=== PATIENT | female | born 1965 | race Caucasian/White ===

== ENCOUNTER 2017-05-26 09:18 | Day surgery (SDC) | payer OTHER ==
[2017-05-26] MEDS ORDERED: Sodium Chloride 0.9% 10 ML ONE (09:30)
[2017-05-26] MEDS ORDERED: Albumin 25% 200 ML ONE (11:00)
[2017-05-26 13:19] VITALS: BMI 25.3
[2017-05-26 13:27] VITALS: TEMP 97.8
[2017-05-26 13:29] VITALS: BP 88/55
--- NOTE | 2017-05-26 13:34 | ULT ---
ULTRASOUND GUIDED PARACENTESIS: HISTORY: Ascites. COMPARISON: 05/19/17. FINDINGS: Technically successful ultrasound paracentesis. A total of 5300 mL of yellow color ascites is remov ed. No immediate or post procedure complications. TECHNIQUE: Consent was obtained to perform an ultrasound-guided paracentesis. The right lower quadrant was amber med appropriate. The skin was prepped and draped in sterile fashion. 1% Lidocaine, buffered with s odium bicarbonate, was used for local anesthesia. Under ultrasound guidance, a 5 Estonian 7 cm Yueh c atheter was advanced into the peritoneal space. A total of 5,300 mL of yellow color ascites was asp irated. The patient tolerated the procedure well. No immediate or post procedure complications. IMPRESSION: Technically successful ultrasound-guided paracentesis. POS: [facility]
== END 2017-05-26 10:55 | disposition home or self-care (01) ==
LOC: ULT 09:18
PROVIDERS: ATTEND Internal Medicine Gastroenterology
PROC: 0W9G3ZX Drainage of Peritoneal Cavity, Percutaneous Approach, Diagnostic (ICD-10-PCS; principal; 2017-05-26)
DX: R18.8 Other ascites (principal); K74.60 Unspecified cirrhosis of liver; E11.9 Type 2 diabetes mellitus without complications; K72.90 Hepatic failure, unspecified without coma; J45.909 Unspecified asthma, uncomplicated; F17.210 Nicotine dependence, cigarettes, uncomplicated; Z88.2 Allergy status to sulfonamides; Z88.5 Allergy status to narcotic agent; Z88.0 Allergy status to penicillin; Z88.1 Allergy status to other antibiotic agents; Z79.899 Other long term (current) drug therapy; Z90.49 Acquired absence of other specified parts of digestive tract; Z90.89 Acquired absence of other organs; Z98.890 Other specified postprocedural states
CPT/HCPCS: 49083; A4216; P9047

== ENCOUNTER 2017-06-02 09:26 | Day surgery (SDC) | payer OTHER ==
[2017-06-01 13:53] VITALS: BMI 29.0
[~2017-06-02 09:26] MED LIST: FLU VACC QS2017-18 36 mo. & older 0.5 ML SYRINGE IM ONE
[2017-06-02] MEDS ORDERED: Albumin 25% 200 ML ONE (10:09)
[2017-06-02 12:01] VITALS: TEMP 97.7
[2017-06-02 12:04] VITALS: BP 92/56
--- NOTE | 2017-06-02 12:35 | ULT ---
ULTRASOUND-GUIDED PARACENTESIS: CLINICAL INDICATION: Ascites. PROCEDURE: After informed consent had been obtained, the patient was escorted to the ultrasound suite and place d in a supine position. The abdomen was imaged which revealed adequate ascites for the procedure. The skin of the abdomen was then prepped and draped in the standard sterile fashion and the skin nessa face, subcutaneous tissues, and peritoneal lining of the abdomen were anesthetized with 1% Lidocaine buffered with sodium bicarbonate. A left quadrant approach was selected. A small skin incision wa s made at the site of topical anesthesia. Subsequently, under real-time ultrasound guidance a iCenteraeh catheter was advanced through the incision site into the peritoneal cavity. Ascites was present at the catheter hub. The catheter was then secured to vacuum sealed sterile containers, via sterile tu jose r and subsequently 7 L of ascites was drained from the patient. The patient was then removed fro m the patient. The patient tolerated the procedure well without evidence of complication. Post pro cedure imaging revealed no complication and interval reduction in volume of ascites. The patient wa s monitored by a radiology nurse and was stable in condition. IMPRESSION: Technically successful ultrasound-guided paracentesis, as above. POS: [facility]
--- NOTE | 2017-06-02 12:38 | ULT ---
HEPATIC DOPPLER ULTRASOUND: Clinical history: Cirrhosis. FINDINGS: There is heterogenous echotexture of the hepatic parenchyma. No obvious focal hepatic lesion. The sp garrison is enlarged measuring 17 cm in length. There is evidence of intraabdominal ascites. Nodular, ci rrhotic morphology of the hepatic periphery is present. Gallbladder is surgically absent. Common polly t is normal at 5 mm. Doppler assessment shows appropriate directionality of flow and patency of hepa tic and portal venous system. IVC is patent. There is flow demonstrated within the hepatic and splen ic arteries. The region of the portal confluence as well as the abdominal aorta are obscured by kai l activity. IMPRESSION: 1. Cirrhotic morphology of the liver. 2. Patency and appropriate direction of flow of the hepatic and portal venous systems. 3. Ascites. 4. Splenomegaly indicative of portal hypertension. POS: [facility]
== END 2017-06-02 11:55 | disposition home or self-care (01) ==
LOC: ULT 09:26
PROVIDERS: ATTEND Internal Medicine Gastroenterology
PROC: 0W9G3ZX Drainage of Peritoneal Cavity, Percutaneous Approach, Diagnostic (ICD-10-PCS; principal; 2017-06-02)
DX: R18.8 Other ascites (principal); K74.60 Unspecified cirrhosis of liver; K72.90 Hepatic failure, unspecified without coma; N18.9 Chronic kidney disease, unspecified; K21.9 Gastro-esophageal reflux disease without esophagitis; J45.909 Unspecified asthma, uncomplicated; Z88.0 Allergy status to penicillin; Z88.5 Allergy status to narcotic agent; Z88.2 Allergy status to sulfonamides; Z88.1 Allergy status to other antibiotic agents; Z87.891 Personal history of nicotine dependence; Z79.899 Other long term (current) drug therapy; Z90.49 Acquired absence of other specified parts of digestive tract; Z98.890 Other specified postprocedural states; Z98.891 History of uterine scar from previous surgery
CPT/HCPCS: 49083; 76705; P9047

== ENCOUNTER → 2017-06-09 | Day surgery (SDC) | payer OTHER ==
[2017-06-08 08:27] VITALS: BMI 29.0
[~2017-06-09] MED LIST changes: +Albumin 25% 200 ML ONE
[2017-06-09 11:50] VITALS: TEMP 98.2
--- NOTE | 2017-06-09 13:32 | ULT ---
ULTRASOUND GUIDED PARACENTESIS THERAPEUTIC: 06/09/2017 HISTORY: A 51-year-old female with ascites due to cirrhosis. TECHNIQUE: Signed informed consent obtained. Four quadrant abdominal survey performed. Right lower quadrant s elected. Overlying skin prepared and draped in the usual sterile fashion. A 25 gauge needle was us ed to apply buffered Lidocaine superficially and deeply. A 5 Burundian Yueh catheter with stylet was a dvanced in tandem with the 25 gauge needle, into the peritoneal cavity. The 25 gauge needle and the stylet from the Yueh were removed. The Yueh catheter was connected to a series of evacuated bottle s via plastic tubing. A total of 6100 mL of nonhemorrhagic, straw-colored ascites fluid was drained . The Yueh catheter was removed. The patient tolerated the procedure well. No complications. FINDINGS: Prior to the procedure, a moderate to large amount of free intraperitoneal fluid is demonstrated. Th e post procedure single image of the right lower quadrant demonstrates no residual free fluid in vasile t location. IMPRESSION: Successful therapeutic paracentesis with drainage of 6.1 L of ascites fluid. POS: [facility]
== END ==
LOC: ULT 08:29
PROVIDERS: ATTEND Internal Medicine Gastroenterology
PROC: 0W9G3ZX Drainage of Peritoneal Cavity, Percutaneous Approach, Diagnostic (ICD-10-PCS; principal; 2017-06-09)
DX: R18.8 Other ascites (principal); K74.60 Unspecified cirrhosis of liver; F17.210 Nicotine dependence, cigarettes, uncomplicated; Z88.2 Allergy status to sulfonamides; Z88.5 Allergy status to narcotic agent; Z88.0 Allergy status to penicillin; Z88.1 Allergy status to other antibiotic agents; Z79.899 Other long term (current) drug therapy
CPT/HCPCS: 49083; P9047

== ENCOUNTER 2017-06-16 09:00 | Day surgery (SDC) | payer OTHER ==
[2017-06-16] MEDS ORDERED: Albumin 25% 200 ML ONE (11:25)
[2017-06-16] MEDS ORDERED: Sodium Chloride 0.9% 10 ML ONE (11:26)
[2017-06-16 11:59] VITALS: TEMP 97.6
[2017-06-16 12:01] VITALS: BMI 29.0
[2017-06-16 12:03] VITALS: BP 83/52
--- NOTE | 2017-06-16 13:42 | ULT ---
EXAM: ULTRASOUND GUIDED PARACENTESIS: HISTORY: Ascites. COMPARISON: 06/09/17. FINDINGS: Technically successful ultrasound-guided paracentesis. A total of 6,600 mL of yellow-colored ascite s was aspirated. The patient tolerated the procedure well. No immediate or postprocedure complicat ions. TECHNIQUE: Consent was obtained to perform an ultrasound-guided paracentesis. The patient's abdomen was evalua cassie. The right lower quadrant was deemed appropriate. The skin was prepped and draped in sterile f ashion. 1% Lidocaine, buffered with sodium bicarbonate, was used for local anesthesia. Under ultra sound guidance, a 7 cm 5 Macedonian InferXeh catheter was advanced into the peritoneal space. Via vacuum geovani ttles, a total of 6,600 mL of yellow-colored ascites was aspirated. The patient tolerated the proce dure well. No immediate or postprocedure complications. IMPRESSION: Technically successful ultrasound-guided paracentesis. POS: [facility]
[2017-06-16] MEDS ORDERED: FLU VACC QS2017-18 36 mo. & older 0.5 ML SYRINGE IM ONE (14:00)
== END 2017-06-16 11:10 | disposition home or self-care (01) ==
LOC: ULT 09:00
PROVIDERS: ATTEND Internal Medicine Gastroenterology
PROC: 0W9G3ZX Drainage of Peritoneal Cavity, Percutaneous Approach, Diagnostic (ICD-10-PCS; principal; 2017-06-16)
DX: R18.8 Other ascites (principal); K74.60 Unspecified cirrhosis of liver; K72.90 Hepatic failure, unspecified without coma; Z88.2 Allergy status to sulfonamides; Z88.5 Allergy status to narcotic agent; Z88.0 Allergy status to penicillin; Z88.1 Allergy status to other antibiotic agents; Z79.899 Other long term (current) drug therapy; Z87.891 Personal history of nicotine dependence
CPT/HCPCS: 49083; 90471; 90682; A4216; G0008; P9047; Q2036

== ENCOUNTER 2017-06-23 08:46 | Day surgery (SDC) | payer OTHER ==
[2017-06-23 08:50] LABS: PTT 36.2 SEC (22.9-36.1); Prothrombin Time 14.9 SEC (12.0-14.7)
[2017-06-23 08:52] LABS: Hematocrit 36.5 % (36.0-47.0); Mean Platelet Volume 7.7 fL (7.4-10.4); Red Blood Cell (RBC) Count 4.07 mill/uL (4.20-5.40); White Blood Cell (WBC) Count 3.7 thou/uL (4.8-10.8)
[2017-06-23 09:04] LABS: Band 4 % (5-11); Neutrophil 54 % (42-75); Reactive Lymphocytes 10 % (0-10)
[2017-06-23] MEDS ORDERED: Albumin 25% 200 ML ONE (09:33)
[2017-06-23 12:41] VITALS: BP 91/59; TEMP 98.4; BMI 26.6
--- NOTE | 2017-06-23 13:11 | ULT ---
ULTRASOUND GUIDED PARACENTESIS: History: Ascites. Comparison: 06-16-17 FINDINGS: Technically successful ultrasound guided paracentesis. A total of 5800 ml of yellow colored ascites was aspirated. There were no immediate or post procedure complications. Technique: Consent obtained to perform a ultrasound guided paracentesis. Patient's abdomen was evaluated. Left lower quadrant was deemed appropriate. Skin was prepped and draped in sterile fashion. 1% Lidocaine, buffered with sodium bicarbonate used for local anesthesia. Under ultrasound guidance, a 5 Romanian 7 cm [place] catheter was advanced into the peritoneal space. Via vacuum bottles a total of 5800 ml of y ellow colored ascites was aspirated. Patient tolerated the procedure well. No immediate or post proc edure complications. IMPRESSION: Successful ultrasound guided paracentesis. POS: [facility]
== END 2017-06-23 11:10 | disposition home or self-care (01) ==
LOC: ULT 08:46
PROVIDERS: ATTEND Internal Medicine Gastroenterology
PROC: 0W9G3ZX Drainage of Peritoneal Cavity, Percutaneous Approach, Diagnostic (ICD-10-PCS; principal; 2017-06-23)
DX: R18.8 Other ascites (principal); K74.60 Unspecified cirrhosis of liver; K72.90 Hepatic failure, unspecified without coma; Z88.2 Allergy status to sulfonamides; Z88.5 Allergy status to narcotic agent; Z88.0 Allergy status to penicillin; Z88.1 Allergy status to other antibiotic agents; Z87.891 Personal history of nicotine dependence; Z79.899 Other long term (current) drug therapy
CPT/HCPCS: 36415; 49083; 85025; 85610; 85730; P9047

== ENCOUNTER → 2017-06-30 | Day surgery (SDC) | payer OTHER ==
[2017-06-29 09:38] VITALS: BMI 29.0
--- NOTE | 2017-06-30 11:44 | ULT ---
ABDOMINAL PARACENTESIS WITH ULTRASOUND GUIDANCE: Indication: Cirrhosis with recurrent ascites. FINDINGS: 9 L of yellowish color acidic fluid removed from the right lower quadrant. Post procedure ultrasound shows mild residual ascites. PROCEDURE NOTE: Four quadrant ultrasound shows large ascites in all quadrants. Right lower quadrant chosen for punct ure. Overlying skin prepped and draped in sterile manner. Local anesthesia was administered with Lid ocaine. 5 Pakistani Yueh catheter with needle in place was placed into the fluid in the right lower abd omen with ultrasound guidance. The catheter is connected to suction drainage. 9 L of fluid removed. There were no problems or complications. POS: [facility]
[2017-07-01 06:52] VITALS: TEMP 98.4
== END ==
LOC: ULT 08:31
PROVIDERS: ATTEND Internal Medicine Gastroenterology
PROC: 0W9G3ZX Drainage of Peritoneal Cavity, Percutaneous Approach, Diagnostic (ICD-10-PCS; principal; 2017-06-30)
DX: K74.60 Unspecified cirrhosis of liver (principal); R18.8 Other ascites; K72.90 Hepatic failure, unspecified without coma; Z88.5 Allergy status to narcotic agent; Z88.0 Allergy status to penicillin; Z88.2 Allergy status to sulfonamides; Z88.1 Allergy status to other antibiotic agents; Z79.899 Other long term (current) drug therapy; Z87.891 Personal history of nicotine dependence
CPT/HCPCS: 49083; P9047

== ENCOUNTER → 2017-07-14 | Day surgery (SDC) | payer OTHER ==
[~2017-07-14] MED LIST changes: -FLU VACC QS2017-18 36 mo. & older 0.5 ML SYRINGE IM ONE
--- NOTE | 2017-07-14 16:17 | ULT ---
ULTRASOUND GUIDED PARACENTESIS 07/14/17 HISTORY: Cirrhosis and refractory ascites. After informed consent was obtained, the patient was prepped and draped in normal sterile fashion. P ocket of fluid in the left lower quadrant of the abdomen was localized under ultrasound guidance. Loc al anesthesia obtained with 1% Xylocaine mixed with sodium bicarb. A small skin incision was made wit h a #11 scalpel blade. A 6 Yi Yueh catheter was introduced under ultrasound guidance. Approximate ly 6.7 liters of typical straw colored ascites was obtained. Patient tolerated the procedure well. Th ere were no immediate complications. IMPRESSION: Successful ultrasound guided paracentesis with 6.7 liters of fluid. POS: [facility]
== END ==
LOC: ULT 09:50
PROVIDERS: ATTEND Internal Medicine Gastroenterology
PROC: BW40ZZZ Ultrasonography of Abdomen (ICD-10-PCS; principal; 2017-07-14)
PROC: 0W9G3ZZ Drainage of Peritoneal Cavity, Percutaneous Approach (ICD-10-PCS; principal; 2017-07-14)
DX: K74.60 Unspecified cirrhosis of liver (principal); R18.8 Other ascites; K72.90 Hepatic failure, unspecified without coma; Z79.2 Long term (current) use of antibiotics; Z79.899 Other long term (current) drug therapy; Z88.1 Allergy status to other antibiotic agents; Z88.5 Allergy status to narcotic agent; Z88.0 Allergy status to penicillin; Z88.2 Allergy status to sulfonamides; Z87.891 Personal history of nicotine dependence
CPT/HCPCS: 49083; P9047

== ENCOUNTER 2017-07-21 09:36 | Day surgery (SDC) | payer OTHER ==
[2017-07-21] MEDS ORDERED: Albumin 25% 200 ML ONE (09:46)
[2017-07-21] MEDS ORDERED: Sodium Chloride 0.9% 10 ML ONE (09:46)
[2017-07-21 13:12] VITALS: TEMP 97.7
[2017-07-21 13:14] VITALS: BMI 29.0
[2017-07-21 13:16] VITALS: BP 93/55
--- NOTE | 2017-07-21 13:39 | ULT ---
SONOGRAPHICALLY GUIDED PARACENTESIS: History: Recurrent ascites. FINDINGS: After explaining the procedure and answering all questions, the right abdomen was prepped and draped in the usual sterile fashion. Sterile technique, buffered local anesthesia, sonographic guidance and right lateral approach were used to carefully advance a 19 gauge Yueh needle and catheter into the fr ee fluid. Catheter was left to drain a total volume of 8.0 L clear yellow liquid. Post procedure imag ing shows minimal residual fluid. Patient tolerated the procedure well and was dismissed in good cond ition. IMPRESSION: Technically successful sonographic guided paracentesis. Pathology is pending. POS: [facility]
[2017-07-21] MEDS ORDERED: FLU VACC QS2017-18 36 mo. & older 0.5 ML SYRINGE IM ONE (13:45)
== END 2017-07-21 11:35 | disposition home or self-care (01) ==
LOC: ULT 09:36
PROVIDERS: ATTEND Internal Medicine Gastroenterology
PROC: BW40ZZZ Ultrasonography of Abdomen (ICD-10-PCS; principal; 2017-07-21)
PROC: 0W9G3ZZ Drainage of Peritoneal Cavity, Percutaneous Approach (ICD-10-PCS; principal; 2017-07-21)
DX: K74.60 Unspecified cirrhosis of liver (principal); R18.8 Other ascites; K21.9 Gastro-esophageal reflux disease without esophagitis; J45.909 Unspecified asthma, uncomplicated; M48.00 Spinal stenosis, site unspecified; F32.9 Major depressive disorder, single episode, unspecified; F41.9 Anxiety disorder, unspecified; Z79.2 Long term (current) use of antibiotics; Z79.899 Other long term (current) drug therapy; Z88.1 Allergy status to other antibiotic agents; Z88.5 Allergy status to narcotic agent; Z88.0 Allergy status to penicillin; Z88.2 Allergy status to sulfonamides; Z90.89 Acquired absence of other organs; Z90.49 Acquired absence of other specified parts of digestive tract; Z98.890 Other specified postprocedural states; Z87.891 Personal history of nicotine dependence
CPT/HCPCS: 49083; A4216; P9047

== ENCOUNTER 2017-07-28 09:06 | Day surgery (SDC) | payer OTHER ==
[~2017-07-28 09:06] MED LIST changes: -Albumin 25% 200 ML ONE; +FLU VACC QS2017-18 36 mo. & older 0.5 ML SYRINGE IM ONE
[2017-07-28 09:27] LABS: #Eosinphils 0.2 thou/uL (0.0-0.7); #Lymphocytes 0.6 thou/uL (1.20-3.40); #Monocytes 0.5 thou/uL (0.11-0.59); %Basophils 0.4 % (0.0-1.0); %Eosinophils 5.1 % (0.0-10.0); %Lymphocytes 13.6 % (21.0-51.0); %Monocytes 11.7 % (0.0-10.0); Hematocrit 35.1 % (36.0-47.0); Mean Platelet Volume 7.4 fL (7.4-10.4); Red Blood Cell (RBC) Count 3.89 mill/uL (4.20-5.40); White Blood Cell (WBC) Count 4.3 thou/uL (4.8-10.8)
[2017-07-28] MEDS ORDERED: Albumin 25% 200 ML ONE (09:29)
[2017-07-28 09:33] LABS: PTT 38.4 SEC (22.9-36.1); Prothrombin Time 13.8 SEC (12.0-14.7)
[2017-07-28] MEDS ORDERED: Sodium Bicarbonate 2.4 MEQ/5 ML ONE (10:20)
[2017-07-28 11:51] VITALS: BP 89/60; TEMP 97.8
--- NOTE | 2017-07-28 13:38 | ULT ---
ULTRAASOUND GUIDED PARACENTESIS THERAPEUTIC: Date: 07/28/17 HISTORY: 51-year-old female with ascites due to cirrhosis, causing abdominal distention and discomfort. TECHNIQUE: Signed, informed consent obtained. Ultrasound survey of all four quadrants of the abdominal cavity. R ight lower quadrant selected. Overlying skin of right lower quadrant prepped and draped in the usual sterile fashion. 25 gauge needle used to apply buffered lidocaine superficially and deeply. 5 Citizen Of [place] Yueh catheter with stylette advanced in tandem with the 25 gauge needle into the peritoneal cavity. T he 25 gauge and stylette of Yueh catheter were removed. Yueh catheter connected to a series of evacua cassie bottles via plastic tubing. After drainage, Yueh catheter was removed. The patient tolerated the procedure well. No complications. FINDINGS: Images prior to the procedure demonstrate moderate volume of ascites. Post drainage image of right lo wer quadrant demonstrates no residual fluid in the right lower quadrant. A total of 7,100 mL liters o f mildly blood-tinged fluid was drained. IMPRESSION: 1. Successful drainage of 7.1 liters of ascites. 2. The ascites fluid was slightly hemorrhagic today. POS: [facility]
== END 2017-07-28 11:05 | disposition home or self-care (01) ==
LOC: ULT 09:06
PROVIDERS: ATTEND Internal Medicine Gastroenterology
PROC: 0W9G3ZZ Drainage of Peritoneal Cavity, Percutaneous Approach (ICD-10-PCS; principal; 2017-07-28)
PROC: BW40ZZZ Ultrasonography of Abdomen (ICD-10-PCS; principal; 2017-07-28)
DX: K74.60 Unspecified cirrhosis of liver (principal); R18.8 Other ascites; K72.90 Hepatic failure, unspecified without coma; K21.9 Gastro-esophageal reflux disease without esophagitis; J45.909 Unspecified asthma, uncomplicated; F41.9 Anxiety disorder, unspecified; F32.9 Major depressive disorder, single episode, unspecified; Z79.2 Long term (current) use of antibiotics; Z79.899 Other long term (current) drug therapy; Z88.1 Allergy status to other antibiotic agents; Z88.5 Allergy status to narcotic agent; Z88.0 Allergy status to penicillin; Z88.2 Allergy status to sulfonamides; Z90.49 Acquired absence of other specified parts of digestive tract; Z90.89 Acquired absence of other organs; Z98.890 Other specified postprocedural states; Z87.891 Personal history of nicotine dependence
CPT/HCPCS: 36415; 49083; 85025; 85610; 85730; P9047

== ENCOUNTER 2017-08-04 09:23 | Day surgery (SDC) | payer OTHER ==
[2017-08-04] MEDS ORDERED: Sodium Bicarbonate 2.4 MEQ/5 ML ONE (10:58)
[2017-08-04] MEDS ORDERED: Lidocaine 1% MPF 2 ML VIAL ONE (10:59)
[2017-08-04] MEDS ORDERED: Albumin 25% 200 ML ONE (11:52)
[2017-08-04 12:04] VITALS: BMI 29.0
[2017-08-04 12:11] VITALS: TEMP 97.6
--- NOTE | 2017-08-04 13:59 | ULT ---
ULTRASOUND GUIDED PARACENTESIS: INDICATION: Ascites, therapeutic paracentesis. TECHNIQUE: Informed consent was obtained. Ultrasound survey demonstrated a prominent amount of ascitic fluid wi thin the peritoneal cavity. A site overlying the right lower quadrant was marked. The site was prep ped and draped in the usual sterile fashion. Buffered 1% Lidocaine was administered to the overlying subcutaneous tissues in abdominal wall. Under ultrasound guidance, a 5 Azeri Yueh catheter was jordana ded down into the largest collection in the right lower quadrant. Eight liters of normal-appearing p eritoneal fluid was removed. IMPRESSION: Successful paracentesis with removal of 8 L of normal-appearing peritoneal fluid. POS: [facility]
== END 2017-08-04 11:45 | disposition home or self-care (01) ==
LOC: ULT 09:23
PROVIDERS: ATTEND Internal Medicine Gastroenterology
PROC: BW40ZZZ Ultrasonography of Abdomen (ICD-10-PCS; principal; 2017-08-04)
PROC: 0W9G3ZX Drainage of Peritoneal Cavity, Percutaneous Approach, Diagnostic (ICD-10-PCS; principal; 2017-08-04)
DX: K74.60 Unspecified cirrhosis of liver (principal); R18.8 Other ascites; K72.90 Hepatic failure, unspecified without coma; Z88.2 Allergy status to sulfonamides; Z88.5 Allergy status to narcotic agent; Z88.0 Allergy status to penicillin; Z88.1 Allergy status to other antibiotic agents; Z79.899 Other long term (current) drug therapy; Z87.891 Personal history of nicotine dependence
CPT/HCPCS: 49083; P9047

== ENCOUNTER 2017-08-11 08:54 | Day surgery (SDC) | payer OTHER ==
[2017-08-11] MEDS ORDERED: Albumin 25% 200 ML ONE (10:24)
[2017-08-11] MEDS ORDERED: Sodium Bicarbonate 2.4 MEQ/5 ML ONE (10:24)
[2017-08-11 12:24] VITALS: BP 104/66; TEMP 98.6
--- NOTE | 2017-08-11 15:49 | ULT ---
ULTRASOUND GUIDED PARACENTESIS: Date: 08-11-17 History: Ascites. Technique: The procedure including risks and complications were explained to the patient and informed consent wa s obtained. Patient was placed on the sonography table in the supine position. An appropriate access site was marked and the area was then meticulously prepped and draped in the usual sterile fashion. S kin and subcutaneous tissues were infiltrated with buffered 1% Lidocaine for local anesthesia. Small skin incision was made. Utilizing concurrent real-time ultrasound guidance a 19 gauge [employer] need le with 5 Palestinian sheath was advanced into the abdomen. After return of fluid, the sheath was advanced and the needle was removed. Approximately 8 mm of cloudy pato fluid was aspirated. Patient was admi nistered albumin during the examination intravenously as requested. Post paracentesis images demonstr ate resolution of the intraperitoneal free fluid. Patient tolerated the procedure well and without immediate complication. Dry sterile dressing was kellie antonietta at the puncture site. Patient was further monitored in the Radiology Nurses Holding Area prior to discharged. IMPRESSION: Technically successful ultrasound guided paracentesis. POS: [facility]
== END 2017-08-11 12:10 | disposition home or self-care (01) ==
LOC: ULT 08:54
PROVIDERS: ATTEND Internal Medicine Gastroenterology
PROC: 0W9G3ZZ Drainage of Peritoneal Cavity, Percutaneous Approach (ICD-10-PCS; principal; 2017-08-11)
PROC: BW40ZZZ Ultrasonography of Abdomen (ICD-10-PCS; principal; 2017-08-11)
DX: K74.60 Unspecified cirrhosis of liver (principal); R18.8 Other ascites; K72.90 Hepatic failure, unspecified without coma; Z88.0 Allergy status to penicillin; Z88.1 Allergy status to other antibiotic agents; Z88.2 Allergy status to sulfonamides; Z88.5 Allergy status to narcotic agent; Z87.891 Personal history of nicotine dependence; Z79.899 Other long term (current) drug therapy
CPT/HCPCS: 49083; P9047

== ENCOUNTER 2017-08-18 08:23 | Day surgery (SDC) | payer OTHER ==
[2017-08-17 09:41] VITALS: BMI 29.0
[2017-08-18] MEDS ORDERED: Lidocaine 1% MPF 2 ML VIAL ONE (08:29)
[2017-08-18] MEDS ORDERED: Albumin 25% 200 ML ONE (08:29)
[2017-08-18] MEDS ORDERED: Lidocaine 1% PF 5 ML VIAL ONE (08:30)
[2017-08-18] MEDS ORDERED: FLU VACC QS2017-18 36 mo. & older 0.5 ML SYRINGE IM ONE (09:00)
[2017-08-18 10:19] VITALS: TEMP 97.6
--- NOTE | 2017-08-18 11:22 | ULT ---
ULTRASOUND GUIDED PARACENTESIS THERAPEUTIC: Date: 08-18-17 History: 51-year-old female with abdominal distention due to ascites due to cirrhosis. Technique: Signed informed consent obtained. Ultrasound survey of all four quadrants of the abdominal cavity. Le ft lower quadrant selected. Left lower quadrant skin was prepped and draped in the usual fashion. 25 gauge needle used to apply buffered Lidocaine superficially and deeply. 5 Wolof Yueh catheter with s tylet advanced in tandem with the 25 gauge needle into the pocket of free fluid. 25 gauge needle and stylet removed. Yueh catheter connected to a series of evacuated bottles via plastic tubing. After dr singh, catheter was removed. Patient tolerated the procedure well. No complication. FINDINGS: Large pockets of free fluid in all four quadrants prior to the procedure. A total of 7900 ml of nonhe morrhagic, straw color fluid was drained. Post drainage image of left lower quadrant still demonstrat es a moderate to large volume of residual fluid. IMPRESSION: Successful paracentesis, with drainage of 7.9 L of ascites fluid. POS: [facility]
== END 2017-08-18 10:00 | disposition home or self-care (01) ==
LOC: ULT 08:23
PROVIDERS: ATTEND Internal Medicine Gastroenterology
PROC: 0W9G3ZX Drainage of Peritoneal Cavity, Percutaneous Approach, Diagnostic (ICD-10-PCS; principal; 2017-08-18)
DX: K74.60 Unspecified cirrhosis of liver (principal); R18.8 Other ascites; K72.90 Hepatic failure, unspecified without coma; Z88.2 Allergy status to sulfonamides; Z88.5 Allergy status to narcotic agent; Z88.0 Allergy status to penicillin; Z88.1 Allergy status to other antibiotic agents; Z88.8 Allergy status to other drugs, medicaments and biological substances; Z87.891 Personal history of nicotine dependence
CPT/HCPCS: 49083; J2001; P9047

== ENCOUNTER 2017-08-25 09:23 | Day surgery (SDC) | payer OTHER ==
[2017-08-20 13:46] VITALS: BMI 29.0
[2017-08-25] MEDS ORDERED: Albumin 25% 200 ML ONE (09:32)
--- NOTE | 2017-08-25 10:57 | ULT ---
SONOGRAPHIC GUIDED PARACENTESIS: History: Recurring ascites. Liver disease. FINDINGS: After explaining the procedure and answering all questions, the anterior aspect of the right lower qu adrant were prepped and draped in the usual sterile fashion. Sterile technique, buffered local anesth esia, sonographic guidance and an anterior right lower quadrant approach were used to carefully advan ce a 19 gauge Yueh needle and catheter into the free fluid. Catheter was left to drain a total volume of 8.7 L cloudy yellow liquid. Catheter was removed. Post procedure imaging shows minimal residual f luid. Patient tolerated the procedure well and was discharged in good condition. IMPRESSION: Technically successful sonographic guided paracentesis. POS: [facility]
[2017-08-25 11:18] VITALS: BP 91/63; TEMP 97.8
== END 2017-08-25 11:10 | disposition home or self-care (01) ==
LOC: ULT 09:23
PROVIDERS: ATTEND Internal Medicine Gastroenterology
PROC: 0W9G3ZX Drainage of Peritoneal Cavity, Percutaneous Approach, Diagnostic (ICD-10-PCS; principal; 2017-08-25)
DX: K74.60 Unspecified cirrhosis of liver (principal); R18.8 Other ascites; K21.9 Gastro-esophageal reflux disease without esophagitis; R16.0 Hepatomegaly, not elsewhere classified; K72.90 Hepatic failure, unspecified without coma; K58.9 Irritable bowel syndrome, unspecified; R16.1 Splenomegaly, not elsewhere classified; J45.909 Unspecified asthma, uncomplicated; E11.9 Type 2 diabetes mellitus without complications; I10 Essential (primary) hypertension; M19.90 Unspecified osteoarthritis, unspecified site; F41.9 Anxiety disorder, unspecified; Z88.0 Allergy status to penicillin; Z88.1 Allergy status to other antibiotic agents; Z88.5 Allergy status to narcotic agent; Z88.2 Allergy status to sulfonamides; Z79.899 Other long term (current) drug therapy; Z90.49 Acquired absence of other specified parts of digestive tract; Z98.51 Tubal ligation status; Z98.890 Other specified postprocedural states; Z87.891 Personal history of nicotine dependence; Z87.19 Personal history of other diseases of the digestive system
CPT/HCPCS: 49083; 90471; 90682; G0008; P9047; Q2036

== ENCOUNTER 2017-09-01 09:17 | Day surgery (SDC) | payer OTHER ==
[2017-08-31 14:11] VITALS: BMI 29.0
[2017-09-01 09:34] LABS: Hemoglobin 11.1 g/dL (12.0-16.0); Mean Corpuscular HGB CONC 32.8 g/dL (32.0-36.0); Mean Corpuscular Hemoglobin 29.4 pg (27.0-31.0); Mean Corpuscular Volume 89.7 fl (81.0-99.0); Platelet Count 88 thou/uL (130-400); RBC Distribution Width 12.7 % (11.5-14.5); Red Blood Cell (RBC) Count 3.76 mill/uL (4.20-5.40); White Blood Cell (WBC) Count 3.9 thou/uL (4.8-10.8)
[2017-09-01] MEDS ORDERED: Albumin 25% 200 ML ONE (09:34)
[2017-09-01 09:35] LABS: INR-International Normal Ratio 1.1; PTT 38.1 SEC (22.9-36.1); Prothrombin Time 14.4 SEC (12.0-14.7)
--- NOTE | 2017-09-01 11:34 | ULT ---
ULTRASOUND GUIDED PARACENTESIS: History: Ascites. Comparison: 08-25-17 FINDINGS: Patient was brought to the ultrasound suite. All questions were answered. The patient's right lower quadrant was prepped and draped in normal sterile fashion after time out wa s performed and informed consent was obtained. 3 ml of Lidocaine was administered to the deep soft ti ssues. After local anesthesia, a small dermatomy was made. Using a 5 Malian Yueh needle the peritonea l space was accessed. 7800 ml straw colored fluid was aspirated. IMPRESSION: Technically successful right lower quadrant ultrasound guided paracentesis. POS: [facility]
[2017-09-01 14:24] VITALS: BP 97/62; TEMP 98.2
== END 2017-09-01 11:15 | disposition home or self-care (01) ==
LOC: ULT 09:17
PROVIDERS: ATTEND Internal Medicine Gastroenterology
PROC: 0W9G3ZX Drainage of Peritoneal Cavity, Percutaneous Approach, Diagnostic (ICD-10-PCS; principal; 2017-09-01)
DX: K74.60 Unspecified cirrhosis of liver (principal); R18.8 Other ascites; K21.9 Gastro-esophageal reflux disease without esophagitis; K76.0 Fatty (change of) liver, not elsewhere classified; K72.90 Hepatic failure, unspecified without coma; R16.1 Splenomegaly, not elsewhere classified; J45.909 Unspecified asthma, uncomplicated; E11.9 Type 2 diabetes mellitus without complications; M19.90 Unspecified osteoarthritis, unspecified site; I10 Essential (primary) hypertension; Z88.0 Allergy status to penicillin; Z88.1 Allergy status to other antibiotic agents; Z88.5 Allergy status to narcotic agent; Z88.2 Allergy status to sulfonamides; Z79.899 Other long term (current) drug therapy; Z90.49 Acquired absence of other specified parts of digestive tract; Z98.51 Tubal ligation status; Z98.890 Other specified postprocedural states; Z87.19 Personal history of other diseases of the digestive system; Z87.891 Personal history of nicotine dependence
CPT/HCPCS: 36415; 49083; 85027; 85610; 85730; P9047

== ENCOUNTER 2017-09-08 09:27 | Day surgery (SDC) | payer OTHER ==
[2017-09-08] MEDS ORDERED: Albumin 25% 200 ML ONE (09:42)
[2017-09-08 11:44] VITALS: BP 93/61; TEMP 98; BMI 26.6
--- NOTE | 2017-09-08 13:52 | ULT ---
ULTRASOUND-GUIDED PARACENTESIS: CLINICAL INDICATION: Ascites. PROCEDURE: After informed consent had been obtained, the patient was escorted to the ultrasound suite and placed in a supine position. The abdomen was imaged which revealed adequate ascites for the procedure. Th e skin of the abdomen was then prepped and draped in the standard sterile fashion and the skin surfac e, subcutaneous tissues, and peritoneal lining of the abdomen were anesthetized with 1% Lidocaine buf fered with sodium bicarbonate. A right lower quadrant approach was selected. A small skin incision was made at the site of topical anesthesia. Subsequently, under real-time ultrasound guidance a [place] catheter was advanced through the incision site into the peritoneal cavity. Ascites was present at the catheter hub. The catheter was then secured to vacuum sealed sterile containers, via sterile tub ing and subsequently 6.6 L of clear yellow ascites was drained from the patient. The catheter was th en removed from the patient. The patient tolerated the procedure well without evidence of complicati on. Postprocedure imaging revealed no complication and interval reduction in volume of ascites. The patient was monitored by a radiology nurse and was stable in condition. IMPRESSION: Technically successful ultrasound-guided paracentesis, as above. POS: [facility]
== END 2017-09-08 11:15 | disposition home or self-care (01) ==
LOC: ULT 09:27
PROVIDERS: ATTEND Internal Medicine Gastroenterology
PROC: 0W9G3ZX Drainage of Peritoneal Cavity, Percutaneous Approach, Diagnostic (ICD-10-PCS; principal; 2017-09-08)
DX: K74.60 Unspecified cirrhosis of liver (principal); R18.8 Other ascites; K21.9 Gastro-esophageal reflux disease without esophagitis; K76.0 Fatty (change of) liver, not elsewhere classified; R16.1 Splenomegaly, not elsewhere classified; K72.90 Hepatic failure, unspecified without coma; K58.9 Irritable bowel syndrome, unspecified; J45.909 Unspecified asthma, uncomplicated; E11.9 Type 2 diabetes mellitus without complications; I10 Essential (primary) hypertension; M19.90 Unspecified osteoarthritis, unspecified site; Z88.5 Allergy status to narcotic agent; Z88.0 Allergy status to penicillin; Z88.1 Allergy status to other antibiotic agents; Z88.2 Allergy status to sulfonamides; Z79.899 Other long term (current) drug therapy; Z98.890 Other specified postprocedural states; Z87.891 Personal history of nicotine dependence; Z87.19 Personal history of other diseases of the digestive system
CPT/HCPCS: 49083; P9047

== ENCOUNTER 2017-09-15 09:30 | Day surgery (SDC) | payer OTHER ==
[2017-09-14 10:02] VITALS: BMI 29.0
[2017-09-15] MEDS ORDERED: Albumin 25% 200 ML ONE (09:45)
--- NOTE | 2017-09-15 12:12 | ULT ---
ULTRASOUND-GUIDED PARACENTESIS: CLINICAL INDICATION: Ascites. PROCEDURE: After informed consent had been obtained, the patient was escorted to the ultrasound suite and placed in a supine position. The abdomen was imaged which revealed adequate ascites for the procedure. Th e skin of the abdomen was then prepped and draped in the standard sterile fashion and the skin surfac e, subcutaneous tissues, and peritoneal lining of the abdomen were anesthetized with 1% Lidocaine buf fered with sodium bicarbonate. A left lower quadrant approach was selected. A small skin incision w as made at the site of topical anesthesia. Subsequently, under real-time ultrasound guidance a Kiind.me catheter was advanced through the incision site into the peritoneal cavity. Ascites was present at t he catheter hub. The catheter was then secured to vacuum sealed sterile containers, via sterile tubi ng and subsequently 8.6 L of clear yellow ascites was drained from the patient. The patient was then removed from the patient. The patient tolerated the procedure well without evidence of complication . Post-procedure imaging revealed no complication and interval reduction in volume of ascites. The patient was monitored by a radiology nurse and was stable in condition. IMPRESSION: Technically successful ultrasound-guided paracentesis, as above. POS: [facility]
[2017-09-15 12:27] VITALS: BP 102/60; TEMP 98.3
== END 2017-09-15 11:20 | disposition home or self-care (01) ==
LOC: ULT 09:30
PROVIDERS: ATTEND Internal Medicine Gastroenterology
PROC: 0W9G3ZX Drainage of Peritoneal Cavity, Percutaneous Approach, Diagnostic (ICD-10-PCS; principal; 2017-09-15)
DX: K74.60 Unspecified cirrhosis of liver (principal); R18.8 Other ascites; K21.9 Gastro-esophageal reflux disease without esophagitis; K76.0 Fatty (change of) liver, not elsewhere classified; R16.0 Hepatomegaly, not elsewhere classified; K72.90 Hepatic failure, unspecified without coma; R16.1 Splenomegaly, not elsewhere classified; J45.909 Unspecified asthma, uncomplicated; F41.9 Anxiety disorder, unspecified; I10 Essential (primary) hypertension; M19.90 Unspecified osteoarthritis, unspecified site; E11.9 Type 2 diabetes mellitus without complications; Z88.5 Allergy status to narcotic agent; Z88.0 Allergy status to penicillin; Z88.1 Allergy status to other antibiotic agents; Z79.899 Other long term (current) drug therapy; Z98.51 Tubal ligation status; Z90.49 Acquired absence of other specified parts of digestive tract; Z98.890 Other specified postprocedural states; Z98.891 History of uterine scar from previous surgery; Z87.891 Personal history of nicotine dependence; Z83.79 Family history of other diseases of the digestive system
CPT/HCPCS: 49083; P9047

== ENCOUNTER 2017-09-22 09:08 | Day surgery (SDC) | payer OTHER ==
[2017-09-22] MEDS ORDERED: Albumin 25% 200 ML ONE (11:08)
[2017-09-22 11:17] VITALS: BMI 29.0
[2017-09-22 11:22] VITALS: TEMP 97.6
--- NOTE | 2017-09-22 12:22 | ULT ---
SONOGRAPHIC GUIDED PARACENTESIS: HISTORY: Recurrent ascites. FINDINGS: After explaining the procedure and answering all questions, sonographic survey showed a large amount of free fluid throughout the abdomen. Sterile technique, buffered local anesthesia, sonographic guid ance, and a left abdominal anterior approach were used to carefully advance the tip of a 19 gauge Yakelin h needle and catheter into the free fluid. The catheter was left to drain a total volume of 8.45 mL of slightly cloudy, yellow liquid. The catheter was removed. Minimal fluid remained. The patient t olerated the procedure well and was dismissed in good condition. IMPRESSION: Technically successful sonographic guided paracentesis. POS: [facility]
== END 2017-09-22 10:55 | disposition home or self-care (01) ==
LOC: ULT 09:08
PROVIDERS: ATTEND Internal Medicine Gastroenterology
PROC: 0W9G3ZX Drainage of Peritoneal Cavity, Percutaneous Approach, Diagnostic (ICD-10-PCS; principal; 2017-09-22)
DX: K74.60 Unspecified cirrhosis of liver (principal); R18.8 Other ascites; K21.9 Gastro-esophageal reflux disease without esophagitis; K76.0 Fatty (change of) liver, not elsewhere classified; R16.0 Hepatomegaly, not elsewhere classified; R16.1 Splenomegaly, not elsewhere classified; J45.909 Unspecified asthma, uncomplicated; F41.9 Anxiety disorder, unspecified; E11.9 Type 2 diabetes mellitus without complications; I10 Essential (primary) hypertension; M19.90 Unspecified osteoarthritis, unspecified site; K58.9 Irritable bowel syndrome, unspecified; Z88.5 Allergy status to narcotic agent; Z88.0 Allergy status to penicillin; Z88.2 Allergy status to sulfonamides; Z88.1 Allergy status to other antibiotic agents; Z79.899 Other long term (current) drug therapy; Z90.49 Acquired absence of other specified parts of digestive tract; Z98.890 Other specified postprocedural states; Z98.891 History of uterine scar from previous surgery; Z87.891 Personal history of nicotine dependence; Z83.79 Family history of other diseases of the digestive system
CPT/HCPCS: 49083; P9047

== ENCOUNTER 2017-09-24 13:50 | Observation (INO) | payer OTHER ==
[2017-09-24] MEDS ORDERED: ISOVUE-370 76%-LOCM 1 ML ONE (14:16)
[2017-09-24] MEDS ORDERED: Iopamidol 370 76% 50 ML VIAL FS ONE (14:16)
[2017-09-24 16:50] LABS: #Eosinphils 0.2 thou/uL (0.0-0.7); #Lymphocytes 0.5 thou/uL (1.20-3.40); #Monocytes 0.4 thou/uL (0.11-0.59); #Neutrophils 3.1 thou/uL (1.40-6.50); %Basophils 0.8 % (0.0-1.0); %Eosinophils 4.1 % (0.0-10.0); %Lymphocytes 10.5 % (21.0-51.0); %Monocytes 10.4 % (0.0-10.0); %Neutrophils 74.2 % (42.0-75.0); Hemoglobin 11.2 g/dL (12.0-16.0); Mean Corpuscular HGB CONC 32.7 g/dL (32.0-36.0); Mean Corpuscular Hemoglobin 29.1 pg (27.0-31.0); Mean Corpuscular Volume 89.1 fl (81.0-99.0); Mean Platelet Volume 8.2 fL (7.4-10.4); Platelet Count 105 thou/uL (130-400); Red Blood Cell (RBC) Count 3.84 mill/uL (4.20-5.40); White Blood Cell (WBC) Count 4.2 thou/uL (4.8-10.8)
[2017-09-24 16:54] LABS: INR-International Normal Ratio 1.1; PTT 37.8 SEC (22.9-36.1); Prothrombin Time 14.8 SEC (12.0-14.7)
[2017-09-24 17:04] LABS: ALT (SGPT) 15 U/L (8-55); AST (SGOT) 26 U/L (5-34); Albumin 3.9 g/dL (3.5-5.0); Alkaline Phosphatase 113 U/L (40-150); Anion Gap 12 mmol/L (10-20); BUN (Urea Nitrogen) 25 mg/dL (7.0-18.7); Bilirubin, Total 0.8 mg/dL (0.2-1.2); Calc. Creatinine Clearance 0 mL/min (70-130); Calcium 9.4 mg/dL (7.8-10.44); Carbon Dioxide 20 mmol/L (22-29); Chloride 101 mmol/L (98-107); Estimated GFR-MDRD 37; Globulin 2.7 g/dL (2.4-3.5); Glucose 115 mg/dL (70-105); Potassium 4.3 mmol/L (3.5-5.1); Protein, Total 6.6 g/dL (6.0-8.3); Sodium 129 mmol/L (136-145)
--- NOTE | 2017-09-24 18:25 | CT ---
CT ABDOMEN AND PELVIS WITH CONTRAST 09/24/17 HISTORY: Abdominal pain. COMPARISON: CT abdomen and pelvis 06/08/15. FINDINGS: There appears to be some scarring in the right posterior peripheral parietal pleura with round atelec tasis. The right pleural effusion has resolved from the 2015 examination. No pericardial effusion. Th ere is large volume ascites. There is submucosal edema of the ascending colon. There is also severe s ubmucosal edema of the transverse colon with inflammatory stranding adjacent to it suggesting colitis . The ascending colon findings are likely congestive in nature. There is extensive retroperitoneal soft tissue thickening which may reflect scarring and fibrosis and less likely confluent adenopathy. The spleen is enlarged. Liver is cirrhotic and nodular. Portal vein is patent. The pancreas is unrema rkable. Skeleton is unremarkable. IMPRESSION: 1. Findings suggestive of extensive transverse colon colitis with submucosal edema and inflammat ory stranding. 2. Likely congestive changes and submucosal edema of the ascending colon. 3. Large volume ascites. 4. Likely congestive changes fibrosis in the retroperitoneum and less likely adenopathy. POS: [facility]
[2017-09-24] MEDS ORDERED: Ondansetron ODT 4 MG TAB SL PRN (20:58)
[2017-09-24] MEDS ORDERED: Ondansetron HCl/PF 4 MG/2 ML Vial IVP PRN ×2 (20:58→22:52)
[2017-09-24] MEDS ORDERED: Acetaminophen 325 MG TAB PO PRN (20:58)
[2017-09-24 21:20] VITALS: BMI 26.4
[2017-09-24] MEDS ORDERED: Nitroglycerin 0.4 MG TAB (25 Tab Bottle) PO PRN (22:46)
[2017-09-24] MEDS ORDERED: Senokot 8.6 MG TAB PO PRN (22:52)
[2017-09-24] MEDS ORDERED: Ondansetron ODT 4 MG TAB PO PRN (22:52)
[2017-09-24] MEDS ORDERED: busPIRone HCl 10 MG TAB PO SCH (23:00)
[2017-09-24] MEDS ORDERED: Rifaximin 550 MG TAB PO SCH (23:00)
[2017-09-24] MEDS ORDERED: clonazePAM 1 MG TAB PO SCH (23:00)
--- NOTE | 2017-09-24 23:15 | HP ---
DATE OF ADMISSION: 09/24/2017 PRIMARY CARE PHYSICIAN: [facility]. PRIMARY FINANCIAL AID ADMINISTRATOR: Jessee Schmid M.D. CHIEF COMPLAINT: Bleeding per rectum. HISTORY OF PRESENT ILLNESS: The patient is a 51-year-old female with cirrhosis of the liver, grade I I esophageal varices, status post banding in 2015, internal hemorrhoids and ascites with weekly parac entesis, presented to the emergency room with above complaints. The patient underwent paracentesis 2 days ago. Earlier today, the patient had 2 episodes of bleeding per rectum. She noticed several blood clots in the commode. It was fresh blood. She is unable to quantify. She felt somewhat lightheaded, however, denies passing out. No nausea, vomiting, hemateme sis reported. No fevers or chills reported. She denies any nonsteroidal anti-inflammatory drug use. In the emergency room, stool for occult blood was negative. CT scan of the abdomen with contrast was consistent with extensive transverse colon colitis with submucosal edema and inflammatory stranding with large volume ascites. She was started on ciprofloxacin and Flagyl. After arrival to the floor, the patient had 1 bowel movement that was essentially nonbloody. She had some GI cramping earlier while she was at home that has more or less improved. PAST MEDICAL HISTORY: 1. Cirrhosis of the liver. 2. Gastroesophageal reflux disease. 3. Hiatal hernia. 4. Gastritis. 5. History of hepatic encephalopathy. 6. Grade II esophageal varices, status post banding in 2015. A repeat EGD in 10/2016 was negative f or varices. 7. Portal hypertension. 8. Ascites with weekly paracentesis. 9. Colon polyp with colonoscopy in 10/2016 that showed small rectal varices. 10. Hemorrhoids. 11. Splenomegaly. 12. Peptic ulcers. 13. Irritable bowel syndrome. 14. Anemia. 15. Cholelithiasis. 16. Mild intermittent asthma. 17. Anxiety. 18. Diabetes mellitus. 19. Hypertension. 20. History of renal stone. 21. Anxiety. PAST SURGICAL HISTORY: 1. EGD. 2. Colonoscopy. 3. Cholecystectomy. 4. section. 5. Tubal ligation. ALLERGIES: The patient is allergic to KEFLEX, CODEINE, MORPHINE, and PENICILLIN. CURRENT HOME MEDICATIONS: BuSpar 10 mg b.i.d., Zyrtec 10 mg daily, vitamin D3 1000 units daily, clon azepam 0.5 mg in the morning and 1 mg at bedtime, Nexium 40 mg daily, Lasix 40 mg daily, lactulose 20 mL daily, magnesium 500 mg b.i.d., rifaximin 550 mg b.i.d., Aldactone 100 mg daily, vitamin B12, and folic acid. SOCIAL HISTORY: The patient currently lives at home. She is a former smoker. Denies any alcohol or drug use. FAMILY HISTORY: Grandmother with colon polyp. Mother with GERD. Grandmother with colon cancer. REVIEW OF SYSTEMS: The following complete review of systems was negative, unless otherwise mentioned in the HPI or below: Constitutional: Weight loss or gain, ability to conduct usual activities. Skin: Rash, itching. Eyes: Double vision, pain. ENT/Mouth: Nose bleeding, neck stiffness, pain, tenderness. Cardiovascular: Palpitations, dyspnea on exertion, orthopnea. Respiratory: Shortness of breath, wheezing, cough, hemoptysis, fever, or night sweats. Gastrointestinal: Poor appetite, abdominal pain, heartburn, nausea, vomiting, constipation, or diarr hea. Genitourinary: Urgency, frequency, dysuria, nocturia. Musculoskeletal: Pain, swelling. Neurologic/Psychiatric: Anxiety, depression. Allergy/Immunologic: Skin rash, bleeding tendency. PHYSICAL EXAMINATION: VITAL SIGNS: Temperature 98.3, respirations 16, pulse 92, blood pressure 108/70 with O2 saturation 1 00% on room air. GENERAL: A 51-year-old female in no apparent distress, abdominal cramping has improved. HEENT: Atraumatic, normocephalic. Sclerae anicteric. Moist mucous membranes. No oral lesion. NECK: Supple, no JVD appreciated. No carotid bruit. LUNGS: Showed diminished air entry at bases. HEART: S1, S2 present. Regular rate and rhythm. No rubs or gallops. ABDOMEN: Showed diffuse ascites with shifting dullness. Mild tenderness over the suprapubic region. No rebound, guarding, no costovertebral angle tenderness. EXTREMITIES: No edema or calf tenderness. NEUROLOGIC: Grossly nonfocal, moves all four extremities. PSYCHIATRY: Alert, awake, oriented x3. SKIN: Warm and dry. LYMPH NODES: No palpable lymph nodes in the neck. EXTREMITIES: Peripheral vascular, radial pulses palpable bilaterally. MUSCULOSKELETAL: No joint swelling or tenderness. LABORATORY FINDINGS: 1. CBC showed WBC of 4.2 with hemoglobin 11.2, platelet 105. 2. INR 1.1, PT 14.8. 3. Chemistries showed sodium 129, potassium 4.3, chloride 101, bicarbonate 20, BUN 25, creatinine 1. 48. 4. Stool for occult blood done in the emergency room was negative. CT scan of the abdomen and pelvi s by my review as discussed above. IMPRESSION: 1. Colitis, probably infectious. 2. Bleeding per rectum, probably secondary to colitis. Other possibilities include bleeding from he morrhoids versus varices. 3. Decompensated cirrhosis. 4. History of ascites with weekly paracentesis. 5. History of esophageal varices. 6. Gastroesophageal reflux disease. 7. Chronic kidney disease stage 3. 8. Diabetes mellitus type 2, diet controlled. 9. Anxiety. 10. Portal hypertension. PLAN: The patient will be monitored on the medical floor. We will continue ciprofloxacin and Flagyl . We will send stool workup. GI consult. Monitor H&H. Resume home medications including Lasix, Al dactone, rifaximin. We will also resume clonazepam and BuSpar. DISPOSITION: Based on GI input. Plan of care was discussed with the patient in detail and she stated understanding.
[2017-09-24] MEDS ORDERED: metroNIDAZOLE 500 MG in Premix Bag 1 BAG IVPB SCH (23:59)
[2017-09-25] MEDS: metroNIDAZOLE 500 MG in Premix Bag 1 BAG IVPB SCH ×3 (04:20→19:48)
[2017-09-25 05:50] LABS: Albumin 3.3 g/dL (3.5-5.0); Anion Gap 10 mmol/L (10-20); BUN (Urea Nitrogen) 25 mg/dL (7.0-18.7); BUN/Creatinine Ratio 18.38; Calc. Creatinine Clearance 59 mL/min (70-130); Calcium 8.8 mg/dL (7.8-10.44); Carbon Dioxide 21 mmol/L (22-29); Chloride 101 mmol/L (98-107); Estimated GFR-MDRD 41; Glucose 90 mg/dL (70-105); Phosphorus 3.9 mg/dL (2.3-4.7); Potassium 4.7 mmol/L (3.5-5.1); Sodium 127 mmol/L (136-145)
[2017-09-25 05:58] LABS: #Eosinphils 0.2 thou/uL (0.0-0.7); #Lymphocytes 0.4 thou/uL (1.20-3.40); #Monocytes 0.4 thou/uL (0.11-0.59); #Neutrophils 1.5 thou/uL (1.40-6.50); %Basophils 1.7 % (0.0-1.0); %Eosinophils 8.9 % (0.0-10.0); %Lymphocytes 15.1 % (21.0-51.0); %Monocytes 14.8 % (0.0-10.0); %Neutrophils 59.5 % (42.0-75.0); Hemoglobin 10.3 g/dL (12.0-16.0); Mean Corpuscular HGB CONC 32.9 g/dL (32.0-36.0); Mean Corpuscular Hemoglobin 29.1 pg (27.0-31.0); Mean Corpuscular Volume 88.5 fl (81.0-99.0); Mean Platelet Volume 8.5 fL (7.4-10.4); Platelet Count 90 thou/uL (130-400); Red Blood Cell (RBC) Count 3.54 mill/uL (4.20-5.40); White Blood Cell (WBC) Count 2.5 thou/uL (4.8-10.8)
[2017-09-25] MEDS ORDERED: Cetirizine HCl 10 MG TAB PO SCH (09:00)
[2017-09-25] MEDS ORDERED: Non-Formulary Item 1 EACH (Esomeprazole Magnesium [Nexium] 40 MG) PO SCH (09:00)
[2017-09-25] MEDS: busPIRone HCl 10 MG TAB PO SCH ×2 (10:08→19:51)
[2017-09-25] MEDS: clonazePAM 0.5 MG TAB PO SCH ×2 (10:09→12:42)
[2017-09-25] MEDS: Loratadine 10 MG TAB PO SCH (10:09)
[2017-09-25] MEDS: Furosemide 40 MG TAB PO SCH (10:10)
[2017-09-25] MEDS: Rifaximin 550 MG TAB PO SCH ×2 (10:10→19:51)
[2017-09-25] MEDS: Famotidine 20 MG TAB PO SCH ×2 (10:10→19:51)
[2017-09-25] MEDS: Spironolactone 100 MG TAB PO SCH (10:11)
[2017-09-25] MEDS: Multivit, Chewable SF 1 TAB PO SCH (10:17)
--- NOTE | 2017-09-25 12:16 | CON ---
DATE OF CONSULTATION: 09/25/2017 GI INPATIENT CONSULTATION NOTE REQUESTING PHYSICIAN: Dr. Rivera. REASON FOR CONSULTATION: Rectal bleeding. HISTORY OF PRESENT ILLNESS: Jesse Gonzalez is a 51-year-old woman, a patient of my GI colleague, Dr Liya Schmid. She has decompensated cirrhosis secondary to steatohepatitis. She has chronic ascites and history of hepatic encephalopathy. She has had banding of esophageal varices in the [facility] t. Her last EGD in 05/2017 showed no residual esophageal varices, just hiatal hernia and portal hype rtensive gastropathy. She had a colonoscopy within the past year in 10/2016 which showed rectal vari ebenezer which are small to medium in size but was otherwise normal. She primarily deals with chronic asc ites. She has been getting weekly paracentesis for a long time. Her last paracentesis was 3 days ag o. She was brought to the hospital yesterday after having two episodes of bright red rectal bleeding with some small blood clots. This happened twice at home and then she says twice after she arrived here. There was some associated generalized cramping abdominal pain just yesterday, but that has not continued to today. She has been having loose stools, but she has had three bowel movements so far today which have been nonbloody. There is no further abdominal discomfort. No nausea or vomiting. Notably, FOBT was negative upon arrival. She did have a CT scan last night which demonstrated a larg e amount of ascites, cirrhosis and splenomegaly and also submucosal edema in the ascending colon and transverse colon with some inflammatory stranding in the transverse colon suggestive of an acute coli tis. She was started on antibiotics with ciprofloxacin and Flagyl. She has been hemodynamically sta ble overnight and again now this morning she has had nonbloody bowel movements with no abdominal pain . REVIEW OF SYSTEMS: Full review of systems including constitutional, head, eyes, ears, nose, throat, GI, , cardiovascular, respiratory, musculoskeletal, and neurologic systems is negative except as no cassie in the HPI. PAST MEDICAL HISTORY: Cirrhosis secondary to steatohepatitis, GERD, hiatal hernia, portal hypertensi ve gastropathy, grade II esophageal varices status post banding in 2015 with last EGD in 05/2017 nega tive for varices, history of hepatic encephalopathy, portal hypertension, ascites with weekly paracen tesis, small rectal varices seen on last colonoscopy in 10/2016, irritable bowel syndrome, pancytopen ia, cholelithiasis, asthma, anxiety, diabetes, hypertension and history of renal stone. PAST SURGICAL HISTORY: section, cholecystectomy, tubal ligation. ALLERGIES: KEFLEX, CODEINE, MORPHINE, PENICILLIN. HOME MEDICATIONS: BuSpar, Zyrtec, vitamin D3, clonazepam, Nexium 40 mg daily, Lasix 40 mg daily, Ald actone 100 mg daily, lactulose 20 mL daily, magnesium, rifaximin 550 mg b.i.d., vitamin B12, folic ac id. SOCIAL HISTORY: No alcohol or drug abuse. Currently, she is a former smoker. FAMILY HISTORY: Her grandmother had colon cancer. PHYSICAL EXAMINATION: VITAL SIGNS: Temperature 97.8, pulse 83, blood pressure 81/52, 99% oxygen saturation on room air. GENERAL: A 51-year-old woman lying in bed comfortably in no acute distress. SKIN: No jaundice, no rash visible or palpable. EYES: No scleral icterus. Extraocular movements intact. ENT: Mucous membranes moist, no oral lesions. LYMPH: No submandibular or supraclavicular lymphadenopathy. THYROID: Nontender to palpation. HEART: Regular rate and rhythm. LUNGS: Clear to auscultation bilaterally. ABDOMEN: Distended with ascites but not tense. Bowel sounds present. Soft. Dull to percussion, no ntender to palpation throughout. EXTREMITIES: No peripheral edema. VESSELS: Radial pulses 2+ bilaterally. NEUROLOGICAL: Cranial nerves II-XII intact bilaterally. No focal deficits. LABORATORY STUDIES: WBC 2.5, hemoglobin 10.2, platelets 90. Sodium 127, potassium 4.7, BUN 25, and creatinine 1.36. INR 1.1, total bilirubin 0.8, alkaline phosphatase 113, AST 26, ALT 15, and albumin 3.3. FOBT is negative. Fecal lactoferrin is elevated, but stool assays for C. difficile, E. coli, Campylobacter, Shiga toxin, Giardia and cryptosporidium were all negative. IMAGING STUDIES: CT of the abdomen and pelvis showed right pleural scarring, large amount of ascites , cirrhosis and splenomegaly, normal pancreas and submucosal edema in the ascending colon and transve rse colon with some inflammatory stranding around the transverse colon. This is suggestive of vascul ar congestion versus colitis. ASSESSMENT AND PLAN: 1. Rectal bleeding, appears to be resolved. 2. Rectal varices, demonstrated on colonoscopy 10/2016. 3. Acute colitis. 4. Pancytopenia secondary to cirrhosis. 5. Cirrhosis. 6. Ascites, chronic. The patient had essentially self-limited bleeding yesterday which appears to h ave resolved. She has been having some diarrhea and given the CT findings, this does appear to repre sent an acute colitis. Note the elevated fecal lactoferrin, but otherwise negative stool studies. T his could be viral. Agree with empiric treatment with antibiotics as you are doing as well as suppor tive care. The pattern of the bleeding suggests rectal outlet source, perhaps some internal hemorrho ids or small amount of bleeding from the rectal varices. I do not think colonoscopy is needed at thi s time. I think her diet can actually be advanced as tolerated to low sodium diet, continue other ho me medications as appropriate including rifaximin. I think that the patient is able to tolerate her diet and has no further significant bleeding or decline in hemoglobin by tomorrow, she could potentia lly be discharged from the hospital. Thank you for the consultation. Please call back with questions or concerns.
--- NOTE | 2017-09-25 17:20 | PDOC.PN ---
- Subjective Encounter Start Date: 09/25/17 Encounter Start Time: 14:00 Patient seen and examined. No new complaints. No overnight events. No new GI bleeding. No abd pain. - Objective Resuscitation Status: Resuscitation Status FULL:Full Resuscitation MAR Reviewed: Yes Vital Signs & Weight: Vital Signs (12 hours) Temp Pulse Resp BP Pulse Ox 09/25/17 15:08 98.1 F 79 16 85/50 L 99 09/25/17 11:13 97.9 F 79 16 87/52 L 97 09/25/17 10:02 87/60 L 09/25/17 08:00 97.8 F 83 16 09/25/17 07:18 97.8 F 83 16 81/52 L 99 Weight Weight 164 lb I&O: 09/24/17 09/25/17 09/26/17 06:59 06:59 06:59 Intake Total 1020 Balance 1020 Result Diagrams: 09/25/17 04:20 09/25/17 04:20 Phys Exam - Physical Examination Constitutional: NAD Respiratory: no wheezing, no rhonchi Cardiovascular: RRR, no rub Gastrointestinal: soft, positive bowel sounds Ascites + Musculoskeletal: no edema Neurological: non-focal, moves all 4 limbs Psychiatric: A&O x 3 Dx/Plan - Plan DVT proph w/SCDs IMPRESSION: 1. Infectious Colitis. 2. Bleeding per rectum, probably secondary to colitis vs. internal hemorrhoids vs. rectal cvarices. ?resolved. 3. Decompensated cirrhosis. 4. History of ascites with weekly paracentesis. 5. History of esophageal varices. 6. Gastroesophageal reflux disease. 7. Chronic kidney disease stage 3. 8. Diabetes mellitus type 2, diet controlled. 9. Anxiety. 10. Portal hypertension. PLAN: * GI input appreciated * HH in AM * Cont to monitor * Cont current meds as below * Cont Cipro/Flagyl * Change Atbx to PO * Stool w/u negative except elevated lactoferrin Review of Systems - Review of Systems Respiratory: negative: Cough, Dry, Shortness of Breath, Hemoptysis, SOB with Excertion, Pleuritic Pain, Sputum, Wheezing Cardiovascular: negative: chest pain, palpitations, orthopnea, paroxysmal nocturnal dyspnea, edema, light headedness - Medications/Allergies Allergies/Adverse Reactions: Allergies Allergy/AdvReac Type Severity Reaction Status Date / Time cephalexin [From Keflex] Allergy Verified 09/24/17 20:57 codeine Allergy Verified 09/14/17 09:56 morphine Allergy Verified 09/14/17 09:56 Penicillins Allergy Unverified 09/14/17 09:56 Medications: Current Medications Buspirone HCl (Buspar) 10 mg PO BID [facility] Last Admin: 09/25/17 10:08 Dose: 10 mg Ciprofloxacin (Cipro) 250 mg PO BID@0600,2000 [facility] Clonazepam (Klonopin) 0.5 mg PO DAILY [facility] Last Admin: 09/25/17 12:42 Dose: 0.5 mg Clonazepam (Klonopin) 1 mg PO HS [facility] Famotidine (Pepcid) 20 mg PO BID [facility] Last Admin: 09/25/17 10:10 Dose: 20 mg Furosemide (Lasix) 40 mg PO DAILY [facility] Last Admin: 09/25/17 10:10 Dose: 40 mg Ciprofloxacin/Dextrose 400 mg/ (Device) 200 mls @ 200 mls/hr IVPB Q12HR [facility] Stop: 09/25/17 23:59 Last Admin: 09/25/17 10:06 Dose: 200 mls Metronidazole 500 mg/ Device 100 mls @ 100 mls/hr IVPB 0400,1200,2000 [facility] Stop: 09/25/17 23:59 Last Admin: 09/25/17 12:42 Dose: 100 mls Lactulose (Lactulose) 20 gm PO DAILY [facility] Last Admin: 09/25/17 10:13 Dose: Not Given Lactulose (Lactulose) 20 gm PO DAILYPRN PRN PRN Reason: Constipation Loratadine (Claritin) 10 mg PO DAILY [facility] Last Admin: 09/25/17 10:09 Dose: 10 mg Metronidazole (Flagyl) 500 mg PO TID [facility] Multivitamins (Multivit, Chewable Sf) 1 tab PO DAILY [facility] Last Admin: 09/25/17 10:17 Dose: Not Given Nitroglycerin (Nitrostat) 0.4 mg PO Q5MIN PRN PRN Reason: Chest Pain Ondansetron HCl (Zofran Odt) 4 mg PO Q6H PRN PRN Reason: Nausea/Vomiting Ondansetron HCl (Zofran) 4 mg IVP Q6H PRN PRN Reason: Nausea/Vomiting Pantoprazole Sodium (Protonix) 40 mg PO DAILY [facility] Last Admin: 09/25/17 10:11 Dose: 40 mg Rifaximin (Xifaxan) 550 mg PO BID [facility] Last Admin: 09/25/17 10:10 Dose: 550 mg Senna (Senokot) 2 tab PO HSPRN PRN PRN Reason: Constipation Sodium Chloride (Flush - Normal Saline) 10 ml IVF Q12HR [facility] Last Admin: 09/25/17 10:12 Dose: 10 ml Sodium Chloride (Flush - Normal Saline) 10 ml IVF PRN PRN PRN Reason: Saline Flush Spironolactone (Aldactone) 100 mg PO DAILY [facility] Last Admin: 09/25/17 10:11 Dose: 100 mg
[2017-09-25] MEDS ORDERED: clonazePAM 1 MG TAB PO SCH (21:00)
[2017-09-26 04:38] LABS: Hemoglobin 9.6 g/dL (12.0-16.0); Platelet Count 79 thou/uL (130-400)
[2017-09-26] MEDS ORDERED: Cipro 250 MG TAB PO SCH (06:00)
[2017-09-26] MEDS: clonazePAM 0.5 MG TAB PO SCH (08:42)
[2017-09-26] MEDS: busPIRone HCl 10 MG TAB PO SCH (08:42)
[2017-09-26] MEDS: Furosemide 40 MG TAB PO SCH (08:42)
[2017-09-26] MEDS: Famotidine 20 MG TAB PO SCH (08:42)
[2017-09-26] MEDS: Loratadine 10 MG TAB PO SCH (08:42)
[2017-09-26] MEDS: Spironolactone 100 MG TAB PO SCH (08:43)
[2017-09-26] MEDS: Rifaximin 550 MG TAB PO SCH (08:43)
[2017-09-26] MEDS: Multivit, Chewable SF 1 TAB PO SCH (08:45)
[2017-09-26] MEDS ORDERED: metroNIDAZOLE 500 MG TAB PO SCH (09:00)
[2017-09-26 12:02] VITALS: BP 81/47; TEMP 98.3
--- NOTE | 2017-09-26 12:42 | PRG ---
DATE OF SERVICE: 09/26/2017 GI INPATIENT DAILY PROGRESS NOTE SUBJECTIVE: Ms. Gonzalez is feeling really well today. She is having no abdominal pain. She passed some normal appearing bowel movements. Her appetite has been good and she ate a big breakfast today . OBJECTIVE: VITAL SIGNS: Temperature 98.3, pulse 81, blood pressure 81/47, 100% oxygen saturation on room air. GENERAL: No acute distress. HEART: Regular rate and rhythm. LUNGS: Clear to auscultation bilaterally. ABDOMEN: Distended with ascites, but soft and nontender to palpation throughout. EXTREMITIES: No peripheral edema. LABORATORY STUDIES: Hemoglobin 9.6, hematocrit 29.4, and platelets 79. Fecal lactoferrin was elevat ed, but stool occult blood was actually negative. C. difficile, Campylobacter, Shiga toxin were all negative. Giardia and cryptosporidium were negative. Stool culture showed normal benjamin. ASSESSMENT AND PLAN: 1. Rectal bleeding, single episode, resolved. 2. Possible acute colitis, clinically resolved. 3. Pancytopenia secondary to cirrhosis. 4. Nonalcoholic steatohepatitis cirrhosis, decompensated. 5. Chronic ascites. The patient has had no further overt gastrointestinal bleeding and she is feeli ng well. Suspect that her single episode of rectal bleeding is most likely secondary to hemorrhoids or small bleed from her known rectal varices. Hemoglobin did decline marginally but there is no furt her evidence of bleeding. I think she can be discharged home from a gastrointestinal perspective. S he actually already has outpatient followup with her primary fixed income trading vice president, Dr. Schmid tomorrow and I encouraged her to keep that appointment. I think her antibiotics could be discontinued.
--- NOTE | 2017-09-26 13:55 | PDOC.PN ---
- Subjective Encounter Start Date: 09/26/17 Encounter Start Time: 13:53 Ms. Gonzalez was seen in follow-up. She does not have any complaints this afternoon.She has not had any further bleeding. - Objective Resuscitation Status: Resuscitation Status FULL:Full Resuscitation MAR Reviewed: Yes Vital Signs & Weight: Vital Signs (12 hours) Temp Pulse Resp BP BP Pulse Ox 09/26/17 12:00 98.3 F 81 18 81/47 L 100 09/26/17 08:42 98.0 F 80 18 09/26/17 07:56 98.0 F 80 18 80/49 L 99 09/26/17 03:59 98 09/26/17 03:14 97.8 F 75 16 86/51 L 98 Weight Weight 164 lb I&O: 09/25/17 09/26/17 09/27/17 06:59 06:59 06:59 Intake Total 1020 677 Output Total 620 Balance 1020 57 Result Diagrams: 09/26/17 03:57 09/25/17 04:20 Phys Exam - Physical Examination HEENT: PERRLA Respiratory: no wheezing, no rales, no rhonchi, clear to auscultation bilateral Cardiovascular: RRR, no significant murmur Gastrointestinal: soft, non-tender, positive bowel sounds Musculoskeletal: no edema Dx/Plan (1) Colitis Status: Acute (2) Cirrhosis of liver with ascites Code(s): K74.60 - UNSPECIFIED CIRRHOSIS OF LIVER Status: Chronic Comment: SPENCER with recurrent ascites, plan for US guided paracentesis in am, GI consult pending. (3) DM type 2 (diabetes mellitus, type 2) Status: Chronic (4) HTN (hypertension) Code(s): I10 - ESSENTIAL (PRIMARY) HYPERTENSION Status: Chronic - Plan * Colitis- presumed Infectious- stable and improving. * Hyponatremia- chronic, stable * She is stable for discharge home.
--- NOTE | 2017-09-26 21:30 | DIS ---
DATE OF ADMISSION: 09/24/2017 DATE OF DISCHARGE: 09/26/2017 PRIMARY CARE PHYSICIAN: Alana Godoy. DISCHARGE DISPOSITION: Home. PRIMARY DISCHARGE DIAGNOSES: 1. Rectal bleeding secondary to colitis, which is presumed infectious. 2. Nonalcoholic steatohepatitis with cirrhosis. 3. History of esophageal varices with banding. 4. Portal hypertension. 5. Chronic hyponatremia. 6. Chronic thrombocytopenia. 7. Diabetes mellitus. 8. Hypertension. DISCHARGE MEDICATIONS: Include ciprofloxacin 250 mg p.o. twice a day for 5 days as well as Flagyl 50 0 mg p.o. 3 times a day for 5 days. She is to continue Aldactone 100 mg daily, rifaximin 550 mg twic e a day, multivitamins once daily, magnesium 500 mg twice a day, lactulose 15 mg p.o. daily, Lasix 40 mg daily, Nexium 40 mg daily, clonazepam 0.5 mg q.a.m. and 1 mg q.p.m., vitamin D 1000 units daily, Zyrtec 10 mg daily as BuSpar 10 mg twice a day and B12, , folate and calcium 1 tablet daily. PROCEDURES DONE DURING ADMISSION: The patient had a CT scan of the abdomen and pelvis showing findin gs suggestive of extensive transverse colon colitis, some changes of congestive heart failure and lar ge volume ascites. CODE STATUS: FULL CODE. ALLERGIES: CEPHALEXIN, CODEINE, MORPHINE and PENICILLINS. HOSPITAL COURSE: Ms. Gonzalez is a pleasant 51-year-old female who presented to the emergency room w ith a complaint of rectal bleeding. She had recently undergone a large volume paracentesis [address] scan of the abdomen was done in the ER which was consistent with a transverse colon colitis with submucosal edema. She was placed in observation and seen by Gastroenterology. It was felt that colonoscopy was not needed and her symptoms are likely as a result of the colitis as well as possibl e hemorrhoids. Hemostasis was maintained spontaneously and she was treated for presumed infectious c olitis with Cipro and Flagyl. She will be continued for 5 more days post-discharge. She also has a chronic hyponatremia which is essentially unchanged for the past year as well as a chronic thrombus. She did have thrombocytopenia as well. The patient will be discharged home today and to have follow up with Dr. Schmid tomorrow.
== END 2017-09-26 14:09 | disposition home or self-care (01) ==
LOC: ERS 13:50 → 2SW 19:00
PROVIDERS: ADMIT Internal Medicine; ATTEND Internal Medicine
DX: K52.9 Noninfective gastroenteritis and colitis, unspecified (principal); K62.5 Hemorrhage of anus and rectum; K75.81 Nonalcoholic steatohepatitis (NASH); K74.60 Unspecified cirrhosis of liver; K76.6 Portal hypertension; E87.1 Hypo-osmolality and hyponatremia; D69.6 Thrombocytopenia, unspecified; K21.9 Gastro-esophageal reflux disease without esophagitis; R18.8 Other ascites; R16.1 Splenomegaly, not elsewhere classified; K58.9 Irritable bowel syndrome, unspecified; D64.9 Anemia, unspecified; J45.20 Mild intermittent asthma, uncomplicated; F41.9 Anxiety disorder, unspecified; E11.22 Type 2 diabetes mellitus with diabetic chronic kidney disease; I12.9 Hypertensive chronic kidney disease with stage 1 through stage 4 chronic kidney disease, or unspecified chronic kidney disease; N18.3 Chronic kidney disease, stage 3 (moderate); D61.818 Other pancytopenia; Z79.2 Long term (current) use of antibiotics; Z79.899 Other long term (current) drug therapy; Z88.1 Allergy status to other antibiotic agents; Z88.0 Allergy status to penicillin; Z88.5 Allergy status to narcotic agent; Z98.51 Tubal ligation status; Z90.49 Acquired absence of other specified parts of digestive tract; Z98.890 Other specified postprocedural states; Z98.891 History of uterine scar from previous surgery; Z87.11 Personal history of peptic ulcer disease; Z87.442 Personal history of urinary calculi; Z87.891 Personal history of nicotine dependence
CPT/HCPCS: 36415; 74177; 80053; 80069; 82274; 83630; 85014; 85018; 85025; 85049; 85610; 85730; 86850; 86900; 86901; 87045; 87046; 87324; 87328; 87329; 87449; 87899; 94760; 96365; 96366; 96367; 96375; A4216; G0378; J0744; J2405

== ENCOUNTER 2017-09-29 09:12 | Day surgery (SDC) | payer OTHER ==
[2017-09-29 11:19] VITALS: TEMP 97.7
[2017-09-29 11:20] VITALS: BMI 26.3
[2017-09-29 11:21] VITALS: BP 95/59
--- NOTE | 2017-09-29 12:07 | ULT ---
ULTRASOUND GUIDED PARACENTESIS: Date: 09-29-17 History: Ascites. Senior Project Engineer: Mario. Anesthesia: 5 mg of buffered 1% Lidocaine. Complication: None. Specimen: 7450 ml of straw colored fluid. Technique: Prior to the procedure the risks and benefits of an ultrasound guided paracentesis were explained to the patient who consented for the procedure. The area of largest collection of fluid was seen in the left lower quadrant of the abdomen. The left lower quadrant of the abdomen was prepped and draped in the usual sterile fashion. Lidocaine was used to anesthetize the skin and soft tissues down toward the peritoneal cavity. A Yueh needle a nd catheter were placed using ultrasound guidance into the peritoneal cavity. Once the needle was in place, the catheter was left and connected to multiple vacutainer bottles. A total of 7450 ml of flui d was removed. After completion of the procedure, no significant residual fluid is seen in the left l ower quadrant of the abdomen. The patient tolerated the procedure well without immediate post procedu re complication. IMPRESSION: Status post successful ultrasound guided paracentesis. POS: [facility]
== END 2017-09-29 10:50 | disposition home or self-care (01) ==
LOC: ULT 09:12
PROVIDERS: ATTEND Internal Medicine Gastroenterology
PROC: 0W9G3ZX Drainage of Peritoneal Cavity, Percutaneous Approach, Diagnostic (ICD-10-PCS; principal; 2017-09-29)
DX: K74.60 Unspecified cirrhosis of liver (principal); R18.8 Other ascites; K21.9 Gastro-esophageal reflux disease without esophagitis; K76.0 Fatty (change of) liver, not elsewhere classified; R16.0 Hepatomegaly, not elsewhere classified; K72.90 Hepatic failure, unspecified without coma; R16.1 Splenomegaly, not elsewhere classified; J45.909 Unspecified asthma, uncomplicated; E11.9 Type 2 diabetes mellitus without complications; I10 Essential (primary) hypertension; M19.90 Unspecified osteoarthritis, unspecified site; Z88.0 Allergy status to penicillin; Z88.1 Allergy status to other antibiotic agents; Z88.2 Allergy status to sulfonamides; Z88.5 Allergy status to narcotic agent; Z79.899 Other long term (current) drug therapy
CPT/HCPCS: 49083

== ENCOUNTER 2017-10-06 09:24 | Day surgery (SDC) | payer OTHER ==
[2017-10-06] MEDS ORDERED: Albumin 25% 200 ML ONE (09:38)
[2017-10-06 11:59] VITALS: TEMP 97.5
[2017-10-06 12:00] VITALS: BMI 28.1
[2017-10-06 12:02] VITALS: BP 109/62
--- NOTE | 2017-10-06 12:52 | ULT ---
EXAM: ULTRASOUND GUIDED PARACENTESIS: HISTORY: Ascites. COMPARISON: 09/29/17. FINDINGS: Technically successful ultrasound-guided paracentesis. A total of 9 L of yellow-colored ascites was removed. A small amount of fluid was does remain on the post procedure imaging. TECHNIQUE: Consent was obtained for ultrasound-guided paracentesis. The patient's abdomen was evaluated. The r ight lower quadrant was deemed appropriate. 1% Lidocaine, buffered with sodium bicarbonate, was used for local anesthesia. Under ultrasound guidance, a 5 Lao 7 cm catheter was advanced into the rig ht lower quadrant. Via vacuum bottles, a total of 9 L of yellow colored ascites were removed. The p atient tolerated the procedure well. No immediate or post procedure complications. IMPRESSION: Technically successful ultrasound-guided paracentesis. POS: [facility]
== END 2017-10-06 11:30 | disposition home or self-care (01) ==
LOC: ULT 09:24
PROVIDERS: ATTEND Internal Medicine Gastroenterology
PROC: 0W9G3ZX Drainage of Peritoneal Cavity, Percutaneous Approach, Diagnostic (ICD-10-PCS; principal; 2017-10-06)
DX: K74.60 Unspecified cirrhosis of liver (principal); R18.8 Other ascites; K21.9 Gastro-esophageal reflux disease without esophagitis; K76.0 Fatty (change of) liver, not elsewhere classified; R16.0 Hepatomegaly, not elsewhere classified; R16.1 Splenomegaly, not elsewhere classified; K58.9 Irritable bowel syndrome, unspecified; I10 Essential (primary) hypertension; E11.9 Type 2 diabetes mellitus without complications; M19.90 Unspecified osteoarthritis, unspecified site; J45.909 Unspecified asthma, uncomplicated; F41.9 Anxiety disorder, unspecified; Z88.0 Allergy status to penicillin; Z88.1 Allergy status to other antibiotic agents; Z88.2 Allergy status to sulfonamides; Z88.5 Allergy status to narcotic agent; Z88.8 Allergy status to other drugs, medicaments and biological substances; Z79.899 Other long term (current) drug therapy; Z90.49 Acquired absence of other specified parts of digestive tract; Z98.890 Other specified postprocedural states; Z87.891 Personal history of nicotine dependence; Z83.79 Family history of other diseases of the digestive system
CPT/HCPCS: 49083; P9047

== ENCOUNTER 2017-10-13 09:43 | Day surgery (SDC) | payer OTHER ==
[2017-10-12 13:19] VITALS: BMI 29.0
[2017-10-13 12:06] VITALS: BP 91/50; TEMP 97.9
--- NOTE | 2017-10-13 13:12 | ULT ---
ULTRASOUND GUIDED PARACENTESIS: History: Ascites. Comparison: 10-06-17 FINDINGS: Successful ultrasound guided paracentesis. A total of 9 L of light yellow colored ascites was aspirat ed. No immediate or post procedure complication. Technique: Consent obtained for ultrasound guided paracentesis. Patient's abdomen was evaluated. Right lower jessa drant was deemed appropriate. Skin was prepped and draped in sterile fashion. 1% Lidocaine buffered w ith sodium bicarbonate was used for local anesthesia. Under ultrasound guidance, 5 Citizen Of The [place] 7 cm Yueh c atheter was advanced into the peritoneal space. Via vacuum bottles, a total of 9 L of light yellow co lored ascites was aspirated. Patient tolerated the procedure well. No immediate or post procedure com plication. IMPRESSION: Successful ultrasound guided paracentesis. POS: [facility]
== END 2017-10-13 11:55 | disposition home or self-care (01) ==
LOC: ULT 09:43
PROVIDERS: ATTEND Internal Medicine Gastroenterology
PROC: 0W9G3ZX Drainage of Peritoneal Cavity, Percutaneous Approach, Diagnostic (ICD-10-PCS; principal; 2017-10-13)
DX: K74.60 Unspecified cirrhosis of liver (principal); R18.8 Other ascites; K72.90 Hepatic failure, unspecified without coma; K76.0 Fatty (change of) liver, not elsewhere classified; R16.0 Hepatomegaly, not elsewhere classified; R16.1 Splenomegaly, not elsewhere classified; M19.90 Unspecified osteoarthritis, unspecified site; I10 Essential (primary) hypertension; J45.909 Unspecified asthma, uncomplicated; E11.9 Type 2 diabetes mellitus without complications; F41.9 Anxiety disorder, unspecified; Z88.5 Allergy status to narcotic agent; Z88.2 Allergy status to sulfonamides; Z88.1 Allergy status to other antibiotic agents; Z88.0 Allergy status to penicillin; Z88.8 Allergy status to other drugs, medicaments and biological substances; Z79.899 Other long term (current) drug therapy; Z87.19 Personal history of other diseases of the digestive system; Z86.010 Personal history of colon polyps; Z87.891 Personal history of nicotine dependence; Z80.0 Family history of malignant neoplasm of digestive organs
CPT/HCPCS: 49083

== ENCOUNTER 2017-10-20 08:53 | Day surgery (SDC) | payer OTHER ==
[2017-10-19 12:37] VITALS: BMI 29.0
[2017-10-20] MEDS ORDERED: Albumin 25% 200 ML ONE (09:13)
[2017-10-20 11:23] VITALS: BP 93/62; TEMP 98.2
--- NOTE | 2017-10-20 12:46 | ULT ---
ULTRASOUND GUIDED PARACENTESIS: INDICATIONS: Ascites. TECHNIQUE: A pre-procedure ultrasound demonstrated a prominent amount of ascites. The site overlying the right lower quadrant of the abdomen was marked. Informed consent obtained. The site was prepped and drape d in the usual sterile fashion. Buffered 1% Lidocaine was administered to the overlying subcutaneous tissues. A small incision was made. A 5 Monegasque Yueh catheter was guided down into the large collec tion in the right lower quadrant, with ultrasound guidance. The patient had 9 L of normal appearing peritoneal fluid removed. The patient tolerated the procedure without difficulty. IMPRESSION: Successful ultrasound guided paracentesis with removal of 9 L of normal appearing peritoneal fluid. POS: [facility]
== END 2017-10-20 10:55 | disposition home or self-care (01) ==
LOC: ULT 08:53
PROVIDERS: ATTEND Internal Medicine Gastroenterology
PROC: 0W9G3ZZ Drainage of Peritoneal Cavity, Percutaneous Approach (ICD-10-PCS; principal; 2017-10-20)
PROC: BW40ZZZ Ultrasonography of Abdomen (ICD-10-PCS; principal; 2017-10-20)
DX: K74.60 Unspecified cirrhosis of liver (principal); R18.8 Other ascites; K76.0 Fatty (change of) liver, not elsewhere classified; K58.0 Irritable bowel syndrome with diarrhea; D64.9 Anemia, unspecified; K21.9 Gastro-esophageal reflux disease without esophagitis; M19.90 Unspecified osteoarthritis, unspecified site; I10 Essential (primary) hypertension; J45.909 Unspecified asthma, uncomplicated; E11.9 Type 2 diabetes mellitus without complications; F41.9 Anxiety disorder, unspecified; Z79.2 Long term (current) use of antibiotics; Z79.899 Other long term (current) drug therapy; Z88.2 Allergy status to sulfonamides; Z88.5 Allergy status to narcotic agent; Z88.0 Allergy status to penicillin; Z88.1 Allergy status to other antibiotic agents; Z98.51 Tubal ligation status; Z90.49 Acquired absence of other specified parts of digestive tract; Z98.891 History of uterine scar from previous surgery; Z98.890 Other specified postprocedural states; Z87.19 Personal history of other diseases of the digestive system; Z87.11 Personal history of peptic ulcer disease; Z87.442 Personal history of urinary calculi; Z87.891 Personal history of nicotine dependence
CPT/HCPCS: 49083; P9047

== ENCOUNTER → 2017-10-27 | Day surgery (SDC) | payer OTHER ==
[2017-10-26 07:58] VITALS: BMI 29.0
[~2017-10-27] MED LIST changes: +Albumin 25% 200 ML ONE; +Sodium Chloride 0.9% 20 ML ONE
[2017-10-27 09:51] LABS: #Eosinphils 0.2 thou/uL (0.0-0.7); #Lymphocytes 0.5 thou/uL (1.20-3.40); #Monocytes 0.5 thou/uL (0.11-0.59); #Neutrophils 2.6 thou/uL (1.40-6.50); %Basophils 1.1 % (0.0-1.0); %Eosinophils 5.6 % (0.0-10.0); %Lymphocytes 13.1 % (21.0-51.0); %Monocytes 12.7 % (0.0-10.0); %Neutrophils 67.5 % (42.0-75.0); Hemoglobin 10.3 g/dL (12.0-16.0); Mean Corpuscular HGB CONC 31.4 g/dL (32.0-36.0); Mean Corpuscular Hemoglobin 28.1 pg (27.0-31.0); Mean Corpuscular Volume 89.4 fl (81.0-99.0); Mean Platelet Volume 8.1 fL (7.4-10.4); Platelet Count 92 thou/uL (130-400); RBC Distribution Width 13.6 % (11.5-14.5); Red Blood Cell (RBC) Count 3.68 mill/uL (4.20-5.40); White Blood Cell (WBC) Count 3.9 thou/uL (4.8-10.8)
[2017-10-27 09:56] LABS: INR-International Normal Ratio 1.1; Prothrombin Time 14.8 SEC (12.0-14.7)
[2017-10-27 09:57] LABS: PTT 38.7 SEC (22.9-36.1)
--- NOTE | 2017-10-27 14:18 | ULT ---
ULTRASOUND GUIDED PARACENTESIS: 10/27/2017 HISTORY: Cirrhosis and refractory ascites. TECHNIQUE: After informed consent was obtained, the patient was placed on the sonography table in the supine pos ition. An appropriate access site was determined with ultrasound guidance. An area in the mid axill eron line, right mid abdomen, was marked and then meticulously prepped and draped in the usual sterile fashion. The skin and subcutaneous tissues were infiltrated with buffered 1% Lidocaine for local an esthesia. A small skin incision was made. Utilizing concurrent real-time ultrasound guidance, a 19 gauge Yueh needle with a 6 Amharic sheath was advanced into the abdomen. After the return of fluid, the sheath was advanced, and the needle was r emoved. After draining a small amount of fluid, the sheath was inadvertently withdrawn, and a new 19 gauge Yueh needle with 5 Amharic sheath was again advanced into the abdomen, utilizing concurrent sylvie l-time ultrasound guidance. Approximately 9 L of cloudy, straw-colored fluid was aspirated. The int roducer sheath was removed, and hemostasis was achieved with direct pressure. A dry, sterile dressin g was placed at the catheter site. The patient was administered albumin intravenously prior to as we ll as during the procedure, as requested. The patient tolerated the procedure well and without immed iate complication. IMPRESSION: Technically successful ultrasound guided paracentesis. POS: [facility]
== END ==
LOC: ULT 09:32
PROVIDERS: ATTEND Internal Medicine Gastroenterology
PROC: BW40ZZZ Ultrasonography of Abdomen (ICD-10-PCS; principal; 2017-10-27)
PROC: 0W9G3ZZ Drainage of Peritoneal Cavity, Percutaneous Approach (ICD-10-PCS; principal; 2017-10-27)
DX: K74.60 Unspecified cirrhosis of liver (principal); R18.8 Other ascites; K76.6 Portal hypertension; R16.0 Hepatomegaly, not elsewhere classified; K31.89 Other diseases of stomach and duodenum; K27.9 Peptic ulcer, site unspecified, unspecified as acute or chronic, without hemorrhage or perforation; K58.0 Irritable bowel syndrome with diarrhea; D64.9 Anemia, unspecified; K21.9 Gastro-esophageal reflux disease without esophagitis; M19.90 Unspecified osteoarthritis, unspecified site; I10 Essential (primary) hypertension; J45.909 Unspecified asthma, uncomplicated; E11.9 Type 2 diabetes mellitus without complications; F41.9 Anxiety disorder, unspecified; Z79.2 Long term (current) use of antibiotics; Z79.899 Other long term (current) drug therapy; Z88.2 Allergy status to sulfonamides; Z88.5 Allergy status to narcotic agent; Z88.0 Allergy status to penicillin; Z88.1 Allergy status to other antibiotic agents; Z87.891 Personal history of nicotine dependence
CPT/HCPCS: 49083; 85025; 85610; 85730; A4216; P9047

== ENCOUNTER 2017-11-03 09:15 | Day surgery (SDC) | payer OTHER ==
[2017-11-02 11:08] VITALS: BMI 29.0
[~2017-11-03 09:15] MED LIST changes: -Albumin 25% 200 ML ONE; -Sodium Chloride 0.9% 20 ML ONE
[2017-11-03] MEDS ORDERED: Albumin 25% 200 ML ONE (09:26)
[2017-11-03] MEDS ORDERED: Sodium Chloride 0.9% 20 ML ONE (10:12)
[2017-11-03 12:18] VITALS: BP 102/65; TEMP 98.1
--- NOTE | 2017-11-03 12:47 | ULT ---
ULTRASOUND GUIDED PARACENTESIS: HISTORY: Ascites. COMPARISON: None. FINDINGS: Technically successful ultrasound-guided paracentesis. A total of 9 L of yellow color ascites was as pirated. There are no immediate or post procedure complications. TECHNIQUE: Consent was obtained to perform an ultrasound-guided paracentesis. The patient's abdomen was evaluat ed. The right lower quadrant was deemed appropriate. The skin was prepped and draped in sterile fas hion. 1% Lidocaine, buffered with sodium bicarbonate, was used for local anesthesia. Under sonograp hic guidance, a 7 British Yueh catheter was advanced into the right lower quadrant peritoneal space. A total of 6 L was collected. Due to patient's coughing, the catheter slipped out. Therefore, the p atient was again prepped and draped in sterile fashion. 1% Lidocaine, buffered with sodium bicarbona te, was again used for local anesthesia. A second 7 British Yueh catheter was advanced into the right lower quadrant. An additional 3 L of yellow-color ascites were aspirated. Post procedure image dem onstrates a small amount of ascites still to be present. The patient tolerated the procedure well. No immediate or post procedure complication. IMPRESSION: Successful ultrasound-guided paracentesis. POS: [facility]
== END 2017-11-03 11:20 | disposition home or self-care (01) ==
LOC: ULT 09:15
PROVIDERS: ATTEND Internal Medicine Gastroenterology
PROC: BW40ZZZ Ultrasonography of Abdomen (ICD-10-PCS; principal; 2017-11-03)
PROC: 0W9G3ZZ Drainage of Peritoneal Cavity, Percutaneous Approach (ICD-10-PCS; principal; 2017-11-03)
DX: R18.8 Other ascites (principal); K74.60 Unspecified cirrhosis of liver; K76.0 Fatty (change of) liver, not elsewhere classified; K58.9 Irritable bowel syndrome, unspecified; D64.9 Anemia, unspecified; K21.9 Gastro-esophageal reflux disease without esophagitis; R16.1 Splenomegaly, not elsewhere classified; M19.90 Unspecified osteoarthritis, unspecified site; I10 Essential (primary) hypertension; J45.909 Unspecified asthma, uncomplicated; E11.9 Type 2 diabetes mellitus without complications; F41.9 Anxiety disorder, unspecified; Z79.2 Long term (current) use of antibiotics; Z79.899 Other long term (current) drug therapy; Z88.2 Allergy status to sulfonamides; Z88.5 Allergy status to narcotic agent; Z88.0 Allergy status to penicillin; Z88.1 Allergy status to other antibiotic agents; Z87.11 Personal history of peptic ulcer disease; Z87.891 Personal history of nicotine dependence
CPT/HCPCS: 49083; A4216; P9047

== ENCOUNTER → 2017-11-10 | Day surgery (SDC) | payer OTHER ==
[2017-11-09 08:08] VITALS: BMI 29.0
[~2017-11-10] MED LIST changes: +Prevnar 13-Val Conj/PF 0.5 ML SYRINGE IM ONE
[2017-11-10 11:12] VITALS: TEMP 97.6
--- NOTE | 2017-11-10 12:04 | ULT ---
ULTRASOUND GUIDED PARACENTESIS: History: Ascites. Comparison: 11-03-17 FINDINGS: Successful ultrasound guided paracentesis. A total of 7 L of yellow colored ascites was aspirated. No immediate or post procedure complications. Technique: Consent was obtained to perform an ultrasound guided paracentesis. The abdomen was evaluated and the right lower quadrant was deemed appropriate. Skin was prepped and draped in sterile fashion. 1% Lidoc lili, buffered with sodium bicarbonate used for local anesthesia. Under ultrasound guidance a 5 Frenc h 7 cm Yueh catheter was advanced into the peritoneal space. Via vacuum bottles, a total of 7 L of ye llow colored ascites was aspirated. Post procedure image demonstrates a small amount of residual asci tia. Patient tolerated the procedure well. No immediate or post procedure complication. IMPRESSION: Successful ultrasound guided paracentesis. POS: [facility]
== END ==
LOC: ULT 09:36
PROVIDERS: ATTEND Internal Medicine Gastroenterology
DX: R18.8 Other ascites (principal); K74.60 Unspecified cirrhosis of liver; K76.0 Fatty (change of) liver, not elsewhere classified; K58.0 Irritable bowel syndrome with diarrhea; D64.9 Anemia, unspecified; K21.9 Gastro-esophageal reflux disease without esophagitis; I10 Essential (primary) hypertension; J45.909 Unspecified asthma, uncomplicated; E11.9 Type 2 diabetes mellitus without complications; F41.9 Anxiety disorder, unspecified; M19.90 Unspecified osteoarthritis, unspecified site; Z79.2 Long term (current) use of antibiotics; Z79.899 Other long term (current) drug therapy; Z88.0 Allergy status to penicillin; Z88.1 Allergy status to other antibiotic agents; Z88.2 Allergy status to sulfonamides; Z88.5 Allergy status to narcotic agent; Z98.890 Other specified postprocedural states; Z87.891 Personal history of nicotine dependence; Z87.11 Personal history of peptic ulcer disease
CPT/HCPCS: 49083

== ENCOUNTER 2017-11-17 08:56 | Day surgery (SDC) | payer OTHER ==
[2017-11-16 08:42] VITALS: BMI 29.0
[2017-11-17] MEDS ORDERED: FLU VACC QS2017-18 36 mo. & older 0.5 ML SYRINGE IM ONE (09:00)
[2017-11-17] MEDS ORDERED: Albumin 25% 200 ML ONE (09:09)
[2017-11-17 09:57] VITALS: BP 111/68; TEMP 97.7
--- NOTE | 2017-11-17 12:13 | ULT ---
ULTRASOUND GUIDED PARACENTESIS: HISTORY: Ascites. COMPARISON: 11/03/2017 FINDINGS: Successful ultrasound-guided paracentesis. A total of 9000 mL of yellow-colored ascites was aspirate d. There were no immediate or post procedure complications. TECHNIQUE: Consent obtained to perform an ultrasound guided paracentesis. The right lower quadrant was prepped and draped in a sterile fashion. Lidocaine 1%, buffered with sodium bicarbonate, was used for local anesthesia. Under ultrasound guidance, a 5 Guyanese, 7 cm VIDDIXeh catheter was advanced into the peritone al space. A total of 9 L of yellow-colored ascites was aspirated. The patient tolerated the procedu re well. No immediate or post procedure complications. IMPRESSION: Successful ultrasound guided paracentesis. POS: [facility]
== END 2017-11-17 11:00 | disposition home or self-care (01) ==
LOC: ULT 08:56
PROVIDERS: ATTEND Internal Medicine Gastroenterology
PROC: 0W9G3ZZ Drainage of Peritoneal Cavity, Percutaneous Approach (ICD-10-PCS; principal; 2017-11-17)
PROC: BW40ZZZ Ultrasonography of Abdomen (ICD-10-PCS; principal; 2017-11-17)
DX: K74.60 Unspecified cirrhosis of liver (principal); R18.8 Other ascites; K76.0 Fatty (change of) liver, not elsewhere classified; K58.9 Irritable bowel syndrome, unspecified; D64.9 Anemia, unspecified; K21.9 Gastro-esophageal reflux disease without esophagitis; M19.90 Unspecified osteoarthritis, unspecified site; I10 Essential (primary) hypertension; J45.909 Unspecified asthma, uncomplicated; E11.9 Type 2 diabetes mellitus without complications; F41.9 Anxiety disorder, unspecified; Z79.51 Long term (current) use of inhaled steroids; Z79.2 Long term (current) use of antibiotics; Z79.899 Other long term (current) drug therapy; Z88.1 Allergy status to other antibiotic agents; Z88.5 Allergy status to narcotic agent; Z88.0 Allergy status to penicillin; Z87.891 Personal history of nicotine dependence
CPT/HCPCS: 49083; P9047

== ENCOUNTER → 2017-11-24 | Day surgery (SDC) | payer OTHER ==
[2017-11-23 08:46] VITALS: BMI 29.0
[2017-11-24 11:29] VITALS: TEMP 98.1
--- NOTE | 2017-11-24 14:11 | ULT ---
ULTRASOUND GUIDED PARACENTESIS: HISTORY: Ascites. COMPARISON: Multiple prior exams. TECHNIQUE/FINDINGS: The patient is brought to the ultrasound suite. All questions were answered. Informed consent was already obtained. Timeout was performed. The patient's right lower quadrant was prepped and draped in normal sterile fashion. Four mL of Lidocaine was instilled into the superficial and deep soft tissues. Using a 5 Micronesian Yueh needle, the peritoneal space was accessed. Nine liters of fluid were aspirated without complication . IMPRESSION: Technically successful ultrasound-guided paracentesis with removal of 9 liters of ascites. POS: [facility]
== END ==
LOC: ULT 09:16
PROVIDERS: ATTEND Internal Medicine Gastroenterology
PROC: 0W9G3ZZ Drainage of Peritoneal Cavity, Percutaneous Approach (ICD-10-PCS; principal; 2017-11-24)
PROC: BW40ZZZ Ultrasonography of Abdomen (ICD-10-PCS; principal; 2017-11-24)
DX: R18.8 Other ascites (principal); K74.60 Unspecified cirrhosis of liver; I85.10 Secondary esophageal varices without bleeding; K72.90 Hepatic failure, unspecified without coma; K21.9 Gastro-esophageal reflux disease without esophagitis; M19.90 Unspecified osteoarthritis, unspecified site; I10 Essential (primary) hypertension; J45.909 Unspecified asthma, uncomplicated; E11.9 Type 2 diabetes mellitus without complications; F41.9 Anxiety disorder, unspecified; Z88.0 Allergy status to penicillin; Z88.1 Allergy status to other antibiotic agents; Z88.2 Allergy status to sulfonamides; Z88.5 Allergy status to narcotic agent; Z79.899 Other long term (current) drug therapy
CPT/HCPCS: 49083

== ENCOUNTER 2017-12-01 08:50 | Day surgery (SDC) | payer OTHER ==
[2017-12-01 09:15] LABS: Hemoglobin 10.9 g/dL (12.0-16.0); Mean Corpuscular HGB CONC 31.7 g/dL (32.0-36.0); Mean Corpuscular Hemoglobin 28.8 pg (27.0-31.0); Mean Corpuscular Volume 90.8 fl (81.0-99.0); Mean Platelet Volume 8.1 fL (7.4-10.4); Platelet Count 92 thou/uL (130-400); RBC Distribution Width 13.6 % (11.5-14.5); Red Blood Cell (RBC) Count 3.78 mill/uL (4.20-5.40); White Blood Cell (WBC) Count 3.5 thou/uL (4.8-10.8)
[2017-12-01 09:31] LABS: INR-International Normal Ratio 1.1; Prothrombin Time 14.4 SEC (12.0-14.7)
[2017-12-01 09:32] LABS: PTT 40.1 SEC (22.9-36.1)
[2017-12-01 10:02] LABS: Band 2 % (5-11); Eosinophils 2 % (0-10); Lymphocytes 23 % (21-51); MDiff Complete? YES; Monocytes 11 % (0-10); Neutrophil 59 % (42-75); PLT Morphology Comment Appears Decreased; Polychromasia SLIGHT = 2-3 cells (100X) (0-2/hpf); Reactive Lymphocytes 2 % (0-10)
[2017-12-01 12:26] VITALS: BP 96/62; TEMP 98.8
--- NOTE | 2017-12-01 16:38 | ULT ---
ULTRASOUND GUIDED PARACENTESIS: DATE: 12/01/17. HISTORY: Cirrhosis and recurrent ascites. TECHNIQUE: After informed consent was obtained, the patient was placed on the sonography table in supine positio n. Limited sonographic evaluation of the abdomen was performed. An area in the mid axillary line le ft mid abdomen was marked and meticulously prepped and draped in the usual sterile fashion. The skin and subcutaneous tissues were infiltrated with buffered 1% Lidocaine for local anesthesia at the int ended puncture site. A small skin incision was made. Utilizing concurrent real-time ultrasound guidance, a 19-gauge Ziklag Systemseh needle with a 5 Khmer sheath was advanced into the abdomen. After the return of fluid, the sheath w as advanced, and the needle was removed. Approximately 9 L of clear straw-colored fluid was aspirate d. Introducer sheath was removed, and hemostasis was achieved with direct pressure. A dry sterile d ressing was placed. The patient was administered albumin intravenously during the exam as requested. The patient tolerated the procedure well and without immediate complication. The patient was transpo rted to the radiology nurse's holding area for further monitoring prior to discharge. IMPRESSION: Technically successful ultrasound-guided paracentesis. POS: [facility]
== END 2017-12-01 11:15 | disposition home or self-care (01) ==
LOC: ULT 08:50
PROVIDERS: ATTEND Internal Medicine Gastroenterology
PROC: 0W9G3ZZ Drainage of Peritoneal Cavity, Percutaneous Approach (ICD-10-PCS; principal; 2017-12-01)
PROC: BW40ZZZ Ultrasonography of Abdomen (ICD-10-PCS; principal; 2017-12-01)
DX: R18.8 Other ascites (principal); K74.60 Unspecified cirrhosis of liver; Z79.899 Other long term (current) drug therapy; Z88.0 Allergy status to penicillin; Z88.1 Allergy status to other antibiotic agents; Z88.5 Allergy status to narcotic agent
CPT/HCPCS: 36415; 49083; 85025; 85610; 85730

== ENCOUNTER 2017-12-08 08:39 | Day surgery (SDC) | payer OTHER ==
[~2017-12-08 08:39] MED LIST changes: +Albumin 25% 200 ML ONE; -FLU VACC QS2017-18 36 mo. & older 0.5 ML SYRINGE IM ONE; -Prevnar 13-Val Conj/PF 0.5 ML SYRINGE IM ONE
[2017-12-08] MEDS ORDERED: Sodium Bicarbonate 2.5 MEQ/5 ML VIAL ONE ×2 (08:54→09:16)
[2017-12-08] MEDS ORDERED: Albumin 25% 200 ML ONE (08:54)
[2017-12-08] MEDS ORDERED: Lidocaine 1% PF 5 ML VIAL ONE (08:54)
[2017-12-08 11:00] VITALS: BP 100/65; TEMP 98.6
--- NOTE | 2017-12-08 11:14 | ULT ---
ULTRASOUND GUIDED PARACENTESIS: 12/08/2017 HISTORY: Cirrhosis and refractory ascites. TECHNIQUE: After informed consent was obtained, the patient was placed on the sonography table in the supine pos ition. A limited sonographic evaluation of the abdomen was performed. An area in the mid axillary l ine, right upper quadrant, was marked, and the area was meticulously prepped and draped in the usual sterile fashion. The skin and subcutaneous tissues were infiltrated with buffered 1% Lidocaine for local anesthesia. A small incision was made. Utilizing concurrent real-time ultrasound guidance, a 19 gauge Local Motioneh needl e with a 5 Italian sheath was advanced into the abdomen. After the return of fluid, the sheath was ad vanced, and the needle was removed. Approximately 8800 mL of slightly cloudy straw colored fluid was aspirated. The patient was administered 50 g of albumin during the procedure. After the sheath was removed, hem ostasis was achieved with direct pressure, and a dry, sterile dressing was placed at the puncture sit e. The patient tolerated the procedure well and without immediate complication. IMPRESSION: Technically successful ultrasound guided paracentesis. POS: [facility]
== END 2017-12-08 10:25 | disposition home or self-care (01) ==
LOC: ULT 08:39
PROVIDERS: ATTEND Internal Medicine Gastroenterology
PROC: BW40ZZZ Ultrasonography of Abdomen (ICD-10-PCS; principal; 2017-12-08)
PROC: 0W9G3ZZ Drainage of Peritoneal Cavity, Percutaneous Approach (ICD-10-PCS; principal; 2017-12-08)
DX: K74.60 Unspecified cirrhosis of liver (principal); R18.8 Other ascites; Z88.0 Allergy status to penicillin; Z88.1 Allergy status to other antibiotic agents; Z88.5 Allergy status to narcotic agent
CPT/HCPCS: 49083; J2001; P9047

== ENCOUNTER 2017-12-15 09:35 | Day surgery (SDC) | payer OTHER ==
[2017-12-14 11:32] VITALS: BMI 29.0
[2017-12-15] MEDS ORDERED: Albumin 25% 200 ML ONE (10:06)
[2017-12-15 12:17] VITALS: BP 92/61; TEMP 98.2
--- NOTE | 2017-12-15 14:26 | ULT ---
ULTRASOUND GUIDED PARACENTESIS: 12/15/2017 HISTORY: Symptomatic ascites. FINDINGS: Informed consent obtained prior to the procedure. Pre-procedural imaging demonstrates extensive abdominal and pelvic ascites. The skin overlying the r ight mid abdomen was prepped and draped in the normal sterile fashion and anesthetized with 1% buffer ed Lidocaine. With direct sonographic guidance, a 5 gauge Dead Inventory Management Systemeh catheter was advanced into the ascite s and removal of the stylet yielded yellow fluid (8450 mL was removed). The patient tolerated the pr ocedure well. IMPRESSION: Successful ultrasound-guided paracentesis, as above. POS: [facility]
== END 2017-12-15 12:00 | disposition home or self-care (01) ==
LOC: ULT 09:35
PROVIDERS: ATTEND Internal Medicine Gastroenterology
PROC: 0W9G3ZZ Drainage of Peritoneal Cavity, Percutaneous Approach (ICD-10-PCS; principal; 2017-12-15)
PROC: BW40ZZZ Ultrasonography of Abdomen (ICD-10-PCS; principal; 2017-12-15)
DX: R18.8 Other ascites (principal); K74.60 Unspecified cirrhosis of liver; K72.90 Hepatic failure, unspecified without coma; K21.9 Gastro-esophageal reflux disease without esophagitis; I10 Essential (primary) hypertension; J45.909 Unspecified asthma, uncomplicated; E11.9 Type 2 diabetes mellitus without complications; F41.9 Anxiety disorder, unspecified; Z87.891 Personal history of nicotine dependence; Z79.52 Long term (current) use of systemic steroids; Z79.899 Other long term (current) drug therapy; Z88.2 Allergy status to sulfonamides; Z88.0 Allergy status to penicillin; Z88.5 Allergy status to narcotic agent; Z88.1 Allergy status to other antibiotic agents
CPT/HCPCS: 49083; P9047

== ENCOUNTER → 2017-12-22 | Day surgery (SDC) | payer OTHER ==
[~2017-12-22] MED LIST changes: +Lidocaine 1% PF 5 ML VIAL ONE; +Prevnar 13-Val Conj/PF 0.5 ML SYRINGE IM ONE
[2017-12-22 08:49] VITALS: BMI 26.6
[2017-12-22 10:52] VITALS: TEMP 97.7
--- NOTE | 2017-12-22 11:53 | ULT ---
SONOGRAPHIC GUIDED PARACENTESIS: HISTORY: Recurrent ascites. PROCEDURE: After explaining the procedure and answering all questions, a sonographic survey showed a large amoun t of free fluid. Sterile technique, buffered local anesthesia, sonographic guidance, and a right lateral abdominal pamela bingham were used to carefully advance a 19 gauge Yueh needle and catheter into the free fluid. The ca theter was left to drainage of a volume of 7 L of turbid, yellow liquid. Minimal fluid remained. Th e catheter was removed. The patient tolerated the procedure well and was returned to the [facility] in good condition for further monitoring. IMPRESSION: Technically successful sonographic guided paracentesis. POS: [facility]
== END ==
LOC: ULT 09:17
PROVIDERS: ATTEND Internal Medicine Gastroenterology
PROC: BW40ZZZ Ultrasonography of Abdomen (ICD-10-PCS; principal; 2017-12-22)
PROC: 0W9G3ZZ Drainage of Peritoneal Cavity, Percutaneous Approach (ICD-10-PCS; principal; 2017-12-22)
DX: R18.8 Other ascites (principal); K74.60 Unspecified cirrhosis of liver; K76.0 Fatty (change of) liver, not elsewhere classified; K58.9 Irritable bowel syndrome, unspecified; D64.9 Anemia, unspecified; K21.9 Gastro-esophageal reflux disease without esophagitis; M19.90 Unspecified osteoarthritis, unspecified site; I10 Essential (primary) hypertension; J45.909 Unspecified asthma, uncomplicated; E11.9 Type 2 diabetes mellitus without complications; F41.9 Anxiety disorder, unspecified; Z79.2 Long term (current) use of antibiotics; Z79.899 Other long term (current) drug therapy; Z88.2 Allergy status to sulfonamides; Z88.0 Allergy status to penicillin; Z88.5 Allergy status to narcotic agent; Z88.1 Allergy status to other antibiotic agents; Z98.890 Other specified postprocedural states; Z87.891 Personal history of nicotine dependence
CPT/HCPCS: 49083; J2001; P9047

== ENCOUNTER 2017-12-29 08:51 | Day surgery (SDC) | payer OTHER ==
[2017-12-29] MEDS ORDERED: Albumin 25% 200 ML ONE (09:15)
[2017-12-29] MEDS ORDERED: Lidocaine 1% PF 5 ML VIAL ONE (09:41)
[2017-12-29 12:54] VITALS: BP 105/63; TEMP 97.6
--- NOTE | 2017-12-29 13:24 | ULT ---
ULTRASOUND GUIDED PARACENTESIS THERAPEUTIC: DATE: 12/29/17. HISTORY: A 52-year-old female with symptomatic ascites. TECHNIQUE: Signed informed consent obtained. Left lower quadrant was selected. The overlying skin was prepped and draped in the usual sterile fashion. A 25-gauge needle was used to apply buffered Lidocaine. A 5 Maltese Roozt.comeh catheter with stylette advanced into peritoneal cavity. Stylette removed. Yueh cathet er connected to a series of evacuated bottles via plastic tubing. A total of 8450 mL of nonhemorrhag ic straw-colored fluid was drained. The catheter was removed. The patient tolerated the procedure w ell. No complications. IMPRESSION: Successful paracentesis, with drainage of 8.45 L of ascites fluid. POS: [facility]
== END 2017-12-29 10:50 | disposition home or self-care (01) ==
LOC: ULT 08:51
PROVIDERS: ATTEND Internal Medicine Gastroenterology
PROC: 0W9G3ZZ Drainage of Peritoneal Cavity, Percutaneous Approach (ICD-10-PCS; principal; 2017-12-29)
PROC: BW40ZZZ Ultrasonography of Abdomen (ICD-10-PCS; principal; 2017-12-29)
DX: K74.60 Unspecified cirrhosis of liver (principal); R18.8 Other ascites; K76.6 Portal hypertension; K31.89 Other diseases of stomach and duodenum; K72.90 Hepatic failure, unspecified without coma; K21.9 Gastro-esophageal reflux disease without esophagitis; M19.90 Unspecified osteoarthritis, unspecified site; I10 Essential (primary) hypertension; J45.909 Unspecified asthma, uncomplicated; F41.9 Anxiety disorder, unspecified; E11.9 Type 2 diabetes mellitus without complications; Z87.891 Personal history of nicotine dependence; Z79.899 Other long term (current) drug therapy; Z79.51 Long term (current) use of inhaled steroids; Z88.0 Allergy status to penicillin; Z88.2 Allergy status to sulfonamides; Z88.1 Allergy status to other antibiotic agents; Z88.5 Allergy status to narcotic agent
CPT/HCPCS: 49083; J2001; P9047

== ENCOUNTER 2018-01-04 08:59 | Outpatient (CLI) | payer OTHER | END 2018-01-04 09:00 | disposition home or self-care (01) | LOC: BICMAMMO 08:59 | PROVIDERS: ATTEND Nurse Practitioner Family | DX: Z12.31 Encounter for screening mammogram for malignant neoplasm of breast (principal) | CPT/HCPCS: 77067 ==

== ENCOUNTER 2018-01-05 08:20 | Day surgery (SDC) | payer OTHER ==
[2018-01-05 08:45] LABS: #Basophils 0.1 thou/uL (0.0-0.2); #Eosinphils 0.2 thou/uL (0.0-0.7); #Lymphocytes 0.4 thou/uL (1.20-3.40); #Monocytes 0.5 thou/uL (0.11-0.59); #Neutrophils 2.4 thou/uL (1.40-6.50); %Basophils 1.5 % (0.0-1.0); %Eosinophils 5.1 % (0.0-10.0); %Lymphocytes 10.1 % (21.0-51.0); %Monocytes 12.9 % (0.0-10.0); %Neutrophils 70.3 % (42.0-75.0); Hemoglobin 10.9 g/dL (12.0-16.0); Mean Corpuscular HGB CONC 32.6 g/dL (32.0-36.0); Mean Corpuscular Hemoglobin 29.1 pg (27.0-31.0); Mean Corpuscular Volume 89.2 fl (81.0-99.0); Platelet Count 90 thou/uL (130-400); RBC Distribution Width 12.6 % (11.5-14.5); Red Blood Cell (RBC) Count 3.74 mill/uL (4.20-5.40); White Blood Cell (WBC) Count 3.5 thou/uL (4.8-10.8)
[2018-01-05 08:49] LABS: INR-International Normal Ratio 1.2; Prothrombin Time 15.4 SEC (12.0-14.7)
[2018-01-05 08:50] LABS: PTT 39.8 SEC (22.9-36.1)
[2018-01-05] MEDS ORDERED: Albumin 25% 200 ML ONE (09:05)
[2018-01-05] MEDS ORDERED: Lidocaine 1% PF 5 ML VIAL ONE (09:36)
[2018-01-05 11:16] VITALS: BP 106/69; TEMP 97.7
[2018-01-05 11:39] VITALS: BMI 25.5
--- NOTE | 2018-01-05 12:10 | ULT ---
ULTRASOUND GUIDED PARACENTESIS: HISTORY: Ascites. COMPARISON: 12/29/2017 FINDINGS: Successful ultrasound guided paracentesis. A total of 8450 mL of yellow-colored ascites was aspirate d. No immediate or post procedure complications. TECHNIQUE: Consent obtained for ultrasound guided paracentesis. The patient's abdomen as evaluated. The right lower quadrant was deemed appropriate. The skin was prepped and draped in a sterile fashion, and 1% Lidocaine, buffered with sodium bicarbonate, was used for local anesthesia. Under ultrasound guidanc e, a 5 Syrian, 7 cm Yueh catheter was advanced into the peritoneal space. A total of 8450 mL of yell ow-colored ascites was aspirated. The patient tolerated the procedure well. No immediate or post pr ocedure complications. IMPRESSION: Successful ultrasound guided paracentesis. POS: [facility]
== END 2018-01-05 11:00 | disposition home or self-care (01) ==
LOC: ULT 08:20
PROVIDERS: ATTEND Internal Medicine Gastroenterology
PROC: 0W9G3ZX Drainage of Peritoneal Cavity, Percutaneous Approach, Diagnostic (ICD-10-PCS; principal; 2018-01-05)
PROC: BW40ZZZ Ultrasonography of Abdomen (ICD-10-PCS; principal; 2018-01-05)
DX: K74.60 Unspecified cirrhosis of liver (principal); R18.8 Other ascites; K72.90 Hepatic failure, unspecified without coma; R16.0 Hepatomegaly, not elsewhere classified; K21.9 Gastro-esophageal reflux disease without esophagitis; I10 Essential (primary) hypertension; M19.90 Unspecified osteoarthritis, unspecified site; J45.909 Unspecified asthma, uncomplicated; E11.9 Type 2 diabetes mellitus without complications; F41.9 Anxiety disorder, unspecified; Z88.0 Allergy status to penicillin; Z88.2 Allergy status to sulfonamides; Z88.1 Allergy status to other antibiotic agents; Z88.5 Allergy status to narcotic agent; Z79.899 Other long term (current) drug therapy; Z98.890 Other specified postprocedural states; Z87.891 Personal history of nicotine dependence
CPT/HCPCS: 49083; 85025; 85610; 85730; J2001; P9047

== ENCOUNTER 2018-01-12 09:21 | Day surgery (SDC) | payer OTHER ==
[2018-01-11 12:13] VITALS: BMI 28.0
[2018-01-12] MEDS ORDERED: Albumin 25% 200 ML ONE (09:46)
[2018-01-12] MEDS ORDERED: Lidocaine 1% PF 5 ML VIAL ONE (09:48)
[2018-01-12 12:00] VITALS: BP 93/59; TEMP 97.9
--- NOTE | 2018-01-12 15:12 | ULT ---
ULTRASOUND GUIDED PARACENTESIS: INDICATION: Ascites. TECHNIQUE: Informed consent was obtained. Preprocedure ultrasound was performed. A site overlying the left low er quadrant of the abdomen was marked. The site was prepped and draped in the usual sterile fashion. Buffered 1% Lidocaine was administered to the underlying subcutaneous tissues. Under ultrasound gu idance, a 5 Sri Lankan Yueh catheter is guided down into the largest collection in the left lower quadran t. There was removal of 8250 cc of peritoneal fluid. The patient tolerated the procedure without di fficulty. IMPRESSION: Removal of 8250 cc of peritoneal fluid by ultrasound-guided paracentesis. POS: [facility]
== END 2018-01-12 11:50 | disposition home or self-care (01) ==
LOC: ULT 09:21
PROVIDERS: ATTEND Internal Medicine Gastroenterology
PROC: 0W9G3ZZ Drainage of Peritoneal Cavity, Percutaneous Approach (ICD-10-PCS; principal; 2018-01-12)
PROC: BW40ZZZ Ultrasonography of Abdomen (ICD-10-PCS; principal; 2018-01-12)
DX: R18.8 Other ascites (principal); K74.60 Unspecified cirrhosis of liver; K72.90 Hepatic failure, unspecified without coma; K21.9 Gastro-esophageal reflux disease without esophagitis; M19.90 Unspecified osteoarthritis, unspecified site; I10 Essential (primary) hypertension; J45.909 Unspecified asthma, uncomplicated; E11.9 Type 2 diabetes mellitus without complications; F41.9 Anxiety disorder, unspecified; K58.9 Irritable bowel syndrome, unspecified; Z88.1 Allergy status to other antibiotic agents; Z88.5 Allergy status to narcotic agent; Z88.2 Allergy status to sulfonamides; Z87.891 Personal history of nicotine dependence; Z79.899 Other long term (current) drug therapy; Z79.51 Long term (current) use of inhaled steroids
CPT/HCPCS: 49083; J2001; P9047

== ENCOUNTER 2018-01-19 08:41 | Day surgery (SDC) | payer OTHER ==
[2018-01-19] MEDS ORDERED: Albumin 25% 200 ML ONE (08:55)
--- NOTE | 2018-01-19 10:28 | ULT ---
ULTRASOUND GUIDED PARACENTESIS: Date: 01-19-18 Comparison: 01-12-18 History: Symptomatic ascites. FINDINGS: Informed consent was obtained prior to the procedure. Pre procedural imaging demonstrates significant ascites throughout the abdomen/pelvis. Skin overlying the left lower quadrant was prepped and draped in normal sterile fashion and anestheti zed with 1% buffered Lidocaine. With direct sonographic guidance, a 5 Czech Yueh catheter was advanced into the ascites and removal of stylet yields yellow fluid. A total of 8300 cc were removed. The patient tolerated the procedure w ell. IMPRESSION: Successful ultrasound guided paracentesis yielding 8300 cc of yellow fluid. POS: [facility]
[2018-01-19 11:08] VITALS: BP 96/60; TEMP 97.6
== END 2018-01-19 10:10 | disposition home or self-care (01) ==
LOC: ULT 08:41
PROVIDERS: ATTEND Internal Medicine Gastroenterology
PROC: 0W9G3ZZ Drainage of Peritoneal Cavity, Percutaneous Approach (ICD-10-PCS; principal; 2018-01-19)
DX: R18.8 Other ascites (principal); K74.60 Unspecified cirrhosis of liver; K72.90 Hepatic failure, unspecified without coma; I85.10 Secondary esophageal varices without bleeding; I10 Essential (primary) hypertension; M19.90 Unspecified osteoarthritis, unspecified site; E11.9 Type 2 diabetes mellitus without complications; D64.9 Anemia, unspecified; Z87.891 Personal history of nicotine dependence; Z88.1 Allergy status to other antibiotic agents; Z88.5 Allergy status to narcotic agent; Z88.0 Allergy status to penicillin; Z88.2 Allergy status to sulfonamides; Z79.899 Other long term (current) drug therapy
CPT/HCPCS: 49083; P9047

== ENCOUNTER 2018-01-26 08:43 | Day surgery (SDC) | payer OTHER ==
[2018-01-25 15:10] VITALS: BMI 25.8
[2018-01-26] MEDS ORDERED: Sodium Bicarbonate 2.5 MEQ/5 ML VIAL ONE (10:06)
[2018-01-26] MEDS ORDERED: Lidocaine 1% PF 5 ML VIAL ONE (10:06)
[2018-01-26] MEDS ORDERED: Albumin 25% 200 ML ONE (10:06)
--- NOTE | 2018-01-26 13:15 | ULT ---
PROCEDURE ULTRASOUND GUIDED ABDOMINAL PARACENTESIS: INDICATION: Cirrhosis with recurrent ascites. FINDINGS: Four-quadrant ultrasound showed large ascites in all quadrants. The left lower quadrant was chosen f or puncture. Eight liters of yellowish clear ascitic fluid removed. Postprocdure ultrasound shows o nly mild residual ascites. PROCEDURE NOTE: Four-quadrant ultrasound shows large ascites in all quadrants. The left lower quadrant was chosen fo r puncture. The overlying skin was prepped and draped in a sterile manner. Local anesthesia was adm inistered with Lidocaine. A tiny skin incision was made. A 5 Slovenian Red Falcon Developmenteh needle with catheter was i ntroduced into fluid in the left lower quadrant under ultrasound guidance. The needle was removed as the catheter was advanced. The catheter was then attached to suction drainage. Eight liters of asc itic fluid removed. The patient tolerated the procedure well and there were no problems or complicat ions. POS: [facility]
[2018-01-26 15:42] VITALS: BP 95/60; TEMP 98.6
== END 2018-01-26 11:20 | disposition home or self-care (01) ==
LOC: ULT 08:43
PROVIDERS: ATTEND Internal Medicine Gastroenterology
PROC: 0W9G3ZZ Drainage of Peritoneal Cavity, Percutaneous Approach (ICD-10-PCS; principal; 2018-01-26)
DX: R18.8 Other ascites (principal); K74.60 Unspecified cirrhosis of liver; Z88.0 Allergy status to penicillin; Z88.5 Allergy status to narcotic agent
CPT/HCPCS: 49083; J2001; P9047

== ENCOUNTER 2018-02-02 08:13 | Day surgery (SDC) | payer OTHER ==
[2018-02-02] MEDS ORDERED: Lidocaine 1% PF 5 ML VIAL ONE (09:12)
[2018-02-02] MEDS ORDERED: Albumin 25% 200 ML ONE (09:12)
[2018-02-02] MEDS ORDERED: Sodium Bicarbonate 2.5 MEQ/5 ML VIAL ONE (09:12)
[2018-02-02 10:58] VITALS: TEMP 98
[2018-02-02 10:59] VITALS: BP 95/42
--- NOTE | 2018-02-02 12:24 | ULT ---
SONOGRAPHIC GUIDED PARACENTESIS: Date: 02/02/18 HISTORY: Recurrent ascites. FINDINGS: After explaining the procedure and answering all questions, sonographic survey shows a large amount o f free fluid. Sterile technique, buffered local anesthesia, sonographic guidance, and a left lower qu adrant approach were used to carefully advance a 19 gauge Yueh needle and catheter into the free flui d. Catheter was left to drain a total volume of 7.1 liters slightly cloudy yellow liquid. Postprocedu re imaging shows minimal residual fluid. The patient tolerated the procedure well and is eventually d ismissed in good condition. IMPRESSION: Technically successful sonographic guided paracentesis. POS: [facility]
== END 2018-02-02 10:25 | disposition home or self-care (01) ==
LOC: ULT 08:13
PROVIDERS: ATTEND Internal Medicine Gastroenterology
PROC: 0W9G3ZZ Drainage of Peritoneal Cavity, Percutaneous Approach (ICD-10-PCS; principal; 2018-02-02)
DX: R18.8 Other ascites (principal)
CPT/HCPCS: 49083; J2001; P9047

== ENCOUNTER → 2018-02-09 | Day surgery (SDC) | payer OTHER ==
[2018-02-08 11:01] VITALS: BMI 27.3
[~2018-02-09] MED LIST changes: -Lidocaine 1% PF 5 ML VIAL ONE; -Prevnar 13-Val Conj/PF 0.5 ML SYRINGE IM ONE
[2018-02-09 09:13] LABS: Hemoglobin 11.4 g/dL (12.0-16.0); Mean Corpuscular HGB CONC 33.1 g/dL (32.0-36.0); Mean Corpuscular Hemoglobin 28.5 pg (27.0-31.0); Mean Corpuscular Volume 86.2 fl (81.0-99.0); Mean Platelet Volume 7.9 fL (7.4-10.4); Platelet Count 91 thou/uL (130-400); RBC Distribution Width 12.4 % (11.5-14.5); Red Blood Cell (RBC) Count 3.99 mill/uL (4.20-5.40); White Blood Cell (WBC) Count 4.2 thou/uL (4.8-10.8)
[2018-02-09 09:15] LABS: INR-International Normal Ratio 1.1; PTT 36.7 SEC (22.9-36.1); Prothrombin Time 14.7 SEC (12.0-14.7)
[2018-02-09 09:56] LABS: Band 9 % (5-11); Eosinophils 8 % (0-10); Lymphocytes 19 % (21-51); MDiff Complete? YES; Monocytes 10 % (0-10); Neutrophil 54 % (42-75); PLT Morphology Comment Appears Decreased
[2018-02-09 10:23] VITALS: TEMP 97.4
--- NOTE | 2018-02-09 13:01 | ULT ---
ULTRASOUND GUIDED PARACENTESIS: DATE: 02/09/18. COMPARISON: None. HISTORY: Symptomatic ascites. FINDINGS: Informed consent obtained prior to the procedure. Preprocedural imaging demonstrates large volume ascites throughout the abdomen/pelvis. Mid right abd omen was prepped and draped in normal sterile fashion and anesthetized with 1% buffered Lidocaine. With direct sonographic guidance, a 5 Indian Public Good Softwareeh catheter was advanced into the ascites and removal of the stylette yields yellow fluid. 8100 cc were removed. The patient tolerated the procedure well . IMPRESSION: Successful ultrasound-guided paracentesis as above. POS: [facility]
== END ==
LOC: ULT 08:50
PROVIDERS: ATTEND Internal Medicine Gastroenterology
PROC: 0W9G3ZZ Drainage of Peritoneal Cavity, Percutaneous Approach (ICD-10-PCS; principal; 2018-02-09)
DX: R18.8 Other ascites (principal); K74.60 Unspecified cirrhosis of liver; I85.10 Secondary esophageal varices without bleeding; J44.9 Chronic obstructive pulmonary disease, unspecified; E11.9 Type 2 diabetes mellitus without complications; D64.9 Anemia, unspecified; F41.9 Anxiety disorder, unspecified; F32.9 Major depressive disorder, single episode, unspecified; K21.9 Gastro-esophageal reflux disease without esophagitis; M19.90 Unspecified osteoarthritis, unspecified site; K44.9 Diaphragmatic hernia without obstruction or gangrene; G89.29 Other chronic pain; M54.9 Dorsalgia, unspecified; Z88.5 Allergy status to narcotic agent; Z88.0 Allergy status to penicillin
CPT/HCPCS: 36415; 49083; 85025; 85610; 85730; P9047

== ENCOUNTER 2018-02-16 08:10 | Day surgery (SDC) | payer OTHER ==
[2018-02-16] MEDS ORDERED: Albumin 25% 200 ML ONE (08:52)
[2018-02-16] MEDS ORDERED: Sodium Chloride 0.9% 20 ML ONE (09:21)
[2018-02-16 10:35] VITALS: BP 98/66; TEMP 97.8; BMI 28.5
--- NOTE | 2018-02-16 10:57 | ULT ---
ULTRASOUND GUIDED PARACENTESIS: Pre-procedure diagnosis: Ascites. Post-procedure diagnosis: Ascites. [place]: Mario. Complications: None. Specimen: 8300 ml of straw-colored fluid. Anesthesia: 5 ml of buffered 1% Lidocaine. Technique: Prior to the procedure, the risks and benefits of an ultrasound guided paracentesis were explained to the patient and she consented for the procedure. FINDINGS: The largest fluid collection is seen in the right lower quadrant of the abdomen. This area was preppe d and draped in the usual sterile fashion. Lidocaine was used to anesthetize the skin and soft tissues down towards the peritoneal cavity. A sma ll skin incision was made allowing for passage of the D-Shareeh needle and catheter. This was then placed using ultrasound guidance into the peritoneal cavity. The catheter was left in place and the needle r emoved. The catheter was connected to multiple vacuum bottles. A total of 8300 ml of fluid was remove d. After the drainage, no residual fluid was seen in the right lower quadrant of the abdomen. IMPRESSION: Status post successful ultrasound guided paracentesis. POS: [facility]
== END 2018-02-16 10:15 | disposition home or self-care (01) ==
LOC: ULT 08:10
PROVIDERS: ATTEND Internal Medicine Gastroenterology
PROC: 0W9G3ZZ Drainage of Peritoneal Cavity, Percutaneous Approach (ICD-10-PCS; principal; 2018-02-16)
DX: R18.8 Other ascites (principal); J44.9 Chronic obstructive pulmonary disease, unspecified; I10 Essential (primary) hypertension; F41.9 Anxiety disorder, unspecified; F32.9 Major depressive disorder, single episode, unspecified; M19.90 Unspecified osteoarthritis, unspecified site; K44.9 Diaphragmatic hernia without obstruction or gangrene; E11.9 Type 2 diabetes mellitus without complications; G89.29 Other chronic pain; M54.9 Dorsalgia, unspecified; K21.9 Gastro-esophageal reflux disease without esophagitis; Z88.5 Allergy status to narcotic agent; Z88.0 Allergy status to penicillin
CPT/HCPCS: 49083; A4216; P9047

== ENCOUNTER 2018-02-23 08:24 | Day surgery (SDC) | payer OTHER ==
[2018-02-22 13:27] VITALS: BMI 23.8
[2018-02-23] MEDS ORDERED: Lidocaine 1% PF 5 ML VIAL ONE (08:45)
[2018-02-23] MEDS ORDERED: Albumin 25% 200 ML ONE (08:45)
[2018-02-23 10:32] VITALS: BP 106/65; TEMP 98.1
--- NOTE | 2018-02-23 12:15 | ULT ---
ULTRASOUND GUIDED PARACENTESIS: DATE: 02/23/18. COMPARISON: None. HISTORY: Symptomatic ascites. FINDINGS: Informed consent obtained prior to the procedure. Preprocedural imaging demonstrates a large volume ascites throughout the abdomen and pelvis. Right abdomen is prepped and draped in normal sterile fas hion. The skin is anesthetized with 1% buffered Lidocaine. With direct sonographic guidance, a 5 Fr ench [place] catheter is advanced into the ascites. Removal of stylette yields yellow fluid. Eight lit ers were removed. The patient tolerated the procedure well. IMPRESSION: Successful ultrasound-guided paracentesis yielding 8 liters of yellow fluid. POS: [facility]
== END 2018-02-23 10:20 | disposition home or self-care (01) ==
LOC: ULT 08:24
PROVIDERS: ATTEND Internal Medicine Gastroenterology
PROC: 0W9G3ZZ Drainage of Peritoneal Cavity, Percutaneous Approach (ICD-10-PCS; principal; 2018-02-23)
DX: R18.8 Other ascites (principal); K72.90 Hepatic failure, unspecified without coma; K74.60 Unspecified cirrhosis of liver; K76.0 Fatty (change of) liver, not elsewhere classified; I85.10 Secondary esophageal varices without bleeding; K21.9 Gastro-esophageal reflux disease without esophagitis; K44.9 Diaphragmatic hernia without obstruction or gangrene; D64.9 Anemia, unspecified; I10 Essential (primary) hypertension; M19.90 Unspecified osteoarthritis, unspecified site; J45.909 Unspecified asthma, uncomplicated; F41.9 Anxiety disorder, unspecified; Z87.891 Personal history of nicotine dependence; Z88.2 Allergy status to sulfonamides; Z88.5 Allergy status to narcotic agent; Z88.1 Allergy status to other antibiotic agents; Z79.899 Other long term (current) drug therapy; Z79.52 Long term (current) use of systemic steroids
CPT/HCPCS: 49083; J2001; P9047

== ENCOUNTER 2018-03-01 09:31 | Day surgery (SDC) | payer OTHER ==
[2018-03-01] MEDS ORDERED: Albumin 25% 200 ML ONE (10:07)
[2018-03-01] MEDS ORDERED: Lidocaine 1% PF 5 ML VIAL ONE (10:07)
--- NOTE | 2018-03-01 12:36 | ULT ---
ULTRASOUND GUIDED PARACENTESIS: 03/01/2018 HISTORY: Cirrhosis and refractory ascites. TECHNIQUE: After informed consent was obtained, the patient was placed on the sonography table in the supine pos ition. Limited sonographic evaluation of the abdomen was performed. An area in the mid axillary ksenia e, right upper quadrant, was marked and meticulously prepped and draped in the usual sterile fashion. The patient was administered albumin intravenously, as requested, during the procedure. The skin and subcutaneous tissues were infiltrated with buffered 1% Lidocaine for local anesthesia at the intended puncture site. A small skin incision was made. Utilizing concurrent real-time ultraso und guidance, a 19 gauge Matchfundeh needle with a 5 Eritrean sheath was advanced into the abdomen. After the return of fluid, the sheath was advanced, and the needle was removed. Approximately 7300 mL of clou dy, yellow colored fluid was aspirated. The small caliber catheter was removed, and hemostasis was a chieved with direct pressure. A dry, sterile dressing was placed. Follow-up ultrasound examination demonstrates a small amount of residual intraperitoneal free fluid. The patient tolerated the procedure well and without immediate complications. The patient was transp orted to the radiology nurses' holding area for further monitoring prior to discharge. IMPRESSION: Technically successful ultrasound-guided paracentesis. POS: [facility]
[2018-03-01 16:44] VITALS: BP 96/56; TEMP 98.6
== END 2018-03-01 11:15 | disposition home or self-care (01) ==
LOC: ULT 09:31
PROVIDERS: ATTEND Internal Medicine Gastroenterology
PROC: 0W9G3ZZ Drainage of Peritoneal Cavity, Percutaneous Approach (ICD-10-PCS; principal; 2018-03-01)
DX: R18.8 Other ascites (principal); K74.60 Unspecified cirrhosis of liver; D64.9 Anemia, unspecified; J44.9 Chronic obstructive pulmonary disease, unspecified; I10 Essential (primary) hypertension; F41.9 Anxiety disorder, unspecified; F32.9 Major depressive disorder, single episode, unspecified; F17.200 Nicotine dependence, unspecified, uncomplicated; K44.9 Diaphragmatic hernia without obstruction or gangrene; G89.29 Other chronic pain; M54.9 Dorsalgia, unspecified; Z88.5 Allergy status to narcotic agent; Z88.0 Allergy status to penicillin
CPT/HCPCS: 49083; J2001; P9047

== ENCOUNTER 2018-03-09 08:01 | Day surgery (SDC) | payer OTHER ==
[2018-03-08 10:21] VITALS: BMI 27.3
[2018-03-09] MEDS ORDERED: Lidocaine 1% PF 5 ML VIAL ONE (09:29)
[2018-03-09] MEDS ORDERED: Albumin 25% 200 ML ONE (09:30)
[2018-03-09 11:57] VITALS: BP 105/69; TEMP 97.5
--- NOTE | 2018-03-09 12:28 | ULT ---
ULTRASOUND GUIDED PARACENTESIS: HISTORY: Ascites. A 52-year-old female. TECHNIQUE: Informed consent was obtained from the patient. The right lower quadrant was visualized using ultras ound guidance. The overlying skin was prepped and draped in the usual sterile manner. A 1% Lidocain e solution was used to anesthetize the overlying soft tissues. A small dermatotomy was made. Using ultrasound guidance, The right peritoneal fluid was accessed using a 5 Upper Sorbian Yueh needle. A total of 8 L of peritoneal fluid was removed without difficulty. IMPRESSION: Successful ultrasound guided paracentesis. POS: [facility]
== END 2018-03-09 10:35 | disposition home or self-care (01) ==
LOC: ULT 08:01
PROVIDERS: ATTEND Internal Medicine Gastroenterology
PROC: 0W9G3ZZ Drainage of Peritoneal Cavity, Percutaneous Approach (ICD-10-PCS; principal; 2018-03-09)
DX: R18.8 Other ascites (principal); K74.60 Unspecified cirrhosis of liver; J44.9 Chronic obstructive pulmonary disease, unspecified; E11.9 Type 2 diabetes mellitus without complications; I10 Essential (primary) hypertension; G89.29 Other chronic pain; M54.9 Dorsalgia, unspecified; F17.200 Nicotine dependence, unspecified, uncomplicated; K21.9 Gastro-esophageal reflux disease without esophagitis; M19.90 Unspecified osteoarthritis, unspecified site; Z88.1 Allergy status to other antibiotic agents; Z88.0 Allergy status to penicillin; Z88.5 Allergy status to narcotic agent
CPT/HCPCS: 49083; 80053; 80306; 83735; 84630; 85025; 85610; J2001; P9047

== ENCOUNTER → 2018-03-16 | Day surgery (SDC) | payer OTHER ==
[2018-03-15 09:21] VITALS: BMI 29.0
[~2018-03-16] MED LIST changes: +Lidocaine 1% PF 5 ML VIAL ONE; +Prevnar 13-Val Conj/PF 0.5 ML SYRINGE IM ONE
[2018-03-16 10:54] VITALS: TEMP 97.9
--- NOTE | 2018-03-16 11:09 | ULT ---
PROCEDURE NOTE: Date: 03/16/18 PREPROCEDURE DIAGNOSIS: Ascites. POSTPROCEDURE DIAGNOSIS: Ascites. PROCEDURE: Ultrasound guided paracentesis. MAINTENANCE DATA ANALYST: Dr. Martin. ANESTHESIA: 5 mL buffered 1% lidocaine. SPECIMEN: 3550 mL straw-colored fluid. TECHNIQUE: Prior to the procedure, the risks and benefits of an ultrasound guided paracentesis were explained wi th the patient and she consented fully to the procedure. An ultrasound was performed, identifying the largest pocket of fluid in the right lower quadrant of t he abdomen. This area was prepped and draped in the usual sterile fashion. Lidocaine was used to anes thetize the skin and soft tissues down towards the peritoneal cavity. A small skin incision was made, allowing for passage of the Yueh catheter and needle. This Yueh gege ter and needle was placed using ultrasound guidance into the fluid collection in the right lower quad rant of the abdomen. The catheter was left in place and the needle removed. The catheter was connecte d to Vacutainer bottles. A total of 3550 mL of straw-colored fluid was removed. There was a minimal a mount of fluid remaining in the right lower quadrant of the abdomen at the completion of the procedur e. IMPRESSION: Status post successful ultrasound guided paracentesis. POS: [facility]
== END ==
LOC: ULT 08:34
PROVIDERS: ATTEND Internal Medicine Gastroenterology
PROC: 0W9G3ZZ Drainage of Peritoneal Cavity, Percutaneous Approach (ICD-10-PCS; principal; 2018-03-16)
DX: R18.8 Other ascites (principal); K72.90 Hepatic failure, unspecified without coma; K74.60 Unspecified cirrhosis of liver; I85.10 Secondary esophageal varices without bleeding; K76.0 Fatty (change of) liver, not elsewhere classified; K21.9 Gastro-esophageal reflux disease without esophagitis; E11.9 Type 2 diabetes mellitus without complications; K44.9 Diaphragmatic hernia without obstruction or gangrene; I10 Essential (primary) hypertension; M19.90 Unspecified osteoarthritis, unspecified site; F32.9 Major depressive disorder, single episode, unspecified; J44.9 Chronic obstructive pulmonary disease, unspecified; G89.29 Other chronic pain; F41.9 Anxiety disorder, unspecified; Z88.2 Allergy status to sulfonamides; Z88.5 Allergy status to narcotic agent; Z88.0 Allergy status to penicillin; Z87.891 Personal history of nicotine dependence; Z79.52 Long term (current) use of systemic steroids; Z79.899 Other long term (current) drug therapy
CPT/HCPCS: 49083; J2001; P9047

== ENCOUNTER 2018-03-23 08:49 | Day surgery (SDC) | payer OTHER ==
[2018-03-23] MEDS ORDERED: Albumin 25% 200 ML ONE (10:05)
[2018-03-23] MEDS ORDERED: Lidocaine 1% PF 5 ML VIAL ONE (10:05)
[2018-03-23] MEDS ORDERED: Sodium Chloride 0.9% 20 ML ONE (10:05)
--- NOTE | 2018-03-23 11:57 | ULT ---
ULTRASOUND GUIDED PARACENTESIS: Date: 03/23/18 HISTORY: Ascites. COMPARISON: Multiple prior examinations, most recent 03/16/18. FINDINGS: The patient was brought to the ultrasound suite. All questions were answered. The patient's right low er quadrant was prepped and draped in the normal sterile fashion. Adequate superficial and deep anest hesia was administered. Small dermatotomy was made. Using a 5 Polish Yueh needle, the peritoneal spac e was accessed. 9 liters of straw-colored fluid were removed. IMPRESSION: Technically successful ultrasound guided paracentesis with removal of 9 liters of fluid. POS: [facility]
[2018-03-23 13:30] VITALS: BP 97/68; TEMP 98.6
== END 2018-03-23 12:10 | disposition home or self-care (01) ==
LOC: ULT 08:49
PROVIDERS: ATTEND Internal Medicine Gastroenterology
PROC: 0W9G3ZZ Drainage of Peritoneal Cavity, Percutaneous Approach (ICD-10-PCS; principal; 2018-03-23)
DX: R18.8 Other ascites (principal); K74.60 Unspecified cirrhosis of liver; J44.9 Chronic obstructive pulmonary disease, unspecified; F41.9 Anxiety disorder, unspecified; F32.9 Major depressive disorder, single episode, unspecified; M19.90 Unspecified osteoarthritis, unspecified site; K21.9 Gastro-esophageal reflux disease without esophagitis; E11.9 Type 2 diabetes mellitus without complications; D64.9 Anemia, unspecified; G89.29 Other chronic pain; M54.9 Dorsalgia, unspecified; F17.200 Nicotine dependence, unspecified, uncomplicated; K44.9 Diaphragmatic hernia without obstruction or gangrene; Z88.5 Allergy status to narcotic agent; Z88.0 Allergy status to penicillin
CPT/HCPCS: 49083; 80053; 80306; 83735; 84630; 85025; 85610; 85730; A4216; J2001; P9047

== ENCOUNTER 2018-03-30 09:05 | Day surgery (SDC) | payer OTHER ==
[~2018-03-30 09:05] MED LIST changes: -Prevnar 13-Val Conj/PF 0.5 ML SYRINGE IM ONE; +Sodium Bicarbonate 2.5 MEQ/5 ML VIAL ONE; +Sodium Chloride 0.9% 10 ML ONE
--- NOTE | 2018-03-30 10:57 | ULT ---
ULTRASOUND GUIDED PARACENTESIS: Date: 03/30/18 HISTORY: Ascites. COMPARISON: Prior CT dated 03/23/18. FINDINGS: Patient was brought to the ultrasound suite and all questions were answered. The patient's right lower quadrant was prepped and draped in the normal sterile fashion. 4 mL of lido janae was instilled into the superficial and deep soft tissues. Small dermatotomy was made. Using a 5 Costa Rican Yueh needle, the peritoneal space was accessed. 7,100 mL of straw-colored fluid was removed. The patient tolerated the procedure well and without complication. IMPRESSION: Technically successful ultrasound guided paracentesis. POS: [facility]
[2018-03-30 11:02] VITALS: TEMP 98.2
[2018-03-30 11:04] VITALS: BMI 27.3
[2018-03-30 11:05] VITALS: BP 91/60
== END 2018-03-30 10:30 | disposition home or self-care (01) ==
LOC: ULT 09:05
PROVIDERS: ATTEND Internal Medicine Gastroenterology
PROC: 0W9G3ZZ Drainage of Peritoneal Cavity, Percutaneous Approach (ICD-10-PCS; principal; 2018-03-30)
DX: R18.8 Other ascites (principal); K74.60 Unspecified cirrhosis of liver; E11.9 Type 2 diabetes mellitus without complications; F41.9 Anxiety disorder, unspecified; F32.9 Major depressive disorder, single episode, unspecified; J44.9 Chronic obstructive pulmonary disease, unspecified; D64.9 Anemia, unspecified; M19.90 Unspecified osteoarthritis, unspecified site; K44.9 Diaphragmatic hernia without obstruction or gangrene; Z88.5 Allergy status to narcotic agent; Z88.0 Allergy status to penicillin
CPT/HCPCS: 49083; A4216; J2001; P9047

== ENCOUNTER → 2018-04-06 | Day surgery (SDC) | payer OTHER ==
[2018-04-05 09:04] VITALS: BMI 29.0
[~2018-04-06] MED LIST changes: -Lidocaine 1% PF 5 ML VIAL ONE; +Prevnar 13-Val Conj/PF 0.5 ML SYRINGE IM ONE; -Sodium Bicarbonate 2.5 MEQ/5 ML VIAL ONE; -Sodium Chloride 0.9% 10 ML ONE
[2018-04-06 10:35] VITALS: TEMP 97.1
--- NOTE | 2018-04-06 11:33 | ULT ---
SONOGRAPHIC GUIDED PARACENTESIS: HISTORY: Liver disease. Recurrent ascites. FINDINGS: After explaining the procedure and answering all questions, sonographic survey shows a large amount o f free fluid throughout the abdomen. Sterile technique, buffered local anesthesia, sonographic sagar nce, and a right lateral approach were used to carefully advance a 19 gauge Yueh needle and catheter into the free fluid. The catheter was left to drain a total volume of 8 L of cloudy, mcgill liquid. Mi nimal fluid remained. The catheter was removed. The patient tolerated the procedure well and was di smissed in good condition. IMPRESSION: Technically successful sonographic guided paracentesis. POS: [facility]
== END ==
LOC: ULT 08:27
PROVIDERS: ATTEND Internal Medicine Gastroenterology
PROC: 0W9G3ZZ Drainage of Peritoneal Cavity, Percutaneous Approach (ICD-10-PCS; principal; 2018-04-06)
DX: R18.8 Other ascites (principal); K74.60 Unspecified cirrhosis of liver; E11.9 Type 2 diabetes mellitus without complications; F41.9 Anxiety disorder, unspecified; F32.9 Major depressive disorder, single episode, unspecified; J44.9 Chronic obstructive pulmonary disease, unspecified; D64.9 Anemia, unspecified; M19.90 Unspecified osteoarthritis, unspecified site; K44.9 Diaphragmatic hernia without obstruction or gangrene; G89.29 Other chronic pain; F17.200 Nicotine dependence, unspecified, uncomplicated; Z88.5 Allergy status to narcotic agent; Z88.0 Allergy status to penicillin
CPT/HCPCS: 36415; 49083; 80053; 80306; 83735; 84630; 85025; 85610; P9047

== ENCOUNTER → 2018-04-13 | Day surgery (SDC) | payer OTHER ==
[2018-04-12 07:57] VITALS: BMI 29.0
[~2018-04-13] MED LIST changes: +Albumin 25% 100 ML ONE; -Albumin 25% 200 ML ONE; -Prevnar 13-Val Conj/PF 0.5 ML SYRINGE IM ONE
--- NOTE | 2018-04-13 11:08 | ULT ---
ULTRASOUND GUIDED PARACENTESIS THERAPEUTIC: 04/13/2018 HISTORY: A 52-year-old female with cirrhosis, who presents with symptomatic ascites, with abdominal distention . TECHNIQUE: Signed informed consent obtained. Four quadrant survey of the abdominal cavity with ultrasound. Lef t lower quadrant selected. Overlying skin prepped and draped in the usual sterile fashion. A 25 gau ge needle used to apply buffered Lidocaine superficially and deeply. A 5 Uzbek Yueh catheter with s tylet advanced in tandem with the 25 gauge needle. The stylet and the 25 gauge needle were removed. The Yueh catheter was connected to a series of evacuated bottles via plastic tubing. Ascites fluid was drained. The Yueh catheter was removed. The patient tolerated the procedure well. No complicat ions. FINDINGS: Images prior to the procedure demonstrate a large volume of free intraperitoneal fluid. A total of 8 650 mL of nonhemorrhagic ascites fluid was drained. Post procedure image of the left lower quadrant demonstrated little or no residual fluid. IMPRESSION: Successful therapeutic paracentesis, with drainage of 8.65 L of ascites fluid. POS: [facility]
== END ==
LOC: ULT 08:38
PROVIDERS: ATTEND Radiology Neuroradiology
PROC: 0W9G3ZZ Drainage of Peritoneal Cavity, Percutaneous Approach (ICD-10-PCS; principal; 2018-04-13)
DX: R18.8 Other ascites (principal); K74.60 Unspecified cirrhosis of liver; Z88.5 Allergy status to narcotic agent; Z88.0 Allergy status to penicillin
CPT/HCPCS: 49083; P9047

== ENCOUNTER 2018-04-20 08:35 | Day surgery (SDC) | payer OTHER ==
[2018-04-20] MEDS ORDERED: Albumin 25% 200 ML ONE (08:43)
[2018-04-20] MEDS ORDERED: Lidocaine 1% PF 5 ML VIAL ONE (08:43)
[2018-04-20 10:38] VITALS: BP 104/63; TEMP 98.6
--- NOTE | 2018-04-20 11:20 | ULT ---
ULTRASOUND GUIDED PARACENTESIS: Date: 04-20-18 History: Cirrhosis and recurrent ascites. Technique: After informed consent was obtained, the patient was placed on the sonography table in supine positio n. Limited sonographic evaluation of the abdomen was performed. An area in the mid axillary line righ t upper quadrant was marked and then meticulously prepped and draped in the usual sterile fashion. Skin and subcutaneous tissues were infiltrated with buffered 1% Lidocaine for local anesthesia. Small skin incision was made. Utilizing concurrent real-time ultrasound guidance, a 19 gauge Xamarin needle w ith 5 Nauruan sheath was advanced into the abdomen. After the return of fluid, the catheter was advanc ed and needle was removed. Approximately 7 L of cloudy straw colored fluid was aspirated. 50 grams of Albumin was administered intravenously during the procedure. The catheter was removed and hemostatis was achieved with direct pressure. Dry sterile dressing was p laced. Post procedure ultrasound images demonstrate persistent small to moderate amount of intraperit azevedo free fluid. IMPRESSION: Technically successful ultrasound guided paracentesis. POS: [facility]
== END 2018-04-20 10:05 | disposition home or self-care (01) ==
LOC: ULT 08:35
PROVIDERS: ATTEND Internal Medicine Gastroenterology
PROC: 0W9G3ZZ Drainage of Peritoneal Cavity, Percutaneous Approach (ICD-10-PCS; principal; 2018-04-20)
DX: R18.8 Other ascites (principal); K74.60 Unspecified cirrhosis of liver; I10 Essential (primary) hypertension; J45.909 Unspecified asthma, uncomplicated; E11.9 Type 2 diabetes mellitus without complications; K72.90 Hepatic failure, unspecified without coma; Z88.0 Allergy status to penicillin; Z88.2 Allergy status to sulfonamides; Z88.1 Allergy status to other antibiotic agents; Z79.899 Other long term (current) drug therapy
CPT/HCPCS: 49083; 80053; 80306; 83735; 84630; 85025; 85610; J2001; P9047

== ENCOUNTER 2018-04-27 08:29 | Day surgery (SDC) | payer OTHER ==
[2018-04-27] MEDS ORDERED: Lidocaine 1% PF 5 ML VIAL ONE (08:39)
[2018-04-27] MEDS ORDERED: Albumin 25% 200 ML ONE (08:39)
[2018-04-27 10:44] VITALS: BP 101/69; TEMP 98.6
--- NOTE | 2018-04-27 12:00 | ULT ---
ULTRASOUND GUIDED PARACENTESIS: HISTORY: Recurrent ascites. FINDINGS: The patient requested drainage from the left lower quadrant and there is a good fluid collection in t his area. After informed consent was obtained, the patient was prepped and draped in the normal sterile fashion . Local anesthesia was obtained with 1% Xylocaine mixed with sodium bicarb. A small skin incision w as made with a #11 scalpel blade. A 6 Korean Yueh catheter was introduced under ultrasound guidance without difficulty. Approximately 7 liters of typical straw-colored ascites was obtained. The patie nt tolerated the procedure well. There are no immediate complications. IMPRESSION: Ultrasound-guided paracentesis to 7 liters of fluid. POS: [facility]
== END 2018-04-27 10:45 | disposition home or self-care (01) ==
LOC: ULT 08:29
PROVIDERS: ATTEND Internal Medicine Gastroenterology
PROC: 0W9G3ZZ Drainage of Peritoneal Cavity, Percutaneous Approach (ICD-10-PCS; principal; 2018-04-27)
DX: R18.8 Other ascites (principal); K74.60 Unspecified cirrhosis of liver
CPT/HCPCS: 49083; J2001; P9047

== ENCOUNTER 2018-05-02 18:09 | Emergency (ER) | payer OTHER ==
--- NOTE | 2018-05-02 18:58 | RAD ---
RADIOGRAPH CHEST 1 VIEW: Date: 05/02/2018 Time: 6:35 p.m. HISTORY: A 52-year-old female with dyspnea. COMPARISON: No recent chest radiographs are available. FINDINGS: There is an ill defined, moderate sized, patchy opacity at the right lower lung zone. There is a pro bable right pleural effusion. The left lateral costophrenic angle is sharp. The rest of the visuali zed lung stokes are clear. No pneumoperitoneum or pneumothorax. The cardiomediastinal silhouette is normal. IMPRESSION: 1. Right pleural effusion. 2. Nonspecific mild infiltrate-like density in the right lower lung zone. JN [] POS: [facility]
[2018-05-02 19:12] LABS: Hemoglobin 10.6 g/dL (12.0-16.0); Mean Corpuscular HGB CONC 34.3 g/dL (32.0-36.0); Mean Corpuscular Hemoglobin 30.1 pg (27.0-31.0); Mean Corpuscular Volume 87.7 fL (78.0-98.0); Mean Platelet Volume 7.9 fL (7.4-10.4); Platelet Count 88 thou/uL (130-400); RBC Distribution Width 12.8 % (11.5-14.5); Red Blood Cell (RBC) Count 3.51 mill/uL (4.20-5.40); White Blood Cell (WBC) Count 2.9 thou/uL (4.8-10.8)
[2018-05-02 19:17] LABS: INR-International Normal Ratio 1.2; Prothrombin Time 15.2 SEC (12.0-14.7)
[2018-05-02 19:32] LABS: ALT (SGPT) 14 U/L (8-55); AST (SGOT) 26 U/L (5-34); Albumin 3.7 g/dL (3.5-5.0); Alkaline Phosphatase 139 U/L (40-150); Anion Gap 14 mmol/L (10-20); BUN (Urea Nitrogen) 21 mg/dL (7.0-18.7); Bilirubin, Total 0.7 mg/dL (0.2-1.2); Calc. Creatinine Clearance 0 mL/min (70-130); Calcium 8.9 mg/dL (7.8-10.44); Carbon Dioxide 21 mmol/L (22-29); Chloride 101 mmol/L (98-107); Estimated GFR-MDRD 37; Glucose 181 mg/dL (70-105); Lipase 32 U/L (8-78); Potassium 4.7 mmol/L (3.5-5.1); Protein, Total 6.7 g/dL (6.0-8.3); Sodium 131 mmol/L (136-145)
[2018-05-02 19:35] LABS: CKMB 0.6 ng/mL (0-6.6); Troponin I Less than 0.010 ng/mL (< 0.028)
[2018-05-02 19:45] LABS: Band 2 % (5-11); Eosinophils 1 % (0-10); Lymphocytes 6 % (21-51); MDiff Complete? YES; Monocytes 9 % (0-10); Neutrophil 82 % (42-75); PLT Morphology Comment Appears Decreased
[2018-05-02 19:53] LABS: Bilirubin Negative (Negative); Blood, Urine Negative (Negative); Clarity CLOUDY (Clear); Glucose, Urine (Dipstick) Negative (Negative); Leukocyte Moderate (Negative); Nitrite Negative (Negative); Protein, Urine (Dipstick) Negative (Neg-Trace); Specific Gravity, Urine 1.011 (1.002-1.036); Urobilinogen 0.2 mg/dL (0.2-1.0); pH, Urine 5.5 (5.0-9.0)
[2018-05-02 19:55] LABS: Bacteria/HPF 4+ HPF (None Seen); Hyaline Casts/LPF 0-3 HYALINE CAST LPF (0-3 Hyaline); Pathc Cast-AUWi Flag 0.14 (0-2.49); RBC/HPF 0-3 HPF (0-3); Squamous Epithelial 0-3 HPF (0-3)
[2018-05-02] MEDS ORDERED: Ketorolac Tromethamine 60 MG/2 ML VIAL ONE (20:36)
[2018-05-02] MEDS ORDERED: traMADol HCl 50 MG TAB ONE (20:36)
== END 2018-05-02 21:02 | disposition home or self-care (01) ==
LOC: ERS 18:09
DX: J18.9 Pneumonia, unspecified organism (principal); K74.60 Unspecified cirrhosis of liver; J90 Pleural effusion, not elsewhere classified; K21.9 Gastro-esophageal reflux disease without esophagitis; J45.909 Unspecified asthma, uncomplicated; F32.9 Major depressive disorder, single episode, unspecified; F17.210 Nicotine dependence, cigarettes, uncomplicated; Z79.899 Other long term (current) drug therapy
CPT/HCPCS: 71045; 80053; 81003; 81015; 82553; 83690; 84484; 85025; 85610; 87077; 87086; 87186; 93005; J1885

== ENCOUNTER 2018-05-04 09:12 | Day surgery (SDC) | payer OTHER ==
[~2018-05-04 09:12] MED LIST changes: -Albumin 25% 100 ML ONE; +Albumin 25% 200 ML ONE; +Lidocaine 1% PF 5 ML VIAL ONE; +Sodium Bicarbonate 2.5 MEQ/5 ML VIAL ONE
--- NOTE | 2018-05-04 11:52 | ULT ---
ULTRASOUND GUIDED PARACENTESIS: PRE-PROCEDURE DIAGNOSIS: Ascites. POST-PROCEDURE DIAGNOSIS: Ascites. SURGEON: Charan Martin M.D. COMPLICATIONS: None. SPECIMENS: Straw-colored fluid 7 L. ANESTHESIA: Buffered 1% Lidocaine 6 mL. TECHNIQUE: Prior to the procedure, the risks and benefits of an ultrasound guided paracentesis were explained to the patient, and she consented fully to the procedure. An ultrasound was used to evaluate the abdomen. The largest fluid collection was seen in the right l ower quadrant of the abdomen. The right lower quadrant of the abdomen was prepped and draped in the usual sterile fashion. Lidocai ne was used to anesthetize the skin and soft tissues, down toward the peritoneal cavity. A small ski n incision was made, allowing for passage of a Lacombe needle and catheter. The Lacombe needle and catheter were placed using ultrasound guidance, into the fluid, in the right lowe r quadrant of the abdomen. The needle was removed, and the catheter was left in place. This cathete r was connected to multiple Vacutainer bottles, and 7 L of fluid was removed, per the requesting phys ician. A small amount of residual fluid was seen at the completion of the procedure. The catheter w as removed. The patient tolerated the procedure well without immediate post procedure complications. IMPRESSION: Status post successful ultrasound guided paracentesis. POS: [facility]
[2018-05-04 11:56] VITALS: BP 98/65; TEMP 98.1
== END 2018-05-04 10:50 | disposition home or self-care (01) ==
LOC: ULT 09:12
PROVIDERS: ATTEND Internal Medicine Gastroenterology
PROC: 0W9G3ZZ Drainage of Peritoneal Cavity, Percutaneous Approach (ICD-10-PCS; principal; 2018-05-04)
DX: R18.8 Other ascites (principal); K74.60 Unspecified cirrhosis of liver; Z88.0 Allergy status to penicillin; Z88.5 Allergy status to narcotic agent
CPT/HCPCS: 49083; 80053; 80306; 83735; 84630; 85025; 85610; J2001; P9047

== ENCOUNTER 2018-05-11 08:40 | Day surgery (SDC) | payer OTHER ==
[~2018-05-11 08:40] MED LIST changes: -Albumin 25% 200 ML ONE; -Lidocaine 1% PF 5 ML VIAL ONE; +Prevnar 13-Val Conj/PF 0.5 ML SYRINGE IM ONE; -Sodium Bicarbonate 2.5 MEQ/5 ML VIAL ONE
[2018-05-11] MEDS ORDERED: Albumin 25% 200 ML ONE (09:13)
[2018-05-11] MEDS ORDERED: Lidocaine 1% MPF 2 ML VIAL ONE (09:13)
[2018-05-11 10:24] VITALS: BP 102/65; TEMP 98
--- NOTE | 2018-05-11 12:00 | ULT ---
ULTRASOUND GUIDED PARACENTESIS: Date: 05-11-18 History: Cirrhosis and ascites. Technique: After informed consent was obtained, the patient was placed on the angiography table in pratt pine position. An appropriate access site was determined with ultrasound guidance. Approximately 50 g of Albumin was administered intravenously as requested, during the procedure. Skin and subcutaneous tissues were infiltrated with buffered 1% Lidocaine for local anesthesia in the midaxillary line righ t upper quadrant. Small skin incision was made. Utilizing concurrent real-time ultrasound guidance, a 19 gauge UTStarcomeh needle with 5 Equatorial Guinean sheath was a dvanced into the abdomen. After return of fluid, the sheath was advanced and the needle was removed. Approximately 7 L of cloudy yellow fluid was aspirated. The catheter was removed and hemostatis was a chieved with direct pressure. Ultrasound examination post paracentesis does demonstrate residual intr aperitoneal free fluid. The patient tolerated the procedure well and without immediate complication. The patient was discharg ed to radiology nurses holding prior to discharged. IMPRESSION: Technically successful ultrasound guided paracentesis. POS: [facility]
== END 2018-05-11 11:25 | disposition home or self-care (01) ==
LOC: ULT 08:40
PROVIDERS: ATTEND Internal Medicine Gastroenterology
PROC: 0W9G3ZZ Drainage of Peritoneal Cavity, Percutaneous Approach (ICD-10-PCS; principal; 2018-05-11)
DX: R18.8 Other ascites (principal); K74.60 Unspecified cirrhosis of liver; Z88.0 Allergy status to penicillin; Z88.2 Allergy status to sulfonamides; Z88.5 Allergy status to narcotic agent; Z79.899 Other long term (current) drug therapy
CPT/HCPCS: 49083; P9047

== ENCOUNTER 2018-05-18 08:35 | Day surgery (SDC) | payer OTHER ==
[~2018-05-18 08:35] MED LIST changes: +Albumin 25% 200 ML ONE; +Lidocaine 1% PF 5 ML VIAL ONE; -Prevnar 13-Val Conj/PF 0.5 ML SYRINGE IM ONE; +Sodium Bicarbonate 2.5 MEQ/5 ML VIAL ONE; +Sodium Chloride 0.9% 10 ML ONE
[2018-05-18 10:22] LABS: #Eosinphils 0.2 thou/uL (0.0-0.7); #Lymphocytes 0.4 thou/uL (1.20-3.40); #Monocytes 0.3 thou/uL (0.11-0.59); #Neutrophils 1.8 thou/uL (1.40-6.50); %Basophils 0.4 % (0.0-1.0); %Eosinophils 5.8 % (0.0-10.0); %Lymphocytes 14.1 % (21.0-51.0); %Monocytes 12.9 % (0.0-10.0); %Neutrophils 66.8 % (42.0-75.0); Hemoglobin 9.7 g/dL (12.0-16.0); Mean Corpuscular Hemoglobin 29.3 pg (27.0-31.0); Mean Corpuscular Volume 88.9 fL (78.0-98.0); Platelet Count 95 thou/uL (130-400); RBC Distribution Width 12.5 % (11.5-14.5); White Blood Cell (WBC) Count 2.6 thou/uL (4.8-10.8)
[2018-05-18 10:26] LABS: INR-International Normal Ratio 1.2; Prothrombin Time 15.2 SEC (12.0-14.7)
[2018-05-18 10:54] LABS: ALT (SGPT) 9 U/L (8-55); AST (SGOT) 32 U/L (5-34); Albumin 3.4 g/dL (3.5-5.0); Alkaline Phosphatase 122 U/L (40-150); Anion Gap 15 mmol/L (10-20); BUN (Urea Nitrogen) 28 mg/dL (7.0-18.7); Bilirubin, Total 0.7 mg/dL (0.2-1.2); Calc. Creatinine Clearance 0 mL/min (70-130); Calcium 8.1 mg/dL (7.8-10.44); Carbon Dioxide 18 mmol/L (22-29); Chloride 100 mmol/L (98-107); Estimated GFR-MDRD 32; Globulin 2.9 g/dL (2.4-3.5); Glucose 260 mg/dL (70-105); Magnesium 2.4 mg/dL (1.6-2.6); Potassium 4.9 mmol/L (3.5-5.1); Protein, Total 6.3 g/dL (6.0-8.3); Sodium 128 mmol/L (136-145)
[2018-05-18 11:45] LABS: Ref Lab Test Ordered PETH; Reference Lab Name LABCORP
[2018-05-18 12:03] LABS: Amphetamine Not Detected (NotDetected); Barbiturates Screen Not Detected (NotDetected); Benzodiazepine Screen Not Detected (NotDetected); Cocaine Metabolite Screen Not Detected (NotDetected); Medtox Control Line Valid? VALID (VALID); Medtox Reader # READER 4; Methadone Not Detected (NotDetected); Methamphetamine Not Detected (NotDetected); Opiate Screen Not Detected (NotDetected); Oxycodone Screen Not Detected (NotDetected); Phencyclidine (PCP) Not Detected (NotDetected); THC/Cannabinoid Screen Not Detected (NotDetected); Tricyclic Screen Not Detected (NotDetected)
[2018-05-18 12:24] LABS: Ref Lab Test Ordered NICOTINE W METABOLIT; Reference Lab Name LABCORP
[2018-05-18 12:46] VITALS: BMI 28.8
--- NOTE | 2018-05-18 13:00 | ULT ---
ULTRASOUND-GUIDED PARACENTESIS: HISTORY: Recurrent ascites. FINDINGS: After informed consent was obtained, the patient was prepped and draped in the normal sterile fashion . She requested paracentesis be performed for the fluid in the left lower quadrant. The area was an esthetized with 1% Xylocaine mixed with sodium bicarbonate. A small skin incision was made with a #1 1 scalpel blade. A 6 Vietnamese Yueh catheter was introduced, and 7 L of typical straw-colored fluid was obtained. The patient tolerated the procedure well. There were no immediate complications. IMPRESSION: Successful ultrasound-guided paracentesis of 7 L of fluid. POS: [facility]
[2018-05-18 13:01] VITALS: BP 111/72; TEMP 98.1
== END 2018-05-18 10:55 | disposition home or self-care (01) ==
LOC: ULT 08:35
PROVIDERS: ATTEND Internal Medicine Gastroenterology
PROC: 0W9G3ZZ Drainage of Peritoneal Cavity, Percutaneous Approach (ICD-10-PCS; principal; 2018-05-18)
DX: R18.8 Other ascites (principal); K74.60 Unspecified cirrhosis of liver; Z88.0 Allergy status to penicillin; Z88.5 Allergy status to narcotic agent; Z88.8 Allergy status to other drugs, medicaments and biological substances
CPT/HCPCS: 49083; 80053; 80306; 83735; 84630; 85025; 85610; A4216; J2001; P9047

== ENCOUNTER 2018-05-25 08:53 | Day surgery (SDC) | payer OTHER ==
[2018-05-25] MEDS ORDERED: Lidocaine 1% PF 5 ML VIAL ONE (09:13)
[2018-05-25] MEDS ORDERED: Albumin 25% 200 ML ONE (09:13)
[2018-05-25] MEDS ORDERED: Sodium Chloride 0.9% 10 ML ONE (10:46)
[2018-05-25 15:11] VITALS: BP 104/71; TEMP 98.7
--- NOTE | 2018-05-25 16:38 | ULT ---
ULTRASOUND GUIDED PARACENTESIS 05/25/18 HISTORY: Cirrhosis and recurrent ascites. TECHNIQUE: After informed consent was obtained, the patient placed on the sonography table in the supine positi on. Appropriate access site was determined with ultrasound guidance. An area was marked and meticulou sly prepped and draped in the usual sterile fashion. Skin and subcutaneous tissues were infiltrated with buffered 1% lidocaine for local anesthesia. A sma ll skin incision was made. Utilizing concurrent real time ultrasound guidance, a 19 gauge Yueh needle with 5 New Zealander sheath was advanced into the peritoneal space. Excellent return of fluid. The sheath was advanced, and needle was removed. Approximately 7 liters of cloudy straw colored fluid was aspira cassie. Patient was administered albumin during the examination as requested. The introducer sheath was removed, and hemostasis was achieved with direct pressure. Followup imaging demonstrates residual int raperitoneal free fluid. Patient tolerated the procedure well without immediate complication. Dry sterile dressing was placed at site of paracentesis. IMPRESSION: Technically successful ultrasound guided paracentesis. POS: [facility]
== END 2018-05-25 11:30 | disposition home or self-care (01) ==
LOC: ULT 08:53
PROVIDERS: ATTEND Internal Medicine Gastroenterology
PROC: 0W9G3ZZ Drainage of Peritoneal Cavity, Percutaneous Approach (ICD-10-PCS; principal; 2018-05-25)
DX: R18.8 Other ascites (principal); K74.60 Unspecified cirrhosis of liver; Z88.0 Allergy status to penicillin; Z87.891 Personal history of nicotine dependence; Z88.2 Allergy status to sulfonamides; Z88.5 Allergy status to narcotic agent; Z79.899 Other long term (current) drug therapy
CPT/HCPCS: 49083; 80053; 80306; 85025; 85610; A4216; J2001; P9047

== ENCOUNTER 2018-06-01 08:46 | Day surgery (SDC) | payer OTHER ==
[2018-06-01] MEDS ORDERED: Sodium Bicarbonate 2.5 MEQ/5 ML VIAL ONE (08:55)
[2018-06-01] MEDS ORDERED: Lidocaine 1% PF 5 ML VIAL ONE (08:55)
[2018-06-01] MEDS ORDERED: Albumin 25% 200 ML ONE (08:55)
[2018-06-01 10:50] VITALS: BP 95/63; TEMP 97.7
--- NOTE | 2018-06-01 11:51 | ULT ---
ULTRASOUND GUIDED PARACENTESIS: Date: 06-01-18 History: Ascites. Comparison: 05-25-18 FINDINGS: Informed consent was obtained. A large amount of intraperitoneal fluid was located using ultrasound g uidance. The overlying skin was prepped and draped in the usual sterile manner. A 1% Lidocaine soluti on was used to anesthetize the overlying soft tissues. A small dermatotomy was made. A 5 Cuban Yueh needle was placed into the peritoneal collection. A total of 7 L of peritoneal fluid was removed with out difficulty. IMPRESSION: Successful ultrasound guided paracentesis. POS: [facility]
== END 2018-06-01 10:15 | disposition home or self-care (01) ==
LOC: ULT 08:46
PROVIDERS: ATTEND Internal Medicine Gastroenterology
PROC: 0W9G3ZZ Drainage of Peritoneal Cavity, Percutaneous Approach (ICD-10-PCS; principal; 2018-06-01)
DX: R18.8 Other ascites (principal); K74.60 Unspecified cirrhosis of liver; Z88.0 Allergy status to penicillin; Z88.5 Allergy status to narcotic agent
CPT/HCPCS: 49083; J2001; P9047

== ENCOUNTER 2018-06-08 08:16 | Day surgery (SDC) | payer OTHER ==
[2018-06-08 10:53] VITALS: BMI 25.3
[2018-06-08 10:55] VITALS: BP 101/63; TEMP 97.7
--- NOTE | 2018-06-08 12:09 | ULT ---
ULTRASOUND GUIDED ABDOMINAL PARACENTESIS: Indications: Recurrent ascites. FINDINGS: 7 L of yellowish clear ascitic fluid removed from the left lower quadrant. Post procedure ultrasound shows mild residual ascites. PROCEDURE NOTE: Four quadrant ultrasound shows large volume ascites in all quadrants. The left lower quadrant was cho sen for puncture. Overlying skin was prepped and draped in a sterile manner. Local anesthesia was adm inistered with Lidocaine and bicarb. Tiny skin incision was made with scalpel. A 5 Gibraltarian Yueh needle and catheter were introduced into the ascitic fluid in the left lower quadrant under ultrasound guid ance. Needle was removed and the catheter was advanced. The catheter was then attached to suction shruthi inage. 7 L of ascitic fluid removed. There were no problems or complications. POS: [facility]
== END 2018-06-08 10:37 | disposition home or self-care (01) ==
LOC: ULT 08:16
PROVIDERS: ATTEND Internal Medicine Gastroenterology
PROC: 0W9G3ZZ Drainage of Peritoneal Cavity, Percutaneous Approach (ICD-10-PCS; principal; 2018-06-08)
DX: R18.8 Other ascites (principal); K74.60 Unspecified cirrhosis of liver; Z88.0 Allergy status to penicillin; Z88.8 Allergy status to other drugs, medicaments and biological substances; Z88.5 Allergy status to narcotic agent
CPT/HCPCS: 49083

== ENCOUNTER 2018-06-22 08:39 | Day surgery (SDC) | payer OTHER ==
[2018-06-22] MEDS ORDERED: Sodium Bicarbonate 2.5 MEQ/5 ML VIAL ONE (11:02)
[2018-06-22] MEDS ORDERED: Albumin 25% 200 ML ONE (11:02)
[2018-06-22] MEDS ORDERED: Lidocaine 1% PF 5 ML VIAL ONE (11:02)
[2018-06-22 13:44] VITALS: BP 105/57; TEMP 98.1
--- NOTE | 2018-06-22 14:19 | ULT ---
ULTRASOUND GUIDED PARACENTESIS: Indication: Ascites. Technique: Informed consent was obtained. Pre procedure ultrasound was performed. Site overlying the right lower quadrant was prepped and draped in usual sterile fashion. Buffered 1% Lidocaine was administered to overlying subcutaneous tissues. Under ultrasound guidance, 5 Mohawk Yueh catheter was guided into the collection in the right lower quadrant. 5500 cc of fluid was removed from the abdominal cavity. Catherine ent tolerated the procedure without difficulty. IMPRESSION: Successful ultrasounded paracentesis with removal of 5500 cc of normal appearing fluid. POS: [facility]
== END 2018-06-22 12:20 | disposition home or self-care (01) ==
LOC: ULT 08:39
PROVIDERS: ATTEND Internal Medicine Gastroenterology
PROC: 0W9G3ZZ Drainage of Peritoneal Cavity, Percutaneous Approach (ICD-10-PCS; principal; 2018-06-22)
DX: R18.8 Other ascites (principal); K74.60 Unspecified cirrhosis of liver
CPT/HCPCS: 49083; 80053; 80306; 85025; 85610; J2001; P9047

== ENCOUNTER 2018-07-13 08:25 | Day surgery (SDC) | payer OTHER ==
[2018-07-13 10:12] LABS: Anion Gap 8 mmol/L (10-20); BUN (Urea Nitrogen) 15 mg/dL (7.0-18.7); Calc. Creatinine Clearance 0 mL/min (70-130); Calcium 8.4 mg/dL (7.8-10.44); Carbon Dioxide 25 mmol/L (22-29); Chloride 108 mmol/L (98-107); Estimated GFR-MDRD 47; Glucose 177 mg/dL (70-105); Potassium 3.6 mmol/L (3.5-5.1); Sodium 137 mmol/L (136-145)
--- NOTE | 2018-07-13 12:14 | ULT ---
ULTRASOUND GUIDED PARACENTESIS: INDICATION: Ascites. TECHNIQUE: Informed consent was obtained. Preprocedure ultrasound demonstrated a large collection in the right lower quadrant of the abdomen. A site overlying the right lower quadrant was prepped and draped in t he usual sterile fashion. Buffered 1% Lidocaine was administered into the overlying subcutaneous tis sues. Under ultrasound guidance, a 5 St [place] Yueh catheter was guided down into the collection of the right lower quadrant. A total of 5300 cc of fluid was removed. The patient tolerated the procedure without difficulty. IMPRESSION: Successful ultrasound-guided paracentesis with removal of 5300 cc of normal-appearing peritoneal flui d. POS: [facility]
== END 2018-07-13 10:35 | disposition home or self-care (01) ==
LOC: ULT 08:25
PROVIDERS: ATTEND Internal Medicine Gastroenterology
PROC: 0W9G3ZZ Drainage of Peritoneal Cavity, Percutaneous Approach (ICD-10-PCS; principal; 2018-07-13)
DX: R18.8 Other ascites (principal); K74.60 Unspecified cirrhosis of liver
CPT/HCPCS: 49083; 80048

== ENCOUNTER 2018-07-21 13:42 | Emergency (ER) | payer OTHER ==
--- NOTE | 2018-07-21 16:30 | ULT ---
LEFT LOWER EXTREMITY VENOUS ULTRASOUND WITH DOPPLER: 07/21/18 HISTORY: Left lower extremity pain and swelling x1 month. COMPARISON: None. TECHNIQUE: Hwang scale, color flow, doppler imaging with spectral waveform analysis performed of the left lower e xtremity venous system. FINDINGS: There is compressibility, presence of flow and augmentation in the common femoral vein, femoral vein and popliteal vein. There is slow in the greater saphenous vein, profunda vein, and posterior tibial vein. IMPRESSION: No evidence of thrombus in the left lower extremity deep venous system. POS: [facility]
== END 2018-07-21 17:00 | disposition home or self-care (01) ==
LOC: ERS 13:42
DX: I89.0 Lymphedema, not elsewhere classified (principal); K21.9 Gastro-esophageal reflux disease without esophagitis; J45.909 Unspecified asthma, uncomplicated; E11.9 Type 2 diabetes mellitus without complications; F32.9 Major depressive disorder, single episode, unspecified; F17.210 Nicotine dependence, cigarettes, uncomplicated; Z79.899 Other long term (current) drug therapy

== ENCOUNTER 2018-07-27 08:26 | Day surgery (SDC) | payer OTHER ==
[~2018-07-27 08:26] MED LIST changes: -Albumin 25% 200 ML ONE; -Lidocaine 1% PF 5 ML VIAL ONE; +Prevnar 13-Val Conj/PF 0.5 ML SYRINGE IM ONE; -Sodium Bicarbonate 2.5 MEQ/5 ML VIAL ONE; -Sodium Chloride 0.9% 10 ML ONE
[2018-07-27 09:07] LABS: INR-International Normal Ratio 1.3; Prothrombin Time 16.6 SEC (12.0-14.7)
[2018-07-27 09:08] LABS: PTT 44.7 SEC (22.9-36.1)
[2018-07-27] MEDS ORDERED: Lidocaine 1% PF 5 ML VIAL ONE (09:14)
[2018-07-27] MEDS ORDERED: Sodium Bicarbonate 2.5 MEQ/5 ML VIAL ONE (09:14)
[2018-07-27] MEDS ORDERED: Albumin 25% 100 ML ONE (09:14)
[2018-07-27 09:51] LABS: Band 6 % (5-11); Eosinophils 8 % (0-10); Hemoglobin 10.4 g/dL (12.0-16.0); Lymphocytes 17 % (21-51); MDiff Complete? YES; Mean Corpuscular HGB CONC 32.9 g/dL (32.0-36.0); Mean Corpuscular Hemoglobin 28.2 pg (27.0-31.0); Mean Corpuscular Volume 85.8 fL (78.0-98.0); Mean Platelet Volume 7.2 fL (7.4-10.4); Monocytes 14 % (0-10); Neutrophil 55 % (42-75); PLT Morphology Comment Appears Decreased; Platelet Count 78 thou/uL (130-400); RBC Distribution Width 13.6 % (11.5-14.5); RBC Morphology Normal; Red Blood Cell (RBC) Count 3.69 mill/uL (4.20-5.40); White Blood Cell (WBC) Count 2.9 thou/uL (4.8-10.8)
[2018-07-27 12:00] VITALS: BP 112/65; TEMP 98
--- NOTE | 2018-07-27 15:06 | ULT ---
ULTRASOUND GUIDED PARACENTESIS: HISTORY: Recurrent ascites. FINDINGS: After informed consent was obtained, the right lower quadrant was prepped and draped in normal steril e fashion. Local anesthesia was obtained with 1% Xylocaine mixed with sodium bicarb. A small skin i ncision was made with a #11 scalpel blade. A 6 Citizen Of [place] Brickstream catheter was introduced into the fluid co llection without difficulty. Approximately 7 liters of a typical straw-colored ascites was obtained. The patient tolerated the procedure well. There were no immediate complications. IMPRESSION: Successful ultrasound-guided paracentesis of 7 liters of fluid. POS: [facility]
== END 2018-07-27 10:50 | disposition home or self-care (01) ==
LOC: ULT 08:26
PROVIDERS: ATTEND Internal Medicine Gastroenterology
PROC: 0W9G3ZZ Drainage of Peritoneal Cavity, Percutaneous Approach (ICD-10-PCS; principal; 2018-07-27)
DX: R18.8 Other ascites (principal); K74.60 Unspecified cirrhosis of liver; E11.9 Type 2 diabetes mellitus without complications; I10 Essential (primary) hypertension; J44.9 Chronic obstructive pulmonary disease, unspecified
CPT/HCPCS: 36415; 49083; 80053; 80306; 85025; 85610; 85730; J2001; P9047

== ENCOUNTER 2018-08-10 08:54 | Day surgery (SDC) | payer OTHER ==
[2018-08-09 13:48] VITALS: BMI 25.0
[2018-08-10] MEDS ORDERED: Albumin 25% 100 ML ONE (09:25)
[2018-08-10] MEDS ORDERED: Sodium Bicarbonate 2.5 MEQ/5 ML VIAL ONE (09:25)
--- NOTE | 2018-08-10 12:07 | ULT ---
ULTRASOUND GUIDED PARACENTESIS: 08/10/2018 HISTORY: Symptomatic ascites. COMPARISON: 07/27/2018 and prior. TECHNIQUE/FINDINGS: Informed consent obtained prior to the procedure. Preprocedural imaging demonstrated ascites through out the abdomen/pelvis. The right lower quadrant was prepped and draped in a normal sterile fashion and anesthetized with 1% buffered Lidocaine. With direct sonographic guidance, a [address] was advanced into the ascites, and removal of stylet yielded yellow fluid (3 L was obtained). At this point, flow ceased. Ascites remained and, thus, a site slightly more cephalad was prepped and draped in a normal sterile fashion and anesthetized with 1% buffered Lidocaine. A second 5 Romanian Armstrong eh catheter was advanced into the ascites, and removal of the stylet yielded fluid. An additional 29 00 mL was removed. The patient tolerated the procedure well. IMPRESSION: Successful ultrasound-guided paracentesis, yielding 5900 mL of clear-yellow fluid. POS: [facility]
[2018-08-10 12:10] VITALS: BP 103/55; TEMP 98.4
== END 2018-08-10 11:25 | disposition home or self-care (01) ==
LOC: ULT 08:54
PROVIDERS: ATTEND Internal Medicine Gastroenterology
PROC: 0W9G3ZZ Drainage of Peritoneal Cavity, Percutaneous Approach (ICD-10-PCS; principal; 2018-08-10)
DX: R18.8 Other ascites (principal); K74.60 Unspecified cirrhosis of liver; Z87.891 Personal history of nicotine dependence; Z79.899 Other long term (current) drug therapy; Z88.0 Allergy status to penicillin; Z88.1 Allergy status to other antibiotic agents; Z88.5 Allergy status to narcotic agent
CPT/HCPCS: 36415; 49083; 80048; P9047

== ENCOUNTER 2018-08-24 07:04 | Outpatient (CLI) | payer OTHER ==
--- NOTE | 2018-08-24 09:43 | ULT ---
ULTRASOUND HEPATIC DOPPLER: Date: 08/24/18 HISTORY: Cirrhosis. COMPARISON: CT dated 09/24/17. FINDINGS: Visualized portions of aorta and IVC are unremarkable. There is diffuse increased hepatic echotexture with coarsening, as well as a nodular contour. A TIPS catheter is in place, which is patent. Given t he TIPS catheter, there is normal expected directional flow within the hepatic and portal veins. Moderate volume ascites. Spleen is enlarged, measuring 17.3 cm in length. Splenic artery and vein are patent. Prior cholecystectomy. Common bile duct measures 4.0 mm. IMPRESSION: 1. Hepatic cirrhosis without mass. 2. Patent TIPS catheter. POS: [facility]
== END 2018-08-24 07:05 | disposition home or self-care (01) ==
LOC: BICULT 07:04
PROVIDERS: ATTEND Physician Assistant Medical
DX: K74.60 Unspecified cirrhosis of liver (principal); K72.90 Hepatic failure, unspecified without coma; R18.8 Other ascites
CPT/HCPCS: 76705

== ENCOUNTER 2018-08-24 08:08 | Day surgery (SDC) | payer OTHER ==
[2018-08-19 12:53] VITALS: BMI 29.7
[2018-08-24] MEDS ORDERED: Albumin 25% 100 ML ONE (08:41)
[2018-08-24 12:01] VITALS: BP 110/58; TEMP 97.9
--- NOTE | 2018-08-24 12:03 | ULT ---
ULTRASOUND GUIDED PARACENTESIS: Date: 08/24/18 HISTORY: Ascites. TECHNIQUE: After informed consent was obtained, the patient was placed on the sonography table in the supine pos ition. Limited sonographic evaluation of the abdomen was performed. An area in the mid axillary line right upper quadrant was marked and then prepped and draped in the usual sterile fashion. Skin and pratt bcutaneous tissues were infiltrated with buffered 1% lidocaine for local anesthesia. A small skin incision was made. Utilizing concurrent real-time ultrasound guidance, a 19 gauge Yueh n eedle with 5 Japanese sheath was advanced into the abdomen. After return of fluid, the catheter was adv anced and the needle was removed. Approximately 5 liters of cloudy, mcgill-colored fluid was aspirated. The catheter was removed and hemostasis was achieved with direct pressure. A dry, sterile dressing wa s placed at puncture site. Follow-up ultrasound examination demonstrates only minimal residual intraperitoneal free fluid. The p atient tolerated the procedure well and without immediate complication. IMPRESSION: Technically successful ultrasound guided paracentesis. POS: [facility]
== END 2018-08-24 10:35 | disposition home or self-care (01) ==
LOC: ULT 08:08
PROVIDERS: ATTEND Internal Medicine Gastroenterology
PROC: 0W9G3ZZ Drainage of Peritoneal Cavity, Percutaneous Approach (ICD-10-PCS; principal; 2018-08-24)
DX: R18.8 Other ascites (principal); K74.60 Unspecified cirrhosis of liver; Z88.0 Allergy status to penicillin; Z88.1 Allergy status to other antibiotic agents; Z88.5 Allergy status to narcotic agent; Z79.899 Other long term (current) drug therapy
CPT/HCPCS: 49083; 76705; P9047

== ENCOUNTER 2018-09-07 08:28 | Day surgery (SDC) | payer OTHER ==
[2018-09-06 11:57] VITALS: BMI 25.0
[2018-09-07] MEDS ORDERED: Sodium Bicarbonate 2.5 MEQ/5 ML VIAL ONE (09:36)
[2018-09-07] MEDS ORDERED: Albumin 25% 100 ML ONE (09:36)
[2018-09-07 11:55] VITALS: BP 100/59; TEMP 97.7
--- NOTE | 2018-09-07 13:48 | ULT ---
ULTRASOUND GUIDED PARACENTESIS: Date: 09/07/18 INDICATION: Cirrhosis with ascites. TECHNIQUE: Informed consent was obtained. Preprocedural ultrasound was performed, demonstrating a moderate to pr ominent amount of ascites. Timeout was performed. Site overlying the left lower quadrant was marked. The site was prepped and draped in the usual sterile fashion. Buffered 1% lidocaine was administered to the overlying subcutaneous tissues. Under ultrasound guidance, a Yueh catheter was guided down int o the largest collection in the left lower quadrant. There was removed of 5 liter with normal appeari ng peritoneal fluid. The patient tolerated the procedure without difficulty. IMPRESSION: Successful ultrasound guided paracentesis with removal of 5 liters of normal appearing peritoneal flu id. POS: [facility]
== END 2018-09-07 11:15 | disposition home or self-care (01) ==
LOC: ULT 08:28
PROVIDERS: ATTEND Internal Medicine Gastroenterology
PROC: 0W9G3ZZ Drainage of Peritoneal Cavity, Percutaneous Approach (ICD-10-PCS; principal; 2018-09-07)
DX: R18.8 Other ascites (principal); K74.60 Unspecified cirrhosis of liver; Z79.899 Other long term (current) drug therapy; Z88.0 Allergy status to penicillin; Z88.1 Allergy status to other antibiotic agents; Z88.2 Allergy status to sulfonamides; Z88.5 Allergy status to narcotic agent
CPT/HCPCS: 49083; P9047

== ENCOUNTER 2018-09-21 08:23 | Day surgery (SDC) | payer OTHER ==
[2018-09-20 11:11] VITALS: BMI 28.6
[2018-09-21] MEDS ORDERED: Albumin 25% 100 ML ONE (09:04)
--- NOTE | 2018-09-21 12:52 | ULT ---
ULTRASOUND GUIDED PARACENTESIS: History: Ascites, recurrent. Technique: Multiple longitudinal and transverse images of the pelvis were obtained. FINDINGS: A large pocket of fluid was seen in the left lower quadrant of the abdomen. The overlying skin was pr epped and draped in the usual sterile manner. A 1% Lidocaine solution was used to anesthetize the ove rlying soft tissues. A small dermatomy was made. A 5 Andorran Yueh needle was placed into the peritonea l cavity. A total of 4500 ml of peritoneal fluid was removed without difficulty. IMPRESSION: Successful ultrasound guided paracentesis. POS: [facility]
[2018-09-21 13:00] VITALS: BP 113/63; TEMP 98.6
== END 2018-09-21 10:35 | disposition home or self-care (01) ==
LOC: ULT 08:23
PROVIDERS: ATTEND Radiology Neuroradiology
PROC: 0W9G3ZZ Drainage of Peritoneal Cavity, Percutaneous Approach (ICD-10-PCS; principal; 2018-09-21)
PROC: BW40ZZZ Ultrasonography of Abdomen (ICD-10-PCS; principal; 2018-09-21)
DX: R18.8 Other ascites (principal); K74.60 Unspecified cirrhosis of liver; Z87.891 Personal history of nicotine dependence; Z88.1 Allergy status to other antibiotic agents; Z88.5 Allergy status to narcotic agent; Z88.0 Allergy status to penicillin; Z88.2 Allergy status to sulfonamides; Z79.1 Long term (current) use of non-steroidal anti-inflammatories (NSAID); Z79.899 Other long term (current) drug therapy; Z98.890 Other specified postprocedural states
CPT/HCPCS: 49083; P9047

== ENCOUNTER 2018-10-19 08:58 | Day surgery (SDC) | payer OTHER ==
[2018-10-18 14:06] VITALS: BMI 27.3
[2018-10-19 09:26] LABS: INR-International Normal Ratio 1.3; PTT 42.8 SEC (22.9-36.1); Prothrombin Time 16.3 SEC (12.0-14.7)
[2018-10-19 09:31] LABS: Hemoglobin 9.4 g/dL (12.0-16.0); Mean Corpuscular HGB CONC 33.2 g/dL (32.0-36.0); Mean Corpuscular Hemoglobin 29.1 pg (27.0-31.0); Mean Corpuscular Volume 87.8 fL (78.0-98.0); Mean Platelet Volume 8.6 fL (7.4-10.4); Platelet Count 80 thou/uL (130-400); RBC Distribution Width 14.9 % (11.5-14.5); Red Blood Cell (RBC) Count 3.21 mill/uL (4.20-5.40); White Blood Cell (WBC) Count 3.4 thou/uL (4.8-10.8)
[2018-10-19] MEDS ORDERED: Sodium Bicarbonate 2.5 MEQ/5 ML VIAL ONE (09:39)
[2018-10-19] MEDS ORDERED: Lidocaine 1% PF 5 ML VIAL ONE (09:39)
[2018-10-19 11:25] VITALS: BP 97/55; TEMP 97.7
--- NOTE | 2018-10-19 14:10 | ULT ---
ULTRASOUND GUIDED PARACENTESIS: 10/19/2018 HISTORY: Symptomatic ascites. COMPARISON: None. FINDINGS: Informed consent obtained prior to the procedure. Pre-procedural imaging demonstrates ascites within the abdomen and pelvis, most prominent in the left lower quadrant. The skin overlying the left lower quadrant was prepped and draped in a normal sterile fashion and ane sthetized with 1% buffered Lidocaine. With direct sonographic guidance, a 5 Sri Lankan Demandforceeh catheter was advanced into the ascites within the left lower quadrant, and removal of the stylet yielded yellow-o range fluid (2.8 L was removed). The patient tolerated the procedure well. IMPRESSION: Successful ultrasound-guided paracentesis. POS: [facility]
== END 2018-10-19 11:05 | disposition home or self-care (01) ==
LOC: ULT 08:58
PROVIDERS: ATTEND Internal Medicine Gastroenterology
PROC: 0W9G3ZZ Drainage of Peritoneal Cavity, Percutaneous Approach (ICD-10-PCS; principal; 2018-10-19)
PROC: BW40ZZZ Ultrasonography of Abdomen (ICD-10-PCS; principal; 2018-10-19)
DX: R18.8 Other ascites (principal); K74.60 Unspecified cirrhosis of liver; Z88.5 Allergy status to narcotic agent; Z88.0 Allergy status to penicillin; Z88.2 Allergy status to sulfonamides; Z79.2 Long term (current) use of antibiotics; Z79.899 Other long term (current) drug therapy
CPT/HCPCS: 49083; 85027; 85610; 85730; J2001

== ENCOUNTER 2018-11-02 09:13 | Day surgery (SDC) | payer OTHER ==
[2018-11-01 10:46] VITALS: BMI 27.3
--- NOTE | 2018-11-02 11:32 | ULT ---
ULTRASOUND GUIDED PARACENTESIS: Pre procedure diagnosis: Ascites Post procedure diagnosis: Ascites Assistant Manager [employer] Operations: Mario Complications: None Specimen: 4600 ml of straw colored fluid. Anesthesia: 6 ml of buffered 1% Lidocaine Technique: Prior to the procedure the risks and benefits of an ultrasound guided paracentesis were explained to the patient and she consented fully to the procedure. An ultrasound was performed showing the largest fluid collection in the left lower quadrant of the abdomen. The left lower quadrant of the abdomen was prepped and draped in the usual sterile fashion. Lidocaine was used to anesthetize the skin and soft tissues down towards the peroneal cavity. A small skin inc ision was made allowing for passage of the Ariel catheter and needle. This was placed using ultrasound guidance into the peritoneal cavity. The [place] needle was removed and the catheter left in place. This was attached to multiple vacuum maude ection bottles. A total of 4600 ml of straw colored fluid was removed. No residual fluid was seen at the completion of the paracentesis. IMPRESSION: 1. Status post successful ultrasound guided paracentesis. POS: [facility]
== END 2018-11-02 11:00 | disposition home or self-care (01) ==
LOC: ULT 09:13
PROVIDERS: ATTEND Internal Medicine Gastroenterology
PROC: 0W9G3ZZ Drainage of Peritoneal Cavity, Percutaneous Approach (ICD-10-PCS; principal; 2018-11-02)
DX: K74.60 Unspecified cirrhosis of liver (principal); R18.8 Other ascites; J44.9 Chronic obstructive pulmonary disease, unspecified; E11.9 Type 2 diabetes mellitus without complications; I10 Essential (primary) hypertension; K21.9 Gastro-esophageal reflux disease without esophagitis; G89.29 Other chronic pain; M54.9 Dorsalgia, unspecified; K72.90 Hepatic failure, unspecified without coma; Z87.891 Personal history of nicotine dependence; Z79.899 Other long term (current) drug therapy; Z88.0 Allergy status to penicillin; Z88.2 Allergy status to sulfonamides; Z88.5 Allergy status to narcotic agent
CPT/HCPCS: 49083

== ENCOUNTER 2018-11-10 10:31 | Day surgery (SDC) | payer OTHER ==
[2018-11-09 13:50] VITALS: BMI 28.2
[2018-11-10] MEDS ORDERED: PROPOFOL 200 MG/20 ML VIAL ONE (12:57)
--- NOTE | 2018-11-10 14:21 | OP ---
DATE OF PROCEDURE: 11/10/2018 CLINICAL OPERATIONS LEADER SURGEON: None. PROCEDURE PERFORMED: Esophagogastroduodenoscopy, diagnostic. INDICATIONS: 1. Vomiting. 2. Iron-deficiency anemia. 3. Prior history of esophageal varices with banding in the past. MEDICATIONS: See Anesthesia record. FINDINGS: After discussion of the risks, benefits, and alternatives of the procedure, informed consent was obtained and witnessed. Pre-endoscopic cardiopulmonary examination was satisfactory. Time-out was performed before sedation was achieved. Sedation was achieved with Anesthesia assistance in the endoscopy unit. A Pentax adult upper endoscope was placed into the oropharynx and passed through the cricopharyngeus under direct visualization. The proximal and mid esophageal mucosa appeared normal. In the distal esophagus, there was evidence of some scarring, but no evidence of any esophageal varices. The Z-line appears regular at 35 cm from the incisors. The endoscope was advanced beyond the GE junction and into the stomach. Forward and retroflexed views of the entire gastric mucosa were obtained. There were no gastric varices. There was no evidence of any old blood or active bleeding in the stomach. There was diffuse edema and characteristic mosaic appearance throughout the gastric fundus and body consistent with portal hypertensive gastropathy. In the gastric antrum, there are multiple telangiectasias consistent with gastric antral vascular ectasia (GAVE). There is no active bleeding or oozing from any of these sites on this examination. No endoscopic therapy was applied. The endoscope was advanced through the pylorus and into the first and second portions of the duodenum, which appeared normal. The upper endoscope was completely withdrawn, and the patient allowed to recover. The patient tolerated the procedure well. There were no immediate postprocedure complications. IMPRESSION: 1. Gastric antral vascular ectasia, nonbleeding. 2. Diffuse portal hypertensive gastropathy. 3. No esophageal or gastric varices. RECOMMENDATIONS: 1. Continue PPI. 2. Continue iron supplementation. 3. Follow up with Dr. Schmid or his physician pharmacy innovation assistant next week. Job ID: [id number]
== END 2018-11-10 14:39 | disposition home or self-care (01) ==
LOC: SDC 10:31
PROVIDERS: ATTEND Internal Medicine
PROC: 0DJ08ZZ Inspection of Upper Intestinal Tract, Via Natural or Artificial Opening Endoscopic (ICD-10-PCS; principal; 2018-11-10)
DX: K31.819 Angiodysplasia of stomach and duodenum without bleeding (principal); K76.6 Portal hypertension; K31.89 Other diseases of stomach and duodenum; K74.60 Unspecified cirrhosis of liver; R18.8 Other ascites; K72.90 Hepatic failure, unspecified without coma; D50.9 Iron deficiency anemia, unspecified; Z87.891 Personal history of nicotine dependence; Z79.899 Other long term (current) drug therapy; Z88.0 Allergy status to penicillin; Z88.1 Allergy status to other antibiotic agents; Z88.2 Allergy status to sulfonamides; Z88.5 Allergy status to narcotic agent
CPT/HCPCS: J2704

== ENCOUNTER → 2018-11-15 | Day surgery (SDC) | payer OTHER ==
[~2018-11-15] MED LIST changes: +Acetaminophen 325 MG TAB ONE; -Prevnar 13-Val Conj/PF 0.5 ML SYRINGE IM ONE; +Sodium Chloride 0.9% 10 ML ONE
[2018-11-15 15:55] VITALS: BP 105/68; TEMP 98.4
== END ==
LOC: SDC/OP 07:48
PROVIDERS: ATTEND Internal Medicine Gastroenterology
PROC: 30233N1 Transfusion of Nonautologous Red Blood Cells into Peripheral Vein, Percutaneous Approach (ICD-10-PCS; principal; 2018-11-15)
DX: D64.9 Anemia, unspecified (principal); K92.2 Gastrointestinal hemorrhage, unspecified; K74.60 Unspecified cirrhosis of liver; Z88.5 Allergy status to narcotic agent; Z88.0 Allergy status to penicillin; Z88.2 Allergy status to sulfonamides; Z79.2 Long term (current) use of antibiotics; Z79.899 Other long term (current) drug therapy
CPT/HCPCS: 36415; 36430; 86850; 86900; 86901; P9016

== ENCOUNTER 2018-11-16 08:22 | Day surgery (SDC) | payer OTHER ==
[2018-11-15 11:37] VITALS: BMI 27.3
[2018-11-16] MEDS ORDERED: Lidocaine 1% PF 5 ML VIAL ONE (08:25)
[2018-11-16] MEDS ORDERED: Sodium Bicarbonate 2.5 MEQ/5 ML VIAL ONE (08:25)
--- NOTE | 2018-11-16 12:40 | ULT ---
ULTRASOUND GUIDED PARACENTESIS: HISTORY: Ascites. COMPARISON: 11/02/2018 FINDINGS: Successful ultrasound guided paracentesis. A total of 7 L of slightly cloudy yellow-colored ascites was aspirated. No immediate or post procedure complications. TECHNIQUE: Consent obtained to perform an ultrasound guided paracentesis. The right lower quadrant was deemed a ppropriate. The skin was prepped and draped in a sterile fashion, and 1% Lidocaine, buffered with so dium bicarbonate, was used for local anesthesia. Under ultrasound guidance, a 5 Sudanese, 7 cm Exeroseh ca theter was advanced into the peritoneal space. Via vacuum bottles, a total of 7 L of slightly cloudy yellow-colored ascites was aspirated. The patient tolerated the procedure well. No immediate or po st procedure complications. IMPRESSION: Successful ultrasound guided paracentesis. POS: [facility]
[2018-11-16 13:03] LABS: BF Color Gray; Body Fluid Source Peritoneal Fluid; Clarity Hazy (Clear)
[2018-11-16 13:04] LABS: BF RBC Count - Manual 50 /cumm; BF WBC/Nonhematics Ct. - Manua 20 /cumm; Tube # EDTA
[2018-11-16 13:07] VITALS: BP 104/68; TEMP 97.5
[2018-11-16] MEDS ORDERED: Albumin 25% 100 ML ONE (13:09)
[2018-11-16 14:37] LABS: BF Segmented Neutrophils 3 %; Cell Count Non Hematic 86 %; Lymphocytes 11 %
== END 2018-11-16 11:55 | disposition home or self-care (01) ==
LOC: ULT 08:22
PROVIDERS: ATTEND Internal Medicine Gastroenterology
PROC: 0W9G3ZX Drainage of Peritoneal Cavity, Percutaneous Approach, Diagnostic (ICD-10-PCS; principal; 2018-11-16)
DX: K74.60 Unspecified cirrhosis of liver (principal); R18.8 Other ascites; M19.90 Unspecified osteoarthritis, unspecified site; F17.200 Nicotine dependence, unspecified, uncomplicated; K21.9 Gastro-esophageal reflux disease without esophagitis; E11.9 Type 2 diabetes mellitus without complications; I10 Essential (primary) hypertension; G89.29 Other chronic pain; M54.9 Dorsalgia, unspecified; J44.9 Chronic obstructive pulmonary disease, unspecified; Z79.899 Other long term (current) drug therapy; Z88.0 Allergy status to penicillin; Z88.2 Allergy status to sulfonamides; Z88.5 Allergy status to narcotic agent
CPT/HCPCS: 49083; 85060; 87070; 87077; 87186; 87205; 89051; J2001; P9047

== ENCOUNTER 2018-11-17 14:25 | Inpatient (IN) | payer OTHER ==
[2018-11-17] MEDS ORDERED: Albumin 25% 25 GM/100 ML BOT IVPB SCH ×3 (15:00→22:00)
--- NOTE | 2018-11-17 15:17 | PDOC.FPRHP ---
- History of Present Illness Chief Complaint: concern for SBP History of Present Illness: 52 yo F with PMH cirrhosis s/p TIPS procedure presents for concern for SBP. Pt was a transfer from Dr. Schmid [facility] and is a patient of CARLY Pittman. Yesterday, 11/16 pt underwent paracentesis, 7 L fluid were removed. The fluid grew out gram negative rods, E.coli. Denies Headache, fever/chills, abdominal pain. Reports she has Anemia. Recently positive Fobt. 2 days ago had blood transfusion. EGD last week. Last colonoscopy was in 2017. Pt states the results of colonscopy were normal. - Allergies/Adverse Reactions Allergies Allergy/AdvReac Type Severity Reaction Status Date / Time codeine Allergy Verified 11/16/18 13:05 morphine Allergy Verified 11/16/18 13:05 Penicillins Allergy vomiting Verified 11/17/18 15:06 Sulfa (Sulfonamide Allergy Verified 11/16/18 13:05 Antibiotics) - Home Medications Medication Instructions Recorded Confirmed Type busPIRone HCl [Buspar] 10 mg PO BID 06/08/15 11/17/18 History Esomeprazole Magnesium [NexIUM] 40 mg PO BID 07/02/16 11/17/18 History Albuterol Sulfate [Proair HFA] 2 puff INH Q4HR PRN 10/20/17 11/17/18 History Loratadine [Claritin] 10 mg PO HS 10/20/17 11/17/18 History Iron,Carbonyl [Perfect Iron] 28 mg PO BID 12/15/17 11/17/18 History Mometasone Furoate [Nasonex] 2 spray EA NARE DAILY PRN 04/20/18 11/17/18 History Lactulose [Kristalose] 1 pack PO BID 11/09/18 11/17/18 History traMADol HCl [Tramadol HCl] 50 mg PO QID 11/17/18 11/17/18 History Esomeprazole Magnesium [NexIUM] 40 mg PO BID 11/18/18 11/18/18 History - History PMHx: Cirrhosis s/p tips, esophageal varices, spinal stenosis with herniated disc, GERD, depression, asthma, reports recent memory loss due to clonazepam PSHx: Tips, paracentesis yesterday 11/16/18, 3 section, Cholecystectomy , tonsillectomy FHx: Mother had multiple heart attacks, COPD, HTN, uterine cancer, DM Sister has kidney cancer Social: denies alcohol use, smokes 1-3 packs/day (for total 23 years) 46 PY hx Allergies: codeine -severe vomiting/diarrhea/pain, sulfa- vomiting, morphine- vomiting, penicillins -vomiting and diarrhea, aspirin, stadol - vomiting, tylenol (cirrhosis) - Review of Systems General: denies: fever/chills, weight/appetite/sleep changes Eyes: denies: eye pain, vision changes ENT: denies: nasal congestion, rhinorrhea Respiratory: denies: cough, congestion, shortness of breath Cardiovascular: denies: chest pain, palpitation, edema Gastrointestinal: reports: diarrhea (1 today after lactulose). denies: nausea, vomiting, constipation, abdominal pain, GI bleeding Genitourinary: reports: incontinence (wears pullups for stool incontinence). denies: dysuria, other (hematuria) Skin: denies: rashes, lesions Musculoskeletal: reports: arthritis/arthralgias (hands and knees). denies: pain , tenderness Neurological: denies: numbness, weakness Psychological: reports: anxiety, depression - Vital signs BP: 111/63 HR: 108 RR: 20 Tmax: 98.3 Pox: 100 % on RA Wt: 89.915 kg - Physical Exam Constitutional: NAD, awake, alert and oriented -Constitutional: Thin extremities HEENT: normocephalic and atraumatic, PERRLA, EOMI, conjunctiva clear, MMM, oropharynx clear Neck: supple, trachea midline Heart: RRR, normal S1/S2, no murmurs/rubs/gallops, pulses present, other (1+ pitting edema BLE) Lungs: CTAB, no respiratory distress Abdomen: soft, non-tender, bowel sounds present, other (+distention, fluid wave present) Musculoskeletal: normal tone, ROM grossly normal, other (thin extremities) Neurological: no focal deficit, CN II-XII intact, normal sensation Skin: good turgor, other (bruising on arms bilat, cap refill greater than 2 seconds, no tenting) Heme/Lymphatic: other (bruising on arms) Psychiatric: normal mood and affect, intact recent and remote memory FMR H&P: Results - Labs Result Diagrams: 11/18/18 08:25 11/18/18 04:26 FMR H&P: A/P - Problem List (1) History of tobacco abuse Current Visit: Yes Status: Chronic Code(s): Z87.891 - PERSONAL HISTORY OF NICOTINE DEPENDENCE (2) Depression Current Visit: Yes Status: Chronic Code(s): F32.9 - MAJOR DEPRESSIVE DISORDER, SINGLE EPISODE, UNSPECIFIED (3) Hyponatremia Current Visit: Yes Status: Chronic Code(s): E87.1 - HYPO-OSMOLALITY AND HYPONATREMIA (4) Cirrhosis of liver with ascites Current Visit: No Status: Chronic Code(s): K74.60 - UNSPECIFIED CIRRHOSIS OF LIVER Comment: SPENCER with recurrent ascites, plan for US guided paracentesis in am, GI consult pending. (5) S/P TIPS (transjugular intrahepatic portosystemic shunt) Current Visit: Yes Status: Chronic (6) CKD (chronic kidney disease) stage 3, GFR 30-59 ml/min Current Visit: Yes Status: Chronic Code(s): N18.3 - CHRONIC KIDNEY DISEASE, STAGE 3 (MODERATE) (7) Esophageal varices Current Visit: Yes Status: Chronic Code(s): I85.00 - ESOPHAGEAL VARICES WITHOUT BLEEDING (8) Anemia Current Visit: Yes Status: Acute Code(s): D64.9 - ANEMIA, UNSPECIFIED (9) Spinal stenosis Current Visit: Yes Status: Chronic Code(s): M48.00 - SPINAL STENOSIS, SITE UNSPECIFIED (10) GERD (gastroesophageal reflux disease) Current Visit: Yes Status: Chronic Code(s): K21.9 - GASTRO-ESOPHAGEAL REFLUX DISEASE WITHOUT ESOPHAGITIS (11) Asthma Current Visit: Yes Status: Chronic Code(s): J45.909 - UNSPECIFIED ASTHMA, UNCOMPLICATED - Plan Concern for SBP - Tachycardic - E. Coli grew from paracentesis yesterday - Dr. Cota, GI consulted, appreciate recommendations - Started IV ceftriaxone - NS @ 75 ml/hr - Albumin 100 gm - US hepatic pending - CBC pending - Blood cultures and U cx pending - Continue to monitor vitals closely - PT prolonged at 16, INR 1.3 Cirrhosis 2/2 NAFLD s/p TIPS procedure -Follows with Dr. Schmid. 7L removed yesterday via paracentesis. -On lactulose Hyponatremia -aware - 2/2 cirrhosis CKD - GFR 36 - Cr at baseline Esophageal varices -recent EGD showed on 10/15: Gastric antral vascular ectasia, nonbleeding. Diffuse portal hypertensive gastropathy. - Recommended continuing Fe and PPI Anemia - blood transfusion last week - CBC pending Hypoalbuminemia - albumin IV as above Spinal Stenosis GERD -continue PPI Asthma Depression Dispo: inpatient medical Dvt ppx: SCDs Diet: Regular GI ppx: PPI PCP: Tamp Code: full FMR H&P: Upper Level - Pertinent history 52F seen by her strapping machine operator for q2week paracentesis yesterday and sent over for direct admission this afternoon after peritoneal fluid grew out GNR. She has a hx of cirrhosis s/p TIPS in May 201810/01 to alcohol. She also has a history of varices and banding. Patient denies any fever/chills, abdominal pain, n/v, new skin rashes, headache. However, due to lab findings she will be admitted for spontaneous bacterial peritonitis. EGD done last week shows portal gastropathy. She also has a history of chronic anemia with positive FOBT recently. - Pertinent findings 98.3F 108 bpm 20 RR 100% on RA 111/63 Gen: no acute distress CV: RRR; no murmurs Pulm: CTA-B Abd: non tender; positive fluid wave Ext: 1+ pitting edema bilaterally labs and imaging pending at time of admission - Plan Date/Time: 11/17/18 1516 I, Harjit Abbasi, have evaluated this patient and agree with findings/plan as outlined by internet project manager resident. Pertinent changes/additions are listed here. Suspected SBP: will tx with rocephin as this is likely E. coli given preliminary GNR culture. GI has been consulted and has already evaluated patient. We will restart home medications, including albumin at this time. Will f/u on the US as well as admission labs. Monitor vital signs. She is currently asymptomatic and denies abdominal tenderness. Cirrhosis s/p TIPS: hx of esophageal varices, portal gastropathy, and transfusion dependent anemia. Continue lactulose and lasix. Meld and Lilia Pederson scores pending. Addendum - Attending - Attending Attestation Date/Time: 11/18/18 1342 I personally evaluated the patient and discussed the management with Drs. Abbasi and Denton at time of admission yesterday. I agree with the History, Examination, Assessment and Plan documented above with any addition or exceptions noted below.
[2018-11-17] MEDS: Sodium Chloride 0.9% 1,000 ML IV SCH (15:57)
[2018-11-17 16:17] LABS: INR-International Normal Ratio 1.3; Prothrombin Time 16.4 SEC (12.0-14.7)
[2018-11-17 16:23] LABS: ALT (SGPT) 26 U/L (8-55); AST (SGOT) 39 U/L (5-34); Albumin 2.8 g/dL (3.5-5.0); Alkaline Phosphatase 126 U/L (40-150); Anion Gap 11 mmol/L (10-20); BUN (Urea Nitrogen) 24 mg/dL (7.0-18.7); Bilirubin, Total 1.9 mg/dL (0.2-1.2); Calc. Creatinine Clearance 59 mL/min (70-130); Calcium 8.3 mg/dL (7.8-10.44); Carbon Dioxide 18 mmol/L (22-29); Chloride 102 mmol/L (98-107); Estimated GFR-MDRD 36; Globulin 2.8 g/dL (2.4-3.5); Glucose 166 mg/dL (70-105); Potassium 4.1 mmol/L (3.5-5.1); Protein, Total 5.6 g/dL (6.0-8.3); Sodium 127 mmol/L (136-145)
[2018-11-17] MEDS ORDERED: Ondansetron ODT 4 MG TAB PO PRN (16:32)
[2018-11-17] MEDS ORDERED: Ondansetron PF 4 MG/2 ML Vial IVP PRN (16:32)
[2018-11-17 17:00] LABS: Hemoglobin 8.8 g/dL (12.0-16.0); Mean Corpuscular HGB CONC 33.6 g/dL (32.0-36.0); Mean Corpuscular Hemoglobin 30.2 pg (27.0-31.0); Mean Corpuscular Volume 89.8 fL (78.0-98.0); Platelet Count 75 thou/uL (130-400); RBC Distribution Width 14.1 % (11.5-14.5); Red Blood Cell (RBC) Count 2.91 mill/uL (4.20-5.40); White Blood Cell (WBC) Count 4.1 thou/uL (4.8-10.8)
[2018-11-17 17:03] LABS: Band 4 % (5-11); Eosinophils 2 % (0-10); Lymphocytes 17 % (21-51); MDiff Complete? YES; Monocytes 12 % (0-10); Neutrophil 61 % (42-75); Ovalocytes SLIGHT = 2-5 cells (100X) (0-1/hpf); Platelet Morphology Comment Appears Decreased; Polychromasia SLIGHT = 2-3 cells (100X) (0-2/hpf)
[2018-11-17] MEDS: cefTRIAXone\\ROCEPHIN 2 GM in Sodium Chloride 0.9% 100 ML IVPB SCH (17:07)
[2018-11-17] MEDS: Albumin 25% 25 GM/100 ML BOT IVPB SCH ×2 (18:40→21:52)
[2018-11-17] MEDS: Loratadine 10 MG TAB PO SCH (20:51)
[2018-11-17] MEDS ORDERED: Pantoprazole 40 MG VIAL IVP SCH (21:00)
[2018-11-17] MEDS ORDERED: traMADol HCl 50 MG TAB PO SCH (21:45)
[2018-11-17] MEDS: Promethazine 25 MG TAB PO PRN (21:57)
[2018-11-17] MEDS: busPIRone HCl 10 MG TAB PO SCH (21:57)
--- NOTE | 2018-11-17 22:38 | CON ---
DATE OF CONSULTATION: 11/17/2018 CHIEF COMPLAINT: Abdominal pain. HISTORY OF PRESENT ILLNESS: Ms. Gonzalez is a 52-year-old woman with a history of cirrhosis secondary to past alcohol. She has had a TIPS procedure in the past. She underwent paracentesis yesterday for symptomatic ascites. The lab called today to report that her fluid culture grew out gram-negative rods and she was admitted for spontaneous bacterial peritonitis. She has had some diffuse abdominal pain, which is mild aching recently. She has had some intermittent vomiting, but not in the last couple of weeks. No chest pain or shortness of breath. She has had some leg cramps. No blood in the stool. No black stools. She did have an EGD last week for worsening anemia that showed portal hypertensive gastropathy, but no other bleeding source. PAST MEDICAL HISTORY: Cirrhosis. PAST SURGICAL HISTORY: TIPS procedure and EGD. FAMILY HISTORY: Negative for GI malignancy. SOCIAL HISTORY: She is a former drinker. Former smoker. No drugs. ALLERGIES: CODEINE, MORPHINE, PENICILLIN, AND SULFA. MEDICATIONS: As an outpatient include; 1. Buspirone. 2. Furosemide. 3. Lactulose. 4. Nasonex. 5. Nexium. 6. ProAir HFA. 7. Tramadol. 8. Xifaxan. REVIEW OF SYSTEMS: Negative x10 systems reviewed except as stated in history of present illness. PHYSICAL EXAMINATION: VITAL SIGNS: Blood pressure 111/63, temperature 98.3, pulse 108, and oxygen saturation 100% on room air. GENERAL: She is in no acute distress. She is alert and oriented x3. HEENT: Her eyes have no scleral icterus. Oropharynx is clear without lesions. NECK: No cervical or supraclavicular lymphadenopathy. NEUROLOGIC: She has no asterixis on neurological exam. LUNGS: Clear to auscultation bilaterally. HEART: Tachycardic. S1, S2. ABDOMEN: Soft, nontender. Minimal distention. Bowel sounds are present. EXTREMITIES: No lower extremity edema. LABORATORY DATA: White blood cell count 6.3, hemoglobin 6.5, and platelets 116. INR 1.3. Creatinine 1.64. This lab was from 11/14 as was the CBC reported. She did have paracentesis yesterday and the fluid white blood cell count was 20. Fluid culture grew gram-negative rods. Last LFTs are from 09/07, bilirubin was 1.5, alkaline phosphatase 162, AST 30, ALT 11, and albumin 2.6. AFP was 2.2 on 11/07/2018. She had an ammonia level on 11/07/2018 of 88. Iron was 27, TIBC was 245. She also did have LFTs on 11/07/2018 through the office and her bilirubin was 0.8, then alkaline phosphatase 131, AST 53, and ALT 34. Creatinine was 1.95 at that time. IMPRESSION: 1. Spontaneous bacterial peritonitis. She had paracentesis yesterday and the fluid is growing gram-negative rods. Gram-negative rods would be an unusual skin contaminant, so we will treat this as a real infection. I do question the validity of this given the fluid white blood cell count of 20, and normal serum white blood cell count and completely soft and nontender abdomen. Given the elevated creatinine, we certainly would not want to delay treatment as she is developing spontaneous bacterial peritonitis and will initiate antibiotics today. 2. Acute renal insufficiency. Her creatinine is elevated to 1.64 on 11/14/2018. Her baseline creatinine is closer to 1.2 to 1.4. Given the spontaneous bacterial peritonitis, we will give albumin bolus today and then repeat on the 3rd day. 3. Mild hepatic encephalopathy. She is still slow to answer questions, but she has no asterixis. Her ammonia was elevated recently. We will continue with lactulose and Xifaxan. 4. Iron deficiency anemia. This appears to be secondary to portal hypertensive gastropathy based on the recent esophagogastroduodenoscopy. She may have gastric antral vascular ectasia as well. Spontaneous bacterial peritonitis would be a contraindication to nonselective beta blockers. This will have to be again taken in clinical context based on what her anemia does and we will see how she response to antibiotics. 5. History of transjugular intrahepatic portosystemic shunt procedure. We will assess this with Doppler ultrasound tomorrow. RECOMMENDATIONS: 1. Ultrasound liver with Dopplers tomorrow. 2. Ceftriaxone 2 g IV q.24 hours. 3. Albumin infusion. 4. Continue to follow trend of her creatinine. 5. Check her hemoglobin and transfuse if necessary. 6. Continue Xifaxan and lactulose. Job ID: [id number]
[2018-11-18] MEDS: Albumin 25% 25 GM/100 ML BOT IVPB SCH ×2 (00:37→01:38)
[2018-11-18] MEDS: Sodium Chloride 0.9% 1,000 ML IV SCH ×3 (04:20→22:38)
[2018-11-18 04:55] LABS: Hemoglobin 5.8 g/dL (12.0-16.0); Mean Corpuscular HGB CONC 33.3 g/dL (32.0-36.0); Mean Corpuscular Hemoglobin 29.8 pg (27.0-31.0); Mean Corpuscular Volume 89.6 fL (78.0-98.0); Mean Platelet Volume 7.1 fL (7.4-10.4); Platelet Count 50 thou/uL (130-400); RBC Distribution Width 14.1 % (11.5-14.5); Red Blood Cell (RBC) Count 1.95 mill/uL (4.20-5.40); White Blood Cell (WBC) Count 2.7 thou/uL (4.8-10.8)
[2018-11-18 05:09] LABS: Anion Gap 10 mmol/L (10-20); BUN (Urea Nitrogen) 23 mg/dL (7.0-18.7); Calc. Creatinine Clearance 64 mL/min (70-130); Calcium 7.8 mg/dL (7.8-10.44); Carbon Dioxide 19 mmol/L (22-29); Chloride 104 mmol/L (98-107); Estimated GFR-MDRD 40; Glucose 170 mg/dL (70-105); Potassium 3.6 mmol/L (3.5-5.1); Sodium 129 mmol/L (136-145)
[2018-11-18 05:13] LABS: Band 4 % (5-11); Hypochromia SLIGHT = 6-15 cells (100X) (0-5/hpf); Lymphocytes 16 % (21-51); MDiff Complete? YES; Metamyelocyte 2 % (0-0); Monocytes 6 % (0-10); Neutrophil 72 % (42-75); Platelet Morphology Comment Appears Decreased
--- NOTE | 2018-11-18 06:31 | PDOC.FM ---
- Subjective Subjective: Patient states she feels well this AM. Patient had a drop in hemoglobin from 8.8 to 5.8 on AM labs this morning. She is asymptomatic. - Objective Vital Signs & Weight: Vital Signs (12 hours) Temp Pulse Resp BP Pulse Ox 11/18/18 04:37 98.8 F 128 H 18 129/56 L 100 11/18/18 00:00 98.3 F 111 H 18 115/59 L 100 11/17/18 20:14 98.6 F 106 H 18 102/54 L 100 11/17/18 20:00 100 Weight Weight 83.915 kg I&O: 11/16/18 11/17/18 11/18/18 06:59 06:59 06:59 Intake Total 465 Balance 465 Result Diagrams: 11/18/18 08:25 11/18/18 04:26 Phys Exam - Physical Examination Constitutional: NAD HEENT: PERRLA, moist MMs Respiratory: no wheezing, clear to auscultation bilateral Cardiovascular: no significant murmur Regular rhythm, tachycardic Gastrointestinal: soft, positive bowel sounds Distention increased, soft, some RLQ pain to palpation, no guarding Musculoskeletal: pulses present 2+ pitting edema BLE Psychiatric: normal affect, A&O x 3 Skin: no rash, cap refill <2 seconds Dx/Plan (1) History of tobacco abuse Code(s): Z87.891 - PERSONAL HISTORY OF NICOTINE DEPENDENCE Status: Chronic (2) Depression Code(s): F32.9 - MAJOR DEPRESSIVE DISORDER, SINGLE EPISODE, UNSPECIFIED Status : Chronic (3) Hyponatremia Code(s): E87.1 - HYPO-OSMOLALITY AND HYPONATREMIA Status: Chronic (4) Cirrhosis of liver with ascites Code(s): K74.60 - UNSPECIFIED CIRRHOSIS OF LIVER Status: Chronic (5) S/P TIPS (transjugular intrahepatic portosystemic shunt) Status: Chronic (6) CKD (chronic kidney disease) stage 3, GFR 30-59 ml/min Code(s): N18.3 - CHRONIC KIDNEY DISEASE, STAGE 3 (MODERATE) Status: Chronic (7) Esophageal varices Code(s): I85.00 - ESOPHAGEAL VARICES WITHOUT BLEEDING Status: Chronic (8) Anemia Code(s): D64.9 - ANEMIA, UNSPECIFIED Status: Acute (9) Spinal stenosis Code(s): M48.00 - SPINAL STENOSIS, SITE UNSPECIFIED Status: Chronic (10) GERD (gastroesophageal reflux disease) Code(s): K21.9 - GASTRO-ESOPHAGEAL REFLUX DISEASE WITHOUT ESOPHAGITIS Status: Chronic (11) Asthma Code(s): J45.909 - UNSPECIFIED ASTHMA, UNCOMPLICATED Status: Chronic - Plan Plan: Acute Anemia - received blood transfusion last week - Hgb 8.8 -> 5.9, now tachycardic but asymptomatic - 2 Units PRBCs ordered for transfusion - recent + FOBT - Pt has hx of esophageal varices - Will continue to closely monitor Concern for SBP - Tachycardic, moderate Rt sided tenderness to palpation this AM - E. Coli grew from paracentesis yesterday - Dr. Cota, GI consulted, appreciate recommendations - Started IV ceftriaxone - NS @ 75 ml/hr - Albumin 100 gm - US hepatic: finding sof cirrhosis and portal hypertension. Visualized tip shunt appears patent. Appropriate hepatopetal flow. Mild ascites. - Blood cultures and U cx pending - PT prolonged at 16, INR 1.3 Cirrhosis 2/2 NAFLD s/p TIPS procedure -Follows with Dr. Schmid. 7L removed yesterday via paracentesis. -On lactulose Pancytopenia - WBC 2.7, Hgb 5.8, Plt 50 - Aware Hyponatremia -aware - 2/2 cirrhosis CKD - GFR 40 - Cr at baseline Esophageal varices -recent EGD showed on 10/15: Gastric antral vascular ectasia, nonbleeding. Diffuse portal hypertensive gastropathy. - Recommended continuing Fe and PPI Hypoalbuminemia - albumin IV as above Spinal Stenosis GERD -continue PPI Asthma Depression Dispo: inpatient medical Dvt ppx: SCDs Diet: Regular GI ppx: PPI PCP: Ab Code: full Addendum - Attending - Attending Attestation Date/Time: 11/18/18 1040 I personally evaluated the patient and discussed the management with Dr. Chawla. I agree with the History, Examination, Assessment and Plan documented above with any addition or exceptions noted below. Patient admitted here with concern for bacterial peritonitis based on outpatient ascites cultures performed by her GI docs. She does have some abdominal tenderness, but no overt peritoneal signs. She is on Rocephin 2g daily and we are awaiting final cultures as well as further recs from GI. She is also having some increased fluid retention in her abdomen associated with shortness of breath. She has received albumin and will modify diet to low sodium. She has somewhat low sodium on BMP, improved today, but this is likely related to her cirrhosis and portends a poorer prognosis if it does not improve. She has had to have transfusions in the past, and Hgb dropped overnight and she became progressively tachycardic. We are transfusing 2u this morning. Anticipate this drop was most likely 2/2 dilution as she has no evidence of acute bleed GI or otherwise. Renal function somewhat improved this morning with fluids and albumin. Continue to monitor and await further GI recs. Needs H/H after transfusion.
--- NOTE | 2018-11-18 07:54 | ULT ---
HEPATIC ULTRASOUND WITH DUPLEX EVALUATION: Date: 11/18/18 INDICATION: Evaluate patency. COMPARISON: Prior exam dated 08/24/18. TECHNIQUE: Hwang scale, color Doppler, and spectral Doppler images were obtained of the right upper quadrant and hepatic vasculature. FINDINGS: Again seen is cirrhotic morphology of the liver. The spleen is enlarged and measures 16.7 cm. The gal lbladder is surgically absent. The common bile duct measures 4.5 mm. No sonographic Bennett's sign is reported. The pancreas is largely obscured. There is appropriate directional flow seen within the ella n portal vein; however, the exam detail is slightly limited due to patient cooperation. Hepatopetal f low is present, however, in the visualized tip shunt. Appropriate flow is seen within the hepatic vei ns and hepatic artery. Appropriate flow is seen within the splenic vein and splenic artery. There is mild ascites. IMPRESSION: 1. Findings of cirrhosis and portal hypertension. 2. The visualized tip shunt does appear patent. There is appropriate hepatopetal flow seen within th e hepatic vasculature. 3. Mild ascites. POS: LIZA
[2018-11-18 08:39] LABS: Hemoglobin 5.8 g/dL (12.0-16.0); Platelet Count 55 thou/uL (130-400)
[2018-11-18] MEDS: busPIRone HCl 10 MG TAB PO SCH ×2 (09:29→21:48)
[2018-11-18] MEDS: traMADol HCl 50 MG TAB PO SCH ×4 (09:30→21:49)
[2018-11-18] MEDS: Ferrous Sulfate 325 MG TAB PO SCH ×2 (09:30→16:56)
[2018-11-18] MEDS: Fluticasone Propionate Nasal Spray 16 gm Bottle NASAL PRN ×2 (10:06→21:51)
[2018-11-18] MEDS: PROVENTIL INHALER 6.7 G (200 INHALATIONS) INH PRN ×2 (10:54→14:23)
[2018-11-18] MEDS ORDERED: PROVENTIL INHALER 6.7 G (200 INHALATIONS) INH SCH (11:15)
[2018-11-18] MEDS: cefTRIAXone\\ROCEPHIN 2 GM in Sodium Chloride 0.9% 100 ML IVPB SCH (16:36)
--- NOTE | 2018-11-18 17:27 | PDOC.EVN ---
Event Note - Event Note Event Note: 52 yo F with PMH cirrhosis s/p TIPS procedure presents for concern for SBP. Pt sees Dr. Schmid (GI) and was a transfer from his clinic, [facility]. Her PCP is at [facility]. 11/16 pt underwent paracentesis, 7 L fluid were removed. The fluid grew out gram negative rods, E.coli. Patient Denies Headache, fever/chills, abdominal pain. Dr. Cota (GI) saw the patient on 11/17 in the hospital and ordered initial labwork. Sepsis 2/2 SBP On admission, patient tachycardic, with no abdominal tenderness. E coli grew from paracentesis done 11/16. WBC less than 5. Dr. Schmid directly admitted patient and is following. Pt started on ceftriaxone and NS @ 75ml/hr. Pt also given Albumin. Hepatic sono showed cirrhosis and portal hypertension, with patent TIPS shunt. Blood cultures pending, and Urine cultures showed contamination with skin benjamin. Acute on Chronic Anemia. Reports she has anemia and received blood transfusion 2 days ago. Hgb 8.8 dropped to 5.9 morning of 11/18 after receiving fluids and albumin. She was given 2 units PRBCs. Pt was asymptomatic but tachycardic. This evening 11/18 she had 2 grossly bloody stools. GI was contacted by nursing. Of note, Pt has hx of esophageal varices. EGD last week showed gastric antral vascular ectasia, nonbleeding (he recommends continuing Fe and PPI). Last colonoscopy was in 2017. Pt states the results of colonoscopy were normal. Cirrhosis 2/2 NAFLD s/p TIPS procedure. Follows with Dr. Schmid. 7L removed via paracentesis. She is on lactulose. Pancytopenia. WBC 2.7, Hgb 5.8, Plt 50. Likely 2/2 splenic congestion.
[2018-11-18 20:37] LABS: Hemoglobin 8.1 g/dL (12.0-16.0)
[2018-11-18 20:42] LABS: Hemoglobin 8.2 g/dL (12.0-16.0); Platelet Count 58 thou/uL (130-400)
[2018-11-18] MEDS ORDERED: Non-Formulary Item 1 EACH (Esomeprazole Magnesium [Nexium] 40 MG) PO SCH (21:00)
[2018-11-18] MEDS: Promethazine 25 MG TAB PO PRN (21:48)
[2018-11-18] MEDS: Loratadine 10 MG TAB PO SCH (21:48)
[2018-11-18] MEDS: LACTULOSE PO SCH (21:48)
[2018-11-18] MEDS: [UNRECOGNIZED DRUG - OTHER] PO SCH ×2 (22:40→22:41)
--- NOTE | 2018-11-18 23:38 | PRG ---
DATE OF SERVICE: 11/18/2018 SUBJECTIVE: Ms. Gonzalez passed a couple of black bloody stools today. She has had no abdominal pain with that. No nausea or vomiting. OBJECTIVE: VITAL SIGNS: Temperature 98.2, pulse 103, blood pressure 104/59. GENERAL: She is in no acute distress. She is oriented x3, however, still seems a little slow. She has no asterixis on neurological exam. LUNGS: Clear to auscultation bilaterally. HEART: tachycardic, S1 and S2. ABDOMEN: Soft, nontender, nondistended. Bowel sounds are present. EXTREMITIES: Trace lower extremity edema. RECTAL: Reveals some dark stool in the rectal vault. LABORATORY DATA: White blood cell count 2.7, hemoglobin 8.1 after 2 units of transfusion, platelets 58,000. INR 1.3. Creatinine 1.4. IMPRESSION: 1. Acute on chronic anemia. She just underwent upper endoscopy last week, which identified gastric antral vascular ectasia. She is likely bleeding from this again. She did have a drop in her hemoglobin, again requiring transfusion. 2. Decompensated cirrhosis with ascites and elevated bilirubin and low albumin. She does have renal insufficiency and her creatinine is improved from 1.5 to 1.4. 3. Ascites with spontaneous bacterial peritonitis. She grew Klebsiella from her ascitic fluid, which is commonly seen as a source for spontaneous bacterial peritonitis. This makes contamination less likely; however, her fluid white blood cell count was only 20. She is on ceftriaxone to treat the spontaneous bacterial peritonitis. RECOMMENDATIONS: 1. Continue ceftriaxone. 2. She has been given albumin infusion yesterday and this will be repeated again tomorrow, that will be given at 1 mg/kg tomorrow. 3. Plan upper endoscopy tomorrow to evaluate for bleeding source and potentially cauterize the gastric antral vascular ectasia with argon plasma coagulation. Job ID: [id number]
[2018-11-19 04:37] LABS: Band 2 % (5-11); Eosinophils 3 % (0-10); Lymphocytes 15 % (21-51); MDiff Complete? YES; Mean Corpuscular HGB CONC 33.6 g/dL (32.0-36.0); Mean Corpuscular Hemoglobin 30.1 pg (27.0-31.0); Mean Corpuscular Volume 89.5 fL (78.0-98.0); Mean Platelet Volume 7.5 fL (7.4-10.4); Monocytes 16 % (0-10); Neutrophil 63 % (42-75); Platelet Count 55 thou/uL (130-400); Platelet Morphology Comment Appears Decreased; RBC Distribution Width 15.5 % (11.5-14.5); RBC Morphology Normal; Red Blood Cell (RBC) Count 2.66 mill/uL (4.20-5.40); White Blood Cell (WBC) Count 4.1 thou/uL (4.8-10.8)
[2018-11-19 04:38] LABS: ALT (SGPT) 15 U/L (8-55); AST (SGOT) 25 U/L (5-34); Albumin 2.9 g/dL (3.5-5.0); Alkaline Phosphatase 86 U/L (40-150); Bilirubin, Direct 0.7 mg/dL (0.1-0.3); Bilirubin, Total 1.2 mg/dL (0.2-1.2); Protein, Total 4.8 g/dL (6.0-8.3)
[2018-11-19 04:39] LABS: Anion Gap 11 mmol/L (10-20); BUN (Urea Nitrogen) 21 mg/dL (7.0-18.7); Calc. Creatinine Clearance 73 mL/min (70-130); Calcium 7.8 mg/dL (7.8-10.44); Carbon Dioxide 16 mmol/L (22-29); Chloride 106 mmol/L (98-107); Estimated GFR-MDRD 45; Glucose 185 mg/dL (70-105); Potassium 3.3 mmol/L (3.5-5.1); Sodium 130 mmol/L (136-145)
--- NOTE | 2018-11-19 06:03 | PDOC.FM ---
- Subjective Subjective: Patient denies any N/V, abdominal pain, or fever/chills this AM. Reports having had no bloody BMs since early yesterday evening. Is refusing to sign consent for EGD. States she thinks she no longer needs it since her Hgb is up to 8 this AM. - Objective MAR Reviewed: Yes Vital Signs & Weight: Vital Signs (12 hours) Temp Pulse Resp BP Pulse Ox 11/18/18 20:00 100 11/18/18 19:39 98.2 F 103 H 18 104/59 L 100 Weight Admit Weight 86.183 kg Weight 86.183 kg I&O: 11/17/18 11/18/18 11/19/18 06:59 06:59 06:59 Intake Total 465 1999 Balance 465 1999 Result Diagrams: 11/19/18 04:03 11/19/18 04:03 Phys Exam - Physical Examination Constitutional: NAD HEENT: moist MMs, sclera anicteric Neck: supple, full ROM Respiratory: no wheezing, no rales, no rhonchi, clear to auscultation bilateral Cardiovascular: RRR, no significant murmur Gastrointestinal: non-tender, positive bowel sounds moderate distension Musculoskeletal: pulses present, edema present Neurological: non-focal, moves all 4 limbs Psychiatric: normal affect, A&O x 3 Skin: no rash, normal turgor Dx/Plan (1) Spontaneous bacterial peritonitis Code(s): K65.2 - SPONTANEOUS BACTERIAL PERITONITIS Status: Acute (2) Anemia Code(s): D64.9 - ANEMIA, UNSPECIFIED Status: Acute (3) Asthma Code(s): J45.909 - UNSPECIFIED ASTHMA, UNCOMPLICATED Status: Chronic (4) CKD (chronic kidney disease) stage 3, GFR 30-59 ml/min Code(s): N18.3 - CHRONIC KIDNEY DISEASE, STAGE 3 (MODERATE) Status: Chronic (5) Depression Code(s): F32.9 - MAJOR DEPRESSIVE DISORDER, SINGLE EPISODE, UNSPECIFIED Status : Chronic (6) GERD (gastroesophageal reflux disease) Code(s): K21.9 - GASTRO-ESOPHAGEAL REFLUX DISEASE WITHOUT ESOPHAGITIS Status: Chronic (7) History of tobacco abuse Code(s): Z87.891 - PERSONAL HISTORY OF NICOTINE DEPENDENCE Status: Chronic (8) Hyponatremia Code(s): E87.1 - HYPO-OSMOLALITY AND HYPONATREMIA Status: Chronic (9) S/P TIPS (transjugular intrahepatic portosystemic shunt) Status: Chronic (10) Diarrhea Code(s): R19.7 - DIARRHEA, UNSPECIFIED Status: Acute Qualifiers: Diarrhea type: unspecified type Qualified Code(s): R19.7 - Diarrhea, unspecified (11) Cirrhosis of liver with ascites Code(s): K74.60 - UNSPECIFIED CIRRHOSIS OF LIVER Status: Chronic (12) HTN (hypertension) Code(s): I10 - ESSENTIAL (PRIMARY) HYPERTENSION Status: Chronic - Plan Plan: Acute on chronic Anemia - Hgb dropped to 5.9 yesterday and patient had several bloody BMs. Is now s/p 2U of PRBCs & Hgb @ ~20:00 last night and this AM were stable around 8.0. - Pt has hx of gastric antral vascular ectasia (GAVE) per GI from most recent EGD done last week & is likely bleeding from this. - Patient to undergo repeat EGD today per GI; however, patient is refusing to sign her consent form. Will touch base with GI this AM to confirm procedure. Will keep patient NPO w/ meds w/ sips for the time being. - Will continue PPI and ferrous sulfate QD. - Will continue to closely monitor vitals & H/H w/ QD CBCs. Suspected SBP - Patient had a recent paracentesis outpatient that grew Klebsiella but fluid had only 20 WBCs per GI. However, unlikely to be a contaminant so will continue abx with Rocephin per GI's recs. Appreciate recommendations. - Blood & urine cxs pending. NTD so far. Pancytopenia - Aware. Within patient's baseline range per chart review this AM with exception of platelets in the 50s. - SCDs for VTE PPx. - Will continue to monitor w/ QD CBCs. Hyponatremia - Aware. 2/2 cirrhosis - Na around baseline at 130 this AM and patient asymptomatic. Will continue to monitor w/ QD CMPs. Hypoalbuminemia - Will give another albumin infusion today per GI recs. Hypokalemia - K down to 3.3 this AM. Probably related to bloody diarrhea stools. - Will replace with 40mEq PO and continue to monitor w/ QD labs. Elevated BG levels w/o Diagnosis of DM - BG levels have ranged from 160s-180s since admission. - Will start on SSI and get ACHS accuchecks. Will consider an A1c since last one done in clinic was ~2 years ago per chart review. CKD stage III - GFR 45 this AM within patient's baseline and Cr also slightly improved this AM at 1.26. - Will continue to monitor. Cirrhosis 2/2 NAFLD s/p TIPS procedure -Follows with Dr. Schmid. 7L removed on 11/17 via paracentesis. -On lactulose Gastric antral vascular extasia - Aware, seen on most recent EGD done last week per GI. Likely source of acute bleeding. - Will continue PPI. Spinal Stenosis - Aware, will continue tramadol for pain control. GERD -continue PPI Asthma - Will continue home meds. Depression - Will continue home meds. Dispo: inpatient medical Dvt ppx: SCDs Diet: Regular GI ppx: NPO, meds with sips PCP: Ab Code: full Addendum - Attending - Attending Attestation Date/Time: 11/19/18 0363 I personally evaluated the patient and discussed the management with Dr. Paula I agree with the History, Examination, Assessment and Plan documented above with any addition or exceptions noted below. Acute blood loss anemia from presumed gastric antrum vascular ectasia- patient was recommended to go for EGD today but patient refusing. Appreciate GI recs Klebsiella SBP- on ROcephin. COntinue and transition to po once stable by GI Cirrhosis secondary to NAFLD- d/c IVF. albumin per GI
[2018-11-19] MEDS ORDERED: HumaLOG 300 UNITS/3 ML VIAL SC PRN (07:57)
[2018-11-19] MEDS ORDERED: Dextrose 50% Abboject 50 ML SYRINGE SLOW IVP PRN (07:57)
[2018-11-19] MEDS ORDERED: Dextrose 5% in Water 1,000 ML IV PRN (07:57)
[2018-11-19] MEDS: Potassium Chloride 20 MEQ TAB PO SCH ×2 (08:16→09:38)
[2018-11-19] MEDS ORDERED: LACTULOSE PO SCH (09:00)
[2018-11-19] MEDS: Sodium Chloride 0.9% 1,000 ML IV SCH (09:30)
[2018-11-19] MEDS: Ferrous Sulfate 325 MG TAB PO SCH ×2 (09:31→16:30)
[2018-11-19] MEDS: busPIRone HCl 10 MG TAB PO SCH ×2 (09:31→20:32)
[2018-11-19] MEDS: traMADol HCl 50 MG TAB PO SCH ×4 (09:32→20:43)
[2018-11-19] MEDS: LACTULOSE PO SCH ×2 (09:33→20:42)
[2018-11-19 10:28] LABS: Hemoglobin A1c 4.2 % (4.0-6.0)
[2018-11-19 14:44] VITALS: BMI 31.4
[2018-11-19] MEDS: cefTRIAXone\\ROCEPHIN 2 GM in Sodium Chloride 0.9% 100 ML IVPB SCH (16:18)
[2018-11-19] MEDS: HumaLOG 300 UNITS/3 ML VIAL SC PRN (16:30)
[2018-11-19] MEDS ORDERED: Albumin 25% 25 GM/100 ML BOT IVPB SCH (16:49)
[2018-11-19] MEDS: Albumin 25% 25 GM/100 ML BOT IVPB SCH ×2 (17:33→22:06)
--- NOTE | 2018-11-19 17:33 | PRG ---
DATE OF SERVICE: 11/19/2018 SUBJECTIVE: Ms. Gonzalez feels better overall today. She is having no abdominal pain. She denies any overt bleeding with bowel movements today. She did not wish to follow through with endoscopy today. OBJECTIVE: VITAL SIGNS: Temperature 98.1, pulse 105, and blood pressure 100/56. GENERAL: She is in no acute distress. Alert and oriented x3. LUNGS: Clear to auscultation bilaterally. HEART: Tachycardic. S1 and S2. ABDOMEN: Soft, nontender. She does have mild abdominal distention secondary to ascites, but she is nontender. Bowel sounds are present. EXTREMITIES: 1+ pitting lower extremity edema. LABORATORY DATA: White blood cell count 4.1, hemoglobin 8.0, and platelets 55. Creatinine is down to 1.26. Bilirubin 1.2, AST 25, ALT 15, and alkaline phosphatase 86. IMPRESSION: 1. Spontaneous bacterial peritonitis. Her ascitic fluid grew Klebsiella, which would not be expected to be a contaminant and this certainly can be associated with spontaneous bacterial peritonitis. Her fluid cell count was not consistent with spontaneous bacterial peritonitis, however, I just think we have to complete treatment given the culture findings at this point. Ideally, she will complete a 5-day course of ceftriaxone as this will penetrate the fluid better than the oral antibiotics. 2. Decompensated cirrhosis. 3. Acute on chronic anemia. Endoscopy last week identified gastric antral vascular ectasia. She did have some dark stools and drop in her hemoglobin down to 5.8 yesterday. She received 2 units of transfusion, and her hemoglobin is improved to 8.0 today. I did offer upper endoscopy to plan to cauterize the gastric antral vascular ectasia; however, she declines endoscopy today. RECOMMENDATIONS: 1. Continue ceftriaxone. 2. Low-sodium diet. 3. Continue pantoprazole. 4. If her hemoglobin drops again, then again I would recommend followup endoscopy to cauterize the gastric antral vascular ectasia. 5. Ideally, she will complete a 5-day course of the ceftriaxone. She has been getting her dose around 4 p.m. She has had three doses so far including today's. Ideally, she can complete her antibiotics on Wednesday and discharge home on Wednesday. Job ID: [id number]
[2018-11-19] MEDS: Loratadine 10 MG TAB PO SCH (20:32)
[2018-11-20 04:25] LABS: #Basophils 0.1 thou/uL (0.0-0.2); #Eosinphils 0.2 thou/uL (0.0-0.7); #Lymphocytes 0.5 thou/uL (1.20-3.40); #Monocytes 0.4 thou/uL (0.11-0.59); #Neutrophils 2.5 thou/uL (1.40-6.50); %Basophils 1.5 % (0.0-1.0); %Eosinophils 6.7 % (0.0-10.0); %Lymphocytes 12.7 % (21.0-51.0); %Neutrophils 67.1 % (42.0-75.0); Hemoglobin 7.2 g/dL (12.0-16.0); Mean Corpuscular Hemoglobin 30.3 pg (27.0-31.0); Mean Corpuscular Volume 91.6 fL (78.0-98.0); Mean Platelet Volume 7.6 fL (7.4-10.4); Platelet Count 48 thou/uL (130-400); RBC Distribution Width 15.7 % (11.5-14.5); Red Blood Cell (RBC) Count 2.37 mill/uL (4.20-5.40); White Blood Cell (WBC) Count 3.7 thou/uL (4.8-10.8)
[2018-11-20 04:44] LABS: Anion Gap 12 mmol/L (10-20); BUN (Urea Nitrogen) 19 mg/dL (7.0-18.7); Calc. Creatinine Clearance 80 mL/min (70-130); Calcium 7.9 mg/dL (7.8-10.44); Carbon Dioxide 17 mmol/L (22-29); Chloride 107 mmol/L (98-107); Estimated GFR-MDRD 48; Glucose 172 mg/dL (70-105); Sodium 132 mmol/L (136-145)
--- NOTE | 2018-11-20 05:40 | PDOC.FM ---
- Subjective Subjective: Patient denies any bloody BMs since 11/18 but Hgb back down to 7.2 this AM. Denies any palpitations or orthostasis but does endorse fatigue. Main complaint this AM is right ear pain and headache 2/2 sinuses. - Objective MAR Reviewed: Yes Vital Signs & Weight: Vital Signs (12 hours) Temp Pulse Resp BP Pulse Ox 11/20/18 03:51 98.4 F 104 H 16 116/62 100 11/20/18 00:00 98.5 F 106 H 16 113/61 97 11/19/18 20:00 98.3 F 101 H 20 104/56 L 100 Weight Admit Weight 86.183 kg Weight 88.451 kg I&O: 11/18/18 11/19/18 11/20/18 06:59 06:59 06:59 Intake Total 465 1999 1640 Balance 465 1999 1640 Result Diagrams: 11/20/18 03:59 11/20/18 03:59 Phys Exam - Physical Examination Constitutional: NAD HEENT: moist MMs Neck: supple, full ROM Respiratory: no wheezing, no rales, no rhonchi, clear to auscultation bilateral Cardiovascular: no significant murmur tachycardic with regular rhythm Gastrointestinal: non-tender, positive bowel sounds moderate distension 2/2 ascites from cirrhosis Musculoskeletal: edema present (pitting edema up to ankles in both LEs.) Neurological: non-focal, moves all 4 limbs Psychiatric: normal affect, A&O x 3 Skin: no rash, normal turgor, cap refill <2 seconds Dx/Plan (1) Spontaneous bacterial peritonitis Code(s): K65.2 - SPONTANEOUS BACTERIAL PERITONITIS Status: Acute (2) Anemia Code(s): D64.9 - ANEMIA, UNSPECIFIED Status: Acute (3) Asthma Code(s): J45.909 - UNSPECIFIED ASTHMA, UNCOMPLICATED Status: Chronic (4) CKD (chronic kidney disease) stage 3, GFR 30-59 ml/min Code(s): N18.3 - CHRONIC KIDNEY DISEASE, STAGE 3 (MODERATE) Status: Chronic (5) Depression Code(s): F32.9 - MAJOR DEPRESSIVE DISORDER, SINGLE EPISODE, UNSPECIFIED Status : Chronic (6) GERD (gastroesophageal reflux disease) Code(s): K21.9 - GASTRO-ESOPHAGEAL REFLUX DISEASE WITHOUT ESOPHAGITIS Status: Chronic (7) History of tobacco abuse Code(s): Z87.891 - PERSONAL HISTORY OF NICOTINE DEPENDENCE Status: Chronic (8) Hyponatremia Code(s): E87.1 - HYPO-OSMOLALITY AND HYPONATREMIA Status: Chronic (9) S/P TIPS (transjugular intrahepatic portosystemic shunt) Status: Chronic (10) Diarrhea Code(s): R19.7 - DIARRHEA, UNSPECIFIED Status: Acute Qualifiers: Diarrhea type: unspecified type Qualified Code(s): R19.7 - Diarrhea, unspecified (11) Cirrhosis of liver with ascites Code(s): K74.60 - UNSPECIFIED CIRRHOSIS OF LIVER Status: Chronic (12) HTN (hypertension) Code(s): I10 - ESSENTIAL (PRIMARY) HYPERTENSION Status: Chronic - Plan Plan: Acute on chronic Anemia - Hgb dropped to 5.8 on 11/18 and patient had several bloody BMs. Is s/p 2U of PRBCs & Hgb went up to 8.0 yesterday AM so patient refused EGD. However, Hgb down to 7.2 this AM. - Pt has hx of gastric antral vascular ectasia (GAVE) per GI from most recent EGD done last week & is likely bleeding from this. - Will again recommend a repeat EGD per GI; otherwise patient will likely come right back to hospital upon d/c for anemia. - Will continue PPI and ferrous sulfate QD. - Will continue to closely monitor vitals & H/H w/ QD CBCs. Suspected SBP - Patient had a recent outpatient paracentesis that grew Klebsiella but fluid had only 20 WBCs per GI. - Will continue IV Rocephin to complete a 5 day course per GI. - Blood & urine cxs negative. Pancytopenia - Aware. Within patient's baseline range per chart review this AM with exception of platelets. Now down to 48 this AM. - SCDs for VTE PPx. - Will continue to monitor w/ QD CBCs. Hyponatremia - Aware. 2/2 cirrhosis - Na around baseline at 132 this AM and patient asymptomatic. Will continue to monitor w/ QD CMPs. Hypoalbuminemia - Aware, 2/2 cirrhosis. s/p albumin infusions x2. Repeat pending for this AM. Elevated BG levels w/o Diagnosis of DM - BG levels have ranged from 160s-180s since admission. A1c only 4.2 but likely skewed 2/2 severe NADIA. Will continue ACHS accuchecks and mild SSI & recommend that patient have a follow-up A1c once acute anemia has been corrected. CKD stage III - GFR 48 this AM within patient's baseline and Cr also slightly improved this AM at 1.18. - Will continue to monitor. Cirrhosis 2/2 NAFLD s/p TIPS procedure -Follows with Dr. Schmid. 7L removed on 11/17 via paracentesis. -On lactulose Gastric antral vascular extasia - Aware, seen on most recent EGD done last week per GI. Likely source of acute bleeding. - Will continue PPI. Spinal Stenosis - Aware, will continue tramadol for pain control. GERD -continue PPI Asthma - Will continue home meds. Depression - Will continue home meds. Hypokalemia, resolved - K WNLs at 4.0 this AM. Will continue to monitor. Dispo: inpatient medical Dvt ppx: SCDs Diet: low Na, CC GI ppx: SCDs Abx: Rocephin (11/17) IVFs: none PCP: Ab Code: full Addendum - Attending - Attending Attestation Date/Time: 11/20/18 0997 I personally evaluated the patient and discussed the management with Dr. Paula. I agree with the History, Examination, Assessment and Plan documented above with any addition or exceptions noted below. Patient re-considering EGD. Appreciate Dr. Sommers's recs. Will continue IV rocephin for total of 5 days.
[2018-11-20] MEDS: HumaLOG 300 UNITS/3 ML VIAL SC PRN (06:23)
[2018-11-20] MEDS: Ferrous Sulfate 325 MG TAB PO SCH ×2 (08:47→17:06)
[2018-11-20] MEDS: traMADol HCl 50 MG TAB PO SCH ×4 (08:47→20:59)
[2018-11-20] MEDS: busPIRone HCl 10 MG TAB PO SCH ×2 (08:47→20:59)
[2018-11-20] MEDS: LACTULOSE PO SCH ×2 (08:49→21:02)
[2018-11-20] MEDS: cefTRIAXone\\ROCEPHIN 2 GM in Sodium Chloride 0.9% 100 ML IVPB SCH (16:00)
--- NOTE | 2018-11-20 17:44 | PRG ---
DATE OF SERVICE: 11/20/2018 SUBJECTIVE: Ms. Gonzalez had one small bowel movement last night. She reports maybe had a little bit of red blood in it. She has no abdominal pain. OBJECTIVE: VITAL SIGNS: Temperature is 98.1, pulse 101, and blood pressure 115/64. GENERAL: She is in no acute distress. Alert and oriented x3. LUNGS: Clear to auscultation bilaterally. HEART: Regular rate and rhythm. ABDOMEN: Soft. She is distended with ascites. Bowel sounds are present. EXTREMITIES: 1+ pitting lower extremity edema. Her weight is shown to increase from 185 to 208 pounds, but I am unclear if this is entirely accurate. We are going to reweigh her on a regular scale. IMPRESSION: 1. Spontaneous bacterial peritonitis by culture with Klebsiella. This is her fourth day of ceftriaxone. She should complete the antibiotics tomorrow after her last dose of ceftriaxone. 2. Anemia. She does not have overt bleeding, however, it is suspected that she has oozing from her gastric antral vascular ectasias. She did not want to do endoscopy yesterday, but now she is willing, and we will plan on setting her up for an esophagogastroduodenoscopy for tomorrow and to potentially cauterize vascular ectasias. 3. Ascites. Her weight is increasing. Her abdominal distention is increasing somewhat. She could end up requiring repeat paracentesis soon. RECOMMENDATIONS: 1. We will plan for an EGD tomorrow. 2. Continue ceftriaxone to complete a total of five doses. The fifth dose should be given tomorrow around 4 p.m. Job ID: [id number]
[2018-11-20] MEDS: Loratadine 10 MG TAB PO SCH (20:59)
[2018-11-21 04:04] LABS: #Eosinphils 0.4 thou/uL (0.0-0.7); #Lymphocytes 0.6 thou/uL (1.20-3.40); #Monocytes 0.5 thou/uL (0.11-0.59); #Neutrophils 2.2 thou/uL (1.40-6.50); %Basophils 1.3 % (0.0-1.0); %Eosinophils 9.7 % (0.0-10.0); %Lymphocytes 15.8 % (21.0-51.0); %Monocytes 13.4 % (0.0-10.0); %Neutrophils 59.9 % (42.0-75.0); Hemoglobin 6.8 g/dL (12.0-16.0); Mean Corpuscular HGB CONC 32.7 g/dL (32.0-36.0); Mean Corpuscular Hemoglobin 30.2 pg (27.0-31.0); Mean Corpuscular Volume 92.5 fL (78.0-98.0); Mean Platelet Volume 7.6 fL (7.4-10.4); Platelet Count 65 thou/uL (130-400); RBC Distribution Width 15.8 % (11.5-14.5); Red Blood Cell (RBC) Count 2.25 mill/uL (4.20-5.40); White Blood Cell (WBC) Count 3.6 thou/uL (4.8-10.8)
[2018-11-21 04:21] LABS: Anion Gap 5 mmol/L (10-20); BUN (Urea Nitrogen) 22 mg/dL (7.0-18.7); Calc. Creatinine Clearance 86 mL/min (70-130); Carbon Dioxide 22 mmol/L (22-29); Chloride 109 mmol/L (98-107); Estimated GFR-MDRD 50; Glucose 133 mg/dL (70-105); Potassium 3.8 mmol/L (3.5-5.1); Sodium 132 mmol/L (136-145)
--- NOTE | 2018-11-21 05:46 | PDOC.FM ---
- Subjective Subjective: Pt states she did fair overnight. She denies chest pain, SOB, or bloody stools. She states that she is having more pressure in her abdomen. - Objective MAR Reviewed: Yes Vital Signs & Weight: Vital Signs (12 hours) Temp Pulse Resp BP Pulse Ox 11/20/18 20:50 100 11/20/18 20:00 98.1 F 100 20 118/68 100 Weight Admit Weight 86.183 kg Weight 92.53 kg I&O: 11/19/18 11/20/18 11/21/18 06:59 06:59 06:59 Intake Total 1999 1640 575 Balance 1999 1640 575 Result Diagrams: 11/21/18 03:55 11/21/18 03:55 Phys Exam - Physical Examination Constitutional: NAD HEENT: moist MMs Neck: full ROM Respiratory: no wheezing crackles at lung bases Cardiovascular: RRR, no significant murmur Mild tenderness, fluid wave present, moderate distention mild edema Neurological: moves all 4 limbs Psychiatric: A&O x 3 Skin: cap refill <2 seconds Dx/Plan (1) Anemia Code(s): D64.9 - ANEMIA, UNSPECIFIED Status: Acute (2) Spontaneous bacterial peritonitis Code(s): K65.2 - SPONTANEOUS BACTERIAL PERITONITIS Status: Acute (3) Asthma Code(s): J45.909 - UNSPECIFIED ASTHMA, UNCOMPLICATED Status: Chronic (4) CKD (chronic kidney disease) stage 3, GFR 30-59 ml/min Code(s): N18.3 - CHRONIC KIDNEY DISEASE, STAGE 3 (MODERATE) Status: Chronic (5) Esophageal varices Code(s): I85.00 - ESOPHAGEAL VARICES WITHOUT BLEEDING Status: Chronic (6) GERD (gastroesophageal reflux disease) Code(s): K21.9 - GASTRO-ESOPHAGEAL REFLUX DISEASE WITHOUT ESOPHAGITIS Status: Chronic (7) Hyponatremia Code(s): E87.1 - HYPO-OSMOLALITY AND HYPONATREMIA Status: Chronic (8) S/P TIPS (transjugular intrahepatic portosystemic shunt) Status: Chronic (9) Cirrhosis of liver with ascites Code(s): K74.60 - UNSPECIFIED CIRRHOSIS OF LIVER Status: Chronic (10) DM type 2 (diabetes mellitus, type 2) Status: Chronic - Plan Plan: This is a 52 yo female with a PMH of Chronic anemia, CKD stage 3, cirrhosis 2/2 NAFLD s/p TIPS, GERD, Asthma, depression Acute on chronic anemia -Pt s/p 2U PRBCs, AM Hgb is 6.8 -Pt will require transfusion today -Pt has hx of gastric antral vascular ectasia per GI and will go for an EGD this morning for assessment -Continue PPI and ferous sulfate -Continue monitoring VS and H&H Suspected SBP -Pt had outpt paracentesis positive culture for Klebsiella -Pt will receive last dose of rocephin today per GI -Blood/Urine cultures negative Pancytomenia -Aware -Continue to monitor with daily CBCs Hyponatremia likely 2/2 cirrhosis -Na stable at 132, continue to monitor Hypoalbuminemia 2/2 cirrhosis -s/p albumin infusion x2 Elevated BG levels, likely 2/2 DM -ACHS accuchecks and mild SSI -Pt will need outpt treatment CKD stage 3 -Pt at baseline with improving Cr 1.14 Cirrhosis 2/2 NAFLD s/p TIPS Spinal stenosis -Continue tramadol GERD -Continue PPI Asthma -Continue home meds Hypokalemia, resolved Addendum - Attending - Attending Attestation Date/Time: 11/22/18 4187 I personally evaluated the patient and discussed the management with Dr. Rooney I agree with the History, Examination, Assessment and Plan documented above with any addition or exceptions noted below. Patient for EGD today, day # 5 IV rocephin for Klebsiella SBP overall improved continue expectant management. Patient for dismissal when hemodynamically stable tranfuse 1 unit PRBC today.
[2018-11-21] MEDS ORDERED: Lidocaine Viscous Sol 2% 15 ml UD Cup ONE (09:04)
[2018-11-21] MEDS: traMADol HCl 50 MG TAB PO SCH ×3 (10:01→16:23)
[2018-11-21] MEDS ORDERED: Promethazine HCl 25 MG/ML VIAL SLOW IVP PRN (10:01)
[2018-11-21] MEDS ORDERED: Promethazine HCl 25 MG/ML VIAL IM PRN (10:01)
[2018-11-21] MEDS: busPIRone HCl 10 MG TAB PO SCH (10:01)
[2018-11-21] MEDS ORDERED: Ondansetron HCl/PF 4 MG/2 ML Vial IVP PRN (10:01)
[2018-11-21] MEDS: LACTULOSE PO SCH (10:01)
--- NOTE | 2018-11-21 10:47 | OP ---
DATE OF PROCEDURE: 11/21/2018 PROCEDURE PERFORMED: Esophagogastroduodenoscopy with control of hemorrhage with extensive cautery of gastric antral vascular ectasia. PREOPERATIVE DIAGNOSES: Gastrointestinal bleed and anemia of acute and chronic blood loss. DESCRIPTION OF PROCEDURE: Informed consent was obtained from the patient. She was sedated with total intravenous anesthesia. The bite block was placed, and the endoscope was advanced easily to the second portion of the duodenum, and retroflexion was performed in the stomach. The esophagus was normal. The stomach had severe portal hypertensive gastropathy. The antrum of the stomach had extensive gastric antral vascular ectasia with patchy active oozing of red blood. The pylorus and first and second portions of the duodenum were unremarkable. There were some patchy red areas in the first portion of the duodenum as well. The gastric antral vascular ectasia was cauterized in large patches with argon plasma coagulation. Good hemostasis was confirmed in these areas, however, I would expect it will take multiple sessions to actually achieve adequate cautery effect to reduce the anemia. IMPRESSION: 1. Extensive gastric antral vascular ectasias with patchy active oozing of blood with large areas cauterized with argon plasma coagulation. It is anticipated that this will take multiple sessions of argon plasma coagulation to actually treat this to an extent that it will be adequate to reduce her anemia. 2. Severe portal hypertensive gastropathy. RECOMMENDATIONS: 1. Transfuse 2 units of red blood cells today. 2. Paracentesis today. 3. Recheck hemoglobin tomorrow morning. Job ID: [id number] MTDD
[2018-11-21 15:43] VITALS: TEMP 97.9
[2018-11-21] MEDS: cefTRIAXone\\ROCEPHIN 2 GM in Sodium Chloride 0.9% 100 ML IVPB SCH (16:20)
[2018-11-21] MEDS: Ferrous Sulfate 325 MG TAB PO SCH (16:23)
[2018-11-21 16:52] VITALS: BP 108/65
[2018-11-21] MEDS ORDERED: PHENYLEPHRINE-NS 100 MCG/ML 10 ML SYRINGE ONE (17:01)
[2018-11-21] MEDS ORDERED: Lidocaine 1% PF 5 ML VIAL ONE (17:01)
[2018-11-21] MEDS ORDERED: PROPOFOL 200 MG/20 ML VIAL ONE (17:01)
[2018-11-21 17:04] LABS: BF RBC Count - Manual 136 /cumm; BF WBC/Nonhematics Ct. - Manua 35 /cumm; Body Fluid Source Ascites Body Fluid; Clarity Hazy (Clear); Tube # EDTA
[2018-11-21 17:33] LABS: BF Segmented Neutrophils 5 %; Cell Count Non Hematic 70 %; Eosinophils 2 %; Lymphocytes 23 %
--- NOTE | 2018-11-22 00:31 | DIS ---
DATE OF ADMISSION: 11/17/2018 DATE OF DISCHARGE: 11/21/2018 ADMITTING ATTENDING: Rustam Milner MD. DISCHARGING ATTENDING: Blaine Yancey MD. RESIDENT: Jean Rooney DO. CONSULTS: GI, Dr. Issa Cota. PROCEDURES: 1. Abdominal ultrasound showing cirrhosis and portal hypertension, the patient TIPS shunt and mild ascites. 2. EGD with antral AV malformation ablation. 3. Paracentesis. PRIMARY DIAGNOSES: 1. Concern for spontaneous bacterial peritonitis, cirrhosis secondary to liver disease. 2. Hyponatremia. SECONDARY DIAGNOSES: 1. Chronic kidney disease stage 3. 2. Esophageal varices. 3. Anemia. 4. Hypoalbuminemia. 5. Spinal stenosis. 6. Gastroesophageal reflux disease. 7. Asthma. 8. Depression. DISCHARGE MEDICATIONS: 1. Albuterol inhaler 2 puffs q.4 hours p.r.n. shortness of breath. 2. Risperidone 10 mg p.o. b.i.d. 3. Nexium 40 mg p.o. b.i.d. 4. Iron 28 mg p.o. b.i.d. 5. Lactulose 1 packet p.o. b.i.d. 6. Claritin 10 mg p.o. at bedtime. 7. Nasonex 2 sprays per naris daily. 8. Tramadol 50 mg p.o. q.i.d. DISCONTINUED MEDICATIONS: None. BRIEF HOSPITAL COURSE/HISTORY OF PRESENT ILLNESS: This is a 52-year-old female, past medical history of cirrhosis, status post TIPS, presenting with concern for spontaneous bacterial peritonitis. Ascites fluid growing Klebsiella following a paracentesis on 11/16. At that time, she denied any headaches, fevers, chills, abdominal pain, however, was admitted due to the concern. The patient was also found to be anemic with initial hemoglobin of 5.8 and received 2 units packed red blood cells, this improved to 8, but slowly trended down to 7.2, and ultimately to 6.8 on the day of discharge. She received 2 units of packed red blood cells on the day of discharge. In addition, she underwent EGD as stated above as well as the paracentesis as stated above. Stay was continued to be the last day of IV antibiotics. However, there was a failure to provide antibiotics on the previous day. The patient will require an additional day of IV antibiotics the patient reports that she needs to take care of her mother and take her mother to the eye surgery tomorrow. Nobody was available to do this. I discussed with the patient the risks of leaving AMA today including infection, worsening GI bleeding, and . The patient accepted these risks and signed out AMA. Prior to patient's AMA, I discussed case with Dr. Cota as well as the patient's nurse and we were all in agreement to keep the patient here at a minimum of another night for observation and continued treatment of her current condition. DISPOSITION: Guarded. DISCHARGE INSTRUCTIONS: 1. Location: Home. 2. Activity: As tolerated. 3. Diet: Renal. 4. Followup: Follow up with Dr. Schmid as instructed and with Dr. Jenkins in 3 to 5 days. The patient will likely return to hospital in the days to come secondary to her current health condition. Job ID: [id number]
--- NOTE | 2018-11-22 09:44 | ULT ---
ULTRASOUND GUIDED PARACENTESIS: Date: 11/21/18 HISTORY: Symptomatic ascites, spontaneous bacterial peritonitis. FINDINGS: Informed consent obtained prior to the procedure. Preprocedural imaging demonstrates significant asci tia throughout the abdomen/pelvis. Left lower quadrant prepped and draped in the normal sterile fashi on and anesthetized with 1% buffered lidocaine. With direct sonographic guidance, a 5 [place] cat heter was advanced into the ascites and removal of stylette yields yellow, relatively clear fluid. 7 liters were removed. The patient tolerated the procedure well. A sample of the fluid was sent to the laboratory for assessment. IMPRESSION: Successful ultrasound guided paracentesis as detailed above. POS: RUSLAN
== END 2018-11-21 18:07 | disposition left against medical advice (07) | DRG 871 ==
LOC: ONC 14:25
PROVIDERS: ADMIT Family Medicine; ATTEND Family Medicine
PROC: 30233N1 Transfusion of Nonautologous Red Blood Cells into Peripheral Vein, Percutaneous Approach (ICD-10-PCS; 2018-11-18)
PROC: 0W3P8ZZ Control Bleeding in Gastrointestinal Tract, Via Natural or Artificial Opening Endoscopic (ICD-10-PCS; principal; 2018-11-21)
PROC: 0W9G3ZZ Drainage of Peritoneal Cavity, Percutaneous Approach (ICD-10-PCS; 2018-11-21)
DX: A41.9 Sepsis, unspecified organism (principal); K65.2 Spontaneous bacterial peritonitis; K31.811 Angiodysplasia of stomach and duodenum with bleeding; I85.00 Esophageal varices without bleeding; E87.1 Hypo-osmolality and hyponatremia; D61.818 Other pancytopenia; K76.6 Portal hypertension; J45.909 Unspecified asthma, uncomplicated; I12.9 Hypertensive chronic kidney disease with stage 1 through stage 4 chronic kidney disease, or unspecified chronic kidney disease; E11.22 Type 2 diabetes mellitus with diabetic chronic kidney disease; N18.3 Chronic kidney disease, stage 3 (moderate); Z79.4 Long term (current) use of insulin; K21.9 Gastro-esophageal reflux disease without esophagitis; F32.9 Major depressive disorder, single episode, unspecified; D63.1 Anemia in chronic kidney disease; E88.09 Other disorders of plasma-protein metabolism, not elsewhere classified; M48.00 Spinal stenosis, site unspecified; K76.0 Fatty (change of) liver, not elsewhere classified; E87.6 Hypokalemia; Z87.891 Personal history of nicotine dependence; R19.7 Diarrhea, unspecified; K31.819 Angiodysplasia of stomach and duodenum without bleeding; B96.1 Klebsiella pneumoniae [K. pneumoniae] as the cause of diseases classified elsewhere; K70.31 Alcoholic cirrhosis of liver with ascites; F41.9 Anxiety disorder, unspecified; K31.89 Other diseases of stomach and duodenum; K72.90 Hepatic failure, unspecified without coma; D50.9 Iron deficiency anemia, unspecified
CPT/HCPCS: 36415; 36416; 36430; 49083; 76705; 80048; 80053; 80076; 82040; 83036; 83735; 85025; 85060; 85610; 86850; 86900; 86901; 87040; 87070; 87086; 87205; 89051; J0696; J1956; J2001; J2704; J7050; P9016; P9047; Q0162; Q0169

== ENCOUNTER 2018-11-29 09:32 | Day surgery (SDC) | payer OTHER ==
[2018-11-29 12:10] VITALS: BMI 27.3
[2018-11-29] MEDS ORDERED: PROPOFOL 200 MG/20 ML VIAL ONE (14:44)
[2018-11-29] MEDS ORDERED: Lidocaine 1% PF 5 ML VIAL ONE (14:44)
--- NOTE | 2018-11-29 21:39 | OP ---
DATE OF PROCEDURE: 11/29/2018 PROCEDURE PERFORMED: Esophagogastroduodenoscopy with argon plasma coagulation treatment for bleeding gastric antral vascular ectasias. PREPROCEDURE DIAGNOSES: 1. Recent need for transfusion over the past 2 weeks with intermittent melena. 2. Esophagogastroduodenoscopy performed on weekend of November 22November 23 with severe gastric antral vascular ectasias treated with argon plasma coagulation. 3. Worsening ascites. 4. Ultrasound showed TIPS with good flow. However, I suspect there must be dysfunction with the worsening portal gastropathy and portal hypertension. Imaging showed no malignancy. She did have a screening for hepatoma with imaging in [place] within the past six months. She has only had ultrasounds. 5. Beta-blockers have been held secondary to hyponatremia and spontaneous bacterial peritonitis with studies indicating worse outcomes for individuals with these two findings, we treated with beta blockers. POSTPROCEDURE DIAGNOSES: 1. 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 Argon plasma coagulation was used to coagulate most remaining antral ectasias and some of the ones on the body that were larger and one in the proximal body that was oozing. 2. No signs of esophageal varices or gastric varices. 3. Normal duodenum. RECOMMENDATIONS: 1. Continue present medications. Nexium daily. 2. Follow up in my office on 12/19 with preclinic H and H. 3. The patient has followup in [facility] with Dr. Dolores Madison. PROCEDURE IN DETAIL: The patient was informed risks, benefits, and possible complications of endoscopy including perforation, reaction for medication, and aspiration. Informed consent was obtained. The patient was brought to the endoscopy suite, where she was sedated by anesthesia. Once she was comfortable, a bite block was placed inside her orifice. The endoscope was advanced to the esophagus, stomach, and second and third portion of the duodenum. The esophagus is normal with no evidence of varices. Entering the stomach, there was a little bit of area with fresh bleeding in the proximal stomach, but not pulsatile, not accumulating very much. The stomach was distended carefully without causing trauma. There was a little bit of oozing in the antrum of the stomach again without any overt evidence of active hemorrhage. There were few small erosions in the antrum consistent with previous areas probably of argon plasma coagulation. The duodenum was entered and found to be normal with no blood. Retroflexed views revealed no evidence of gastric varices, but there was portal gastropathy, which would ooze with mechanical manipulation. Decision was made to retreat the stomach with argon plasma coagulation done in the right colon stump/stomach settings. This was done throughout the antrum before and after pictures were taken. Some of these areas oozing more proximal, these were ablated as well. Once we were finished the scope, the stomach was desufflated. The scope was removed. The patient tolerated the procedure well. No complications. Job ID: [id number]
== END 2018-11-29 15:05 | disposition home or self-care (01) ==
LOC: SDC 09:32
PROVIDERS: ATTEND Internal Medicine Gastroenterology
PROC: 0W3P8ZZ Control Bleeding in Gastrointestinal Tract, Via Natural or Artificial Opening Endoscopic (ICD-10-PCS; principal; 2018-11-29)
DX: K31.811 Angiodysplasia of stomach and duodenum with bleeding (principal); K25.9 Gastric ulcer, unspecified as acute or chronic, without hemorrhage or perforation; K31.9 Disease of stomach and duodenum, unspecified; F41.9 Anxiety disorder, unspecified; K74.60 Unspecified cirrhosis of liver; R18.8 Other ascites; Z87.891 Personal history of nicotine dependence; Z79.899 Other long term (current) drug therapy; Z88.0 Allergy status to penicillin; Z88.2 Allergy status to sulfonamides; Z88.5 Allergy status to narcotic agent; Z91.018 Allergy to other foods; Z91.048 Other nonmedicinal substance allergy status; Z98.890 Other specified postprocedural states
CPT/HCPCS: 36415; 85014; 85018; J2001; J2704

== ENCOUNTER 2018-11-30 08:35 | Day surgery (SDC) | payer OTHER ==
[2018-11-30] MEDS ORDERED: Albumin 25% 200 ML ONE (09:34)
[2018-11-30] MEDS ORDERED: Sodium Bicarbonate 2.5 MEQ/5 ML VIAL ONE (09:34)
--- NOTE | 2018-11-30 10:57 | ULT ---
FExam: Ultrasound guided paracentesis HISTORY: Ascites COMPARISON: 11/21/2018 FINDINGS: Successful ultrasound-guided paracentesis. Total of 4 L of slightly cloudy yellow fluid ofa scites was aspirated. TECHNIQUE: Consent obtained reformatory ultrasound-guided paracentesis. Right lower quadrant was deem ed appropriate. Skin was prepped and draped in a sterile fashion. 1% lidocaine, buffered with sodium bicarbonate was used for local anesthesia. Under ultrasound guidance, a 5 [place] 7 cm Yueh catheter i s advanced in the peritoneal space. A total of 4 L of slightly cloudy yellow ascites was aspirated. N o immediate or postprocedural complications IMPRESSION: Successful ultrasound-guided paracentesis.
[2018-11-30 11:34] VITALS: BMI 27.3
[2018-11-30 11:35] VITALS: BP 104/72; TEMP 98.1
[2018-11-30 14:39] LABS: BF Color Colorless; BF RBC Count - Manual 100 /cumm; BF WBC/Nonhematics Ct. - Manua 13 /cumm; Body Fluid Source Ascites Body Fluid; Clarity Clear (Clear); Tube # EDTA
[2018-11-30 14:55] LABS: BF Segmented Neutrophils 3 %; Cell Count Non Hematic 93 %; Lymphocytes 4 %
== END 2018-11-30 11:05 | disposition home or self-care (01) ==
LOC: ULT 08:35
PROVIDERS: ATTEND Internal Medicine Gastroenterology
PROC: 0W9G3ZX Drainage of Peritoneal Cavity, Percutaneous Approach, Diagnostic (ICD-10-PCS; principal; 2018-11-30)
DX: K74.60 Unspecified cirrhosis of liver (principal); R18.8 Other ascites; K72.90 Hepatic failure, unspecified without coma; I12.9 Hypertensive chronic kidney disease with stage 1 through stage 4 chronic kidney disease, or unspecified chronic kidney disease; E11.22 Type 2 diabetes mellitus with diabetic chronic kidney disease; N18.3 Chronic kidney disease, stage 3 (moderate); M19.90 Unspecified osteoarthritis, unspecified site; K21.9 Gastro-esophageal reflux disease without esophagitis; J44.9 Chronic obstructive pulmonary disease, unspecified; Z87.891 Personal history of nicotine dependence; Z79.899 Other long term (current) drug therapy; Z88.0 Allergy status to penicillin; Z88.2 Allergy status to sulfonamides; Z88.5 Allergy status to narcotic agent; Z91.018 Allergy to other foods; Z91.048 Other nonmedicinal substance allergy status
CPT/HCPCS: 49083; 85060; 87070; 87205; 89051; P9047

== ENCOUNTER 2018-12-14 08:14 | Day surgery (SDC) | payer OTHER ==
[2018-12-13 14:46] VITALS: BMI 27.3
[2018-12-14] MEDS ORDERED: Sodium Bicarbonate 2.5 MEQ/5 ML VIAL ONE (09:01)
[2018-12-14] MEDS ORDERED: Albumin 25% 200 ML ONE (09:01)
[2018-12-14 10:22] VITALS: BP 102/64; TEMP 98.2
--- NOTE | 2018-12-14 11:14 | ULT ---
EXAM: US Hepatic Doppler PROVIDED CLINICAL HISTORY: Patient with history of cirrhosis and ascites. Patient is post TIPS procedure. COMPARISON: 11/18/2018 FINDINGS: The liver is small in size and heterogeneous with multilobulated contour suggesting cirrhosis. No foc al hepatic mass is visualized. Previously seen intrahepatic portosystemic shunt is again noted. The spleen remains an enlarged and measures 17.6 cm in craniocaudal dimensions. The gallbladder remains surgically absent. The common duct is normal in caliber and measures 0.5 cm i n diameter. There is mild prominence of central intrahepatic bile ducts which could be related to reservoir effect from cholecystectomy. The IVC is not well imaged on this exam. The pancreas is mostly obscured by bowel gas. Small amount of ascites is present within the upper abdomen. Patient is recently post paracentesis. Doppler evaluation with color flow and spectral analysis of the right upper quadrant hepatic vasculat ure is performed. Arterial Doppler evaluation demonstrates arterial flow within the hepatic and splenic arteries. Normal directional flow is demonstrated in the intrahepatic portosystemic shunt. Ve locity measurements throughout the portosystemic shunt were not performed. Hepatopetal flow is also seen within the main portal vein with normal directional flow seen within the hepatic veins. Normal d irectional flow is present in the splenic vein. IMPRESSION: 1. Evidence of cirrhosis and splenomegaly with portal hypertension. 2. The visualized portosystemic shunt does appear patent with hepatopetal flow present. 3. Small amount of ascites. 4. Hepatic ultrasound with hepatic Doppler evaluation is not significantly changed compared to study of 11/18/2018.
[2018-12-14 11:35] LABS: BF Color Yellow; BF RBC Count - Manual 114 /cumm; BF WBC/Nonhematics Ct. - Manua 33 /cumm; Body Fluid Source Peritoneal Fluid; Clarity Hazy (Clear); Tube # EDTA
--- NOTE | 2018-12-14 11:36 | ULT ---
Sonographic guided paracentesis HISTORY: Recurrent ascites. FINDINGS: After explaining the procedure internal questions, sonographic survey shows large amount fr ee fluid throughout the abdomen. Sterile technique, buffered local anesthesia, sonographic guidance, and an anterior right lower quadrant approach were used to carefully advance a 19-gauge Yakelin h needle and catheter into the free fluid. Catheter was left to drain a total volume of 4.0 L slightly, probably right yellow liquid. Clinical request was to limit drainage to 4 L. Catheter was removed. Large amount of fluid remaining. Patient tolerated the procedure well and was d ismissed in good condition. IMPRESSION: Technically successful sonographic guided paracentesis.
[2018-12-14 12:14] LABS: BF Segmented Neutrophils 2 %; Cell Count Non Hematic 70 %; Eosinophils 1 %; Lymphocytes 27 %
== END 2018-12-14 10:35 | disposition home or self-care (01) ==
LOC: ULT 08:14
PROVIDERS: ATTEND Internal Medicine Gastroenterology
PROC: 0W9G3ZX Drainage of Peritoneal Cavity, Percutaneous Approach, Diagnostic (ICD-10-PCS; principal; 2018-12-14)
DX: K74.60 Unspecified cirrhosis of liver (principal); R18.8 Other ascites; E11.9 Type 2 diabetes mellitus without complications; J44.9 Chronic obstructive pulmonary disease, unspecified; I10 Essential (primary) hypertension; M19.90 Unspecified osteoarthritis, unspecified site; Z88.0 Allergy status to penicillin; Z88.2 Allergy status to sulfonamides; Z88.5 Allergy status to narcotic agent; Z91.018 Allergy to other foods; Z79.899 Other long term (current) drug therapy
CPT/HCPCS: 49083; 76705; 85060; 87070; 87205; 89051; P9047

== ENCOUNTER 2018-12-25 06:47 | Inpatient (IN) | payer OTHER ==
[2018-12-25] MEDS ORDERED: Pantoprazole 40 MG VIAL ONE (07:45)
[2018-12-25] MEDS ORDERED: Lidocaine 4% Cream 5 GM TUBE w/ Tegaderm ONE (07:47)
[2018-12-25 07:51] LABS: #Basophils 0.1 thou/uL (0.0-0.2); #Eosinphils 0.3 thou/uL (0.0-0.7); #Lymphocytes 0.9 thou/uL (1.20-3.40); #Monocytes 0.5 thou/uL (0.11-0.59); #Neutrophils 2.7 thou/uL (1.40-6.50); %Basophils 1.3 % (0.0-1.0); %Eosinophils 7.8 % (0.0-10.0); %Lymphocytes 20.4 % (21.0-51.0); %Monocytes 11.1 % (0.0-10.0); %Neutrophils 59.4 % (42.0-75.0); Hemoglobin 7.6 g/dL (12.0-16.0); Mean Corpuscular HGB CONC 32.9 g/dL (32.0-36.0); Mean Corpuscular Hemoglobin 30.4 pg (27.0-31.0); Mean Corpuscular Volume 92.3 fL (78.0-98.0); Mean Platelet Volume 10.1 fL (7.4-10.4); Platelet Count 101 thou/uL (130-400); RBC Distribution Width 17.5 % (11.5-14.5); Red Blood Cell (RBC) Count 2.51 mill/uL (4.20-5.40); White Blood Cell (WBC) Count 4.5 thou/uL (4.8-10.8)
[2018-12-25 07:56] LABS: INR-International Normal Ratio 1.4; PTT 33.5 SEC (22.9-36.1)
[2018-12-25 08:12] LABS: ALT (SGPT) 17 U/L (8-55); AST (SGOT) 50 U/L (5-34); Albumin 2.7 g/dL (3.5-5.0); Alkaline Phosphatase 115 U/L (40-150); Anion Gap 13 mmol/L (10-20); BUN (Urea Nitrogen) 15 mg/dL (9.8-20.1); Bilirubin, Total 1.4 mg/dL (0.2-1.2); Calc. Creatinine Clearance 0 mL/min (70-130); Calcium 8.1 mg/dL (7.8-10.44); Carbon Dioxide 22 mmol/L (22-29); Chloride 104 mmol/L (98-107); Estimated GFR-MDRD 47; Globulin 2.8 g/dL (2.4-3.5); Glucose 174 mg/dL (70-105); Potassium 4.1 mmol/L (3.5-5.1); Protein, Total 5.5 g/dL (6.0-8.3); Sodium 135 mmol/L (136-145)
[2018-12-25] MEDS ORDERED: Octreotide Acetate 1,250 MCG in Sodium Chloride 0.9% 250 ML 250 ML IVPB SCH (08:30)
[2018-12-25] MEDS ORDERED: Octreotide Acetate 50 MCG/ML AMP SLOW IVP SCH (08:30)
--- NOTE | 2018-12-25 09:15 | PDOC.FPRHP ---
- History of Present Illness Chief Complaint: Vomiting blood History of Present Illness: This is a 53 yo female with a pmh of Cirrhosis, esophageal varices, GERD, depression, asthma who presents to the ER with a cc of vomiting blood. She states this morning at 0300 she felt nauseated and vomited green phlegm. At 0400 she vomited what looked to be a scab and at 0600 she vomited a mouthful of bright red blood. She states that was the last time she vomited. She reports an EGD on November 29 and was seen at [facility] this past Wednesday. She denies abdominal pain with the exception of cramping from vomiting. She denies fever or chills. She remains somewhat nauseated. She reports dizziness, lightheadedness, but denies presyncope or syncope. ED Course: Octreotide 50mcg IVP Octreotied 50mcg/hr Protonix 40mg NS 1 L - Allergies/Adverse Reactions Allergies Allergy/AdvReac Type Severity Reaction Status Date / Time codeine Allergy Verified 12/13/18 14:35 morphine Allergy Verified 12/13/18 14:35 Penicillins Allergy vomiting Verified 12/13/18 14:35 silver Allergy Verified 12/13/18 14:35 [From Tegaderm AG Mesh] Sulfa (Sulfonamide Allergy Verified 12/13/18 14:35 Antibiotics) persimmon Allergy Uncoded 12/13/18 14:35 - Home Medications Medication Instructions Recorded Confirmed Type busPIRone HCl [Buspar] 10 mg PO BID 06/08/15 12/25/18 History Albuterol Sulfate [Proair HFA] 2 puff INH Q4HR PRN 10/20/17 12/25/18 History Loratadine [Claritin] 10 mg PO HS 10/20/17 12/25/18 History Iron,Carbonyl [Perfect Iron] 65 mg PO TID 12/15/17 12/25/18 History Mometasone Furoate [Nasonex] 2 spray EA NARE DAILY PRN 04/20/18 12/25/18 History Lactulose [Kristalose] 1 pack PO BID 11/09/18 12/25/18 History traMADol HCl [Tramadol HCl] 50 mg PO QID PRN 11/17/18 12/25/18 History Esomeprazole Magnesium [NexIUM] 40 mg PO DAILY 11/18/18 12/25/18 History Furosemide [Lasix] 20 mg PO DAILY 12/25/18 12/25/18 History Rifaximin [Xifaxan] 550 mg PO BID 12/25/18 12/25/18 History clonazePAM [Klonopin] 1 mg PO BID 12/25/18 12/25/18 History - History PMHx:Cirrhosis s/p tips, esophageal varices, spinal stenosis with herniated disc , GERD, depression, asthma, PSHx: TIPS, regular paracentesis, 3 c sections, cholecystectomy, FHx: Mother heart diseas, COPD, HTN, Uterin cancer, DM, sister as kidney cancer Social: Ademently denies alcohol use, 46 pack years, quit smoking a week ago - Review of Systems General: reports: fatigue. denies: fever/chills, weight/appetite/sleep changes , night sweats Eyes: denies: eye pain, vision changes ENT: denies: nasal congestion, rhinorrhea Respiratory: reports: exercise intolerance. denies: cough, congestion, shortness of breath Cardiovascular: reports: edema. denies: chest pain, palpitation Gastrointestinal: reports: nausea, vomiting, GI bleeding. denies: diarrhea, abdominal pain Genitourinary: denies: incontinence, dysuria Skin: denies: rashes, lesions Musculoskeletal: reports: pain, stiffness. denies: tenderness Neurological: denies: numbness, syncope, weakness Psychological: reports: depression. denies: anxiety - Vital signs BP: 115/73 HR: 113 RR: 18 Tmax: 98.1 Pox: 100% on ra Wt: 88 kg - Physical Exam Constitutional: NAD, awake, alert and oriented, well developed HEENT: normocephalic and atraumatic, EOMI -HEENT: dry mucus membranes, poor dentition Neck: FROM, trachea midline, no JVD Chest: no-tender to palpation, no lesions Heart: RRR, normal S1/S2, no murmurs/rubs/gallops, other (2+ pitting edema to knee) Lungs: CTAB, no respiratory distress, no wheezing Abdomen: soft, bowel sounds present, other (distended with no fluid wave) Musculoskeletal: normal structure, ROM grossly normal Neurological: no focal deficit, CN II-XII intact Skin: no rash/lesions, capillary refill <2 seconds Heme/Lymphatic: no unusual bruising or bleeding Psychiatric: normal mood and affect, good judgment and insight FMR H&P: Results - Labs Result Diagrams: 12/25/18 07:11 12/25/18 07:11 Lab results: WBC 4.5 thou/uL (4.8-10.8) L 12/25/18 07:11 Hgb 7.6 g/dL (12.0-16.0) L 12/25/18 07:11 Hct 23.2 % (36.0-47.0) L 12/25/18 07:11 MCV 92.3 fL (78.0-98.0) 12/25/18 07:11 Plt Count 101 thou/uL (130-400) L 12/25/18 07:11 Neutrophils % 59.4 % (42.0-75.0) 12/25/18 07:11 Sodium 135 mmol/L (136-145) L 12/25/18 07:11 Potassium 4.1 mmol/L (3.5-5.1) 12/25/18 07:11 Chloride 104 mmol/L (98-107) 12/25/18 07:11 Carbon Dioxide 22 mmol/L (22-29) 12/25/18 07:11 BUN 15 mg/dL (9.8-20.1) 12/25/18 07:11 Creatinine 1.21 mg/dL (0.6-1.1) H 12/25/18 07:11 Glucose 174 mg/dL (70-105) H 12/25/18 07:11 Calcium 8.1 mg/dL (7.8-10.44) 12/25/18 07:11 Total Bilirubin 1.4 mg/dL (0.2-1.2) H 12/25/18 07:11 AST 50 U/L (5-34) H 12/25/18 07:11 ALT 17 U/L (8-55) 12/25/18 07:11 Alkaline Phosphatase 115 U/L (40-150) 12/25/18 07:11 Serum Total Protein 5.5 g/dL (6.0-8.3) L 12/25/18 07:11 Albumin 2.7 g/dL (3.5-5.0) L 12/25/18 07:11 Blood type: AB positive FMR H&P: A/P - Problem List (1) Hematemesis Current Visit: Yes Status: Acute Code(s): K92.0 - HEMATEMESIS (2) CKD (chronic kidney disease) stage 3, GFR 30-59 ml/min Current Visit: No Status: Chronic Code(s): N18.3 - CHRONIC KIDNEY DISEASE, STAGE 3 (MODERATE) (3) Cirrhosis Current Visit: No Status: Chronic Code(s): K74.60 - UNSPECIFIED CIRRHOSIS OF LIVER Qualifiers: Ascites presence: with ascites (4) Esophageal varices Current Visit: No Status: Chronic Code(s): I85.00 - ESOPHAGEAL VARICES WITHOUT BLEEDING (5) GERD (gastroesophageal reflux disease) Current Visit: No Status: Chronic Code(s): K21.9 - GASTRO-ESOPHAGEAL REFLUX DISEASE WITHOUT ESOPHAGITIS (6) History of tobacco abuse Current Visit: No Status: Chronic Code(s): Z87.891 - PERSONAL HISTORY OF NICOTINE DEPENDENCE (7) S/P TIPS (transjugular intrahepatic portosystemic shunt) Current Visit: No Status: Chronic - Plan This is a 53 yo female with a pmh of Cirrhosis, esophageal varices, GERD, depression, asthma Hematemesis, with concern for esophageal variceal bleeding -Admit to IMCU -Consult Dr. Cota, GI, appreciate recommendations -Pending EGD -S/P octreotide and protonix -Hgb 7.6, repeat at 1500, consider transfusion based on results of EGD and CBC -Meld-Na score 17, <2% risk of mortality in 90 days Cirrhosis -No signs for SBP -Pt scheduled for paracentesis in 2 days consider inpt procedure -Continue home meds after EGD CKD3 -Appears near baseline GERD -IV protonix Depression -Continue meds after EGD Spinal stenosis -Continue meds after EGD Code: Full Prophylaxis: SCDs, PPI Family: none at bedside PCP: CARLY Fernandez Diet: NPO Disposition: DC in 2-3 days FMR H&P: Upper Level - Pertinent history 53 yo F w/hx of cirrhosis secondary to Tylenol over use here with complaint of hematemesis this morning. She has had similar episodes in the past and needed both banding and ablation of a gastric AVM. Hematemesis was described as a small amount of bright red blood. Denies bloody or tarry stools. Denies dizziness, weakness, or falls. Has frequent follow up with GI outpatient. ROS General denies fever, chills HEENT denies headache or dizziness CV denies palpitation or chest pain Resp denies SOB or cough Abd complains of vomiting bright red blood x1 less than 1 cup. Denies bloody or tarry stool - Pertinent findings PE General alert and oriented, no acute distress HEENT NCAT, scleral icterus noted CV tachycardic, no murmurs Resp CTA b/l Abd distended, non tender, no fluid wave See pr internship portion for full PE and ROS Laboratory Tests 12/25/18 12/25/18 12/25/18 07:11 07:11 07:11 WBC 4.5 L Hgb 7.6 L Plt Count 101 L INR 1.4 Sodium 135 L Potassium 4.1 Chloride 104 Carbon Dioxide 22 BUN 15 Creatinine 1.21 H Estimated GFR (MDRD) 47 Glucose 174 H Calcium 8.1 Total Bilirubin 1.4 H AST 50 H ALT 17 Alkaline Phosphatase 115 Serum Total Protein 5.5 L Albumin 2.7 L Globulin 2.8 - Plan Date/Time: 12/25/18 0909 I, Reggie Lambert, DO, have evaluated this patient and agree with findings/plan as outlined by pr internship resident. Pertinent changes/additions are listed here. 1. Upper GI bleed, presumed - GI has been contacted by ERMD. He plans on EGD this morning - continue octreotide 2. Acute blood loss anemia superimposed on chronic anemia - secondary to bleed - will wait for GI recommendations to transfuse - currently hemodynamically stable 3. End stage liver disease - MELD 15 - LFT appears to be at baseline - GI has been consulted 4. CKD III - at baseline 5. Pancytopenia - related to cirrhosis. currently at baseline 6. Hypoalbuminemia - related to liver disease, currently at baseline. Not currently third spacing fluid 7. Ascities - no signs of SBP, patient typically has scheduled paracentesis outpatient. Next one is scheduled for 12/27 will perform here in the hospital if needed. PPx -SCD Diet Low protein Code Full Dispo: Currently stable, further plan pending EGD results. Likely LOS >48 hours. Addendum - Attending - Attending Attestation Date/Time: 12/25/18 4236 I personally evaluated the patient and discussed the management with Drs. boswell/Fausto Patient evaluated in ER prior to going to endoscopy suite. I agree with the History, Examination, Assessment and Plan documented above with any addition or exceptions noted below. 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 She doesnt endorse melana however on iron supplement and stool dark /green. Patient alert oriented NAD hemodynamically stable note Hgb drop into 7s was 8s previously. Patient with octreotide drip and empirical SBP prophylaxis appreciate recommendation per Dr Cota and going for EGD this AM.Patient for paracentesis prn.
[2018-12-25] MEDS ORDERED: Promethazine HCl 25 MG/ML VIAL SLOW IVP PRN ×2 (10:02→11:29)
[2018-12-25] MEDS ORDERED: Promethazine HCl 25 MG/ML VIAL IM PRN ×2 (10:02→11:29)
[2018-12-25] MEDS ORDERED: Ondansetron HCl/PF 4 MG/2 ML Vial IVP PRN ×2 (10:02→11:29)
[2018-12-25] MEDS ORDERED: Ketamine 50 MG/ML (10ML VIAL) ONE (10:17)
--- NOTE | 2018-12-25 11:19 | CON ---
DATE OF CONSULTATION: 12/25/2018 CHIEF COMPLAINT: Vomited blood. HISTORY OF PRESENT ILLNESS: Ms. Gonzalez is a 53-year-old woman with end-stage liver disease and history of varices and gastric antral vascular ectasia, who presents with vomiting blood. This morning around 6 a.m., she vomited a couple of times and threw up a blood clot and then threw up some drips of red blood that turned the water red. She does not have any ongoing abdominal pain with that, but has had some progressive abdominal distention from her ascites and is planned for paracentesis this week. Her last paracentesis was a couple of weeks ago. She is also scheduled to see her transplant cna per diem in [place] later this week. She reports that she had constipation earlier in the week and despite taking lactulose, she went 5 days without a bowel movement. She finally did have a bowel movement this past Wednesday after taking a couple of Dulcolax tablets. PAST MEDICAL HISTORY: Cirrhosis, ascites, hepatic encephalopathy, and anxiety. PAST SURGICAL HISTORY: EGD, colonoscopy, and TIPS procedure. FAMILY HISTORY: Negative for GI malignancy. SOCIAL HISTORY: She quit smoking years ago. She quit drinking years ago. No drugs. ALLERGIES: CODEINE, MORPHINE, PENICILLIN, AND SULFA. MEDICATIONS: Prior to admission; 1. Iron supplementation. 2. Buspirone. 3. Lactulose 20 g twice daily. 4. Nexium 40 mg daily. 5. ProAir inhaler. 6. Tramadol. 7. Xifaxan 550 mg twice daily. 8. Furosemide 40 mg daily. 9. Spironolactone 100 mg daily. REVIEW OF SYSTEMS: Negative x10 systems reviewed except as stated in history of present illness. PHYSICAL EXAMINATION: VITAL SIGNS: She was tachycardic on initial presentation with a pulse of 126, but that came down to the one teens after hydration. Blood pressure 115/73 and temperature 98.1. GENERAL: She is in no acute distress. Alert and oriented x3. HEENT: Eyes have no scleral icterus. Oropharynx is clear without lesions. No cervical or supraclavicular lymphadenopathy. LUNGS: Clear to auscultation bilaterally. HEART: Regular rate and rhythm without murmur. ABDOMEN: Distended with ascites, but nontender. Bowel sounds are present. EXTREMITIES: No lower extremity edema. LABORATORY DATA: White blood cell count 4.5, hemoglobin 7.6 down from 8.7 four days ago, and platelets 101. INR 1.4. Creatinine 1.21, bilirubin 1.4, AST 50, ALT 17, alkaline phosphatase 115, and albumin 2.7. IMPRESSION: 1. Hematemesis. This really does not sound like a large volume hematemesis; however, she did present with tachycardia and just had gastric antral vascular ectasia cauterized most recently on 11/29/2018 and prior to that on 11/21/2018. She has a history of varices, but did not have significant varices on her recent endoscopy. She has had a prior transjugular intrahepatic portosystemic shunt procedure. She did require blood transfusion back in October with a total of 6 units during that time prior to the cautery of the gastric antral vascular ectasia. 2. Cirrhosis of the liver, decompensated with ascites and hepatic encephalopathy and varices, elevated INR, portal hypertension, low albumin, and elevated bilirubin. She is being evaluated by Hepatology in [place] and has an appointment with them this coming week. 3. Ascites. In the light of the upper gastrointestinal bleed. We will cover for with ceftriaxone for spontaneous bacterial peritonitis prophylaxis; however, this does not seem to be a large volume bleed. She could potentially undergo paracentesis while she is here depending on the hospital course and her clinical course. 4. History of hepatic encephalopathy. She has been on lactulose and Xifaxan. She went 5 days without a bowel movement earlier or few days ago. She was encouraged to get plenty of water with the lactulose. We can increase that dose as well. 5. Chronic renal insufficiency. Her creatinine is elevated at 1.21. We will need to continue to monitor her renal function with the use of the diuretics and paracentesis. RECOMMENDATIONS: 1. Octreotide. 2. Esophagogastroduodenoscopy. 3. Antibiotics for SBP prophylaxis. 4. Follow trend of her hemoglobin. 5. Consider paracentesis with fluid studies for tomorrow morning. 6. She will need to keep her followup appointment with her cna per diem in [place] if she is able to be discharged without a more complicated clinical course. Clinically, she seems to be doing very well now. Job ID: [id number]
[2018-12-25] MEDS ORDERED: Ondansetron PF 4 MG/2 ML Vial ONE ×2 (11:30→17:20)
[2018-12-25] MEDS ORDERED: Sodium Chloride 0.9% (PF) 10 ML VIAL FS PRN (11:34)
[2018-12-25] MEDS ORDERED: Ondansetron ODT 4 MG TAB PO PRN (11:48)
[2018-12-25] MEDS ORDERED: Acetaminophen 325 MG TAB PO PRN (11:48)
[2018-12-25] MEDS ORDERED: Ondansetron PF 4 MG/2 ML Vial IVP PRN (11:48)
[2018-12-25] MEDS ORDERED: Fentanyl 100 MCG/2 ML VIAL ONE (11:53)
[2018-12-25 16:08] LABS: Anisocytosis SLIGHT = 6-15 cells (100X) (0-5/hpf); Band 3 % (5-11); Eosinophils 6 % (0-10); Hemoglobin 7.1 g/dL (12.0-16.0); Hypochromia SLIGHT = 6-15 cells (100X) (0-5/hpf); Lymphocytes 6 % (21-51); MDiff Complete? YES; Mean Corpuscular HGB CONC 32.8 g/dL (32.0-36.0); Mean Corpuscular Hemoglobin 30.8 pg (27.0-31.0); Monocytes 5 % (0-10); Neutrophil 80 % (42-75); Platelet Count 94 thou/uL (130-400); Platelet Morphology Comment Appears Decreased; RBC Distribution Width 17.5 % (11.5-14.5); Red Blood Cell (RBC) Count 2.29 mill/uL (4.20-5.40); White Blood Cell (WBC) Count 3.5 thou/uL (4.8-10.8)
--- NOTE | 2018-12-25 16:58 | OP ---
DATE OF PROCEDURE: 12/25/2018 PROCEDURES PERFORMED: Esophagogastroduodenoscopy with control of hemorrhage. PREOPERATIVE DIAGNOSES: Hematemesis. She did not vomit a large volume. She threw up a blood clot and then threw up a few drops of blood, but she did present with tachycardia and has a history of extensive gastric antral vascular ectasia and a prior history of varices that are flattened with TIPS procedure. DESCRIPTION OF PROCEDURE: Informed consent was obtained from the patient. She was sedated with general anesthesia. The bite block was placed and the endoscope was advanced easily to the second portion of the duodenum and retroflexion was performed in the stomach. The esophagus was unremarkable overall. She did not have significant varices. The stomach had severe portal hypertensive gastropathy throughout the body and fundus. There was some friability and small blood clots that could form over these areas. There was gastric antral vascular ectasias present as well. There were scars from the previous cautery. Again, this was extensive and I burned a large area of the gastric antral vascular ectasias in the antrum; however, I doubt that we ultimately will be able to adequately control the chronic slow blood loss with the coagulation of these. There were some small vascular ectasias in the bulb of the duodenum as well. Second portion of the duodenum was normal. Retroflex views in the stomach were otherwise unremarkable. IMPRESSION: 1. Extensive gastric antral vascular ectasia and portal hypertensive gastropathy. There were areas that would be slightly informed small blood clots over these vascular ectasias in the antrum and over the portal hypertensive gastropathy. There was no significant large volume bleeding. The gastric antral vascular ectasia was again cauterized extensively with argon plasma coagulation. 2. No significant esophageal varices. 3. There were a few small arteriovenous malformations in the first portion of the duodenum as well. RECOMMENDATIONS: 1. Follow trend of her hemoglobin. 2. Paracentesis in the morning. 3. Low-salt diet. 4. We will cover with ceftriaxone for now in light of the presentation with upper gastrointestinal bleed and await fluid studies from her tap for tomorrow morning. Job ID: [id number]
[2018-12-25] MEDS ORDERED: PROPOFOL 200 MG/20 ML VIAL ONE (17:20)
[2018-12-25] MEDS ORDERED: Lidocaine 1% PF 5 ML VIAL ONE (17:20)
[2018-12-25 18:34] VITALS: BMI 31.6
[2018-12-25] MEDS ORDERED: PROVENTIL INHALER 6.7 G (200 INHALATIONS) INH PRN (19:20)
[2018-12-25] MEDS: clonazePAM 1 MG TAB PO SCH ×2 (20:42→21:40)
[2018-12-25] MEDS: busPIRone HCl 10 MG TAB PO SCH (20:42)
[2018-12-25] MEDS: Pantoprazole 40 MG VIAL IVP SCH (20:42)
[2018-12-25] MEDS: Loratadine 10 MG TAB PO SCH (20:42)
[2018-12-25] MEDS: traMADol HCl 50 MG TAB PO PRN (20:42)
[2018-12-25] MEDS ORDERED: traMADol HCl 50 MG TAB PO SCH (21:00)
[2018-12-25] MEDS ORDERED: Ferrous Sulfate 325 MG TAB PO SCH (21:30)
[2018-12-26 04:58] LABS: ALT (SGPT) 16 U/L (8-55); AST (SGOT) 35 U/L (5-34); Albumin 2.4 g/dL (3.5-5.0); Alkaline Phosphatase 93 U/L (40-150); Anion Gap 8 mmol/L (10-20); BUN (Urea Nitrogen) 14 mg/dL (9.8-20.1); Bilirubin, Total 1.4 mg/dL (0.2-1.2); Calc. Creatinine Clearance 84 mL/min (70-130); Carbon Dioxide 24 mmol/L (22-29); Chloride 106 mmol/L (98-107); Estimated GFR-MDRD 52; Globulin 2.3 g/dL (2.4-3.5); Glucose 162 mg/dL (70-105); Potassium 3.4 mmol/L (3.5-5.1); Protein, Total 4.7 g/dL (6.0-8.3); Sodium 135 mmol/L (136-145)
[2018-12-26 05:54] LABS: Anisocytosis SLIGHT = 6-15 cells (100X) (0-5/hpf); Band 5 % (5-11); Eosinophils 11 % (0-10); Hemoglobin 6.8 g/dL (12.0-16.0); Lymphocytes 9 % (21-51); MDiff Complete? YES; Mean Corpuscular HGB CONC 32.8 g/dL (32.0-36.0); Mean Corpuscular Hemoglobin 30.9 pg (27.0-31.0); Mean Corpuscular Volume 94.3 fL (78.0-98.0); Mean Platelet Volume 9.6 fL (7.4-10.4); Monocytes 15 % (0-10); Neutrophil 60 % (42-75); Platelet Count 91 thou/uL (130-400); Platelet Morphology Comment Appears Decreased; RBC Distribution Width 17.2 % (11.5-14.5); Red Blood Cell (RBC) Count 2.19 mill/uL (4.20-5.40); White Blood Cell (WBC) Count 3.2 thou/uL (4.8-10.8)
--- NOTE | 2018-12-26 05:58 | PDOC.FM ---
- Subjective Subjective: Possible dark stool, pt not sure. Denies lightheadedness, hematemsis. Denies abd pain. - Objective Vital Signs & Weight: Vital Signs (12 hours) Temp Pulse Resp BP Pulse Ox 12/26/18 04:00 98.1 F 94 16 105/67 96 12/26/18 00:29 106 H 16 95/57 L 12/25/18 20:00 97.9 F 66 16 99/65 100 12/25/18 19:15 99 Weight Weight 88.904 kg I&O: 12/24/18 12/25/18 12/26/18 06:59 06:59 06:59 Intake Total 360 Balance 360 Result Diagrams: 12/26/18 04:20 12/26/18 04:20 Phys Exam - Physical Examination Constitutional: NAD HEENT: PERRLA, moist MMs, sclera anicteric Respiratory: clear to auscultation bilateral no respi distress Cardiovascular: RRR, no significant murmur ascites Musculoskeletal: pulses present Neurological: non-focal, moves all 4 limbs Psychiatric: normal affect, A&O x 3 Skin: no rash, cap refill <2 seconds Dx/Plan (1) Upper GI bleed Code(s): K92.2 - GASTROINTESTINAL HEMORRHAGE, UNSPECIFIED Status: Resolved (2) Anemia Code(s): D64.9 - ANEMIA, UNSPECIFIED Status: Acute (3) Hypokalemia Code(s): E87.6 - HYPOKALEMIA Status: Acute (4) Cirrhosis of liver with ascites Code(s): K74.60 - UNSPECIFIED CIRRHOSIS OF LIVER Status: Chronic (5) Esophageal varices Code(s): I85.00 - ESOPHAGEAL VARICES WITHOUT BLEEDING Status: Chronic (6) GERD (gastroesophageal reflux disease) Code(s): K21.9 - GASTRO-ESOPHAGEAL REFLUX DISEASE WITHOUT ESOPHAGITIS Status: Chronic (7) HTN (hypertension) Code(s): I10 - ESSENTIAL (PRIMARY) HYPERTENSION Status: Chronic (8) History of tobacco abuse Code(s): Z87.891 - PERSONAL HISTORY OF NICOTINE DEPENDENCE Status: Chronic (9) S/P TIPS (transjugular intrahepatic portosystemic shunt) Status: Chronic (10) CKD (chronic kidney disease) stage 3, GFR 30-59 ml/min Code(s): N18.3 - CHRONIC KIDNEY DISEASE, STAGE 3 (MODERATE) Status: Chronic (11) Spinal stenosis Code(s): M48.00 - SPINAL STENOSIS, SITE UNSPECIFIED Status: Chronic - Plan Plan: 53 yo F with cirrhosis 2/2 to tylenol over s/p TIPS, hx of esophageal varices here for UGIB. #Upper GI bleed 2/2 gastric antral vascular ectasias -POD 1 s/p EGD -H/H 6.8/20.6 today will type & cross 1 unit -s/p octreotide drip -continue IV protonix BID -continue monitoring H/H #Acute blood loss anemia superimposed on chronic anemia - secondary to gastric bleed - currently hemodynamically stable - type & cross #End stage liver disease - MELD 15 - LFTs at baseline #Coagulopathy -PT 1.7 2/2 to ESLD #CKD III - at baseline #Pancytopenia - related to cirrhosis. currently at baseline #Hypoalbuminemia - related to liver disease, currently at baseline. Not currently third spacing fluid # Ascities - plan for paracentesis by GI - s/p rocephin for SBP ppx - Currently on cipro for ppx dvt ppx: SCD Diet: Low protein Code Full Dispo: Acute blood loss 2/2 gastric bleed - stable, however Hb <7. Will type & cross for transfusion. 2) Ascites-no clinical signs of SBP, but s/p rocephin, on cipro for ppx, GI on board. Hypokalemia-will replace. Addendum - Attending - Attending Attestation Date/Time: 12/26/18 1614 I personally evaluated the patient and discussed the management with Dr. Small. I agree with the History, Examination, Assessment and Plan documented above with any addition or exceptions noted below. Patient is anemic and we will transfuse additional unit prbc's. Trend hemoglobin. Pt with hypokalemic and we will replace potassium. She will have paracentesis tomorrow.
[2018-12-26] MEDS ORDERED: Potassium Chloride 20 MEQ in Premix Bag 1 BAG IVPB SCH (06:15)
[2018-12-26] MEDS: busPIRone HCl 10 MG TAB PO SCH ×2 (08:37→20:25)
[2018-12-26] MEDS: Pantoprazole 40 MG VIAL IVP SCH ×2 (08:37→20:25)
[2018-12-26] MEDS: Rifaximin 550 MG TAB PO SCH ×2 (08:37→20:30)
[2018-12-26] MEDS: clonazePAM 1 MG TAB PO SCH ×2 (08:37→20:27)
[2018-12-26] MEDS: Ferrous Sulfate 325 MG TAB PO SCH ×3 (08:37→17:06)
[2018-12-26] MEDS: traMADol HCl 50 MG TAB PO PRN ×2 (08:44→20:25)
[2018-12-26] MEDS ORDERED: Fluticasone Propionate Nasal Spray 16 gm Bottle NASAL PRN (09:00)
[2018-12-26] MEDS ORDERED: Magnesium 2 GM/50 ML 2 GM in Premix Bag 1 BAG IVPB SCH (09:15)
--- NOTE | 2018-12-26 16:12 | ULT ---
Ultrasound-guided paracentesis: History: Hepatic failure and ascites. Informed consent was obtained from the patient. A large collection of fluid was noted in the right ab domen. A collection of fluid in the right upper quadrant was localized using ultrasound guidance. The overlying skin was prepped and draped in the usual sterile manner. A 1% lidocaine solution was us ed to anesthetize the overlying soft tissues. A small dermatotomy was made. A 5 Ukrainian Yueh needle was placed into the peritoneal collection using ultrasound guidance. A total of 7 L of peritoneal flu id was removed without difficulty. IMPRESSION: Successful ultrasound-guided paracentesis. Transcribed Date/Time: 12/26/2018 5:36 PM
[2018-12-26] MEDS ORDERED: Potassium Chloride 20 MEQ TAB PO SCH (17:15)
[2018-12-26 18:14] LABS: BF Color Yellow; BF RBC Count - Manual 48 /cumm; BF WBC/Nonhematics Ct. - Manua 18 /cumm; Body Fluid Source Ascites Body Fluid; Cell Count Non Hematic 93 %; Clarity Clear (Clear); Lymphocytes 7 %; Tube # EDTA
[2018-12-26 20:04] LABS: Hemoglobin 8.7 g/dL (12.0-16.0)
[2018-12-26] MEDS: Loratadine 10 MG TAB PO SCH (20:27)
[2018-12-27] MEDS ORDERED: Cyclobenzaprine 10 MG TAB PO SCH (00:30)
--- NOTE | 2018-12-27 07:29 | PDOC.FM ---
- Subjective Subjective: NAEO. had 7L drained from paracentesis yesterday. BPs have been good. Denies lightheadedness, fatigue, GI bleeding. - Objective MAR Reviewed: Yes Vital Signs & Weight: Vital Signs (12 hours) Pulse Resp BP Pulse Ox 12/26/18 20:44 89 16 111/68 96 Weight Weight 88.904 kg I&O: 12/26/18 12/27/18 12/28/18 06:59 06:59 06:59 Intake Total 360 1475 Output Total 7000 Balance 360 -5144 Result Diagrams: 12/27/18 07:46 12/27/18 07:46 Phys Exam - Physical Examination Constitutional: NAD HEENT: PERRLA, moist MMs Respiratory: no wheezing, clear to auscultation bilateral Cardiovascular: RRR, no significant murmur Gastrointestinal: soft distended Neurological: non-focal, moves all 4 limbs Psychiatric: normal affect, A&O x 3 Skin: cap refill <2 seconds Dx/Plan (1) Upper GI bleed Code(s): K92.2 - GASTROINTESTINAL HEMORRHAGE, UNSPECIFIED Status: Resolved (2) Anemia Code(s): D64.9 - ANEMIA, UNSPECIFIED Status: Acute (3) Hypokalemia Code(s): E87.6 - HYPOKALEMIA Status: Acute (4) Cirrhosis of liver with ascites Code(s): K74.60 - UNSPECIFIED CIRRHOSIS OF LIVER Status: Chronic (5) Esophageal varices Code(s): I85.00 - ESOPHAGEAL VARICES WITHOUT BLEEDING Status: Chronic (6) GERD (gastroesophageal reflux disease) Code(s): K21.9 - GASTRO-ESOPHAGEAL REFLUX DISEASE WITHOUT ESOPHAGITIS Status: Chronic (7) HTN (hypertension) Code(s): I10 - ESSENTIAL (PRIMARY) HYPERTENSION Status: Chronic (8) History of tobacco abuse Code(s): Z87.891 - PERSONAL HISTORY OF NICOTINE DEPENDENCE Status: Chronic (9) S/P TIPS (transjugular intrahepatic portosystemic shunt) Status: Chronic (10) CKD (chronic kidney disease) stage 3, GFR 30-59 ml/min Code(s): N18.3 - CHRONIC KIDNEY DISEASE, STAGE 3 (MODERATE) Status: Chronic (11) Spinal stenosis Code(s): M48.00 - SPINAL STENOSIS, SITE UNSPECIFIED Status: Chronic - Plan Plan: 53 yo F with cirrhosis 2/2 to tylenol over s/p TIPS, hx of esophageal varices here for UGIB. #Upper GI bleed 2/2 gastric antral vascular ectasias -POD 2 s/p EGD -H/H improved: 8.7/27.2 s/p 1 PRBC, pending AM H/H -s/p octreotide drip -continue IV protonix BID -continue monitoring for signs of clinical bleeding #Acute blood loss anemia superimposed on chronic anemia - secondary to gastric bleed - currently hemodynamically stable - see above #End stage liver disease - MELD 15 - LFTs at baseline #Coagulopathy -PT 1.7 2/2 to ESLD #CKD III - at baseline #Pancytopenia - related to cirrhosis. currently at baseline #Hypoalbuminemia - related to liver disease, currently at baseline. Not currently third spacing fluid # Ascities - s/p 7L paracentesis, pending fluid analysis results - s/p rocephin for SBP ppx - Currently on cipro for ppx dvt ppx: SCD Diet: Low protein Code Full Dispo: Acute blood loss 2/2 gastric bleed - Hb 9.3, stable. 2) Ascites 2/2 liver cirrhosis-s/p paracentesis draining 7L. BP stable. Likely d/c today pending GI sign off. Addendum - Attending - Attending Attestation Date/Time: 12/27/18 1031 I personally evaluated the patient and discussed the management with Dr. Small. I agree with the History, Examination, Assessment and Plan documented above with any addition or exceptions noted below. The patient's anemia is stable. She did end up having paracentesis yesterday. Will discharge today and she has an appt with liver specialist tomorrow in [place].
[2018-12-27 08:09] LABS: #Eosinphils 0.5 thou/uL (0.0-0.7); #Lymphocytes 0.9 thou/uL (1.20-3.40); #Monocytes 0.7 thou/uL (0.11-0.59); #Neutrophils 2.8 thou/uL (1.40-6.50); %Basophils 0.4 % (0.0-1.0); %Eosinophils 10.2 % (0.0-10.0); %Lymphocytes 17.9 % (21.0-51.0); %Monocytes 14.3 % (0.0-10.0); %Neutrophils 57.3 % (42.0-75.0); Hemoglobin 9.3 g/dL (12.0-16.0); Mean Corpuscular HGB CONC 32.1 g/dL (32.0-36.0); Mean Corpuscular Hemoglobin 30.5 pg (27.0-31.0); Mean Corpuscular Volume 95.2 fL (78.0-98.0); Mean Platelet Volume 9.1 fL (7.4-10.4); Platelet Count 113 thou/uL (130-400); RBC Distribution Width 16.9 % (11.5-14.5); Red Blood Cell (RBC) Count 3.05 mill/uL (4.20-5.40); White Blood Cell (WBC) Count 4.8 thou/uL (4.8-10.8)
[2018-12-27 08:22] LABS: ALT (SGPT) 18 U/L (8-55); AST (SGOT) 43 U/L (5-34); Albumin 2.6 g/dL (3.5-5.0); Alkaline Phosphatase 122 U/L (40-150); Anion Gap 10 mmol/L (10-20); BUN (Urea Nitrogen) 13 mg/dL (9.8-20.1); Bilirubin, Total 1.4 mg/dL (0.2-1.2); Calc. Creatinine Clearance 72 mL/min (70-130); Calcium 8.1 mg/dL (7.8-10.44); Carbon Dioxide 23 mmol/L (22-29); Chloride 106 mmol/L (98-107); Estimated GFR-MDRD 44; Globulin 2.7 g/dL (2.4-3.5); Glucose 142 mg/dL (70-105); Magnesium 1.8 mg/dL (1.6-2.6); Potassium 4.2 mmol/L (3.5-5.1); Protein, Total 5.3 g/dL (6.0-8.3); Sodium 135 mmol/L (136-145)
[2018-12-27] MEDS: Pantoprazole 40 MG VIAL IVP SCH (08:22)
[2018-12-27] MEDS: Rifaximin 550 MG TAB PO SCH (08:23)
[2018-12-27] MEDS: clonazePAM 1 MG TAB PO SCH (08:23)
[2018-12-27] MEDS: busPIRone HCl 10 MG TAB PO SCH (08:23)
[2018-12-27] MEDS: traMADol HCl 50 MG TAB PO PRN (08:24)
[2018-12-27] MEDS: Ferrous Sulfate 325 MG TAB PO SCH (08:50)
[2018-12-27 09:05] VITALS: BP 99/63; TEMP 99.3
--- NOTE | 2018-12-27 10:44 | PRG ---
DATE OF SERVICE: 12/26/2018 SUBJECTIVE: Ms. Gonzalez has had no bleeding. She is eating well. She had a paracentesis today. OBJECTIVE: VITAL SIGNS: Temperature is 98, pulse 85, blood pressure 90s to 100 over 60s to 70s. ABDOMEN: Soft and nontender. GENERAL: She is cachectic with muscle wasting. EXTREMITIES: Reveal edema. LABORATORY STUDIES: Hemoglobin 6.8, status post 1 unit of blood; white count 2.3; platelet count is 91,000. ASSESSMENT: 1. Cirrhosis, alcoholic fatty liver. 2. Status post previous TIPS, which seems not to be working. 3. Severe portal gastropathy causing anemia with previous treatment with APC. PLAN: The patient has appointment this week in [facility] at [facility] for TIPS check to see if it can be revised and that she needs to make that appointment. If she is stable, I think she can go home tomorrow, so she can get there. Job ID: [id number]
--- NOTE | 2018-12-28 01:57 | DIS ---
DATE OF ADMISSION: 12/25/2018 DATE OF DISCHARGE: 12/27/2018 RESIDENT: Vanessa Small, PGY-1. ADMITTING ATTENDING: Blaine Yancey MD. DISCHARGE ATTENDING: Arlette Casillas MD CONSULTS: Gastroenterology, Dr. Cota. PROCEDURES AND RESULTS: 1. EGD: Extensive gastric antral vascular ectasias and portal hypertensive gastropathy. No signs of active bleeding. No significant large volume of bleeding. The gastric antral vascular ectasias were cauterized extensively with argon plasma coagulation. No significant esophageal varices. Few AVMs in the 1st portion of the duodenum. 2. Ultrasound-guided paracenteses: Removal of 7 L, fluid results are pending. PRIMARY DIAGNOSES: 1. Hematemesis secondary to bleeding gastric antral ectasias, hemostatic. 2. Liver cirrhosis, status post transjugular intrahepatic portosystemic shunt, likely secondary to Tylenol overuse. 3. Acute blood loss anemia secondary to #1. 4. Chronic anemia secondary to end-stage liver disease. SECONDARY DIAGNOSES: 1. End-stage liver disease. 2. Coagulopathy secondary to above. 3. Chronic kidney disease, 3. 4. Pancytopenia secondary to cirrhosis. 5. Hypoalbuminemia secondary to cirrhosis. 6. Ascites secondary to cirrhosis. 7. Gastroesophageal reflux disease. 8. Depression. DISCHARGE MEDICATIONS: 1. Protonix 40 mg p.o. b.i.d. 2. Cipro 250 mg p.o. b.i.d. 3. Lasix 40 mg p.o. daily. 4. Xifaxan 550 mg p.o. b.i.d. 5. Nexium 40 mg p.o. daily. 6. Tramadol 50 mg p.o. b.i.d. 7. Lactulose 2 packets p.o. b.i.d. 8. Nasonex 2 sprays each naris daily p.r.n. 9. Iron 65 mg p.o. t.i.d. 10. Claritin 10 mg p.o. at bedtime. 11. ProAir HFA 2 puffs inhaled q.4 hours. 12. BuSpar 10 mg p.o. b.i.d. DISCONTINUED MEDICATIONS: Esomeprazole, may resume after cleared by GI pantoprazole to p.o. b.i.d. HISTORY OF PRESENT ILLNESS/HOSPITAL COURSE: Jesse Gonzalez is a 53-year-old female with end-stage liver disease and cirrhosis, who presents to the ED for reported episode of hematemesis. Earlier that day she vomited up a lot of blood with some speckles. In the ED, she was hemodynamically stable with a hemoglobin of 7.6. Of note, the patient has a history complicated by chronic anemia. She underwent a non-urgent EGD, which did show no signs of active bleeding. There was presence of gastric antral vascular ectasias and small esophageal varices. It was thought that the former was likely trivial to the bleeding that she had since there were presence of clots over these ectasias. Gastroenterology was consulted and the patient was started on medications for GI bleeding prophylaxis in addition to SBP prophylaxis. She did have a tender abdomen at that time. Over the course of few days, the patient did require 1 unit of packed red blood cells and remained hemodynamically stable. She also underwent paracenteses where she had 7 L drained. Upon discharge, the patient had plans to travel to [place] for vein mapping in order to reassess her for TIPS procedure. Per the patient, she has been followed by Dr. Cota and Dr. Schmid who plan to see her in the outpatient setting. DISPOSITION: Stable, however, long-term prognosis remains guarded. DISCHARGE INSTRUCTIONS: 1. Location: Home. 2. Diet: Heart healthy, low-salt diet. 3. Activity: As tolerated. FOLLOWUP: 1. Please follow up PCP, Dr. Harjit Abbasi, in 3 to 5 days. 2. Please follow up with [place] physician as instructed by her community health program coordinator tomorrow. 3. Please follow up with Dr. Schmid or Dr. Cota in 7 to 10 days. Please finish 7-day course of ciprofloxacin for SBP prophylaxis. Job ID: [id number]
== END 2018-12-27 13:03 | disposition home or self-care (01) | DRG 378 ==
LOC: ERS 06:47 → SDC 09:21 → SURG A 14:40
PROVIDERS: ADMIT Family Medicine; ATTEND Family Medicine
PROC: 0W3P8ZZ Control Bleeding in Gastrointestinal Tract, Via Natural or Artificial Opening Endoscopic (ICD-10-PCS; principal; 2018-12-25)
PROC: 0W9G3ZZ Drainage of Peritoneal Cavity, Percutaneous Approach (ICD-10-PCS; 2018-12-26)
DX: K31.811 Angiodysplasia of stomach and duodenum with bleeding (principal); D62 Acute posthemorrhagic anemia; D61.818 Other pancytopenia; K76.6 Portal hypertension; K92.2 Gastrointestinal hemorrhage, unspecified; K74.60 Unspecified cirrhosis of liver; K21.9 Gastro-esophageal reflux disease without esophagitis; F32.9 Major depressive disorder, single episode, unspecified; J45.909 Unspecified asthma, uncomplicated; N18.3 Chronic kidney disease, stage 3 (moderate); M48.00 Spinal stenosis, site unspecified; K72.90 Hepatic failure, unspecified without coma; F41.9 Anxiety disorder, unspecified; K31.89 Other diseases of stomach and duodenum; Q27.33 Arteriovenous malformation of digestive system vessel; E87.6 Hypokalemia; K70.31 Alcoholic cirrhosis of liver with ascites; I85.00 Esophageal varices without bleeding; I12.9 Hypertensive chronic kidney disease with stage 1 through stage 4 chronic kidney disease, or unspecified chronic kidney disease; Z87.891 Personal history of nicotine dependence; F10.10 Alcohol abuse, uncomplicated; E88.09 Other disorders of plasma-protein metabolism, not elsewhere classified
CPT/HCPCS: 36415; 36430; 49083; 80053; 82140; 83735; 85025; 85060; 85610; 85730; 86850; 86900; 86901; 87070; 87205; 89051; 93005; C9113; J0744; J2001; J2354; J2405; J2704; J3010; J3475; J3480; J7050; P9016

== ENCOUNTER 2019-01-11 08:45 | Day surgery (SDC) | payer OTHER ==
[2019-01-10 12:31] VITALS: BMI 27.3
[2019-01-11] MEDS ORDERED: Albumin 25% 200 ML ONE (09:24)
--- NOTE | 2019-01-11 12:49 | ULT ---
PROCEDURE: Ultrasound guided abdominal paracentesis. INDICATION: Cirrhosis with recurrent ascites. FINDINGS: 5 liters of yellow-clear ascitic fluid removed from the right lower quadrant. PROCEDURE NOTE: Four quadrant ultrasound revealed high volume ascites. Right lower quadrant was chosen for puncture. The overlying skin was prepped and draped in the steril e manner. Entry point was identified for ultrasound. Local anesthesia administered with lidocaine and bicarb. Tiny skin krystle made with scalpel. A 5 Amharic JumpSeller catheter with needle in place was introduc ed under ultrasound guidance into the ascitic fluid in the right lower quadrant. Catheter was advance d as needle was removed. The catheter was attached to suction drainage. 5 liters of ascitic fluid rem william. No problems or complications. POS: TIFFANIE
[2019-01-11 14:37] VITALS: BP 117/63; TEMP 98.1
== END 2019-01-11 10:55 | disposition home or self-care (01) ==
LOC: ULT 08:45
PROVIDERS: ATTEND Internal Medicine Gastroenterology
PROC: 0W9G3ZZ Drainage of Peritoneal Cavity, Percutaneous Approach (ICD-10-PCS; principal; 2019-01-11)
DX: K74.60 Unspecified cirrhosis of liver (principal); R18.8 Other ascites; M19.90 Unspecified osteoarthritis, unspecified site; J44.9 Chronic obstructive pulmonary disease, unspecified; K21.9 Gastro-esophageal reflux disease without esophagitis; I12.9 Hypertensive chronic kidney disease with stage 1 through stage 4 chronic kidney disease, or unspecified chronic kidney disease; E11.22 Type 2 diabetes mellitus with diabetic chronic kidney disease; N18.9 Chronic kidney disease, unspecified; D63.1 Anemia in chronic kidney disease; G89.29 Other chronic pain; M54.9 Dorsalgia, unspecified; Z79.899 Other long term (current) drug therapy; Z88.0 Allergy status to penicillin; Z88.2 Allergy status to sulfonamides; Z88.8 Allergy status to other drugs, medicaments and biological substances; Z91.018 Allergy to other foods
CPT/HCPCS: 49083; P9047

== ENCOUNTER 2019-01-20 12:44 | Day surgery (SDC) | payer OTHER ==
[2019-01-20] MEDS ORDERED: Acetaminophen 325 MG TAB ONE (14:09)
[2019-01-20 21:21] VITALS: TEMP 98.1
[2019-01-20 22:12] LABS: Band 5 % (5-11); Eosinophils 3 % (0-10); Hemoglobin 9.1 g/dL (12.0-16.0); Lymphocytes 15 % (21-51); MDiff Complete? YES; Mean Corpuscular HGB CONC 33.6 g/dL (32.0-36.0); Mean Corpuscular Hemoglobin 31.7 pg (27.0-31.0); Mean Corpuscular Volume 94.4 fL (78.0-98.0); Mean Platelet Volume 7.5 fL (7.4-10.4); Monocytes 8 % (0-10); Neutrophil 68 % (42-75); Platelet Count 102 thou/uL (130-400); Platelet Morphology Comment Appears Decreased; Red Blood Cell (RBC) Count 2.85 mill/uL (4.20-5.40); White Blood Cell (WBC) Count 5.3 thou/uL (4.8-10.8)
== END 2019-01-20 21:52 | disposition home or self-care (01) ==
LOC: SDC/OP 12:44 → PACU-TCU 12:49 → SDC/OP 21:52
PROVIDERS: ATTEND Internal Medicine Gastroenterology
PROC: 30233N1 Transfusion of Nonautologous Red Blood Cells into Peripheral Vein, Percutaneous Approach (ICD-10-PCS; principal; 2019-01-20)
DX: D64.9 Anemia, unspecified (principal); K74.60 Unspecified cirrhosis of liver; Z88.0 Allergy status to penicillin; Z88.2 Allergy status to sulfonamides; Z88.5 Allergy status to narcotic agent; Z91.018 Allergy to other foods
CPT/HCPCS: 36415; 36430; 85025; 86850; 86900; 86901; P9016

== ENCOUNTER 2019-01-24 23:36 | Inpatient (IN) | payer OTHER ==
[2019-01-25 00:12] LABS: Hemoglobin 8.3 g/dL (12.0-16.0); Mean Corpuscular HGB CONC 32.7 g/dL (32.0-36.0); Mean Corpuscular Hemoglobin 31.7 pg (27.0-31.0); Mean Corpuscular Volume 96.8 fL (78.0-98.0); Mean Platelet Volume 7.1 fL (7.4-10.4); Platelet Count 130 thou/uL (130-400); RBC Distribution Width 15.2 % (11.5-14.5); Red Blood Cell (RBC) Count 2.62 mill/uL (4.20-5.40); White Blood Cell (WBC) Count 6.6 thou/uL (4.8-10.8)
[2019-01-25 00:13] LABS: INR-International Normal Ratio 1.3; PTT 38.5 SEC (22.9-36.1); Prothrombin Time 16.1 SEC (12.0-14.7)
[2019-01-25 00:26] LABS: Band 6 % (5-11); Lymphocytes 12 % (21-51); MDiff Complete? YES; Monocytes 3 % (0-10); Neutrophil 79 % (42-75)
[2019-01-25 00:28] LABS: ALT (SGPT) 19 U/L (8-55); AST (SGOT) 33 U/L (5-34); Albumin 2.5 g/dL (3.5-5.0); Alkaline Phosphatase 107 U/L (40-150); Anion Gap 12 mmol/L (10-20); BUN (Urea Nitrogen) 20 mg/dL (9.8-20.1); Bilirubin, Total 1.8 mg/dL (0.2-1.2); Calc. Creatinine Clearance 0 mL/min (70-130); Calcium 8.3 mg/dL (7.8-10.44); Carbon Dioxide 22 mmol/L (22-29); Chloride 97 mmol/L (98-107); Estimated GFR-MDRD 47; Globulin 2.7 g/dL (2.4-3.5); Glucose 169 mg/dL (70-105); Potassium 4.4 mmol/L (3.5-5.1); Protein, Total 5.2 g/dL (6.0-8.3); Sodium 127 mmol/L (136-145)
[2019-01-25] MEDS ORDERED: Pantoprazole 40 MG VIAL ONE (01:22)
--- NOTE | 2019-01-25 01:53 | PDOC.FPRHP ---
- History of Present Illness Chief Complaint: Vomiting blood History of Present Illness: This is a 53 yo female with a pmh of Cirrhosis, esophageal varices, GERD, asthma who presents to the ED with a cc of vomiting blood x1 at 2230 last night. She denies chest pain, SOB, abdominal pain, or dizziness. She does report increased ascites and states she has the fluid drained every 2 weeks. She states she was recently discharged on 12/27 for the same diagnosis. Pt denies confusion, weakness, or easy bleeding. ED Course: Protonix 80 mg IV - Allergies/Adverse Reactions Allergies Allergy/AdvReac Type Severity Reaction Status Date / Time codeine Allergy Verified 01/24/19 13:18 morphine Allergy Verified 01/24/19 13:18 Penicillins Allergy vomiting Verified 01/24/19 13:18 silver Allergy Verified 01/24/19 13:18 [From Tegaderm AG Mesh] Sulfa (Sulfonamide Allergy Verified 01/24/19 13:18 Antibiotics) persimmon Allergy Uncoded 01/10/19 12:20 - Home Medications Medication Instructions Recorded Confirmed Type busPIRone HCl [Buspar] 10 mg PO BID 06/08/15 01/25/19 History Albuterol Sulfate [Proair HFA] 2 puff INH Q4HR PRN 10/20/17 01/25/19 History Loratadine [Claritin] 10 mg PO HS 10/20/17 01/25/19 History Iron,Carbonyl [Perfect Iron] 65 mg PO TID 12/15/17 01/25/19 History Mometasone Furoate [Nasonex] 2 spray EA NARE DAILY PRN 04/20/18 01/25/19 History Lactulose [Kristalose] 2 pack PO BID 11/09/18 01/25/19 History traMADol HCl [Tramadol HCl] 50 mg PO BID 11/17/18 01/25/19 History Esomeprazole Magnesium [NexIUM] 40 mg PO DAILY 11/18/18 01/25/19 History Furosemide [Lasix] 40 mg PO DAILY 12/25/18 01/25/19 History Rifaximin [Xifaxan] 550 mg PO BID 12/25/18 01/25/19 History Pantoprazole [Protonix] 40 mg PO BID 14 Days #28 tab 12/27/18 01/25/19 Rx Cyclobenzaprine [Flexeril] 10 mg PO TID PRN 01/10/19 01/25/19 History Spironolactone [Aldactone] 100 mg PO DAILY 01/10/19 01/25/19 History clonazePAM [Clonazepam] 1 mg PO BID 01/10/19 01/25/19 History Cyanocobalamin (Vitamin B-12) 2,000 mcg PO DAILY 01/25/19 01/25/19 History [Vitamin B12] Magnesium Amino Acid Chelate 100 mg PO DAILY 01/25/19 01/25/19 History [Magnesium] - History PMHx: esophageal varices, gerd, ashtma, cirrhosis, anxiety, depression PSHx: esophageal varices repair, cholecystectomy, c section x3, TIPS procedure FHx: noncontributory Social:Denies drug and alcohol, reports tobacco use - Review of Systems General: reports: fatigue. denies: fever/chills, weight/appetite/sleep changes , night sweats ENT: denies: nasal congestion, rhinorrhea Respiratory: denies: cough, shortness of breath Cardiovascular: reports: edema. denies: chest pain, palpitation Gastrointestinal: reports: nausea, vomiting, GI bleeding. denies: diarrhea, constipation, abdominal pain Genitourinary: denies: incontinence, dysuria Skin: reports: jaundice, other Musculoskeletal: denies: pain, tenderness Neurological: denies: numbness, syncope Psychological: denies: anxiety, depression - Vital signs BP: [] HR: [] RR: [] Tmax: [] Pox: []% on [] Wt: [] - Physical Exam Constitutional: NAD, awake, alert and oriented HEENT: normocephalic and atraumatic, PERRLA, EOMI, MMM, oropharynx clear, other (scleral icterus) Neck: trachea midline, other (JVD) Heart: RRR, normal S1/S2, no murmurs/rubs/gallops, pulses present, other (2+ pitting edema to hips) Lungs: no respiratory distress, no retractions, other (Crackles at bases) Abdomen: soft, bowel sounds present, other (distended, fluid wave) Musculoskeletal: ROM grossly normal, other (no asterixis) Neurological: CN II-XII intact Skin: good turgor, capillary refill <2 seconds Heme/Lymphatic: other (jaundice, spider nevi) FMR H&P: Results - Labs Result Diagrams: 01/25/19 05:19 01/24/19 23:58 Lab results: WBC 6.6 thou/uL (4.8-10.8) 01/24/19 23:58 Hgb 8.3 g/dL (12.0-16.0) L 01/24/19 23:58 Hct 25.4 % (36.0-47.0) L 01/24/19 23:58 MCV 96.8 fL (78.0-98.0) 01/24/19 23:58 Plt Count 130 thou/uL (130-400) 01/24/19 23:58 Band Neuts % (Manual) 6 % (5-11) 01/24/19 23:58 Sodium 127 mmol/L (136-145) L 01/24/19 23:58 Potassium 4.4 mmol/L (3.5-5.1) 01/24/19 23:58 Chloride 97 mmol/L (98-107) L 01/24/19 23:58 Carbon Dioxide 22 mmol/L (22-29) 01/24/19 23:58 BUN 20 mg/dL (9.8-20.1) 01/24/19 23:58 Creatinine 1.20 mg/dL (0.6-1.1) H 01/24/19 23:58 Glucose 169 mg/dL (70-105) H 01/24/19 23:58 Calcium 8.3 mg/dL (7.8-10.44) 01/24/19 23:58 Total Bilirubin 1.8 mg/dL (0.2-1.2) H 01/24/19 23:58 AST 33 U/L (5-34) 01/24/19 23:58 ALT 19 U/L (8-55) 01/24/19 23:58 Alkaline Phosphatase 107 U/L (40-150) 01/24/19 23:58 Serum Total Protein 5.2 g/dL (6.0-8.3) L 01/24/19 23:58 Albumin 2.5 g/dL (3.5-5.0) L 01/24/19 23:58 - Radiology Interpretation Chest x-ray Status: report reviewed by me (No acute cardio pulmonary disease) FMR H&P: A/P - Problem List (1) Anemia Current Visit: No Status: Acute Code(s): D64.9 - ANEMIA, UNSPECIFIED (2) Hematemesis Current Visit: No Status: Acute Code(s): K92.0 - HEMATEMESIS (3) CKD (chronic kidney disease) stage 3, GFR 30-59 ml/min Current Visit: No Status: Chronic Code(s): N18.3 - CHRONIC KIDNEY DISEASE, STAGE 3 (MODERATE) (4) Cirrhosis of liver with ascites Current Visit: No Status: Chronic Code(s): K74.60 - UNSPECIFIED CIRRHOSIS OF LIVER Comment: SPENCER with recurrent ascites, plan for US guided paracentesis in am, GI consult pending. (5) DM type 2 (diabetes mellitus, type 2) Current Visit: No Status: Chronic - Plan This is a 53 yo female with a pmh of CKD3, HTN, cirrhosis, GERD, end stage liver disease Hematemesis, likely 2/2 bleeding gastric antral ectasias -Admit to medical -Consult GI in the morning for EGD for evaluation of stomach and upper GI tract -Hgb Stable 9.1 on last admission, 8.3 at this admission -Starting IV protonix and rocephin for gastric and SBP prophylaxis respectively -Repeat Hgb to assess for blood loss Hypnatremia -Likely hypotonic, will work up if does not trend up CKD3 -Monitor HTN -Continue home medicines Cirrhosis -Pt to follow up outpt with GI regarding continued paracentesis End state liver disease, as above Code: Full Prophylaxis: Protonix and rocephin Family: none at bedside Disposition: DC in 2-3 days PCP: CARLY Coughlin FMR H&P: Upper Level - Plan Date/Time: 01/25/19 0151 Katt Alfaro MD, have evaluated this patient and agree with findings/plan as outlined by electrical intern resident. Pertinent changes/additions are listed here. 53 y/o F w/ PMHx of Liver failure and recent hospitalization for UGIB 2/2 gastric ectasias requiring cauterization in 11/2018 presents to the ER for eval of 1 episode of vomitting up approx. 1 handful of bright red blood earlier tonight around 2330. Pt reports she has vomitting 1 more time since then, but it was just mucous. Notes she got 2 units of blood this past Wednesday. Was due to paracentesis today, which she gets every two weeks, but did not get it done. Denies any abdominal pain/fever. Vitals per electrical intern note Hgb - 8.3 (9.1 from 01/20) Na - 127 Chl - 97 Exam - Abdomen distended w/ + fluid wave. Non-TTP. 53 y/o F w/: 1) Upper GI Bleed likely 2/2 vascular etasias - Pt w/ almost 1 point drop in her hgb from last check on 01/20 - Currently hemodynamically stable and no continued bleeding other than the one episode described above. Likely w/ slow ooze and not acute hemorrhage. Will go ahead and type and screen so blood is available if needed - Cont. w/ IV protonix started in the ER and will plan to consult GI in the AM for likely EGD - Repeat Hgb q6 hrs as long as vitals are stable - Will start on IV Rocephin for SBP ppx 2) Hyponatremia - Serum Osm 271 pointing toward hypotonic hyponatremia - Likely 2/2 notes ascites on exam in setting of liver failure and low effective arterial blood volume - Will continue to monitor and check urine sodium for futher eval 3) Other chronic medical problems per electrical intern note Addendum - Attending - Attending Attestation Date/Time: 01/25/19 3242 I personally evaluated the patient and discussed the management with Dr. Rooney /Norma. I agree with the History, Examination, Assessment and Plan documented above with any addition or exceptions noted below. Patient with history of gastric estasia that has required frequent ablation by GI over the last few months presenting with hematemesis and new onset dark stools over the last few days. She had vomiting x1 and none since. Blood counts stable. She has visible ascites and fluid wave, no tenderness. Will admit for suspected UGIB 2/2 gastric ectasias. Protonix, Rocephin for SBP ppx, trend H/H. Consult GI. Further mgmt per their recs.
[2019-01-25] MEDS ORDERED: Ondansetron PF 4 MG/2 ML Vial IVP PRN (04:24)
[2019-01-25] MEDS ORDERED: Ondansetron ODT 4 MG TAB SL PRN (04:24)
[2019-01-25] MEDS ORDERED: Sodium Chloride 0.9% (PF) 10 ML VIAL FS PRN (04:25)
[2019-01-25 04:28] VITALS: BMI 39.5
[2019-01-25] MEDS: cefTRIAXone\\ROCEPHIN 2 GM in Sodium Chloride 0.9% 100 ML IVPB SCH (05:42)
[2019-01-25 06:41] LABS: #Eosinphils 0.2 thou/uL (0.0-0.7); #Lymphocytes 0.8 thou/uL (1.20-3.40); #Monocytes 0.8 thou/uL (0.11-0.59); #Neutrophils 4.2 thou/uL (1.40-6.50); %Basophils 0.6 % (0.0-1.0); %Eosinophils 3.4 % (0.0-10.0); %Lymphocytes 13.6 % (21.0-51.0); %Monocytes 13.3 % (0.0-10.0); Hemoglobin 7.8 g/dL (12.0-16.0); Mean Corpuscular HGB CONC 32.9 g/dL (32.0-36.0); Mean Corpuscular Hemoglobin 31.6 pg (27.0-31.0); Mean Corpuscular Volume 95.8 fL (78.0-98.0); Mean Platelet Volume 7.2 fL (7.4-10.4); Platelet Count 106 thou/uL (130-400); RBC Distribution Width 15.1 % (11.5-14.5); Red Blood Cell (RBC) Count 2.47 mill/uL (4.20-5.40)
[2019-01-25] MEDS: Pantoprazole 40 MG VIAL IVP SCH ×2 (07:55→20:18)
--- NOTE | 2019-01-25 09:04 | RAD ---
SINGLE VIEW OF THE CHEST: COMPARISON: 05/02/2018. HISTORY: Vomiting blood and abdominal pain. FINDINGS: Single view of the chest shows a normal sized cardiomediastinal silhouette. There is no evidence of c onsolidation, mass, or pleural effusion. The bones are unremarkable. IMPRESSION: No evidence of acute cardiopulmonary disease. POS: [facility]
[2019-01-25] MEDS: Furosemide 40 MG/4 ML VIAL SLOW IVP SCH (19:26)
[2019-01-25] MEDS: Rifaximin 550 MG TAB PO SCH (20:19)
[2019-01-25] MEDS ORDERED: PROVENTIL INHALER 6.7 G (200 INHALATIONS) INH PRN (21:41)
--- NOTE | 2019-01-26 01:15 | CON ---
DATE OF CONSULTATION: REASON FOR CONSULT: Hematemesis. HISTORY OF PRESENT ILLNESS: Ms. Gonzalez was admitted last night. I was called this afternoon about her. Apparently, she was doing some coughing at home and some sinus issues when she threw up a little bit of bright red blood. It was enough to get her attention, but did not recur. She attributes it to the heavy coughing she was doing. She had no further vomiting and no melena or hematochezia. She came to the emergency room. She was stable. With her history of cirrhosis and bleeding in the past, it was decided to admit her to the hospital. Her hemoglobin was 8.3, it had been 9.1 on 01/20. She did have a transfusion on 12/26 for a hemoglobin of 6.8. She has been transfused since that time. She denies any fever or chills. She denies any dysuria, frequency, or urgency. She does state she missed her paracentesis yesterday. No history of NSAID use. PAST MEDICAL HISTORY: 1. 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 She has been evaluated in [facility] for liver transplant evaluation. However, she refused evaluation previously. She was given TIPS to help manage her refractory ascites, but it was not really effective and she still had a paracentesis. She recently was having more problems with anemia and requiring transfusions. This was most prominent in August, September and October of this year. She had to be transfuse several times. She had endoscopy showing severe portal hypertensive gastropathy, which we really could not get that controlled even with argon plasma coagulation. Ultimately, I sent her back to [place] and they revised her TIPS and since that time she has required very little in the way of transfusion. Her platelet counts have been higher as was her hemoglobin. The TIPS was performed in the very first weeks of December. Her last transfusion has been 12/26. She was going to go to the hospital and get a transfusion on 01/20 for low hemoglobin in our office, but on repeat it was 9.1. 2. The patient has issues with hepatic encephalopathy. 3. Refractory ascites. 4. COPD. PAST SURGICAL HISTORY: Multiple upper and lower endoscopies as noted above, previous TIPS procedure x2. The most recent in the beginning of December. FAMILY HISTORY: Negative for cirrhosis or GI malignancies. SOCIAL HISTORY: She smokes intermittently. She does not drink. ALLERGIES: CODEINE, MORPHINE, PENICILLIN, SULFA. MEDICATIONS: At home: 1. Tramadol. 2. Clonazepam. 3. BuSpar. 4. Aldactone. 5. Xifaxan. 6. Protonix. 7. Nasonex. 8. Magnesium. 9. Claritin. 10. Kristalose. 11. Iron. 12. Lasix 40 daily. 13. Aldactone 100 day. 14. Flexeril. 15. B12. 16. Advair. Active medications here: 1. Rocephin. 2. Protonix 40 IV q.12. PHYSICAL EXAMINATION: GENERAL: She is resting comfortably in bed. She has gross anasarca and edema. She has no distress. She is mildly icteric. She has no asterixis. VITAL SIGNS: Pulse 103-106, temperature 98, blood pressure 107/55. LUNGS: Clear. Decreased breath sounds at the bases. HEART: Regular rate and rhythm without clicks or murmurs. ABDOMEN: Protuberant and tight. EXTREMITIES: Reveal no clubbing or cyanosis, but significant pitting edema. NEUROLOGIC: She has no asterixis on neurologic exam and is nonfocal. LABORATORY STUDIES: As per HPI, in addition to that, her platelet count is right around 100 now. Recent hepatoma screening has been normal. White count 6, hemoglobin 7.8, platelet count 106, it was 130 yesterday. INR 1.3 on 01/24. Sodium 127, potassium 4.4, BUN and creatinine of 20 and 1.2, glucose 169. Bilirubin 1.8. AST and ALT 33 and 19. Albumin is 2.5. ASSESSMENT: 1. Hematemesis, likely self-limited related to coughing. She has had issues with severe portal hypertensive gastropathy recently, but no varices. She recently had a transjugular intrahepatic portosystemic shunt revision, which has resulted in abatement in her transfusion requirements and elevation in her platelet count. At this time, I think her bleeding is not clinically significant and probably is more related to her coughing. It was a one time episode and has not returned. Her hemoglobin is stable. Did not plan on an intervening endoscopy at this time. 2. Ascites. She is due to be tapped, has not been tapped in 2 weeks. Even with revision of her transjugular intrahepatic portosystemic shunt, she has continued to require diuretics and paracentesis and I suspect she will throughout the rest of her life, this is refractory ascites. 3. End-stage liver disease. She has had encephalopathy and refractory ascites and bleeding. She understands that her life span is limited in the setting of. She is contemplating, trying to be relisted for liver transplant at the [facility] in [place]. In the past, she could not be compliant with followups or get there for visits and opted not to go through that. Presently, she is not on a transplant list. RECOMMENDATIONS: 1. I agree with empiric antibiotics for GI bleeding in the setting of cirrhosis. 2. We will continue Protonix. 3. We will start a liquid diet. 4. We will arrange for paracentesis tomorrow and start her diuretics. 5. We will go and place her on her Xifaxan for hepatic encephalopathy. 6. We would try to recommend her instructor or primary physician about weaning off all the benzodiazepines and muscle relaxants that she is on the outpatient setting. These will only worsen encephalopathy. Job ID: [id number]
[2019-01-26] MEDS ORDERED: traMADol HCl 50 MG TAB PO SCH (02:30)
[2019-01-26] MEDS: cefTRIAXone\\ROCEPHIN 2 GM in Sodium Chloride 0.9% 100 ML IVPB SCH (05:26)
[2019-01-26] MEDS ORDERED: Sodium Chloride 0.9% 10 ML ONE (06:36)
[2019-01-26] MEDS ORDERED: Thrombin 5000 UNITS/5 ML VIAL ONE (06:36)
--- NOTE | 2019-01-26 06:40 | PDOC.FM ---
- Subjective Subjective: Pt reports feeling better than on admission, no nausea/vomiting, no fever/ chills. - Objective Vital Signs & Weight: Vital Signs (12 hours) Temp Pulse Resp BP Pulse Ox 01/26/19 03:35 97.7 F 104 H 18 109/65 98 01/25/19 21:00 97.4 F L 74 18 182/79 H 96 01/25/19 20:09 100 Weight Admit Weight 107.819 kg Weight 107.819 kg I&O: 01/24/19 01/25/19 01/26/19 06:59 06:59 06:59 Intake Total 240 Balance 240 Result Diagrams: 01/26/19 07:04 01/26/19 07:04 Phys Exam - Physical Examination Constitutional: NAD HEENT: moist MMs scleral icteris Neck: no JVD, supple Respiratory: no wheezing, clear to auscultation bilateral Cardiovascular: RRR, no significant murmur Gastrointestinal: non-tender, positive bowel sounds Musculoskeletal: no edema, pulses present Neurological: normal sensation, moves all 4 limbs Psychiatric: normal affect, A&O x 3 Skin: no rash, normal turgor Dx/Plan (1) Anemia Code(s): D64.9 - ANEMIA, UNSPECIFIED Status: Acute (2) Hematemesis Code(s): K92.0 - HEMATEMESIS Status: Acute (3) CKD (chronic kidney disease) stage 3, GFR 30-59 ml/min Code(s): N18.3 - CHRONIC KIDNEY DISEASE, STAGE 3 (MODERATE) Status: Chronic (4) Cirrhosis of liver with ascites Code(s): K74.60 - UNSPECIFIED CIRRHOSIS OF LIVER Status: Chronic (5) DM type 2 (diabetes mellitus, type 2) Status: Chronic (6) Depression Code(s): F32.9 - MAJOR DEPRESSIVE DISORDER, SINGLE EPISODE, UNSPECIFIED Status : Chronic (7) GERD (gastroesophageal reflux disease) Code(s): K21.9 - GASTRO-ESOPHAGEAL REFLUX DISEASE WITHOUT ESOPHAGITIS Status: Chronic (8) HTN (hypertension) Code(s): I10 - ESSENTIAL (PRIMARY) HYPERTENSION Status: Chronic (9) History of tobacco abuse Code(s): Z87.891 - PERSONAL HISTORY OF NICOTINE DEPENDENCE Status: Chronic (10) Hyponatremia Code(s): E87.1 - HYPO-OSMOLALITY AND HYPONATREMIA Status: Chronic - Plan Plan: Hematemesis A- not clinically significant per GI, possibly 2/2 trauma from coughing fit prior to presentation, Hgb Stable 9.1 on last admission, 8.3 at this admission at presentation ->-> 7.3. EGD not necessary at this time. no vomiting since admission P- continue protonix -monitor H/H -f/u GI recs pending dispo Ascites 2/2 end stage liver disease A- GI is consulted recs much appreciated, pt is not currently on liver transplant list 2/2 non compliance with f/u appts P- Paracentesis today -home xifaxan -wean benzos and muscle relaxants as tolerated in outpt setting to reduce encephalopathy Anemia A- chronic, hgb decreased since admission, possible hemodilution considering the rest of CBC P- monitor H/H Hypnatremia -Likely hypotonic, improved, will monitor CKD3 -Monitor HTN -Continue home medicines Anxiety -home meds, weaning clonazepam Code: Full PCP: CARLY Coughlin Addendum - Attending - Attending Attestation Date/Time: 01/26/19 1111 I personally evaluated the patient and discussed the management with Dr. Cabello. I agree with the History, Examination, Assessment and Plan documented above with any addition or exceptions noted below. Patient doing improved. GI evaluated and saw no need for EGD. She has had escalation of diuretic therapy and is going for IR paracentesis today. Hyponatremia somewhat improved. Hgb has downtrended but above 7. She is tolerated diet well. Consider discharge with further outpatient follow up if cleared by GI.
[2019-01-26] MEDS: Furosemide 40 MG/4 ML VIAL SLOW IVP SCH ×2 (07:14→18:00)
[2019-01-26 07:35] LABS: Hemoglobin 7.3 g/dL (12.0-16.0); Mean Corpuscular Hemoglobin 32.8 pg (27.0-31.0); Mean Corpuscular Volume 96.3 fL (78.0-98.0); Mean Platelet Volume 7.4 fL (7.4-10.4); Platelet Count 100 thou/uL (130-400); RBC Distribution Width 15.2 % (11.5-14.5); Red Blood Cell (RBC) Count 2.22 mill/uL (4.20-5.40); White Blood Cell (WBC) Count 3.2 thou/uL (4.8-10.8)
[2019-01-26 07:57] LABS: Anion Gap 10 mmol/L (10-20); BUN (Urea Nitrogen) 19 mg/dL (9.8-20.1); Calc. Creatinine Clearance 99 mL/min (70-130); Calcium 7.8 mg/dL (7.8-10.44); Carbon Dioxide 23 mmol/L (22-29); Chloride 99 mmol/L (98-107); Estimated GFR-MDRD 50; Glucose 111 mg/dL (70-105); Potassium 3.6 mmol/L (3.5-5.1); Sodium 128 mmol/L (136-145)
[2019-01-26] MEDS ORDERED: Spironolactone 100 MG TAB PO SCH (08:00)
[2019-01-26 08:17] LABS: Band 1 % (5-11); Eosinophils 6 % (0-10); Lymphocytes 22 % (21-51); MDiff Complete? YES; Monocytes 16 % (0-10); Myelocyte 1 % (0-0); Neutrophil 53 % (42-75); Platelet Morphology Comment Appears Decreased; Polychromasia SLIGHT = 2-3 cells (100X) (0-2/hpf)
[2019-01-26] MEDS ORDERED: clonazePAM 1 MG TAB PO PRN (08:56)
[2019-01-26] MEDS ORDERED: Magnesium Amino Acid Chelate [Magnesium] 100 MG PO SCH (09:00)
[2019-01-26] MEDS ORDERED: clonazePAM 1 MG TAB PO SCH (09:00)
[2019-01-26] MEDS ORDERED: Fluticasone Propionate Nasal Spray 16 gm Bottle NASAL PRN (09:00)
[2019-01-26] MEDS ORDERED: Cyanocobalamin (Vitamin B-12) 1,000 MCG TAB PO SCH (09:00)
[2019-01-26] MEDS: busPIRone HCl 10 MG TAB PO SCH ×2 (09:11→21:25)
[2019-01-26] MEDS: Ferrous Sulfate 325 MG TAB PO SCH ×3 (09:11→21:25)
[2019-01-26] MEDS: traMADol HCl 50 MG TAB PO SCH ×2 (09:12→21:25)
[2019-01-26] MEDS: Rifaximin 550 MG TAB PO SCH ×2 (09:13→21:25)
[2019-01-26] MEDS ORDERED: Cyclobenzaprine 10 MG TAB PO PRN ×2 (10:38→10:40)
[2019-01-26 14:59] LABS: BF Color Yellow; BF RBC Count - Manual 93 /cumm; BF WBC/Nonhematics Ct. - Manua 26 /cumm; Body Fluid Source Paracentesis Fluid; Clarity Hazy (Clear); Tube # EDTA
[2019-01-26 15:06] VITALS: BP 113/57; TEMP 98.3
--- NOTE | 2019-01-26 15:07 | ULT ---
Exam: Ultrasound guided paracentesis HISTORY: Ascites COMPARISON: Prior exam dated January 11, 2019 FINDINGS: Successful ultrasound-guided paracentesis. Total of 7 L of normal appearingascites was aspi rated. TECHNIQUE: Consent obtained reformatory ultrasound-guided paracentesis. Left lower quadrantwas deemed appropriate. Skin was prepped and draped in a sterile fashion. 1% lidocaine, buffered with sodium bicarbonate was used for local anesthesia. Under ultrasound guidance, a 5 Afghan 7 cm Duck Duck Mooseeh catheter i s advanced in the peritoneal space. A total of 7 L of straw-coloredascites was aspirated. No immediate or postprocedural complications IMPRESSION: Successful ultrasound-guided paracentesis.
[2019-01-26 15:38] LABS: BF Segmented Neutrophils 10 %; Cell Count Non Hematic 75 %; Lymphocytes 14 %
--- NOTE | 2019-01-26 19:36 | PRG ---
DATE OF SERVICE: 01/26/2019 SUBJECTIVE: Ms. Gonzalez had paracentesis today. She feels better. Cell count was less than 100 on that. There were no signs of SBP. She has had no bleeding. No melena, hematemesis, nausea, or vomiting. OBJECTIVE: VITAL SIGNS: Pulse 109, temperature 98, and blood pressure 113/57. LUNGS: Clear. ABDOMEN: Protuberant and nontender. EXTREMITIES: Reveal severe edema. LABORATORY DATA: White count 3.2, hemoglobin 7.3, and platelet count 100. Sodium 128, BUN and creatinine are 19 and 1.15. ASSESSMENT: 1. No evidence of spontaneous bacterial peritonitis. 2. Self-limited hematemesis. This is more of coughing up a little bit of blood when she was coughing hard at home, it is not recurred. 3. Anemia, chronic. History of portal hypertensive gastropathy, status post recent TIPS with no transfusions required since that time and platelet improvement since that time. 4. Refractory ascites. She is not following a low-salt diet. She actually ordered chicken fried steak for dinner. I have talked about this again. RECOMMENDATIONS: 1. She can go home either tonight or tomorrow. She has been a low-salt diet. 2. If she can go home until tomorrow, check a blood count in the morning. 3. When she goes home, she would go back to her regular home dose of diuretics and she has schedule follow up with us in office already. Job ID: [id number]
[2019-01-26] MEDS ORDERED: Loratadine 10 MG TAB PO SCH (21:00)
--- NOTE | 2019-01-27 13:53 | DIS ---
DATE OF ADMISSION: 01/25/2019 DATE OF DISCHARGE: 01/26/2019 RESIDENT: Patrick Cabello MD ADMITTING ATTENDING: Rustam Milner MD DISCHARGE ATTENDING: Javy Toussaint MD CONSULTS: 1. Gastroenterology, Jessee Schmid MD. 2. PT and OT. 3. Palliative care. 4. Case Management. PROCEDURES: 1. On 01/25/2019, chest x-ray; impression, no evidence of acute cardiopulmonary process. 2. Paracentesis on 01/26/2019. PRIMARY DIAGNOSIS: Hematemesis. SECONDARY DIAGNOSES: Ascites secondary to end-stage liver disease, anemia, hyponatremia, chronic kidney disease, hypertension, and anxiety. DISCHARGE MEDICATIONS: 1. Buspirone 10 mg p.o. b.i.d. 2. Albuterol sulfate two puffs inhaled q.4 hours p.r.n. 3. Loratadine 10 mg p.o. at bedtime. 4. Iron 65 mg p.o. t.i.d. 5. Nasonex 2 sprays each naris daily p.r.n. 6. Lactulose 2 packs p.o. b.i.d. 7. Tramadol 50 mg p.o. b.i.d. 8. Xifaxan 550 mg p.o. b.i.d. 9. Spironolactone 100 mg p.o. daily. 10. Magnesium q.8 100 mg p.o. daily. 11. Vitamin B12 of 2000 mcg p.o. daily. 12. Klonopin 1 mg p.o. q.24 hours p.r.n., resumed at home, recommended to wean. 13. Flexeril 10 mg p.o. daily p.r.n., resumed at home, recommended to wean. 14. Protonix 40 mg p.o. b.i.d. 15. Furosemide 40 mg p.o. daily. DISCONTINUED MEDICATIONS: 1. Esomeprazole 40 mg p.o. daily. 2. Flexeril 10 mg p.o. t.i.d. p.r.n. 3. Clonazepam 1 mg p.o. b.i.d. HISTORY OF PRESENT ILLNESS/HOSPITAL COURSE: This is a 53-year-old female with history of end-stage liver disease, who presented to the hospital after one episode of hematemesis following a coughing exacerbation. The patient had GI consult, who recommended no EGD at the time and had low clinical suspicion of varices. 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 It was primarily thought that hematemesis was secondary to coughing episode with patient's allergies. After admission, the patient had no further nausea, vomiting, or cough. Additionally, the patient's hospital stay was complicated for ascites secondary to end-stage liver disease. The patient had been planned to have outpatient paracentesis during hospitalization, but was unable to make her appointment during hospitalization and so patient had paracentesis performed, which came back with no evidence of SBP and so, the patient was discharged home. DISPOSITION: Stable. DISCHARGE INSTRUCTIONS: 1. Location: Home. 2. Activity: As tolerated. 3. Diet: Healthy-heart, low-sodium. 4. Followup: Follow up with Dr. Schmid in 2 to 3 weeks and with [facility] in 3 days. Job ID: [id number]
== END 2019-01-26 21:46 | disposition home or self-care (01) | DRG 433 ==
LOC: ERS 23:36 → 2NO 01-25 04:09
PROVIDERS: ADMIT Family Medicine; ATTEND Family Medicine
PROC: 0W9G30Z Drainage of Peritoneal Cavity with Drainage Device, Percutaneous Approach (ICD-10-PCS; principal; 2019-01-26)
DX: K74.60 Unspecified cirrhosis of liver (principal); R18.8 Other ascites; E87.1 Hypo-osmolality and hyponatremia; I85.00 Esophageal varices without bleeding; K92.0 Hematemesis; K72.90 Hepatic failure, unspecified without coma; K21.9 Gastro-esophageal reflux disease without esophagitis; J45.909 Unspecified asthma, uncomplicated; D64.9 Anemia, unspecified; N18.3 Chronic kidney disease, stage 3 (moderate); E11.22 Type 2 diabetes mellitus with diabetic chronic kidney disease; F41.9 Anxiety disorder, unspecified; Z88.0 Allergy status to penicillin; Z88.5 Allergy status to narcotic agent
CPT/HCPCS: 36415; 49083; 71045; 80048; 80053; 84484; 85025; 85060; 85610; 85730; 86850; 86900; 86901; 89051; 93005; C9113; J0696; J1940; J3490

== ENCOUNTER 2019-02-02 07:33 | Day surgery (SDC) | payer OTHER ==
[2019-02-01 14:33] VITALS: BMI 27.3
[2019-02-02 08:35] LABS: Anion Gap 11 mmol/L (10-20); BUN (Urea Nitrogen) 25 mg/dL (9.8-20.1); Calc. Creatinine Clearance 69 mL/min (70-130); Calcium 8.1 mg/dL (7.8-10.44); Carbon Dioxide 23 mmol/L (22-29); Chloride 93 mmol/L (98-107); Estimated GFR-MDRD 47; Glucose 191 mg/dL (70-105); Potassium 4.1 mmol/L (3.5-5.1); Sodium 123 mmol/L (136-145)
[2019-02-02 10:27] VITALS: BP 116/68; TEMP 98.1
--- NOTE | 2019-02-02 11:46 | ULT ---
Exam: Ultrasound guided paracentesis HISTORY: Ascites COMPARISON: 01/26/2019 FINDINGS: Successful ultrasound-guided paracentesis. Total of 6500 mL of yellow color ascites was asp irated. TECHNIQUE: Consent obtained reformatory ultrasound-guided paracentesis. Right lower quadrant was deem ed appropriate. Skin was prepped and draped in a sterile fashion. 1% lidocaine, buffered with sodium bicarbonate was used for local anesthesia. Under ultrasound guidance, a 5 Sierra Leonean 7 cm Yueh cat heter is advanced in the peritoneal space. A total of 6500 mL of yellow color ascites was aspirated. No immediate or postprocedural complications IMPRESSION: Successful ultrasound-guided paracentesis.
== END 2019-02-02 10:25 | disposition home or self-care (01) ==
LOC: ULT 07:33
PROVIDERS: ATTEND Internal Medicine Gastroenterology
PROC: BW40ZZZ Ultrasonography of Abdomen (ICD-10-PCS; principal; 2019-02-02)
PROC: 0W9G3ZX Drainage of Peritoneal Cavity, Percutaneous Approach, Diagnostic (ICD-10-PCS; principal; 2019-02-02)
DX: K74.60 Unspecified cirrhosis of liver (principal); R18.8 Other ascites; I12.9 Hypertensive chronic kidney disease with stage 1 through stage 4 chronic kidney disease, or unspecified chronic kidney disease; E11.22 Type 2 diabetes mellitus with diabetic chronic kidney disease; N18.9 Chronic kidney disease, unspecified; D63.1 Anemia in chronic kidney disease; J44.9 Chronic obstructive pulmonary disease, unspecified; K21.9 Gastro-esophageal reflux disease without esophagitis; M19.90 Unspecified osteoarthritis, unspecified site; F41.9 Anxiety disorder, unspecified; F32.9 Major depressive disorder, single episode, unspecified; G93.40 Encephalopathy, unspecified; Z87.891 Personal history of nicotine dependence; Z88.5 Allergy status to narcotic agent; Z88.0 Allergy status to penicillin; Z88.2 Allergy status to sulfonamides; Z88.8 Allergy status to other drugs, medicaments and biological substances; Z91.018 Allergy to other foods; Z79.2 Long term (current) use of antibiotics; Z79.899 Other long term (current) drug therapy
CPT/HCPCS: 36415; 49083; 80048; 82042; 84157

== ENCOUNTER 2019-02-07 08:11 | Day surgery (SDC) | payer OTHER ==
[2019-02-06 15:16] VITALS: BMI 27.3
[2019-02-07] MEDS ORDERED: Sodium Bicarbonate 2.5 MEQ/5 ML VIAL ONE (08:28)
[2019-02-07 09:03] LABS: Anion Gap 12 mmol/L (10-20); BUN (Urea Nitrogen) 24 mg/dL (9.8-20.1); Calc. Creatinine Clearance 57 mL/min (70-130); Carbon Dioxide 22 mmol/L (22-29); Chloride 93 mmol/L (98-107); Estimated GFR-MDRD 37; Glucose 195 mg/dL (70-105); Potassium 4.8 mmol/L (3.5-5.1); Sodium 122 mmol/L (136-145)
[2019-02-07] MEDS ORDERED: Albumin 25% 200 ML ONE (09:42)
--- NOTE | 2019-02-07 11:03 | ULT ---
Sonographic guided paracentesis HISTORY: Recurrent ascites. FINDINGS: After explaining the procedure and answering all questions, sonographic survey shows large amount of free fluid throughout the abdomen. Sterile technique, buffered local anesthesia, sonographic guidance, and a right lower quadrant approach were used to carefully advance the tip of a 19-gauge Yueh needle and catheter into the free fluid. The catheter was left to drain a total volume of 7.0 L cloudy yellow liquid. Catheter was removed showing small amount of residual fluid. Abhijeet alina tolerated the procedure well and was dismissed in good condition. IMPRESSION: Technically successful sonographic guided paracentesis.
[2019-02-07 12:04] VITALS: BP 127/66; TEMP 98.1
== END 2019-02-07 11:00 | disposition home or self-care (01) ==
LOC: ULT 08:11
PROVIDERS: ATTEND Internal Medicine Gastroenterology
PROC: BW40ZZZ Ultrasonography of Abdomen (ICD-10-PCS; principal; 2019-02-07)
PROC: 0W9G3ZZ Drainage of Peritoneal Cavity, Percutaneous Approach (ICD-10-PCS; principal; 2019-02-07)
DX: K74.60 Unspecified cirrhosis of liver (principal); R18.8 Other ascites; I12.9 Hypertensive chronic kidney disease with stage 1 through stage 4 chronic kidney disease, or unspecified chronic kidney disease; E11.22 Type 2 diabetes mellitus with diabetic chronic kidney disease; N18.9 Chronic kidney disease, unspecified; D64.9 Anemia, unspecified; F17.200 Nicotine dependence, unspecified, uncomplicated; F41.9 Anxiety disorder, unspecified; F32.9 Major depressive disorder, single episode, unspecified; G89.29 Other chronic pain; J44.9 Chronic obstructive pulmonary disease, unspecified; K21.9 Gastro-esophageal reflux disease without esophagitis; M19.90 Unspecified osteoarthritis, unspecified site; M54.9 Dorsalgia, unspecified; Z88.0 Allergy status to penicillin; Z88.2 Allergy status to sulfonamides; Z88.6 Allergy status to analgesic agent; Z88.8 Allergy status to other drugs, medicaments and biological substances
CPT/HCPCS: 36415; 49083; 80048; P9047

== ENCOUNTER 2019-02-09 12:49 | Outpatient (CLI) | payer OTHER | END 2019-02-09 12:50 | disposition home or self-care (01) | LOC: ULT 12:49 | PROVIDERS: ATTEND Physician Assistant Medical | DX: K74.60 Unspecified cirrhosis of liver (principal); R18.8 Other ascites; I08.3 Combined rheumatic disorders of mitral, aortic and tricuspid valves | CPT/HCPCS: 93306 ==

== ENCOUNTER 2019-02-10 09:27 | Inpatient (IN) | payer OTHER ==
[2019-02-10 10:44] LABS: ALT (SGPT) 22 U/L (8-55); AST (SGOT) 45 U/L (5-34); Albumin 2.7 g/dL (3.5-5.0); Alkaline Phosphatase 105 U/L (40-150); Anion Gap 12 mmol/L (10-20); BUN (Urea Nitrogen) 27 mg/dL (9.8-20.1); Bilirubin, Total 1.2 mg/dL (0.2-1.2); Calc. Creatinine Clearance 0 mL/min (70-130); Calcium 8.2 mg/dL (7.8-10.44); Carbon Dioxide 22 mmol/L (22-29); Chloride 94 mmol/L (98-107); Estimated GFR-MDRD 40; Globulin 2.1 g/dL (2.4-3.5); Glucose 170 mg/dL (70-105); Lipase 30 U/L (8-78); Potassium 4.9 mmol/L (3.5-5.1); Protein, Total 4.8 g/dL (6.0-8.3); Sodium 123 mmol/L (136-145)
[2019-02-10 11:04] LABS: Mean Corpuscular HGB CONC 34.8 g/dL (32.0-36.0); Mean Corpuscular Hemoglobin 33.8 pg (27.0-31.0); Mean Corpuscular Volume 97.2 fL (78.0-98.0); Mean Platelet Volume 6.8 fL (7.4-10.4); Platelet Count 106 thou/uL (130-400); RBC Distribution Width 14.5 % (11.5-14.5); Red Blood Cell (RBC) Count 1.78 mill/uL (4.20-5.40); White Blood Cell (WBC) Count 4.8 thou/uL (4.8-10.8)
[2019-02-10 11:17] LABS: Band 6 % (5-11); Eosinophils 1 % (0-10); Lymphocytes 16 % (21-51); MDiff Complete? YES; Metamyelocyte 2 % (0-0); Monocytes 9 % (0-10); Neutrophil 66 % (42-75); Platelet Morphology Comment Appears Decreased; Polychromasia SLIGHT = 2-3 cells (100X) (0-2/hpf)
--- NOTE | 2019-02-10 11:24 | PDOC.FPRHP ---
- History of Present Illness Chief Complaint: weakness History of Present Illness: 53yo F with PMH of liver cirrhosis 2/2 NAFLD presents with several week hx of worsening weakness and fatigue. Pt feels that she has been looking more pale. Pt has also had cough. No nausea no vomiting, endorses intermittent black stools x2 weeks, no sachin blood. Her most recent hospitalization was for 1 episode of hematuria which was thought to be 2/2 cough trauma to throat and swallowing blood. her DC Hgb was 7.3 at the end of December 2018. Pt follows with Dr. Schmid and gets paracenteses qweekly on Tuesdays. She has hx of esophageal varices (s.p banding 2009 and 2011 per pt) and is also s/p TIPS procedure. Her last EGD was 12/25/2018 showed gastric ectasia and duodenal AVM. ED Course: 1u PRBC - Allergies/Adverse Reactions Allergies Allergy/AdvReac Type Severity Reaction Status Date / Time codeine Allergy Verified 02/07/19 11:51 morphine Allergy Verified 02/07/19 11:51 Penicillins Allergy vomiting Verified 02/07/19 11:51 silver Allergy Verified 02/07/19 11:51 [From Tegaderm AG Mesh] Sulfa (Sulfonamide Allergy Verified 02/07/19 11:51 Antibiotics) persimmon Allergy Uncoded 02/07/19 11:51 - Home Medications Medication Instructions Recorded Confirmed Type busPIRone HCl [Buspar] 10 mg PO BID 06/08/15 02/10/19 History Albuterol Sulfate [Proair HFA] 2 puff INH Q4HR PRN 10/20/17 02/10/19 History Loratadine [Claritin] 10 mg PO HS 10/20/17 02/10/19 History Iron,Carbonyl [Perfect Iron] 65 mg PO TID 12/15/17 02/10/19 History Mometasone Furoate [Nasonex] 2 spray EA NARE DAILY 04/20/18 02/10/19 History Lactulose [Kristalose] 2 pack PO BID 11/09/18 02/10/19 History traMADol HCl [Tramadol HCl] 50 mg PO TID 11/17/18 02/10/19 History Rifaximin [Xifaxan] 550 mg PO BID 12/25/18 02/10/19 History Spironolactone [Aldactone] 100 mg PO BID 01/10/19 02/10/19 History Cyanocobalamin (Vitamin B-12) 2,000 mcg PO DAILY 01/25/19 02/10/19 History [Vitamin B12] Magnesium Amino Acid Chelate 100 mg PO DAILY 01/25/19 02/10/19 History [Magnesium] Cyclobenzaprine [Flexeril] 10 mg PO DAILY PRN tab 01/26/19 02/10/19 Rx Pantoprazole [Protonix] 40 mg PO BID #28 tab 01/26/19 02/10/19 Rx clonazePAM [Klonopin] 1 mg PO Q24HR PRN tab 01/26/19 02/10/19 Rx Melatonin [Melatonin ER] 10 mg PO HS 02/02/19 02/10/19 History Furosemide [Lasix] 40 mg PO BID 02/07/19 02/10/19 History Promethazine [Phenergan] 25 mg PO Q6HR PRN 02/10/19 02/10/19 History - History PMHx: esophageal varices, stomach ectasia, duodenal AVM, gerd, asthma, cirrhosis 2/2 NAFLD, anxiety, depression PSHx: esophageal varices repair, cholecystectomy, c section x3, TIPS procedure ( w/ revision), tonsils FHx: noncontributory Social: Denies drug and alcohol, 1-2 cigarettes/day CODE: FULL - Review of Systems General: reports: fatigue, other (weakness). denies: fever/chills Eyes: denies: eye pain, vision changes ENT: denies: nasal congestion Respiratory: reports: cough. denies: congestion, shortness of breath Cardiovascular: denies: chest pain, palpitation Gastrointestinal: reports: other (black stools intermittently). denies: nausea , vomiting, diarrhea, constipation, abdominal pain Genitourinary: denies: incontinence, dysuria Skin: denies: rashes, lesions Musculoskeletal: denies: pain, tenderness Neurological: reports: weakness. denies: syncope, seizure Psychological: denies: anxiety, depression - Vital signs BP: 114/60, Pulse: 78, Resp: 16, Temp: 97.8 (Oral), Pain: 8, O2 sat: 100 on Room Air, Time: 02/10/2019 09:38. pili 106kg - Physical Exam Constitutional: NAD, awake, alert and oriented HEENT: EOMI, grossly normal vision, grossly normal hearing Neck: supple, trachea midline Chest: no lesions Heart: RRR, normal S1/S2 Lungs: CTAB, no respiratory distress Abdomen: soft, bowel sounds present, other Musculoskeletal: normal structure, normal tone Neurological: no focal deficit, normal sensation Skin: no rash/lesions, good turgor Heme/Lymphatic: no purpura, no petechia Psychiatric: normal mood and affect, good judgment and insight FMR H&P: Results - Labs Result Diagrams: 02/13/19 04:51 02/13/19 04:51 Lab results: WBC 4.8 thou/uL (4.8-10.8) 02/10/19 10:15 Hgb 6.0 g/dL (12.0-16.0) L 02/10/19 10:15 Hct 17.3 % (36.0-47.0) L 02/10/19 10:15 MCV 97.2 fL (78.0-98.0) 02/10/19 10:15 Plt Count 106 thou/uL (130-400) L 02/10/19 10:15 Band Neuts % (Manual) 6 % (5-11) 02/10/19 10:15 Sodium 123 mmol/L (136-145) L 02/10/19 10:15 Potassium 4.9 mmol/L (3.5-5.1) 02/10/19 10:15 Chloride 94 mmol/L (98-107) L 02/10/19 10:15 Carbon Dioxide 22 mmol/L (22-29) 02/10/19 10:15 BUN 27 mg/dL (9.8-20.1) H 02/10/19 10:15 Creatinine 1.40 mg/dL (0.6-1.1) H 02/10/19 10:15 Glucose 170 mg/dL (70-105) H 02/10/19 10:15 Calcium 8.2 mg/dL (7.8-10.44) 02/10/19 10:15 Total Bilirubin 1.2 mg/dL (0.2-1.2) 02/10/19 10:15 AST 45 U/L (5-34) H 02/10/19 10:15 ALT 22 U/L (8-55) 02/10/19 10:15 Alkaline Phosphatase 105 U/L (40-150) 02/10/19 10:15 Serum Total Protein 4.8 g/dL (6.0-8.3) L 02/10/19 10:15 Albumin 2.7 g/dL (3.5-5.0) L 02/10/19 10:15 Lipase 30 U/L (8-78) 02/10/19 10:15 FMR H&P: A/P - Problem List (1) Anemia Current Visit: No Status: Acute Code(s): D64.9 - ANEMIA, UNSPECIFIED (2) CKD (chronic kidney disease) stage 3, GFR 30-59 ml/min Current Visit: No Status: Chronic Code(s): N18.3 - CHRONIC KIDNEY DISEASE, STAGE 3 (MODERATE) (3) Cirrhosis of liver with ascites Current Visit: No Status: Chronic Code(s): K74.60 - UNSPECIFIED CIRRHOSIS OF LIVER Comment: SPENCER with recurrent ascites, plan for US guided paracentesis in am, GI consult pending. (4) Depression Current Visit: No Status: Chronic Code(s): F32.9 - MAJOR DEPRESSIVE DISORDER , SINGLE EPISODE, UNSPECIFIED (5) HTN (hypertension) Current Visit: No Status: Chronic Code(s): I10 - ESSENTIAL (PRIMARY) HYPERTENSION (6) Hyponatremia Current Visit: No Status: Chronic Code(s): E87.1 - HYPO-OSMOLALITY AND HYPONATREMIA (7) S/P TIPS (transjugular intrahepatic portosystemic shunt) Current Visit: No Status: Chronic (8) Tobacco abuse Current Visit: No Status: Chronic Code(s): Z72.0 - TOBACCO USE Comment: Smoking cessation resources - Plan Symptomatic anemia A- could be 2/2 stomach ectasia or duodenal AVM found on most recent EGD. Hgb has dropped from 9.1 to 6 over the last few weeks. P- pt to get 1uPRBC in ED -h/h 4 hours after infusion -iron, ferritin, TIBC, b12, folate -AM CBCs -GI consult Hyponatremia A- acute on chronic, 123 on presentation, appears to be around 128 at baseline on previous admissions. Pt is asymptomatic. Likely this is 2/2 liver failure P- fluid restrict on diet -monitor AM BMPs -will recheck BMPS q4hr x3 after uPRBC Liver failure with cirrhosis 2/2 NAFLD A- Pt getting paracentesis qWeekly on tuesdays, pt has been compliant and does have LE edema. unclear if this is baseline for her P- Possible additional paracentesis while in hospital -consult GI GERD -home meds, tums prn Anxiety/Depression -home meds, encourage continued weaning of clonazepam CKD3 -MD aware Code: FULL FMR H&P: Upper Level - Pertinent history 53 yo WF PMH Cirrhosis 2/2 NAFLD. Presents with CC of generalized weakness worsening over the past week. Has recently been admitted to the hospital twice for upper GI bleeds due to multiple AVMs in her stomach and duodenum. Called Dr. Schmid's office today and was advised to go to ER for evaluation. Has been getting weekly paracentesis which typically yield 5-7L. ER: labs, type and cross match 1 unit PRBCs. - Pertinent findings Vitals: 105 BP: 98/56, others WNL GEN: NAD CV: mild tachy, regular, no murmur Pulm: CTA- B, normal effort Abd: fluid wave present. Labs: hemoglobin 6.0, platelets 106 - Plan Date/Time: 02/10/19 1123 I, Gary Nayak MD, have evaluated this patient and agree with findings/plan as outlined by data analysis intern resident. Pertinent changes/additions are listed here. 1. Symptomatic anemia 2/2 ESLD vs upper GI bleed: transfuse 1 u PRBC followed by Lasix 40 mg IVP. Check 4 hr post transfusion H&H. Will give additional units as indicated. Check iron studies 2. Hyponatremia: likely 2/2 ESLD. q4hr BMP. Consider adding addition NS to attempt to correct. Patient has been on low salt diet. May need to consider increasing PO salt intake. 3. Cirrhosis 2/2 NAFLD: GI consult. Will await further recommendations. MELD score 24 (19.6% 90 day mortality) Diet: regular, fluid restrict 1200 mL/hr PPx: SCD CODE: FULL Dispo: inpatient, medical <[address] Milner. Addendum - Attending - Attending Attestation Date/Time: 02/13/19 1036 I personally evaluated the patient and discussed the management with Dr. Polk at the time of admission on 02/10/2019. I agree with the History, Examination, Assessment and Plan documented above with any addition or exceptions noted below.
[2019-02-10 11:26] LABS: Bilirubin Negative (Negative); Blood, Urine Negative (Negative); Clarity CLOUDY (Clear); Glucose, Urine (Dipstick) Negative (Negative); Leukocyte Negative (Negative); Nitrite Negative (Negative); Protein, Urine (Dipstick) Negative (Neg-Trace); Specific Gravity, Urine 1.011 (1.002-1.036); Urobilinogen 0.2 mg/dL (0.2-1.0)
[2019-02-10] MEDS ORDERED: Ondansetron PF 4 MG/2 ML Vial IVP PRN (12:55)
[2019-02-10] MEDS ORDERED: Acetaminophen 325 MG TAB PO PRN (12:55)
[2019-02-10] MEDS ORDERED: Ondansetron ODT 4 MG TAB SL PRN (12:55)
[2019-02-10 12:57] VITALS: BMI 35.9
[2019-02-10] MEDS ORDERED: Calcium Carbonate 500 MG ChewTAB PO PRN (12:59)
[2019-02-10] MEDS ORDERED: Furosemide 40 MG/4 ML VIAL SLOW IVP SCH (13:00)
[2019-02-10 15:31] LABS: INR-International Normal Ratio 1.4; PTT 38.1 SEC (22.9-36.1); Prothrombin Time 17.1 SEC (12.0-14.7)
[2019-02-10] MEDS ORDERED: PROVENTIL INHALER 6.7 G (200 INHALATIONS) INH PRN (15:31)
[2019-02-10] MEDS ORDERED: clonazePAM 1 MG TAB PO PRN (15:31)
[2019-02-10 15:40] LABS: Iron 71 ug/dL (50-170); Iron Binding Capacity, Total 224 mcg/dL (265-497)
[2019-02-10 15:41] LABS: Anion Gap 9 mmol/L (10-20); BUN (Urea Nitrogen) 28 mg/dL (9.8-20.1); Calc. Creatinine Clearance 75 mL/min (70-130); Calcium 8.1 mg/dL (7.8-10.44); Carbon Dioxide 23 mmol/L (22-29); Chloride 94 mmol/L (98-107); Estimated GFR-MDRD 39; Glucose 199 mg/dL (70-105); Potassium 4.4 mmol/L (3.5-5.1); Sodium 122 mmol/L (136-145)
[2019-02-10 16:51] LABS: Vitamin B12 Greater than 2000 pg/mL (211-911)
[2019-02-10 18:02] LABS: Anion Gap 9 mmol/L (10-20); BUN (Urea Nitrogen) 27 mg/dL (9.8-20.1); Calc. Creatinine Clearance 72 mL/min (70-130); Calcium 8.1 mg/dL (7.8-10.44); Carbon Dioxide 24 mmol/L (22-29); Chloride 94 mmol/L (98-107); Estimated GFR-MDRD 37; Glucose 184 mg/dL (70-105); Potassium 4.2 mmol/L (3.5-5.1); Sodium 123 mmol/L (136-145)
[2019-02-10] MEDS: busPIRone HCl 10 MG TAB PO SCH (19:51)
[2019-02-10] MEDS: Loratadine 10 MG TAB PO SCH (19:51)
[2019-02-10] MEDS: Furosemide 20 MG TAB PO SCH (19:51)
[2019-02-10] MEDS: Rifaximin 550 MG TAB PO SCH (19:51)
[2019-02-10] MEDS: Spironolactone 100 MG TAB PO SCH (19:53)
[2019-02-10] MEDS ORDERED: MELATONIN 10 MG PO SCH (21:00)
[2019-02-10 22:40] LABS: Anion Gap 11 mmol/L (10-20); BUN (Urea Nitrogen) 28 mg/dL (9.8-20.1); Calc. Creatinine Clearance 76 mL/min (70-130); Calcium 8.3 mg/dL (7.8-10.44); Carbon Dioxide 24 mmol/L (22-29); Chloride 95 mmol/L (98-107); Estimated GFR-MDRD 40; Glucose 156 mg/dL (70-105); Potassium 4.3 mmol/L (3.5-5.1); Sodium 126 mmol/L (136-145)
[2019-02-11 00:11] LABS: Hemoglobin 8.5 g/dL (12.0-16.0)
--- NOTE | 2019-02-11 03:46 | CON ---
DATE OF CONSULTATION: 02/10/2019 REASON FOR CONSULTATION: Cirrhosis with ascites, symptomatic anemia. CONSULTING PHYSICIAN: David Marie MD. HISTORY OF PRESENT ILLNESS: The patient is a 53-year-old female with past medical history of GERD, asthma, anxiety, depression, and cirrhosis secondary to SPENCER versus chronic alcohol use and complicated by lower extremity edema and ascites and esophageal varices, presenting with increased weakness and anemia. She states that since being discharged from the hospital recently. She had been having increased dizziness, pallor and presyncopal type events where she had a sensation that she is going to pass out whenever she stood up. She also endorsed the appearance of dark green almost black stools that have been present from the last 1 to 2 weeks characterized as having approximately 3 to 4 bowel movements per day with solid consistency. She denied any difficulty with defecation nor did she endorse any episodes of hematemesis or overt bright red blood per rectum. However, with her worsening symptoms, she was prompted by [facility] to be advised her to be evaluated in the ER, and while in the ER, she was noted to have a significantly decreased H and H when compared to baseline. She subsequently underwent infusion of PRBCs and was admitted to the hospital for further evaluation. Upon speaking with the patient, she also endorses increased ascites despite having frequent paracenteses with the most recent paracentesis being done on February 07, 2019, with approximately 7 L of fluid removed at that time. She also states that she does have a TIPS in place that was revised on December 28, 2018, where they "had a clear out a lot of clot and stuff" when she was seen at the [facility] in [place]. Otherwise, she denies any nausea, vomiting, fevers, shaking chills, hematemesis, hematochezia, dysphagia, odynophagia, or diarrhea. Of note, her last EGD was performed on December 25, 2018, which showed a significant amount of gastric antral vascular ectasias that were intervened upon with argon plasma coagulation. However, she has had multiple EGDs for this condition in the past. REVIEW OF SYSTEMS: A 10-category review of systems was obtained with all responses negative except for the pertinent positives as listed in HPI. PAST MEDICAL HISTORY: As per HPI. PAST SURGICAL HISTORY: Cholecystectomy, x3, tonsillectomy, TIPS placement and revision and band ligation for esophageal varices. FAMILY HISTORY: Denies any GI malignancies. SOCIAL HISTORY: Denies any alcohol or illicit drug use, but does continue to smoke approximately 1-2 cigarettes per day. OUTPATIENT MEDICATIONS: Reviewed. ALLERGIES: CODEINE, MORPHINE, PENICILLIN, SILVER, SULFA AND PERSIMMON. PHYSICAL EXAMINATION: VITAL SIGNS: Temperature 98.5, pulse 104, blood pressure 116/76, respiratory rate 21, saturating 100% on room air. GENERAL: The patient is lying in bed, in no acute distress. Alert and oriented x4. HEENT: Normocephalic, atraumatic. No JVD noted or scleral icterus. CARDIOVASCULAR: Tachycardic rate, but regular rhythm with no discernible murmurs, gallops, or rubs. RESPIRATORY: Clear to auscultation bilaterally with no discernible wheezes or rales. ABDOMEN: She has a significantly distended abdomen that was positive for shifting dullness. Tenderness to palpation in the right flank only. EXTREMITIES: 1+/2+ bilateral lower extremity edema extending just above the knees. LABORATORY DATA: CBC with a white blood cell count of 4.8, hemoglobin 6, hematocrit 17.3, glucose 106. INR 1.4. Chemistry with a sodium of 126, potassium 4.3, chloride 95, CO2 of 24, BUN 28, creatinine 1.4, glucose 156. AST 45, ALT 22, alkaline phosphatase 105, total bilirubin 1.5. Iron 71, ferritin 55, TIBC 224. IMAGING DATA: EGD performed on December 25, 2018, showed severe portal hypertensive gastropathy with friability and the spontaneous formation of small blood clots. Gastric antral vascular ectasias were also seen in the gastric antrum and were intervened upon with argon plasma coagulation. Small arteriovenous malformations were also seen in the duodenal bulb and intervened upon as well. ASSESSMENT AND PLAN: The patient is a 53-year-old female with past medical history of gastroesophageal reflux disease, asthma, anxiety, depression, and cirrhosis complicated by ascites, lower extremity edema, esophageal varices and gastric antral vascular ectasias, presenting with symptomatic anemia, possible melena, increased ascites and lower extremity edema Melena/symptomatic anemia. The patient is presenting with a recent history of increased generalized weakness and the sensation of presyncopal events upon assuming a standing position. On evaluation in the [facility], she was noted to have a significantly decreased H and H and was transfused approximately 2 units of packed red blood cells. However, iron indices obtained prior to installation of packed red blood cells are more indicative of an anemia of chronic disease rather than an iron deficiency anemia. However, with the concurrent appearance of dark green/black stools, it is also concerning for continued bleeding from an upper gastrointestinal source, especially given her recent history of cauterization of gastric antral vascular ectasias. RECOMMENDATIONS: 1. We would continue to trend H and H and transfuse as necessary to maintain an H and H of 03/19. 2. Continue to monitor clinically for signs of active GI bleeding. 3. We would plan for EGD during this admission for intraluminal evaluation and possible GI bleeding source, although the patient would like to defer this until Wednesday. 4. We would place the patient on ciprofloxacin as part of infection prophylaxis in a potentially bleeding cirrhotic patient. 5. Worsening ascites. The patient is presenting with a recent history worsening ascites that has been present for the last couple months. At this point, she has had the placement of a tips procedure while in [place], being evaluated by the transplant service there; however, despite having a TIPS in place, she has had it revised within the last 1-2 months, where it sounds like she had lysis of clot formation within the stent itself. However, despite these measures, she continues to have significant lower extremity edema and ascites. She is currently adherent to a low-sodium diet as an outpatient along with taking diuretic therapy including spironolactone 100 mg b.i.d. and furosemide 40 mg b.i.d. 6. We would obtain a right upper quadrant ultrasound with hepatic Doppler for evaluation of the TIPS as well as flow into the portal system, which could potentially create increased portal hypertension and worsening of her ascites. 7. We would continue patient on diuretic management including furosemide 40 mg b.i.d. and spironolactone 100 mg b.i.d. 8. We will continue to monitor her renal function during this admission with possible increase in these diuretics, if needed. 9. We would consider repeat paracentesis during this admission and further evaluation for possible SBP. 10. We will continue to follow. Please call with any questions again. Job ID: [id number]
[2019-02-11 06:33] LABS: Anion Gap 11 mmol/L (10-20); BUN (Urea Nitrogen) 28 mg/dL (9.8-20.1); Calc. Creatinine Clearance 77 mL/min (70-130); Calcium 8.5 mg/dL (7.8-10.44); Carbon Dioxide 22 mmol/L (22-29); Chloride 97 mmol/L (98-107); Estimated GFR-MDRD 40; Glucose 171 mg/dL (70-105); Potassium 4.4 mmol/L (3.5-5.1); Sodium 126 mmol/L (136-145)
[2019-02-11 06:34] LABS: Band 13 % (5-11); Eosinophils 5 % (0-10); Lymphocytes 14 % (21-51); MDiff Complete? YES; Mean Corpuscular HGB CONC 33.8 g/dL (32.0-36.0); Mean Corpuscular Hemoglobin 32.2 pg (27.0-31.0); Mean Corpuscular Volume 95.4 fL (78.0-98.0); Mean Platelet Volume 6.9 fL (7.4-10.4); Monocytes 13 % (0-10); Neutrophil 55 % (42-75); Platelet Count 111 thou/uL (130-400); Platelet Morphology Comment Appears Decreased; RBC Distribution Width 15.2 % (11.5-14.5); Red Blood Cell (RBC) Count 2.47 mill/uL (4.20-5.40); White Blood Cell (WBC) Count 4.9 thou/uL (4.8-10.8)
[2019-02-11] MEDS ORDERED: MAGNESIUM AMINO ACID CHELATE PO SCH (09:00)
[2019-02-11] MEDS: busPIRone HCl 10 MG TAB PO SCH ×2 (09:10→19:57)
[2019-02-11] MEDS: Rifaximin 550 MG TAB PO SCH ×2 (09:10→19:57)
[2019-02-11] MEDS: Fluticasone Propionate Nasal Spray 16 gm Bottle NASAL SCH (09:10)
[2019-02-11] MEDS: Furosemide 20 MG TAB PO SCH ×2 (09:11→19:57)
[2019-02-11] MEDS: Cyanocobalamin (Vitamin B-12) 1,000 MCG TAB PO SCH (09:11)
[2019-02-11] MEDS: Spironolactone 100 MG TAB PO SCH ×2 (09:12→19:56)
[2019-02-11] MEDS: LACTULOSE 10 GM PO SCH ×2 (09:13→19:59)
--- NOTE | 2019-02-11 09:24 | ULT ---
HEPATIC ULTRASOUND WITH DOPPLER: HISTORY: Ascites. Evaluation of tips. COMPARISON: 12/14/2018. FINDINGS: The liver demonstrates coarse echogenic echotexture with an irregular contour consistent with cirrhos is. No focal hepatic mass is seen. Intrahepatic portal systemic shunt is again noted and is patent. The spleen is enlarged measuring 16.5 cm in length. The patient is post cholecystectomy. The common duct measures 3 mm in diameter. Mild prominence of the central intrahepatic bile ducts is consistent with reservoir effect from cholecystectomy. The pancreas and IVC are not well visualized due to overlying bowel gas. There is a small amount of free fluid consistent with ascites. Doppler, color flow, and spectral analysis of the hepatic, portal, and splenic vasculature demonstrat es good normal directional flow with normal spectral waveforms. IMPRESSION: 1. Cirrhosis of the liver, splenomegaly, and ascites consistent with portal hypertension. 2. Patent TIPS. POS: TIFFANIE
--- NOTE | 2019-02-11 09:52 | PDOC.FM ---
- Subjective Subjective: Pt reports continued weakness, anticipates EGD tomorrow. No new complaints today. no fever/chills - Objective Vital Signs & Weight: Vital Signs (12 hours) Temp Pulse Resp BP Pulse Ox 02/11/19 07:59 98.5 F 104 H 16 102/67 100 02/11/19 04:00 98.5 F 105 H 21 H 105/57 L 98 02/11/19 00:19 98.5 F 104 H 21 H 116/76 100 Weight Weight 100.788 kg I&O: 02/10/19 02/11/19 02/12/19 06:59 06:59 06:59 Intake Total 1150 Balance 1150 Result Diagrams: 02/11/19 05:29 02/11/19 05:29 Phys Exam - Physical Examination Constitutional: NAD HEENT: moist MMs, oral pharynx no lesions Neck: no JVD, supple Respiratory: no wheezing, clear to auscultation bilateral Cardiovascular: RRR, no significant murmur Gastrointestinal: soft +fluid wave Musculoskeletal: pulses present Neurological: normal sensation, moves all 4 limbs Psychiatric: normal affect, A&O x 3 Skin: no rash, normal turgor Dx/Plan (1) Anemia Code(s): D64.9 - ANEMIA, UNSPECIFIED Status: Acute (2) CKD (chronic kidney disease) stage 3, GFR 30-59 ml/min Code(s): N18.3 - CHRONIC KIDNEY DISEASE, STAGE 3 (MODERATE) Status: Chronic (3) Cirrhosis of liver with ascites Code(s): K74.60 - UNSPECIFIED CIRRHOSIS OF LIVER Status: Chronic (4) Depression Code(s): F32.9 - MAJOR DEPRESSIVE DISORDER, SINGLE EPISODE, UNSPECIFIED Status : Chronic (5) HTN (hypertension) Code(s): I10 - ESSENTIAL (PRIMARY) HYPERTENSION Status: Chronic (6) Hyponatremia Code(s): E87.1 - HYPO-OSMOLALITY AND HYPONATREMIA Status: Chronic (7) S/P TIPS (transjugular intrahepatic portosystemic shunt) Status: Chronic (8) Tobacco abuse Code(s): Z72.0 - TOBACCO USE Status: Chronic - Plan Plan: Symptomatic anemia A- could be 2/2 stomach ectasia or duodenal AVM found on most recent EGD. Hgb has dropped from 9.1 to 6 over the last few weeks. P- f/u iron, ferritin, TIBC, b12, folate -h/h at 1300 -AM CBCs -plans for EGD on Wednesday Hyponatremia A- acute on chronic, 123 on presentation, appears to be around 128 at baseline on previous admissions. Pt is asymptomatic. Likely this is 2/2 liver failure P- fluid restrict on diet -monitor AM BMPs Liver failure with cirrhosis 2/2 NAFLD A- Pt getting paracentesis qWeekly on tuesdays, pt has been compliant and does have LE edema. unclear if this is baseline for her P- Possible additional paracentesis while in hospital -f/u GI recs GERD -home meds, tums prn Anxiety/Depression -home meds, encourage continued weaning of clonazepam CKD3 -MD aware Code: FULL Addendum - Attending - Attending Attestation Date/Time: 02/11/19 [id number] I personally evaluated the patient and discussed the management with Dr. Cabello. I agree with the History, Examination, Assessment and Plan documented above with any addition or exceptions noted below. The patient's anemia is improved from 6 initially and is 8 this morning. Will repeat h/h this afternoon. EGD planned for tomorrow. Hyponatremia is also improving. RUQ u/s was being taken while I visited the patient.
[2019-02-11 12:59] LABS: Hemoglobin 8.1 g/dL (12.0-16.0)
--- NOTE | 2019-02-11 13:17 | EKG ---
Test Reason : Blood Pressure : / mmHG Vent. Rate : 102 BPM Atrial Rate : 102 BPM P-R Int : 124 ms QRS Dur : 068 ms QT Int : 352 ms P-R-T Axes : 053 040 060 degrees QTc Int : 458 ms Sinus tachycardia Otherwise normal ECG Confirmed by FERN DOMINGUEZ D.O. ([id number]), manuscript editor PARVIZ KENNEDY ([id number]) on 02/11/2019 1:17:44 PM Referred By: Confirmed By:FERN DOMINGUEZ D.O.
[2019-02-11] MEDS: IRON 65 MG PO SCH ×2 (15:00→20:00)
[2019-02-11] MEDS: Loratadine 10 MG TAB PO SCH (19:57)
[2019-02-11] MEDS: MELATONIN 10 MG PO SCH (20:00)
[2019-02-11] MEDS: Cyclobenzaprine 10 MG TAB PO PRN (20:08)
--- NOTE | 2019-02-11 20:34 | PRG ---
DATE OF SERVICE: 02/11/2019 REASON FOR CONSULTATION: Cirrhosis with ascites, symptomatic anemia. SUBJECTIVE: The patient did well overnight with no acute events or problems. Currently, she states that she is doing well, but continues to have right-sided abdominal pain that has been present since her previous hospitalization. Otherwise, she denies any nausea, vomiting, fevers, chills, hematemesis, melena, or hematochezia. She did have a bowel movement earlier today, but characterizes more of a dark green stool as opposed to black in coloration. OBJECTIVE: VITAL SIGNS: Temperature 98.3 pulse 104, blood pressure 115/75, respiratory rate 16 and saturating 100% on room air. GENERAL: The patient is lying in bed, in no acute distress. Alert and oriented x4. CARDIOVASCULAR: Tachycardic rate, but regular rhythm. RESPIRATORY: Clear to auscultation bilaterally. ABDOMEN: Significantly distended abdomen with positive shifting dullness. Tenderness to palpation in the right flank only. EXTREMITIES: 1+/2+ bilateral lower extremity edema extending just above the knees. LABORATORY DATA: CBC with a white blood cell count of 4.9, hemoglobin 8, hematocrit 23.6, and platelets 111. Chemistry with a sodium of 126, potassium 4.4, chloride 97, CO2 22, BUN 28, creatinine 1.38, and glucose 171. IMAGING DATA: Right upper colon ultrasound was obtained on February 11, 2019, which showed a coarse echogenic echotexture with irregular contour consistent with cirrhosis of the liver. The TIPS was noted, but was widely patent with no evidence of thrombosis. The patient is status post cholecystectomy with the common bile duct measuring 3 mm in diameter, but the central intrahepatic ducts were slightly dilated consistent with a reservoir effect. Otherwise, Doppler, color-flow, and spectral analysis of the hepatic portal and splenic vasculature demonstrated good normal directional flow and normal spectral waveforms. ASSESSMENT AND PLAN: The patient is a 53-year-old female with past medical history of Gastroesophageal reflux disease, asthma, anxiety, depression, and cirrhosis complicated by ascites, lower extremity edema, esophageal varices and gastric antral vascular ectasias, presenting with symptomatic anemia secondary to possible melena and increased ascites and lower extremity edema. Melena/symptomatic anemia: The patient initially presented with a recent history of increased generalized weakness and possible presyncopal events upon standing prior to admission. On admission, she was noted to have a significantly decreased H and H when compared to baseline and was transfused approximately 2 units of packed red blood cells with appropriate response. She has not had any episodes of overt gastrointestinal bleeding while she was an inpatient, but does have dark green colored stools during this admission. At this point, it is unclear if this is consistent with melena or more of a function of dietary intake. However, with the decreased the H and H on admission, I would err on the side of cautious and treat this as a possible GI bleed with plans to proceed with endoscopy tomorrow. Recommendations: 1. Would continue to trend H and H and transfuse as necessary to maintain an H and H of 03/19. 2. Continue to monitor clinically for signs of active GI bleeding. 3. We will plan for esophagogastroduodenoscopy tomorrow. 4. We will make the patient n.p.o. at midnight in preparation for this procedure. 5. We will continue patient on ciprofloxacin (penicillin allergy) as part of infection prophylaxis and potential upper gastrointestinal bleed in a cirrhotic patient. Worsening ascites: The patient is presenting with a recent history of worsening ascites that has been progressing over the last few months despite the placement of a transjugular intrahepatic portosystemic shunt procedure. She did have the transjugular intrahepatic portosystemic shunt revised approximately 1 to 2 months ago with what sounds like the lysis of clot material within the stent itself. However, right upper quadrant ultrasound obtained during this admission showed that the transjugular intrahepatic portosystemic shunt was widely patent with no abnormalities with blood flow. Recommendations: 1. Would continue patient on current diuretic management including furosemide 40 mg b.i.d. and spironolactone 100 mg b.i.d., but we will consider increasing her furosemide during this admission to facilitate increased urinary excretion. 2. We will continue to monitor renal function daily during this admission for possible renal injury with increasing diuretics. 3. Would consider repeat paracentesis during this admission. 4. Fluid restriction could be considered given her hyponatremia, but given the mild nature of her hyponatremia, would not recommend restricting less than 1200 mL per day. We will continue to follow. Please call with any questions. Job ID: [id number]
[2019-02-12 06:47] LABS: Anion Gap 14 mmol/L (10-20); BUN (Urea Nitrogen) 30 mg/dL (9.8-20.1); Calc. Creatinine Clearance 74 mL/min (70-130); Carbon Dioxide 18 mmol/L (22-29); Chloride 97 mmol/L (98-107); Estimated GFR-MDRD 39; Glucose 154 mg/dL (70-105); Potassium 4.3 mmol/L (3.5-5.1); Sodium 125 mmol/L (136-145)
[2019-02-12 06:54] LABS: Band 6 % (5-11); Eosinophils 1 % (0-10); Hemoglobin 7.9 g/dL (12.0-16.0); Hypochromia SLIGHT = 6-15 cells (100X) (0-5/hpf); Lymphocytes 9 % (21-51); MDiff Complete? YES; Mean Corpuscular Hemoglobin 31.7 pg (27.0-31.0); Monocytes 12 % (0-10); Neutrophil 72 % (42-75); Platelet Count 108 thou/uL (130-400); Platelet Morphology Comment Appears Decreased; RBC Distribution Width 15.6 % (11.5-14.5); White Blood Cell (WBC) Count 4.2 thou/uL (4.8-10.8)
--- NOTE | 2019-02-12 07:33 | PDOC.FM ---
- Subjective Subjective: Reports another dark stool last night. Still feels weak. no other complaints - Objective Vital Signs & Weight: Vital Signs (12 hours) Temp Pulse Resp BP Pulse Ox 02/11/19 20:00 98.2 F 102 H 16 104/68 100 Weight Admit Weight 100.788 kg Weight 100.788 kg I&O: 02/11/19 02/12/19 02/13/19 06:59 06:59 06:59 Intake Total 1150 1000 Balance 1150 1000 Result Diagrams: 02/12/19 06:20 02/12/19 06:20 Phys Exam - Physical Examination Constitutional: NAD HEENT: moist MMs, oral pharynx no lesions Neck: no JVD, supple Respiratory: no wheezing, clear to auscultation bilateral Cardiovascular: RRR, no significant murmur Gastrointestinal: soft, positive bowel sounds Musculoskeletal: no edema, pulses present Neurological: normal sensation, moves all 4 limbs Psychiatric: normal affect, A&O x 3 Skin: no rash, normal turgor Dx/Plan (1) Anemia Code(s): D64.9 - ANEMIA, UNSPECIFIED Status: Acute (2) CKD (chronic kidney disease) stage 3, GFR 30-59 ml/min Code(s): N18.3 - CHRONIC KIDNEY DISEASE, STAGE 3 (MODERATE) Status: Chronic (3) Cirrhosis of liver with ascites Code(s): K74.60 - UNSPECIFIED CIRRHOSIS OF LIVER Status: Chronic (4) Depression Code(s): F32.9 - MAJOR DEPRESSIVE DISORDER, SINGLE EPISODE, UNSPECIFIED Status : Chronic (5) HTN (hypertension) Code(s): I10 - ESSENTIAL (PRIMARY) HYPERTENSION Status: Chronic (6) Hyponatremia Code(s): E87.1 - HYPO-OSMOLALITY AND HYPONATREMIA Status: Chronic (7) S/P TIPS (transjugular intrahepatic portosystemic shunt) Status: Chronic (8) Tobacco abuse Code(s): Z72.0 - TOBACCO USE Status: Chronic - Plan Plan: Symptomatic anemia A- could be 2/2 stomach ectasia or duodenal AVM found on most recent EGD. Hgb has dropped from 9.1 to 6 over the last few weeks. s/p 2 u PRBC, hgb 7.9 today. P-AM CBCs -plans for EGD on Wednesday Hyponatremia A- acute on chronic, 123 on presentation, appears to be around 128 at baseline on previous admissions. Pt is asymptomatic. Likely this is 2/2 liver failure P- fluid restrict on diet -monitor AM BMPs Liver failure with cirrhosis 2/2 NAFLD A- Pt getting paracentesis qWeekly on tuesdays, pt has been compliant and does have LE edema. unclear if this is baseline for her P- Possible additional paracentesis while in hospital -continue cipro for ppx -f/u GI recs GERD -home meds, tums prn Anxiety/Depression -home meds, encourage continued weaning of clonazepam CKD3 -MD aware Code: FULL Addendum - Attending - Attending Attestation Date/Time: 02/12/19 8911 I personally evaluated the patient and discussed the management with Dr. Cabello. I agree with the History, Examination, Assessment and Plan documented above with any addition or exceptions noted below. The patient is resting comfortably. She will have an egd today. F/u with GI recs. Hb 8.1 to 7.9.
[2019-02-12] MEDS: Spironolactone 100 MG TAB PO SCH ×2 (09:00→20:37)
[2019-02-12] MEDS: MAGNESIUM 500 MG PO SCH (09:00)
[2019-02-12] MEDS: IRON 65 MG PO SCH ×3 (09:00→18:58)
[2019-02-12] MEDS: Fluticasone Propionate Nasal Spray 16 gm Bottle NASAL SCH (09:00)
[2019-02-12] MEDS: LACTULOSE 10 GM PO SCH ×2 (09:00→18:58)
[2019-02-12] MEDS: Rifaximin 550 MG TAB PO SCH ×2 (09:00→20:37)
[2019-02-12] MEDS: Furosemide 20 MG TAB PO SCH ×2 (09:00→20:36)
[2019-02-12] MEDS: busPIRone HCl 10 MG TAB PO SCH ×2 (09:00→20:36)
[2019-02-12] MEDS: Cyanocobalamin (Vitamin B-12) 1,000 MCG TAB PO SCH (09:00)
[2019-02-12] MEDS ORDERED: Ondansetron HCl/PF 4 MG/2 ML Vial IVP PRN (09:39)
[2019-02-12] MEDS ORDERED: PROPOFOL 200 MG/20 ML VIAL ONE (10:13)
[2019-02-12] MEDS ORDERED: Glycopyrrolate 0.2 MG/ML 5 ML SYRINGE ONE (10:13)
--- NOTE | 2019-02-12 11:39 | OP ---
DATE OF PROCEDURE: 02/12/2019 PROCEDURE PERFORMED: Esophagogastroduodenoscopy with control of hemorrhage. INDICATION FOR PROCEDURE: Anemia, history of gastric antral vascular ectasias with bleeding, history of severe portal hypertensive gastropathy, melena. DESCRIPTION OF PROCEDURE: After the risks and benefits of the procedure were explained to the patient including risks of bleeding, infection, perforation, reactions to anesthesia, aspiration and/or pain, informed consent was obtained. The patient was then taken to the endoscopy suite, where deep sedation was administered via ketamine, propofol, and anesthesia support. Once adequate sedation was achieved, the standard gastroscope was introduced into the mouth with intubation of the esophagus, stomach, and the proximal small intestines with the findings listed below. The patient tolerated the procedure well with no immediate perioperative complications, although she did exhibit increased coughing during the course of the procedure. Upon conclusion of the procedure, all equipment was removed from the patient and she was transferred to PACU in satisfactory condition. FINDINGS: Esophagus: Normal-appearing mucosa was seen in the proximal, mid, and distal esophagus. There was no evidence of erosions, ulcerations, mass, lesions, esophageal varices, or active/recent bleeding. Stomach: Severe submucosal hemorrhage and mucosal erythema were seen throughout the entire stomach in a mosaic type pattern consistent with severe portal hypertensive gastropathy. This extended from the gastric cardia, fundus, body, greater curvature, and into the antrum. In areas of the severe portal hypertensive gastropathy, there was observed active oozing of blood. They were intervened upon with argon plasma coagulation successfully. However, also going into the gastric antrum and incisura, there was noted to be extensive gastric antral vascular ectasias (GAVE) with active oozing of blood in this region as well from numerous sites. Using argon plasma coagulation, these sites were then cauterized with good hemostasis achieved and no bleeding noted at the end of the procedure. However, there was severe GAVE that was not treated during the course of this examination due to the inability to maintain adequate sedation for the patient during the procedure, making it difficult to adequately cauterize these regions as well. Otherwise, there was no evidence of ulcerations or mass lesions. Duodenum: Normal-appearing mucosa was seen in both the duodenal bulb and second portion of the duodenum. There was no evidence of erosions, ulcerations, mass, lesions, or active/recent bleeding. IMPRESSION: 1. Severe portal hypertensive gastropathy with active oozing of blood in the gastric cardia and fundus status post argon plasma coagulation. 2. Gastric antral vascular ectasias in the gastric antrum and incisura with active oozing of blood, status post argon plasma coagulation. 3. No evidence of gastric or esophageal varices. RECOMMENDATIONS: 1. We will continue to trend H and H and transfuse as necessary to maintain an H and H of 7/21. 2. We will continue to monitor clinically for signs of active GI bleeding. 3. Would consider placing the patient on low-dose nonselective beta-cole like propranolol 10 mg b.i.d. in an effort to decrease portal hypertension, and subsequently, portal hypertensive gastropathy. 4. Would repeat the EGD in approximately 4 to 6 weeks for repeat evaluation of the portal hypertensive gastropathy and GAVE, and possible retreatment at that time. I would recommend using general anesthesia to maintain better sedation during the procedure and decreased risk of aspiration. 5. Would continue with diuretic management at the current dosing. Would repeat paracentesis tomorrow given significant ascites. 6. We will continue to follow. Please call with any questions. Job ID: [id number]
[2019-02-12] MEDS ORDERED: Ondansetron ORAL SOLN. 4 MG/5 ML UDCUP PO PRN (14:04)
[2019-02-12] MEDS ORDERED: Ondansetron HCl/PF 8 MG in Sodium Chloride 0.9% 50 ML IVPB PRN (14:04)
[2019-02-12] MEDS ORDERED: Ondansetron ODT 4 MG TAB PO PRN (14:06)
[2019-02-12] MEDS: MELATONIN 10 MG PO SCH (19:32)
[2019-02-12] MEDS: Loratadine 10 MG TAB PO SCH (20:37)
[2019-02-12] MEDS ORDERED: traMADol HCl 50 MG TAB PO SCH (22:45)
[2019-02-12] MEDS: Cyclobenzaprine 10 MG TAB PO PRN (22:48)
[2019-02-13 05:35] LABS: Anion Gap 12 mmol/L (10-20); BUN (Urea Nitrogen) 28 mg/dL (9.8-20.1); Calc. Creatinine Clearance 72 mL/min (70-130); Calcium 7.9 mg/dL (7.8-10.44); Carbon Dioxide 20 mmol/L (22-29); Chloride 97 mmol/L (98-107); Estimated GFR-MDRD 37; Glucose 217 mg/dL (70-105); Potassium 4.2 mmol/L (3.5-5.1); Sodium 125 mmol/L (136-145)
[2019-02-13 05:47] LABS: Band 3 % (5-11); Eosinophils 1 % (0-10); Hemoglobin 7.4 g/dL (12.0-16.0); Lymphocytes 14 % (21-51); MDiff Complete? YES; Mean Corpuscular HGB CONC 32.9 g/dL (32.0-36.0); Mean Corpuscular Volume 97.4 fL (78.0-98.0); Mean Platelet Volume 6.8 fL (7.4-10.4); Monocytes 7 % (0-10); Neutrophil 75 % (42-75); Platelet Count 100 thou/uL (130-400); Platelet Morphology Comment Appears Decreased; RBC Distribution Width 15.3 % (11.5-14.5); Red Blood Cell (RBC) Count 2.31 mill/uL (4.20-5.40); White Blood Cell (WBC) Count 5.8 thou/uL (4.8-10.8)
--- NOTE | 2019-02-13 07:18 | PDOC.FM ---
- Subjective Subjective: Patient states her abdominal pain continues to be 10/10. Otherwise she is ambulating, denies pre-syncopal symptoms, tolerating PO fluids. - Objective Vital Signs & Weight: Vital Signs (12 hours) Temp Pulse Resp BP Pulse Ox 02/12/19 20:23 98.1 F 103 H 18 108/69 100 02/12/19 20:00 97 Weight Admit Weight 100.788 kg Weight 100.788 kg I&O: 02/12/19 02/13/19 02/14/19 06:59 06:59 06:59 Intake Total 1000 Balance 1000 Result Diagrams: 02/13/19 04:51 02/13/19 04:51 Phys Exam - Physical Examination Constitutional: NAD Neck: no nodes, supple Respiratory: no wheezing, no rales, clear to auscultation bilateral Cardiovascular: RRR 2/6 systolic murmur Gastrointestinal: soft, positive bowel sounds midepigastric tenderness to palpation, some guarding no rebound +distention and ascites Musculoskeletal: edema present BLE 2+ pitting edema Neurological: non-focal Psychiatric: normal affect Skin: no rash, normal turgor, cap refill <2 seconds Dx/Plan (1) Symptomatic anemia Code(s): D64.9 - ANEMIA, UNSPECIFIED Status: Acute (2) Portal hypertension Code(s): K76.6 - PORTAL HYPERTENSION Status: Acute (3) Anxiety Code(s): F41.9 - ANXIETY DISORDER, UNSPECIFIED Status: Acute (4) Cirrhosis of liver with ascites Code(s): K74.60 - UNSPECIFIED CIRRHOSIS OF LIVER Status: Chronic (5) Depression Code(s): F32.9 - MAJOR DEPRESSIVE DISORDER, SINGLE EPISODE, UNSPECIFIED Status : Chronic (6) GERD (gastroesophageal reflux disease) Code(s): K21.9 - GASTRO-ESOPHAGEAL REFLUX DISEASE WITHOUT ESOPHAGITIS Status: Chronic (7) Hyponatremia Code(s): E87.1 - HYPO-OSMOLALITY AND HYPONATREMIA Status: Chronic - Plan Plan: Symptomatic anemia 2/2 submucosal hemorrhage/GAVE - Hgb has dropped from 9.1 to 6 over the last few weeks. S/p 2 u PRBC, hgb today 7.4. - EGD 02/12 with Dena showed severe submucosal hemorrhage that was cauterized, however GAVE (Gastric antral vascular estasia) unable to be cauterized due to inadequate sedation -Follow up EGD in 4-6 weeks under general anesthesia - Keep Hgb > 7/21 - Start propranolol 10 BID to control portal hypertension Portal Hypertension with bleeding Gastric Antral vascular ectasia -Severe submucosal hemorrhage seen on EGD -Start propranolol 10 BID -Monitor BP Acute on Chronic Hyponatremia - 123 on presentation, appears to be around 128 at baseline on previous admissions. Pt is asymptomatic. Likely this is 2/2 liver failure - 125 today - fluid restrict on diet - monitor AM BMPs Liver failure with cirrhosis 2/2 NAFLD - Pt getting paracentesis qWeekly on tuesdays, pt has been compliant and does have LE edema. - Possible paracentesis today/tomorrow in hospital - continue cipro for ppx - continue rifaximin, lactulose - continue spironolactone, lasix - start propranolol BID to control portal hypertension GERD -home meds, tums prn Anxiety/Depression -home meds, encourage continued weaning of clonazepam CKD3 -MD aware Code: FULL PCP: Dr. Jeff Addendum - Attending - Attending Attestation Date/Time: 02/13/19 1224 I personally evaluated the patient and discussed the management with Dr. Chawla I agree with the History, Examination, Assessment and Plan documented above with any addition or exceptions noted below.Patient for routine paracentesis done by IR will ask for post paracentesis infusion of albumin and cell count and culture r/o SBP. Patient c/o sedation s/p propanolol consider low dose nadolol etc yohana confer with GI overall patient stable s/p cauterization bleeding.
[2019-02-13] MEDS: Rifaximin 550 MG TAB PO SCH ×2 (09:24→20:04)
[2019-02-13] MEDS: Spironolactone 100 MG TAB PO SCH ×2 (09:24→20:13)
[2019-02-13] MEDS: busPIRone HCl 10 MG TAB PO SCH ×2 (09:24→20:04)
[2019-02-13] MEDS: Cyanocobalamin (Vitamin B-12) 1,000 MCG TAB PO SCH (09:25)
[2019-02-13] MEDS: Furosemide 20 MG TAB PO SCH ×2 (09:25→20:13)
[2019-02-13] MEDS: traMADol HCl 50 MG TAB PO SCH ×3 (09:26→20:04)
[2019-02-13] MEDS: Fluticasone Propionate Nasal Spray 16 gm Bottle NASAL SCH (09:28)
[2019-02-13] MEDS: MAGNESIUM 500 MG PO SCH (09:28)
[2019-02-13] MEDS: LACTULOSE 10 GM PO SCH ×2 (09:29→18:54)
[2019-02-13] MEDS: IRON 65 MG PO SCH ×3 (09:29→18:54)
[2019-02-13] MEDS ORDERED: Propranolol 10 MG TAB PO SCH ×2 (09:30→21:00)
[2019-02-13] MEDS ORDERED: Dextrose 5% in Water 1,000 ML IV PRN (09:43)
[2019-02-13] MEDS ORDERED: Dextrose 50% Abboject 50 ML SYRINGE SLOW IVP PRN (09:43)
[2019-02-13] MEDS ORDERED: Folic Acid 1 MG TAB PO SCH (09:45)
[2019-02-13 10:34] LABS: Hemoglobin A1c 4.7 % (4.0-6.0)
[2019-02-13] MEDS ORDERED: Albumin 25% 25 GM/100 ML BOT IVPB ONE (12:05)
[2019-02-13] MEDS ORDERED: Albumin 25% 200 ML ONE (14:42)
[2019-02-13] MEDS ORDERED: Sodium Bicarbonate 2.5 MEQ/5 ML VIAL ONE (14:55)
[2019-02-13 15:51] LABS: BF Color Yellow; BF RBC Count - Manual 23 /cumm; BF WBC/Nonhematics Ct. - Manua 38 /cumm; Body Fluid Source Ascites Body Fluid; Clarity Clear (Clear); Tube # EDTA
--- NOTE | 2019-02-13 16:09 | ULT ---
Ultrasound-guided paracentesis: HISTORY: Symptomatic ascites FINDINGS: Informed consent obtained prior to the procedure. Preprocedural imaging demonstrated intrap eritoneal free fluid. An area was marked in the left lower quadrant, and then meticulously prepped and draped in normal brenden rile fashion and anesthetized with 1% buffered lidocaine. With direct sonographic guidance, a 19-gauge needle and 5 [place] Montiel USAeh catheter were advanced into the abdomen. After the return of fluid, the catheter was advanced, and the needle was removed. Approximately 7 L of cloudy straw-colored was aspirated. The patient tolerated the procedure well and without immediate complication. 50 g of albumin was administered intravenously during the procedure. Intraperitoneal free fluid persists after paracentesis. IMPRESSION: Technically successful ultrasound-guided paracentesis. Specimen was sent for labs.
[2019-02-13] MEDS: Cyclobenzaprine 10 MG TAB PO PRN (16:11)
[2019-02-13 16:34] LABS: BF Segmented Neutrophils 2 %; Cell Count Non Hematic 75 %; Lymphocytes 23 %
--- NOTE | 2019-02-13 17:25 | PRG ---
DATE OF SERVICE: 02/13/2019 SUBJECTIVE: Ms. Gonzalez states she did have paresthesias today. She feels better. She has had no issues with confusion. She did have some hematemesis, talked with Dr. Fernandes about her endoscopic findings and her ultrasound Doppler studies. Presently, she is feeling well. There is no asterixis. OBJECTIVE: VITAL SIGNS: Pulse 103 to 106, temperature is 98.3, blood pressure 116/70. ABDOMEN: Still has some shifting dullness and fluid wave. EXTREMITIES: Do have some edema. LABORATORY DATA: White count 5.8, hemoglobin 7.4, platelet count is a 100. Sodium was 125, potassium 4.2, BUN and creatinine are 28 and 1.48 and that is up from baseline of around 1.1. Recent paracentesis 02/13/2019, white count 38. Tap on 02/02, serous fluid, protein of less than 1.0, glucose is 189 on 02/13. LDH is 29, protein less than 1, serum ascitic albumin gradient greater than 1.1, it is actually 1.6 to 1.7. On the ultrasound report and Doppler, flow was noted in the TIPS, but does not say what the speed is. ASSESSMENT: Severe complications of portal hypertension with refractory ascites, status post transjugular intrahepatic portosystemic shunt revision that had been placed earlier last year. Despite that, she has continued to have worsening ascites and edema. For a time, she had improvement in her transfusion requirements after the transjugular intrahepatic portosystemic shunt revision, but now she is back to having severe portal gastropathy requiring transfusions. The ascitic fluid did not show signs of malignancy. Evaluations for hepatoma have been negative. She remains without any encephalopathy. She has no signs of spontaneous bacterial peritonitis. RECOMMENDATIONS: 1. We will talk with her set up inspector in [place]. I would assume that she has TIPS dysfunction with the amount of portal hypertension problem she is having, but I need to talk with her directly as they revised this TIPS just a few months ago. 2. We will try low-dose beta cole. 3. We will proceed to go home in the next day or two. Job ID: [id number]
[2019-02-13] MEDS: Carvedilol 3.125 MG TAB PO SCH (17:32)
[2019-02-13] MEDS: MELATONIN 10 MG PO SCH (18:54)
[2019-02-13] MEDS: Loratadine 10 MG TAB PO SCH (20:04)
[2019-02-14 05:51] LABS: #Eosinphils 0.3 thou/uL (0.0-0.7); #Lymphocytes 0.7 thou/uL (1.20-3.40); #Monocytes 0.6 thou/uL (0.11-0.59); #Neutrophils 2.7 thou/uL (1.40-6.50); %Basophils 0.5 % (0.0-1.0); %Eosinophils 7.9 % (0.0-10.0); %Lymphocytes 15.3 % (21.0-51.0); %Monocytes 14.2 % (0.0-10.0); Hemoglobin 7.1 g/dL (12.0-16.0); Mean Corpuscular HGB CONC 33.2 g/dL (32.0-36.0); Mean Corpuscular Hemoglobin 32.4 pg (27.0-31.0); Mean Corpuscular Volume 97.6 fL (78.0-98.0); Mean Platelet Volume 6.8 fL (7.4-10.4); Platelet Count 87 thou/uL (130-400); RBC Distribution Width 15.1 % (11.5-14.5); Red Blood Cell (RBC) Count 2.21 mill/uL (4.20-5.40); White Blood Cell (WBC) Count 4.4 thou/uL (4.8-10.8)
[2019-02-14 06:10] LABS: Anion Gap 9 mmol/L (10-20); BUN (Urea Nitrogen) 28 mg/dL (9.8-20.1); Calc. Creatinine Clearance 69 mL/min (70-130); Calcium 8.2 mg/dL (7.8-10.44); Carbon Dioxide 25 mmol/L (22-29); Chloride 98 mmol/L (98-107); Estimated GFR-MDRD 36; Glucose 118 mg/dL (70-105); Potassium 4.3 mmol/L (3.5-5.1); Sodium 128 mmol/L (136-145)
--- NOTE | 2019-02-14 06:57 | PDOC.FM ---
- Subjective Subjective: Patient reports her abdominal pain is much improved this AM after her paracentesis. She is eating and drinking well. Reports he has not had a BM in a few days. - Objective Vital Signs & Weight: Vital Signs (12 hours) Temp Pulse Resp BP Pulse Ox 02/14/19 04:00 98.4 F 89 18 94/54 L 99 02/13/19 20:00 100 02/13/19 19:58 98.3 F 86 18 92/51 L 96 Weight Admit Weight 100.788 kg Weight 100.788 kg I&O: 02/12/19 02/13/19 02/14/19 06:59 06:59 06:59 Intake Total 1000 Balance 1000 Result Diagrams: 02/14/19 05:37 02/14/19 05:37 Phys Exam - Physical Examination Constitutional: NAD Neck: no nodes, supple Respiratory: no wheezing, clear to auscultation bilateral Cardiovascular: RRR 2/6 systolic murmur Gastrointestinal: soft, non-tender, positive bowel sounds mild distention, ascites much improved after paracentesis Musculoskeletal: pulses present 1+ pitting edema bilat Neurological: non-focal, moves all 4 limbs Psychiatric: normal affect Skin: no rash, normal turgor, cap refill <2 seconds Dx/Plan (1) Symptomatic anemia Code(s): D64.9 - ANEMIA, UNSPECIFIED Status: Acute (2) Portal hypertension Code(s): K76.6 - PORTAL HYPERTENSION Status: Acute (3) Anxiety Code(s): F41.9 - ANXIETY DISORDER, UNSPECIFIED Status: Acute (4) Cirrhosis of liver with ascites Code(s): K74.60 - UNSPECIFIED CIRRHOSIS OF LIVER Status: Chronic (5) Depression Code(s): F32.9 - MAJOR DEPRESSIVE DISORDER, SINGLE EPISODE, UNSPECIFIED Status : Chronic (6) GERD (gastroesophageal reflux disease) Code(s): K21.9 - GASTRO-ESOPHAGEAL REFLUX DISEASE WITHOUT ESOPHAGITIS Status: Chronic (7) Hyponatremia Code(s): E87.1 - HYPO-OSMOLALITY AND HYPONATREMIA Status: Chronic - Plan Plan: Symptomatic anemia 2/2 submucosal hemorrhage/GAVE - Hgb has dropped from 9.1 to 6 over the last few weeks. S/p 2 u PRBC, hgb today 7.4. - EGD 02/12 with [facility] showed severe submucosal hemorrhage that was cauterized, however GAVE (Gastric antral vascular estasia) unable to be cauterized due to inadequate sedation - Follow up EGD in 4-6 weeks under general anesthesia - Keep Hgb > 7/21, Hgb 7.1 today - Patient did not tolerate propranolol well yesterday, stated it made her very sleepy - Started on coreg BID Portal Hypertension with bleeding Gastric Antral vascular ectasia -Severe submucosal hemorrhage seen on EGD -GI plans to discuss possibility of TIPS dysfunction with her doctor in [place] -Started on Coreg BID, continue to monitor BP Acute on Chronic Hyponatremia - 123 on presentation, appears to be around 128 at baseline on previous admissions. Pt is asymptomatic. Likely this is 2/2 liver failure - 128 today - fluid restrict on diet - monitor AM BMPs Liver failure with cirrhosis 2/2 NAFLD - qWeekly paracentesis on tuesdays - S/p Paracentesis and 2 units albumin 02/13 - continue cipro for ppx - continue rifaximin, lactulose - continue spironolactone, lasix GERD -home meds, tums prn Anxiety/Depression -home meds, encourage continued weaning of clonazepam CKD3 -MD aware Code: FULL PCP: Dr. Jeff Addendum - Attending - Attending Attestation Date/Time: 02/14/19 1046 I personally evaluated the patient and discussed the management with Dr. Nicho Chawla I agree with the History, Examination, Assessment and Plan documented above with any addition or exceptions noted below. Appreciate GI recommendation with paracentesis yesterday removed 7 liters fluid yesterday and given 50 grams albumin. Hgb notably 7.1 today will trend and transfuse prn. Patient feeling better and aware that f/u needed with [place] [facility] regard TIPS function. Patient tolerating coreg so far.
[2019-02-14] MEDS: Rifaximin 550 MG TAB PO SCH ×2 (08:41→20:20)
[2019-02-14] MEDS: Cyanocobalamin (Vitamin B-12) 1,000 MCG TAB PO SCH (08:41)
[2019-02-14] MEDS: Folic Acid 1 MG TAB PO SCH (08:42)
[2019-02-14] MEDS: busPIRone HCl 10 MG TAB PO SCH ×2 (08:42→20:19)
[2019-02-14] MEDS: traMADol HCl 50 MG TAB PO SCH ×3 (08:43→20:21)
[2019-02-14] MEDS: Fluticasone Propionate Nasal Spray 16 gm Bottle NASAL SCH (08:46)
[2019-02-14] MEDS: IRON 65 MG PO SCH ×3 (08:46→19:33)
[2019-02-14] MEDS: LACTULOSE 10 GM PO SCH ×2 (08:47→19:33)
[2019-02-14] MEDS: Carvedilol 3.125 MG TAB PO SCH ×2 (08:47→17:17)
[2019-02-14] MEDS: MAGNESIUM 500 MG PO SCH (08:48)
[2019-02-14] MEDS: Spironolactone 100 MG TAB PO SCH ×2 (08:58→20:26)
[2019-02-14] MEDS: Furosemide 20 MG TAB PO SCH (08:59)
[2019-02-14 12:59] LABS: Mean Corpuscular HGB CONC 32.9 g/dL (32.0-36.0); Mean Corpuscular Volume 97.3 fL (78.0-98.0); Platelet Count 78 thou/uL (130-400); RBC Distribution Width 15.1 % (11.5-14.5); Red Blood Cell (RBC) Count 2.19 mill/uL (4.20-5.40)
[2019-02-14] MEDS: HumaLOG 300 UNITS/3 ML VIAL SC PRN ×2 (13:08→20:42)
[2019-02-14 16:23] LABS: Hemoglobin 7.6 g/dL (12.0-16.0); Mean Corpuscular HGB CONC 32.5 g/dL (32.0-36.0); Mean Corpuscular Hemoglobin 31.8 pg (27.0-31.0); Mean Corpuscular Volume 97.9 fL (78.0-98.0); Mean Platelet Volume 6.5 fL (7.4-10.4); Platelet Count 89 thou/uL (130-400); RBC Distribution Width 15.2 % (11.5-14.5); White Blood Cell (WBC) Count 4.8 thou/uL (4.8-10.8)
[2019-02-14 16:28] LABS: INR-International Normal Ratio 1.4; Prothrombin Time 17.2 SEC (12.0-14.7)
[2019-02-14 16:30] LABS: Medtox Reader # READER 1
[2019-02-14 16:32] LABS: Amphetamine Not Detected (NotDetected); Barbiturates Screen Not Detected (NotDetected); Benzodiazepine Screen Not Detected (NotDetected); Cocaine Metabolite Screen Not Detected (NotDetected); Medtox Control Line Valid? VALID (VALID); Methadone Not Detected (NotDetected); Methamphetamine Not Detected (NotDetected); Opiate Screen Not Detected (NotDetected); Oxycodone Screen Not Detected (NotDetected); Phencyclidine (PCP) Not Detected (NotDetected); THC/Cannabinoid Screen Not Detected (NotDetected); Tricyclic Screen Detected (NotDetected)
[2019-02-14 16:41] LABS: Anisocytosis SLIGHT = 6-15 cells (100X) (0-5/hpf); Band 5 % (5-11); Eosinophils 4 % (0-10); Lymphocytes 9 % (21-51); MDiff Complete? YES; Monocytes 11 % (0-10); Neutrophil 67 % (42-75); Platelet Morphology Comment Appears Decreased; Polychromasia SLIGHT = 2-3 cells (100X) (0-2/hpf)
[2019-02-14 16:43] LABS: ALT (SGPT) 23 U/L (8-55); AST (SGOT) 47 U/L (5-34); Albumin 3.1 g/dL (3.5-5.0); Alkaline Phosphatase 94 U/L (40-150); Anion Gap 10 mmol/L (10-20); BUN (Urea Nitrogen) 27 mg/dL (9.8-20.1); Bilirubin, Total 1.5 mg/dL (0.2-1.2); Calc. Creatinine Clearance 67 mL/min (70-130); Calcium 8.1 mg/dL (7.8-10.44); Carbon Dioxide 25 mmol/L (22-29); Chloride 98 mmol/L (98-107); Estimated GFR-MDRD 34; Globulin 1.8 g/dL (2.4-3.5); Glucose 135 mg/dL (70-105); Protein, Total 4.9 g/dL (6.0-8.3); Sodium 129 mmol/L (136-145)
[2019-02-14 17:40] LABS: Follow-up Coag Comp? YES; Follow-up Hematology Comp? YES; Follow-up Result - Coag REPORT FAXED; Follow-up Result - Hematology REPORT FAXED; Follow-up Result - Urinalysis REPORT FAXED; Follow-up UA Comp? YES
[2019-02-14] MEDS ORDERED: Midodrine HCl 5 MG TAB PO SCH (19:30)
[2019-02-14] MEDS: MELATONIN 10 MG PO SCH (19:33)
[2019-02-14] MEDS: Senokot S 8.6-50 MG TAB PO SCH (20:19)
[2019-02-14] MEDS: Loratadine 10 MG TAB PO SCH (20:20)
[2019-02-14] MEDS: Furosemide 40 MG TAB PO SCH (20:25)
--- NOTE | 2019-02-14 20:43 | PRG ---
DATE OF SERVICE: 02/14/2019 SUBJECTIVE: Ms. Gonzalez feels fine. She states that she did not feel weak or dizzy. MEDICATIONS: 1. BuSpar. 2. Coreg 3.125 mg p.o. b.i.d. 3. Flexeril p.r.n. 4. Vitamin B12. 5. Folate. 6. Insulin sliding scale. 7. Lactulose p.r.n. 8. Lasix 40 b.i.d. 9. Melatonin p.r.n. 10. Protonix. 11. Iron. 12. Magnesium. 13. MiraLAX. 14. Xifaxan b.i.d. 15. Aldactone 100 mg b.i.d. OBJECTIVE: VITAL SIGNS: Blood pressure 98/57, temperature is 98, pulse 90. She has gotten diffuse anasarca. LUNGS: Clear. HEART: Regular rate and rhythm without clicks or murmurs. ABDOMEN: Soft and nontender. She has gotten diffuse edema in her legs. LABORATORY DATA: She is not encephalopathic. White count 4.8, hemoglobin 7.6, and platelet count 89,000. INR 1.4. Sodium 129, potassium 4, BUN and creatinine 27 and 1.58. Ascitic fluid negative for infection. ASSESSMENT: 1. Severe cirrhosis with refractory ascites. At this point, we would stop the beta cole, as this is worsening longevity in individuals with refractory ascites. 2. Watch renal function. If it worsens, we would hold her diuretics and start her on midodrine. 3. We are waiting for a call back from her beach patrol lieutenant in the [place] area to enquire as to whether or not she is a candidate for TIPS revision or if there may be some other etiology for her severe portal gastropathy and ongoing oozing and refractory ascites, even though she has TIPS in place. Job ID: [id number]
[2019-02-15 06:43] LABS: Hemoglobin 6.9 g/dL (12.0-16.0); Mean Corpuscular HGB CONC 33.3 g/dL (32.0-36.0); Mean Corpuscular Hemoglobin 32.5 pg (27.0-31.0); Mean Corpuscular Volume 97.5 fL (78.0-98.0); Mean Platelet Volume 6.8 fL (7.4-10.4); Platelet Count 73 thou/uL (130-400); RBC Distribution Width 14.9 % (11.5-14.5); Red Blood Cell (RBC) Count 2.11 mill/uL (4.20-5.40); White Blood Cell (WBC) Count 3.5 thou/uL (4.8-10.8)
[2019-02-15 06:57] LABS: Anion Gap 7 mmol/L (10-20); BUN (Urea Nitrogen) 24 mg/dL (9.8-20.1); Calc. Creatinine Clearance 78 mL/min (70-130); Carbon Dioxide 25 mmol/L (22-29); Chloride 101 mmol/L (98-107); Estimated GFR-MDRD 41; Glucose 159 mg/dL (70-105); Potassium 4.4 mmol/L (3.5-5.1); Sodium 129 mmol/L (136-145)
--- NOTE | 2019-02-15 07:26 | PDOC.FM ---
- Subjective Subjective: Patient reports constipation. She has been refusing her lactulose, taking home crystallose. Otherwise is eating, drinking, voiding well. Hgb 6.9 this morning, discussed giving another transfusion this AM. Patient states she is feeling well. - Objective Vital Signs & Weight: Vital Signs (12 hours) Temp Pulse Resp BP Pulse Ox 02/14/19 20:00 98.8 F 97 18 98/60 100 Weight Admit Weight 100.788 kg Weight 100.788 kg I&O: 02/14/19 02/15/19 02/16/19 06:59 06:59 06:59 Intake Total 800 Balance 800 Result Diagrams: 02/15/19 06:23 02/15/19 06:23 Phys Exam - Physical Examination Constitutional: NAD HEENT: PERRLA dry MM Respiratory: no wheezing, clear to auscultation bilateral Cardiovascular: RRR, no rub 2/6 systolic mumur Gastrointestinal: soft, non-tender, positive bowel sounds +distention Musculoskeletal: pulses present Edema 1+ bilat LE Neurological: non-focal, moves all 4 limbs Psychiatric: normal affect Skin: no rash, normal turgor, cap refill <2 seconds Dx/Plan (1) Symptomatic anemia Code(s): D64.9 - ANEMIA, UNSPECIFIED Status: Acute (2) Portal hypertension Code(s): K76.6 - PORTAL HYPERTENSION Status: Acute (3) Anxiety Code(s): F41.9 - ANXIETY DISORDER, UNSPECIFIED Status: Acute (4) Cirrhosis of liver with ascites Code(s): K74.60 - UNSPECIFIED CIRRHOSIS OF LIVER Status: Chronic (5) Depression Code(s): F32.9 - MAJOR DEPRESSIVE DISORDER, SINGLE EPISODE, UNSPECIFIED Status : Chronic (6) GERD (gastroesophageal reflux disease) Code(s): K21.9 - GASTRO-ESOPHAGEAL REFLUX DISEASE WITHOUT ESOPHAGITIS Status: Chronic (7) Hyponatremia Code(s): E87.1 - HYPO-OSMOLALITY AND HYPONATREMIA Status: Chronic - Plan Plan: Symptomatic anemia 2/2 submucosal hemorrhage/GAVE - EGD 02/12 with Dena showed severe submucosal hemorrhage that was cauterized, however GAVE (Gastric antral vascular estasia) unable to be cauterized due to inadequate sedation - Follow up EGD in 4-6 weeks under general anesthesia - s/p 2 units PRBCs, Hgb 6.9 today, will transfuse 1 unit PRBCs - Continue protonix BID - Awaiting recommendations of GI doc in [place] for TIPS revision Portal Hypertension with bleeding Gastric Antral vascular ectasia -Severe submucosal hemorrhage seen on EGD -GI plans to discuss possibility of TIPS dysfunction with her doctor in [place] -GI consulted, appreciated recs. Discontinued beta cole due to severe cirrhosis with refractory ascites, a beta blockers worsen longevity Liver failure with cirrhosis 2/2 NAFLD with refractory ascites - qWeekly paracentesis on tuesdays - S/p Paracentesis Wednesday, 02/13 - continue cipro for ppx - continue rifaximin, lactulose (patient has been refusing lactulose) - continue spironolactone, lasix Acute on Chronic Hyponatremia, improving - 123 on presentation, appears to be around 128 at baseline on previous admissions. Pt is asymptomatic. Likely this is 2/2 liver failure - fluid restrict on diet - monitor AM BMPs GERD -home meds, tums prn Anxiety/Depression -home meds, encourage continued weaning of clonazepam CKD3 -Continue to monitor renal function -Consider starting midodrine Pancytopenia likely 2/2 Liver cirrhosis -Will transfuse 1 u PRBCs today for Hgb 6.9 -Patient has chronic thrombocytopenia, slightly lower than her baseline (100) at 73, WBC low at 3.5 -Continue to monitor Constipation -Started bowel regimen yesterday, patient has been refusing her lactulose and takes home crystallose Code: FULL PCP: Dr. Jeff Addendum - Attending - Attending Attestation Date/Time: 02/15/19 1117 I personally evaluated the patient and discussed the management with Dr. Chawla I agree with the History, Examination, Assessment and Plan documented above with any addition or exceptions noted below.Refractory ascites s/p TIPS, Midodrine started for hypotension HgB below 7 this am will transfuse 1 unit PRBC today and expectant management appreciate GI recommendations.
[2019-02-15 07:27] LABS: Ref Lab Test Ordered PETH; Reference Lab Name LABCORP
[2019-02-15 07:28] LABS: Ref Lab Test Ordered NICOTINE W MET; Reference Lab Name LABCORP
[2019-02-15 07:38] LABS: Band 1 % (5-11); Eosinophils 5 % (0-10); Lymphocytes 19 % (21-51); MDiff Complete? YES; Monocytes 12 % (0-10); Neutrophil 63 % (42-75); Ovalocytes SLIGHT = 2-5 cells (100X) (0-1/hpf); Platelet Morphology Comment Appears Decreased; Polychromasia SLIGHT = 2-3 cells (100X) (0-2/hpf)
[2019-02-15] MEDS: Senokot S 8.6-50 MG TAB PO SCH (08:35)
[2019-02-15] MEDS: busPIRone HCl 10 MG TAB PO SCH (08:35)
[2019-02-15] MEDS: Folic Acid 1 MG TAB PO SCH (08:35)
[2019-02-15] MEDS: Midodrine HCl 5 MG TAB PO SCH ×3 (08:35→17:06)
[2019-02-15] MEDS: Rifaximin 550 MG TAB PO SCH (08:35)
[2019-02-15] MEDS: Cyanocobalamin (Vitamin B-12) 1,000 MCG TAB PO SCH (08:35)
[2019-02-15] MEDS: traMADol HCl 50 MG TAB PO SCH ×2 (08:36→15:18)
[2019-02-15] MEDS: IRON 65 MG PO SCH ×2 (08:40→15:19)
[2019-02-15] MEDS: Polyethylene Glycol 3350 17 GM Packet PO SCH (08:40)
[2019-02-15] MEDS: Fluticasone Propionate Nasal Spray 16 gm Bottle NASAL SCH (08:41)
[2019-02-15] MEDS: MAGNESIUM 500 MG PO SCH (08:43)
[2019-02-15] MEDS: LACTULOSE 10 GM PO SCH (08:43)
[2019-02-15] MEDS: HumaLOG 300 UNITS/3 ML VIAL SC PRN (13:27)
[2019-02-15] MEDS: Furosemide 40 MG TAB PO SCH (13:29)
[2019-02-15] MEDS: Spironolactone 100 MG TAB PO SCH (13:29)
--- NOTE | 2019-02-15 19:18 | PRG ---
DATE OF SERVICE: 02/15/2019 SUBJECTIVE: Ms. Gonzalez had to get a blood transfusion today for drop in hemoglobin. She states her stool was brown. Her hemoglobin is 6.9. She is without complaints. She notes that her blood pressure has done better today. PHYSICAL EXAMINATION: VITAL SIGNS: Temperature is 98, pulse 94, blood pressure 102/67 to 106/60, this morning it was 92/60. GENERAL: She is mildly icteric, has ascites, non-tense; severe edema and anasarca. LABORATORY DATA: White count 3.5, hemoglobin 6.9 this morning, platelet count 73,000. Sodium 129, calcium 4.4, BUN and creatinine are 24 and 1.35. ASSESSMENT: 1. Cirrhosis. 2. Refractory ascites. Previous TIPS had to be revised earlier this spring with some improvement, but now things are even worse. There is flow shown in her TIPS now, but measured rates were not given. 3. Anemia, portal hypertensive gastropathy. Again earlier this spring, she was able to get transfused and had multiple endoscopies, then had a TIPS revision and everything improved. However, now she has severe portal gastropathy. Again, I suspect the TIPS is either closing or is stenotic and needs to be revised. I did call her Hepatology Center today at [facility]. Her main fur trimmer is out. I was awaiting for a call back from the on-call pathologist or mid-level, but did not receive one yet. RECOMMENDATIONS: 1. We placed her on midodrine to keep her blood pressure up increase diuresis. 2. Stop beta blockers, this contraindicated in severe hyponatremia and ascites. The patient's DEFINITE study trend showing worse long-term survival with beta blockers. She was not following it any way. 3. If she continues to have dropping hemoglobin, she will need to be transferred directly to [facility]. We will check hemoglobin AFP. Job ID: [id number]
[2019-02-16 09:55] LABS: Chloride 100 mmol/L (98-107); Potassium 4.1 mmol/L (3.5-5.1); Sodium 130 mmol/L (136-145)
[2019-02-16 09:56] LABS: Calcium 7.9 mg/dL (7.8-10.44); Glucose 107 mg/dL (70-105)
[2019-02-16 09:58] LABS: Anion Gap 10 mmol/L (10-20); Carbon Dioxide 24 mmol/L (22-29)
[2019-02-16 09:59] LABS: Calc. Creatinine Clearance 93 mL/min (70-130); Estimated GFR-MDRD 50
[2019-02-16 10:00] LABS: BUN (Urea Nitrogen) 21 mg/dL (9.8-20.1)
[2019-02-16] MEDS: Loratadine 10 MG TAB PO SCH (10:10)
[2019-02-16] MEDS: Furosemide 40 MG TAB PO SCH ×2 (10:10→10:12)
[2019-02-16] MEDS: busPIRone HCl 10 MG TAB PO SCH ×2 (10:10→10:18)
[2019-02-16] MEDS: IRON 65 MG PO SCH ×2 (10:11→10:13)
[2019-02-16] MEDS: LACTULOSE 10 GM PO SCH ×2 (10:11→10:14)
[2019-02-16] MEDS: MELATONIN 10 MG PO SCH (10:11)
[2019-02-16] MEDS: Senokot S 8.6-50 MG TAB PO SCH ×2 (10:13→10:28)
[2019-02-16] MEDS: Midodrine HCl 5 MG TAB PO SCH ×2 (10:15→11:54)
[2019-02-16] MEDS: traMADol HCl 50 MG TAB PO SCH ×3 (10:15→10:28)
[2019-02-16] MEDS: Cyanocobalamin (Vitamin B-12) 1,000 MCG TAB PO SCH (10:16)
[2019-02-16] MEDS: Rifaximin 550 MG TAB PO SCH ×2 (10:17→10:27)
[2019-02-16] MEDS: Fluticasone Propionate Nasal Spray 16 gm Bottle NASAL SCH (10:17)
[2019-02-16] MEDS: Spironolactone 100 MG TAB PO SCH ×2 (10:17→10:28)
[2019-02-16] MEDS: MAGNESIUM 500 MG PO SCH (10:18)
[2019-02-16] MEDS: Polyethylene Glycol 3350 17 GM Packet PO SCH (10:18)
[2019-02-16] MEDS: Folic Acid 1 MG TAB PO SCH (10:18)
[2019-02-16] MEDS ORDERED: Fleets Phospha Soda 45 ml Bottle FS SCH (10:45)
[2019-02-16] MEDS ORDERED: Fleets Phospha Soda 45 ml Bottle PO SCH (10:45)
[2019-02-16 12:00] VITALS: BP 97/65; TEMP 98
[2019-02-16 12:05] LABS: Hemoglobin 8.4 g/dL (12.0-16.0); Mean Corpuscular HGB CONC 33.5 g/dL (32.0-36.0); Mean Corpuscular Hemoglobin 32.5 pg (27.0-31.0); Mean Corpuscular Volume 96.9 fL (78.0-98.0); Mean Platelet Volume 7.4 fL (7.4-10.4); Platelet Count 81 thou/uL (130-400); RBC Distribution Width 15.2 % (11.5-14.5); Red Blood Cell (RBC) Count 2.57 mill/uL (4.20-5.40)
[2019-02-16 12:08] LABS: Band 3 % (5-11); Eosinophils 2 % (0-10); Lymphocytes 28 % (21-51); MDiff Complete? YES; Monocytes 12 % (0-10); Myelocyte 1 % (0-0); Neutrophil 53 % (42-75); Platelet Morphology Comment Appears Decreased; Polychromasia SLIGHT = 2-3 cells (100X) (0-2/hpf); Reactive Lymphocytes 1 % (0-10)
--- NOTE | 2019-02-16 18:03 | PRG ---
DATE OF SERVICE: 02/16/2019 SUBJECTIVE: Ms. Gonzalez feels well. She wants to go home today. OBJECTIVE: VITAL SIGNS: Pulse is 94, temperature is 98, blood pressure is 97/65 to 103/68. ABDOMEN: Soft and nontender. There is no rebound. There is no guarding. There is shifting dullness and fluid wave. EXTREMITIES: Reveal gross anasarca. LABORATORY STUDIES: Hemoglobin is 8.4, white count 4, platelet count 81,000. Sodium 130, potassium 4.1, BUN and creatinine are 21 and 1.14. ASSESSMENT: 1. Cirrhosis alcohol/non-alcoholic fatty liver. 2. Refractory ascites. 3. Severe portal gastropathy, requiring recurrent transfusions. 4. Previous TIPS placed with revision earlier this year in beginning of December for worsening of refractory ascites and transfusion-dependent portal gastropathy which improved transiently and has worsened again. I have called her inspector agricultural commodities in [facility] and she is out of town, so I talked to the mid-level provider. They did offer to either transfer her over or see her in the office next week for re-evaluation of her TIPS. As the patient's hemoglobin is stable and she wants to go home, we are going to let her do that and go to [place] next week to have her TIPS re-evaluated, possibly revised. She has been started on midodrine with improved blood pressure and improved renal perfusion. She states she is voiding better now. PLAN: The patient will be discharged home BuSpar, Tums, Klonopin. I have advised her to get off that medicine multiple times. Her primary care physician continues to provide it to her. B12, Flexeril, again I have advised that to be removed as well. Folvite, Lasix 40 mg p.o. b.i.d., lactulose 20 mg b.i.d., loratadine, I have recommended she get off that as well. Midodrine 5 mg p.o. t.i.d., Zofran p.r.n., Protonix , Xifaxan 550 p.o. b.i.d., Ultram p.r.n., Aldactone 100 mg b.i.d. I will talk with her hepatology mid-level about her discharge today and see if we can get her evaluated for repeat TIPS evaluation. She did have an echocardiogram on 02/10 that showed EF of 50% to 60% with a grade 1 of 3 diastolic dysfunction, mild MR, aortic valve sclerosis with a good opening, [id number] tricuspid regurgitation, normal right ventricular size and function, normal atrial size and function. Job ID: [id number]
== END 2019-02-16 14:19 | disposition home or self-care (01) | DRG 441 ==
LOC: ERS 09:27 → T4-B 12:28
PROVIDERS: ADMIT Family Medicine; ATTEND Family Medicine
PROC: 30233N1 Transfusion of Nonautologous Red Blood Cells into Peripheral Vein, Percutaneous Approach (ICD-10-PCS; 2019-02-10)
PROC: 0W3P8ZZ Control Bleeding in Gastrointestinal Tract, Via Natural or Artificial Opening Endoscopic (ICD-10-PCS; principal; 2019-02-12)
PROC: 0W9G30Z Drainage of Peritoneal Cavity with Drainage Device, Percutaneous Approach (ICD-10-PCS; 2019-02-13)
DX: K76.6 Portal hypertension (principal); K31.811 Angiodysplasia of stomach and duodenum with bleeding; R18.8 Other ascites; E87.1 Hypo-osmolality and hyponatremia; D61.818 Other pancytopenia; D64.9 Anemia, unspecified; N18.3 Chronic kidney disease, stage 3 (moderate); K74.60 Unspecified cirrhosis of liver; F32.9 Major depressive disorder, single episode, unspecified; I12.9 Hypertensive chronic kidney disease with stage 1 through stage 4 chronic kidney disease, or unspecified chronic kidney disease; K21.9 Gastro-esophageal reflux disease without esophagitis; F41.9 Anxiety disorder, unspecified; K72.10 Chronic hepatic failure without coma; K76.0 Fatty (change of) liver, not elsewhere classified; J45.909 Unspecified asthma, uncomplicated; K59.00 Constipation, unspecified; I95.9 Hypotension, unspecified; F17.210 Nicotine dependence, cigarettes, uncomplicated; K31.89 Other diseases of stomach and duodenum; Z88.5 Allergy status to narcotic agent; Z88.0 Allergy status to penicillin; Z90.49 Acquired absence of other specified parts of digestive tract; Z88.2 Allergy status to sulfonamides
CPT/HCPCS: 36415; 36416; 36430; 49083; 76705; 80048; 80053; 80306; 81003; 82140; 82150; 82607; 82668; 82728; 82746; 82945; 83036; 83540; 83550; 83615; 83690; 84157; 85025; 85060; 85610; 85730; 86850; 86900; 86901; 87070; 87205; 89051; 93005; J0744; J1940; J2405; J2704; J7050; P9016; P9047; Q0162

== ENCOUNTER 2019-02-21 12:01 | Day surgery (SDC) | payer OTHER ==
[2019-02-20 09:32] VITALS: BMI 27.3
[2019-02-21] MEDS ORDERED: Sodium Chloride 0.9% 10 ML ONE (12:28)
[2019-02-21 13:46] LABS: Anion Gap 9 mmol/L (10-20); BUN (Urea Nitrogen) 17 mg/dL (9.8-20.1); Calc. Creatinine Clearance 71 mL/min (70-130); Calcium 8.2 mg/dL (7.8-10.44); Carbon Dioxide 24 mmol/L (22-29); Chloride 98 mmol/L (98-107); Estimated GFR-MDRD 48; Glucose 215 mg/dL (70-105); Potassium 3.7 mmol/L (3.5-5.1); Sodium 127 mmol/L (136-145)
--- NOTE | 2019-02-21 13:49 | ULT ---
PREPROCEDURE DIAGNOSIS: Ascites POST PROCEDURE DIAGNOSIS: Same PROCEDURE: Ultrasound-guided paracentesis MEMBERSHIP SECRETARY: Mario ANESTHESIA: 6 mL of buffered 1% lidocaine. SPECIMEN: 7 L of straw-colored fluid TECHNIQUE: Prior to the procedure, the risks and benefits of an ultrasound guided paracentesis were explained to the patient which consented fully to the procedure. The area of the largest fluid collection was seen in the right lower quadrant of the abdomen. This a sylvie was prepped and draped in the usual sterile fashion. Lidocaine was used to anesthetize the skin and soft tissues down towards the peritoneal cavity. The p eritoneum was anesthetized. A small skin incision was made for passage of the Levantaeh needle and catheter. This device was then placed using ultrasound guidance into the peritoneal cavity. The needle was removed after return of fluid. The catheter was then connected to multiple Vacutainer bottles. A total of 7 L was removed. No residual fluid is seen in this region of the peritoneal cavity. IMPRESSION: Status post successful ultrasound-guided paracentesis
[2019-02-21 14:45] VITALS: BP 114/66; TEMP 98.5
[2019-02-21 15:02] LABS: Body Fluid Source Ascites Body Fluid; Clarity Hazy (Clear)
[2019-02-21 15:03] LABS: BF Color Yellow; BF RBC Count - Manual 56 /cumm; BF WBC/Nonhematics Ct. - Manua 20 /cumm; Tube # EDTA
[2019-02-21 15:44] LABS: BF Segmented Neutrophils 2 %; Cell Count Non Hematic 92 %; Lymphocytes 6 %
== END 2019-02-21 14:00 | disposition home or self-care (01) ==
LOC: ULT 12:01
PROVIDERS: ATTEND Internal Medicine Gastroenterology
PROC: 0W9G3ZX Drainage of Peritoneal Cavity, Percutaneous Approach, Diagnostic (ICD-10-PCS; principal; 2019-02-21)
DX: K74.60 Unspecified cirrhosis of liver (principal); R18.8 Other ascites; F41.9 Anxiety disorder, unspecified; J44.9 Chronic obstructive pulmonary disease, unspecified; G89.29 Other chronic pain; M54.9 Dorsalgia, unspecified; Z87.891 Personal history of nicotine dependence; Z79.899 Other long term (current) drug therapy; Z88.0 Allergy status to penicillin; Z88.2 Allergy status to sulfonamides; Z88.5 Allergy status to narcotic agent; Z88.8 Allergy status to other drugs, medicaments and biological substances; Z91.018 Allergy to other foods; Z98.890 Other specified postprocedural states
CPT/HCPCS: 49083; 80048; 82042; 84155; 85060; 87070; 87205; 89051

== ENCOUNTER 2019-02-24 19:06 | Observation (INO) | payer OTHER ==
[2019-02-24 19:46] LABS: #Eosinphils 0.3 thou/uL (0.0-0.7); #Lymphocytes 0.8 thou/uL (1.20-3.40); #Monocytes 0.7 thou/uL (0.11-0.59); #Neutrophils 3.5 thou/uL (1.40-6.50); %Lymphocytes 14.7 % (21.0-51.0); %Monocytes 13.1 % (0.0-10.0); %Neutrophils 66.3 % (42.0-75.0); Mean Corpuscular HGB CONC 34.5 g/dL (32.0-36.0); Mean Corpuscular Hemoglobin 33.1 pg (27.0-31.0); Mean Corpuscular Volume 95.9 fL (78.0-98.0); Mean Platelet Volume 7.2 fL (7.4-10.4); Platelet Count 121 thou/uL (130-400); RBC Distribution Width 14.1 % (11.5-14.5); White Blood Cell (WBC) Count 5.2 thou/uL (4.8-10.8)
[2019-02-24 20:05] LABS: ALT (SGPT) 17 U/L (8-55); AST (SGOT) 34 U/L (5-34); Albumin 2.7 g/dL (3.5-5.0); Alkaline Phosphatase 94 U/L (40-150); Anion Gap 13 mmol/L (10-20); BUN (Urea Nitrogen) 24 mg/dL (9.8-20.1); Bilirubin, Total 1.1 mg/dL (0.2-1.2); Calc. Creatinine Clearance 0 mL/min (70-130); Calcium 8.2 mg/dL (7.8-10.44); Carbon Dioxide 20 mmol/L (22-29); Chloride 97 mmol/L (98-107); Estimated GFR-MDRD 46; Globulin 2.3 g/dL (2.4-3.5); Glucose 206 mg/dL (70-105); Potassium 4.4 mmol/L (3.5-5.1); Sodium 126 mmol/L (136-145)
--- NOTE | 2019-02-24 21:38 | PDOC.FPRHP ---
- History of Present Illness Chief Complaint: weakness, dark stools History of Present Illness: 53 yo F with severe cirrhosis 2/2 NAFLD and transfusion dependent portal hypertensive gastropathy here for upper GI bleed. Today had 3 dark brown/green stools. Since then has been feeling weak and dizzy. She is well known to our service being frequently admitted for recurrent blood transfusions from gastric varical hemorrhaging secondary to cirrhotic portal hypertension. She follows with both GI locally and GI specialists in [place] with recent TIPS revision in December. Unfortunately she has continued to experience recurrent GI bleeds from TIPS malfunctioning. She has a follow up appointment with them March 22. GI was consulted from the ER who recommended PRBC with with AM reevaluation for endoscopic intervention. - Allergies/Adverse Reactions Allergies Allergy/AdvReac Type Severity Reaction Status Date / Time acetaminophen [From Tylenol] Allergy Verified 02/24/19 23:35 aspirin Allergy Verified 02/24/19 23:35 butorphanol [From Stadol] Allergy Verified 02/24/19 23:35 codeine Allergy Verified 02/21/19 14:47 morphine Allergy Verified 02/21/19 14:47 Penicillins Allergy vomiting Verified 02/21/19 14:47 silver Allergy Verified 02/21/19 14:47 [From Tegaderm AG Mesh] Sulfa (Sulfonamide Allergy Verified 02/21/19 14:47 Antibiotics) persimmon Allergy Uncoded 02/21/19 14:47 - Home Medications Medication Instructions Recorded Confirmed Type busPIRone HCl [Buspar] 10 mg PO BID 06/08/15 02/24/19 History Albuterol Sulfate [Proair HFA] 2 puff INH Q4HR PRN 10/20/17 02/24/19 History Iron,Carbonyl [Perfect Iron] 65 mg PO SEEPHYS 12/15/17 02/24/19 History Mometasone Furoate [Nasonex] 2 spray EA NARE DAILY 04/20/18 02/24/19 History Lactulose [Kristalose] 2 pack PO BID 11/09/18 02/24/19 History traMADol HCl [Tramadol HCl] 50 mg PO TID PRN 11/17/18 02/24/19 History Rifaximin [Xifaxan] 550 mg PO BID 12/25/18 02/24/19 History Spironolactone [Aldactone] 100 mg PO BID 01/10/19 02/24/19 History Cyanocobalamin (Vitamin B-12) 2,000 mcg PO DAILY 01/25/19 02/24/19 History [Vitamin B12] Magnesium Amino Acid Chelate 100 mg PO DAILY 01/25/19 02/24/19 History [Magnesium] Cyclobenzaprine [Flexeril] 10 mg PO DAILY PRN tab 01/26/19 02/24/19 Rx clonazePAM [Klonopin] 1 mg PO Q24HR PRN tab 01/26/19 02/24/19 Rx Furosemide [Lasix] 40 mg PO BID 02/07/19 02/24/19 History Folic Acid [Folvite] 1 mg PO DAILY #30 tab 02/15/19 02/24/19 Rx Midodrine HCl [ProAmatine] 5 mg PO TID-WM #42 tab 02/16/19 02/24/19 Rx Esomeprazole Magnesium [NexIUM] 40 mg PO DAILY 02/24/19 02/24/19 History - History PMHx: esophageal varices, gastric ectasia, duodenal AVM, gerd, asthma, cirrhosis 2/2 NAFLD s/p TIPS, anxiety, depression, anemia PSHx: esophageal variceal repair, cholecystectomy, c section x3, TIPS procedure (w/ revision), tonsillectomy FHx: noncontributory Social: Denies drug and alcohol, 1-2 cigarettes/day - Review of Systems General: denies: fever/chills, weight/appetite/sleep changes Eyes: denies: eye pain, vision changes ENT: denies: nasal congestion, rhinorrhea Respiratory: denies: cough Cardiovascular: reports: edema. denies: palpitation Gastrointestinal: reports: abdominal pain. denies: vomiting, diarrhea, constipation Genitourinary: denies: dysuria Skin: reports: jaundice. denies: rashes, lesions Musculoskeletal: denies: pain, tenderness Neurological: reports: weakness Psychological: reports: anxiety, depression - Vital signs BP: 93/68, Pulse: 107, Resp: 20, Temp: 98.1 (Oral), O2 sat: 98, Time: 02/24/2019 21:35. - Physical Exam Constitutional: NAD, awake, alert and oriented HEENT: normocephalic and atraumatic, PERRLA, EOMI, grossly normal vision -HEENT: jaundiced Neck: supple, FROM, trachea midline Heart: RRR, normal S1/S2 -Heart: systolic murmur Lungs: CTAB, no respiratory distress, good air movement Abdomen: soft -Abdomen: distended, no fluid wave shift Musculoskeletal: normal tone Neurological: no focal deficit, CN II-XII intact Skin: good turgor, capillary refill <2 seconds Heme/Lymphatic: no purpura Psychiatric: normal mood and affect, intact recent and remote memory FMR H&P: Results - Labs Result Diagrams: 02/24/19 19:35 02/24/19 19:35 Lab results: WBC 5.2 thou/uL (4.8-10.8) 02/24/19 19:35 Hgb 7.0 g/dL (12.0-16.0) L 02/24/19 19:35 Hct 20.2 % (36.0-47.0) L 02/24/19 19:35 MCV 95.9 fL (78.0-98.0) 02/24/19 19:35 Plt Count 121 thou/uL (130-400) L 02/24/19 19:35 Neutrophils % 66.3 % (42.0-75.0) 02/24/19 19:35 Sodium 126 mmol/L (136-145) L 02/24/19 19:35 Potassium 4.4 mmol/L (3.5-5.1) 02/24/19 19:35 Chloride 97 mmol/L (98-107) L 02/24/19 19:35 Carbon Dioxide 20 mmol/L (22-29) L 02/24/19 19:35 BUN 24 mg/dL (9.8-20.1) H 02/24/19 19:35 Creatinine 1.23 mg/dL (0.6-1.1) H 02/24/19 19:35 Glucose 206 mg/dL (70-105) H 02/24/19 19:35 Calcium 8.2 mg/dL (7.8-10.44) 02/24/19 19:35 Total Bilirubin 1.1 mg/dL (0.2-1.2) 02/24/19 19:35 AST 34 U/L (5-34) 02/24/19 19:35 ALT 17 U/L (8-55) 02/24/19 19:35 Alkaline Phosphatase 94 U/L (40-150) 02/24/19 19:35 Serum Total Protein 5.0 g/dL (6.0-8.3) L 02/24/19 19:35 Albumin 2.7 g/dL (3.5-5.0) L 02/24/19 19:35 FMR H&P: A/P - Problem List (1) Portal hypertensive gastropathy Current Visit: Yes Status: Acute Code(s): K76.6 - PORTAL HYPERTENSION; K31.89 - OTHER DISEASES OF STOMACH AND DUODENUM (2) Portal hypertension Current Visit: No Status: Acute Code(s): K76.6 - PORTAL HYPERTENSION (3) Cirrhosis Current Visit: No Status: Chronic Code(s): K74.60 - UNSPECIFIED CIRRHOSIS OF LIVER Qualifiers: Ascites presence: with ascites (4) Cirrhosis of liver with ascites Current Visit: No Status: Chronic Code(s): K74.60 - UNSPECIFIED CIRRHOSIS OF LIVER Comment: SPENCER with recurrent ascites, plan for US guided paracentesis in am, GI consult pending. (5) Depression Current Visit: No Status: Chronic Code(s): F32.9 - MAJOR DEPRESSIVE DISORDER , SINGLE EPISODE, UNSPECIFIED (6) Esophageal varices Current Visit: No Status: Chronic Code(s): I85.00 - ESOPHAGEAL VARICES WITHOUT BLEEDING (7) GERD (gastroesophageal reflux disease) Current Visit: No Status: Chronic Code(s): K21.9 - GASTRO-ESOPHAGEAL REFLUX DISEASE WITHOUT ESOPHAGITIS (8) HTN (hypertension) Current Visit: No Status: Chronic Code(s): I10 - ESSENTIAL (PRIMARY) HYPERTENSION (9) History of tobacco abuse Current Visit: No Status: Chronic Code(s): Z87.891 - PERSONAL HISTORY OF NICOTINE DEPENDENCE (10) Hyponatremia Current Visit: No Status: Chronic Code(s): E87.1 - HYPO-OSMOLALITY AND HYPONATREMIA (11) S/P TIPS (transjugular intrahepatic portosystemic shunt) Current Visit: No Status: Chronic (12) Upper GI bleed Current Visit: No Status: Resolved Code(s): K92.2 - GASTROINTESTINAL HEMORRHAGE, UNSPECIFIED - Plan #Symptomatic anemia 2/2 likely UGIB -portal hypertensive gastropathy vs. esophageal variceal bleeding -Hb 7.0, lower than baseline -GI consulted from ER, plan to transfuse 2 PRBCs, recheck AM H/H with AM eval for possible endoscopic intervention- NPO at midnight -Will start IV protonix -Appreciate GI recs #Liver failure with cirrhosis 2/2 NAFLD s/p TIPS -follows with GI in [place] -weekly paracentesis, may need one in hospital if here for long period -will start rocephin for SBP ppx #GERD -home meds #Anxiety/Depression -home meds #CKD3 -renal function at baseline #Chronic hyponatremia -likely from cirrohsis -Na 126, pt asx, Na at ba[place] #Pancytopenia -low plt, low hb -2/2 cirrhosis #Tobacco abuse -encourage cessation #Asthma -home meds dvt ppx: SCD gi ppx: IV pantoprazole dispo: >2 midnigths PCP: CARLY Code: Full Will discuss with Dr. Good FMR H&P: Upper Level - Pertinent history 53 y/o F PMHx cirrhosis and portal gastropathy s/p TIPS procedure and recurrent Upper GI bleeds presents with melena and feeling dizzy and lightheaded. She reports constant abdominal pain that has not changed from baseline and she reports nausea, but denies vomiting. She denies any hematochezia. She was recently seen in [place] and it is recommended that she has revision of her TIPS, but they will not be able to perform this until March. She was seen recently by Dr. Schmid who checked her Hb and it was 7.1. The patient denies any syncope. - Pertinent findings Vitals: BP 95/62, HR 108, RR 20, O2 sat 98% on RA PE: Gen - alert, oriented, resting comfortably in bed CV - tachycardic, regular rhythm, no murmurs Resp - CTAB, no wheezes Abd - distended, NTTP, + fluid wave Ext - 2+ pitting edema to bilateral knees Labs: Na 126, BUN 24, Cr 1.23, WBC 5.2, Hb 7.0, Hct 20.2, Platelet 121 - Plan Date/Time: 02/24/192137 I, Alana Rivera MD, PGY-2, have evaluated this patient and agree with findings/ plan as outlined by international trade specialist resident. Pertinent changes/additions are listed here. 1. Acute on Chronic Symptomatic Anemia 2/2 Upper GI Bleed Hb 7.0 on admission and patient symptomatic. -Transfuse 2U PRBC's and trend H/H -Dr. Schmid with GI was consulted from ED, appreciate recs -IV protonix -NPO 2. Cirrhosis with portal gastropathy and esophageal varices 2/2 SPENCER -Will give rocephin for SBP ppx -Continue diuretic regimen -Pt may need paracentesis while hospitalized as she receives one per week. Will monitor. 3. Hyponatremia Pt at baseline, will monitor 4. CKDIII Pt at baseline, will monitor Other chronic medical conditions - see international trade specialist note for plan Code Status: Full VTE ppx: SCD's
[2019-02-24] MEDS ORDERED: Ondansetron ODT 4 MG TAB SL PRN (22:35)
[2019-02-24] MEDS ORDERED: Ondansetron PF 4 MG/2 ML Vial IVP PRN (22:35)
[2019-02-24] MEDS ORDERED: Acetaminophen 325 MG TAB PO PRN (22:35)
[2019-02-24] MEDS ORDERED: Sodium Chloride 0.9% (PF) 10 ML VIAL FS PRN (22:50)
[2019-02-24] MEDS ORDERED: Pantoprazole 40 MG VIAL IVP SCH (23:00)
[2019-02-24 23:04] VITALS: BMI 33.7
[2019-02-25] MEDS ORDERED: traMADol HCl 50 MG TAB PO PRN (01:07)
[2019-02-25] MEDS ORDERED: clonazePAM 1 MG TAB PO PRN (01:07)
[2019-02-25] MEDS ORDERED: PROVENTIL INHALER 6.7 G (200 INHALATIONS) INH PRN (01:07)
[2019-02-25] MEDS ORDERED: Cyclobenzaprine 10 MG TAB PO PRN (01:07)
[2019-02-25] MEDS ORDERED: cefTRIAXone\\ROCEPHIN 1 GM in Sodium Chloride 0.9% 100 ML IVPB SCH ×2 (02:00→09:00)
--- NOTE | 2019-02-25 07:20 | PDOC.FM ---
- Objective MAR Reviewed: Yes Vital Signs & Weight: Vital Signs (12 hours) Temp Pulse Resp BP Pulse Ox 02/25/19 02:09 98.7 F 103 H 18 111/58 L 100 02/24/19 22:48 98.3 F 108 H 18 121/89 100 Weight Weight 94.801 kg I&O: 02/24/19 02/25/19 02/26/19 06:59 06:59 06:59 Intake Total 1100 Balance 1100 Result Diagrams: 02/25/19 08:30 02/25/19 08:30 Phys Exam - Physical Examination Constitutional: NAD HEENT: moist MMs Neck: supple Respiratory: no wheezing, clear to auscultation bilateral Cardiovascular: RRR, no significant murmur Gastrointestinal: soft, non-tender, positive bowel sounds ascities present Musculoskeletal: edema present Neurological: moves all 4 limbs Psychiatric: normal affect, A&O x 3 Skin: no rash Dx/Plan (1) Portal hypertensive gastropathy Code(s): K76.6 - PORTAL HYPERTENSION; K31.89 - OTHER DISEASES OF STOMACH AND DUODENUM Status: Acute (2) ZACHARY (acute kidney injury) Code(s): N17.9 - ACUTE KIDNEY FAILURE, UNSPECIFIED Status: Acute (3) Portal hypertension Code(s): K76.6 - PORTAL HYPERTENSION Status: Acute (4) Symptomatic anemia Code(s): D64.9 - ANEMIA, UNSPECIFIED Status: Acute (5) Asthma Code(s): J45.909 - UNSPECIFIED ASTHMA, UNCOMPLICATED Status: Chronic (6) CKD (chronic kidney disease) stage 3, GFR 30-59 ml/min Code(s): N18.3 - CHRONIC KIDNEY DISEASE, STAGE 3 (MODERATE) Status: Chronic (7) Cirrhosis Code(s): K74.60 - UNSPECIFIED CIRRHOSIS OF LIVER Status: Chronic Qualifiers: Ascites presence: with ascites (8) DM type 2 (diabetes mellitus, type 2) Status: Chronic (9) Depression Code(s): F32.9 - MAJOR DEPRESSIVE DISORDER, SINGLE EPISODE, UNSPECIFIED Status : Chronic (10) Esophageal varices Code(s): I85.00 - ESOPHAGEAL VARICES WITHOUT BLEEDING Status: Chronic (11) GERD (gastroesophageal reflux disease) Code(s): K21.9 - GASTRO-ESOPHAGEAL REFLUX DISEASE WITHOUT ESOPHAGITIS Status: Chronic (12) HTN (hypertension) Code(s): I10 - ESSENTIAL (PRIMARY) HYPERTENSION Status: Chronic (13) History of tobacco abuse Code(s): Z87.891 - PERSONAL HISTORY OF NICOTINE DEPENDENCE Status: Chronic (14) Hyponatremia Code(s): E87.1 - HYPO-OSMOLALITY AND HYPONATREMIA Status: Chronic (15) S/P TIPS (transjugular intrahepatic portosystemic shunt) Status: Chronic (16) Tobacco abuse Code(s): Z72.0 - TOBACCO USE Status: Chronic - Plan Plan: Symptomatic anemia 2/2 likely UGIB - Portal HTN gastropathy vs. esophageal variceal bleeding - Initial Hb 7.0, pending this mornings CBC s/p 2U pRBCs - NPO - Continue IV protonix - GI consulted, apprec recs - Ordered PT/INR - Consider starting Octreotide Liver failure with cirrhosis 2/2 NAFLD s/p TIPS - Follows with GI in [place] - Continue rocephin for SBP ppx GERD - Continue home meds Anxiety/Depression - Continue home meds CKD3 - at baseline Chronic hyponatremia 2/2 cirrhosis - Na 126, at baseline - Continue to monitor with daily BMP Pancytopenia - low plt, low hb - 2/2 cirrhosis Tobacco abuse - Encourage cessation Asthma - Continue home meds Code Status: FULL DVT ppx: SCD GI ppx: IV pantoprazole PCP: CARLY
[2019-02-25] MEDS ORDERED: Cyanocobalamin (Vitamin B-12) 1,000 MCG TAB PO SCH (09:00)
[2019-02-25] MEDS ORDERED: Folic Acid 1 MG TAB PO SCH (09:00)
[2019-02-25] MEDS ORDERED: Fluticasone Propionate Nasal Spray 16 gm Bottle NASAL SCH (09:00)
[2019-02-25] MEDS ORDERED: Spironolactone 100 MG TAB PO SCH (09:00)
[2019-02-25] MEDS ORDERED: Rifaximin 550 MG TAB PO SCH (09:00)
[2019-02-25] MEDS ORDERED: busPIRone HCl 10 MG TAB PO SCH (09:00)
[2019-02-25] MEDS ORDERED: IRON 65 MG PO SCH (09:00)
[2019-02-25] MEDS ORDERED: Furosemide 40 MG TAB PO SCH (09:00)
[2019-02-25] MEDS ORDERED: Pantoprazole 40 MG VIAL IVP SCH (09:00)
[2019-02-25 09:03] LABS: INR-International Normal Ratio 1.3; PTT 40.9 SEC (22.9-36.1); Prothrombin Time 16.6 SEC (12.0-14.7)
[2019-02-25 09:10] LABS: Hemoglobin 8.7 g/dL (12.0-16.0); Mean Corpuscular HGB CONC 33.1 g/dL (32.0-36.0); Mean Corpuscular Hemoglobin 31.4 pg (27.0-31.0); Mean Corpuscular Volume 94.9 fL (78.0-98.0); Mean Platelet Volume 6.8 fL (7.4-10.4); Platelet Count 90 thou/uL (130-400); RBC Distribution Width 14.5 % (11.5-14.5); Red Blood Cell (RBC) Count 2.76 mill/uL (4.20-5.40); White Blood Cell (WBC) Count 3.9 thou/uL (4.8-10.8)
[2019-02-25 09:21] LABS: Anion Gap 11 mmol/L (10-20); BUN (Urea Nitrogen) 22 mg/dL (9.8-20.1); Calc. Creatinine Clearance 87 mL/min (70-130); Calcium 7.9 mg/dL (7.8-10.44); Carbon Dioxide 22 mmol/L (22-29); Chloride 98 mmol/L (98-107); Estimated GFR-MDRD 50; Glucose 161 mg/dL (70-105); Potassium 4.3 mmol/L (3.5-5.1); Sodium 127 mmol/L (136-145)
[2019-02-25] MEDS: Midodrine HCl 5 MG TAB PO SCH ×2 (09:27→13:18)
[2019-02-25 10:16] LABS: #Eosinphils 0.3 thou/uL (0.0-0.7); #Lymphocytes 0.6 thou/uL (1.20-3.40); #Monocytes 0.5 thou/uL (0.11-0.59); #Neutrophils 2.5 thou/uL (1.40-6.50); %Basophils 0.9 % (0.0-1.0); %Eosinophils 6.9 % (0.0-10.0); %Lymphocytes 14.6 % (21.0-51.0); %Monocytes 13.8 % (0.0-10.0); %Neutrophils 63.9 % (42.0-75.0); Hypochromia MODERATE=16-30 cells (100X) (0-5/hpf); MDiff Complete? YES; Platelet Morphology Comment Appears Decreased
[2019-02-25 13:43] VITALS: BP 102/64; TEMP 98.7
--- NOTE | 2019-02-25 17:59 | CON ---
DATE OF CONSULTATION: 02/25/2019 CHIEF COMPLAINT: Shortness of breath. HISTORY OF PRESENT ILLNESS: Ms. 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 She has known anemia and her last hemoglobin was 7 the day before, so she was sent on to the emergency room to get re-evaluated due to chronic bleeding. In the ER last night, she was found to still have a stable hemoglobin at 7.0, and she was transfused 2 units of blood and her hemoglobin is 8.7 today. Today, she feels better. She has no ongoing shortness of breath. She has had some intermittent abdominal pain which is chronic related to her ascites. She has been getting paracentesis every Wednesday. Her abdomen is not tense now and she has no acute complaints currently. PAST MEDICAL HISTORY: Cirrhosis secondary to SPENCER and past alcohol; depression, anxiety, asthma, gastroesophageal reflux, chronic GI bleeding from gastric antral vascular ectasia, and history of esophageal varices, status post TIPS. Chronic anemia from chronic GI blood loss. PAST SURGICAL HISTORY: Cholecystectomy, , TIPS, and multiple endoscopies. FAMILY HISTORY: Negative for GI malignancy. SOCIAL HISTORY: No alcohol. She does smoke 1 to 2 cigarettes per day. No drugs. ALLERGIES: CODEINE, MORPHINE, PENICILLIN, SILVER, SULFA AND PERSIMMON. OUTPATIENT MEDICATIONS: Include Xifaxan 550 mg twice daily, spironolactone 100 mg twice daily, furosemide 40 mg twice daily, tramadol, clonazepam, buspirone, Nasonex, midodrine 5 mg t.i.d., magnesium, lactulose, iron, folic acid, esomeprazole 40 mg daily, Flexeril, B12, and albuterol. REVIEW OF SYSTEMS: Negative x10 systems reviewed except as stated in history of present illness. PHYSICAL EXAMINATION: VITAL SIGNS: Temperature 98.5, pulse 95, and blood pressure 104/57. GENERAL: She is in no acute distress. Alert and oriented x3. HEENT: Her eyes have no scleral icterus. Oropharynx is clear without lesions. No cervical or supraclavicular lymphadenopathy. LUNGS: Clear to auscultation bilaterally. HEART: Regular rate and rhythm without murmur. ABDOMEN: Soft. She is diffusely distended with ascites, but she is not tense. Her bowel sounds are present and active. EXTREMITIES: 1 to 2+ pitting lower extremity edema. NEUROLOGIC: She has no asterixis on neurological exam. LABORATORY DATA: White blood cell count 3.9, hemoglobin 8.7, and platelets are 90. INR 1.3. Creatinine 1.15. Sodium 127. IMPRESSION: 1. Anemia for chronic GI blood loss. Her hemoglobin is improved to 8.7 after 2 units transfusion. Baseline hemoglobin was 7. Her symptoms have improved now. She has known gastric antral vascular ectasia, which I and my partners have cauterized multiple times in the past. I think repeat endoscopy at this time will unlikely be helpful. She has followup scheduled with the transplant center to evaluate her TIPS. For now, I would just transfuse as necessary and currently she is having no overt GI bleeding and I think she could be discharged home today. 2. History of hepatic encephalopathy, on lactulose and Xifaxan. Her symptoms are currently well controlled. 3. Ascites. I will restart a low-salt diet today. She is on multiple diuretics and undergoes paracentesis scheduled every Wednesday at this point. RECOMMENDATIONS: 1. Continue diuretics. 2. Continue Xifaxan and lactulose. 3. Keep followup on Wednesday to recheck her hemoglobin and for paracentesis. 4. Recommend discharge home today. I will sign off. Please call if GI can be of assistance. Job ID: [id number]
--- NOTE | 2019-02-27 03:09 | DIS ---
DATE OF ADMISSION: 02/24/2019 DATE OF DISCHARGE: 02/25/2019 RESIDENT: Laine Coker, PGY-1 ADMITTING ATTENDING: Ruben Good MD DISCHARGE ATTENDING: Ruben Good MD CONSULTS: GI. PROCEDURES: None. PRIMARY DIAGNOSES: 1. Symptomatic anemia secondary to likely upper gastrointestinal bleed. 2. Liver failure with cirrhosis secondary to nonalcoholic fatty liver disease, status post transjugular intrahepatic portosystemic shunt. SECONDARY DIAGNOSES: 1. Gastroesophageal reflux disease. 2. Anxiety and depression. 3. Chronic kidney disease 3. 4. Chronic hyponatremia secondary to cirrhosis. 5. Pancytopenia. 6. Tobacco abuse. 7. Asthma. DISCHARGE MEDICATIONS: 1. Albuterol 2 inhalations q.4 hours p.r.n. 2. BuSpar 10 mg b.i.d. 3. Klonopin 1 mg daily p.r.n. 4. Vitamin B12, 2000 mcg daily. 5. Lexapro 10 mg daily. 6. Nexium 40 mg daily. 7. Folic acid 1 mg daily. 8. Lasix 40 mg b.i.d. 9. Iron carbonyl 65 mg p.o. 2 tabs in the morning and 1 tab in the evening. 10. Lactulose 2 packs b.i.d. 11. Magnesium 100mg daily. 12. Midodrine 5 mg t.i.d. 13. Nasonex 2 sprays each naris daily. 14. Rifaximin 550 mg b.i.d. 15. Spironolactone 100 mg b.i.d. 16. Tramadol 50 mg t.i.d. HISTORY OF PRESENT ILLNESS/HOSPITAL COURSE: Ms. Gonzalez is a 53-year-old female with cirrhosis secondary to nonalcoholic fatty liver disease, status post TIPS and transfusion dependent portal hypertension, hypertensive gastropathy, here for upper GI bleed. Patient was weak and dizzy, which has what brought her into the emergency department. She is frequently admitted for recurrent blood transfusions from gastric variceal hemorrhaging secondary to cirrhotic portal hypertension. She had a recent TIPS procedure in December and follows with a GI doctor in [place] as well as [place]. Patient received 2 units packed red blood cells. Initial hemoglobin was 7. Discharge hemoglobin 8.7. Other notable labs include sodium 126, 127 at discharge; creatinine 1.23, 1.15. The patient was managed with IV Protonix. Rocephin was started for SBP prophylaxis. GI was consulted and Dr. Cota evaluated the patient, who reported that she has known gastric antral vascular ectasia that has been cauterized multiple times in the past. It was his recommendation that endoscopy at this time would be unlikely to be helpful. She has a followup scheduled at the transplant center. He recommended transfusing as necessary, to continue diuretics and medications for hepatic encephalopathy to continue weekly paracentesis and that she was safe for discharge. DISPOSITION: Stable. DISCHARGE INSTRUCTIONS: 1. Location: Home. 2. Diet: Low salt. 3. Activity: No restrictions. 4. Follow up with GI specialist in [place] as well as [place], [place]. Follow up with PCP within 7 to 10 days. Job ID: [id number] MITCHELL
--- NOTE | 2019-02-27 08:45 | HP ---
ADDENDUM: Please see the history and physical done by Dr. Vanessa Small, for which I agree. HISTORY OF PRESENT ILLNESS: This is a 53-year-old female, well known to the family medicine residency service frequent admits for cirrhosis and portal hypertensive gastropathy. She frequently gets GI bleeds and comes in basically feeling a little bit weaker and was told by GI that her hemoglobin was low, and when she came in, her hemoglobin was at 7, this is a little bit lower than her usual state. No active melena or anything like that. She is not vomiting blood, has chronic ascites, does not look like any major changes. She is not having respiratory problem nor does she feel like she has more ascites than usual. It sounds like she has weekly paracentesis that she gets. ALLERGIES: PER DR. SMALL'S HISTORY AND PHYSICAL, FOR WHICH I AGREE AND WAS REVIEWED IN FULL. HOME MEDICATIONS: Per Dr. Small's history and physical, for which I agree and was reviewed in full. PAST MEDICAL HISTORY: Per Dr. Small's history and physical, for which I agree and was reviewed in full. PAST SURGICAL HISTORY: Per Dr. Small's history and physical, for which I agree and was reviewed in full. FAMILY HISTORY: Per Dr. Small's history and physical, for which I agree and was reviewed in full. SOCIAL HISTORY: Per Dr. Small's history and physical, for which I agree and was reviewed in full. REVIEW OF SYSTEMS: Per Dr. Small's history and physical, for which I agree and was reviewed in full. PHYSICAL EXAMINATION: GENERAL: Icteric, no apparent distress. Alert and oriented x3. HEENT: Conjunctivae slightly pale. Moist mucosa. NECK: No lymphadenopathy or thyromegaly. CHEST: Clear. CARDIOVASCULAR: Regular rate and rhythm. ABDOMEN: Little bit of ascites and nontender. EXTREMITIES: No edema. LABORATORY DATA: Hemoglobin was 7. Sodium a little bit low at 126, BUN 24, and creatinine 1.23. Sugar was high at 206. White count was fine. ASSESSMENT AND PLAN: Gastrointestinal bleed with known portal hypertension and complications. We have already discussed with GI, and the fact that she is stable and now is given a couple of units of blood, will probably be able to be sent out today, and we will continue same home medications including medicines for hepatic encephalopathy prevention and proton pump inhibitor b.i.d., etc. It sounds like she may need to get her redone by a specialist in [place] and we will follow up with them, but we will see what LEORA says otherwise. I am not sure if the sugar is a new issue or not, but we will monitor that; otherwise, continue the same home medicines. Job ID: [id number]
== END 2019-02-25 15:58 | disposition home or self-care (01) ==
LOC: ERS 19:06 → ONC 22:31
PROVIDERS: ADMIT Family Medicine; ATTEND Family Medicine
DX: D64.9 Anemia, unspecified (principal); K72.90 Hepatic failure, unspecified without coma; K76.0 Fatty (change of) liver, not elsewhere classified; K74.60 Unspecified cirrhosis of liver; I85.10 Secondary esophageal varices without bleeding; R18.8 Other ascites; E87.1 Hypo-osmolality and hyponatremia; K76.6 Portal hypertension; K31.89 Other diseases of stomach and duodenum; K92.2 Gastrointestinal hemorrhage, unspecified; K21.9 Gastro-esophageal reflux disease without esophagitis; F32.9 Major depressive disorder, single episode, unspecified; F41.9 Anxiety disorder, unspecified; I12.9 Hypertensive chronic kidney disease with stage 1 through stage 4 chronic kidney disease, or unspecified chronic kidney disease; E11.22 Type 2 diabetes mellitus with diabetic chronic kidney disease; N18.3 Chronic kidney disease, stage 3 (moderate); N17.9 Acute kidney failure, unspecified; D61.818 Other pancytopenia; J45.909 Unspecified asthma, uncomplicated; F17.210 Nicotine dependence, cigarettes, uncomplicated; Z96.89 Presence of other specified functional implants; Z88.6 Allergy status to analgesic agent; Z88.5 Allergy status to narcotic agent; Z88.0 Allergy status to penicillin; Z88.2 Allergy status to sulfonamides; Z91.018 Allergy to other foods; Z88.3 Allergy status to other anti-infective agents; Z79.899 Other long term (current) drug therapy
CPT/HCPCS: 36415; 36430; 80048; 80053; 85025; 85610; 85730; 86850; 86900; 86901; 93005; 94760; 96365; 96375; 96376; C9113; G0378; J0696; J3490; P9016

== ENCOUNTER 2019-02-28 08:37 | Day surgery (SDC) | payer OTHER ==
[2019-02-27 11:08] VITALS: BMI 34.7
[2019-02-28 09:16] LABS: Anion Gap 12 mmol/L (10-20); BUN (Urea Nitrogen) 19 mg/dL (9.8-20.1); Calc. Creatinine Clearance 77 mL/min (70-130); Calcium 7.8 mg/dL (7.8-10.44); Carbon Dioxide 23 mmol/L (22-29); Chloride 95 mmol/L (98-107); Estimated GFR-MDRD 41; Glucose 178 mg/dL (70-105); Potassium 4.1 mmol/L (3.5-5.1); Sodium 126 mmol/L (136-145)
[2019-02-28] MEDS ORDERED: Albumin 25% 200 ML ONE (09:29)
[2019-02-28] MEDS ORDERED: Sodium Bicarbonate 2.5 MEQ/5 ML VIAL ONE ×2 (09:29→10:11)
--- NOTE | 2019-02-28 11:36 | ULT ---
US Paracentesis with Imaging History: Ascites Comparison: Paracentesis February 21, 2019 Findings: Patient was brought to the ultrasound suite. All questions were answered. Informed consent was obtained. Timeout performed. Patient's left lower quadrant was prepped and draped in normal sterile fashion. 3 mL lidocaine was in stilled into the superficial and deep soft tissues. After adequate anesthesia, a 5 Portuguese Yueh needle was used to access the peritoneal space. 7000 mL of ascites was removed. Patient tolerated the procedure well without complication. Impression: Technically successful ultrasound-guided paracentesis.
[2019-02-28 12:12] VITALS: BP 110/63; TEMP 97.8
[2019-02-28 15:46] LABS: BF Color Yellow; BF RBC Count - Manual 391 /cumm; BF WBC/Nonhematics Ct. - Manua 23 /cumm; Body Fluid Source Ascites Body Fluid; Clarity Hazy (Clear); Tube # EDTA
[2019-02-28 15:50] LABS: BF Segmented Neutrophils 1 %; Cell Count Non Hematic 78 %; Eosinophils 1 %; Lymphocytes 18 %
== END 2019-02-28 11:45 | disposition home or self-care (01) ==
LOC: ULT 08:37
PROVIDERS: ATTEND Internal Medicine Gastroenterology
PROC: 0W9G3ZZ Drainage of Peritoneal Cavity, Percutaneous Approach (ICD-10-PCS; principal; 2019-02-28)
DX: R18.8 Other ascites (principal)
CPT/HCPCS: 36415; 49083; 80048; 82042; 84157; 85060; 87070; 87205; 89051; P9047

== ENCOUNTER 2019-03-07 08:40 | Day surgery (SDC) | payer OTHER ==
[2019-03-06 16:39] VITALS: BMI 38.2
[2019-03-07 09:07] LABS: INR-International Normal Ratio 1.3; Prothrombin Time 16.3 SEC (12.0-14.7)
[2019-03-07 09:12] LABS: Hemoglobin 6.9 g/dL (12.0-16.0); Mean Corpuscular HGB CONC 32.8 g/dL (32.0-36.0); Mean Corpuscular Hemoglobin 31.9 pg (27.0-31.0); Mean Corpuscular Volume 97.4 fL (78.0-98.0); Mean Platelet Volume 6.8 fL (7.4-10.4); Platelet Count 128 thou/uL (130-400); RBC Distribution Width 14.7 % (11.5-14.5); Red Blood Cell (RBC) Count 2.17 mill/uL (4.20-5.40); White Blood Cell (WBC) Count 4.3 thou/uL (4.8-10.8)
[2019-03-07 09:23] LABS: Anion Gap 11 mmol/L (10-20); BUN (Urea Nitrogen) 25 mg/dL (9.8-20.1); Calc. Creatinine Clearance 88 mL/min (70-130); Carbon Dioxide 23 mmol/L (22-29); Chloride 100 mmol/L (98-107); Estimated GFR-MDRD 44; Glucose 198 mg/dL (70-105); Potassium 4.4 mmol/L (3.5-5.1); Sodium 130 mmol/L (136-145)
[2019-03-07] MEDS ORDERED: Albumin 25% 100 ML ONE (09:57)
[2019-03-07] MEDS ORDERED: Sodium Bicarbonate 2.5 MEQ/5 ML VIAL ONE (09:57)
--- NOTE | 2019-03-07 12:38 | ULT ---
Exam: Ultrasound guided paracentesis HISTORY: Ascites COMPARISON: 02/28/2019 FINDINGS: Successful ultrasound-guided paracentesis. Total of 5 L slightly yellow ascites was aspirat ed. TECHNIQUE: Consent obtained reformatory ultrasound-guided paracentesis. Right lower quadrant was deem ed appropriate. Skin was prepped and draped in a sterile fashion. 1% lidocaine, buffered with sodium bicarbonate was used for local anesthesia. Under ultrasound guidance, a 5 Cameroonian 7 cm Yueh cat heter is advanced in the peritoneal space. A total of 5 L slightly yellow ascites was aspirated. No immediate or postprocedural complications IMPRESSION: Successful ultrasound-guided paracentesis.
== END 2019-03-07 12:10 | disposition home or self-care (01) ==
LOC: ULT 08:40
PROVIDERS: ATTEND Internal Medicine Gastroenterology
PROC: 0W9G3ZZ Drainage of Peritoneal Cavity, Percutaneous Approach (ICD-10-PCS; principal; 2019-03-07)
DX: K74.60 Unspecified cirrhosis of liver (principal); R18.8 Other ascites; I10 Essential (primary) hypertension; J44.9 Chronic obstructive pulmonary disease, unspecified; G89.29 Other chronic pain; M54.9 Dorsalgia, unspecified; K21.9 Gastro-esophageal reflux disease without esophagitis; M19.90 Unspecified osteoarthritis, unspecified site; E11.9 Type 2 diabetes mellitus without complications; Z87.891 Personal history of nicotine dependence; Z79.899 Other long term (current) drug therapy; Z88.0 Allergy status to penicillin; Z88.2 Allergy status to sulfonamides; Z88.5 Allergy status to narcotic agent; Z88.8 Allergy status to other drugs, medicaments and biological substances; Z91.018 Allergy to other foods; Z91.048 Other nonmedicinal substance allergy status; Z98.890 Other specified postprocedural states
CPT/HCPCS: 36415; 49083; 80048; 85027; 85610; P9047

== ENCOUNTER 2019-03-08 08:21 | Day surgery (SDC) | payer OTHER ==
[2019-03-08] MEDS ORDERED: Acetaminophen 325 MG TAB PO SCH (09:00)
[2019-03-08] MEDS ORDERED: Sodium Chloride 0.9% 20 ML ONE (09:28)
[2019-03-08 15:50] VITALS: BP 99/55; TEMP 98.2
== END 2019-03-08 15:50 | disposition home or self-care (01) ==
LOC: ONC/OP 08:21
PROVIDERS: ATTEND Internal Medicine Gastroenterology
DX: D64.9 Anemia, unspecified (principal); K74.60 Unspecified cirrhosis of liver; R18.8 Other ascites; Z88.2 Allergy status to sulfonamides; Z88.5 Allergy status to narcotic agent; Z88.0 Allergy status to penicillin; Z88.6 Allergy status to analgesic agent; Z91.018 Allergy to other foods; Z91.048 Other nonmedicinal substance allergy status
CPT/HCPCS: 36430; 86850; 86900; 86901; P9016

== ENCOUNTER 2019-03-14 08:45 | Day surgery (SDC) | payer OTHER ==
[2019-03-13 12:47] VITALS: BMI 34.7
[2019-03-14] MEDS ORDERED: Sodium Bicarbonate 2.5 MEQ/5 ML VIAL ONE (09:09)
[2019-03-14] MEDS ORDERED: Albumin 25% 100 ML ONE (09:09)
[2019-03-14] MEDS ORDERED: Lidocaine 1% PF 5 ML VIAL ONE (09:09)
[2019-03-14 09:12] LABS: INR-International Normal Ratio 1.4; Prothrombin Time 16.7 SEC (12.0-14.7)
[2019-03-14 09:23] LABS: Hemoglobin 7.8 g/dL (12.0-16.0); Mean Corpuscular HGB CONC 33.7 g/dL (32.0-36.0); Mean Corpuscular Hemoglobin 33.1 pg (27.0-31.0); Mean Corpuscular Volume 98.1 fL (78.0-98.0); Mean Platelet Volume 6.6 fL (7.4-10.4); Platelet Count 83 thou/uL (130-400); RBC Distribution Width 14.2 % (11.5-14.5); Red Blood Cell (RBC) Count 2.35 mill/uL (4.20-5.40); White Blood Cell (WBC) Count 4.6 thou/uL (4.8-10.8)
[2019-03-14 09:25] LABS: Anion Gap 10 mmol/L (10-20); BUN (Urea Nitrogen) 18 mg/dL (9.8-20.1); Calc. Creatinine Clearance 85 mL/min (70-130); Calcium 7.9 mg/dL (7.8-10.44); Carbon Dioxide 23 mmol/L (22-29); Chloride 97 mmol/L (98-107); Estimated GFR-MDRD 46; Glucose 200 mg/dL (70-105); Potassium 4.5 mmol/L (3.5-5.1); Sodium 125 mmol/L (136-145)
[2019-03-14 10:04] LABS: Band 2 % (5-11); Eosinophils 6 % (0-10); Lymphocytes 19 % (21-51); MDiff Complete? YES; Monocytes 7 % (0-10); Neutrophil 65 % (42-75); Platelet Morphology Comment Appears Decreased; Polychromasia SLIGHT = 2-3 cells (100X) (0-2/hpf)
[2019-03-14] MEDS ORDERED: Sodium Chloride 0.9% 10 ML ONE (10:10)
[2019-03-14 13:26] VITALS: BP 100/60; TEMP 98
--- NOTE | 2019-03-14 13:55 | ULT ---
Sonographic guided paracentesis HISTORY: Recurrent ascites. FINDINGS: After explaining the procedure and answering all questions, sonographic survey shows large amount of free fluid throughout the abdomen. Sterile technique, buffered local anesthesia, sonographic guidance, and a right lower quadrant approach were used to carefully advance a 19-gauge Y ueh needle and catheter into the free fluid. The catheter was left to drain a total volume of 5.0 L slightly turbid yellow liquid. Patient was limited to 5 L based on clinical status. Moderate amount o f free fluid remains. Catheter was removed. Patient tolerated the procedure well and was dismissed in good condition. IMPRESSION: Technically successful sonographic guided paracentesis.
== END 2019-03-14 12:20 | disposition home or self-care (01) ==
LOC: ULT 08:45
PROVIDERS: ATTEND Internal Medicine Gastroenterology
PROC: 0W9G3ZZ Drainage of Peritoneal Cavity, Percutaneous Approach (ICD-10-PCS; principal; 2019-03-14)
DX: K74.60 Unspecified cirrhosis of liver (principal); R18.8 Other ascites; J44.9 Chronic obstructive pulmonary disease, unspecified; G89.29 Other chronic pain; M54.9 Dorsalgia, unspecified; I12.9 Hypertensive chronic kidney disease with stage 1 through stage 4 chronic kidney disease, or unspecified chronic kidney disease; E11.22 Type 2 diabetes mellitus with diabetic chronic kidney disease; N18.9 Chronic kidney disease, unspecified; K21.9 Gastro-esophageal reflux disease without esophagitis; Z87.891 Personal history of nicotine dependence; Z79.899 Other long term (current) drug therapy; Z88.0 Allergy status to penicillin; Z88.2 Allergy status to sulfonamides; Z88.5 Allergy status to narcotic agent; Z88.8 Allergy status to other drugs, medicaments and biological substances; Z91.018 Allergy to other foods; Z98.890 Other specified postprocedural states
CPT/HCPCS: 36415; 49083; 80048; 85025; 85610; J2001; P9047

== ENCOUNTER 2019-03-17 11:51 | Day surgery (SDC) | payer OTHER ==
[2019-03-17] MEDS ORDERED: Acetaminophen 325 MG TAB PO SCH (12:45)
[2019-03-17 14:30] LABS: Hemoglobin 7.8 g/dL (12.0-16.0)
[2019-03-17 18:32] VITALS: BP 93/51
[2019-03-17 19:54] VITALS: TEMP 98.4
[2019-03-17 21:03] LABS: Hemoglobin 8.5 g/dL (12.0-16.0)
== END 2019-03-17 19:47 | disposition home or self-care (01) ==
LOC: ONC/OP 11:51 → 2SW 11:54 → ONC/OP 19:47
PROVIDERS: ATTEND Internal Medicine Gastroenterology
DX: D64.9 Anemia, unspecified (principal); K74.60 Unspecified cirrhosis of liver; R18.8 Other ascites; Z88.5 Allergy status to narcotic agent; Z88.0 Allergy status to penicillin; Z88.2 Allergy status to sulfonamides; Z88.6 Allergy status to analgesic agent; Z91.048 Other nonmedicinal substance allergy status; Z91.018 Allergy to other foods
CPT/HCPCS: 36415; 36430; 85014; 85018; 86850; 86900; 86901; P9016

== ENCOUNTER 2019-03-21 09:06 | Day surgery (SDC) | payer OTHER ==
[2019-03-20 14:04] VITALS: BMI 27.3
[2019-03-21] MEDS ORDERED: Sodium Bicarbonate 2.5 MEQ/5 ML VIAL ONE (10:04)
[2019-03-21] MEDS ORDERED: Sodium Chloride 0.9% 10 ML ONE (10:04)
[2019-03-21] MEDS ORDERED: Albumin 25% 200 ML ONE (12:02)
--- NOTE | 2019-03-21 12:10 | ULT ---
Exam: Ultrasound guided paracentesis HISTORY: Ascites COMPARISON: Prior examination dated 03/14/2019 FINDINGS: Successful ultrasound-guided paracentesis. Total of 7 L of normal appearingascites was aspi rated. TECHNIQUE: Consent obtained reformatory ultrasound-guided paracentesis. Right lower quadrant was deem ed appropriate. Skin was prepped and draped in a sterile fashion. 1% lidocaine, buffered with sodium bicarbonate was used for local anesthesia. Under ultrasound guidance, a 5 Nepali 7 cm Yueh cat heter is advanced in the peritoneal space. A total of 7 L of normal appearingascites was aspirated. No immediate or postprocedural complications IMPRESSION: Successful ultrasound-guided paracentesis.
[2019-03-21 16:01] LABS: Reference Lab Name LABCORP
[2019-03-21 16:02] LABS: Ref Lab Test Ordered NICOTINE UR
== END 2019-03-21 11:40 | disposition home or self-care (01) ==
LOC: ULT 09:06
PROVIDERS: ATTEND Internal Medicine Gastroenterology
PROC: 0W9G3ZX Drainage of Peritoneal Cavity, Percutaneous Approach, Diagnostic (ICD-10-PCS; principal; 2019-03-21)
DX: K74.60 Unspecified cirrhosis of liver (principal); R18.8 Other ascites; I12.9 Hypertensive chronic kidney disease with stage 1 through stage 4 chronic kidney disease, or unspecified chronic kidney disease; E11.22 Type 2 diabetes mellitus with diabetic chronic kidney disease; N18.9 Chronic kidney disease, unspecified; D63.1 Anemia in chronic kidney disease; K21.9 Gastro-esophageal reflux disease without esophagitis; F41.9 Anxiety disorder, unspecified; F32.9 Major depressive disorder, single episode, unspecified; J44.9 Chronic obstructive pulmonary disease, unspecified; F17.200 Nicotine dependence, unspecified, uncomplicated; M19.90 Unspecified osteoarthritis, unspecified site; Z88.5 Allergy status to narcotic agent; Z88.0 Allergy status to penicillin; Z88.2 Allergy status to sulfonamides; Z88.6 Allergy status to analgesic agent; Z88.3 Allergy status to other anti-infective agents; Z91.018 Allergy to other foods; Z79.899 Other long term (current) drug therapy
CPT/HCPCS: 49083; P9047

== ENCOUNTER 2019-03-31 13:18 | Outpatient (CLI) | payer OTHER | END 2019-03-31 13:19 | disposition home or self-care (01) | LOC: WCC 13:18 | PROVIDERS: ATTEND Family Medicine | DX: Z51.89 Encounter for other specified aftercare (principal) | CPT/HCPCS: 99211; G0463 ==

== ENCOUNTER 2019-04-04 08:26 | Day surgery (SDC) | payer OTHER ==
[2019-04-03 15:26] VITALS: BMI 27.3
[2019-04-04] MEDS ORDERED: Sodium Bicarbonate 2.5 MEQ/5 ML VIAL ONE (10:18)
[2019-04-04] MEDS ORDERED: Sodium Chloride 0.9% 20 ML ONE (10:22)
--- NOTE | 2019-04-04 12:11 | ULT ---
PREPROCEDURE DIAGNOSIS: Ascites POST PROCEDURE DIAGNOSIS: Same PROCEDURE: Ultrasound-guided paracentesis CLERK MANAGER: Mario ANESTHESIA: 6 mL of buffered 1% lidocaine. SPECIMEN: 5.1 L of straw-colored fluid TECHNIQUE: Prior to the procedure, the risks and benefits of an ultrasound guided paracentesis were explained to the patient which consented fully to the procedure. The area of the largest fluid collection was seen in the right lower quadrant of the abdomen. This a sylvie was prepped and draped in the usual sterile fashion. Lidocaine was used to anesthetize the skin and soft tissues down towards the peritoneal cavity. The p eritoneum was anesthetized. A small skin incision was made for passage of the Enciteeh needle and catheter. This device was then placed using ultrasound guidance into the peritoneal cavity. The needle was removed after return of fluid. The catheter was then connected to multiple Vacutainer bottles. A total of 5.1 L was removed. A small amount of residual fluid is seen in this region of the peritone al cavity. IMPRESSION: Status post successful ultrasound-guided paracentesis
[2019-04-04 13:02] VITALS: BP 94/58; TEMP 98.3
== END 2019-04-04 12:15 | disposition home or self-care (01) ==
LOC: ULT 08:26
PROVIDERS: ATTEND Internal Medicine Gastroenterology
PROC: 0W9G3ZZ Drainage of Peritoneal Cavity, Percutaneous Approach (ICD-10-PCS; principal; 2019-04-04)
PROC: BW40ZZZ Ultrasonography of Abdomen (ICD-10-PCS; principal; 2019-04-04)
DX: K74.60 Unspecified cirrhosis of liver (principal); R18.8 Other ascites; I12.9 Hypertensive chronic kidney disease with stage 1 through stage 4 chronic kidney disease, or unspecified chronic kidney disease; E11.22 Type 2 diabetes mellitus with diabetic chronic kidney disease; N18.9 Chronic kidney disease, unspecified; J44.9 Chronic obstructive pulmonary disease, unspecified; J45.909 Unspecified asthma, uncomplicated; D64.9 Anemia, unspecified; F41.9 Anxiety disorder, unspecified; F32.9 Major depressive disorder, single episode, unspecified; M19.90 Unspecified osteoarthritis, unspecified site; Z88.0 Allergy status to penicillin; Z88.2 Allergy status to sulfonamides; Z88.5 Allergy status to narcotic agent; Z79.899 Other long term (current) drug therapy; Z87.891 Personal history of nicotine dependence
CPT/HCPCS: 49083; J1642

== ENCOUNTER 2019-04-11 08:40 | Day surgery (SDC) | payer OTHER ==
[2019-04-11] MEDS ORDERED: Albumin 25% 200 ML ONE (10:09)
[2019-04-11] MEDS ORDERED: Sodium Bicarbonate 2.5 MEQ/5 ML VIAL ONE (10:09)
[2019-04-11] MEDS ORDERED: Sodium Chloride 0.9% 10 ML ONE ×2 (10:10→11:20)
--- NOTE | 2019-04-11 11:35 | ULT ---
PREPROCEDURE DIAGNOSIS: Ascites POST PROCEDURE DIAGNOSIS: Same PROCEDURE: Ultrasound-guided paracentesis RESIDENTIAL CONCIERGE: Mario ANESTHESIA: 6 mL of buffered 1% lidocaine. SPECIMEN: 4 L of straw-colored fluid TECHNIQUE: Prior to the procedure, the risks and benefits of an ultrasound guided paracentesis were explained to the patient which consented fully to the procedure. The area of the largest fluid collection was seen in the left lower quadrant of the abdomen. This are a was prepped and draped in the usual sterile fashion. Lidocaine was used to anesthetize the skin and soft tissues down towards the peritoneal cavity. The p eritoneum was anesthetized. A small skin incision was made for passage of the ADAPTIXeh needle and catheter. This device was then placed using ultrasound guidance into the peritoneal cavity. The needle was removed after return of fluid. The catheter was then connected to multiple Vacutainer bottles. A total of 4 L was removed. No residual fluid is seen in this region of the peritoneal cavity. IMPRESSION: Status post successful ultrasound-guided paracentesis
[2019-04-11 14:34] VITALS: BP 102/55; TEMP 98.2
== END 2019-04-11 11:50 | disposition home or self-care (01) ==
LOC: ULT 08:40
PROVIDERS: ATTEND Internal Medicine Gastroenterology
PROC: 0W9G3ZZ Drainage of Peritoneal Cavity, Percutaneous Approach (ICD-10-PCS; principal; 2019-04-11)
DX: K74.60 Unspecified cirrhosis of liver (principal); R18.8 Other ascites; I12.9 Hypertensive chronic kidney disease with stage 1 through stage 4 chronic kidney disease, or unspecified chronic kidney disease; E11.9 Type 2 diabetes mellitus without complications; N18.9 Chronic kidney disease, unspecified; D63.1 Anemia in chronic kidney disease; F17.200 Nicotine dependence, unspecified, uncomplicated; J44.9 Chronic obstructive pulmonary disease, unspecified; F41.9 Anxiety disorder, unspecified; F32.9 Major depressive disorder, single episode, unspecified; K44.9 Diaphragmatic hernia without obstruction or gangrene; K52.9 Noninfective gastroenteritis and colitis, unspecified; G89.29 Other chronic pain; M54.9 Dorsalgia, unspecified; Z88.0 Allergy status to penicillin; Z88.2 Allergy status to sulfonamides; Z88.5 Allergy status to narcotic agent; Z91.018 Allergy to other foods
CPT/HCPCS: 49083; 99211; G0463; J1642; P9047

== ENCOUNTER 2019-04-18 09:09 | Inpatient (IN) | payer OTHER ==
[2019-04-18 09:51] LABS: #Eosinphils 0.2 thou/uL (0.0-0.7); #Lymphocytes 0.6 thou/uL (1.20-3.40); #Monocytes 0.6 thou/uL (0.11-0.59); #Neutrophils 3.2 thou/uL (1.40-6.50); %Eosinophils 4.3 % (0.0-10.0); %Lymphocytes 12.2 % (21.0-51.0); %Monocytes 13.7 % (0.0-10.0); %Neutrophils 68.8 % (42.0-75.0); Hemoglobin 7.3 g/dL (12.0-16.0); Mean Corpuscular Hemoglobin 31.8 pg (27.0-31.0); Mean Corpuscular Volume 96.5 fL (78.0-98.0); Mean Platelet Volume 7.3 fL (7.4-10.4); Platelet Count 114 thou/uL (130-400); RBC Distribution Width 14.9 % (11.5-14.5); Red Blood Cell (RBC) Count 2.29 mill/uL (4.20-5.40); White Blood Cell (WBC) Count 4.6 thou/uL (4.8-10.8)
[2019-04-18 10:05] LABS: Acetaminophen Less than 6.0 mcg/mL (10.0-30.0); Alcohol Less than 10 mg/dL (Less than 10); Salicylate Less than 8.0 mg/dL (15.0-30.0)
[2019-04-18 10:06] LABS: ALT (SGPT) 18 U/L (8-55); AST (SGOT) 36 U/L (5-34); Alkaline Phosphatase 104 U/L (40-150); Anion Gap 13 mmol/L (10-20); BUN (Urea Nitrogen) 24 mg/dL (9.8-20.1); Bilirubin, Total 1.8 mg/dL (0.2-1.2); Calc. Creatinine Clearance 0 mL/min (70-130); Calcium 8.6 mg/dL (7.8-10.44); Carbon Dioxide 20 mmol/L (22-29); Chloride 109 mmol/L (98-107); Estimated GFR-MDRD 43; Globulin 2.4 g/dL (2.4-3.5); Glucose 237 mg/dL (70-105); Lipase 38 U/L (8-78); Potassium 3.9 mmol/L (3.5-5.1); Protein, Total 5.4 g/dL (6.0-8.3); Sodium 138 mmol/L (136-145)
[2019-04-18 11:22] LABS: Bilirubin Negative (Negative); Blood, Urine Negative (Negative); Clarity Turbid (Clear); Glucose, Urine (Dipstick) Normal (Negative); Leukocyte 250 Leu/uL (Negative); Nitrite Negative (Negative); Protein, Urine (Dipstick) Negative (Neg-Trace); RBC/HPF 0-3 HPF (0-3); Squamous Epithelial 0-3 HPF (0-3); Urobilinogen Normal mg/dL (Less than 2); WBC/HPF 21-50 HPF (0-3)
[2019-04-18 11:23] LABS: Amphetamine Not Detected (NotDetected); Barbiturates Screen Not Detected (NotDetected); Benzodiazepine Screen Not Detected (NotDetected); Cocaine Metabolite Screen Not Detected (NotDetected); Medtox Control Line Valid? VALID (VALID); Medtox Reader # READER 4; Methadone Not Detected (NotDetected); Methamphetamine Not Detected (NotDetected); Opiate Screen Not Detected (NotDetected); Oxycodone Screen Not Detected (NotDetected); Phencyclidine (PCP) Not Detected (NotDetected); THC/Cannabinoid Screen Not Detected (NotDetected); Tricyclic Screen Not Detected (NotDetected)
[2019-04-18 11:28] LABS: Bacteria/HPF 1+ HPF (None Seen)
--- NOTE | 2019-04-18 11:38 | PDOC.FPRHP ---
- History of Present Illness Chief Complaint: AMS History of Present Illness: Unable to obtain history from patient due to altered mental state. Patient in room with no family members present. Per EMS report patient stopped taking her medication yesterday and family members noted this morning that she was very confused. When asked questions in the room that patient just repeats her name. From [facility] chart review, patient was recently admitted to [facility] in [place] from 03/22/19 to 03/28/19 for Upper GI Bleed. During that hospitalization she has a partial revision of her TIPS procedure, where the TIPS was opened up some. She also had a Monique catheter placed at that time. She was also treated for Spontaneous Bacterial Peritonitis in January 2019. Patient is currently on the liver transplant list in [place], per Dr. Schmid and is awaiting a compatible liver at this time. She has frequent paracentesis performed by Dr. Schmid. ED Course: Was given 1 g Rocephin, 20g Lactulose, 1L Bolus of NS. CT head w/o contrast performed showed no acute pathology. UA was positive for 250 LE, 21-50 WBCs. UDS neg. Patient type & screened, started on 1 unit pRBCs. - Allergies/Adverse Reactions Allergies Allergy/AdvReac Type Severity Reaction Status Date / Time acetaminophen [From Tylenol] Allergy Verified 04/18/19 14:57 aspirin Allergy Verified 04/18/19 14:57 butorphanol [From Stadol] Allergy Verified 04/18/19 14:57 codeine Allergy Verified 04/18/19 14:57 morphine Allergy Verified 04/18/19 14:57 Penicillins Allergy vomiting Verified 04/18/19 14:57 silver Allergy Verified 04/18/19 14:57 [From Tegaderm AG Mesh] Sulfa (Sulfonamide Allergy Verified 04/18/19 14:57 Antibiotics) persimmon Allergy Uncoded 04/18/19 14:57 - Home Medications Medication Instructions Recorded Confirmed Type busPIRone HCl [Buspar] 10 mg PO BID 06/08/15 04/17/19 History Albuterol Sulfate [Proair HFA] 2 puff INH Q4HR PRN 10/20/17 04/17/19 History Iron,Carbonyl [Perfect Iron] 65 mg PO TID 12/15/17 04/17/19 History Mometasone Furoate [Nasonex] 2 spray EA NARE DAILY 04/20/18 04/17/19 History Lactulose [Kristalose] 2 pack PO BID 11/09/18 04/17/19 History traMADol HCl [Tramadol HCl] 50 mg PO TID PRN 11/17/18 04/17/19 History Rifaximin [Xifaxan] 550 mg PO BID 12/25/18 04/17/19 History Spironolactone [Aldactone] 100 mg PO BID 01/10/19 04/17/19 History Cyanocobalamin (Vitamin B-12) 2,000 mcg PO DAILY 01/25/19 04/17/19 History [Vitamin B12] Magnesium Amino Acid Chelate 100 mg PO DAILY 01/25/19 04/17/19 History [Magnesium] clonazePAM [Klonopin] 1 mg PO Q24HR PRN tab 01/26/19 04/17/19 Rx Furosemide [Lasix] 40 mg PO BID 02/07/19 04/17/19 History Folic Acid [Folvite] 1 mg PO DAILY #30 tab 02/15/19 04/17/19 Rx Midodrine HCl [ProAmatine] 5 mg PO TID-WM #42 tab 02/16/19 04/17/19 Rx Esomeprazole Magnesium [NexIUM] 40 mg PO DAILY 02/24/19 04/17/19 History Cetirizine HCl [Zyrtec] 10 mg PO HS 03/06/19 04/17/19 History Cyclobenzaprine [Flexeril] 10 mg PO Q8HR PRN 03/06/19 04/17/19 History - History PMHx: Anxiety, DM, GERD, Cirrhosis, Ascites, HTN PSHx: TIPS 06/09/2018 with revisions in December 2018 & February 2019; Esophageal varices repairs unknown dates FHx: Unable to obtain 2/2 AMS Social: Former smoker, Unable to obtain 2/2 AMS - Review of Systems ROS unobtainable: due to mental status - Vital signs BP: 113/78 HR: 108 RR: 16 Tmax: 98.3F Pox: 100% on RA Wt: 76.3 kg - Physical Exam Constitutional: NAD, other (Exam limited due to patient mental status & cooperation.) -Constitutional: appears chronically ill. Awake, somewhat alert and oriented to person only. HEENT: normocephalic and atraumatic, EOMI -HEENT: Scleral icterus present bilaterally. Neck: supple, no JVD Heart: RRR, normal S1/S2, pulses present Lungs: CTAB, no respiratory distress, no wheezing Abdomen: soft, bowel sounds present -Abdomen: tender to palpation over RUQ and epigastric areas. Mild fluid wave present. Neurological: no focal deficit -Neurological: No asterixis apparent. Skin: no rash/lesions -Skin: Appears jaundiced. Heme/Lymphatic: no unusual bruising or bleeding, no purpura, no petechia FMR H&P: Results - Labs Result Diagrams: 04/18/19 09:40 04/18/19 09:40 Lab results: WBC 4.6 thou/uL (4.8-10.8) L 04/18/19 09:40 Hgb 7.3 g/dL (12.0-16.0) L 04/18/19 09:40 Hct 22.1 % (36.0-47.0) L 04/18/19 09:40 MCV 96.5 fL (78.0-98.0) 04/18/19 09:40 Plt Count 114 thou/uL (130-400) L 04/18/19 09:40 Neutrophils % 68.8 % (42.0-75.0) 04/18/19 09:40 Sodium 138 mmol/L (136-145) 04/18/19 09:40 Potassium 3.9 mmol/L (3.5-5.1) 04/18/19 09:40 Chloride 109 mmol/L (98-107) H 04/18/19 09:40 Carbon Dioxide 20 mmol/L (22-29) L 04/18/19 09:40 BUN 24 mg/dL (9.8-20.1) H 04/18/19 09:40 Creatinine 1.30 mg/dL (0.6-1.1) H 04/18/19 09:40 Glucose 237 mg/dL (70-105) H 04/18/19 09:40 Calcium 8.6 mg/dL (7.8-10.44) 04/18/19 09:40 Total Bilirubin 1.8 mg/dL (0.2-1.2) H 04/18/19 09:40 AST 36 U/L (5-34) H 04/18/19 09:40 ALT 18 U/L (8-55) 04/18/19 09:40 Alkaline Phosphatase 104 U/L (40-150) 04/18/19 09:40 Ammonia 61 umol/L (18-72) 04/18/19 09:40 Serum Total Protein 5.4 g/dL (6.0-8.3) L 04/18/19 09:40 Albumin 3.0 g/dL (3.5-5.0) L 04/18/19 09:40 Lipase 38 U/L (8-78) 04/18/19 09:40 Urine Ketones Negative mg/dL (Negative) 04/18/19 10:55 Urine Blood Negative (Negative) 04/18/19 10:55 Urine Nitrite Negative (Negative) 04/18/19 10:55 Ur Leukocyte Esterase 250 Salbador/uL (Negative) A 04/18/19 10:55 Urine RBC 0-3 HPF (0-3) 04/18/19 10:55 Urine WBC 21-50 HPF (0-3) A 04/18/19 10:55 Ur Squamous Epith Cells 0-3 HPF (0-3) 04/18/19 10:55 Urine Bacteria 1+ HPF (None Seen) 04/18/19 10:55 - EKG Interpretation EKG: sinus tachycardia - Radiology Interpretation CT scan - head Status: report reviewed by me (no acute pathology) US - abdomen Status: image reviewed by me (POC U/S performed by Dr. Randhawa & Dr. Jenkins in ED. Appears to have moderate fluid pocket in left upper abdomen that could be amenable to paracentesis if needed.) FMR H&P: A/P - Problem List (1) Hepatic encephalopathy Current Visit: Yes Status: Acute Priority: High Code(s): K72.90 - HEPATIC FAILURE, UNSPECIFIED WITHOUT COMA (2) UTI (urinary tract infection) Current Visit: Yes Status: Acute Priority: High Qualifiers: Urinary tract infection type: acute cystitis Hematuria presence: without hematuria Qualified Code(s): N30.00 - Acute cystitis without hematuria (3) Anemia Current Visit: No Status: Acute Code(s): D64.9 - ANEMIA, UNSPECIFIED Qualifiers: Anemia type: unspecified type Qualified Code(s): D64.9 - Anemia, unspecified (4) Anxiety Current Visit: No Status: Acute Priority: Medium Code(s): F41.9 - ANXIETY DISORDER, UNSPECIFIED (5) CKD (chronic kidney disease) stage 3, GFR 30-59 ml/min Current Visit: No Status: Chronic Priority: Medium Code(s): N18.3 - CHRONIC KIDNEY DISEASE, STAGE 3 (MODERATE) (6) Cirrhosis of liver with ascites Current Visit: No Status: Chronic Priority: High Code(s): K74.60 - UNSPECIFIED CIRRHOSIS OF LIVER Qualifiers: Hepatic cirrhosis type: unspecified hepatic cirrhosis Qualified Code(s): K74.60 - Unspecified cirrhosis of liver; R18.8 - Other ascites Comment: SPENCER with recurrent ascites, plan for US guided paracentesis in am, GI consult pending. (7) DM type 2 (diabetes mellitus, type 2) Current Visit: No Status: Chronic Qualifiers: Diabetes mellitus rodent exterminator insulin use: without group home use Diabetes mellitus complication status: with kidney complications Diabetes mellitus complication detail: with chronic kidney disease Chronic kidney disease stage : stage 3 (moderate) Qualified Code(s): E11.22 - Type 2 diabetes mellitus with diabetic chronic kidney disease; N18.3 - Chronic kidney disease, stage 3 ( moderate) (8) GERD (gastroesophageal reflux disease) Current Visit: No Status: Chronic Code(s): K21.9 - GASTRO-ESOPHAGEAL REFLUX DISEASE WITHOUT ESOPHAGITIS Qualifiers: Esophagitis presence: without esophagitis Qualified Code(s): K21.9 - Gastro -esophageal reflux disease without esophagitis (9) HTN (hypertension) Current Visit: No Status: Chronic Code(s): I10 - ESSENTIAL (PRIMARY) HYPERTENSION Qualifiers: Hypertension type: unspecified Qualified Code(s): I10 - Essential (primary ) hypertension - Plan Patient is a 53 yo female with PMHx of Liver cirrhosis with ascites awaiting transplant who is admitted for Hepatic Encephalopathy and UTI: #Hepatic Encephalopathy -likely 2/2 UTI vs SBP -Blood cultures, Urine cultures pending -Consider paracentesis if clinical condition worsens, patient recently treated for SBP in January 2019, abdominal POC U/S shows moderate fluid pocket in left upper abdomen that could be tapped if needed -Lactulose 20gm BID -Consult GI--shahbaz Schmid. recs -PT, PTT, INR pending, will trend with AM labs -daily CBC & CMP -NS @ 100, can d/c once resume PO intake -Tramadol 50 mg home med given e2oo--ipoech be give more frequently due to liver complications #UTI -continue Rocephin 1g daily (04/18) #Anemia, Pancytopenia -admission Hgb 7/3 (04/18), given 1 unit pRBCs in ER -recheck H/H at 1800 today #Chronic Kidney Disease, stage 3 -at baseline, Cr 1.3 #Cirrhosis with ascites -periodic paracentesis with Dr. Schmid as outpatient -TIPS procedure 06/09/2018, revision December 2018, revision February 2019 -recent SBP treated in January 2019 -awaiting liver transplant -Monique catheter in place, placed in February 2019 for weekly albumin -continue home meds: Lactulose 20 mg BID, Rifaximin 550 mg BID #Hypertension -BP stable since admission -continue home meds #Anxiety -continue home meds--Buspirone 10 mg BID #Diabetes mellitus -monitor AM labs #GERD -continue home med-Esomeprazole 40 mg BID Code: FULL, reassess when mental status improved VTE: SCDs Diet: NPO until see GI, if cleared for PO intake start on low Na with 1500 mL fluid restriction Dispo: Admitted to inpatient medical floor with anticipated LOS >48 hrs. Await further recs from Dr. Schmid, GI. FMR H&P: Upper Level - Pertinent history 53 yo F with hx of etoh related cirrhosis here with complaint of AMS at home. At the time of H&P there is no family available for questions and patient will only respond "Jesse Gonzalez" to all questions. Per ERMD symptoms onset this morning and pt stopped taking meds yesterday. Patient is known to be on a transplant list in [place] and is locally managed by Dr Schmid. She was recently admitted for an UGI bleed and has also had her TIPS opened. Labs in ED are largely baseline. Pulse is tachy, otherwise normal vitals. UA shows pos LE and 21-50 WBC. - Pertinent findings See analysis intern note for full ROS, PE, Vitals, and labs ROS, cannot obtain to to mental status PE General no acute distress, A&O x1 HEENT NCAT, mild scleral icterus CV RRR, no murmurs Resp CTA Abd non tender, no distension, no fluid wave Neuro patient would only minimally follow commands poor ability to evaluate. CN appear to be intact. No asterixis - Plan Date/Time: 04/18/19 1137 I, Reggie Lambert DO, have evaluated this patient and agree with findings/plan as outlined by analysis intern resident. Pertinent changes/additions are listed here. Acute encephalopathy - Hepatic encephalopathy vs UTI related vs SBP - admit to medicine - blood and urine cultures pending. Will evaluate for abdominal fluid pocket large enough to sample - start rocephin - start home lactulose - trend CMP and INR for MELD score, current INR pending UTI - as above Cirrhosis - possible acute decompensation related to medicine non compliance. - Will consult Dr Schmid, otherwise manage as above Pancytopenia - chronic and at baseline, likely related to cirrhosis. Hemodynamically stable CKD3 - at baseline
--- NOTE | 2019-04-18 11:40 | CT ---
CT OF HEAD NONCONTRAST: INDICATION: Emergency exam performed for new-onset altered mental status. FINDINGS: There is no ventriculomegaly, mass effect, midline shift, or acute intracranial hemorrhage. Dural-ba sed calcification overlying the right convexity and the anterior, lateral right temporal convexity pr esent which may relate to areas of dystrophic calcification, or densely calcified small meningiomas. There is mild white matter hypoattenuation indicating microvascular ischemic disease. IMPRESSION: No acute intracranial hemorrhage or mass effect. POS: C
[2019-04-18] MEDS ORDERED: cefTRIAXone\\ROCEPHIN 1 GM VIAL ONE (12:15)
[2019-04-18 12:33] LABS: INR-International Normal Ratio 1.3; Prothrombin Time 16.5 SEC (12.0-14.7)
[2019-04-18 12:34] LABS: PTT 36.8 SEC (22.9-36.1)
[2019-04-18] MEDS ORDERED: Ondansetron PF 4 MG/2 ML Vial IVP PRN (16:00)
[2019-04-18] MEDS ORDERED: Ondansetron ODT 8 MG TAB SL PRN (16:00)
[2019-04-18] MEDS: Sodium Chloride 0.9% 1,000 ML IV SCH (17:30)
[2019-04-18 18:28] LABS: Hemoglobin 7.1 g/dL (12.0-16.0)
[2019-04-18] MEDS ORDERED: PROVENTIL INHALER 6.7 G (200 INHALATIONS) INH PRN (20:35)
[2019-04-18] MEDS ORDERED: Cyclobenzaprine 10 MG TAB PO PRN (20:35)
[2019-04-18] MEDS: busPIRone HCl 10 MG TAB PO SCH (22:01)
[2019-04-18] MEDS: Rifaximin 550 MG TAB PO SCH (22:01)
[2019-04-18] MEDS: Furosemide 40 MG TAB PO SCH (22:01)
[2019-04-18] MEDS ORDERED: Spironolactone 100 MG TAB PO SCH (22:15)
[2019-04-19] MEDS ORDERED: diphenhydrAMINE 25 MG CAP PO SCH (02:45)
[2019-04-19] MEDS: Sodium Chloride 0.9% 1,000 ML IV SCH ×3 (02:52→20:50)
[2019-04-19 05:57] LABS: ALT (SGPT) 15 U/L (8-55); AST (SGOT) 29 U/L (5-34); Albumin 2.5 g/dL (3.5-5.0); Alkaline Phosphatase 83 U/L (40-150); Anion Gap 11 mmol/L (10-20); BUN (Urea Nitrogen) 23 mg/dL (9.8-20.1); Bilirubin, Total 2.3 mg/dL (0.2-1.2); Calc. Creatinine Clearance 64 mL/min (70-130); Calcium 7.9 mg/dL (7.8-10.44); Carbon Dioxide 18 mmol/L (22-29); Chloride 111 mmol/L (98-107); Estimated GFR-MDRD 45; Globulin 1.9 g/dL (2.4-3.5); Glucose 150 mg/dL (70-105); Potassium 3.4 mmol/L (3.5-5.1); Protein, Total 4.4 g/dL (6.0-8.3); Sodium 137 mmol/L (136-145)
[2019-04-19 06:02] LABS: Band 7 % (5-11); Eosinophils 11 % (0-10); Hemoglobin 6.4 g/dL (12.0-16.0); Lymphocytes 17 % (21-51); MDiff Complete? YES; Mean Corpuscular HGB CONC 34.6 g/dL (32.0-36.0); Mean Corpuscular Hemoglobin 32.9 pg (27.0-31.0); Mean Platelet Volume 7.3 fL (7.4-10.4); Monocytes 5 % (0-10); Neutrophil 57 % (42-75); Platelet Count 74 thou/uL (130-400); Platelet Morphology Comment Appears Decreased; RBC Distribution Width 14.1 % (11.5-14.5); Red Blood Cell (RBC) Count 1.94 mill/uL (4.20-5.40); White Blood Cell (WBC) Count 3.3 thou/uL (4.8-10.8)
--- NOTE | 2019-04-19 06:06 | PDOC.FM ---
- Subjective Subjective: Patient laying in bed, much more alert & oriented this morning. States she does not remember anything that happened yesterday after she left her home via EMS. Patient gives further history that she started to have dysuria, frequency, suprapubic pressure on Wednesday, started to become occasionally confused on Wednesday that continued to progress and worsen. On Wednesday she stopped her "krystallose" (Lactulose) because she thought it was causing her to go to bathroom more frequently. Patient thought she had a UTI and typically uses a home remedy of hot lemon water and raw chicken liver to treat these. She was scheduled for a paracentesis on Wednesday and when family members came to get her to take to appointment they noted she was very confused and called EMS. Patient was treated for SBP in January 2019 for 5 days, then she left the hospital AMA because she stated she had to take care of her mother. Patient treated for Upper GI Bleed in late February 2019, and in November 2018. Patient has stated that she has had more frequent BMs in past few days. Describes stool as dark in color. - Objective Vital Signs & Weight: Vital Signs (12 hours) Temp Pulse Resp BP Pulse Ox 04/19/19 03:57 98.6 F 107 H 22 H 98/63 97 04/19/19 00:00 98.9 F 89 18 113/72 98 04/18/19 20:00 99 04/18/19 19:23 99.0 F 104 H 21 H 112/71 99 Weight Weight 76.294 kg I&O: 04/17/19 04/18/19 04/19/19 06:59 06:59 06:59 Intake Total 320 Balance 320 Result Diagrams: 04/19/19 05:18 04/19/19 05:18 Phys Exam - Physical Examination Constitutional: NAD A&O x 3 HEENT: moist MMs, sclera anicteric Neck: no JVD, supple IV line placed on left side of neck Respiratory: no wheezing, no rhonchi, clear to auscultation bilateral Cardiovascular: RRR, no significant murmur Gastrointestinal: soft, non-tender, positive bowel sounds mild fluid wave present Musculoskeletal: pulses present 1+ nonpitting edema in extremeties Neurological: normal sensation, moves all 4 limbs Psychiatric: normal affect, A&O x 3 Skin: no rash, normal turgor Dx/Plan (1) Hepatic encephalopathy Code(s): K72.90 - HEPATIC FAILURE, UNSPECIFIED WITHOUT COMA Status: Acute (2) UTI (urinary tract infection) Status: Acute Qualifiers: Urinary tract infection type: acute cystitis Hematuria presence: without hematuria Qualified Code(s): N30.00 - Acute cystitis without hematuria (3) Anemia Code(s): D64.9 - ANEMIA, UNSPECIFIED Status: Acute Qualifiers: Anemia type: unspecified type Qualified Code(s): D64.9 - Anemia, unspecified (4) Anxiety Code(s): F41.9 - ANXIETY DISORDER, UNSPECIFIED Status: Acute (5) CKD (chronic kidney disease) stage 3, GFR 30-59 ml/min Code(s): N18.3 - CHRONIC KIDNEY DISEASE, STAGE 3 (MODERATE) Status: Chronic (6) Cirrhosis of liver with ascites Code(s): K74.60 - UNSPECIFIED CIRRHOSIS OF LIVER Status: Chronic Qualifiers: Hepatic cirrhosis type: unspecified hepatic cirrhosis Qualified Code(s): K74.60 - Unspecified cirrhosis of liver; R18.8 - Other ascites (7) DM type 2 (diabetes mellitus, type 2) Status: Chronic Qualifiers: Diabetes mellitus skilled nursing insulin use: without buttermaker helper use Diabetes mellitus complication status: with kidney complications Diabetes mellitus complication detail: with chronic kidney disease Chronic kidney disease stage : stage 3 (moderate) Qualified Code(s): E11.22 - Type 2 diabetes mellitus with diabetic chronic kidney disease; N18.3 - Chronic kidney disease, stage 3 ( moderate) (8) GERD (gastroesophageal reflux disease) Code(s): K21.9 - GASTRO-ESOPHAGEAL REFLUX DISEASE WITHOUT ESOPHAGITIS Status: Chronic Qualifiers: Esophagitis presence: without esophagitis Qualified Code(s): K21.9 - Gastro -esophageal reflux disease without esophagitis (9) HTN (hypertension) Code(s): I10 - ESSENTIAL (PRIMARY) HYPERTENSION Status: Chronic Qualifiers: Hypertension type: unspecified Qualified Code(s): I10 - Essential (primary ) hypertension - Plan Plan: Patient is a 53 yo female with PMHx of Liver cirrhosis with ascites awaiting transplant who is admitted for Hepatic Encephalopathy and UTI: #Hepatic Encephalopathy -likely 2/2 UTI vs SBP -Blood cultures, Urine cultures pending -Consider paracentesis if clinical condition worsens, patient recently treated for SBP in January 2019, abdominal POC U/S shows moderate fluid pocket in left upper abdomen that could be tapped if needed -Lactulose 20gm BID -Consult GI--Cipriano, instructed us to order 2 units prbcs and start Octreotide, apprec. further recs -PT, PTT, INR pending, will trend with AM labs -daily CBC & CMP -NS @ 100, can d/c once resume PO intake -Tramadol 50 mg home med given [id number] be give more frequently due to liver complications #UTI -continue Rocephin 1g daily (04/18) #Anemia, Pancytopenia -admission Hgb 7/3 (04/18), given 1 unit pRBCs in ER -recheck H/H at 1800 showed Hgb 7.1; 04/19 AM Hgb 6.4 -concern for recurrent Upper GI Bleed, will order additional 2 unit prbc to be given and will await Dr. oCta recs for potential scope later today #Chronic Kidney Disease, stage 3 -at baseline, Cr 1.3 ->1.26 #Cirrhosis with ascites -periodic paracentesis with Dr. Schmid as outpatient -TIPS procedure 06/09/2018, revision December 2018, revision February 2019 -recent SBP treated in January 2019 -awaiting liver transplant -Monique catheter in place, placed in February 2019 for weekly albumin -continue home meds: Lactulose 20 mg BID, Rifaximin 550 mg BID #Hypertension -BP stable since admission -continue home meds #Anxiety -continue home meds--Buspirone 10 mg BID #Diabetes mellitus -monitor AM labs #GERD -continue home med-Esomeprazole 40 mg BID #Likely Upper GI Bleed -Hgb drop from 7.3 -> 6.4 this morning -already transfused 1 unit prbc in ER yesterday, will receive additional 2 unit prbc this morning -Start Octreotide--100 mcg bolus, followed by 50 mcg/hr drip -possible scope this PM Code: FULL, reassess when mental status improved VTE: SCDs Diet: NPO until see GI, if cleared for PO intake start on low Na with 1500 mL fluid restriction Dispo: Admitted to inpatient medical floor with anticipated LOS >48 hrs. Await further recs from Dr. Cota, GI. Addendum - Attending - Attending Attestation Date/Time: 04/19/19 1048 I personally evaluated the patient and discussed the management with Dr. Randhawa. I agree with the History, Examination, Assessment and Plan documented above with any addition or exceptions noted below. mentally Jesse is back to baseline this morning. AO x3. However there is evedence of GI bleed. Working with controlled area checker GI for care.
[2019-04-19 06:16] LABS: INR-International Normal Ratio 1.5; PTT 38.8 SEC (22.9-36.1); Prothrombin Time 18.2 SEC (12.0-14.7)
[2019-04-19] MEDS ORDERED: MOMETASONE FUROATE EA NARE PRN (08:50)
[2019-04-19] MEDS ORDERED: Folic Acid 1 MG TAB PO SCH (09:00)
[2019-04-19] MEDS ORDERED: MAGNESIUM PO SCH (09:00)
[2019-04-19] MEDS ORDERED: Midodrine HCl 5 MG TAB PO SCH (09:00)
[2019-04-19] MEDS ORDERED: Magnesium Oxide 250 MG TAB PO SCH (09:00)
[2019-04-19] MEDS ORDERED: Non-Formulary Item 1 EACH (Cyanocobalamin (Vitamin B-12) [Vitamin B12] 1,000 MCG) PO SCH (09:00)
[2019-04-19] MEDS ORDERED: LACTULOSE PO SCH (09:00)
[2019-04-19] MEDS: Furosemide 40 MG TAB PO SCH ×2 (09:09→20:48)
[2019-04-19] MEDS: busPIRone HCl 10 MG TAB PO SCH ×2 (09:09→20:49)
[2019-04-19] MEDS: Midodrine HCl 5 MG TAB PO SCH ×3 (09:09→17:15)
[2019-04-19] MEDS: Rifaximin 550 MG TAB PO SCH ×2 (09:10→20:48)
[2019-04-19] MEDS: Spironolactone 100 MG TAB PO SCH ×2 (09:10→17:15)
[2019-04-19] MEDS: Cyanocobalamin (Vitamin B-12) 1,000 MCG TAB PO SCH (09:11)
[2019-04-19] MEDS: Folic Acid 1 MG TAB PO SCH (09:11)
[2019-04-19] MEDS: Fluticasone Propionate Nasal Spray 16 gm Bottle NASAL SCH (09:24)
[2019-04-19] MEDS ORDERED: Octreotide Acetate 1,250 MCG in Sodium Chloride 0.9% 250 ML 250 ML IVPB SCH (10:30)
[2019-04-19] MEDS ORDERED: Octreotide Acetate 1,000 mcg/ml Multi-Dose Vial IV ONE (10:30)
[2019-04-19] MEDS ORDERED: Octreotide Acetate 1,000 mcg/ml Multi-Dose Vial IV SCH ×2 (12:30→15:00)
[2019-04-19] MEDS: traMADol HCl 50 MG TAB PO PRN ×2 (12:51→20:49)
[2019-04-19] MEDS: cefTRIAXone\\ROCEPHIN 1 GM in Sodium Chloride 0.9% 100 ML IVPB SCH (12:52)
[2019-04-19 17:19] LABS: Hemoglobin 8.7 g/dL (12.0-16.0)
[2019-04-19] MEDS ORDERED: Non-Formulary Item 1 EACH (Melatonin [Melatonin] 10 MG) PO SCH (21:00)
[2019-04-19] MEDS ORDERED: Non-Formulary Item 1 EACH (Loratadine [Loratadine] 10 MG) PO SCH (21:00)
[2019-04-19] MEDS ORDERED: Loratadine 10 MG TAB PO SCH (21:00)
[2019-04-19] MEDS ORDERED: Melatonin 3 MG TAB PO SCH (21:00)
--- NOTE | 2019-04-20 05:48 | PDOC.FM ---
- Subjective Subjective: Patient doing much better this morning. Denies any complaints, states that she will not stop her Lactulose again and will continue to take it at home. Dr. Cota saw the patient yesterday and patient states that he didn't recommend any further inpatient intervention. - Objective Vital Signs & Weight: Vital Signs (12 hours) Temp Pulse Resp BP Pulse Ox 04/19/19 20:49 97 04/19/19 19:21 98.4 F 94 18 100/64 97 Weight Weight 76.294 kg I&O: 04/18/19 04/19/19 04/20/19 06:59 06:59 06:59 Intake Total 320 1900 Balance 320 1900 Result Diagrams: 04/20/19 12:23 04/20/19 06:01 Phys Exam - Physical Examination Constitutional: NAD HEENT: moist MMs, sclera anicteric Neck: no JVD, supple, full ROM Respiratory: no wheezing, no rales, no rhonchi, clear to auscultation bilateral Cardiovascular: RRR, no significant murmur Gastrointestinal: soft, non-tender, positive bowel sounds mild fluid wave present Musculoskeletal: no edema, pulses present Neurological: normal sensation, moves all 4 limbs Psychiatric: normal affect, A&O x 3 Skin: no rash, normal turgor Dx/Plan (1) Hepatic encephalopathy Code(s): K72.90 - HEPATIC FAILURE, UNSPECIFIED WITHOUT COMA Status: Acute (2) UTI (urinary tract infection) Status: Acute Qualifiers: Urinary tract infection type: acute cystitis Hematuria presence: without hematuria Qualified Code(s): N30.00 - Acute cystitis without hematuria (3) Anemia Code(s): D64.9 - ANEMIA, UNSPECIFIED Status: Acute Qualifiers: Anemia type: unspecified type Qualified Code(s): D64.9 - Anemia, unspecified (4) Anxiety Code(s): F41.9 - ANXIETY DISORDER, UNSPECIFIED Status: Acute (5) CKD (chronic kidney disease) stage 3, GFR 30-59 ml/min Code(s): N18.3 - CHRONIC KIDNEY DISEASE, STAGE 3 (MODERATE) Status: Chronic (6) Cirrhosis of liver with ascites Code(s): K74.60 - UNSPECIFIED CIRRHOSIS OF LIVER Status: Chronic Qualifiers: Hepatic cirrhosis type: unspecified hepatic cirrhosis Qualified Code(s): K74.60 - Unspecified cirrhosis of liver; R18.8 - Other ascites (7) DM type 2 (diabetes mellitus, type 2) Status: Chronic Qualifiers: 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 mellitus 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 insulin use: without fci use Diabetes mellitus complication status: with kidney complications Diabetes mellitus complication detail: with chronic kidney disease Chronic kidney disease stage : stage 3 (moderate) Qualified Code(s): E11.22 - Type 2 diabetes mellitus with diabetic chronic kidney disease; N18.3 - Chronic kidney disease, stage 3 ( moderate) (8) GERD (gastroesophageal reflux disease) Code(s): K21.9 - GASTRO-ESOPHAGEAL REFLUX DISEASE WITHOUT ESOPHAGITIS Status: Chronic Qualifiers: Esophagitis presence: without esophagitis Qualified Code(s): K21.9 - Gastro -esophageal reflux disease without esophagitis (9) HTN (hypertension) Code(s): I10 - ESSENTIAL (PRIMARY) HYPERTENSION Status: Chronic Qualifiers: Hypertension type: unspecified Qualified Code(s): I10 - Essential (primary ) hypertension - Plan Plan: Patient is a 53 yo female with PMHx of Liver cirrhosis with ascites awaiting transplant who is admitted for Hepatic Encephalopathy and UTI: #Hepatic Encephalopathy -likely 2/2 UTI -Blood cultures negative, Urine cultures positive for alpha hemolyticus strep -Consider paracentesis if clinical condition worsens, patient recently treated for SBP in January 2019, abdominal POC U/S shows moderate fluid pocket in left upper abdomen that could be tapped if needed -Lactulose 20gm BID -Consult GI--Cipriano, instructed us to order 2 units prbcs and start Octreotide (04/19), this morning recommends can discontinue Octreotide and okay to discharge home with close follow up with apprec. further recs -PT, PTT, INR pending, will trend with AM labs -daily CBC & CMP -NS @ 100, can d/c once resume PO intake -Tramadol 50 mg home med given b1jp--czbmgh be give more frequently due to liver complications #UTI -continue Rocephin 1g daily for 3 days #Anemia, Pancytopenia -admission Hgb 7/3 (04/18), given 1 unit pRBCs in ER -recheck H/H at 1800 showed Hgb 7.1; 04/19 AM Hgb 6.4 -concern for recurrent Upper GI Bleed, will order additional 2 unit prbc to be given (04/19) -Dr. Cota recs that bleeding likely due to hemorrhoids #Chronic Kidney Disease, stage 3 -at baseline, Cr 1.3 ->1.26 #Cirrhosis with ascites -periodic paracentesis with Dr. Schmid as outpatient, next scheduled for next Wednesday -TIPS procedure 06/09/2018, revision December 2018, revision February 2019 -recent SBP treated in January 2019 -awaiting liver transplant -Monique catheter in place, placed in February 2019 for weekly albumin -continue home meds: Lactulose 20 mg BID, Rifaximin 550 mg BID #Hypertension -BP stable since admission -continue home meds #Anxiety -continue home meds--Buspirone 10 mg BID #Diabetes mellitus -monitor AM labs #GERD -continue home med-Esomeprazole 40 mg BID #Likely Upper GI Bleed -Hgb drop from 7.3 -> 6.4 (04/19) -> 8.4 (04/20) -already transfused 1 unit prbc in ER yesterday, received additional 2 unit prbc 04/19 -Start Octreotide--100 mcg bolus, followed by 50 mcg/hr drip--discontinue per GI recs on 04/20 -repeat H/H at 1145 today Code: FULL VTE: SCDs Diet: Low sodium Dispo: Admitted to inpatient medical floor with anticipated LOS <48 hrs. Likely discharge later this afternoon. Addendum - Attending - Attending Attestation Date/Time: 04/20/19 [id number] I personally evaluated the patient and discussed the management with Dr. Randhawa. I agree with the History, Examination, Assessment and Plan documented above with any addition or exceptions noted below.
[2019-04-20] MEDS: Sodium Chloride 0.9% 1,000 ML IV SCH (05:58)
[2019-04-20 06:38] LABS: Hemoglobin 8.2 g/dL (12.0-16.0); INR-International Normal Ratio 1.4; Mean Corpuscular HGB CONC 33.8 g/dL (32.0-36.0); Mean Corpuscular Hemoglobin 31.2 pg (27.0-31.0); Mean Corpuscular Volume 92.5 fL (78.0-98.0); Mean Platelet Volume 8.1 fL (7.4-10.4); PTT 38.8 SEC (22.9-36.1); Platelet Count 73 thou/uL (130-400); Prothrombin Time 17.2 SEC (12.0-14.7); RBC Distribution Width 14.4 % (11.5-14.5); Red Blood Cell (RBC) Count 2.63 mill/uL (4.20-5.40); White Blood Cell (WBC) Count 3.5 thou/uL (4.8-10.8)
[2019-04-20 06:58] LABS: ALT (SGPT) 18 U/L (8-55); AST (SGOT) 40 U/L (5-34); Albumin 2.6 g/dL (3.5-5.0); Alkaline Phosphatase 91 U/L (40-150); Anion Gap 10 mmol/L (10-20); BUN (Urea Nitrogen) 20 mg/dL (9.8-20.1); Calc. Creatinine Clearance 56 mL/min (70-130); Calcium 8.1 mg/dL (7.8-10.44); Carbon Dioxide 19 mmol/L (22-29); Chloride 108 mmol/L (98-107); Estimated GFR-MDRD 39; Globulin 2.2 g/dL (2.4-3.5); Glucose 203 mg/dL (70-105); Protein, Total 4.8 g/dL (6.0-8.3); Sodium 133 mmol/L (136-145)
[2019-04-20 07:52] LABS: Band 3 % (5-11); Eosinophils 11 % (0-10); Lymphocytes 14 % (21-51); MDiff Complete? YES; Monocytes 12 % (0-10); Myelocyte 1 % (0-0); Neutrophil 58 % (42-75); Platelet Morphology Comment Appears Decreased; Polychromasia SLIGHT = 2-3 cells (100X) (0-2/hpf); Reactive Lymphocytes 1 % (0-10)
--- NOTE | 2019-04-20 08:18 | CON ---
DATE OF CONSULTATION: 04/19/2019 REASON FOR CONSULTATION: Anemia, positive fecal occult blood. HISTORY OF PRESENT ILLNESS: Ms. Jesse Gonzalez is a very pleasant 53-year-old female, who has history of liver cirrhosis due to alcohol abuse and fatty liver for many years. The patient is seeing Dr. Jessee Schmid since 2011. The patient has had intractable and refractory ascites over the years and had multiple paracentesis. The patient had TIPS placement because of the refractory ascites, however, she currently was found to have large volume of ascites and has had multiple paracentesis. She had a revision of the TIPS last month in [place]. The patient has a large volume paracentesis twice this month. The patient is supposed to be taking lactulose, but she did not take the lactulose for the last couple of days. She became somewhat somnolent and drowsy and was brought here. She is actually brought here because of altered mental status. Since being placed on lactulose, she had her mental status back to baseline. She is awake, alert, and communicating. She is oriented to time and place and person. The patient denies having any black tarry stool. She says she was constipated over the weekend and was straining very hard and she has some fresh blood on Wednesday and Wednesday also. She had no bleeding yesterday and today. Her stools are not really tarry. The patient has had previous GI bleeding and has had multiple endoscopies done. In January of 2019, she was hospitalized because of tarry stool and was scoped by Dr. Kameron Fernandes. As per the operative report, she had no gastric varices . 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 She underwent APC by Dr. Fernandes in January 2019 and she had another procedure in [place] in February of 2019. At the present time, she has no abdominal pain, no nausea or vomiting. She tells me that she has had no bleeding since Wednesday. The blood was actually bright red following episode of constipation and straining at stool. When they called me, I was told that her blood count is dropping down and I felt it could be upper GI bleeding. However, on talking to the patient, it appears the bleeding is actually from the hemorrhoids. She has no tarry stools recently. She is on IV octreotide and n.p.o. I discontinued the n.p.o. and ordered a 4 g sodium diet. She has no relevant history. MEDICAL ILLNESSES: 1. Anxiety. 2. Diabetes. 3. Chronic acid reflux. 4. Ascites. 5. Hypertension. 6. Portal gastropathy. 7. History of gastric antral vascular ectasia, status post APC in the past. PAST SURGICAL HISTORY: 1. TIPS x2, one in 2018 and had revision of the TIPS in February 2019 in [place]. 2. Large volume paracentesis, multiple times. SOCIAL HISTORY: The patient is a former smoker. Does not drink alcohol. MEDICATION LIST: Reviewed. REVIEW OF SYSTEMS: Totally unremarkable except for constipation and straining of stools except for mild hematochezia. Denies abdominal pain, nausea or vomiting. No black tarry stool. PHYSICAL EXAMINATION: GENERAL: She is awake, alert, oriented to time, place, and person. She is in no distress. VITAL SIGNS: She is afebrile. Pulse is 89, blood pressure is 97/52. HEENT: Conjunctivae clear. NECK: Supple. No adenitis or thyromegaly noted. CARDIOVASCULAR SYSTEM: First and second heart sounds heard. LUNGS: Clear to auscultation. ABDOMEN: Abdomen is soft. Abdomen is nondistended. She still has ascites. No organomegaly or masses. EXTREMITIES: No edema. LABORATORY DATA: Today, CBC; WBC 3300, hemoglobin 6.4 dropped from 7.1, hematocrit 18.4, MCV 95, platelet count is 74,000, polymorphs are 57, lymphocytes 17, bands 7%. Today, after transfusion, hemoglobin 8.7, hematocrit 26. Chemistry panel; BUN is 23, creatinine is 1.26, lytes are normal except potassium 3.4. Albumin 2.5. Bilirubin 2.3. AST 29, ALT 15, and alkaline phosphatase 53. IMPRESSION: 1. This is a 53-year-old female with liver disease, liver cirrhosis, ascites, and portal gastropathy. She had an episode of hematochezia over the weekend because of constipation. She denies having black tarry stool. She also tells me she did not take the lactulose for the last couple of days and became drowsy and somnolent. Since being placed on lactulose, she is back to her baseline status. 2. Previous upper gastrointestinal bleeding, status post APC in January of 2019 and February of 2019. Overall impression based on the history, I believe she has no upper GI bleeding at present time. The bleeding seems to be more of a lower GI. She had a colonoscopy 2 years ago as per the patient. RECOMMENDATION: 1. Discontinue n.p.o. 2. Discontinue octreotide. 3. 4 g sodium diet. 4. From a GI standpoint, she can be discharged home. She will follow up with Dr. Jessee Schmid as an outpatient. Job ID: [id number]
[2019-04-20] MEDS: Midodrine HCl 5 MG TAB PO SCH ×2 (08:55→13:41)
[2019-04-20] MEDS: Spironolactone 100 MG TAB PO SCH (08:55)
[2019-04-20] MEDS: Furosemide 40 MG TAB PO SCH (08:56)
[2019-04-20] MEDS: Ferrous Sulfate 325 MG TAB PO SCH ×2 (08:56→13:41)
[2019-04-20] MEDS: busPIRone HCl 10 MG TAB PO SCH (08:56)
[2019-04-20] MEDS: Rifaximin 550 MG TAB PO SCH (08:56)
[2019-04-20] MEDS: Cyanocobalamin (Vitamin B-12) 1,000 MCG TAB PO SCH (08:57)
[2019-04-20] MEDS: Folic Acid 1 MG TAB PO SCH (08:59)
[2019-04-20] MEDS: Fluticasone Propionate Nasal Spray 16 gm Bottle NASAL SCH (09:00)
[2019-04-20 11:39] VITALS: BP 100/61; TEMP 98.4
[2019-04-20 12:59] LABS: Hemoglobin 8.2 g/dL (12.0-16.0)
--- NOTE | 2019-04-20 13:31 | PQF ---
DATE: 04-20-19 ATTN: DR. AMRIT PRICE Please exercise your independent, professional judgment in responding to the clarification form. Clinical indicators are provided on the bottom of this form for your review Please check appropriate box(s) to clarify if the following diagnosis has been ruled in or ruled out: SPONTANEOUS BACTERIAL PERITONITIS [ ] Ruled in diagnosis [ ] Continue to treat [ ] Resolved [ X ] Ruled out diagnosis [ ] Other diagnosis [ ] Unable to determine In addition, please specify: Present on Admission (POA): [ ] Yes [ X ] No [ ] Unable to determine For continuity of documentation, please document condition throughout progress notes and discharge summary. Thank You. CLINICAL INDICATORS - SIGNS / SYMPTOMS / LABS: H&P: SHE WAS TREATED FOR SPONTANEOUS BACTERIAL PERITONITIS IN JANUARY 2019. HEPATIC ENCEPHALOPATHY LIKELY 2/2 UTI VS SBP RISK FACTORS: H&P: HX LIVER CIRRHOSIS WITH ASCITES AWAITING TRANSPLANT WHO IS ADMITTED FOR HEPATIC ENCEPHALOPATHY AND UTI TREATMENTS: H&P: BLOOD CULTURES, URINE CULTURES PENDING, LACTULOSE 20MG BID, GI CONSULT, PT, PTT, INR PENDING, WILL TREND WITH AM LABS (This form is maintained as a part of the permanent medical record) 2014 [employer], [employer]. All Rights Reserved ROS [email or web address] Office: [phone] [facility] HOSPITALRob
[2019-04-20] MEDS: cefTRIAXone\\ROCEPHIN 1 GM in Sodium Chloride 0.9% 100 ML IVPB SCH (13:40)
--- NOTE | 2019-04-21 09:57 | DIS ---
DATE OF ADMISSION: 04/18/2019 DATE OF DISCHARGE: 04/20/2019 RESIDENT: Yamila Randhawa DO ADMITTING ATTENDING: Rustam Milner MD DISCHARGE ATTENDING: Rustam Milner MD CONSULTS: 1. GI, Cipriano. 2. Palliative Care, Benjamin. PROCEDURES: 1. Brain CT on April 18, 2019: No acute intracranial hemorrhage or mass effect. 2. EKG on April 18, 2019: Sinus tachycardia, nonspecific ST abnormality. PRIMARY DIAGNOSES: 1. Hepatic encephalopathy. 2. Urinary tract infection. SECONDARY DIAGNOSES: 1. Anemia, pancytopenia. 2. Chronic kidney disease, stage 3. 3. Cirrhosis with ascites. 4. Hypertension. 5. Anxiety. 6. Diabetes mellitus. 7. Gastroesophageal reflux disease. 8. Possible upper gastrointestinal bleed versus hemorrhoids. DISCHARGE MEDICATIONS: 1. Albuterol sulfate (ProAir HFA) two puffs q.4 hours p.r.n. for wheezing or cough. 2. Buspirone HCl 10 mg p.o. b.i.d. 3. Vitamin B12 of 1000 mcg p.o. daily. 4. Cyclobenzaprine 10 mg p.o. q.8 hours p.r.n. for muscle spasm. 5. Esomeprazole magnesium (Nexium) 40 mg p.o. b.i.d. 6. Folic acid 1 mg p.o. t.i.d. 7. Furosemide 40 mg p.o. b.i.d. 8. Iron, carbonyl, 65 mg p.o. t.i.d., takes two tabs in a.m. and one tab in evening. 9. Lactulose (Kristalose) two packets p.o. b.i.d. 10. Loratadine 10 mg p.o. at bedtime. 11. Magnesium 250 mg tabs two tabs p.o. every seven days. 12. Melatonin 10 mg p.o. at bedtime. 13. Midodrine HCl 5 mg p.o. daily. 14. Mometasone furoate (Nasonex) two sprays each naris daily. 15. Pantoprazole 40 mg p.o. b.i.d. 16. Rifaximin 550 mg p.o. b.i.d. 17. Spironolactone 100 mg p.o. b.i.d. 18. Tramadol 50 mg p.o. t.i.d. DISCONTINUED MEDICATIONS: 1. Rocephin 1 g x1 dose. 2. Zofran 8 mg sublingual b.i.d. p.r.n. for nausea. 3. Zofran 4 mg IVP q.6 hours p.r.n. for nausea. 4. PCV 23 vaccine given during this stay. 5. Octreotide acetate (Sandostatin) 100 mcg IV x3 doses. 6. Octreotide acetate 1250 mcg IVPB. HISTORY OF PRESENT ILLNESS/HOSPITAL COURSE: Ms. Gonzalez is a 53-year-old female, who presented to the [facility] ED due to an altered mental state, which had been noted by family members at home. No history was able to be obtained from the patient due to her altered mental state. There were also no family members present in the ER. Per the EMS report, the patient had stopped taking her medication a day or two prior, and family members noted when they came to her house this morning that she was very confused. When she was asked questions in the exam room, the patient just repeated her name. From TAMP chart review, it was determined that the patient was recently admitted to [facility] in [place] from March 22, 2019 to March 28, 2019, for an upper GI bleed. During that hospitalization, she had a partial revision of her TIPS procedure, where the TIPS was opened up some. She also had a Monique catheter placed at that time. She was also treated for spontaneous bacterial peritonitis in January 2019. The patient is currently on the liver transplant list in [place] per Dr. Schmid, her GI physician. She is awaiting a compatible liver at this time. She has a history of frequent paracentesis performed every other week by Dr. Schmid. In the ED, the patient was given 1 g Rocephin, 20 g lactulose, and 1 L bolus of normal saline. A CT head without contrast was performed, which showed no acute pathology. Her urine was positive for 250 leukocyte esterase and 21 to 50 wbc's. UDS was negative. The patient was typed and screened and started on 1 unit of PRBCs. The patient was admitted for observation on the medicine floor with further workup and evaluation for presumed hepatic encephalopathy secondary to urinary tract infection and stopping her home lactulose medication. Upon arrival to the floor, Rocephin was continued for antibiotic coverage of UTI. Further dosing of lactulose was restarted and given. Throughout the day on April 19, the patient became more alert and coherent. She stated that she did not remember anything that has happened the day prior after she left her home. She does give further history that she felt classic UTI symptoms including dysuria, frequency, and suprapubic pressure that started on Wednesday. She started to notice that she was becoming confused on Wednesday and that continued to progress and it worsened over the weekend. On Wednesday, she stopped her lactulose because she thought it was causing her to go to the bathroom more frequently. The patient had been scheduled for paracentesis on Wednesday, when family members came to take her to the appointment , was when they noted she was very confused and called EMS. The patient has also noted in the last few days that she has more frequent BMs and describes her stool as dark in color. The patient's hemoglobin was originally 7.3. Repeat H and H had 7.1 hemoglobin, and the following morning April 20 was 6.4 hemoglobin. At that point, the patient was transfused another 2 units of PRBCs, and octreotide bolus and drip was initiated. Dr. Cota, GI was consulted for further evaluation of the patient due to concern for upper GI bleed considering recent hospitalizations as above. Later in the day, Dr. Cota evaluated the patient and determined that the blood loss/anemia was likely due to hemorrhoids. He recommended discontinuing her octreotide drip and determined she was stable for discharge back home. Repeat H and H had trended up to 8.7. On the afternoon of April 20, 2019, the patient was deemed stable for discharge back home with close followup with her usual GI physician, Dr. Schmid. PERTINENT LABORATORY DATA: 1. Labs on April 18, 2019, admission labs. a. CBC: WBC 4.6, hemoglobin 7.3, hematocrit 22.1, and platelets 114. b. PT 16.5, INR 1.3, APTT 36.8. c. CMP: Sodium 138, potassium 3.9, chloride 109, carbon dioxide 20, BUN 24, creatinine 1.3, glucose 237, calcium 8.6, total bilirubin 1.8, AST 36, ALT 18, and alkaline phosphatase 104. d. Ammonia 61. e. Lipase 38. f. UA: Leukocyte esterase 250, urine wbc's 21 to 50, urine rbc's 0 to 3, urine squamous epithelial cells 0 to 3, urine bacteria 1+, nitrite negative. g. UDS negative. h. Repeat H/H: Hemoglobin 7.1 and hematocrit 20.5. 2. Labs on April 20, 2019, discharge labs. a. CBC: WBC 3.5, hemoglobin 8.2, hematocrit 24.4, and platelets 73. b. PT 17.2, INR 1.4, APTT 38.8. c. BMP: Sodium 133, potassium 4.0, chloride 108, carbon dioxide 19, BUN 20, creatinine 1.42, and glucose 203. DISPOSITION: Stable. DISCHARGE INSTRUCTIONS: 1. Location: Home. 2. Diet: Low-sodium. 3. Activity: As tolerated. 4. Follow up with Dr. Jeff, PCP at [facility] in 3 to 5 days. 5. Follow up with Dr. Schmid for hospital stay in 1 to 2 weeks. Continue with routine paracentesis appointment on Wednesday. Job ID: [id number] MTDD
--- NOTE | 2019-04-22 11:44 | EKG ---
Test Reason : Blood Pressure : / mmHG Vent. Rate : 106 BPM Atrial Rate : 106 BPM P-R Int : 150 ms QRS Dur : 050 ms QT Int : 348 ms P-R-T Axes : 051 035 063 degrees QTc Int : 462 ms Sinus tachycardia Nonspecific ST abnormality Abnormal ECG Confirmed by CATRACHITO SHORE ([id number]), food expeditor PARVIZ KENNEDY ([id number]) on 04/22/2019 11:44:08 AM Referred By: Confirmed By:CATRACHITO SHORE
== END 2019-04-20 14:44 | disposition home or self-care (01) | DRG 442 ==
LOC: ERS 09:09 → T4-A 13:37
PROVIDERS: ADMIT Family Medicine; ATTEND Family Medicine
DX: K72.90 Hepatic failure, unspecified without coma (principal); N30.00 Acute cystitis without hematuria; D61.818 Other pancytopenia; R18.8 Other ascites; D63.1 Anemia in chronic kidney disease; N18.3 Chronic kidney disease, stage 3 (moderate); K21.9 Gastro-esophageal reflux disease without esophagitis; I12.9 Hypertensive chronic kidney disease with stage 1 through stage 4 chronic kidney disease, or unspecified chronic kidney disease; F41.9 Anxiety disorder, unspecified; F17.210 Nicotine dependence, cigarettes, uncomplicated; E11.22 Type 2 diabetes mellitus with diabetic chronic kidney disease; Z91.14 Patient's other noncompliance with medication regimen; Z88.6 Allergy status to analgesic agent; Z88.0 Allergy status to penicillin; Z88.2 Allergy status to sulfonamides; Z88.8 Allergy status to other drugs, medicaments and biological substances; K74.60 Unspecified cirrhosis of liver; K75.81 Nonalcoholic steatohepatitis (NASH)
CPT/HCPCS: 36415; 36430; 51701; 70450; 80053; 80306; 80307; 81003; 81015; 82140; 82274; 83690; 85025; 85610; 85730; 86850; 86900; 86901; 87040; 87077; 87086; 87186; 93005; 94760; 96361; 96365; J0696; J2354; J3490; J7050; P9016; Q0163

== ENCOUNTER 2019-04-25 09:18 | Day surgery (SDC) | payer OTHER ==
[2019-04-25] MEDS ORDERED: Albumin 25% 200 ML ONE (09:52)
[2019-04-25] MEDS ORDERED: Sodium Chloride 0.9% 20 ML ONE (10:03)
[2019-04-25 10:46] LABS: INR-International Normal Ratio 1.5; Prothrombin Time 17.9 SEC (12.0-14.7)
[2019-04-25 11:02] LABS: ALT (SGPT) 26 U/L (8-55); AST (SGOT) 44 U/L (5-34); Albumin 2.7 g/dL (3.5-5.0); Alkaline Phosphatase 106 U/L (40-150); Anion Gap 10 mmol/L (10-20); BUN (Urea Nitrogen) 14 mg/dL (9.8-20.1); Bilirubin, Total 1.3 mg/dL (0.2-1.2); Calc. Creatinine Clearance 0 mL/min (70-130); Calcium 8.1 mg/dL (7.8-10.44); Carbon Dioxide 21 mmol/L (22-29); Chloride 104 mmol/L (98-107); Estimated GFR-MDRD 45; Globulin 2.3 g/dL (2.4-3.5); Glucose 337 mg/dL (70-105); Potassium 3.7 mmol/L (3.5-5.1); Sodium 131 mmol/L (136-145)
[2019-04-25] MEDS ORDERED: Sodium Chloride 0.9% 10 ML ONE (11:18)
[2019-04-25 11:32] LABS: Follow-up Chemistry Comp? YES; Follow-up Result - Chemistry REPORT FAXED; Follow-up Result - Hematology REPORT FAXED
[2019-04-25 11:33] LABS: Follow-up Hematology Comp? YES
--- NOTE | 2019-04-25 11:41 | ULT ---
Exam: Ultrasound guided paracentesis HISTORY: Ascites COMPARISON: 04/11/2019 FINDINGS: Successful ultrasound-guided paracentesis. Total of 5 L of yellow color ascites was aspirat ed. TECHNIQUE: Consent obtained reformatory ultrasound-guided paracentesis. Right lower quadrant was deem ed appropriate. Skin was prepped and draped in a sterile fashion. 1% lidocaine, buffered with sodium bicarbonate was used for local anesthesia. Under ultrasound guidance, a 5 Faroese 7 cm Yueh cat heter is advanced in the peritoneal space. A total of 5 L of yellow color ascites was aspirated. No immediate or postprocedural complications IMPRESSION: Successful ultrasound-guided paracentesis.
[2019-04-25 11:43] VITALS: BP 99/58; TEMP 98.1
== END 2019-04-25 11:27 | disposition home or self-care (01) ==
LOC: ULT 09:18
PROVIDERS: ATTEND Internal Medicine Gastroenterology
PROC: 0W9G3ZZ Drainage of Peritoneal Cavity, Percutaneous Approach (ICD-10-PCS; principal; 2019-04-25)
DX: K74.60 Unspecified cirrhosis of liver (principal); R18.8 Other ascites; K31.819 Angiodysplasia of stomach and duodenum without bleeding; F41.9 Anxiety disorder, unspecified; Z87.891 Personal history of nicotine dependence; Z99.89 Dependence on other enabling machines and devices; Z88.0 Allergy status to penicillin; Z88.6 Allergy status to analgesic agent; Z88.5 Allergy status to narcotic agent; Z88.8 Allergy status to other drugs, medicaments and biological substances; Z91.018 Allergy to other foods
CPT/HCPCS: 49083; 80053; 85610; P9047

== ENCOUNTER 2019-05-02 09:33 | Day surgery (SDC) | payer OTHER ==
[2019-04-28 11:56] VITALS: BMI 27.3
[2019-05-02] MEDS ORDERED: Sodium Bicarbonate 2.5 MEQ/5 ML VIAL ONE (10:26)
[2019-05-02] MEDS ORDERED: Albumin 25% 200 ML ONE (10:26)
[2019-05-02] MEDS ORDERED: Sodium Chloride 0.9% 20 ML ONE (10:28)
[2019-05-02] MEDS ORDERED: Sodium Chloride 0.9% 10 ML ONE (10:59)
[2019-05-02 11:23] LABS: Hemoglobin 7.3 g/dL (12.0-16.0)
[2019-05-02 11:38] LABS: Anion Gap 7 mmol/L (10-20); BUN (Urea Nitrogen) 23 mg/dL (9.8-20.1); Calc. Creatinine Clearance 66 mL/min (70-130); Carbon Dioxide 25 mmol/L (22-29); Chloride 103 mmol/L (98-107); Estimated GFR-MDRD 45; Glucose 265 mg/dL (70-105); Potassium 3.8 mmol/L (3.5-5.1); Sodium 131 mmol/L (136-145)
[2019-05-02 12:10] VITALS: BP 114/63; TEMP 98.3
--- NOTE | 2019-05-02 12:57 | ULT ---
Ultrasound-guided paracentesis: 05/02/2019 HISTORY: Symptomatic ascites FINDINGS: Informed consent obtained prior to the procedure. Preprocedural imaging demonstrated signif icant ascites throughout the abdomen and pelvis. Right lower quadrant prepped and draped in normal sterile fashion and anesthetized with 1% buffered l idocaine. With direct sonographic guidance, 5 Icelandic Yueh catheter is advanced into the ascites and removal of the stylet yielded yellow fluid. 2 L were removed. The patient tolerated the procedure well. No postprocedural complications. IMPRESSION: Successful ultrasound-guided paracentesis yielding 2 L of yellow fluid.
== END 2019-05-02 11:54 | disposition home or self-care (01) ==
LOC: ULT 09:33
PROVIDERS: ATTEND Internal Medicine Gastroenterology
PROC: BW40ZZZ Ultrasonography of Abdomen (ICD-10-PCS; principal; 2019-05-02)
PROC: 0W9G3ZZ Drainage of Peritoneal Cavity, Percutaneous Approach (ICD-10-PCS; principal; 2019-05-02)
DX: K74.60 Unspecified cirrhosis of liver (principal); R18.8 Other ascites; I12.9 Hypertensive chronic kidney disease with stage 1 through stage 4 chronic kidney disease, or unspecified chronic kidney disease; E11.22 Type 2 diabetes mellitus with diabetic chronic kidney disease; N18.9 Chronic kidney disease, unspecified; D63.1 Anemia in chronic kidney disease; F41.9 Anxiety disorder, unspecified; F32.9 Major depressive disorder, single episode, unspecified; J44.9 Chronic obstructive pulmonary disease, unspecified; Z87.891 Personal history of nicotine dependence; Z88.0 Allergy status to penicillin; Z88.1 Allergy status to other antibiotic agents; Z88.5 Allergy status to narcotic agent; Z88.8 Allergy status to other drugs, medicaments and biological substances
CPT/HCPCS: 49083; 80048; 85014; 85018; J1642; P9047

== ENCOUNTER 2019-05-03 10:04 | Outpatient (CLI) | payer OTHER ==
--- NOTE | 2019-05-03 12:11 | ULT ---
US Hepatic Doppler: 05/03/2019 12:00 AM CLINICAL HISTORY: TIPS patency. STUDY: Right upper quadrant ultrasound of liver. TECHNIQUE: Multiplanar grayscale and color Doppler images were obtained in a ultrasound of the right upper quadrant of the abdomen. Spectral analysis of the Doppler waveforms of the hepatic and splenic vessels were performed. COMPARISON: 02/11/2019 FINDINGS: Liver: Size: Normal. Echogenicity: Normal. Contour: Nodular consistent with cirrhosis. Mass: None. There is a small amount of ascites. Bile ducts: No intrahepatic or extrahepatic biliary dilatation. Common bile duct measures 8 mm. Gallbladder: Absent Pancreas: Head and body appear normal; tail obscured by bowel gas. TIPS stent is patent with normal directional flow. Hepatic veins: Normal waveforms. Normal directional flow. Portable veins: Normal waveforms. Normal directional flow. Hepatic arteries: Normal waveforms. Normal directional flow. Splenic vein: Normal waveforms. Normal directional flow. Splenic artery: Normal waveforms. Normal directional flow. The spleen is normal in echogenicity without focal lesions and measures 17.0cm in length. IMPRESSION: 1. Cirrhotic liver with patent TIPS stent. 2. Ascites
== END 2019-05-03 10:05 | disposition home or self-care (01) ==
LOC: BICULT 10:04
PROVIDERS: ATTEND Nurse Practitioner Family
DX: K74.60 Unspecified cirrhosis of liver (principal); R18.8 Other ascites
CPT/HCPCS: 76705

== ENCOUNTER 2019-05-04 20:37 | Inpatient (IN) | payer OTHER ==
--- NOTE | 2019-05-04 21:10 | RAD ---
Chest one view HISTORY: Altered mental status. COMPARISON: 01/25/2019. FINDINGS: Cardiac silhouette is magnified by projection. Pulmonary under upper limits of normal. Medi astinum is midline. Right internal jugular central venous catheter in place with tip over the right atrium. No lobar consolidation or evidence of pneumothorax. Mild patchy bibasilar infiltrates. IMPRESSION: Mild patchy bibasilar infiltrates favored to be related to borderline pulmonary vascular congestion.
--- NOTE | 2019-05-04 21:38 | CT ---
CT head noncontrast HISTORY: Altered mental status. COMPARISON: 04/18/2019. FINDINGS: There is no evidence of acute intracranial hemorrhage or infarct. Diffuse cortical atrophy and mild chronic ischemic small vessel disease are stable. There is no mass effect or shift of midline structures. Visualized paranasal sinuses remain well aerated. IMPRESSION: No acute intracranial abnormalities are demonstrated. Chronic-type findings are stable.
[2019-05-04] MEDS ORDERED: Pantoprazole 40 MG VIAL ONE (21:44)
[2019-05-04] MEDS ORDERED: Pantoprazole 80 MG, Admixture Fee 1 EACH in Sodium Chloride 0.9% 100 ML IVPB SCH (21:45)
[2019-05-04] MEDS ORDERED: Octreotide Acetate 1,250 MCG in Sodium Chloride 0.9% 250 ML 250 ML IVPB SCH (21:45)
[2019-05-04 21:51] LABS: Bacteria/HPF 4+ HPF (None Seen); Bilirubin Negative (Negative); Blood, Urine 1+ (Negative); Clarity Clear (Clear); Glucose, Urine (Dipstick) Normal (Negative); Leukocyte 25 Leu/uL (Negative); Nitrite Negative (Negative); Protein, Urine (Dipstick) Negative (Neg-Trace); Urobilinogen Normal mg/dL (Less than 2); WBC/HPF 0-3 HPF (0-3)
[2019-05-04 22:01] LABS: Hemoglobin 6.2 g/dL (12.0-16.0); Mean Corpuscular HGB CONC 33.4 g/dL (32.0-36.0); Mean Corpuscular Volume 95.7 fL (78.0-98.0); Red Blood Cell (RBC) Count 1.95 mill/uL (4.20-5.40); White Blood Cell (WBC) Count 2.6 thou/uL (4.8-10.8)
[2019-05-04 22:17] LABS: Band 8 % (5-11); Eosinophils 1 % (0-10); Hypochromia SLIGHT = 6-15 cells (100X) (0-5/hpf); Lymphocytes 3 % (21-51); MDiff Complete? YES; Mean Platelet Volume 7.6 fL (7.4-10.4); Monocytes 8 % (0-10); Neutrophil 80 % (42-75); Platelet Count 73 thou/uL (130-400); Platelet Morphology Comment Appears Decreased; RBC Distribution Width 15.5 % (11.5-14.5)
[2019-05-04 22:26] LABS: ALT (SGPT) 43 U/L (8-55); AST (SGOT) 92 U/L (5-34); Albumin 2.7 g/dL (3.5-5.0); Alkaline Phosphatase 88 U/L (40-150); Anion Gap 12 mmol/L (10-20); BUN (Urea Nitrogen) 32 mg/dL (9.8-20.1); Bilirubin, Total 2.2 mg/dL (0.2-1.2); CK (CPK) 28 U/L (29-168); Calc. Creatinine Clearance 0 mL/min (70-130); Calcium 7.9 mg/dL (7.8-10.44); Carbon Dioxide 19 mmol/L (22-29); Chloride 113 mmol/L (98-107); Estimated GFR-MDRD 40; Globulin 1.8 g/dL (2.4-3.5); Glucose 189 mg/dL (70-105); Lipase 24 U/L (8-78); Protein, Total 4.5 g/dL (6.0-8.3); Sodium 140 mmol/L (136-145)
--- NOTE | 2019-05-04 22:34 | CT ---
CT head noncontrast HISTORY: Altered mental status. COMPARISON: 04/18/2019. FINDINGS: There is no evidence of acute intracranial hemorrhage or infarct. The ventricles appear nor mal in size, shape and position. There is no mass effect or shift of midline structures. Visualized paranasal sinuses remain well-aerated. IMPRESSION: No acute intracranial abnormalities are demonstrated.
[2019-05-04] MEDS ORDERED: Lidocaine 1% PF 5 ML VIAL ONE (22:48)
[2019-05-04] MEDS ORDERED: cefTRIAXone\\ROCEPHIN 2 GM VIAL ONE (22:48)
[2019-05-04] MEDS ORDERED: Lidocaine 1% (PF) 30 ML VIAL ONE (22:49)
--- NOTE | 2019-05-04 23:10 | PDOC.FPRHP ---
- History of Present Illness Chief Complaint: altered mentation History of Present Illness: 53 y/o F with PMHx of cirrhosis, GI bleeding, and HTN presents to the ED after found by family to not be in her usual responsive state. Pt's mother states that she usually takes all her medications as prescribed and follows physician recommendations. She was found to be very somnulent by her around lunch on 05/04. He let her rest, just thinking she was sleepy. When he returned form work around 1600 she was still sleeping. He found her in a pool of blood around her mouth. Pt was brought to the ED and where a large volume black stool was recorded. Pt is slightly arousable to painful stimuli, moves all 4 extremities, and does not follow commands. Pt given octreotide, protonix and rocephin in the ED. Hg found to be 6.2. - Allergies/Adverse Reactions Allergies Allergy/AdvReac Type Severity Reaction Status Date / Time acetaminophen [From Tylenol] Allergy Verified 05/02/19 12:12 aspirin Allergy Verified 05/02/19 12:12 butorphanol [From Stadol] Allergy Verified 05/02/19 12:12 codeine Allergy Verified 05/02/19 12:12 morphine Allergy Verified 05/02/19 12:12 Penicillins Allergy vomiting Verified 05/02/19 12:12 silver Allergy Verified 05/02/19 12:12 [From Tegaderm AG Mesh] Sulfa (Sulfonamide Allergy Verified 05/02/19 12:12 Antibiotics) persimmon Allergy Uncoded 05/02/19 12:12 - Home Medications Medication Instructions Recorded Confirmed Type busPIRone HCl [Buspar] 10 mg PO BID 06/08/15 05/05/19 History Albuterol Sulfate [Proair HFA] 2 puff INH Q4HR PRN 10/20/17 05/05/19 History Iron,Carbonyl [Perfect Iron] 65 mg PO TID 12/15/17 05/05/19 History Mometasone Furoate [Nasonex] 2 spray EA NARE DAILY PRN 04/20/18 05/05/19 History Rifaximin [Xifaxan] 550 mg PO BID 12/25/18 05/05/19 History Spironolactone [Aldactone] 100 mg PO BID 01/10/19 05/05/19 History Furosemide [Lasix] 40 mg PO DAILY 02/07/19 05/05/19 History Esomeprazole Magnesium [NexIUM] 40 mg PO BID 02/24/19 05/05/19 History Magnesium 100 tab PO DAILY 04/19/19 05/05/19 History Melatonin 10 mg PO HS 04/19/19 05/05/19 History Pantoprazole [Protonix] 40 mg PO BID 04/19/19 05/05/19 History Cyanocobalamin (Vitamin B-12) 2,000 mcg PO DAILY tab 04/20/19 05/05/19 Rx [Vitamin B-12] Cyclobenzaprine [Flexeril] 10 mg PO Q8H PRN tab 04/20/19 05/05/19 Rx Folic Acid [Folvite] 1 mg PO DAILY tab 04/20/19 05/05/19 Rx Midodrine HCl [ProAmatine] 5 mg PO TID-WM tab 04/20/19 05/05/19 Rx traMADol HCl [Ultram] 50 mg PO TID PRN tab 04/20/19 05/05/19 Rx Lactulose 20 gm PO BID 04/28/19 05/05/19 History Loratadine [Claritin] 10 mg PO DAILY 04/28/19 05/05/19 History - History PMHx: anxiety, DM, GERD, Cirrhosis, Ascites, HTN PSHx: TIPS FHx: non-contributory Social: Former smoker, Unable to obtain 2/2 AMS Former alcoholic. No drinking currently per mother - Review of Systems ROS unobtainable: due to mental status (pt not-responsive to verbal stimuli. Arousable to painful stimuli, but does not answer questions. All history obtained via mother.) Gastrointestinal: reports: GI bleeding - Vital signs BP: 119/65 HR: 103 RR: 18 Pox: 96% on RA Wt: 90.72 kg - Physical Exam -Constitutional: somnulent, arousable to painful stimuli only. moves all 4 extremities spontaneously. Eyes open to verbal stimuli. Asleep. GCS 9 HEENT: normocephalic and atraumatic, conjunctiva clear, MMM (dried blood around mouth), oropharynx clear (dried blood in orpharynx. No exudates or lesions.) -HEENT: bilateral scleral icterus Neck: supple, trachea midline -Neck: JVD present Heart: RRR, normal S1/S2, no murmurs/rubs/gallops, pulses present -Heart: non-pitting edema of LE's bilaterally. Lungs: CTAB, no respiratory distress, good air movement, no rales/rhonchi, no wheezing, no retractions Abdomen: soft, bowel sounds present, no masses/distention Musculoskeletal: normal structure, normal tone, ROM grossly normal Skin: good turgor -Skin: Jaundice Pale skin Heme/Lymphatic: no purpura, no petechia FMR H&P: Results - Labs Result Diagrams: 05/04/19 21:46 05/04/19 21:46 Lab results: WBC 2.6 thou/uL (4.8-10.8) L 05/04/19 21:46 Hgb 6.2 g/dL (12.0-16.0) L 05/04/19 21:46 Hct 18.7 % (36.0-47.0) L 05/04/19 21:46 MCV 95.7 fL (78.0-98.0) 05/04/19 21:46 Plt Count 73 thou/uL (130-400) L 05/04/19 21:46 Band Neuts % (Manual) 8 % (5-11) 05/04/19 21:46 Sodium 140 mmol/L (136-145) 05/04/19 21:46 Potassium 4.0 mmol/L (3.5-5.1) 05/04/19 21:46 Chloride 113 mmol/L (98-107) H 05/04/19 21:46 Carbon Dioxide 19 mmol/L (22-29) L 05/04/19 21:46 BUN 32 mg/dL (9.8-20.1) H 05/04/19 21:46 Creatinine 1.39 mg/dL (0.6-1.1) H 05/04/19 21:46 Glucose 189 mg/dL (70-105) H 05/04/19 21:46 Lactic Acid 3.0 mmol/L (0.5-2.2) H 05/04/19 21:46 Calcium 7.9 mg/dL (7.8-10.44) 05/04/19 21:46 Total Bilirubin 2.2 mg/dL (0.2-1.2) H 05/04/19 21:46 AST 92 U/L (5-34) H 05/04/19 21:46 ALT 43 U/L (8-55) 05/04/19 21:46 Alkaline Phosphatase 88 U/L (40-150) 05/04/19 21:46 Ammonia 81 umol/L (18-72) H 05/04/19 21:47 Creatine Kinase 28 U/L (29-168) L 05/04/19 21:46 Serum Total Protein 4.5 g/dL (6.0-8.3) L 05/04/19 21:46 Albumin 2.7 g/dL (3.5-5.0) L 05/04/19 21:46 Lipase 24 U/L (8-78) 05/04/19 21:46 Urine Ketones Negative mg/dL (Negative) 05/04/19 21:28 Urine Blood 1+ (Negative) A 05/04/19 21:28 Urine Nitrite Negative (Negative) 05/04/19 21:28 Ur Leukocyte Esterase 25 Salbador/uL (Negative) 05/04/19 21:28 Urine RBC 11-20 HPF (0-3) A 05/04/19 21:28 Urine WBC 0-3 HPF (0-3) 05/04/19 21:28 Ur Squamous Epith Cells 4-6 HPF (0-3) A 05/04/19 21:28 Urine Bacteria 4+ HPF (None Seen) A 05/04/19 21:28 Laboratory Tests 05/04/19 23:28 PT 17.5 H INR 1.4 APTT 39.4 H - Radiology Interpretation CT scan - head Status: report reviewed by me (no acute intracranial abnormalities present) FMR H&P: A/P - Problem List (1) Upper GI bleed Current Visit: Yes Status: Resolved Code(s): K92.2 - GASTROINTESTINAL HEMORRHAGE, UNSPECIFIED (2) Hepatic encephalopathy Current Visit: Yes Status: Acute Priority: High Code(s): K72.90 - HEPATIC FAILURE, UNSPECIFIED WITHOUT COMA (3) MELENA STOOL Current Visit: Yes Status: Acute (4) Hematemesis Current Visit: Yes Status: Acute Code(s): K92.0 - HEMATEMESIS (5) UTI (urinary tract infection) Current Visit: Yes Status: Acute Priority: High Qualifiers: Urinary tract infection type: acute cystitis Hematuria presence: without hematuria Qualified Code(s): N30.00 - Acute cystitis without hematuria (6) Cirrhosis of liver with ascites Current Visit: Yes Status: Chronic Priority: High Code(s): K74.60 - UNSPECIFIED CIRRHOSIS OF LIVER Qualifiers: Hepatic cirrhosis type: unspecified hepatic cirrhosis Qualified Code(s): K74.60 - Unspecified cirrhosis of liver; R18.8 - Other ascites Comment: SPENCER with recurrent ascites, plan for US guided paracentesis in am, GI consult pending. (7) S/P TIPS (transjugular intrahepatic portosystemic shunt) Current Visit: No Status: Chronic (8) CKD (chronic kidney disease) stage 3, GFR 30-59 ml/min Current Visit: Yes Status: Chronic Priority: Medium Code(s): N18.3 - CHRONIC KIDNEY DISEASE, STAGE 3 (MODERATE) - Plan Pt seen and evaluated by Dr. Toussaint, who is in agreement with current care plan. 53 y/o F admitted to inpatient CCU for acute encephalopathy and acute upper GI bleed. 1. Upper GI bleed - BRB per mouth, Black tarry stool - Dr. Neal (GI) consulted from ED: recommends octreotide, protonix and rocephin. EGD planned for AM. Will take emergent interventions if pt has decompensation overnight. - 1 gm Rocephin Q24H - Protonix 40 mg IV BID - Octreotide drip - H&H Q4H - Hg 6.2 on admission 2. Acute blood loss anemia, secondary to #1 - Hg 6.2 - Ordered X2 units pRBC's transfusion - H&H Q4H 3. Acute Hepatic Encephalopathy - Most likely secondary to high ammonia of 81 - GCS 9 - Pt protecting airway well. O2 saturation 96% on RA when evaluated - Continue close monitoring of vitals - Lactulose ND, 30 gm TID 4. Cirrhosis - Pt on liver transplant list - Has undergone TIPS procedure - No esophageal varices present as of last scope - Paracentesis done 05/03/19 5. Hx of HTN -Hold home meds at this time 6. Hx of DM 7. UTI - Rocephin will cover most likely organism 8. CKD stage 3 - GFR 40 - stable Code Status: full code, family to bring pt's will to hospital DVT ppx: SCD's Diet: NPO Disposition/LOS: Stable Admitted to inpatient CCU for at least 2 midnights FMR H&P: Upper Level - Pertinent history 53 yo female presents with her family for evaluation of AMS and bloody emesis. Patient has known cirrhosis and has had prior episodes similar to this. Her mother notes this is as bad as she has ever been. Please see exercise science internship note above for further information. General: Obese female, obviously encephalopathic HEENT: Obvious dried blood in mouth CV: RRR, no murmurs Respiratory: CTA-bilaterally, no wheezing Abdomen: Soft, non-tender, normoactive BS Extremities: Moving all four symmetrically, no edema Neuro: GCS 9, unable to cooperate with exam Psych: Unable to evaluate. - Plan Date/Time: 05/04/192308 I, Satish Little MD, have evaluated this patient and agree with findings/ plan as outlined by exercise science internship resident. Pertinent changes/additions are listed here. 1. Cirrhosis - Known diagnosis - Continue regimen 2. Upper GI bleed - Transfuse 2u pRBC - GI consulted and plan for endoscopic procedure in AM - Will give Rocephin for prophylaxis of SBP 3. Encephalopathy - Ammonia 82 - Will give lactulose CODE STATUS: FULL CODE PCP: CARLY Disposition: Guarded, will admit for further evaluation. Addendum - Attending - Attending Attestation Date/Time: 05/04/192299 I personally evaluated the patient and discussed the management with Dr. Trammell/ Anabel. I agree with the History, Examination, Assessment and Plan documented above with any addition or exceptions noted below. Patient is 53 yo F well known to our service with history of cirrhosis and large volume ascites from longstanding liver disease. She was admitted here a few weeks ago for initial concern for UGI bleeding but that was found to be negative. She has been extensively evaluated by GI in the past and is apparently on the liver transplant list in [place]. She has history of TIPS with revision, and had endoscopy performed a few months ago showing portal gastropathy and gastric vascular ectasia without esophageal varices. She presents today with altered mental status and pallor. Per family in the room, patient was in baseline state of health until last night. This morning, appeared more yellow and pale than normal, and had progressive confusion and lethargy through the day. She also had a large BM with dark melanotic stool and an episode of hematemasis at some point today. She was brought to the ED for further evaluation. Family in the room currently reports "this is the worst she has ever looked". On exam, vitals overall currently stable, BP normal and mild tachycardia noted. Patient is in no apparent distress, but she is altered and somnolent, but she does make purposeful movement and localizes to sternal rub. She is currently protecting her airway. GCS9. She is "thrashing" around in the bed. She had dried blood in her mouth and lips currently. She appeared icteric with noted pallor. Heart tachycardic. Abdomen is soft but protuberant. No voluntary/involuntary guarding. Palpable fluid wave. Extremities without significant edema. Labs are pertinent for acute on chronic blood loss anemia at 6.2. Plt 73. Creatinine 1.4, TBili 2.2, Ammonia 81. CT brain does not reveal pathology and neither does CXR. Patient to be admitted to the CCU for Acute on chronic Hepatic Encephalopathy, Acute blood loss anemia likely 2/2 Upper GI bleed, Acute on chronic hepatic dysfunction, Stable CKD. Patient will need continued monitoring to ensure she is protecting her airway. If continues to vomit, may need intubation to prevent aspiration. She will be given 2 units PRBCs and need serial H/H. GI consulted with plans for scope in AM. Lactulose needed, but currently will defer as will either need ND or Per NGT and neither are good options. Continue Protonix IV BID , Octreotide drip, and Rocephin for SBP ppx. Current MELD-NA score 16. Her abdominal exam is not currently consistent with infectious process. Miah Toussaint MD, MS
[2019-05-04 23:42] LABS: INR-International Normal Ratio 1.4; PTT 39.4 SEC (22.9-36.1); Prothrombin Time 17.5 SEC (12.0-14.7)
[2019-05-05] MEDS ORDERED: Ondansetron PF 4 MG/2 ML Vial IVP PRN ×2 (00:42→01:07)
[2019-05-05] MEDS ORDERED: Sodium Chloride 0.9% 1,000 ML IV SCH (00:42)
[2019-05-05] MEDS ORDERED: Ondansetron ODT 4 MG TAB SL PRN (00:42)
[2019-05-05] MEDS ORDERED: Sodium Chloride 0.9% (PF) 10 ML VIAL FS PRN (01:24)
[2019-05-05 02:17] VITALS: BMI 30.7
[2019-05-05] MEDS ORDERED: Cyclobenzaprine 10 MG TAB PO PRN (03:08)
[2019-05-05] MEDS ORDERED: PROVENTIL INHALER 6.7 G (200 INHALATIONS) INH PRN (03:08)
[2019-05-05] MEDS ORDERED: Fluticasone Propionate Nasal Spray 16 gm Bottle NASAL PRN (03:30)
[2019-05-05] MEDS: Lactated Ringer's 1,000 ML IV SCH ×2 (04:56→15:37)
[2019-05-05 05:20] LABS: Lactic Acid 3.4 mmol/L (0.5-2.2)
[2019-05-05 05:25] LABS: Band 12 % (5-11); Hemoglobin 8.7 g/dL (12.0-16.0); Hypochromia SLIGHT = 6-15 cells (100X) (0-5/hpf); Lymphocytes 5 % (21-51); MDiff Complete? YES; Mean Corpuscular HGB CONC 34.1 g/dL (32.0-36.0); Mean Corpuscular Volume 93.8 fL (78.0-98.0); Mean Platelet Volume 7.6 fL (7.4-10.4); Neutrophil 83 % (42-75); Platelet Count 73 thou/uL (130-400); Platelet Morphology Comment Appears Decreased; RBC Distribution Width 15.7 % (11.5-14.5); Red Blood Cell (RBC) Count 2.72 mill/uL (4.20-5.40)
[2019-05-05 05:34] LABS: ALT (SGPT) 53 U/L (8-55); AST (SGOT) 119 U/L (5-34); Albumin 2.7 g/dL (3.5-5.0); Alkaline Phosphatase 93 U/L (40-150); Anion Gap 14 mmol/L (10-20); BUN (Urea Nitrogen) 33 mg/dL (9.8-20.1); Calc. Creatinine Clearance 65 mL/min (70-130); Calcium 7.9 mg/dL (7.8-10.44); Carbon Dioxide 15 mmol/L (22-29); Chloride 114 mmol/L (98-107); Estimated GFR-MDRD 44; Globulin 1.9 g/dL (2.4-3.5); Glucose 263 mg/dL (70-105); Potassium 3.9 mmol/L (3.5-5.1); Protein, Total 4.6 g/dL (6.0-8.3); Sodium 139 mmol/L (136-145)
--- NOTE | 2019-05-05 06:17 | PDOC.FM ---
- Subjective Subjective: pt somnolent in bed, minimally arousable to pain and verbal stimuli, not in distress - Objective Vital Signs & Weight: Vital Signs (12 hours) Temp Resp Pulse Ox 05/05/19 04:00 98.1 F 05/05/19 02:15 98.2 F 05/05/19 02:03 98.6 F 05/05/19 01:56 18 97 05/05/19 01:55 98.6 F 05/05/19 01:07 100 05/05/19 00:32 98.8 F Weight Weight 78.6 kg Most Recent Monitor Data Heart Rate from ECG 117 NIBP 140/81 NIBP BP-Mean 100 Respiration from ECG 23 SpO2 100 I&O: 05/03/19 05/04/19 05/05/19 06:59 06:59 06:59 Intake Total 978.6 Balance 978.6 Result Diagrams: 05/05/19 04:44 05/05/19 04:44 Phys Exam - Physical Examination Constitutional: NAD dry mm crusted in blood Neck: supple minimially distended, soft Musculoskeletal: no edema Deviation from normal: jaundiced Dx/Plan (1) Hematemesis Code(s): K92.0 - HEMATEMESIS Status: Acute (2) Hepatic encephalopathy Code(s): K72.90 - HEPATIC FAILURE, UNSPECIFIED WITHOUT COMA Status: Acute (3) Cirrhosis of liver with ascites Code(s): K74.60 - UNSPECIFIED CIRRHOSIS OF LIVER Status: Chronic Qualifiers: Hepatic cirrhosis type: unspecified hepatic cirrhosis Qualified Code(s): K74.60 - Unspecified cirrhosis of liver; R18.8 - Other ascites (4) Upper GI bleed Code(s): K92.2 - GASTROINTESTINAL HEMORRHAGE, UNSPECIFIED Status: Resolved (5) ZACHARY (acute kidney injury) Code(s): N17.9 - ACUTE KIDNEY FAILURE, UNSPECIFIED Status: Acute (6) Portal hypertensive gastropathy Code(s): K76.6 - PORTAL HYPERTENSION; K31.89 - OTHER DISEASES OF STOMACH AND DUODENUM Status: Acute (7) Cirrhosis Code(s): K74.60 - UNSPECIFIED CIRRHOSIS OF LIVER Status: Chronic Qualifiers: Ascites presence: with ascites (8) HTN (hypertension) Code(s): I10 - ESSENTIAL (PRIMARY) HYPERTENSION Status: Chronic Qualifiers: Hypertension type: unspecified Qualified Code(s): I10 - Essential (primary ) hypertension (9) S/P TIPS (transjugular intrahepatic portosystemic shunt) Status: Chronic - Plan Plan: UGI bleed - BRB per mouth, Black tarry stool on admission, Hb 6.2 - Dr. Neal (GI) consulted, appreciate recs - 1 gm Rocephin Q24H, Protonix 40 mg IV BID, Octreotide drip - EGD pending Acute on chronic blood loss anemia - s/p 2u PRBC 05/05 - improved to 8.7 - monitor and transfuse as needed Acute Hepatic Encephalopathy - Most likely secondary to high ammonia of 81 - Pt protecting airway well, satting well on room air - Continue close monitoring of vitals - Lactulose IL, 30 gm TID Cirrhosis - Pt on liver transplant list - s/p TIPS procedure - No esophageal varices present as of last scope - Paracentesis done 05/03/19 Hx of HTN -Hold home meds at this time Hx of DM CKD stage 3 - GFR 40 - stable, monitor Code Status: full code, family to bring pt's will to hospital DVT ppx: SCD's Diet: NPO dispo: monitor in ccu, EGD this morning Addendum - Attending - Attending Attestation Date/Time: 05/05/19 1261 I personally evaluated the patient and discussed the management with Dr. Whitmore. I agree with the History, Examination, Assessment and Plan documented above with any addition or exceptions noted below. Patient here for hepatic encephalopathy in the setting of presumed upper GI bleeding. She continues to undergo transfusion, Octreotide, Protonix, and Rocephin. Await GI input. She needs lactulose but currently NPO. Need repeat coags this morning. Her TBili has increased which could be due to worsening liver dysfunction or just digestion of blood products and recirculation. Further mgmt per GI recs. Continue in CCU for now.
[2019-05-05 08:31] LABS: Hemoglobin 8.6 g/dL (12.0-16.0)
[2019-05-05] MEDS: Folic Acid 1 MG TAB PO SCH (08:34)
[2019-05-05] MEDS: Cyanocobalamin (Vitamin B-12) 1,000 MCG TAB PO SCH (08:34)
[2019-05-05] MEDS: Furosemide 40 MG TAB PO SCH (08:34)
[2019-05-05] MEDS: Ferrous Sulfate 325 MG TAB PO SCH ×3 (08:34→21:24)
[2019-05-05] MEDS: busPIRone HCl 10 MG TAB PO SCH ×2 (08:34→21:24)
[2019-05-05] MEDS: Midodrine HCl 5 MG TAB PO SCH ×3 (08:34→17:24)
[2019-05-05] MEDS: Magnesium Oxide 250 MG TAB PO SCH (08:35)
[2019-05-05] MEDS: Loratadine 10 MG TAB PO SCH (08:35)
[2019-05-05] MEDS: Spironolactone 100 MG TAB PO SCH ×2 (08:35→21:24)
[2019-05-05] MEDS: Rifaximin 550 MG TAB PO SCH ×2 (08:35→21:24)
[2019-05-05 08:39] LABS: INR-International Normal Ratio 1.4; PTT 36.8 SEC (22.9-36.1); Prothrombin Time 17.4 SEC (12.0-14.7)
[2019-05-05] MEDS ORDERED: Prevnar 13-Val Conj/PF 0.5 ML SYRINGE IM ONE (09:00)
[2019-05-05] MEDS ORDERED: Pantoprazole 40 MG VIAL IVP SCH (09:00)
--- NOTE | 2019-05-05 12:49 | CON ---
DATE OF CONSULTATION: 05/05/2019 CONSULTING PHYSICIAN: [facility] Service. REASON FOR CONSULTATION: ICU care. Following encompassed 70 minutes of time, of that time, greater than 50% was spent with the patient and/or the patient's unit in the hospital. HISTORY OF PRESENT ILLNESS: This is a 53-year-old female, who was admitted last night with hepatic encephalopathy and upper GI bleeding, presenting with melena. She is currently obtunded and cannot give me any history. What I have was obtained from discussing nursing staff and reviewing history and physical. PAST MEDICAL HISTORY: 1. Cirrhosis. 2. Ascites requiring serial paracentesis. 3. Hypertension. 4. Gastroesophageal reflux. 5. Anxiety. 6. Diabetes mellitus. PAST SURGICAL HISTORY: She has had TIPS procedure. She also has a tunneled single-lumen catheter coming from her right IJ region. FAMILY MEDICAL HISTORY: Unremarkable. SOCIAL HISTORY: Used to smoke. Used to drink heavily. REVIEW OF SYSTEMS: Cannot be obtained because she is currently obtunded. MEDICATIONS: Prior to admission; 1. BuSpar 10 mg b.i.d. 2. Albuterol 2 puffs every 4 hours as needed. 3. Iron 65 mg t.i.d. 4. Xifaxan 550 mg b.i.d. 5. Spironolactone 100 mg b.i.d. 6. Furosemide 40 mg daily. 7. Nexium 40 mg b.i.d. 8. Magnesium 100 mg daily. 9. Melatonin 10 mg nightly. 10. Vitamin B12 of 2000 mcg daily. 11. Flexeril 10 mg every 8 hours. 12. Folate 1 mg daily. 13. Midodrine 5 mg t.i.d. 14. Tramadol 50 mg t.i.d. 15. Lactulose 20 mg b.i.d. 16. Claritin 10 mg daily. ALLERGIES: [QAMARKER] ASPIRIN, BUTORPHANOL, CODEINE, MORPHINE, PENICILLIN, SILVER, SULFA, AND PERSIMMON. PHYSICAL EXAMINATION: VITAL SIGNS: Pulse 123, blood pressure 117/68, O2 saturation 100%, respiratory rate 17, and temperature 98.1. GENERAL: She is obtunded, but is in no overt distress. HEENT: Sclerae are slightly icteric. Oropharynx dry. NECK: No adenopathy or JVD. LUNGS: Clear to auscultation anteriorly. CARDIAC: S1 and S2 tachycardic without murmur. ABDOMEN: Soft. She has mild ascites. EXTREMITIES: No clubbing or cyanosis. She is jaundiced throughout. LABORATORY DATA: Sodium 139, potassium 3.9, chloride 114, CO2 of 15, BUN 33, creatinine 1.2, glucose 263, AST 119, ALT 53, albumin 2.7, and total bilirubin 7.0. INR is 1.4. White blood cell count 5, hemoglobin 8.7, hematocrit 25.6, and platelet count 73. ASSESSMENT: 1. Decompensated cirrhosis. 2. Upper gastrointestinal bleeding. 3. Hepatic encephalopathy. 4. Anemia due to blood loss. 5. Metabolic acidosis. RECOMMENDATIONS: 1. GI intervention for gastrointestinal bleeding also to rule out possibility of variceal bleeding. 2. Agree with lactulose. 3. Empiric antibiotics for spontaneous bacterial peritonitis prophylaxis. 4. Consider IV bicarbonate. Job ID: [id number]
[2019-05-05] MEDS: Pantoprazole 80 MG in Sodium Chloride 0.9% 100 ML IVP SCH ×2 (12:54→21:26)
--- NOTE | 2019-05-05 13:30 | CON ---
DATE OF CONSULTATION: 05/05/2019 REASON FOR CONSULTATION: Hematemesis and encephalopathy. HISTORY OF PRESENT ILLNESS: Jesse Gonzalez is a 53-year-old woman, seen by my colleague, Dr. Jessee Schmid. She has a history of decompensated cirrhosis with complications of portal hypertension, ascites, and hepatic encephalopathy. She has undergone TIPS placement in the past for history of esophageal varices. She has developed chronic gastrointestinal bleeding from gastric antral vascular ectasias and severe portal hypertensive gastropathy. She has had multiple hospitalizations in recent months for ongoing anemia with repeated need for transfusions. She is on lactulose and rifaximin for her encephalopathy. Her last EGD was in January 2019, at which time, she was noted to have no varices, but severe portal hypertensive gastropathy with oozing as well as significant gastric antral vascular ectasias with APC treatment performed at that time. The patient underwent her usual weekly therapeutic paracentesis a couple of days ago. She was brought into the hospital last night due to altered mental status, which developed that day. The patient was essentially found to be unresponsive over the course of several hours. Family then noted that there was bright red blood pooling in her mouth and then she had what appeared to be a large black stool. She was brought in to the ER last night and found to be mildly tachycardic, but with stable blood pressures, and overtly encephalopathic. Hemoglobin was found to be 6.2, which is slightly down from her baseline at 7 to 8. She received 2 units of RBC transfusion overnight and this morning hemoglobin is up to 8.7. She has remained encephalopathic and tachycardic, but otherwise stable. She was started on Protonix, octreotide, and Rocephin. REVIEW OF SYSTEMS: Unable to obtain due to the patient's altered mental status. 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 FAMILY HISTORY: Negative for GI malignancy. SOCIAL HISTORY: No current alcohol. No drug use. Evidently, she does smoke 1 to 2 cigarettes per day. ALLERGIES: ACETAMINOPHEN, ASPIRIN, BUTORPHANOL, CODEINE, MORPHINE, PENICILLIN, SULFA, AND PERSIMMON. HOME MEDICATIONS: 1. Buspirone. 2. Albuterol. 3. Iron 65 mg t.i.d. 4. Nasonex. 5. Rifaximin 550 mg twice daily. 6. Spironolactone 100 mg twice daily. 7. Furosemide 40 mg daily. 8. Nexium 40 mg b.i.d. 9. Magnesium 100 mg daily. 10. Melatonin. 11. Pantoprazole 40 mg b.i.d. 12. Vitamin B12. 13. Flexeril. 14. Folic acid. 15. Midodrine. 16. Tramadol. 17. Lactulose 20 g p.o. b.i.d. 18. Loratadine. PHYSICAL EXAMINATION: VITAL SIGNS: Pulse 119, blood pressure 106/80, oxygen saturation 100% on room air. GENERAL: A 53-year-old woman, lying in bed, overtly encephalopathic, though in no distress. SKIN: No jaundice. No rashes were palpable. EYES: No scleral icterus. ENT: Mucous membranes moist. LYMPH: No submandibular or supraclavicular lymphadenopathy. THYROID: Nontender to palpation. HEART: Regular, tachycardia. LUNGS: Clear to auscultation bilaterally. ABDOMEN: Nondistended. Bowel sounds are present. The patient does not withdraw to palpation throughout. EXTREMITIES: No peripheral edema. LABORATORY STUDIES: Hemoglobin initially 6.2, now up to 8.7 after 2 units of RBC transfusion, WBC is 5.0, and platelets 73. INR is 1.4. Sodium 139, potassium 3.9, BUN 33, creatinine 1.28, and glucose 263. Lactic acid elevated at 3.4. Total bilirubin 2.2 on admission, shot up dramatically to 7.0 overnight; alkaline phosphatase 93; AST 119; and ALT 53. Ammonia elevated at 81. Troponin negative. CK only 28. Albumin 2.7. Lipase only 24. Urinalysis shows 11 to 20 rbc's, 0 to 3 wbc's. IMAGING STUDIES: Chest x-ray suggest mild pulmonary vascular congestion. CT head shows no acute processes. ASSESSMENT AND PLAN: 1. Hematemesis. 2. Acute on chronic blood loss anemia. 3. Severe portal hypertensive gastropathy and gastric antral vascular ectasia. The patient has had a transjugular intrahepatic portosystemic shunt procedure in the past and recent esophagogastroduodenoscopy in January did not show any esophageal or gastric varices. What she does have is severe portal hypertensive gastropathy and gastric antral vascular ectasia. She has been getting transfusions periodically over the past several months for this as well as being on oral iron. However, now in the context of recurrent overt bleeding, repeat EGD is indicated. Suspect she is having bleeding from her gastric antral vascular ectasias. Depending on findings, we will consider APC treatment. For now, continue the octreotide and the Protonix as well as the Rocephin as prophylaxis. 4. Hepatic encephalopathy, exacerbation. The patient is evidently fairly well controlled on this, chronically taking rifaximin and lactulose. I am not sure about her recent adherence. Current bleeding episode is possible trigger for this exacerbation. Consider also the possibility of sepsis. Continuing antibiotics. Following endoscopy, get her started back on lactulose. Thank you for the consultation. Please call anytime with questions or concerns. Job ID: [id number]
[2019-05-05] MEDS ORDERED: Lidocaine 1% PF 5 ML VIAL ONE (13:39)
[2019-05-05] MEDS ORDERED: PROPOFOL 200 MG/20 ML VIAL ONE (13:39)
--- NOTE | 2019-05-05 18:08 | OP ---
DATE OF PROCEDURE: 05/05/2019 [employer] SURGEON: None. PROCEDURE PERFORMED: Esophagogastroduodenoscopy, diagnostic. INDICATIONS: 1. Hematemesis. 2. Melena. 3. End-stage liver disease. 4. Known history of portal hypertensive gastropathy and gastric antral vascular ectasias. 5. Prior history of TIPS placement for esophageal varices, no varices evident on last EGD in January 2019. MEDICATIONS: See Anesthesia record. FINDINGS: After discussion of the risks, benefits, and alternatives of the procedure, informed consent was obtained and witnessed. Pre-endoscopic cardiopulmonary examination was satisfactory. Time-out was performed before sedation was achieved. Sedation was achieved with Anesthesia assistance in the endoscopy unit. A Pentax adult upper endoscope was placed into the oropharynx and passed through the cricopharyngeus under direct visualization. The upper and mid esophageal mucosa appeared normal. In the distal esophagus, there was extensive scarring from prior variceal banding procedures. However, there is no evidence of any esophageal varices at this time. The endoscope was advanced into the stomach. Forward and retroflexed views of the entire gastric mucosa were obtained. There was no evidence of any old blood or active bleeding throughout the stomach. There is severe portal hypertensive gastropathy with submucosal hemorrhage and characteristic mosaic pattern throughout the gastric fundus and body. There are a few areas of mild contact oozing, but no significant bleeding from this area. In the gastric antrum, there is extensive shallow, clean-based ulceration involving, I would estimate at least half of the mucosal surface area. This might be sequela of prior APC treatment of her gastric antral vascular ectasias. The intervening mucosa does show some evidence of gastric antral vascular ectasias, but nothing actively bleeding or oozing. The endoscope was advanced through the pylorus and into the first and second portions of the duodenum, which appeared unremarkable. The upper endoscope was completely withdrawn and the patient allowed to recover. The patient tolerated the procedure well. There were no immediate postprocedure complications. IMPRESSION: 1. No old blood or active bleeding. 2. Extensive shallow, clean-based ulcerations throughout the gastric antrum, estimate involving 1/2 of the mucosal surface area. 3. Diffuse severe portal hypertensive gastropathy, with a few areas of mild contact hemorrhage in the gastric fundus, but no significant bleeding. 4. Scarring in the distal esophagus. 5. No esophageal or gastric varices. RECOMMENDATIONS: 1. IV proton pump inhibitor every 12 hours. 2. Octreotide can be discontinued. 3. Lactulose. 4. Monitor H and H, transfuse as needed. 5. GI can continue to follow along. Job ID: [id number]
[2019-05-05 20:59] LABS: Hemoglobin 8.3 g/dL (12.0-16.0)
[2019-05-05] MEDS: Melatonin 3 MG TAB PO SCH (21:24)
[2019-05-05] MEDS: cefTRIAXone\\ROCEPHIN 1 GM in Sodium Chloride 0.9% 100 ML IVPB SCH (23:41)
[2019-05-06] MEDS: Lactated Ringer's 1,000 ML IV SCH ×3 (02:04→12:24)
[2019-05-06 05:31] LABS: ALT (SGPT) 61 U/L (8-55); AST (SGOT) 138 U/L (5-34); Albumin 2.6 g/dL (3.5-5.0); Alkaline Phosphatase 83 U/L (40-150); Anion Gap 11 mmol/L (10-20); BUN (Urea Nitrogen) 47 mg/dL (9.8-20.1); Bilirubin, Total 3.3 mg/dL (0.2-1.2); Calc. Creatinine Clearance 38 mL/min (70-130); Calcium 8.3 mg/dL (7.8-10.44); Carbon Dioxide 18 mmol/L (22-29); Chloride 117 mmol/L (98-107); Estimated GFR-MDRD 24; Globulin 1.9 g/dL (2.4-3.5); Glucose 214 mg/dL (70-105); Potassium 3.7 mmol/L (3.5-5.1); Protein, Total 4.5 g/dL (6.0-8.3); Sodium 142 mmol/L (136-145)
[2019-05-06 05:35] LABS: Band 15 % (5-11); Hemoglobin 7.6 g/dL (12.0-16.0); Hypochromia SLIGHT = 6-15 cells (100X) (0-5/hpf); Lymphocytes 4 % (21-51); MDiff Complete? YES; Mean Corpuscular HGB CONC 33.6 g/dL (32.0-36.0); Mean Corpuscular Hemoglobin 31.4 pg (27.0-31.0); Mean Corpuscular Volume 93.2 fL (78.0-98.0); Mean Platelet Volume 7.8 fL (7.4-10.4); Metamyelocyte 2 % (0-0); Monocytes 7 % (0-10); Neutrophil 70 % (42-75); Nucleated RBC 1 % (0); Platelet Count 72 thou/uL (130-400); Platelet Morphology Comment Appears Decreased; RBC Distribution Width 16.8 % (11.5-14.5); Reactive Lymphocytes 1 % (0-10); Red Blood Cell (RBC) Count 2.42 mill/uL (4.20-5.40); White Blood Cell (WBC) Count 3.5 thou/uL (4.8-10.8)
--- NOTE | 2019-05-06 06:21 | PDOC.FM ---
- Subjective Subjective: Patient doing well this AM. No significant overnight events. Patient has tolerated eating, and reportedly drank a lot of water last night, so now they are limiting her fluid intake. Patient denies being in any pain. - Objective MAR Reviewed: Yes Vital Signs & Weight: Vital Signs (12 hours) Temp Pulse Ox 05/06/19 03:00 98.8 F 05/05/19 23:00 99.0 F 05/05/19 20:00 98.9 F 98 05/05/19 19:09 100 Weight Admit Weight 78.471 kg Weight 78.6 kg Most Recent Monitor Data Heart Rate from ECG 100 NIBP 107/58 NIBP BP-Mean 74 Respiration from ECG 21 SpO2 99 I&O: 05/04/19 05/05/19 05/06/19 06:59 06:59 06:59 Intake Total 978.6 3218 Balance 978.6 3218 Result Diagrams: 05/06/19 12:50 05/06/19 03:30 EKG Reviewed by me: Yes Radiology Reviewed by me: Yes Phys Exam - Physical Examination Constitutional: NAD Dry MMM Respiratory: clear to auscultation bilateral Cardiovascular: RRR Gastrointestinal: soft, non-tender, no distention, positive bowel sounds Musculoskeletal: no edema, pulses present Neurological: non-focal, moves all 4 limbs Psychiatric: normal affect, A&O x 3 Skin: no rash Dx/Plan (1) Cirrhosis of liver with ascites Code(s): K74.60 - UNSPECIFIED CIRRHOSIS OF LIVER Status: Chronic Qualifiers: Hepatic cirrhosis type: unspecified hepatic cirrhosis Qualified Code(s): K74.60 - Unspecified cirrhosis of liver; R18.8 - Other ascites (2) Upper GI bleed Code(s): K92.2 - GASTROINTESTINAL HEMORRHAGE, UNSPECIFIED Status: Resolved (3) Anemia Code(s): D64.9 - ANEMIA, UNSPECIFIED Status: Acute Qualifiers: Anemia type: unspecified type Qualified Code(s): D64.9 - Anemia, unspecified (4) Portal hypertensive gastropathy Code(s): K76.6 - PORTAL HYPERTENSION; K31.89 - OTHER DISEASES OF STOMACH AND DUODENUM Status: Acute (5) Asthma Code(s): J45.909 - UNSPECIFIED ASTHMA, UNCOMPLICATED Status: Chronic (6) DM type 2 (diabetes mellitus, type 2) Status: Chronic Qualifiers: Diabetes mellitus remote 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 insulin use: without usp use Diabetes mellitus complication status: with kidney complications Diabetes mellitus complication detail: with chronic kidney disease Chronic kidney disease stage : stage 3 (moderate) Qualified Code(s): E11.22 - Type 2 diabetes mellitus with diabetic chronic kidney disease; N18.3 - Chronic kidney disease, stage 3 ( moderate) (7) Depression Code(s): F32.9 - MAJOR DEPRESSIVE DISORDER, SINGLE EPISODE, UNSPECIFIED Status : Chronic (8) GERD (gastroesophageal reflux disease) Code(s): K21.9 - GASTRO-ESOPHAGEAL REFLUX DISEASE WITHOUT ESOPHAGITIS Status: Chronic Qualifiers: Esophagitis presence: without esophagitis Qualified Code(s): K21.9 - Gastro -esophageal reflux disease without esophagitis (9) HTN (hypertension) Code(s): I10 - ESSENTIAL (PRIMARY) HYPERTENSION Status: Chronic Qualifiers: Hypertension type: unspecified Qualified Code(s): I10 - Essential (primary ) hypertension (10) History of tobacco abuse Code(s): Z87.891 - PERSONAL HISTORY OF NICOTINE DEPENDENCE Status: Chronic - Plan Plan: UGI bleed, resolved - BRB per mouth, Black tarry stool on admission, Hb 6.2 - Dr. Neal (GI) consulted, appreciate recs - 1 gm Rocephin Q24H, Protonix 40 mg IV BID - EGD 05/05 with portal hypertensive gastropathy and non-bleeding ulcerations in gastric antrum - No varices, octreotide d/c'd per GI Acute on chronic blood loss anemia - s/p 2u PRBC 05/05 - Hg 8.7 --> 7.6 this AM - Monitor and transfuse as needed Acute Hepatic Encephalopathy, improving - Most likely secondary to high ammonia of 81 - Pt protecting airway well, satting well on room air - Continue close monitoring of vitals - Lactulose MO, 30 gm TID - A&O x3 this AM Cirrhosis - Pt on liver transplant list - s/p TIPS procedure - No esophageal varices present - Paracentesis done 05/03/19 Hx of HTN - Hold home meds at this time Hx of DM - BG 214 - Continue to monitor CKD stage 3 - GFR 40 - stable, monitor Blood cultures positive - On rocephin - staph species and coagulase neg staph - Pending sensitivities - Continue to monitor for S/S of infection Pancytopenia - Likely 2/2 decompensated cirrhosis and liver failure Code Status: full code, family to bring pt's Will to hospital DVT ppx: SCD's Diet: ADAT Dispo: Stable this AM. Will re-evaluate this afternoon and possibly move to medical floor if mental status improved. Addendum - Attending - Attending Attestation Date/Time: 05/06/19 7459 I personally evaluated the patient and discussed the management with Dr. Ornelas. I agree with the History, Examination, Assessment and Plan documented above with any addition or exceptions noted below. Will transfer to the IMCU. Continue to trend h/h as it is slowly decreasing. She has had no bloody emesis or bowel movements. f/u with GI recs.
[2019-05-06 06:53] LABS: Hemoglobin 7.5 g/dL (12.0-16.0)
[2019-05-06] MEDS: busPIRone HCl 10 MG TAB PO SCH ×2 (07:56→20:46)
[2019-05-06] MEDS: Cyanocobalamin (Vitamin B-12) 1,000 MCG TAB PO SCH (07:56)
[2019-05-06] MEDS: Loratadine 10 MG TAB PO SCH (07:57)
[2019-05-06] MEDS: Rifaximin 550 MG TAB PO SCH ×2 (07:57→20:45)
[2019-05-06] MEDS: Furosemide 40 MG TAB PO SCH (07:57)
[2019-05-06] MEDS: Ferrous Sulfate 325 MG TAB PO SCH ×3 (07:57→20:46)
[2019-05-06] MEDS: Folic Acid 1 MG TAB PO SCH (07:59)
--- NOTE | 2019-05-06 09:05 | PRG ---
DATE OF SERVICE: 05/06/2019 SUBJECTIVE: She is awake, much more oriented today than she was yesterday. She is wanting to be moved out of the ICU. OBJECTIVE: VITAL SIGNS: Her temperature is 98.8, pulse 100, blood pressure 107/50, and O2 saturation 99%. HEENT: Unremarkable. NECK: No adenopathy or JVD. CHEST: Clear. CARDIAC: S1 and S2. Regular. ABDOMEN: Soft. EXTREMITIES: Slightly jaundiced skin. LABORATORY DATA: Sodium 142, potassium 3.7, chloride 117, CO2 of 18, BUN 47, creatinine 2.1, glucose 214, AST 138, ALT 61, and total bilirubin is 3.3. White blood cell count 3.5, hematocrit 22.6, hemoglobin 7.6, and platelet count 72. ASSESSMENT: 1. Gastrointestinal bleeding from ulcer. 2. Cirrhosis. 3. Improved hepatic encephalopathy. 4. Metabolic acidosis. 5. Chronic kidney disease. PLAN: 1. The patient could probably be transferred out to the IMCU, but I would be hesitant to transfer out to the floor based on her mental status. 2. It would be very judicious about diuretics until her kidney function improves. 3. Further care per GI. Job ID: [id number]
[2019-05-06] MEDS: Pantoprazole 80 MG in Sodium Chloride 0.9% 100 ML IVP SCH ×2 (09:08→20:45)
[2019-05-06] MEDS: Midodrine HCl 5 MG TAB PO SCH ×3 (09:09→17:57)
[2019-05-06] MEDS: Spironolactone 100 MG TAB PO SCH ×2 (09:09→20:46)
[2019-05-06] MEDS: Magnesium Oxide 250 MG TAB PO SCH (09:09)
[2019-05-06 13:03] LABS: Hemoglobin 7.2 g/dL (12.0-16.0)
--- NOTE | 2019-05-06 18:02 | PRG ---
DATE OF SERVICE: 05/06/2019 SUBJECTIVE: Ms. Gonzalez is doing a lot better today. Her mental status has essentially cleared. She is tolerating her liquid diet. She has not had any melena. She remains a bit weak, hemoglobin trickled down a bit from 8.3 yesterday, now 7.2 this afternoon. PHYSICAL EXAMINATION: VITAL SIGNS: Temperature 97.6, pulse 93, blood pressure 105/58, and 100% oxygen saturation on room air. GENERAL: Jaundiced, in no acute distress. MENTAL: She is alert and oriented. She can answer questions appropriately. HEART: Regular rate and rhythm. LUNGS: Clear to auscultation bilaterally. ABDOMEN: Mild distention. Soft and nontender. Bowel sounds are active. EXTREMITIES: No peripheral edema. LABORATORY STUDIES: Hemoglobin 7.2, WBC 3.5, and platelets are 72. INR 1.4. Sodium 142, potassium 3.7, BUN 47, creatinine 2.16, total bilirubin 3.3, alkaline phosphatase 83, AST 138, ALT 61, and albumin 2.6. ASSESSMENT/PLAN: 1. Hepatic encephalopathy, improved with lactulose. Continue with lactulose and rifaximin. 2. Chronic anemia. 3. Gastric antral vascular ectasias with antral ulcerations from prior treatment. 4. Severe portal hypertensive gastropathy. The patient is going to need to stay on twice daily PPI therapy. Switch to oral upon hospital discharge. Anticipate she is going to need periodic transfusions even on an outpatient basis due to slow chronic blood loss from her gastropathy . 5. Acute kidney injury. Creatinine bumped up today from yesterday. The patient is having good urine output. Continue to follow. 6. Ascites. The patient gets weekly paracentesis on an outpatient basis. No concern for SBP at this time. Job ID: [id number]
[2019-05-06 20:42] LABS: Hemoglobin 7.4 g/dL (12.0-16.0)
[2019-05-06] MEDS: Melatonin 3 MG TAB PO SCH (20:45)
--- NOTE | 2019-05-06 22:33 | EKG ---
Test Reason : ERS.[facility] Blood Pressure : / mmHG Vent. Rate : 113 BPM Atrial Rate : 113 BPM P-R Int : 130 ms QRS Dur : 076 ms QT Int : 358 ms P-R-T Axes : 053 029 053 degrees QTc Int : 491 ms Sinus tachycardia Otherwise normal ECG Confirmed by JESS REHMAN, EZIO Palacios ([id number]), editor & co founder DORIS CANCINO ([id number]) on 05/06/2019 10:32:47 PM Referred By: Confirmed By:EZIO MERCADO MD
[2019-05-07] MEDS: cefTRIAXone\\ROCEPHIN 1 GM in Sodium Chloride 0.9% 100 ML IVPB SCH (00:10)
[2019-05-07] MEDS: Lactated Ringer's 1,000 ML IV SCH ×2 (00:18→15:35)
--- NOTE | 2019-05-07 07:59 | PDOC.FM ---
- Subjective Subjective: Patient alert this AM. No significant overnight events. Patient reports that she would like to be able to get up and use the restroom. Patient denies chest pain, shortness of breath, headache. She still endorses dry mouth. - Objective MAR Reviewed: Yes Vital Signs & Weight: Vital Signs (12 hours) Temp Pulse Resp BP Pulse Ox 05/07/19 07:24 98 05/07/19 07:15 97.4 F L 05/07/19 04:00 98.0 F 80 16 107/67 100 05/07/19 00:00 98.2 F 71 18 95/60 97 05/06/19 20:00 98 Weight Admit Weight 78.471 kg Weight 78.6 kg Most Recent Monitor Data Heart Rate from ECG 87 NIBP 117/55 NIBP BP-Mean 75 Respiration from ECG 17 SpO2 100 I&O: 05/06/19 05/07/19 05/08/19 06:59 06:59 06:59 Intake Total 3218 4628.7 Output Total 207 Balance 3218 4421.7 Result Diagrams: 05/07/19 08:05 05/07/19 08:05 EKG Reviewed by me: Yes Radiology Reviewed by me: Yes Phys Exam - Physical Examination Constitutional: NAD Alert and oriented x3 HEENT: moist MMs Respiratory: no wheezing, clear to auscultation bilateral Cardiovascular: RRR 3/6 systolic murmur Gastrointestinal: soft, non-tender, no distention Musculoskeletal: no edema, pulses present Neurological: non-focal, moves all 4 limbs Psychiatric: normal affect, A&O x 3 Skin: no rash, cap refill <2 seconds Dx/Plan (1) Cirrhosis of liver with ascites Code(s): K74.60 - UNSPECIFIED CIRRHOSIS OF LIVER Status: Chronic Qualifiers: Hepatic cirrhosis type: unspecified hepatic cirrhosis Qualified Code(s): K74.60 - Unspecified cirrhosis of liver; R18.8 - Other ascites (2) Upper GI bleed Code(s): K92.2 - GASTROINTESTINAL HEMORRHAGE, UNSPECIFIED Status: Resolved (3) Anemia Code(s): D64.9 - ANEMIA, UNSPECIFIED Status: Acute Qualifiers: Anemia type: unspecified type Qualified Code(s): D64.9 - Anemia, unspecified (4) Portal hypertensive gastropathy Code(s): K76.6 - PORTAL HYPERTENSION; K31.89 - OTHER DISEASES OF STOMACH AND DUODENUM Status: Acute (5) Asthma Code(s): J45.909 - UNSPECIFIED ASTHMA, UNCOMPLICATED Status: Chronic (6) DM type 2 (diabetes mellitus, type 2) Status: Chronic Qualifiers: Diabetes mellitus abstracter insulin use: without assisted use Diabetes mellitus complication status: with kidney complications Diabetes mellitus complication detail: with chronic kidney disease Chronic kidney disease stage : stage 3 (moderate) Qualified Code(s): E11.22 - Type 2 diabetes mellitus with diabetic chronic kidney disease; N18.3 - Chronic kidney disease, stage 3 ( moderate) (7) Depression Code(s): F32.9 - MAJOR DEPRESSIVE DISORDER, SINGLE EPISODE, UNSPECIFIED Status : Chronic (8) GERD (gastroesophageal reflux disease) Code(s): K21.9 - GASTRO-ESOPHAGEAL REFLUX DISEASE WITHOUT ESOPHAGITIS Status: Chronic Qualifiers: Esophagitis presence: without esophagitis Qualified Code(s): K21.9 - Gastro -esophageal reflux disease without esophagitis (9) HTN (hypertension) Code(s): I10 - ESSENTIAL (PRIMARY) HYPERTENSION Status: Chronic Qualifiers: Hypertension type: unspecified Qualified Code(s): I10 - Essential (primary ) hypertension (10) History of tobacco abuse Code(s): Z87.891 - PERSONAL HISTORY OF NICOTINE DEPENDENCE Status: Chronic - Plan Plan: UGI bleed, resolved - BRB per mouth, Black tarry stool on admission, Hb 6.2 - Dr. Neal (GI) consulted, appreciate recs - Protonix 40 mg IV BID - EGD 05/05 with portal hypertensive gastropathy and non-bleeding ulcerations in gastric antrum - No varices, octreotide d/c'd per GI - Low concern for SBP; will d/c rocephin Acute on chronic blood loss anemia - s/p 2u PRBC 05/05 - Hg 8.7 --> 7.6 --> 7.2 --> 7.4. AM labs pending. - Monitor and transfuse as needed Acute Hepatic Encephalopathy, improving - Most likely secondary to high ammonia of 81 - Pt protecting airway well, satting well on room air - Continue close monitoring of vitals - Lactulose NC, 30 gm TID - A&O x3 this AM Cirrhosis - Pt on liver transplant list - s/p TIPS procedure - No esophageal varices present - Paracentesis done 05/03/19 Hx of HTN - Hold home meds at this time Hx of DM - Continue to monitor CKD stage 3 - GFR 40 - AM CMP pending Staph epidermidis bacteremia - 2/2 blood cultures positive - Sensitive to clindamycin and vancomycin Enterococcus UTI - Sensitive only to Vancomycin - Patient started on Vancomycin (05/07) - Pharmacy to dose given kidney function - ID consulted; appreciate recs - Patient may need PICC line placement for outpatient antibiotics. Will await Reji recs. Pancytopenia - Likely 2/2 decompensated cirrhosis and liver failure Deconditioning - PT/OT consulted Code Status: full code, family to bring pt's Will to hospital DVT ppx: SCD's Diet: ADAT Dispo: Stable this AM. ID consulted. Transitioned to Vancomycin given blood and urine cultures. Addendum - Attending - Attending Attestation Date/Time: 05/07/19 0056 I personally evaluated the patient and discussed the management with Dr. Ornelas. I agree with the History, Examination, Assessment and Plan documented above with any addition or exceptions noted below. The patient's mentation is improved. H/H is stable. 2/2 blood cultures are positive and pt has positive urine culture. Will swap to vanc which is sensitive for both organisms. Consulting ID.
[2019-05-07] MEDS ORDERED: Vancomycin HCl 1.25 GM in Sodium Chloride 0.9% 250 ML 250 ML IVPB SCH ×2 (08:30→08:45)
[2019-05-07 08:37] LABS: Hemoglobin 7.7 g/dL (12.0-16.0); Mean Corpuscular HGB CONC 33.8 g/dL (32.0-36.0); Mean Corpuscular Hemoglobin 31.7 pg (27.0-31.0); Mean Corpuscular Volume 93.8 fL (78.0-98.0); Mean Platelet Volume 8.9 fL (7.4-10.4); Platelet Count 62 thou/uL (130-400); RBC Distribution Width 16.6 % (11.5-14.5); Red Blood Cell (RBC) Count 2.42 mill/uL (4.20-5.40); White Blood Cell (WBC) Count 3.1 thou/uL (4.8-10.8)
[2019-05-07 08:49] LABS: ALT (SGPT) 63 U/L (8-55); AST (SGOT) 122 U/L (5-34); Albumin 2.4 g/dL (3.5-5.0); Alkaline Phosphatase 83 U/L (40-150); Anion Gap 11 mmol/L (10-20); BUN (Urea Nitrogen) 39 mg/dL (9.8-20.1); Bilirubin, Total 2.2 mg/dL (0.2-1.2); Calc. Creatinine Clearance 45 mL/min (70-130); Carbon Dioxide 18 mmol/L (22-29); Chloride 111 mmol/L (98-107); Estimated GFR-MDRD 29; Globulin 1.9 g/dL (2.4-3.5); Glucose 197 mg/dL (70-105); Potassium 3.3 mmol/L (3.5-5.1); Protein, Total 4.3 g/dL (6.0-8.3); Sodium 137 mmol/L (136-145)
[2019-05-07] MEDS: Furosemide 40 MG TAB PO SCH (08:52)
[2019-05-07] MEDS: busPIRone HCl 10 MG TAB PO SCH ×2 (08:52→20:36)
[2019-05-07] MEDS: Magnesium Oxide 250 MG TAB PO SCH (08:52)
[2019-05-07] MEDS: Cyanocobalamin (Vitamin B-12) 1,000 MCG TAB PO SCH (08:53)
[2019-05-07] MEDS: Rifaximin 550 MG TAB PO SCH ×2 (08:53→20:35)
[2019-05-07] MEDS: Loratadine 10 MG TAB PO SCH (08:53)
[2019-05-07] MEDS: Ferrous Sulfate 325 MG TAB PO SCH ×3 (08:53→20:36)
[2019-05-07] MEDS: Folic Acid 1 MG TAB PO SCH (08:53)
[2019-05-07 09:16] LABS: Anisocytosis SLIGHT = 6-15 cells (100X) (0-5/hpf); Eosinophils 10 % (0-10); Lymphocytes 7 % (21-51); MDiff Complete? YES; Monocytes 22 % (0-10); Neutrophil 61 % (42-75); Nucleated RBC 2 % (0); Platelet Morphology Comment Appears Decreased; Polychromasia SLIGHT = 2-3 cells (100X) (0-2/hpf)
[2019-05-07] MEDS: Pantoprazole 80 MG in Sodium Chloride 0.9% 100 ML IVP SCH ×2 (09:20→20:35)
[2019-05-07] MEDS: Midodrine HCl 5 MG TAB PO SCH ×3 (09:45→17:12)
[2019-05-07] MEDS: Spironolactone 100 MG TAB PO SCH ×2 (09:46→20:35)
--- NOTE | 2019-05-07 11:18 | PRG ---
DATE OF SERVICE: 05/07/2019 SUBJECTIVE: The patient is doing better. She is complaining of some diarrhea as probably induced by the lactulose. OBJECTIVE: VITAL SIGNS: On exam, temperature is 97.4, pulse 89, blood pressure 104/50, and O2 saturation 100%. A 24-hour intake 4628, output 207 plus. HEENT: Unremarkable. NECK: No adenopathy or JVD. CHEST: Clear. CARDIAC: S1 and S2. Regular. ABDOMEN: Soft. EXTREMITIES: Jaundiced. LABORATORY DATA: White blood cell count 3.1, hematocrit 22.7, and platelet count 62. Sodium 137, potassium 3.3, chloride 111, CO2 of 18, BUN 39, creatinine 1.8, glucose 197, and total bilirubin is 2.2. ASSESSMENT: 1. Gastrointestinal bleeding from ulcer. 2. Cirrhosis. 3. Resolved hepatic encephalopathy. 4. Metabolic acidosis, which is better. PLAN: The patient can transfer out to the medical floor from my standpoint if cleared by GI. Job ID: [id number]
[2019-05-07] MEDS ORDERED: Clindamycin/D5W 600 MG in Premix Bag 1 BAG IVPB SCH (12:00)
--- NOTE | 2019-05-07 14:37 | CON ---
DATE OF CONSULTATION: 05/07/2019 REASON FOR CONSULTATION: Bacteremia. HISTORY OF PRESENT ILLNESS: A 53-year-old patient with history of liver cirrhosis secondary to former alcoholism, who happens to be in a transplant list in [place]. She has had variceal bleeding and has had a Monique catheter placed in the right IJ position due to her frequent admissions and problems with venous access in the past. The Monique catheter had been placed in [place] as well. At this time, she was brought in by because of altered mental status. There had been no reported fever, but she did have chills. In the emergency room, she was found to be severely anemic and she was admitted, received transfusions of packed red blood cells and had an EGD, which did not reveal any active bleeding at that time. Octreotide was discontinued and proton pump inhibitor continued to be administered. Lactulose was restarted. She was given Rocephin and 2/2 sets of blood cultures were positive for Staphylococcus epidermidis. She also had some dysuria and positive urine cultures as noted below. Currently, she is awake, alert, and oriented. Denies headaches. No visual symptoms, sore throat, odynophagia, or dysphagia. No dyspnea or cough. No chest pain. No back pain. No symptoms at the site of the Monique catheter exit. The abdomen is mildly tender, mostly because of bladder distention. She does not report any difficulty with voiding in the past. PAST MEDICAL HISTORY: Liver cirrhosis due to alcoholism, hypertension, prior episode of spontaneous bacterial peritonitis treated in this hospital, GERD, type 2 diabetes. PAST SURGICAL HISTORY: TIPS procedure; Monique catheter placement in [place], she is in the transplant list there. FAMILY HISTORY: Noncontributory. SOCIAL HISTORY: Former smoker. History of alcoholism, which she is abstinent at this time. Lives with . CURRENT MEDICATIONS: 1. Proventil. 2. BuSpar. 3. Vitamin B12. 4. Flexeril. 5. Feosol. 6. Flonase. 7. Folvite. 8. Lasix. 9. Lactulose. 10. Claritin. 11. Melatonin. 12. Primatene. 13. Pantoprazole. 14. Rifaximin. 15. Vancomycin. PHYSICAL EXAMINATION: VITAL SIGNS: T-max 98.8, blood pressure 108/57, heart rate 93, respiratory rate 17, O2 saturation 100%. SKIN: Spider angiomata in the anterior chest. Monique catheter exit site appears normal. She does not have Noramn catheter. No peripheral IV access either. No lymphadenopathy. GENERAL: Chronically ill-appearing. No acute distress. HEENT: Ocular movements are conjugate. Sclerae are white. Pupils are equal. Oral cavity is normal. NECK: Supple. No jugular vein distention. LUNGS: Symmetric. Clear breath sounds. HEART: S1 and S2, regular rate without murmurs. ABDOMEN: Distended with ascites. Mildly tender, mostly due to bladder distention. EXTREMITIES: No joint inflammatory activity. Trace edema in the lower extremities. Pulses are 1+ in dorsalis pedis. Plantar responses are flexor. No clonus. NEUROLOGIC: No evidence of asterixis. Cognitive function appears to be intact. LABORATORY DATA: White cell count is 3.5 and 3.1; hemoglobin was 6.4, now is up to 8.3 and now 7.7 hemoglobin; platelets 62; 61% neutrophils. Creatinine was 1.39 and now 1.84. AST 119, ALT 53, alkaline phosphatase 93, albumin 2.7. Urinalysis 0 to 3 wbc's and microbiology with E. faecium in urine culture, Staph epidermidis, and 2 sets of blood cultures, those are logged as having been retrieved at the same time. IMAGING DATA: There is a brain CT, which is not remarkable and the chest x-ray with no infiltrates, maybe mild patchy, most likely due to vascular congestion. There is an abdominal ultrasound, which revealed a patent TIPS stent with normal directional flow and ascites. I do not have yet the results of the paracentesis. It is not clear that it was submitted for analysis. ASSESSMENT: 1. Alcoholism with liver cirrhosis, in the transplant list. 2. Altered mental status. 3. Chronic Monique catheter placed in [place] because of access problems and frequent admissions. 4. Anemia with no active bleeding noted. 5. Staphylococcus epidermidis bacteremia. 6. Positive urine cultures. DISCUSSION: The urine culture positivity may not be significant, although she did report dysuria, so I think it merits treatment of this for a short period of time, no more than 3 days. I would verify that she has proper emptying with postvoid residual urinary bladder ultrasound. Regarding the Staph epidermidis, it is possible if not likely colonization of the Monique catheter and I would advise a vancomycin lock solution for 2 weeks in an attempt to sterilize the catheter and try to avoid having to exchange it. The lock solution can be provided by pharmacy and it should be administered as part of the flush every time that the catheter is not in use and this is to be continued for 2 weeks. After that, then repeat blood cultures and see if there is still presence of bacteremia with one set obtained from the line and one from peripheral vein. Job ID: [id number]
--- NOTE | 2019-05-07 14:38 | PRG ---
DATE OF SERVICE: 05/07/2019 SUBJECTIVE: Ms. Gonzalez is feeling pretty well. Her mental status is clear. She is tolerating her diet, on fluid restriction. She was found to have an enterococcal UTI and also Staph epidermidis positivity on cultures. She continues on vancomycin. I understand that Infectious Disease consultation is pending. There has been no report of melena. Hemoglobin stabilized. OBJECTIVE: VITAL SIGNS: Temperature 98.0, heart rate 93, blood pressure 108/57, 100% oxygen saturation on room air. GENERAL: Mild jaundice. No acute distress. HEART: Regular rate and rhythm. LUNGS: Clear to auscultation bilaterally. ABDOMEN: Distended with ascites, but soft, nontender to palpation. EXTREMITIES: No peripheral edema. LABORATORY STUDIES: Hemoglobin stable at 7.7, WBC 3.1, platelets 62. Sodium 137, potassium 3.3, BUN 39, creatinine 1.84. Total bilirubin down to 2.2, alkaline phosphatase 83, AST 122, ALT 63. Urine culture showing Enterococcus faecium. Blood cultures showing Staphylococcus epidermidis. ASSESSMENT/PLAN: 1. Hepatic encephalopathy, now essentially resolved. Continue with lactulose and rifaximin. 2. Chronic anemia. 3. Gastric antral vascular ectasias with antral ulcerations from prior treatment. 4. Severe portal hypertensive gastropathy. Continue the patient on twice daily PPI therapy, switch to oral upon hospital discharge. Anticipate she is going to continue to need periodic transfusions even on an outpatient basis due to slow chronic blood loss. 5. Acute kidney injury. Creatinine is down from yesterday. She is evidently having good urine output. 6. Enterococcal urinary tract infection. 7. Staph epidermidis positivity on blood cultures x2. I understand an Infectious Disease consultation is pending. 8. Ascites. The patient gets weekly paracentesis on an outpatient basis. No concern for SBP at this time. Job ID: [id number]
[2019-05-07] MEDS: Melatonin 3 MG TAB PO SCH (20:36)
[2019-05-08] MEDS: Lactated Ringer's 1,000 ML IV SCH ×2 (04:07→18:45)
[2019-05-08 05:08] LABS: ALT (SGPT) 52 U/L (8-55); AST (SGOT) 82 U/L (5-34); Albumin 2.3 g/dL (3.5-5.0); Alkaline Phosphatase 86 U/L (40-150); Anion Gap 10 mmol/L (10-20); BUN (Urea Nitrogen) 33 mg/dL (9.8-20.1); Bilirubin, Total 1.9 mg/dL (0.2-1.2); Calc. Creatinine Clearance 57 mL/min (70-130); Calcium 7.6 mg/dL (7.8-10.44); Carbon Dioxide 19 mmol/L (22-29); Chloride 110 mmol/L (98-107); Estimated GFR-MDRD 38; Globulin 1.8 g/dL (2.4-3.5); Glucose 139 mg/dL (70-105); Potassium 3.6 mmol/L (3.5-5.1); Protein, Total 4.1 g/dL (6.0-8.3); Sodium 135 mmol/L (136-145)
[2019-05-08 05:34] LABS: Band 3 % (5-11); Eosinophils 11 % (0-10); Hemoglobin 7.7 g/dL (12.0-16.0); Lymphocytes 30 % (21-51); MDiff Complete? YES; Mean Corpuscular HGB CONC 34.8 g/dL (32.0-36.0); Mean Corpuscular Hemoglobin 32.1 pg (27.0-31.0); Mean Corpuscular Volume 92.1 fL (78.0-98.0); Mean Platelet Volume 8.1 fL (7.4-10.4); Monocytes 8 % (0-10); Neutrophil 48 % (42-75); Nucleated RBC 1 % (0); Platelet Count 59 thou/uL (130-400); Platelet Morphology Comment Appears Decreased; RBC Distribution Width 16.5 % (11.5-14.5); Red Blood Cell (RBC) Count 2.41 mill/uL (4.20-5.40); White Blood Cell (WBC) Count 3.8 thou/uL (4.8-10.8)
--- NOTE | 2019-05-08 08:39 | PDOC.FM ---
- Subjective Subjective: The patient was alert and only complained of mild discomfort at the time of evaluation. She reported no overnight events other than displeasure of the amount of urine that she had passed secondary to fluid resuscitation. Her current complains include abdominal pain, which she states is her baseline and mild vaginal itching / dysuria. She denies any fevers, chills, chest pain or shortness of breath. - Objective Vital Signs & Weight: Vital Signs (12 hours) Temp Pulse Resp BP Pulse Ox 05/08/19 07:32 97 05/08/19 07:14 98.0 F 05/08/19 05:21 100 05/08/19 04:00 98.1 F 88 16 96/73 100 05/08/19 00:00 98.4 F 92 18 109/55 L 100 Weight Admit Weight 78.471 kg Weight 78.6 kg Most Recent Monitor Data Heart Rate from ECG 88 NIBP 109/62 NIBP BP-Mean 77 Respiration from ECG 16 SpO2 98 I&O: 05/07/19 05/08/19 05/09/19 06:59 06:59 06:59 Intake Total 4628.7 4415.2 Output Total 207 Balance 4421.7 4415.2 Result Diagrams: 05/08/19 04:20 05/08/19 04:20 Phys Exam - Physical Examination Constitutional: NAD HEENT: PERRLA, moist MMs, oral pharynx no lesions Mild scleral icterus. Neck: supple, full ROM Respiratory: no wheezing, no rales, no rhonchi, clear to auscultation bilateral Cardiovascular: RRR, no significant murmur, no rub Gastrointestinal: soft, positive bowel sounds Protuberant with hepatomegaly. No guarding, rebound tenderness or rigidity. Musculoskeletal: edema present Non-pitting edema in the LEs. Neurological: non-focal, moves all 4 limbs Psychiatric: normal affect, A&O x 3 Skin: cap refill <2 seconds Deviation from normal: Mild jaundice and diffuse ecchymoses. Dx/Plan (1) Hematemesis Code(s): K92.0 - HEMATEMESIS Status: Acute (2) Hepatic encephalopathy Code(s): K72.90 - HEPATIC FAILURE, UNSPECIFIED WITHOUT COMA Status: Acute (3) UTI (urinary tract infection) Status: Acute Qualifiers: Urinary tract infection type: acute cystitis Hematuria presence: without hematuria Qualified Code(s): N30.00 - Acute cystitis without hematuria (4) CKD (chronic kidney disease) stage 3, GFR 30-59 ml/min Code(s): N18.3 - CHRONIC KIDNEY DISEASE, STAGE 3 (MODERATE) Status: Chronic (5) Cirrhosis of liver with ascites Code(s): K74.60 - UNSPECIFIED CIRRHOSIS OF LIVER Status: Chronic Qualifiers: Hepatic cirrhosis type: unspecified hepatic cirrhosis Qualified Code(s): K74.60 - Unspecified cirrhosis of liver; R18.8 - Other ascites - Plan Plan: 1. Upper GI Bleed, resolved -BRB per mouth and black tarry stool on admission, Hb 6.2 -Dr. Neal (GI) consulted -EGD on 05/05/19 revealed Portal Hypertensive Gastropathy and Non-Bleeding Ulcerations in Gastric Antrum -No Varices, Octreotide DC'd per GI -Low concern for SBP - Rocephin DC'd 2. Acute on Chronic Blood Loss Anemia -2U of PRBC on 05/05/19 -Hg on 05/08/19 remained stable at 7.7 -Monitor and transfuse as needed 3. Acute Hepatic Encephalopathy, Improving -Most likely secondary to elevated ammonia levels (81) -Able to protect airway well and maintain oxygenation on room air -Continue close monitoring of vitals -Lactulose PO, 30 gm TID -A&O x3 this AM -Switch Lactulose to PO and assess ability to maintain medication regimen following discharge 4. Cirrhosis -Patient currently on Liver Transplant List -SP TIPS procedure -No Esophageal Varices -Paracentesis done 05/03/19 5. HTN -Hold home meds at this time 6. Hx of DM -Continue to monitor 7. CKD Stage 3 -GFR: 40 -Cr: 1.4 8. S. epidermidis Bacteremia -2/2 Blood Cultures positive -Sensitive to Clindamycin and Vancomycin 9. Enterococcus UTI -Sensitive only to Vancomycin -Patient started on Vancomycin (05/07) -Pharmacy to dose based on renal function -ID consulted; close coordination required -Assess ability to maintain antibiotic regiment following discharge, may require SNF placement 10. Pancytopenia - Lkely 2/2 decompensated Cirrhosis / Liver Failure 11. Deconditioning -PT/OT consulted -See #9 with regard to necessity of SNF placement Code Status: Full Code, family to bring pt's Will to hospital DVT Prophylaxis: SCDs Diet: ADAT Dispo: Stable this AM. Coordinating closely with ID. - transitioned to Vancomycin based on blood / urine culture sensitivities. 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 Transfer to Medical Floor based on Respiratory recommendations. Addendum - Attending - Attending Attestation Date/Time: 05/08/19 1112 I personally evaluated the patient and discussed the management with Dr. Bowman. I agree with the History, Examination, Assessment and Plan documented above with any addition or exceptions noted below. Patient doing much better than last time I saw her. Her mentation is near baseline, and she is tolerating Lactulose well. H/H overall stable, no evidence of recurrent bleeding. Renal function back to baseline. ID on board for her supposed bacteremia. Will need CM involvement for dispo. GI continues on board but overall everything stable at the current time.
[2019-05-08] MEDS: Pantoprazole 80 MG in Sodium Chloride 0.9% 100 ML IVP SCH (08:55)
[2019-05-08] MEDS: Cyanocobalamin (Vitamin B-12) 1,000 MCG TAB PO SCH (08:57)
[2019-05-08] MEDS: busPIRone HCl 10 MG TAB PO SCH ×2 (08:57→20:27)
[2019-05-08] MEDS: Rifaximin 550 MG TAB PO SCH ×2 (08:58→20:28)
[2019-05-08] MEDS: Furosemide 40 MG TAB PO SCH (08:58)
[2019-05-08] MEDS: Loratadine 10 MG TAB PO SCH (08:58)
[2019-05-08] MEDS: Folic Acid 1 MG TAB PO SCH (08:58)
[2019-05-08] MEDS: Ferrous Sulfate 325 MG TAB PO SCH ×3 (08:58→20:27)
[2019-05-08] MEDS: Midodrine HCl 5 MG TAB PO SCH ×3 (08:59→16:18)
[2019-05-08] MEDS ORDERED: Vancomycin HCl 1.25 GM in Sodium Chloride 0.9% 250 ML 250 ML IVPB SCH (09:00)
[2019-05-08] MEDS: Magnesium Oxide 250 MG TAB PO SCH (09:00)
[2019-05-08] MEDS: Spironolactone 100 MG TAB PO SCH (09:02)
--- NOTE | 2019-05-08 09:24 | PRG ---
DATE OF SERVICE: 05/08/2019 SUBJECTIVE: She is complaining of back pain. She has had less stools, I think the lactulose has been held. OBJECTIVE: VITAL SIGNS: Temperature 98.1, pulse 88, blood pressure 109/62, O2 saturations 98%. HEENT: Unremarkable. NECK: No JVD. CHEST: Clear. CARDIAC: S1 and S2, regular. ABDOMEN: Distended with some ascites. LABORATORY DATA: White blood cell count 3.8, hematocrit 22.2, and platelet count 59. Sodium 135, potassium 3.6, chloride 110, CO2 of 19, BUN 33, creatinine 1.4, and glucose 139. ASSESSMENT: 1. Resolved hepatic encephalopathy. 2. Status post gastrointestinal bleeding. PLAN: The patient can be transferred to the floor. There is no acute need for her to be in IMCU or CCU at this time. Job ID: [id number]
[2019-05-08 10:25] LABS: Vancomycin, Random 9.4 ug/mL (See Comment)
[2019-05-08] MEDS: Vancomycin HCl 1.25 GM in Sodium Chloride 0.9% 250 ML 250 ML IVPB SCH (11:26)
[2019-05-08] MEDS ORDERED: traMADol HCl 50 MG TAB PO PRN (11:35)
--- NOTE | 2019-05-08 19:18 | PRG ---
DATE OF SERVICE: 05/08/2019 SUBJECTIVE: Ms. Gonzalez is eating. She wonders if she needs a paracentesis. She has no edema in her legs since her TIPS was revised in [facility] a few months ago. As we found here, there was quite a bit of bleeding from gastric antral vascular ectasias. They tried to cauterize her more in [place] and also dilated her TIPS, which has decreased portal pressure, but unfortunately has worsened issues with hepatic encephalopathy as it is often does. PRESENT MEDICATIONS: 1. Albuterol. 2. BuSpar. 3. Vitamin B12. 4. Flexeril. 5. Feosol. 6. Folic acid. 7. Lactated Ringer's. 8. Lactulose 30 t.i.d. 9. Magnesium oxide 500 p.o. daily. 10. Melatonin. 11. Nitrate. 12. Midodrine 5 t.i.d. 13. Protonix drip. 14. Rifaximin. 15. Aldactone 100 b.i.d. 16. Vancomycin. 17. Furosemide 40 mg daily. PHYSICAL EXAMINATION: VITAL SIGNS: Temperature is 97.5, pulse is 85, blood pressure is 103/56, 92/54. GENERAL: She is nonicteric. LUNGS: Clear. HEART: Regular rate and rhythm without murmurs. ABDOMEN: Soft. Slight shifting dullness, fluid wave, but she is not tensed. EXTREMITIES: Reveal no edema. ASSESSMENT: 1. Fluid overload issues. Presently, she has non-tense ascites. She is needing midodrine to keep her pressure up and IV fluids to keep her pressure up. I would recommend stopping her Lasix and Aldactone at this point in time. 2. Staphylococcus epidermidis, possibly blood cultures, possibly colonizing her line. She is on antibiotics for this. 3. No signs of sepsis. 4. Creatinine is 1.44, down from 2.16 from 7th and 1.28 on the 6th and 1.39 on the 5th. There are some concerns for infection, some GI bleeding on this admission, hepatic encephalopathy. Again, the main concern here is we are going to make her hypotensive and hepatorenal with failure. She does not need diuretics right now. 5. Diarrhea. She is having 5 to 7 stools per day. The magnesium oxide does not help. She needs a lactulose for encephalopathy. I would stop the magnesium oxide. I decreased the magnesium. I decreased the lactulose to a goal of 2 to 3 bowel movements per day. Also to help her encephalopathy, I would stop the muscle relaxants and any sedatives. 6. She does not need a paracentesis. We will follow along with you. Job ID: [id number]
[2019-05-08] MEDS: Miconazole 100 mg Supp Box of 7 VAG SCH (20:27)
[2019-05-08] MEDS: Melatonin 3 MG TAB PO SCH (20:27)
[2019-05-09 04:39] LABS: ALT (SGPT) 44 U/L (8-55); AST (SGOT) 56 U/L (5-34); Albumin 2.3 g/dL (3.5-5.0); Alkaline Phosphatase 90 U/L (40-150); Anion Gap 11 mmol/L (10-20); BUN (Urea Nitrogen) 24 mg/dL (9.8-20.1); Band 1 % (5-11); Bilirubin, Total 1.6 mg/dL (0.2-1.2); Calc. Creatinine Clearance 67 mL/min (70-130); Calcium 7.6 mg/dL (7.8-10.44); Carbon Dioxide 19 mmol/L (22-29); Chloride 111 mmol/L (98-107); Eosinophils 1 % (0-10); Estimated GFR-MDRD 46; Globulin 1.8 g/dL (2.4-3.5); Glucose 195 mg/dL (70-105); Hypochromia SLIGHT = 6-15 cells (100X) (0-5/hpf); Lymphocytes 14 % (21-51); MDiff Complete? YES; Magnesium 1.5 mg/dL (1.6-2.6); Mean Corpuscular HGB CONC 34.9 g/dL (32.0-36.0); Mean Corpuscular Hemoglobin 32.5 pg (27.0-31.0); Mean Corpuscular Volume 93.3 fL (78.0-98.0); Monocytes 5 % (0-10); Neutrophil 79 % (42-75); Platelet Count 72 thou/uL (130-400); Platelet Morphology Comment Appears Decreased; Potassium 3.6 mmol/L (3.5-5.1); Protein, Total 4.1 g/dL (6.0-8.3); RBC Distribution Width 17.6 % (11.5-14.5); Red Blood Cell (RBC) Count 2.16 mill/uL (4.20-5.40); Sodium 137 mmol/L (136-145); White Blood Cell (WBC) Count 4.7 thou/uL (4.8-10.8)
--- NOTE | 2019-05-09 08:37 | PDOC.FM ---
Addendum entered and electronically signed by Kirill Bowman MD 05/09/19 10:18 : Patient was transfused 1 U pRBC due to Hg of 7. Addendum entered and electronically signed by Kirill Bowman MD 05/09/19 10:12 : Tramadol order was changed to 50 mg PO BID based on Child-Pederson Score of 9. Original Note: - Subjective Subjective: The patient was resting comfortably in her bed at the time of evaluation. She reported no overnight events, and denied any symptoms of headache, fevers, chills, chest pain, shortness of breath, abdominal pain or N/V/D. She admitted to some mild M/S soreness after participating in the walking program on 05/08/19, but was optimistic about continued ambulatory efforts. - Objective MAR Reviewed: Yes Vital Signs & Weight: Vital Signs (12 hours) Temp Pulse Ox 05/09/19 07:32 99.3 F 05/09/19 03:50 99.6 F 05/09/19 02:37 99 05/09/19 00:00 99.4 F Weight Admit Weight 78.471 kg Weight 87.226 kg Most Recent Monitor Data Heart Rate from ECG 88 NIBP 104/53 NIBP BP-Mean 70 Respiration from ECG 17 SpO2 100 I&O: 05/08/19 05/09/19 05/10/19 06:59 06:59 06:59 Intake Total 4415.2 2850 Output Total 1950 Balance 4415.2 900 Result Diagrams: 05/09/19 04:00 05/09/19 04:00 Phys Exam - Physical Examination Constitutional: NAD HEENT: PERRLA, moist MMs, oral pharynx no lesions Mild scleral icterus, bilaterally Neck: no nodes, supple, full ROM Respiratory: no wheezing, no rales, no rhonchi, clear to auscultation bilateral Cardiovascular: RRR, no significant murmur, no rub Gastrointestinal: soft, non-tender, positive bowel sounds Abdominal distention w/o TTP, guarding or rigidity Musculoskeletal: no edema, pulses present Neurological: non-focal, normal sensation, moves all 4 limbs Lymphatic: no nodes Psychiatric: normal affect Skin: no rash, normal turgor Dx/Plan (1) Hematemesis Code(s): K92.0 - HEMATEMESIS Status: Acute (2) Hepatic encephalopathy Code(s): K72.90 - HEPATIC FAILURE, UNSPECIFIED WITHOUT COMA Status: Acute (3) UTI (urinary tract infection) Status: Acute Qualifiers: Urinary tract infection type: acute cystitis Hematuria presence: without hematuria Qualified Code(s): N30.00 - Acute cystitis without hematuria (4) CKD (chronic kidney disease) stage 3, GFR 30-59 ml/min Code(s): N18.3 - CHRONIC KIDNEY DISEASE, STAGE 3 (MODERATE) Status: Chronic (5) Cirrhosis of liver with ascites Code(s): K74.60 - UNSPECIFIED CIRRHOSIS OF LIVER Status: Chronic Qualifiers: Hepatic cirrhosis type: unspecified hepatic cirrhosis Qualified Code(s): K74.60 - Unspecified cirrhosis of liver; R18.8 - Other ascites - Plan Plan: 1. Upper GI Bleed, resolved -BRB per mouth and black tarry stool on admission, Hg 6.2 -Sharmaine Gutierrez (GI) consulted -EGD on 05/05/19 revealed Portal Hypertensive Gastropathy and Non-Bleeding Ulcerations in Gastric Antrum -No Varices, Octreotide DC'd per GI -Low concern for SBP - Rocephin DC'd 2. Acute on Chronic Blood Loss Anemia -2U of PRBC on 05/05/19 -Hg on 05/09/19 remained stable at 7 -Monitor and transfuse as needed 3. Acute Hepatic Encephalopathy, Resolved -Most likely secondary to elevated ammonia levels (81) -Able to protect airway well and maintain oxygenation on room air -Continue close monitoring of vitals -Lactulose PO, 30 gm TID 4. Cirrhosis -Patient currently on Liver Transplant List -SP TIPS procedure -No Esophageal Varices -Paracentesis done 05/03/19 5. HTN -BP 100/51 on 05/09/19 -Hold home meds at this time 6. Hx of DM -Continue to monitor 7. CKD Stage 3 -GFR: 40 -Cr: 1.2, trending down 8. S. epidermidis Bacteremia -2/2 Blood Cultures positive -Sensitive to Clindamycin and Vancomycin 9. Enterococcus UTI -Sensitive only to Vancomycin -Patient started on Vancomycin (05/07) -Pharmacy to dose based on renal function -ID consulted; close coordination required -Assess ability to maintain antibiotic regiment following discharge, may require SNF placement 10. Pancytopenia - Lkely 2/2 decompensated Cirrhosis / Liver Failure 11. Deconditioning -PT/OT consulted -Continue to encourage ambulation -See #9 with regard to necessity of SNF placement Code Status: Full Code, family to bring pt's Will to hospital DVT Prophylaxis: SCDs Diet: ADAT Dispo: Stable this AM. Coordinating closely with ID - transitioned to Vancomycin based on blood / urine culture sensitivities, with a recent Vancomycin trough of 9.4. 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 Transfer to Medical Floor based on Respiratory recommendations and bed availability. Addendum - Attending - Attending Attestation Date/Time: 05/09/19 8726 I personally evaluated the patient and discussed the management with Dr. Bowman. I agree with the History, Examination, Assessment and Plan documented above with any addition or exceptions noted below. Patient here for acute hepatic encephalopathy in the setting of upper GI bleed from portal gastropathy and vascular ectasia in the gastric mucosa. Her H/H has downtrended somewhat and she warrants 1 unit of blood. Other labs overall stable. Her renal function remains stable. She is back on Lactulose and Rifaximin. She is getting Vanc and Vanc flushes for possible staph bacteremia and chronic catheter infection/colonization. ID on board. Working to set up her needs in the outpatient setting. Stable for medical floor at this time. Need to avoid substances that can caused altered mentation in her as she is high risk for AMS and delirium.
--- NOTE | 2019-05-09 09:22 | PRG ---
DATE OF SERVICE: 05/09/2019 SUBJECTIVE: The patient remains in the IMCU. There have been no acute changes overnight. She has no complaints. OBJECTIVE: VITAL SIGNS: Temperature 99.3, pulse 78, blood pressure 104/53. HEENT: Unremarkable. NECK: No JVD. LUNGS: Clear. CARDIAC: S1 and S2. Regular. ABDOMEN: Distended, but soft. EXTREMITIES: No edema. LABORATORY DATA: White blood cell count 4.7, hematocrit 20.2, and platelet count 72. Sodium 137, potassium 3.6, chloride 111, CO2 of 19, BUN 24, creatinine 1.2, glucose 195. ASSESSMENT: 1. Status post gastrointestinal bleeding. Of note, this patient's H and H continued to slowly go back down. 2. Resolved hepatic encephalopathy. PLAN: You might consider transfusing her again prior to discharge. I do not think she needs to remain in the IMCU. No further recommendations at this time. Job ID: [id number]
[2019-05-09] MEDS: Folic Acid 1 MG TAB PO SCH (09:48)
[2019-05-09] MEDS: Cyanocobalamin (Vitamin B-12) 1,000 MCG TAB PO SCH (09:48)
[2019-05-09] MEDS: Midodrine HCl 5 MG TAB PO SCH ×3 (09:48→16:23)
[2019-05-09] MEDS: Ferrous Sulfate 325 MG TAB PO SCH ×3 (09:48→20:38)
[2019-05-09] MEDS: Rifaximin 550 MG TAB PO SCH ×2 (09:49→20:38)
[2019-05-09] MEDS: Lactated Ringer's 1,000 ML IV SCH (09:49)
[2019-05-09] MEDS: Loratadine 10 MG TAB PO SCH (09:49)
[2019-05-09] MEDS: busPIRone HCl 10 MG TAB PO SCH ×2 (09:50→20:37)
[2019-05-09] MEDS: Vancomycin HCl 1.25 GM in Sodium Chloride 0.9% 250 ML 250 ML IVPB SCH (10:50)
[2019-05-09] MEDS ORDERED: Spironolactone 100 MG TAB PO SCH (12:45)
--- NOTE | 2019-05-09 13:02 | PRG ---
DATE OF SERVICE: 05/09/2019 SUBJECTIVE: Jesse Gonzalez is complaining of cough today. She has had a little bit of scant rectal bleeding. OBJECTIVE: VITAL SIGNS: Her temperature is 99 to 98.8, heart rate 87, and blood pressure 104/53. LUNGS: Decreased breath sounds at the bases. HEART: Regular rate and rhythm. ABDOMEN: Protuberant with shifting dullness and fluid wave. It is nontender. EXTREMITIES: No clubbing, cyanosis, or edema. LABORATORY DATA: White count is 4.7, hemoglobin is 7, and platelet count is 79,000. Sodium 137, potassium 3.6, BUN and creatinine 24 and 1.24, magnesium 1.5, bilirubin was 1.6, AST 56, and ALT 44. ASSESSMENT: 1. Cirrhosis, alcohol and vyt-ghlehos-osicyho cirrhosis. 2. Complications of severe portal hypertension with refractory ascites and severe portal gastropathy with ongoing need for blood transfusions and multiple endoscopies over the last couple years. This has been treated with the TIPS; however, the complications of this have been tended to include or close down and not work effectively and when it is open fully, she has had encephalopathy issues. 3. Chronic anemia and slow bleeding, secondary to severe portal gastropathy. We have not been able to successfully do of this here or at her liver Transplant Center in [place]. 4. For clarification, the patient is not on a transplant list if she was, she should have already been transferred to her transplant facility. RECOMMENDATIONS: 1. Stop IV fluids. 2. Resume diuretics. Advance diet. Hopefully, she will go home in 1 to 2 days. Job ID: [id number]
[2019-05-09] MEDS: Melatonin 3 MG TAB PO SCH (20:37)
[2019-05-09] MEDS: traMADol HCl 50 MG TAB PO SCH (20:38)
[2019-05-09] MEDS: Miconazole 100 mg Supp Box of 7 VAG SCH (20:39)
[2019-05-10 06:05] LABS: #Eosinphils 1.2 thou/uL (0.0-0.7); #Lymphocytes 1.6 thou/uL (1.20-3.40); #Monocytes 1.1 thou/uL (0.11-0.59); #Neutrophils 5.5 thou/uL (1.40-6.50); %Basophils 0.4 % (0.0-1.0); %Eosinophils 12.7 % (0.0-10.0); %Lymphocytes 16.8 % (21.0-51.0); %Monocytes 11.3 % (0.0-10.0); %Neutrophils 58.7 % (42.0-75.0); Hemoglobin 9.5 g/dL (12.0-16.0); Mean Corpuscular HGB CONC 34.1 g/dL (32.0-36.0); Mean Corpuscular Hemoglobin 31.7 pg (27.0-31.0); Mean Corpuscular Volume 93.1 fL (78.0-98.0); Mean Platelet Volume 8.1 fL (7.4-10.4); Platelet Count 101 thou/uL (130-400); RBC Distribution Width 17.8 % (11.5-14.5); Red Blood Cell (RBC) Count 2.98 mill/uL (4.20-5.40); White Blood Cell (WBC) Count 9.3 thou/uL (4.8-10.8)
[2019-05-10 06:15] LABS: ALT (SGPT) 42 U/L (8-55); AST (SGOT) 53 U/L (5-34); Albumin 2.6 g/dL (3.5-5.0); Alkaline Phosphatase 106 U/L (40-150); Anion Gap 11 mmol/L (10-20); BUN (Urea Nitrogen) 19 mg/dL (9.8-20.1); Calc. Creatinine Clearance 86 mL/min (70-130); Carbon Dioxide 19 mmol/L (22-29); Chloride 110 mmol/L (98-107); Estimated GFR-MDRD 53; Globulin 2.3 g/dL (2.4-3.5); Glucose 130 mg/dL (70-105); Potassium 4.2 mmol/L (3.5-5.1); Protein, Total 4.9 g/dL (6.0-8.3); Sodium 136 mmol/L (136-145)
[2019-05-10] MEDS ORDERED: Furosemide 40 MG TAB PO SCH (07:30)
[2019-05-10] MEDS: busPIRone HCl 10 MG TAB PO SCH ×2 (07:56→21:09)
[2019-05-10] MEDS: Midodrine HCl 5 MG TAB PO SCH ×3 (07:56→17:03)
[2019-05-10] MEDS: traMADol HCl 50 MG TAB PO SCH ×2 (07:57→21:09)
[2019-05-10] MEDS: Cyanocobalamin (Vitamin B-12) 1,000 MCG TAB PO SCH (07:58)
[2019-05-10] MEDS: Loratadine 10 MG TAB PO SCH (07:58)
[2019-05-10] MEDS: Folic Acid 1 MG TAB PO SCH (07:58)
[2019-05-10] MEDS: Ferrous Sulfate 325 MG TAB PO SCH ×3 (07:58→21:09)
[2019-05-10] MEDS: Rifaximin 550 MG TAB PO SCH ×2 (07:59→21:10)
--- NOTE | 2019-05-10 08:11 | PDOC.FM ---
- Subjective Subjective: Mrs. Gonzalez was ambulating to her bed from the bathroom at the time of evaluation. She denied any complaints overnight, stating that she slept well. She also denied any fevers, headaches, chest pains, abdominal pains or difficulty with voiding and stooling. She remains optimistic about the improvements of her overall health and desires to be DC'd home in the near future. - Objective Vital Signs & Weight: Vital Signs (12 hours) Temp Pulse Resp BP Pulse Ox 05/10/19 08:00 97.9 F 90 22 H 102/52 L 100 05/10/19 04:25 98.0 F 86 20 106/62 99 05/09/19 23:48 98.2 F 89 20 104/67 97 Weight Admit Weight 78.471 kg Weight 88.677 kg Most Recent Monitor Data Heart Rate from ECG 88 NIBP 116/76 NIBP BP-Mean 89 Respiration from ECG 18 SpO2 100 I&O: 05/09/19 05/10/19 05/11/19 06:59 06:59 06:59 Intake Total 2850 350 Output Total 1950 Balance 900 350 Result Diagrams: 05/10/19 04:52 05/10/19 04:52 Phys Exam - Physical Examination Constitutional: NAD HEENT: PERRLA, moist MMs, oral pharynx no lesions Mild scleral icterus Neck: no nodes, supple, full ROM Respiratory: no wheezing, no rales, no rhonchi, clear to auscultation bilateral Cardiovascular: RRR, no significant murmur, no rub Gastrointestinal: soft, non-tender, positive bowel sounds Protuberant abdomen w/ ascites Musculoskeletal: edema present (+2 pitting edema to the mid-prado, bilaterally) Neurological: non-focal, moves all 4 limbs Lymphatic: no nodes Psychiatric: normal affect Skin: no rash Dx/Plan (1) Hematemesis Code(s): K92.0 - HEMATEMESIS Status: Acute (2) Hepatic encephalopathy Code(s): K72.90 - HEPATIC FAILURE, UNSPECIFIED WITHOUT COMA Status: Acute (3) UTI (urinary tract infection) Status: Acute Qualifiers: Urinary tract infection type: acute cystitis Hematuria presence: without hematuria Qualified Code(s): N30.00 - Acute cystitis without hematuria (4) CKD (chronic kidney disease) stage 3, GFR 30-59 ml/min Code(s): N18.3 - CHRONIC KIDNEY DISEASE, STAGE 3 (MODERATE) Status: Chronic (5) Cirrhosis of liver with ascites Code(s): K74.60 - UNSPECIFIED CIRRHOSIS OF LIVER Status: Chronic Qualifiers: Hepatic cirrhosis type: unspecified hepatic cirrhosis Qualified Code(s): K74.60 - Unspecified cirrhosis of liver; R18.8 - Other ascites - Plan Plan: 1. Upper GI Bleed, resolved -BRB per mouth and black tarry stool on admission, Hg 6.2 -Sharmaine Gutierrez (GI) consulted -EGD on 05/05/19 revealed Portal Hypertensive Gastropathy and Non-Bleeding Ulcerations in Gastric Antrum -No Varices, Octreotide DC'd per GI -Low concern for SBP - Rocephin DC'd 2. Acute on Chronic Blood Loss Anemia -2U of pRBC on 05/05/19 -1U of pRBC on 05/09/19 -Hg on 05/10/19 improved significantly to 9.5 -Continue to monitor and transfuse as needed 3. Acute Hepatic Encephalopathy, Resolved -Most likely secondary to elevated ammonia levels (81) -Able to protect airway well and maintain oxygenation on room air -Continue close monitoring of vitals -Lactulose PO, 30 gm TID 4. Cirrhosis -Patient currently awaiting information on Liver Transplant List placement in [place], [place] -SP TIPS procedure -No Esophageal Varices -Paracentesis done 05/03/19 -Consider additional paracentesis prior to DC 5. HTN -BP 102/52 on 05/10/19 -Fluid DC'd and home medication regimen restarted, per Dr. Schmid (GI) 6. Hx of DM -Continue to monitor 7. CKD Stage 3 -GFR: 40 -Cr: 1.1, continuing to trend down 8. S. epidermidis Bacteremia -2/2 Blood Cultures positive -Sensitive to Clindamycin and Vancomycin 9. Enterococcus UTI -Sensitive only to Vancomycin -Patient started on Vancomycin (05/07) -Pharmacy to dose based on renal function -ID consulted; close coordination required -PT recommended DC to home rather than SNF placement -Patient remains confident in ability to maintain antibiotic regiment on an OP status from home 10. Pancytopenia - Likely 2/2 decompensated Cirrhosis / Liver Failure 11. Deconditioning -PT/OT consulted -Continue to encourage ambulation -See #9 with regard to necessity of SNF placement Code Status: Full Code, family to bring pt's Will to hospital DVT Prophylaxis: SCDs Diet: ADAT Dispo: Patient's overall health continues to improve - anticipate DC in <48H. Reengage with Dr. Mendoza (ID) to verify Vancomycin regimen duration after discharge. Reengage with Dr. Schmid (GI) and consider therapeutic paracentesis prior to DC.
[2019-05-10 10:40] LABS: Vancomycin, Trough 13.5 ug/mL
--- NOTE | 2019-05-10 10:41 | PRG ---
DATE OF SERVICE: 05/10/2019 Ms. Gonzalez is a 53-year-old white female with a history of cirrhosis, both alcohol and nonalcohol related. She also has a severe portal gastropathy that resulted in chronic slow bleeding and chronic anemia. She has already been seen by our GI Service and we appreciate their input. She has had a TIPS procedure and is followed at the Transplant Center in [place], [place]. She is nearing time for discharge probably later today. Job ID: [id number]
[2019-05-10] MEDS: Vancomycin HCl 1.5 GM in Sodium Chloride 0.9% 250 ML 300 ML IVPB SCH (11:28)
[2019-05-10] MEDS: Vancomycin HCl 50 MG, Sodium Chloride 0.9% 10 ML in Syringe 1 ML CATH SCH (17:04)
--- NOTE | 2019-05-10 18:33 | PRG ---
DATE OF SERVICE: 05/10/2019 SUBJECTIVE: Ms. Gonzalez smoke. She states she is not smoking. MEDICATIONS: 1. Albuterol. 2. BuSpar. 3. B12. 4. Ferrous sulfate. 5. Folic acid. 6. Furosemide 40 mg q.a.m. 7. Lactulose b.i.d. 8. Claritin. 9. Melatonin. 10. Monistat p.r.n. 11. Midodrine 5 mg t.i.d. 12. Zofran. 13. Pantoprazole. 14. Rifaximin. 15. Tramadol. 16. Vancomycin. PHYSICAL EXAMINATION: GENERAL: She is resting comfortably in bed. VITAL SIGNS: Temperature is 98, pulse is 72, blood pressure 102/52 to 106/62. ABDOMEN: Soft, protuberant, shifting dullness, fluid wave, it is not tensed, EXTREMITIES: 1+ edema. She has no asterixis. LABORATORY DATA: White count 9.3, hemoglobin 9.5, and platelet count 101. Sodium 134, potassium 4.2, BUN and creatinine are 19 and 1.98. ASSESSMENT: 1. Portal hypertensive gastropathy, severe. She has been treated with argon plasma coagulations multiple times without much improvement. She has had a transjugular intrahepatic portosystemic shunt with some improvement. She tends to still need to be transfused intermittently. 2. Renal failure on admission, resolved. 3. No evidence of spontaneous bacterial peritonitis on admission. 4. Refractory ascites, improved with transjugular intrahepatic portosystemic shunt. 5. Hepatic encephalopathy on admission, resolved. 6. Possible infection or colonization of her Monique catheter, on treatment. RECOMMENDATIONS: 1. 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 Her liver function continues to worsen, and without transplant, her mortality is quite high in the next 6 to 12 months. 2. Continue PPI therapy. 3. We will go back to full dose of Aldactone and Lasix of 100 mg p.o. b.i.d. and 40 mg p.o. b.i.d. respectively. 4. I think she should be able to go home, she can follow up in our office in 1 week. Job ID: [id number]
[2019-05-10] MEDS: Spironolactone 100 MG TAB PO SCH (21:09)
[2019-05-10] MEDS: Melatonin 3 MG TAB PO SCH (21:10)
[2019-05-10] MEDS: Furosemide 40 MG TAB PO SCH (21:10)
[2019-05-10] MEDS: Miconazole 100 mg Supp Box of 7 VAG SCH (21:13)
[2019-05-11 04:57] LABS: #Basophils 0.1 thou/uL (0.0-0.2); #Eosinphils 1.2 thou/uL (0.0-0.7); #Lymphocytes 1.7 thou/uL (1.20-3.40); #Monocytes 1.4 thou/uL (0.11-0.59); %Basophils 0.9 % (0.0-1.0); %Eosinophils 11.1 % (0.0-10.0); %Lymphocytes 16.7 % (21.0-51.0); %Monocytes 13.1 % (0.0-10.0); %Neutrophils 58.1 % (42.0-75.0); Hemoglobin 9.7 g/dL (12.0-16.0); Mean Corpuscular HGB CONC 32.9 g/dL (32.0-36.0); Mean Corpuscular Hemoglobin 30.9 pg (27.0-31.0); Mean Platelet Volume 7.5 fL (7.4-10.4); Platelet Count 117 thou/uL (130-400); RBC Distribution Width 17.8 % (11.5-14.5); Red Blood Cell (RBC) Count 3.14 mill/uL (4.20-5.40); White Blood Cell (WBC) Count 10.3 thou/uL (4.8-10.8)
[2019-05-11 05:18] LABS: ALT (SGPT) 36 U/L (8-55); AST (SGOT) 45 U/L (5-34); Albumin 2.6 g/dL (3.5-5.0); Alkaline Phosphatase 107 U/L (40-150); Anion Gap 11 mmol/L (10-20); BUN (Urea Nitrogen) 18 mg/dL (9.8-20.1); Bilirubin, Total 1.6 mg/dL (0.2-1.2); Calc. Creatinine Clearance 87 mL/min (70-130); Calcium 8.1 mg/dL (7.8-10.44); Carbon Dioxide 19 mmol/L (22-29); Chloride 109 mmol/L (98-107); Estimated GFR-MDRD 54; Globulin 2.4 g/dL (2.4-3.5); Glucose 116 mg/dL (70-105); Potassium 3.8 mmol/L (3.5-5.1); Sodium 135 mmol/L (136-145)
--- NOTE | 2019-05-11 05:43 | PDOC.FM ---
- Subjective Subjective: The patient was resting peacefully at the time of evaluation, but was easily arousable. She reported no overnight events, and stated that she felt well. The patient denied any headaches, chest pain, shortness of breath or abdominal pain , and had no difficulty voiding or stooling. - Objective Vital Signs & Weight: Vital Signs (12 hours) Temp Pulse Resp BP Pulse Ox 05/10/19 20:00 97 05/10/19 19:34 97.9 F 91 20 102/55 L 97 Weight Admit Weight 78.471 kg Weight 88.677 kg Most Recent Monitor Data Heart Rate from ECG 88 NIBP 116/76 NIBP BP-Mean 89 Respiration from ECG 18 SpO2 100 I&O: 05/09/19 05/10/19 05/11/19 06:59 06:59 06:59 Intake Total 2850 350 Output Total 1950 Balance 900 350 Result Diagrams: 05/11/19 04:16 05/11/19 04:16 Phys Exam - Physical Examination Constitutional: NAD HEENT: PERRLA, moist MMs, oral pharynx no lesions Mild scleral icterus Neck: no nodes, supple, full ROM Respiratory: no wheezing, no rales, no rhonchi, clear to auscultation bilateral Cardiovascular: RRR, no significant murmur, no rub Gastrointestinal: soft, non-tender, positive bowel sounds Protuberant abdomen w/o TTP, guarding or rigidity Musculoskeletal: pulses present +1 pitting edema to the mid-prado, bilaterally - improved from yesterday Neurological: non-focal, moves all 4 limbs Lymphatic: no nodes Psychiatric: normal affect Skin: normal turgor Deviation from normal: Mild jaundice Dx/Plan (1) Hematemesis Code(s): K92.0 - HEMATEMESIS Status: Acute (2) Hepatic encephalopathy Code(s): K72.90 - HEPATIC FAILURE, UNSPECIFIED WITHOUT COMA Status: Acute (3) UTI (urinary tract infection) Status: Acute Qualifiers: Urinary tract infection type: acute cystitis Hematuria presence: without hematuria Qualified Code(s): N30.00 - Acute cystitis without hematuria (4) CKD (chronic kidney disease) stage 3, GFR 30-59 ml/min Code(s): N18.3 - CHRONIC KIDNEY DISEASE, STAGE 3 (MODERATE) Status: Chronic (5) Cirrhosis of liver with ascites Code(s): K74.60 - UNSPECIFIED CIRRHOSIS OF LIVER Status: Chronic Qualifiers: Hepatic cirrhosis type: unspecified hepatic cirrhosis Qualified Code(s): K74.60 - Unspecified cirrhosis of liver; R18.8 - Other ascites - Plan Plan: 1. Upper GI Bleed, resolved -BRB per mouth and black tarry stool on admission, Hg 6.2 -Sharmaine Gutierrez (GI) consulted -EGD on 05/05/19 revealed Portal Hypertensive Gastropathy and Non-Bleeding Ulcerations in Gastric Antrum -No Varices, Octreotide DC'd per GI -Low concern for SBP - Rocephin DC'd 2. Acute on Chronic Blood Loss Anemia -2U of pRBC on 05/05/19 -1U of pRBC on 05/09/19 -Hg on 05/11/19 improved significantly to 9.7 -Additional transfusion not required prior to DC 3. Acute Hepatic Encephalopathy, Resolved -Most likely secondary to elevated ammonia levels (81) -Able to protect airway well and maintain O2 on room air -Continue close monitoring of vitals -Lactulose PO, 30 gm TID -Resume home medication regimen after DC 4. Cirrhosis -Patient currently awaiting information placement Liver Transplant List in [place], [place] (Tentative Notification: 05/17/19) -SP TIPS procedure -No esophageal varices -Paracentesis done 05/03/19 -Per GI, paracentesis not required preior to DC 5. HTN -BP 102/55 on 05/11/19 - stable -Resume home medication regimen after DC 6. Hx of DM -POC Glucose: 116 -Resume home medication regimen after DC 7. CKD Stage 3 -GFR: 40 -Cr: 1.1, continuing to trend down -Avoid nephrotoxic medications after DC 8. S. epidermidis Bacteremia -2/2 Blood Cultures positive -Sensitive to Clindamycin and Vancomycin -Expected completion of 7 day regimen of vancomycin - 05/11/19, per Dr. Mendoza (ID ) recommendation 9. Enterococcus UTI -Sensitive only to Vancomycin -Patient started on Vancomycin (05/05) -Pharmacy to dose based on renal function -ID consulted; close coordination required -PT recommended DC to home rather than SNF placement -Patient remains confident in ability to maintain antibiotic regiment on an OP status from home -Expected completion of 7 day regimen of vancomycin - 05/11/19, per Dr. Mendoza (ID ) recommendation 10. Pancytopenia - Likely 2/2 decompensated Cirrhosis / Liver Failure 11. Deconditioning -PT/OT consulted -Continue to encourage ambulation -See #9 with regard to necessity of SNF placement Code Status: Full Code DVT Prophylaxis: SCDs Diet: ADAT Dispo: Patient's overall health has improved greatly since admission - anticipate DC later this afternoon. Expect completion of 7 day regimen of vancomycin today prior to DC. Due to Monique catheter colonization, patient will require daily vancomycin flushes of port from Oncology on an outpatient basis for 7 days. Follow-up with Dr. Mendoza (ID) in 7 days, and Dr. Schmid (GI) on 05/22/19.
[2019-05-11] MEDS: Folic Acid 1 MG TAB PO SCH (08:36)
[2019-05-11] MEDS: Rifaximin 550 MG TAB PO SCH (08:36)
[2019-05-11] MEDS: Furosemide 40 MG TAB PO SCH (08:36)
[2019-05-11] MEDS: Spironolactone 100 MG TAB PO SCH (08:36)
[2019-05-11] MEDS: Cyanocobalamin (Vitamin B-12) 1,000 MCG TAB PO SCH (08:36)
[2019-05-11] MEDS: Ferrous Sulfate 325 MG TAB PO SCH (08:36)
[2019-05-11] MEDS: Loratadine 10 MG TAB PO SCH (08:36)
[2019-05-11] MEDS: Midodrine HCl 5 MG TAB PO SCH ×2 (08:37→12:16)
[2019-05-11] MEDS: traMADol HCl 50 MG TAB PO SCH (08:37)
[2019-05-11] MEDS: busPIRone HCl 10 MG TAB PO SCH (08:37)
[2019-05-11] MEDS: Vancomycin HCl 1.5 GM in Sodium Chloride 0.9% 250 ML 300 ML IVPB SCH (10:41)
--- NOTE | 2019-05-11 11:42 | PRG ---
DATE OF SERVICE: 05/11/2019 Ms. Gonzalez continues to look and feel fine. She has completed her antibiotic therapy and will be discharged today. She has followup with GI. She will also follow up with the Transplant Team in [place]. Job ID: [id number]
[2019-05-11 12:20] VITALS: BP 109/69; TEMP 97.8
[2019-05-11] MEDS: Vancomycin HCl 50 MG, Sodium Chloride 0.9% 10 ML in Syringe 1 ML CATH SCH (13:09)
--- NOTE | 2019-05-12 10:18 | DIS ---
DATE OF ADMISSION: 05/05/2019 DATE OF DISCHARGE: 05/11/2019 RESIDENT: Dr. Kirill Bowman. CONSULTS: 1. Dr. Anibal Mendoza, Infectious Disease. 2. Dr. Marc Neal, GI. 3. Dr. Jessee Schmid, GI. PROCEDURES: 1. Brain CT. 2. EKG. 3. Chest x-ray. 4. Abdominal ultrasound. 5. EGD. PRIMARY DIAGNOSIS: Acute upper GI bleed secondary to hypertensive gastropathy, secondary to severe alcoholic cirrhosis, complicated by septicemia secondary to urinary tract infection and suspected cath port infection. SECONDARY DIAGNOSES: 1. Diabetes type 2. 2. Colitis. 3. Hypertension. 4. Acute on chronic kidney injury. 5. Tobacco abuse. 6. Depression. 7. Hyponatremia. 8. Esophageal varices. 9. Anemia. 10. Spinal stenosis. 11. Gastroesophageal reflux disease. 12. Asthma. 13. Spontaneous bacterial peritonitis, remote. 14. Hematemesis. 15. Portal hypertension. 16. Anxiety. 17. Hepatic encephalopathy. MEDICATIONS: Discharge medications; 1. Lasix 40 mg b.i.d. 2. Lactulose . 3. Spironolactone 100 mg b.i.d. 4. Miconazole vaginal suppository once daily for 5 additional days. Discontinued medications; 1. Buspirone 10 mg. 2. Albuterol sulfate 2 puffs. 3. Ferrous iron 65 mg. 4. Nasonex 2 sprays each nares. 5. Rifaximin 550 mg. 6. Melatonin 10 mg. 7. Vitamins B12, 2000 mcg. 8. Cyclobenzaprine 10 mg. 9. Folic acid 1 mg. 10. Midodrine 5 mg. 11. Tramadol 50 mg. 12. Loratadine 10 mg. HISTORY OF PRESENT ILLNESS AND HOSPITAL COURSE: Ms. Gonzalez is a 53-year-old female with an unfortunate past medical historysignificant for cirrhosis requiring hopeful placement in a liver transplant program, requiring sporadic blood transfusion, presented to the ED because her found her to be vomiting blood. Upon admission to the ED, she was given 2 units of packed red blood cells. EGD performed by GI found that she had multiple ulcers in her stomach that had been previously ablated. Additionally, she had hypertensive gastropathy secondary to portal hypertension secondary to her cirrhosis. During her stay in the hospital, she was also found to have 2 cultures positive for Staphylococcus epidermidis from the venous blood sources as well as 2 urine cultures positive for enterococcus. Due to the fact that she has a chronic Monique catheter placed, she also developed complications with a colonized Monique catheter requiring extensive antibiotic coverage. Throughout her hospital stay, her acute encephalopathic disorientation improved greatly as did her vital signs. Ultimately, she received 3 units of packed red cells. Her blood pressure remained at about 100 systolic, which according to GI consults with experience with her case was normal for her. The brain CT showed no acute findings. EKG showed sinus tachycardia at the time of presentation, but was otherwise read as normal by the ED physician. Chest x-ray revealed borderline pulmonary vascular congestion. Abdominal ultrasound revealed extensive ascites with a normal sized spleen without focal lesions and normal pancreas, a TIPS stent that was patent with normal directional flow. Hepatic and portal veins with normal waveforms and normal directional flow. Bile ducts with no intrahepatic or extrahepatic biliary dilations. Gallbladder was absent. As stated, the patient's altered mental status secondary to hepatic encephalopathy ultimately stabilized during her hospital stay. Her fluid levels were improved with Lactated Ringer's as well as 3 units of packed red blood cells on discharge. Her hemoglobin was 9.7, hematocrit 29.5, white blood cell count was 10.3, platelet count 117 greatly improved from previous as low as 62. DISPOSITION: Guarded due to chronic medical conditions. DISCHARGE INSTRUCTIONS: 1. Location: Home. 2. Diet: Heart healthy and/or carb conscious. 3. Activity: As tolerated. 4. Followup: Due to the patient's permanent Monique catheter placement and subsequent positive blood cultures, she will require additional outpatient therapy in the Oncology unit for vancomycin flushes. Monique catheter for approximately 7 days. Case management has confirmed that this is possible and the patient is willing to undergo these additional treatments on an outpatient basis. She was advised to follow up with her GI specialist within 2 weeks and followup with Dr. Mendoza, the infectious disease specialist consulted on her case in 6 weeks to ensure that no continued colonization of the Monique catheter was present. PROGNOSIS: In the near term future is poor unless she is placed on a transplant list. Job ID: [id number]
== END 2019-05-11 14:32 | disposition home or self-care (01) | DRG 377 ==
LOC: ERS 20:37 → CCU 05-05 00:29 → IMCU/EMU 05-06 12:17 → T4-A 05-09 13:45
PROVIDERS: ADMIT Student in an Organized Health Care Education/Training Program; ATTEND Student in an Organized Health Care Education/Training Program
PROC: 30233N1 Transfusion of Nonautologous Red Blood Cells into Peripheral Vein, Percutaneous Approach (ICD-10-PCS; 2019-05-04)
PROC: 0DJ08ZZ Inspection of Upper Intestinal Tract, Via Natural or Artificial Opening Endoscopic (ICD-10-PCS; principal; 2019-05-05)
DX: K25.4 Chronic or unspecified gastric ulcer with hemorrhage (principal); K72.00 Acute and subacute hepatic failure without coma; D62 Acute posthemorrhagic anemia; N17.9 Acute kidney failure, unspecified; K76.6 Portal hypertension; D61.818 Other pancytopenia; N30.00 Acute cystitis without hematuria; R78.81 Bacteremia; K75.81 Nonalcoholic steatohepatitis (NASH); N18.3 Chronic kidney disease, stage 3 (moderate); K70.31 Alcoholic cirrhosis of liver with ascites; I12.9 Hypertensive chronic kidney disease with stage 1 through stage 4 chronic kidney disease, or unspecified chronic kidney disease; E11.22 Type 2 diabetes mellitus with diabetic chronic kidney disease; R40.2423 Glasgow coma scale score 9-12, at hospital admission; K21.9 Gastro-esophageal reflux disease without esophagitis; J45.909 Unspecified asthma, uncomplicated; F41.9 Anxiety disorder, unspecified; F32.9 Major depressive disorder, single episode, unspecified; R19.7 Diarrhea, unspecified; K31.89 Other diseases of stomach and duodenum; F17.210 Nicotine dependence, cigarettes, uncomplicated; B95.2 Enterococcus as the cause of diseases classified elsewhere; R53.81 Other malaise; Z90.49 Acquired absence of other specified parts of digestive tract; Z90.89 Acquired absence of other organs; Z88.0 Allergy status to penicillin; Z88.5 Allergy status to narcotic agent; Z88.2 Allergy status to sulfonamides; Z79.899 Other long term (current) drug therapy
CPT/HCPCS: 36415; 36430; 51701; 70450; 71045; 80053; 80202; 81003; 81015; 82140; 82274; 82550; 83605; 83690; 83735; 84484; 85025; 85610; 85730; 86850; 86900; 86901; 87040; 87077; 87086; 87149; 87186; 93005; 96361; 96365; 96366; 96368; 96375; 96376; A4353; C9113; J0696; J2001; J2354; J2405; J2704; J3370; J3490; J7050; P9016

== ENCOUNTER 2019-05-16 09:36 | Day surgery (SDC) | payer OTHER ==
[2019-05-15 10:46] VITALS: BMI 27.3
[2019-05-16] MEDS ORDERED: Promethazine HCl 25 MG/ML VIAL ONE (10:33)
[2019-05-16] MEDS ORDERED: Sodium Bicarbonate 2.5 MEQ/5 ML VIAL ONE (10:33)
[2019-05-16] MEDS ORDERED: Albumin 25% 200 ML ONE (10:33)
[2019-05-16] MEDS ORDERED: Sodium Chloride 0.9% 20 ML ONE (10:34)
--- NOTE | 2019-05-16 12:05 | ULT ---
Sonographic guided paracentesis HISTORY: Recurrent ascites. FINDINGS: After explaining the procedure and answering all questions, sonographic survey shows a larg e amount of free fluid throughout the abdomen. Sterile technique, buffered local anesthesia, sonographic guidance, and a left lower quadrant approach were used to carefully advance the 19-gauge Yueh needle and catheter into the free fluid. Catheter was left to drain a total volume of 6.0 L slightly cloudy yellow liquid. Catheter was removed with minimal fluid remaining. Patient tolerated t he procedure well and was dismissed in good condition. IMPRESSION: Technically successful sonographic guided paracentesis.
== END 2019-05-16 11:55 | disposition home or self-care (01) ==
LOC: ULT 09:36
PROVIDERS: ATTEND Internal Medicine Gastroenterology
PROC: 0W9G3ZZ Drainage of Peritoneal Cavity, Percutaneous Approach (ICD-10-PCS; principal; 2019-05-16)
PROC: BW40ZZZ Ultrasonography of Abdomen (ICD-10-PCS; principal; 2019-05-16)
DX: K74.60 Unspecified cirrhosis of liver (principal); R18.8 Other ascites; I12.9 Hypertensive chronic kidney disease with stage 1 through stage 4 chronic kidney disease, or unspecified chronic kidney disease; E11.22 Type 2 diabetes mellitus with diabetic chronic kidney disease; N18.9 Chronic kidney disease, unspecified; F41.9 Anxiety disorder, unspecified; F32.9 Major depressive disorder, single episode, unspecified; J44.9 Chronic obstructive pulmonary disease, unspecified; D64.9 Anemia, unspecified; M19.90 Unspecified osteoarthritis, unspecified site; G89.29 Other chronic pain; M54.9 Dorsalgia, unspecified; F17.200 Nicotine dependence, unspecified, uncomplicated; K52.9 Noninfective gastroenteritis and colitis, unspecified; Z88.0 Allergy status to penicillin; Z88.2 Allergy status to sulfonamides; Z88.5 Allergy status to narcotic agent; Z88.8 Allergy status to other drugs, medicaments and biological substances; Z91.018 Allergy to other foods
CPT/HCPCS: 49083; J2550; P9047

== ENCOUNTER 2019-05-23 09:33 | Day surgery (SDC) | payer OTHER ==
[2019-05-23 10:32] LABS: INR-International Normal Ratio 1.4; Prothrombin Time 16.7 SEC (12.0-14.7)
[2019-05-23] MEDS ORDERED: Albumin 25% 200 ML ONE (10:34)
[2019-05-23] MEDS ORDERED: Sodium Chloride 0.9% 20 ML ONE (10:34)
[2019-05-23 10:47] LABS: ALT (SGPT) 19 U/L (8-55); AST (SGOT) 32 U/L (5-34); Albumin 2.6 g/dL (3.5-5.0); Alcohol Less than 10 mg/dL (Less than 10); Alkaline Phosphatase 120 U/L (40-150); Anion Gap 11 mmol/L (10-20); BUN (Urea Nitrogen) 19 mg/dL (9.8-20.1); Bilirubin, Total 1.5 mg/dL (0.2-1.2); Calc. Creatinine Clearance 0 mL/min (70-130); Calcium 8.2 mg/dL (7.8-10.44); Carbon Dioxide 22 mmol/L (22-29); Chloride 102 mmol/L (98-107); Estimated GFR-MDRD 39; Globulin 2.6 g/dL (2.4-3.5); Glucose 182 mg/dL (70-105); Potassium 4.7 mmol/L (3.5-5.1); Protein, Total 5.2 g/dL (6.0-8.3); Sodium 130 mmol/L (136-145)
[2019-05-23 10:58] LABS: Hemoglobin 7.5 g/dL (12.0-16.0); Mean Corpuscular Hemoglobin 31.4 pg (27.0-31.0); Mean Corpuscular Volume 95.3 fL (78.0-98.0); Mean Platelet Volume 7.1 fL (7.4-10.4); Platelet Count 104 thou/uL (130-400); RBC Distribution Width 15.9 % (11.5-14.5); Red Blood Cell (RBC) Count 2.37 mill/uL (4.20-5.40); White Blood Cell (WBC) Count 5.3 thou/uL (4.8-10.8)
[2019-05-23 11:01] LABS: Band 2 % (5-11); Eosinophils 10 % (0-10); Lymphocytes 21 % (21-51); MDiff Complete? YES; Monocytes 9 % (0-10); Neutrophil 57 % (42-75); Platelet Morphology Comment Appears Decreased; Polychromasia SLIGHT = 2-3 cells (100X) (0-2/hpf)
[2019-05-23 11:36] VITALS: BP 121/59
[2019-05-23 11:37] VITALS: TEMP 97.9
--- NOTE | 2019-05-23 12:13 | ULT ---
Sonographic guided paracentesis HISTORY: Recurrent ascites. FINDINGS: After explaining the procedure and answering all questions, sonographic survey shows a larg e free fluid. Sterile technique, buffered local anesthesia, sonographic guidance, and a left lower quadrant anterior approach were used to carefully advance a 19-gauge Yueh needle and catheter into th e free fluid. Catheter was left to drain a total volume of 6.1 L clear yellow liquid. Catheter was removed with minimal fluid remaining. Patient tolerated the procedure well and was dismissed in good condition. IMPRESSION: Technically successful sonographic guided paracentesis.
[2019-05-23 12:16] LABS: Ref Lab Test Ordered PETH; Reference Lab Name LABCORP
[2019-05-23 13:36] LABS: Amphetamine Not Detected (NotDetected); Barbiturates Screen Not Detected (NotDetected); Benzodiazepine Screen Not Detected (NotDetected); Cocaine Metabolite Screen Not Detected (NotDetected); Medtox Control Line Valid? VALID (VALID); Medtox Reader # READER 4; Methadone Not Detected (NotDetected); Methamphetamine Not Detected (NotDetected); Opiate Screen Not Detected (NotDetected); Oxycodone Screen Not Detected (NotDetected); Phencyclidine (PCP) Not Detected (NotDetected); THC/Cannabinoid Screen Not Detected (NotDetected); Tricyclic Screen Not Detected (NotDetected)
[2019-05-24 17:44] LABS: Ref Lab Test Ordered NICOTINE W MET UR; Reference Lab Name LABCORP
== END 2019-05-23 12:30 | disposition home or self-care (01) ==
LOC: ULT 09:33
PROVIDERS: ATTEND Internal Medicine Gastroenterology
PROC: 0W9G3ZZ Drainage of Peritoneal Cavity, Percutaneous Approach (ICD-10-PCS; principal; 2019-05-23)
PROC: BW40ZZZ Ultrasonography of Abdomen (ICD-10-PCS; principal; 2019-05-23)
DX: K74.60 Unspecified cirrhosis of liver (principal); R18.8 Other ascites; I12.9 Hypertensive chronic kidney disease with stage 1 through stage 4 chronic kidney disease, or unspecified chronic kidney disease; E11.22 Type 2 diabetes mellitus with diabetic chronic kidney disease; N18.9 Chronic kidney disease, unspecified; J44.9 Chronic obstructive pulmonary disease, unspecified; D63.1 Anemia in chronic kidney disease; F41.9 Anxiety disorder, unspecified; F32.9 Major depressive disorder, single episode, unspecified; G89.29 Other chronic pain; M54.9 Dorsalgia, unspecified; K21.9 Gastro-esophageal reflux disease without esophagitis; Z88.0 Allergy status to penicillin; Z88.2 Allergy status to sulfonamides; Z88.5 Allergy status to narcotic agent; Z88.8 Allergy status to other drugs, medicaments and biological substances; Z91.018 Allergy to other foods
CPT/HCPCS: 36415; 49083; 80053; 80306; 80307; 85025; 85610; P9047

== ENCOUNTER 2019-05-29 20:22 | Inpatient (IN) | payer OTHER ==
[2019-05-29 21:08] LABS: #Eosinphils 0.4 thou/uL (0.0-0.7); #Lymphocytes 0.9 thou/uL (1.20-3.40); #Monocytes 0.9 thou/uL (0.11-0.59); #Neutrophils 4.3 thou/uL (1.40-6.50); %Basophils 0.5 % (0.0-1.0); %Eosinophils 6.7 % (0.0-10.0); %Lymphocytes 13.1 % (21.0-51.0); %Neutrophils 65.7 % (42.0-75.0); Mean Corpuscular Hemoglobin 32.5 pg (27.0-31.0); Mean Corpuscular Volume 98.6 fL (78.0-98.0); Platelet Count 105 thou/uL (130-400); RBC Distribution Width 16.8 % (11.5-14.5); Red Blood Cell (RBC) Count 1.83 mill/uL (4.20-5.40); White Blood Cell (WBC) Count 6.6 thou/uL (4.8-10.8)
--- NOTE | 2019-05-29 21:09 | CT ---
CT BRAIN NONCONTRAST: DATE: 05/29/2019 HISTORY: 53-year-old female with nausea and altered mental status. FINDINGS: There is no evidence of acute intra-axial or extra-axial hemorrhage. There is no midline shift or any other mass effect. There is no extra-axial fluid collection. There is no evidence of obstructive hydrocephalus. Calvarium is intact. IMPRESSION: No acute intracranial findings.
[2019-05-29 21:37] LABS: ALT (SGPT) 15 U/L (8-55); AST (SGOT) 23 U/L (5-34); Acetaminophen Less than 6.0 mcg/mL (10.0-30.0); Albumin 2.5 g/dL (3.5-5.0); Alcohol Less than 10 mg/dL (Less than 10); Alkaline Phosphatase 100 U/L (40-110); Anion Gap 12 mmol/L (10-20); BUN (Urea Nitrogen) 21 mg/dL (9.8-20.1); Bilirubin, Total 1.5 mg/dL (0.2-1.2); CK (CPK) 44 U/L (29-168); Calc. Creatinine Clearance 0 mL/min (70-130); Calcium 7.8 mg/dL (7.8-10.44); Carbon Dioxide 20 mmol/L (22-29); Chloride 100 mmol/L (98-107); Estimated GFR-MDRD 38; Globulin 2.2 g/dL (2.4-3.5); Glucose 215 mg/dL (70-105); Lipase 37 U/L (8-78); Potassium 3.7 mmol/L (3.5-5.1); Protein, Total 4.7 g/dL (6.0-8.3); Salicylate Less than 8.0 mg/dL (15.0-30.0); Sodium 128 mmol/L (136-145)
[2019-05-29] MEDS ORDERED: Pantoprazole 40 MG VIAL ONE (22:26)
[2019-05-29] MEDS ORDERED: Pantoprazole 80 MG, Admixture Fee 1 EACH in Sodium Chloride 0.9% 100 ML IVPB SCH (22:45)
[2019-05-29] MEDS ORDERED: Octreotide Acetate 100 MCG/ML VIAL ONE (23:00)
[2019-05-29] MEDS ORDERED: cefTRIAXone\\ROCEPHIN 2 GM VIAL ONE (23:00)
--- NOTE | 2019-05-29 23:15 | PDOC.FPRHP ---
- History of Present Illness Chief Complaint: GI Bleed, AMS History of Present Illness: Pt is a 53 yo with PMH significant for GI Bleed, Gastric Ulcers and Gastropathy , Cirrhosis, Acute on Chronic Anemia, DMII, HTN, CKD , Depression, Hyponatremia , GERD, Asthma who presents for GI bleed, AMS. Unable to gather information from pt due to mentation, no family with pt. Pt seen by Dr. Schmid in outpt setting. 1.5 weeks ago Hgb was 7.5. On previous admission, 05/11, pt presented with similar symptoms. Pt was found to have gastric ulcers, hypertensive gastropathy 2/2 cirrhosis but not found to have esophageal varices. or acute gastric bleed. She received 3 U pRBC during the visit and mentation returned w/ resolution of elevated ammonia levels. Pt has previous TIPS procedure which was patent during visit. At this time pt was on transplant list. ED Course: In the ED pt was found to have a hgb of 6.0, AMS. Lactulose given and subsequently had 1 melana BM. Vitals were stable, SBP 110's. Pt transfused 2 U pRBC's. Pt drug screen negative. - Allergies/Adverse Reactions Allergies Allergy/AdvReac Type Severity Reaction Status Date / Time acetaminophen [From Tylenol] Allergy Verified 05/29/19 11:58 aspirin Allergy Verified 05/29/19 11:58 butorphanol [From Stadol] Allergy Verified 05/29/19 11:58 codeine Allergy Verified 05/29/19 11:58 morphine Allergy Verified 05/29/19 11:58 Penicillins Allergy vomiting Verified 05/29/19 11:58 silver Allergy Verified 05/29/19 11:58 [From Tegaderm AG Mesh] Sulfa (Sulfonamide Allergy Verified 05/29/19 11:58 Antibiotics) persimmon Allergy Uncoded 05/29/19 11:58 - Home Medications Medication Instructions Recorded Confirmed Type Spironolactone [Aldactone] 100 mg PO BID 01/10/19 05/29/19 History Esomeprazole Magnesium [NexIUM] 40 mg PO BID 02/24/19 05/29/19 History Magnesium 100 tab PO DAILY 04/19/19 05/29/19 History Pantoprazole [Protonix] 40 mg PO BID 04/19/19 05/29/19 History Lactulose 20 gm PO BID 04/28/19 05/29/19 History Furosemide [Lasix] 40 mg PO BID 30 Days #120 tablet 05/10/19 05/29/19 Rx Miconazole Nitrate [Monistat 7] 1 supp VAG HS box 05/11/19 05/29/19 Rx Cyclobenzaprine [Flexeril] 10 mg PO TID PRN 05/29/19 05/29/19 History Loratadine [Claritin] 10 mg PO DAILY 05/29/19 05/29/19 History Midodrine HCl [ProAmatine] 5 mg PO TID 05/29/19 05/29/19 History Rifaximin [Xifaxan] 550 mg PO BID 05/29/19 05/29/19 History busPIRone HCl [Buspar] 10 mg PO BID 05/29/19 05/29/19 History traMADol HCl [Tramadol HCl] 50 mg PO TID PRN 05/29/19 05/29/19 History - History PMHx: GI Bleed, Gastric Ulcers and Gastropathy, Cirrhosis, Acute on Chronic Anemia, DMII, HTN, CKD , Depression, Hyponatremia, GERD, Asthma PSHx: TIPS FHx: non-contributory Social: former smoker, former alcohol abuse, unable to obtain current status due to AMS. Last visit mother stated no alcohol use. - Review of Systems ROS unobtainable: due to mental status - Vital signs BP: [108/62] HR: [101] RR: [20] Tmax: [98.4] Pox: [100]% on [RA] Wt: [113.4 kg ] - Physical Exam -Constitutional: AMS, ability to speak but non-conversational, unaware of surroundings, AAO x 3 HEENT: EOMI, no scleral icterus Neck: FROM, trachea midline Heart: RRR, normal S1/S2, pulses present -Heart: 2-3+ LE Edema Lungs: CTAB, good air movement, no wheezing -Abdomen: Distended abdomen, positive fluid wave, no masses noted, enlarged liver below costal border, bowel sounds present Musculoskeletal: normal tone, ROM grossly normal -Skin: Spider angiomas on chest, yellowing of skin Heme/Lymphatic: no purpura, no petechia FMR H&P: Results - Labs Result Diagrams: 05/30/19 01:04 05/29/19 20:51 Lab results: WBC 6.6 thou/uL (4.8-10.8) 05/29/19 20:51 Hgb 6.0 g/dL (12.0-16.0) L 05/29/19 20:51 Hct 18.0 % (36.0-47.0) L 05/29/19 20:51 MCV 98.6 fL (78.0-98.0) H 05/29/19 20:51 Plt Count 105 thou/uL (130-400) L 05/29/19 20:51 Neutrophils % 65.7 % (42.0-75.0) 05/29/19 20:51 Sodium 128 mmol/L (136-145) L 05/29/19 20:51 Potassium 3.7 mmol/L (3.5-5.1) 05/29/19 20:51 Chloride 100 mmol/L (98-107) 05/29/19 20:51 Carbon Dioxide 20 mmol/L (22-29) L 05/29/19 20:51 BUN 21 mg/dL (9.8-20.1) H 05/29/19 20:51 Creatinine 1.44 mg/dL (0.6-1.1) H 05/29/19 20:51 Glucose 215 mg/dL (70-105) H 05/29/19 20:51 Calcium 7.8 mg/dL (7.8-10.44) 05/29/19 20:51 Total Bilirubin 1.5 mg/dL (0.2-1.2) H 05/29/19 20:51 AST 23 U/L (5-34) 05/29/19 20:51 ALT 15 U/L (8-55) 05/29/19 20:51 Alkaline Phosphatase 100 U/L (40-110) 05/29/19 20:51 Ammonia 178 umol/L (18-72) H 05/29/19 20:51 Creatine Kinase 44 U/L (29-168) 05/29/19 20:51 Serum Total Protein 4.7 g/dL (6.0-8.3) L 05/29/19 20:51 Albumin 2.5 g/dL (3.5-5.0) L 05/29/19 20:51 Lipase 37 U/L (8-78) 05/29/19 20:51 FMR H&P: A/P - Problem List (1) GI bleed Current Visit: Yes Status: Acute Code(s): K92.2 - GASTROINTESTINAL HEMORRHAGE, UNSPECIFIED Qualifiers: GI bleed type/associated pathology: unspecified gastrointestinal hemorrhage type Qualified Code(s): K92.2 - Gastrointestinal hemorrhage, unspecified (2) Anemia Current Visit: No Status: Acute Code(s): D64.9 - ANEMIA, UNSPECIFIED Qualifiers: Anemia type: unspecified type Qualified Code(s): D64.9 - Anemia, unspecified (3) Hepatic encephalopathy Current Visit: No Status: Acute Priority: High Code(s): K72.90 - HEPATIC FAILURE, UNSPECIFIED WITHOUT COMA (4) Portal hypertension Current Visit: No Status: Acute Code(s): K76.6 - PORTAL HYPERTENSION (5) Portal hypertensive gastropathy Current Visit: No Status: Acute Code(s): K76.6 - PORTAL HYPERTENSION; K31.89 - OTHER DISEASES OF STOMACH AND DUODENUM (6) Cirrhosis Current Visit: No Status: Chronic Code(s): K74.60 - UNSPECIFIED CIRRHOSIS OF LIVER Qualifiers: Ascites presence: with ascites (7) Cirrhosis of liver with ascites Current Visit: No Status: Chronic Priority: High Code(s): K74.60 - UNSPECIFIED CIRRHOSIS OF LIVER Qualifiers: Hepatic cirrhosis type: unspecified hepatic cirrhosis Qualified Code(s): K74.60 - Unspecified cirrhosis of liver; R18.8 - Other ascites Comment: SPENCER with recurrent ascites, plan for US guided paracentesis in am, GI consult pending. (8) DM type 2 (diabetes mellitus, type 2) Current Visit: No Status: Chronic Qualifiers: Diabetes mellitus rodent exterminator insulin use: without rodent exterminator use Diabetes mellitus complication status: with kidney complications Diabetes mellitus complication detail: with chronic kidney disease Chronic kidney disease stage : stage 3 (moderate) Qualified Code(s): E11.22 - Type 2 diabetes mellitus with diabetic chronic kidney disease; N18.3 - Chronic kidney disease, stage 3 ( moderate) (9) GERD (gastroesophageal reflux disease) Current Visit: No Status: Chronic Code(s): K21.9 - GASTRO-ESOPHAGEAL REFLUX DISEASE WITHOUT ESOPHAGITIS Qualifiers: Esophagitis presence: without esophagitis Qualified Code(s): K21.9 - Gastro -esophageal reflux disease without esophagitis (10) History of tobacco abuse Current Visit: No Status: Chronic Code(s): Z87.891 - PERSONAL HISTORY OF NICOTINE DEPENDENCE (11) Hyponatremia Current Visit: No Status: Chronic Code(s): E87.1 - HYPO-OSMOLALITY AND HYPONATREMIA (12) S/P TIPS (transjugular intrahepatic portosystemic shunt) Current Visit: No Status: Chronic - Plan Pt is a 53 yo with PMH significant for GI Bleed, Gastric Ulcers and Gastropathy , Cirrhosis, Acute on Chronic Anemia, prophylactic infection treatment, DMII, HTN, CKD , Depression, Hyponatremia, GERD, Asthma admitted for recurrent GI bleed, metabolic/hepatic encephalopathy. # GI Bleed Hgb 6.0 - 2 pRBC's transfused - pending H/H four hours post-transfusion - monitor for hemodynamic instability # Cirrhosis w/ hx of TIPS # Hepatic/Metabolic Encephalopthy 2/2 elevated ammonia, cirrhosis # Hypertensive Gastropathy Ammonia 178. AMS - responds to stimuli, does not answer questions appropriately. 2-3+ LE edema, ascites, spider angioma. MELD score [address] Head negative. Drug screen negative. EGD on last admission revealed gastric ulcers, hypertensive gastropathy, no evidence of acute bleed or varices - Follow up on transplant status. - octreotide initiated although on last EGD no sign of varices. Hemodynamically stable vitals - protonix for GI protection - lactulose currently BID - titrate to 3-4 BM per day - GI consulted, spoke with Dr. Neal who agreed with current management. He does not feel it is secondary to variceal bleed. Recommended contacting pt's GI physician, Dr. Schmid, in the am for further management. Appreciate the recommendations. - NPO if procedure needed - PTINR, PTT pending - prophylactic Rocephin # Hyperbilirubinemia - secondary to cirrhosis # Acute on chronic anemia - as above - home medications do not include ferrous sulfate # DM II BG > 200, does not have home medications - Monitor at this time, pt is NPO. Can consider sliding scale insulin. # HTN - hold home BP meds # Chronic Hyponatremia 128 - monitor at this time, likely secondary to cirrhosis # CKD Creatinine 1.44, baseline ~1.2 - BMP in am Fluids: none Diet: NPO VTE Prophylaxis: SCDs Code Status: Full from previous admission, unable to obtain due to AMS Dispo: Unstable, admit to IMCU for GI bleed, GI will follow up in morning and agree with current management. FMR H&P: Upper Level - Pertinent history 53 yo f with ESLD and alcoholic cirrhosis presents for ams and presyncopal episode. HPI obtained from records as no family at bedside and pt encephalopathic on arrival. Per records pt had presyncopal episode earlier in the day and was brought for evaluation. Per family pt was slower to respond and more somnolent today. She was recently hospitalized for met encephalopathy and found to have an acute on chronic blood loss anemia and had egd which showed htn gastropathy without evidence of continued bleed. She was also noted to have infected f[place]on cath. She was rxd and managed per ID recs and completed her dose of abx. In ED she was given dose of lactulose and prior to arrival for evaluation had a large, grossly melanotic BM. Her hgb in OP visit was 7.4 approx 1 week ago and on arrival found to have hgb of 6. On prior admission she was thought to be encephalopathic from elevated ammnia level in 80s and current ammonia level 170s. She was started on octreotide drip, given IVP protonix and ppx rocephin was given. GI consulted shortly after evaluation and in agreement with current management. MELD-Na 23 based on prior INR and current labs, coags on this visit pending. - Pertinent findings ROS: Unable to obtain 2/2 mentation PE: Gen: ill appearing f HEENT: NCAT, scleral icterus, pale and icteric skin CV: rRR No MRG Resp:Ctabl no wrr Abd: Distended with ascites and pos fluid wave, no rebound or guarding Ext: moving all no focal neuro deficit Neuro: GCS 10 [id number], no focal deficit Psych: a&ox0, confised, disoriented, incomprehensible words - Plan Date/Time: 05/29/19 [id number] Audie Alfaro DO, have evaluated this patient and agree with findings/ plan as outlined by manager internal resident. Pertinent changes/additions are listed here. 1) Hepatic encephalopathy - GCS 10 - lactulose given with resultant grossly melanotic stool - started on IV octreotide given OV protonix and rocephin for sbp ppx - ammonia 170s 2) symptomatic anemia with presyncope 2/2 presumed UGI bleed - melaontic stool and hgb 6 - transfuse 2UPRBCS - repeat h/h 4 hours post transfusion - GI consulted - monitor for s/s of worsneieng bleed 3) Heaptic alcoholic cirrhosis - meld na 23 - coags pending - gi consulted, appreciate recs 4)nedra on ckd - likely 2/2 acute blood loss - transfuse 2Uprbcs and trend - maintenance IVF 5) DMII - achs - SSI Dispo: Guarded: will admit to IMCU for close monitoring and blood product administration. Octreotide, protonix and rocephin for empric rx of UGI bleed and hepatic encephalopathy. GI consulted, appreciate recs.
[2019-05-29 23:20] LABS: Bilirubin Negative (Negative); Blood, Urine Negative (Negative); Clarity Clear (Clear); Glucose, Urine (Dipstick) Normal (Negative); Leukocyte Negative Leu/uL (Negative); Nitrite Negative (Negative); Protein, Urine (Dipstick) Negative (Neg-Trace); Urobilinogen Normal mg/dL (Less than 2)
[2019-05-29] MEDS ORDERED: Octreotide Acetate 100 MCG/ML VIAL SLOW IVP SCH (23:30)
[2019-05-29] MEDS ORDERED: Octreotide Acetate 1,250 MCG in Sodium Chloride 0.9% 250 ML 250 ML IVPB SCH (23:30)
[2019-05-29 23:38] LABS: Amphetamine Not Detected (NotDetected); Barbiturates Screen Not Detected (NotDetected); Benzodiazepine Screen Not Detected (NotDetected); Cocaine Metabolite Screen Not Detected (NotDetected); Medtox Control Line Valid? VALID (VALID); Medtox Reader # READER 4; Methadone Not Detected (NotDetected); Methamphetamine Not Detected (NotDetected); Opiate Screen Not Detected (NotDetected); Oxycodone Screen Not Detected (NotDetected); Phencyclidine (PCP) Not Detected (NotDetected); THC/Cannabinoid Screen Not Detected (NotDetected); Tricyclic Screen Not Detected (NotDetected)
[2019-05-30 01:24] LABS: Hemoglobin 7.3 g/dL (12.0-16.0)
[2019-05-30 03:45] LABS: INR-International Normal Ratio 1.6; PTT 36.5 SEC (22.9-36.1); Prothrombin Time 18.5 SEC (12.0-14.7)
[2019-05-30 04:05] LABS: ALT (SGPT) 14 U/L (8-55); AST (SGOT) 22 U/L (5-34); Albumin 2.3 g/dL (3.5-5.0); Alkaline Phosphatase 90 U/L (40-110); Anion Gap 10 mmol/L (10-20); BUN (Urea Nitrogen) 21 mg/dL (9.8-20.1); Bilirubin, Total 1.9 mg/dL (0.2-1.2); Calc. Creatinine Clearance 0 mL/min (70-130); Calcium 7.6 mg/dL (7.8-10.44); Carbon Dioxide 20 mmol/L (22-29); Chloride 104 mmol/L (98-107); Estimated GFR-MDRD 40; Globulin 2.1 g/dL (2.4-3.5); Glucose 197 mg/dL (70-105); Potassium 4.1 mmol/L (3.5-5.1); Protein, Total 4.4 g/dL (6.0-8.3); Sodium 130 mmol/L (136-145)
[2019-05-30 05:02] LABS: #Eosinphils 0.2 thou/uL (0.0-0.7); #Lymphocytes 0.7 thou/uL (1.20-3.40); #Monocytes 0.7 thou/uL (0.11-0.59); #Neutrophils 3.2 thou/uL (1.40-6.50); %Basophils 0.4 % (0.0-1.0); %Eosinophils 4.7 % (0.0-10.0); %Monocytes 14.5 % (0.0-10.0); %Neutrophils 66.5 % (42.0-75.0); Anisocytosis SLIGHT = 6-15 cells (100X) (0-5/hpf); Hemoglobin 6.6 g/dL (12.0-16.0); MDiff Complete? YES; Mean Corpuscular HGB CONC 35.3 g/dL (32.0-36.0); Mean Corpuscular Hemoglobin 33.3 pg (27.0-31.0); Mean Corpuscular Volume 94.2 fL (78.0-98.0); Mean Platelet Volume 7.1 fL (7.4-10.4); Platelet Count 76 thou/uL (130-400); Platelet Morphology Comment Appears Decreased; RBC Distribution Width 15.9 % (11.5-14.5); White Blood Cell (WBC) Count 4.9 thou/uL (4.8-10.8)
--- NOTE | 2019-05-30 06:58 | PDOC.FM ---
- Subjective Subjective: Patient resting comfortably in bed. Patient states she is back to her baseline this morning. Overall feels well. She reports she does not remember much from last night but that she knows and understands everything going on this morning. She reports she was here 2 weeks ago and had an EGD. She states she has been taking all of her medications as directed. She states she is frustrated that this keeps happening when she is taking all of her medications. - Objective MAR Reviewed: Yes Result Diagrams: 05/30/19 08:59 05/30/19 03:28 Phys Exam - Physical Examination Constitutional: NAD HEENT: PERRLA, moist MMs mild scleral icterus b/l Neck: no JVD, supple, full ROM Respiratory: clear to auscultation bilateral Cardiovascular: RRR, no significant murmur, no rub Gastrointestinal: soft, non-tender, positive bowel sounds distended, positive fluid wave +1 edema b/l in LE Neurological: non-focal, normal sensation, moves all 4 limbs Psychiatric: normal affect, A&O x 3 Skin: no rash, normal turgor, cap refill <2 seconds Deviation from normal: yellowing of skin, spider angiomas on chest Dx/Plan (1) GI bleed Code(s): K92.2 - GASTROINTESTINAL HEMORRHAGE, UNSPECIFIED Status: Acute Qualifiers: GI bleed type/associated pathology: unspecified gastrointestinal hemorrhage type Qualified Code(s): K92.2 - Gastrointestinal hemorrhage, unspecified (2) ZACHARY (acute kidney injury) Code(s): N17.9 - ACUTE KIDNEY FAILURE, UNSPECIFIED Status: Acute (3) Anemia Code(s): D64.9 - ANEMIA, UNSPECIFIED Status: Acute Qualifiers: Anemia type: unspecified type Qualified Code(s): D64.9 - Anemia, unspecified (4) Anxiety Code(s): F41.9 - ANXIETY DISORDER, UNSPECIFIED Status: Acute (5) Hepatic encephalopathy Code(s): K72.90 - HEPATIC FAILURE, UNSPECIFIED WITHOUT COMA Status: Acute (6) MELENA STOOL Status: Acute (7) Portal hypertensive gastropathy Code(s): K76.6 - PORTAL HYPERTENSION; K31.89 - OTHER DISEASES OF STOMACH AND DUODENUM Status: Acute (8) Symptomatic anemia Code(s): D64.9 - ANEMIA, UNSPECIFIED Status: Acute (9) Cirrhosis of liver with ascites Code(s): K74.60 - UNSPECIFIED CIRRHOSIS OF LIVER Status: Chronic Qualifiers: Hepatic cirrhosis type: unspecified hepatic cirrhosis Qualified Code(s): K74.60 - Unspecified cirrhosis of liver; R18.8 - Other ascites (10) DM type 2 (diabetes mellitus, type 2) Status: Chronic Qualifiers: Diabetes mellitus snf insulin use: without snf use Diabetes mellitus complication status: with kidney complications Diabetes mellitus complication detail: with chronic kidney disease Chronic kidney disease stage : stage 3 (moderate) Qualified Code(s): E11.22 - Type 2 diabetes mellitus with diabetic chronic kidney disease; N18.3 - Chronic kidney disease, stage 3 ( moderate) (11) GERD (gastroesophageal reflux disease) Code(s): K21.9 - GASTRO-ESOPHAGEAL REFLUX DISEASE WITHOUT ESOPHAGITIS Status: Chronic Qualifiers: Esophagitis presence: without esophagitis Qualified Code(s): K21.9 - Gastro -esophageal reflux disease without esophagitis (12) HTN (hypertension) Code(s): I10 - ESSENTIAL (PRIMARY) HYPERTENSION Status: Chronic Qualifiers: Hypertension type: unspecified Qualified Code(s): I10 - Essential (primary ) hypertension (13) S/P TIPS (transjugular intrahepatic portosystemic shunt) Status: Chronic - Plan Plan: Hepatic encephalopathy, resolved GCS initially 10 and now 15. Ammonia 178 on admission. - Lactulose given with resultant grossly melanotic stool. Will continue and titrate to 3-4BMs/day. - Continue IV octreotide, IV protonix and rocephin for SBP ppx. Will continue home med of aldactone. - GI consulted and appreciate recs. Symptomatic anemia with presyncope 2/2 presumed UGI bleed Melaontic stool and Hgb 6 on admission. S/p 2u PRBCS. - repeat H/H improved to 8.8. - GI consulted, appreciate recs - possible scope Heaptic alcoholic cirrhosis w/ ascites - MELD score 23 - estimated 90 day mortality of 15%, will touch base with Dr. Schmid for management recs. - Patient states she follows with surgeons in for possible transplant but that she needs additional testing done. Will try to find out the patient's status for transplant. - Patient gets weekly paracentesis outpatient - scheduled for procedure today. Will continue to monitor this. On abx for SBP ppx. ZACHARY on CKD likely 2/2 acute blood loss. S/p 2uPRBCs - Cr slightly improved from yesterday. Patient with good urine output. Will continue to monitor Is/Os. DMII - ACHS, SSI Dispo: stable, will transfer patient to the medical unit as she is clinically stable and mentally back her baseline as well; Octreotide, protonix and rocephin for empric tx of UGI bleed and hepatic encephalopathy. Await GI recs.
[2019-05-30] MEDS ORDERED: Octreotide Acetate 1,000 mcg/ml Multi-Dose Vial IV SCH (09:00)
[2019-05-30 09:07] LABS: Hemoglobin 8.8 g/dL (12.0-16.0); Platelet Count 84 thou/uL (130-400)
[2019-05-30] MEDS ORDERED: Sodium Bicarbonate 2.5 MEQ/5 ML VIAL ONE (10:13)
[2019-05-30] MEDS ORDERED: Sodium Chloride 0.9% 20 ML ONE (10:57)
[2019-05-30] MEDS ORDERED: Albumin 25% 200 ML ONE (12:16)
[2019-05-30 14:03] VITALS: BMI 41.3
[2019-05-30 14:32] LABS: Hemoglobin 7.7 g/dL (12.0-16.0)
[2019-05-30] MEDS: Spironolactone 100 MG TAB PO SCH ×2 (15:02→21:09)
--- NOTE | 2019-05-30 15:28 | ULT ---
Ultrasound-guided paracentesis: HISTORY: Cirrhosis and ascites. FINDINGS: Informed consent obtained prior to the procedure. Preprocedural imaging demonstrated intrap eritoneal free fluid. An area was marked in the left lower quadrant, and then meticulously prepped and draped in normal brenden rile fashion and anesthetized with 1% buffered lidocaine. With direct sonographic guidance, a 19-gauge needle and 5 Croatian Yueh catheter were advanced into the abdomen. After the return of fluid, the catheter was advanced, and the needle was removed. Approximately 3.8 L of slightly cloudy yellow-colored was aspirated. The introducer sheath was remove d, and hemostasis was achieved with direct pressure. A dry sterile dressing was placed. The patient tolerated the procedure well and without immediate complication. IMPRESSION: Technically successful ultrasound-guided paracentesis.
--- NOTE | 2019-05-30 16:30 | HP ---
I have discussed the case with Dr. Cintia Cárdenas and agree with her assessment and plan. HISTORY OF PRESENT ILLNESS: Ms. Gonzalez is a 53-year-old white female with a history of end-stage liver disease, who is working toward getting a transplant. She has had previous episodes of upper GI bleeds due to cirrhotic gastropathy. She came in with melenic stools and was also encephalopathic. She was found to have a hemoglobin of 6 and has been admitted for transfusion, GI evaluation and possibly a repeat EGD. PHYSICAL EXAMINATION: VITAL SIGNS: Her blood pressure is 108/71. She is afebrile. Pulse rate is 95, respirations are 16, and her room air O2 saturation is 100%. GENERAL: She is alert, but confused. When asked questions, she goes off on a tangent and gives an answers as nothing do with the original question. EAR, NOSE, AND THROAT: She appears pale, but there is no erythema or exudate of the throat. NECK: Supple. CARDIAC: Her heart rhythm is regular. S4 gallop. No murmur or rub noted. LUNGS: Clear without rales or wheezes. No respiratory distress. ABDOMEN: Distended with a positive fluid wave. The liver is enlarged. EXTREMITIES: The patient moves all extremities without difficulty. NEUROLOGIC: She is confused, but otherwise demonstrates no focal signs. LABORATORY DATA: As stated above. Her admission CBC shows a hemoglobin of 6, hematocrit of 18 with an MCV of 98.6. Platelets are 105,000. Chemistries; sodium is 128, potassium 3.7, chloride 100, bicarb 20, BUN 21, and creatinine 1.44. Her current glucose is 215. Her ammonia level is elevated at 178. Her AST is 23 and ALT is 15. Toxicology, no abnormal drugs detected. Coags, her INR is 1.6. ASSESSMENT: 1. Hepatic encephalopathy. 2. Upper gastrointestinal bleed, likely secondary to cirrhotic gastropathy. 3. Advanced cirrhosis. PLAN: Admit, transfuse. Consult GI. The patient is already on Protonix and octreotide. She is also on lactulose. Job ID: [id number]
[2019-05-30] MEDS: Rifaximin 550 MG TAB PO SCH (21:04)
[2019-05-30] MEDS: cefTRIAXone\\ROCEPHIN 2 GM in Sodium Chloride 0.9% 100 ML IVPB SCH (23:26)
[2019-05-30] MEDS: traMADol HCl 50 MG TAB PO PRN (23:26)
[2019-05-30] MEDS ORDERED: Melatonin 3 MG TAB PO SCH (23:30)
--- NOTE | 2019-05-31 00:35 | CON ---
DATE OF CONSULTATION: 05/30/2019 HISTORY OF PRESENT ILLNESS: Ms. Gonzalez was admitted to the hospital today. She presented to the emergency room apparently yesterday with confusion. She had a little bit of melenic stool and had confusions as far as she really do not know where she had been and she was admitted. She denies any fever or chills, rashes, myalgias, or arthralgias. She has had no bleeding since she has come in. On presentation, she had a CT scan of her head that was yesterday that showed no acute intracranial abnormalities. LABORATORY DATA: Her labs showed hemoglobin is 6, baseline is around 7.5 to 8. INR was 1.6 and stable. Her BUN and creatinine were 21 and 1.44. Sodium 128, protein 4.7, albumin 2.5, ammonia is 178. AST, ALT 23 and 15, alkaline phosphatase 150. Urinalysis was negative. Paracentesis was performed, but the fluid was not sent for infection. UDS was negative. Alcohol screens were negative. Presently, the patient is feeling better. In talking with her, she states that she missed her last appointment in [place] for her liver transplant evaluation as she was here with Staph infection. She got a phone call into them today about rescheduling. PAST MEDICAL HISTORY: 1. Cirrhosis secondary to fatty liver, possibly prior alcohol use. She has not been drinking alcohol in several years. 2. Decompensation with refractory ascites, status post TIPS several times. At the most recent TIPS, she has been more encephalopathic after. 3. Hepatic encephalopathy as above. 4. Severe portal hypertensive gastropathy. This was causing recurrent bleeding, requiring transfusion, was another reason for her TIPS placement. 5. Chronic Moniqeu catheter placed in [place] because of access problems and frequent admissions. 6. Staphylococcus epidermidis bacteremia, previously treated with vancomycin lock on Monique catheter. MEDICATIONS: At home; 1. Aldactone 100 mg b.i.d. 2. Lactulose 30 mg t.i.d. 3. Furosemide 40 mg b.i.d. Medications presently are; 1. Rocephin. 2. Lactulose. 3. Octreotide. 4. Protonix drip. 5. Aldactone. REVIEW OF SYSTEMS: Negative for chest pain, shortness of breath, dyspnea on exertion, fever, chills, hematemesis, nosebleeds, cough, shortness of breath, rashes, myalgias, or arthralgias, does have some fullness in the right abdomen. PHYSICAL EXAMINATION: VITAL SIGNS: Temperature is 97.8, pulse 97, blood pressure 111/74. GENERAL: The patient is resting comfortably in bed. She has no distress. She is alert and oriented to person, place, and time. HEENT: She is nonicteric. LUNGS: Clear. HEART: Regular rate and rhythm without clicks or murmurs. ABDOMEN: Soft and nontender. There is no palpable hepatosplenomegaly. There is some subcutaneous edema over the right hip bone. EXTREMITIES: No clubbing, cyanosis, or edema. No asterixis. LABORATORY DATA: On admission, hemoglobin is 6, 7.3 today, stable 7.7 at 1400, white count 6.6, platelet count 105, INR 1.6. Other labs as per HPI. Microbiology; stool occult blood was obtained and was positive. ASSESSMENT: Cirrhosis, end-stage liver disease with refractory ascites and severe portal gastropathy, requiring transfusions. She has had TIPS with two revisions. It is working a little bit better now, but again she is still requiring transfusions. Again, she has had intermittent intestinal bleeding characterized by oozing from gastric antral vascular ectasias and she is having more encephalopathy. She is offered sedatives and sleep aids apparently at home. I did recommend that she take the lactulose up to 4 or 5 times a day if needed just to keep the bowels moving 2 to 3 times a day. I have advised she avoid any sleep aids. If she requires further paracentesis this admission, she needs a cell count differential sent. I would stop her octreotide drip as I do not see any indication to continue this at this time and would stop the Protonix drip and just give her oral Protonix. If she remained stable, she can go home in the next 24 to 48 hours. I have instructed her that it is paramount that she make her followups with her [facility] in [place] as she is in staging without transplant. I think that her survival chances are very low over the next year. Job ID: [id number]
--- NOTE | 2019-05-31 05:49 | PDOC.FM ---
- Subjective Subjective: Pt notes some mild dizziness and lightheadedness that is worse with standing this morning. No events overnight. Blood transfusing this morning. - Objective Vital Signs & Weight: Vital Signs (12 hours) Temp Pulse Resp BP Pulse Ox 05/30/19 20:26 98.9 F 100 20 111/74 100 Weight Weight 116 kg I&O: 05/29/19 05/30/19 05/31/19 06:59 06:59 06:59 Output Total 900 Balance -900 Result Diagrams: 05/31/19 16:08 05/31/19 06:10 Phys Exam - Physical Examination Constitutional: NAD Mild scleral icterus, pale conjunctiva Neck: full ROM Respiratory: clear to auscultation bilateral Cardiovascular: RRR Gastrointestinal: soft Mildly distended and tympanic, non tender Musculoskeletal: pulses present 1+ pitting edema bilaterally Neurological: moves all 4 limbs Psychiatric: A&O x 3 Skin: no rash Deviation from normal: Pale and mildly jaundice Dx/Plan (1) GI bleed Code(s): K92.2 - GASTROINTESTINAL HEMORRHAGE, UNSPECIFIED Status: Acute Qualifiers: GI bleed type/associated pathology: unspecified gastrointestinal hemorrhage type Qualified Code(s): K92.2 - Gastrointestinal hemorrhage, unspecified (2) Hepatic encephalopathy Code(s): K72.90 - HEPATIC FAILURE, UNSPECIFIED WITHOUT COMA Status: Acute (3) Portal hypertensive gastropathy Code(s): K76.6 - PORTAL HYPERTENSION; K31.89 - OTHER DISEASES OF STOMACH AND DUODENUM Status: Acute (4) Symptomatic anemia Code(s): D64.9 - ANEMIA, UNSPECIFIED Status: Acute (5) CKD (chronic kidney disease) stage 3, GFR 30-59 ml/min Code(s): N18.3 - CHRONIC KIDNEY DISEASE, STAGE 3 (MODERATE) Status: Chronic (6) Cirrhosis of liver with ascites Code(s): K74.60 - UNSPECIFIED CIRRHOSIS OF LIVER Status: Chronic Qualifiers: Hepatic cirrhosis type: unspecified hepatic cirrhosis Qualified Code(s): K74.60 - Unspecified cirrhosis of liver; R18.8 - Other ascites (7) DM type 2 (diabetes mellitus, type 2) Status: Chronic Qualifiers: Diabetes mellitus manager intermediate insulin use: without manager intermediate use Diabetes mellitus complication status: with kidney complications Diabetes mellitus complication detail: with chronic kidney disease Chronic kidney disease stage : stage 3 (moderate) Qualified Code(s): E11.22 - Type 2 diabetes mellitus with diabetic chronic kidney disease; N18.3 - Chronic kidney disease, stage 3 ( moderate) (8) Esophageal varices Code(s): I85.00 - ESOPHAGEAL VARICES WITHOUT BLEEDING Status: Chronic (9) HTN (hypertension) Code(s): I10 - ESSENTIAL (PRIMARY) HYPERTENSION Status: Chronic Qualifiers: Hypertension type: unspecified Qualified Code(s): I10 - Essential (primary ) hypertension (10) S/P TIPS (transjugular intrahepatic portosystemic shunt) Status: Chronic - Plan Plan: Hepatic encephalopathy, resolved GCS initially 10 and now 15. Ammonia 178 on admission. - Lactulose given - Will continue and titrate to 3-4BMs/day. - Rocephin for SBP ppx. Will continue home med of aldactone. - Paracentesis yesterday - was performed as therapeutic tap originally scheduled on outpt basis - Fluid analysis was unfortunately not done prior to discard of the specimen - GI consulted - Recommended continuing lactulose here and at home upon discharge titrating to goal of 2-3 BM per day - Stopped IV octreotide and changed protonix to PO, started xifaxin - Talked to Dr. Schmid about hgb this morning, recommended attempting transfusion and if she continues to have drops will likely need to assess for transfer to [place] Symptomatic anemia with presyncope 2/2 presumed UGI bleed Melaontic stool and Hgb 6 on admission. S/p 2u PRBCS. - repeat H/H this morning dropped to 6.9 -> 1 u PRBC transfusing now - GI consulted Heaptic alcoholic cirrhosis w/ ascites - MELD score 23 - estimated 90 day mortality of 15%, will touch base with Dr. Schmid for management recs. - Patient states she follows with surgeons in for possible transplant but that she needs additional testing done. Will try to find out the patient's status for transplant. - Patient gets weekly paracentesis outpatient - scheduled for procedure today. Will continue to monitor this. On abx for SBP ppx. ZACHARY on CKD likely 2/2 acute blood loss. S/p 2uPRBCs - Cr slightly improved from yesterday. Patient with good urine output. Will continue to monitor Is/Os. DMII - ACHS, SSI Dispo: Inpt medical. Continue to trend H&H for evaluation of active bleed. Mentation has improved, will continue to monitor. Addendum - Attending - Attending Attestation Date/Time: 05/31/19 9115 I personally evaluated the patient and discussed the management with Dr. Rahman. I agree with the History, Examination, Assessment and Plan documented above with any addition or exceptions noted below. The patient's encephalopathy is improved. She is being transfused for anemia 2/ 2 gi bleed. GI is not going to scope pt as she has had multiple egd's. If she continues to bleed she may require transfer to the transplant center in [place].
[2019-05-31 06:32] LABS: #Eosinphils 0.3 thou/uL (0.0-0.7); #Lymphocytes 0.4 thou/uL (1.20-3.40); #Monocytes 0.3 thou/uL (0.11-0.59); #Neutrophils 1.3 thou/uL (1.40-6.50); %Basophils 1.1 % (0.0-1.0); %Eosinophils 11.5 % (0.0-10.0); %Lymphocytes 17.4 % (21.0-51.0); %Monocytes 14.4 % (0.0-10.0); %Neutrophils 55.6 % (42.0-75.0); Hemoglobin 6.9 g/dL (12.0-16.0); Mean Corpuscular HGB CONC 33.5 g/dL (32.0-36.0); Mean Corpuscular Hemoglobin 32.7 pg (27.0-31.0); Mean Corpuscular Volume 97.5 fL (78.0-98.0); Mean Platelet Volume 7.3 fL (7.4-10.4); Platelet Count 51 thou/uL (130-400); Red Blood Cell (RBC) Count 2.11 mill/uL (4.20-5.40); White Blood Cell (WBC) Count 2.4 thou/uL (4.8-10.8)
[2019-05-31 06:54] LABS: ALT (SGPT) 14 U/L (8-55); AST (SGOT) 27 U/L (5-34); Albumin 2.5 g/dL (3.5-5.0); Alkaline Phosphatase 78 U/L (40-110); Anion Gap 11 mmol/L (10-20); BUN (Urea Nitrogen) 18 mg/dL (9.8-20.1); Bilirubin, Total 1.9 mg/dL (0.2-1.2); Calc. Creatinine Clearance 88 mL/min (70-130); Calcium 7.7 mg/dL (7.8-10.44); Carbon Dioxide 19 mmol/L (22-29); Chloride 106 mmol/L (98-107); Estimated GFR-MDRD 40; Globulin 1.9 g/dL (2.4-3.5); Glucose 159 mg/dL (70-105); Potassium 3.9 mmol/L (3.5-5.1); Protein, Total 4.4 g/dL (6.0-8.3); Sodium 132 mmol/L (136-145)
[2019-05-31] MEDS: Spironolactone 100 MG TAB PO SCH ×3 (07:58→20:59)
[2019-05-31] MEDS: Rifaximin 550 MG TAB PO SCH ×3 (07:58→20:59)
[2019-05-31] MEDS: traMADol HCl 50 MG TAB PO PRN ×2 (08:13→17:55)
[2019-05-31] MEDS ORDERED: Cyclobenzaprine 10 MG TAB PO PRN (08:58)
[2019-05-31] MEDS ORDERED: PROVENTIL INHALER 6.7 G (200 INHALATIONS) INH PRN (08:58)
[2019-05-31] MEDS ORDERED: Furosemide 20 MG TAB PO SCH (09:00)
[2019-05-31] MEDS ORDERED: Cetirizine HCl 10 MG TAB PO SCH (09:00)
[2019-05-31] MEDS ORDERED: Non-Formulary Item 1 EACH (Cyanocobalamin (Vitamin B-12) [Vitamin B-12] 2,000 MCG) PO SCH (09:00)
[2019-05-31] MEDS ORDERED: Non-Formulary Item 1 EACH (Ferrous Sulfate [Ferrous Sulfate] 325 MG) PO SCH (09:00)
[2019-05-31] MEDS ORDERED: MAGNESIUM AMINO ACID CHELATE PO SCH (09:00)
[2019-05-31] MEDS: busPIRone HCl 10 MG TAB PO SCH (10:43)
[2019-05-31] MEDS: Folic Acid 1 MG TAB PO SCH (10:43)
[2019-05-31] MEDS: Ferrous Sulfate 325 MG TAB PO SCH (10:43)
[2019-05-31] MEDS: Furosemide 40 MG TAB PO SCH ×2 (10:43→14:07)
[2019-05-31] MEDS: Loratadine 10 MG TAB PO SCH (10:43)
[2019-05-31] MEDS: Midodrine HCl 5 MG TAB PO SCH ×3 (10:43→20:59)
[2019-05-31] MEDS: Magnesium Oxide 250 MG TAB PO SCH (10:44)
[2019-05-31] MEDS: Cyanocobalamin (Vitamin B-12) 1,000 MCG TAB PO SCH (10:48)
[2019-05-31 10:57] LABS: INR-International Normal Ratio 1.6; PTT 37.4 SEC (22.9-36.1); Prothrombin Time 18.9 SEC (12.0-14.7)
[2019-05-31 16:18] LABS: Hemoglobin 7.9 g/dL (12.0-16.0); Mean Corpuscular HGB CONC 33.6 g/dL (32.0-36.0); Mean Corpuscular Hemoglobin 32.5 pg (27.0-31.0); Mean Corpuscular Volume 96.6 fL (78.0-98.0); Mean Platelet Volume 6.8 fL (7.4-10.4); Platelet Count 68 thou/uL (130-400); RBC Distribution Width 16.2 % (11.5-14.5); Red Blood Cell (RBC) Count 2.45 mill/uL (4.20-5.40); White Blood Cell (WBC) Count 2.8 thou/uL (4.8-10.8)
[2019-05-31] MEDS ORDERED: Melatonin 3 MG TAB PO SCH (21:00)
[2019-05-31] MEDS: cefTRIAXone\\ROCEPHIN 2 GM in Sodium Chloride 0.9% 100 ML IVPB SCH (23:49)
[2019-06-01 03:33] LABS: INR-International Normal Ratio 1.5; PTT 32.5 SEC (22.9-36.1); Prothrombin Time 18.2 SEC (12.0-14.7)
[2019-06-01 03:54] LABS: Hemoglobin 7.9 g/dL (12.0-16.0); Mean Corpuscular HGB CONC 33.7 g/dL (32.0-36.0); Mean Corpuscular Hemoglobin 32.3 pg (27.0-31.0); Mean Corpuscular Volume 95.7 fL (78.0-98.0); Mean Platelet Volume 7.6 fL (7.4-10.4); Platelet Count 59 thou/uL (130-400); RBC Distribution Width 15.7 % (11.5-14.5); Red Blood Cell (RBC) Count 2.45 mill/uL (4.20-5.40); White Blood Cell (WBC) Count 3.3 thou/uL (4.8-10.8)
[2019-06-01 03:55] LABS: Anisocytosis SLIGHT = 6-15 cells (100X) (0-5/hpf); Band 4 % (5-11); Eosinophils 18 % (0-10); Lymphocytes 15 % (21-51); MDiff Complete? YES; Monocytes 5 % (0-10); Neutrophil 55 % (42-75); Platelet Morphology Comment Appears Decreased
[2019-06-01 04:07] LABS: Hemoglobin A1c 4.6 % (4.0-6.0)
[2019-06-01 04:19] LABS: ALT (SGPT) 14 U/L (8-55); AST (SGOT) 26 U/L (5-34); Albumin 2.6 g/dL (3.5-5.0); Alkaline Phosphatase 84 U/L (40-110); Anion Gap 9 mmol/L (10-20); BUN (Urea Nitrogen) 16 mg/dL (9.8-20.1); Bilirubin, Total 1.4 mg/dL (0.2-1.2); Calc. Creatinine Clearance 91 mL/min (70-130); Calcium 7.9 mg/dL (7.8-10.44); Carbon Dioxide 22 mmol/L (22-29); Chloride 104 mmol/L (98-107); Estimated GFR-MDRD 42; Glucose 193 mg/dL (70-105); Potassium 3.7 mmol/L (3.5-5.1); Protein, Total 4.6 g/dL (6.0-8.3); Sodium 131 mmol/L (136-145)
--- NOTE | 2019-06-01 06:06 | PDOC.FM ---
- Subjective Subjective: Pt doing well this morning. Denies any complications following transfusion yesterday. No N/V. Denies lightheadedness or dizziness. - Objective Vital Signs & Weight: Vital Signs (12 hours) Pulse Ox 05/31/19 21:00 100 Weight Weight 116 kg I&O: 05/30/19 05/31/19 06/01/19 06:59 06:59 06:59 Intake Total 400 930 Output Total 900 Balance -500 930 Result Diagrams: 06/01/19 03:22 06/01/19 03:22 Phys Exam - Physical Examination Constitutional: NAD HEENT: moist MMs, sclera anicteric Respiratory: no rales, no rhonchi, clear to auscultation bilateral Cardiovascular: RRR, no significant murmur early systolic murmur Gastrointestinal: soft, non-tender Musculoskeletal: no edema, pulses present Neurological: moves all 4 limbs Psychiatric: normal affect, A&O x 3 Dx/Plan (1) GI bleed Code(s): K92.2 - GASTROINTESTINAL HEMORRHAGE, UNSPECIFIED Status: Acute Qualifiers: GI bleed type/associated pathology: unspecified gastrointestinal hemorrhage type Qualified Code(s): K92.2 - Gastrointestinal hemorrhage, unspecified (2) Hepatic encephalopathy Code(s): K72.90 - HEPATIC FAILURE, UNSPECIFIED WITHOUT COMA Status: Acute (3) Portal hypertensive gastropathy Code(s): K76.6 - PORTAL HYPERTENSION; K31.89 - OTHER DISEASES OF STOMACH AND DUODENUM Status: Acute (4) Symptomatic anemia Code(s): D64.9 - ANEMIA, UNSPECIFIED Status: Acute (5) CKD (chronic kidney disease) stage 3, GFR 30-59 ml/min Code(s): N18.3 - CHRONIC KIDNEY DISEASE, STAGE 3 (MODERATE) Status: Chronic (6) Cirrhosis of liver with ascites Code(s): K74.60 - UNSPECIFIED CIRRHOSIS OF LIVER Status: Chronic Qualifiers: Hepatic cirrhosis type: unspecified hepatic cirrhosis Qualified Code(s): K74.60 - Unspecified cirrhosis of liver; R18.8 - Other ascites (7) DM type 2 (diabetes mellitus, type 2) Status: Chronic Qualifiers: Diabetes mellitus ad terminal makeup operator insulin use: without senior care use Diabetes mellitus complication status: with kidney complications Diabetes mellitus complication detail: with chronic kidney disease Chronic kidney disease stage : stage 3 (moderate) Qualified Code(s): E11.22 - Type 2 diabetes mellitus with diabetic chronic kidney disease; N18.3 - Chronic kidney disease, stage 3 ( moderate) (8) Esophageal varices Code(s): I85.00 - ESOPHAGEAL VARICES WITHOUT BLEEDING Status: Chronic (9) HTN (hypertension) Code(s): I10 - ESSENTIAL (PRIMARY) HYPERTENSION Status: Chronic Qualifiers: Hypertension type: unspecified Qualified Code(s): I10 - Essential (primary ) hypertension (10) S/P TIPS (transjugular intrahepatic portosystemic shunt) Status: Chronic - Plan Plan: Hepatic encephalopathy, resolved GCS initially 10 and now 15. Ammonia 178 on admission improved to 80's yesterday w/ improved mentation - Lactulose given - Will continue and titrate to 3-4BMs/day. - Rocephin for SBP ppx. Will continue home med of aldactone. - GI consulted - Recommended continuing lactulose here and at home upon discharge titrating to goal of 2-3 BM per day - Stopped IV octreotide and changed protonix to PO, started xifaxin - Talked to Dr. Schmid about hgb's rec attempting transfusing but if drops continue would need transfer to transplant center - With stable hgb today will likely be able to discharge Symptomatic anemia with presyncope Melaontic stool and Hgb 6 on admission. S/p 2u PRBCS. - transfused 1 unit PRBC yesterday, post Hgb was 7.9 that was stable again this morning, will continue to trend - GI consulted - Noted to have small hemorrhoid yesterday Heaptic alcoholic cirrhosis w/ ascites - MELD score 23 - estimated 90 day mortality of 15% - Patient states she follows with surgeons in for possible transplant but that she needs additional testing done - CM working w/ pt for transportation to center for her scheduled follow up - Patient gets weekly paracentesis outpatient ZACHARY on CKD likely 2/2 acute blood loss. S/p 3uPRBCs - Cr slightly improved from yesterday. Patient with good urine output. Will continue to monitor Is/Os. DMII - ACHS, SSI Dispo: Inpt medical. Continue to trend H&H for evaluation of active bleed. Mentation has improved, will continue to monitor. DC later today if pt remains asymp and hgb stable. Addendum - Attending - Attending Attestation Date/Time: 06/01/19 2559 I personally evaluated the patient and discussed the management with Dr. Rahman. I agree with the History, Examination, Assessment and Plan documented above with any addition or exceptions noted below. The patient's h/h is stable. She has had no more bleeding. She is stable for discharge. She does have f/u setup in [place] in 2 weeks.
--- NOTE | 2019-06-01 07:44 | PRG ---
DATE OF SERVICE: 05/31/2019 SUBJECTIVE: Ms. Gonzalez is noncompliant. She is doing well. She has had no confusion. She had several bowel movements after increasing her lactulose. Her hemoglobin did drop today, and she was given 1 unit of blood but she denies any overt bleeding or melena otherwise. MEDICATIONS: 1. Albuterol. 2. BuSpar. 3. Rocephin. 4. B12. 5. Flexeril. 6. Ferrous sulfate. 7. Folic acid. 8. Furosemide 40 mg b.i.d. 9. Lactulose 30 g b.i.d. 10. Claritin. 11. Mag oxide. 12. Melatonin. 13. Protamine. 14. Midodrine. 15. Protonix. 16. Rifaximin. 17. Aldactone 100 mg p.o. b.i.d. 18. Tramadol p.r.n. q.6. PHYSICAL EXAMINATION: VITAL SIGNS: Pulse 101, temperature 98, and blood pressure 118/76. GENERAL: She is resting comfortably in bed. Her is at the bedside. She is in no distress. HEENT: She has temporal wasting. LUNGS: Clear. HEART: Regular rate and rhythm. ABDOMEN: Slightly protuberant with shifting dullness and fluid wave, but no tense ascites. There is no tenderness. EXTREMITIES: Reveal trace edema. She has no asterixis. LABORATORY DATA: White count 3.4, hemoglobin 6.9 this morning, she was transfused, will recheck later today. Platelet count 51,000. Sodium 132, potassium 3.9, BUN and creatinine 18 and 1.39, bilirubin 1.9, AST and ALT are 27 and 14. Ammonia 78, down from 178, , total protein 4.4. ASSESSMENT: 1. Drop in hemoglobin overt bleeding. She has had known chronic blood loss secondary to her severe portal gastropathy. There has been no acute bleeding to indicate need for repeat endoscopy. 2. Encephalopathy, likely related to TIPS and liver disease. She is managed well but at times she becomes encephalopathic. She is no longer driving. I have to confirm this with her. Her nonsedating antihistamine, muscle relaxants might be contributing. We will discontinue these. She can continue the tramadol for pain and she can continue her BuSpar. She states she is in the process of re-setting up her followup for transplant evaluation in [place]. RECOMMENDATIONS: Agree with transfusion. Monitor H and H. If no further bleeding, she will be discharged home tomorrow. If she has further bleeding with further drop in hemoglobin, may reasonably consider a direct inpatient transfer to [place]. I have discussed issues with Dr. Rahman, who has been taking care of the patient. Job ID: [id number]
[2019-06-01 07:47] VITALS: TEMP 98.5
[2019-06-01] MEDS: Midodrine HCl 5 MG TAB PO SCH (09:04)
[2019-06-01] MEDS: Loratadine 10 MG TAB PO SCH ×2 (09:04→09:11)
[2019-06-01] MEDS: Folic Acid 1 MG TAB PO SCH (09:05)
[2019-06-01] MEDS: Rifaximin 550 MG TAB PO SCH (09:05)
[2019-06-01] MEDS: Ferrous Sulfate 325 MG TAB PO SCH (09:05)
[2019-06-01] MEDS: Cyanocobalamin (Vitamin B-12) 1,000 MCG TAB PO SCH (09:05)
[2019-06-01] MEDS: Magnesium Oxide 250 MG TAB PO SCH (09:05)
[2019-06-01] MEDS: busPIRone HCl 10 MG TAB PO SCH (09:05)
[2019-06-01] MEDS: Furosemide 40 MG TAB PO SCH (09:08)
[2019-06-01] MEDS: traMADol HCl 50 MG TAB PO PRN (09:23)
[2019-06-01] MEDS: Spironolactone 100 MG TAB PO SCH ×2 (09:28→12:34)
[2019-06-01 12:43] VITALS: BP 110/60
--- NOTE | 2019-06-02 03:38 | DIS ---
DATE OF ADMISSION: 05/29/2019 DATE OF DISCHARGE: 06/01/2019 RESIDENT: Elias Rahman MD. ADMITTING ATTENDING: Patrick Jenkins MD. CONSULTS: GI, Dr. Schmid. PROCEDURES: Ultrasound-guided paracentesis. PRIMARY DIAGNOSES: 1. Hepatic encephalopathy. 2. Portal hypertensive gastropathy. 3. Gastrointestinal bleed. 4. Alcoholic cirrhosis of the liver with ascites. SECONDARY DIAGNOSES: 1. Diabetes mellitus type 2. 2. Symptomatic anemia. 3. Hypertension. 4. Status post transjugular intrahepatic portosystemic shunt. DISCHARGE MEDICATIONS: 1. Aldactone 100 mg b.i.d. 2. Furosemide 40 mg b.i.d. 3. Midodrine 5 mg t.i.d. 4. ProAir 2 puffs q.6 hours p.r.n. 5. Folic acid 1 mg daily. 6. Zyrtec 10 mg daily. 7. Flexeril 10 mg t.i.d. 8. Cyanocobalamin 2000 mcg daily. 9. Tramadol 50 mg p.o. p.r.n. 10. Melatonin 10 mg at bedtime. 11. Magnesium 100 mg daily. 12. Lactulose 10 g packet daily. 13. Ferrous sulfate 325 mg daily. 14. BuSpar 10 mg daily. 15. Xifaxan 550 mg b.i.d. 16. Pantoprazole 40 mg daily. HISTORY OF PRESENT ILLNESS AND HOSPITAL COURSE: The patient is a 53-year-old female with past medical history significant for GI bleed, gastric ulcers, gastropathy, cirrhosis, [id number]-gmkussz anemia, DM-2, hypertension, CKD, hyponatremia and GERD. Patient presents for gastrointestinal bleed and altered mental status. On previous admission on 05/11, patient was found to have gastric ulcers and hypertensive gastropathy secondary to cirrhosis at which time she received 3 units of packed RBCs and her encephalopathy resolved once ammonia levels were reduced. Since admission, patient was seen by Dr. Schmid in the outpatient setting 1.5 weeks ago at which time hemoglobin was 7.5. The patient has a history of previous TIPS procedures with multiple revisions. The patient has been seen by transplant teams in [place], but states that she has failed to make her followup appointments due to difficulty with transportation. Upon arrival to the ED, the patient was found to have a hemoglobin of 6.0 and was experiencing hepatic encephalopathy. Lactulose was given and the patient had 1 melenic bowel movement. The patient was subsequently transfused 2 units of packed RBCs and admitted to the hospital for continued surveillance. Ammonia level at the time of admission was 178, correlating with the patient's acute hepatic encephalopathy. Lactulose was started b.i.d. with a titration goal of 3-[address] Neal saw the patient and agreed with current management and did not feel bleeding was secondary to varices as this was not seen on previous scope. Repeat hemoglobin the following day, improved to 8.8 before beginning to downtrend mid day to 7.7 and then further to 6.9 the following morning. The patient was then retransfused another unit of packed RBCs with post hemoglobin of 7.9, which remained stable the following morning of discharge at 7.9 again. Throughout her stay, the patient remained in contact with [facility] and worked with Case Management to arrange outpatient transportation to assure that the patient could make her followup appointments with the transplant team. With continued lactulose, the patient's ammonia decreased to 82 with the patient's mental status returning to her baseline. The patient was recommended to continue lactulose administration on outpatient basis with a titration goal of 3-4 bowel movements per day. She was also given return precautions including signs of increased GI bleeding or symptomatic anemia. The patient expressed understanding of these concerns and agreed to follow up on an outpatient basis. DISPOSITION: Stable. DISCHARGE INSTRUCTIONS: Location: Home. Diet: Carb conscious and heart healthy with low sodium. ACTIVITY: As tolerated. FOLLOWUP: 1. PCP Dr. Jenn Jeff within 7 days. 2. Gastroenterology, Dr. Jessee Schmid as directed. Job ID: [id number]
--- NOTE | 2019-06-02 15:22 | EKG ---
Test Reason : Blood Pressure : / mmHG Vent. Rate : 102 BPM Atrial Rate : 102 BPM P-R Int : 152 ms QRS Dur : 076 ms QT Int : 384 ms P-R-T Axes : 075 046 063 degrees QTc Int : 500 ms Sinus tachycardia Low voltage QRS Nonspecific ST abnormality Abnormal ECG Confirmed by SUPRIYA REHMAN, LOCO ([id number]), department editor DORIS CANCINO ([id number]) on 06/02/2019 3:22:07 PM Referred By: Confirmed By:LOCO EPPS MD
--- NOTE | 2019-06-03 03:25 | PQF ---
[facility] Pulmonary Disease Specialist Crystal Reports Winform Viewer KOKI KING KATHERINE MD [id number] CLINICAL DOCUMENTATION CLARIFICATION FORM: POST DISCHARGE Addendum to original discharge summary date: ____ Late entry note date: __ DATE: 06/03/19 ATTN: Arlette Dasilva Please exercise your independent, professional judgment in responding to the clarification form. Clinical indicators are provided on the bottom of this form for your review Can you please further specify the etiology of GI bleed based on the clinical indicators below? Please check appropriate box(s): [ ] Alcoholic Cirrhosis [ x ] Portal hypertensive gastropathy [ ] Post op complication from tips [ ] Other diagnosis please specify [ ] Unable to determine In addition, please specify: Present on Admission (POA): [ x ] Yes [ ] No [ ] Unable to determine For continuity of documentation, please document condition throughout progress notes and discharge summary. Thank You. CLINICAL INDICATORS - SIGNS / SYMPTOMS / LABS Family H and P 05/29 pg.1- Presents for GI bleed, AMS Family H and P 05/29 pg.1- He has previous TIPS procedure which was patent during visit H and P 05/31 Dr. Michelle pg.1 -Upper GI bleed, likely secondary to cirrhotic gastropathy. Consult Dr. Jenkins 05/30 pg.1- Severe portal hypertensive gastropathy. This was causing recurrent bleeding PN Dr. Hi 05/31 pg.2- Drop in hemoglobin ____ overt bleeding. She has had known chronic blood loss secondary to her severe portal gastropathy PN Dr. Hi 05/31 pg.2- Encephalopathy likely related to TIPS and liver disease DS pg.2- The patient has a history of previous TIPS procedures with multiple revision RISK FACTORS acute hepatic encephalopathy- DS pg.2 Gastro intestinal bleeding Symptomatic anemia Alcoholic liver cirrhosis with ascites- DS pg.1 Status post TIPS0- DS pg.1 TREATMENTS: Blood transfusion- Blood bank IV Fluids_ OCT H and H monitoring- Laboratory Paracentesis- 05/30 Dr. Shankar IV Fluids- OCT 30 (This form is maintained as a part of the permanent medical record) 2014 [employer]. All Rights Reserved Héctor [email or web address] [not provided] MTDD
--- NOTE | 2019-06-03 03:32 | PQF ---
[employer] Computer Sciences Professor Crystal Reports Winform NemoWHKOKI ROMAN KATHERINE MD [id number] CLINICAL DOCUMENTATION CLARIFICATION FORM: POST DISCHARGE Addendum to original discharge summary date: ____ Late entry note date: __ DATE: 06/03/19 ATTN: Arlette Dasilva Please exercise your independent, professional judgment in responding to the clarification form. Clinical indicators are provided on the bottom of this form for your review Cam you please further specify the specificity of Hepatic Encephalopathy? Please check appropriate box(s): [ ] Acute Alcoholic Hepatic Encephalopathy [ ] Acute on chronic Hepatic Encephalopathy, [ x ] Acute Hepatic Encephalopathy [ ] Other diagnosis please specify [ ] Unable to determine In addition, please specify: Present on Admission (POA): [ x ] Yes [ ] No [ ] Unable to determine For continuity of documentation, please document condition throughout progress notes and discharge summary. Thank You. CLINICAL INDICATORS - SIGNS / SYMPTOMS / LABS Family H and P 05/29 pg.1- Presents for GI bleed, AMS Family H and P 05/29 pg.5- SPENCER with recurrent ascites Family H and P 05/29 pg.5- Admitted for recurrent GI bleed, metabolic/hepatic encephalopathy Family H and P 05/29 pg.6 Hyperbilirubinemia -secondary to cirrhosis Family H and P 05/29 pg.8- "GCS 10 " RISK FACTORS Cirrhosis of liver with ascites Family H&P p1 05/29 Portal Hypertensive gastropathy - Family H&P p4 05/29 Hepatic Alcoholic Cirrhosis -Family H&P p8 05/29 TREATMENTS: Lactulose MAR Paracentesis- 05/30 Dr. Shankar IV Octreotide NOV 05 IV Fluids- 05/29 (This form is maintained as a part of the permanent medical record) 2014 [employer]. All Rights Reserved Héctor [email or web address] [not provided] MTDD
== END 2019-06-01 12:54 | disposition home or self-care (01) | DRG 441 ==
LOC: ERS 20:22 → ERHOLD 22:44 → T4-A 05-30 08:48
PROVIDERS: ADMIT Family Medicine; ATTEND Family Medicine
PROC: 30233N1 Transfusion of Nonautologous Red Blood Cells into Peripheral Vein, Percutaneous Approach (ICD-10-PCS; 2019-05-29)
PROC: 0W9G3ZZ Drainage of Peritoneal Cavity, Percutaneous Approach (ICD-10-PCS; principal; 2019-05-30)
DX: K76.6 Portal hypertension (principal); K72.00 Acute and subacute hepatic failure without coma; E87.1 Hypo-osmolality and hyponatremia; N17.9 Acute kidney failure, unspecified; D62 Acute posthemorrhagic anemia; F10.188 Alcohol abuse with other alcohol-induced disorder; K92.1 Melena; K70.31 Alcoholic cirrhosis of liver with ascites; E11.22 Type 2 diabetes mellitus with diabetic chronic kidney disease; I12.9 Hypertensive chronic kidney disease with stage 1 through stage 4 chronic kidney disease, or unspecified chronic kidney disease; D63.1 Anemia in chronic kidney disease; F32.9 Major depressive disorder, single episode, unspecified; K21.9 Gastro-esophageal reflux disease without esophagitis; J45.909 Unspecified asthma, uncomplicated; F41.9 Anxiety disorder, unspecified; K31.89 Other diseases of stomach and duodenum; N18.3 Chronic kidney disease, stage 3 (moderate); K76.0 Fatty (change of) liver, not elsewhere classified; Z91.19 Patient's noncompliance with other medical treatment and regimen; Z88.0 Allergy status to penicillin; Z88.5 Allergy status to narcotic agent; Z88.2 Allergy status to sulfonamides; Z88.8 Allergy status to other drugs, medicaments and biological substances; Z79.899 Other long term (current) drug therapy; Z87.891 Personal history of nicotine dependence
CPT/HCPCS: 36415; 36430; 49083; 51701; 70450; 80053; 80306; 80307; 81003; 82140; 82274; 82550; 83036; 83690; 84484; 85014; 85018; 85025; 85610; 85730; 86850; 86900; 86901; 87040; 93005; 96361; 96365; 96366; 96367; 96375; A4353; C9113; J0696; J2354; J3490; J7050; P9016; P9047

== ENCOUNTER 2019-06-06 09:38 | Day surgery (SDC) | payer OTHER ==
[2019-06-06 09:57] LABS: Hemoglobin 7.6 g/dL (12.0-16.0)
[2019-06-06] MEDS ORDERED: Albumin 25% 200 ML ONE (09:58)
[2019-06-06] MEDS ORDERED: Sodium Chloride 0.9% 20 ML ONE (09:59)
[2019-06-06 10:12] LABS: Anion Gap 10 mmol/L (10-20); BUN (Urea Nitrogen) 23 mg/dL (9.8-20.1); Calc. Creatinine Clearance 0 mL/min (70-130); Calcium 7.8 mg/dL (7.8-10.44); Carbon Dioxide 24 mmol/L (22-29); Chloride 101 mmol/L (98-107); Estimated GFR-MDRD 44; Glucose 276 mg/dL (70-105); Potassium 4.7 mmol/L (3.5-5.1); Sodium 130 mmol/L (136-145)
[2019-06-06 11:06] VITALS: BP 107/57; TEMP 98.6
--- NOTE | 2019-06-06 13:00 | ULT ---
Ultrasound-guided paracentesis: HISTORY: Symptomatic ascites FINDINGS: Informed consent obtained prior to the procedure. Preprocedural imaging demonstrated intrap eritoneal free fluid. An area was marked in the left lower quadrant mid axillary line, and then meticulously prepped and dr aped in normal sterile fashion and anesthetized with 1% buffered lidocaine. Albumin was administered intravenously during the exam as requested. With direct sonographic guidance, a 19-gauge needle and 5 Yoruba Poppermost Productionseh catheter were advanced into the abdomen. After the return of fluid, the catheter was advanced, and the needle was removed. Approximately 5.8 L of slightly cloudy yellow-colored fluid was aspirated. The introducer sheath was removed, and hemostasis was achieved with direct pressure. A dry sterile dressing was placed. The patient tolerated the procedure well and without immediate complication. IMPRESSION: Technically successful ultrasound-guided paracentesis.
== END 2019-06-06 11:40 | disposition home or self-care (01) ==
LOC: ULT 09:38
PROVIDERS: ATTEND Internal Medicine Gastroenterology
PROC: 0W9G3ZZ Drainage of Peritoneal Cavity, Percutaneous Approach (ICD-10-PCS; principal; 2019-06-06)
DX: K74.60 Unspecified cirrhosis of liver (principal); R18.8 Other ascites; J44.9 Chronic obstructive pulmonary disease, unspecified; E11.22 Type 2 diabetes mellitus with diabetic chronic kidney disease; I12.9 Hypertensive chronic kidney disease with stage 1 through stage 4 chronic kidney disease, or unspecified chronic kidney disease; N18.9 Chronic kidney disease, unspecified; F17.200 Nicotine dependence, unspecified, uncomplicated; Z88.0 Allergy status to penicillin; Z88.2 Allergy status to sulfonamides; Z88.5 Allergy status to narcotic agent; Z88.6 Allergy status to analgesic agent; Z88.8 Allergy status to other drugs, medicaments and biological substances; Z91.018 Allergy to other foods
CPT/HCPCS: 36415; 49083; 80048; 85014; 85018; 96523; 99211; G0463; P9047

== ENCOUNTER 2019-06-13 09:37 | Day surgery (SDC) | payer OTHER ==
[2019-06-12 10:45] VITALS: BMI 27.3
[2019-06-13] MEDS ORDERED: Sodium Chloride 0.9% 10 ML ONE (09:44)
[2019-06-13] MEDS ORDERED: Albumin 25% 200 ML ONE (09:44)
[2019-06-13] MEDS ORDERED: Sodium Bicarbonate 2.5 MEQ/5 ML VIAL ONE (09:44)
[2019-06-13 10:29] LABS: Hemoglobin 5.3 g/dL (12.0-16.0)
[2019-06-13 10:36] LABS: Anion Gap 11 mmol/L (10-20); BUN (Urea Nitrogen) 27 mg/dL (9.8-20.1); Calc. Creatinine Clearance 57 mL/min (70-130); Calcium 7.2 mg/dL (7.8-10.44); Carbon Dioxide 19 mmol/L (22-29); Chloride 98 mmol/L (98-107); Estimated GFR-MDRD 37; Glucose 267 mg/dL (70-105); Potassium 4.7 mmol/L (3.5-5.1); Sodium 123 mmol/L (136-145)
--- NOTE | 2019-06-13 11:41 | ULT ---
x ULTRASOUND-GUIDED PARACENTESIS THERAPEUTIC: DATE: 06/13/2019 HISTORY: 53-year-old female with ascites due to cirrhosis presents with abdominal distention, here for therape utic paracentesis for symptom relief.. TECHNIQUE: Signed informed consent obtained. A four-quadrant survey of abdomen performed. Site selected for puncture: Overlying skin prepared and draped in usual sterile fashion. 25-gauge needle used to apply buffered lidocaine superficially and deeply. 5 Sami Yueh catheter with stylette advanced into the pocket of free intraperitoneal fluid. After drainage, the Yueh catheter was removed. Patient tolerated the procedure well. No complications. FINDINGS: Volume of ascites prior to procedure:moderate-large. Volume of ascites fluid in the drainage pocket after drainage:Minimal. Volume of ascites fluid drained:6750 mL Appearance of ascites fluid: IMPRESSION: Successful therapeutic paracentesis, with drainage of 6.75 L of ascites fluid.
[2019-06-13 11:54] VITALS: BP 106/52; TEMP 98.2
== END 2019-06-13 11:15 | disposition home or self-care (01) ==
LOC: ULT 09:37
PROVIDERS: ATTEND Internal Medicine Gastroenterology
PROC: 0W9G3ZZ Drainage of Peritoneal Cavity, Percutaneous Approach (ICD-10-PCS; principal; 2019-06-13)
PROC: BW40ZZZ Ultrasonography of Abdomen (ICD-10-PCS; principal; 2019-06-13)
DX: K74.60 Unspecified cirrhosis of liver (principal); R18.8 Other ascites; F41.9 Anxiety disorder, unspecified; Z79.899 Other long term (current) drug therapy; Z88.0 Allergy status to penicillin; Z88.2 Allergy status to sulfonamides; Z88.5 Allergy status to narcotic agent; Z88.6 Allergy status to analgesic agent; Z91.018 Allergy to other foods; Z91.048 Other nonmedicinal substance allergy status
CPT/HCPCS: 49083; 80048; 85014; 85018; J1642; P9047

== ENCOUNTER 2019-06-13 11:21 | Emergency (ER) | payer OTHER ==
[2019-06-13 12:27] LABS: Bacteria/HPF 4+ HPF (None Seen); Bilirubin Negative (Negative); Blood, Urine Trace (Negative); Clarity Clear (Clear); Glucose, Urine (Dipstick) Normal (Negative); Leukocyte 250 Leu/uL (Negative); Nitrite Negative (Negative); Protein, Urine (Dipstick) Negative (Neg-Trace); RBC/HPF 0-3 HPF (0-3); Urobilinogen Normal mg/dL (Less than 2); WBC/HPF 21-50 HPF (0-3)
[2019-06-13] MEDS ORDERED: Fentanyl 100 MCG/2 ML VIAL ONE (13:09)
[2019-06-13 17:02] LABS: #Eosinphils 0.3 thou/uL (0.0-0.7); #Lymphocytes 0.6 thou/uL (1.20-3.40); #Monocytes 0.5 thou/uL (0.11-0.59); #Neutrophils 2.1 thou/uL (1.40-6.50); %Basophils 1.4 % (0.0-1.0); %Eosinophils 8.7 % (0.0-10.0); %Lymphocytes 17.6 % (21.0-51.0); %Monocytes 13.6 % (0.0-10.0); %Neutrophils 58.7 % (42.0-75.0); Mean Corpuscular HGB CONC 33.7 g/dL (32.0-36.0); Mean Corpuscular Hemoglobin 33.2 pg (27.0-31.0); Mean Corpuscular Volume 98.5 fL (78.0-98.0); Mean Platelet Volume 7.3 fL (7.4-10.4); Platelet Count 68 thou/uL (130-400); RBC Distribution Width 14.4 % (11.5-14.5); Red Blood Cell (RBC) Count 1.81 mill/uL (4.20-5.40); White Blood Cell (WBC) Count 3.5 thou/uL (4.8-10.8)
[2019-06-13 17:18] LABS: Anion Gap 10 mmol/L (10-20); BUN (Urea Nitrogen) 26 mg/dL (9.8-20.1); Calc. Creatinine Clearance 0 mL/min (70-130); Calcium 7.5 mg/dL (7.8-10.44); Carbon Dioxide 20 mmol/L (22-29); Chloride 99 mmol/L (98-107); Estimated GFR-MDRD 45; Glucose 140 mg/dL (70-105); Potassium 4.3 mmol/L (3.5-5.1); Sodium 125 mmol/L (136-145)
[2019-06-13] MEDS ORDERED: Heparin 1,000 UNITS/ML VIAL ONE (18:37)
== END 2019-06-13 19:05 | disposition home or self-care (01) ==
LOC: ERS 11:21
DX: D64.9 Anemia, unspecified (principal); E87.1 Hypo-osmolality and hyponatremia; J45.909 Unspecified asthma, uncomplicated; K21.9 Gastro-esophageal reflux disease without esophagitis; F41.9 Anxiety disorder, unspecified; F32.9 Major depressive disorder, single episode, unspecified; F17.210 Nicotine dependence, cigarettes, uncomplicated; Z79.899 Other long term (current) drug therapy; Z79.51 Long term (current) use of inhaled steroids
CPT/HCPCS: 36415; 36430; 81003; 81015; 82274; 86850; 86900; 86901; 96374; 96375; J1642; J1644; J3010; P9016

== ENCOUNTER 2019-06-20 09:29 | Day surgery (SDC) | payer OTHER ==
[2019-06-20] MEDS ORDERED: Albumin 25% 200 ML ONE (09:39)
[2019-06-20] MEDS ORDERED: Sodium Chloride 0.9% 20 ML ONE (10:53)
[2019-06-20] MEDS ORDERED: Sodium Chloride 0.9% 10 ML ONE (11:28)
[2019-06-20 11:34] LABS: Hemoglobin 6.6 g/dL (12.0-16.0)
[2019-06-20 12:29] LABS: Anion Gap 11 mmol/L (10-20); BUN (Urea Nitrogen) 25 mg/dL (9.8-20.1); Calc. Creatinine Clearance 0 mL/min (70-130); Calcium 7.9 mg/dL (7.8-10.44); Carbon Dioxide 20 mmol/L (22-29); Chloride 101 mmol/L (98-107); Estimated GFR-MDRD 37; Glucose 336 mg/dL (70-105); Potassium 3.9 mmol/L (3.5-5.1); Sodium 128 mmol/L (136-145)
--- NOTE | 2019-06-20 13:05 | ULT ---
PREPROCEDURE DIAGNOSIS: Ascites POST PROCEDURE DIAGNOSIS: Same PROCEDURE: Ultrasound-guided paracentesis CORRECTION LIEUTENANT: Mario ANESTHESIA: 6 mL of buffered 1% lidocaine. SPECIMEN: 5.7 L of straw-colored fluid TECHNIQUE: Prior to the procedure, the risks and benefits of an ultrasound guided paracentesis were explained to the patient which consented fully to the procedure. The area of the largest fluid collection was seen in the right lower quadrant of the abdomen. This a sylvie was prepped and draped in the usual sterile fashion. Lidocaine was used to anesthetize the skin and soft tissues down towards the peritoneal cavity. The p eritoneum was anesthetized. A small skin incision was made for passage of the 140 Proofeh needle and catheter. This device was then placed using ultrasound guidance into the peritoneal cavity. The needle was removed after return of fluid. The catheter was then connected to multiple Vacutainer bottles. A total of 5.7 L was removed. No residual fluid is seen in this region of the peritoneal cavity. IMPRESSION: Status post successful ultrasound-guided paracentesis
[2019-06-20 13:53] VITALS: BP 114/61; TEMP 98.6
== END 2019-06-20 12:30 | disposition home or self-care (01) ==
LOC: ULT 09:29
PROVIDERS: ATTEND Internal Medicine Gastroenterology
PROC: BW40ZZZ Ultrasonography of Abdomen (ICD-10-PCS; principal; 2019-06-20)
PROC: 0W9G3ZZ Drainage of Peritoneal Cavity, Percutaneous Approach (ICD-10-PCS; principal; 2019-06-20)
DX: K74.60 Unspecified cirrhosis of liver (principal); R18.8 Other ascites; I12.9 Hypertensive chronic kidney disease with stage 1 through stage 4 chronic kidney disease, or unspecified chronic kidney disease; E11.22 Type 2 diabetes mellitus with diabetic chronic kidney disease; N18.9 Chronic kidney disease, unspecified; D63.1 Anemia in chronic kidney disease; J44.9 Chronic obstructive pulmonary disease, unspecified; F41.9 Anxiety disorder, unspecified; F32.9 Major depressive disorder, single episode, unspecified; G89.29 Other chronic pain; M54.9 Dorsalgia, unspecified; Z79.899 Other long term (current) drug therapy; Z87.891 Personal history of nicotine dependence; Z88.0 Allergy status to penicillin; Z88.2 Allergy status to sulfonamides; Z88.5 Allergy status to narcotic agent; Z88.8 Allergy status to other drugs, medicaments and biological substances; Z91.018 Allergy to other foods
CPT/HCPCS: 49083; 80048; 85014; 85018; P9047

== ENCOUNTER 2019-06-22 09:02 | Day surgery (SDC) | payer OTHER ==
[2019-06-22] MEDS ORDERED: Sodium Chloride 0.9% 20 ML ONE (09:11)
[2019-06-22] MEDS ORDERED: Acetaminophen 325 MG TAB PO SCH (09:45)
[2019-06-22 15:50] VITALS: BP 137/63; TEMP 97.7
== END 2019-06-22 15:50 | disposition home or self-care (01) ==
LOC: ONC/OP 09:02
PROVIDERS: ATTEND Internal Medicine Gastroenterology
DX: D50.9 Iron deficiency anemia, unspecified (principal); K74.60 Unspecified cirrhosis of liver; Z88.0 Allergy status to penicillin; Z88.2 Allergy status to sulfonamides; Z88.5 Allergy status to narcotic agent; Z88.8 Allergy status to other drugs, medicaments and biological substances; Z91.018 Allergy to other foods
CPT/HCPCS: 36430; 86850; 86900; 86901; J1642; P9016

== ENCOUNTER 2019-06-23 12:54 | Inpatient (IN) | payer OTHER ==
[2019-06-23 13:46] LABS: Base Excess-Venous -6.2 mmol/L (-2.0 to 3.0); Bicarbonate (HCO3v) 17.1 mmol/L (22.0-28.0); CO2 Tension (PvCO2) 25.5 mmHg (40.0-50.0); Calcium, Ionized 1.05 mmol/L (See Comments:); Chloride 105 mmol/L (98-107); Hemoglobin - Calc 8.2 g/dL (12.0-16.0); Potassium 4.6 mmol/L (3.5-5.1); Sodium 134 mmol/L (138-145); T. Carbon Dioxide 17.9 mmol/L (22.0-28.0); vO2 Saturation-calc 73.7 % (60.0-85.0)
[2019-06-23 13:52] LABS: Hemoglobin 8.8 g/dL (12.0-16.0); Mean Corpuscular HGB CONC 32.8 g/dL (32.0-36.0); Mean Corpuscular Hemoglobin 32.1 pg (27.0-31.0); Mean Corpuscular Volume 98.1 fL (78.0-98.0); Mean Platelet Volume 7.8 fL (7.4-10.4); Platelet Count 81 thou/uL (130-400); Red Blood Cell (RBC) Count 2.75 mill/uL (4.20-5.40); White Blood Cell (WBC) Count 4.1 thou/uL (4.8-10.8)
[2019-06-23 13:55] LABS: INR-International Normal Ratio 1.3; PTT 34.4 SEC (22.9-36.1); Prothrombin Time 16.4 SEC (12.0-14.7)
[2019-06-23 14:08] LABS: ALT (SGPT) 19 U/L (8-55); AST (SGOT) 36 U/L (5-34); Albumin 2.9 g/dL (3.5-5.0); Alkaline Phosphatase 88 U/L (40-110); Anion Gap 14 mmol/L (10-20); BUN (Urea Nitrogen) 28 mg/dL (9.8-20.1); Bilirubin, Total 3.3 mg/dL (0.2-1.2); Calc. Creatinine Clearance 0 mL/min (70-130); Calcium 8.3 mg/dL (7.8-10.44); Carbon Dioxide 19 mmol/L (22-29); Chloride 103 mmol/L (98-107); Estimated GFR-MDRD 37; Globulin 2.3 g/dL (2.4-3.5); Glucose 173 mg/dL (70-105); Magnesium 1.9 mg/dL (1.6-2.6); Potassium 4.7 mmol/L (3.5-5.1); Protein, Total 5.2 g/dL (6.0-8.3); Sodium 131 mmol/L (136-145)
[2019-06-23 14:13] LABS: Anisocytosis SLIGHT = 6-15 cells (100X) (0-5/hpf); Band 6 % (5-11); Eosinophils 4 % (0-10); Hypochromia SLIGHT = 6-15 cells (100X) (0-5/hpf); Lymphocytes 2 % (21-51); MDiff Complete? YES; Monocytes 3 % (0-10); Neutrophil 85 % (42-75); Platelet Morphology Comment Appears Decreased
--- NOTE | 2019-06-23 14:22 | CT ---
EXAM: CT brain without contrast HISTORY: Altered mental status and weakness COMPARISON: 05/29/2019 TECHNIQUE: Multiple contiguous axial images were obtained and a CT of the brain without contrast. FINDINGS: The brain is normal in morphology and attenuation without focal lesions or confluent areas of infarction. There is no evidence of hydrocephalus, intracranial hemorrhage, or extra-axial fluid collection. The calvarium and overlying soft tissues are unremarkable. The visualized paranasal sinuses and masto id air cells are well aerated. IMPRESSION: No evidence of acute intracranial abnormality
[2019-06-23] MEDS ORDERED: Pantoprazole 40 MG VIAL ONE (15:04)
[2019-06-23] MEDS ORDERED: cefTRIAXone\\ROCEPHIN 1 GM VIAL ONE (15:04)
--- NOTE | 2019-06-23 15:12 | RAD ---
XR Chest 1 View Portable HISTORY: Altered mental status, nonbloody stools COMPARISON: 05/04/2019 FINDINGS: The heart size is normal. Right-sided central venous catheter remains in place. The lungs a re well expanded without focal areas of consolidation, pneumothorax or pleural effusions. IMPRESSION: No radiographic evidence of acute cardiopulmonary process.
[2019-06-23] MEDS ORDERED: Ondansetron ODT 4 MG TAB PO PRN (17:12)
[2019-06-23] MEDS ORDERED: Ondansetron PF 4 MG/2 ML Vial IVP PRN (17:12)
--- NOTE | 2019-06-23 17:28 | PDOC.EVN ---
Event Note - Event Note Event Note: Date/Time: 06/23/19 1720 I personally performed or re-performed the physical examination and medical decision making. I have verified all resident documentation or findings, including history, physical exam and/or medical decision making. 53 yo WF PMH Cirrhosis with known ESLD. Presents via EMS for AMS. Patient altered and unable to provide reliable hx. States she does not remember when she last took lactulose. Patient w/ known hx of noncompliance. Exam unremarkable except for tachycardia to 120s. Labs significant for ammonia 130. EKG Sinus tachycardia no ST changes. Imaging negative. MELD 22 (baseline). GI consulted in ER. Restart lactulose. trend labs. fall precautions. Admit for hepatic encephalopathy. Inpatient. >2 midnights. Await GI recs. See policy intern H&P for further details.
[2019-06-23] MEDS ORDERED: Lactated Ringer's 1,000 ML IV SCH (17:30)
--- NOTE | 2019-06-23 17:33 | PDOC.FPRHP ---
- History of Present Illness Chief Complaint: AMS History of Present Illness: 53yo female h/o cirrhosis, ascites, esophageal varices presents with AMS. History unobtainable from pt 2/2 mental status, A/O x1 to person only. Pt continues to state her name only. Denies any pain, fever/chills, n/v. Unable to state situation. Presented via EMS for AMS. Known to Dr. Schmid, was seen yesterday, transfused 2u pRBC. Paracentesis on . Receives weekly young. Is on liver transplant list in [place]. Been admitted to family medicine service in recent past for similar presentation 2/2 end-stage liver disease and hepatic encephalopathy. ED Course: In ED, 1L NS, protonix IV 40, Rocephin 1g, CXR neg, CT head neg, trop neg x1, MELD 22. Amonia 134. FOBT neg. - Allergies/Adverse Reactions Allergies Allergy/AdvReac Type Severity Reaction Status Date / Time acetaminophen [From Tylenol] Allergy Verified 06/23/19 18:07 aspirin Allergy Verified 06/23/19 18:07 butorphanol [From Stadol] Allergy Verified 06/23/19 18:07 codeine Allergy Verified 06/23/19 18:07 morphine Allergy Verified 06/23/19 18:07 Penicillins Allergy vomiting Verified 06/23/19 18:07 silver Allergy Verified 06/23/19 18:07 [From Tegaderm AG Mesh] Sulfa (Sulfonamide Allergy Verified 06/23/19 18:07 Antibiotics) persimmon Allergy Uncoded 06/13/19 11:56 - Home Medications Medication Instructions Recorded Confirmed Type Spironolactone [Aldactone] 100 mg PO BID 01/10/19 06/23/19 History Albuterol Sulfate [Proair HFA] 2 puff INH Q6HR PRN 05/30/19 06/23/19 History Cetirizine HCl [Zyrtec] 10 mg PO HS 05/30/19 06/23/19 History Cyanocobalamin (Vitamin B-12) 2,000 mcg PO DAILY 05/30/19 06/23/19 History [Vitamin B-12] Cyclobenzaprine [Flexeril] 10 mg PO TID PRN 05/30/19 06/23/19 History Ferrous Sulfate 325 mg PO TID 05/30/19 06/23/19 History Folic Acid [Folvite] 1 mg PO DAILY 05/30/19 06/23/19 History Lactulose [Kristalose] 20 gm PO BID 05/30/19 06/23/19 History Magnesium Amino Acid Chelate 100 mg PO DAILY 05/30/19 06/23/19 History [Magnesium] Melatonin 10 mg PO HS 05/30/19 06/23/19 History Midodrine HCl 5 mg PO TID 05/30/19 06/23/19 History Rifaximin [Xifaxan] 550 mg PO BID 05/30/19 06/23/19 History busPIRone HCl [Buspar] 10 mg PO BID 05/30/19 06/23/19 History traMADol HCl [Tramadol HCl] 50 mg PO PRN PRN 05/30/19 06/23/19 History Esomeprazole Magnesium [NexIUM] 40 mg PO DAILY-AC 06/23/19 06/23/19 History Fluticasone Propionate [Flonase 2 spray EA NARE DAILY 06/23/19 06/23/19 History Nasal Albia] Furosemide [Lasix] 40 mg PO DAILY-AC 06/23/19 06/23/19 History Pantoprazole [Protonix] 40 mg PO BID 06/23/19 06/23/19 History - History PMHx: Anxiety, DMII, GERD, Cirrhosis, Ascites, HTN PSHx: TIPS 06/09/2018 with revisions in December 2018 and February 2019. Esophageal varices repairs with unknown dates. FHx: unable to obtain 2/2 AMS Social: former smoker, unable to obtain 2/2 AMS - Review of Systems ROS unobtainable: due to mental status - Vital signs BP: 113/73 HR: 113 RR: 16 Tmax: 98.3 Pox: 100% on RA Wt: 77kg - Physical Exam Constitutional: NAD, other (A/O x1, states name only, unaware of place, time, or situation) HEENT: PERRLA, EOMI, no scleral icterus, normal nasal mucosa, oropharynx clear, other (dry mucous membranes) Neck: supple, trachea midline Heart: RRR, normal S1/S2, no murmurs/rubs/gallops, no edema Lungs: CTAB, no respiratory distress, good air movement, no rales/rhonchi, no wheezing Abdomen: soft, other (mildly distended, non-tender, no paritoneal signs, postive fluid wave, caput medusa.) Neurological: no focal deficit, other (a/o x1 to person only) Psychiatric: other (A/o x1 to person only) FMR H&P: Results - Labs Result Diagrams: 06/24/19 04:33 06/24/19 04:33 Lab results: WBC 4.1 thou/uL (4.8-10.8) L 06/23/19 13:36 Hgb 8.8 g/dL (12.0-16.0) L 06/23/19 13:36 Hct 26.9 % (36.0-47.0) L 06/23/19 13:36 MCV 98.1 fL (78.0-98.0) H 06/23/19 13:36 Plt Count 81 thou/uL (130-400) L 06/23/19 13:36 Band Neuts % (Manual) 6 % (5-11) 06/23/19 13:36 VBG pCO2 25.5 mmHg (40.0-50.0) L 06/23/19 13:45 VBG pO2 36.7 mmHg (35.0-45.0) 06/23/19 13:45 Sodium 131 mmol/L (136-145) L 06/23/19 13:36 Potassium 4.7 mmol/L (3.5-5.1) 06/23/19 13:36 Chloride 103 mmol/L (98-107) 06/23/19 13:36 Carbon Dioxide 19 mmol/L (22-29) L 06/23/19 13:36 BUN 28 mg/dL (9.8-20.1) H 06/23/19 13:36 Creatinine 1.49 mg/dL (0.6-1.1) H 06/23/19 13:36 Glucose 173 mg/dL (70-105) H 06/23/19 13:36 Calcium 8.3 mg/dL (7.8-10.44) 06/23/19 13:36 Total Bilirubin 3.3 mg/dL (0.2-1.2) H 06/23/19 13:36 AST 36 U/L (5-34) H 06/23/19 13:36 ALT 19 U/L (8-55) 06/23/19 13:36 Alkaline Phosphatase 88 U/L (40-110) 06/23/19 13:36 Ammonia 134 umol/L (18-72) H 06/23/19 13:36 Serum Total Protein 5.2 g/dL (6.0-8.3) L 06/23/19 13:36 Albumin 2.9 g/dL (3.5-5.0) L 06/23/19 13:36 FMR H&P: A/P - Problem List (1) Hepatic encephalopathy Current Visit: Yes Status: Acute Priority: High Code(s): K72.90 - HEPATIC FAILURE, UNSPECIFIED WITHOUT COMA (2) Anemia Current Visit: Yes Status: Chronic Code(s): D64.9 - ANEMIA, UNSPECIFIED Qualifiers: Anemia type: unspecified type Qualified Code(s): D64.9 - Anemia, unspecified (3) CKD (chronic kidney disease) stage 3, GFR 30-59 ml/min Current Visit: No Status: Chronic Priority: Medium Code(s): N18.3 - CHRONIC KIDNEY DISEASE, STAGE 3 (MODERATE) (4) Cirrhosis of liver with ascites Current Visit: Yes Status: Chronic Priority: High Code(s): K74.60 - UNSPECIFIED CIRRHOSIS OF LIVER Qualifiers: Hepatic cirrhosis type: unspecified hepatic cirrhosis Qualified Code(s): K74.60 - Unspecified cirrhosis of liver; R18.8 - Other ascites Comment: SPENCER with recurrent ascites, plan for US guided paracentesis in am, GI consult pending. (5) DM type 2 (diabetes mellitus, type 2) Current Visit: No Status: Chronic Qualifiers: Diabetes mellitus prison insulin use: without prison use Diabetes mellitus complication status: with kidney complications Diabetes mellitus complication detail: with chronic kidney disease Chronic kidney disease stage : stage 3 (moderate) Qualified Code(s): E11.22 - Type 2 diabetes mellitus with diabetic chronic kidney disease; N18.3 - Chronic kidney disease, stage 3 ( moderate) (6) Esophageal varices Current Visit: No Status: Chronic Code(s): I85.00 - ESOPHAGEAL VARICES WITHOUT BLEEDING (7) GERD (gastroesophageal reflux disease) Current Visit: No Status: Chronic Code(s): K21.9 - GASTRO-ESOPHAGEAL REFLUX DISEASE WITHOUT ESOPHAGITIS Qualifiers: Esophagitis presence: without esophagitis Qualified Code(s): K21.9 - Gastro -esophageal reflux disease without esophagitis (8) HTN (hypertension) Current Visit: No Status: Chronic Code(s): I10 - ESSENTIAL (PRIMARY) HYPERTENSION Qualifiers: Hypertension type: unspecified Qualified Code(s): I10 - Essential (primary ) hypertension (9) S/P TIPS (transjugular intrahepatic portosystemic shunt) Current Visit: No Status: Chronic - Plan 53yo F with h/o Cirrhosis with ascites, esophageal varices, Chronic Anemia, DMII , and CKD who presents with hepatic encephalopathy #Hepatic Encephalopathy - AMS, A/O x1 to person only. States she has not been taking lactulose at home - PE negative for SBP, denies any pain. VSS. WBC 4.1 - NH4 134 - Will cont home lactulose and titrate to 2-3 soft BM daily, monitor clinical status - Dr. Cota with GI consulted, known to Dr. Schmid, apprec recs #Cirrhosis with ascites - MELD 22, will monitor labs in AM and trend - On transplant list, [place] - Known to Dr. Schmid, GI consulted apprec recs - Cont home lactulose, aldactone, rifamine #h/o esophageal varices - cont home protonix, no s/s acute bleed, VSS, will monitor #Chronic Anemia - Hb 6.6 -> 8.8 s/p 2u pRBC on 06/22 as outpatient - cont home iron - will monitor #CKDIIIb - Cr 1.49, GFR 37, appears at baseline - Will check mg and phos - will monitor #Chronic Thombocytopenia - Plt 81, appears at baseline, will monitor #DMII - hyperglycemic protocal, ACHS accuchecks, monitor #Anxiety/depression - cont buspar Code: Full - need to obtain when pt mental status improves and/or contact Next of kin Diet: Swallow study, renal low protein VTE: SCDs, high risk for GI bleed and fall IVF: LR @100cc/hr Disposition/LOS: Admit to medical for acute hepatic encephalopathy. Cont home meds, titrate lactulose, trend labs. GI consulted, apprec recs. PCP: [facility]. Anticipate hospitalization >48hours. FMR H&P: Upper Level - Pertinent history 53 yo F here with complaint of AMS. She has a hx of etoh related cirrhosis and is well known to this service. She has multiple recent hospitalizations for hepatic encephalopathy related to non compliance with her lactulose. She had a paracentesis by GI, Dr Schmid, earlier this week and received 2u PRBC yesterday. In the ER today she was noted to have an ammonia of 134. Cr and Hb appear to be at baseline. PMHx Etoh cirrhosis HTN Multiple GI bleeds Surgical hx Variceal banding Social Hx Current smoker Hx of etoh abuse - Pertinent findings See internet sales consultant note for full ROS, PE, vitals, and labs ROS cannot obtain dt mental status PE General confused, A&O to name at times HEENT NCAT CV RRR, no murmur Resp CTA, no respiratory distress Abd distended. Soft non tender. Dullness to percussion about half way up her abdomen. Extremities no edema, equal pedal pulses Neuro no focal deficits, CN II-XII intact - Plan Date/Time: 06/23/19 4856 I, Reggie Lambetr DO, have evaluated this patient and agree with findings/plan as outlined by internet sales consultant resident. Pertinent changes/additions are listed here. 1.Metabolic encephalopathy -Restart home lactulose, titrate if needed to produce 2-3 semisolid stools per day -MELD 22, this is baseline -GI consulted from ER -Recheck ammonia in am 2.Cirrhosis -Restart home meds -No bleeds or acute changes in labs at this time. 3.HTN -Home meds 4.Pancytopenia -At baseline PPx SCD Diet NPO, start low protein diet when she is appropriate to eat Code Full Addendum - Attending - Attending Attestation Date/Time: 06/24/19 1023 I personally evaluated the patient and discussed the management with Dr. Lambert /Edis I agree with the History, Examination, Assessment and Plan documented above with any addition or exceptions noted below. See my event note for additional details.
[2019-06-23] MEDS ORDERED: Dextrose 50% Abboject 50 ML SYRINGE SLOW IVP PRN (17:38)
[2019-06-23] MEDS ORDERED: Dextrose 5% in Water 1,000 ML IV PRN (17:38)
[2019-06-23 17:47] LABS: Phosphorus 3.8 mg/dL (2.3-4.7)
[2019-06-23] MEDS: Sodium Chloride 0.9% 1,000 ML IV SCH (17:47)
[2019-06-23 17:49] VITALS: BMI 30.4
[2019-06-23] MEDS ORDERED: PROVENTIL INHALER 6.7 G (200 INHALATIONS) INH PRN (18:35)
[2019-06-23] MEDS: Ferrous Sulfate 325 MG TAB PO SCH (21:07)
[2019-06-23] MEDS: Rifaximin 550 MG TAB PO SCH (21:14)
[2019-06-23] MEDS: Spironolactone 100 MG TAB PO SCH (21:14)
[2019-06-23] MEDS: Midodrine HCl 5 MG TAB PO SCH (21:14)
[2019-06-24] MEDS: traMADol HCl 50 MG TAB PO PRN ×2 (01:24→22:38)
[2019-06-24] MEDS: Sodium Chloride 0.9% 1,000 ML IV SCH ×3 (01:49→14:40)
[2019-06-24 04:51] LABS: INR-International Normal Ratio 1.4; Prothrombin Time 17.3 SEC (12.0-14.7)
[2019-06-24 04:52] LABS: PTT 39.9 SEC (22.9-36.1)
[2019-06-24 05:20] LABS: ALT (SGPT) 19 U/L (8-55); AST (SGOT) 28 U/L (5-34); Albumin 2.4 g/dL (3.5-5.0); Alkaline Phosphatase 71 U/L (40-110); Anion Gap 12 mmol/L (10-20); BUN (Urea Nitrogen) 28 mg/dL (9.8-20.1); Bilirubin, Total 2.7 mg/dL (0.2-1.2); Calc. Creatinine Clearance 66 mL/min (70-130); Carbon Dioxide 19 mmol/L (22-29); Chloride 108 mmol/L (98-107); Estimated GFR-MDRD 41; Glucose 120 mg/dL (70-105); Potassium 3.8 mmol/L (3.5-5.1); Protein, Total 4.4 g/dL (6.0-8.3); Sodium 135 mmol/L (136-145)
[2019-06-24 05:43] LABS: Band 2 % (5-11); Eosinophils 10 % (0-10); Hemoglobin 7.5 g/dL (12.0-16.0); Lymphocytes 17 % (21-51); MDiff Complete? YES; Mean Corpuscular HGB CONC 33.9 g/dL (32.0-36.0); Mean Corpuscular Hemoglobin 32.7 pg (27.0-31.0); Mean Corpuscular Volume 96.3 fL (78.0-98.0); Mean Platelet Volume 7.3 fL (7.4-10.4); Monocytes 18 % (0-10); Neutrophil 52 % (42-75); Platelet Count 76 thou/uL (130-400); Platelet Morphology Comment Appears Decreased; RBC Distribution Width 14.8 % (11.5-14.5); Reactive Lymphocytes 1 % (0-10); Red Blood Cell (RBC) Count 2.28 mill/uL (4.20-5.40); White Blood Cell (WBC) Count 3.4 thou/uL (4.8-10.8)
--- NOTE | 2019-06-24 06:36 | PDOC.FM ---
- Subjective Subjective: NAEO. Patient axox3. States this happened because she stopped taking her lactulose due to getting blood outpatient and not wanting to be going to the bathroom. Patient states she has not had a BM since being here - Objective MAR Reviewed: Yes Vital Signs & Weight: Vital Signs (12 hours) Temp Pulse Resp BP Pulse Ox 06/24/19 05:00 97.8 F 97 16 108/71 100 06/24/19 01:00 98.1 F 102 H 18 108/68 99 06/23/19 21:14 98.3 F 105 H 16 120/71 98 Weight Weight 85.411 kg I&O: 06/22/19 06/23/19 06/24/19 06:59 06:59 06:59 Intake Total 1320 Output Total 650 Balance 670 Result Diagrams: 06/24/19 04:33 06/24/19 04:33 Phys Exam - Physical Examination Constitutional: NAD HEENT: moist MMs sclera icteric Neck: full ROM Respiratory: clear to auscultation bilateral Cardiovascular: RRR, no significant murmur, no rub Gastrointestinal: soft, non-tender, positive bowel sounds distended Musculoskeletal: pulses present Neurological: moves all 4 limbs Psychiatric: normal affect, A&O x 3 Skin: no rash, normal turgor, cap refill <2 seconds Dx/Plan (1) Hepatic encephalopathy Code(s): K72.90 - HEPATIC FAILURE, UNSPECIFIED WITHOUT COMA Status: Acute (2) Anemia Code(s): D64.9 - ANEMIA, UNSPECIFIED Status: Chronic Qualifiers: Anemia type: unspecified type Qualified Code(s): D64.9 - Anemia, unspecified (3) Cirrhosis of liver with ascites Code(s): K74.60 - UNSPECIFIED CIRRHOSIS OF LIVER Status: Chronic Qualifiers: Hepatic cirrhosis type: unspecified hepatic cirrhosis Qualified Code(s): K74.60 - Unspecified cirrhosis of liver; R18.8 - Other ascites (4) ZACHARY (acute kidney injury) Code(s): N17.9 - ACUTE KIDNEY FAILURE, UNSPECIFIED Status: Acute (5) Anxiety Code(s): F41.9 - ANXIETY DISORDER, UNSPECIFIED Status: Acute (6) CKD (chronic kidney disease) stage 3, GFR 30-59 ml/min Code(s): N18.3 - CHRONIC KIDNEY DISEASE, STAGE 3 (MODERATE) Status: Chronic (7) Cirrhosis Code(s): K74.60 - UNSPECIFIED CIRRHOSIS OF LIVER Status: Chronic Qualifiers: Ascites presence: with ascites (8) DM type 2 (diabetes mellitus, type 2) Status: Chronic Qualifiers: Diabetes mellitus mcfp insulin use: without intermodal truck driver use Diabetes mellitus complication status: with kidney complications Diabetes mellitus complication detail: with chronic kidney disease Chronic kidney disease stage : stage 3 (moderate) Qualified Code(s): E11.22 - Type 2 diabetes mellitus with diabetic chronic kidney disease; N18.3 - Chronic kidney disease, stage 3 ( moderate) (9) Depression Code(s): F32.9 - MAJOR DEPRESSIVE DISORDER, SINGLE EPISODE, UNSPECIFIED Status : Chronic (10) GERD (gastroesophageal reflux disease) Code(s): K21.9 - GASTRO-ESOPHAGEAL REFLUX DISEASE WITHOUT ESOPHAGITIS Status: Chronic Qualifiers: Esophagitis presence: without esophagitis Qualified Code(s): K21.9 - Gastro -esophageal reflux disease without esophagitis (11) HTN (hypertension) Code(s): I10 - ESSENTIAL (PRIMARY) HYPERTENSION Status: Chronic Qualifiers: Hypertension type: unspecified Qualified Code(s): I10 - Essential (primary ) hypertension (12) Hyponatremia Code(s): E87.1 - HYPO-OSMOLALITY AND HYPONATREMIA Status: Chronic (13) S/P TIPS (transjugular intrahepatic portosystemic shunt) Status: Chronic - Plan Plan: 53yo F with h/o Cirrhosis with ascites, esophageal varices, Chronic Anemia, DMII , and CKD who presents with hepatic encephalopathy #Hepatic Encephalopathy - AMS, A/O x1 to person only on admission. States she has not been taking lactulose at home. Improved today. - PE negative for SBP, denies any pain. VSS. WBC 4.1 - NH4 134 - Will cont home lactulose and titrate to 2-3 soft BM daily, monitor clinical status - Dr. Cota with GI consulted, known to Dr. Schmid, apprec recs #Cirrhosis with ascites - MELD 22, will monitor labs in AM and trend - On transplant list, [place] - Known to Dr. Schmid, GI consulted apprec recs - Cont home lactulose, aldactone, rifamine #h/o esophageal varices - cont home protonix, no s/s acute bleed, VSS, will monitor #Chronic Anemia - Hb 6.6 -> 8.8 s/p 2u pRBC on 06/22 as outpatient. Hgb down to 7.5 this AM. - cont home iron - will monitor #CKDIIIb - Cr 1.49, GFR 37 on admission, appears at baseline - will monitor #Chronic Thombocytopenia - Plt 81 on admission, appears at baseline, will monitor #DMII - hyperglycemic protocal, ACHS accuchecks, monitor #Anxiety/depression - cont buspar Code: Full - need to obtain when pt mental status improves and/or contact Next of kin Diet: Swallow study, renal low protein VTE: SCDs, high risk for GI bleed and fall IVF: LR @100cc/hr Disposition/LOS: Cont home meds, titrate lactulose, trend labs. GI consulted, apprec recs. PCP: CARLY. Anticipate hospitalization >48hours.
[2019-06-24] MEDS ORDERED: Furosemide 20 MG TAB PO SCH (07:30)
[2019-06-24] MEDS: Ferrous Sulfate 325 MG TAB PO SCH ×3 (08:52→20:41)
[2019-06-24] MEDS: Pantoprazole 40 MG VIAL IVP SCH (08:53)
[2019-06-24] MEDS: Cyanocobalamin (Vitamin B-12) 1,000 MCG TAB PO SCH (08:53)
[2019-06-24] MEDS: Spironolactone 100 MG TAB PO SCH ×2 (08:53→20:41)
[2019-06-24] MEDS: Midodrine HCl 5 MG TAB PO SCH ×3 (08:53→20:41)
[2019-06-24] MEDS: Rifaximin 550 MG TAB PO SCH ×2 (08:53→20:41)
[2019-06-24] MEDS: Folic Acid 1 MG TAB PO SCH (08:53)
[2019-06-24] MEDS ORDERED: FLU VACC QS2019-20(6MOS UP)/PF 60 MCG/0.5 ML SYRINGE IM ONE (09:00)
[2019-06-24] MEDS ORDERED: traMADol HCl 50 MG TAB PO SCH (09:00)
[2019-06-24] MEDS: Fluticasone Propionate Nasal Spray 16 gm Bottle NASAL SCH (11:05)
--- NOTE | 2019-06-24 14:31 | PRG ---
DATE OF SERVICE: 06/24/2019 Please see the note from Dr. Cárdenas, for which I agree. The patient has hepatic encephalopathy. She does sometimes take lactulose and that is basically what has happened at home. She came in encephalopathic. Often gets GI bleed, so was scoped and we are waiting on GI's recommendations as her ammonia level is already down. Mental status seems to be back to normal, though still not having bowel movements. We are going to increase the lactulose and wait to see what GI decides. Job ID: [id number]
[2019-06-24] MEDS: HumaLOG 300 UNITS/3 ML VIAL SC PRN (20:39)
[2019-06-24] MEDS: Melatonin 3 MG TAB PO PRN (22:38)
--- NOTE | 2019-06-24 23:22 | CON ---
DATE OF CONSULTATION: 06/24/2019 REASON FOR CONSULTATION: 1. Confusion, altered mental status, and hepatic encephalopathy. 2. History of tarry stools and anemia. HISTORY OF PRESENT ILLNESS: Jesse Gonzalez is a very pleasant 53-year-old female, who has a history of liver cirrhosis, portal hypertension, ascites and also has had esophageal varices in the past. She has had recent banding done in the past. She also noted a portal hypertensive gastropathy. The patient has been going to liver transplant program in [place]. Apparently, MELD score is not high enough to place her on a liver transplant program. The patient has had a TIPS procedure in the past and has had revision done a couple of months ago. In spite of this, she still comes back with some bleeding off and on. The patient was hospitalized in April [address] was [address] Marc Neal. As per the operative report of Dr. Marc Neal, she has no varicosities in esophagus, but she has some scarring from the previous therapeutic measures for variceal bleeding. She did have portal hypertensive gastropathy. This was done in April 2019. The patient also has ascites and has had a paracentesis on a weekly to biweekly basis. The patient is supposed to be taking Kristalose 30 mg twice a day for her encephalopathy; however this week on Wednesday and , she did not take it because she was supposed to go and have blood test on and she did not want to have problem going to the bathroom. She quit taking the lactulose for 2 days, Wednesday and . She came to the ER because of some confusion and altered mental status. Serum ammonia level was elevated. She was placed back on lactulose. She told the ER doctor she has had some black tarry stool, but however, she tells me the stools are actually greenish and not black. The patient denies abdominal pain, nausea, or vomiting. She had mild anemia on admission. CBC showed WBC 4100, hemoglobin 8.8, it dropped to 7.5 slowly today, hematocrit 26.9, today is 21.9, MCV is 96.3, platelet count 76,000. When I saw her this late morning, she is back to her original baseline status. She is awake, alert, and communicative. She knows her name, date of , year, month, day and where she is at, etc. She has had no stool, but she tells me because she has nothing to eat that she is not having any stool. Anyway, she had lactulose. No relevant history. MEDICAL ILLNESSES: 1. Liver cirrhosis, portal hypertension. 2. Esophageal varices, status post banding in the past. 3. Portal hypertensive gastropathy. 4. Status post variceal banding. 5. Status post large volume paracentesis. 6. History of TIPS procedure x2 in [place]. 7. Chronic anemia. 8. Chronic kidney disease. 9. Type 2 diabetes mellitus. 10. Acid reflux. 11. Hypertension. MEDICATIONS LIST: Reviewed. ALLERGIES: DENIES ANY ALLERGIES. SOCIAL HISTORY: The patient is a former smoker. Does not drink alcohol. SYSTEM REVIEW: Denies abdominal pain, nausea, vomiting, but her altered mental status is back to baseline. No specific complaints. PHYSICAL EXAMINATION: GENERAL: She appears comfortable. She is awake, alert, and communicative. She is in no distress. She is afebrile. VITAL SIGNS: Her pulse is 70, blood pressure is 110/70. HEENT: Conjunctivae clear. NECK: Supple. No adenitis or thyromegaly noted. CARDIOVASCULAR: First and second heart sounds heard. LUNGS: Clear to auscultation. ABDOMEN: Distended with ascites. Soft. Nontender. No organomegaly. No masses. EXTREMITIES: Reveal no edema. 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 Altered mental status is back to baseline and she is awake, alert, oriented to time, place, and person. LABORATORY DATA: Does show anemia on admission, but she has had anemia from before. Going back to a couple of weeks ago on 06/13/2019, she had a hemoglobin of 5.3, hematocrit of 15.5, it came to 6.6 on 06/20/2019. Yesterday, hemoglobin 8.8, dropping to 7.5. However, she had no more bleeding. She insists that she is not having any black stool and she has had more of dark green stool. Chemistry panel; sodium 135, chloride 108, bicarb 19, potassium 3.8, BUN is 28, creatinine 1.35, glucose 120, calcium 8, AST 28, ALT 19, alkaline phosphatase 71. Her ammonia level was high yesterday. IMPRESSION: A 53-year-old female with liver cirrhosis, portal hypertension, ascites. The patient has likely hepatic encephalopathy because of skipping the dose for a couple of days. She is back on lactulose and she is back to baseline status. She actually feels very hungry and she wants to eat. She also insists that she is not having a black tarry stool and she has a more of dark green stool. RECOMMENDATION: 1. 4 g sodium diet. 2. Continue lactulose. 3. Follow up labs. If she does well without any major problems, she may improve over the next 24 to 48 hours. Job ID: [id number]
[2019-06-25 00:21] LABS: Bacteria/HPF 4+ HPF (None Seen); Bilirubin Negative (Negative); Blood, Urine Negative (Negative); Clarity Turbid (Clear); Glucose, Urine (Dipstick) 70 mg/dL (Negative); Leukocyte 500 Leu/uL (Negative); Nitrite Negative (Negative); Protein, Urine (Dipstick) Negative (Neg-Trace); RBC/HPF 0-3 HPF (0-3); WBC/HPF 21-50 HPF (0-3)
[2019-06-25 00:24] LABS: Urine Culture Reflex No No
[2019-06-25] MEDS: HumaLOG 300 UNITS/3 ML VIAL SC PRN ×4 (05:11→21:11)
[2019-06-25 05:53] LABS: Band 1 % (5-11); Eosinophils 9 % (0-10); Hemoglobin 7.1 g/dL (12.0-16.0); Lymphocytes 17 % (21-51); MDiff Complete? YES; Mean Corpuscular HGB CONC 32.5 g/dL (32.0-36.0); Mean Corpuscular Volume 95.4 fL (78.0-98.0); Mean Platelet Volume 6.8 fL (7.4-10.4); Monocytes 16 % (0-10); Neutrophil 57 % (42-75); Platelet Count 76 thou/uL (130-400); Platelet Morphology Comment Appears Decreased; Red Blood Cell (RBC) Count 2.28 mill/uL (4.20-5.40); White Blood Cell (WBC) Count 3.4 thou/uL (4.8-10.8)
[2019-06-25 05:57] LABS: ALT (SGPT) 16 U/L (8-55); AST (SGOT) 27 U/L (5-34); Albumin 2.4 g/dL (3.5-5.0); Alkaline Phosphatase 77 U/L (40-110); Anion Gap 9 mmol/L (10-20); BUN (Urea Nitrogen) 21 mg/dL (9.8-20.1); Bilirubin, Total 2.3 mg/dL (0.2-1.2); Calc. Creatinine Clearance 65 mL/min (70-130); Calcium 7.9 mg/dL (7.8-10.44); Carbon Dioxide 19 mmol/L (22-29); Chloride 110 mmol/L (98-107); Estimated GFR-MDRD 40; Glucose 199 mg/dL (70-105); Protein, Total 4.4 g/dL (6.0-8.3); Sodium 134 mmol/L (136-145)
--- NOTE | 2019-06-25 06:49 | PDOC.FM ---
- Subjective Subjective: NAEO. Patient AXOX3. States she had one BM last night that was dark green and not bloody. She denies any SOB, lightheadedness, NV. - Objective MAR Reviewed: Yes Vital Signs & Weight: Vital Signs (12 hours) Temp Pulse Resp BP Pulse Ox 06/25/19 05:00 98.7 F 110 H 18 123/74 98 06/25/19 01:00 98.3 F 108 H 18 115/75 98 06/24/19 20:42 98.2 F 108 H 18 113/75 100 Weight Weight 85.411 kg I&O: 06/23/19 06/24/19 06/25/19 06:59 06:59 06:59 Intake Total 1320 1765 Output Total 650 Balance 670 1765 Result Diagrams: 06/25/19 04:55 06/25/19 04:55 Phys Exam - Physical Examination Constitutional: NAD HEENT: moist MMs sclera mildly icteric Neck: supple, full ROM Respiratory: clear to auscultation bilateral Cardiovascular: RRR, no significant murmur, no rub Gastrointestinal: soft, non-tender, positive bowel sounds mild distention Musculoskeletal: pulses present trace edema b/l Neurological: non-focal Psychiatric: normal affect, A&O x 3 Skin: no rash, normal turgor, cap refill <2 seconds Dx/Plan (1) Hepatic encephalopathy Code(s): K72.90 - HEPATIC FAILURE, UNSPECIFIED WITHOUT COMA Status: Acute (2) Anemia Code(s): D64.9 - ANEMIA, UNSPECIFIED Status: Chronic Qualifiers: Anemia type: unspecified type Qualified Code(s): D64.9 - Anemia, unspecified (3) Cirrhosis of liver with ascites Code(s): K74.60 - UNSPECIFIED CIRRHOSIS OF LIVER Status: Chronic Qualifiers: Hepatic cirrhosis type: unspecified hepatic cirrhosis Qualified Code(s): K74.60 - Unspecified cirrhosis of liver; R18.8 - Other ascites (4) ZACHARY (acute kidney injury) Code(s): N17.9 - ACUTE KIDNEY FAILURE, UNSPECIFIED Status: Acute (5) Anxiety Code(s): F41.9 - ANXIETY DISORDER, UNSPECIFIED Status: Acute (6) CKD (chronic kidney disease) stage 3, GFR 30-59 ml/min Code(s): N18.3 - CHRONIC KIDNEY DISEASE, STAGE 3 (MODERATE) Status: Chronic (7) Cirrhosis Code(s): K74.60 - UNSPECIFIED CIRRHOSIS OF LIVER Status: Chronic Qualifiers: Ascites presence: with ascites (8) DM type 2 (diabetes mellitus, type 2) Status: Chronic Qualifiers: Diabetes mellitus detention insulin use: without detention use Diabetes mellitus complication status: with kidney complications Diabetes mellitus complication detail: with chronic kidney disease Chronic kidney disease stage : stage 3 (moderate) Qualified Code(s): E11.22 - Type 2 diabetes mellitus with diabetic chronic kidney disease; N18.3 - Chronic kidney disease, stage 3 ( moderate) (9) Depression Code(s): F32.9 - MAJOR DEPRESSIVE DISORDER, SINGLE EPISODE, UNSPECIFIED Status : Chronic (10) GERD (gastroesophageal reflux disease) Code(s): K21.9 - GASTRO-ESOPHAGEAL REFLUX DISEASE WITHOUT ESOPHAGITIS Status: Chronic Qualifiers: Esophagitis presence: without esophagitis Qualified Code(s): K21.9 - Gastro -esophageal reflux disease without esophagitis (11) HTN (hypertension) Code(s): I10 - ESSENTIAL (PRIMARY) HYPERTENSION Status: Chronic Qualifiers: Hypertension type: unspecified Qualified Code(s): I10 - Essential (primary ) hypertension (12) Hyponatremia Code(s): E87.1 - HYPO-OSMOLALITY AND HYPONATREMIA Status: Chronic (13) S/P TIPS (transjugular intrahepatic portosystemic shunt) Status: Chronic - Plan Plan: 53yo F with h/o Cirrhosis with ascites, esophageal varices, Chronic Anemia, DMII , and CKD who presents with hepatic encephalopathy #Hepatic Encephalopathy, improved - AMS, A/O x1 to person only on admission. States she had not been taking lactulose at home. - PE negative for SBP, denies any pain. VSS. WBC 4.1 - Will cont home lactulose and titrate to 2-3 soft BM daily, monitor clinical status - Dr. Cota with GI consulted, known to Dr. Schmid, apprec recs #Cirrhosis with ascites - MELD 22, will monitor labs in AM and trend. MELD 17 on 06/24. - On transplant list, [place] - Known to Dr. Schmid, GI consulted apprec recs - Cont home lactulose, aldactone, rifamine #h/o esophageal varices - cont home protonix, no s/s acute bleed, VSS, will monitor #Chronic Anemia - Hb 6.6 -> 8.8 s/p 2u pRBC on 06/22 as outpatient. Hgb down to 7.5 -> 7.1. - cont home iron - will monitor. Patient will likely need a transfusion. Currently asymptomatic. #CKDIIIb - Cr 1.49, GFR 37 on admission, appears at baseline - will monitor #Chronic Thombocytopenia - Plt 81 on admission, appears at baseline, will monitor. #DMII - hyperglycemic protocal, ACHS accuchecks, monitor #Anxiety/depression - cont buspar Code: Full - need to obtain when pt mental status improves and/or contact Next of kin Diet: Swallow study, renal low protein VTE: SCDs, high risk for GI bleed and fall Disposition/LOS: Cont home meds, titrate lactulose, trend labs. GI consulted, apprec recs. PCP: CARLY. Anticipate hospitalization >48hours. Possible dc today or tomorrow. Case discussed with Florentino
[2019-06-25] MEDS: Midodrine HCl 5 MG TAB PO SCH ×3 (08:32→21:04)
[2019-06-25] MEDS: Cyanocobalamin (Vitamin B-12) 1,000 MCG TAB PO SCH (08:32)
[2019-06-25] MEDS: Rifaximin 550 MG TAB PO SCH ×2 (08:32→21:05)
[2019-06-25] MEDS: Ferrous Sulfate 325 MG TAB PO SCH ×3 (08:32→21:04)
[2019-06-25] MEDS: Folic Acid 1 MG TAB PO SCH (08:32)
[2019-06-25] MEDS: Spironolactone 100 MG TAB PO SCH ×2 (08:32→21:05)
[2019-06-25] MEDS: Fluticasone Propionate Nasal Spray 16 gm Bottle NASAL SCH (08:33)
[2019-06-25] MEDS: Pantoprazole 40 MG VIAL IVP SCH (08:33)
[2019-06-25 10:26] LABS: INR-International Normal Ratio 1.4; PTT 38.4 SEC (22.9-36.1); Prothrombin Time 16.9 SEC (12.0-14.7)
[2019-06-25] MEDS ORDERED: Furosemide 40 MG TAB PO SCH (11:00)
--- NOTE | 2019-06-25 12:46 | PRG ---
DATE OF SERVICE: 06/25/2019 SUBJECTIVE: This is a 53-year-old female with liver cirrhosis, ascites, portal hypertension. She presented with altered mental status, confusion, and also evidence of encephalopathy. She is back to baseline status now. She is awake, alert, oriented to time, place, and person. She has no abdominal pain, no nausea or vomiting. Her stools are dark green and no active bleeding seen. Her blood count dropped down from 7.5 to 7.1. She had a couple of stools yesterday, but she had no stool today. OBJECTIVE: VITAL SIGNS: Afebrile, pulse is 102, blood pressure is 116/79. CARDIOVASCULAR AND LUNGS: Within normal limits. ABDOMEN: Distended with ascites. Abdomen is nontender. LABORATORY DATA: CBC: WBC 3400, hemoglobin dropping down to 7.1, hematocrit 28.7. Chem-7 is normal. BUN is 21, creatinine 1.38, glucose 199, calcium 7.9, albumin 2.4. RECOMMENDATIONS: 1. Continue lactulose. 2. Transfuse 1 unit of packed RBCs. 3. Symptomatic treatment. Job ID: [id number]
[2019-06-25] MEDS: Nitrofurantoin ORAL SUSP. 25 MG/5 ML UDCUP PO SCH ×2 (12:56→18:08)
[2019-06-25] MEDS: Sodium Chloride 0.9% 1,000 ML IV SCH (17:10)
[2019-06-25] MEDS ORDERED: Clopidogrel Bisulfate 75 MG TAB ONE (18:24)
[2019-06-25] MEDS: Melatonin 3 MG TAB PO PRN (21:10)
[2019-06-26] MEDS: Nitrofurantoin ORAL SUSP. 25 MG/5 ML UDCUP PO SCH ×3 (01:00→13:14)
[2019-06-26] MEDS: HumaLOG 300 UNITS/3 ML VIAL SC PRN ×2 (05:56→13:14)
--- NOTE | 2019-06-26 06:12 | PDOC.FM ---
- Subjective Subjective: Patient states she feels okay this morning. Denies any complaints. Says that she had 2 BMs overnight, both brown in appearance. After one of the BMs she had bright red blood on toilet paper, she has known hemorrhoids and says this is not new. - Objective Vital Signs & Weight: Vital Signs (12 hours) Temp Pulse Resp BP Pulse Ox 06/26/19 04:25 98.5 F 65 16 115/73 95 06/26/19 02:46 99 06/25/19 20:12 98.2 F 81 16 116/69 100 06/25/19 20:00 100 Weight Weight 85.411 kg I&O: 06/24/19 06/25/19 06/26/19 06:59 06:59 06:59 Intake Total 1320 1765 2225 Output Total 650 1775 Balance 670 1765 450 Result Diagrams: 06/26/19 06:12 06/26/19 06:12 Phys Exam - Physical Examination Constitutional: NAD HEENT: moist MMs, sclera anicteric Neck: no JVD, full ROM Respiratory: no wheezing, no rales, no rhonchi, clear to auscultation bilateral Cardiovascular: RRR, no significant murmur Gastrointestinal: soft, non-tender, no distention, positive bowel sounds mild fluid wave present Musculoskeletal: no edema, pulses present Neurological: normal sensation, moves all 4 limbs Psychiatric: normal affect, A&O x 3 Skin: no rash, normal turgor Dx/Plan (1) Hepatic encephalopathy Code(s): K72.90 - HEPATIC FAILURE, UNSPECIFIED WITHOUT COMA Status: Acute (2) Anemia Code(s): D64.9 - ANEMIA, UNSPECIFIED Status: Chronic Qualifiers: Anemia type: unspecified type Qualified Code(s): D64.9 - Anemia, unspecified - Plan Plan: 53yo F with h/o Cirrhosis with ascites, esophageal varices, Chronic Anemia, DMII , and CKD who presents with hepatic encephalopathy #Hepatic Encephalopathy, improved - AMS, A/O x1 to person only on admission. States she had not been taking lactulose at home. As of 06/25/19 patient A/O x 3, back to baseline. - PE negative for SBP, denies any pain. VSS. WBC 4.1 - Will cont home lactulose and titrate to 2-3 soft BM daily, monitor clinical status - Dr. Cota with GI consulted, known to Dr. Schmid, apprec recs #Cirrhosis with ascites - MELD 22, will monitor labs in AM and trend. MELD 17 on 06/24. - On transplant list in [place] - Known to Dr. Schmid, GI consulted--Dr. Cota, apprec recs - Cont home lactulose, aldactone, rifamine #h/o esophageal varices - cont home protonix, no s/s acute bleed, VSS, will monitor #Chronic Anemia - Hb 6.6 -> 8.8 s/p 2u pRBC on 06/22 as outpatient, 1 u pRBC on 06/24 as inpatient, Hgb down to 7.5 -> 7.1 (06/25) -> back to 8.1 (06/26) - cont home iron, currently asymptomatic - continue to monitor AM CBC #CKDIIIb - Cr 1.49, GFR 37 on admission, appears at baseline - will monitor #Chronic Thombocytopenia - Plt 81 on admission, appears at baseline, will monitor. #DMII - hyperglycemic protocal, ACHS accuchecks, monitor #Anxiety/depression - continue home Buspar Code: Full Diet: Renal low protein VTE: SCDs, high risk for GI bleed and fall PCP: CARLY-Dr. Jeff Disposition: Stable, continue lactulose, trend H/H. GI consulted, appreciate recs. Anticipate discharge in <48hours.
[2019-06-26 06:35] LABS: #Eosinphils 0.4 thou/uL (0.0-0.7); #Lymphocytes 0.7 thou/uL (1.20-3.40); #Monocytes 0.6 thou/uL (0.11-0.59); #Neutrophils 2.7 thou/uL (1.40-6.50); %Basophils 0.5 % (0.0-1.0); %Eosinophils 8.3 % (0.0-10.0); %Lymphocytes 15.3 % (21.0-51.0); %Neutrophils 62.9 % (42.0-75.0); Hemoglobin 8.1 g/dL (12.0-16.0); Mean Corpuscular HGB CONC 34.4 g/dL (32.0-36.0); Mean Corpuscular Hemoglobin 32.6 pg (27.0-31.0); Mean Corpuscular Volume 94.6 fL (78.0-98.0); Mean Platelet Volume 7.6 fL (7.4-10.4); Platelet Count 64 thou/uL (130-400); RBC Distribution Width 14.7 % (11.5-14.5); Red Blood Cell (RBC) Count 2.49 mill/uL (4.20-5.40); White Blood Cell (WBC) Count 4.3 thou/uL (4.8-10.8)
[2019-06-26 06:54] LABS: ALT (SGPT) 16 U/L (8-55); AST (SGOT) 23 U/L (5-34); Albumin 2.3 g/dL (3.5-5.0); Alkaline Phosphatase 71 U/L (40-110); Anion Gap 10 mmol/L (10-20); BUN (Urea Nitrogen) 20 mg/dL (9.8-20.1); Bilirubin, Total 2.3 mg/dL (0.2-1.2); Calc. Creatinine Clearance 77 mL/min (70-130); Carbon Dioxide 18 mmol/L (22-29); Chloride 108 mmol/L (98-107); Estimated GFR-MDRD 49; Globulin 2.1 g/dL (2.4-3.5); Glucose 196 mg/dL (70-105); Potassium 3.7 mmol/L (3.5-5.1); Protein, Total 4.4 g/dL (6.0-8.3); Sodium 132 mmol/L (136-145)
[2019-06-26] MEDS ORDERED: Magnesium Chloride 64 MG TAB PO SCH (09:00)
[2019-06-26] MEDS: Rifaximin 550 MG TAB PO SCH (09:18)
[2019-06-26] MEDS: Cyanocobalamin (Vitamin B-12) 1,000 MCG TAB PO SCH (09:18)
[2019-06-26] MEDS: Ferrous Sulfate 325 MG TAB PO SCH (09:18)
[2019-06-26] MEDS: Spironolactone 100 MG TAB PO SCH (09:18)
[2019-06-26] MEDS: Fluticasone Propionate Nasal Spray 16 gm Bottle NASAL SCH (09:19)
[2019-06-26] MEDS: Midodrine HCl 5 MG TAB PO SCH (09:19)
[2019-06-26] MEDS: Folic Acid 1 MG TAB PO SCH (09:19)
[2019-06-26] MEDS: Pantoprazole 40 MG VIAL IVP SCH (09:19)
--- NOTE | 2019-06-26 12:48 | PRG ---
DATE OF SERVICE: 06/26/2019 Ms. Gonzalez is a patient, well known to our service with advanced cirrhosis. She was admitted with hepatic encephalopathy, which is currently resolved. She is on a transplant list. She also sees the GI Service for occasional paracenteses related to her recalcitrant ascites. In the event, she has recovered from encephalopathy, will likely be discharged later today. Job ID: [id number]
[2019-06-26 13:20] VITALS: BP 101/65; TEMP 98.2
--- NOTE | 2019-06-26 13:57 | PRG ---
DATE OF SERVICE: 06/25/2019 Please see the note from Dr. Cárdenas, for which I agree. The patient was seen, evaluated, and discussed with the residents by bedside. Basically doing well with the hepatic encephalopathy. Mental status seems to be improving, but was just not getting bowel movements to the frequency that we want, so we are going to increase her lactulose and I am afraid to send her out sooner. Also had a very large urinary retention and we are going to have to re-address that and start bladder she is now having a urinary catheterization replaced. Job ID: [id number]
--- NOTE | 2019-06-26 21:47 | DIS ---
DATE OF ADMISSION: 06/23/2019 DATE OF DISCHARGE: 06/26/2019 RESIDENT: Yamila Randhawa DO ADMITTING ATTENDING: Gary Nayak MD DISCHARGE ATTENDING: Tone Sky MD CONSULTS: 1. GI, Dr. Cota. 2. Palliative Care Team, Leonela Alexander NP. 3. Case Management. 4. Physical Therapy. PROCEDURES PERFORMED: 1. Brain CT on June 23, 2019: No evidence of acute intracranial abnormality. 2. Chest x-ray on June 23, 2019: No evidence of acute cardiopulmonary process. PRIMARY DIAGNOSIS: Hepatic encephalopathy. SECONDARY DIAGNOSES: 1. Cirrhosis with ascites. 2. History of esophageal varices. 3. Chronic anemia. 4. Chronic kidney disease, stage 3B. 5. Chronic thrombocytopenia. 6. Diabetes mellitus, type 2. 7. Anxiety. 8. Depression. DISCHARGE MEDICATIONS: 1. Lactulose (Kristalose) 30 g p.o. b.i.d. 2. Spironolactone 100 mg p.o. b.i.d. 3. Midodrine HCL 5 mg p.o. t.i.d. 4. Albuterol sulfate (ProAir) two puffs inhaled q.6 hours p.r.n. 5. Folic acid 1 mg p.o. daily. 6. Cetirizine 10 mg p.o. at bedtime. 7. Cyclobenzaprine 10 mg p.o. t.i.d. p.r.n. 8. Vitamin B12 of 2000 mcg p.o. daily. 9. Tramadol 50 mg p.o. p.r.n. 10. Melatonin 10 mg p.o. at bedtime. 11. Magnesium amino acid q.8 100 mg p.o. daily. 12. Ferrous sulfate 325 mg p.o. t.i.d. 13. Buspirone 10 mg p.o. b.i.d. 14. Rifaximin 550 mg p.o. b.i.d. 15. Flonase 2 sprays each naris daily. 16. Esomeprazole magnesium (Nexium) 40 mg p.o. daily before meals. 17. Furosemide 40 mg p.o. daily before meals. 18. Pantoprazole 40 mg p.o. b.i.d. DISCONTINUED MEDICATIONS: Lactulose (Kristalose) 20 g p.o. b.i.d. HISTORY OF PRESENT ILLNESS/HOSPITAL COURSE: The patient is a 53-year-old female with history of cirrhosis, ascites, and esophageal varices, who presents with altered mental status. At the time of presentation, the history was unobtainable from the patient secondary to her mental status. She was alert and oriented to person only. The patient was only able to state her name. She arrived at the [place] ED via EMS, which was called by her earlier in the day for noted altered mental status. The patient is a known patient of LEORA Willingham, and was seen the previous day for transfusion of 2 units of PRBCs. She also had paracentesis performed on June 20, 2019, and these are performed on a weekly basis. The patient is also on the liver transplant list in [place]. She has been admitted to the Family Medicine Service in the recent past, multiple times for a similar presentation, which has always been determined to be secondary to end-stage liver disease and hepatic encephalopathy. Often, the patient will miss 2-3 days of her lactulose causing this said presentation. Upon further history from the patient, two days later, she did admit to not taking her lactulose the last three days prior to this admission. In the emergency department, she was given 1 L normal saline bolus, Protonix IV 40 mg, Rocephin 1 g, had a chest x-ray completed which was negative, CT head negative, troponins negative x1. MELD score of 22 on presentation. Ammonia level of 134. FOBT was negative. The patient was admitted inpatient on the medical floor for acute hepatic encephalopathy. At that time, GI was consulted, Dr. Cota. He recommended restarting lactulose and continuing to titrate to the patient having about three bowel movements per day. Ultimately this titration increased her lactulose dose to 30g b.i.d. By the following day, the patient was at baseline mental status. However, her hemoglobin had dropped from 8.8 on admission to 7.5 on June 24, 2019. The patient continued to be monitored for the following two days to ensure that she was having adequate bowel movements, as well as her hemoglobin remaining stable. She was given 1 unit of PRBCs on June 24, 2019. On the morning of June 26, 2019, the patient's hemoglobin had risen back to 8.1. Her MELD score had decreased to 17. The patient was back at baseline mental status. She was deemed stable for discharge back home with close followup with her GI physician, Dr. Schmid, as an outpatient. The patient also has a paracentesis appointment scheduled for tomorrow, June 27, 2019. She also has an appointment with Dr. Schmid in clinic scheduled for June 28. DISPOSITION: Stable. DISCHARGE INSTRUCTIONS: 1. Location: Home. 2. Diet: Renal low-protein. 3. Activity: As tolerated. 4. Followup: Follow up with PCP, Dr. Jeff, at [facility] in 3 to 5 days for hospital followup. 6. Follow up with GI, Dr. Schmid, in 7 to 14 days for hospital followup. 7. Encourage patient to keep appointment tomorrow for paracentesis. 8. Encourage patient to keep followup appointment with Dr. Schmid on June 28. Job ID: [id number] MTDD
== END 2019-06-26 14:18 | disposition home or self-care (01) | DRG 442 ==
LOC: ERS 12:54 → T4-B 17:00
PROVIDERS: ADMIT Family Medicine; ATTEND Family Medicine
PROC: 30233N1 Transfusion of Nonautologous Red Blood Cells into Peripheral Vein, Percutaneous Approach (ICD-10-PCS; principal; 2019-06-25)
DX: K72.00 Acute and subacute hepatic failure without coma (principal); I85.10 Secondary esophageal varices without bleeding; R18.8 Other ascites; D61.818 Other pancytopenia; N17.9 Acute kidney failure, unspecified; K76.6 Portal hypertension; F41.9 Anxiety disorder, unspecified; F32.9 Major depressive disorder, single episode, unspecified; D63.1 Anemia in chronic kidney disease; N18.3 Chronic kidney disease, stage 3 (moderate); E11.22 Type 2 diabetes mellitus with diabetic chronic kidney disease; K21.9 Gastro-esophageal reflux disease without esophagitis; K74.60 Unspecified cirrhosis of liver; K31.89 Other diseases of stomach and duodenum; Z87.891 Personal history of nicotine dependence; Z91.19 Patient's noncompliance with other medical treatment and regimen; Z79.899 Other long term (current) drug therapy
CPT/HCPCS: 36415; 36416; 36430; 70450; 71045; 80053; 81001; 82140; 82274; 82330; 82803; 83735; 84100; 84484; 85025; 85610; 85730; 86850; 86900; 86901; 87077; 87086; 93005; 96365; 96375; C9113; J0696; P9016

== ENCOUNTER 2019-06-27 08:57 | Day surgery (SDC) | payer OTHER ==
[2019-06-27] MEDS ORDERED: Albumin 25% 200 ML ONE (09:13)
[2019-06-27] MEDS ORDERED: Sodium Chloride 0.9% 20 ML ONE (09:15)
[2019-06-27 09:55] LABS: INR-International Normal Ratio 1.4
[2019-06-27 10:03] LABS: Hemoglobin 8.6 g/dL (12.0-16.0); Mean Corpuscular Hemoglobin 32.9 pg (27.0-31.0); Mean Corpuscular Volume 96.7 fL (78.0-98.0); Mean Platelet Volume 7.9 fL (7.4-10.4); Platelet Count 77 thou/uL (130-400); RBC Distribution Width 15.4 % (11.5-14.5); White Blood Cell (WBC) Count 4.4 thou/uL (4.8-10.8)
[2019-06-27 10:10] LABS: ALT (SGPT) 18 U/L (8-55); AST (SGOT) 26 U/L (5-34); Albumin 2.6 g/dL (3.5-5.0); Alcohol Less than 10 mg/dL (Less than 10); Alkaline Phosphatase 79 U/L (40-110); Anion Gap 8 mmol/L (10-20); BUN (Urea Nitrogen) 17 mg/dL (9.8-20.1); Bilirubin, Total 2.2 mg/dL (0.2-1.2); Calc. Creatinine Clearance 0 mL/min (70-130); Carbon Dioxide 22 mmol/L (22-29); Chloride 106 mmol/L (98-107); Estimated GFR-MDRD 46; Globulin 2.2 g/dL (2.4-3.5); Glucose 270 mg/dL (70-105); Protein, Total 4.8 g/dL (6.0-8.3); Sodium 132 mmol/L (136-145)
[2019-06-27 10:23] LABS: Amphetamine Not Detected (NotDetected); Barbiturates Screen Not Detected (NotDetected); Benzodiazepine Screen Not Detected (NotDetected); Cocaine Metabolite Screen Not Detected (NotDetected); Medtox Control Line Valid? VALID (VALID); Medtox Reader # READER 4; Methadone Not Detected (NotDetected); Methamphetamine Not Detected (NotDetected); Opiate Screen Not Detected (NotDetected); Oxycodone Screen Not Detected (NotDetected); Phencyclidine (PCP) Not Detected (NotDetected); THC/Cannabinoid Screen Not Detected (NotDetected); Tricyclic Screen Not Detected (NotDetected)
[2019-06-27 10:30] LABS: Band 1 % (5-11); Eosinophils 9 % (0-10); Lymphocytes 12 % (21-51); MDiff Complete? YES; Monocytes 14 % (0-10); Myelocyte 1 % (0-0); Neutrophil 60 % (42-75); Platelet Morphology Comment Appears Decreased; Polychromasia SLIGHT = 2-3 cells (100X) (0-2/hpf); Reactive Lymphocytes 2 % (0-10)
--- NOTE | 2019-06-27 11:09 | ULT ---
Ultrasound-guided paracentesis: HISTORY: Symptomatic ascites FINDINGS: Informed consent obtained prior to the procedure. Preprocedural imaging demonstrated signif icant ascites throughout the abdomen and pelvis. Right lower quadrant prepped and draped in normal sterile fashion and anesthetized with 1% buffered lidocaine. With direct sonographic guidance, 5 Estonian Yueh catheter is advanced into the ascites and removal of the stylet yielded yellow fluid. 6.35 L were removed. The patient tolerated the procedure well. No postprocedural complications. IMPRESSION: Successful ultrasound-guided paracentesis yielding 6.35 L of yellow ascites.
[2019-06-27 11:23] VITALS: BMI 27.3
[2019-06-27 11:24] VITALS: BP 106/61; TEMP 97.8
[2019-06-27 14:50] LABS: Ref Lab Test Ordered NICOTINE UR; Reference Lab Name LABCORP
[2019-06-27 14:50] LABS: Ref Lab Test Ordered PETH; Reference Lab Name LABCORP
== END 2019-06-27 11:05 | disposition home or self-care (01) ==
LOC: ULT 08:57
PROVIDERS: ATTEND Internal Medicine Gastroenterology
PROC: 0W9G3ZZ Drainage of Peritoneal Cavity, Percutaneous Approach (ICD-10-PCS; principal; 2019-06-27)
DX: K74.60 Unspecified cirrhosis of liver (principal); R18.8 Other ascites; J44.9 Chronic obstructive pulmonary disease, unspecified; M19.90 Unspecified osteoarthritis, unspecified site; F41.9 Anxiety disorder, unspecified; F32.9 Major depressive disorder, single episode, unspecified; I12.9 Hypertensive chronic kidney disease with stage 1 through stage 4 chronic kidney disease, or unspecified chronic kidney disease; E11.22 Type 2 diabetes mellitus with diabetic chronic kidney disease; N18.9 Chronic kidney disease, unspecified; Z79.899 Other long term (current) drug therapy; Z88.0 Allergy status to penicillin; Z88.2 Allergy status to sulfonamides; Z88.5 Allergy status to narcotic agent; Z88.8 Allergy status to other drugs, medicaments and biological substances; Z91.018 Allergy to other foods
CPT/HCPCS: 36415; 49083; 80053; 80306; 80307; 85025; 85610; P9047

== ENCOUNTER 2019-07-04 09:21 | Day surgery (SDC) | payer OTHER ==
[2019-07-04] MEDS ORDERED: Albumin 25% 200 ML ONE (09:46)
[2019-07-04 09:52] LABS: Hemoglobin 7.4 g/dL (12.0-16.0); Mean Corpuscular HGB CONC 32.8 g/dL (32.0-36.0); Mean Corpuscular Hemoglobin 32.3 pg (27.0-31.0); Mean Corpuscular Volume 98.4 fL (78.0-98.0); Mean Platelet Volume 7.3 fL (7.4-10.4); Platelet Count 85 thou/uL (130-400); RBC Distribution Width 14.2 % (11.5-14.5); Red Blood Cell (RBC) Count 2.29 mill/uL (4.20-5.40); White Blood Cell (WBC) Count 4.7 thou/uL (4.8-10.8)
[2019-07-04 09:58] LABS: INR-International Normal Ratio 1.4; Prothrombin Time 16.7 SEC (12.0-14.7)
[2019-07-04 10:12] LABS: Anion Gap 10 mmol/L (10-20); BUN (Urea Nitrogen) 15 mg/dL (9.8-20.1); Calc. Creatinine Clearance 0 mL/min (70-130); Calcium 7.8 mg/dL (7.8-10.44); Carbon Dioxide 23 mmol/L (22-29); Chloride 101 mmol/L (98-107); Estimated GFR-MDRD 41; Glucose 262 mg/dL (70-105); Potassium 4.6 mmol/L (3.5-5.1); Sodium 129 mmol/L (136-145)
[2019-07-04] MEDS ORDERED: Sodium Chloride 0.9% 10 ML ONE (10:53)
--- NOTE | 2019-07-04 11:45 | ULT ---
Exam: Ultrasound guided paracentesis HISTORY: Ascites COMPARISON: June 27, 2019 FINDINGS: Successful ultrasound-guided paracentesis. Total of 6.7 L ofascites was aspirated. TECHNIQUE: Consent obtained reformatory ultrasound-guided paracentesis. Right lower quadrant was deem ed appropriate. Skin was prepped and draped in a sterile fashion. 1% lidocaine, buffered with sodium bicarbonate was used for local anesthesia. Under ultrasound guidance, a 5 Kyrgyz 7 cm Yueh cat heter is advanced in the peritoneal space. A total of 6.7 L ofascites was aspirated. No immediate or postprocedural complications IMPRESSION: Successful ultrasound-guided paracentesis.
[2019-07-04 12:10] VITALS: BP 105/56; TEMP 98.6
== END 2019-07-04 11:30 | disposition home or self-care (01) ==
LOC: ULT 09:21
PROVIDERS: ATTEND Internal Medicine Gastroenterology
PROC: 0W9G3ZZ Drainage of Peritoneal Cavity, Percutaneous Approach (ICD-10-PCS; principal; 2019-07-04)
DX: K74.60 Unspecified cirrhosis of liver (principal); R18.8 Other ascites; J44.9 Chronic obstructive pulmonary disease, unspecified; K21.9 Gastro-esophageal reflux disease without esophagitis; I12.9 Hypertensive chronic kidney disease with stage 1 through stage 4 chronic kidney disease, or unspecified chronic kidney disease; N18.9 Chronic kidney disease, unspecified; F41.9 Anxiety disorder, unspecified; Z87.891 Personal history of nicotine dependence; Z79.899 Other long term (current) drug therapy; Z88.0 Allergy status to penicillin; Z88.2 Allergy status to sulfonamides; Z88.5 Allergy status to narcotic agent; Z88.8 Allergy status to other drugs, medicaments and biological substances; Z91.018 Allergy to other foods
CPT/HCPCS: 36415; 49083; 80048; 85027; 85610; P9047

== ENCOUNTER 2019-07-11 09:28 | Day surgery (SDC) | payer OTHER ==
[2019-07-10 13:00] VITALS: BMI 27.3
[2019-07-11] MEDS ORDERED: Sodium Bicarbonate 2.5 MEQ/5 ML VIAL ONE (09:53)
[2019-07-11] MEDS ORDERED: Sodium Chloride 0.9% 20 ML ONE (09:53)
[2019-07-11] MEDS ORDERED: Albumin 25% 200 ML ONE (09:53)
[2019-07-11 10:55] LABS: Hemoglobin 6.5 g/dL (12.0-16.0)
[2019-07-11 10:59] LABS: Anion Gap 9 mmol/L (10-20); BUN (Urea Nitrogen) 19 mg/dL (9.8-20.1); Calc. Creatinine Clearance 63 mL/min (70-130); Calcium 7.9 mg/dL (7.8-10.44); Carbon Dioxide 23 mmol/L (22-29); Chloride 104 mmol/L (98-107); Estimated GFR-MDRD 42; Glucose 236 mg/dL (70-105); Potassium 3.7 mmol/L (3.5-5.1); Sodium 132 mmol/L (136-145)
--- NOTE | 2019-07-11 11:57 | ULT ---
Exam: Ultrasound guided paracentesis HISTORY: Ascites COMPARISON: 07/04/2019 FINDINGS: Successful ultrasound-guided paracentesis. Total of 6.8 L of yellow color ascites was aspir ated. TECHNIQUE: Consent obtained reformatory ultrasound-guided paracentesis. Left lower quadrantwas deemed appropriate. Skin was prepped and draped in a sterile fashion. 1% lidocaine, buffered with sodium bicarbonate was used for local anesthesia. Under ultrasound guidance, a 5 Iraqi 7 cm Vicci Mobile Mercheh catheter i s advanced in the peritoneal space. A total of 6.8 L of yellow color ascites was aspirated. No immediate or postprocedural complications IMPRESSION: Successful ultrasound-guided paracentesis.
[2019-07-11 12:30] VITALS: BP 108/57; TEMP 98
== END 2019-07-11 11:40 | disposition home or self-care (01) ==
LOC: ULT 09:28
PROVIDERS: ATTEND Internal Medicine Gastroenterology
PROC: 0W9G3ZZ Drainage of Peritoneal Cavity, Percutaneous Approach (ICD-10-PCS; principal; 2019-07-11)
PROC: BW40ZZZ Ultrasonography of Abdomen (ICD-10-PCS; principal; 2019-07-11)
DX: K74.60 Unspecified cirrhosis of liver (principal); R18.8 Other ascites; I12.9 Hypertensive chronic kidney disease with stage 1 through stage 4 chronic kidney disease, or unspecified chronic kidney disease; E11.22 Type 2 diabetes mellitus with diabetic chronic kidney disease; N18.9 Chronic kidney disease, unspecified; J44.9 Chronic obstructive pulmonary disease, unspecified; F41.9 Anxiety disorder, unspecified; F32.9 Major depressive disorder, single episode, unspecified; Z88.0 Allergy status to penicillin; Z88.2 Allergy status to sulfonamides; Z88.5 Allergy status to narcotic agent; Z88.6 Allergy status to analgesic agent; Z88.8 Allergy status to other drugs, medicaments and biological substances; Z91.018 Allergy to other foods
CPT/HCPCS: 49083; 80048; 85018; J1642; P9047

== ENCOUNTER 2019-07-13 10:40 | Inpatient (IN) | payer OTHER ==
--- NOTE | 2019-07-13 11:38 | CT ---
Exam: Head CT without contrast HISTORY: Psoriasis. Altered mental status. COMPARISON: 06/23/2019 FINDINGS: Hemorrhage: No intraparenchymal hemorrhage or extra-axial hematoma. Brain parenchyma: Cortical stuart-white matter differentiation is preserved. No mass effect or midline shift. Basilar cisterns are patent. Ventricular system: Ventricles and sulci are patent and symmetric. Calvarium: Intact. Sinuses and mastoid air cells: Adequate aeration. IMPRESSION: No acute intracranial process. No significant interval change.
[2019-07-13 11:54] LABS: #Eosinphils 0.2 thou/uL (0.0-0.7); #Lymphocytes 0.6 thou/uL (1.20-3.40); #Monocytes 0.5 thou/uL (0.11-0.59); #Neutrophils 3.3 thou/uL (1.40-6.50); %Basophils 0.8 % (0.0-1.0); %Eosinophils 4.8 % (0.0-10.0); %Lymphocytes 13.6 % (21.0-51.0); %Monocytes 10.5 % (0.0-10.0); %Neutrophils 70.3 % (42.0-75.0); Hemoglobin 7.7 g/dL (12.0-16.0); Mean Corpuscular HGB CONC 34.1 g/dL (32.0-36.0); Mean Corpuscular Hemoglobin 33.1 pg (27.0-31.0); Mean Corpuscular Volume 97.1 fL (78.0-98.0); Mean Platelet Volume 7.4 fL (7.4-10.4); Platelet Count 100 thou/uL (130-400); RBC Distribution Width 14.7 % (11.5-14.5); Red Blood Cell (RBC) Count 2.34 mill/uL (4.20-5.40); White Blood Cell (WBC) Count 4.7 thou/uL (4.8-10.8)
--- NOTE | 2019-07-13 11:54 | RAD ---
Portable frontal chest radiograph: 07/13/2019 COMPARISON: 06/23/2019 HISTORY: Altered mental status FINDINGS: Stable vascular catheter on the right, distal tip overlying the region of the cavoatrial ju nction. Stent material in the medial right upper abdomen suggest a TIPS. No pneumothorax or pleural fluid. No focal consolidation or alveolar edema. IMPRESSION: No acute findings.
[2019-07-13 12:04] LABS: INR-International Normal Ratio 1.4; Prothrombin Time 16.6 SEC (12.0-14.7)
[2019-07-13 12:05] LABS: PTT 36.7 SEC (22.9-36.1)
[2019-07-13 12:18] LABS: ALT (SGPT) 21 U/L (8-55); AST (SGOT) 30 U/L (5-34); Acetaminophen Less than 6.0 mcg/mL (10.0-30.0); Albumin 2.9 g/dL (3.5-5.0); Alcohol Less than 10 mg/dL (Less than 10); Alkaline Phosphatase 83 U/L (40-110); Anion Gap 11 mmol/L (10-20); BUN (Urea Nitrogen) 22 mg/dL (9.8-20.1); Bilirubin, Total 2.1 mg/dL (0.2-1.2); CK (CPK) 94 U/L (29-168); Calc. Creatinine Clearance 0 mL/min (70-130); Calcium 8.6 mg/dL (7.8-10.44); Carbon Dioxide 22 mmol/L (22-29); Chloride 111 mmol/L (98-107); Estimated GFR-MDRD 37; Globulin 1.9 g/dL (2.4-3.5); Glucose 161 mg/dL (70-105); Lipase 25 U/L (8-78); Potassium 4.1 mmol/L (3.5-5.1); Protein, Total 4.8 g/dL (6.0-8.3); Salicylate Less than 8.0 mg/dL (15.0-30.0); Sodium 140 mmol/L (136-145)
[2019-07-13] MEDS ORDERED: Ondansetron PF 4 MG/2 ML Vial ONE ×2 (13:33→14:58)
--- NOTE | 2019-07-13 13:42 | PDOC.FPRHP ---
- History of Present Illness Chief Complaint: AMS History of Present Illness: Mrs. Gonzalez is a 53 y/o female with a PMH significant for cirrhosis secondary to EtOH abuse, esophageal varices and portal hypertension who presents to the ED with AMS after a family member found her down. She was unarousable during the evaluation and no HPI could be obtained. ED Course: While in the ED, Mrs. Gonzalez received PO lactulose that she was unable to tolerate, subsequently vomiting it up in ~1H. CXR: Negative CT Head: Negative - Allergies/Adverse Reactions Allergies Allergy/AdvReac Type Severity Reaction Status Date / Time acetaminophen [From Tylenol] Allergy Verified 07/11/19 12:31 aspirin Allergy Verified 07/11/19 12:31 butorphanol [From Stadol] Allergy Verified 07/11/19 12:31 codeine Allergy Verified 07/11/19 12:31 morphine Allergy Verified 07/11/19 12:31 Penicillins Allergy vomiting Verified 07/11/19 12:31 silver Allergy Verified 07/11/19 12:31 [From Tegaderm AG Mesh] Sulfa (Sulfonamide Allergy Verified 07/11/19 12:31 Antibiotics) persimmon Allergy Uncoded 07/11/19 12:31 - Home Medications Medication Instructions Recorded Confirmed Type Spironolactone [Aldactone] 100 mg PO BID 01/10/19 07/11/19 History Albuterol Sulfate [Proair HFA] 2 puff INH Q6HR PRN 05/30/19 07/11/19 History Cetirizine HCl [Zyrtec] 10 mg PO HS 05/30/19 07/11/19 History Cyanocobalamin (Vitamin B-12) 2,000 mcg PO DAILY 05/30/19 07/11/19 History [Vitamin B-12] Cyclobenzaprine [Flexeril] 10 mg PO TID PRN 05/30/19 07/11/19 History Ferrous Sulfate 325 mg PO TID 05/30/19 07/11/19 History Folic Acid [Folvite] 1 mg PO DAILY 05/30/19 07/11/19 History Magnesium Amino Acid Chelate 100 mg PO DAILY 05/30/19 07/11/19 History [Magnesium] Melatonin 10 mg PO HS 05/30/19 07/11/19 History Midodrine HCl 5 mg PO TID 05/30/19 07/11/19 History Rifaximin [Xifaxan] 550 mg PO BID 05/30/19 07/11/19 History busPIRone HCl [Buspar] 10 mg PO BID 05/30/19 07/11/19 History traMADol HCl [Tramadol HCl] 50 mg PO PRN PRN 05/30/19 07/11/19 History Esomeprazole Magnesium [NexIUM] 40 mg PO DAILY-AC 06/23/19 07/11/19 History Fluticasone Propionate [Flonase 2 spray EA NARE DAILY 06/23/19 07/11/19 History Nasal Hubbell] Furosemide [Lasix] 40 mg PO DAILY-AC 06/23/19 07/11/19 History Pantoprazole [Protonix] 40 mg PO BID 06/23/19 07/11/19 History Lactulose [Kristalose] 30 gm PO BID #14 packet 06/26/19 07/11/19 Rx - History PMHx: Cirrhosis, Esophageal Varices, Portal HTN, HTN, CKD, DM2 PSHx: TIPS Procedure FHx: Unobtainable due to AMS. Social: Unobtainable due to AMS. - Review of Systems ROS unobtainable: due to mental status - Vital signs BP: [124/69] HR: [110] RR: [19] Tmax: [98.5] Pox: [98]% on [Room] Wt: [82 kg] - Physical Exam Constitutional: other (GCS: 9, improved on Subsequent Evaluations) HEENT: normocephalic and atraumatic, PERRLA, conjunctiva clear, no scleral icterus, normal nasal mucosa, MMM, oropharynx clear, good dention Neck: supple, FROM, trachea midline Chest: no lesions Heart: RRR, normal S1/S2, no murmurs/rubs/gallops, pulses present, no edema Lungs: CTAB, no respiratory distress, good air movement, no rales/rhonchi, no wheezing, no retractions -Abdomen: Protuberant abdomen within minimal bowel sounds - difficult to auscultate due to habitus and agitation. No shifting dullness with diffuse TTP. Musculoskeletal: normal structure, ROM grossly normal Neurological: no focal deficit -Skin: Diffusely jaundiced with multiple telengiectasias - no obvious bleeding noted. -Heme/Lymphatic: Diffusely jaundiced with multiple telengiectasias - no obvious bleeding noted. -Psychiatric: A&Ox0 FMR H&P: Results - Labs Result Diagrams: 07/13/19 11:43 07/13/19 11:43 Lab results: WBC 4.7 thou/uL (4.8-10.8) L 07/13/19 11:43 Hgb 7.7 g/dL (12.0-16.0) L 07/13/19 11:43 Hct 22.7 % (36.0-47.0) L 07/13/19 11:43 MCV 97.1 fL (78.0-98.0) 07/13/19 11:43 Plt Count 100 thou/uL (130-400) L 07/13/19 11:43 Neutrophils % 70.3 % (42.0-75.0) 07/13/19 11:43 Sodium 140 mmol/L (136-145) 07/13/19 11:43 Potassium 4.1 mmol/L (3.5-5.1) 07/13/19 11:43 Chloride 111 mmol/L (98-107) H 07/13/19 11:43 Carbon Dioxide 22 mmol/L (22-29) 07/13/19 11:43 BUN 22 mg/dL (9.8-20.1) H 07/13/19 11:43 Creatinine 1.48 mg/dL (0.6-1.1) H 07/13/19 11:43 Glucose 161 mg/dL (70-105) H 07/13/19 11:43 Calcium 8.6 mg/dL (7.8-10.44) 07/13/19 11:43 Total Bilirubin 2.1 mg/dL (0.2-1.2) H 07/13/19 11:43 AST 30 U/L (5-34) 07/13/19 11:43 ALT 21 U/L (8-55) 07/13/19 11:43 Alkaline Phosphatase 83 U/L (40-110) 07/13/19 11:43 Ammonia 83 umol/L (18-72) H 07/13/19 11:43 Creatine Kinase 94 U/L (29-168) 07/13/19 11:43 Serum Total Protein 4.8 g/dL (6.0-8.3) L 07/13/19 11:43 Albumin 2.9 g/dL (3.5-5.0) L 07/13/19 11:43 Lipase 25 U/L (8-78) 07/13/19 11:43 - EKG Interpretation EKG: Mild tachycardia without ST changes. - Radiology Interpretation CT scan - head Status: report reviewed by me (CURTIS) Chest x-ray Status: report reviewed by me (CURTIS) FMR H&P: A/P - Plan 1. AMS -Likely Hepatic Encephalopathy 2/2 known medication non-compliance (MELD Score: 17) -r/o infectious and/or toxic causes - traumatic and cardiopulmonary causes appear less likely based on imaging and EKG performed in the ED -WBC: 4.7 / H.7 / Hct: 22 / Plt: 100 -UA: Pending -UDS: Negative / Serum Toxicology Screen: Pending -Alpha Fetoprotein: Pending -Ascitic Fluid Analysis: Pending -EKG: Tachycardia w/o ST changes -CT Head: NAF -CXR: NAF -Initiate Ceftriaxone 2 g IV Q24H following Ascitic Fluid collection -Initiate Lactulose once Bedside Swallow has been performed 2. Cirrhosis -See #1 3. Esophageal Varices, currently stable -Continue to monitor 4. Portal Hypertension, currently stable -s/p TIPS Procedure -Continue to monitor 5. DM2 -POC Glucose: 161 -Accuchecks Q4H -Hypoglycemia Protocol 6. HTN, well-controlled -BP: 124/69 -Restart home medications when able to tolerate PO 7. GERD -Restart home medications when able to tolerate PO Code Status: Full Code Diet: NPO Activity: Strict Bed Rest VTE PPx: SCDs Dispo: Patient is currently admitted to the Medical Floor for further evaluation. Most likely etiology for AMS appears to be Hepatic Encephalopathy 2/ 2 medication non-compliance - currently investigating other etiologies. Await results of AFP and Ascitic Fluid Analysis. Initiate gentle fluid resuscitation and initiate lactulose treatment once able to tolerate PO intake. Expected LOS > 48H FMR H&P: Upper Level - Plan Date/Time: 07/13/19 1342 IJean, have evaluated this patient and agree with findings/plan as outlined by web development intern resident. Pertinent changes/additions are listed here. Subjective This is a 53 yo female well known to our service who presents to the ER via EMS with AMS. She has a history of recurrent admissions for AMS, this is often preceded by forgetting to take her lactulose. On 06/23/19, she was admitted for heptatic encephalopathy and was treated with lactulose, titrated to 3 bowel movements per day. She received 1 unit of PRBCs during that hospitalization. At the time of discharge (06/28/19), her mental status was at baseline and MELD score was 17 (down from 22). On 07/11/19, she had an ultrasound guided paracentesis with a total of 6.8L of yellow color ascites. Now, today, she is presenting in a similar manor. She reports oww to even the lightest touch. She does say her name occasionally when asked. She is otherwise unable to provide adequate history. Objective: Vitals: BP 119/71, HR 108, Resp 16, Temp 98.6, Spo2 100% on RA General: Unprovoked, pt is slumped sideways in bed, somnolent. When provoked with minimal stimulation, pt is mildly agitated. GCS E3 V3 M5 HEENT: AT/NC, PERRLA Cardio: RRR, no murmurs Respiratory: CTAB, no adventitious sounds Abdomen: Distended but not taught, no fluid wave, no voluntary or involuntary guarding, no apparent pain to palpation Rectal: External hemorrhoids, black liquid stool, no internal hemorrhoids Extremities: Trace pedal edema, pulses present Skin: jaundice, poor turgor Psych: Awake and Oriented to person at times A/P Hepatic encephalopathy likely 2/2 medication non-compliance -Admit to medical -Ammonia level at 83 -Start PO lactulose and titrate to 3 BM per day -Gentle fluid hydration -CT head and CXR negative Hepatic cirrhosis 2/2 alcohol abuse -Meld score 17, Child-Pederson score 10 -INR 1.4, Bili 2.1, albumin 2.9 -AFP pending Concern for SBP, no fever or elevated WBC but AMS -Ultrasound guided paracentesis with ascites fluid analysis -Prophylactic abx until results return Concern for GI bleed given past variceal bleeding -Stool occult positive -H/H is 7.7/22.7, will monitor for changes and transfuse if symptomatic or below 7.0 ZACHARY on CKD 3 -small bolus followed by gentle hydration Please see web development intern note further management of chronic conditions Code: Full Prophylaxis: Protonix Family: none at bedside Fluids: 250ml bolus followed by 750ml at 75ml/hr LR Diet: NPO for now Disposition: DC in 3-4 days PCP: Dr. Jeff Addendum - Attending - Attending Attestation Date/Time: 07/13/19 1599 I personally evaluated the patient and discussed the management with Dr. Bowman and Toribio at time of admission. I agree with the History, Examination, Assessment and Plan documented above with any addition or exceptions noted below.
[2019-07-13] MEDS ORDERED: Sodium Chloride 0.9% 250 ML IV SCH (14:45)
[2019-07-13] MEDS ORDERED: Sodium Chloride 0.9% 1,000 ML IV SCH (14:59)
[2019-07-13] MEDS ORDERED: Ondansetron PF 4 MG/2 ML Vial IVP PRN (14:59)
[2019-07-13 15:00] LABS: Bacteria/HPF 4+ HPF (None Seen); Bilirubin Negative (Negative); Blood, Urine Negative (Negative); Clarity Turbid (Clear); Glucose, Urine (Dipstick) Normal (Negative); Leukocyte 500 Leu/uL (Negative); Nitrite Negative (Negative); Protein, Urine (Dipstick) 10 mg/dL (Neg-Trace); RBC/HPF 0-3 HPF (0-3); Renal Epithelial 0-3 HPF (None Seen); Transitional Epithelial 0-3 HPF (None Seen); WBC/HPF Greater than 50 HPF (0-3)
[2019-07-13] MEDS ORDERED: cefTRIAXone\\ROCEPHIN 2 GM in Sodium Chloride 0.9% 100 ML IVPB SCH (15:00)
[2019-07-13 15:09] LABS: Amphetamine Not Detected (NotDetected); Barbiturates Screen Not Detected (NotDetected); Benzodiazepine Screen Not Detected (NotDetected); Cocaine Metabolite Screen Not Detected (NotDetected); Medtox Control Line Valid? VALID (VALID); Medtox Reader # READER 4; Methadone Not Detected (NotDetected); Methamphetamine Not Detected (NotDetected); Opiate Screen Not Detected (NotDetected); Oxycodone Screen Not Detected (NotDetected); Phencyclidine (PCP) Not Detected (NotDetected); THC/Cannabinoid Screen Not Detected (NotDetected); Tricyclic Screen Not Detected (NotDetected)
[2019-07-13 16:57] VITALS: BMI 32.3
--- NOTE | 2019-07-14 05:42 | PDOC.FM ---
- Subjective Subjective: Mrs. Gonzalez was resting comfortably in bed at the time of evaluation. Her mental status had improved greatly since her presentation in the ED, and she was A&Ox2 - complaining only of minimal back pain. She denied any headaches, chest pain or shortness of breath. - Objective Vital Signs & Weight: Vital Signs (12 hours) Temp Pulse Resp BP Pulse Ox 07/14/19 05:12 98.5 F 96 18 105/89 99 07/14/19 00:00 98.2 F 114 H 18 116/72 99 07/13/19 20:00 98.3 F 114 H 18 113/70 100 Weight Weight 80.087 kg I&O: 07/12/19 07/13/19 07/14/19 06:59 06:59 06:59 Intake Total 375 Balance 375 Result Diagrams: 07/14/19 05:44 07/14/19 05:44 Phys Exam - Physical Examination Constitutional: NAD HEENT: PERRLA, moist MMs, oral pharynx no lesions Scleral icterus Neck: supple, full ROM Respiratory: no wheezing, no rales, no rhonchi, clear to auscultation bilateral Cardiovascular: RRR, no significant murmur, no rub Gastrointestinal: soft, non-tender, positive bowel sounds Protuberant Musculoskeletal: pulses present Neurological: non-focal, moves all 4 limbs Psychiatric: normal affect Deviation from normal: A&Ox2 (Person, Place) Deviation from normal: Multiple ecchymoses and telengiectasias Dx/Plan - Plan Plan: 1. AMS -Likely Hepatic Encephalopathy 2/2 known medication non-compliance (MELD Score: 17) -r/o infectious and/or toxic causes - traumatic and cardiopulmonary causes appear less likely based on imaging and EKG performed in the ED -WBC: 4.7 / H.7 / Hct: 22 / Plt: 100 -UA: +Bacteria, +WBCs, +Leukocyte Esterase - will hold ABx until after paracentesis this AM -UDS: Negative / Serum Toxicology Screen: Negative -Alpha Fetoprotein: < 2 (WNL) -Ascitic Fluid Analysis: Pending -EKG: Tachycardia w/o ST changes -CT Head: NAF -CXR: NAF -Initiate Ceftriaxone 2 g IV Q24H following Ascitic Fluid collection -Initiate Lactulose 20 mg PO BID this AM -Restart additional home medications following further improvement of AMS 2. Cirrhosis -See #1 3. Esophageal Varices, currently stable -FOBT: Positive -H.7 - consistent with baseline -No signs of active bleeding - continue to monitor 4. Portal Hypertension, currently stable -s/p TIPS Procedure -Continue to monitor 5. DM2 -POC Glucose: 161 on 07/13 -Accuchecks Q6H -Mild SSI -Hypoglycemia Protocol 6. HTN, well-controlled -BP: 105/89 -Restart home medications when able to better tolerate PO 7. GERD -Restart home medications when able to better tolerate PO Code Status: Full Code Diet: NPO (Meds w/ Sips of Water) Activity: Strict Bed Rest VTE PPx: SCDs Dispo: Patient is currently admitted to the Medical Floor for further evaluation. Most likely etiology for AMS appears to be Hepatic Encephalopathy 2/ 2 medication non-compliance - currently investigating other etiologies. Await results of Ascitic Fluid Analysis and initiate antibiotic therapy if indicated. Continue gentle fluid resuscitation and advance lactulose treatment in order to ensure adequate BMs. Expected LOS > 48H Addendum - Attending - Attending Attestation Date/Time: 07/14/19 7233 I personally evaluated the patient and discussed the management with Dr. Bowman. I agree with the History, Examination, Assessment and Plan documented above with any addition or exceptions noted below. The patient is sleepy this morning. Continue lactulose for hepatic encephalopathy. Pt is anemic, will transfuse 1 unit. Trend h/h. Awaiting paracentesis cultures.
[2019-07-14] MEDS ORDERED: Dextrose 5% in Water 1,000 ML IV PRN (05:52)
[2019-07-14] MEDS ORDERED: Dextrose 50% Abboject 50 ML SYRINGE SLOW IVP PRN (05:52)
[2019-07-14 06:20] LABS: Hemoglobin 6.8 g/dL (12.0-16.0); Mean Corpuscular HGB CONC 32.5 g/dL (32.0-36.0); Mean Corpuscular Hemoglobin 32.3 pg (27.0-31.0); Mean Corpuscular Volume 99.4 fL (78.0-98.0); Mean Platelet Volume 7.4 fL (7.4-10.4); Platelet Count 97 thou/uL (130-400); RBC Distribution Width 14.8 % (11.5-14.5); Red Blood Cell (RBC) Count 2.09 mill/uL (4.20-5.40); White Blood Cell (WBC) Count 3.7 thou/uL (4.8-10.8)
[2019-07-14 06:31] LABS: ALT (SGPT) 19 U/L (8-55); AST (SGOT) 26 U/L (5-34); Albumin 2.5 g/dL (3.5-5.0); Alkaline Phosphatase 74 U/L (40-110); Anion Gap 11 mmol/L (10-20); BUN (Urea Nitrogen) 21 mg/dL (9.8-20.1); Bilirubin, Total 2.2 mg/dL (0.2-1.2); Calc. Creatinine Clearance 60 mL/min (70-130); Carbon Dioxide 19 mmol/L (22-29); Chloride 116 mmol/L (98-107); Estimated GFR-MDRD 39; Glucose 152 mg/dL (70-105); Potassium 3.8 mmol/L (3.5-5.1); Protein, Total 4.5 g/dL (6.0-8.3); Sodium 142 mmol/L (136-145)
[2019-07-14] MEDS ORDERED: Sodium Bicarbonate 2.5 MEQ/5 ML VIAL ONE (08:07)
[2019-07-14] MEDS ORDERED: FLU VACC QS2019-20(6MOS UP)/PF 60 MCG/0.5 ML SYRINGE IM ONE (09:00)
[2019-07-14 09:22] LABS: Band 3 % (5-11); Eosinophils 7 % (0-10); Hypochromia SLIGHT = 6-15 cells (100X) (0-5/hpf); Lymphocytes 22 % (21-51); MDiff Complete? YES; Monocytes 14 % (0-10); Neutrophil 52 % (42-75); Platelet Morphology Comment Appears Decreased; Polychromasia SLIGHT = 2-3 cells (100X) (0-2/hpf); Tear Drops SLIGHT = 2-5 cells (100X) (0-1/hpf)
--- NOTE | 2019-07-14 09:37 | ULT ---
Ultrasound-guided paracentesis: HISTORY: Symptomatic ascites FINDINGS: Informed consent obtained prior to the procedure. Preprocedural imaging demonstrated signif icant ascites throughout the abdomen and pelvis. Right lower quadrant prepped and draped in normal sterile fashion and anesthetized with 1% buffered lidocaine. With direct sonographic guidance, 5 Yakut Yueh catheter is advanced into the ascites and removal of the stylet yielded yellow fluid. 2.7 L were removed. The patient tolerated the procedure well. No postprocedural complications. IMPRESSION: Successful ultrasound-guided paracentesis yielding 2.7 L of yellow ascites.
[2019-07-14 10:20] LABS: BF Color Colorless; Body Fluid Source Ascites Body Fluid; Clarity Hazy (Clear); Tube # EDTA
[2019-07-14 11:16] LABS: RBC Count-Automated (BF) 57 /cumm; WBC/Nucleated-Auto (BF) 29 uL
[2019-07-14 12:08] LABS: BF Segmented Neutrophils 1 %; Cell Count Non Hematic 85 %; Lymphocytes 14 %
[2019-07-14] MEDS ORDERED: PROVENTIL INHALER 6.7 G (200 INHALATIONS) INH PRN (19:01)
[2019-07-14] MEDS ORDERED: Cyclobenzaprine 10 MG TAB PO PRN (19:02)
[2019-07-14] MEDS: Midodrine HCl 5 MG TAB PO SCH (21:35)
[2019-07-14] MEDS: busPIRone HCl 10 MG TAB PO SCH (21:35)
[2019-07-14] MEDS: Ferrous Sulfate 325 MG TAB PO SCH (21:35)
[2019-07-14] MEDS: Rifaximin 550 MG TAB PO SCH (21:35)
[2019-07-14] MEDS: Loratadine 10 MG TAB PO SCH (21:35)
[2019-07-14] MEDS: Melatonin 3 MG TAB PO SCH (21:36)
[2019-07-15 06:36] LABS: Band 4 % (5-11); Eosinophils 3 % (0-10); Hemoglobin 7.7 g/dL (12.0-16.0); Hypochromia SLIGHT = 6-15 cells (100X) (0-5/hpf); Lymphocytes 9 % (21-51); MDiff Complete? YES; Mean Corpuscular Hemoglobin 32.8 pg (27.0-31.0); Mean Corpuscular Volume 96.6 fL (78.0-98.0); Mean Platelet Volume 7.3 fL (7.4-10.4); Monocytes 13 % (0-10); Neutrophil 71 % (42-75); Platelet Count 66 thou/uL (130-400); Platelet Morphology Comment Appears Decreased; RBC Distribution Width 13.7 % (11.5-14.5); Red Blood Cell (RBC) Count 2.35 mill/uL (4.20-5.40); White Blood Cell (WBC) Count 3.3 thou/uL (4.8-10.8)
[2019-07-15 06:39] LABS: ALT (SGPT) 18 U/L (8-55); AST (SGOT) 30 U/L (5-34); Albumin 2.5 g/dL (3.5-5.0); Alkaline Phosphatase 76 U/L (40-110); Anion Gap 10 mmol/L (10-20); BUN (Urea Nitrogen) 17 mg/dL (9.8-20.1); Calc. Creatinine Clearance 57 mL/min (70-130); Calcium 8.1 mg/dL (7.8-10.44); Carbon Dioxide 19 mmol/L (22-29); Chloride 110 mmol/L (98-107); Estimated GFR-MDRD 37; Glucose 211 mg/dL (70-105); Potassium 3.7 mmol/L (3.5-5.1); Protein, Total 4.5 g/dL (6.0-8.3); Sodium 135 mmol/L (136-145)
--- NOTE | 2019-07-15 06:54 | PDOC.FM ---
- Subjective Subjective: Mrs. Gonzalez was resting comfortably in her hospital bed at the time of evaluation. She endorsed mild dysuria, but denied any chest pain, shortness of breath, N/V/D or ABD pain. She reported that she had only had 1 BM since her previous evaluation. - Objective Vital Signs & Weight: Vital Signs (12 hours) Temp Pulse Resp BP Pulse Ox 07/15/19 05:07 98.2 F 99 19 110/73 100 07/14/19 23:00 97.8 F 94 18 108/71 100 07/14/19 19:00 97.5 F L 97 19 113/70 96 Weight Weight 80.087 kg I&O: 07/13/19 07/14/19 07/15/19 06:59 06:59 06:59 Intake Total 1113 0 Balance 1113 0 Result Diagrams: 07/15/19 05:44 07/15/19 05:44 Phys Exam - Physical Examination Constitutional: NAD HEENT: PERRLA, moist MMs, oral pharynx no lesions Scleral icterus Neck: supple, full ROM Respiratory: no wheezing, no rales, no rhonchi, clear to auscultation bilateral Cardiovascular: RRR, no significant murmur, no rub Gastrointestinal: soft, non-tender, positive bowel sounds Moderate distension, improved since 07/14 Musculoskeletal: no edema, pulses present +2 pulses at Radial Arteries Neurological: non-focal, moves all 4 limbs Psychiatric: normal affect Deviation from normal: Jaundice Dx/Plan - Plan Plan: 1. AMS -Likely Hepatic Encephalopathy 2/2 known medication non-compliance (MELD Score: 16) -r/o infectious and/or toxic causes - traumatic and cardiopulmonary causes appear less likely based on imaging and EKG performed in the ED -WBC: 3.3 / H.7 / Hct: 22.7 / Plt: 66 -UA: +Bacteria, +WBCs, +Leukocyte Esterase -UDS: Negative / Serum Toxicology Screen: Negative -Alpha Fetoprotein: < 2 (WNL) -Ascitic Fluid Analysis: Pending -EKG: Tachycardia w/o ST changes -CT Head: NAF -CXR: NAF -Initiate Ceftriaxone 2 g IV Q24H following Ascitic Fluid collection -Initiate Lactulose 20 mg PO BID this AM - tritrate until > 3 BMs per day -Restart additional home medications following further improvement of AMS 2. Cirrhosis -See #1 3. Esophageal Varices, currently stable -H.8 on presentation - H.7 on 07/15 - consistent with baseline -FOBT: Positive -s/p 1U pRBCs -No signs of active bleeding - continue to monitor 4. Portal Hypertension, currently stable -s/p TIPS Procedure -Continue to monitor 5. DM2 -POC Glucose: 211 on 07/15 -Accuchecks Q6H -Mild SSI -Hypoglycemia Protocol 6. HTN, well-controlled -BP: 110/73 on 07/15 -Continue home medication regimen 7. GERD -Restart home medications when able to better tolerate PO Code Status: Full Code Diet: Heart Healthy Activity: Ambulate w/ Assist VTE PPx: SCDs Dispo: Patient is currently admitted to the Medical Floor for further evaluation. Most likely etiology for AMS appears to be Hepatic Encephalopathy 2/ 2 medication non-compliance - currently investigating other etiologies. Await results of Ascitic Fluid Analysis and consider empiric initiation of antibiotic therapy. Continue gentle fluid resuscitation and advance lactulose treatment in order to ensure adequate BMs. Expected LOS < 48H
[2019-07-15] MEDS: Furosemide 40 MG TAB PO SCH (08:27)
[2019-07-15] MEDS: busPIRone HCl 10 MG TAB PO SCH ×2 (08:28→21:21)
[2019-07-15] MEDS: Spironolactone 100 MG TAB PO SCH ×2 (08:28→16:10)
[2019-07-15] MEDS: Cyanocobalamin (Vitamin B-12) 1,000 MCG TAB PO SCH (08:29)
[2019-07-15] MEDS: Midodrine HCl 5 MG TAB PO SCH ×3 (08:30→21:21)
[2019-07-15] MEDS: Ferrous Sulfate 325 MG TAB PO SCH ×3 (08:30→21:21)
[2019-07-15] MEDS: Folic Acid 1 MG TAB PO SCH (08:30)
[2019-07-15] MEDS: Fluticasone Propionate Nasal Spray 16 gm Bottle NASAL SCH (08:31)
[2019-07-15] MEDS: Rifaximin 550 MG TAB PO SCH ×2 (08:31→21:21)
[2019-07-15] MEDS ORDERED: MAGNESIUM AMINO ACID CHELATE PO SCH (09:00)
[2019-07-15] MEDS: cefTRIAXone\\ROCEPHIN 2 GM in Sodium Chloride 0.9% 100 ML IVPB SCH (09:20)
[2019-07-15] MEDS: HumaLOG 300 UNITS/3 ML VIAL SC PRN ×3 (11:06→22:09)
[2019-07-15] MEDS: traMADol HCl 50 MG TAB PO PRN (17:51)
--- NOTE | 2019-07-15 19:04 | PRG ---
DATE OF SERVICE: Please see note from Dr. Bowman for which I agree. The patient was seen, evaluated, discussed, and examined with the residents by bedside. This is a patient well known to the service who often comes in with hepatic encephalopathy, which is the case again. Unclear, if she is not taking her lactulose at home or why, but came in altered with an elevated ammonia level and evidenced to have UTI and now on antibiotics for that. Trying to get her lactulose level high enough for her to have more bowel movements since she is having. Has had a couple of paracentesis in the last week and studies are still pending on that. She is on Rocephin for both the possibility of bacterial peritonitis as well as treating the UTI and awaiting on culture results. May consider something like Xifaxalaron outpatient as it sounds like she is not a fan of lactulose and that is may be why she is noncompliant. Job ID: [id number]
[2019-07-15] MEDS: Loratadine 10 MG TAB PO SCH (21:21)
[2019-07-15] MEDS: Melatonin 3 MG TAB PO SCH (21:26)
--- NOTE | 2019-07-16 05:13 | PDOC.FM ---
- Subjective Subjective: Mrs. Gonzalez was resting comfortably in her hospital bed at the time of evaluation. She stated that she had 11 bowel movements in the past 24H, but otherwise had no acute complaints. - Objective Vital Signs & Weight: Vital Signs (12 hours) Temp Pulse Resp BP Pulse Ox 07/16/19 05:00 97.9 F 95 19 106/66 100 07/16/19 00:21 97.9 F 99 18 100/61 99 07/15/19 20:00 98.0 F 109 H 18 104/63 100 Weight Weight 80.087 kg I&O: 07/14/19 07/15/19 07/16/19 06:59 06:59 06:59 Intake Total 1113 0 1375 Balance 1113 0 1375 Result Diagrams: 07/16/19 04:38 07/16/19 04:38 Phys Exam - Physical Examination Constitutional: NAD HEENT: moist MMs, oral pharynx no lesions Scleral icterus Neck: supple, full ROM Respiratory: no wheezing, no rales, no rhonchi, clear to auscultation bilateral Cardiovascular: no significant murmur, no rub 3/6 systolic murmur Gastrointestinal: soft, non-tender, positive bowel sounds Protuberant Musculoskeletal: no edema, pulses present +2 pulses at Radial Arteries Neurological: non-focal, moves all 4 limbs Psychiatric: normal affect, A&O x 3 Deviation from normal: Mental status greatly improved from previous evaluations Skin: normal turgor, cap refill <2 seconds Deviation from normal: Diffuse ecchymoses, chronic Dx/Plan - Plan Plan: 1. AMS -Likely Hepatic Encephalopathy 2/2 known medication non-compliance (MELD Score: 19) -r/o infectious and/or toxic causes - traumatic and cardiopulmonary causes appear less likely based on imaging and EKG performed in the ED -UA: +Bacteria, +WBCs, +Leukocyte Esterase -UDS: Negative / Serum Toxicology Screen: Negative -Alpha Fetoprotein: < 2 (WNL) -Ascitic Fluid Analysis: Pending -EKG: Tachycardia w/o ST changes -CT Head: NAF -CXR: NAF -Initiate Ceftriaxone 2 g IV Q24H following Ascitic Fluid collection - consider -Continue Lactulose 30 mg PO TID this AM - consider reducing dosage to 30 mg PO BID 2. Cirrhosis -See #1 3. Esophageal Varices, currently stable -H.8 on presentation - H.3 on 07/16 - consistent with baseline -FOBT: Positive -s/p 1U pRBCs -No signs of active bleeding - continue to monitor 4. Portal Hypertension, currently stable -s/p TIPS Procedure -Continue to monitor 5. Acute Simple Cystitis -Patient endorses symptoms of dysuria -UA: +Bacteria, +WBCs, +Leukocyte Esterase -UCx: Vancomycin-resistant Enterococcus -Consider altering antibiotic regimen to include Amoxicillin 5. DM2 -POC Glucose: 163 on 07/16 -Accuchecks Q6H -Mild SSI -Hypoglycemia Protocol -Consider adding basal insulin 6. HTN, well-controlled -BP: 106/66 on 07/16 -Continue home medication regimen 7. GERD -Restart home medications when able to better tolerate PO Code Status: Full Code Diet: Heart Healthy Activity: Ambulate w/ Assist VTE PPx: SCDs Dispo: Patient is currently admitted to the Medical Floor for further evaluation. Most likely etiology for AMS appears to be Hepatic Encephalopathy 2/ 2 medication non-compliance - currently investigating other etiologies. Await results of Ascitic Fluid Analysis and consider empiric initiation of antibiotic therapy. BMs appear to be improving excretion of hepatic byproducts. Consider adjusting antibiotic regimen to cover for VRE. Expected LOS < 48H
[2019-07-16 05:50] LABS: ALT (SGPT) 23 U/L (8-55); AST (SGOT) 39 U/L (5-34); Albumin 2.6 g/dL (3.5-5.0); Alkaline Phosphatase 82 U/L (40-110); Anion Gap 12 mmol/L (10-20); BUN (Urea Nitrogen) 17 mg/dL (9.8-20.1); Bilirubin, Total 2.1 mg/dL (0.2-1.2); Calc. Creatinine Clearance 61 mL/min (70-130); Carbon Dioxide 19 mmol/L (22-29); Chloride 106 mmol/L (98-107); Estimated GFR-MDRD 40; Globulin 2.1 g/dL (2.4-3.5); Glucose 163 mg/dL (70-105); Potassium 3.8 mmol/L (3.5-5.1); Protein, Total 4.7 g/dL (6.0-8.3); Sodium 133 mmol/L (136-145)
[2019-07-16 06:14] LABS: Eosinophils 18 % (0-10); Hemoglobin 8.3 g/dL (12.0-16.0); Lymphocytes 12 % (21-51); MDiff Complete? YES; Mean Corpuscular HGB CONC 33.2 g/dL (32.0-36.0); Mean Corpuscular Hemoglobin 31.8 pg (27.0-31.0); Mean Corpuscular Volume 95.9 fL (78.0-98.0); Mean Platelet Volume 8.2 fL (7.4-10.4); Monocytes 12 % (0-10); Neutrophil 51 % (42-75); Platelet Count 69 thou/uL (130-400); Platelet Morphology Comment Appears Decreased; Promyelocytes 1 % (0-0); RBC Distribution Width 13.4 % (11.5-14.5); RBC Morphology Normal; Reactive Lymphocytes 4 % (0-10); White Blood Cell (WBC) Count 3.9 thou/uL (4.8-10.8)
[2019-07-16] MEDS: cefTRIAXone\\ROCEPHIN 2 GM in Sodium Chloride 0.9% 100 ML IVPB SCH (08:06)
[2019-07-16] MEDS: Folic Acid 1 MG TAB PO SCH (08:07)
[2019-07-16] MEDS: busPIRone HCl 10 MG TAB PO SCH (08:07)
[2019-07-16] MEDS: Midodrine HCl 5 MG TAB PO SCH (08:07)
[2019-07-16] MEDS: Rifaximin 550 MG TAB PO SCH (08:07)
[2019-07-16] MEDS: Furosemide 40 MG TAB PO SCH (08:07)
[2019-07-16] MEDS: Ferrous Sulfate 325 MG TAB PO SCH (08:08)
[2019-07-16] MEDS: Cyanocobalamin (Vitamin B-12) 1,000 MCG TAB PO SCH (08:08)
[2019-07-16] MEDS: Spironolactone 100 MG TAB PO SCH (08:08)
[2019-07-16] MEDS: Fluticasone Propionate Nasal Spray 16 gm Bottle NASAL SCH (08:16)
[2019-07-16 11:26] VITALS: BP 101/65; TEMP 97.9
[2019-07-16] MEDS: traMADol HCl 50 MG TAB PO PRN (11:30)
--- NOTE | 2019-07-16 12:03 | CON ---
DATE OF CONSULTATION: Please see note from Dr. Bowman, for which I agree. The patient was seen, evaluated, discussed, and examined with the residents by bedside. The patient has dramatically improved, having about 10 bowel movements a day. It sounds like when we actually get her compliant on her lactulose, she does fine and symptom navas is doing better. Her biggest issue she has a VRE, UTI, intermittent sensitivities to Macrobid, everything else was IV antibiotics, so she would be able to at least be tried as an outpatient with Macrobid for 10 days and we will repeat the culture at the end of that time. Main thing is urge compliance on her home lactulose 30 mL b.i.d. I tried to encourage her on that. If this continues to fail, may consider Xifaxan if she has insurance covers as an outpatient. Job ID: [id number]
--- NOTE | 2019-07-17 15:30 | DIS ---
DATE OF ADMISSION: 07/13/2019 DATE OF DISCHARGE: 07/16/2019 RESIDENT: Kirill Bowman MD DISCHARGE ATTENDING: Ruben Good MD CONSULTS: None. PROCEDURES: 1. Brain CT scan, which revealed no acute intracranial processes and no significant evidence of interval change. 2. Chest x-ray which demonstrated no acute findings. 3. Ultrasound guided paracentesis in which 2.7 L of ascitic fluid was removed from the abdomen. PRIMARY DIAGNOSIS: Hepatic encephalopathy, most likely secondary to poor medication compliance. SECONDARY DIAGNOSES: Type 2 diabetes, cirrhosis, hypertension, chronic diarrhea , chronic kidney disease, depression, tobacco abuse, esophageal varices, spinal stenosis, gastroesophageal reflux disease, asthma, portal hypertension, anxiety, urinary tract infection and frequent gastrointestinal bleeds. DISCHARGE MEDICATIONS: Macrobid 100 mg p.o. b.i.d. for 10 days. DISCONTINUED MEDICATIONS: 1. BuSpar 10 mg p.o. b.i.d. 2. Ceftriaxone 2 g q.24 hours. 3. Vitamin B12 2000 mcg daily. 4. Ferrous sulfate 325 mg p.o. t.i.d. 5. Fluticasone spray. 6. Folic acid 1 mg p.o. daily. 7. Furosemide 40 mg p.o. daily. 8. Insulin human lispro, mild sliding scale. 9. Lactulose 30 g p.o. t.i.d. 10. Loratadine 10 mg p.o. daily. 11. Melatonin 9 mg p.o. daily. 12. Midodrine 5 mg p.o. t.i.d. 13. Protonix 40 mg p.o. b.i.d. 14. Rifaximin 550 mg p.o. b.i.d. 15. Spironolactone 100 mg p.o. b.i.d. 16. Tramadol 50 mg p.o. daily. HISTORY OF PRESENT ILLNESS/HOSPITAL COURSE: Ms. Gonzalez is a 53-year-old female with a past medical history significant for cirrhosis secondary to alcohol abuse, esophageal varices, portal hypertension, who presented to the ER with altered mental status after a family member reportedly found her down. The family member was not present with her at the time of evaluation, was not seen during her hospital stay. She was unarousable during her time in the ER and no HPI could be obtained. She was given p.o. lactulose, which she subsequently vomited and was given 1 L of normal saline. Multiple imaging modalities were performed during her ER stay that are mentioned elsewhere in this document. She was transferred to the medical floor with gentle fluid resuscitation ongoing until her mental status improved so that she could take her p.o. lactulose. Initial laboratory analysis revealed an ammonia level of 83, most likely indicating that the cause of her altered mental status was secondary to hepatic dysfunction. However, an extensive workup was done for cardiopulmonary and acute toxic processes. Urine drug screen was negative. Ultrasound-guided paracentesis revealed an unremarkable tap with no signs of spontaneous bacterial peritonitis. However, urine culture did grow vancomycin-resistant Enterococcus with multiple resistance patterns noted. During her hospital stay, Ms. Gonzalez's mental status improved greatly and she went from A and O x0 to A and O x4. She was able to tolerate her p.o. lactulose and had multiple bowel movements prior to discharge. She had +11 bowel movements in a 24-hour period preceding. Once stabilized, she was prepped for discharge. Prior to discharge, her vital signs revealed a temperature of 97.9, pulse 94, blood pressure 101/65, respirations 12 per minute, O2 saturations 100% on room air. Laboratory analysis revealed a sodium of 133, potassium 3.8, chloride 106, carbon dioxide 19, BUN 17, creatinine 1.38, down from 1.48. POC glucose was 187, calcium was 8, total bilirubin 2.1, AST 39, ALT 23, alkaline phosphatase 82. Creatine kinase 94. Lipase 25. Tumor marker [id number] within normal limits. DISPOSITION: Stable. DISCHARGE INSTRUCTIONS: 1. Location: Home. 2. Diet: Heart healthy and carbohydrate conscious. 3. Activity: No restrictions. 4. Followup: Ms. Gonzalez sees [facility] approximately once weekly for paracentesis and fluid reduction from her abdomen secondary to her end-stage cirrhosis. She was encouraged to continue following up with her specialist as required. Additionally, due to the nature of her vancomycin-resistant enterococcal UTI, she was discharged with Macrobid 100 mg p.o. b.i.d. x10, which showed intermediate susceptibility. She was encouraged to follow up with her primary care physician in 1 to 2 weeks in order to complete an additional urinalysis and urine culture to ensure resolution of her UTI. She was encouraged to continue to take her p.o. lactulose as prescribed in order to avoid subsequent complications and episodes of altered mental status secondary to hepatic encephalopathy. Overall, she was pleased with her hospital stay and level of care that she received during her time here. Job ID: [id number] MTDD
--- NOTE | 2019-07-19 02:08 | PQF ---
KOKI KING RUSSEL B MD [id number] [id number] CLINICAL DOCUMENTATION CLARIFICATION FORM: POST DISCHARGE Addendum to original discharge summary date: ____ Late entry note date: __ DATE: 07/19/19 ATTN: Ruben Breen Please exercise your independent, professional judgment in responding to the clarification form. Clinical indicators are provided on the bottom of this form for your review In your clinical opinion based on clinical findings below, can you please further clarify the causal linkage between two condition if: Please check appropriate box(s): [ ] Esophageal Varices related to GI bleeding [ ] Esophageal Varices not related to GI Bleeding [ ] Other diagnosis [ ] Unable to determine In addition, please specify: Present on Admission (POA): [ ] Yes [ ] No [ ] Unable to determine For continuity of documentation, please document condition throughout progress notes and discharge summary. Thank You. CLINICAL INDICATORS - SIGNS / SYMPTOMS / LABS Family Med H&P p5 07/13 Dr Bowman Admitted with AMS most likely appears to be Hepatic Encephalopathy Family Med PN p2 07/13 Dr Bowman FOBT: positive Family Med PN p2 07/14 Dr Bowman Hg 7.7 consistent with baseline Family Med PN p2 07/14 Dr Casillas No sign of active bleeding continue monitoring Family Med PN p3 07/13 Dr Casillas Pt is anemic, will tranfuse 1unit Discharge Summary Frequent Gastrointestinal bleeds RISK FACTORS Family Med H&P p1 07/13 Dr Bowman Cirrhosis secondary to ETOH abuse Family Med H&P p1 07/13 Dr Bowman Esophageal varices Family Med H&P p1 07/13 Dr Bowman Portal HTN TREATMENTS: Blood bank 07/14 1Unit PRBC MAR 07/13- Lactulose (This form is maintained as a part of the permanent medical record) 2014 [employer]. All Rights Reserved [email or web address] [not provided] MTDD
== END 2019-07-16 12:14 | disposition home or self-care (01) | DRG 442 ==
LOC: ERS 10:40 → T4-B 12:36
PROVIDERS: ADMIT Family Medicine; ATTEND Family Medicine
PROC: 0W9G3ZZ Drainage of Peritoneal Cavity, Percutaneous Approach (ICD-10-PCS; principal; 2019-07-14)
PROC: 30233N1 Transfusion of Nonautologous Red Blood Cells into Peripheral Vein, Percutaneous Approach (ICD-10-PCS; 2019-07-14)
DX: K72.90 Hepatic failure, unspecified without coma (principal); F10.188 Alcohol abuse with other alcohol-induced disorder; N17.9 Acute kidney failure, unspecified; N30.00 Acute cystitis without hematuria; Z16.21 Resistance to vancomycin; K76.6 Portal hypertension; I85.10 Secondary esophageal varices without bleeding; K21.9 Gastro-esophageal reflux disease without esophagitis; K70.30 Alcoholic cirrhosis of liver without ascites; N18.3 Chronic kidney disease, stage 3 (moderate); B95.2 Enterococcus as the cause of diseases classified elsewhere; E11.22 Type 2 diabetes mellitus with diabetic chronic kidney disease; I12.9 Hypertensive chronic kidney disease with stage 1 through stage 4 chronic kidney disease, or unspecified chronic kidney disease; F32.9 Major depressive disorder, single episode, unspecified; J45.909 Unspecified asthma, uncomplicated; F41.9 Anxiety disorder, unspecified; M48.00 Spinal stenosis, site unspecified; R40.2422 Glasgow coma scale score 9-12, at arrival to emergency department; D64.9 Anemia, unspecified; Z91.19 Patient's noncompliance with other medical treatment and regimen; Z88.6 Allergy status to analgesic agent; Z88.5 Allergy status to narcotic agent; Z88.0 Allergy status to penicillin; Z88.2 Allergy status to sulfonamides; Z88.8 Allergy status to other drugs, medicaments and biological substances; Z91.048 Other nonmedicinal substance allergy status; Z28.21 Immunization not carried out because of patient refusal; Z79.899 Other long term (current) drug therapy; Z79.51 Long term (current) use of inhaled steroids
CPT/HCPCS: 36415; 36416; 36430; 49083; 51701; 70450; 71045; 80053; 80306; 80307; 81003; 81015; 82105; 82140; 82274; 82550; 83690; 85025; 85060; 85610; 85730; 86850; 86900; 86901; 87070; 87077; 87086; 87186; 87205; 88112; 89051; 93005; 96374; 96376; J0696; J1642; J2405; J3490; P9016

== ENCOUNTER 2019-07-18 09:10 | Day surgery (SDC) | payer OTHER ==
[~2019-07-18 09:10] MED LIST changes: -Acetaminophen 325 MG TAB ONE; +Albumin 25% 200 ML ONE; +Sodium Bicarbonate 2.5 MEQ/5 ML VIAL ONE; -Sodium Chloride 0.9% 10 ML ONE
[2019-07-18] MEDS ORDERED: Sodium Chloride 0.9% 20 ML ONE (09:45)
--- NOTE | 2019-07-18 11:25 | ULT ---
Exam: Ultrasound guided paracentesis HISTORY: Ascites COMPARISON: 07/14/1990 FINDINGS: Successful ultrasound-guided paracentesis. Total of 5800 mL of yellow color ascites was asp irated. TECHNIQUE: Consent obtained reformatory ultrasound-guided paracentesis. Right lower quadrant was deem ed appropriate. Skin was prepped and draped in a sterile fashion. 1% lidocaine, buffered with sodium bicarbonate was used for local anesthesia. Under ultrasound guidance, a 5 [place] 7 cm Yueh cat heter is advanced in the peritoneal space. A total of 5800 mL of yellow color ascites was aspirated. No immediate or postprocedural complications IMPRESSION: Successful ultrasound-guided paracentesis.
[2019-07-18 14:25] VITALS: BMI 27.3
== END 2019-07-18 11:15 | disposition home or self-care (01) ==
LOC: ULT 09:10
PROVIDERS: ATTEND Internal Medicine Gastroenterology
PROC: 0W9G3ZZ Drainage of Peritoneal Cavity, Percutaneous Approach (ICD-10-PCS; principal; 2019-07-18)
DX: K74.60 Unspecified cirrhosis of liver (principal); R18.8 Other ascites; J44.9 Chronic obstructive pulmonary disease, unspecified; F41.9 Anxiety disorder, unspecified; F32.9 Major depressive disorder, single episode, unspecified; I12.9 Hypertensive chronic kidney disease with stage 1 through stage 4 chronic kidney disease, or unspecified chronic kidney disease; N18.9 Chronic kidney disease, unspecified; K21.9 Gastro-esophageal reflux disease without esophagitis; G89.29 Other chronic pain; M54.9 Dorsalgia, unspecified; Z87.891 Personal history of nicotine dependence; Z79.899 Other long term (current) drug therapy; Z88.0 Allergy status to penicillin; Z88.2 Allergy status to sulfonamides; Z88.5 Allergy status to narcotic agent; Z88.8 Allergy status to other drugs, medicaments and biological substances; Z91.018 Allergy to other foods
CPT/HCPCS: 49083; J1642; P9047

== ENCOUNTER 2019-07-25 09:18 | Day surgery (SDC) | payer OTHER ==
[2019-07-24 15:20] VITALS: BMI 27.3
[2019-07-25] MEDS ORDERED: Sodium Bicarbonate 2.5 MEQ/5 ML VIAL ONE (09:21)
[2019-07-25] MEDS ORDERED: Albumin 25% 200 ML ONE (09:21)
[2019-07-25] MEDS ORDERED: Sodium Chloride 0.9% 20 ML ONE (09:22)
--- NOTE | 2019-07-25 11:56 | ULT ---
Exam: Ultrasound guided paracentesis HISTORY: Ascites COMPARISON: July 18, 2019 FINDINGS: Successful ultrasound-guided paracentesis. Total of 7 L normal-appearingascites was aspirat ed. TECHNIQUE: Consent obtained reformatory ultrasound-guided paracentesis. Right lower quadrant was deem ed appropriate. Skin was prepped and draped in a sterile fashion. 1% lidocaine, buffered with sodium bicarbonate was used for local anesthesia. Under ultrasound guidance, a 5 [place] 7 cm Yueh cat heter is advanced in the peritoneal space. A total of 7 L normal-appearingascites was aspirated. No immediate or postprocedural complications IMPRESSION: Successful ultrasound-guided paracentesis.
[2019-07-25 12:19] VITALS: BP 90/46; TEMP 98
[2019-07-25 12:50] LABS: Hemoglobin 5.6 g/dL (12.0-16.0)
[2019-07-25 13:12] LABS: Anion Gap 9 mmol/L (10-20); BUN (Urea Nitrogen) 27 mg/dL (9.8-20.1); Calc. Creatinine Clearance 67 mL/min (70-130); Calcium 7.8 mg/dL (7.8-10.44); Carbon Dioxide 21 mmol/L (22-29); Chloride 102 mmol/L (98-107); Estimated GFR-MDRD 45; Glucose 214 mg/dL (70-105); Potassium 5.1 mmol/L (3.5-5.1); Sodium 127 mmol/L (136-145)
== END 2019-07-25 11:30 | disposition home or self-care (01) ==
LOC: ULT 09:18
PROVIDERS: ATTEND Internal Medicine Gastroenterology
PROC: 0W9G3ZZ Drainage of Peritoneal Cavity, Percutaneous Approach (ICD-10-PCS; principal; 2019-07-25)
DX: K74.60 Unspecified cirrhosis of liver (principal); R18.8 Other ascites; J44.9 Chronic obstructive pulmonary disease, unspecified; I12.9 Hypertensive chronic kidney disease with stage 1 through stage 4 chronic kidney disease, or unspecified chronic kidney disease; E11.22 Type 2 diabetes mellitus with diabetic chronic kidney disease; N18.9 Chronic kidney disease, unspecified; K21.9 Gastro-esophageal reflux disease without esophagitis; G89.29 Other chronic pain; M54.9 Dorsalgia, unspecified; Z79.899 Other long term (current) drug therapy; Z88.0 Allergy status to penicillin; Z88.2 Allergy status to sulfonamides; Z88.5 Allergy status to narcotic agent; Z88.8 Allergy status to other drugs, medicaments and biological substances; Z91.018 Allergy to other foods; Z91.048 Other nonmedicinal substance allergy status; Z87.891 Personal history of nicotine dependence
CPT/HCPCS: 49083; 80048; 85014; 85018; J1642; P9047

== ENCOUNTER 2019-07-25 16:29 | Inpatient (IN) | payer OTHER ==
[2019-07-25 17:41] LABS: Hemoglobin 4.7 g/dL (12.0-16.0); Mean Corpuscular HGB CONC 32.7 g/dL (32.0-36.0); Mean Corpuscular Hemoglobin 32.6 pg (27.0-31.0); Mean Corpuscular Volume 99.7 fL (78.0-98.0); Mean Platelet Volume 8.1 fL (7.4-10.4); Platelet Count 58 thou/uL (130-400); RBC Distribution Width 15.8 % (11.5-14.5); Red Blood Cell (RBC) Count 1.45 mill/uL (4.20-5.40); White Blood Cell (WBC) Count 3.8 thou/uL (4.8-10.8)
[2019-07-25 17:42] LABS: #Eosinphils 0.2 thou/uL (0.0-0.7); #Lymphocytes 0.6 thou/uL (1.20-3.40); #Monocytes 0.5 thou/uL (0.11-0.59); #Neutrophils 2.4 thou/uL (1.40-6.50); %Basophils 1.2 % (0.0-1.0); %Eosinophils 6.5 % (0.0-10.0); %Lymphocytes 15.1 % (21.0-51.0); %Monocytes 14.5 % (0.0-10.0); %Neutrophils 62.7 % (42.0-75.0)
[2019-07-25 17:55] LABS: ALT (SGPT) 12 U/L (8-55); AST (SGOT) 18 U/L (5-34); Albumin 2.7 g/dL (3.5-5.0); Alkaline Phosphatase 74 U/L (40-110); Anion Gap 8 mmol/L (10-20); BUN (Urea Nitrogen) 29 mg/dL (9.8-20.1); Bilirubin, Total 0.9 mg/dL (0.2-1.2); Calc. Creatinine Clearance 0 mL/min (70-130); Calcium 7.9 mg/dL (7.8-10.44); Carbon Dioxide 23 mmol/L (22-29); Chloride 102 mmol/L (98-107); Estimated GFR-MDRD 42; Globulin 1.7 g/dL (2.4-3.5); Glucose 258 mg/dL (70-105); Lipase 36 U/L (8-78); Protein, Total 4.4 g/dL (6.0-8.3); Sodium 128 mmol/L (136-145)
[2019-07-25] MEDS ORDERED: cefTRIAXone\\ROCEPHIN 1 GM VIAL ONE (20:41)
[2019-07-25] MEDS ORDERED: Pantoprazole 40 MG VIAL ONE (20:41)
--- NOTE | 2019-07-25 21:06 | PDOC.FPRHP ---
- History of Present Illness Chief Complaint: sent from GI for anemia History of Present Illness: Ms. Gonzalez is a 53yo F who presented to the ED at the recommendation of Dr. Schmid after her paracentesis today. She has weekly paracenteses. Today they took of 7L, per usual. They obtain routine labs prior to the procedure weekly. Today in his office her Hb was 5.7, she is usually around 8. She was not symptomatic. This is not unusual for her, she has had several transfusions in the past. She complains of cramping pain in association with her paracentesis. During her intake, she had several bouts of abdominal cramping while we were talking. She denies feeling weak or dizzy. She states she has had no changes to her usual health over the last few days. She has chronic diarrhea from lactulose. She has noted some bright red blood when she wipes because of a ruptured hemorrhoid. She otherwise denies changes to her regular bowel frequency or color. ED Course: Protonix gtt and Rocephin - Allergies/Adverse Reactions Allergies Allergy/AdvReac Type Severity Reaction Status Date / Time acetaminophen [From Tylenol] Allergy Verified 07/25/19 23:10 aspirin Allergy Verified 07/25/19 23:10 butorphanol [From Stadol] Allergy Verified 07/25/19 23:10 codeine Allergy Verified 07/25/19 23:10 morphine Allergy Verified 07/25/19 23:10 Penicillins Allergy vomiting Verified 07/25/19 23:10 silver Allergy Verified 07/25/19 23:10 [From Tegaderm AG Mesh] Sulfa (Sulfonamide Allergy Verified 07/25/19 23:10 Antibiotics) persimmon Allergy Uncoded 07/25/19 23:10 - Home Medications Medication Instructions Recorded Confirmed Type Spironolactone [Aldactone] 100 mg PO BID 01/10/19 07/25/19 History Albuterol Sulfate [Proair HFA] 2 puff INH Q6HR PRN 05/30/19 07/25/19 History Cyanocobalamin (Vitamin B-12) 1,000 mcg PO DAILY 05/30/19 07/25/19 History [Vitamin B-12] Cyclobenzaprine [Flexeril] 10 mg PO TID PRN 05/30/19 07/25/19 History Ferrous Sulfate 65 mg PO TID 05/30/19 07/25/19 History Folic Acid [Folvite] 1 mg PO DAILY 05/30/19 07/25/19 History Magnesium Amino Acid Chelate 100 mg PO DAILY 05/30/19 07/25/19 History [Magnesium] Melatonin 10 mg PO HS 05/30/19 07/25/19 History Midodrine HCl 5 mg PO TID 05/30/19 07/25/19 History Rifaximin [Xifaxan] 550 mg PO BID 05/30/19 07/25/19 History busPIRone HCl [Buspar] 10 mg PO BID 05/30/19 07/25/19 History traMADol HCl [Tramadol HCl] 50 mg PO QID 05/30/19 07/25/19 History Fluticasone Propionate [Flonase 2 spray EA NARE DAILY 06/23/19 07/25/19 History Nasal [place]] Furosemide [Lasix] 40 mg PO DAILY-AC 06/23/19 07/25/19 History Pantoprazole [Protonix] 40 mg PO BID 06/23/19 07/25/19 History Lactulose [Kristalose] 30 gm PO BID #14 packet 06/26/19 07/25/19 Rx hydrOXYzine HCl [Hydroxyzine HCl] 25 mg PO Q8HR PRN 07/17/19 07/25/19 History Loratadine 10 mg PO HS 07/25/19 07/25/19 History - History PMHx: GI Bleed, Gastric Ulcers and Gastropathy, Cirrhosis, Acute on Chronic Anemia, DMII, HTN, CKD , Depression, Hyponatremia, GERD, Asthma PSHx: TIPS, cholecystecomy, x3, tonsillectomy, f[place] port, FHx: non-contributory Social: smoker, former alcohol abuse - Review of Systems General: denies: fever/chills, weight/appetite/sleep changes, night sweats Eyes: denies: eye pain, vision changes ENT: reports: nasal congestion. denies: rhinorrhea Respiratory: denies: cough, congestion, shortness of breath Cardiovascular: denies: chest pain, palpitation, edema, paroxysmal nocturnal dyspnea, orthopnea Gastrointestinal: reports: diarrhea, abdominal pain, GI bleeding. denies: nausea, vomiting, constipation Genitourinary: denies: incontinence, dysuria, polyuria Skin: denies: rashes, lesions, jaundice Musculoskeletal: denies: pain, tenderness, stiffness Neurological: reports: weakness. denies: numbness, syncope, seizure Psychological: reports: anxiety, depression - Vital signs 07/25/19 23:20 Temperature 98.4 F Pulse Rate [ 96 Right] Blood Pressure 101/61 [Right Arm] Respiratory 18 Rate O2 Sat by Pulse 100 Oximetry - Physical Exam Constitutional: NAD, awake, alert and oriented HEENT: normocephalic and atraumatic, PERRLA, EOMI, conjunctiva clear, grossly normal vision, grossly normal hearing, MMM -HEENT: poor / absent dentition Neck: supple, trachea midline Heart: RRR, normal S1/S2, no murmurs/rubs/gallops, pulses present, no edema Lungs: CTAB, no respiratory distress, good air movement, no rales/rhonchi, no wheezing Abdomen: soft, bowel sounds present -Abdomen: TTP diffusely Musculoskeletal: normal structure, normal tone Neurological: no focal deficit, CN II-XII intact Skin: good turgor, capillary refill <2 seconds -Skin: Skin tear on hand Heme/Lymphatic: no unusual bruising or bleeding, no purpura, no petechia Psychiatric: normal mood and affect FMR H&P: Results - Labs Result Diagrams: 07/26/19 10:35 07/26/19 05:10 Lab results: WBC 3.8 thou/uL (4.8-10.8) L 07/25/19 17:18 Hgb 4.7 g/dL (12.0-16.0) L* 07/25/19 17:18 Hct 14.5 % (36.0-47.0) L* 07/25/19 17:18 MCV 99.7 fL (78.0-98.0) H 07/25/19 17:18 Plt Count 58 thou/uL (130-400) L 07/25/19 17:18 Neutrophils % 62.7 % (42.0-75.0) 07/25/19 17:18 Sodium 128 mmol/L (136-145) L 07/25/19 17:18 Potassium 5.0 mmol/L (3.5-5.1) 07/25/19 17:18 Chloride 102 mmol/L (98-107) 07/25/19 17:18 Carbon Dioxide 23 mmol/L (22-29) 07/25/19 17:18 BUN 29 mg/dL (9.8-20.1) H 07/25/19 17:18 Creatinine 1.33 mg/dL (0.6-1.1) H 07/25/19 17:18 Glucose 258 mg/dL (70-105) H 07/25/19 17:18 Calcium 7.9 mg/dL (7.8-10.44) 07/25/19 17:18 Total Bilirubin 0.9 mg/dL (0.2-1.2) 07/25/19 17:18 AST 18 U/L (5-34) 07/25/19 17:18 ALT 12 U/L (8-55) 07/25/19 17:18 Alkaline Phosphatase 74 U/L (40-110) 07/25/19 17:18 Serum Total Protein 4.4 g/dL (6.0-8.3) L 07/25/19 17:18 Albumin 2.7 g/dL (3.5-5.0) L 07/25/19 17:18 Lipase 36 U/L (8-78) 07/25/19 17:18 FMR H&P: A/P - Plan Anemia, acute on chronic - acute GI bleed vs hemolysis - Hemolysis labs ordered (LDH, haptoglobin, and retic count) - transfuse 3 u pRBC - recheck H&H s/p transfusion - she received 1g rocephin for SBP prophylaxis. Cirrhosis - d/t fatty liver disease, awaiting transplant. - on lactulose and rifamixin - continue home meds DMII - Continue home medications - hypoglycemia protocol & SSI HTN - currently borderline hypotensive, will hold home medications CKD - Cr 1.33, at baseline Depression - continue home medications Hyponatremia - chronic, will monitor with BMP GERD - on protonix drip, will resume home medications when drip is stopped Asthma - albuterol nebs prn for wheezing Disposition/LOS: Dispo: Stable, inpatient Code: Full VTE: SCDs FMR H&P: Upper Level - Plan Date/Time: 07/25/192102 PCP: CARLY HPI: Patient had her weekly paracentesis today along with labs, was at home resting and sent to ED because of anemia. Patient denies feeling weak or dizzy. She has had bright red blood when wiping from hemorrhoid for the last few days. Denies dark stools or vomiting. She denies fevers, chills, or sweats. Denies palpitations, CP, or SOB. REVIEW OF SYSTEMS: Gen: no fever, chills, or sweats Neuro: denies headache Eyes: no visual changes ENT: no hearing changes, no sore throat, no congestion Resp: denies cough, SOB Card: denies murmurs, rubs, gallups GI: see hpi Heme: no easy bruising/bleeding, no blood thinners Skin: no rash, no erythema PHYSICAL EXAMINATION: General: NAD, alert and oriented x3 HEENT: PERRLA, EOMI, normal sclera, oropharynx without erythema or exudate Neck: Supple. Full ROM. Heart/Cardiovascular System: RRR, Cap refill < 3 seconds, no rub, no murmur Lungs/Respiratory System: CTA-B, no resp distress Abdomen/Gastro-Intestinal System: normal bowel sounds. No distension, soft, mild tenderness to palpation throughout, no guarding or rebound Extremities: Warm extremities. No cyanosis or edema Neuro: No gross deficits appreciated. CN 2-12 grossly intact Psychiatry: Awake, Alert and cooperative with exam Skin: No lesions, rashes, or ulcers Musculoskeletal: Full ROM A/P: # acute on chronic Anemia, likely 2/2 GI source - Hgb 4.7, will transfuse 3U and check H/H 4 hours after - She is cirrhotic, her baseline hgb appears to be 7-8 - Eval for hemolysis - Suspect hemorrhoids, consider infectious contributor, protonix IV - received rocephin in ED, SBP consider but less likely at this time - GI consulted appreciate recs - BP on low side will reevaluate fluid status after transfusions, hold home lasix for now # Cirrhosis - On transplant list, follows with Dr. Schmid - Hx esophageal varices, portal htn - Home lactulose, rifaximin, midodrine # Dm2 - home meds # Hyponatremia, chronic - Na 128 Fluids: NS 100ml/hr Code status: full PPx: scd Dispo: inpatient Addendum - Attending - Attending Attestation Date/Time: 07/26/19 1311 I personally evaluated the patient and discussed the management with Dr. Lea on 07/25/2019 I agree with the History, Examination, Assessment and Plan documented above with any addition or exceptions noted below - 53yo F with h/o cirrhosis secondary to alcohol, DM, HTN, portal gastropathy, gastric ulcers who presented to the ED due to abnormal labs that were found after her weekly paracentesis. Today they took of 7L, per usual. Today in his office her Hb was 5.7, she is usually around 8. She was not symptomatic. This is not unusual for her, she has had several transfusions in the past. PMH/PSH/Meds/SH reviewed and agree with resident's documentation. Afebrile VSS Exam repeated by me and agree with resident's findings. Labs: H/H=4.7/14.5. Plt=58, Ti=483, K=5.0, Br=200, CO2=23, BUN/Cr=29/1.33, Ztov=175. A/P: 1) Anemia - transfusing 3u pRBCs; recheck H/H. Discuss plan with GI in AM. 2) DM- continue home meds. .
[2019-07-25] MEDS ORDERED: Ondansetron PF 4 MG/2 ML Vial IVP PRN (21:36)
[2019-07-25 22:46] VITALS: BMI 31.6
[2019-07-25] MEDS: Sodium Chloride 0.9% 1,000 ML IV SCH (23:24)
[2019-07-25] MEDS: Pantoprazole 80 MG, Admixture Fee 1 EACH in Sodium Chloride 0.9% 100 ML IVPB SCH (23:47)
[2019-07-26] MEDS: traMADol HCl 50 MG TAB PO PRN ×2 (01:16→14:45)
[2019-07-26] MEDS: Sodium Chloride 0.9% 1,000 ML IV SCH ×2 (03:57→16:22)
[2019-07-26] MEDS ORDERED: Dextrose 50% Abboject 50 ML SYRINGE SLOW IVP PRN (04:00)
[2019-07-26] MEDS ORDERED: HumaLOG 300 UNITS/3 ML VIAL SC PRN (04:00)
[2019-07-26] MEDS ORDERED: Dextrose 5% in Water 1,000 ML IV PRN (04:00)
[2019-07-26] MEDS ORDERED: Albuterol Sulfate 2.5 mg/3 ml Neb NEB PRN (04:02)
[2019-07-26 05:41] LABS: Reticulocyte Count 8.9 % (0.5-1.5)
--- NOTE | 2019-07-26 06:16 | PDOC.FM ---
- Subjective Subjective: Pt denies dark or bloody stools. Denies N/V. Denies bloody emesis. Had 7 L paracentesis yesterday. - Objective Vital Signs & Weight: Vital Signs (12 hours) Temp Pulse Pulse Resp BP BP Pulse Ox 07/26/19 01:46 98.3 F 96 18 111/65 100 07/26/19 01:33 98.3 F 97 18 100/61 07/26/19 01:12 98.5 F 93 18 95/60 100 07/25/19 23:20 98.4 F 96 18 101/61 100 07/25/19 23:05 98.1 F 97 18 93/57 L 07/25/19 22:45 98.6 F 96 18 104/65 100 Weight Weight 88.768 kg I&O: 07/24/19 07/25/19 07/26/19 06:59 06:59 06:59 Intake Total 1487 Output Total 250 Balance 1237 Result Diagrams: 07/26/19 10:35 07/26/19 05:10 Phys Exam - Physical Examination Constitutional: NAD HEENT: moist MMs scleral icterus Neck: no nodes, supple Respiratory: no wheezing, no rales, no rhonchi, clear to auscultation bilateral Cardiovascular: RRR, no rub sys murmur Gastrointestinal: soft, non-tender, positive bowel sounds Musculoskeletal: pulses present, edema present (BLE 2+ pittign edema. ) Neurological: non-focal, normal sensation, moves all 4 limbs Psychiatric: normal affect, A&O x 3 Skin: no rash, normal turgor, cap refill <2 seconds Deviation from normal: jaundice. Dx/Plan (1) GI bleed Code(s): K92.2 - GASTROINTESTINAL HEMORRHAGE, UNSPECIFIED Status: Acute Qualifiers: GI bleed type/associated pathology: unspecified gastrointestinal hemorrhage type Qualified Code(s): K92.2 - Gastrointestinal hemorrhage, unspecified (2) Cirrhosis of liver with ascites Code(s): K74.60 - UNSPECIFIED CIRRHOSIS OF LIVER Status: Chronic Qualifiers: Hepatic cirrhosis type: unspecified hepatic cirrhosis Qualified Code(s): K74.60 - Unspecified cirrhosis of liver; R18.8 - Other ascites (3) DM type 2 (diabetes mellitus, type 2) Status: Chronic Qualifiers: Diabetes mellitus shelter insulin use: without rodent exterminator use Diabetes mellitus complication status: with kidney complications Diabetes mellitus complication detail: with chronic kidney disease Chronic kidney disease stage : stage 3 (moderate) Qualified Code(s): E11.22 - Type 2 diabetes mellitus with diabetic chronic kidney disease; N18.3 - Chronic kidney disease, stage 3 ( moderate) (4) Depression Code(s): F32.9 - MAJOR DEPRESSIVE DISORDER, SINGLE EPISODE, UNSPECIFIED Status : Chronic (5) Esophageal varices Code(s): I85.00 - ESOPHAGEAL VARICES WITHOUT BLEEDING Status: Chronic (6) HTN (hypertension) Code(s): I10 - ESSENTIAL (PRIMARY) HYPERTENSION Status: Chronic Qualifiers: Hypertension type: unspecified Qualified Code(s): I10 - Essential (primary ) hypertension (7) S/P TIPS (transjugular intrahepatic portosystemic shunt) Status: Chronic - Plan Plan: Anemia, acute on chronic - acute GI bleed vs hemolysis. Pt asymptomatic from anemia prior to arrival. Hgb was found from paracentesis yesterday. 7 L taken off abdomen. - Hemolysis labs ordered (LDH, haptoglobin), retic count 8.9%, immature retic fraction 0.433, both elevated. - transfused 3 u pRBC on 07/25. - recheck H&H s/p transfusion - she received 1g rocephin for SBP prophylaxis. - Protonix drip - GI consulted, appreciate recs. Cirrhosis - d/t fatty liver disease, awaiting transplant. - on lactulose and rifamixin, spironolactone. - continue home meds DMII - Continue home medications - hypoglycemia protocol & SSI HTN - currently borderline hypotensive, will hold home medications CKD - Cr 1.33, at baseline Depression - continue home medications Hyponatremia - chronic, will monitor with BMP - Na 128 GERD - on protonix drip, will resume home medications when drip is stopped Asthma - albuterol nebs prn for wheezing Disposition/LOS: Dispo: Stable, inpatient Code: Full VTE: SCDs Addendum - Attending - Attending Attestation Date/Time: 07/26/19 3516 I personally evaluated the patient and discussed the management with Dr. Trammell. I agree with the History, Examination, Assessment and Plan documented above with any addition or exceptions noted below. Patient doing well. Spoke with GI and wants Hgb above 8. Will transfuse another unit and if above 8 will be stable for discharge as no evidence of bleeding and has good GI follow up.
[2019-07-26 06:27] LABS: ALT (SGPT) 12 U/L (8-55); AST (SGOT) 18 U/L (5-34); Albumin 2.6 g/dL (3.5-5.0); Alkaline Phosphatase 71 U/L (40-110); Anion Gap 4 mmol/L (10-20); BUN (Urea Nitrogen) 27 mg/dL (9.8-20.1); Bilirubin, Total 2.7 mg/dL (0.2-1.2); Calc. Creatinine Clearance 86 mL/min (70-130); Calcium 8.1 mg/dL (7.8-10.44); Carbon Dioxide 25 mmol/L (22-29); Chloride 106 mmol/L (98-107); Estimated GFR-MDRD 53; Globulin 1.7 g/dL (2.4-3.5); Glucose 131 mg/dL (70-105); Protein, Total 4.3 g/dL (6.0-8.3); Sodium 130 mmol/L (136-145)
[2019-07-26] MEDS: Midodrine HCl 5 MG TAB PO SCH ×3 (08:23→16:22)
[2019-07-26] MEDS: Spironolactone 100 MG TAB PO SCH ×2 (08:23→16:22)
[2019-07-26] MEDS: Ferrous Sulfate 325 MG TAB PO SCH ×2 (08:23→14:47)
[2019-07-26] MEDS ORDERED: Rifaximin 550 MG TAB PO SCH (09:00)
[2019-07-26] MEDS ORDERED: busPIRone HCl 10 MG TAB PO SCH (09:00)
[2019-07-26] MEDS: Pantoprazole 80 MG, Admixture Fee 1 EACH in Sodium Chloride 0.9% 100 ML IVPB SCH (10:22)
[2019-07-26 10:47] LABS: Hemoglobin 7.8 g/dL (12.0-16.0); Mean Corpuscular HGB CONC 34.4 g/dL (32.0-36.0); Mean Corpuscular Hemoglobin 32.6 pg (27.0-31.0); Mean Corpuscular Volume 94.7 fL (78.0-98.0); Mean Platelet Volume 8.2 fL (7.4-10.4); Platelet Count 47 thou/uL (130-400); RBC Distribution Width 15.4 % (11.5-14.5); White Blood Cell (WBC) Count 3.7 thou/uL (4.8-10.8)
--- NOTE | 2019-07-26 12:48 | PQF ---
KOKI KINGMARIA EUGENIA *r [id number] [id number]- [id number] CLINICAL DOCUMENTATION IMPROVEMENT CLARIFICATION FORM: ICD-10 Updated PLEASE DO AN ADDENDUM TO THE PROGRESS NOTE WITH ANY DOCUMENTATION UPDATES OR ADDITIONS AND CARRY THROUGH TO DC SUMMARY. THANK YOU. DATE: 07/24/19 ATTN: Dr. Trammell Please exercise your independent, professional judgment in responding to the clarification form. Clinical indicators are provided on the bottom of this form for your review Please check appropriate box(s): [* ] Worsening Chronic Anemia: from GI bleed, chronic per GI specialist. [ * ] Anemia of Chronic Disease (please specify) _from cirrhosis Present on Admission (POA): [ *] Yes For continuity of documentation, please document condition throughout progress notes and discharge summary. Thank You. CLINICAL INDICATORS - SIGNS / SYMPTOMS / LABS / RESULTS AND LOCATION IN EMR Acute bleed--> 07/25(): "acute GI bleed, suspect hemorrhoids" "Anemia, acute on chronic" per 07/25 () Low hemoglobin and/or hematocrit--> 07/25 hgb 4.7 per lab Tachycardia--HR 96 per 07/25 VS RISK FACTORS / RESULTS AND LOCATION IN EMR "Cirrhosis d/t fattly liver disease with 7L paracentesis yesterday" per 07/25 ( ) TREATMENTS / RESULTS AND LOCATION IN EMR Transfusion of blood products--> 3 units of blood per 07/25 orders Protonix drip 07/25 orders NS at 100 07/25 to date per orders (This form is maintained as a part of the permanent medical record) 2014 [employer]. All Rights Reserved Maria E Crump, RN, BSN, CCDS [email or web address]
--- NOTE | 2019-07-26 12:52 | PQF ---
KOKI KINGMARIA EUGENIA [id number] -B- [id number] CLINICAL DOCUMENTATION IMPROVEMENT CLARIFICATION FORM: ICD-10 Updated PLEASE DO AN ADDENDUM TO THE PROGRESS NOTE WITH ANY DOCUMENTATION UPDATES OR ADDITIONS AND CARRY THROUGH TO DC SUMMARY. THANK YOU. DATE: 07/24/19 ATTN: Dr. Trammell Please exercise your independent, professional judgment in responding to the clarification form. Clinical indicators are provided on the bottom of this form for your review Please check appropriate box(s): [ * ] CKD without ARF/ZACHARY Stage of CKD !! In addition, please specify: Present on Admission (POA): [ * ] Yes National Kidney Foundation Guidelines for CKD Staging Stage I Kidney damage with normal or increased GFRGFR > 90 Stage IIKidney damage with mildly decreased GFRGFR 60-89 Stage III Kidney damage with moderately decreased GFRGFR 30-59 Stage IVKidney damage with severely decreased GFRGFR 16-29 Stage VKidney failureGFR<15 ESRDEnd Stage Renal DiseaseOn dialysis Acute Renal Failure/Acute Kidney Failure defined as: Increases in SCr by (>) 0.3 mg/dl within 48 hours OR- Increases in SCr by (>) 1.5 times baseline, known or presumed to have occurred within the prior 7 days OR- Urine volume < 0.5 ml/kg/hour for 6 hours (KDIGO supplement 2012 for RIFLE/ROSA criteria) For continuity of documentation, please document condition throughout progress notes and discharge summary. Thank You. CLINICAL INDICATORS - SIGNS / SYMPTOMS / LABS / RESULTS AND LOCATION IN MR Abnormal labs (BUN, creatinine, low GFR)--> 07/25 BUN 29, CREAT 1.33, GFR 42; 07/26 BUN 27, CREAT 1.08, GFR 53 H&P 07/26(Buse): "CKD-CR 1.33 AT Baseline" RISK FACTORS / RESULTS AND LOCATION IN MR "acute GI bleed" per H&P(Buse) TREATMENTS / RESULTS AND LOCATION IN MR IV fluids--> NS at 100 07/25 to date per orders Daily BMP 07/25 to date per orders (This form is maintained as a part of the permanent medical record) 2014 [employer]. All Rights Reserved Maria E Crump RN, BSN, CCDS [email or web address] [email or web address]
[2019-07-26 15:01] VITALS: TEMP 98.5
[2019-07-26 15:59] LABS: Hemoglobin 8.5 g/dL (12.0-16.0)
[2019-07-26 16:19] VITALS: BP 94/57
[2019-07-26] MEDS ORDERED: Melatonin 3 MG TAB PO SCH (21:00)
--- NOTE | 2019-07-28 23:22 | PQF ---
KOKI KING JASON MD [id number] [id number]- [id number] [id number] CLINICAL DOCUMENTATION CLARIFICATION FORM: POST DISCHARGE Addendum to original discharge summary date: ____ Late entry note date: __ DATE:07/28/2019 ATTN: JEANIE LEYVA Please exercise your independent, professional judgment in responding to the clarification form. Clinical indicators are provided on the bottom of this form for your review Please check appropriate box(s): [ ] GI bleed is due to Hemorrhoids [ ] GI bleed is due to Esophageal varices [ ] Other diagnosis [ ] Unable to determine For continuity of documentation, please document condition throughout progress notes and discharge summary. Thank You. CLINICAL INDICATORS - SIGNS / SYMPTOMS / LABS She has noted some bright red blood when she wipes because of a ruptured hemorrhoid-Documented in Family medicine H&P on 07/25 by Clifford Chawla Acute on chronic anemia likely 2/2 GI source-Documented in Family medicine H&P on 07/25 by Clifford Chawla Suspect hemorrhoids-Documented in Family medicine H&P on 07/25 by Clifford Chawla GI bleed- Documented in Family medicine PN on 07/26 by Bonnie Trammell Esophageal varices-Documented in Family medicine PN on 07/26 by Bonnie Trammell RISK FACTORS Acute on chronic anemia likely 2/2 GI source-Documented in Family medicine H&P on 07/25 by Clifford Chawla Cirrhosis,Hx esophageal varices,portal HTN-Documented in Family medicine H&P on 07/25 by Clifford Chawla TREATMENT: Transfuse 3u pRBC-Documented in Family medicine H&P on 07/25 by Clifford Chawla Protonix IV-Documented in Family medicine H&P on 07/25 by Clifford Chawla Lactulose and fifamixm,spironolactone-Documented in Family medicine PN on 07/26 by Bonnie Trammell Change Manager [employer] (This form is maintained as a part of the permanent medical record) 2014 [employer] All Rights Reserved [email or web address] [not provided] MTDD
--- NOTE | 2019-07-31 09:50 | DIS ---
DATE OF ADMISSION: 07/25/2019 DATE OF DISCHARGE: 07/26/2019 RESIDENT: Bonnie Trammell DO ADMITTING ATTENDING: Whitney Campuzano MD DISCHARGE ATTENDING: Javy Toussaint MD CONSULTS: Dr. Schmid for GI. PROCEDURE PERFORMED: Transfusions of four packed RBCs. DIAGNOSES: 1. Chronic gastrointestinal bleed with worsening anemia. 2. Anemia, hemoglobin 4.7, hematocrit 14.5. 3. Cirrhosis of the liver. 4. Diabetes mellitus type 2. 5. Hypertension. 6. Chronic kidney disease. 7. Depression. 8. Hyponatremia. 9. Gastroesophaeal reflux disease. 10. Asthma. DISCHARGE MEDICATIONS: 1. BuSpar 10 mg p.o. b.i.d. 2. Ferrous sulphate 65 mg p.o. b.i.d. 3. Lactulose 30 gm b.i.d. 4. Midodrine 5 mg p.o. t.i.d. 5. Rifaximin 550 mg p.o. b.i.d. 6. Spironolactone 100 mg p.o. b.i.d. 7. Tramadol 50 mg p.o. t.i.d. for pain p.r.n. 8. Albuterol sulfate inhaler two puffs inhaled q.6 hours. 9. Vitamin B12 of 1000 mcg p.o. daily. 10. Flexeril 10 mg t.i.d. p.r.n. 11. Fluticasone propionate nasal spray, two sprays each naris. 12. Folic acid 1 mg p.o. daily. 13. Furosemide 40 mg daily. 14. Hydroxyzine 25 mg p.o. q.8h. 16. Magnesium 100 mg p.o. daily. 17. Protonix 40 mg b.i.d. HISTORY OF PRESENT ILLNESS/HOSPITAL COURSE: Ms. Gonzalez is a 53-year-old female with a history of cirrhosis, chronic GI bleeding S/P 7 L paracentesis. Her lab during this procedure was found to have hemoglobin 5.7. We admitted Ms. De León and followed Dr. Schmid' recommendations as trying to reach a hgb level of 8 before d/c home. She was given 3 unit of packed RBCs, her hemoglobin was 8.5 upon d/c. As the patient is not actively bleeding, has no bloody emesis or dark tarry stools or bloody bowel movements. No active evidence of GI bleed requiring scope per Dr. Schmid. She was discharged on 07/26. DISPOSITION: Stable upon discharge. DISCHARGE INSTRUCTIONS: 1. Location: Home. 2. Diet: Heart healthy. 3. Activity: As tolerated. 4. Followup: Follow up with primary care as well as Dr. Schmid in 1 week. Job ID: [id number] MTDD
== END 2019-07-26 17:34 | disposition home or self-care (01) | DRG 433 ==
LOC: ERS 16:29 → T4-B 22:43
PROVIDERS: ADMIT Family Medicine; ATTEND Family Medicine
DX: K74.60 Unspecified cirrhosis of liver (principal); K92.2 Gastrointestinal hemorrhage, unspecified; E87.1 Hypo-osmolality and hyponatremia; R18.8 Other ascites; D63.8 Anemia in other chronic diseases classified elsewhere; F32.9 Major depressive disorder, single episode, unspecified; K21.9 Gastro-esophageal reflux disease without esophagitis; J45.909 Unspecified asthma, uncomplicated; K64.9 Unspecified hemorrhoids; I12.9 Hypertensive chronic kidney disease with stage 1 through stage 4 chronic kidney disease, or unspecified chronic kidney disease; E11.22 Type 2 diabetes mellitus with diabetic chronic kidney disease; Z90.49 Acquired absence of other specified parts of digestive tract; N18.2 Chronic kidney disease, stage 2 (mild)
CPT/HCPCS: 36415; 36416; 36430; 49083; 80048; 80053; 83010; 83615; 83690; 85014; 85018; 85027; 85046; 86850; 86900; 86901; 96365; 96375; C9113; J0696; J1642; J3490; P9016; P9047

== ENCOUNTER 2019-08-01 09:55 | Day surgery (SDC) | payer OTHER ==
[2019-08-01 10:44] LABS: Hemoglobin 7.3 g/dL (12.0-16.0)
[2019-08-01 10:54] LABS: Anion Gap 6 mmol/L (10-20); BUN (Urea Nitrogen) 31 mg/dL (9.8-20.1); Calc. Creatinine Clearance 0 mL/min (70-130); Calcium 7.9 mg/dL (7.8-10.44); Carbon Dioxide 24 mmol/L (22-29); Chloride 101 mmol/L (98-107); Estimated GFR-MDRD 44; Glucose 271 mg/dL (70-105); Potassium 4.9 mmol/L (3.5-5.1); Sodium 126 mmol/L (136-145)
[2019-08-01] MEDS ORDERED: Sodium Chloride 0.9% 10 ML ONE (11:03)
--- NOTE | 2019-08-01 12:20 | ULT ---
Ultrasound-guided paracentesis: HISTORY: Cirrhosis and ascites. FINDINGS: Informed consent obtained prior to the procedure. Preprocedural imaging demonstrated intrap eritoneal free fluid. Albumin was administered intravenously during the exam is requested. An area was marked in the left midabdomen, and then meticulously prepped and draped in normal sterile fashion and anesthetized with 1% buffered lidocaine. With direct sonographic guidance, a 19-gauge needle and 5 Urdu Earth[employer]keh catheter were advanced into the abdomen. After the return of fluid, the catheter was advanced, and the needle was removed. Approximately 7 L of clear straw-colored fluid was aspirated. The introducer sheath was removed, and hemostasis was achieved with direct pressure. A dry sterile dressing was placed. The patient tolerated the procedure well and without immediate complication. IMPRESSION: Technically successful ultrasound-guided paracentesis.
[2019-08-01 13:17] VITALS: BP 104/63; TEMP 98.2
== END 2019-08-01 11:45 | disposition home or self-care (01) ==
LOC: ULT 09:55
PROVIDERS: ATTEND Internal Medicine Gastroenterology
DX: K74.60 Unspecified cirrhosis of liver (principal); R18.8 Other ascites; I12.9 Hypertensive chronic kidney disease with stage 1 through stage 4 chronic kidney disease, or unspecified chronic kidney disease; E11.22 Type 2 diabetes mellitus with diabetic chronic kidney disease; N18.9 Chronic kidney disease, unspecified; D63.1 Anemia in chronic kidney disease; J44.9 Chronic obstructive pulmonary disease, unspecified; F41.9 Anxiety disorder, unspecified; Z79.899 Other long term (current) drug therapy; Z87.891 Personal history of nicotine dependence; Z88.0 Allergy status to penicillin; Z88.2 Allergy status to sulfonamides; Z88.5 Allergy status to narcotic agent; Z88.8 Allergy status to other drugs, medicaments and biological substances; Z91.018 Allergy to other foods; Z91.048 Other nonmedicinal substance allergy status
CPT/HCPCS: 49083; 80048; 85014; 85018; J1642

== ENCOUNTER → 2019-08-08 | Day surgery (SDC) | payer OTHER ==
[2019-08-07 15:30] VITALS: BMI 27.3
[~2019-08-08] MED LIST changes: -Sodium Bicarbonate 2.5 MEQ/5 ML VIAL ONE; +Sodium Chloride 0.9% 10 ML ONE
[2019-08-08 10:48] LABS: Hemoglobin 6.3 g/dL (12.0-16.0); Mean Corpuscular HGB CONC 33.7 g/dL (32.0-36.0); Mean Corpuscular Hemoglobin 33.6 pg (27.0-31.0); Mean Corpuscular Volume 99.8 fL (78.0-98.0); Mean Platelet Volume 7.4 fL (7.4-10.4); Platelet Count 94 thou/uL (130-400); Red Blood Cell (RBC) Count 1.87 mill/uL (4.20-5.40)
[2019-08-08 11:11] LABS: ALT (SGPT) 19 U/L (8-55); AST (SGOT) 29 U/L (5-34); Albumin 2.4 g/dL (3.5-5.0); Alkaline Phosphatase 93 U/L (40-110); Anion Gap 9 mmol/L (10-20); BUN (Urea Nitrogen) 24 mg/dL (9.8-20.1); Bilirubin, Total 1.6 mg/dL (0.2-1.2); Calc. Creatinine Clearance 62 mL/min (70-130); Calcium 7.8 mg/dL (7.8-10.44); Carbon Dioxide 22 mmol/L (22-29); Chloride 102 mmol/L (98-107); Estimated GFR-MDRD 41; Globulin 2.1 g/dL (2.4-3.5); Glucose 341 mg/dL (70-105); Potassium 4.4 mmol/L (3.5-5.1); Protein, Total 4.5 g/dL (6.0-8.3); Sodium 129 mmol/L (136-145)
[2019-08-08 11:32] LABS: INR-International Normal Ratio 1.5; PTT 39.8 SEC (22.9-36.1); Prothrombin Time 17.8 SEC (12.0-14.7)
[2019-08-08 11:40] LABS: Band 5 % (5-11); Eosinophils 5 % (0-10); Lymphocytes 16 % (21-51); MDiff Complete? YES; Monocytes 5 % (0-10); Neutrophil 69 % (42-75); Platelet Morphology Comment Appears Decreased; Polychromasia SLIGHT = 2-3 cells (100X) (0-2/hpf)
--- NOTE | 2019-08-08 11:54 | ULT ---
US Paracentesis with Imaging History: Ascites Comparison: Paracentesis August 01, 2019 Findings: Patient was brought to the ultrasound suite. All questions were answered. Informed consent obtained. Timeout performed. Patient's right lower quadrant was prepped and draped in normal sterile fashion. 5 mL of lidocaine wa s instilled into the superficial and deep soft tissues. After adequate local anesthesia, a 5 Tajik catheter was inserted into the peritoneal space. 7 L of s traw-colored fluid was removed. Patient tolerated the procedure well without complication. Impression: Technically successful ultrasound-guided paracentesis with removal of 7 L straw-colored f luid.
[2019-08-08 11:59] VITALS: BP 118/64; TEMP 97.4
[2019-08-08 12:22] LABS: Amphetamine Not Detected (NotDetected); Barbiturates Screen Not Detected (NotDetected); Benzodiazepine Screen Not Detected (NotDetected); Cocaine Metabolite Screen Not Detected (NotDetected); Medtox Control Line Valid? VALID (VALID); Medtox Reader # READER 4; Methadone Not Detected (NotDetected); Methamphetamine Not Detected (NotDetected); Opiate Screen Not Detected (NotDetected); Oxycodone Screen Not Detected (NotDetected); Phencyclidine (PCP) Not Detected (NotDetected); THC/Cannabinoid Screen Not Detected (NotDetected); Tricyclic Screen Not Detected (NotDetected)
[2019-08-08 14:06] LABS: Follow-up Chemistry Comp? YES; Follow-up Result - Chemistry REPORT FAXED
[2019-08-08 15:08] LABS: Ref Lab Test Ordered PETH; Reference Lab Name LABCORP
[2019-08-08 15:10] LABS: Ref Lab Test Ordered NICOTINE UR; Reference Lab Name LABCORP
== END ==
LOC: ULT 09:40
PROVIDERS: ATTEND Internal Medicine Gastroenterology
PROC: 0W9G3ZZ Drainage of Peritoneal Cavity, Percutaneous Approach (ICD-10-PCS; principal; 2019-08-08)
PROC: BW40ZZZ Ultrasonography of Abdomen (ICD-10-PCS; principal; 2019-08-08)
DX: K74.60 Unspecified cirrhosis of liver (principal); J44.9 Chronic obstructive pulmonary disease, unspecified; I12.9 Hypertensive chronic kidney disease with stage 1 through stage 4 chronic kidney disease, or unspecified chronic kidney disease; E11.22 Type 2 diabetes mellitus with diabetic chronic kidney disease; N18.9 Chronic kidney disease, unspecified; D63.1 Anemia in chronic kidney disease; M19.90 Unspecified osteoarthritis, unspecified site; F41.9 Anxiety disorder, unspecified; F32.9 Major depressive disorder, single episode, unspecified; F17.200 Nicotine dependence, unspecified, uncomplicated; Z88.0 Allergy status to penicillin; Z88.2 Allergy status to sulfonamides; Z88.5 Allergy status to narcotic agent; Z88.8 Allergy status to other drugs, medicaments and biological substances; Z91.018 Allergy to other foods
CPT/HCPCS: 49083; 80053; 80306; 80307; 85007; 85027; 85610; 85730; J1642; P9047

== ENCOUNTER 2019-08-10 08:35 | Day surgery (SDC) | payer OTHER ==
[2019-08-10] MEDS ORDERED: Sodium Chloride 0.9% 30 ML ONE (08:51)
[2019-08-10 16:37] VITALS: TEMP 98.3
[2019-08-10 17:40] VITALS: BP 124/58
== END 2019-08-10 17:46 | disposition short-term general hospital (02) ==
LOC: ONC/OP 08:35
PROVIDERS: ATTEND Internal Medicine Gastroenterology
PROC: 30233N1 Transfusion of Nonautologous Red Blood Cells into Peripheral Vein, Percutaneous Approach (ICD-10-PCS; principal; 2019-08-10)
DX: D64.9 Anemia, unspecified (principal)
CPT/HCPCS: 36416; 36430; 86850; 86900; 86901; J1642; P9016

== ENCOUNTER 2019-08-10 12:36 | Inpatient (IN) | payer OTHER ==
[2019-08-10 13:00] LABS: Hemoglobin 6.6 g/dL (12.0-16.0); Mean Corpuscular HGB CONC 33.9 g/dL (32.0-36.0); Mean Corpuscular Hemoglobin 33.3 pg (27.0-31.0); Mean Corpuscular Volume 98.3 fL (78.0-98.0); Mean Platelet Volume 7.5 fL (7.4-10.4); Platelet Count 108 thou/uL (130-400); RBC Distribution Width 14.7 % (11.5-14.5); Red Blood Cell (RBC) Count 1.99 mill/uL (4.20-5.40); White Blood Cell (WBC) Count 3.5 thou/uL (4.8-10.8)
--- NOTE | 2019-08-10 13:01 | RAD ---
Chest one view HISTORY: Syncope. COMPARISON: 07/13/2019. FINDINGS: Cardiac silhouette is rotated rightward with the patient. Pulmonary vasculature upper limit s of normal. Ill-defined infiltrate-like opacity projects over the right lateral lung base. Upper lobes are clear. No evidence of pneumothorax. Large caliber right internal jugular catheter in place. IMPRESSION: Right posterolateral lung base infiltrate. Clinical correlation regarding other signs and symptoms of pneumonitis is required.
[2019-08-10 13:15] LABS: Anisocytosis SLIGHT = 6-15 cells (100X) (0-5/hpf); Band 12 % (5-11); Eosinophils 1 % (0-10); Lymphocytes 12 % (21-51); MDiff Complete? YES; Metamyelocyte 1 % (0-0); Monocytes 7 % (0-10); Neutrophil 65 % (42-75); Platelet Morphology Comment Appears Decreased; Polychromasia MODERATE = 3-4 cells (100X) (0-2/hpf); Schistocytes SLIGHT = 2-5 cells (100X) (0-1/hpf); Tear Drops SLIGHT = 2-5 cells (100X) (0-1/hpf)
[2019-08-10 13:24] LABS: ALT (SGPT) 28 U/L (8-55); AST (SGOT) 44 U/L (5-34); Albumin 2.7 g/dL (3.5-5.0); Alkaline Phosphatase 91 U/L (40-110); Anion Gap 12 mmol/L (10-20); BUN (Urea Nitrogen) 31 mg/dL (9.8-20.1); Bilirubin, Total 1.9 mg/dL (0.2-1.2); Calc. Creatinine Clearance 0 mL/min (70-130); Calcium 8.2 mg/dL (7.8-10.44); Carbon Dioxide 20 mmol/L (22-29); Chloride 103 mmol/L (98-107); Estimated GFR-MDRD 36; Globulin 2.1 g/dL (2.4-3.5); Glucose 277 mg/dL (70-105); Potassium 5.1 mmol/L (3.5-5.1); Protein, Total 4.8 g/dL (6.0-8.3); Sodium 130 mmol/L (136-145)
[2019-08-10 13:30] LABS: Bilirubin Negative (Negative); Blood, Urine Negative (Negative); Clarity Clear (Clear); Glucose, Urine (Dipstick) Normal (Negative); Leukocyte Negative Leu/uL (Negative); Nitrite Negative (Negative); Protein, Urine (Dipstick) Negative (Neg-Trace); Urobilinogen Normal mg/dL (Less than 2)
--- NOTE | 2019-08-10 14:20 | CT ---
CT BRAIN WITHOUT CONTRAST: HISTORY: Altered mental status. FINDINGS: Comparison is made with 07/13/2019. No evidence of acute infarct, hemorrhage, midline shift, or abnormal extraaxial fluid collections is seen. The ventricular size is appropriate and the basilar cisterns patent. The bony calvarium is in tact. The visualized paranasal sinuses and mastoid air cells are well aerated. IMPRESSION: No CT evidence of acute intracranial process. POS: H
--- NOTE | 2019-08-10 15:27 | PDOC.FPRHP ---
- History of Present Illness Chief Complaint: AMS History of Present Illness: This is a 53 yo F well known to our service who presented to the ER with AMS while getting PACSOL in the treatment room. The nurse reported that the patient was tired, lethargic and her symptoms progressively worsened. The nurse states that the patient had blood in her stool. The patient had stable vitals throughout the episode. On exam, the patient is lethargic and unable to communicate with us. She does respond to pain. Unable to state any events leading up to today or what happened that brought her to the hospital. The only information is that above. No family at the bedside. ED Course: Ammonia 144, CT brain neg, CXR: right posterior lung base infiltrate - Allergies/Adverse Reactions Allergies Allergy/AdvReac Type Severity Reaction Status Date / Time acetaminophen [From Tylenol] Allergy Verified 08/07/19 15:28 aspirin Allergy Verified 08/07/19 15:28 butorphanol [From Stadol] Allergy Verified 08/07/19 15:28 codeine Allergy Verified 08/07/19 15:28 morphine Allergy Verified 08/07/19 15:28 Penicillins Allergy vomiting Verified 08/07/19 15:28 silver Allergy Verified 08/07/19 15:28 [From Tegaderm AG Mesh] Sulfa (Sulfonamide Allergy Verified 08/07/19 15:28 Antibiotics) persimmon Allergy Uncoded 08/07/19 15:28 - Home Medications Medication Instructions Recorded Confirmed Type Spironolactone [Aldactone] 100 mg PO BID 01/10/19 08/07/19 History Albuterol Sulfate [Proair HFA] 2 puff INH Q6HR PRN 05/30/19 08/07/19 History Cyanocobalamin (Vitamin B-12) 1,000 mcg PO DAILY 05/30/19 08/07/19 History [Vitamin B-12] Cyclobenzaprine [Flexeril] 10 mg PO TID PRN 05/30/19 08/07/19 History Ferrous Sulfate 65 mg PO TID 05/30/19 08/07/19 History Folic Acid [Folvite] 1 mg PO DAILY 05/30/19 08/07/19 History Magnesium Amino Acid Chelate 100 mg PO DAILY 05/30/19 08/07/19 History [Magnesium] Melatonin 10 mg PO HS 05/30/19 08/07/19 History Midodrine HCl 5 mg PO TID 05/30/19 08/07/19 History Rifaximin [Xifaxan] 550 mg PO BID 05/30/19 08/07/19 History busPIRone HCl [Buspar] 10 mg PO BID 05/30/19 08/07/19 History traMADol HCl [Tramadol HCl] 50 mg PO QID 05/30/19 08/07/19 History Fluticasone Propionate [Flonase 2 spray EA NARE DAILY 06/23/19 08/07/19 History Nasal [place]] Furosemide [Lasix] 40 mg PO DAILY-AC 06/23/19 08/07/19 History Pantoprazole [Protonix] 40 mg PO BID 06/23/19 08/07/19 History Lactulose [Kristalose] 30 gm PO BID #14 packet 06/26/19 08/07/19 Rx hydrOXYzine HCl [Hydroxyzine HCl] 25 mg PO Q8HR PRN 07/17/19 08/07/19 History Loratadine 10 mg PO HS 07/25/19 08/07/19 History - History PMHx: Anxiety, DMII, GERD, Cirrhosis, Ascites, HTN PSHx: TIPS 06/09/2018 with revisions in December 2018 and February 2019. Esophageal varices repairs with unknown dates. FHx: unable to obtain 2/2 AMS Social: former smoker, unable to obtain 2/2 AMS - Review of Systems ROS unobtainable: due to mental status - Vital signs BP: 121/65, MAP: 83, Pulse: 101, Resp: 14, Temp: 98.2 (Oral), Pain: UTR, O2 sat : 100 on (Room Air), Time: 08/10/2019 12:42. BP: 109/69, Pulse: 101, Resp: 14, Pain: UTR, O2 sat: 100 on (Room Air), End- Tidal CO2: 27, Time: 08/10/2019 14:52. Weight: 81kg - Physical Exam Constitutional: NAD HEENT: normocephalic and atraumatic, MMM -HEENT: sclera mildly icteric Neck: supple Chest: no-tender to palpation, no lesions Heart: RRR, normal S1/S2, no murmurs/rubs/gallops, pulses present, no edema Lungs: CTAB, no respiratory distress, good air movement, no rales/rhonchi, no wheezing, no retractions -Abdomen: markedly distended, patient moaned/yelled out when palpating all quadrants of the abdomen; fluid wave present -Neurological: patient responsive to sternal rub/pain, does not open eyes, does not appropriately respond Heme/Lymphatic: no unusual bruising or bleeding, no purpura, no petechia FMR H&P: Results - Labs Result Diagrams: 08/11/19 07:08 08/11/19 07:08 Lab results: WBC 3.5 thou/uL (4.8-10.8) L 08/10/19 12:42 Hgb 6.6 g/dL (12.0-16.0) L 08/10/19 12:42 Hct 19.5 % (36.0-47.0) L 08/10/19 12:42 MCV 98.3 fL (78.0-98.0) H 08/10/19 12:42 Plt Count 108 thou/uL (130-400) L 08/10/19 12:42 Band Neuts % (Manual) 12 % (5-11) H 08/10/19 12:42 Sodium 130 mmol/L (136-145) L 08/10/19 12:42 Potassium 5.1 mmol/L (3.5-5.1) 08/10/19 12:42 Chloride 103 mmol/L (98-107) 08/10/19 12:42 Carbon Dioxide 20 mmol/L (22-29) L 08/10/19 12:42 BUN 31 mg/dL (9.8-20.1) H 08/10/19 12:42 Creatinine 1.53 mg/dL (0.6-1.1) H 08/10/19 12:42 Glucose 277 mg/dL (70-105) H 08/10/19 12:42 Lactic Acid 1.5 mmol/L (0.5-2.2) 08/10/19 12:42 Calcium 8.2 mg/dL (7.8-10.44) 08/10/19 12:42 Total Bilirubin 1.9 mg/dL (0.2-1.2) H 08/10/19 12:42 AST 44 U/L (5-34) H 08/10/19 12:42 ALT 28 U/L (8-55) 08/10/19 12:42 Alkaline Phosphatase 91 U/L (40-110) 08/10/19 12:42 Ammonia 144 umol/L (18-72) H 08/10/19 14:48 B-Natriuretic Peptide 60.3 pg/mL (0-100) 08/10/19 12:42 Serum Total Protein 4.8 g/dL (6.0-8.3) L 08/10/19 12:42 Albumin 2.7 g/dL (3.5-5.0) L 08/10/19 12:42 Urine Ketones Negative mg/dL (Negative) 08/10/19 13:15 Urine Blood Negative (Negative) 08/10/19 13:15 Urine Nitrite Negative (Negative) 08/10/19 13:15 Ur Leukocyte Esterase Negative [place]/uL (Negative) 08/10/19 13:15 FMR H&P: A/P - Problem List (1) ZACHARY (acute kidney injury) Current Visit: No Status: Acute Code(s): N17.9 - ACUTE KIDNEY FAILURE, UNSPECIFIED Comment: Continue IVF's, likely due to volume depletion in conjuction with hepatorenal syndrome, serial creatinine (2) Hepatic encephalopathy Current Visit: No Status: Acute Priority: High Code(s): K72.90 - HEPATIC FAILURE, UNSPECIFIED WITHOUT COMA (3) Anemia Current Visit: No Status: Chronic Code(s): D64.9 - ANEMIA, UNSPECIFIED Qualifiers: Anemia type: unspecified type Qualified Code(s): D64.9 - Anemia, unspecified (4) CKD (chronic kidney disease) stage 3, GFR 30-59 ml/min Current Visit: No Status: Chronic Priority: Medium Code(s): N18.3 - CHRONIC KIDNEY DISEASE, STAGE 3 (MODERATE) (5) Cirrhosis of liver with ascites Current Visit: No Status: Chronic Priority: High Code(s): K74.60 - UNSPECIFIED CIRRHOSIS OF LIVER Qualifiers: Hepatic cirrhosis type: unspecified hepatic cirrhosis Qualified Code(s): K74.60 - Unspecified cirrhosis of liver; R18.8 - Other ascites Comment: SPENCER with recurrent ascites, plan for US guided paracentesis in am, GI consult pending. (6) DM type 2 (diabetes mellitus, type 2) Current Visit: No Status: Chronic Qualifiers: Diabetes mellitus intermediate project manager insulin use: without fci use Diabetes mellitus complication status: with kidney complications Diabetes mellitus complication detail: with chronic kidney disease Chronic kidney disease stage : stage 3 (moderate) Qualified Code(s): E11.22 - Type 2 diabetes mellitus with diabetic chronic kidney disease; N18.3 - Chronic kidney disease, stage 3 ( moderate) (7) Esophageal varices Current Visit: No Status: Chronic Code(s): I85.00 - ESOPHAGEAL VARICES WITHOUT BLEEDING (8) GERD (gastroesophageal reflux disease) Current Visit: No Status: Chronic Code(s): K21.9 - GASTRO-ESOPHAGEAL REFLUX DISEASE WITHOUT ESOPHAGITIS Qualifiers: Esophagitis presence: without esophagitis Qualified Code(s): K21.9 - Gastro -esophageal reflux disease without esophagitis (9) HTN (hypertension) Current Visit: No Status: Chronic Code(s): I10 - ESSENTIAL (PRIMARY) HYPERTENSION Qualifiers: Hypertension type: unspecified Qualified Code(s): I10 - Essential (primary ) hypertension (10) History of tobacco abuse Current Visit: No Status: Chronic Code(s): Z87.891 - PERSONAL HISTORY OF NICOTINE DEPENDENCE (11) Hyponatremia Current Visit: No Status: Chronic Code(s): E87.1 - HYPO-OSMOLALITY AND HYPONATREMIA (12) S/P TIPS (transjugular intrahepatic portosystemic shunt) Current Visit: No Status: Chronic - Plan 53yo F with h/o Cirrhosis with ascites, esophageal varices, Chronic Anemia, DMII , and CKD who presents with hepatic encephalopathy #Hepatic Encephalopathy AMS, unable to fully assess due to patient lethargy. Ammonia 144. Afebrile. WBC low and bands 12%. Procal 0.25. - Will cont home lactulose and titrate to 3 soft BM daily, monitor clinical status - Will tx prophylactically with rocpehin for SBP due to diffuse abdominal tenderness on exam. Diagnostic tap performed in the ER and ascitic fluid labs pending. - Dr. Schmid consulted, patient known well to him. Appreciate recs. #Cirrhosis with ascites MELD 23 - 14-15% 90 day mortality. Child-Pederson Score of 12, Class C - life expectancy 1-3yrs. On transplant list, [place]. - Will monitor labs while patient is here - daily CBC, CMP, coags - Known to Dr. Schmid, GI consulted apprec recs - Cont home lactulose, aldactone, rifaximine #H/o esophageal varices - Cont home protonix, no s/s acute bleed, VSS, will monitor #Chronic Anemia Hgb 6.6 - Will give 1uPRBCs and trend H/H. Will give more units if needed. - Cont home iron #CKDIIIb - Cr 1.53, appears at baseline - Will monitor #Chronic Thombocytopenia - Plt 108, appears at baseline, will monitor #Hx of DMII A1c in May 2019 4.6. No need to monitor sugars. Not on hyperglycemic meds. #Anxiety/depression - Cont buspar Code: Full - need to obtain when pt mental status improves and/or contact Next of kin Diet: CC, low protein VTE: SCDs, protonix IVF: NS @100cc/hr PCP: CARLY Jeff Dispo: Admit to medical for acute hepatic encephalopathy. Cont home meds, titrate lactulose, trend labs. GI consulted, apprec recs. Anticipate hospitalization <48hours. Case discussed with Dr. Faust. Addendum - Attending - Attending Attestation Date/Time: 08/10/19 3340 I personally evaluated the patient and discussed the management with Dr. Cárdenas I agree with the History, Examination, Assessment and Plan documented above with any addition or exceptions noted below. 53 yo female well known to the service presents to ER after LOC/AMS during infusion procedure. Etiology most likely Hepatic encephalopathy due to multiple reasons. However, on exam she was very tender to palpation to her abdomen with guarding. Due to mental status difficult to obtain a complete H&P. Will perform a dx tap to sent for cultures for suspected SBP. Start emperic treatment at this time until patient able to communicate and appropriate history and exam can be performed. Trend labs. Admit to medical. Will notify her GI dr of her arrival. Consider GI bleeding as cause as well. Will discuss initiation of PPI/Octreotide. Poor prognosis due to ESLF. ZACHARY present. Trend. Will continue pRBC transfusion on floor. Add gentle hydration if needed after blood products. Will continue to trend other medical co-morbidities and adjust medications as needed. Patient with very poor prognosis long-term. Michel
[2019-08-10] MEDS ORDERED: Dextrose 5% in Water 1,000 ML IV PRN (15:37)
[2019-08-10] MEDS ORDERED: Ondansetron ODT 4 MG TAB PO PRN (15:37)
[2019-08-10] MEDS ORDERED: Dextrose 50% Abboject 50 ML SYRINGE SLOW IVP PRN (15:37)
[2019-08-10] MEDS ORDERED: Ondansetron PF 4 MG/2 ML Vial IVP PRN (15:37)
[2019-08-10] MEDS ORDERED: Cyclobenzaprine 10 MG TAB PO PRN (15:39)
[2019-08-10] MEDS ORDERED: hydrOXYzine 25 MG TAB PO PRN (15:39)
[2019-08-10] MEDS ORDERED: diphenhydrAMINE 50 MG/ML VIAL IVP PRN (16:31)
[2019-08-10] MEDS ORDERED: EPINEPHrine 1 mg/ml MDV (1ml Charge) IM PRN (16:31)
[2019-08-10 16:57] LABS: INR-International Normal Ratio 1.5; PTT 37.8 SEC (22.9-36.1); Prothrombin Time 18.4 SEC (12.0-14.7)
[2019-08-10] MEDS ORDERED: Octreotide Acetate 50 MCG/ML AMP SLOW IVP SCH (17:30)
[2019-08-10] MEDS ORDERED: cefTRIAXone\\ROCEPHIN 1 GM VIAL ONE (19:39)
[2019-08-10] MEDS: Sodium Chloride 0.45% 1,000 ML IV SCH (19:50)
[2019-08-10] MEDS: cefTRIAXone\\ROCEPHIN 1 GM in Sodium Chloride 0.9% 100 ML IVPB SCH (19:51)
[2019-08-10 21:03] LABS: Pleural Fluid, Amylase Less than 30 U/L (Not Available); Pleural Fluid, Glucose 270 mg/dL; Pleural Fluid, LDH Less than 25 U/L (Not Available); Pleural Fluid, Protein Less than 1.0 g/dL
[2019-08-10 21:08] LABS: Body Fluid Source Ascites Body Fluid; Clarity Clear (Clear); RBC Count-Automated (BF) 0 /cumm; Tube # 1; WBC/Nucleated-Auto (BF) 38 uL
[2019-08-10 21:09] LABS: BF Color Colorless
[2019-08-10 21:37] LABS: BF Segmented Neutrophils 8 %; Cell Count Non Hematic 50 %; Lymphocytes 42 %
[2019-08-10] MEDS: busPIRone HCl 10 MG TAB PO SCH (22:34)
[2019-08-10] MEDS: Melatonin 3 MG TAB PO SCH (22:34)
[2019-08-10] MEDS: Spironolactone 100 MG TAB PO SCH (22:35)
[2019-08-10] MEDS: Midodrine HCl 5 MG TAB PO SCH (22:35)
[2019-08-10] MEDS: Rifaximin 550 MG TAB PO SCH (22:35)
[2019-08-10] MEDS: Pantoprazole 40 MG VIAL IVP SCH (22:52)
[2019-08-11] MEDS: Octreotide Acetate 1,250 MCG in Sodium Chloride 0.9% 250 ML 250 ML IVPB SCH (00:29)
[2019-08-11 00:55] VITALS: BMI 35.1
[2019-08-11] MEDS: Sodium Chloride 0.45% 1,000 ML IV SCH ×2 (02:22→08:13)
[2019-08-11 03:06] LABS: #Eosinphils 0.2 thou/uL (0.0-0.7); #Lymphocytes 0.7 thou/uL (1.20-3.40); #Monocytes 0.5 thou/uL (0.11-0.59); %Basophils 0.8 % (0.0-1.0); %Eosinophils 6.3 % (0.0-10.0); %Lymphocytes 19.4 % (21.0-51.0); %Monocytes 14.8 % (0.0-10.0); %Neutrophils 58.8 % (42.0-75.0); Mean Corpuscular HGB CONC 33.2 g/dL (32.0-36.0); Mean Corpuscular Hemoglobin 32.4 pg (27.0-31.0); Mean Corpuscular Volume 97.6 fL (78.0-98.0); Mean Platelet Volume 7.7 fL (7.4-10.4); Platelet Count 101 thou/uL (130-400); RBC Distribution Width 15.7 % (11.5-14.5); Red Blood Cell (RBC) Count 2.48 mill/uL (4.20-5.40); White Blood Cell (WBC) Count 3.3 thou/uL (4.8-10.8)
[2019-08-11 03:33] LABS: ALT (SGPT) 25 U/L (8-55); AST (SGOT) 36 U/L (5-34); Albumin 2.6 g/dL (3.5-5.0); Alkaline Phosphatase 86 U/L (40-110); Anion Gap 13 mmol/L (10-20); BUN (Urea Nitrogen) 30 mg/dL (9.8-20.1); Bilirubin, Total 2.3 mg/dL (0.2-1.2); Calc. Creatinine Clearance 69 mL/min (70-130); Calcium 8.2 mg/dL (7.8-10.44); Carbon Dioxide 17 mmol/L (22-29); Chloride 108 mmol/L (98-107); Estimated GFR-MDRD 42; Glucose 178 mg/dL (70-105); Potassium 4.6 mmol/L (3.5-5.1); Protein, Total 4.6 g/dL (6.0-8.3); Sodium 133 mmol/L (136-145)
--- NOTE | 2019-08-11 06:56 | PDOC.FM ---
- Subjective Subjective: Patient did not receive any lactulose overnight due to patient's mental status. Residents not informed of this. Patient remains lethargic and difficult to arouse. She does respond to pain and mumbles words. Able to move all limbs. - Objective MAR Reviewed: Yes Vital Signs & Weight: Vital Signs (12 hours) Temp Pulse Resp BP Pulse Ox 08/11/19 03:44 98.2 F 106 H 18 110/68 100 08/11/19 00:55 97.5 F L 106 H 18 132/61 99 08/10/19 22:00 99 Weight Weight 87.1 kg I&O: 08/09/19 08/10/19 08/11/19 06:59 06:59 06:59 Intake Total 860 Output Total 500 Balance 360 Result Diagrams: 08/11/19 07:08 08/11/19 07:08 Phys Exam - Physical Examination Constitutional: NAD HEENT: moist MMs Neck: supple Respiratory: clear to auscultation bilateral Cardiovascular: RRR, no significant murmur, no rub Gastrointestinal: positive bowel sounds diffusely distended, TTP diffusely of abdomen Musculoskeletal: pulses present trace edema b/l LE Neurological: moves all 4 limbs Deviation from normal: lethargic, difficult to arouse, mumbles or yells in pain but otherwise not responsive to questions Skin: normal turgor, cap refill <2 seconds Dx/Plan (1) ZACHARY (acute kidney injury) Code(s): N17.9 - ACUTE KIDNEY FAILURE, UNSPECIFIED Status: Acute (2) Hepatic encephalopathy Code(s): K72.90 - HEPATIC FAILURE, UNSPECIFIED WITHOUT COMA Status: Acute (3) Anemia Code(s): D64.9 - ANEMIA, UNSPECIFIED Status: Chronic Qualifiers: Anemia type: unspecified type Qualified Code(s): D64.9 - Anemia, unspecified (4) CKD (chronic kidney disease) stage 3, GFR 30-59 ml/min Code(s): N18.3 - CHRONIC KIDNEY DISEASE, STAGE 3 (MODERATE) Status: Chronic (5) Cirrhosis of liver with ascites Code(s): K74.60 - UNSPECIFIED CIRRHOSIS OF LIVER Status: Chronic Qualifiers: Hepatic cirrhosis type: unspecified hepatic cirrhosis Qualified Code(s): K74.60 - Unspecified cirrhosis of liver; R18.8 - Other ascites (6) DM type 2 (diabetes mellitus, type 2) Status: Chronic Qualifiers: Diabetes mellitus long term care phlebotomist insulin use: without mcfp use Diabetes mellitus complication status: with kidney complications Diabetes mellitus complication detail: with chronic kidney disease Chronic kidney disease stage : stage 3 (moderate) Qualified Code(s): E11.22 - Type 2 diabetes mellitus with diabetic chronic kidney disease; N18.3 - Chronic kidney disease, stage 3 ( moderate) (7) Esophageal varices Code(s): I85.00 - ESOPHAGEAL VARICES WITHOUT BLEEDING Status: Chronic (8) GERD (gastroesophageal reflux disease) Code(s): K21.9 - GASTRO-ESOPHAGEAL REFLUX DISEASE WITHOUT ESOPHAGITIS Status: Chronic Qualifiers: Esophagitis presence: without esophagitis Qualified Code(s): K21.9 - Gastro -esophageal reflux disease without esophagitis (9) HTN (hypertension) Code(s): I10 - ESSENTIAL (PRIMARY) HYPERTENSION Status: Chronic Qualifiers: Hypertension type: unspecified Qualified Code(s): I10 - Essential (primary ) hypertension (10) History of tobacco abuse Code(s): Z87.891 - PERSONAL HISTORY OF NICOTINE DEPENDENCE Status: Chronic (11) Hyponatremia Code(s): E87.1 - HYPO-OSMOLALITY AND HYPONATREMIA Status: Chronic (12) S/P TIPS (transjugular intrahepatic portosystemic shunt) Status: Chronic - Plan Plan: 53yo F with h/o Cirrhosis with ascites, esophageal varices, Chronic Anemia, DMII , and CKD who presents with hepatic encephalopathy #Hepatic Encephalopathy AMS, unable to fully assess due to patient lethargy. Ammonia 144. Afebrile. WBC low and bands 12%. Procal 0.25. - NG tube placed to give lactulose q1hr. Dulcolax MO now. Continue lactulose until mentation improves. - Continue rocephin for SBP ppx. Diagnostic paracentesis performed 08/10 - studies pending. - Dr. Schmid consulted, patient known well to him. Appreciate recs. Plan for possible EGD 08/11. #Cirrhosis with ascites MELD 23 - 14-15% 90 day mortality. Child-Pederson Score of 12, Class C - life expectancy 1-3yrs. On transplant list, [place]. - Will monitor labs while patient is here - daily CBC, CMP, coags - Known to Dr. Schmid, GI consulted apprec recs - Restart home meds aldactone, rifaximine #H/o esophageal varices - Will give octreotide per GI recs. - Cont home protonix, no s/s acute bleed, VSS, will monitor #Chronic Anemia Hgb 6.6->7.9 - Will give 1uPRBCs and trend H/H. Will give more units if needed. - Cont home iron #CKDIIIb - Cr 1.53 -> 1.38, appears at baseline - Will monitor #Chronic Thombocytopenia - Plt 108, appears at baseline, will monitor #Hx of DMII A1c in May 2019 4.6. Not on hyperglycemic meds. #Anxiety/depression - Cont buspar Code: Full - need to obtain when pt mental status improves and/or contact Next of kin Diet: CC, low protein VTE: SCDs, protonix IVF: NS @100cc/hr PCP: CARLY Jeff Dispo: GI consulted, apprec recs. Anticipate hospitalization >48hours. Case discussed with Dr. Toussaint Addendum - Attending - Attending Attestation Date/Time: 08/11/19 1110 I personally evaluated the patient and discussed the management with Dr. Cárdenas. I agree with the History, Examination, Assessment and Plan documented above with any addition or exceptions noted below. Patient admitted with encephalopathy in setting of cirrhosis with TIPS, as well as acute on chronic anemia. Unfortunately, the patient did not improve much overnight as lactulose was not given by nursing with no communication with us about this during multiple shifts. We were under the impression it was given as no communication otherwise. This would explain why the patient's disease course has been extended and not improved as we would expect. She is now s/p NGT placement and receiving lactulose. GI on board for exploration of possible bleed as she has had recurrent transfusions recently. Continue Rocephin and Octreotide for now, await endoscopic evaluation. Continue Lactulose.
[2019-08-11] MEDS ORDERED: Furosemide 40 MG TAB PO SCH (07:30)
[2019-08-11 07:43] LABS: INR-International Normal Ratio 1.4; Prothrombin Time 17.1 SEC (12.0-14.7)
[2019-08-11] MEDS ORDERED: Bisacodyl 10 MG SUPP PR SCH ×2 (07:45→08:00)
[2019-08-11 07:58] LABS: Band 8 % (5-11); Eosinophils 6 % (0-10); Hemoglobin 7.9 g/dL (12.0-16.0); Lymphocytes 27 % (21-51); MDiff Complete? YES; Mean Corpuscular HGB CONC 33.4 g/dL (32.0-36.0); Mean Corpuscular Hemoglobin 32.5 pg (27.0-31.0); Mean Corpuscular Volume 97.4 fL (78.0-98.0); Mean Platelet Volume 7.8 fL (7.4-10.4); Monocytes 7 % (0-10); Neutrophil 52 % (42-75); Platelet Count 104 thou/uL (130-400); Platelet Morphology Comment Appears Decreased; Polychromasia SLIGHT = 2-3 cells (100X) (0-2/hpf); RBC Distribution Width 16.2 % (11.5-14.5); Red Blood Cell (RBC) Count 2.42 mill/uL (4.20-5.40); White Blood Cell (WBC) Count 3.4 thou/uL (4.8-10.8)
[2019-08-11 08:01] LABS: ALT (SGPT) 24 U/L (8-55); AST (SGOT) 37 U/L (5-34); Albumin 2.5 g/dL (3.5-5.0); Alkaline Phosphatase 84 U/L (40-110); Anion Gap 11 mmol/L (10-20); BUN (Urea Nitrogen) 30 mg/dL (9.8-20.1); Bilirubin, Total 2.3 mg/dL (0.2-1.2); Calc. Creatinine Clearance 66 mL/min (70-130); Calcium 8.2 mg/dL (7.8-10.44); Carbon Dioxide 21 mmol/L (22-29); Chloride 107 mmol/L (98-107); Estimated GFR-MDRD 40; Glucose 173 mg/dL (70-105); Potassium 4.7 mmol/L (3.5-5.1); Protein, Total 4.5 g/dL (6.0-8.3); Sodium 134 mmol/L (136-145)
[2019-08-11] MEDS ORDERED: Lactated Ringer's 1,000 ML IV SCH (08:45)
[2019-08-11] MEDS: Ferrous Sulfate 325 MG TAB PO SCH ×2 (08:58→17:11)
[2019-08-11] MEDS ORDERED: MAGNESIUM AMINO ACID CHELATE PO SCH (09:00)
[2019-08-11] MEDS: Cyanocobalamin (Vitamin B-12) 1,000 MCG TAB PO SCH (09:06)
[2019-08-11] MEDS: busPIRone HCl 10 MG TAB PO SCH (09:06)
[2019-08-11] MEDS: Rifaximin 550 MG TAB PO SCH ×2 (09:07→21:13)
[2019-08-11] MEDS: Midodrine HCl 5 MG TAB PO SCH ×3 (09:07→21:14)
[2019-08-11] MEDS: Folic Acid 1 MG TAB PO SCH (09:07)
[2019-08-11] MEDS: Pantoprazole 40 MG VIAL IVP SCH ×2 (09:11→21:14)
[2019-08-11] MEDS: Spironolactone 100 MG TAB PO SCH (09:13)
[2019-08-11] MEDS ORDERED: Sodium Chloride 0.45% 1,000 ML IV SCH (09:30)
[2019-08-11] MEDS ORDERED: Dextrose 5 % And 0.9 % NaCl 1,000 ML IV SCH (13:15)
[2019-08-11] MEDS: Sodium Chloride 0.9% 1,000 ML IV SCH ×3 (14:02→23:56)
--- NOTE | 2019-08-11 14:42 | CON ---
DATE OF CONSULTATION: 08/11/2019 REASON FOR CONSULT: Encephalopathy and GI bleeding. HISTORY OF PRESENT ILLNESS: Ms. Gonzalez is a 53-year-old female with cirrhosis secondary to alcohol use and [id number] fatty liver. She has had complications of hepatic encephalopathy and refractory ascites. She has been seen at the [facility], where she was found not to be a candidate for transplant. She has had palliative treatment with TIPS. However, the TIPS keeps stenosing proximally in the hepatic vein and they have had to manipulate this several times. Now for the past 4 to 5 months, her refractory ascites has returned, which showed nothing thickened and they have not able to manipulate the TIPS further in [place]. With this, she has had severe portal hypertensive gastropathy, requiring chronic GI blood loss with resultant need for recurrent transfusions. She has had 13 units of blood since May 30 of this year. Previous attempts to cauterize her portal hypertensive gastropathy have been fairly futile. She was in the outpatient setting yesterday, [facility]. When she became confused and obtunded, I was contacted and recommended to start her on lactulose, so we get her admitted, there were no beds, so she was sent to the emergency room. There, she was found to have elevated ammonia over 100. They started her on some lactulose. Had blood cultures obtained and started her on some Rocephin empirically. Presently, she was taking some lactulose, but was not taking it regularly overnight. Apparently, she got obtunded and got no lactulose overnight. The resident to admit her and I will place NG tube and she is receiving lactulose hourly. PAST MEDICAL HISTORY: Portal hypertensive gastropathy, refractory ascites, hepatic encephalopathy, cirrhosis, prior history of varices with previous banding, history of TIPS, two different procedures and revisions in [place], [place], chronic anemia requiring transfusion, chronic kidney disease, type 2 diabetes, reflux, and hypertension. PAST SURGICAL HISTORY: Multiple endoscopies. Monique catheter placed in [place] [facility] probably secondary to frequent admissions. Catheter had previously been treated with vancomycin lock for Staph epidermidis contamination. MEDICATIONS: At home; 1. Lactulose 30 t.i.d. 2. Aldactone 100 b.i.d. 3. Furosemide 40 mg b.i.d. 4. Rocephin. Medications here; 1. Normal saline 100 an hour. 2. BuSpar 10 b.i.d. 3. Ceftriaxone. 4. B12. 5. Flexeril. 6. Tylenol. 7. Ferrous sulfate. 8. Folic acid. 9. Lasix 40 p.o. daily. 10. Glucagon. 11. Atarax p.r.n. 12. Lactulose 20 every hour. 13. Melatonin at bedtime. 14. Midodrine 5 p.o. t.i.d. 15. Octreotide. 16. Protonix. 17. Xifaxan 550 b.i.d. 18. Aldactone 100 p.o. b.i.d. PHYSICAL EXAMINATION: GENERAL: She is in bed. She has NG tube in place. She responds only to stimuli. She does not respond verbally appropriately, just when touch, she states "ouch, ouch, ouch." HEENT: She is mildly icteric. LUNGS: Clear. HEART: Regular rate and rhythm without clicks or murmurs. ABDOMEN: Soft. There is no evidence of inguinal hernias or umbilical hernia. EXTREMITIES: No clubbing, cyanosis, or edema. PlexiPulses are in place. LABORATORY STUDIES: White count 3.4, hemoglobin 7.9, and platelet count 104. Sodium 134, potassium 4.7, chloride 107, bicarb 21, BUN and creatinine are 30 and 1.38, and glucose 137. She had 12% bands yesterday. Hemoglobin was 6.6 on the and that was one precipitating the transfusion. 08/11, INR was 1.4. Calcium 8.2, bilirubin 2.3, AST and ALT 37 and 24, alkaline phosphatase 84. Today, albumin is 55 down from 144. Tap on 08/10 showed no evidence of SBP. Blood cultures presently are pending. IMAGING DATA: Brain CT on 08/[address] evidence of acute intracranial processes. RECOMMENDATIONS: 1. Discontinue cyclobenzaprine and any types of sedatives including the BuSpar. 2. Once the patient having bowel movements, titrate to a goal of 3 to 5 bowel movents per day. 3. Continue empiric antibiotics and PPI as well as octreotide. 4. EGD as she has severe encephalopathy and that is the main medical issue. 5. Await all cultures. 6. Continue empiric antibiotics. 7. We would change her IV fluids and continue with some . Job ID: [id number]
--- NOTE | 2019-08-11 14:58 | PDOC.PALCO ---
Palliative Care Consult - Consult Details Requesting Physician: Dr Cárdenas Reason for Consult: goals of care, advance directives assistance, complex decision-making Family Members Present: None - Pertinent HPI 53 year old female who was in the oncology unit 08/10 receiving blood products and became obtunded and confused. Evaluated, Emergency room admitted. Patient with long standing history of cirrhosis of the liver and fatty liver. Was evaluated by the transplant center in [place] but not a candidate for a transplant. As per Dr Schmid notes patient has been palliated with TIPS as well as receiving blood transfusions secondary to hypertensive gastropathy. - Pertinent PMH DM II, GERD, Alcoholic Cirrhosis, Ascites, Esophageal varices - Social History Smoking Status: Former smoker - Medications MAR Reviewed: Yes - Allergies Allergies/Adverse Reactions: Allergies Allergy/AdvReac Type Severity Reaction Status Date / Time acetaminophen [From Tylenol] Allergy Verified 08/07/19 15:28 aspirin Allergy Verified 08/07/19 15:28 butorphanol [From Stadol] Allergy Verified 08/07/19 15:28 codeine Allergy Verified 08/07/19 15:28 morphine Allergy Verified 08/07/19 15:28 Penicillins Allergy vomiting Verified 08/07/19 15:28 silver Allergy Verified 08/07/19 15:28 [From Tegaderm AG Mesh] Sulfa (Sulfonamide Allergy Verified 08/07/19 15:28 Antibiotics) persimmon Allergy Uncoded 08/07/19 15:28 - Subjective NG in place, patient restless, unarousable, moans when assessed but pronounced confusion and lethargy - ROS Non Response: due to mental status - Objective Vital Signs: Vital Signs - Most Recent Temp Pulse Resp BP Pulse Ox 96.7 F L 107 H 16 121/74 98 08/11/19 11:06 08/11/19 11:06 08/11/19 11:06 08/11/19 11:06 08/11/19 11:06 Palliative Performance Scale: 30 - Physical Exam Constitutional: encephalitic, ill appearing, moderate distress HEENT: moist MMs, scleral icterus Respiratory: no wheezing, unlabored breathing Cardiovascular: RRR Deviation from normal: distended, tympani Musculoskeletal: no clubbing Neurology: moves all 4 limbs Skin: cap refill <2 seconds Deviation from normal: encephalopathic - Problem List (1) Palliative care encounter Code(s): Z51.5 - ENCOUNTER FOR PALLIATIVE CARE Current Visit: Yes Status: Acute (2) Hepatic encephalopathy Code(s): K72.90 - HEPATIC FAILURE, UNSPECIFIED WITHOUT COMA Current Visit: No Status: Acute (3) Symptomatic anemia Code(s): D64.9 - ANEMIA, UNSPECIFIED Current Visit: No Status: Acute (4) Cirrhosis of liver with ascites Code(s): K74.60 - UNSPECIFIED CIRRHOSIS OF LIVER Current Visit: No Status: Chronic Qualifiers: Hepatic cirrhosis type: unspecified hepatic cirrhosis Qualified Code(s): K74.60 - Unspecified cirrhosis of liver; R18.8 - Other ascites - Plan/Recommendations Plan: Patient unable to communicate, no family at bedside. Will follow up to discuss goals of care with disease process that has continued trajectory to decline. Attempt to arrange a family meeting to further discuss optimal goal for living situation and care. [30] minutes spent on this encounter with >50% of the time in counseling and coordination of care. Thank you for this very appropriate consult.
[2019-08-11] MEDS: cefTRIAXone\\ROCEPHIN 1 GM in Sodium Chloride 0.9% 100 ML IVPB SCH (17:27)
[2019-08-11] MEDS: Melatonin 3 MG TAB PO SCH (21:13)
[2019-08-12] MEDS: Octreotide Acetate 1,250 MCG in Sodium Chloride 0.9% 250 ML 250 ML IVPB SCH (00:14)
--- NOTE | 2019-08-12 06:02 | PDOC.FM ---
- Subjective Subjective: Pt is AxO x4 this morning. She is hungry and wants to eat. She does not remember what happened on admission. Just says she knows she only took lactulose once per day instead of as prescribed b/c it makes her sick. Wants to get up and use the restroom. Pure wick in place currently. - Objective MAR Reviewed: Yes Vital Signs & Weight: Vital Signs (12 hours) Temp Pulse Resp BP Pulse Ox 08/11/19 20:00 99 08/11/19 18:46 98.3 F 115 H 20 120/79 99 Weight Admit Weight 87.1 kg Weight 87.1 kg I&O: 08/10/19 08/11/19 08/12/19 06:59 06:59 06:59 Intake Total 860 1250 Output Total 500 604 Balance 360 646 Result Diagrams: 08/11/19 07:08 08/12/19 07:05 Phys Exam - Physical Examination Constitutional: NAD Respiratory: clear to auscultation bilateral Cardiovascular: RRR (systolic murmur) Gastrointestinal: soft (extremely distended, non-TTP. hypoactive BS) Musculoskeletal: no edema, pulses present Psychiatric: normal affect, A&O x 3 Dx/Plan (1) Palliative care encounter Code(s): Z51.5 - ENCOUNTER FOR PALLIATIVE CARE Status: Acute (2) ZACHARY (acute kidney injury) Code(s): N17.9 - ACUTE KIDNEY FAILURE, UNSPECIFIED Status: Acute (3) GI bleed Code(s): K92.2 - GASTROINTESTINAL HEMORRHAGE, UNSPECIFIED Status: Acute Qualifiers: GI bleed type/associated pathology: unspecified gastrointestinal hemorrhage type Qualified Code(s): K92.2 - Gastrointestinal hemorrhage, unspecified (4) Hepatic encephalopathy Code(s): K72.90 - HEPATIC FAILURE, UNSPECIFIED WITHOUT COMA Status: Acute (5) Hypokalemia Code(s): E87.6 - HYPOKALEMIA Status: Acute (6) Anemia Code(s): D64.9 - ANEMIA, UNSPECIFIED Status: Chronic Qualifiers: Anemia type: unspecified type Qualified Code(s): D64.9 - Anemia, unspecified (7) CKD (chronic kidney disease) stage 3, GFR 30-59 ml/min Code(s): N18.3 - CHRONIC KIDNEY DISEASE, STAGE 3 (MODERATE) Status: Chronic (8) Cirrhosis Code(s): K74.60 - UNSPECIFIED CIRRHOSIS OF LIVER Status: Chronic Qualifiers: Ascites presence: with ascites (9) DM type 2 (diabetes mellitus, type 2) Status: Chronic Qualifiers: Diabetes mellitus chcf insulin use: without long term acute care registered nurse use Diabetes mellitus complication status: with kidney complications Diabetes mellitus complication detail: with chronic kidney disease Chronic kidney disease stage : stage 3 (moderate) Qualified Code(s): E11.22 - Type 2 diabetes mellitus with diabetic chronic kidney disease; N18.3 - Chronic kidney disease, stage 3 ( moderate) (10) HTN (hypertension) Code(s): I10 - ESSENTIAL (PRIMARY) HYPERTENSION Status: Chronic Qualifiers: Hypertension type: unspecified Qualified Code(s): I10 - Essential (primary ) hypertension (11) S/P TIPS (transjugular intrahepatic portosystemic shunt) Status: Chronic - Plan Plan: Hepatic Encephalopathy - NG tube placed to give lactulose q1hr. Removed. - Continue rocephin for SBP ppx. Diagnostic paracentesis performed 08/10 - Dr. Schmid consulted, patient known well to him. Appreciate recs. Plan for possible EGD pending mentation improvement. - keep patient NPO pending EGD today. - continue lactulose 3-5 BMs Cirrhosis with ascites MELD 23 - 14-15% 90 day mortality. Child-Pederson Score of 12, Class C - life expectancy 1-3yrs. On transplant list, [place]. - Will monitor labs while patient is here - daily CBC, CMP, coags - Restart home meds aldactone, rifaximine H/o esophageal varices - Will give octreotide per GI recs. - Cont home protonix, no s/s acute bleed, VSS, will monitor Chronic Anemia Hgb 6.6->7.9 - s/p 1uPRBCs and trend H/H. Will give more units if needed. - Cont home iron CKDIIIb - Cr 1.53 -> 1.38, appears at baseline - Will monitor Chronic Thombocytopenia - Plt 108, appears at baseline, will monitor Hx of DMII A1c in May 2019 4.6. Not on hyperglycemic meds. Anxiety/depression - held buspar per GI due to mentation, may restart since pt is now AxO x3 Code: Full - will verify w/ pt this AM. Diet: NPO VTE: SCDs, protonix IVF: NS @100cc/hr PCP: CARLY Jeff Dispo: GI consulted, apprec recs. Anticipate hospitalization > 48hours.
[2019-08-12 07:29] LABS: INR-International Normal Ratio 1.5
[2019-08-12 07:30] LABS: PTT 36.4 SEC (22.9-36.1)
[2019-08-12 07:37] LABS: ALT (SGPT) 25 U/L (8-55); AST (SGOT) 43 U/L (5-34); Albumin 2.3 g/dL (3.5-5.0); Alkaline Phosphatase 76 U/L (40-110); Anion Gap 9 mmol/L (10-20); BUN (Urea Nitrogen) 27 mg/dL (9.8-20.1); Bilirubin, Total 2.2 mg/dL (0.2-1.2); Calc. Creatinine Clearance 64 mL/min (70-130); Calcium 7.6 mg/dL (7.8-10.44); Carbon Dioxide 19 mmol/L (22-29); Chloride 112 mmol/L (98-107); Estimated GFR-MDRD 38; Globulin 1.7 g/dL (2.4-3.5); Glucose 168 mg/dL (70-105); Potassium 3.9 mmol/L (3.5-5.1); Sodium 136 mmol/L (136-145)
[2019-08-12] MEDS: Pantoprazole 40 MG VIAL IVP SCH ×2 (07:50→19:41)
[2019-08-12] MEDS: Rifaximin 550 MG TAB PO SCH ×2 (07:51→19:41)
[2019-08-12] MEDS: Ferrous Sulfate 325 MG TAB PO SCH ×2 (07:51→17:02)
[2019-08-12] MEDS: Cyanocobalamin (Vitamin B-12) 1,000 MCG TAB PO SCH (07:51)
[2019-08-12] MEDS: Midodrine HCl 5 MG TAB PO SCH ×3 (07:51→19:41)
[2019-08-12] MEDS: Folic Acid 1 MG TAB PO SCH (07:51)
[2019-08-12 08:39] LABS: Eosinophils 2 % (0-10); Hemoglobin 6.8 g/dL (12.0-16.0); Hypochromia SLIGHT = 6-15 cells (100X) (0-5/hpf); Lymphocytes 17 % (21-51); MDiff Complete? YES; Mean Corpuscular HGB CONC 34.2 g/dL (32.0-36.0); Mean Corpuscular Hemoglobin 33.3 pg (27.0-31.0); Mean Corpuscular Volume 97.4 fL (78.0-98.0); Mean Platelet Volume 7.2 fL (7.4-10.4); Monocytes 11 % (0-10); Neutrophil 70 % (42-75); Platelet Count 95 thou/uL (130-400); Platelet Morphology Comment Appears Decreased; Polychromasia SLIGHT = 2-3 cells (100X) (0-2/hpf); RBC Distribution Width 15.6 % (11.5-14.5); Red Blood Cell (RBC) Count 2.03 mill/uL (4.20-5.40); White Blood Cell (WBC) Count 3.1 thou/uL (4.8-10.8)
--- NOTE | 2019-08-12 12:31 | PRG ---
DATE OF SERVICE: 08/12/2019 SUBJECTIVE: Ms. Gonzalez is back to her baseline mental status. She is alert and can answer questions appropriately. This is after heavy lactulose administration yesterday. The nasogastric tube is out. She says she had a large solid bowel movement earlier this morning. She is receiving 1 more unit RBC transfusion today. She has remained hemodynamically stable. She has no complaints of abdominal pain. OBJECTIVE: VITAL SIGNS: Temperature 97.7, pulse 100, blood pressure 106/69, 100% oxygen saturation on room air. GENERAL: No acute distress. HEART: Regular rate and rhythm. LUNGS: Clear to auscultation bilaterally. ABDOMEN: Distended, but soft. Nontender to palpation. EXTREMITIES: No peripheral edema. LABORATORY STUDIES: Hemoglobin back down to 6.8, WBC 3.1, platelets 95. INR 1.5. Sodium 136, potassium 3.9, BUN 27, creatinine 1.44, total bilirubin 2.2. Alkaline phosphatase 76, AST 43, ALT 25, ammonia 48, glucose 271. Ascites fluid culture from 08/10/2019 shows no growth at 36 hours. No WBCs seen. Blood cultures from admission also showed no growth to date. ASSESSMENT AND PLAN: 1. Hepatic encephalopathy, recurrent, now again resolved, back to baseline mental status with lactulose. I discussed with the patient the importance of compliance with both her rifaximin and her lactulose every day, continue with rifaximin and the lactulose, titrate to 3-5 bowel movements per day. 2. Chronic blood loss anemia. 3. Severe portal hypertensive gastropathy. The patient has required a lot of transfusions over the past few months. This is due to slow chronic blood loss from diffuse portal hypertensive gastropathy, which has been refractory to multiple attempts at endoscopic therapy. 4. Difficult situation. Dr. Schmid has recommended not pursuing repeat EGD at this time, and I would agree with that. We will not plan for any procedure. Continue on the PPI. Octreotide can be discontinued on hospital discharge. She has close followup with Dr. Schmid as well as her liver transplant team in [place]. We will give her a low-sodium diet today. Job ID: [id number]
[2019-08-12] MEDS: HumaLOG 300 UNITS/3 ML VIAL SC PRN ×2 (12:52→17:04)
[2019-08-12] MEDS ORDERED: traMADol HCl 50 MG TAB PO PRN (15:17)
[2019-08-12 15:30] LABS: HBCM Index 0.06 S/CO (0-0.79); HBSAB Concentration 0.48 mIU/mL; HBSAg Index 0.18 S/CO (0-0.99); Hep B Surf AB Non-Reactive (NonReactive); Hep B Surf Ag Non-Reactive S/CO (NonReactive); Hepatitis B Core IgM Abs Non-Reactive (NonReactive)
[2019-08-12] MEDS: Sodium Chloride 0.9% 1,000 ML IV SCH ×2 (15:37→19:49)
[2019-08-12 16:26] LABS: Hemoglobin 7.9 g/dL (12.0-16.0)
[2019-08-12] MEDS: cefTRIAXone\\ROCEPHIN 1 GM in Sodium Chloride 0.9% 100 ML IVPB SCH (17:02)
[2019-08-12 19:21] VITALS: TEMP 98.3
[2019-08-12] MEDS: Melatonin 3 MG TAB PO SCH (19:42)
[2019-08-12] MEDS ORDERED: Cyclobenzaprine 10 MG TAB PO PRN (20:00)
[2019-08-13] MEDS: HumaLOG 300 UNITS/3 ML VIAL SC PRN ×2 (05:31→11:15)
--- NOTE | 2019-08-13 06:03 | PDOC.FM ---
- Subjective Subjective: Pt is feeling well this AM. She wants to go home since no procedural intervention is going to be done. Will f/u w/ her liver team in [place]. She has been taking her lactulose and rifaximin. She feels itchy today. - Objective MAR Reviewed: Yes Vital Signs & Weight: Vital Signs (12 hours) Temp Pulse Resp BP Pulse Ox 08/12/19 20:00 99 08/12/19 19:19 98.3 F 106 H 21 H 109/73 99 Weight Admit Weight 87.1 kg Weight 87.1 kg I&O: 08/11/19 08/12/19 08/13/19 06:59 06:59 06:59 Intake Total 860 1250 600 Output Total 500 604 Balance 360 646 600 Result Diagrams: 08/12/19 16:13 08/12/19 07:05 Phys Exam - Physical Examination Constitutional: NAD Respiratory: clear to auscultation bilateral Cardiovascular: RRR + distension, soft, fluid-filled, same as yesterday Psychiatric: normal affect, A&O x 3 Dx/Plan (1) Palliative care encounter Code(s): Z51.5 - ENCOUNTER FOR PALLIATIVE CARE Status: Acute (2) ZACHARY (acute kidney injury) Code(s): N17.9 - ACUTE KIDNEY FAILURE, UNSPECIFIED Status: Acute (3) GI bleed Code(s): K92.2 - GASTROINTESTINAL HEMORRHAGE, UNSPECIFIED Status: Acute Qualifiers: GI bleed type/associated pathology: unspecified gastrointestinal hemorrhage type Qualified Code(s): K92.2 - Gastrointestinal hemorrhage, unspecified (4) Hepatic encephalopathy Code(s): K72.90 - HEPATIC FAILURE, UNSPECIFIED WITHOUT COMA Status: Acute (5) Hypokalemia Code(s): E87.6 - HYPOKALEMIA Status: Acute (6) Anemia Code(s): D64.9 - ANEMIA, UNSPECIFIED Status: Chronic Qualifiers: Anemia type: unspecified type Qualified Code(s): D64.9 - Anemia, unspecified (7) CKD (chronic kidney disease) stage 3, GFR 30-59 ml/min Code(s): N18.3 - CHRONIC KIDNEY DISEASE, STAGE 3 (MODERATE) Status: Chronic (8) Cirrhosis Code(s): K74.60 - UNSPECIFIED CIRRHOSIS OF LIVER Status: Chronic Qualifiers: Ascites presence: with ascites (9) DM type 2 (diabetes mellitus, type 2) Status: Chronic Qualifiers: Diabetes mellitus fpc insulin use: without fpc use Diabetes mellitus complication status: with kidney complications Diabetes mellitus complication detail: with chronic kidney disease Chronic kidney disease stage : stage 3 (moderate) Qualified Code(s): E11.22 - Type 2 diabetes mellitus with diabetic chronic kidney disease; N18.3 - Chronic kidney disease, stage 3 ( moderate) (10) HTN (hypertension) Code(s): I10 - ESSENTIAL (PRIMARY) HYPERTENSION Status: Chronic Qualifiers: Hypertension type: unspecified Qualified Code(s): I10 - Essential (primary ) hypertension (11) S/P TIPS (transjugular intrahepatic portosystemic shunt) Status: Chronic - Plan Plan: 53yo F admitted for: Hepatic Encephalopathy - NG tube placed to give lactulose q1hr. Removed. - Continue rocephin for SBP ppx. Diagnostic paracentesis performed 08/10. Studies neg for SBP. - Dr. Schmid consulted, patient known well to him. Appreciate recs. No plan for EGD. F/U w/ liver team. - Low sodium diet. - continue lactulose 3-5 BMs Cirrhosis with ascites MELD 23 - 14-15% 90 day mortality. Child-Pederson Score of 12, Class C - life expectancy 1-3yrs. On transplant list, [place]. - Will monitor labs while patient is here - daily CBC, CMP, coags - home meds aldactone, rifaximine H/o esophageal varices - Will give octreotide per GI recs. - Cont home protonix, no s/s acute bleed, VSS, will monitor Chronic Anemia Hgb 6.6->7.9 - s/p 2uPRBCs and trend H/H. - Cont home iron CKDIIIb - Cr 1.53 -> 1.38, appears at baseline - Will monitor Chronic Thombocytopenia - Plt 108, appears at baseline, will monitor Hx of DMII A1c in May 2019 4.6. Not on hyperglycemic meds. Anxiety/depression - held buspar per GI due to mentation, may restart since pt is now AxO x3 Code: Full - will verify w/ pt this AM. Diet: NPO VTE: SCDs, protonix IVF: NS @100cc/hr PCP: CARLY Jeff Dispo: GI consulted, apprec recs. Anticipate discharge today.
[2019-08-13 06:58] VITALS: BP 109/70
[2019-08-13] MEDS: Pantoprazole 40 MG VIAL IVP SCH (07:36)
[2019-08-13] MEDS: Cyanocobalamin (Vitamin B-12) 1,000 MCG TAB PO SCH (07:36)
[2019-08-13] MEDS: Rifaximin 550 MG TAB PO SCH (07:36)
[2019-08-13] MEDS: Midodrine HCl 5 MG TAB PO SCH (07:36)
[2019-08-13] MEDS: Ferrous Sulfate 325 MG TAB PO SCH (07:36)
[2019-08-13] MEDS: Folic Acid 1 MG TAB PO SCH (07:36)
--- NOTE | 2019-08-13 09:49 | PRG ---
DATE OF SERVICE: 08/13/2019 SUBJECTIVE: Ms. Gonzalez is a feeling well. She has had normal bowel movements. Remains hemodynamically stable. Mentation remains at baseline. She is ready to go home today. OBJECTIVE: VITAL SIGNS: Temperature 98.3, pulse 97, blood pressure 109/70, and 95% oxygen saturation on room air. GENERAL: No acute distress. HEART: Regular rate and rhythm. LUNGS: Clear to auscultation bilaterally. ABDOMEN: Distended but soft, nontender to palpation. EXTREMITIES: No peripheral edema. ASSESSMENT AND PLAN: 1. Hepatic encephalopathy, recurrent, now again resolved back to baseline mental status. Again, advised continuing the lactulose, titrating just 3 to 5 bowel movements per day. Also, continue the rifaximin. 2. Chronic blood-loss anemia. 3. Severe portal hypertensive gastropathy. No plan for esophagogastroduodenoscopy this admission. Continue on acid suppression. 4. Cirrhosis. The patient will continue to follow up with Dr. Schmid, has weekly lab monitoring, will also continue to follow up with her liver transplant team in [place]. Gastroenterology will sign off, but please call back with any questions or concerns. Job ID: [id number]
[2019-08-13] MEDS ORDERED: Hepatitis B Vaccine 10 MCG/0.5 ML SYR IM ONE (14:00)
[2019-08-14] MEDS ORDERED: Recombivax (HEP-B) 5 MCG/0.5 ML VIAL IM ONE (10:04)
--- NOTE | 2019-08-15 10:14 | DIS ---
DATE OF ADMISSION: 08/10/2019 DATE OF DISCHARGE: 08/13/2019 DISCHARGE ATTENDING: Tone Sky MD. RESIDENT: Amy Lee MD CONSULTS: 1. Palliative Care. 2. Gastroenterology. PROCEDURES: 1. Chest x-ray. Impression: Right posterior lateral lung base infiltrate. Clinical correlation regarding other signs and symptoms of pneumonitis required. 2. CT of the brain without contrast. Impression: No CT evidence of acute intracranial process. PRIMARY DIAGNOSIS: Acute hepatic encephalopathy. SECONDARY DIAGNOSES: 1. Cirrhosis with ascites. 2. History of esophageal varices. 3. Chronic anemia. 4. Chronic kidney disease stage 3B. 5. Chronic thrombocytopenia. 6. History of type 2 diabetes. 7. Anxiety/depression. DISCHARGE MEDICATIONS: 1. Vitamin B12 of 1000 mcg p.o. daily. 2. Ferrous sulfate 325 mg p.o. b.i.d. with meals. 3. Folic acid 1 mg p.o. daily. 4. Hydroxyzine 25 mg p.o. q.8 hours p.r.n. 5. Melatonin 9 mg p.o. nightly. 6. Midodrine 5 mg p.o. t.i.d. 7. Xifaxan 550 mg p.o. b.i.d. 8. Tramadol 50 mg p.o. q.i.d. p.r.n. 9. Lactulose 30 g p.o. b.i.d. 10. Protonix 40 mg p.o. b.i.d. 11. Spironolactone 100 mg p.o. b.i.d. 12. Magnesium 100 mg p.o. daily. 13. Lasix 40 mg p.o. daily. 14. BuSpar 10 mg p.o. b.i.d. 15. Loratadine 10 mg p.o. nightly. 16. Albuterol 2 puffs inhaler q.6 hours p.r.n. 17. Fluticasone propionate 2 sprays each naris daily. Discontinued medications, none. HOSPITAL COURSE AND HISTORY OF PRESENT ILLNESS: This is a 53-year-old female with past medical history of cirrhosis, who presented to the emergency room with altered mental status while getting an infusion in the Oncology Department as an outpatient. The nurse had reported the patient was very tired and lethargic and that her symptoms progressively worsened. She also stated that the patient had blood in her stool. On admission, the patient was lethargic and unable to communicate. She responded to pain. Otherwise, she did not have any family with her and no other information was obtained. Her ammonia level was 144. The patient does have a surgical history of a TIPS procedure in May of 2018, which has had many revisions. She has also had multiple esophageal varices repairs by her Liver Team in [place]. The patient was given lactulose to be titrated up to 3 soft bowel movements daily. Initiation of lactulose was delayed; so it was given q1h through an NG tube initially. She was prophylactically treated with Rocephin for spontaneous bacterial peritonitis due to diffuse abdominal tenderness on exam. Diagnostic paracentesis was performed, which did not show any evidence of peritonitis or infection. Dr. Schmid of Gastroenterology was consulted; he knows the patient very well. He determined that the patient did not need an EGD at this time since she had a chronic anemia and slow bleed. Her MELD score at this admission was determined to be 23 showing a 14-15% 90 day mortality. The patient did receive 2 units of packed red blood cells while she was hospitalized due to her anemia with hemoglobin below 7 on two occasions. Her chronic kidney disease and thrombocytopenia appeared stable. For her history of diabetes, her last A1c in May of 2019 was 4.6, so she was not on any medication. Her BuSpar was continued for her anxiety and depression. The patient's mental status improved with lactulose. She was alert and oriented x4 on her 2nd hospital day. Palliative Care had been consulted, but they saw the patient while she was still disoriented and there were no family members available for discussion. The patient could not quite remember anything that had happened prior to the admission or why she became encephalopathic. On the day prior to discharge, the patient's hemoglobin had improved to 7.9. The hepatitis labs revealed that she was negative for hepatitis C, but she lacked immunity for Hep B. She was vaccinated for hepatitis B prior to discharge. Hep A lab was pending at the time of this dictation. DISPOSITION: Guarded. PROGNOSIS: Poor. DISCHARGE DIAGNOSES: 1. Location: Home. 2. Diet: Regular. 3. Activity: As tolerated. 4. Followup: Follow up with Dr. Schmid in the coming week for her weekly labs, paracentesis, and possible blood transfusion. Follow up with Liver Team in [place]. Amy Lee MD PGY1 Job ID: [id number] [facility]
== END 2019-08-13 11:54 | disposition home or self-care (01) | DRG 442 ==
LOC: ERS 12:36 → ERHOLD 16:24 → OBSVTOIN 16:24 → T4-A 22:01
PROVIDERS: ADMIT Student in an Organized Health Care Education/Training Program; ATTEND Student in an Organized Health Care Education/Training Program
PROC: 0W9G3ZZ Drainage of Peritoneal Cavity, Percutaneous Approach (ICD-10-PCS; principal; 2019-08-10)
PROC: 30233N1 Transfusion of Nonautologous Red Blood Cells into Peripheral Vein, Percutaneous Approach (ICD-10-PCS; 2019-08-10)
PROC: 3E0234Z Introduction of Serum, Toxoid and Vaccine into Muscle, Percutaneous Approach (ICD-10-PCS; 2019-08-13)
DX: K72.00 Acute and subacute hepatic failure without coma (principal); N17.9 Acute kidney failure, unspecified; E87.1 Hypo-osmolality and hyponatremia; I85.10 Secondary esophageal varices without bleeding; K76.6 Portal hypertension; F41.9 Anxiety disorder, unspecified; K21.9 Gastro-esophageal reflux disease without esophagitis; N18.3 Chronic kidney disease, stage 3 (moderate); F32.9 Major depressive disorder, single episode, unspecified; E11.22 Type 2 diabetes mellitus with diabetic chronic kidney disease; D63.1 Anemia in chronic kidney disease; D69.6 Thrombocytopenia, unspecified; K70.31 Alcoholic cirrhosis of liver with ascites; K76.0 Fatty (change of) liver, not elsewhere classified; K31.89 Other diseases of stomach and duodenum; E87.6 Hypokalemia; D50.0 Iron deficiency anemia secondary to blood loss (chronic); I12.9 Hypertensive chronic kidney disease with stage 1 through stage 4 chronic kidney disease, or unspecified chronic kidney disease; Z23 Encounter for immunization; Z88.5 Allergy status to narcotic agent; Z88.0 Allergy status to penicillin; Z88.2 Allergy status to sulfonamides; Z88.8 Allergy status to other drugs, medicaments and biological substances; Z79.899 Other long term (current) drug therapy; Z79.51 Long term (current) use of inhaled steroids
CPT/HCPCS: 36415; 36416; 36430; 49083; 51701; 70450; 71045; 80053; 80307; 81003; 82140; 82150; 82945; 83605; 83615; 83880; 84145; 84157; 84484; 85025; 85060; 85610; 85730; 86705; 86706; 86708; 86850; 86900; 86901; 87040; 87070; 87205; 87340; 87521; 89051; 90744; 93005; A4353; C9113; J0696; J1642; J2354; J3490; J7050; P9016

== ENCOUNTER 2019-08-15 09:20 | Day surgery (SDC) | payer OTHER ==
[2019-08-15] MEDS ORDERED: Albumin 25% 200 ML ONE (09:49)
[2019-08-15] MEDS ORDERED: Sodium Chloride 0.9% 20 ML ONE (09:50)
--- NOTE | 2019-08-15 11:54 | ULT ---
Exam: Ultrasound guided paracentesis HISTORY: Ascites COMPARISON: 08/08/2019 FINDINGS: Successful ultrasound-guided paracentesis. Total of 7 L of yellow color ascites was aspirat ed. TECHNIQUE: Consent obtained reformatory ultrasound-guided paracentesis. Left lower quadrantwas deemed appropriate. Skin was prepped and draped in a sterile fashion. 1% lidocaine, buffered with sodium bicarbonate was used for local anesthesia. Under ultrasound guidance, a 5 Polish 7 cm [employer] catheter i s advanced in the peritoneal space. A total of 7 L of yellow color ascites was aspirated. No immediate or postprocedural complications IMPRESSION: Successful ultrasound-guided paracentesis.
[2019-08-15 12:10] LABS: Hemoglobin 7.2 g/dL (12.0-16.0)
[2019-08-15 12:31] LABS: Anion Gap 8 mmol/L (10-20); BUN (Urea Nitrogen) 24 mg/dL (9.8-20.1); Calc. Creatinine Clearance 0 mL/min (70-130); Calcium 7.4 mg/dL (7.8-10.44); Carbon Dioxide 18 mmol/L (22-29); Chloride 105 mmol/L (98-107); Estimated GFR-MDRD 45; Glucose 235 mg/dL (70-105); Potassium 4.5 mmol/L (3.5-5.1)
[2019-08-15 12:47] VITALS: BMI 27.3
[2019-08-15 12:48] VITALS: BP 110/56; TEMP 97.3
[2019-08-15 12:51] LABS: Sodium 126 mmol/L (136-145)
== END 2019-08-15 11:30 | disposition home or self-care (01) ==
LOC: ULT 09:20
PROVIDERS: ATTEND Internal Medicine Gastroenterology
PROC: BW40ZZZ Ultrasonography of Abdomen (ICD-10-PCS; principal; 2019-08-15)
PROC: 0W9G3ZZ Drainage of Peritoneal Cavity, Percutaneous Approach (ICD-10-PCS; principal; 2019-08-15)
DX: K74.60 Unspecified cirrhosis of liver (principal); R18.8 Other ascites; I12.9 Hypertensive chronic kidney disease with stage 1 through stage 4 chronic kidney disease, or unspecified chronic kidney disease; E11.22 Type 2 diabetes mellitus with diabetic chronic kidney disease; N18.9 Chronic kidney disease, unspecified; J44.9 Chronic obstructive pulmonary disease, unspecified; F41.9 Anxiety disorder, unspecified; F32.9 Major depressive disorder, single episode, unspecified; F17.200 Nicotine dependence, unspecified, uncomplicated; K21.9 Gastro-esophageal reflux disease without esophagitis; Z79.899 Other long term (current) drug therapy; Z88.0 Allergy status to penicillin; Z88.5 Allergy status to narcotic agent; Z88.8 Allergy status to other drugs, medicaments and biological substances; Z91.018 Allergy to other foods
CPT/HCPCS: 49083; 80048; 85014; 85018; 99211; G0463; J1642; P9047

== ENCOUNTER 2019-08-21 08:40 | Day surgery (SDC) | payer OTHER ==
[2019-08-21] MEDS ORDERED: Sodium Chloride 0.9% 20 ML ONE (08:52)
[2019-08-21] MEDS ORDERED: Albumin 25% 200 ML ONE (08:52)
[2019-08-21 09:50] LABS: Anion Gap 12 mmol/L (10-20); BUN (Urea Nitrogen) 35 mg/dL (9.8-20.1); Calc. Creatinine Clearance 34 mL/min (70-130); Calcium 7.9 mg/dL (7.8-10.44); Carbon Dioxide 16 mmol/L (22-29); Chloride 98 mmol/L (98-107); Estimated GFR-MDRD 21; Glucose 187 mg/dL (70-105); Potassium 5.1 mmol/L (3.5-5.1); Sodium 121 mmol/L (136-145)
[2019-08-21 10:02] LABS: Hemoglobin 5.9 g/dL (12.0-16.0)
[2019-08-21 11:28] VITALS: BMI 27.3
[2019-08-21 11:29] VITALS: BP 112/54; TEMP 98.1
--- NOTE | 2019-08-21 11:35 | ULT ---
Exam: Ultrasound guided paracentesis HISTORY: Ascites COMPARISON: 08/15/2019 FINDINGS: Successful ultrasound-guided paracentesis. Total of 7 L of yellow color ascites was aspirat ed. TECHNIQUE: Consent obtained reformatory ultrasound-guided paracentesis. Right lower quadrant was deem ed appropriate. Skin was prepped and draped in a sterile fashion. 1% lidocaine, buffered with sodium bicarbonate was used for local anesthesia. Under ultrasound guidance, a 5 Kinyarwanda 7 cm Yueh cat heter is advanced in the peritoneal space. A total of 7 L of yellow color ascites was aspirated. No immediate or postprocedural complications IMPRESSION: Successful ultrasound-guided paracentesis.
[2019-08-21] MEDS ORDERED: FLU VACC QS2019-20(6MOS UP)/PF 60 MCG/0.5 ML SYRINGE IM ONE (15:30)
== END 2019-08-21 11:00 | disposition home or self-care (01) ==
LOC: ULT 08:40
PROVIDERS: ATTEND Internal Medicine Gastroenterology
PROC: BW40ZZZ Ultrasonography of Abdomen (ICD-10-PCS; principal; 2019-08-21)
PROC: 0W9G3ZZ Drainage of Peritoneal Cavity, Percutaneous Approach (ICD-10-PCS; principal; 2019-08-21)
DX: R18.8 Other ascites (principal); Z79.899 Other long term (current) drug therapy; Z88.0 Allergy status to penicillin; Z88.2 Allergy status to sulfonamides; Z88.5 Allergy status to narcotic agent; Z88.6 Allergy status to analgesic agent; Z88.8 Allergy status to other drugs, medicaments and biological substances; Z91.018 Allergy to other foods
CPT/HCPCS: 49083; 80048; 85014; 85018; J1642; P9047

== ENCOUNTER 2019-08-21 10:57 | Inpatient (IN) | payer OTHER ==
[2019-08-21 12:21] LABS: INR-International Normal Ratio 1.8; Prothrombin Time 21.2 SEC (12.0-14.7)
[2019-08-21 12:22] LABS: PTT 88.5 SEC (22.9-36.1)
[2019-08-21 12:51] LABS: #Basophils 0.1 thou/uL (0.0-0.2); #Lymphocytes 0.3 thou/uL (1.20-3.40); #Monocytes 0.7 thou/uL (0.11-0.59); #Neutrophils 9.7 thou/uL (1.40-6.50); %Basophils 1.1 % (0.0-1.0); %Eosinophils 0.1 % (0.0-10.0); %Lymphocytes 2.8 % (21.0-51.0); %Monocytes 6.7 % (0.0-10.0); %Neutrophils 89.3 % (42.0-75.0); Anisocytosis MODERATE=16-30 cells (100X) (0-5/hpf); Hemoglobin 5.1 g/dL (12.0-16.0); MDiff Complete? YES; Mean Corpuscular HGB CONC 33.3 g/dL (32.0-36.0); Mean Corpuscular Hemoglobin 32.8 pg (27.0-31.0); Mean Corpuscular Volume 98.6 fL (78.0-98.0); Mean Platelet Volume 7.5 fL (7.4-10.4); Platelet Count 75 thou/uL (130-400); Platelet Morphology Comment Appears Decreased; RBC Distribution Width 15.3 % (11.5-14.5); Red Blood Cell (RBC) Count 1.54 mill/uL (4.20-5.40); Schistocytes SLIGHT = 2-5 cells (100X) (0-1/hpf); White Blood Cell (WBC) Count 10.9 thou/uL (4.8-10.8)
[2019-08-21 13:00] LABS: ALT (SGPT) 15 U/L (8-55); AST (SGOT) 22 U/L (5-34); Albumin 3.1 g/dL (3.5-5.0); Alkaline Phosphatase 77 U/L (40-110); Anion Gap 11 mmol/L (10-20); BUN (Urea Nitrogen) 36 mg/dL (9.8-20.1); Bilirubin, Total 1.8 mg/dL (0.2-1.2); Calc. Creatinine Clearance 0 mL/min (70-130); Calcium 8.4 mg/dL (7.8-10.44); Carbon Dioxide 19 mmol/L (22-29); Chloride 99 mmol/L (98-107); Estimated GFR-MDRD 21; Globulin 1.7 g/dL (2.4-3.5); Glucose 189 mg/dL (70-105); Protein, Total 4.8 g/dL (6.0-8.3); Sodium 124 mmol/L (136-145)
--- NOTE | 2019-08-21 13:29 | PDOC.FPRHP ---
- History of Present Illness Chief Complaint: Anemia History of Present Illness: 53yo F with h/o Cirrhosis with ascites, esophageal varices, Chronic Anemia, DMII , and CKD who presents with hepatic encephalopathy. She was here on 08/12 and received 1 unit of blood and went home. She said it was checked last week and it was good. Today she had 7L drawn off and they checked her hgb was 5 so they sent her. She says she had 2-25g of albumin. She says she has a headache, but she has had it from allergies. She also endorses fatigue that has been present for awhile and has gotten progressively worse. ED Course: In the ED, She is AB+, Hgb is 5.1, Plt: 75, Hyponatremia of 124, PTT: 88, PT: 21 , Creatinine 2.44, and WBC: 10.9. - Allergies/Adverse Reactions Allergies Allergy/AdvReac Type Severity Reaction Status Date / Time acetaminophen [From Tylenol] Allergy Verified 08/21/19 11:31 aspirin Allergy Verified 08/21/19 11:31 butorphanol [From Stadol] Allergy Verified 08/21/19 11:31 codeine Allergy Verified 08/21/19 11:31 morphine Allergy Verified 08/21/19 11:31 Penicillins Allergy vomiting Verified 08/21/19 11:31 silver Allergy Verified 08/21/19 11:31 [From Tegaderm AG Mesh] Sulfa (Sulfonamide Allergy Verified 08/21/19 11:31 Antibiotics) persimmon Allergy Uncoded 08/21/19 11:31 - Home Medications Medication Instructions Recorded Confirmed Type Spironolactone [Aldactone] 100 mg PO BID 01/10/19 08/21/19 History Albuterol Sulfate [Proair HFA] 2 puff INH Q6HR PRN 05/30/19 08/21/19 History Cyanocobalamin (Vitamin B-12) 1,000 mcg PO DAILY 05/30/19 08/21/19 History [Vitamin B-12] Cyclobenzaprine [Flexeril] 10 mg PO TID PRN 05/30/19 08/21/19 History Ferrous Sulfate 65 mg PO TID 05/30/19 08/21/19 History Folic Acid [Folvite] 1 mg PO DAILY 05/30/19 08/21/19 History Magnesium Amino Acid Chelate 100 mg PO DAILY 05/30/19 08/21/19 History [Magnesium] Melatonin 10 mg PO HS 05/30/19 08/21/19 History Midodrine HCl 5 mg PO TID 05/30/19 08/21/19 History Rifaximin [Xifaxan] 550 mg PO BID 05/30/19 08/21/19 History busPIRone HCl [Buspar] 10 mg PO BID 05/30/19 08/21/19 History traMADol HCl [Tramadol HCl] 50 mg PO QID PRN 05/30/19 08/21/19 History Furosemide [Lasix] 40 mg PO BID 06/23/19 08/21/19 History Pantoprazole [Protonix] 40 mg PO BID 06/23/19 08/21/19 History Lactulose [Kristalose] 30 gm PO BID #14 packet 06/26/19 08/21/19 Rx hydrOXYzine HCl [Hydroxyzine HCl] 25 mg PO Q8HR PRN 07/17/19 08/21/19 History Loratadine 10 mg PO HS 07/25/19 08/21/19 History Comments: Reviewed Patient Medication List Spirinolactone 100mg 2x daily Midodrine 5 mg 3x daily Proair 2 puff q6 hrs prn as needed Folic Acid 1 mg Cyclobenzaprine 10 mg 3x a day Vitamin B12 daily Tramadol 50 mg 4x daily Melatonin 10 mg Mag 100 mg oral Ferrous Sulfate 65 mg 3x daily Buspar 10 mg 2x daily Rifaximin 550 mg 2x daily Furosemide 40 mg before food Protonix 40 mg daily Lactulose 30 gm twice daily Hydroxyzin 25 mg every 8 hrs as needed Loratadine 10 mg dailyh - History PMHx: Anxiety, DMII, GERD, Cirrhosis, Ascites, HTN PSHx: TIPS 06/09/2018 with revisions in December 2018 and February 2019. Esophageal varices repairs with unknown dates. Tonsilectomy, Cholecystectomy, EGD's, Colonoscopy, ESWT for Kidney stones FHx: Grandma- Heart and colon problems, Mom- heart problems Social: smokes occasionally smokes a few cigs a day. Smoked 1 ppd for 14 years. Denies any illicit drug use. Denies any alcohol use. - Review of Systems General: reports: fatigue. denies: fever/chills Eyes: denies: vision changes ENT: reports: nasal congestion. denies: rhinorrhea Respiratory: reports: cough, congestion. denies: shortness of breath Cardiovascular: denies: chest pain Gastrointestinal: reports: vomiting, diarrhea, abdominal pain. denies: nausea, constipation Genitourinary: denies: dysuria Skin: reports: rashes Musculoskeletal: reports: swelling. denies: pain Neurological: reports: weakness, other (PRINCE). denies: numbness, syncope - Vital signs BP: 104/48 HR: 103 RR: 16 Tmax: 98.5 Pox: 100% on RA Wt: 90.72 kg - Physical Exam Constitutional: NAD, awake, alert and oriented HEENT: normocephalic and atraumatic, PERRLA, EOMI, conjunctiva clear, normal nasal mucosa, MMM, oropharynx clear Neck: trachea midline, no LAD Heart: RRR, normal S1/S2 -Heart: 1+ pitting edema Lungs: CTAB, no respiratory distress, good air movement, no rales/rhonchi, no wheezing, no retractions Abdomen: soft, non-tender, bowel sounds present -Abdomen: Distended abdomen, but she says she is improved from baseline. Musculoskeletal: normal structure, normal tone Neurological: no focal deficit, normal sensation -Skin: Rash present from bandages where last paracentesis was. -Heme/Lymphatic: Brusing on arms with telangiectasias present on chest Psychiatric: normal mood and affect FMR H&P: Results - Labs Result Diagrams: 08/21/19 11:58 08/21/19 11:58 Lab results: WBC 10.9 thou/uL (4.8-10.8) H 08/21/19 11:58 Hgb 5.1 g/dL (12.0-16.0) L* 08/21/19 11:58 Hct 15.2 % (36.0-47.0) L 08/21/19 11:58 MCV 98.6 fL (78.0-98.0) H 08/21/19 11:58 Plt Count 75 thou/uL (130-400) L 08/21/19 11:58 Neutrophils % 89.3 % (42.0-75.0) H 08/21/19 11:58 Sodium 124 mmol/L (136-145) L 08/21/19 11:58 Potassium 5.0 mmol/L (3.5-5.1) 08/21/19 11:58 Chloride 99 mmol/L (98-107) 08/21/19 11:58 Carbon Dioxide 19 mmol/L (22-29) L 08/21/19 11:58 BUN 36 mg/dL (9.8-20.1) H 08/21/19 11:58 Creatinine 2.44 mg/dL (0.6-1.1) H 08/21/19 11:58 Glucose 189 mg/dL (70-105) H 08/21/19 11:58 Calcium 8.4 mg/dL (7.8-10.44) 08/21/19 11:58 Total Bilirubin 1.8 mg/dL (0.2-1.2) H 08/21/19 11:58 AST 22 U/L (5-34) 08/21/19 11:58 ALT 15 U/L (8-55) 08/21/19 11:58 Alkaline Phosphatase 77 U/L (40-110) 08/21/19 11:58 Serum Total Protein 4.8 g/dL (6.0-8.3) L 08/21/19 11:58 Albumin 3.1 g/dL (3.5-5.0) L 08/21/19 11:58 FMR H&P: A/P - Problem List (1) ZACHARY (acute kidney injury) Current Visit: No Status: Acute Code(s): N17.9 - ACUTE KIDNEY FAILURE, UNSPECIFIED Comment: Continue IVF's, likely due to volume depletion in conjuction with hepatorenal syndrome, serial creatinine (2) Anemia Current Visit: No Status: Chronic Code(s): D64.9 - ANEMIA, UNSPECIFIED Qualifiers: Anemia type: unspecified type Qualified Code(s): D64.9 - Anemia, unspecified (3) Cirrhosis Current Visit: No Status: Chronic Code(s): K74.60 - UNSPECIFIED CIRRHOSIS OF LIVER Qualifiers: Ascites presence: with ascites (4) DM type 2 (diabetes mellitus, type 2) Current Visit: No Status: Chronic Qualifiers: Diabetes mellitus fdc insulin use: without fdc use Diabetes mellitus complication status: with kidney complications Diabetes mellitus complication detail: with chronic kidney disease Chronic kidney disease stage : stage 3 (moderate) Qualified Code(s): E11.22 - Type 2 diabetes mellitus with diabetic chronic kidney disease; N18.3 - Chronic kidney disease, stage 3 ( moderate) (5) Depression Current Visit: No Status: Chronic Code(s): F32.9 - MAJOR DEPRESSIVE DISORDER , SINGLE EPISODE, UNSPECIFIED (6) Esophageal varices Current Visit: No Status: Chronic Code(s): I85.00 - ESOPHAGEAL VARICES WITHOUT BLEEDING (7) GERD (gastroesophageal reflux disease) Current Visit: No Status: Chronic Code(s): K21.9 - GASTRO-ESOPHAGEAL REFLUX DISEASE WITHOUT ESOPHAGITIS Qualifiers: Esophagitis presence: without esophagitis Qualified Code(s): K21.9 - Gastro -esophageal reflux disease without esophagitis (8) HTN (hypertension) Current Visit: No Status: Chronic Code(s): I10 - ESSENTIAL (PRIMARY) HYPERTENSION Qualifiers: Hypertension type: unspecified Qualified Code(s): I10 - Essential (primary ) hypertension (9) History of tobacco abuse Current Visit: No Status: Chronic Code(s): Z87.891 - PERSONAL HISTORY OF NICOTINE DEPENDENCE - Plan 53yo F with h/o Cirrhosis with ascites, esophageal varices, Chronic Anemia, DMII , and CKD who presents with hepatic encephalopathy 1. Symptomatic Chronic Anemia Hgb 5.1 * Will give 2 u PRBCs and trend H/H. Will give more units if needed. * Cont home iron 2. Cirrhosis with ascites MELD 30 - 52.6% 90 day mortality. Child-Pederson Score of 8, Class B. On transplant list, [place]. * Will monitor labs while patient is here - daily CBC, CMP, coags * Known to Dr. Schmid, GI consulted apprec recs. * Cont home lactulose, aldactone, rifaximine. Titrate lactulose to have 3-5 BM daily 3. H/o esophageal varices * Cont home protonix, no s/s acute bleed, VSS, will monitor 4. CKD 3B with ZACHARY Cre: 2.44 * Baseline Cr 1.53 * Will monitor * Receiving blood product * GI consulted 5.Chronic Thombocytopenia Plt: 75 * Baseline Plt 100 * Will monitor 6. Hx of DMII * A1c in May 2019 4.6. * No need to monitor sugars. * Not on hyperglycemic meds. 7. Anxiety/depression * Cont buspar Code: Full - need to obtain when pt mental status improves and/or contact Next of kin Diet: Regular VTE: SCDs GI PPx: Protonix IVF: SL PCP: CARLY Jeff Dispo: Admit to medical for symptomatic anemia. Will transfuse 2uprbc at this time and then check h&H and replace as needed. Cont home meds, titrate lactulose, trend labs. GI consulted, apprec recs. Anticipate hospitalization < 48hours. FMR H&P: Upper Level - Pertinent history I was present with the internal combustion engine assembler Dr. Madan Marks during the HPI. I helped scribe part of the above document. I agree with above. I have made edits as needed. See above for details. Pt was recently here a few weeks ago for the same related problem. - Pertinent findings Pt is jaundiced. has +1 edema in LE. Abdomen is moderately distended. Pt is A& Ox3. No rashes seen. - Plan Date/Time: 08/21/19 1327 I, Fausto Lu, PGY-3, have evaluated this patient and agree with findings/ plan as outlined by internal combustion engine assembler resident. Pertinent changes/additions are listed here. I have made edits to the above plan. At this time we are admitting patient to transfuse blood products for symptomatic anemia. She also at this time has an ZACHARY. Will give blood products and trend BMP. We will consult GI and follow recs. Again see above for detailed plan. Addendum - Attending - Attending Attestation Date/Time: 08/21/19 4902 I personally evaluated the patient and discussed the management with Dr. Madan Marks I agree with the History, Examination, Assessment and Plan documented above with any addition or exceptions noted below - 53yo F with h/o Cirrhosis with ascites, esophageal varices, Chronic Anemia, DMII, and CKD who presents with anemia. She was here on 08/12 and received 1 unit of blood and went home. She said it was checked last week and it was good. Today she had 7L drawn off and they checked her hgb was 5 so they sent her. She says she had 2-25g of albumin. Does endorse increased fatigue. PMH/PSH/Meds/SH reviewed and agree with resident 's documentation. Afebrile VSS Exam repeated by me and agree with resident's findings. A/P: 1) Anemia chronic- place in obs; transfuse 2 u pRBCs and recheck H/H; transfuse if follow=up Hgb<7; 2) H/o varices- no evidence of active bleeding 3) Cirrhosis- continue home meds.
[2019-08-21 15:10] VITALS: BMI 33.7
[2019-08-21] MEDS ORDERED: Senokot S 8.6-50 MG TAB PO PRN (15:14)
[2019-08-21] MEDS: Nicotine 14 MG PATCH TD SCH (18:25)
[2019-08-21] MEDS ORDERED: Midodrine HCl 5 MG TAB PO SCH ×2 (18:30→21:00)
[2019-08-21 19:29] LABS: RBC Count-Automated (BF) 0 /cumm; WBC/Nucleated-Auto (BF) 190 uL
[2019-08-21 19:30] LABS: BF Color Colorless; Body Fluid Source Ascites Body Fluid; Clarity Clear (Clear)
[2019-08-21 19:44] LABS: BF Segmented Neutrophils 10 %; Cell Count Non Hematic 50 %; Lymphocytes 40 %
[2019-08-21] MEDS ORDERED: hydrOXYzine 25 MG TAB PO PRN (19:51)
[2019-08-21] MEDS ORDERED: PROVENTIL INHALER 6.7 G (200 INHALATIONS) INH PRN (19:51)
[2019-08-21] MEDS ORDERED: LACTULOSE 30 GM PO SCH (21:00)
[2019-08-21] MEDS ORDERED: Rifaximin 550 MG TAB PO SCH (21:00)
[2019-08-21] MEDS: busPIRone HCl 10 MG TAB PO SCH (21:26)
[2019-08-21] MEDS: Furosemide 20 MG TAB PO SCH (21:26)
[2019-08-21] MEDS: Melatonin 3 MG TAB PO SCH (21:27)
[2019-08-21] MEDS: Rifaximin 550 MG TAB PO SCH (21:27)
[2019-08-21] MEDS: Loratadine 10 MG TAB PO SCH (21:27)
[2019-08-21] MEDS: Cyclobenzaprine 10 MG TAB PO PRN (21:28)
[2019-08-21] MEDS: Spironolactone 100 MG TAB PO SCH (21:28)
[2019-08-21] MEDS: traMADol HCl 50 MG TAB PO PRN (21:28)
--- NOTE | 2019-08-21 22:35 | CON ---
DATE OF CONSULTATION: 08/21/2019 CHIEF COMPLAINT: Abdominal swelling and anemia. HISTORY OF PRESENT ILLNESS: Ms. Gonzalez is a 53-year-old woman with cirrhosis of liver, who underwent paracentesis today as a routine large volume paracentesis. She had blood work drawn, which showed her creatinine to have significantly increased and also drop in her hemoglobin, so she was admitted for further care. She reports she has had dark brown stools ever since she was last discharged a couple of weeks ago. She has had no nausea or vomiting. She has had some abdominal discomfort with abdominal distention with ascites, but no new pain. Over the last several days, her legs have started swelling, which is a recent development. She has had no obvious blood in the stool. No chest pain or shortness of breath. She has been taking her spironolactone, Lasix and midodrine at home. PAST MEDICAL HISTORY: Cirrhosis of the liver secondary to previous alcohol and nonalcoholic fatty liver, esophageal varices, chronic GI bleeding secondary to severe portal hypertensive gastropathy. Repeated EGDs have been helpful. She has had recurrent hepatic encephalopathy. She reports that she was treated recently for urinary tract infection. She has a history of chronic renal disease, diabetes mellitus type 2, hypertension. PAST SURGICAL HISTORY: She had TIPS placement and attempted revision for refractory ascites and portal hypertension; however, this also has been of limited success. She has had multiple endoscopies. FAMILY HISTORY: Noncontributory. SOCIAL HISTORY: No alcohol, tobacco, or drugs recently. ALLERGIES: ACETAMINOPHEN, ASPIRIN, BUTORPHANOL, CODEINE, MORPHINE, PENICILLIN, SULFA, SILVER, PERSIMMON. MEDICATIONS: Prior to admission; 1. Albuterol. 2. Furosemide. 3. Folic acid. 4. Ferrous sulfate. 5. Cyclobenzaprine. 6. Cyanocobalamin. 7. Melatonin. 8. Magnesium. 9. Loratadine. 10. Lactulose. 11. Tramadol. 12. Spironolactone. 13. Rifaximin. 14. Pantoprazole. 15. Midodrine 5 mg t.i.d. 16. Hydroxyzine. 17. Buspirone. REVIEW OF SYSTEMS: Negative x10 systems reviewed, except as stated in history of present illness. PHYSICAL EXAMINATION: VITAL SIGNS: Temperature 98.5, pulse 95, blood pressure 98/50. GENERAL: She is in no acute distress. Alert and oriented x3. HEENT: Eyes have no scleral icterus. Oropharynx is clear without lesions. No cervical or supraclavicular lymphadenopathy. LUNGS: Clear to auscultation bilaterally. HEART: Regular rate and rhythm without murmur. ABDOMEN: Soft. She is distended diffusely, but nontender. Bowel sounds are present. EXTREMITIES: 2+ pitting lower extremity edema. NEUROLOGICAL: Reveals no asterixis. LABORATORY DATA: White blood cell count 10.9, hemoglobin 5.1, platelets 75. INR 1.8. Creatinine 2.44, bilirubin 1.8, AST 22, ALT 15, albumin 3.1. IMPRESSION: 1. Decompensated cirrhosis, now with worsening prognostic factors with significant hyponatremia with a sodium of 124, and acute renal failure with a creatinine of 2.44. Her INR has increased to 1.8 from baseline of 1.5. Her bilirubin is elevated at 1.8. Albumin is low at 3.1. 2. Refractory ascites. She has had a transjugular intrahepatic portosystemic shunt procedure, which has been revised, but still limited success. She will continue on low-salt diet. Her diuretics will be held due to the acute renal failure. She had paracentesis today with 7 L removed. However, she did not have a cell count today. 3. Severe anemia with a hemoglobin of 5.1. She has had no overt bleeding associated with that. She will be transfused. 4. Hepatic encephalopathy. No significant encephalopathy currently. She will be restarted on lactulose and Xifaxan. Her last dose of lactulose was yesterday morning. Her last bowel movement was yesterday morning. 5. Acute renal failure. This is most concerning part of her presentation currently. We will start her on scheduled albumin, midodrine, and octreotide. Diuretics will be held. RECOMMENDATIONS: 1. Transfusion. 2. Octreotide drip. 3. Albumin q.6 hours. 4. Midodrine 7.5 mg t.i.d. 5. Restart Xifaxan and lactulose. 6. Follow trend of her creatinine, hemoglobin and sodium. 7. If there is no fluid left from her paracentesis today, then we will plan to perform a diagnostic paracentesis at the bedside to send a cell count. Job ID: [id number]
[2019-08-21] MEDS: Octreotide Acetate 1,250 MCG in Sodium Chloride 0.9% 250 ML 250 ML IVPB SCH (23:15)
[2019-08-22] MEDS: Albumin 25% 25 GM/100 ML BOT IVPB SCH ×4 (01:32→17:38)
[2019-08-22 01:50] LABS: Hemoglobin 6.6 g/dL (12.0-16.0)
[2019-08-22] MEDS: traMADol HCl 50 MG TAB PO PRN ×3 (04:12→20:14)
--- NOTE | 2019-08-22 06:02 | PDOC.FM ---
- Subjective Subjective: She says she slept really well overnight with the melatonin. She says the swelling in her legs is better this morning. Dr. Cota minna fluid off last night and she said she had some pain from that, but it is much improved. - Objective MAR Reviewed: Yes Vital Signs & Weight: Vital Signs (12 hours) Temp Pulse Pulse Resp BP BP BP 08/22/19 04:58 98.1 F 92 16 103/55 L 08/22/19 04:43 97.9 F 92 16 113/55 L 08/22/19 02:45 98.4 F 100 16 106/51 L 08/21/19 23:50 98.5 F 102 H 19 109/57 L 08/21/19 21:20 98.4 F 100 16 106/51 L 08/21/19 19:55 97.6 F 93 15 100/51 L Pulse Ox 08/22/19 04:58 100 08/22/19 04:43 100 08/22/19 02:45 100 08/21/19 23:50 96 08/21/19 21:20 100 08/21/19 19:55 96 Weight Weight 94.801 kg I&O: 08/20/19 08/21/19 08/22/19 06:59 06:59 06:59 Intake Total 1380 Output Total 500 Balance 880 Result Diagrams: 08/22/19 01:30 08/21/19 11:58 Phys Exam - Physical Examination Constitutional: NAD HEENT: PERRLA, moist MMs, oral pharynx no lesions Neck: no nodes, no JVD Respiratory: clear to auscultation bilateral Cardiovascular: RRR, no significant murmur Gastrointestinal: soft, non-tender, positive bowel sounds Musculoskeletal: no edema, pulses present Neurological: moves all 4 limbs Psychiatric: normal affect Skin: no rash Dx/Plan (1) ZACHARY (acute kidney injury) Code(s): N17.9 - ACUTE KIDNEY FAILURE, UNSPECIFIED Status: Acute (2) Anemia Code(s): D64.9 - ANEMIA, UNSPECIFIED Status: Chronic Qualifiers: Anemia type: unspecified type Qualified Code(s): D64.9 - Anemia, unspecified (3) Cirrhosis Code(s): K74.60 - UNSPECIFIED CIRRHOSIS OF LIVER Status: Chronic Qualifiers: Ascites presence: with ascites (4) DM type 2 (diabetes mellitus, type 2) Status: Chronic Qualifiers: Diabetes mellitus salvage determiner insulin use: without salvage determiner use Diabetes mellitus complication status: with kidney complications Diabetes mellitus complication detail: with chronic kidney disease Chronic kidney disease stage : stage 3 (moderate) Qualified Code(s): E11.22 - Type 2 diabetes mellitus with diabetic chronic kidney disease; N18.3 - Chronic kidney disease, stage 3 ( moderate) (5) Depression Code(s): F32.9 - MAJOR DEPRESSIVE DISORDER, SINGLE EPISODE, UNSPECIFIED Status : Chronic (6) Esophageal varices Code(s): I85.00 - ESOPHAGEAL VARICES WITHOUT BLEEDING Status: Chronic (7) GERD (gastroesophageal reflux disease) Code(s): K21.9 - GASTRO-ESOPHAGEAL REFLUX DISEASE WITHOUT ESOPHAGITIS Status: Chronic Qualifiers: Esophagitis presence: without esophagitis Qualified Code(s): K21.9 - Gastro -esophageal reflux disease without esophagitis (8) HTN (hypertension) Code(s): I10 - ESSENTIAL (PRIMARY) HYPERTENSION Status: Chronic Qualifiers: Hypertension type: unspecified Qualified Code(s): I10 - Essential (primary ) hypertension (9) History of tobacco abuse Code(s): Z87.891 - PERSONAL HISTORY OF NICOTINE DEPENDENCE Status: Chronic - Plan Plan: 53yo F with h/o Cirrhosis with ascites, esophageal varices, Chronic Anemia, DMII , and CKD who presents with hepatic encephalopathy 1. Symptomatic Chronic Anemia Hgb 5.1 > * Given 2 u PRBCs last night and 1 u this morning. Will trend H/H. Will give more units if needed. * Cont home iron 2. Cirrhosis with ascites MELD 30 - 52.6% 90 day mortality. Child-Pederson Score of 8, Class B. On transplant list, [place]. * Will monitor labs while patient is here - daily CBC, CMP, coags * Known to Dr. Schmid, GI consulted apprec recs. * Octreotide drip started * Albumin Q6H * Midodrine 7.5 mg TID * Home meds restarted lactulose, aldactone, rifaximine. Titrate lactulose to have 3-5 BM daily * Ascites * Gram stain: Rare WBCs, No organsisms * Cell count: Clolorless, clear. WBC- 190, RBC-0, Theo- 10%, Lymph- 40% 3. H/o esophageal varices * Cont home protonix, no s/s acute bleed, VSS, will monitor 4. CKD 3B with ZACHARY Cre: 2.44 * Baseline Cr 1.53 * Will monitor * Receiving blood product * GI consulted 5.Chronic Thombocytopenia Plt: 75 * Baseline Plt 100 * Will monitor 6. Hx of DMII * A1c in May 2019 4.6. * No need to monitor sugars. * Not on hyperglycemic meds. 7. Anxiety/depression * Cont buspar Code: Full - need to obtain when pt mental status improves and/or contact Next of kin Diet: Regular VTE: SCDs GI PPx: Protonix IVF: SL PCP: CARLY Jeff Dispo: Medical obs, transfusing 1 u PRBC at this time and then check H&H. GI consulted, apprec recs. LOS <48hours. Addendum - Attending - Attending Attestation Date/Time: 08/22/19 [id number] I personally evaluated the patient and discussed the management with Dr. Marks. I agree with the History, Examination, Assessment and Plan documented above with any addition or exceptions noted below. The patient remains anemic after 2 units. Will transfuse additional unit PRBC' s. Check h/h following transfusion. Pt will remain on IV drips. Change to inpt.
[2019-08-22] MEDS ORDERED: Magnesium Amino Acid Chelate [Magnesium] 100 MG PO SCH (09:00)
[2019-08-22] MEDS: Midodrine HCl 5 MG TAB PO SCH ×3 (09:17→16:42)
[2019-08-22] MEDS: Cyanocobalamin (Vitamin B-12) 1,000 MCG TAB PO SCH (09:19)
[2019-08-22] MEDS: Folic Acid 1 MG TAB PO SCH (09:19)
[2019-08-22] MEDS: Ferrous Sulfate 325 MG TAB PO SCH ×3 (09:19→20:05)
[2019-08-22] MEDS: busPIRone HCl 10 MG TAB PO SCH ×2 (09:19→20:04)
[2019-08-22] MEDS: Furosemide 20 MG TAB PO SCH ×2 (09:20→20:05)
[2019-08-22] MEDS: Rifaximin 550 MG TAB PO SCH ×2 (09:21→20:06)
[2019-08-22] MEDS: Spironolactone 100 MG TAB PO SCH ×2 (09:21→20:06)
[2019-08-22 11:23] LABS: ALT (SGPT) 19 U/L (8-55); AST (SGOT) 21 U/L (5-34); Alkaline Phosphatase 76 U/L (40-110); Anion Gap 11 mmol/L (10-20); BUN (Urea Nitrogen) 39 mg/dL (9.8-20.1); Bilirubin, Total 2.7 mg/dL (0.2-1.2); Calc. Creatinine Clearance 42 mL/min (70-130); Calcium 7.8 mg/dL (7.8-10.44); Carbon Dioxide 19 mmol/L (22-29); Chloride 100 mmol/L (98-107); Estimated GFR-MDRD 21; Globulin 1.6 g/dL (2.4-3.5); Glucose 288 mg/dL (70-105); Potassium 4.9 mmol/L (3.5-5.1); Protein, Total 4.6 g/dL (6.0-8.3); Sodium 125 mmol/L (136-145)
[2019-08-22 13:12] LABS: Platelet Count 55 thou/uL (130-400)
[2019-08-22 16:18] LABS: Tube # 4
[2019-08-22] MEDS: Nicotine 14 MG PATCH TD SCH (19:54)
[2019-08-22] MEDS: Melatonin 3 MG TAB PO SCH (20:05)
[2019-08-22] MEDS: Loratadine 10 MG TAB PO SCH (20:06)
[2019-08-22] MEDS: Cyclobenzaprine 10 MG TAB PO PRN (20:14)
--- NOTE | 2019-08-22 22:25 | PRG ---
DATE OF SERVICE: 08/22/2019 SUBJECTIVE: Ms. Gonzalez feels like her abdominal swelling is slightly improved today. Tolerating a low-sodium diet. She had a dark green stool with some blood on the toilet paper. OBJECTIVE: VITAL SIGNS: Temperature is 97.9, pulse 85, blood pressure 102/64. GENERAL: She is in no acute distress. Alert and oriented x3. LUNGS: Clear to auscultation bilaterally. HEART: Regular rate and rhythm without murmur. ABDOMEN: Distended, fairly tense with ascites. Bowel sounds are present. EXTREMITIES: 1+ to 2+ pitting lower extremity edema. LABORATORY DATA: Hemoglobin is 7.0 from 5.1 yesterday. IMPRESSION: 1. Acute renal failure. Her creatinine is stable today at 2.38. We will continue the albumin, octreotide, and midodrine combination, try to improve renal function as this carries significant prognostic implications regarding her underlying cirrhosis. 2. Hyponatremia. 3. Decompensated cirrhosis. 4. Hepatic encephalopathy, currently under control, on lactulose and Xifaxan. 5. Anemia. She has chronic blood loss from portal hypertensive gastropathy. She has undergone TIPS; however, multiple revisions of the TIPS has been unsuccessful to maintain long-term improvement in bleeding and ascites. She has been deemed not to be a transplant candidate by the Transplant Service in [place]. RECOMMENDATIONS: 1. Continue to follow trend of her hemoglobin. 2. Paracentesis yesterday was negative for SBP. 3. Continue octreotide, midodrine, and albumin. 4. Follow trend of her hemoglobin and creatinine and liver function tests. Job ID: [id number]
[2019-08-23] MEDS: Albumin 25% 25 GM/100 ML BOT IVPB SCH ×4 (00:02→17:45)
[2019-08-23] MEDS: traMADol HCl 50 MG TAB PO PRN ×2 (00:18→05:58)
[2019-08-23] MEDS: Octreotide Acetate 1,250 MCG in Sodium Chloride 0.9% 250 ML 250 ML IVPB SCH (02:04)
--- NOTE | 2019-08-23 05:08 | PDOC.FM ---
- Subjective Subjective: Pt is having bright red blood per rectum. She said it started yesterday evening. She says she has been eating, sleeping, and moving around well. - Objective MAR Reviewed: Yes Vital Signs & Weight: Vital Signs (12 hours) Temp Pulse Resp BP BP Pulse Ox 08/23/19 03:46 97.8 F 97 20 104/61 97 08/22/19 23:58 98.1 F 101 H 20 98/63 99 08/22/19 20:00 97.9 F 85 20 102/64 99 08/22/19 17:53 97.7 F 97 16 115/64 99 Weight Weight 94.801 kg I&O: 08/21/19 08/22/19 08/23/19 06:59 06:59 06:59 Intake Total 2770 690 Output Total 600 1440 Balance 2170 -750 Result Diagrams: 08/23/19 06:26 08/23/19 06:26 Phys Exam - Physical Examination Constitutional: NAD HEENT: PERRLA, moist MMs, oral pharynx no lesions Neck: supple, full ROM Respiratory: clear to auscultation bilateral Cardiovascular: RRR, no significant murmur Gastrointestinal: soft, non-tender, positive bowel sounds Musculoskeletal: pulses present, edema present 1+ edema Neurological: normal sensation, moves all 4 limbs Psychiatric: normal affect Deviation from normal: bruising on bilateral arms, several external hemorrhoids present on exam Dx/Plan (1) ZACHARY (acute kidney injury) Code(s): N17.9 - ACUTE KIDNEY FAILURE, UNSPECIFIED Status: Acute (2) Anemia Code(s): D64.9 - ANEMIA, UNSPECIFIED Status: Chronic Qualifiers: Anemia type: unspecified type Qualified Code(s): D64.9 - Anemia, unspecified (3) Cirrhosis Code(s): K74.60 - UNSPECIFIED CIRRHOSIS OF LIVER Status: Chronic Qualifiers: Ascites presence: with ascites (4) DM type 2 (diabetes mellitus, type 2) Status: Chronic Qualifiers: Diabetes mellitus terminal carman insulin use: without terminal carman use Diabetes mellitus complication status: with kidney complications Diabetes mellitus complication detail: with chronic kidney disease Chronic kidney disease stage : stage 3 (moderate) Qualified Code(s): E11.22 - Type 2 diabetes mellitus with diabetic chronic kidney disease; N18.3 - Chronic kidney disease, stage 3 ( moderate) (5) Depression Code(s): F32.9 - MAJOR DEPRESSIVE DISORDER, SINGLE EPISODE, UNSPECIFIED Status : Chronic (6) Esophageal varices Code(s): I85.00 - ESOPHAGEAL VARICES WITHOUT BLEEDING Status: Chronic (7) GERD (gastroesophageal reflux disease) Code(s): K21.9 - GASTRO-ESOPHAGEAL REFLUX DISEASE WITHOUT ESOPHAGITIS Status: Chronic Qualifiers: Esophagitis presence: without esophagitis Qualified Code(s): K21.9 - Gastro -esophageal reflux disease without esophagitis (8) HTN (hypertension) Code(s): I10 - ESSENTIAL (PRIMARY) HYPERTENSION Status: Chronic Qualifiers: Hypertension type: unspecified Qualified Code(s): I10 - Essential (primary ) hypertension (9) History of tobacco abuse Code(s): Z87.891 - PERSONAL HISTORY OF NICOTINE DEPENDENCE Status: Chronic - Plan Plan: 53yo F with h/o Cirrhosis with ascites, esophageal varices, Chronic Anemia, DMII , and CKD who presents with hepatic encephalopathy 1. Symptomatic Chronic Anemia Hgb 5.1 > 6.6 > 7.0 * Given 2 u PRBCs last night and 1 u this morning. Will trend H/H. Will give more units if needed. * Cont home iron 2. Cirrhosis with ascites MELD 30 - 52.6% 90 day mortality. Child-Pederson Score of 8, Class B. On transplant list, [place]. * Will monitor labs while patient is here - daily CBC, CMP, coags * Known to Dr. Schmid, GI consulted apprec recs. * Octreotide drip started * Albumin Q6H * Midodrine 7.5 mg TID * Home meds restarted lactulose, aldactone, rifaximine. Titrate lactulose to have 3-5 BM daily * Ascites- Not concerning for SBP * Gram stain: Rare WBCs, No organsisms * Cell count: Clolorless, clear. WBC- 190, RBC-0, Theo- 10%, Lymph- 40% * Preliminary Cx: Neg 3. H/o esophageal varices * Cont home protonix, no s/s acute bleed, VSS, will monitor 4. CKD 3B with ZACHARY Cre: 2.44 > 2.24 * Baseline Cr 1.53 * Will monitor * Receiving blood product * GI consulted 5.Chronic Thombocytopenia Plt: 75 > 55 > 58 * Baseline Plt 100 * Will monitor 6. Hx of DMII * A1c in May 2019 4.6. * No need to monitor sugars. * Not on hyperglycemic meds. 7. Anxiety/depression * Cont buspar Code: Full - need to obtain when pt mental status improves and/or contact Next of kin Diet: Regular VTE: SCDs GI PPx: Protonix IVF: SL PCP: CARLY Jeff Dispo: Medical inpt, GI consulted, will follow there recommendations. LOS < 48hours. Addendum - Attending - Attending Attestation Date/Time: 08/23/19 1030 I personally evaluated the patient and discussed the management with Dr. Marks. I agree with the History, Examination, Assessment and Plan documented above with any addition or exceptions noted below. The patient's hemoglobin is 7.0. Continue to trend and transfuse if it drops. She remains on drips. Pt is is having bright red bleeding per rectum from hemorrhoids. Will discuss banding with gen surg.
[2019-08-23 06:36] LABS: #Eosinphils 0.3 thou/uL (0.0-0.7); #Lymphocytes 0.5 thou/uL (1.20-3.40); #Monocytes 0.6 thou/uL (0.11-0.59); #Neutrophils 2.7 thou/uL (1.40-6.50); %Basophils 0.9 % (0.0-1.0); %Eosinophils 6.9 % (0.0-10.0); %Lymphocytes 11.3 % (21.0-51.0); %Monocytes 14.3 % (0.0-10.0); %Neutrophils 66.6 % (42.0-75.0); Mean Corpuscular HGB CONC 33.2 g/dL (32.0-36.0); Mean Corpuscular Hemoglobin 31.2 pg (27.0-31.0); Mean Corpuscular Volume 93.8 fL (78.0-98.0); Mean Platelet Volume 7.3 fL (7.4-10.4); Platelet Count 58 thou/uL (130-400); RBC Distribution Width 14.8 % (11.5-14.5); Red Blood Cell (RBC) Count 2.26 mill/uL (4.20-5.40); White Blood Cell (WBC) Count 4.1 thou/uL (4.8-10.8)
[2019-08-23 06:57] LABS: ALT (SGPT) 15 U/L (8-55); AST (SGOT) 19 U/L (5-34); Albumin 3.8 g/dL (3.5-5.0); Alkaline Phosphatase 69 U/L (40-110); Anion Gap 11 mmol/L (10-20); BUN (Urea Nitrogen) 38 mg/dL (9.8-20.1); Bilirubin, Total 2.1 mg/dL (0.2-1.2); Calc. Creatinine Clearance 44 mL/min (70-130); Calcium 8.6 mg/dL (7.8-10.44); Carbon Dioxide 23 mmol/L (22-29); Chloride 102 mmol/L (98-107); Estimated GFR-MDRD 23; Globulin 1.5 g/dL (2.4-3.5); Glucose 225 mg/dL (70-105); Protein, Total 5.3 g/dL (6.0-8.3); Sodium 131 mmol/L (136-145)
[2019-08-23] MEDS: Midodrine HCl 5 MG TAB PO SCH ×3 (08:54→17:43)
[2019-08-23] MEDS: busPIRone HCl 10 MG TAB PO SCH ×2 (08:55→20:44)
[2019-08-23] MEDS: Spironolactone 100 MG TAB PO SCH ×2 (08:55→20:43)
[2019-08-23] MEDS: Ferrous Sulfate 325 MG TAB PO SCH ×4 (08:55→20:44)
[2019-08-23] MEDS: Folic Acid 1 MG TAB PO SCH (08:56)
[2019-08-23] MEDS: Cyanocobalamin (Vitamin B-12) 1,000 MCG TAB PO SCH (08:56)
[2019-08-23] MEDS: Furosemide 20 MG TAB PO SCH ×2 (08:56→20:44)
[2019-08-23] MEDS: Rifaximin 550 MG TAB PO SCH ×2 (08:56→20:44)
--- NOTE | 2019-08-23 12:51 | CON ---
DATE OF CONSULTATION: CHIEF COMPLAINT: Rectal bleeding. HISTORY OF PRESENT ILLNESS: The patient is a 53-year-old female with end-stage hepatic disease, cirrhosis, who has had TIPS and is failed, has esophageal varices which have been cauterized. She reports a 4-month history of intermittent bright red blood per rectum. Her last colonoscopy was 2 years ago. She was admitted for paracentesis. PAST MEDICAL HISTORY: Significant for cirrhosis due to alcoholic liver disease, esophageal varices, chronic GI bleeding due to portal hypertension. She has also had hepatic encephalopathy, urinary tract infections. PAST SURGICAL HISTORY: TIPS placement, attempted revision for refractory ascites. FAMILY HISTORY: Noncontributory. SOCIAL HISTORY: No recent alcohol. PHYSICAL EXAMINATION: VITAL SIGNS: Temperature 97.7, pulse 95, blood pressure 95/64. GENERAL: She is an obese female with massive ascites. She is awake and alert today. HEENT: She has jaundice. LUNGS: Clear. HEART: Regular rate and rhythm. ABDOMEN: Massive ascites. RECTAL: She has some grade 3 prolapsing hemorrhoids. LABORATORY DATA: Her white count is 4, hemoglobin and hematocrit 7 and 21, platelet count of only 58,000. Her creatinine is 2.2, BUN of 38. ASSESSMENT: End-stage cirrhosis with portal hypertension, probably some hemorrhoidal bleeding, high risk for surgery. At this point, I would recommend sitz baths, stool softeners, further medical management. Job ID: [id number]
--- NOTE | 2019-08-23 15:33 | PRG ---
DATE OF SERVICE: 08/23/2019 SUBJECTIVE: Ms. Gonzalez has had no further blood in the stool. She is having diarrhea with the lactulose today. She has had 5 stools today, which have been brown. She has no abdominal pain, nausea, or vomiting. OBJECTIVE: VITAL SIGNS: Temperature 98.4, pulse 92, blood pressure 105/66. GENERAL: She is in no acute distress. Alert and oriented x3. LUNGS: Clear to auscultation bilaterally. HEART: Regular rate and rhythm without murmur. ABDOMEN: Distended, but soft. EXTREMITIES: She has 2+ pitting lower extremity edema. LABORATORY DATA: White blood cell count 4.1, hemoglobin 7.0, and platelets 58. Creatinine 2.24. IMPRESSION: 1. Decompensated cirrhosis. 2. Acute renal failure. She has been on albumin, octreotide, and midodrine. However, we are seeing a little improvement in the creatinine at this point. 3. Anasarca and ascites. She has significant lower extremity edema, which is worse than prior. This is likely related to the acute renal failure. Along with that, we held diuretics. 4. Recurrent hepatic encephalopathy, currently controlled with lactulose and rifaximin. 5. Hyponatremia has improved today as her sodium has improved to 131. 6. Anemia. There is no plan for endoscopy regarding this. Revision of TIPS on multiple episodes have limited benefit. RECOMMENDATIONS: 1. Continue current medicine with octreotide, midodrine, and albumin. 2. Continue rifaximin and lactulose. 3. Continue to follow the trend of her hemoglobin and creatinine. Job ID: [id number]
[2019-08-23] MEDS: Nicotine 14 MG PATCH TD SCH (17:45)
[2019-08-23] MEDS ORDERED: Albumin 25% 25 GM/100 ML BOT IVPB SCH (18:00)
[2019-08-23] MEDS: Melatonin 3 MG TAB PO SCH (20:44)
[2019-08-23] MEDS: Loratadine 10 MG TAB PO SCH (20:44)
[2019-08-24] MEDS: Albumin 25% 25 GM/100 ML BOT IVPB SCH (00:02)
[2019-08-24] MEDS: Cyclobenzaprine 10 MG TAB PO PRN ×2 (00:04→20:23)
[2019-08-24] MEDS: Octreotide Acetate 1,250 MCG in Sodium Chloride 0.9% 250 ML 250 ML IVPB SCH (05:11)
[2019-08-24] MEDS: traMADol HCl 50 MG TAB PO PRN ×3 (05:14→20:18)
--- NOTE | 2019-08-24 06:18 | PDOC.FM ---
- Subjective Subjective: Pt says she has some abdominal pain where she dropped something on her a couple of months ago. She says the muscles tense up in that area and so she is tender to touch there. She says Ismael said surgery would not be an option due to her high risk for surgery. Cipriano would like to evaluate today labs and possibly d/c later today. - Objective MAR Reviewed: Yes Vital Signs & Weight: Vital Signs (12 hours) Temp Pulse Resp BP BP BP Pulse Ox 08/24/19 04:00 98.3 F 98 17 112/65 98 08/24/19 00:13 98.4 F 94 18 98/60 98 08/23/19 20:00 98.7 F 96 20 107/60 97 Weight Weight 94.801 kg I&O: 08/22/19 08/23/19 08/24/19 06:59 06:59 06:59 Intake Total 2770 690 3070 Output Total 600 1440 2450 Balance 2170 -750 620 Result Diagrams: 08/24/19 05:43 08/24/19 05:43 Phys Exam - Physical Examination Constitutional: NAD HEENT: PERRLA, moist MMs, oral pharynx no lesions Neck: supple, full ROM Respiratory: clear to auscultation bilateral Cardiovascular: RRR, no significant murmur Gastrointestinal: soft, positive bowel sounds TTP in LUQ, more distended today Musculoskeletal: pulses present 1+ pitting edema Neurological: non-focal, normal sensation, moves all 4 limbs Psychiatric: normal affect Skin: no rash Dx/Plan (1) ZACHARY (acute kidney injury) Code(s): N17.9 - ACUTE KIDNEY FAILURE, UNSPECIFIED Status: Acute (2) Anemia Code(s): D64.9 - ANEMIA, UNSPECIFIED Status: Chronic Qualifiers: Anemia type: unspecified type Qualified Code(s): D64.9 - Anemia, unspecified (3) Cirrhosis Code(s): K74.60 - UNSPECIFIED CIRRHOSIS OF LIVER Status: Chronic Qualifiers: Ascites presence: with ascites (4) DM type 2 (diabetes mellitus, type 2) Status: Chronic Qualifiers: Diabetes mellitus correction insulin use: without roller man use Diabetes mellitus complication status: with kidney complications Diabetes mellitus complication detail: with chronic kidney disease Chronic kidney disease stage : stage 3 (moderate) Qualified Code(s): E11.22 - Type 2 diabetes mellitus with diabetic chronic kidney disease; N18.3 - Chronic kidney disease, stage 3 ( moderate) (5) Depression Code(s): F32.9 - MAJOR DEPRESSIVE DISORDER, SINGLE EPISODE, UNSPECIFIED Status : Chronic (6) Esophageal varices Code(s): I85.00 - ESOPHAGEAL VARICES WITHOUT BLEEDING Status: Chronic (7) GERD (gastroesophageal reflux disease) Code(s): K21.9 - GASTRO-ESOPHAGEAL REFLUX DISEASE WITHOUT ESOPHAGITIS Status: Chronic Qualifiers: Esophagitis presence: without esophagitis Qualified Code(s): K21.9 - Gastro -esophageal reflux disease without esophagitis (8) HTN (hypertension) Code(s): I10 - ESSENTIAL (PRIMARY) HYPERTENSION Status: Chronic Qualifiers: Hypertension type: unspecified Qualified Code(s): I10 - Essential (primary ) hypertension (9) History of tobacco abuse Code(s): Z87.891 - PERSONAL HISTORY OF NICOTINE DEPENDENCE Status: Chronic - Plan Plan: 53yo F with h/o Cirrhosis with ascites, esophageal varices, Chronic Anemia, DMII , and CKD who presents with hepatic encephalopathy 1. Symptomatic Chronic Anemia Hgb 5.1 > 6.6 > 7.0 > 6.4 * Given 2 u PRBCs last night and 1 u this morning. Will trend H/H. Will give more units if needed. * Cont home iron 2. Cirrhosis with ascites MELD 30 - 52.6% 90 day mortality. Child-Pederson Score of 8, Class B. On transplant list, [place]. * Will monitor labs while patient is here - daily CBC, CMP, coags * Known to Dr. Schmid, GI consulted apprec recs. * Octreotide drip started * Albumin Q6H * Midodrine 7.5 mg TID * Home meds restarted lactulose, aldactone, rifaximine. Titrate lactulose to have 3-5 BM daily * Ascites- Not concerning for SBP * Gram stain: Rare WBCs, No organsisms * Cell count: Clolorless, clear. WBC- 190, RBC-0, Theo- 10%, Lymph- 40% * Preliminary Cx: Neg 3. H/o esophageal varices * Cont home protonix, no s/s acute bleed, VSS, will monitor 4. CKD 3B with ZACHARY Cre: 2.44 > 2.24 > 2.02 * Baseline Cr 1.53 * Will monitor * Receiving blood product * GI consulted 5.Chronic Thombocytopenia Plt: 75 > 55 > 58 > 53 * Baseline Plt 100 * Will monitor 6. Hx of DMII * A1c in May 2019 4.6. * No need to monitor sugars. * Not on hyperglycemic meds. 7. Anxiety/depression * Cont buspar Code: Full - need to obtain when pt mental status improves and/or contact Next of kin Diet: Regular VTE: SCDs GI PPx: Protonix IVF: SL PCP: CARLY Jeff Dispo: Medical inpt, GI consulted, will follow there recommendations. Transfusing 1 unit this morning. Will recheck H&H later today. LOS >48hours. Addendum - Attending - Attending Attestation Date/Time: 08/24/19 1010 I personally evaluated the patient and discussed the management with Dr. Marks. I agree with the History, Examination, Assessment and Plan documented above with any addition or exceptions noted below. The patient's anemia has worsened. Will transfuse 1 unit prbc. She is still on octreotide drip. Ascites is increased. Will f/u GI recs regarding repeat paracentesis.
[2019-08-24 06:35] LABS: Anion Gap 11 mmol/L (10-20); BUN (Urea Nitrogen) 37 mg/dL (9.8-20.1); Calc. Creatinine Clearance 49 mL/min (70-130); Calcium 8.5 mg/dL (7.8-10.44); Carbon Dioxide 21 mmol/L (22-29); Chloride 103 mmol/L (98-107); Estimated GFR-MDRD 26; Glucose 194 mg/dL (70-105); Sodium 130 mmol/L (136-145)
--- NOTE | 2019-08-24 08:21 | OP ---
DATE OF PROCEDURE: 08/21/2019 PROCEDURE PERFORMED: Diagnostic paracentesis. PREOPERATIVE DIAGNOSES: Symptomatic ascites, rule out spontaneous bacterial peritonitis. DESCRIPTION OF PROCEDURE: Informed consent was obtained from the patient. The skin in the left lower quadrant was sterilized with chlorhexidine. A 21-inch needle was used and placed through the abdominal wall and aspirated with a 30 mL syringe. A 30 mL of clear ascitic fluid were aspirated and sent for cell count with differential and culture. She tolerated the procedure well without immediate complications. IMPRESSION: Successful paracentesis with 30 mL of clear ascitic fluid removed. RECOMMENDATION: Fluid to be sent for cell count and culture. Job ID: [id number]
[2019-08-24] MEDS: busPIRone HCl 10 MG TAB PO SCH ×2 (08:40→20:18)
[2019-08-24] MEDS: Cyanocobalamin (Vitamin B-12) 1,000 MCG TAB PO SCH (08:40)
[2019-08-24] MEDS: Furosemide 20 MG TAB PO SCH ×2 (08:40→20:17)
[2019-08-24] MEDS: Ferrous Sulfate 325 MG TAB PO SCH ×3 (08:40→20:18)
[2019-08-24] MEDS: Folic Acid 1 MG TAB PO SCH (08:40)
[2019-08-24] MEDS: Midodrine HCl 5 MG TAB PO SCH ×3 (08:41→17:07)
[2019-08-24] MEDS: Rifaximin 550 MG TAB PO SCH ×2 (08:41→20:18)
[2019-08-24] MEDS: Spironolactone 100 MG TAB PO SCH ×2 (08:41→20:17)
[2019-08-24 08:48] LABS: Eosinophils 4 % (0-10); Hemoglobin 6.4 g/dL (12.0-16.0); Hypochromia SLIGHT = 6-15 cells (100X) (0-5/hpf); Lymphocytes 16 % (21-51); MDiff Complete? YES; Mean Corpuscular HGB CONC 34.1 g/dL (32.0-36.0); Mean Corpuscular Hemoglobin 32.1 pg (27.0-31.0); Mean Corpuscular Volume 94.2 fL (78.0-98.0); Mean Platelet Volume 7.6 fL (7.4-10.4); Monocytes 8 % (0-10); Neutrophil 72 % (42-75); Platelet Count 53 thou/uL (130-400); Platelet Morphology Comment Appears Decreased; RBC Distribution Width 14.4 % (11.5-14.5); Red Blood Cell (RBC) Count 1.99 mill/uL (4.20-5.40); White Blood Cell (WBC) Count 3.2 thou/uL (4.8-10.8)
[2019-08-24] MEDS: Nicotine 14 MG PATCH TD SCH (17:07)
--- NOTE | 2019-08-24 18:48 | PRG ---
DATE OF SERVICE: 08/24/2019 SUBJECTIVE: Ms. Gonzalez feels better in general today. She has no abdominal pain. She has had no bleeding. OBJECTIVE: VITAL SIGNS: Temperature 98.1, blood pressure 100/64, pulse 98. GENERAL: She is in no acute distress. Alert and oriented x3. NEUROLOGIC: She has no asterixis on neurological exam. LUNGS: Clear to auscultation bilaterally. HEART: Regular rate and rhythm. ABDOMEN: Distended with ascites, but nontender and soft. EXTREMITIES: Have 2+ pitting lower extremity edema. LABORATORY DATA: White blood cell count 3.2, hemoglobin is 6.4, and platelets 53,000. IMPRESSION: 1. Decompensated cirrhosis. 2. Acute renal failure. Her creatinine has decreased to 2.02 today. 3. Ascites and anasarca. Fluid studies were negative for spontaneous bacterial peritonitis. 4. Recurrent hepatic encephalopathy. Currently, her mental status is at baseline, normal, and controlled with lactulose and rifaximin. 5. Anemia. She has no overt bleeding over the last couple of days. She received 1 unit transfusion this morning. She has had 4 units transfused in total at this hospital stay. RECOMMENDATIONS: 1. I will stop the octreotide this evening. 2. Continue oral iron supplementation, midodrine, lactulose, rifaximin, pantoprazole. Of note, it appears that she has actually remained on her furosemide and spironolactone. Her sodium level is improved and her creatinine is decreasing despite this. Therefore, we will continue the furosemide and spironolactone at current doses. If her creatinine, however, increases tomorrow, then I would hold the diuretics. 3. If her hemoglobin has remained stable and her creatinine is further improving, then she could potentially discharge home in the next couple of days. 4. Dr. Schmid will be covering tomorrow. Job ID: [id number]
[2019-08-24] MEDS: Loratadine 10 MG TAB PO SCH (20:18)
[2019-08-24] MEDS: Melatonin 3 MG TAB PO SCH (20:23)
--- NOTE | 2019-08-25 06:13 | PDOC.FM ---
- Subjective Subjective: Pt c/o BRBPR this morning, small amount with BM. Pt c/o hemorrhoids. Hgb 6.1, drop from 6.4 yesterday. Cr improved to 1.68 this morning. Pt c/o BLE weakness with walking, denies SOB, CP, dizziness. - Objective MAR Reviewed: Yes Vital Signs & Weight: Vital Signs (12 hours) Temp Pulse Resp BP Pulse Ox 08/25/19 04:00 98.2 F 102 H 18 97/54 L 98 08/25/19 00:00 98.6 F 104 H 16 100/53 L 97 08/24/19 20:00 98.2 F 94 16 97/56 L 99 Weight Weight 94.801 kg I&O: 08/23/19 08/24/19 08/25/19 06:59 06:59 06:59 Intake Total 690 3070 350 Output Total 1440 2450 1600 Balance -750 620 -1250 Result Diagrams: 08/25/19 06:44 08/25/19 06:44 Phys Exam - Physical Examination Constitutional: NAD HEENT: moist MMs scleral icterus Neck: no nodes, no JVD Respiratory: no wheezing, clear to auscultation bilateral Cardiovascular: RRR, no rub Gastrointestinal: soft, positive bowel sounds Distended abdomen. + fluid wave. Musculoskeletal: pulses present, edema present (BLE pitting ) Neurological: non-focal, moves all 4 limbs Psychiatric: normal affect, A&O x 3 Deviation from normal: Jaundice skin. Dx/Plan (1) Hemorrhoids Code(s): K64.9 - UNSPECIFIED HEMORRHOIDS Status: Acute (2) Symptomatic anemia Code(s): D64.9 - ANEMIA, UNSPECIFIED Status: Chronic (3) CKD (chronic kidney disease) stage 3, GFR 30-59 ml/min Code(s): N18.3 - CHRONIC KIDNEY DISEASE, STAGE 3 (MODERATE) Status: Chronic (4) Cirrhosis of liver with ascites Code(s): K74.60 - UNSPECIFIED CIRRHOSIS OF LIVER Status: Chronic Qualifiers: Hepatic cirrhosis type: unspecified hepatic cirrhosis Qualified Code(s): K74.60 - Unspecified cirrhosis of liver; R18.8 - Other ascites (5) DM type 2 (diabetes mellitus, type 2) Status: Chronic Qualifiers: Diabetes mellitus jail insulin use: without jail use Diabetes mellitus complication status: with kidney complications Diabetes mellitus complication detail: with chronic kidney disease Chronic kidney disease stage : stage 3 (moderate) Qualified Code(s): E11.22 - Type 2 diabetes mellitus with diabetic chronic kidney disease; N18.3 - Chronic kidney disease, stage 3 ( moderate) (6) Depression Code(s): F32.9 - MAJOR DEPRESSIVE DISORDER, SINGLE EPISODE, UNSPECIFIED Status : Chronic (7) Esophageal varices Code(s): I85.00 - ESOPHAGEAL VARICES WITHOUT BLEEDING Status: Chronic (8) GERD (gastroesophageal reflux disease) Code(s): K21.9 - GASTRO-ESOPHAGEAL REFLUX DISEASE WITHOUT ESOPHAGITIS Status: Chronic Qualifiers: Esophagitis presence: without esophagitis Qualified Code(s): K21.9 - Gastro -esophageal reflux disease without esophagitis (9) HTN (hypertension) Code(s): I10 - ESSENTIAL (PRIMARY) HYPERTENSION Status: Chronic Qualifiers: Hypertension type: unspecified Qualified Code(s): I10 - Essential (primary ) hypertension (10) S/P TIPS (transjugular intrahepatic portosystemic shunt) Status: Chronic - Plan Plan: 53yo F with h/o Cirrhosis with ascites, esophageal varices, Chronic Anemia, DMII , and CKD who presents with hepatic encephalopathy 1. Symptomatic Chronic Anemia Hgb 5.1 > 6.6 > 7.0 > 6.4 > 6.1 * Given 4 u PRBCs. Will trend H/H. Will give 1 unit pRBC this morning. * Cont home iron 2. Cirrhosis with ascites MELD 30 - 52.6% 90 day mortality. Child-Pederson Score of 8, Class B. On transplant list, [place]. * Will monitor labs while patient is here - daily CBC, CMP, coags * Known to Dr. Schmid, GI consulted apprec recs. * Octreotide drip d/c'd 08/24 * continue Midodrine 7.5 mg TID, oral iron, lactulose, rifaximin, pantoprazole , furosemide, sprionolactone. * D/C furosemide and spironolactone if Cr rises. * Home meds restarted lactulose, aldactone, rifaximine. Titrate lactulose to have 3-5 BM daily * Ascites- Not concerning for SBP * Gram stain: Rare WBCs, No organisms * Cell count: Colorless, clear. WBC- 190, RBC-0, Theo- 10%, Lymph- 40% * Preliminary Cx: Neg 3. H/o esophageal varices * Cont home protonix, no s/s acute bleed, VSS, will monitor 4. CKD 3B with ZACHARY, improving Cr: 2.44 > 2.24 > 2.02 > 1.68 * Baseline Cr 1.53 * Will monitor * Receiving blood products * GI consulted 5. Chronic Thombocytopenia Plt: 75 > 55 > 58 > 53 * Baseline Plt 100 * Will monitor 6. Hx of DMII * A1c in May 2019, 4.6. * No need to monitor sugars. * Not on hyperglycemic meds. 7. Anxiety/depression * Cont buspar 8. Hemorrhoids - Likely source of BRBPR morning of 08/25, as small amount. Code: Full Diet: Regular VTE: SCDs GI PPx: Protonix IVF: SL PCP: CARLY Jeff Dispo: Medical inpt, GI consulted, will follow there recommendations. LOS > 48hours. Addendum - Attending - Attending Attestation Date/Time: 08/25/19 1035 I personally evaluated the patient and discussed the management with Dr. Randhawa. I agree with the History, Examination, Assessment and Plan documented above with any addition or exceptions noted below. The patient's hemoglobin has dropped again. Transfusing 1 unit prbc's. She does have bright red blood seen in the toilet that appears to be more than from a hemorrhoid. Will await gi recs. Trend h/h.
[2019-08-25 06:58] LABS: Hemoglobin 6.1 g/dL (12.0-16.0); Mean Corpuscular HGB CONC 33.4 g/dL (32.0-36.0); Mean Corpuscular Hemoglobin 31.5 pg (27.0-31.0); Mean Corpuscular Volume 94.2 fL (78.0-98.0); Mean Platelet Volume 7.8 fL (7.4-10.4); Platelet Count 55 thou/uL (130-400); RBC Distribution Width 14.2 % (11.5-14.5); Red Blood Cell (RBC) Count 1.94 mill/uL (4.20-5.40); White Blood Cell (WBC) Count 3.1 thou/uL (4.8-10.8)
[2019-08-25 07:17] LABS: Anion Gap 10 mmol/L (10-20); BUN (Urea Nitrogen) 36 mg/dL (9.8-20.1); Calc. Creatinine Clearance 59 mL/min (70-130); Carbon Dioxide 21 mmol/L (22-29); Chloride 103 mmol/L (98-107); Estimated GFR-MDRD 32; Glucose 227 mg/dL (70-105); Potassium 4.8 mmol/L (3.5-5.1); Sodium 129 mmol/L (136-145)
[2019-08-25 07:47] LABS: Band 2 % (5-11); Eosinophils 12 % (0-10); Lymphocytes 19 % (21-51); MDiff Complete? YES; Monocytes 13 % (0-10); Neutrophil 54 % (42-75); Platelet Morphology Comment Appears Decreased; Polychromasia SLIGHT = 2-3 cells (100X) (0-2/hpf)
[2019-08-25] MEDS: Midodrine HCl 5 MG TAB PO SCH ×3 (08:28→16:42)
[2019-08-25] MEDS: Furosemide 20 MG TAB PO SCH ×2 (08:28→20:11)
[2019-08-25] MEDS: Spironolactone 100 MG TAB PO SCH ×2 (08:28→20:10)
[2019-08-25] MEDS: Cyanocobalamin (Vitamin B-12) 1,000 MCG TAB PO SCH (08:28)
[2019-08-25] MEDS: busPIRone HCl 10 MG TAB PO SCH ×2 (08:29→20:10)
[2019-08-25] MEDS: Ferrous Sulfate 325 MG TAB PO SCH ×3 (08:29→20:11)
[2019-08-25] MEDS: Rifaximin 550 MG TAB PO SCH ×2 (08:29→20:10)
[2019-08-25] MEDS: Folic Acid 1 MG TAB PO SCH (08:29)
[2019-08-25] MEDS: traMADol HCl 50 MG TAB PO PRN ×2 (10:32→20:12)
[2019-08-25] MEDS ORDERED: Octreotide Acetate 1,250 MCG in Sodium Chloride 0.9% 250 ML 250 ML IVPB SCH (15:15)
--- NOTE | 2019-08-25 15:36 | PRG ---
DATE OF SERVICE: 08/25/2019 SUBJECTIVE: Ms. Gonzalez has had some rectal bleeding today, it was bright red, the patient's stool is coffee-ground like as well. She is without complaints of pain. MEDICATIONS: 1. Proventil. 2. BuSpar. 3. Vitamin B12. 4. Flexeril. 5. Iron. 6. Folate. 7. Lasix. 8. Lactulose. 9. Midodrine 5 t.i.d. 10. Nicoderm patch. 11. Rifaximin. 12. Furosemide 40 b.i.d. 13. Aldactone 100 mg b.i.d. PHYSICAL EXAMINATION: GENERAL: She is alert and oriented. VITAL SIGNS: Pulse today has been 104-107, blood pressure 98/56. HEENT: Conjunctivae and sclerae are clear. Oropharynx is without lesions. NECK: Supple with no adenopathy. ABDOMEN: Protuberant with ascites. RECTAL: Some bright red blood per rectum. Some internal hemorrhoids. No active bleeding is identified. Hemorrhoids are large. LABORATORY DATA: White count 3.1, hemoglobin 6.1, platelet count 55,000. INR 1.8. Sodium 129, potassium 4.8, BUN and creatinine are 36 and 1.68. Tap was negative for SBP. Cultures negative. ASSESSMENT: End-stage liver disease, admitted with hemoglobin of 5.1. She has received 5 units of blood since arrival. Sometimes she has bleeding that is dark, other times the stools are normal. More recently, she has been having some bright red rectal bleeding which is likely hemorrhoidal. She has had a colonoscopy which was normal in 2017. She has known severe portal gastropathy. RECOMMENDATIONS: I think she needs to get transferred back to [place] to be re-evaluated for TIPS. She has had this revised several times. She continues to bleed and has required 8 units of blood in July and 18 units of blood from March until the end of June. The patient states she is going to see them in 2 weeks in the outpatient setting, although I think we should get her be transferred there for possible revision of her TIPS. I think she continues to bleed and she is being admitted weekly with hemoglobins of 5 for transfusion. Also, ultimately it needs to be decided if she can be a transplant candidate or not. If she is not, then palliative care needs to be considered. I have made a call to the liver clinic and to her nurse coordinator and waiting for a call back from them. Job ID: [id number]
[2019-08-25] MEDS: Nicotine 14 MG PATCH TD SCH (16:42)
[2019-08-25 17:34] LABS: Hemoglobin 7.6 g/dL (12.0-16.0)
[2019-08-25] MEDS: Loratadine 10 MG TAB PO SCH (20:12)
[2019-08-25] MEDS: Melatonin 3 MG TAB PO SCH (22:16)
[2019-08-25] MEDS: Cyclobenzaprine 10 MG TAB PO PRN (22:16)
--- NOTE | 2019-08-26 06:55 | PDOC.FM ---
- Subjective Subjective: Pt states her blood BM's have ceased and this morning there was slight blood on the paper when wiping after BM. Dr. Schmid recommending pt to be transferred back to [facility] in [place] for revision of TIPS. Pt states her swelling in lower extremities is worsened this morning. H&H drawn this AM and pending. - Objective Vital Signs & Weight: Vital Signs (12 hours) Temp Pulse Resp BP Pulse Ox 08/26/19 04:00 98.0 F 106 H 18 98/52 L 98 08/26/19 00:00 98.1 F 107 H 18 115/62 98 08/25/19 20:00 97.9 F 105 H 18 106/66 100 Weight Weight 94.801 kg I&O: 08/24/19 08/25/19 08/26/19 06:59 06:59 06:59 Intake Total 3070 350 1310 Output Total 2450 1600 Balance 620 -1250 1310 Result Diagrams: 08/25/19 17:26 08/25/19 06:44 Phys Exam - Physical Examination Constitutional: NAD HEENT: PERRLA, moist MMs scleral icterus. Neck: no nodes, supple Respiratory: no rhonchi, clear to auscultation bilateral Cardiovascular: RRR, no rub systolic murmur. Distended abdomen with + fluid wave. Musculoskeletal: pulses present, edema present (BLE pitting edmea. ) Neurological: non-focal, moves all 4 limbs Psychiatric: normal affect, A&O x 3 Skin: no rash Deviation from normal: jaundice skin coloration. Dx/Plan (1) Hemorrhoids Code(s): K64.9 - UNSPECIFIED HEMORRHOIDS Status: Acute (2) Symptomatic anemia Code(s): D64.9 - ANEMIA, UNSPECIFIED Status: Chronic (3) CKD (chronic kidney disease) stage 3, GFR 30-59 ml/min Code(s): N18.3 - CHRONIC KIDNEY DISEASE, STAGE 3 (MODERATE) Status: Chronic (4) Cirrhosis of liver with ascites Code(s): K74.60 - UNSPECIFIED CIRRHOSIS OF LIVER Status: Chronic Qualifiers: Hepatic cirrhosis type: unspecified hepatic cirrhosis Qualified Code(s): K74.60 - Unspecified cirrhosis of liver; R18.8 - Other ascites (5) DM type 2 (diabetes mellitus, type 2) Status: Chronic Qualifiers: Diabetes mellitus fci insulin use: without oil heaterman use Diabetes mellitus complication status: with kidney complications Diabetes mellitus complication detail: with chronic kidney disease Chronic kidney disease stage : stage 3 (moderate) Qualified Code(s): E11.22 - Type 2 diabetes mellitus with diabetic chronic kidney disease; N18.3 - Chronic kidney disease, stage 3 ( moderate) (6) Depression Code(s): F32.9 - MAJOR DEPRESSIVE DISORDER, SINGLE EPISODE, UNSPECIFIED Status : Chronic (7) Esophageal varices Code(s): I85.00 - ESOPHAGEAL VARICES WITHOUT BLEEDING Status: Chronic (8) GERD (gastroesophageal reflux disease) Code(s): K21.9 - GASTRO-ESOPHAGEAL REFLUX DISEASE WITHOUT ESOPHAGITIS Status: Chronic Qualifiers: Esophagitis presence: without esophagitis Qualified Code(s): K21.9 - Gastro -esophageal reflux disease without esophagitis (9) HTN (hypertension) Code(s): I10 - ESSENTIAL (PRIMARY) HYPERTENSION Status: Chronic Qualifiers: Hypertension type: unspecified Qualified Code(s): I10 - Essential (primary ) hypertension (10) S/P TIPS (transjugular intrahepatic portosystemic shunt) Status: Chronic (11) Portal hypertensive gastropathy Code(s): K76.6 - PORTAL HYPERTENSION; K31.89 - OTHER DISEASES OF STOMACH AND DUODENUM Status: Chronic - Plan Plan: 53yo F with h/o Cirrhosis with ascites, esophageal varices, Chronic Anemia, DMII , and CKD who presents with hepatic encephalopathy 1. Symptomatic Chronic Anemia, 2/2 hemorrhoids and portal HTN gastropathy. Hgb 5.1 > 6.6 > 7.0 > 6.4 > 6.1 > 7.6 * Given 4 u PRBCs. Will trend H/H. Will give 1 unit pRBC this morning. * Cont home iron * Will initiate transfer to [facility] where Pt's TIPS surgeon are located for revision of TIPS and further recommendations. 2. Cirrhosis with ascites MELD 30 - 52.6% 90 day mortality. Child-Pederson Score of 8, Class B. On transplant list, [place]. * Will monitor labs while patient is here - daily CBC, CMP, coags * Known to Dr. Schmid, GI consulted apprec recs. * Octreotide drip d/c'd 08/24, and restarted on 08/[address] Schmid. * continue Midodrine 7.5 mg TID, oral iron, lactulose, rifaximin, pantoprazole , furosemide, sprionolactone. * D/C furosemide and spironolactone if Cr rises. * Home meds restarted lactulose, aldactone, rifaximine. Titrate lactulose to have 3-5 BM daily * Ascites- Not concerning for SBP * Gram stain: Rare WBCs, No organisms * Cell count: Colorless, clear. WBC- 190, RBC-0, Theo- 10%, Lymph- 40% * Preliminary Cx: Neg 3. H/o esophageal varices * Cont home protonix, no s/s acute bleed, VSS, will monitor 4. CKD 3B with ZACHARY, improving Cr: 2.44 > 2.24 > 2.02 > 1.68 * Baseline Cr 1.53 * Will monitor * Receiving blood products * GI consulted 5. Chronic Thombocytopenia Plt: 75 > 55 > 58 > 53 * Baseline Plt 100 * Will monitor 6. Hx of DMII * A1c in May 2019, 4.6. * No need to monitor sugars. * Not on hyperglycemic meds. 7. Anxiety/depression * Cont buspar 8. Hemorrhoids - Likely source of BRBPR morning of 08/25, as small amount. Code: Full Diet: Regular VTE: SCDs GI PPx: Protonix IVF: SL PCP: CARLY Jeff Dispo: Medical inpt, GI consulted, will follow their recommendations. LOS > 48hours.
[2019-08-26] MEDS: Spironolactone 100 MG TAB PO SCH ×2 (07:58→19:54)
[2019-08-26] MEDS: Furosemide 20 MG TAB PO SCH ×2 (07:58→19:54)
[2019-08-26] MEDS: busPIRone HCl 10 MG TAB PO SCH ×2 (07:59→19:52)
[2019-08-26] MEDS: Rifaximin 550 MG TAB PO SCH ×2 (07:59→19:52)
[2019-08-26] MEDS: Midodrine HCl 5 MG TAB PO SCH ×3 (07:59→16:25)
[2019-08-26] MEDS: Cyanocobalamin (Vitamin B-12) 1,000 MCG TAB PO SCH (07:59)
[2019-08-26] MEDS: Ferrous Sulfate 325 MG TAB PO SCH ×3 (07:59→19:53)
[2019-08-26] MEDS: Folic Acid 1 MG TAB PO SCH (08:00)
[2019-08-26] MEDS: traMADol HCl 50 MG TAB PO PRN ×2 (08:00→20:00)
[2019-08-26 08:40] LABS: #Eosinphils 0.3 thou/uL (0.0-0.7); #Lymphocytes 0.5 thou/uL (1.20-3.40); #Monocytes 0.6 thou/uL (0.11-0.59); #Neutrophils 3.1 thou/uL (1.40-6.50); %Basophils 0.3 % (0.0-1.0); %Eosinophils 7.1 % (0.0-10.0); %Lymphocytes 11.1 % (21.0-51.0); %Monocytes 12.9 % (0.0-10.0); %Neutrophils 68.6 % (42.0-75.0); Hemoglobin 6.7 g/dL (12.0-16.0); Mean Corpuscular HGB CONC 33.8 g/dL (32.0-36.0); Mean Corpuscular Hemoglobin 32.2 pg (27.0-31.0); Mean Corpuscular Volume 95.4 fL (78.0-98.0); Mean Platelet Volume 7.7 fL (7.4-10.4); Platelet Count 64 thou/uL (130-400); RBC Distribution Width 14.3 % (11.5-14.5); Red Blood Cell (RBC) Count 2.07 mill/uL (4.20-5.40); White Blood Cell (WBC) Count 4.5 thou/uL (4.8-10.8)
[2019-08-26 09:02] LABS: Anion Gap 10 mmol/L (10-20); BUN (Urea Nitrogen) 39 mg/dL (9.8-20.1); Calc. Creatinine Clearance 63 mL/min (70-130); Calcium 8.2 mg/dL (7.8-10.44); Carbon Dioxide 21 mmol/L (22-29); Chloride 105 mmol/L (98-107); Estimated GFR-MDRD 34; Glucose 199 mg/dL (70-105); Sodium 131 mmol/L (136-145)
[2019-08-26] MEDS: Nicotine 14 MG PATCH TD SCH (16:25)
[2019-08-26] MEDS: Loratadine 10 MG TAB PO SCH (19:52)
[2019-08-26] MEDS: Melatonin 3 MG TAB PO SCH (19:53)
[2019-08-26 19:58] VITALS: BP 98/58; TEMP 98.3
--- NOTE | 2019-08-27 06:20 | DIS ---
DATE OF ADMISSION: 08/21/2019 DATE OF DISCHARGE: 08/26/2019 RESIDENT: Bonnie Trammell DO. ADMITTING ATTENDING: Whitney Campuzano MD. DISCHARGE ATTENDING: Dr. Jenkins. CONSULTS: Gastroenterology. PROCEDURES: Transfused a total of six packed RBC during course of hospital stay. DIAGNOSTICS: Paracentesis on 08/21/2019. Successful paracentesis with 30 mL of clear ascitic fluid removed. Fluid was not suggestive of spontaneous bacterial peritonitis. DIAGNOSES: 1. Symptomatic chronic anemia secondary to portal hypertension, gastropathy and hemorrhoids from the portal hypertension. 2. Cirrhosis with ascites. 3. End-stage liver disease. 4. History of esophageal varices. 5. History of transjugular intrahepatic portosystemic shunt procedure. 6. Chronic kidney disease, stage IIIB with acute kidney injury. 7. Chronic thrombocytopenia. 8. History of diabetes mellitus type 2. 9. Anxiety/depression. 10. Lower gastrointestinal bleed, via hemorrhoidal bleeding. DISCHARGE MEDICATIONS: 1. Tramadol 50 mg p.o. q.i.d. p.r.n. 2. Hydroxyzine 25 mg p.o. q.8 hours p.r.n. 3. Buspirone 10 mg p.o. b.i.d. 4. Spironolactone 100 mg p.o. b.i.d. 5. Robaxin 550 mg p.o. b.i.d. 6. Protonix 40 mg p.o. b.i.d. 7. Midrin 5 mg p.o. t.i.d. with milk. 8. Melatonin 10 mg p.o. at bedtime. 9. Magnesium 100 mg p.o. daily. 10. Loratadine 10 mg p.o. at bedtime. 11. Lactulose 30 g p.o. b.i.d. 12. Furosemide 40 mg p.o. b.i.d. 13. Folic acid 1 mg p.o. daily. 14. Ferrous sulfate 65 mg p.o. t.i.d. 15. Flexeril 10 mg p.o. t.i.d. p.r.n. 16. Vitamin B12 1000 mcg p.o. daily. 17. Albuterol sulfate/ProAir HFA 2 puffs inhaled q.6 hours p.r.n. HISTORY OF PRESENT ILLNESS/HOSPITAL COURSE: Ms. Jesse Gonzalez is a 53-year- old female with end-stage liver disease that has been in and out of the hospital several times in the last few months for symptomatic anemia. Dr. Schmid who is patient' s GI doctor states that the patient's anemia is caused by portal hypertension gastropathy as well as worsening bleeding hemorrhoids from the portal hypertension. He states that this will require a revision of her TIPS, which was done in [facility] to solve the problem and help treat the patient as this is a higher level of care that can't be provided at [facility] in [place], [place]. The patient was transfused 1 unit of blood each day that she was in the hospital, giving a total of 6 units of blood transfused while here. She had an admission hemoglobin of 5.1, which increased to 6 to 7 range. The patient was transfused each time her hemoglobin dropped below seven. The patient did not present with any type of GI bleeding, but in her hospital course had bright red blood per rectum in small amounts and then a large bloody bowel movement occurring a few times on 08/25. On 08/26, this bleeding had ceased and improved. The patient was stable and ready to be transferred to [facility] for higher level of care. DISPOSITION: She was stable upon discharge. DISCHARGE INSTRUCTIONS: Location: [facility]. Diet: Heart healthy. Activity: As tolerated. Followup: With Dr. Schmid 1 week after d/c from the hospital and followup with primary care 1 week after discharge from the hospital. Job ID: [id number] MTDD
--- NOTE | 2019-08-28 09:20 | PQF ---
KOKI KING KATHERINE MD [id number] CLINICAL DOCUMENTATION CLARIFICATION FORM: POST DISCHARGE Addendum to original discharge summary date: ____ Late entry note date: __ DATE:08/28/2019 ATTN: SEFERINO WHALEN MD Please exercise your independent, professional judgment in responding to the clarification form. Clinical indicators are provided on the bottom of this form for your review Please check appropriate box(s) to clarify if the following diagnosis has been ruled in or ruled out: Hepatorenal syndrome [x ] Ruled in diagnosis [ ] Continue to treat [ x] Resolved [ ] Ruled out diagnosis [ ] Cannot rule out diagnosis [ ] Other diagnosis [ ] Unable to determine For continuity of documentation, please document condition throughout progress notes and discharge summary. Thank You. CLINICAL INDICATORS - SIGNS / SYMPTOMS / LABS ZACHARY,Continue IVF's likely due to volume depletion in conjunction with hepatorenal syndrome -Documented in Family medicine H&P on 08/21 by Jerzy Marks BUN-36,Creatinine-2.44-Documented in [facility] medicine H&P on 08/21 by Jerzy Marks Cirrhosis with ascites-Documented in Family medicine H&P on 08/21 by Jerzy Marks MELD 30-52.6 % day mortality.Child-buckner score of 8 , class B, On transplant list , [place]--Documented in Family medicine H&P on 08/21 by Jerzy Marks Hepatic encephalopathy--Documented in Family medicine H&P on 08/21 by Jerzy Marks CKD 3B with ZACHARY--Documented in [facility] medicine H&P on 08/21 by Jerzy Marks End stage liver disease-Documented in Discharge summary on 08/26 by Bonnie Trammell DO RISK FACTORS CKD 3B with ZACHARY--Documented in Family medicine H&P on 08/21 by Jerzy Marks End stage liver disease-Documented in Discharge summary on 08/26 by Bonnie Trammell DO Hepatic encephalopathy--Documented in Family medicine H&P on 08/21 by Jerzy Marks TREATMENTS Will monitor labs while patient is here -daily CBC, CMP, Coags-Documented in Family medicine H&P on 08/21 by Jerzy Marks Cont home lactulose, Aldactone, rifaximin. Titrate lactulose to have 3.5 bm daily --Documented in Family medicine H&P on 08/21 by Jerzy Marks Diagnostic paracentesis-Documented in OP note on 08/21 by Issa Cota (This form is maintained as a part of the permanent medical record) 2014 [employer]. All Rights Reserved [email or web address] [not provided] MTDD
== END 2019-08-26 20:40 | disposition short-term general hospital (02) | DRG 441 ==
LOC: ERS 10:57 → 2SW 13:42 → OBSVTOIN 13:42 → T4-B 08-22 17:02
PROVIDERS: ADMIT Family Medicine; ATTEND Family Medicine
PROC: 0W9G3ZX Drainage of Peritoneal Cavity, Percutaneous Approach, Diagnostic (ICD-10-PCS; principal; 2019-08-21)
PROC: 30233N1 Transfusion of Nonautologous Red Blood Cells into Peripheral Vein, Percutaneous Approach (ICD-10-PCS; 2019-08-21)
DX: K76.6 Portal hypertension (principal); K76.7 Hepatorenal syndrome; R18.8 Other ascites; N17.9 Acute kidney failure, unspecified; E87.1 Hypo-osmolality and hyponatremia; I85.00 Esophageal varices without bleeding; K31.89 Other diseases of stomach and duodenum; K64.9 Unspecified hemorrhoids; K74.60 Unspecified cirrhosis of liver; I12.9 Hypertensive chronic kidney disease with stage 1 through stage 4 chronic kidney disease, or unspecified chronic kidney disease; E11.22 Type 2 diabetes mellitus with diabetic chronic kidney disease; N18.3 Chronic kidney disease, stage 3 (moderate); D69.6 Thrombocytopenia, unspecified; F41.9 Anxiety disorder, unspecified; F32.9 Major depressive disorder, single episode, unspecified; Z88.5 Allergy status to narcotic agent; Z88.8 Allergy status to other drugs, medicaments and biological substances; K21.9 Gastro-esophageal reflux disease without esophagitis; Z90.49 Acquired absence of other specified parts of digestive tract; Z82.49 Family history of ischemic heart disease and other diseases of the circulatory system; F17.210 Nicotine dependence, cigarettes, uncomplicated; K72.90 Hepatic failure, unspecified without coma; D64.89 Other specified anemias
CPT/HCPCS: 36415; 36430; 49083; 80048; 80053; 85014; 85018; 85025; 85060; 85610; 85730; 86850; 86900; 86901; 87070; 87205; 89051; J1642; J2354; J7050; P9016; P9047

== ENCOUNTER 2019-09-05 09:39 | Day surgery (SDC) | payer OTHER ==
[2019-09-04 10:03] VITALS: BMI 27.3
[2019-09-05] MEDS ORDERED: Sodium Bicarbonate 2.5 MEQ/5 ML VIAL ONE ×2 (10:09→10:10)
[2019-09-05] MEDS ORDERED: Sodium Chloride 0.9% 20 ML ONE (10:10)
[2019-09-05] MEDS ORDERED: Albumin 25% 200 ML ONE (10:10)
[2019-09-05] MEDS ORDERED: FLU VACC QS2019-20(6MOS UP)/PF 60 MCG/0.5 ML SYRINGE IM ONE (10:45)
[2019-09-05 10:53] LABS: Hemoglobin 9.3 g/dL (12.0-16.0)
[2019-09-05 11:02] LABS: Anion Gap 11 mmol/L (10-20); BUN (Urea Nitrogen) 15 mg/dL (9.8-20.1); Calc. Creatinine Clearance 71 mL/min (70-130); Calcium 7.9 mg/dL (7.8-10.44); Carbon Dioxide 23 mmol/L (22-29); Chloride 104 mmol/L (98-107); Estimated GFR-MDRD 49; Glucose 161 mg/dL (70-105); Potassium 4.9 mmol/L (3.5-5.1); Sodium 133 mmol/L (136-145)
--- NOTE | 2019-09-05 12:04 | ULT ---
US Paracentesis with Imaging History: Ascites Comparison: Paracentesis August 21, 2019 Findings: Patient was brought to the ultrasound suite. All questions were answered. Informed consent was obtained. Timeout performed. The patient's right lower quadrant was prepped and draped in normal sterile fashion. Using ultrasound guidance after adequate anesthesia a total of 5.8 L of straw-colored fluid was removed. The patient tolerated the procedure well without complication. Impression: Technically successful ultrasound-guided paracentesis.
[2019-09-05 12:30] VITALS: BP 124/68; TEMP 97.9
== END 2019-09-05 11:50 | disposition home or self-care (01) ==
LOC: ULT 09:39
PROVIDERS: ATTEND Internal Medicine Gastroenterology
PROC: BW40ZZZ Ultrasonography of Abdomen (ICD-10-PCS; principal; 2019-09-05)
PROC: 0W9G3ZZ Drainage of Peritoneal Cavity, Percutaneous Approach (ICD-10-PCS; principal; 2019-09-05)
DX: K74.60 Unspecified cirrhosis of liver (principal); R18.8 Other ascites; I12.9 Hypertensive chronic kidney disease with stage 1 through stage 4 chronic kidney disease, or unspecified chronic kidney disease; E11.22 Type 2 diabetes mellitus with diabetic chronic kidney disease; N18.9 Chronic kidney disease, unspecified; J44.9 Chronic obstructive pulmonary disease, unspecified; D64.9 Anemia, unspecified; F17.200 Nicotine dependence, unspecified, uncomplicated; F41.9 Anxiety disorder, unspecified; F32.9 Major depressive disorder, single episode, unspecified; Z79.899 Other long term (current) drug therapy; Z88.0 Allergy status to penicillin; Z88.2 Allergy status to sulfonamides; Z88.5 Allergy status to narcotic agent; Z88.6 Allergy status to analgesic agent; Z88.8 Allergy status to other drugs, medicaments and biological substances; Z91.018 Allergy to other foods
CPT/HCPCS: 49083; 80048; 85014; 85018; J1642; P9047

== ENCOUNTER 2019-09-12 09:47 | Day surgery (SDC) | payer OTHER ==
[2019-09-12] MEDS ORDERED: Albumin 25% 200 ML ONE (10:12)
[2019-09-12] MEDS ORDERED: Sodium Chloride 0.9% 10 ML ONE (11:01)
[2019-09-12 11:06] LABS: INR-International Normal Ratio 1.5; Prothrombin Time 17.7 SEC (12.0-14.7)
[2019-09-12 11:16] LABS: ALT (SGPT) 14 U/L (8-55); AST (SGOT) 25 U/L (5-34); Albumin 2.8 g/dL (3.5-5.0); Alkaline Phosphatase 91 U/L (40-110); Anion Gap 9 mmol/L (10-20); BUN (Urea Nitrogen) 13 mg/dL (9.8-20.1); Bilirubin, Total 2.1 mg/dL (0.2-1.2); Calc. Creatinine Clearance 0 mL/min (70-130); Calcium 7.8 mg/dL (7.8-10.44); Carbon Dioxide 23 mmol/L (22-29); Chloride 106 mmol/L (98-107); Estimated GFR-MDRD 45; Globulin 2.6 g/dL (2.4-3.5); Glucose 184 mg/dL (70-105); Potassium 3.9 mmol/L (3.5-5.1); Protein, Total 5.4 g/dL (6.0-8.3); Sodium 134 mmol/L (136-145)
[2019-09-12 11:24] LABS: Hemoglobin 8.7 g/dL (12.0-16.0); Mean Corpuscular HGB CONC 33.6 g/dL (32.0-36.0); Mean Corpuscular Hemoglobin 31.6 pg (27.0-31.0); Mean Corpuscular Volume 94.2 fL (78.0-98.0); Mean Platelet Volume 8.6 fL (7.4-10.4); Platelet Count 84 thou/uL (130-400); RBC Distribution Width 14.9 % (11.5-14.5); Red Blood Cell (RBC) Count 2.76 mill/uL (4.20-5.40); White Blood Cell (WBC) Count 3.8 thou/uL (4.8-10.8)
[2019-09-12 11:37] LABS: Band 3 % (5-11); Eosinophils 2 % (0-10); Lymphocytes 19 % (21-51); MDiff Complete? YES; Monocytes 16 % (0-10); Myelocyte 1 % (0-0); Neutrophil 59 % (42-75); Platelet Morphology Comment Appears Decreased; Polychromasia SLIGHT = 2-3 cells (100X) (0-2/hpf); RBC Morphology Normal
--- NOTE | 2019-09-12 11:46 | ULT ---
Exam: Ultrasound guided paracentesis HISTORY: Ascites COMPARISON: 09/05/2019 FINDINGS: Successful ultrasound-guided paracentesis. Total of 6500 mL of yellow color ascites was asp irated. TECHNIQUE: Consent obtained reformatory ultrasound-guided paracentesis. Right lower quadrant was deem ed appropriate. Skin was prepped and draped in a sterile fashion. 1% lidocaine, buffered with sodium bicarbonate was used for local anesthesia. Under ultrasound guidance, a 5 [place] 7 cm Yueh cat heter is advanced in the peritoneal space. A total of 6500 mL of yellow color ascites was aspirated. No immediate or postprocedural complications IMPRESSION: Successful ultrasound-guided paracentesis.
[2019-09-12 13:01] VITALS: BP 100/57; TEMP 97.9
[2019-09-12 13:37] LABS: Reference Lab Name LABCORP
[2019-09-12 13:38] LABS: Ref Lab Test Ordered NICOTINE METS UR
== END 2019-09-12 12:00 | disposition home or self-care (01) ==
LOC: ULT 09:47
PROVIDERS: ATTEND Internal Medicine Gastroenterology
PROC: 0W9G3ZZ Drainage of Peritoneal Cavity, Percutaneous Approach (ICD-10-PCS; principal; 2019-09-12)
DX: K74.60 Unspecified cirrhosis of liver (principal); R18.8 Other ascites; J44.9 Chronic obstructive pulmonary disease, unspecified; I12.9 Hypertensive chronic kidney disease with stage 1 through stage 4 chronic kidney disease, or unspecified chronic kidney disease; E11.22 Type 2 diabetes mellitus with diabetic chronic kidney disease; N18.9 Chronic kidney disease, unspecified; K21.9 Gastro-esophageal reflux disease without esophagitis; F41.9 Anxiety disorder, unspecified; F32.9 Major depressive disorder, single episode, unspecified; Z88.0 Allergy status to penicillin; Z88.2 Allergy status to sulfonamides; Z88.5 Allergy status to narcotic agent; Z88.8 Allergy status to other drugs, medicaments and biological substances; Z91.018 Allergy to other foods
CPT/HCPCS: 49083; 80053; 85025; 85610; J1642; P9047

== ENCOUNTER 2019-09-19 10:50 | Day surgery (SDC) | payer OTHER ==
[2019-09-18 14:29] VITALS: BMI 27.3
[2019-09-19] MEDS ORDERED: Sodium Chloride 0.9% 20 ML ONE (11:16)
[2019-09-19] MEDS ORDERED: Sodium Bicarbonate 2.5 MEQ/5 ML VIAL ONE (11:16)
[2019-09-19] MEDS ORDERED: Lidocaine 1% PF 5 ML VIAL ONE (11:16)
[2019-09-19] MEDS ORDERED: Albumin 25% 200 ML ONE (11:16)
[2019-09-19 12:06] LABS: Hemoglobin 8.7 g/dL (12.0-16.0); Mean Corpuscular HGB CONC 33.6 g/dL (32.0-36.0); Mean Corpuscular Hemoglobin 31.7 pg (27.0-31.0); Mean Corpuscular Volume 94.3 fL (78.0-98.0); Mean Platelet Volume 7.9 fL (7.4-10.4); Platelet Count 94 thou/uL (130-400); RBC Distribution Width 15.1 % (11.5-14.5); Red Blood Cell (RBC) Count 2.73 mill/uL (4.20-5.40); White Blood Cell (WBC) Count 3.2 thou/uL (4.8-10.8)
[2019-09-19 12:33] LABS: ALT (SGPT) 15 U/L (8-55); AST (SGOT) 27 U/L (5-34); Alkaline Phosphatase 108 U/L (40-110); Anion Gap 11 mmol/L (10-20); BUN (Urea Nitrogen) 22 mg/dL (9.8-20.1); Bilirubin, Total 2.1 mg/dL (0.2-1.2); Calc. Creatinine Clearance 63 mL/min (70-130); Calcium 8.5 mg/dL (7.8-10.44); Carbon Dioxide 22 mmol/L (22-29); Chloride 103 mmol/L (98-107); Estimated GFR-MDRD 42; Globulin 2.9 g/dL (2.4-3.5); Glucose 200 mg/dL (70-105); Potassium 4.4 mmol/L (3.5-5.1); Protein, Total 5.9 g/dL (6.0-8.3); Sodium 132 mmol/L (136-145)
[2019-09-19 12:53] LABS: Band 8 % (5-11); Eosinophils 8 % (0-10); Lymphocytes 26 % (21-51); MDiff Complete? YES; Monocytes 17 % (0-10); Neutrophil 41 % (42-75); Platelet Morphology Comment Appears Decreased; Polychromasia SLIGHT = 2-3 cells (100X) (0-2/hpf)
[2019-09-19 13:11] VITALS: BP 115/66; TEMP 98.3
--- NOTE | 2019-09-19 14:31 | ULT ---
Exam: Ultrasound guided paracentesis HISTORY: Ascites COMPARISON: Prior exam dated September 12, 2019 FINDINGS: Successful ultrasound-guided paracentesis. Total of 4 L of normal appearingascites was aspi rated. TECHNIQUE: Consent obtained reformatory ultrasound-guided paracentesis. Right lower quadrant was deem ed appropriate. Skin was prepped and draped in a sterile fashion. 1% lidocaine, buffered with sodium bicarbonate was used for local anesthesia. Under ultrasound guidance, a 5 Romanian 7 cm Yueh cat heter is advanced in the peritoneal space. A total of 4 L of normal appearingascites was aspirated. No immediate or postprocedural complications IMPRESSION: Successful ultrasound-guided paracentesis.
[2019-09-19 15:42] LABS: RBC Count-Automated (BF) 2148 /cumm; WBC/Nucleated-Auto (BF) 135 uL
[2019-09-19 16:10] LABS: BF Color Yellow; Body Fluid Source Ascites Body Fluid; Clarity Cloudy/Turbid (Clear); Tube # 1
[2019-09-19 16:12] LABS: BF Segmented Neutrophils 3 %; Cell Count Non Hematic 80 %; Eosinophils 2 %; Lymphocytes 15 %
== END 2019-09-19 12:40 | disposition home or self-care (01) ==
LOC: ULT 10:50
PROVIDERS: ATTEND Internal Medicine Gastroenterology
PROC: 0W9G3ZZ Drainage of Peritoneal Cavity, Percutaneous Approach (ICD-10-PCS; principal; 2019-09-19)
DX: K74.60 Unspecified cirrhosis of liver (principal); R18.8 Other ascites; I12.9 Hypertensive chronic kidney disease with stage 1 through stage 4 chronic kidney disease, or unspecified chronic kidney disease; E11.22 Type 2 diabetes mellitus with diabetic chronic kidney disease; N18.9 Chronic kidney disease, unspecified; J44.9 Chronic obstructive pulmonary disease, unspecified; F41.9 Anxiety disorder, unspecified; F32.9 Major depressive disorder, single episode, unspecified; G89.29 Other chronic pain; M54.9 Dorsalgia, unspecified; K21.9 Gastro-esophageal reflux disease without esophagitis; Z79.899 Other long term (current) drug therapy; Z88.0 Allergy status to penicillin; Z88.2 Allergy status to sulfonamides; Z88.5 Allergy status to narcotic agent; Z88.8 Allergy status to other drugs, medicaments and biological substances; Z91.018 Allergy to other foods; Z91.048 Other nonmedicinal substance allergy status
CPT/HCPCS: 49083; 80053; 85025; 85060; 89051; J1642; J2001; P9047

== ENCOUNTER 2019-09-19 12:37 | Inpatient (IN) | payer OTHER ==
--- NOTE | 2019-09-19 13:33 | RAD ---
EXAM: Single view of the chest HISTORY: Altered mental status COMPARISON: 08/10/2019 FINDINGS: Single view of the chest shows a normal sized cardiomediastinal silhouette. A central cath eter seen with its tip in the superior vena cava. There is no evidence of consolidation, mass, or pleural effusion. The bones are unremarkable. IMPRESSION: No evidence of acute cardiopulmonary disease
--- NOTE | 2019-09-19 13:44 | CT ---
EXAM: CT brain without contrast HISTORY: Altered mental status COMPARISON: 08/10/2019 TECHNIQUE: Multiple contiguous axial images were obtained and a CT of the brain without contrast. FINDINGS: The brain is normal in morphology and attenuation without focal lesions or confluent areas of infarction. There is no evidence of hydrocephalus, intracranial hemorrhage, or extra-axial fluid collection. The calvarium and overlying soft tissues are unremarkable. The visualized paranasal sinuses and masto id air cells are well aerated. IMPRESSION: No evidence of acute intracranial abnormality
[2019-09-19 13:47] LABS: Hemoglobin 7.5 g/dL (12.0-16.0); Mean Corpuscular HGB CONC 33.1 g/dL (32.0-36.0); Mean Corpuscular Hemoglobin 31.1 pg (27.0-31.0); Mean Platelet Volume 8.9 fL (7.4-10.4); Platelet Count 72 thou/uL (130-400); RBC Distribution Width 15.2 % (11.5-14.5); Red Blood Cell (RBC) Count 2.42 mill/uL (4.20-5.40); White Blood Cell (WBC) Count 2.3 thou/uL (4.8-10.8)
[2019-09-19 13:51] LABS: INR-International Normal Ratio 1.6; PTT 41.8 SEC (22.9-36.1); Prothrombin Time 18.8 SEC (12.0-14.7)
[2019-09-19 14:01] LABS: ALT (SGPT) 15 U/L (8-55); AST (SGOT) 23 U/L (5-34); Albumin 3.6 g/dL (3.5-5.0); Alkaline Phosphatase 91 U/L (40-110); Anion Gap 11 mmol/L (10-20); BUN (Urea Nitrogen) 21 mg/dL (9.8-20.1); Bilirubin, Total 2.1 mg/dL (0.2-1.2); Calc. Creatinine Clearance 0 mL/min (70-130); Calcium 8.7 mg/dL (7.8-10.44); Carbon Dioxide 23 mmol/L (22-29); Chloride 105 mmol/L (98-107); Estimated GFR-MDRD 39; Globulin 2.3 g/dL (2.4-3.5); Glucose 174 mg/dL (70-105); Potassium 4.4 mmol/L (3.5-5.1); Protein, Total 5.9 g/dL (6.0-8.3); Sodium 135 mmol/L (136-145)
[2019-09-19 14:12] LABS: Band 5 % (5-11); Eosinophils 2 % (0-10); Lymphocytes 29 % (21-51); MDiff Complete? YES; Monocytes 14 % (0-10); Neutrophil 49 % (42-75); Platelet Morphology Comment Appears Decreased; Polychromasia MODERATE = 3-4 cells (100X) (0-2/hpf); Reactive Lymphocytes 1 % (0-10); Tear Drops SLIGHT = 2-5 cells (100X) (0-1/hpf)
[2019-09-19] MEDS ORDERED: Acetaminophen 325 MG TAB PO PRN (15:19)
[2019-09-19] MEDS ORDERED: Ondansetron PF 4 MG/2 ML Vial IVP PRN ×2 (15:19→18:44)
[2019-09-19] MEDS ORDERED: HYDROcodone/Acetaminophen 5/325 mg Tablet PO PRN ×2 (15:19)
[2019-09-19] MEDS ORDERED: Ondansetron ODT 4 MG TAB SL PRN (15:19)
--- NOTE | 2019-09-19 15:40 | PDOC.FPRHP ---
- History of Present Illness Chief Complaint: sent from 's office for "low blood count" History of Present Illness: 53yo F with a PMH significant for cirrhosis, anemia, DMII, HTN who presents to the ED after her paracentesis this morning. Pt is altered, A/O x2 but rambles and unclear of details. She is unclear of how she got to ED or her current situation. Per nursing reports, was altered at para this morning, removed 4L clear fluid, and was brought down to the ED for eval. Per MOPHEAD SEWER in ED, will start transfusion of 1u pRBC and admit for hepatic encephalopathy. ED Course: Obtained labs. Stated were going to transfuse 1u pRBC transfusion - Allergies/Adverse Reactions Allergies Allergy/AdvReac Type Severity Reaction Status Date / Time acetaminophen [From Tylenol] Allergy Verified 09/19/19 19:43 aspirin Allergy Verified 09/19/19 19:43 butorphanol [From Stadol] Allergy Verified 09/19/19 19:43 codeine Allergy Verified 09/19/19 19:43 morphine Allergy Verified 09/19/19 19:43 Penicillins Allergy vomiting Verified 09/19/19 19:43 silver Allergy Verified 09/19/19 19:43 [From Tegaderm AG Mesh] Sulfa (Sulfonamide Allergy Verified 09/19/19 19:43 Antibiotics) persimmon Allergy Uncoded 09/18/19 14:09 - Home Medications Medication Instructions Recorded Confirmed Type Spironolactone [Aldactone] 100 mg PO BID 01/10/19 09/19/19 History Albuterol Sulfate [Proair HFA] 2 puff INH Q6HR PRN 05/30/19 09/19/19 History Cyanocobalamin (Vitamin B-12) 2,000 mcg PO DAILY 05/30/19 09/19/19 History [Vitamin B-12] Cyclobenzaprine [Flexeril] 10 mg PO Q8H PRN 05/30/19 09/19/19 History Ferrous Sulfate 325 mg PO TID 05/30/19 09/19/19 History Folic Acid [Folvite] 1 mg PO DAILY 05/30/19 09/19/19 History Melatonin 10 mg PO HS 05/30/19 09/19/19 History Rifaximin [Xifaxan] 550 mg PO BID 05/30/19 09/19/19 History busPIRone HCl [Buspar] 10 mg PO BID 05/30/19 09/19/19 History traMADol HCl [Tramadol HCl] 50 mg PO QID PRN 05/30/19 09/19/19 History Furosemide [Lasix] 40 mg PO BID 06/23/19 09/19/19 History Pantoprazole [Protonix] 40 mg PO BID 06/23/19 09/19/19 History Lactulose [Kristalose] 30 gm PO BID #14 packet 06/26/19 09/19/19 Rx hydrOXYzine HCl [Hydroxyzine HCl] 25 mg PO Q6HR 07/17/19 09/19/19 History Loratadine 10 mg PO HS 07/25/19 09/19/19 History Midodrine HCl [ProAmatine] 5 mg PO TID-WM tab 08/26/19 09/19/19 Rx Fluticasone Propionate [Flonase 2 spray EA NARE DAILY 09/05/19 09/19/19 History Nasal [place]] Magnesium Oxide 500 mg PO DAILY 09/19/19 09/19/19 History - History PMHx: Anxiety, DMII, GERD, Cirrhosis, Ascites, HTN PSHx: TIPS 06/09/2018 with revisions in December 2018 and February 2019. Esophageal varices repairs with unknown dates. Tonsilectomy, Cholecystectomy, EGD's, Colonoscopy, ESWT for Kidney stones FHx: Grandma- Heart and colon problems, Mom- heart problems Social: smokes occasionally smokes a few cigs a day. Smoked 1 ppd for 14 years. Denies any illicit drug use. H/o EtOH use but does not disclose time line or amount. CODE STATUS: FULL CODE - Review of Systems ROS unobtainable: due to mental status (Encephalopathic, answers most questions with "the usual and no acute changes") General: denies: fever/chills Eyes: denies: vision changes ENT: denies: nasal congestion, rhinorrhea Respiratory: reports: shortness of breath. denies: cough Cardiovascular: denies: chest pain Gastrointestinal: reports: abdominal pain. denies: nausea, vomiting Genitourinary: denies: dysuria Skin: reports: itching. denies: rashes Musculoskeletal: denies: swelling - Vital signs BP: 110/60 HR: 98 RR: 25 Tmax: Pox: 100% on RA Wt: 69kg - Physical Exam Constitutional: NAD, well developed, other (oriented to person and place but not time) HEENT: normocephalic and atraumatic, conjunctiva clear, no scleral icterus, MMM , oropharynx clear Neck: supple, trachea midline Chest: no-tender to palpation Heart: RRR, normal S1/S2, no murmurs/rubs/gallops, pulses present, no edema Lungs: CTAB, no respiratory distress, good air movement, no rales/rhonchi, no wheezing Abdomen: soft, non-tender, bowel sounds present, no masses/distention Musculoskeletal: normal structure, normal tone Neurological: no focal deficit, other (no asterixis or nystagmus) Skin: other (Mildly jaundice appearing) Heme/Lymphatic: no unusual bruising or bleeding Psychiatric: other (A/O x2, rambles, loses train of thought, recent memory not intact.) FMR H&P: Results - Labs Result Diagrams: 09/20/19 03:43 09/20/19 03:43 Lab results: WBC 2.3 thou/uL (4.8-10.8) L 09/19/19 13:29 Hgb 7.5 g/dL (12.0-16.0) L 09/19/19 13:29 Hct 22.7 % (36.0-47.0) L 09/19/19 13:29 MCV 94.0 fL (78.0-98.0) 09/19/19 13:29 Plt Count 72 thou/uL (130-400) L 09/19/19 13:29 Band Neuts % (Manual) 5 % (5-11) 09/19/19 13:29 Sodium 135 mmol/L (136-145) L 09/19/19 13:29 Potassium 4.4 mmol/L (3.5-5.1) 09/19/19 13:29 Chloride 105 mmol/L (98-107) 09/19/19 13:29 Carbon Dioxide 23 mmol/L (22-29) 09/19/19 13:29 BUN 21 mg/dL (9.8-20.1) H 09/19/19 13:29 Creatinine 1.41 mg/dL (0.6-1.1) H 09/19/19 13:29 Glucose 174 mg/dL (70-105) H 09/19/19 13:29 Calcium 8.7 mg/dL (7.8-10.44) 09/19/19 13:29 Total Bilirubin 2.1 mg/dL (0.2-1.2) H 09/19/19 13:29 AST 23 U/L (5-34) 09/19/19 13:29 ALT 15 U/L (8-55) 09/19/19 13:29 Alkaline Phosphatase 91 U/L (40-110) 09/19/19 13:29 Ammonia 103 umol/L (18-72) H 09/19/19 13:28 Serum Total Protein 5.9 g/dL (6.0-8.3) L 09/19/19 13:29 Albumin 3.6 g/dL (3.5-5.0) 09/19/19 13:29 - Radiology Interpretation CT scan - head Status: report reviewed by me (NO acute abnormalities) Chest x-ray Status: report reviewed by me (NO acute Cpp) FMR H&P: A/P - Problem List (1) Hepatic encephalopathy Current Visit: Yes Status: Acute Priority: High Code(s): K72.90 - HEPATIC FAILURE, UNSPECIFIED WITHOUT COMA (2) Anemia Current Visit: Yes Status: Acute Code(s): D64.9 - ANEMIA, UNSPECIFIED Qualifiers: Anemia type: unspecified type Qualified Code(s): D64.9 - Anemia, unspecified (3) CKD (chronic kidney disease) stage 3, GFR 30-59 ml/min Current Visit: Yes Status: Chronic Priority: Medium Code(s): N18.3 - CHRONIC KIDNEY DISEASE, STAGE 3 (MODERATE) (4) Cirrhosis of liver with ascites Current Visit: Yes Status: Chronic Priority: High Code(s): K74.60 - UNSPECIFIED CIRRHOSIS OF LIVER Qualifiers: Hepatic cirrhosis type: unspecified hepatic cirrhosis Qualified Code(s): K74.60 - Unspecified cirrhosis of liver; R18.8 - Other ascites Comment: SPENCER with recurrent ascites, plan for US guided paracentesis in am, GI consult pending. 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 Diabetes mellitus complication status: with kidney complications Diabetes mellitus complication detail: with chronic kidney disease Chronic kidney disease stage : stage 3 (moderate) Qualified Code(s): E11.22 - Type 2 diabetes mellitus with diabetic chronic kidney disease; N18.3 - Chronic kidney disease, stage 3 ( moderate) (6) Depression Current Visit: No Status: Chronic Code(s): F32.9 - MAJOR DEPRESSIVE DISORDER , SINGLE EPISODE, UNSPECIFIED (7) GERD (gastroesophageal reflux disease) Current Visit: No Status: Chronic Code(s): K21.9 - GASTRO-ESOPHAGEAL REFLUX DISEASE WITHOUT ESOPHAGITIS Qualifiers: Esophagitis presence: without esophagitis Qualified Code(s): K21.9 - Gastro -esophageal reflux disease without esophagitis (8) HTN (hypertension) Current Visit: No Status: Chronic Code(s): I10 - ESSENTIAL (PRIMARY) HYPERTENSION Qualifiers: Hypertension type: unspecified Qualified Code(s): I10 - Essential (primary ) hypertension - Plan 53yo F with h/o Cirrhosis with ascites, esophageal varices, Chronic Anemia, DMII , and CKD who presents with hepatic encephalopathy #Acute on chronic anemia - Hb 7.5, ED stated going to start transfusion of 1u pRBC - 4hr post-transfusion H/H - no s/s of acute blood loss, initially hypotensive, but now VSS on exam #Hepatic Encephalopathy - A/O x2, mildly confused on exam. Child-Pederson of 7, Class B. On transplant list , [place] - Will cont lactulose 30g q1hr to titrate to 2-3 soft stools per day - cont home aldactone, rifaximine - Monitor mentation - Will order UA to r/o acute cystitis contributing to AMS #Cirrhosis with ascities - MELD 19, 6.0% 3-mo mortality. See above - Known to Dr. Schmid - Cont home meds #H/o esophageal varices - cont home protonix, no s/s of acute bleed, VSS, will monitor #CKD 3 - Cr 1.4, appears new baseline, receiving blood product, will monitor #Chronic Thombocytopenia - Plt: 72, will monitor, hold anticoagulation for DVT PPX 2/2 thombocytopenia #Hx of DMII - A1c in May 2019 4.6. No home insulin. Will monitor. #Anxiety/depression - Cont buspar Code: Full Diet: Regular VTE: SCDs GI PPx: Protonix IVF: SL PCP: CARLY Jeff Dispo: Admit to medical for acute on chronic anemia and hepatic encephalopathy. Tranfuse 1u pRBC. Cont home meds, titrate lactulose, trend labs. Anticipate hospitalization >48hours. FMR H&P: Upper Level - Pertinent history 53yo F with a PMH significant for end stage cirrhosis, anemia, DMII, and HTN who presented to the ED per the recs of her GI physicans, Dr. Schmid, after being noted to be altered during her paracentesis this morning. Per the ER MOPHEAD SEWER and nurse, the patient was reportedly noted to be altered and confused during her paracentesis but had 4L removed w/o any complications per chart review. The radiology staff noticed then and then notified Dr. Schmid who recommended the patient be brought to the Ed for further evaluation. Of note, the patient's mentation had reportedly improved slightly since her arrival to the ED per her nurse but she was still only oriented to person and place at the time of the exam. Therefore, history was obtained from medical staff rather than the patient herself. - Pertinent findings Labs/Imaging: WBC 2.3 H/H 7.5/22.7 Plt 72 BUN/Cr 21/1.41 eGFR 39 Na 135 Ammonia 103 CXR: NAF Head CT: NAF ROS [limited due to mental status (Encephalopathic, answered most questions with "the usual" or "same as always")] General: No fever/chills Eyes: No vision changes ENT: No nasal congestion or rhinorrhea Respiratory: + shortness of breath. No cough Cardiovascular: No chest pain Gastrointestinal: + abdominal pain but no distention, nausea, or vomiting Genitourinary: No dysuria or hematuria Skin: + itching but no rashes Musculoskeletal: No swelling or myalgias Vitals: BP: 110/60 HR: 98 RR: 25 Tmax: Pox: 100% on RA Wt: 69kg Physical Exam Constitutional: NAD, well developed, oriented to person and place but not time or circumstances HEENT: normocephalic and atraumatic, conjunctiva clear, no scleral icterus, MMM , oropharynx clear Neck: supple, trachea midline Heart: RRR, normal S1/S2, no murmurs/rubs/gallops, pulses present, no LE edema Lungs: CTAB, no respiratory distress, good air movement, no rales/rhonchi, no wheezing Abdomen: soft, non-tender, bowel sounds present, no distention Musculoskeletal: normal structure, normal tone Neurological: no focal deficits, 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 rambles & loses train of thought easily; recent memory not intact - Plan Date/Time: 09/19/19 4469 I, Reina Paula, have evaluated this patient and agree with findings/plan as outlined by logistics intern resident. Pertinent changes/additions are listed here. 53YOF with a PMH significant for end stage Cirrhosis with ascites, Chronic Anemia, DMII, and CKDIII who presents for evaluation for AMS most likely 2/2 acute hepatic encephalopathy. #Acute Metabolic Encephalopathy 2/2 hyperammonemia - A/O x2 on presentation with poor recent memory. Ammonia level elevated at 103 on presentation which is at a level at which patient has presented altered before. - Will cont lactulose 30g PO q1hr & titrate until patient achieves 2-3 soft stools per day - cont home aldactone & rifaximine as GEO - Based on what workup that has been done thus far assume AMS is only due to elevated ammonia level but not all possible sources of infection have been assessed as no UA has been collected. Will ensure that a UA is collected to r/o acute cystitis asa potential etiology of her AMS. #Acute on chronic anemia - Hb 7.5 on presentation, ED reported that they would order and transfuse 1U of PRBCs per GI recs. - Will obtain a 4hr post-transfusion H/H & repeat in the AM as well. - No s/s of acute blood loss, initially hypotensive but underwent paracentesis today. #End stage Cirrhosis with ascities 2/2 EtOH abuse - MELD score of 19 with a 6.0% 3-month mortality risk. On transplant list. - Follows with Dr. Schmid. - Cont home meds #H/o esophageal varices - Aware. Continue home protonix. #CKD 3 - Cr 1.4 with an eGFR of 39 on presentation. Per chart review appears to be new baseline. - Will renally dose all meds PRN & continue to monitor. #Chronic Thombocytopenia - Plt low at 72 on presentation. Below threshold to start VTE PPx. - Will continue to trend. #Hx of DMII - A1c in May 2019 4.6. No home insulin. Will monitor closely. #Anxiety/depression - Will continue home buspar. Code: Full Diet: Regular VTE: SCDs GI PPx: Protonix IVFs: SL Abx: None PCP: CARLY Jeff Dispo: Will admit to medical floor acute hepatic encephalopathy & tranfuse 1u of PRBCs per GI recs. Anticipated LOS >48hours pending clinical course. Addendum - Attending - Attending Attestation Date/Time: 09/20/19 0076 I personally evaluated the patient and discussed the management with Dr. Paula on 09/19/2019 I agree with the History, Examination, Assessment and Plan documented above with any addition or exceptions noted below- 53yo F with a PMH significant for cirrhosis, anemia, DMII, HTN who presents to the ED after her paracentesis this morning. Pt is altered, A/O x2 but rambles and unclear of details. She is unclear of how she got to ED or her current situation. Per nursing reports, was altered at para this morning, removed 4L clear fluid, and was brought down to the ED for eval. Patient reports that she has not had a bowel movement since despite taking her lactulose. Patient states that she has been taking all her medications as directed. PMH/PSH/Meds/SH reviewed and agree with resident's documentation. Afebrile VSS Exam repeated by me and agree with resident's findings. Labs: WBC=2.3, H/H=7.5/27.7, Plt=72, Ji=292, K=4.4, Cd=287 , CO2=23, BUN/Cr=21/1.41, Ichi=600, Cwvisew=590. A/P: 1) Hepatic encephalopathy - Admit to medical. Increase lactulose dose. 2) DM- continue home meds. 3) Anemia- will transfuse 1 u PRBCs as per GI recommendation.
[2019-09-19 17:15] LABS: Bacteria/HPF 3+ HPF (None Seen); Bilirubin Negative (Negative); Blood, Urine 2+ (Negative); Clarity Clear (Clear); Glucose, Urine (Dipstick) Normal (Negative); Leukocyte 250 Leu/uL (Negative); Nitrite Negative (Negative); Protein, Urine (Dipstick) Negative (Neg-Trace); RBC/HPF 0-3 HPF (0-3); Squamous Epithelial 0-3 HPF (0-3); Urobilinogen Normal mg/dL (Less than 2)
[2019-09-19 18:36] VITALS: BMI 29.0
[2019-09-19] MEDS ORDERED: Ondansetron ODT 4 MG TAB PO PRN (18:44)
[2019-09-19] MEDS ORDERED: PROVENTIL INHALER 6.7 G (200 INHALATIONS) INH PRN (18:44)
[2019-09-19] MEDS ORDERED: Calcium Carbonate 500 MG ChewTAB PO PRN (18:44)
[2019-09-19] MEDS ORDERED: hydrOXYzine 25 MG TAB PO SCH (19:00)
[2019-09-19] MEDS ORDERED: Midodrine HCl 5 MG TAB PO SCH (20:30)
[2019-09-19] MEDS: Furosemide 40 MG TAB PO SCH (21:01)
[2019-09-19] MEDS: Loratadine 10 MG TAB PO SCH (21:01)
[2019-09-19] MEDS: busPIRone HCl 10 MG TAB PO SCH (21:01)
[2019-09-19] MEDS: Nicotine 14 MG PATCH TD SCH (21:03)
[2019-09-19] MEDS: Rifaximin 550 MG TAB PO SCH (21:04)
[2019-09-19] MEDS: Spironolactone 100 MG TAB PO SCH (21:04)
[2019-09-19 22:43] LABS: Anisocytosis SLIGHT = 6-15 cells (100X) (0-5/hpf); Band 2 % (5-11); Eosinophils 10 % (0-10); Hemoglobin 8.3 g/dL (12.0-16.0); Lymphocytes 11 % (21-51); MDiff Complete? YES; Mean Corpuscular HGB CONC 33.7 g/dL (32.0-36.0); Mean Corpuscular Hemoglobin 32.1 pg (27.0-31.0); Mean Corpuscular Volume 95.3 fL (78.0-98.0); Mean Platelet Volume 7.8 fL (7.4-10.4); Monocytes 17 % (0-10); Neutrophil 58 % (42-75); Ovalocytes SLIGHT = 2-5 cells (100X) (0-1/hpf); Platelet Count 83 thou/uL (130-400); Platelet Morphology Comment Appears Decreased; RBC Distribution Width 15.1 % (11.5-14.5); Reactive Lymphocytes 1 % (0-10); Red Blood Cell (RBC) Count 2.59 mill/uL (4.20-5.40); White Blood Cell (WBC) Count 3.1 thou/uL (4.8-10.8)
[2019-09-20] MEDS: hydrOXYzine 25 MG TAB PO SCH ×5 (00:56→23:41)
[2019-09-20 04:24] LABS: ALT (SGPT) 13 U/L (8-55); AST (SGOT) 26 U/L (5-34); Albumin 3.1 g/dL (3.5-5.0); Alkaline Phosphatase 82 U/L (40-110); Anion Gap 10 mmol/L (10-20); BUN (Urea Nitrogen) 22 mg/dL (9.8-20.1); Bilirubin, Total 1.7 mg/dL (0.2-1.2); Calc. Creatinine Clearance 59 mL/min (70-130); Calcium 8.7 mg/dL (7.8-10.44); Carbon Dioxide 22 mmol/L (22-29); Chloride 110 mmol/L (98-107); Estimated GFR-MDRD 41; Globulin 2.4 g/dL (2.4-3.5); Glucose 190 mg/dL (70-105); Potassium 4.1 mmol/L (3.5-5.1); Protein, Total 5.5 g/dL (6.0-8.3); Sodium 138 mmol/L (136-145)
[2019-09-20 04:41] LABS: Anisocytosis SLIGHT = 6-15 cells (100X) (0-5/hpf); Band 2 % (5-11); Differential Comment Immature Cell(s); Eosinophils 10 % (0-10); Hemoglobin 7.5 g/dL (12.0-16.0); Lymphocytes 19 % (21-51); MDiff Complete? YES; Mean Corpuscular HGB CONC 32.5 g/dL (32.0-36.0); Mean Corpuscular Hemoglobin 30.2 pg (27.0-31.0); Mean Platelet Volume 8.4 fL (7.4-10.4); Monocytes 12 % (0-10); Neutrophil 50 % (42-75); Ovalocytes SLIGHT = 2-5 cells (100X) (0-1/hpf); Platelet Count 87 thou/uL (130-400); Platelet Morphology Comment Appears Decreased; Reactive Lymphocytes 5 % (0-10); Red Blood Cell (RBC) Count 2.48 mill/uL (4.20-5.40); Reflex for Review?? YES; Tear Drops SLIGHT = 2-5 cells (100X) (0-1/hpf); White Blood Cell (WBC) Count 3.1 thou/uL (4.8-10.8)
--- NOTE | 2019-09-20 06:17 | PDOC.FM ---
- Subjective Subjective: Feeling better this morning. Notes 2-3 BM overnight. Improvement in abdominal pain. Denies any lightheadedness or dizziness. - Objective Vital Signs & Weight: Vital Signs (12 hours) Temp Pulse Resp BP Pulse Ox 09/20/19 04:00 97.9 F 77 18 106/66 97 09/20/19 00:00 98.1 F 85 16 113/68 98 09/19/19 20:00 100 09/19/19 19:34 98.0 F 98 18 106/72 100 09/19/19 18:23 98.2 F 96 16 100/62 97 Weight Weight 76.657 kg I&O: 09/18/19 09/19/19 09/20/19 06:59 06:59 06:59 Intake Total 720 Balance 720 Result Diagrams: 09/20/19 03:43 09/20/19 03:43 Phys Exam - Physical Examination Constitutional: NAD Mild scleral icterus, pale conjunctiva Neck: full ROM Respiratory: clear to auscultation bilateral Cardiovascular: RRR, no significant murmur Gastrointestinal: soft Mildly diffusely tender abdomen Musculoskeletal: no edema, pulses present Neurological: non-focal, normal sensation, moves all 4 limbs Psychiatric: normal affect, A&O x 3 Skin: no rash Deviation from normal: Mildly pale Dx/Plan (1) Anemia Code(s): D64.9 - ANEMIA, UNSPECIFIED Status: Acute Qualifiers: Anemia type: unspecified type Qualified Code(s): D64.9 - Anemia, unspecified (2) Hepatic encephalopathy Code(s): K72.90 - HEPATIC FAILURE, UNSPECIFIED WITHOUT COMA Status: Acute (3) CKD (chronic kidney disease) stage 3, GFR 30-59 ml/min Code(s): N18.3 - CHRONIC KIDNEY DISEASE, STAGE 3 (MODERATE) Status: Chronic (4) Cirrhosis of liver with ascites Code(s): K74.60 - UNSPECIFIED CIRRHOSIS OF LIVER Status: Chronic Qualifiers: Hepatic cirrhosis type: unspecified hepatic cirrhosis Qualified Code(s): K74.60 - Unspecified cirrhosis of liver; R18.8 - Other ascites (5) DM type 2 (diabetes mellitus, type 2) Status: Chronic Qualifiers: Diabetes mellitus longterm insulin use: without medical terminologist use Diabetes mellitus complication status: with kidney complications Diabetes mellitus complication detail: with chronic kidney disease Chronic kidney disease stage : stage 3 (moderate) Qualified Code(s): E11.22 - Type 2 diabetes mellitus with diabetic chronic kidney disease; N18.3 - Chronic kidney disease, stage 3 ( moderate) (6) HTN (hypertension) Code(s): I10 - ESSENTIAL (PRIMARY) HYPERTENSION Status: Chronic Qualifiers: Hypertension type: unspecified Qualified Code(s): I10 - Essential (primary ) hypertension (7) History of tobacco abuse Code(s): Z87.891 - PERSONAL HISTORY OF NICOTINE DEPENDENCE Status: Chronic - Plan Plan: Acute on chronic anemia - Hb 7.5 -> 8.3 -> 7.5, has not received transfusion, remains asymptomatic - no s/s of acute blood loss, initially hypotensive, but now VSS Hepatic Encephalopathy - A/O x2, mildly confused on exam. Child-Pederson of 7, Class B. On transplant list , [place] - Will cont lactulose 30g q1hr to titrate to 2-3 soft stools per day - pt intermittently refusing - only allowed a few doses last night and this morning, 1 documented BM currently - ammonia 103 ->106 - cont home aldactone, rifaximine Cirrhosis with ascities - MELD 19, 6.0% 3-mo mortality. See above - Known to Dr. Schmid - Cont home meds Cystitis - UA indicates mild cystitis - Hx of vanc resistant enterococcus infections H/o esophageal varices - cont home protonix, no s/s of acute bleed, VSS, will monitor CKD 3 - Cr 1.37, appears new baseline, receiving blood product, will monitor Chronic Thombocytopenia - Plt: 72, will monitor, hold anticoagulation for DVT PPX 2/2 thombocytopenia Hx of DMII - A1c in May 2019 4.6. No home insulin. Will monitor. Anxiety/depression - Cont buspar Code: Full Diet: Regular VTE: SCDs GI PPx: Protonix IVF: SL PCP: CARLY Jeff Dispo: Admit to medical for acute on chronic anemia and hepatic encephalopathy. Titrating lactulose and monitoring Hgb. Possible DC today vs tomorrow. Addendum - Attending - Attending Attestation Date/Time: 09/20/19 4046 I personally evaluated the patient and discussed the management with Dr. Rahman. I agree with the History, Examination, Assessment and Plan documented above with any addition or exceptions noted below. Patient mentation improved. Reports 2 BMs this morning. She is enjoying breakfast this morning. 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 Will once again discuss with patient and family potential placement to help with her meds and prevent recurrent hospitalization for the same illness. Repeat Ammonia this afternoon.
[2019-09-20] MEDS: Ferrous Sulfate 325 MG TAB PO SCH ×3 (08:18→16:05)
[2019-09-20] MEDS: Furosemide 40 MG TAB PO SCH ×2 (08:18→20:30)
[2019-09-20] MEDS: busPIRone HCl 10 MG TAB PO SCH ×2 (08:19→20:30)
[2019-09-20] MEDS: Folic Acid 1 MG TAB PO SCH (08:19)
[2019-09-20] MEDS: Midodrine HCl 5 MG TAB PO SCH ×3 (08:19→16:05)
[2019-09-20] MEDS: Rifaximin 550 MG TAB PO SCH ×2 (08:19→20:31)
[2019-09-20] MEDS: Fluticasone Propionate Nasal Spray 16 gm Bottle NASAL SCH (08:20)
[2019-09-20] MEDS: Cyanocobalamin (Vitamin B-12) 1,000 MCG TAB PO SCH (08:20)
[2019-09-20] MEDS: Spironolactone 100 MG TAB PO SCH ×2 (09:28→20:31)
[2019-09-20] MEDS: Magnesium Oxide 250 MG TAB PO SCH (09:28)
[2019-09-20] MEDS ORDERED: traMADol HCl 50 MG TAB PO SCH (15:00)
[2019-09-20] MEDS: Loratadine 10 MG TAB PO SCH (20:31)
[2019-09-20] MEDS: Nicotine 14 MG PATCH TD SCH (20:31)
[2019-09-21] MEDS ORDERED: Furosemide 40 MG TAB PO SCH (06:00)
[2019-09-21] MEDS: hydrOXYzine 25 MG TAB PO SCH ×2 (06:02→11:40)
[2019-09-21 06:19] LABS: ALT (SGPT) 13 U/L (8-55); AST (SGOT) 26 U/L (5-34); Albumin 3.1 g/dL (3.5-5.0); Alkaline Phosphatase 94 U/L (40-110); Anion Gap 13 mmol/L (10-20); BUN (Urea Nitrogen) 20 mg/dL (9.8-20.1); Bilirubin, Total 2.5 mg/dL (0.2-1.2); Calc. Creatinine Clearance 66 mL/min (70-130); Calcium 8.1 mg/dL (7.8-10.44); Carbon Dioxide 18 mmol/L (22-29); Chloride 103 mmol/L (98-107); Estimated GFR-MDRD 46; Globulin 2.4 g/dL (2.4-3.5); Glucose 331 mg/dL (70-105); Potassium 3.6 mmol/L (3.5-5.1); Protein, Total 5.5 g/dL (6.0-8.3); Sodium 130 mmol/L (136-145)
[2019-09-21 06:39] LABS: Anisocytosis SLIGHT = 6-15 cells (100X) (0-5/hpf); Band 17 % (5-11); Eosinophils 3 % (0-10); Hemoglobin 8.7 g/dL (12.0-16.0); Lymphocytes 12 % (21-51); MDiff Complete? YES; Mean Corpuscular HGB CONC 33.5 g/dL (32.0-36.0); Mean Corpuscular Hemoglobin 31.1 pg (27.0-31.0); Mean Platelet Volume 8.9 fL (7.4-10.4); Monocytes 8 % (0-10); Neutrophil 57 % (42-75); Platelet Count 79 thou/uL (130-400); Platelet Morphology Comment Appears Decreased; RBC Distribution Width 15.1 % (11.5-14.5); Red Blood Cell (RBC) Count 2.79 mill/uL (4.20-5.40); White Blood Cell (WBC) Count 3.6 thou/uL (4.8-10.8)
--- NOTE | 2019-09-21 06:40 | PDOC.FM ---
- Subjective Subjective: Pt states she is feeling much better this morning and is back to her baseline. She had several BM's yesterday. Tolerating PO well. No complications with transfusion yesterday. - Objective Vital Signs & Weight: Vital Signs (12 hours) Temp Pulse Resp BP BP Pulse Ox 09/21/19 03:10 97.6 F 97 18 99/62 100 09/20/19 19:42 98 F 100 17 118/75 100 Weight Admit Weight 76.657 kg Weight 76.657 kg I&O: 09/19/19 09/20/19 09/21/19 06:59 06:59 06:59 Intake Total 720 2970 Output Total 1800 Balance 720 1170 Result Diagrams: 09/21/19 05:34 09/21/19 05:34 Phys Exam - Physical Examination Constitutional: NAD HEENT: moist MMs, sclera anicteric Neck: full ROM Respiratory: no wheezing, clear to auscultation bilateral Cardiovascular: RRR, no significant murmur Gastrointestinal: soft, non-tender, no distention, positive bowel sounds Musculoskeletal: no edema, pulses present Neurological: non-focal, moves all 4 limbs Psychiatric: normal affect, A&O x 3 Skin: no rash, cap refill <2 seconds Dx/Plan (1) Anemia Code(s): D64.9 - ANEMIA, UNSPECIFIED Status: Acute Qualifiers: Anemia type: unspecified type Qualified Code(s): D64.9 - Anemia, unspecified (2) Hepatic encephalopathy Code(s): K72.90 - HEPATIC FAILURE, UNSPECIFIED WITHOUT COMA Status: Acute (3) CKD (chronic kidney disease) stage 3, GFR 30-59 ml/min Code(s): N18.3 - CHRONIC KIDNEY DISEASE, STAGE 3 (MODERATE) Status: Chronic (4) Cirrhosis of liver with ascites Code(s): K74.60 - UNSPECIFIED CIRRHOSIS OF LIVER Status: Chronic Qualifiers: Hepatic cirrhosis type: unspecified hepatic cirrhosis Qualified Code(s): K74.60 - Unspecified cirrhosis of liver; R18.8 - Other ascites (5) DM type 2 (diabetes mellitus, type 2) Status: Chronic Qualifiers: Diabetes mellitus fpc insulin use: without fpc use Diabetes mellitus complication status: with kidney complications Diabetes mellitus complication detail: with chronic kidney disease Chronic kidney disease stage : stage 3 (moderate) Qualified Code(s): E11.22 - Type 2 diabetes mellitus with diabetic chronic kidney disease; N18.3 - Chronic kidney disease, stage 3 ( moderate) (6) HTN (hypertension) Code(s): I10 - ESSENTIAL (PRIMARY) HYPERTENSION Status: Chronic Qualifiers: Hypertension type: unspecified Qualified Code(s): I10 - Essential (primary ) hypertension (7) History of tobacco abuse Code(s): Z87.891 - PERSONAL HISTORY OF NICOTINE DEPENDENCE Status: Chronic - Plan Plan: Acute on chronic anemia - transfused 1 u PRBC yesterday, remains asymptomatic today - Hgb today: 8.7 Hepatic Encephalopathy - Resolved - A/O x3 - Ammonia decreased to 56 yesterday - Lactulose QID with titration to 4BM per day - cont home aldactone, rifaximine - Discussed placement to SNF or senior living for assistance with her medication compliance and patient adamantly refused. States that she has HH and that assists with this. Cirrhosis with ascities - MELD 19, 6.0% 3-mo mortality. See above - Known to Dr. Schmid - Cont home meds Cystitis - UA indicates mild cystitis vs colonization - Hx of vanc resistant enterococcus infections - Again was cultured - Pt is asx currently, will monitor H/o esophageal varices - cont home protonix, no s/s of acute bleed, VSS, will monitor CKD 3 - Cr 1.22, appears new baseline Chronic Thombocytopenia - Plt: 72, will monitor, hold anticoagulation for DVT PPX 2/2 thombocytopenia Hx of DMII - A1c in May 2019 4.6. No home insulin. Will monitor. Anxiety/depression - Cont buspar Code: Full Diet: Regular VTE: SCDs GI PPx: Protonix IVF: SL PCP: CARLY Jeff Dispo: Admit to medical. Encephalopathy resolved. Likely DC later today. Addendum - Attending - Attending Attestation Date/Time: 09/21/19 7824 I personally evaluated the patient and discussed the management with Dr. Rahman. I agree with the History, Examination, Assessment and Plan documented above with any addition or exceptions noted below. Patient doing well. Back to baseline mentation. H/H stable. Her ammonia is decreased. She has been educated once again on the need for med compliance with Lactulose. She will follow up with her specialists as needed.
[2019-09-21] MEDS: Spironolactone 100 MG TAB PO SCH (09:16)
[2019-09-21] MEDS: Rifaximin 550 MG TAB PO SCH (09:18)
[2019-09-21] MEDS: Folic Acid 1 MG TAB PO SCH (09:18)
[2019-09-21] MEDS: busPIRone HCl 10 MG TAB PO SCH (09:18)
[2019-09-21] MEDS: Midodrine HCl 5 MG TAB PO SCH ×2 (09:19→12:20)
[2019-09-21] MEDS: Ferrous Sulfate 325 MG TAB PO SCH ×2 (09:19→11:40)
[2019-09-21] MEDS: Magnesium Oxide 250 MG TAB PO SCH (10:38)
[2019-09-21] MEDS: Fluticasone Propionate Nasal Spray 16 gm Bottle NASAL SCH (10:39)
[2019-09-21] MEDS: Cyanocobalamin (Vitamin B-12) 1,000 MCG TAB PO SCH (10:39)
[2019-09-21 11:16] VITALS: BP 95/62; TEMP 97.8
--- NOTE | 2019-09-21 23:15 | DIS ---
DATE OF ADMISSION: 09/19/2019 DATE OF DISCHARGE: 09/21/2019 ADMITTING ATTENDING: Whitney Campuzano MD DISCHARGE ATTENDING: Javy Toussaint MD RESIDENT: Elias Rahman DO CONSULTS: None. PROCEDURES PERFORMED: None. IMAGING: Chest x-ray. Findings; no evidence of acute cardiopulmonary disease. CT brain without contrast. Findings; no evidence of acute intracranial abnormality. PRIMARY DIAGNOSES: Acute metabolic encephalopathy secondary to liver cirrhosis, medication nonadherence, anemia. SECONDARY DIAGNOSES: Chronic kidney disease 3, hypertension, gastroesophageal reflux disease, depression, type 2 diabetes. DISCHARGE MEDICATIONS: 1. Aldactone 100 mg b.i.d. 2. ProAir two puffs q.6 hours p.r.n. 3. Folvite 1 mg daily. 4. Flexeril 10 mg q.8 hours p.r.n. 5. Cyanocobalamin 2000 mcg daily. 6. Tramadol 50 mg p.o. q.i.d. 7. Melatonin 10 mg at bedtime. 8. Ferrous sulfate 325 mg t.i.d. 9. BuSpar 10 mg b.i.d. 10. Xifaxan 550 mg b.i.d. 11. Lasix 40 mg b.i.d. 12. Protonix 40 mg b.i.d. 13. Kristalose 30 g p.o. b.i.d., increase as directed. 14. Hydroxyzine 25 mg q.6 hours. 15. Loratadine 10 mg at bedtime. 16. Midodrine 5 mg t.i.d. 17. Flonase 2 sprays each nares daily. 18. Magnesium oxide 500 mg daily. HISTORY OF PRESENT ILLNESS AND HOSPITAL COURSE: The patient is a 53-year-old female with numerous recent admissions with past medical history significant for cirrhosis, anemia, type 2 diabetes and hypertension, who presented to the ED with complaint of altered mental status. The patient was receiving paracentesis this morning as she gets performed weekly for her ascites secondary to her liver cirrhosis. While there, they noted that the patient was rambling and not at her baseline mentation. The patient was able to receive her procedure, where they removed 4 L of clear fluid. ER workup was significant for findings of pancytopenia, chronic hyponatremia, creatinine of 1.41 near patient's baseline, and ammonia of 103. It is known from previous admissions that when patient's ammonia elevates this level, she tends to get encephalopathic. Chest x-ray and CT of head were negative for any acute findings. The patient was subsequently admitted to the hospital for medical floor for continued mental status monitoring and titration of patient's lactulose. Over the next 3 days, the patient received increased dosing of her lactulose with subsequent response and her bowel movements. Once the patient was moving her bowels consistently, her lactulose was then spaced out to q.i.d. dosing. As the patient increased number of bowel movements, her mental status improved to the point that she was at her baseline on the day of discharge. The patient was also tolerating p.o. well, ambulating without difficulty, and cognitively capable of making her own decisions. Prior to discharge, we discussed the patient's compliance with her medications and approach the subjective of the patient pursuing alf placement, where they can assist in her medication administration. The patient adamantly refused this suggestion and stated that she with the help of her and home health, have no problems with keeping her medications straight. DISCHARGE INSTRUCTIONS: 1. Location: Home. 2. Diet: Renal and carb conscious. 3. Activity: As tolerated. 4. Followup: PCP, Dr. Garcia, within 7 days; Dr. Schmid, GI, as previously directed; [place] [facility] as previously directed. Job ID: [id number]
--- NOTE | 2019-09-22 05:46 | PQF ---
SAP Discharging Machine Operator Crystal Reports Winform NemoPARRISHGLORIAKOKIFOSTER HAIRSTON MD [id number] [facility] [id number] CLINICAL DOCUMENTATION CLARIFICATION FORM: POST DISCHARGE Addendum to original discharge summary date: ____ Late entry note date: __ DATE: 09/22/2019 ATTN:FOSTER AJ MD Please exercise your independent, professional judgment in responding to the clarification form. Clinical indicators are provided on the bottom of this form for your review Please check appropriate box(s): Conflicting documentation was noted in the Medical Record, please clarify if patient is being treated/monitored for: [ ] Hepatic encephalopathy [ ] Metabolic encephalopathy [ ] Hepatic encephalopathy and Metabolic encephalopathy [ ] Other diagnosis [ ] Unable to determine In addition, please specify: Present on Admission (POA): [ ] Yes [ ] No [ ] Unable to determine For continuity of documentation, please document condition throughout progress notes and discharge summary. Thank You. CLINICAL INDICATORS - SIGNS / SYMPTOMS/ LABS AMS is only due to elevated ammonia level - Documented in H&P on 09/19 by Reina Paula MD Patient was admitted with Hepatic encephalopathy and anemia- Documented in H&P on 09/19 by Reina Paula MD Acute Metabolic encephalopathy 2/2 liver cirrhosis - Documented in DS on 09/21 by Josiah Gonzalez Ammonia level elevated 103 on POA - Documented in H&P on 09/19 by Reina Paula MD Patient was reportedly noted to be altered and confused during Paracentesis - Documented in H&P on 09/19 by Reina Paula MD Acute Metabolic encephalopathy 2/2 hyperammonemia - Documented in H&P on 09/19 by Reina Paula MD RISK FACTORS End stage Cirrhosis with ascites 2/2 Etoh Abuse - Documented in H&P on 09/19 by Reina Paula MD Anemia CKD 3 and DM 2 TREATMENT Will continue Lactulose 30g q1hr to titrate to 2-3 soft stools per day - Documented in H&P on 09/19 by Reina Paula MD Continue home Aldactone, Rifaximin - Documented in H&P on 09/19 by Reina Paula MD monitor mentation - Documented in H&P on 09/19 by Reina Paula MD Blood transfusion SAP Discharging Machine Operator Crystal Reports Winform Viewer (This form is maintained as a part of the permanent medical record) 2014 [employer]. All Rights Reserved [email or web address] [not provided] MTDD
== END 2019-09-21 12:34 | disposition home health service (06) | DRG 811 ==
LOC: ERS 12:37 → T4-B 18:27
PROVIDERS: ADMIT Family Medicine; ATTEND Family Medicine
PROC: 30233N1 Transfusion of Nonautologous Red Blood Cells into Peripheral Vein, Percutaneous Approach (ICD-10-PCS; principal; 2019-09-19)
DX: D64.9 Anemia, unspecified (principal); K72.00 Acute and subacute hepatic failure without coma; G93.41 Metabolic encephalopathy; E87.1 Hypo-osmolality and hyponatremia; R18.8 Other ascites; D61.818 Other pancytopenia; I10 Essential (primary) hypertension; Z88.0 Allergy status to penicillin; Z88.2 Allergy status to sulfonamides; Z88.8 Allergy status to other drugs, medicaments and biological substances; Z88.5 Allergy status to narcotic agent; F41.9 Anxiety disorder, unspecified; K21.9 Gastro-esophageal reflux disease without esophagitis; F17.210 Nicotine dependence, cigarettes, uncomplicated; N18.3 Chronic kidney disease, stage 3 (moderate); K74.60 Unspecified cirrhosis of liver; E11.22 Type 2 diabetes mellitus with diabetic chronic kidney disease; D69.6 Thrombocytopenia, unspecified; Z91.14 Patient's other noncompliance with medication regimen
CPT/HCPCS: 36415; 36430; 49083; 70450; 71045; 80053; 81003; 81015; 82140; 84484; 85025; 85060; 85610; 85730; 86850; 86900; 86901; 87077; 87086; 87186; 89051; 93005; 96374; 99211; G0463; J1642; J2001; P9016; P9047

== ENCOUNTER 2019-09-26 06:01 | Inpatient (IN) | payer OTHER ==
[2019-09-26 07:06] LABS: #Eosinphils 0.1 thou/uL (0.0-0.7); #Lymphocytes 0.4 thou/uL (1.20-3.40); #Monocytes 1.3 thou/uL (0.11-0.59); #Neutrophils 12.5 thou/uL (1.40-6.50); %Basophils 0.2 % (0.0-1.0); %Eosinophils 0.5 % (0.0-10.0); %Neutrophils 87.4 % (42.0-75.0); Hemoglobin 9.8 g/dL (12.0-16.0); Mean Corpuscular HGB CONC 32.9 g/dL (32.0-36.0); Mean Corpuscular Hemoglobin 31.4 pg (27.0-31.0); Mean Corpuscular Volume 95.2 fL (78.0-98.0); Mean Platelet Volume 8.2 fL (7.4-10.4); Platelet Count 113 thou/uL (130-400); RBC Distribution Width 14.6 % (11.5-14.5); Red Blood Cell (RBC) Count 3.11 mill/uL (4.20-5.40); White Blood Cell (WBC) Count 14.3 thou/uL (4.8-10.8)
[2019-09-26 07:19] LABS: Acetaminophen Less than 6.0 mcg/mL (10.0-30.0); Alcohol Less than 10 mg/dL (Less than 10); Salicylate Less than 8.0 mg/dL (15.0-30.0)
[2019-09-26 07:20] LABS: ALT (SGPT) 19 U/L (8-55); AST (SGOT) 30 U/L (5-34); Albumin 3.4 g/dL (3.5-5.0); Alkaline Phosphatase 117 U/L (40-110); Anion Gap 16 mmol/L (10-20); BUN (Urea Nitrogen) 28 mg/dL (9.8-20.1); Bilirubin, Total 1.8 mg/dL (0.2-1.2); Calc. Creatinine Clearance 0 mL/min (70-130); Calcium 8.9 mg/dL (7.8-10.44); Carbon Dioxide 20 mmol/L (22-29); Chloride 102 mmol/L (98-107); Estimated GFR-MDRD 39; Glucose 237 mg/dL (70-105); Potassium 4.5 mmol/L (3.5-5.1); Protein, Total 6.4 g/dL (6.0-8.3); Sodium 133 mmol/L (136-145)
[2019-09-26 07:32] LABS: Bilirubin Negative (Negative); Blood, Urine Negative (Negative); Clarity Clear (Clear); Glucose, Urine (Dipstick) Normal (Negative); Leukocyte Negative Leu/uL (Negative); Nitrite Negative (Negative); Protein, Urine (Dipstick) Negative (Neg-Trace); Urobilinogen Normal mg/dL (Less than 2)
[2019-09-26 07:46] LABS: Amphetamine Not Detected (NotDetected); Barbiturates Screen Not Detected (NotDetected); Benzodiazepine Screen Not Detected (NotDetected); Cocaine Metabolite Screen Not Detected (NotDetected); Medtox Control Line Valid? VALID (VALID); Medtox Reader # READER 4; Methadone Not Detected (NotDetected); Methamphetamine Not Detected (NotDetected); Opiate Screen Not Detected (NotDetected); Oxycodone Screen Not Detected (NotDetected); Phencyclidine (PCP) Not Detected (NotDetected); THC/Cannabinoid Screen Not Detected (NotDetected); Tricyclic Screen Not Detected (NotDetected)
[2019-09-26 07:46] LABS: Band 13 % (5-11); Lymphocytes 5 % (21-51); MDiff Complete? YES; Monocytes 8 % (0-10); Neutrophil 74 % (42-75); Platelet Morphology Comment Appears Decreased; Polychromasia SLIGHT = 2-3 cells (100X) (0-2/hpf)
[2019-09-26] MEDS ORDERED: cefTRIAXone\\ROCEPHIN 2 GM VIAL ONE (08:03)
[2019-09-26] MEDS ORDERED: Azithromycin 500 MG VIAL ONE (08:03)
--- NOTE | 2019-09-26 08:25 | PDOC.FPRHP ---
- History of Present Illness Chief Complaint: found down in field History of Present Illness: Jesse Gonzalez is a 53 year old F with a PMH of cirrhosis, spinal stenosis, GERD, Hx of Hep B who presented to the ED after being found down in field. EMS found patient's temperature to be 92.0 and she was altered. She states that she went for a walk last night and remembers falling down and scraping her knee , but does not recall where she was, just that she "was going for a walk". Denies any vision changes, chest pain, dyspnea, palpitations, headaches, n/v. She has a history of hepatic encephalopathy and was recently discharged from [facility] on 09/21/2019. She states that she has been taking her lactulose. ED Course: In the ED, EKG showed sinus tachycardia. She was given azithromycin and rocephin and 2 L NS - Allergies/Adverse Reactions Allergies Allergy/AdvReac Type Severity Reaction Status Date / Time acetaminophen [From Tylenol] Allergy Verified 09/25/19 14:28 aspirin Allergy Verified 09/25/19 14:28 butorphanol [From Stadol] Allergy Verified 09/25/19 14:28 codeine Allergy Verified 09/25/19 14:28 morphine Allergy Verified 09/25/19 14:28 Penicillins Allergy vomiting Verified 09/25/19 14:28 silver Allergy Verified 09/25/19 14:28 [From Tegaderm AG Mesh] Sulfa (Sulfonamide Allergy Verified 09/25/19 14:28 Antibiotics) persimmon Allergy Uncoded 09/18/19 14:09 - Home Medications Medication Instructions Recorded Confirmed Type Spironolactone [Aldactone] 100 mg PO BID 01/10/19 09/26/19 History Albuterol Sulfate [Proair HFA] 2 puff INH Q6HR PRN 05/30/19 09/26/19 History Cyanocobalamin (Vitamin B-12) 2,000 mcg PO DAILY 05/30/19 09/26/19 History [Vitamin B-12] Cyclobenzaprine [Flexeril] 10 mg PO Q8H PRN 05/30/19 09/26/19 History Ferrous Sulfate 325 mg PO TID 05/30/19 09/26/19 History Folic Acid [Folvite] 1 mg PO DAILY 05/30/19 09/26/19 History Melatonin 10 mg PO HS 05/30/19 09/26/19 History Rifaximin [Xifaxan] 550 mg PO BID 05/30/19 09/26/19 History busPIRone HCl [Buspar] 10 mg PO BID 05/30/19 09/26/19 History traMADol HCl [Tramadol HCl] 50 mg PO QID PRN 05/30/19 09/26/19 History Furosemide [Lasix] 40 mg PO BID 06/23/19 09/26/19 History Pantoprazole [Protonix] 40 mg PO BID 06/23/19 09/26/19 History Lactulose [Kristalose] 30 gm PO BID #14 packet 06/26/19 09/26/19 Rx hydrOXYzine HCl [Hydroxyzine HCl] 25 mg PO Q6HR 07/17/19 09/26/19 History Loratadine 10 mg PO HS 07/25/19 09/26/19 History Midodrine HCl [ProAmatine] 5 mg PO TID-WM tab 08/26/19 09/26/19 Rx Fluticasone Propionate [Flonase 2 spray EA NARE DAILY 09/05/19 09/26/19 History Nasal [place]] Magnesium Oxide 500 mg PO DAILY 09/19/19 09/26/19 History - History PMHx: Anxiety, DMII, GERD, Cirrhosis, Ascites, HTN PSHx: TIPS 06/09/2018 with revisions in December 2018 and February 2019. Esophageal varices repairs with unknown dates. Tonsilectomy, Cholecystectomy, EGD's, Colonoscopy, ESWT for Kidney stones FHx: Grandma- Heart and colon problems, Mom- heart problems Social: smokes occasionally smokes a few cigarettes a day. Smoked 1 ppd for 14 years. Denies any illicit drug use. H/o EtOH use but does not disclose time line or amount. - Review of Systems General: denies: fever/chills, weight/appetite/sleep changes, night sweats Eyes: denies: eye pain, vision changes ENT: denies: nasal congestion, rhinorrhea Respiratory: denies: cough, congestion Cardiovascular: denies: chest pain, palpitation, edema Gastrointestinal: reports: abdominal pain. denies: nausea, vomiting, diarrhea, constipation Genitourinary: denies: incontinence, dysuria Skin: reports: rashes (below pannus). denies: lesions Musculoskeletal: reports: pain. denies: tenderness Neurological: denies: numbness, syncope, seizure - Vital signs BP: 114/66, Pulse: 112, Resp: 21 (Non-Labored), Temp: 97.9 (Oral), Pain: 0, O2 sat: 100 on (Room Air), Time: 09/26/2019 09:15 - Physical Exam Constitutional: NAD -Constitutional: Alert and oriented to person and place, not time. HEENT: normocephalic and atraumatic, PERRLA, EOMI, conjunctiva clear, grossly normal vision, grossly normal hearing Neck: supple, trachea midline Chest: no-tender to palpation Heart: RRR, normal S1/S2, no murmurs/rubs/gallops, no edema Lungs: CTAB, no respiratory distress, good air movement Abdomen: soft, non-tender, bowel sounds present, no masses/distention -Abdomen: fungal infection below pannus Musculoskeletal: normal structure, normal tone Neurological: no focal deficit, CN II-XII intact -Skin: fungal infection below pannus Heme/Lymphatic: no unusual bruising or bleeding -Psychiatric: Altered mental status FMR H&P: Results - Labs Result Diagrams: 09/26/19 06:52 09/26/19 06:52 Lab results: WBC 14.3 thou/uL (4.8-10.8) H 09/26/19 06:52 Hgb 9.8 g/dL (12.0-16.0) L 09/26/19 06:52 Hct 29.6 % (36.0-47.0) L 09/26/19 06:52 MCV 95.2 fL (78.0-98.0) 09/26/19 06:52 Plt Count 113 thou/uL (130-400) L 09/26/19 06:52 Neutrophils % 87.4 % (42.0-75.0) H 09/26/19 06:52 Band Neuts % (Manual) 13 % (5-11) H 09/26/19 06:52 Sodium 133 mmol/L (136-145) L 09/26/19 06:52 Potassium 4.5 mmol/L (3.5-5.1) 09/26/19 06:52 Chloride 102 mmol/L (98-107) 09/26/19 06:52 Carbon Dioxide 20 mmol/L (22-29) L 09/26/19 06:52 BUN 28 mg/dL (9.8-20.1) H 09/26/19 06:52 Creatinine 1.43 mg/dL (0.6-1.1) H 09/26/19 06:52 Glucose 237 mg/dL (70-105) H 09/26/19 06:52 Lactic Acid 4.5 mmol/L (0.5-2.2) H* 09/26/19 06:52 Calcium 8.9 mg/dL (7.8-10.44) 09/26/19 06:52 Total Bilirubin 1.8 mg/dL (0.2-1.2) H 09/26/19 06:52 AST 30 U/L (5-34) 09/26/19 06:52 ALT 19 U/L (8-55) 09/26/19 06:52 Alkaline Phosphatase 117 U/L (40-110) H 09/26/19 06:52 Ammonia 177 umol/L (18-72) H 09/26/19 06:51 Serum Total Protein 6.4 g/dL (6.0-8.3) 09/26/19 06:52 Albumin 3.4 g/dL (3.5-5.0) L 09/26/19 06:52 Urine Ketones Negative mg/dL (Negative) 09/26/19 07:00 Urine Blood Negative (Negative) 09/26/19 07:00 Urine Nitrite Negative (Negative) 09/26/19 07:00 Ur Leukocyte Esterase Negative Salbador/uL (Negative) 09/26/19 07:00 - EKG Interpretation EKG: Sinus Tach - Radiology Interpretation CT scan - head Status: report reviewed by me (IMPRESSION: No acute cervical spine abnormality. CT Head: No acute intracranial abnormality.) FMR H&P: A/P - Problem List (1) Anemia Current Visit: No Status: Acute Code(s): D64.9 - ANEMIA, UNSPECIFIED Qualifiers: Anemia type: unspecified type Qualified Code(s): D64.9 - Anemia, unspecified (2) Anxiety Current Visit: No Status: Acute Priority: Medium Code(s): F41.9 - ANXIETY DISORDER, UNSPECIFIED (3) Hepatic encephalopathy Current Visit: No Status: Acute Priority: High Code(s): K72.90 - HEPATIC FAILURE, UNSPECIFIED WITHOUT COMA (4) CKD (chronic kidney disease) stage 3, GFR 30-59 ml/min Current Visit: No Status: Chronic Priority: Medium Code(s): N18.3 - CHRONIC KIDNEY DISEASE, STAGE 3 (MODERATE) (5) Cirrhosis of liver with ascites Current Visit: No Status: Chronic Priority: High Code(s): K74.60 - UNSPECIFIED CIRRHOSIS OF LIVER Qualifiers: Hepatic cirrhosis type: unspecified hepatic cirrhosis Qualified Code(s): K74.60 - Unspecified cirrhosis of liver; R18.8 - Other ascites Comment: SPENCER with recurrent ascites, plan for US guided paracentesis in am, GI consult pending. (6) DM type 2 (diabetes mellitus, type 2) Current Visit: No Status: Chronic Qualifiers: Diabetes mellitus intermediate designer insulin use: without senior care use Diabetes mellitus complication status: with kidney complications Diabetes mellitus complication detail: with chronic kidney disease Chronic kidney disease stage : stage 3 (moderate) Qualified Code(s): E11.22 - Type 2 diabetes mellitus with diabetic chronic kidney disease; N18.3 - Chronic kidney disease, stage 3 ( moderate) (7) Esophageal varices Current Visit: No Status: Chronic Code(s): I85.00 - ESOPHAGEAL VARICES WITHOUT BLEEDING - Plan Mild to moderate hypothermia - Initial temp in EMS reported 92F, orally. - Altered mental status, found down outdoors overnight. - Will rewarm with bare-hugger and monitor VSS closely. Hepatic Encephalopathy - A/Ox1 on initial presentation. [facility] - Will initiate lactulose 30g qID to titrate to 2-3 soft stools per day - cont home aldactone, rifaximin - Monitor mentation - AMS is likely multifactorial Leukocytosis, elevated lactic acid - Elevated WBC and lactic acid. - Will trend lactic acid s/p IV Fluids - Will cover empirically with Rocephin IV for SBP and monitor for improvement Fungal skin infection - Will give clotrimazole cream while inpatient Cirrhosis with ascities - MELD 20, 19.6% 3-mo mortality. - Is on transplant list - Cont home meds H/o esophageal varices - cont home protonix, no s/s of acute bleed, VSS, will monitor CKD 3 - Cr 1.43, appears new baseline, receiving blood product, will monitor Chronic Thombocytopenia - Plt: 113, will monitor, hold anticoagulation for DVT PPX 2/2 risk of falls and history of chronic liver disease, thrombocytopenia. Hx of DMII - A1c in May 2019 4.6. No home insulin. Will monitor. - Cover with SSI Anxiety/depression - Cont buspar Disposition/LOS: Code: Full Diet: Regular VTE: SCDs GI PPx: Protonix IVF: SL PCP: CARLY Jeff Dispo: Stable, inpatient for hypothermia and hepatic encephalopathy. FMR H&P: Upper Level - Plan Date/Time: 09/26/19824 IGo MD, have evaluated this patient and agree with findings/plan as outlined by help desk intern resident. Pertinent changes/additions are listed here. Jesse Gonzalez is a 53 year old F with a PMH of Cirrhosis, Spinal Stenosis, GERD, Hx of Hep B who was brought to the ED due to being found down by police in field for unknown amount of time. Fall was unwitnessed. When EMS found patient, T was 92.0 and she was altered. Pt does not recall the fall. States that she went walking last night because she was bored. Denies any recollection of fever, chills, vision changes, headaches, chest pain, dyspnea, palpitations, n/v, abdominal pain, dysuria, drug use, changes in medications. She was recently discharged from [facility] on 09/21/2019 for an admission for hepatic encephalopathy. In the ED, she had an EKG that showed Sinus Tachycardia , no ST changes. UDS was negative, WBC 14.3, Hg 9.8, Cr 1.43, Lactic acid 4.5, Ammonia 177, TSH 3.65, UA negative. She was given Azithromycin, Rocephin, Lactulose and [address] brain and CT cervical spine were negative. Her temp improved to 96.0 with bear hugger in ED. On exam, she is a relatively poor historian, trails off when giving details on history, MMM, EOMI, PERRLA, RRR no murmurs, lungs CTAB, abd soft NT/ND, no LE edema. Abrasions on right LE, no cellulitis. Admitting patient to inpatient medical for hepatic encephalopathy. Will titrate lactulose to 2-3 loose BMs a day. Will trend ammonia. Continue mIVFs. Blood and urine cultures pending. Trending cardiac enzymes. Has had multiple admissions due to hepatic encephalopathy due to medication noncompliance. Likely the cause today. Has follow up planned with liver transplant specialist in [place] in future. Continue to monitor symptoms. Continue empiric antibiotics to cover for SBP although it is much more likely that wbc count and temp and lactic acid due to being down/exposed for unknown amount of time. Anticipate hospital stay >48 hours. Please see help desk intern note above, which I have reviewed and agree with. Addendum - Attending - Attending Attestation Date/Time: 09/26/19 1702 I personally evaluated the patient and discussed the management with Dr. Lea. I agree with the History, Examination, Assessment and Plan documented above with any addition or exceptions noted below. the patient is being admitted for altered mental status after being found down in the field. She has an abrasion on the right knee and is very confused. She is well known to our service with liver disease. Her ammonia level is high, will restart lactulose. Pt has an elevated lactic acid and a leukocytosis. Will continue rocephin for sbp prophylaxis and f/u on cultures but not other obvious sources of infection at this time. Pt was hypothermic on arrival and will continue bear hugger until temperature normalizes.
[2019-09-26] MEDS ORDERED: Dextrose 50% Abboject 50 ML SYRINGE SLOW IVP PRN (08:41)
[2019-09-26] MEDS ORDERED: Dextrose 5% in Water 1,000 ML IV PRN (08:41)
--- NOTE | 2019-09-26 08:42 | CT ---
PRELIMINARY REPORT/[facility]/EMERGENCY AFTER HOURS PROCEDURE: EXAM: CT Head Without Intravenous Contrast. CLINICAL HISTORY: 53 yo F presents to ED via EMS with c/o AMS. EMS reports pt was found by police laying down outside i n an open field, unknown down time. EMS reports pt's temp in route was measured at 92. EMS reports pt has abrasion to right knee. TECHNIQUE: Axial computed tomography images of the head/brain without intravenous contrast. COMPARISON: None provided. FINDINGS: BRAIN: No acute intraparenchymal hemorrhage. No mass lesion. No CT evidence for acute territorial inf arct. No midline shift or extra-axial collection. VENTRICLES: No hydrocephalus. ORBITS: The orbits are unremarkable. SINUSES AND MASTOIDS: The paranasal sinuses and mastoid air cells are clear. SOFT TISSUES: No significant facial or scalp soft tissue swelling evident. No radiopaque foreign body is seen. BONES: No acute skull fracture. IMPRESSION: No acute intracranial abnormality. ELECTRONICALLY SIGNED BY: Dayana Valdovinos MD Sep 26, 2019 6:48:21 AM MOLASSES COLORING OPERATOR FINAL REPORT CT BRAIN WITHOUT CONTRAST: DATE: 09/26/2019 COMPARISON: 09/19/2019. FINDINGS/IMPRESSION: I agree with the findings and impression given in the preliminary report per [facility] physici an. No evidence of acute intracranial abnormality. POS: OFF
[2019-09-26] MEDS ORDERED: HumaLOG 300 UNITS/3 ML VIAL SC PRN (08:45)
--- NOTE | 2019-09-26 09:10 | CT ---
PRELIMINARY REPORT/[facility]/EMERGENCY AFTER HOURS PROCEDURE: EXAM: CT Cervical Spine Without Intravenous Contrast. CLINICAL HISTORY: 53 yo F presents to ED via EMS with c/o AMS. EMS reports pt was found by police laying down outside i n an open field, unknown down time. EMS reports pt's temp in route was measured at 92. EMS reports pt has abrasion to right knee. TECHNIQUE: Axial computed tomography images of the cervical spine without intravenous contrast. Sagittal and cor onal reformations performed. COMPARISON: None provided. FINDINGS: ONES: No acute fracture or focal osseous lesion. Bony alignment is anatomic. DISCS / DEGENERATIVE CHANGES: No significant disc or facet degeneration. No significant central canal or neural foraminal stenosis. SOFT TISSUES: No prevertebral soft tissue swelling. No apical pneumothorax. IMPRESSION: No acute cervical spine abnormality. ELECTRONICALLY SIGNED BY: Dayana Valdovinos MD Sep 26, 2019 6:52:57 AM INTEGRATED LOGISTICS SUPPORT MANAGER This report is intended for review by the ordering physician only, in accordance of law. If you recei ve this report in error, please call [facility] at [phone]. FINAL REPORT EMERGENT AFTER HOURS STUDY CT CERVICAL SPINE NONCONTRAST: HISTORY: 53 year old female status post acute cervical trauma from fall (found on ground). FINDINGS: There are no jumped or perched facets. There is no evidence of acute fracture. The vertebral body h eights are maintained. There is no prevertebral soft tissue swelling. No major disagreement with pr eliminary report by [facility]. IMPRESSION: No evidence of acute fracture or acute traumatic subluxation. jn [] POS: CET
[2019-09-26] MEDS: Sodium Chloride 0.9% 1,000 ML IV SCH ×2 (10:17→23:11)
[2019-09-26 10:25] LABS: Lactic Acid 1.7 mmol/L (0.5-2.2)
[2019-09-26 10:35] VITALS: BMI 26.8
[2019-09-26 10:35] LABS: Troponin I Less than 0.010 ng/mL (< 0.028)
[2019-09-26] MEDS ORDERED: Cyclobenzaprine 10 MG TAB PO PRN (12:04)
[2019-09-26] MEDS ORDERED: PROVENTIL INHALER 6.7 G (200 INHALATIONS) INH PRN (12:04)
[2019-09-26] MEDS: HumaLOG 300 UNITS/3 ML VIAL SC PRN (12:30)
[2019-09-26] MEDS: traMADol HCl 50 MG TAB PO PRN (12:30)
[2019-09-26 14:20] LABS: Troponin I Less than 0.010 ng/mL (< 0.028)
[2019-09-26] MEDS: Midodrine HCl 5 MG TAB PO SCH (16:28)
[2019-09-26] MEDS: Furosemide 40 MG TAB PO SCH (19:06)
[2019-09-26] MEDS: Rifaximin 550 MG TAB PO SCH (19:06)
[2019-09-26] MEDS: busPIRone HCl 10 MG TAB PO SCH (19:06)
[2019-09-26] MEDS: Spironolactone 100 MG TAB PO SCH (19:07)
[2019-09-27] MEDS: hydrOXYzine 25 MG TAB PO PRN ×3 (02:45→20:40)
[2019-09-27] MEDS: traMADol HCl 50 MG TAB PO PRN ×3 (02:45→20:40)
[2019-09-27 04:46] LABS: ALT (SGPT) 15 U/L (8-55); AST (SGOT) 28 U/L (5-34); Albumin 2.7 g/dL (3.5-5.0); Alkaline Phosphatase 88 U/L (40-110); Anion Gap 13 mmol/L (10-20); BUN (Urea Nitrogen) 25 mg/dL (9.8-20.1); Bilirubin, Total 1.6 mg/dL (0.2-1.2); Calc. Creatinine Clearance 54 mL/min (70-130); Calcium 8.4 mg/dL (7.8-10.44); Carbon Dioxide 19 mmol/L (22-29); Chloride 108 mmol/L (98-107); Estimated GFR-MDRD 40; Globulin 2.5 g/dL (2.4-3.5); Glucose 204 mg/dL (70-105); Potassium 3.6 mmol/L (3.5-5.1); Protein, Total 5.2 g/dL (6.0-8.3); Sodium 136 mmol/L (136-145)
[2019-09-27 04:50] LABS: Lymphocytes 16 % (21-51); MDiff Complete? YES; Mean Corpuscular HGB CONC 31.9 g/dL (32.0-36.0); Mean Corpuscular Hemoglobin 30.7 pg (27.0-31.0); Mean Corpuscular Volume 96.2 fL (78.0-98.0); Mean Platelet Volume 8.6 fL (7.4-10.4); Monocytes 11 % (0-10); Neutrophil 73 % (42-75); Platelet Count 87 thou/uL (130-400); Platelet Morphology Comment Appears Decreased; RBC Distribution Width 14.9 % (11.5-14.5); Red Blood Cell (RBC) Count 2.61 mill/uL (4.20-5.40)
--- NOTE | 2019-09-27 05:51 | PDOC.FM ---
- Subjective Subjective: Ms. Gonzalez is doing well this morning. She states she does not remember yesterday at all. She appears more at baseline this morning. She states her next f/u with her liver doctor in [place] is 10/20 and that she has to stop smoking for at least 6 months for them to do the transplant. She states she is going to start nicotine patches in order to quit. - Objective MAR Reviewed: Yes Vital Signs & Weight: Vital Signs (12 hours) Temp Pulse Resp BP Pulse Ox 09/27/19 00:00 98.2 F 101 H 18 133/78 99 09/26/19 20:09 98.7 F 109 H 20 112/68 Weight Weight 70.806 kg I&O: 09/25/19 09/26/19 09/27/19 06:59 06:59 06:59 Intake Total 1175 Output Total 1450 Balance -275 Result Diagrams: 09/27/19 04:09 09/27/19 04:09 Phys Exam - Physical Examination Constitutional: NAD HEENT: PERRLA, moist MMs Neck: supple, full ROM Respiratory: no wheezing, no rales, no rhonchi, clear to auscultation bilateral Cardiovascular: RRR, no significant murmur, no rub Gastrointestinal: soft, non-tender Musculoskeletal: no edema, pulses present Neurological: non-focal, normal sensation, moves all 4 limbs Psychiatric: normal affect, A&O x 3 Skin: normal turgor, cap refill <2 seconds Dx/Plan (1) Anemia Code(s): D64.9 - ANEMIA, UNSPECIFIED Status: Acute Qualifiers: Anemia type: unspecified type Qualified Code(s): D64.9 - Anemia, unspecified (2) Anxiety Code(s): F41.9 - ANXIETY DISORDER, UNSPECIFIED Status: Acute (3) Hepatic encephalopathy Code(s): K72.90 - HEPATIC FAILURE, UNSPECIFIED WITHOUT COMA Status: Acute (4) CKD (chronic kidney disease) stage 3, GFR 30-59 ml/min Code(s): N18.3 - CHRONIC KIDNEY DISEASE, STAGE 3 (MODERATE) Status: Chronic (5) Cirrhosis of liver with ascites Code(s): K74.60 - UNSPECIFIED CIRRHOSIS OF LIVER Status: Chronic Qualifiers: Hepatic cirrhosis type: unspecified hepatic cirrhosis Qualified Code(s): K74.60 - Unspecified cirrhosis of liver; R18.8 - Other ascites (6) DM type 2 (diabetes mellitus, type 2) Status: Chronic Qualifiers: Diabetes mellitus keno terminal operator insulin use: without penitentiary use Diabetes mellitus complication status: with kidney complications Diabetes mellitus complication detail: with chronic kidney disease Chronic kidney disease stage : stage 3 (moderate) Qualified Code(s): E11.22 - Type 2 diabetes mellitus with diabetic chronic kidney disease; N18.3 - Chronic kidney disease, stage 3 ( moderate) (7) Esophageal varices Code(s): I85.00 - ESOPHAGEAL VARICES WITHOUT BLEEDING Status: Chronic - Plan Plan: Mild to moderate hypothermia, resolved Hepatic Encephalopathy, resolved - A/Ox1 on initial presentation, now A&O x3. - On transplant list, [place]. - On Lactulose QID - cont home aldactone, rifaximin Leukocytosis, elevated lactic acid, resolved - Received 1 dose of ceftriaxone and azithromycin Fungal skin infection - Will give clotrimazole cream Cirrhosis with ascities - MELD 20, 19.6% 3-mo mortality. - Is on transplant list - Cont home meds H/o esophageal varices - cont home protonix, no s/s of acute bleed, VSS, will monitor CKD 3 - Cr 1.43, appears new baseline Chronic Thombocytopenia - Plt: 113 > 83. - Will monitor, hold anticoagulation for DVT PPX 2/2 risk of falls and history of chronic liver disease, thrombocytopenia. Hx of DMII - A1c in May 2019 4.6. No home insulin. Will monitor. - Cover with SSI Anxiety/depression - Cont buspar Disposition/LOS: Code: Full Diet: Regular VTE: SCDs GI PPx: Protonix IVF: SL PCP: CARLY Jeff Dispo: Stable, inpatient for hypothermia and hepatic encephalopathy. Addendum - Attending - Attending Attestation Date/Time: 09/27/192049 I personally evaluated the patient and discussed the management with Dr. Lea. I agree with the History, Examination, Assessment and Plan documented above with any addition or exceptions noted below. The patient is less confused this morning. continuing lactulose. Leukocytosis resolved. Will d/c antibiotics.
[2019-09-27] MEDS: busPIRone HCl 10 MG TAB PO SCH ×2 (07:43→20:39)
[2019-09-27] MEDS: Rifaximin 550 MG TAB PO SCH ×2 (07:43→20:40)
[2019-09-27] MEDS: Spironolactone 100 MG TAB PO SCH (07:43)
[2019-09-27] MEDS: Midodrine HCl 5 MG TAB PO SCH ×3 (07:43→17:00)
[2019-09-27] MEDS: Furosemide 40 MG TAB PO SCH (07:44)
[2019-09-27] MEDS: HumaLOG 300 UNITS/3 ML VIAL SC PRN ×2 (11:47→17:02)
--- NOTE | 2019-09-27 15:13 | PRG ---
DATE OF SERVICE: 09/27/2019 SUBJECTIVE: Ms. Gonzalez was readmitted to the hospital yesterday after being found down. She was encephalopathic. This is her second admission for encephalopathy since she was in [place] for the admission before that, where she was transferred for re-evaluation and revision of her TIPS as it was occluded and she was having recurrent anemia requiring admissions for transfusion and recurrent severe ascites. Since then, her hemoglobin has remained stable. Her last transfusion requirement was 09/20, before that it was August 26. That was when she was transferred out. She is still getting paracentesis weekly, but minimal fluids being removed now. She feels better now. She thinks she is going home. Medications at home, she reports she is off cyclobenzaprine and sleep aids. She is only using melatonin to sleep. She does have some Ultram for pain, which she takes occasionally. OBJECTIVE: GENERAL: She is alert and oriented. She has been afebrile. HEENT: Conjunctivae and sclerae are clear. LUNGS: Clear. HEART: Regular rhythm without clicks or murmurs. ABDOMEN: Much softer. EXTREMITIES: No clubbing, cyanosis, or edema. LABORATORY DATA: White count is 4 and hemoglobin is 8. BUN and creatinine are 25 and 1.38, sodium 136, bicarb 19, chloride 108, and potassium 3.6. MEDICATIONS AT HOME: The nurses reports: 1. Flexeril. 2. B12. 3. Albuterol. 4. Tramadol. 5. Melatonin. 6. Lactulose. 7. Furosemide 40 b.i.d. 8. Aldactone 100 mg b.i.d. 9. Rifaximin 550 b.i.d. 10. Protonix. 11. Midodrine 5 mg p.o. t.i.d. 12. Hydroxyzine. 13. Clotrimazole. Here in inpatient, she is on: 1. . 2. Rifaximin. 3. Protonix. 4. Midodrine. 5. Lactulose q.i.d. 6. Furosemide 40 b.i.d. 7. Cyclobenzaprine. 8. Clotrimazole. 9. Buspirone. 10. Albuterol. ASSESSMENT AND PLAN: 1. Recurrent encephalopathy, this can be worse as her transjugular intrahepatic portosystemic shunt was revised and such going to improve her portal hypertension issues. It is going to make her have less ascites and less bleeding from portal gastropathy, which was the main reason she was getting admitted over and over. Unfortunately, it is going to make her encephalopathy worse, I have instructed her to increase the lactulose to 2 to 5 doses a day to titrate bowel movements to 3 to 5 bowel movements a day. I would recommend stopping anything that is going to make her encephalopathic and the main thing right now would be the Flexeril. I would leave her on her BuSpar. 2. I would hold her diuretics for now. She may not need them. If transjugular intrahepatic portosystemic shunt is properly functioning, her ascites is going to slowly go away. Job ID: [id number]
[2019-09-27] MEDS: Clotrimazole 1 % Cream 30 GM TUBE TOP SCH ×2 (17:56→20:38)
[2019-09-27] MEDS ORDERED: Melatonin 3 MG TAB PO SCH (21:00)
--- NOTE | 2019-09-28 05:43 | PDOC.FM ---
- Subjective Subjective: Ms. Gonzalez is doing well this morning. She is eager for d/c. - Objective MAR Reviewed: Yes Vital Signs & Weight: Vital Signs (12 hours) Temp Pulse Resp BP Pulse Ox 09/27/19 20:06 97.5 F L 100 16 114/69 100 Weight Weight 70.806 kg I&O: 09/26/19 09/27/19 09/28/19 06:59 06:59 06:59 Intake Total 1175 550 Output Total 1450 500 Balance -275 50 Result Diagrams: 09/28/19 05:25 09/28/19 05:25 Phys Exam - Physical Examination Constitutional: NAD HEENT: PERRLA, moist MMs Neck: supple, full ROM Respiratory: no wheezing, no rales, no rhonchi, clear to auscultation bilateral Cardiovascular: RRR, no significant murmur, no rub Gastrointestinal: soft, non-tender, no distention, positive bowel sounds Musculoskeletal: no edema, pulses present Neurological: non-focal, normal sensation Psychiatric: normal affect, A&O x 3 Skin: no rash, normal turgor Dx/Plan (1) Anemia Code(s): D64.9 - ANEMIA, UNSPECIFIED Status: Acute Qualifiers: Anemia type: unspecified type Qualified Code(s): D64.9 - Anemia, unspecified (2) Anxiety Code(s): F41.9 - ANXIETY DISORDER, UNSPECIFIED Status: Acute (3) Hepatic encephalopathy Code(s): K72.90 - HEPATIC FAILURE, UNSPECIFIED WITHOUT COMA Status: Acute (4) CKD (chronic kidney disease) stage 3, GFR 30-59 ml/min Code(s): N18.3 - CHRONIC KIDNEY DISEASE, STAGE 3 (MODERATE) Status: Chronic (5) Cirrhosis of liver with ascites Code(s): K74.60 - UNSPECIFIED CIRRHOSIS OF LIVER Status: Chronic Qualifiers: Hepatic cirrhosis type: unspecified hepatic cirrhosis Qualified Code(s): K74.60 - Unspecified cirrhosis of liver; R18.8 - Other ascites (6) DM type 2 (diabetes mellitus, type 2) Status: Chronic Qualifiers: Diabetes mellitus retirement insulin use: without manager terminal use Diabetes mellitus complication status: with kidney complications Diabetes mellitus complication detail: with chronic kidney disease Chronic kidney disease stage : stage 3 (moderate) Qualified Code(s): E11.22 - Type 2 diabetes mellitus with diabetic chronic kidney disease; N18.3 - Chronic kidney disease, stage 3 ( moderate) (7) Esophageal varices Code(s): I85.00 - ESOPHAGEAL VARICES WITHOUT BLEEDING Status: Chronic - Plan Plan: Mild to moderate hypothermia, resolved Hepatic Encephalopathy, resolved - Dr. Schmid, GI, saw her yesterday and recommended increase lactulose and d/c flexeril and furosemide. - On Lactulose QID - cont home aldactone, rifaximin Leukocytosis, elevated lactic acid, resolved - Received 1 dose of ceftriaxone and azithromycin Fungal skin infection - Will give clotrimazole cream on d/c Cirrhosis with ascities - MELD 20, 19.6% 3-mo mortality. - Is on transplant list - Cont home meds H/o esophageal varices - cont home protonix, no s/s of acute bleed, VSS, will monitor CKD 3 - Cr 1.43, appears new baseline Chronic Thombocytopenia - Plt: 113 > 83. - Will monitor, hold anticoagulation for DVT PPX 2/2 risk of falls and history of chronic liver disease, thrombocytopenia. Hx of DMII - A1c in May 2019 4.6. No home insulin. Will monitor. - Cover with SSI Anxiety/depression - Cont buspar Disposition/LOS: Code: Full Diet: Regular VTE: SCDs GI PPx: Protonix IVF: SL PCP: CARLY Jeff Dispo: Stable, plan to d/c today. Addendum - Attending - Attending Attestation Date/Time: 09/28/19 1041 I personally evaluated the patient and discussed the management with Dr. Lea. I agree with the History, Examination, Assessment and Plan documented above with any addition or exceptions noted below. The patient wants to go home. 1/2 blood cultures positive for strep. She is afebrile. She has no clinical signs of infection. Will repeat blood cultures. Close follow-up outpt and will treat if next set is positive.
[2019-09-28 06:07] LABS: ALT (SGPT) 19 U/L (8-55); AST (SGOT) 36 U/L (5-34); Albumin 2.6 g/dL (3.5-5.0); Alkaline Phosphatase 90 U/L (40-110); Anion Gap 13 mmol/L (10-20); BUN (Urea Nitrogen) 22 mg/dL (9.8-20.1); Bilirubin, Total 1.4 mg/dL (0.2-1.2); Calc. Creatinine Clearance 64 mL/min (70-130); Calcium 8.1 mg/dL (7.8-10.44); Carbon Dioxide 20 mmol/L (22-29); Chloride 109 mmol/L (98-107); Estimated GFR-MDRD 49; Globulin 2.6 g/dL (2.4-3.5); Glucose 174 mg/dL (70-105); Potassium 3.5 mmol/L (3.5-5.1); Protein, Total 5.2 g/dL (6.0-8.3); Sodium 138 mmol/L (136-145)
[2019-09-28 06:13] LABS: Hemoglobin 7.7 g/dL (12.0-16.0); Hypochromia SLIGHT = 6-15 cells (100X) (0-5/hpf); Lymphocytes 12 % (21-51); MDiff Complete? YES; Mean Corpuscular HGB CONC 33.8 g/dL (32.0-36.0); Mean Corpuscular Volume 94.9 fL (78.0-98.0); Mean Platelet Volume 8.3 fL (7.4-10.4); Monocytes 14 % (0-10); Neutrophil 74 % (42-75); Platelet Count 68 thou/uL (130-400); Platelet Morphology Comment Appears Decreased; RBC Distribution Width 14.4 % (11.5-14.5); Red Blood Cell (RBC) Count 2.41 mill/uL (4.20-5.40); White Blood Cell (WBC) Count 2.8 thou/uL (4.8-10.8)
[2019-09-28 08:36] VITALS: BP 100/60; TEMP 98.1
[2019-09-28] MEDS: Rifaximin 550 MG TAB PO SCH (09:59)
[2019-09-28] MEDS: Clotrimazole 1 % Cream 30 GM TUBE TOP SCH (09:59)
[2019-09-28] MEDS: Midodrine HCl 5 MG TAB PO SCH (10:01)
[2019-09-28] MEDS: traMADol HCl 50 MG TAB PO PRN (10:02)
--- NOTE | 2019-09-29 13:16 | DIS ---
DATE OF ADMISSION: 09/26/2019 DATE OF DISCHARGE: 09/28/2019 RESIDENT: Iliana Lea MD ADMITTING ATTENDING: Javy Toussaint MD DISCHARGE ATTENDING: Arlette Casillas MD CONSULT: Gastroenterology, Dr. Schmid. PROCEDURES: None. PRIMARY DIAGNOSIS: [id number] hypothermia. SECONDARY DIAGNOSES: 1. Hepatic encephalopathy. 2. Leukocytosis. 3. Fungal skin infection. 4. Cirrhosis with ascites. 5. History of esophageal varices. 6. Chronic kidney disease, 3. 7. Chronic thrombocytopenia. 8. History of diabetes. 9. Anxiety and depression. DISCHARGE MEDICATIONS: 1. Albuterol. 2. Buspirone 10 mg. 3. B12. 4. Iron. 5. Flonase spray. 6. Folic acid. 7. Loratadine 10 mg. 8. Magnesium oxide. 9. Melatonin. 10. Protonix 40 mg b.i.d. 11. Xifaxan 550 mg b.i.d. 12. Spironolactone 100 mg b.i.d. 13. Tramadol 50 mg q.i.d. p.r.n. 14. Clotrimazole cream. 15. Hydralazine 25 mg p.o. 16. Lactulose 30 g b.i.d. to q.i.d. for 3 to 5 bowel movements per day. 17. Midodrine 5 mg t.i.d. p.r.n. with meals. DISCONTINUED MEDICATIONS: 1. Flexeril. 2. Furosemide. HISTORY OF PRESENT ILLNESS AND HOSPITAL COURSE: Ms. Gonzalez is well known to our service, a 53-year-old female with past medical history of cirrhosis, frequent hepatic encephalopathy and GI bleeding as a result of the cirrhosis. She also has a history of reflux disease, hepatitis B, diabetes, anxiety and depression, and chronic hip pain, who presented after being found down in the field. Upon arrival, EMS noted her temperature to be 92 degrees Fahrenheit and she was altered. She does not remember the activities of the day prior to admission. Once she arrived in the ED, she was placed on a [employer] warmer and her temperature came up nicely. She was started on Rocephin for possible spontaneous bacterial peritonitis prophylaxis. She was A and O x1 on initial presentation consistent with her typical hepatic encephalopathy. She was given lactulose 30 g q.i.d. and her altered mental status resolved by the day of discharge. Dr. Schmid saw the patient while hospitalized and counseled the patient that she is more likely to have hepatic encephalopathy since her TIPS procedure has been revised and that she will likely need left paracentesis going forward and therefore no longer need diuretics. He recommended that she titrate her lactulose daily to have 3 to 5 bowel movements per day. DISPOSITION: Guarded. DISCHARGE INSTRUCTIONS: 1. Location: Home. 2. Diet: Regular. 3. Activity: Ad antoine. 4. Followup: Follow up with Dr. Schmid within 1 week. Follow up with primary care physician after discharge. Job ID: [id number]
== END 2019-09-28 10:52 | disposition home or self-care (01) | DRG 442 ==
LOC: ERS 06:01 → T4-A 08:15
PROVIDERS: ADMIT Internal Medicine; ATTEND Internal Medicine
DX: K72.00 Acute and subacute hepatic failure without coma (principal); R18.8 Other ascites; I85.00 Esophageal varices without bleeding; E87.2 Acidosis; B18.1 Chronic viral hepatitis B without delta-agent; K76.6 Portal hypertension; T68.XXXA Hypothermia, initial encounter; K21.9 Gastro-esophageal reflux disease without esophagitis; M48.00 Spinal stenosis, site unspecified; F41.9 Anxiety disorder, unspecified; D63.1 Anemia in chronic kidney disease; I12.9 Hypertensive chronic kidney disease with stage 1 through stage 4 chronic kidney disease, or unspecified chronic kidney disease; E11.22 Type 2 diabetes mellitus with diabetic chronic kidney disease; N18.3 Chronic kidney disease, stage 3 (moderate); K74.60 Unspecified cirrhosis of liver; D72.829 Elevated white blood cell count, unspecified; D69.6 Thrombocytopenia, unspecified; F32.9 Major depressive disorder, single episode, unspecified; S80.211A Abrasion, right knee, initial encounter; J45.909 Unspecified asthma, uncomplicated; B36.9 Superficial mycosis, unspecified; Z90.49 Acquired absence of other specified parts of digestive tract; Z87.891 Personal history of nicotine dependence; Z88.8 Allergy status to other drugs, medicaments and biological substances; Z88.5 Allergy status to narcotic agent; Z88.2 Allergy status to sulfonamides; Z88.0 Allergy status to penicillin; Z79.899 Other long term (current) drug therapy
CPT/HCPCS: 36415; 36416; 70450; 72125; 80053; 80306; 80307; 81003; 82140; 83605; 84443; 84484; 85025; 87040; 87077; 87149; 93005; J0456; J0696

== ENCOUNTER 2019-10-03 09:24 | Day surgery (SDC) | payer OTHER ==
[2019-10-02 14:32] VITALS: BMI 28.1
[2019-10-03] MEDS ORDERED: Albumin 25% 200 ML ONE (09:28)
[2019-10-03] MEDS ORDERED: Lidocaine 1% PF 5 ML VIAL ONE (09:28)
[2019-10-03] MEDS ORDERED: Sodium Bicarbonate 2.5 MEQ/5 ML VIAL ONE (09:28)
[2019-10-03] MEDS ORDERED: Sodium Chloride 0.9% 20 ML ONE (09:29)
[2019-10-03 10:21] LABS: Hemoglobin 7.3 g/dL (12.0-16.0)
[2019-10-03 10:31] LABS: Anion Gap 10 mmol/L (10-20); BUN (Urea Nitrogen) 19 mg/dL (9.8-20.1); Calc. Creatinine Clearance 72 mL/min (70-130); Calcium 7.6 mg/dL (7.8-10.44); Carbon Dioxide 20 mmol/L (22-29); Chloride 100 mmol/L (98-107); Estimated GFR-MDRD 48; Glucose 288 mg/dL (70-105); Potassium 4.1 mmol/L (3.5-5.1); Sodium 126 mmol/L (136-145)
[2019-10-03 11:31] VITALS: BP 99/46; TEMP 97.8
--- NOTE | 2019-10-03 11:45 | ULT ---
Exam: Ultrasound guided paracentesis HISTORY: Ascites COMPARISON: 09/19/2019 FINDINGS: Successful ultrasound-guided paracentesis. Total of 7 L of cloudy yellow ascites was aspira cassie. TECHNIQUE: Consent obtained reformatory ultrasound-guided paracentesis. Right lower quadrant was deem ed appropriate. Skin was prepped and draped in a sterile fashion. 1% lidocaine, buffered with sodium bicarbonate was used for local anesthesia. Under ultrasound guidance, a 5 Serbian 7 cm Yueh cat heter is advanced in the peritoneal space. A total of 7 L of cloudy yellow ascites was aspirated. No immediate or postprocedural complications IMPRESSION: Successful ultrasound-guided paracentesis.
== END 2019-10-03 11:10 | disposition home or self-care (01) ==
LOC: ULT 09:24
PROVIDERS: ATTEND Internal Medicine Gastroenterology
PROC: BW40ZZZ Ultrasonography of Abdomen (ICD-10-PCS; principal; 2019-10-03)
PROC: 0W9G3ZZ Drainage of Peritoneal Cavity, Percutaneous Approach (ICD-10-PCS; principal; 2019-10-03)
DX: K74.60 Unspecified cirrhosis of liver (principal); R18.8 Other ascites; I12.9 Hypertensive chronic kidney disease with stage 1 through stage 4 chronic kidney disease, or unspecified chronic kidney disease; E11.22 Type 2 diabetes mellitus with diabetic chronic kidney disease; N18.9 Chronic kidney disease, unspecified; D63.1 Anemia in chronic kidney disease; J44.9 Chronic obstructive pulmonary disease, unspecified; F41.9 Anxiety disorder, unspecified; F32.9 Major depressive disorder, single episode, unspecified; Z88.0 Allergy status to penicillin; Z88.2 Allergy status to sulfonamides; Z88.5 Allergy status to narcotic agent; Z88.8 Allergy status to other drugs, medicaments and biological substances; Z91.018 Allergy to other foods
CPT/HCPCS: 49083; 80048; 85014; 85018; J1642; J2001; P9047

== ENCOUNTER 2019-10-10 09:11 | Day surgery (SDC) | payer OTHER ==
[2019-10-09 13:56] VITALS: BMI 30.2
[2019-10-10] MEDS ORDERED: Albumin 25% 200 ML ONE (09:32)
[2019-10-10] MEDS ORDERED: Lidocaine 1% PF 5 ML VIAL ONE (09:32)
[2019-10-10 09:58] LABS: Hemoglobin 7.9 g/dL (12.0-16.0)
[2019-10-10] MEDS ORDERED: Sodium Chloride 0.9% 10 ML ONE (10:06)
[2019-10-10 10:18] LABS: Anion Gap 12 mmol/L (10-20); BUN (Urea Nitrogen) 22 mg/dL (9.8-20.1); Calc. Creatinine Clearance 74 mL/min (70-130); Calcium 8.3 mg/dL (7.8-10.44); Carbon Dioxide 18 mmol/L (22-29); Chloride 105 mmol/L (98-107); Estimated GFR-MDRD 46; Glucose 222 mg/dL (70-105); Potassium 4.1 mmol/L (3.5-5.1); Sodium 131 mmol/L (136-145)
--- NOTE | 2019-10-10 10:35 | ULT ---
PREPROCEDURE DIAGNOSIS: Ascites POST PROCEDURE DIAGNOSIS: Same PROCEDURE: Ultrasound-guided paracentesis TRAUMA DOCTOR: Mario ANESTHESIA: 7 mL of buffered 1% lidocaine. SPECIMEN: 7 L of straw-colored fluid TECHNIQUE: Prior to the procedure, the risks and benefits of an ultrasound guided paracentesis were explained to the patient which consented fully to the procedure. The area of the largest fluid collection was seen in the right lower quadrant of the abdomen. This a sylvie was prepped and draped in the usual sterile fashion. Lidocaine was used to anesthetize the skin and soft tissues down towards the peritoneal cavity. The p eritoneum was anesthetized. A small skin incision was made for passage of the EximForceeh needle and catheter. This device was then placed using ultrasound guidance into the peritoneal cavity. The needle was removed after return of fluid. The catheter was then connected to multiple Vacutainer bottles. A total of 7 L was removed. A large amount of fluid is seen remaining in this region of the peritonea l cavity. IMPRESSION: Status post successful ultrasound-guided paracentesis
== END 2019-10-10 10:30 | disposition home or self-care (01) ==
LOC: ULT 09:11
PROVIDERS: ATTEND Internal Medicine Gastroenterology
PROC: BW40ZZZ Ultrasonography of Abdomen (ICD-10-PCS; principal; 2019-10-10)
PROC: 0W9G3ZZ Drainage of Peritoneal Cavity, Percutaneous Approach (ICD-10-PCS; principal; 2019-10-10)
DX: K74.60 Unspecified cirrhosis of liver (principal); R18.8 Other ascites; I12.9 Hypertensive chronic kidney disease with stage 1 through stage 4 chronic kidney disease, or unspecified chronic kidney disease; E11.22 Type 2 diabetes mellitus with diabetic chronic kidney disease; N18.9 Chronic kidney disease, unspecified; J44.9 Chronic obstructive pulmonary disease, unspecified; F41.9 Anxiety disorder, unspecified; F32.9 Major depressive disorder, single episode, unspecified; K21.9 Gastro-esophageal reflux disease without esophagitis; Z79.899 Other long term (current) drug therapy; Z87.891 Personal history of nicotine dependence; Z88.0 Allergy status to penicillin; Z88.5 Allergy status to narcotic agent; Z88.6 Allergy status to analgesic agent; Z88.8 Allergy status to other drugs, medicaments and biological substances; Z91.018 Allergy to other foods
CPT/HCPCS: 49083; 80048; 85014; 85018; J1642; J2001; P9047

== ENCOUNTER 2019-10-17 09:54 | Day surgery (SDC) | payer OTHER ==
[2019-10-17] MEDS ORDERED: Lidocaine 1% PF 5 ML VIAL ONE (10:30)
[2019-10-17] MEDS ORDERED: Albumin 25% 200 ML ONE (10:30)
[2019-10-17] MEDS ORDERED: Sodium Chloride 0.9% 10 ML ONE (10:53)
[2019-10-17 10:54] LABS: Hemoglobin 7.7 g/dL (12.0-16.0); Mean Corpuscular HGB CONC 32.8 g/dL (32.0-36.0); Mean Corpuscular Hemoglobin 32.1 pg (27.0-31.0); Mean Corpuscular Volume 97.9 fL (78.0-98.0); Mean Platelet Volume 7.5 fL (7.4-10.4); Platelet Count 88 thou/uL (130-400); RBC Distribution Width 13.7 % (11.5-14.5); White Blood Cell (WBC) Count 3.7 thou/uL (4.8-10.8)
[2019-10-17 10:56] LABS: ALT (SGPT) 16 U/L (8-55); AST (SGOT) 23 U/L (5-34); Albumin 2.6 g/dL (3.5-5.0); Alkaline Phosphatase 112 U/L (40-110); Anion Gap 12 mmol/L (10-20); BUN (Urea Nitrogen) 16 mg/dL (9.8-20.1); Bilirubin, Total 1.5 mg/dL (0.2-1.2); Calc. Creatinine Clearance 4 mL/min (70-130); Calcium 7.9 mg/dL (7.8-10.44); Carbon Dioxide 21 mmol/L (22-29); Chloride 104 mmol/L (98-107); Estimated GFR-MDRD 36; Globulin 2.4 g/dL (2.4-3.5); Glucose 219 mg/dL (70-105); Potassium 4.4 mmol/L (3.5-5.1); Sodium 133 mmol/L (136-145)
[2019-10-17 10:58] LABS: INR-International Normal Ratio 1.5; Prothrombin Time 17.7 SEC (12.0-14.7)
[2019-10-17 12:00] LABS: Amphetamine Not Detected (NotDetected); Band 11 % (5-11); Barbiturates Screen Not Detected (NotDetected); Benzodiazepine Screen Not Detected (NotDetected); Cocaine Metabolite Screen Not Detected (NotDetected); Eosinophils 5 % (0-10); Lymphocytes 20 % (21-51); MDiff Complete? YES; Medtox Reader # READER 4; Methadone Not Detected (NotDetected); Methamphetamine Not Detected (NotDetected); Monocytes 7 % (0-10); Neutrophil 57 % (42-75); Opiate Screen Not Detected (NotDetected); Oxycodone Screen Not Detected (NotDetected); Phencyclidine (PCP) Not Detected (NotDetected); Platelet Morphology Comment Appears Decreased; Polychromasia SLIGHT = 2-3 cells (100X) (0-2/hpf); THC/Cannabinoid Screen Not Detected (NotDetected); Tricyclic Screen Not Detected (NotDetected)
[2019-10-17 12:01] LABS: Medtox Control Line Valid? VALID (VALID)
--- NOTE | 2019-10-17 12:12 | ULT ---
Sonographic guided paracentesis HISTORY: Recurrent ascites. FINDINGS: After explaining the procedure and answering all questions, sonographic survey shows a larg e amount of free fluid throughout the abdomen. Sterile technique, buffered local anesthesia, sonographic guidance, and a left lateral approach were used to carefully advance a 19-gauge Yueh need le and catheter into the free fluid. Catheter was left to drain a total volume of 7.0 L slightly cloudy light yellow liquid. Catheter was removed. Moderate amount of fluid remains. Patient tolerated the procedure well and was dismissed in good condition. IMPRESSION: Technically successful sonographic guided paracentesis.
[2019-10-17 13:32] VITALS: BP 107/57; TEMP 98.7
[2019-10-17 14:37] LABS: Ref Lab Test Ordered NICOTINE UR; Reference Lab Name LABCORP
[2019-10-17 14:38] LABS: Ref Lab Test Ordered PETH; Reference Lab Name LABCORP
== END 2019-10-17 11:30 | disposition home or self-care (01) ==
LOC: ULT 09:54
PROVIDERS: ATTEND Internal Medicine Gastroenterology
PROC: 0W9G3ZZ Drainage of Peritoneal Cavity, Percutaneous Approach (ICD-10-PCS; principal; 2019-10-17)
PROC: BW40ZZZ Ultrasonography of Abdomen (ICD-10-PCS; principal; 2019-10-17)
DX: K74.60 Unspecified cirrhosis of liver (principal); R18.8 Other ascites; K31.819 Angiodysplasia of stomach and duodenum without bleeding; D62 Acute posthemorrhagic anemia; Z79.899 Other long term (current) drug therapy; Z88.0 Allergy status to penicillin; Z88.2 Allergy status to sulfonamides; Z88.5 Allergy status to narcotic agent; Z88.6 Allergy status to analgesic agent; Z91.018 Allergy to other foods; Z91.048 Other nonmedicinal substance allergy status
CPT/HCPCS: 49083; 80053; 80306; 80307; 85025; 85610; J1642; J2001; P9047

== ENCOUNTER 2019-10-24 09:03 | Day surgery (SDC) | payer OTHER ==
[2019-10-24] MEDS ORDERED: Lidocaine 1% PF 5 ML VIAL ONE (09:48)
[2019-10-24] MEDS ORDERED: Albumin 25% 200 ML ONE (09:48)
[2019-10-24] MEDS ORDERED: Sodium Bicarbonate 2.5 MEQ/5 ML VIAL ONE (09:48)
[2019-10-24] MEDS ORDERED: Sodium Chloride 0.9% 10 ML ONE (10:57)
[2019-10-24 11:09] LABS: Hemoglobin 7.4 g/dL (12.0-16.0)
--- NOTE | 2019-10-24 11:20 | ULT ---
Sonographic guided paracentesis HISTORY: Recurrent ascites. FINDINGS: After explaining the procedure and answering all questions, sonographic survey shows large amount of free fluid throughout the abdomen. Sterile technique, buffered local anesthesia, sonographic guidance, and a left lateral approach were used to carefully advance a 19-gauge Yueh need le and catheter into the free fluid. Catheter was left to drain a total volume of 7.0 L slightly yellow cloudy liquid. Patient is limited to 7 L. Catheter was removed with large amount of free fluid remaining. Patient tolerated the procedure well and was dismissed in good condition. IMPRESSION: Technically successful sonographic guided paracentesis.
[2019-10-24 11:30] LABS: Anion Gap 11 mmol/L (10-20); BUN (Urea Nitrogen) 20 mg/dL (9.8-20.1); Calc. Creatinine Clearance 0 mL/min (70-130); Calcium 7.8 mg/dL (7.8-10.44); Carbon Dioxide 21 mmol/L (22-29); Estimated GFR-MDRD 36; Glucose 278 mg/dL (70-105)
[2019-10-24 11:52] LABS: Chloride 105 mmol/L (98-107); Sodium 133 mmol/L (136-145)
[2019-10-24 13:55] VITALS: BP 110/60; TEMP 98.7
== END 2019-10-24 11:40 | disposition home or self-care (01) ==
LOC: ULT 09:03
PROVIDERS: ATTEND Internal Medicine Gastroenterology
PROC: 0W9G3ZZ Drainage of Peritoneal Cavity, Percutaneous Approach (ICD-10-PCS; principal; 2019-10-24)
PROC: BW40ZZZ Ultrasonography of Abdomen (ICD-10-PCS; principal; 2019-10-24)
DX: K74.60 Unspecified cirrhosis of liver (principal); R18.8 Other ascites; I12.9 Hypertensive chronic kidney disease with stage 1 through stage 4 chronic kidney disease, or unspecified chronic kidney disease; E11.22 Type 2 diabetes mellitus with diabetic chronic kidney disease; N18.9 Chronic kidney disease, unspecified; J44.9 Chronic obstructive pulmonary disease, unspecified; F41.9 Anxiety disorder, unspecified; F32.9 Major depressive disorder, single episode, unspecified; F17.210 Nicotine dependence, cigarettes, uncomplicated; K21.9 Gastro-esophageal reflux disease without esophagitis; Z88.0 Allergy status to penicillin; Z88.2 Allergy status to sulfonamides; Z88.5 Allergy status to narcotic agent; Z88.6 Allergy status to analgesic agent; Z91.018 Allergy to other foods; Z91.048 Other nonmedicinal substance allergy status
CPT/HCPCS: 49083; 80048; 85014; 85018; J1642; J2001; P9047

== ENCOUNTER 2019-10-31 09:28 | Day surgery (SDC) | payer OTHER ==
[2019-10-30 08:48] VITALS: BMI 30.2
[2019-10-31] MEDS ORDERED: Sodium Chloride 0.9% 20 ML ONE (09:31)
[2019-10-31] MEDS ORDERED: Lidocaine 1% PF 5 ML VIAL ONE (09:31)
[2019-10-31] MEDS ORDERED: Sodium Bicarbonate 2.5 MEQ/5 ML VIAL ONE (09:31)
[2019-10-31] MEDS ORDERED: Albumin 25% 200 ML ONE (09:31)
[2019-10-31 11:53] VITALS: BP 115/66; TEMP 98
--- NOTE | 2019-10-31 11:54 | ULT ---
ULTRASOUND-GUIDED PARACENTESIS THERAPEUTIC: DATE: 10/31/2019 HISTORY: 53-year-old female with symptomatic ascites (abdominal distention) due to cirrhosis. TECHNIQUE: Signed informed consent obtained. A four-quadrant survey of abdomen performed. Site selected for puncture: Overlying skin prepared and draped in usual sterile fashion. 25-gauge needle used to apply buffered lidocaine superficially and deeply. 5 Welsh Yueh catheter with stylette advanced into the pocket of free intraperitoneal fluid. After drainage, the Yueh catheter was removed. Patient tolerated the procedure well. No complications. FINDINGS: Volume of ascites prior to procedure:large. Volume of ascites fluid in the drainage pocket after drainage:Minimal. Volume of ascites fluid drained:7000 mL Appearance of ascites fluid: IMPRESSION: Successful therapeutic paracentesis, with drainage of 7 L of ascites fluid.
[2019-10-31 12:32] LABS: Hemoglobin 7.2 g/dL (12.0-16.0)
[2019-10-31 12:34] LABS: Anion Gap 9 mmol/L (10-20); BUN (Urea Nitrogen) 16 mg/dL (9.8-20.1); Calc. Creatinine Clearance 60 mL/min (70-130); Carbon Dioxide 21 mmol/L (22-29); Chloride 104 mmol/L (98-107); Estimated GFR-MDRD 36; Glucose 379 mg/dL (70-105); Potassium 4.7 mmol/L (3.5-5.1); Sodium 129 mmol/L (136-145)
== END 2019-10-31 11:20 | disposition home or self-care (01) ==
LOC: ULT 09:28
PROVIDERS: ATTEND Internal Medicine Gastroenterology
PROC: BW40ZZZ Ultrasonography of Abdomen (ICD-10-PCS; principal; 2019-10-31)
PROC: 0W9G3ZZ Drainage of Peritoneal Cavity, Percutaneous Approach (ICD-10-PCS; principal; 2019-10-31)
DX: K74.60 Unspecified cirrhosis of liver (principal); R18.8 Other ascites; I12.9 Hypertensive chronic kidney disease with stage 1 through stage 4 chronic kidney disease, or unspecified chronic kidney disease; E11.22 Type 2 diabetes mellitus with diabetic chronic kidney disease; N18.9 Chronic kidney disease, unspecified; D64.9 Anemia, unspecified; J44.9 Chronic obstructive pulmonary disease, unspecified; Z87.891 Personal history of nicotine dependence; Z88.0 Allergy status to penicillin; Z88.2 Allergy status to sulfonamides; Z88.5 Allergy status to narcotic agent; Z88.6 Allergy status to analgesic agent; Z88.8 Allergy status to other drugs, medicaments and biological substances; Z91.018 Allergy to other foods
CPT/HCPCS: 49083; 80048; 85014; 85018; J1642; J2001; P9047

== ENCOUNTER 2019-11-07 08:52 | Day surgery (SDC) | payer OTHER ==
[2019-11-06 09:52] VITALS: BMI 32.8
[~2019-11-07 08:52] MED LIST changes: -Albumin 25% 200 ML ONE; +FLU VACC QS2019-20(6MOS UP)/PF 60 MCG/0.5 ML SYRINGE IM ONE; -Sodium Chloride 0.9% 10 ML ONE
[2019-11-07] MEDS ORDERED: Lidocaine 1% PF 5 ML VIAL ONE (09:16)
[2019-11-07] MEDS ORDERED: Sodium Chloride 0.9% 20 ML ONE (09:16)
[2019-11-07] MEDS ORDERED: Sodium Bicarbonate 2.5 MEQ/5 ML VIAL ONE (09:16)
[2019-11-07 10:44] LABS: INR-International Normal Ratio 1.5; Prothrombin Time 17.6 SEC (12.0-14.7)
[2019-11-07 10:45] LABS: #Eosinphils 0.3 thou/uL (0.0-0.7); #Lymphocytes 0.6 thou/uL (1.20-3.40); #Monocytes 0.6 thou/uL (0.11-0.59); #Neutrophils 4.2 thou/uL (1.40-6.50); %Basophils 0.7 % (0.0-1.0); %Eosinophils 5.6 % (0.0-10.0); %Lymphocytes 9.5 % (21.0-51.0); %Monocytes 11.1 % (0.0-10.0); %Neutrophils 73.1 % (42.0-75.0); Hemoglobin 7.3 g/dL (12.0-16.0); Mean Corpuscular HGB CONC 32.5 g/dL (32.0-36.0); Mean Corpuscular Hemoglobin 31.5 pg (27.0-31.0); Mean Corpuscular Volume 96.9 fL (78.0-98.0); Mean Platelet Volume 9.3 fL (7.4-10.4); Platelet Count 89 thou/uL (130-400); RBC Distribution Width 12.9 % (11.5-14.5); Red Blood Cell (RBC) Count 2.33 mill/uL (4.20-5.40); White Blood Cell (WBC) Count 5.7 thou/uL (4.8-10.8)
--- NOTE | 2019-11-07 10:49 | ULT ---
Sonographic guided paracentesis HISTORY: Recurrent ascites. FINDINGS: After explaining the procedure and answering all questions, sonographic survey shows a larg e amount of free fluid throughout the abdomen. Sterile technique, buffered local anesthesia, sonographic guidance, and a right lateral approach were used to carefully advance a 19-gauge Yueh nee dle and catheter into the free fluid. Catheter was left to drain a total volume of 7.0 L slightly cloudy light yellow liquid. Small amount of fluid remains after catheter removed. Patient is limited to 7 L drainage. Patient tolerated the procedure well and was dismissed in good condition. IMPRESSION: Technically successful sonographic guided paracentesis.
[2019-11-07] MEDS ORDERED: Albumin 25% 200 ML ONE (10:51)
[2019-11-07 11:02] LABS: ALT (SGPT) 13 U/L (8-55); AST (SGOT) 24 U/L (5-34); Albumin 2.7 g/dL (3.5-5.0); Alkaline Phosphatase 113 U/L (40-110); Anion Gap 12 mmol/L (10-20); BUN (Urea Nitrogen) 15 mg/dL (9.8-20.1); Bilirubin, Total 1.2 mg/dL (0.2-1.2); Calc. Creatinine Clearance 61 mL/min (70-130); Calcium 7.6 mg/dL (7.8-10.44); Carbon Dioxide 20 mmol/L (22-29); Chloride 103 mmol/L (98-107); Estimated GFR-MDRD 34; Globulin 2.1 g/dL (2.4-3.5); Glucose 265 mg/dL (70-105); Potassium 4.3 mmol/L (3.5-5.1); Protein, Total 4.8 g/dL (6.0-8.3); Sodium 131 mmol/L (136-145)
[2019-11-07 11:13] VITALS: BP 109/60; TEMP 98.2
== END 2019-11-07 10:45 | disposition home or self-care (01) ==
LOC: ULT 08:52
PROVIDERS: ATTEND Internal Medicine Gastroenterology
PROC: BW40ZZZ Ultrasonography of Abdomen (ICD-10-PCS; principal; 2019-11-07)
PROC: 0W9G3ZZ Drainage of Peritoneal Cavity, Percutaneous Approach (ICD-10-PCS; principal; 2019-11-07)
DX: K74.60 Unspecified cirrhosis of liver (principal); R18.8 Other ascites; I12.9 Hypertensive chronic kidney disease with stage 1 through stage 4 chronic kidney disease, or unspecified chronic kidney disease; E11.22 Type 2 diabetes mellitus with diabetic chronic kidney disease; N18.9 Chronic kidney disease, unspecified; D63.1 Anemia in chronic kidney disease; J44.9 Chronic obstructive pulmonary disease, unspecified; K21.9 Gastro-esophageal reflux disease without esophagitis; Z79.899 Other long term (current) drug therapy; Z87.891 Personal history of nicotine dependence; Z88.0 Allergy status to penicillin; Z88.2 Allergy status to sulfonamides; Z88.5 Allergy status to narcotic agent; Z88.6 Allergy status to analgesic agent; Z88.8 Allergy status to other drugs, medicaments and biological substances; Z91.018 Allergy to other foods
CPT/HCPCS: 49083; 80053; 85025; 85610; J1642; J2001; P9047

== ENCOUNTER 2019-11-14 09:25 | Day surgery (SDC) | payer OTHER ==
[2019-11-14] MEDS ORDERED: Lidocaine 1% PF 5 ML VIAL ONE (09:47)
[2019-11-14] MEDS ORDERED: Albumin 25% 200 ML ONE (09:47)
[2019-11-14] MEDS ORDERED: Sodium Chloride 0.9% 20 ML ONE (09:48)
[2019-11-14 11:05] LABS: Hemoglobin 7.8 g/dL (12.0-16.0); Mean Corpuscular HGB CONC 32.6 g/dL (32.0-36.0); Mean Corpuscular Hemoglobin 31.6 pg (27.0-31.0); Mean Corpuscular Volume 97.1 fL (78.0-98.0); Mean Platelet Volume 9.3 fL (7.4-10.4); Platelet Count 76 thou/uL (130-400); RBC Distribution Width 12.5 % (11.5-14.5); Red Blood Cell (RBC) Count 2.47 mill/uL (4.20-5.40); White Blood Cell (WBC) Count 4.7 thou/uL (4.8-10.8)
[2019-11-14 11:14] LABS: INR-International Normal Ratio 1.3; Prothrombin Time 16.5 SEC (12.0-14.7)
[2019-11-14 11:16] LABS: ALT (SGPT) 13 U/L (8-55); AST (SGOT) 23 U/L (5-34); Albumin 2.9 g/dL (3.5-5.0); Alkaline Phosphatase 103 U/L (40-110); Anion Gap 10 mmol/L (10-20); BUN (Urea Nitrogen) 19 mg/dL (9.8-20.1); Bilirubin, Total 1.2 mg/dL (0.2-1.2); Calc. Creatinine Clearance 0 mL/min (70-130); Calcium 7.9 mg/dL (7.8-10.44); Carbon Dioxide 20 mmol/L (22-29); Chloride 104 mmol/L (98-107); Estimated GFR-MDRD 36; Globulin 2.2 g/dL (2.4-3.5); Glucose 284 mg/dL (70-105); Potassium 3.7 mmol/L (3.5-5.1); Protein, Total 5.1 g/dL (6.0-8.3); Sodium 130 mmol/L (136-145)
[2019-11-14 11:32] LABS: Band 3 % (5-11); Eosinophils 10 % (0-10); Lymphocytes 12 % (21-51); MDiff Complete? YES; Monocytes 15 % (0-10); Neutrophil 58 % (42-75); Platelet Morphology Comment Appears Decreased; Polychromasia SLIGHT = 2-3 cells (100X) (0-2/hpf); RBC Morphology Normal
--- NOTE | 2019-11-14 11:55 | ULT ---
Exam: Ultrasound guided paracentesis HISTORY: Ascites COMPARISON: 11/07/2019 FINDINGS: Successful ultrasound-guided paracentesis. Total of 7 L of yellow color ascites was aspirat ed. TECHNIQUE: Consent obtained reformatory ultrasound-guided paracentesis. Right lower quadrant was deem ed appropriate. Skin was prepped and draped in a sterile fashion. 1% lidocaine, buffered with sodium bicarbonate was used for local anesthesia. Under ultrasound guidance, a 5 Portuguese 7 cm Yueh cat heter is advanced in the peritoneal space. A total of 7 L of yellow color ascites was aspirated. No immediate or postprocedural complications IMPRESSION: Successful ultrasound-guided paracentesis.
[2019-11-14 12:19] VITALS: BP 106/61; TEMP 97.7
[2019-11-14 12:30] LABS: Amphetamine Not Detected (NotDetected); Barbiturates Screen Not Detected (NotDetected); Benzodiazepine Screen Not Detected (NotDetected); Cocaine Metabolite Screen Not Detected (NotDetected); Medtox Control Line Valid? VALID (VALID); Medtox Reader # READER 4; Methadone Not Detected (NotDetected); Methamphetamine Not Detected (NotDetected); Opiate Screen Not Detected (NotDetected); Oxycodone Screen Not Detected (NotDetected); Phencyclidine (PCP) Not Detected (NotDetected); THC/Cannabinoid Screen Not Detected (NotDetected); Tricyclic Screen Not Detected (NotDetected)
== END 2019-11-14 11:45 | disposition home or self-care (01) ==
LOC: ULT 09:25
PROVIDERS: ATTEND Internal Medicine Gastroenterology
PROC: BW40ZZZ Ultrasonography of Abdomen (ICD-10-PCS; principal; 2019-11-14)
PROC: 0W9G3ZZ Drainage of Peritoneal Cavity, Percutaneous Approach (ICD-10-PCS; principal; 2019-11-14)
DX: K74.60 Unspecified cirrhosis of liver (principal); R18.8 Other ascites; I12.9 Hypertensive chronic kidney disease with stage 1 through stage 4 chronic kidney disease, or unspecified chronic kidney disease; E11.22 Type 2 diabetes mellitus with diabetic chronic kidney disease; N18.9 Chronic kidney disease, unspecified; D63.1 Anemia in chronic kidney disease; J44.9 Chronic obstructive pulmonary disease, unspecified; Z79.899 Other long term (current) drug therapy; Z87.891 Personal history of nicotine dependence; Z88.0 Allergy status to penicillin; Z88.2 Allergy status to sulfonamides; Z88.5 Allergy status to narcotic agent; Z88.6 Allergy status to analgesic agent; Z88.8 Allergy status to other drugs, medicaments and biological substances; Z91.018 Allergy to other foods
CPT/HCPCS: 36592; 49083; 80053; 80306; 85025; 99211; G0463; J1642; J2001; P9047

== ENCOUNTER 2019-11-21 09:51 | Day surgery (SDC) | payer OTHER ==
[~2019-11-21 09:51] MED LIST changes: +Albumin 25% 200 ML ONE; -FLU VACC QS2019-20(6MOS UP)/PF 60 MCG/0.5 ML SYRINGE IM ONE; +Lidocaine 1% PF 5 ML VIAL ONE; +Sodium Bicarbonate 2.5 MEQ/5 ML VIAL ONE; +Sodium Chloride 0.9% 20 ML ONE
[2019-11-21 10:39] LABS: #Eosinphils 0.3 thou/uL (0.0-0.7); #Lymphocytes 0.4 thou/uL (1.20-3.40); #Monocytes 0.4 thou/uL (0.11-0.59); %Basophils 0.5 % (0.0-1.0); %Eosinophils 8.8 % (0.0-10.0); %Lymphocytes 12.9 % (21.0-51.0); %Monocytes 14.1 % (0.0-10.0); %Neutrophils 63.7 % (42.0-75.0); Hemoglobin 7.8 g/dL (12.0-16.0); Mean Corpuscular HGB CONC 32.5 g/dL (32.0-36.0); Mean Corpuscular Hemoglobin 30.7 pg (27.0-31.0); Mean Corpuscular Volume 94.6 fL (78.0-98.0); Mean Platelet Volume 9.9 fL (7.4-10.4); Platelet Count 66 thou/uL (130-400); RBC Distribution Width 12.2 % (11.5-14.5); Red Blood Cell (RBC) Count 2.53 mill/uL (4.20-5.40); White Blood Cell (WBC) Count 3.1 thou/uL (4.8-10.8)
[2019-11-21 10:44] LABS: INR-International Normal Ratio 1.4; Prothrombin Time 17.2 SEC (12.0-14.7)
[2019-11-21 11:09] LABS: ALT (SGPT) 12 U/L (8-55); AST (SGOT) 22 U/L (5-34); Albumin 2.6 g/dL (3.5-5.0); Alkaline Phosphatase 96 U/L (40-110); Anion Gap 9 mmol/L (10-20); BUN (Urea Nitrogen) 16 mg/dL (9.8-20.1); Bilirubin, Total 1.1 mg/dL (0.2-1.2); Calc. Creatinine Clearance 0 mL/min (70-130); Carbon Dioxide 22 mmol/L (22-29); Chloride 103 mmol/L (98-107); Estimated GFR-MDRD 37; Globulin 2.3 g/dL (2.4-3.5); Glucose 221 mg/dL (70-105); Protein, Total 4.9 g/dL (6.0-8.3); Sodium 130 mmol/L (136-145)
--- NOTE | 2019-11-21 11:31 | ULT ---
Ultrasound-guided paracentesis: HISTORY: Cirrhosis and recurrent ascites. FINDINGS: Informed consent obtained prior to the procedure. Preprocedural imaging demonstrated intrap eritoneal free fluid. An area was marked in the right mid abdomen in the mid axillary line, and then meticulously prepped a nd draped in normal sterile fashion and anesthetized with 1% buffered lidocaine. With direct sonographic guidance, a 19-gauge needle and 5 [place] catheter were advanced into the abdomen. After the return of fluid, the catheter was advanced, and the needle was removed. Approximately 7 L of slightly cloudy yellow-colored fluid was aspirated. The introducer sheath was re moved, and hemostasis was achieved with direct pressure. A dry sterile dressing was placed. The patient tolerated the procedure well and without immediate complication. Moderate to large amount of intraperitoneal free fluid persists after paracentesis. IMPRESSION: Technically successful ultrasound-guided paracentesis.
[2019-11-21 11:45] LABS: Follow-up Chemistry Comp? YES; Follow-up Hematology Comp? YES; Follow-up Result - Chemistry REPORT FAXED; Follow-up Result - Hematology REPORT FAXED
[2019-11-21 15:25] VITALS: BP 98/66; TEMP 98.2
== END 2019-11-21 11:30 | disposition home or self-care (01) ==
LOC: ULT 09:51
PROVIDERS: ATTEND Internal Medicine Gastroenterology
PROC: 0W9G3ZZ Drainage of Peritoneal Cavity, Percutaneous Approach (ICD-10-PCS; principal; 2019-11-21)
DX: K74.60 Unspecified cirrhosis of liver (principal); R18.8 Other ascites; J44.9 Chronic obstructive pulmonary disease, unspecified; M19.90 Unspecified osteoarthritis, unspecified site; I12.9 Hypertensive chronic kidney disease with stage 1 through stage 4 chronic kidney disease, or unspecified chronic kidney disease; E11.22 Type 2 diabetes mellitus with diabetic chronic kidney disease; N18.9 Chronic kidney disease, unspecified; G89.29 Other chronic pain; M54.9 Dorsalgia, unspecified; K21.9 Gastro-esophageal reflux disease without esophagitis; Z79.899 Other long term (current) drug therapy; Z88.0 Allergy status to penicillin; Z88.2 Allergy status to sulfonamides; Z88.5 Allergy status to narcotic agent; Z88.6 Allergy status to analgesic agent; Z88.8 Allergy status to other drugs, medicaments and biological substances; Z91.018 Allergy to other foods; Z91.048 Other nonmedicinal substance allergy status
CPT/HCPCS: 49083; 80053; 85025; 85610; J1642; J2001; P9047

== ENCOUNTER 2019-11-28 09:48 | Day surgery (SDC) | payer OTHER ==
[2019-11-27 08:57] VITALS: BMI 31.3
[2019-11-28 10:13] LABS: Hemoglobin 8.6 g/dL (12.0-16.0)
[2019-11-28 10:29] LABS: Anion Gap 9 mmol/L (10-20); BUN (Urea Nitrogen) 11 mg/dL (9.8-20.1); Calc. Creatinine Clearance 72 mL/min (70-130); Carbon Dioxide 23 mmol/L (22-29); Chloride 106 mmol/L (98-107); Estimated GFR-MDRD 43; Glucose 159 mg/dL (70-105); Potassium 3.6 mmol/L (3.5-5.1); Sodium 134 mmol/L (136-145)
[2019-11-28 12:53] VITALS: BP 105/61; TEMP 97.8
== END 2019-11-28 11:05 | disposition home or self-care (01) ==
LOC: ULT 09:48
PROVIDERS: ATTEND Internal Medicine Gastroenterology
PROC: 0W9G3ZZ Drainage of Peritoneal Cavity, Percutaneous Approach (ICD-10-PCS; principal; 2019-11-28)
DX: K74.60 Unspecified cirrhosis of liver (principal); R18.8 Other ascites; Z79.899 Other long term (current) drug therapy; Z88.0 Allergy status to penicillin; Z88.2 Allergy status to sulfonamides; Z88.5 Allergy status to narcotic agent; Z88.6 Allergy status to analgesic agent; Z88.8 Allergy status to other drugs, medicaments and biological substances; Z91.018 Allergy to other foods; Z91.048 Other nonmedicinal substance allergy status
CPT/HCPCS: 80048; 85014; 85018

== ENCOUNTER 2019-12-05 09:15 | Day surgery (SDC) | payer OTHER ==
[2019-12-05] MEDS ORDERED: Sodium Bicarbonate 2.5 MEQ/5 ML VIAL ONE (09:45)
[2019-12-05] MEDS ORDERED: Lidocaine 1% PF 5 ML VIAL ONE (09:45)
[2019-12-05] MEDS ORDERED: Albumin 25% 200 ML ONE (09:45)
[2019-12-05] MEDS ORDERED: Sodium Chloride 0.9% 10 ML ONE (10:45)
[2019-12-05 10:57] LABS: ALT (SGPT) 12 U/L (8-55); AST (SGOT) 25 U/L (5-34); Albumin 2.8 g/dL (3.5-5.0); Alkaline Phosphatase 110 U/L (40-110); Anion Gap 10 mmol/L (10-20); BUN (Urea Nitrogen) 17 mg/dL (9.8-20.1); Bilirubin, Total 0.9 mg/dL (0.2-1.2); Calc. Creatinine Clearance 0 mL/min (70-130); Calcium 7.9 mg/dL (7.8-10.44); Carbon Dioxide 22 mmol/L (22-29); Chloride 106 mmol/L (98-107); Estimated GFR-MDRD 38; Globulin 2.4 g/dL (2.4-3.5); Glucose 191 mg/dL (70-105); Protein, Total 5.2 g/dL (6.0-8.3); Sodium 134 mmol/L (136-145)
[2019-12-05 11:25] VITALS: BP 91/55; TEMP 98
--- NOTE | 2019-12-05 12:32 | ULT ---
Sonographic guided paracentesis HISTORY: Recurrent ascites. FINDINGS: After explaining the procedure and answering all questions, sonographic survey shows a larg e amount of free fluid throughout the abdomen. Sterile technique, buffered local anesthesia, sonographic guidance, and a left lateral approach were used to carefully advance a 19-gauge Yueh need le and catheter into the free fluid. Catheter was left to drain a total volume of 7.0 L clear yellow liquid. Patient is limited to 7 L. Catheter was removed with large amount of free fluid remain ing. Patient tolerated the procedure well and was dismissed in good condition. IMPRESSION : Technically successful sonographic guided paracentesis.
== END 2019-12-05 11:15 | disposition home or self-care (01) ==
LOC: ULT 09:15
PROVIDERS: ATTEND Internal Medicine Gastroenterology
PROC: 0W9G3ZZ Drainage of Peritoneal Cavity, Percutaneous Approach (ICD-10-PCS; principal; 2019-12-05)
PROC: BW40ZZZ Ultrasonography of Abdomen (ICD-10-PCS; principal; 2019-12-05)
DX: K74.60 Unspecified cirrhosis of liver (principal); R18.8 Other ascites; I12.9 Hypertensive chronic kidney disease with stage 1 through stage 4 chronic kidney disease, or unspecified chronic kidney disease; E11.22 Type 2 diabetes mellitus with diabetic chronic kidney disease; N18.9 Chronic kidney disease, unspecified; J44.9 Chronic obstructive pulmonary disease, unspecified; F17.200 Nicotine dependence, unspecified, uncomplicated; F41.9 Anxiety disorder, unspecified; F32.9 Major depressive disorder, single episode, unspecified; D63.1 Anemia in chronic kidney disease; M19.90 Unspecified osteoarthritis, unspecified site; Z88.0 Allergy status to penicillin; Z88.2 Allergy status to sulfonamides; Z88.5 Allergy status to narcotic agent; Z88.6 Allergy status to analgesic agent; Z88.8 Allergy status to other drugs, medicaments and biological substances; Z91.018 Allergy to other foods; Z91.048 Other nonmedicinal substance allergy status
CPT/HCPCS: 49083; 80053; J1642; J2001; P9047

== ENCOUNTER 2019-12-12 09:07 | Day surgery (SDC) | payer OTHER ==
[2019-12-11 10:57] VITALS: BMI 30.5
[2019-12-12] MEDS ORDERED: Sodium Bicarbonate 2.5 MEQ/5 ML VIAL ONE (09:09)
[2019-12-12] MEDS ORDERED: Lidocaine 1% PF 5 ML VIAL ONE (09:09)
[2019-12-12] MEDS ORDERED: Sodium Chloride 0.9% 20 ML ONE (09:09)
[2019-12-12] MEDS ORDERED: Albumin 25% 200 ML ONE (09:09)
[2019-12-12 10:04] LABS: Hemoglobin 9.2 g/dL (12.0-16.0); Mean Corpuscular HGB CONC 32.3 g/dL (32.0-36.0); Mean Corpuscular Hemoglobin 29.9 pg (27.0-31.0); Mean Corpuscular Volume 92.5 fL (78.0-98.0); Mean Platelet Volume 11.1 fL (7.4-10.4); Platelet Count 68 thou/uL (130-400); RBC Distribution Width 12.5 % (11.5-14.5); Red Blood Cell (RBC) Count 3.08 mill/uL (4.20-5.40); White Blood Cell (WBC) Count 3.4 thou/uL (4.8-10.8)
[2019-12-12 10:08] LABS: INR-International Normal Ratio 1.3; Prothrombin Time 16.4 SEC (12.0-14.7)
[2019-12-12 10:18] LABS: ALT (SGPT) 14 U/L (8-55); AST (SGOT) 25 U/L (5-34); Albumin 2.9 g/dL (3.5-5.0); Alkaline Phosphatase 109 U/L (40-110); Anion Gap 11 mmol/L (10-20); BUN (Urea Nitrogen) 14 mg/dL (9.8-20.1); Bilirubin, Total 1.2 mg/dL (0.2-1.2); Calc. Creatinine Clearance 68 mL/min (70-130); Carbon Dioxide 20 mmol/L (22-29); Chloride 107 mmol/L (98-107); Estimated GFR-MDRD 41; Globulin 2.5 g/dL (2.4-3.5); Glucose 207 mg/dL (70-105); Potassium 3.7 mmol/L (3.5-5.1); Protein, Total 5.4 g/dL (6.0-8.3); Sodium 134 mmol/L (136-145)
[2019-12-12 11:12] LABS: Band 6 % (5-11); Eosinophils 15 % (0-10); Lymphocytes 20 % (21-51); MDiff Complete? YES; Monocytes 7 % (0-10); Neutrophil 50 % (42-75); Platelet Morphology Comment Appears Decreased; RBC Morphology Normal; Reactive Lymphocytes 1 % (0-10)
[2019-12-12 14:07] VITALS: BP 111/63; TEMP 97.5
--- NOTE | 2019-12-12 15:09 | ULT ---
ULTRASOUND-GUIDED PARACENTESIS THERAPEUTIC: DATE: 12/12/2019 HISTORY: 54-year-old female with symptomatic ascites due to cirrhosis: Abdominal distention TECHNIQUE: Signed informed consent obtained. A four-quadrant survey of abdomen performed. Site selected for puncture: Left lower quadrant. Overlying skin prepared and draped in usual sterile fashion. 25-gauge needle used to apply buffered lidocaine superficially and deeply. 5 German Yueh catheter with stylette advanced into the pocket of free intraperitoneal fluid. After drainage, the Yueh catheter was removed. Patient tolerated the procedure well. No complications. FINDINGS: Volume of ascites prior to procedure:large. Volume of ascites fluid in the drainage pocket after drainage:Minimal. Volume of ascites fluid drained:7000 mL Appearance of ascites fluid:Straw-colored. IMPRESSION: Successful therapeutic paracentesis, with drainage of 7 L of ascites fluid.
== END 2019-12-12 10:43 | disposition home or self-care (01) ==
LOC: ULT 09:07
PROVIDERS: ATTEND Internal Medicine Gastroenterology
PROC: 0W9G3ZZ Drainage of Peritoneal Cavity, Percutaneous Approach (ICD-10-PCS; principal; 2019-12-12)
DX: K74.60 Unspecified cirrhosis of liver (principal); R18.8 Other ascites; J44.9 Chronic obstructive pulmonary disease, unspecified; I12.9 Hypertensive chronic kidney disease with stage 1 through stage 4 chronic kidney disease, or unspecified chronic kidney disease; E11.22 Type 2 diabetes mellitus with diabetic chronic kidney disease; N18.9 Chronic kidney disease, unspecified; M19.90 Unspecified osteoarthritis, unspecified site; K21.9 Gastro-esophageal reflux disease without esophagitis; Z79.899 Other long term (current) drug therapy; Z88.0 Allergy status to penicillin; Z88.2 Allergy status to sulfonamides; Z88.5 Allergy status to narcotic agent; Z88.6 Allergy status to analgesic agent; Z88.8 Allergy status to other drugs, medicaments and biological substances; Z91.018 Allergy to other foods; Z91.048 Other nonmedicinal substance allergy status
CPT/HCPCS: 49083; 80053; 85025; 85610; J1642; J2001; P9047

== ENCOUNTER 2019-12-19 08:59 | Day surgery (SDC) | payer OTHER ==
[2019-12-19] MEDS ORDERED: Sodium Bicarbonate 2.5 MEQ/5 ML VIAL ONE (09:31)
[2019-12-19] MEDS ORDERED: Sodium Chloride 0.9% 10 ML ONE (09:31)
[2019-12-19 10:09] LABS: #Eosinphils 0.4 thou/uL (0.0-0.7); #Lymphocytes 0.6 thou/uL (1.20-3.40); #Monocytes 0.4 thou/uL (0.11-0.59); #Neutrophils 1.9 thou/uL (1.40-6.50); %Basophils 0.6 % (0.0-1.0); %Eosinophils 12.9 % (0.0-10.0); %Lymphocytes 17.8 % (21.0-51.0); %Monocytes 12.4 % (0.0-10.0); %Neutrophils 56.3 % (42.0-75.0); Hemoglobin 8.7 g/dL (12.0-16.0); Mean Corpuscular HGB CONC 32.7 g/dL (32.0-36.0); Mean Corpuscular Volume 91.7 fL (78.0-98.0); Mean Platelet Volume 10.7 fL (7.4-10.4); Platelet Count 72 thou/uL (130-400); RBC Distribution Width 12.8 % (11.5-14.5); Red Blood Cell (RBC) Count 2.91 mill/uL (4.20-5.40); White Blood Cell (WBC) Count 3.5 thou/uL (4.8-10.8)
[2019-12-19 10:17] LABS: INR-International Normal Ratio 1.4; Prothrombin Time 17.5 SEC (12.0-14.7)
[2019-12-19 10:32] LABS: ALT (SGPT) 12 U/L (8-55); AST (SGOT) 21 U/L (5-34); Albumin 2.8 g/dL (3.5-5.0); Alkaline Phosphatase 96 U/L (40-110); Anion Gap 9 mmol/L (10-20); BUN (Urea Nitrogen) 12 mg/dL (9.8-20.1); Bilirubin, Total 1.2 mg/dL (0.2-1.2); Calc. Creatinine Clearance 0 mL/min (70-130); Calcium 8.2 mg/dL (7.8-10.44); Carbon Dioxide 21 mmol/L (22-29); Chloride 109 mmol/L (98-107); Estimated GFR-MDRD 42; Globulin 2.3 g/dL (2.4-3.5); Glucose 175 mg/dL (70-105); Potassium 3.5 mmol/L (3.5-5.1); Protein, Total 5.1 g/dL (6.0-8.3); Sodium 135 mmol/L (136-145)
[2019-12-19] MEDS ORDERED: Albumin 25% 200 ML ONE (10:35)
[2019-12-19 10:41] LABS: Follow-up Chemistry Comp? YES; Follow-up Hematology Comp? YES; Follow-up Result - Chemistry REPORT FAXED; Follow-up Result - Hematology REPORT FAXED
--- NOTE | 2019-12-19 11:09 | ULT ---
Exam: Ultrasound guided paracentesis HISTORY: Ascites COMPARISON: 12/12/2019 FINDINGS: Successful ultrasound-guided paracentesis. Total of 4800 mL of clear ascites was aspirated. TECHNIQUE: Consent obtained reformatory ultrasound-guided paracentesis. Right lower quadrant was deem ed appropriate. Skin was prepped and draped in a sterile fashion. 1% lidocaine, buffered with sodium bicarbonate was used for local anesthesia. Under ultrasound guidance, a 5 Lao 7 cm Yueh cat heter is advanced in the peritoneal space. A total of 4800 mL of clear ascites was aspirated. No immediate or postprocedural complications IMPRESSION: Successful ultrasound-guided paracentesis.
[2019-12-19 12:12] VITALS: BMI 26.6
[2019-12-19 12:14] VITALS: BP 115/51; TEMP 97.9
== END 2019-12-19 11:00 | disposition home or self-care (01) ==
LOC: ULT 08:59
PROVIDERS: ATTEND Internal Medicine Gastroenterology
PROC: 0W9G3ZZ Drainage of Peritoneal Cavity, Percutaneous Approach (ICD-10-PCS; principal; 2019-12-19)
DX: K74.60 Unspecified cirrhosis of liver (principal); R18.8 Other ascites; J44.9 Chronic obstructive pulmonary disease, unspecified; I12.9 Hypertensive chronic kidney disease with stage 1 through stage 4 chronic kidney disease, or unspecified chronic kidney disease; E11.22 Type 2 diabetes mellitus with diabetic chronic kidney disease; N18.9 Chronic kidney disease, unspecified; F41.9 Anxiety disorder, unspecified; F32.9 Major depressive disorder, single episode, unspecified; M19.90 Unspecified osteoarthritis, unspecified site; G89.29 Other chronic pain; M54.9 Dorsalgia, unspecified; F17.200 Nicotine dependence, unspecified, uncomplicated; Z79.899 Other long term (current) drug therapy; Z88.0 Allergy status to penicillin; Z88.2 Allergy status to sulfonamides; Z88.5 Allergy status to narcotic agent; Z88.6 Allergy status to analgesic agent; Z88.8 Allergy status to other drugs, medicaments and biological substances; Z91.018 Allergy to other foods; Z91.048 Other nonmedicinal substance allergy status
CPT/HCPCS: 49083; 80053; 85025; 85610; J1642; P9047

== ENCOUNTER 2019-12-26 09:11 | Day surgery (SDC) | payer OTHER ==
[2019-12-25 11:57] VITALS: BMI 29.0
[2019-12-26] MEDS ORDERED: Sodium Bicarbonate 2.5 MEQ/5 ML VIAL ONE (09:26)
[2019-12-26] MEDS ORDERED: Albumin 25% 200 ML ONE (09:26)
[2019-12-26] MEDS ORDERED: Lidocaine 1% PF 5 ML VIAL ONE ×2 (09:26)
[2019-12-26] MEDS ORDERED: Sodium Chloride 0.9% 20 ML ONE (09:36)
[2019-12-26 10:16] LABS: #Eosinphils 0.4 thou/uL (0.0-0.7); #Lymphocytes 0.4 thou/uL (1.20-3.40); #Monocytes 0.4 thou/uL (0.11-0.59); #Neutrophils 1.4 thou/uL (1.40-6.50); %Basophils 1.3 % (0.0-1.0); %Eosinophils 15.9 % (0.0-10.0); %Lymphocytes 14.6 % (21.0-51.0); %Monocytes 14.4 % (0.0-10.0); %Neutrophils 53.9 % (42.0-75.0); Hemoglobin 8.4 g/dL (12.0-16.0); Mean Corpuscular HGB CONC 31.9 g/dL (32.0-36.0); Mean Corpuscular Hemoglobin 29.4 pg (27.0-31.0); Mean Corpuscular Volume 92.2 fL (78.0-98.0); Mean Platelet Volume 11.6 fL (7.4-10.4); Platelet Count 60 thou/uL (130-400); RBC Distribution Width 13.4 % (11.5-14.5); Red Blood Cell (RBC) Count 2.85 mill/uL (4.20-5.40); White Blood Cell (WBC) Count 2.5 thou/uL (4.8-10.8)
[2019-12-26 10:21] LABS: INR-International Normal Ratio 1.4; Prothrombin Time 17.3 SEC (12.0-14.7)
[2019-12-26 10:29] LABS: ALT (SGPT) 12 U/L (8-55); AST (SGOT) 23 U/L (5-34); Albumin 2.7 g/dL (3.5-5.0); Alkaline Phosphatase 102 U/L (40-110); Anion Gap 11 mmol/L (10-20); BUN (Urea Nitrogen) 12 mg/dL (9.8-20.1); Bilirubin, Total 1.1 mg/dL (0.2-1.2); Calc. Creatinine Clearance 59 mL/min (70-130); Carbon Dioxide 20 mmol/L (22-29); Chloride 108 mmol/L (98-107); Estimated GFR-MDRD 37; Globulin 2.2 g/dL (2.4-3.5); Glucose 278 mg/dL (70-105); Protein, Total 4.9 g/dL (6.0-8.3); Sodium 135 mmol/L (136-145)
--- NOTE | 2019-12-26 11:10 | ULT ---
ULTRASOUND-GUIDED PARACENTESIS THERAPEUTIC: DATE: 12/26/2019 HISTORY: 54-year-old female with symptomatic ascites due to cirrhosis: Abdominal distention TECHNIQUE: Signed informed consent obtained. A four-quadrant survey of abdomen performed. Site selected for puncture: Left lower quadrant Overlying skin prepared and draped in usual sterile fashion. 25-gauge needle used to apply buffered lidocaine superficially and deeply. 5 Micronesian Yueh catheter with stylette advanced into the pocket of free intraperitoneal fluid. After drainage, the Yueh catheter was removed. Patient tolerated the procedure well. No complications. FINDINGS: Volume of ascites prior to procedure:large. Volume of ascites fluid in the drainage pocket after drainage:Very small. Volume of ascites fluid drained:6500 mL Appearance of ascites fluid:nonhemorrhagic, straw-colored. IMPRESSION: Successful therapeutic paracentesis, with drainage of 6.5 L of ascites fluid.
[2019-12-26 11:24] VITALS: BP 103/55; TEMP 97.9
== END 2019-12-26 11:00 | disposition home or self-care (01) ==
LOC: ULT 09:11
PROVIDERS: ATTEND Internal Medicine Gastroenterology
PROC: 0W9G3ZZ Drainage of Peritoneal Cavity, Percutaneous Approach (ICD-10-PCS; principal; 2019-12-26)
DX: K74.60 Unspecified cirrhosis of liver (principal); R18.8 Other ascites; J44.9 Chronic obstructive pulmonary disease, unspecified; F41.9 Anxiety disorder, unspecified; F32.9 Major depressive disorder, single episode, unspecified; M19.90 Unspecified osteoarthritis, unspecified site; G89.29 Other chronic pain; M54.9 Dorsalgia, unspecified; I12.9 Hypertensive chronic kidney disease with stage 1 through stage 4 chronic kidney disease, or unspecified chronic kidney disease; E11.22 Type 2 diabetes mellitus with diabetic chronic kidney disease; N18.9 Chronic kidney disease, unspecified; F17.200 Nicotine dependence, unspecified, uncomplicated; Z79.899 Other long term (current) drug therapy; Z88.0 Allergy status to penicillin; Z88.2 Allergy status to sulfonamides; Z88.5 Allergy status to narcotic agent; Z88.6 Allergy status to analgesic agent; Z88.8 Allergy status to other drugs, medicaments and biological substances; Z91.018 Allergy to other foods
CPT/HCPCS: 49083; 80053; 85025; 85610; J1642; J2001; P9047

== ENCOUNTER 2020-01-02 09:11 | Day surgery (SDC) | payer OTHER ==
[2020-01-02] MEDS ORDERED: Lidocaine 1% PF 5 ML VIAL ONE (09:24)
[2020-01-02] MEDS ORDERED: Albumin 25% 200 ML ONE (09:24)
[2020-01-02 10:22] LABS: #Eosinphils 0.4 thou/uL (0.0-0.7); #Lymphocytes 0.6 thou/uL (1.20-3.40); #Monocytes 0.4 thou/uL (0.11-0.59); #Neutrophils 2.3 thou/uL (1.40-6.50); %Eosinophils 10.2 % (0.0-10.0); %Lymphocytes 14.9 % (21.0-51.0); %Monocytes 11.2 % (0.0-10.0); %Neutrophils 62.8 % (42.0-75.0); Hemoglobin 8.7 g/dL (12.0-16.0); Mean Corpuscular HGB CONC 31.8 g/dL (32.0-36.0); Mean Corpuscular Hemoglobin 29.2 pg (27.0-31.0); Mean Corpuscular Volume 91.9 fL (78.0-98.0); Mean Platelet Volume 11.8 fL (7.4-10.4); Platelet Count 67 thou/uL (130-400); RBC Distribution Width 13.4 % (11.5-14.5); Red Blood Cell (RBC) Count 2.99 mill/uL (4.20-5.40); White Blood Cell (WBC) Count 3.7 thou/uL (4.8-10.8)
[2020-01-02 10:28] LABS: INR-International Normal Ratio 1.3; Prothrombin Time 15.9 SEC (12.0-14.7)
[2020-01-02] MEDS ORDERED: Sodium Chloride 0.9% 10 ML ONE (10:32)
[2020-01-02 10:44] LABS: ALT (SGPT) 9 U/L (8-55); AST (SGOT) 18 U/L (5-34); Albumin 2.9 g/dL (3.5-5.0); Alkaline Phosphatase 114 U/L (40-110); Anion Gap 11 mmol/L (10-20); BUN (Urea Nitrogen) 17 mg/dL (9.8-20.1); Bilirubin, Total 1.2 mg/dL (0.2-1.2); Calc. Creatinine Clearance 0 mL/min (70-130); Carbon Dioxide 22 mmol/L (22-29); Chloride 106 mmol/L (98-107); Estimated GFR-MDRD 34; Globulin 2.4 g/dL (2.4-3.5); Glucose 189 mg/dL (70-105); Protein, Total 5.3 g/dL (6.0-8.3); Sodium 135 mmol/L (136-145)
[2020-01-02 13:19] VITALS: BP 100/57; TEMP 97.7
== END 2020-01-02 10:50 | disposition home or self-care (01) ==
LOC: ULT 09:11
PROVIDERS: ATTEND Internal Medicine Gastroenterology
PROC: 0W9G3ZZ Drainage of Peritoneal Cavity, Percutaneous Approach (ICD-10-PCS; principal; 2020-01-02)
DX: K74.60 Unspecified cirrhosis of liver (principal); R18.8 Other ascites; I12.9 Hypertensive chronic kidney disease with stage 1 through stage 4 chronic kidney disease, or unspecified chronic kidney disease; E11.22 Type 2 diabetes mellitus with diabetic chronic kidney disease; N18.9 Chronic kidney disease, unspecified; D63.1 Anemia in chronic kidney disease; J44.9 Chronic obstructive pulmonary disease, unspecified; F41.9 Anxiety disorder, unspecified; F32.9 Major depressive disorder, single episode, unspecified; M19.90 Unspecified osteoarthritis, unspecified site; G89.29 Other chronic pain; M54.9 Dorsalgia, unspecified; F17.200 Nicotine dependence, unspecified, uncomplicated; Z88.0 Allergy status to penicillin; Z88.5 Allergy status to narcotic agent; Z88.6 Allergy status to analgesic agent; Z91.018 Allergy to other foods; Z91.048 Other nonmedicinal substance allergy status
CPT/HCPCS: 80053; 85025; 85610; J1642; J2001; P9047

== ENCOUNTER 2020-01-09 09:38 | Day surgery (SDC) | payer OTHER ==
[2020-01-09] MEDS ORDERED: Sodium Chloride 0.9% 20 ML ONE ×2 (09:42→09:49)
[2020-01-09] MEDS ORDERED: Lidocaine 1% PF 5 ML VIAL ONE (09:42)
[2020-01-09] MEDS ORDERED: Sodium Bicarbonate 2.5 MEQ/5 ML VIAL ONE (09:42)
[2020-01-09] MEDS ORDERED: Albumin 25% 200 ML ONE (09:42)
[2020-01-09 10:40] LABS: #Eosinphils 0.4 thou/uL (0.0-0.7); #Lymphocytes 0.5 thou/uL (1.20-3.40); #Monocytes 0.5 thou/uL (0.11-0.59); #Neutrophils 2.9 thou/uL (1.40-6.50); %Basophils 0.5 % (0.0-1.0); %Eosinophils 10.1 % (0.0-10.0); %Lymphocytes 11.8 % (21.0-51.0); %Monocytes 10.6 % (0.0-10.0); %Neutrophils 66.9 % (42.0-75.0); Hemoglobin 8.8 g/dL (12.0-16.0); Mean Corpuscular HGB CONC 32.2 g/dL (32.0-36.0); Mean Corpuscular Hemoglobin 29.3 pg (27.0-31.0); Mean Corpuscular Volume 91.2 fL (78.0-98.0); Mean Platelet Volume 11.1 fL (7.4-10.4); Platelet Count 72 thou/uL (130-400); RBC Distribution Width 14.2 % (11.5-14.5); Red Blood Cell (RBC) Count 2.98 mill/uL (4.20-5.40); White Blood Cell (WBC) Count 4.3 thou/uL (4.8-10.8)
[2020-01-09 10:44] LABS: INR-International Normal Ratio 1.5; Prothrombin Time 17.7 sec (12.0-14.7)
[2020-01-09 10:59] LABS: ALT (SGPT) 13 U/L (8-55); AST (SGOT) 22 U/L (5-34); Albumin 2.8 g/dL (3.5-5.0); Alkaline Phosphatase 104 U/L (40-110); Anion Gap 11 mmol/L (10-20); BUN (Urea Nitrogen) 15 mg/dL (9.8-20.1); Bilirubin, Total 1.4 mg/dL (0.2-1.2); Calc. Creatinine Clearance 0 mL/min (70-130); Calcium 8.2 mg/dL (7.8-10.44); Carbon Dioxide 23 mmol/L (22-29); Chloride 107 mmol/L (98-107); Estimated GFR-MDRD 38; Globulin 2.2 g/dL (2.4-3.5); Glucose 251 mg/dL (70-105); Potassium 4.4 mmol/L (3.5-5.1); Sodium 137 mmol/L (136-145)
--- NOTE | 2020-01-09 11:17 | ULT ---
Exam: Ultrasound guided paracentesis HISTORY: Ascites COMPARISON: 01/02/2020 FINDINGS: Successful ultrasound-guided paracentesis. Total of 3.2 L of yellow color ascites was aspir ated. TECHNIQUE: Consent obtained reformatory ultrasound-guided paracentesis. Right lower quadrant was deem ed appropriate. Skin was prepped and draped in a sterile fashion. 1% lidocaine, buffered with sodium bicarbonate was used for local anesthesia. Under ultrasound guidance, a 5 Czech 7 cm Yueh cat heter is advanced in the peritoneal space. A total of 3.2 L of yellow color ascites was aspirated. No immediate or postprocedural complications IMPRESSION: Successful ultrasound-guided paracentesis.
[2020-01-09 12:35] VITALS: BP 110/60; TEMP 97.8
== END 2020-01-09 11:10 | disposition home or self-care (01) ==
LOC: ULT 09:38
PROVIDERS: ATTEND Internal Medicine Gastroenterology
PROC: 0W9G3ZZ Drainage of Peritoneal Cavity, Percutaneous Approach (ICD-10-PCS; principal; 2020-01-09)
PROC: BW40ZZZ Ultrasonography of Abdomen (ICD-10-PCS; principal; 2020-01-09)
DX: K74.60 Unspecified cirrhosis of liver (principal); R18.8 Other ascites; F17.200 Nicotine dependence, unspecified, uncomplicated; J44.9 Chronic obstructive pulmonary disease, unspecified; M19.90 Unspecified osteoarthritis, unspecified site; I12.9 Hypertensive chronic kidney disease with stage 1 through stage 4 chronic kidney disease, or unspecified chronic kidney disease; E11.22 Type 2 diabetes mellitus with diabetic chronic kidney disease; N18.9 Chronic kidney disease, unspecified; D63.1 Anemia in chronic kidney disease; F41.9 Anxiety disorder, unspecified; F32.9 Major depressive disorder, single episode, unspecified; G89.29 Other chronic pain; M54.9 Dorsalgia, unspecified; Z79.899 Other long term (current) drug therapy; Z88.0 Allergy status to penicillin; Z88.2 Allergy status to sulfonamides; Z88.5 Allergy status to narcotic agent; Z88.6 Allergy status to analgesic agent; Z91.018 Allergy to other foods; Z91.048 Other nonmedicinal substance allergy status
CPT/HCPCS: 49083; 80053; 85025; 85610; 96523; 99211; G0463; J1642; J2001; P9047

== ENCOUNTER 2020-01-16 08:59 | Day surgery (SDC) | payer OTHER ==
[2020-01-16] MEDS ORDERED: Sodium Bicarbonate 2.5 MEQ/5 ML VIAL ONE (09:37)
[2020-01-16] MEDS ORDERED: Albumin 25% 200 ML ONE (09:37)
[2020-01-16] MEDS ORDERED: Lidocaine 1% PF 5 ML VIAL ONE (09:37)
[2020-01-16] MEDS ORDERED: Sodium Chloride 0.9% 10 ML ONE (10:24)
[2020-01-16 10:35] LABS: #Basophils 0.1 thou/uL (0.0-0.2); #Eosinphils 0.5 thou/uL (0.0-0.7); #Lymphocytes 0.5 thou/uL (1.20-3.40); #Monocytes 0.5 thou/uL (0.11-0.59); #Neutrophils 2.3 thou/uL (1.40-6.50); %Basophils 1.6 % (0.0-1.0); %Monocytes 13.2 % (0.0-10.0); %Neutrophils 59.2 % (42.0-75.0); Hemoglobin 9.6 g/dL (12.0-16.0); Mean Corpuscular HGB CONC 32.5 g/dL (32.0-36.0); Mean Corpuscular Hemoglobin 29.7 pg (27.0-31.0); Mean Corpuscular Volume 91.4 fL (78.0-98.0); Mean Platelet Volume 11.2 fL (7.4-10.4); Platelet Count 77 thou/uL (130-400); RBC Distribution Width 14.4 % (11.5-14.5); Red Blood Cell (RBC) Count 3.23 mill/uL (4.20-5.40); White Blood Cell (WBC) Count 3.8 thou/uL (4.8-10.8)
--- NOTE | 2020-01-16 10:35 | ULT ---
Ultrasound-guided paracentesis: HISTORY: Cirrhosis and recurrent ascites. History of prior TIPS procedure. FINDINGS: Informed consent obtained prior to the procedure. Preprocedural imaging demonstrated intrap eritoneal free fluid. An area was marked in the right mid abdomen in the mid axillary line, and then meticulously prepped a nd draped in normal sterile fashion and anesthetized with 1% buffered lidocaine. With direct sonographic guidance, a 19-gauge needle and 5 Russian SoPosteh catheter were advanced into the abdomen. After the return of fluid, the catheter was advanced, and the needle was removed. Approximately 2.6 L of cloudy yellow-colored fluid was aspirated. The introducer sheath was removed, and hemostasis was achieved with direct pressure. A dry sterile dressing was placed. The patient tolerated the procedure well and without immediate complication. IMPRESSION: Technically successful ultrasound-guided paracentesis.
[2020-01-16 10:38] LABS: INR-International Normal Ratio 1.3; Prothrombin Time 16.1 sec (12.0-14.7)
[2020-01-16 10:57] LABS: ALT (SGPT) 11 U/L (8-55); AST (SGOT) 20 U/L (5-34); Albumin 3.1 g/dL (3.5-5.0); Alkaline Phosphatase 105 U/L (40-110); Anion Gap 11 mmol/L (10-20); BUN (Urea Nitrogen) 20 mg/dL (9.8-20.1); Bilirubin, Total 1.4 mg/dL (0.2-1.2); Calc. Creatinine Clearance 0 mL/min (70-130); Calcium 8.2 mg/dL (7.8-10.44); Carbon Dioxide 23 mmol/L (22-29); Chloride 106 mmol/L (98-107); Estimated GFR-MDRD 36; Globulin 2.5 g/dL (2.4-3.5); Glucose 250 mg/dL (70-105); Potassium 3.9 mmol/L (3.5-5.1); Protein, Total 5.6 g/dL (6.0-8.3); Sodium 136 mmol/L (136-145)
[2020-01-16 11:26] VITALS: BP 99/52; TEMP 97.8
== END 2020-01-16 10:45 | disposition home or self-care (01) ==
LOC: ULT 08:59
PROVIDERS: ATTEND Internal Medicine Gastroenterology
PROC: 0W9G3ZZ Drainage of Peritoneal Cavity, Percutaneous Approach (ICD-10-PCS; principal; 2020-01-16)
DX: K74.60 Unspecified cirrhosis of liver (principal); R18.8 Other ascites; I12.9 Hypertensive chronic kidney disease with stage 1 through stage 4 chronic kidney disease, or unspecified chronic kidney disease; E11.22 Type 2 diabetes mellitus with diabetic chronic kidney disease; N18.9 Chronic kidney disease, unspecified; D63.1 Anemia in chronic kidney disease; K21.9 Gastro-esophageal reflux disease without esophagitis; F17.200 Nicotine dependence, unspecified, uncomplicated; G89.29 Other chronic pain; M54.9 Dorsalgia, unspecified; M19.90 Unspecified osteoarthritis, unspecified site; J44.9 Chronic obstructive pulmonary disease, unspecified; F41.9 Anxiety disorder, unspecified; F32.9 Major depressive disorder, single episode, unspecified; Z88.0 Allergy status to penicillin; Z88.2 Allergy status to sulfonamides; Z88.5 Allergy status to narcotic agent; Z88.6 Allergy status to analgesic agent; Z88.8 Allergy status to other drugs, medicaments and biological substances; Z91.018 Allergy to other foods; Z91.048 Other nonmedicinal substance allergy status
CPT/HCPCS: 49083; 80053; 85025; 85610; 96523; 99211; G0463; J1642; J2001; P9047

== ENCOUNTER 2020-01-23 09:22 | Day surgery (SDC) | payer OTHER ==
[2020-01-23] MEDS ORDERED: Sodium Chloride 0.9% 20 ML ONE ×2 (09:24→09:51)
[2020-01-23] MEDS ORDERED: Sodium Bicarbonate 2.5 MEQ/5 ML VIAL ONE (09:42)
[2020-01-23] MEDS ORDERED: Lidocaine 1% PF 5 ML VIAL ONE (09:42)
[2020-01-23] MEDS ORDERED: Albumin 25% 100 ML ONE (09:42)
[2020-01-23 10:20] LABS: #Eosinphils 0.4 thou/uL (0.0-0.7); #Lymphocytes 0.6 thou/uL (1.20-3.40); #Monocytes 0.5 thou/uL (0.11-0.59); #Neutrophils 2.1 thou/uL (1.40-6.50); %Basophils 0.9 % (0.0-1.0); %Eosinophils 10.7 % (0.0-10.0); %Lymphocytes 17.1 % (21.0-51.0); %Monocytes 14.5 % (0.0-10.0); %Neutrophils 56.8 % (42.0-75.0); Hemoglobin 10.4 g/dL (12.0-16.0); Mean Corpuscular HGB CONC 32.3 g/dL (32.0-36.0); Mean Corpuscular Hemoglobin 29.6 pg (27.0-31.0); Mean Corpuscular Volume 91.7 fL (78.0-98.0); Mean Platelet Volume 5.4 fL (7.4-10.4); Platelet Count 68 thou/uL (130-400); RBC Distribution Width 14.2 % (11.5-14.5); Red Blood Cell (RBC) Count 3.52 mill/uL (4.20-5.40); White Blood Cell (WBC) Count 3.7 thou/uL (4.8-10.8)
[2020-01-23 10:25] LABS: INR-International Normal Ratio 1.3; Prothrombin Time 15.8 sec (12.0-14.7)
[2020-01-23 10:43] LABS: ALT (SGPT) 16 U/L (8-55); AST (SGOT) 27 U/L (5-34); Albumin 3.3 g/dL (3.5-5.0); Alkaline Phosphatase 101 U/L (40-110); Anion Gap 11 mmol/L (10-20); BUN (Urea Nitrogen) 18 mg/dL (9.8-20.1); Bilirubin, Total 1.7 mg/dL (0.2-1.2); Calc. Creatinine Clearance 57 mL/min (70-130); Calcium 8.8 mg/dL (7.8-10.44); Carbon Dioxide 23 mmol/L (22-29); Chloride 107 mmol/L (98-107); Estimated GFR-MDRD 35; Globulin 2.7 g/dL (2.4-3.5); Glucose 271 mg/dL (70-105); Potassium 3.8 mmol/L (3.5-5.1); Sodium 137 mmol/L (136-145)
--- NOTE | 2020-01-23 10:53 | ULT ---
EXAM: US Abdomen Limited CLINICAL HISTORY: Ascites. COMPARISON: 01/16/2020 FINDINGS: Small amount of free fluid in the pelvis is noted. Amount of fluid does not warrant ultrasound-guided paracentesis at this time IMPRESSION: Amount of fluid does not warrant ultrasound-guided paracentesis at this time. Paracentesis was cancel ed.
[2020-01-23 11:08] VITALS: BMI 23.5
[2020-01-23 11:09] VITALS: BP 118/60; TEMP 97.9
== END 2020-01-23 10:41 | disposition home or self-care (01) ==
LOC: ULT 09:22
PROVIDERS: ATTEND Internal Medicine Gastroenterology
DX: K74.60 Unspecified cirrhosis of liver (principal); R18.8 Other ascites; I12.9 Hypertensive chronic kidney disease with stage 1 through stage 4 chronic kidney disease, or unspecified chronic kidney disease; E11.22 Type 2 diabetes mellitus with diabetic chronic kidney disease; N18.9 Chronic kidney disease, unspecified; D63.1 Anemia in chronic kidney disease; J44.9 Chronic obstructive pulmonary disease, unspecified; M19.90 Unspecified osteoarthritis, unspecified site; F41.9 Anxiety disorder, unspecified; F32.9 Major depressive disorder, single episode, unspecified; G89.29 Other chronic pain; M54.9 Dorsalgia, unspecified; F17.200 Nicotine dependence, unspecified, uncomplicated; Z79.51 Long term (current) use of inhaled steroids; Z79.899 Other long term (current) drug therapy; Z88.0 Allergy status to penicillin; Z88.2 Allergy status to sulfonamides; Z88.5 Allergy status to narcotic agent; Z88.6 Allergy status to analgesic agent; Z91.018 Allergy to other foods; Z91.048 Other nonmedicinal substance allergy status; D64.9 Anemia, unspecified
CPT/HCPCS: 76705; 80053; 85025; 85610; 96523; 99211; G0463; J1642; J2001; P9047

== ENCOUNTER 2020-01-30 | Day surgery (SDC) | payer OTHER | END 2020-01-30 10:20 | disposition home or self-care (01) | PROC: 0W9G3ZZ Drainage of Peritoneal Cavity, Percutaneous Approach (ICD-10-PCS; principal; 2020-01-30) | DX: K74.60 Unspecified cirrhosis of liver (principal); R18.8 Other ascites; I12.9 Hypertensive chronic kidney disease with stage 1 through stage 4 chronic kidney disease, or unspecified chronic kidney disease; E11.22 Type 2 diabetes mellitus with diabetic chronic kidney disease; N18.9 Chronic kidney disease, unspecified; D63.1 Anemia in chronic kidney disease; J44.9 Chronic obstructive pulmonary disease, unspecified; F41.9 Anxiety disorder, unspecified; F32.9 Major depressive disorder, single episode, unspecified; F17.200 Nicotine dependence, unspecified, uncomplicated; K21.9 Gastro-esophageal reflux disease without esophagitis; G89.29 Other chronic pain; M54.9 Dorsalgia, unspecified; M19.90 Unspecified osteoarthritis, unspecified site; Z79.899 Other long term (current) drug therapy; Z88.0 Allergy status to penicillin; Z88.2 Allergy status to sulfonamides; Z88.5 Allergy status to narcotic agent; Z88.6 Allergy status to analgesic agent; Z88.8 Allergy status to other drugs, medicaments and biological substances; Z91.018 Allergy to other foods; Z91.048 Other nonmedicinal substance allergy status ==

== ENCOUNTER 2020-02-13 09:21 | Day surgery (SDC) | payer OTHER ==
[2020-02-13] MEDS ORDERED: Albumin 25% 200 ML ONE (09:29)
[2020-02-13] MEDS ORDERED: Sodium Chloride 0.9% 20 ML ONE (09:29)
[2020-02-13] MEDS ORDERED: Sodium Bicarbonate 2.5 MEQ/5 ML VIAL ONE (09:29)
[2020-02-13] MEDS ORDERED: Lidocaine 1% PF 5 ML VIAL ONE (09:29)
[2020-02-13 11:55] LABS: INR-International Normal Ratio 1.4; Prothrombin Time 17.3 sec (12.0-14.7)
[2020-02-13 12:11] LABS: Band 3 % (5-11); Eosinophils 6 % (0-10); Lymphocytes 11 % (21-51); MDiff Complete? YES; Mean Corpuscular HGB CONC 32.4 g/dL (32.0-36.0); Mean Corpuscular Hemoglobin 29.8 pg (27.0-31.0); Mean Corpuscular Volume 91.8 fL (78.0-98.0); Mean Platelet Volume 10.6 fL (7.4-10.4); Monocytes 15 % (0-10); Neutrophil 63 % (42-75); Platelet Count 66 thou/uL (130-400); Platelet Morphology Comment Appears Decreased; Polychromasia SLIGHT = 2-3 cells (100X) (0-2/hpf); RBC Distribution Width 13.6 % (11.5-14.5); Reactive Lymphocytes 2 % (0-10); Red Blood Cell (RBC) Count 3.02 mill/uL (4.20-5.40); White Blood Cell (WBC) Count 2.8 thou/uL (4.8-10.8)
[2020-02-13 12:18] LABS: ALT (SGPT) 12 U/L (8-55); AST (SGOT) 21 U/L (5-34); Albumin 2.5 g/dL (3.5-5.0); Alkaline Phosphatase 100 U/L (40-110); Anion Gap 9 mmol/L (10-20); BUN (Urea Nitrogen) 17 mg/dL (9.8-20.1); Bilirubin, Total 1.4 mg/dL (0.2-1.2); Calc. Creatinine Clearance 0 mL/min (70-130); Calcium 7.9 mg/dL (7.8-10.44); Carbon Dioxide 21 mmol/L (22-29); Chloride 109 mmol/L (98-107); Estimated GFR-MDRD 36; Globulin 2.6 g/dL (2.4-3.5); Glucose 280 mg/dL (70-105); Protein, Total 5.1 g/dL (6.0-8.3); Sodium 135 mmol/L (136-145)
[2020-02-13 12:30] LABS: Follow-up Hematology Comp? YES; Follow-up Result - Hematology REPORT FAXED
[2020-02-13 12:34] LABS: Follow-up Chemistry Comp? YES; Follow-up Result - Chemistry REPORT FAXED
--- NOTE | 2020-02-13 13:17 | ULT ---
ULTRASOUND-GUIDED PARACENTESIS THERAPEUTIC: DATE: 02/13/2020 HISTORY: 54-year-old female with symptomatic ascites: Abdominal distention. Cirrhosis. TECHNIQUE: Signed informed consent obtained. A four-quadrant survey of abdomen performed. Site selected for puncture: Left lower quadrant Overlying skin prepared and draped in usual sterile fashion. 25-gauge needle used to apply buffered lidocaine superficially and deeply. 5 Persian Yueh catheter with stylette advanced into the pocket of free intraperitoneal fluid. After drainage, the Yueh catheter was removed. Patient tolerated the procedure well. No complications. FINDINGS: Volume of ascites prior to procedure:large. Volume of ascites fluid in the drainage pocket after drainage:moderate. Volume of ascites fluid drained:7000 mL Appearance of ascites fluid:nonhemorrhagic, straw-colored. IMPRESSION: Successful therapeutic paracentesis, with drainage of 7 L of ascites fluid.
[2020-02-13 14:50] VITALS: BP 101/53; TEMP 97.9
== END 2020-02-13 11:45 | disposition home or self-care (01) ==
LOC: ULT 09:21
PROVIDERS: ATTEND Internal Medicine Gastroenterology
PROC: 0W9G3ZZ Drainage of Peritoneal Cavity, Percutaneous Approach (ICD-10-PCS; principal; 2020-02-13)
PROC: BW40ZZZ Ultrasonography of Abdomen (ICD-10-PCS; principal; 2020-02-13)
DX: K74.60 Unspecified cirrhosis of liver (principal); R18.8 Other ascites; I12.9 Hypertensive chronic kidney disease with stage 1 through stage 4 chronic kidney disease, or unspecified chronic kidney disease; E11.22 Type 2 diabetes mellitus with diabetic chronic kidney disease; N18.9 Chronic kidney disease, unspecified; D63.1 Anemia in chronic kidney disease; J44.9 Chronic obstructive pulmonary disease, unspecified; F41.9 Anxiety disorder, unspecified; F32.9 Major depressive disorder, single episode, unspecified; G89.29 Other chronic pain; M54.9 Dorsalgia, unspecified; F17.200 Nicotine dependence, unspecified, uncomplicated; M19.90 Unspecified osteoarthritis, unspecified site; Z88.0 Allergy status to penicillin; Z88.2 Allergy status to sulfonamides; Z88.5 Allergy status to narcotic agent; Z88.6 Allergy status to analgesic agent; Z88.8 Allergy status to other drugs, medicaments and biological substances; Z91.018 Allergy to other foods; Z91.048 Other nonmedicinal substance allergy status
CPT/HCPCS: 49083; 80053; 85025; 85610; J2001; P9047

== ENCOUNTER 2020-02-27 09:39 | Day surgery (SDC) | payer OTHER ==
[2020-02-27] MEDS ORDERED: Sodium Chloride 0.9% 20 ML ONE (09:59)
[2020-02-27] MEDS ORDERED: Lidocaine 1% PF 5 ML VIAL ONE (09:59)
[2020-02-27] MEDS ORDERED: Sodium Bicarbonate 2.5 MEQ/5 ML VIAL ONE (09:59)
[2020-02-27] MEDS ORDERED: Albumin 25% 25 GM/100 ML BOT ONE (10:27)
[2020-02-27 11:03] VITALS: BMI 26.6
[2020-02-27 11:05] VITALS: BP 107/58; TEMP 98
--- NOTE | 2020-02-27 12:54 | ULT ---
HEPATIC ULTRASOUND WITH DOPPLER: Hwang scale images obtained along with color Doppler and spectral analysis of the hepatic vessels. INDICATION: Cirrhosis. FINDINGS: The patient is status post cholecystectomy. The common bile duct is prominent but normal for post cholecystectomy status. The liver is small and nodular consistent with a history of cirrhosis. There is a history of TIPS pr ocedure. Color Doppler and spectral analysis demonstrates normal blood flow in the hepatic veins, portal veins , hepatic artery, and splenic veins. The spleen is enlarged. Moderate volume ascites is noted in the upper abdomen. The pancreas is mostly obscured but appears unremarkable as visualized. IMPRESSION: 1. Changes of cirrhosis. 2. Hepatopetal hepatic blood flow. 3. Splenomegaly. 4. Status post cholecystectomy. 5. Moderate volume ascites. POS: AH
--- NOTE | 2020-02-27 14:18 | ULT ---
Sonographic guided paracentesis HISTORY: Recurrent ascites. FINDINGS: After explaining the procedure and answering all questions, sonographic survey showed a lar ge amount of free fluid throughout the abdomen. Sterile technique, buffered local anesthesia, sonographic guidance, and a right lateral approach were used to carefully advance a 19-gauge Yueh needle and catheter into the free fluid. Catheter was left to drain a total volume of 5.9 L slightly cloudy yellow liquid. Catheter was removed with minima l fluid remaining. Patient tolerated the procedure well and was dismissed in good condition. IMPRESSION : Technically successful sonographic guided paracentesis.
== END 2020-02-27 11:20 | disposition home or self-care (01) ==
LOC: ULT 09:39
PROVIDERS: ATTEND Internal Medicine Gastroenterology
PROC: 0W9G3ZZ Drainage of Peritoneal Cavity, Percutaneous Approach (ICD-10-PCS; principal; 2020-02-27)
PROC: BW40ZZZ Ultrasonography of Abdomen (ICD-10-PCS; principal; 2020-02-27)
DX: K74.60 Unspecified cirrhosis of liver (principal); R18.8 Other ascites; I12.9 Hypertensive chronic kidney disease with stage 1 through stage 4 chronic kidney disease, or unspecified chronic kidney disease; E11.22 Type 2 diabetes mellitus with diabetic chronic kidney disease; N18.9 Chronic kidney disease, unspecified; F41.9 Anxiety disorder, unspecified; F32.9 Major depressive disorder, single episode, unspecified; J44.9 Chronic obstructive pulmonary disease, unspecified; Z88.0 Allergy status to penicillin; Z88.2 Allergy status to sulfonamides; Z88.5 Allergy status to narcotic agent; Z88.6 Allergy status to analgesic agent; Z88.8 Allergy status to other drugs, medicaments and biological substances; Z91.018 Allergy to other foods; D64.9 Anemia, unspecified
CPT/HCPCS: 49083; 76705; 96523; 99211; G0463; J1642; J2001

== ENCOUNTER 2020-03-12 09:25 | Day surgery (SDC) | payer OTHER ==
[2020-03-12] MEDS ORDERED: Sodium Bicarbonate 2.5 MEQ/5 ML VIAL ONE (09:33)
[2020-03-12] MEDS ORDERED: Sodium Chloride 0.9% 20 ML ONE (09:33)
[2020-03-12] MEDS ORDERED: Lidocaine 1% PF 5 ML VIAL ONE (09:33)
[2020-03-12] MEDS ORDERED: Albumin 25% 200 ML ONE (09:34)
[2020-03-12 11:08] LABS: Hemoglobin 9.5 g/dL (12.0-16.0); Mean Corpuscular Hemoglobin 29.3 pg (27.0-31.0); Mean Corpuscular Volume 88.8 fL (78.0-98.0); Mean Platelet Volume 11.7 fL (7.4-10.4); Platelet Count 55 thou/uL (130-400); RBC Distribution Width 12.7 % (11.5-14.5); Red Blood Cell (RBC) Count 3.23 mill/uL (4.20-5.40); White Blood Cell (WBC) Count 1.7 thou/uL (4.8-10.8)
[2020-03-12 11:11] LABS: INR-International Normal Ratio 1.4; Prothrombin Time 17.4 sec (12.0-14.7)
[2020-03-12 11:29] LABS: ALT (SGPT) 13 U/L (8-55); AST (SGOT) 33 U/L (5-34); Albumin 2.5 g/dL (3.5-5.0); Alkaline Phosphatase 99 U/L (40-110); Anion Gap 9 mmol/L (10-20); BUN (Urea Nitrogen) 15 mg/dL (9.8-20.1); Bilirubin, Total 1.4 mg/dL (0.2-1.2); Calc. Creatinine Clearance 0 mL/min (70-130); Calcium 7.8 mg/dL (7.8-10.44); Carbon Dioxide 23 mmol/L (22-29); Chloride 106 mmol/L (98-107); Estimated GFR-MDRD 38; Globulin 2.5 g/dL (2.4-3.5); Glucose 196 mg/dL (70-105); Potassium 3.9 mmol/L (3.5-5.1); Sodium 134 mmol/L (136-145)
[2020-03-12 11:36] LABS: Band 20 % (5-11); Eosinophils 7 % (0-10); Lymphocytes 15 % (21-51); MDiff Complete? YES; Monocytes 11 % (0-10); Neutrophil 48 % (42-75); Platelet Morphology Comment Appears Decreased; Polychromasia SLIGHT = 2-3 cells (100X) (0-2/hpf)
--- NOTE | 2020-03-12 11:58 | ULT ---
Exam: Ultrasound guided paracentesis HISTORY: Ascites COMPARISON: 02/27/2020 FINDINGS: Successful ultrasound-guided paracentesis. Total of 4900 mL of yellow color ascites was asp irated. TECHNIQUE: Consent obtained reformatory ultrasound-guided paracentesis. Right lower quadrant was deem ed appropriate. Skin was prepped and draped in a sterile fashion. 1% lidocaine, buffered with sodium bicarbonate was used for local anesthesia. Under ultrasound guidance, a 5 Bahraini 7 cm Yueh cat heter is advanced in the peritoneal space. A total of 4900 mL of yellow color ascites was aspirated. No immediate or postprocedural complications IMPRESSION: Successful ultrasound-guided paracentesis.
[2020-03-12 12:43] VITALS: BMI 26.6
[2020-03-12 12:44] VITALS: BP 98/45; TEMP 98.8
== END 2020-03-12 11:00 | disposition home or self-care (01) ==
LOC: ULT 09:25
PROVIDERS: ATTEND Internal Medicine Gastroenterology
PROC: 0W9G3ZZ Drainage of Peritoneal Cavity, Percutaneous Approach (ICD-10-PCS; principal; 2020-03-12)
PROC: BW40ZZZ Ultrasonography of Abdomen (ICD-10-PCS; principal; 2020-03-12)
DX: K74.60 Unspecified cirrhosis of liver (principal); R18.8 Other ascites; K72.90 Hepatic failure, unspecified without coma; I12.9 Hypertensive chronic kidney disease with stage 1 through stage 4 chronic kidney disease, or unspecified chronic kidney disease; E11.22 Type 2 diabetes mellitus with diabetic chronic kidney disease; N18.9 Chronic kidney disease, unspecified; D63.1 Anemia in chronic kidney disease; J44.9 Chronic obstructive pulmonary disease, unspecified; F41.9 Anxiety disorder, unspecified; F32.9 Major depressive disorder, single episode, unspecified; M19.90 Unspecified osteoarthritis, unspecified site; K21.9 Gastro-esophageal reflux disease without esophagitis; G89.29 Other chronic pain; M54.9 Dorsalgia, unspecified; Z87.891 Personal history of nicotine dependence; Z79.899 Other long term (current) drug therapy; Z88.0 Allergy status to penicillin; Z88.2 Allergy status to sulfonamides; Z88.5 Allergy status to narcotic agent; Z88.6 Allergy status to analgesic agent; Z91.018 Allergy to other foods; Z91.048 Other nonmedicinal substance allergy status
CPT/HCPCS: 49083; 80053; 85025; 85610; J1642; P9047

== ENCOUNTER 2020-03-25 08:22 | Day surgery (SDC) | payer OTHER ==
[2020-03-25] MEDS ORDERED: Sodium Bicarbonate 2.5 MEQ/5 ML VIAL ONE (08:46)
[2020-03-25] MEDS ORDERED: Sodium Chloride 0.9% 20 ML ONE (08:46)
[2020-03-25] MEDS ORDERED: Lidocaine 1% PF 5 ML VIAL ONE (08:46)
[2020-03-25] MEDS ORDERED: Albumin 25% 200 ML ONE (08:58)
[2020-03-25] MEDS ORDERED: Sodium Chloride 0.9% 10 ML ONE (09:16)
[2020-03-25 09:48] LABS: #Eosinphils 0.4 thou/uL (0.0-0.7); #Lymphocytes 0.5 thou/uL (1.20-3.40); #Monocytes 0.5 thou/uL (0.11-0.59); #Neutrophils 2.3 thou/uL (1.40-6.50); %Basophils 1.2 % (0.0-1.0); %Eosinophils 11.8 % (0.0-10.0); %Lymphocytes 14.2 % (21.0-51.0); %Monocytes 12.1 % (0.0-10.0); %Neutrophils 60.6 % (42.0-75.0); Hemoglobin 9.4 g/dL (12.0-16.0); MDiff Complete? YES; Mean Corpuscular HGB CONC 32.4 g/dL (32.0-36.0); Mean Corpuscular Hemoglobin 29.1 pg (27.0-31.0); Mean Corpuscular Volume 89.8 fL (78.0-98.0); Mean Platelet Volume 11.3 fL (7.4-10.4); Platelet Count 70 thou/uL (130-400); RBC Distribution Width 13.2 % (11.5-14.5); Red Blood Cell (RBC) Count 3.22 mill/uL (4.20-5.40); White Blood Cell (WBC) Count 3.8 thou/uL (4.8-10.8)
[2020-03-25 09:52] LABS: INR-International Normal Ratio 1.4; Prothrombin Time 16.7 sec (12.0-14.7)
[2020-03-25 10:02] LABS: ALT (SGPT) 10 U/L (8-55); AST (SGOT) 22 U/L (5-34); Albumin 2.5 g/dL (3.5-5.0); Alkaline Phosphatase 100 U/L (40-110); Anion Gap 11 mmol/L (10-20); BUN (Urea Nitrogen) 11 mg/dL (9.8-20.1); Bilirubin, Total 1.7 mg/dL (0.2-1.2); Calc. Creatinine Clearance 0 mL/min (70-130); Calcium 7.4 mg/dL (7.8-10.44); Carbon Dioxide 19 mmol/L (22-29); Chloride 106 mmol/L (98-107); Estimated GFR-MDRD 53; Globulin 2.5 g/dL (2.4-3.5); Glucose 246 mg/dL (70-105); Potassium 3.5 mmol/L (3.5-5.1); Sodium 132 mmol/L (136-145)
[2020-03-25 10:18] VITALS: BMI 28.1
[2020-03-25 10:19] VITALS: BP 102/52; TEMP 98.1
--- NOTE | 2020-03-25 10:31 | ULT ---
Exam: Ultrasound guided paracentesis HISTORY: Ascites COMPARISON: Prior exam dated March 12, 2020 FINDINGS: Successful ultrasound-guided paracentesis. Total of 7 L ofascites was aspirated. TECHNIQUE: Consent obtained reformatory ultrasound-guided paracentesis. Right lower quadrant was deem ed appropriate. Skin was prepped and draped in a sterile fashion. 1% lidocaine, buffered with sodium bicarbonate was used for local anesthesia. Under ultrasound guidance, a 5 Malay 7 cm Yueh cat heter is advanced in the peritoneal space. A total of 7 L ofascites was aspirated. No immediate or postprocedural complications IMPRESSION: Successful ultrasound-guided paracentesis.
== END 2020-03-25 10:00 | disposition home or self-care (01) ==
LOC: ULT 08:22
PROVIDERS: ATTEND Internal Medicine Gastroenterology
DX: K74.60 Unspecified cirrhosis of liver (principal); R18.8 Other ascites; K72.90 Hepatic failure, unspecified without coma; I12.9 Hypertensive chronic kidney disease with stage 1 through stage 4 chronic kidney disease, or unspecified chronic kidney disease; E11.22 Type 2 diabetes mellitus with diabetic chronic kidney disease; N18.9 Chronic kidney disease, unspecified; D63.1 Anemia in chronic kidney disease; F41.9 Anxiety disorder, unspecified; J44.9 Chronic obstructive pulmonary disease, unspecified; M19.90 Unspecified osteoarthritis, unspecified site; F32.9 Major depressive disorder, single episode, unspecified; G89.29 Other chronic pain; M54.9 Dorsalgia, unspecified; Z87.891 Personal history of nicotine dependence; Z79.899 Other long term (current) drug therapy; Z88.0 Allergy status to penicillin; Z88.2 Allergy status to sulfonamides; Z88.5 Allergy status to narcotic agent; Z88.6 Allergy status to analgesic agent; Z88.8 Allergy status to other drugs, medicaments and biological substances; Z91.018 Allergy to other foods
CPT/HCPCS: 49083; 80053; 85025; 85610; J1642; P9047

== ENCOUNTER 2020-05-07 09:20 | Day surgery (SDC) | payer OTHER ==
[2020-05-07] MEDS ORDERED: Sodium Bicarbonate 2.5 MEQ/5 ML VIAL ONE (09:43)
[2020-05-07] MEDS ORDERED: Albumin 25% 200 ML ONE (09:43)
[2020-05-07] MEDS ORDERED: Lidocaine 1% PF 5 ML VIAL ONE (09:44)
[2020-05-07] MEDS ORDERED: Sodium Chloride 0.9% 10 ML ONE (09:44)
[2020-05-07 11:32] LABS: #Eosinphils 0.4 thou/uL (0.0-0.7); #Lymphocytes 0.8 thou/uL (1.20-3.40); #Monocytes 0.5 thou/uL (0.11-0.59); #Neutrophils 2.4 thou/uL (1.40-6.50); %Basophils 1.1 % (0.0-1.0); %Eosinophils 8.9 % (0.0-10.0); %Lymphocytes 20.3 % (21.0-51.0); %Monocytes 12.5 % (0.0-10.0); %Neutrophils 57.3 % (42.0-75.0); Hemoglobin 10.8 g/dL (12.0-16.0); Mean Corpuscular HGB CONC 32.2 g/dL (32.0-36.0); Mean Corpuscular Hemoglobin 29.3 pg (27.0-31.0); Mean Corpuscular Volume 91.2 fL (78.0-98.0); Mean Platelet Volume 11.8 fL (7.4-10.4); Platelet Count 64 thou/uL (130-400); RBC Distribution Width 13.8 % (11.5-14.5); Red Blood Cell (RBC) Count 3.69 mill/uL (4.20-5.40); White Blood Cell (WBC) Count 4.1 thou/uL (4.8-10.8)
[2020-05-07 11:33] LABS: INR-International Normal Ratio 1.2; Prothrombin Time 15.6 sec (12.0-14.7)
[2020-05-07 11:35] LABS: ALT (SGPT) 14 U/L (8-55); AST (SGOT) 28 U/L (5-34); Albumin 2.9 g/dL (3.5-5.0); Alkaline Phosphatase 108 U/L (40-110); Anion Gap 15 mmol/L (10-20); BUN (Urea Nitrogen) 22 mg/dL (9.8-20.1); Bilirubin, Total 1.4 mg/dL (0.2-1.2); Calc. Creatinine Clearance 0 mL/min (70-130); Calcium 8.3 mg/dL (7.8-10.44); Carbon Dioxide 21 mmol/L (22-29); Chloride 108 mmol/L (98-107); Estimated GFR-MDRD 35; Globulin 2.7 g/dL (2.4-3.5); Glucose 155 mg/dL (70-105); Protein, Total 5.6 g/dL (6.0-8.3); Sodium 140 mmol/L (136-145)
--- NOTE | 2020-05-07 11:42 | ULT ---
US Paracentesis with Imaging History: Ascites Comparison: Paracentesis April 23, 2020 Findings: Patient was brought to the ultrasound suite. All questions were answered. Patient's right l ower quadrant was prepped and draped in normal sterile fashion. Using ultrasound guidance after adequate local anesthesia of the peritoneal space was accessed with a 5 Ukrainian catheter. 3.9 L of flu id was removed. Patient tolerated the procedure well without complication. Impression: Technically successful ultrasound guided paracentesis.
[2020-05-07 12:16] VITALS: BMI 26.6
[2020-05-07 12:19] VITALS: BP 124/60; TEMP 97.8
[2020-05-07 13:01] LABS: Follow-up Chemistry Comp? YES; Follow-up Coag Comp? YES; Follow-up Hematology Comp? YES; Follow-up Result - Chemistry REPORT FAXED; Follow-up Result - Coag REPORT FAXED; Follow-up Result - Hematology REPORT FAXED
== END 2020-05-07 11:25 | disposition home or self-care (01) ==
LOC: ULT 09:20
PROVIDERS: ATTEND Internal Medicine Gastroenterology
PROC: BW40ZZZ Ultrasonography of Abdomen (ICD-10-PCS; principal; 2020-05-07)
PROC: 0W9G3ZZ Drainage of Peritoneal Cavity, Percutaneous Approach (ICD-10-PCS; principal; 2020-05-07)
DX: K74.60 Unspecified cirrhosis of liver (principal); R18.8 Other ascites; I12.9 Hypertensive chronic kidney disease with stage 1 through stage 4 chronic kidney disease, or unspecified chronic kidney disease; E11.22 Type 2 diabetes mellitus with diabetic chronic kidney disease; N18.9 Chronic kidney disease, unspecified; D63.1 Anemia in chronic kidney disease; J44.9 Chronic obstructive pulmonary disease, unspecified; F41.9 Anxiety disorder, unspecified; F32.9 Major depressive disorder, single episode, unspecified; G89.29 Other chronic pain; M54.9 Dorsalgia, unspecified; K21.9 Gastro-esophageal reflux disease without esophagitis; F17.200 Nicotine dependence, unspecified, uncomplicated; Z88.0 Allergy status to penicillin; Z88.2 Allergy status to sulfonamides; Z88.5 Allergy status to narcotic agent; Z88.6 Allergy status to analgesic agent; Z91.018 Allergy to other foods
CPT/HCPCS: 36415; 49083; 80053; 85025; 85610; J1642; P9047

== ENCOUNTER 2020-05-21 09:17 | Day surgery (SDC) | payer OTHER ==
[2020-05-21] MEDS ORDERED: Sodium Bicarbonate 2.5 MEQ/5 ML VIAL ONE (09:56)
[2020-05-21] MEDS ORDERED: Albumin 25% 200 ML ONE (09:56)
[2020-05-21 10:59] LABS: #Eosinphils 0.3 thou/uL (0.0-0.7); #Lymphocytes 0.7 thou/uL (1.20-3.40); #Monocytes 0.7 thou/uL (0.11-0.59); #Neutrophils 3.3 thou/uL (1.40-6.50); %Basophils 0.7 % (0.0-1.0); %Eosinophils 6.8 % (0.0-10.0); %Lymphocytes 14.2 % (21.0-51.0); %Monocytes 13.2 % (0.0-10.0); Hemoglobin 9.3 g/dL (12.0-16.0); MDiff Complete? YES; Mean Corpuscular HGB CONC 33.9 g/dL (32.0-36.0); Mean Corpuscular Hemoglobin 31.3 pg (27.0-31.0); Mean Corpuscular Volume 92.3 fL (78.0-98.0); Mean Platelet Volume 10.1 fL (7.4-10.4); Platelet Count 78 thou/uL (130-400); Red Blood Cell (RBC) Count 2.96 mill/uL (4.20-5.40); White Blood Cell (WBC) Count 5.1 thou/uL (4.8-10.8)
[2020-05-21 11:05] LABS: INR-International Normal Ratio 1.4; Prothrombin Time 17.1 sec (12.0-14.7)
[2020-05-21 11:19] LABS: ALT (SGPT) 17 U/L (8-55); AST (SGOT) 25 U/L (5-34); Albumin 2.5 g/dL (3.5-5.0); Alkaline Phosphatase 107 U/L (40-110); Anion Gap 9 mmol/L (10-20); BUN (Urea Nitrogen) 23 mg/dL (9.8-20.1); Bilirubin, Total 0.8 mg/dL (0.2-1.2); Calc. Creatinine Clearance 0 mL/min (70-130); Calcium 7.9 mg/dL (7.8-10.44); Carbon Dioxide 22 mmol/L (22-29); Chloride 105 mmol/L (98-107); Estimated GFR-MDRD 33; Globulin 2.5 g/dL (2.4-3.5); Glucose 301 mg/dL (70-105); Potassium 4.2 mmol/L (3.5-5.1); Sodium 132 mmol/L (136-145)
[2020-05-21 11:41] VITALS: BMI 29.0
[2020-05-21 11:42] VITALS: BP 108/58; TEMP 97.9
--- NOTE | 2020-05-21 11:59 | ULT ---
Ultrasound-guided paracentesis: HISTORY: Cirrhosis and recurrent ascites FINDINGS: Informed consent obtained prior to the procedure. Preprocedural imaging demonstrated intrap eritoneal free fluid. An area was marked in the left lower quadrant, and then meticulously prepped and draped in normal bren[place] rile fashion and anesthetized with 1% buffered lidocaine. With direct sonographic guidance, a 19-gauge needle and 5 Saudi Arabian Yueh catheter were advanced into the abdomen. After the return of fluid, the catheter was advanced, and the needle was removed. Approximately 5.7 L of clear whitish fluid was aspirated. The introducer sheath was removed, and hemo stasis was achieved with direct pressure. A dry sterile dressing was placed. The patient tolerated the procedure well and without immediate complication. IMPRESSION: Technically successful ultrasound-guided paracentesis.
== END 2020-05-21 11:30 | disposition home or self-care (01) ==
LOC: ULT 09:17
PROVIDERS: ATTEND Internal Medicine Gastroenterology
PROC: 0W9G3ZZ Drainage of Peritoneal Cavity, Percutaneous Approach (ICD-10-PCS; principal; 2020-05-21)
PROC: BW40ZZZ Ultrasonography of Abdomen (ICD-10-PCS; principal; 2020-05-21)
DX: K74.60 Unspecified cirrhosis of liver (principal); R18.8 Other ascites; I12.9 Hypertensive chronic kidney disease with stage 1 through stage 4 chronic kidney disease, or unspecified chronic kidney disease; E11.22 Type 2 diabetes mellitus with diabetic chronic kidney disease; N18.9 Chronic kidney disease, unspecified; D63.1 Anemia in chronic kidney disease; J44.9 Chronic obstructive pulmonary disease, unspecified; F41.9 Anxiety disorder, unspecified; F32.9 Major depressive disorder, single episode, unspecified; G89.29 Other chronic pain; M54.9 Dorsalgia, unspecified; M19.90 Unspecified osteoarthritis, unspecified site; Z79.899 Other long term (current) drug therapy; Z88.0 Allergy status to penicillin; Z88.2 Allergy status to sulfonamides; Z88.5 Allergy status to narcotic agent; Z88.6 Allergy status to analgesic agent; Z88.8 Allergy status to other drugs, medicaments and biological substances
CPT/HCPCS: 49083; 80053; 85025; 85610; J1642; P9047

== ENCOUNTER 2020-05-27 13:33 | Outpatient (CLI) | payer OTHER ==
[~2020-05-27 13:33] MED LIST changes: -Albumin 25% 200 ML ONE; -Lidocaine 1% PF 5 ML VIAL ONE; +Magnevist 469MG/ML 20 ML VIAL ONE; -Sodium Bicarbonate 2.5 MEQ/5 ML VIAL ONE; -Sodium Chloride 0.9% 20 ML ONE
--- NOTE | 2020-05-27 16:08 | MRI ---
EXAM: MRI of the abdomen without and with contrast COMPARISON: Hepatic ultrasound 02/27/2020 HISTORY: Cirrhosis of the liver TECHNIQUE: Multiplanar multi sequence MR images were taken of the abdomen without and with IV contras t. An MRCP was performed. FINDINGS: Liver: There is an area of tubular decreased signal extending from the portal vein to the hepatic vei n consistent with a TIPS stent in the right lobe of the liver. Enhancement is seen within this stent on the postcontrast images likely secondary to patency of the stent. No focal liver lesions or intrahepatic ductal dilatation. Normal signal without dropout on out of phase images. No abnormal enhancement. Moderate to large ascites is seen. Splenic and esophageal varices are seen. There is a r ecanalized periumbilical vein. Gallbladder: Absent Common bile duct: Normal caliber without filling defects Adrenal glands: Unremarkable. Kidneys: No hydronephrosis or focal renal lesions. No abnormal areas of enhancement. Spleen: Unremarkable. Pancreas: Unremarkable. No abnormal enhancement. Retroperitoneum: No enlarged lymph nodes Bones: No marrow signal abnormality. IMPRESSION: Cirrhosis with sequelae of portal hypertension. The patient appears to have a patent TIPS stent. No suspicious liver lesions are seen.
== END 2020-05-27 13:34 | disposition home or self-care (01) ==
LOC: BICMRI 13:33
PROVIDERS: ATTEND Internal Medicine Gastroenterology
DX: K72.90 Hepatic failure, unspecified without coma (principal); K74.60 Unspecified cirrhosis of liver; R18.8 Other ascites; K31.819 Angiodysplasia of stomach and duodenum without bleeding; D62 Acute posthemorrhagic anemia
CPT/HCPCS: 74183; A9579

== ENCOUNTER 2020-06-04 09:26 | Day surgery (SDC) | payer OTHER ==
[2020-06-04] MEDS ORDERED: Lidocaine 1% PF 5 ML VIAL ONE (10:01)
[2020-06-04] MEDS ORDERED: Albumin 25% 200 ML ONE (10:01)
[2020-06-04] MEDS ORDERED: Sodium Bicarbonate 2.5 MEQ/5 ML VIAL ONE (10:01)
[2020-06-04 10:37] LABS: #Eosinphils 0.3 thou/uL (0.0-0.7); #Lymphocytes 0.7 thou/uL (1.20-3.40); #Monocytes 0.6 thou/uL (0.11-0.59); %Basophils 0.7 % (0.0-1.0); %Eosinophils 4.6 % (0.0-10.0); %Lymphocytes 11.5 % (21.0-51.0); %Monocytes 11.4 % (0.0-10.0); %Neutrophils 71.8 % (42.0-75.0); Mean Corpuscular HGB CONC 33.8 g/dL (32.0-36.0); Mean Corpuscular Hemoglobin 31.3 pg (27.0-31.0); Mean Corpuscular Volume 92.5 fL (78.0-98.0); Mean Platelet Volume 9.3 fL (7.4-10.4); Platelet Count 66 thou/uL (130-400); RBC Distribution Width 13.6 % (11.5-14.5); Red Blood Cell (RBC) Count 2.57 mill/uL (4.20-5.40); White Blood Cell (WBC) Count 5.6 thou/uL (4.8-10.8)
[2020-06-04 10:42] LABS: INR-International Normal Ratio 1.6
[2020-06-04 10:58] LABS: ALT (SGPT) 11 U/L (8-55); AST (SGOT) 20 U/L (5-34); Albumin 2.3 g/dL (3.5-5.0); Alkaline Phosphatase 91 U/L (40-110); Anion Gap 9 mmol/L (10-20); BUN (Urea Nitrogen) 21 mg/dL (9.8-20.1); Bilirubin, Total 1.8 mg/dL (0.2-1.2); Calc. Creatinine Clearance 0 mL/min (70-130); Calcium 7.6 mg/dL (7.8-10.44); Carbon Dioxide 20 mmol/L (22-29); Chloride 108 mmol/L (98-107); Estimated GFR-MDRD 37; Globulin 2.3 g/dL (2.4-3.5); Glucose 231 mg/dL (70-105); Potassium 3.7 mmol/L (3.5-5.1); Protein, Total 4.6 g/dL (6.0-8.3); Sodium 133 mmol/L (136-145)
[2020-06-04] MEDS ORDERED: Sodium Chloride 0.9% 10 ML ONE (11:08)
[2020-06-04 11:24] VITALS: BP 102/60; TEMP 98.4
--- NOTE | 2020-06-04 11:48 | ULT ---
ULTRASOUND-GUIDED PARACENTESIS THERAPEUTIC: DATE: 06/04/2020 HISTORY: 54-year-old female with cirrhosis presents with symptomatic ascites: Abdominal distention. TECHNIQUE: Signed informed consent obtained. A four-quadrant survey of abdomen performed. Site selected for puncture: right lower quadrant Overlying skin prepared and draped in usual sterile fashion. 25-gauge needle used to apply buffered lidocaine superficially and deeply. 5 Maldivian Yueh catheter with stylette advanced into the pocket of free intraperitoneal fluid. After drainage, the Yueh catheter was removed. Patient tolerated the procedure well. No complications. FINDINGS: Volume of ascites prior to procedure:large. Volume of ascites fluid in the drainage pocket after drainage:small. Volume of ascites fluid drained:7000 mL Appearance of ascites fluid:Clear and colorless IMPRESSION: Successful therapeutic paracentesis, with drainage of 7 L of ascites fluid.
[2020-06-04 12:17] LABS: Follow-up Hematology Comp? YES; Follow-up Result - Hematology REPORT FAXED
[2020-06-04 12:18] LABS: Follow-up Chemistry Comp? YES; Follow-up Result - Chemistry REPORT FAXED
== END 2020-06-04 11:30 | disposition home or self-care (01) ==
LOC: ULT 09:26
PROVIDERS: ATTEND Internal Medicine Gastroenterology
PROC: BW40ZZZ Ultrasonography of Abdomen (ICD-10-PCS; principal; 2020-06-04)
PROC: 0W9G3ZZ Drainage of Peritoneal Cavity, Percutaneous Approach (ICD-10-PCS; principal; 2020-06-04)
DX: K74.60 Unspecified cirrhosis of liver (principal); R18.8 Other ascites; K72.90 Hepatic failure, unspecified without coma; I12.9 Hypertensive chronic kidney disease with stage 1 through stage 4 chronic kidney disease, or unspecified chronic kidney disease; E11.22 Type 2 diabetes mellitus with diabetic chronic kidney disease; N18.9 Chronic kidney disease, unspecified; J44.9 Chronic obstructive pulmonary disease, unspecified; F41.9 Anxiety disorder, unspecified; F32.9 Major depressive disorder, single episode, unspecified; D64.9 Anemia, unspecified; K21.9 Gastro-esophageal reflux disease without esophagitis; Z79.899 Other long term (current) drug therapy; Z88.0 Allergy status to penicillin; Z88.2 Allergy status to sulfonamides; Z88.5 Allergy status to narcotic agent; Z88.6 Allergy status to analgesic agent; Z88.8 Allergy status to other drugs, medicaments and biological substances; Z91.018 Allergy to other foods; Z87.891 Personal history of nicotine dependence
CPT/HCPCS: 49083; 80053; 85025; 85610; J1642; P9047

== ENCOUNTER 2020-06-18 09:27 | Day surgery (SDC) | payer OTHER ==
[2020-06-17 11:53] VITALS: BMI 26.6
[2020-06-18] MEDS ORDERED: Albumin 25% 200 ML ONE (09:50)
[2020-06-18] MEDS ORDERED: Lidocaine 1% PF 5 ML VIAL ONE (09:50)
[2020-06-18] MEDS ORDERED: Sodium Chloride 0.9% 10 ML ONE (10:35)
[2020-06-18 10:44] LABS: INR-International Normal Ratio 1.4; Prothrombin Time 17.7 sec (12.0-14.7)
[2020-06-18 10:47] LABS: Hemoglobin 8.8 g/dL (12.0-16.0); Mean Corpuscular HGB CONC 33.2 g/dL (32.0-36.0); Mean Corpuscular Hemoglobin 30.7 pg (27.0-31.0); Mean Corpuscular Volume 92.6 fL (78.0-98.0); Mean Platelet Volume 9.4 fL (7.4-10.4); Platelet Count 79 thou/uL (130-400); RBC Distribution Width 12.7 % (11.5-14.5); Red Blood Cell (RBC) Count 2.85 mill/uL (4.20-5.40)
[2020-06-18 10:55] LABS: ALT (SGPT) 9 U/L (8-55); AST (SGOT) 24 U/L (5-34); Albumin 2.3 g/dL (3.5-5.0); Alkaline Phosphatase 93 U/L (40-110); Anion Gap 10 mmol/L (10-20); BUN (Urea Nitrogen) 12 mg/dL (9.8-20.1); Bilirubin, Total 1.3 mg/dL (0.2-1.2); Calc. Creatinine Clearance 61 mL/min (70-130); Calcium 7.4 mg/dL (7.8-10.44); Carbon Dioxide 23 mmol/L (22-29); Chloride 107 mmol/L (98-107); Estimated GFR-MDRD 43; Globulin 2.4 g/dL (2.4-3.5); Glucose 151 mg/dL (70-105); Potassium 3.5 mmol/L (3.5-5.1); Protein, Total 4.7 g/dL (6.0-8.3); Sodium 136 mmol/L (136-145)
[2020-06-18 11:28] LABS: Follow-up Chemistry Comp? YES; Follow-up Result - Chemistry REPORT FAXED
[2020-06-18 11:36] LABS: Band 5 % (5-11); Eosinophils 14 % (0-10); Lymphocytes 12 % (21-51); MDiff Complete? YES; Monocytes 18 % (0-10); Myelocyte 1 % (0-0); Neutrophil 48 % (42-75); Ovalocytes SLIGHT = 2-5 cells (100X) (0-1/hpf); Platelet Morphology Comment Appears Decreased; Polychromasia SLIGHT = 2-3 cells (100X) (0-2/hpf); Reactive Lymphocytes 1 % (0-10)
[2020-06-18 11:38] LABS: Follow-up Hematology Comp? YES; Follow-up Result - Hematology REPORT FAXED
--- NOTE | 2020-06-18 11:49 | ULT ---
Sonographic guided paracentesis HISTORY: Symptomatic ascites. FINDINGS: After explaining the procedure and answering all questions, sonographic survey showed a lar ge amount of free fluid throughout the abdomen. Sterile technique, buffered local anesthesia, sonographic guidance, and a left lateral approach were used to carefully advance a 19-gauge Yueh needle and catheter into the free fluid. Catheter was left to drain a total volume of 7.0 L clear liquid. Patient is limited to 7 L. Catheter was removed with large amount of fluid remaining. Patient tolerated the procedure well and was dismissed in good condition. IMPRESSION : Technically successful sonographic guided paracentesis. 7.0 L.
[2020-06-18 12:47] VITALS: BP 115/71; TEMP 96.8
== END 2020-06-18 11:10 | disposition home or self-care (01) ==
LOC: ULT 09:27
PROVIDERS: ATTEND Internal Medicine Gastroenterology
PROC: BW40ZZZ Ultrasonography of Abdomen (ICD-10-PCS; principal; 2020-06-18)
PROC: 0W9G3ZZ Drainage of Peritoneal Cavity, Percutaneous Approach (ICD-10-PCS; principal; 2020-06-18)
DX: K74.60 Unspecified cirrhosis of liver (principal); R18.8 Other ascites; I12.9 Hypertensive chronic kidney disease with stage 1 through stage 4 chronic kidney disease, or unspecified chronic kidney disease; E11.22 Type 2 diabetes mellitus with diabetic chronic kidney disease; N18.9 Chronic kidney disease, unspecified; F41.9 Anxiety disorder, unspecified; F32.9 Major depressive disorder, single episode, unspecified; F17.200 Nicotine dependence, unspecified, uncomplicated; D63.1 Anemia in chronic kidney disease; J44.9 Chronic obstructive pulmonary disease, unspecified; M19.90 Unspecified osteoarthritis, unspecified site; Z79.2 Long term (current) use of antibiotics; Z79.899 Other long term (current) drug therapy; Z88.0 Allergy status to penicillin; Z88.2 Allergy status to sulfonamides; Z88.5 Allergy status to narcotic agent; Z88.6 Allergy status to analgesic agent; Z88.8 Allergy status to other drugs, medicaments and biological substances; Z91.018 Allergy to other foods
CPT/HCPCS: 49083; 80053; 85025; 85610; J1642; P9047

== ENCOUNTER → 2020-07-02 | Day surgery (SDC) | payer OTHER ==
[~2020-07-02] MED LIST changes: +Albumin 25% 200 ML ONE; -Magnevist 469MG/ML 20 ML VIAL ONE; +Sodium Bicarbonate 2.5 MEQ/5 ML VIAL ONE; +Sodium Chloride 0.9% 20 ML ONE
[2020-07-02 10:55] VITALS: BP 117/63; TEMP 99
--- NOTE | 2020-07-02 11:03 | ULT ---
Exam: Ultrasound guided paracentesis HISTORY: Ascites COMPARISON: Prior exam dated June 18, 2020 FINDINGS: Successful ultrasound-guided paracentesis. Total of 7 L of normal appearingascites was aspi rated. TECHNIQUE: Consent obtained reformatory ultrasound-guided paracentesis. Left lower quadrantwas deemed appropriate. Skin was prepped and draped in a sterile fashion. 1% lidocaine, buffered with sodium bicarbonate was used for local anesthesia. Under ultrasound guidance, a 5 Emirati 7 cm [employer] PFeh catheter i s advanced in the peritoneal space. A total of 7 L of normal appearingascites was aspirated. No immediate or postprocedural complications IMPRESSION: Successful ultrasound-guided paracentesis.
[2020-07-02 11:14] LABS: INR-International Normal Ratio 1.4; Prothrombin Time 17.3 sec (12.0-14.7)
[2020-07-02 11:37] LABS: ALT (SGPT) 14 U/L (8-55); AST (SGOT) 25 U/L (5-34); Albumin 2.3 g/dL (3.5-5.0); Alkaline Phosphatase 90 U/L (40-110); Anion Gap 13 mmol/L (10-20); BUN (Urea Nitrogen) 17 mg/dL (9.8-20.1); Calc. Creatinine Clearance 61 mL/min (70-130); Calcium 7.9 mg/dL (7.8-10.44); Carbon Dioxide 21 mmol/L (22-29); Chloride 107 mmol/L (98-107); Estimated GFR-MDRD 36; Globulin 2.5 g/dL (2.4-3.5); Glucose 294 mg/dL (70-105); Potassium 3.8 mmol/L (3.5-5.1); Protein, Total 4.8 g/dL (6.0-8.3); Sodium 137 mmol/L (136-145)
[2020-07-02 11:52] LABS: Band 5 % (5-11); Eosinophils 9 % (0-10); Hemoglobin 8.9 g/dL (12.0-16.0); Lymphocytes 17 % (21-51); MDiff Complete? YES; Mean Corpuscular Hemoglobin 30.8 pg (27.0-31.0); Mean Corpuscular Volume 90.4 fL (78.0-98.0); Monocytes 14 % (0-10); Neutrophil 54 % (42-75); Platelet Count 73 thou/uL (130-400); Platelet Morphology Comment Appears Decreased; Tear Drops SLIGHT = 2-5 cells (100X) (0-1/hpf); White Blood Cell (WBC) Count 3.3 thou/uL (4.8-10.8)
== END ==
LOC: ULT 09:09
PROVIDERS: ATTEND Internal Medicine Gastroenterology
PROC: BW40ZZZ Ultrasonography of Abdomen (ICD-10-PCS; principal; 2020-07-02)
PROC: 0W9G3ZZ Drainage of Peritoneal Cavity, Percutaneous Approach (ICD-10-PCS; principal; 2020-07-02)
DX: K74.60 Unspecified cirrhosis of liver (principal); R18.8 Other ascites; I12.9 Hypertensive chronic kidney disease with stage 1 through stage 4 chronic kidney disease, or unspecified chronic kidney disease; E11.22 Type 2 diabetes mellitus with diabetic chronic kidney disease; N18.9 Chronic kidney disease, unspecified; D63.1 Anemia in chronic kidney disease; F41.9 Anxiety disorder, unspecified; F32.9 Major depressive disorder, single episode, unspecified; K21.9 Gastro-esophageal reflux disease without esophagitis; F17.200 Nicotine dependence, unspecified, uncomplicated; M19.90 Unspecified osteoarthritis, unspecified site; G89.29 Other chronic pain; M54.9 Dorsalgia, unspecified; Z79.899 Other long term (current) drug therapy; Z88.0 Allergy status to penicillin; Z88.2 Allergy status to sulfonamides; Z88.5 Allergy status to narcotic agent; Z88.6 Allergy status to analgesic agent; Z88.8 Allergy status to other drugs, medicaments and biological substances; Z91.018 Allergy to other foods
CPT/HCPCS: 49083; 80053; 85025; 85610; J1642; P9047

== ENCOUNTER → 2020-07-16 | Day surgery (SDC) | payer OTHER ==
[~2020-07-16] MED LIST changes: +Lidocaine 1% PF 5 ML VIAL ONE; +Sodium Chloride 0.9% 10 ML ONE; -Sodium Chloride 0.9% 20 ML ONE
[2020-07-16 11:42] VITALS: BP 120/68; TEMP 98
[2020-07-16 12:22] LABS: INR-International Normal Ratio 1.3; Prothrombin Time 16.4 sec (12.0-14.7)
[2020-07-16 12:26] LABS: #Eosinphils 0.5 thou/uL (0.0-0.7); #Lymphocytes 0.6 thou/uL (1.20-3.40); #Monocytes 0.6 thou/uL (0.11-0.59); #Neutrophils 2.6 thou/uL (1.40-6.50); %Basophils 1.1 % (0.0-1.0); %Eosinophils 11.5 % (0.0-10.0); %Lymphocytes 13.1 % (21.0-51.0); %Monocytes 13.4 % (0.0-10.0); Anion Gap 10 mmol/L (10-20); BUN (Urea Nitrogen) 15 mg/dL (9.8-20.1); Calc. Creatinine Clearance 66 mL/min (70-130); Calcium 8.1 mg/dL (7.8-10.44); Carbon Dioxide 23 mmol/L (22-29); Chloride 105 mmol/L (98-107); Estimated GFR-MDRD 40; Glucose 398 mg/dL (70-105); Hemoglobin 8.5 g/dL (12.0-16.0); Mean Corpuscular HGB CONC 31.6 g/dL (32.0-36.0); Mean Corpuscular Hemoglobin 29.5 pg (27.0-31.0); Mean Corpuscular Volume 93.4 fL (78.0-98.0); Mean Platelet Volume 10.6 fL (7.4-10.4); Platelet Count 78 thou/uL (130-400); Potassium 4.1 mmol/L (3.5-5.1); RBC Distribution Width 14.2 % (11.5-14.5); Red Blood Cell (RBC) Count 2.86 mill/uL (4.20-5.40); Sodium 134 mmol/L (136-145); White Blood Cell (WBC) Count 4.2 thou/uL (4.8-10.8)
--- NOTE | 2020-07-16 13:52 | ULT ---
Sonographic guided paracentesis HISTORY: Symptomatic ascites. FINDINGS: After explaining the procedure and answering all questions, sonographic survey showed a lar ge amount of free fluid throughout the abdomen. Sterile technique, buffered local anesthesia, sonographic guidance, and a left lateral approach were used to carefully advance the tip of a 19-gauge Yueh needle and catheter into the free fluid. Catheter was left to drain a total volume of 7.0 L clear yellow liquid. Patient is limited to 7 mm. Catheter was removed with small amount of fluid remaining. Patient tolerated the procedure well and w as dismissed in good condition. IMPRESSION : Technically successful sonographic guided paracentesis. 7.0 L.
== END ==
LOC: ULT 09:22
PROVIDERS: ATTEND Internal Medicine Gastroenterology
PROC: BW40ZZZ Ultrasonography of Abdomen (ICD-10-PCS; principal; 2020-07-16)
PROC: 0W9G3ZZ Drainage of Peritoneal Cavity, Percutaneous Approach (ICD-10-PCS; principal; 2020-07-16)
DX: K74.60 Unspecified cirrhosis of liver (principal); R18.8 Other ascites; I12.9 Hypertensive chronic kidney disease with stage 1 through stage 4 chronic kidney disease, or unspecified chronic kidney disease; E11.22 Type 2 diabetes mellitus with diabetic chronic kidney disease; N18.9 Chronic kidney disease, unspecified; D63.1 Anemia in chronic kidney disease; J44.9 Chronic obstructive pulmonary disease, unspecified; F41.9 Anxiety disorder, unspecified; F32.9 Major depressive disorder, single episode, unspecified; F17.200 Nicotine dependence, unspecified, uncomplicated; K21.9 Gastro-esophageal reflux disease without esophagitis; M19.90 Unspecified osteoarthritis, unspecified site; Z88.2 Allergy status to sulfonamides; Z88.0 Allergy status to penicillin; Z88.5 Allergy status to narcotic agent; Z88.6 Allergy status to analgesic agent; Z88.8 Allergy status to other drugs, medicaments and biological substances; Z91.018 Allergy to other foods
CPT/HCPCS: 49083; 80048; 85025; 85610; J1642; P9047

== ENCOUNTER 2020-07-30 09:38 | Day surgery (SDC) | payer OTHER ==
[~2020-07-30 09:38] MED LIST changes: -Albumin 25% 200 ML ONE; +FLU VACC QS2020-21(6MOS UP)/PF 60 MCG/0.5 ML SYRINGE IM ONE; -Lidocaine 1% PF 5 ML VIAL ONE; -Sodium Bicarbonate 2.5 MEQ/5 ML VIAL ONE; -Sodium Chloride 0.9% 10 ML ONE
[2020-07-30] MEDS ORDERED: Albumin 25% 200 ML ONE (09:48)
[2020-07-30] MEDS ORDERED: Sodium Bicarbonate 2.5 MEQ/5 ML VIAL ONE (09:48)
[2020-07-30] MEDS ORDERED: Lidocaine 1% PF 5 ML VIAL ONE (09:48)
[2020-07-30] MEDS ORDERED: Sodium Chloride 0.9% 10 ML ONE ×2 (09:48→09:54)
[2020-07-30 11:30] LABS: Hemoglobin 8.4 g/dL (12.0-16.0)
[2020-07-30 11:56] LABS: Anion Gap 13 mmol/L (10-20); BUN (Urea Nitrogen) 18 mg/dL (9.8-20.1); Calc. Creatinine Clearance 0 mL/min (70-130); Calcium 6.9 mg/dL (7.8-10.44); Carbon Dioxide 20 mmol/L (22-29); Chloride 104 mmol/L (98-107); Estimated GFR-MDRD 37; Glucose 398 mg/dL (70-105); Sodium 133 mmol/L (136-145)
--- NOTE | 2020-07-30 12:27 | ULT ---
Exam: Ultrasound guided paracentesis HISTORY: Ascites COMPARISON: 07/16/2020 FINDINGS: Successful ultrasound-guided paracentesis. Total of 6600 mL of slightly yellow ascites was aspirated. TECHNIQUE: Consent obtained reformatory ultrasound-guided paracentesis. Right lower quadrant was deem ed appropriate. Skin was prepped and draped in a sterile fashion. 1% lidocaine, buffered with sodium bicarbonate was used for local anesthesia. Under ultrasound guidance, a 5 Mohawk 7 cm Yueh cat heter is advanced in the peritoneal space. A total of 6600 mL of slightly yellow ascites was aspirated. No immediate or postprocedural complications IMPRESSION: Successful ultrasound-guided paracentesis.
[2020-07-30 14:17] VITALS: BP 109/56; TEMP 97.7
== END 2020-07-30 12:20 | disposition home or self-care (01) ==
LOC: ULT 09:38
PROVIDERS: ATTEND Internal Medicine Gastroenterology
PROC: 0W9G3ZZ Drainage of Peritoneal Cavity, Percutaneous Approach (ICD-10-PCS; principal; 2020-07-30)
DX: K74.60 Unspecified cirrhosis of liver (principal); R18.8 Other ascites; K72.90 Hepatic failure, unspecified without coma; J44.9 Chronic obstructive pulmonary disease, unspecified; I12.9 Hypertensive chronic kidney disease with stage 1 through stage 4 chronic kidney disease, or unspecified chronic kidney disease; E11.22 Type 2 diabetes mellitus with diabetic chronic kidney disease; N18.9 Chronic kidney disease, unspecified; D63.1 Anemia in chronic kidney disease; F41.9 Anxiety disorder, unspecified; F32.9 Major depressive disorder, single episode, unspecified; M19.90 Unspecified osteoarthritis, unspecified site; F17.200 Nicotine dependence, unspecified, uncomplicated; G89.29 Other chronic pain; M54.9 Dorsalgia, unspecified; Z79.899 Other long term (current) drug therapy; Z88.0 Allergy status to penicillin; Z88.2 Allergy status to sulfonamides; Z88.5 Allergy status to narcotic agent; Z88.6 Allergy status to analgesic agent; Z88.8 Allergy status to other drugs, medicaments and biological substances; Z91.018 Allergy to other foods; Z91.048 Other nonmedicinal substance allergy status
CPT/HCPCS: 49083; 80048; 85014; 85018; J1642; P9047

== ENCOUNTER 2020-08-13 09:23 | Day surgery (SDC) | payer OTHER ==
[2020-08-12 12:25] VITALS: BMI 31.3
[2020-08-13] MEDS ORDERED: Sodium Chloride 0.9% 10 ML ONE (09:55)
[2020-08-13] MEDS ORDERED: Lidocaine 1% PF 5 ML VIAL ONE (09:55)
[2020-08-13] MEDS ORDERED: Albumin 25% 200 ML ONE (09:55)
[2020-08-13 10:49] LABS: INR-International Normal Ratio 1.4; Prothrombin Time 17.4 sec (12.0-14.7)
[2020-08-13 10:59] LABS: Hemoglobin 8.5 g/dL (12.0-16.0); Mean Corpuscular HGB CONC 33.6 g/dL (32.0-36.0); Mean Corpuscular Hemoglobin 31.4 pg (27.0-31.0); Mean Corpuscular Volume 93.3 fL (78.0-98.0); Mean Platelet Volume 8.8 fL (7.4-10.4); Platelet Count 90 thou/uL (130-400); RBC Distribution Width 14.5 % (11.5-14.5); Red Blood Cell (RBC) Count 2.71 mill/uL (4.20-5.40); White Blood Cell (WBC) Count 4.9 thou/uL (4.8-10.8)
[2020-08-13 11:11] LABS: ALT (SGPT) 10 U/L (8-55); AST (SGOT) 21 U/L (5-34); Albumin 2.4 g/dL (3.5-5.0); Alkaline Phosphatase 91 U/L (40-110); Anion Gap 11 mmol/L (10-20); BUN (Urea Nitrogen) 19 mg/dL (9.8-20.1); Bilirubin, Total 0.9 mg/dL (0.2-1.2); Calc. Creatinine Clearance 65 mL/min (70-130); Calcium 7.9 mg/dL (7.8-10.44); Carbon Dioxide 22 mmol/L (22-29); Chloride 106 mmol/L (98-107); Globulin 2.6 g/dL (2.4-3.5); Glucose 201 mg/dL (70-105); Potassium 4.5 mmol/L (3.5-5.1); Sodium 134 mmol/L (136-145)
[2020-08-13 11:34] LABS: Band 6 % (5-11); Eosinophils 3 % (0-10); Lymphocytes 10 % (21-51); MDiff Complete? YES; Metamyelocyte 1 % (0-0); Monocytes 9 % (0-10); Neutrophil 70 % (42-75); Ovalocytes SLIGHT = 2-5 cells (100X) (0-1/hpf); Platelet Morphology Comment Appears Decreased; Polychromasia SLIGHT = 2-3 cells (100X) (0-2/hpf)
--- NOTE | 2020-08-13 11:34 | ULT ---
Paracentesis sonographic guided HISTORY: Symptomatic ascites. FINDINGS: After explaining the procedure and answering all questions, sonographic survey showed a lar ge amount of free fluid throughout the abdomen. Sterile technique, buffered local anesthesia, sonographic guidance, and a right lateral approach were used to carefully advance a 19-gauge Yueh needle and catheter into the free fluid. Catheter was left to drain a total volume of 7.0 L slightly cloudy liquid. Catheter was removed with moderate amount of fluid remaining. Patient was limited 7 L. Patient tolerated the procedure well and was dismissed in good condition. IMPRESSION : Technically successful sonographic guided paracentesis. 7.0 L.
[2020-08-13 11:42] VITALS: BP 102/60; TEMP 98.3
== END 2020-08-13 11:05 | disposition home or self-care (01) ==
LOC: ULT 09:23
PROVIDERS: ATTEND Internal Medicine Gastroenterology
PROC: 0W9G3ZZ Drainage of Peritoneal Cavity, Percutaneous Approach (ICD-10-PCS; principal; 2020-08-13)
DX: K74.60 Unspecified cirrhosis of liver (principal); R18.8 Other ascites; K72.90 Hepatic failure, unspecified without coma; J44.9 Chronic obstructive pulmonary disease, unspecified; F41.9 Anxiety disorder, unspecified; F32.9 Major depressive disorder, single episode, unspecified; I12.9 Hypertensive chronic kidney disease with stage 1 through stage 4 chronic kidney disease, or unspecified chronic kidney disease; E11.22 Type 2 diabetes mellitus with diabetic chronic kidney disease; N18.9 Chronic kidney disease, unspecified; D63.1 Anemia in chronic kidney disease; M19.90 Unspecified osteoarthritis, unspecified site; Z87.891 Personal history of nicotine dependence; Z79.4 Long term (current) use of insulin; Z79.899 Other long term (current) drug therapy; Z88.0 Allergy status to penicillin; Z88.2 Allergy status to sulfonamides; Z88.5 Allergy status to narcotic agent; Z88.6 Allergy status to analgesic agent; Z88.8 Allergy status to other drugs, medicaments and biological substances; Z91.018 Allergy to other foods
CPT/HCPCS: 49083; 80053; 85025; 85610; J1642; P9047

== ENCOUNTER 2020-08-27 09:11 | Day surgery (SDC) | payer OTHER ==
[2020-08-26 09:15] VITALS: BMI 25.0
[2020-08-27] MEDS ORDERED: Lidocaine 1% PF 5 ML VIAL ONE (10:55)
[2020-08-27] MEDS ORDERED: Albumin 25% 200 ML ONE (10:55)
[2020-08-27] MEDS ORDERED: Sodium Bicarbonate 2.5 MEQ/5 ML VIAL ONE (10:55)
[2020-08-27] MEDS ORDERED: Sodium Chloride 0.9% 10 ML ONE (11:14)
--- NOTE | 2020-08-27 12:09 | ULT ---
ULTRASOUND-GUIDED PARACENTESIS THERAPEUTIC: DATE: 08/27/2020 HISTORY: 54-year-old female with symptomatic ascites from alcoholic cirrhosis: Abdominal distention TECHNIQUE: Signed informed consent obtained. A four-quadrant survey of abdomen performed. Site selected for puncture: right lower quadrant Overlying skin prepared and draped in usual sterile fashion. 25-gauge needle used to apply buffered lidocaine superficially and deeply. 5 Liberian Yueh catheter with stylette advanced into the pocket of free intraperitoneal fluid. After drainage, the Yueh catheter was removed. Patient tolerated the procedure well. No complications. FINDINGS: Volume of ascites prior to procedure:large. Volume of ascites fluid in the drainage pocket after drainage:small. Volume of ascites fluid drained:7000 mL Appearance of ascites fluid: Clear. IMPRESSION: Successful therapeutic paracentesis, with drainage of 7 L of ascites fluid.
[2020-08-27 12:26] LABS: Hemoglobin 7.7 g/dL (12.0-16.0); INR-International Normal Ratio 1.3; Mean Corpuscular HGB CONC 33.2 g/dL (32.0-36.0); Mean Corpuscular Hemoglobin 31.5 pg (27.0-31.0); Mean Platelet Volume 5.9 fL (7.4-10.4); PTT 40.2 sec (22.9-36.1); Platelet Count 84 thou/uL (130-400); Prothrombin Time 16.5 sec (12.0-14.7); RBC Distribution Width 15.5 % (11.5-14.5); Red Blood Cell (RBC) Count 2.45 mill/uL (4.20-5.40); White Blood Cell (WBC) Count 3.3 thou/uL (4.8-10.8)
[2020-08-27 12:40] LABS: Band 7 % (5-11); Eosinophils 3 % (0-10); Lymphocytes 21 % (21-51); MDiff Complete? YES; Monocytes 5 % (0-10); Neutrophil 62 % (42-75); Nucleated RBC 1 % (0); Platelet Morphology Comment Appears Decreased; Polychromasia SLIGHT = 2-3 cells (100X) (0-2/hpf); Reactive Lymphocytes 2 % (0-10)
[2020-08-27 12:47] VITALS: BP 113/63; TEMP 97.8
[2020-08-27 13:01] LABS: ALT (SGPT) 16 U/L (8-55); AST (SGOT) 33 U/L (5-34); Albumin 2.4 g/dL (3.5-5.0); Alkaline Phosphatase 74 U/L (40-110); Anion Gap 13 mmol/L (10-20); BUN (Urea Nitrogen) 23 mg/dL (9.8-20.1); Calc. Creatinine Clearance 58 mL/min (70-130); Calcium 7.8 mg/dL (7.8-10.44); Carbon Dioxide 22 mmol/L (22-29); Chloride 105 mmol/L (98-107); Globulin 2.6 g/dL (2.4-3.5); Glucose 197 mg/dL (70-105); Potassium 3.7 mmol/L (3.5-5.1); Sodium 136 mmol/L (136-145)
== END 2020-08-27 11:50 | disposition home or self-care (01) ==
LOC: ULT 09:11
PROVIDERS: ATTEND Internal Medicine Gastroenterology
PROC: BW40ZZZ Ultrasonography of Abdomen (ICD-10-PCS; principal; 2020-08-27)
PROC: 0W9G3ZZ Drainage of Peritoneal Cavity, Percutaneous Approach (ICD-10-PCS; principal; 2020-08-27)
DX: K70.31 Alcoholic cirrhosis of liver with ascites (principal); Z79.4 Long term (current) use of insulin; Z79.899 Other long term (current) drug therapy; Z88.0 Allergy status to penicillin; Z88.2 Allergy status to sulfonamides; Z88.5 Allergy status to narcotic agent; Z88.6 Allergy status to analgesic agent; Z88.8 Allergy status to other drugs, medicaments and biological substances; Z91.018 Allergy to other foods
CPT/HCPCS: 49083; 80053; 85025; 85610; 85730; J1642; P9047

== ENCOUNTER 2020-08-28 14:00 | Inpatient (IN) | payer OTHER ==
[2020-08-28] MEDS ORDERED: Promethazine HCl 25 MG/ML VIAL ONE (14:29)
[2020-08-28] MEDS ORDERED: Pantoprazole 40 MG VIAL ONE (14:29)
[2020-08-28 14:43] LABS: Hemoglobin 7.4 g/dL (12.0-16.0); Mean Corpuscular HGB CONC 33.4 g/dL (32.0-36.0); Mean Corpuscular Hemoglobin 31.9 pg (27.0-31.0); Mean Corpuscular Volume 95.6 fL (78.0-98.0); Mean Platelet Volume 8.9 fL (7.4-10.4); Platelet Count 75 thou/uL (130-400); RBC Distribution Width 15.5 % (11.5-14.5); Red Blood Cell (RBC) Count 2.31 mill/uL (4.20-5.40); White Blood Cell (WBC) Count 6.2 thou/uL (4.8-10.8)
[2020-08-28 15:02] LABS: Anisocytosis SLIGHT = 6-15 cells (100X) (0-5/hpf); Band 9 % (5-11); Eosinophils 3 % (0-10); Lymphocytes 4 % (21-51); MDiff Complete? YES; Monocytes 7 % (0-10); Neutrophil 77 % (42-75); Ovalocytes SLIGHT = 2-5 cells (100X) (0-1/hpf); Platelet Morphology Comment Appears Decreased; Polychromasia SLIGHT = 2-3 cells (100X) (0-2/hpf)
[2020-08-28 15:04] LABS: ALT (SGPT) 20 U/L (8-55); AST (SGOT) 42 U/L (5-34); Albumin 2.9 g/dL (3.5-5.0); Alkaline Phosphatase 69 U/L (40-110); Anion Gap 17 mmol/L (10-20); BUN (Urea Nitrogen) 30 mg/dL (9.8-20.1); Bilirubin, Total 1.4 mg/dL (0.2-1.2); CK (CPK) 44 U/L (29-168); Calc. Creatinine Clearance 0 mL/min (70-130); Carbon Dioxide 19 mmol/L (22-29); Chloride 105 mmol/L (98-107); Globulin 2.4 g/dL (2.4-3.5); Glucose 245 mg/dL (70-105); Lipase 25 U/L (8-78); Potassium 3.5 mmol/L (3.5-5.1); Protein, Total 5.3 g/dL (6.0-8.3); Sodium 137 mmol/L (136-145)
--- NOTE | 2020-08-28 16:15 | PDOC.FPRHP ---
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 History obtained from her , Issa due to patient mental status. Upon waking up this morning, noticed she was having difficulty with word finding, typical of when her ammonia is elevated. He helped her out of bed and noticed that she had had a black, tarry stool in the bed. Subsequently developed vomiting which he describes as clear liquid vomit, specifically denies any blood in the vomitus. Yesterday, she was her usual self. Associated symptoms are dif ficult to obtain due to patient mental status - she endorses abdominal pain but states it is "nowhere" and "doesn't hurt", and feeling cold. Unable to fully assess ROS other than history collected from . Of note, had therapeutic paracentesis yesterday with 7L removed; usually has q2 week therapeutic paracentesis. Per chart review she is awaiting transplant. GI bleeding in past has been due to vascular ectasia of gastric antrum and has required multiple cauterizations. ED Course: ED course: phenergan, protonix 40 mg IV, 1 u PRBC, 1L NS - Allergies/Adverse Reactions Allergies Allergy/AdvReac Type Severity Reaction Status Date / Time acetaminophen [From Tylenol] Allergy Verified 08/26/20 09:03 aspirin Allergy Verified 08/26/20 09:03 bupropion [From Wellbutrin] Allergy Verified 08/26/20 09:03 butorphanol [From Stadol] Allergy Verified 08/26/20 09:03 codeine Allergy Verified 08/26/20 09:03 morphine Allergy Verified 08/26/20 09:03 Penicillins Allergy vomiting Verified 08/26/20 09:03 silver Allergy Verified 08/26/20 09:03 [From Tegaderm AG Mesh] Sulfa (Sulfonamide Allergy Verified 08/26/20 09:03 Antibiotics) persimmon Allergy Uncoded 08/26/20 09:03 - Home Medications Medication Instructions Recorded Confirmed Type Spironolactone [Aldactone] 100 mg PO BID 01/10/19 08/28/20 History Albuterol Sulfate [Proair HFA] 2 puff INH Q6HR PRN 05/30/19 08/28/20 History Cyanocobalamin (Vitamin B-12) 1,000 mcg PO DAILY 05/30/19 08/28/20 History [Vitamin B-12] Ferrous Sulfate 325 mg PO TID 05/30/19 08/28/20 History Folic Acid [Folvite] 1 mg PO DAILY 05/30/19 08/28/20 History Melatonin 10 mg PO HS PRN 05/30/19 08/28/20 History Rifaximin [Xifaxan] 550 mg PO BID 05/30/19 08/28/20 History busPIRone HCl [Buspar] 10 mg PO BID 05/30/19 08/28/20 History traMADol HCl [Tramadol HCl] 100 mg PO QID PRN 05/30/19 08/28/20 History Pantoprazole [Protonix] 40 mg PO BID 06/23/19 08/28/20 History Loratadine 10 mg PO HS 07/25/19 08/28/20 History Midodrine HCl [ProAmatine] 5 mg PO TID-WM tab 08/26/19 08/28/20 Rx Fluticasone Propionate [Flonase 2 spray EA NARE DAILY 09/05/19 08/28/20 History Nasal Weir] Magnesium Oxide 500 mg PO DAILY 09/19/19 08/28/20 History Lactulose 30 ml PO BID 10/09/19 08/28/20 History Furosemide 40 mg PO BID 04/09/20 08/28/20 History Cholecalciferol (Vitamin D3) 1,000 unit PO BID 06/04/20 08/28/20 History [Vitamin D] Multivitamin [Daily Multiple 2 each PO DAILY 06/04/20 08/28/20 History Vitamin] Insulin Glargine,Hum.Rec.Anlog 5 unit SC DAILY 08/14/20 08/28/20 History [Lantus Solostar] hydrOXYzine HCl [Hydroxyzine HCl] 25 mg PO Q6HR PRN 08/28/20 08/28/20 History - History Obtained by chart review: PMHx: chronic iron deficiency anemia, anxiety, HTN, esophageal varices, asthma, GERD, cirrhosis, fatty liver, spinal stenosis, hyperglycemia, allergic rhinitis PSHx: cholecystectomy, endometrial ablation, esophageal varices banding, TIPS, multiple EGDs/colonoscopies, tonsilectomy, cesearean sectionx 3 FHx: diabetes, heart disease, lung cancer Social: tobacco use, past etoh use but denies current use, no know drug use - Review of Systems ROS unobtainable: due to mental status Gastrointestinal: reports: vomiting, abdominal pain, GI bleeding Neurological: reports: other (disoriented) - Vital signs BP: 118/76 HR: 113 RR: 16 Tmax: 99.2F Pox: 100 % on RA Wt: 79.4 kg - Physical Exam Constitutional: other (Awake, alert. Appears uncomfortable due to pain. Oriented to self, location. Not oriented to time or situation.) HEENT: normocephalic and atraumatic, conjunctiva clear, grossly normal hearing, MMM Neck: supple Heart: no murmurs/rubs/gallops, pulses present, no edema -Heart: tachycardia Lungs: CTAB, no respiratory distress Abdomen: soft, non-tender -Abdomen: mild diffuse abdominal tenderness, waxing and waning quality Musculoskeletal: normal structure, normal tone Neurological: no focal deficit Skin: other (mild jaundice) Heme/Lymphatic: other -Heme/Lymphatic: scattered purpura Psychiatric: other -Psychiatric: Not oriented to situation or time, poor recall of why she came to ER FMR H&P: Results - Labs Result Diagrams: 08/28/20 14:27 08/28/20 14:27 Lab results: WBC 6.2 thou/uL (4.8-10.8) 08/28/20 14:27 Hgb 7.4 g/dL (12.0-16.0) L 08/28/20 14:27 Hct 22.1 % (36.0-47.0) L 08/28/20 14:27 MCV 95.6 fL (78.0-98.0) 08/28/20 14:27 Plt Count 75 thou/uL (130-400) L 08/28/20 14:27 Band Neuts % (Manual) 9 % (5-11) 08/28/20 14:27 Sodium 137 mmol/L (136-145) 08/28/20 14:27 Potassium 3.5 mmol/L (3.5-5.1) 08/28/20 14:27 Chloride 105 mmol/L (98-107) 08/28/20 14:27 Carbon Dioxide 19 mmol/L (22-29) L 08/28/20 14:27 BUN 30 mg/dL (9.8-20.1) H 08/28/20 14:27 Creatinine 1.51 mg/dL (0.6-1.1) H 08/28/20 14:27 Glucose 245 mg/dL (70-105) H 08/28/20 14:27 Lactic Acid 2.2 mmol/L (0.5-2.2) 08/28/20 14:27 Calcium 8.0 mg/dL (7.8-10.44) 08/28/20 14:27 Total Bilirubin 1.4 mg/dL (0.2-1.2) H 08/28/20 14:27 AST 42 U/L (5-34) H 08/28/20 14:27 ALT 20 U/L (8-55) 08/28/20 14:27 Alkaline Phosphatase 69 U/L (40-110) 08/28/20 14:27 Ammonia 60 umol/L (18-72) 08/28/20 14:29 Creatine Kinase 44 U/L (29-168) 08/28/20 14:27 Serum Total Protein 5.3 g/dL (6.0-8.3) L 08/28/20 14:27 Albumin 2.9 g/dL (3.5-5.0) L 08/28/20 14:27 Lipase 25 U/L (8-78) 08/28/20 14:27 FMR H&P: A/P - Plan GI bleeding Mildly tachycardic, otherwise hemodynamically stable. Black, tarry stools x 1 day. Hx of bleeds due to vascular ectasia of gastric antrum. s/p 40mg IV protonix and 1u PRBC in ER. - NPO, sips with meds - protonix ggt - lower suspicion for esophageal varices but will treat with octreotide at this time - f/u RUQ US with doppler to evaluate TIPS patency, may discontinue octreotide if TIPS patent - will tx with rocephin due to GI bleeding in cirrhosis - GI consulted, discussed case with Dr. Fernandes and appreciate recommendations Acute metabolic encephalopathy Likely due to elevated ammonia - 60 on admission. Consider SBP as possible etiology as well, especially with risk factor of frequent paracentesis, most recently yesterday. - tx with lactulose, titrate to 2-3 BMs per day - continue to monitor mental status - request diagnostic tap for ascitic fluid to assess for SBP and direct whether she may need outpatient abx prophylactically - rocephin as above Cirrhosis Severe, awaiting transplant although unclear if she is still smoking/if this is a barrier to future transplant. Therapeutic paracentesis every 2 weeks, most recently yesterday. Unfortunately, no ascitic fluid available from yesterday's paracentesis for diagnostic evaluation. -INR 1.4, no need for vitamin K supplementation at this time Macrocytic Anemia Hgb 7.4, MCV 95. Likely chronic with superimposed blood loss anemia. Hgb 8.5 two weeks ago, gradually dropped from 10 over the past 3 months. - transfused 1 u PRBC in ER - monitor H/H HTN Normotensive today. 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 Symptoms started today when she woke and reported by her . She had a therapeutic paracentesis which is apparently every [address] Schmid. She was her normal self for the prior couple of days as well. She reported some abdominal gas but otherwise no symptoms. No fevers were noted. They did note melena. She has history of gastric ozzing in the past. Her Hgb yesterday was 7.6. For 2 weeks Hgb has steadily declined. Hx of varices but on a 2019 EGD no varices were noted just prior bandings in the distal esophagus. History overall is difficult to obtain from patient. Unsure if she has been taking medications appropriately. # GI Bleed - likely from vascular ectasia of gastric antrum but cannot rule out variceal bleed # Hypertensive Gastropathy - 1 pRBC's transfused - pending H/H four hours post-transfusion - monitor for hemodynamic instability but appropriate for medical - GI consulted - appreciate recs - Protonix drip - initiate octreotide - NPO # Hepatic/Metabolic Encephalopthy 2/2 ammnonia vs cirrhosis vs SBP - Initiate lactulose for 3-5 BM's per day - Will hold ceftriaxone per GI - Run diagnostic labs on ascites from paracentensis on 08/27 - if not available will schedule diagnostic paracentesis # Cirrhosis w/ hx of TIPS - RUQ U/S per GI to assess for patency of prior TIPS procedure in 2019. Chronic medical problems per Mainframe Systems Administrator Note. - Plan Date/Time: 08/28/20 1615 I, , have evaluated this patient and agree with findings/plan as outlined by internet and e business project manager resident. Pertinent changes/additions are listed here. Addendum - Attending - Attending Attestation Date/Time: 08/28/202106 I personally evaluated the patient and discussed the management with Dr. Galvan. I agree with the History, Examination, Assessment and Plan documented above with any addition or exceptions noted below. Blood transfusion ongoing. GI consulted and we are following their guidance.
--- NOTE | 2020-08-28 16:42 | RAD ---
PORTABLE CHEST: 08/28/20 INDICATIONS: Abdominal pain. COMPARISON: 09/19/19. Central line remains in place overlying the SVC. The lung stokes appear clear and unchanged. Heart an d mediastinum unremarkable. IMPRESSION: No acute lung process identified. POS: AGW
[2020-08-28] MEDS ORDERED: Dextrose 5% in Water 1,000 ML IV PRN (17:09)
[2020-08-28] MEDS ORDERED: Dextrose 50% Abboject 50 ML SYRINGE SLOW IVP PRN (17:09)
[2020-08-28] MEDS ORDERED: Octreotide Acetate 1,250 MCG in Sodium Chloride 0.9% 250 ML 250 ML IVPB SCH (17:15)
[2020-08-28] MEDS ORDERED: PROVENTIL INHALER 6.7 G (200 INHALATIONS) INH PRN (17:28)
[2020-08-28] MEDS ORDERED: Pantoprazole 80 MG in Sodium Chloride 0.9% 100 ML IVPB SCH (17:30)
[2020-08-28] MEDS ORDERED: Octreotide Acetate 50 MCG/ML AMP SLOW IVP SCH (17:30)
[2020-08-28 17:34] LABS: INR-International Normal Ratio 1.4; PTT 37.2 sec (22.9-36.1); Prothrombin Time 17.6 sec (12.0-14.7)
[2020-08-28 18:05] LABS: Lactic Acid 1.8 mmol/L (0.5-2.2)
[2020-08-28 18:21] VITALS: BMI 28.3
[2020-08-28] MEDS ORDERED: Octreotide Acetate 100 MCG/ML VIAL SLOW IVP SCH (18:30)
[2020-08-28] MEDS: cefTRIAXone\\ROCEPHIN 1 GM in Sodium Chloride 0.9% 100 ML IVPB SCH (21:53)
[2020-08-29] MEDS: Melatonin 3 MG TAB PO PRN ×2 (00:18→22:46)
[2020-08-29 00:41] LABS: SARS-CoV-2 MS2 Positive; SARS-CoV-2 N Gene Negative; SARS-CoV-2 S Gene Negative; SARS-CoV-2 by NAA Not Detected (NotDetected); SARS-CoV-2 orf1ab Negative
[2020-08-29 05:28] LABS: ALT (SGPT) 18 U/L (8-55); AST (SGOT) 35 U/L (5-34); Albumin 2.5 g/dL (3.5-5.0); Alkaline Phosphatase 61 U/L (40-110); Anion Gap 13 mmol/L (10-20); BUN (Urea Nitrogen) 28 mg/dL (9.8-20.1); Bilirubin, Total 2.1 mg/dL (0.2-1.2); Calc. Creatinine Clearance 53 mL/min (70-130); Calcium 7.3 mg/dL (7.8-10.44); Carbon Dioxide 18 mmol/L (22-29); Chloride 110 mmol/L (98-107); Glucose 207 mg/dL (70-105); Potassium 3.4 mmol/L (3.5-5.1); Protein, Total 4.5 g/dL (6.0-8.3); Sodium 138 mmol/L (136-145)
[2020-08-29 05:37] LABS: INR-International Normal Ratio 1.5; Prothrombin Time 18.7 sec (12.0-14.7)
[2020-08-29 05:38] LABS: Band 6 % (5-11); Eosinophils 2 % (0-10); Hemoglobin 7.6 g/dL (12.0-16.0); Hypochromia SLIGHT = 6-15 cells (100X) (0-5/hpf); Lymphocytes 10 % (21-51); MDiff Complete? YES; Mean Corpuscular HGB CONC 35.4 g/dL (32.0-36.0); Mean Corpuscular Volume 93.3 fL (78.0-98.0); Mean Platelet Volume 8.6 fL (7.4-10.4); Monocytes 6 % (0-10); Neutrophil 76 % (42-75); Platelet Count 69 thou/uL (130-400); Platelet Morphology Comment Appears Adequate; RBC Distribution Width 15.7 % (11.5-14.5); Red Blood Cell (RBC) Count 2.29 mill/uL (4.20-5.40); White Blood Cell (WBC) Count 3.9 thou/uL (4.8-10.8)
--- NOTE | 2020-08-29 06:47 | PDOC.FM ---
- Subjective Subjective: No acute events overnight. Pt is alert, oriented this morning. Reports 4 black stools last night, no bright red bleeding. States she has been having black stools for the past 1 week, tried increasing her lactulose at home but it did not improve her symptoms. Her abdominal pain has improved until her abdomen is palpated. Continues to c/o feeling cold. Discussed with patient she may be admitted for a few days for management of her suspected upper GI bleeding, expresses concern that she wants to be home to prepare a New Year's meal for her family. Reports low back pain typical of her spinal stenosis. - Objective Vital Signs & Weight: Vital Signs (12 hours) Temp Pulse Resp BP Pulse Ox 08/29/20 04:00 98.8 F 113 H 16 118/62 96 08/29/20 00:00 98.3 F 104 H 18 120/66 100 08/28/20 19:45 98.5 F 102 H 12 119/58 L 100 08/28/20 19:09 100 Weight Weight 79.492 kg I&O: 08/27/20 08/28/20 08/29/20 06:59 06:59 06:59 Intake Total 559 Balance 559 Result Diagrams: 08/29/20 12:37 08/29/20 04:31 Phys Exam - Physical Examination Constitutional: NAD HEENT: moist MMs Neck: supple Respiratory: clear to auscultation bilateral Cardiovascular: RRR, no significant murmur Gastrointestinal: non-tender, positive bowel sounds moderately distended Musculoskeletal: no edema, pulses present Neurological: non-focal, moves all 4 limbs Psychiatric: A&O x 3 Deviation from normal: mild jaundice Dx/Plan - Plan Plan: GI bleeding, suspected upper GI source Remains tachycardic, otherwise hemodynamically stable. Transfused 1u PRBC yesterday for Hgb 7.4, Hgb relatively unchanged at 7.6 s/p transfusion. - NPO, sips with meds - protonix ggt - TIPS patent on RUQ US, plan to discontinue octreotide - will tx with rocephin due to GI bleeding in cirrhosis - recheck H/H this afternoon to evaluate if additional transfusion is indicated - GI consulted, appreciate recommendations Acute metabolic encephalopathy Likely due to elevated ammonia - 60 on admission. Consider SBP as possible etiology as well, especially with risk factor of frequent paracentesis, most recently yesterday. - tx with lactulose, titrate to 2-3 BMs per day - continue to monitor mental status - request diagnostic tap for ascitic fluid to assess for SBP and direct whether she may need outpatient abx prophylactically; appears she is on rifaximin at home - rocephin as above Cirrhosis Severe, awaiting transplant although unclear if she is still smoking/if this is a barrier to future transplant. Therapeutic paracentesis every 2 weeks, most recently yesterday. Unfortunately, no ascitic fluid available from yesterday's paracentesis for diagnostic evaluation. -INR 1.4, no need for vitamin K supplementation at this time Macrocytic Anemia Hgb 7.4, MCV 95. Likely chronic with superimposed blood loss anemia. Hgb 8.5 two weeks ago, gradually dropped from 10 over the past 3 months. - transfused 1 u PRBC in ER - monitor H/H HTN Normotensive today. - hold home meds due to GI bleeding, potential for hypotension if bleeding worsens - will reassess need for anti-hypertensives in the AM Chronic conditions: Anxiety - resume home buspar, held hydroxyzine to avoid clouding mental status Asthma - home albuterol PRN GERD - aware, held home PPI while on protonix gtt Spinal stenosis - resume home tramadol Allergic rhinitis - resume home flonase, hold claritin to avoid clouding mental status Dispo: admit to medical, eLOS >48hrs Addendum - Attending - Attending Attestation Date/Time: 08/29/20 [id number] I personally evaluated the patient and discussed the management with Dr. Galvan. I agree with the History, Examination, Assessment and Plan documented above with any addition or exceptions noted below. Patient mentation improved. Going for EGD today. Continue Protonix and Octreotide until procedure. GI on board. Diagnostic para today.
--- NOTE | 2020-08-29 07:06 | CON ---
DATE OF CONSULTATION: 08/28/2020 REASON FOR CONSULTATION: Melena, history of cirrhosis, and altered mental status. CONSULTING PROVIDER: Rere Galvan DO HISTORY OF PRESENT ILLNESS: The patient is a 54-year-old female with past medical history of hypertension, diabetes, depression, GERD, asthma, and cirrhosis complicated by hepatic encephalopathy, esophageal varices with bleeding, now status post TIPS, presenting with complaints of altered mental status, abdominal pain, and melenic stools. Unfortunately, the patient is a poor historian with an altered mental status on interview today, but was able to provide at least some history regarding her current clinical situation. She states that she was in her usual state of health until approximately 2 weeks ago when she began having increased periumbilical abdominal pain characterized as a shooting/sharp type sensation, was nonradiating, was initially intermittent, but becoming more constant with waxing/waning severity over the last week and reaching a severity of 9/10. The pain was worse with eating, primarily solid foods and with the act of having a bowel movement, better with the administration of tramadol and following the bowel movement itself. However, with this increasing abdominal pain, it seemed fairly well controlled until yesterday evening she began having darker black-colored stools that were semi-solid in consistency and this continued into this morning, where she experienced increased dizziness, altered mental status, followed by a dark black semi-solid/liquid stool, nonbloody, nausea and vomiting, that ultimately prompted her admission to [facility] ER. In the ER, the patient did exhibit altered mental status, being somewhat belligerent per ER nursing staff, but having waxing/waning temperament. There were no episodes of hematemesis, melena, or hematochezia while being observed in the ER. Currently, she denies any fevers, chills, hematemesis, hematochezia, constipation, or weight loss. However, the patient did perseverate primarily on maintaining her blood sugars at a lower level. Of note, the patient underwent a paracentesis yesterday with approximately 7 L of fluid removed at that time, but no testing of the fluid was performed for possible SBP. 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 She does have a history of bleeding gastric antral vascular ectasias in the past as well as friability of her portal hypertensive gastropathy, which prompted a TIPS procedure approximately 1.5 to 2 years ago. She has had her TIPS interrogated in the past and has had periods of time, where it was occluded with revision performed at that time. REVIEW OF SYSTEMS: A 10-category review of systems was obtained with all responses negative except for the pertinent positives as listed in HPI. PAST MEDICAL HISTORY: As per HPI. PAST SURGICAL HISTORY: TIPS placement with revision for refractory ascites and portal hypertension, multiple upper endoscopies, and colonoscopy. FAMILY HISTORY: Denies any GI malignancies. SOCIAL HISTORY: Denies any tobacco, alcohol, or illicit drug use. OUTPATIENT MEDICATIONS: Reviewed. ALLERGIES: ACETAMINOPHEN, ASPIRIN, BUTORPHANOL, CODEINE, MORPHINE, PENICILLIN, SULFA, SILVER AND PERSIMMON. PHYSICAL EXAMINATION: VITAL SIGNS: Temperature 99.2, pulse 111, blood pressure 121/58, respiratory rate 16, and saturating 100% on room air. GENERAL: The patient was lying in bed, in no acute distress. Alert and oriented x2. HEENT: Normocephalic and atraumatic. NECK: Supple. No JVD or scleral icterus noted. CARDIOVASCULAR: Tachycardic rate, but regular rhythm. No discernible murmurs, gallops, or rubs. RESPIRATORY: Clear to auscultation bilaterally with no discernible wheezes or rales. ABDOMEN: Normoactive bowel sounds. Soft. Moderately distended. Tenderness to palpation to both light and deep palpation in all abdominal quadrants. Positive shifting dullness. EXTREMITIES: Trace bilateral lower extremity edema extending to the . LABORATORY DATA: CBC with a white blood cell count of 6.2, hemoglobin 7.4, hematocrit 22.1, and platelets 75. INR 1.4. Chemistry with a sodium of 137, potassium 3.5, chloride 105, CO2 of 19, BUN 30, creatinine 1.51, and glucose 245. AST 42, ALT 20, alkaline phosphatase 69, total bilirubin 1.4, albumin 2.9, ammonia 60, and calculated MELD-sodium score of 17. IMAGING DATA: Chest x-ray was performed on August 28, 2020, which showed central line remaining in place overlying the SVC. Lung stokes appeared clear and unchanged with no evidence of cardiopulmonary process. ASSESSMENT AND PLAN: The patient is a 54-year-old female with past medical history of diabetes, hypertension, depression, gastroesophageal reflux disease, asthma, and cirrhosis complicated by hepatic encephalopathy and esophageal varices and refractory ascites status post transjugular intrahepatic portosystemic shunt as well as gastric antral vascular ectasias that have bled in the past, now presenting with altered mental status and melenic stools concerning for gastrointestinal bleeding. 1. Gastrointestinal bleeding. The patient is presenting with a history of having 2 dark black semi-solid stools with 1 episode yesterday and another episode today concerning for the presence of possible gastrointestinal bleeding. When evaluated in the ER, the patient did exhibit tachycardia, but did not exhibit any hypotension consistent with active massive gastrointestinal bleeding. On evaluation of the patient's H and H, it has decreased somewhat from baseline with her baseline H and H being between 8.5 and 10. However, she does have an elevated BUN to creatinine ratio and when coupled with her drop in H and H and a history of bleeding gastric antral vascular ectasias, it is concerning for an upper gastrointestinal bleed. At this time, the most likely explanation would be continued bleeding from her vascular ectasias within the gastric antrum as seen on her most recent upper endoscopy in December of this year. However, esophageal varices are within the differential, especially given a history of occluded transjugular intrahepatic portosystemic shunt, which could contribute to increased pressure within the varices and subsequent rupture. Recommendations;. a. Would continue to trend her H and H and transfuse as necessary to maintain an H and H of 7/21. b. Continue to monitor clinically for signs of active gastrointestinal bleeding. c. Agree with giving the patient blood product as well as IV fluids as part of resuscitative efforts in light of gastrointestinal bleeding. d. We will place the patient on a proton pump inhibitor drip in addition to octreotide given the possibility of bleeding vascular ectasias or varices respectively. e. We will place the patient on ceftriaxone 1 g daily in light of gastrointestinal bleeding in a cirrhotic patient. f. Would continue the patient on n.p.o. status with plans for upper endoscopy tomorrow morning for further evaluation. g. Would avoid any anticoagulation or nonsteroidal anti-inflammatory drugs in light of her possible active gastrointestinal bleed. 2. Abdominal pain. The patient is presenting with a 2-week history of abdominal pain that was initially intermittent, but now more constant over the last week and characterized as a shooting/sharp type sensation. The patient does have a history of ascites, but per review of her ascites fluid analysis over the last year, she does not have any history of spontaneous bacterial peritonitis. However, on physical examination today, she is tender to palpation in all abdominal quadrants to both light and deep palpation after the removal of 7 L of fluid yesterday via paracentesis. At this time, there was concern for spontaneous bacterial peritonitis, especially since the fluid yesterday was not analyzed for possible infection. Recommendations;. a. Would perform diagnostic paracentesis for analysis of the fluid for possible spontaneous bacterial peritonitis including cytology/cell count and fluid culture. b. Pain control per primary team. 3. Hepatic cirrhosis. The patient is presenting with a history of cirrhosis with most likely etiology being nonalcoholic steatohepatitis versus alcohol abuse versus a combination of the two. The patient is currently being evaluated by [facility] in [place], but it is unclear if the patient has been listed on the transplant list thus far due to a lack of elevated MELD score. Currently presenting with decompensated disease given the presence of ascites, lower extremity edema, and hepatic encephalopathy. Currently presenting with a MELD score of 17 with Child Pederson Classification C. Recommendations;. a. Would start the patient on lactulose 30 g every 6 hours until the patient's sensorium improves, then decrease to twice daily after that. We would continue the patient on her outpatient rifaximin in light of her history of hepatic encephalopathy and transjugular intrahepatic portosystemic shunt procedure in the past (which can predispose her to encephalopathy). b. Would hold on any diuretics for the time being and monitor for recent gastrointestinal bleeding and possible hypotension with administration. We will continue to follow. Please call with any questions. Job ID: [id number]
--- NOTE | 2020-08-29 07:36 | ULT ---
Hepatic sonogram with duplex evaluation HISTORY: GI bleed. Cirrhosis. FINDINGS: Gallbladder surgically absent. Common duct not visualized. No intrahepatic biliary dilatati on. Cirrhotic appearance of the liver. Large amount of free fluid throughout the abdomen. Spleen measures up to 16.7 cm without focal abnormality. Good color and spectral Doppler flow within the hepatic and splenic arteries. Transjugular intrahepatic portosystemic shunt is in place with good internal flow. Portal vein is pat ent. Direction of flow is difficult to determine, although the patent TIPS argues that flow is in the appropriate direction. Hepatic venous flow is towards the IVC. IMPRESSION : Hepatic TIPS and portal vein are patent. Findings of portal venous hypertension including moderate splenomegaly and ascites. Prior cholecystectomy.
[2020-08-29] MEDS ORDERED: Non-Formulary Item 1 EACH (Ferrous Sulfate [Ferrous Sulfate] 325 MG Tablet) PO SCH (09:00)
[2020-08-29] MEDS ORDERED: Insulin Glargine 5 UNITS in Pre-Filled Syringe 1 EACH SC SCH (09:00)
[2020-08-29] MEDS ORDERED: Non-Formulary Item 1 EACH (Insulin Glargine,Hum.Rec.Anlog [Lantus Solostar] 100 UNIT/ML P SC SCH (09:00)
[2020-08-29] MEDS ORDERED: CYANOCOBALAMIN 2000 MCG PO SCH (09:00)
[2020-08-29] MEDS ORDERED: [UNRECOGNIZED DRUG - OTHER] PO SCH (09:00)
[2020-08-29] MEDS ORDERED: Non-Formulary Item 1 EACH (Multivitamin [Daily Multiple Vitamin] 1 EACH Tablet) PO SCH (09:00)
[2020-08-29] MEDS ORDERED: Fluticasone Propionate Nasal Spray 16 gm Bottle NASAL SCH (09:00)
[2020-08-29] MEDS ORDERED: MAGNESIUM OXIDE 500 MG PO SCH (09:00)
[2020-08-29] MEDS ORDERED: Non-Formulary Item 1 EACH (Cholecalciferol (Vitamin D3) [Vitamin D] 1000 UNIT Capsule) PO SCH (09:00)
[2020-08-29] MEDS ORDERED: Promethazine HCl 25 MG/ML VIAL IM PRN (11:59)
[2020-08-29] MEDS ORDERED: Ondansetron HCl/PF 4 MG/2 ML Vial IVP PRN (11:59)
[2020-08-29] MEDS ORDERED: Promethazine HCl 25 MG/ML VIAL SLOW IVP PRN (11:59)
--- NOTE | 2020-08-29 12:24 | OP ---
DATE OF PROCEDURE: 08/29/2020 PROCEDURE PERFORMED: Esophagogastroduodenoscopy with control of hemorrhage. PREOPERATIVE DIAGNOSES: 1. Anemia of acute blood loss. 2. Gastrointestinal bleed. 3. Cirrhosis. 4. Gastric antral vascular ectasias. DESCRIPTION OF PROCEDURE: Informed consent was obtained from the patient. She was sedated with total intravenous anesthesia. The bite block was placed and the endoscope was advanced easily to the second portion of the duodenum and retroflexion was performed in the stomach. The esophagus was normal. There were no varices. The GE junction was normal. There was severe portal hypertensive gastropathy in the body and fundus of the stomach. There were gastric antral vascular ectasias in the antrum. Much of the antrum has been replaced by scar from prior cautery of the gastric antral vascular ectasias. Still there was some accumulation of blood in the antrum where there was mild active bleeding from a focal vascular ectasia site. This site was cauterized with argon plasma coagulation. Additional vascular ectasias were cauterized extensively in the antrum. The pylorus and first and second portions of the duodenum were unremarkable. Retroflexed views in the stomach revealed severe portal hypertensive gastropathy and thick folds, but again no obvious gastric varices. IMPRESSION: 1. 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 2. Severe portal hypertensive gastropathy. 3. No esophageal varices. RECOMMENDATIONS: 1. Advance diet. 2. Follow trend of her hemoglobin and transfuse as necessary. 3. Proton pump inhibitor and antibiotics. Job ID: [id number]
[2020-08-29 12:52] LABS: Hemoglobin 8.6 g/dL (12.0-16.0); Platelet Count 80 thou/uL (130-400)
[2020-08-29] MEDS: traMADol HCl 50 MG TAB PO PRN ×3 (13:05→22:52)
[2020-08-29] MEDS: Spironolactone 100 MG TAB PO SCH ×2 (13:06→22:47)
[2020-08-29] MEDS: Multivit, Therapeutic 1 TAB PO SCH (13:06)
[2020-08-29] MEDS: Cholecalciferol 1,000 UNITS (25 MCG) TAB PO SCH ×2 (13:07→22:48)
[2020-08-29] MEDS: Cyanocobalamin (Vitamin B-12) 1,000 MCG TAB PO SCH (13:07)
[2020-08-29] MEDS: Midodrine HCl 5 MG TAB PO SCH ×2 (13:07→17:17)
[2020-08-29] MEDS: Ferrous Sulfate 325 MG TAB PO SCH ×3 (13:07→22:48)
[2020-08-29] MEDS: Magnesium Oxide 250 MG TAB PO SCH (13:07)
[2020-08-29] MEDS: Folic Acid 1 MG TAB PO SCH (13:08)
[2020-08-29] MEDS: Furosemide 40 MG TAB PO SCH ×2 (13:08→22:48)
[2020-08-29] MEDS: busPIRone HCl 10 MG TAB PO SCH ×2 (13:08→22:48)
[2020-08-29] MEDS: Fluticasone Propionate Nasal Spray 16 gm Bottle NASAL SCH (13:08)
--- NOTE | 2020-08-29 14:23 | ULT ---
Sonographic guided paracentesis HISTORY: Symptomatic ascites. Possible peritonitis. FINDINGS: After explaining the procedure and answering all questions, sonographic survey showed a lar ge amount of free fluid throughout the abdomen. Sterile technique, buffered local anesthesia, sonographic guidance, and a left lateral approach were used to carefully advance a 19-gauge Yueh needle and catheter into the free fluid. Catheter was left to drain a total volume of 3.0 L clear yellow liquid. Catheter was removed with moderate amount of fluid remaining. Patient tolerated the procedure well an d was returned in unchanged condition. IMPRESSION : Technically successful sonographic guided paracentesis. 3.0 L. Fluid sent to laboratory for analysis.
[2020-08-29 16:03] LABS: RBC Count-Automated (BF) 604 /cu.mm; WBC/Nucleated-Auto (BF) 53 uL
[2020-08-29 16:17] LABS: BF Color Yellow; Body Fluid Source Ascites Body Fluid; Clarity Hazy (Clear); Tube # EDTA
[2020-08-29 16:20] LABS: BF Segmented Neutrophils 39 %; Cell Count Non Hematic 36 %; Lymphocytes 25 %
[2020-08-29] MEDS: HumaLOG 300 UNITS/3 ML VIAL SC PRN ×2 (17:18→22:46)
[2020-08-29] MEDS ORDERED: Pantoprazole 40 MG VIAL IVP SCH (21:00)
[2020-08-29] MEDS: Rifaximin 550 MG TAB PO SCH (22:48)
[2020-08-29] MEDS: cefTRIAXone\\ROCEPHIN 1 GM in Sodium Chloride 0.9% 100 ML IVPB SCH (22:52)
[2020-08-30] MEDS: HumaLOG 300 UNITS/3 ML VIAL SC PRN (06:10)
--- NOTE | 2020-08-30 06:18 | PDOC.FM ---
- Subjective Subjective: No acute events overnight. Reports she is feeling well and would like to go home. She is alert and oriented, endorses at least 3-4 BMs yesterday. Abdominal pain has resolved since her EGD. Endorses mild pain over her paracentesis site from yesterday. No new complaints. - Objective Vital Signs & Weight: Vital Signs (12 hours) Temp Pulse Resp BP Pulse Ox 08/30/20 04:00 97.9 F 91 18 102/88 98 08/30/20 03:39 100 08/29/20 23:46 97.6 F 88 19 100/54 L 100 08/29/20 20:00 97.5 F L 82 19 112/63 100 Weight Admit Weight 79.492 kg Weight 79.492 kg I&O: 08/28/20 08/29/20 08/30/20 06:59 06:59 06:59 Intake Total 559 942 Balance 559 942 Result Diagrams: 08/30/20 06:30 08/30/20 06:30 Phys Exam - Physical Examination Constitutional: NAD HEENT: moist MMs Neck: supple Respiratory: clear to auscultation bilateral Cardiovascular: RRR, no significant murmur Gastrointestinal: soft, positive bowel sounds moderate distention Musculoskeletal: no edema, pulses present Neurological: non-focal, moves all 4 limbs Psychiatric: normal affect, A&O x 3 Skin: no rash Deviation from normal: scattered purpura Dx/Plan - Plan Plan: Upper GI bleed s/p EGD w/cauterization EGD 08/29 for suspected upper GI bleed. Remarkable for gastric antral vascular ectasias with active bleeding requiring extensive cauterization. Tachycardia has resolved s/p procedure. H/H stable this AM at 8.8/26.7. - Advance diet as tolerated per GI - tolerating PO intake, changed protonix to PO BID - will tx with rocephin due to GI bleeding in cirrhosis - GI consulted, appreciate recommendations Acute metabolic encephalopathy Likely due to elevated ammonia - 60 on admission. Consider SBP as possible etiology as well, especially with risk factor of frequent paracentesis, most recently yesterday. - tx with lactulose, titrate to 2-3 BMs per day - continue to monitor mental status - diagnostic tap yesterday, no organisms noted on preliminary cx results - rocephin as above Cirrhosis Severe, awaiting transplant although unclear if she is still smoking/if this is a barrier to future transplant. Therapeutic paracentesis every 2 weeks. -INR 1.4, no need for vitamin K supplementation at this time Macrocytic Anemia Hgb 7.4, MCV 95. Likely chronic with superimposed blood loss anemia. Hgb 8.5 two weeks ago, gradually dropped from 10 over the past 3 months. - transfused 1 u PRBC in ER - monitor H/H HTN Normotensive today. - resumed home medications Chronic conditions: Anxiety - resume home buspar, held hydroxyzine to avoid clouding mental status Asthma - home albuterol PRN GERD - aware, on PPI as above Spinal stenosis - resume home tramadol Allergic rhinitis - resume home flonase, hold claritin to avoid clouding mental status Dispo: pending clinical improvement Addendum - Attending - Attending Attestation Date/Time: 08/30/20 [id number] I personally evaluated the patient and discussed the management with Dr. Galvan. I agree with the History, Examination, Assessment and Plan documented above with any addition or exceptions noted below. Patient doing well. h/H stable, tolerating diet, mentation at baseline. Awaiting GI recs but hopeful for dc today.
[2020-08-30 06:38] LABS: Hemoglobin 8.8 g/dL (12.0-16.0); Mean Corpuscular Hemoglobin 31.4 pg (27.0-31.0); Mean Corpuscular Volume 95.3 fL (78.0-98.0); Mean Platelet Volume 8.7 fL (7.4-10.4); Platelet Count 85 thou/uL (130-400); RBC Distribution Width 16.5 % (11.5-14.5)
[2020-08-30 06:57] LABS: ALT (SGPT) 21 U/L (8-55); AST (SGOT) 49 U/L (5-34); Albumin 2.6 g/dL (3.5-5.0); Alkaline Phosphatase 78 U/L (40-110); Anion Gap 14 mmol/L (10-20); BUN (Urea Nitrogen) 25 mg/dL (9.8-20.1); Bilirubin, Total 1.1 mg/dL (0.2-1.2); Calc. Creatinine Clearance 54 mL/min (70-130); Calcium 7.3 mg/dL (7.8-10.44); Carbon Dioxide 18 mmol/L (22-29); Chloride 110 mmol/L (98-107); Globulin 2.4 g/dL (2.4-3.5); Glucose 249 mg/dL (70-105); Potassium 3.7 mmol/L (3.5-5.1); Sodium 138 mmol/L (136-145)
[2020-08-30 07:10] LABS: Band 6 % (5-11); Eosinophils 13 % (0-10); Lymphocytes 25 % (21-51); MDiff Complete? YES; Monocytes 10 % (0-10); Neutrophil 46 % (42-75); Platelet Morphology Comment Appears Decreased
[2020-08-30 07:47] VITALS: BP 117/60; TEMP 97.8
[2020-08-30] MEDS ORDERED: Insulin Glargine 10 UNITS in Pre-Filled Syringe 1 EACH SC SCH (09:00)
[2020-08-30] MEDS: Furosemide 40 MG TAB PO SCH (09:13)
[2020-08-30] MEDS: Ferrous Sulfate 325 MG TAB PO SCH (09:13)
[2020-08-30] MEDS: Cholecalciferol 1,000 UNITS (25 MCG) TAB PO SCH (09:13)
[2020-08-30] MEDS: Rifaximin 550 MG TAB PO SCH (09:13)
[2020-08-30] MEDS: Magnesium Oxide 250 MG TAB PO SCH (09:13)
[2020-08-30] MEDS: Multivit, Therapeutic 1 TAB PO SCH (09:13)
[2020-08-30] MEDS: Folic Acid 1 MG TAB PO SCH (09:14)
[2020-08-30] MEDS: Spironolactone 100 MG TAB PO SCH (09:14)
[2020-08-30] MEDS: Midodrine HCl 5 MG TAB PO SCH (09:14)
[2020-08-30] MEDS: Fluticasone Propionate Nasal Spray 16 gm Bottle NASAL SCH (09:14)
[2020-08-30] MEDS: Cyanocobalamin (Vitamin B-12) 1,000 MCG TAB PO SCH (09:14)
[2020-08-30] MEDS: busPIRone HCl 10 MG TAB PO SCH (09:14)
[2020-08-30] MEDS: traMADol HCl 50 MG TAB PO PRN (09:25)
--- NOTE | 2020-08-31 15:23 | EKG ---
Test Reason : Blood Pressure : / mmHG Vent. Rate : 113 BPM Atrial Rate : 113 BPM P-R Int : 168 ms QRS Dur : 074 ms QT Int : 358 ms P-R-T Axes : 057 019 058 degrees QTc Int : 491 ms Sinus tachycardia Septal infarct , age undetermined Abnormal ECG Confirmed by SUPRIYA REHMAN, LOCO ([id number]), news videotape editor PARVIZ KENNEDY ([id number]) on 08/31/2020 3:22:30 PM Referred By: Confirmed By:LOCO EPPS MD
== END 2020-08-30 11:35 | disposition home or self-care (01) | DRG 377 ==
LOC: ERS 14:00 → 2SE 15:26
PROVIDERS: ADMIT Student in an Organized Health Care Education/Training Program; ATTEND Student in an Organized Health Care Education/Training Program
PROC: 30233N1 Transfusion of Nonautologous Red Blood Cells into Peripheral Vein, Percutaneous Approach (ICD-10-PCS; 2020-08-28)
PROC: 0W3P8ZZ Control Bleeding in Gastrointestinal Tract, Via Natural or Artificial Opening Endoscopic (ICD-10-PCS; principal; 2020-08-29)
PROC: 0W9G3ZX Drainage of Peritoneal Cavity, Percutaneous Approach, Diagnostic (ICD-10-PCS; 2020-08-29)
DX: K31.811 Angiodysplasia of stomach and duodenum with bleeding (principal); G93.41 Metabolic encephalopathy; D62 Acute posthemorrhagic anemia; K76.6 Portal hypertension; F41.9 Anxiety disorder, unspecified; Z20.828 Contact with and (suspected) exposure to other viral communicable diseases; F32.9 Major depressive disorder, single episode, unspecified; K21.9 Gastro-esophageal reflux disease without esophagitis; M48.00 Spinal stenosis, site unspecified; K31.89 Other diseases of stomach and duodenum; F17.210 Nicotine dependence, cigarettes, uncomplicated; I12.9 Hypertensive chronic kidney disease with stage 1 through stage 4 chronic kidney disease, or unspecified chronic kidney disease; E11.22 Type 2 diabetes mellitus with diabetic chronic kidney disease; N18.9 Chronic kidney disease, unspecified; J45.909 Unspecified asthma, uncomplicated; Z79.82 Long term (current) use of aspirin; Z88.5 Allergy status to narcotic agent; Z87.442 Personal history of urinary calculi; Z88.0 Allergy status to penicillin; Z88.2 Allergy status to sulfonamides; Z88.8 Allergy status to other drugs, medicaments and biological substances; Z90.49 Acquired absence of other specified parts of digestive tract; Z83.3 Family history of diabetes mellitus; Z82.49 Family history of ischemic heart disease and other diseases of the circulatory system; Z80.1 Family history of malignant neoplasm of trachea, bronchus and lung; Z79.899 Other long term (current) drug therapy; Z79.4 Long term (current) use of insulin
CPT/HCPCS: 36415; 36416; 36430; 49083; 71045; 76705; 80053; 82140; 82270; 82550; 83605; 83690; 84484; 85025; 85060; 85610; 85730; 86850; 86900; 86901; 87070; 87205; 87635; 89051; 93005; 96523; 99211; C9113; G0463; J0696; J1815; J2354; J2550; J3490; J7050; P9016; U0003

== ENCOUNTER 2020-09-10 09:17 | Day surgery (SDC) | payer OTHER ==
[2020-09-09 13:50] VITALS: BMI 25.8
[2020-09-10] MEDS ORDERED: Sodium Chloride 0.9% 10 ML ONE (09:25)
[2020-09-10] MEDS ORDERED: Albumin 25% 200 ML ONE (09:46)
[2020-09-10] MEDS ORDERED: Lidocaine 1% PF 5 ML VIAL ONE (09:46)
[2020-09-10] MEDS ORDERED: Sodium Bicarbonate 2.5 MEQ/5 ML VIAL ONE (09:46)
[2020-09-10 10:29] LABS: Hemoglobin 8.1 g/dL (12.0-16.0); Mean Corpuscular HGB CONC 32.3 g/dL (32.0-36.0); Mean Corpuscular Hemoglobin 30.6 pg (27.0-31.0); Mean Corpuscular Volume 94.8 fL (78.0-98.0); Mean Platelet Volume 7.7 fL (7.4-10.4); Platelet Count 98 thou/uL (130-400); RBC Distribution Width 14.4 % (11.5-14.5); Red Blood Cell (RBC) Count 2.65 mill/uL (4.20-5.40); White Blood Cell (WBC) Count 4.6 thou/uL (4.8-10.8)
[2020-09-10 10:32] LABS: INR-International Normal Ratio 1.4; Prothrombin Time 17.5 sec (12.0-14.7)
[2020-09-10 11:02] LABS: ALT (SGPT) 19 U/L (8-55); AST (SGOT) 30 U/L (5-34); Albumin 2.2 g/dL (3.5-5.0); Alkaline Phosphatase 89 U/L (40-110); Anion Gap 9 mmol/L (10-20); BUN (Urea Nitrogen) 19 mg/dL (9.8-20.1); Bilirubin, Total 1.1 mg/dL (0.2-1.2); Calc. Creatinine Clearance 58 mL/min (70-130); Calcium 7.8 mg/dL (7.8-10.44); Carbon Dioxide 21 mmol/L (22-29); Chloride 102 mmol/L (98-107); Globulin 2.5 g/dL (2.4-3.5); Glucose 278 mg/dL (70-105); Potassium 4.2 mmol/L (3.5-5.1); Protein, Total 4.7 g/dL (6.0-8.3); Sodium 128 mmol/L (136-145)
--- NOTE | 2020-09-10 11:38 | ULT ---
Exam: Ultrasound guided paracentesis HISTORY: Ascites COMPARISON: 08/29/2020 FINDINGS: Successful ultrasound-guided paracentesis. Total of 7 L of yellow color ascites was aspirat ed. TECHNIQUE: Consent obtained reformatory ultrasound-guided paracentesis. Right lower quadrant was deem ed appropriate. Skin was prepped and draped in a sterile fashion. 1% lidocaine, buffered with sodium bicarbonate was used for local anesthesia. Under ultrasound guidance, a 5 Georgian 7 cm Yueh cat heter is advanced in the peritoneal space. A total of 7 L of yellow color ascites was aspirated. No immediate or postprocedural complications IMPRESSION: Successful ultrasound-guided paracentesis.
[2020-09-10 12:04] LABS: Band 3 % (5-11); Eosinophils 13 % (0-10); Lymphocytes 14 % (21-51); MDiff Complete? YES; Monocytes 12 % (0-10); Neutrophil 57 % (42-75); Ovalocytes SLIGHT = 2-5 cells (100X) (0-1/hpf); Platelet Morphology Comment Appears Decreased; Polychromasia SLIGHT = 2-3 cells (100X) (0-2/hpf)
[2020-09-10 12:35] LABS: Follow-up Chemistry Comp? YES; Follow-up Hematology Comp? YES; Follow-up Result - Chemistry REPORT FAXED; Follow-up Result - Hematology REPORT FAXED
[2020-09-10 13:51] VITALS: BP 114/65; TEMP 98
[2020-09-10] MEDS ORDERED: FLU VACC QS2020-21(6MOS UP)/PF 60 MCG/0.5 ML SYRINGE IM ONE (14:15)
== END 2020-09-10 11:15 | disposition home or self-care (01) ==
LOC: ULT 09:17
PROVIDERS: ATTEND Internal Medicine Gastroenterology
PROC: BW40ZZZ Ultrasonography of Abdomen (ICD-10-PCS; principal; 2020-09-10)
PROC: 0W9G3ZZ Drainage of Peritoneal Cavity, Percutaneous Approach (ICD-10-PCS; principal; 2020-09-10)
DX: K74.60 Unspecified cirrhosis of liver (principal); R18.8 Other ascites; K72.90 Hepatic failure, unspecified without coma; K31.819 Angiodysplasia of stomach and duodenum without bleeding; I12.9 Hypertensive chronic kidney disease with stage 1 through stage 4 chronic kidney disease, or unspecified chronic kidney disease; E11.22 Type 2 diabetes mellitus with diabetic chronic kidney disease; N18.9 Chronic kidney disease, unspecified; D63.1 Anemia in chronic kidney disease; F41.9 Anxiety disorder, unspecified; F32.9 Major depressive disorder, single episode, unspecified; J44.9 Chronic obstructive pulmonary disease, unspecified; F17.200 Nicotine dependence, unspecified, uncomplicated; G89.29 Other chronic pain; M54.9 Dorsalgia, unspecified; Z79.4 Long term (current) use of insulin; Z79.899 Other long term (current) drug therapy; Z88.0 Allergy status to penicillin; Z88.2 Allergy status to sulfonamides; Z88.6 Allergy status to analgesic agent; Z88.5 Allergy status to narcotic agent; Z88.8 Allergy status to other drugs, medicaments and biological substances; Z91.018 Allergy to other foods; D64.9 Anemia, unspecified
CPT/HCPCS: 49083; 80053; 85025; 85610; 90471; 90662; 96523; 99211; G0008; G0463; P9047

== ENCOUNTER 2020-09-18 08:23 | Day surgery (SDC) | payer OTHER ==
[2020-09-17 15:49] VITALS: BMI 28.1
[2020-09-18] MEDS ORDERED: Lidocaine 1% PF 5 ML VIAL ONE (08:34)
[2020-09-18] MEDS ORDERED: Albumin 25% 200 ML ONE (08:34)
[2020-09-18] MEDS ORDERED: Sodium Bicarbonate 2.5 MEQ/5 ML VIAL ONE (08:34)
[2020-09-18] MEDS ORDERED: Sodium Chloride 0.9% 20 ML ONE (08:39)
[2020-09-18 09:14] LABS: Hemoglobin 8.1 g/dL (12.0-16.0); Mean Corpuscular HGB CONC 31.9 g/dL (32.0-36.0); Mean Corpuscular Hemoglobin 30.5 pg (27.0-31.0); Mean Corpuscular Volume 95.6 fL (78.0-98.0); Mean Platelet Volume 8.7 fL (7.4-10.4); Platelet Count 88 thou/uL (130-400); RBC Distribution Width 13.7 % (11.5-14.5); Red Blood Cell (RBC) Count 2.64 mill/uL (4.20-5.40); White Blood Cell (WBC) Count 4.1 thou/uL (4.8-10.8)
[2020-09-18 09:17] LABS: INR-International Normal Ratio 1.3; Prothrombin Time 16.8 sec (12.0-14.7)
[2020-09-18 09:32] LABS: ALT (SGPT) 16 U/L (8-55); AST (SGOT) 31 U/L (5-34); Albumin 2.4 g/dL (3.5-5.0); Alkaline Phosphatase 96 U/L (40-110); Anion Gap 11 mmol/L (10-20); BUN (Urea Nitrogen) 19 mg/dL (9.8-20.1); Bilirubin, Total 0.9 mg/dL (0.2-1.2); Calc. Creatinine Clearance 55 mL/min (70-130); Calcium 7.7 mg/dL (7.8-10.44); Carbon Dioxide 21 mmol/L (22-29); Chloride 102 mmol/L (98-107); Globulin 2.5 g/dL (2.4-3.5); Glucose 288 mg/dL (70-105); Potassium 3.9 mmol/L (3.5-5.1); Protein, Total 4.9 g/dL (6.0-8.3); Sodium 130 mmol/L (136-145)
--- NOTE | 2020-09-18 09:46 | ULT ---
Paracentesis sonographic guided HISTORY: Recurrent ascites. FINDINGS: After explaining the procedure and answering all questions, sonographic survey showed a lar ge amount of free fluid throughout the abdomen. Sterile technique, buffered local anesthesia, sonographic guidance, and a left lateral approach were used to carefully advance a 19-gauge Yueh needle and catheter into the free fluid. Catheter was left to drain a total volume of 7.0 L slightly cloudy light yellow liquid. Patient is li mited to 7 L. Catheter was removed with large amount of fluid remaining. Patient tolerated the procedure well and was dismissed in good condition. IMPRESSION : Technically successful sonographic guided paracentesis 7.0 L.
[2020-09-18 10:00] VITALS: BP 117/64; TEMP 98.1
[2020-09-18 11:20] LABS: Band 7 % (5-11); Eosinophils 11 % (0-10); Lymphocytes 12 % (21-51); MDiff Complete? YES; Monocytes 18 % (0-10); Neutrophil 50 % (42-75); Platelet Morphology Comment Appears Decreased; Polychromasia SLIGHT = 2-3 cells (100X) (0-2/hpf)
[2020-09-18 11:25] LABS: RBC Count-Automated (BF) 0 /cu.mm; WBC/Nucleated-Auto (BF) 10 uL
[2020-09-18 11:27] LABS: Body Fluid Source Ascites Body Fluid; Clarity Clear (Clear); Tube # EDTA
[2020-09-18 11:28] LABS: BF Color Colorless
[2020-09-18 11:33] LABS: BF Segmented Neutrophils 1 %; Cell Count Non Hematic 71 %; Lymphocytes 28 %
== END 2020-09-18 09:45 | disposition home or self-care (01) ==
LOC: ULT 08:23
PROVIDERS: ATTEND Internal Medicine Gastroenterology
PROC: 0W9G3ZX Drainage of Peritoneal Cavity, Percutaneous Approach, Diagnostic (ICD-10-PCS; principal; 2020-09-18)
DX: K74.60 Unspecified cirrhosis of liver (principal); R18.8 Other ascites; K72.90 Hepatic failure, unspecified without coma; J44.9 Chronic obstructive pulmonary disease, unspecified; I12.9 Hypertensive chronic kidney disease with stage 1 through stage 4 chronic kidney disease, or unspecified chronic kidney disease; E11.22 Type 2 diabetes mellitus with diabetic chronic kidney disease; N18.9 Chronic kidney disease, unspecified; D63.1 Anemia in chronic kidney disease; F41.9 Anxiety disorder, unspecified; F32.9 Major depressive disorder, single episode, unspecified; K21.9 Gastro-esophageal reflux disease without esophagitis; M19.90 Unspecified osteoarthritis, unspecified site; Z87.891 Personal history of nicotine dependence; Z79.4 Long term (current) use of insulin; Z79.899 Other long term (current) drug therapy; Z88.0 Allergy status to penicillin; Z88.2 Allergy status to sulfonamides; Z88.5 Allergy status to narcotic agent; Z88.6 Allergy status to analgesic agent; Z91.048 Other nonmedicinal substance allergy status; Z88.8 Allergy status to other drugs, medicaments and biological substances; Z91.018 Allergy to other foods
CPT/HCPCS: 49083; 82042; 84157; 85025; 85060; 85610; 87070; 87205; 88112; 89051; J1642; P9047

== ENCOUNTER 2020-09-21 11:32 | Inpatient (IN) | payer OTHER ==
[2020-09-21 12:00] LABS: Hemoglobin 8.3 g/dL (12.0-16.0); Mean Corpuscular HGB CONC 33.1 g/dL (32.0-36.0); Mean Corpuscular Hemoglobin 31.1 pg (27.0-31.0); Mean Corpuscular Volume 93.8 fL (78.0-98.0); Mean Platelet Volume 9.5 fL (7.4-10.4); Platelet Count 76 thou/uL (130-400); RBC Distribution Width 13.2 % (11.5-14.5); Red Blood Cell (RBC) Count 2.66 mill/uL (4.20-5.40)
[2020-09-21] MEDS ORDERED: Cefepime 2 GM VIAL ONE (12:00)
[2020-09-21 12:02] LABS: #Basophils 0.1 thou/uL (0.0-0.2); #Eosinphils 0.1 thou/uL (0.0-0.7); #Lymphocytes 0.2 thou/uL (1.20-3.40); #Monocytes 0.7 thou/uL (0.11-0.59); #Neutrophils 6.8 thou/uL (1.40-6.50); %Basophils 1.4 % (0.0-1.0); %Eosinophils 0.8 % (0.0-10.0); %Monocytes 9.1 % (0.0-10.0); %Neutrophils 85.7 % (42.0-75.0)
[2020-09-21 12:05] LABS: INR-International Normal Ratio 1.5; PTT 39.7 sec (22.9-36.1); Prothrombin Time 18.2 sec (12.0-14.7)
[2020-09-21] MEDS ORDERED: Lidocaine 1% PF 5 ML VIAL ONE (12:06)
[2020-09-21 12:18] LABS: ALT (SGPT) 16 U/L (8-55); AST (SGOT) 25 U/L (5-34); Albumin 2.8 g/dL (3.5-5.0); Alkaline Phosphatase 88 U/L (40-110); Anion Gap 14 mmol/L (10-20); BUN (Urea Nitrogen) 25 mg/dL (9.8-20.1); Bilirubin, Total 1.7 mg/dL (0.2-1.2); Calc. Creatinine Clearance 0 mL/min (70-130); Calcium 7.6 mg/dL (7.8-10.44); Carbon Dioxide 19 mmol/L (22-29); Chloride 102 mmol/L (98-107); Globulin 2.3 g/dL (2.4-3.5); Glucose 188 mg/dL (70-105); Potassium 4.4 mmol/L (3.5-5.1); Protein, Total 5.1 g/dL (6.0-8.3); Sodium 131 mmol/L (136-145)
[2020-09-21 13:20] LABS: SARS-CoV-2 NAA Rapid Test Not Detected (NotDetected)
[2020-09-21 13:58] LABS: Bacteria/HPF None Seen HPF (None Seen); Bilirubin Negative (Negative); Blood, Urine Negative (Negative); Clarity Clear (Clear); Glucose, Urine (Dipstick) Normal (Negative); Ketone, Urine Negative (Negative); Leukocyte 25 Leu/uL (Negative); Nitrite Negative (Negative); Protein, Urine (Dipstick) Negative (Neg-Trace); RBC/HPF 0-3 HPF (0-3); Specific Gravity, Urine 1.015 (1.002-1.036); Urobilinogen Normal mg/dL (Less than 2); WBC/HPF 0-3 HPF (0-3); pH, Urine 5.5 (5.0-9.0)
[2020-09-21 14:54] LABS: RBC Count-Automated (BF) 11791 /cu.mm; WBC/Nucleated-Auto (BF) 31 uL
[2020-09-21 15:00] LABS: Fluid, Glucose 260 mg/dL (Not Available); Fluid, Protein Less than 1.0 g/dL (Not Available)
[2020-09-21 15:02] LABS: BF Color Pink; Body Fluid Source Peritoneal Fluid; Clarity Hazy (Clear); Tube # EDTA
[2020-09-21 15:25] LABS: BF Segmented Neutrophils 75 %; Cell Count Non Hematic 11 %; Lymphocytes 14 %
[2020-09-21] MEDS ORDERED: cefTRIAXone\\ROCEPHIN 2 GM in Sodium Chloride 0.9% 100 ML IVPB SCH (18:30)
[2020-09-21] MEDS ORDERED: Lactated Ringer's 1,000 ML IV SCH (18:45)
[2020-09-21] MEDS ORDERED: Ondansetron PF 4 MG/2 ML Vial IVP PRN (19:00)
[2020-09-21] MEDS ORDERED: Ondansetron ODT 4 MG TAB SL PRN (19:00)
[2020-09-21] MEDS ORDERED: hydrOXYzine 25 MG TAB PO PRN (19:01)
[2020-09-21] MEDS ORDERED: Albuterol 200 PUFF (6.7GM INHALER) INH PRN (19:11)
[2020-09-21] MEDS ORDERED: Dextrose 50% Abboject 50 ML SYRINGE SLOW IVP PRN (19:26)
[2020-09-21] MEDS ORDERED: HumaLOG 300 UNITS/3 ML VIAL SC PRN (19:26)
[2020-09-21] MEDS ORDERED: Dextrose 5% in Water 1,000 ML IV PRN (19:26)
[2020-09-21] MEDS: Cholecalciferol 1,000 UNITS (25 MCG) TAB PO SCH (20:44)
[2020-09-21] MEDS: Spironolactone 100 MG TAB PO SCH (20:44)
[2020-09-21] MEDS: Rifaximin 550 MG TAB PO SCH (20:44)
[2020-09-21] MEDS: Melatonin 3 MG TAB PO PRN (20:44)
[2020-09-21] MEDS: traMADol HCl 50 MG TAB PO PRN (20:45)
[2020-09-21] MEDS: Loratadine 10 MG TAB PO SCH (20:45)
[2020-09-21] MEDS: busPIRone HCl 10 MG TAB PO SCH (20:45)
[2020-09-22 05:14] LABS: ALT (SGPT) 13 U/L (8-55); AST (SGOT) 22 U/L (5-34); Albumin 2.3 g/dL (3.5-5.0); Alkaline Phosphatase 68 U/L (40-110); Anion Gap 8 mmol/L (10-20); BUN (Urea Nitrogen) 23 mg/dL (9.8-20.1); Bilirubin, Total 0.8 mg/dL (0.2-1.2); Calc. Creatinine Clearance 66 mL/min (70-130); Calcium 7.2 mg/dL (7.8-10.44); Carbon Dioxide 19 mmol/L (22-29); Chloride 105 mmol/L (98-107); Globulin 2.1 g/dL (2.4-3.5); Glucose 166 mg/dL (70-105); Potassium 3.8 mmol/L (3.5-5.1); Protein, Total 4.4 g/dL (6.0-8.3); Sodium 128 mmol/L (136-145)
[2020-09-22 06:02] LABS: Band 2 % (5-11); Eosinophils 3 % (0-10); Hemoglobin 7.2 g/dL (12.0-16.0); Lymphocytes 15 % (21-51); MDiff Complete? YES; Mean Corpuscular HGB CONC 32.6 g/dL (32.0-36.0); Mean Corpuscular Hemoglobin 30.9 pg (27.0-31.0); Mean Corpuscular Volume 94.7 fL (78.0-98.0); Mean Platelet Volume 9.8 fL (7.4-10.4); Monocytes 15 % (0-10); Neutrophil 62 % (42-75); Platelet Count 57 thou/uL (130-400); Platelet Morphology Comment Appears Decreased; RBC Morphology Normal; Reactive Lymphocytes 3 % (0-10); Red Blood Cell (RBC) Count 2.31 mill/uL (4.20-5.40); White Blood Cell (WBC) Count 2.9 thou/uL (4.8-10.8)
[2020-09-22] MEDS ORDERED: Non-Formulary Item 1 EACH (Insulin Glargine,Hum.Rec.Anlog [Lantus Solostar] 100 UNIT/ML P SC SCH (09:00)
[2020-09-22] MEDS ORDERED: Enoxaparin Sodium 40 MG/0.4 ML SYRINGE SC SCH (09:00)
[2020-09-22] MEDS: Magnesium Oxide 250 MG TAB PO SCH (09:57)
[2020-09-22] MEDS: busPIRone HCl 10 MG TAB PO SCH ×2 (09:57→20:37)
[2020-09-22] MEDS: Multivit, Therapeutic 1 TAB PO SCH (09:57)
[2020-09-22] MEDS: Furosemide 40 MG TAB PO SCH ×2 (09:57→13:11)
[2020-09-22] MEDS: Ferrous Sulfate 325 MG TAB PO SCH ×3 (09:57→17:13)
[2020-09-22] MEDS: Spironolactone 100 MG TAB PO SCH ×2 (09:58→20:36)
[2020-09-22] MEDS: Rifaximin 550 MG TAB PO SCH ×2 (09:58→20:37)
[2020-09-22] MEDS: Cholecalciferol 1,000 UNITS (25 MCG) TAB PO SCH ×2 (09:58→20:37)
[2020-09-22] MEDS: Cyanocobalamin (Vitamin B-12) 1,000 MCG TAB PO SCH (09:58)
[2020-09-22] MEDS: Folic Acid 1 MG TAB PO SCH (09:58)
[2020-09-22] MEDS: Midodrine HCl 5 MG TAB PO SCH ×3 (09:59→17:12)
[2020-09-22] MEDS: Fluticasone Propionate Nasal Spray 16 gm Bottle NASAL SCH (09:59)
[2020-09-22] MEDS: Insulin Glargine 7 UNITS in Pre-Filled Syringe 1 EACH SC SCH (09:59)
[2020-09-22 12:59] LABS: Hemoglobin 7.7 g/dL (12.0-16.0)
[2020-09-22] MEDS: Cefepime 2 GM in Sodium Chloride 0.9% 100 ML IVPB SCH ×2 (13:11→22:09)
[2020-09-22] MEDS: traMADol HCl 50 MG TAB PO PRN ×2 (13:29→20:36)
[2020-09-22] MEDS: HumaLOG 300 UNITS/3 ML VIAL SC PRN (17:12)
[2020-09-22] MEDS: Melatonin 3 MG TAB PO PRN (20:37)
[2020-09-22] MEDS: Loratadine 10 MG TAB PO SCH (20:38)
[2020-09-23 05:45] LABS: ALT (SGPT) 14 U/L (8-55); AST (SGOT) 27 U/L (5-34); Albumin 2.4 g/dL (3.5-5.0); Alkaline Phosphatase 77 U/L (40-110); Anion Gap 8 mmol/L (10-20); BUN (Urea Nitrogen) 26 mg/dL (9.8-20.1); Bilirubin, Total 0.7 mg/dL (0.2-1.2); Calc. Creatinine Clearance 69 mL/min (70-130); Calcium 7.6 mg/dL (7.8-10.44); Carbon Dioxide 21 mmol/L (22-29); Chloride 107 mmol/L (98-107); Globulin 2.3 g/dL (2.4-3.5); Glucose 165 mg/dL (70-105); Potassium 3.8 mmol/L (3.5-5.1); Protein, Total 4.7 g/dL (6.0-8.3); Sodium 132 mmol/L (136-145)
[2020-09-23 05:49] LABS: Band 2 % (5-11); Eosinophils 14 % (0-10); Hemoglobin 7.4 g/dL (12.0-16.0); Lymphocytes 8 % (21-51); MDiff Complete? YES; Mean Corpuscular HGB CONC 31.9 g/dL (32.0-36.0); Mean Corpuscular Hemoglobin 30.1 pg (27.0-31.0); Mean Corpuscular Volume 94.4 fL (78.0-98.0); Mean Platelet Volume 9.5 fL (7.4-10.4); Monocytes 32 % (0-10); Neutrophil 42 % (42-75); Platelet Count 71 thou/uL (130-400); Platelet Morphology Comment Appears Decreased; Red Blood Cell (RBC) Count 2.46 mill/uL (4.20-5.40); White Blood Cell (WBC) Count 3.1 thou/uL (4.8-10.8)
[2020-09-23] MEDS: Cefepime 2 GM in Sodium Chloride 0.9% 100 ML IVPB SCH ×3 (06:14→20:43)
[2020-09-23] MEDS: Folic Acid 1 MG TAB PO SCH (09:47)
[2020-09-23] MEDS: Cyanocobalamin (Vitamin B-12) 1,000 MCG TAB PO SCH (09:47)
[2020-09-23] MEDS: Spironolactone 100 MG TAB PO SCH ×2 (09:47→20:38)
[2020-09-23] MEDS: Magnesium Oxide 250 MG TAB PO SCH (09:47)
[2020-09-23] MEDS: Multivit, Therapeutic 1 TAB PO SCH (09:47)
[2020-09-23] MEDS: Cholecalciferol 1,000 UNITS (25 MCG) TAB PO SCH ×2 (09:47→20:38)
[2020-09-23] MEDS: Rifaximin 550 MG TAB PO SCH ×2 (09:48→20:38)
[2020-09-23] MEDS: Furosemide 40 MG TAB PO SCH ×2 (09:48→14:16)
[2020-09-23] MEDS: Ferrous Sulfate 325 MG TAB PO SCH ×3 (09:48→18:06)
[2020-09-23] MEDS: Insulin Glargine 7 UNITS in Pre-Filled Syringe 1 EACH SC SCH (09:49)
[2020-09-23] MEDS: Midodrine HCl 5 MG TAB PO SCH ×3 (09:49→18:07)
[2020-09-23] MEDS: busPIRone HCl 10 MG TAB PO SCH ×2 (09:49→20:38)
[2020-09-23] MEDS: HumaLOG 300 UNITS/3 ML VIAL SC PRN (11:34)
[2020-09-23] MEDS: Fluticasone Propionate Nasal Spray 16 gm Bottle NASAL SCH (11:42)
[2020-09-23] MEDS: traMADol HCl 50 MG TAB PO PRN ×2 (11:42→20:38)
[2020-09-23] MEDS: Melatonin 3 MG TAB PO PRN (20:38)
[2020-09-23] MEDS: Loratadine 10 MG TAB PO SCH (20:39)
[2020-09-24 05:10] LABS: #Eosinphils 0.5 thou/uL (0.0-0.7); #Lymphocytes 0.8 thou/uL (1.20-3.40); #Monocytes 0.6 thou/uL (0.11-0.59); %Eosinophils 13.8 % (0.0-10.0); %Lymphocytes 19.4 % (21.0-51.0); %Monocytes 14.5 % (0.0-10.0); %Neutrophils 51.3 % (42.0-75.0); Hemoglobin 7.7 g/dL (12.0-16.0); Mean Corpuscular HGB CONC 32.4 g/dL (32.0-36.0); Mean Corpuscular Hemoglobin 30.5 pg (27.0-31.0); Mean Corpuscular Volume 94.1 fL (78.0-98.0); Mean Platelet Volume 9.3 fL (7.4-10.4); Platelet Count 87 thou/uL (130-400); RBC Distribution Width 12.9 % (11.5-14.5); Red Blood Cell (RBC) Count 2.52 mill/uL (4.20-5.40)
[2020-09-24 05:21] LABS: ALT (SGPT) 13 U/L (8-55); AST (SGOT) 27 U/L (5-34); Albumin 2.5 g/dL (3.5-5.0); Alkaline Phosphatase 69 U/L (40-110); Anion Gap 11 mmol/L (10-20); BUN (Urea Nitrogen) 24 mg/dL (9.8-20.1); Bilirubin, Total 0.7 mg/dL (0.2-1.2); Calc. Creatinine Clearance 75 mL/min (70-130); Calcium 7.6 mg/dL (7.8-10.44); Carbon Dioxide 20 mmol/L (22-29); Chloride 106 mmol/L (98-107); Globulin 2.3 g/dL (2.4-3.5); Glucose 118 mg/dL (70-105); Potassium 3.7 mmol/L (3.5-5.1); Protein, Total 4.8 g/dL (6.0-8.3); Sodium 133 mmol/L (136-145)
[2020-09-24] MEDS: Cefepime 2 GM in Sodium Chloride 0.9% 100 ML IVPB SCH ×3 (06:39→21:36)
[2020-09-24 08:14] LABS: Hemoglobin A1c 5.8 % (4.0-6.0)
[2020-09-24] MEDS: Cyanocobalamin (Vitamin B-12) 1,000 MCG TAB PO SCH (09:46)
[2020-09-24] MEDS: Cholecalciferol 1,000 UNITS (25 MCG) TAB PO SCH ×2 (09:46→21:35)
[2020-09-24] MEDS: Midodrine HCl 5 MG TAB PO SCH ×3 (09:46→16:36)
[2020-09-24] MEDS: busPIRone HCl 10 MG TAB PO SCH ×2 (09:46→21:34)
[2020-09-24] MEDS: Ferrous Sulfate 325 MG TAB PO SCH ×3 (09:46→16:36)
[2020-09-24] MEDS: Spironolactone 100 MG TAB PO SCH ×2 (09:46→21:35)
[2020-09-24] MEDS: Rifaximin 550 MG TAB PO SCH ×2 (09:46→21:34)
[2020-09-24] MEDS: Multivit, Therapeutic 1 TAB PO SCH (09:46)
[2020-09-24] MEDS: Magnesium Oxide 250 MG TAB PO SCH (09:46)
[2020-09-24] MEDS: Fluticasone Propionate Nasal Spray 16 gm Bottle NASAL SCH (09:47)
[2020-09-24] MEDS: Insulin Glargine 7 UNITS in Pre-Filled Syringe 1 EACH SC SCH (09:47)
[2020-09-24] MEDS: Folic Acid 1 MG TAB PO SCH (09:47)
[2020-09-24] MEDS: Furosemide 40 MG TAB PO SCH ×2 (09:48→16:35)
[2020-09-24] MEDS ORDERED: Magnesium 2 GM/50 ML 2 GM in Premix Bag 1 BAG IVPB SCH (11:00)
[2020-09-24] MEDS ORDERED: Lidocaine 1% PF 5 ML VIAL ONE (11:13)
[2020-09-24] MEDS ORDERED: Sodium Bicarbonate 2.5 MEQ/5 ML VIAL ONE (11:13)
[2020-09-24] MEDS ORDERED: Albumin 25% 25 GM/100 ML BOT IVPB SCH (11:21)
[2020-09-24 14:49] LABS: INR-International Normal Ratio 1.1; Prothrombin Time 14.2 sec (12.0-14.7)
[2020-09-24] MEDS: HumaLOG 300 UNITS/3 ML VIAL SC PRN (17:31)
[2020-09-24] MEDS: Cyclobenzaprine 10 MG TAB PO PRN (21:34)
[2020-09-24] MEDS: Loratadine 10 MG TAB PO SCH (21:35)
[2020-09-24] MEDS: traMADol HCl 50 MG TAB PO PRN (21:35)
[2020-09-25] MEDS: Cefepime 2 GM in Sodium Chloride 0.9% 100 ML IVPB SCH ×3 (06:15→21:25)
[2020-09-25 06:47] LABS: Mean Corpuscular HGB CONC 33.3 g/dL (32.0-36.0); Mean Corpuscular Hemoglobin 31.7 pg (27.0-31.0); Mean Corpuscular Volume 95.1 fL (78.0-98.0); Mean Platelet Volume 9.2 fL (7.4-10.4); Platelet Count 69 thou/uL (130-400); Red Blood Cell (RBC) Count 1.91 mill/uL (4.20-5.40)
[2020-09-25 07:03] LABS: ALT (SGPT) 10 U/L (8-55); AST (SGOT) 20 U/L (5-34); Albumin 2.2 g/dL (3.5-5.0); Alkaline Phosphatase 56 U/L (40-110); Anion Gap 9 mmol/L (10-20); BUN (Urea Nitrogen) 28 mg/dL (9.8-20.1); Bilirubin, Total 0.6 mg/dL (0.2-1.2); Calc. Creatinine Clearance 87 mL/min (70-130); Calcium 7.5 mg/dL (7.8-10.44); Carbon Dioxide 21 mmol/L (22-29); Chloride 110 mmol/L (98-107); Globulin 1.9 g/dL (2.4-3.5); Glucose 148 mg/dL (70-105); Potassium 3.8 mmol/L (3.5-5.1); Protein, Total 4.1 g/dL (6.0-8.3); Sodium 136 mmol/L (136-145)
[2020-09-25] MEDS: Cyanocobalamin (Vitamin B-12) 1,000 MCG TAB PO SCH (09:09)
[2020-09-25] MEDS: Insulin Glargine 7 UNITS in Pre-Filled Syringe 1 EACH SC SCH (09:09)
[2020-09-25] MEDS: Midodrine HCl 5 MG TAB PO SCH ×3 (09:09→17:47)
[2020-09-25] MEDS: Ferrous Sulfate 325 MG TAB PO SCH ×3 (09:09→17:47)
[2020-09-25] MEDS: Folic Acid 1 MG TAB PO SCH (09:09)
[2020-09-25] MEDS: Furosemide 40 MG TAB PO SCH ×2 (09:09→17:47)
[2020-09-25] MEDS: Cholecalciferol 1,000 UNITS (25 MCG) TAB PO SCH ×2 (09:09→21:24)
[2020-09-25] MEDS: Fluticasone Propionate Nasal Spray 16 gm Bottle NASAL SCH (09:09)
[2020-09-25] MEDS: busPIRone HCl 10 MG TAB PO SCH ×2 (09:09→21:24)
[2020-09-25] MEDS: Magnesium Oxide 250 MG TAB PO SCH (09:10)
[2020-09-25] MEDS: Rifaximin 550 MG TAB PO SCH ×2 (09:10→21:24)
[2020-09-25] MEDS: Spironolactone 100 MG TAB PO SCH ×2 (09:10→21:24)
[2020-09-25] MEDS: Multivit, Therapeutic 1 TAB PO SCH (09:10)
[2020-09-25 09:38] LABS: Band 3 % (5-11); Eosinophils 9 % (0-10); Hypochromia SLIGHT = 6-15 cells (100X) (0-5/hpf); Lymphocytes 17 % (21-51); MDiff Complete? YES; Monocytes 13 % (0-10); Neutrophil 56 % (42-75); Platelet Morphology Comment Appears Decreased; Polychromasia SLIGHT = 2-3 cells (100X) (0-2/hpf); Reactive Lymphocytes 1 % (0-10); Tear Drops SLIGHT = 2-5 cells (100X) (0-1/hpf)
[2020-09-25 09:50] LABS: Hemoglobin 6.8 g/dL (12.0-16.0)
[2020-09-25] MEDS: HumaLOG 300 UNITS/3 ML VIAL SC PRN (17:48)
[2020-09-25 20:33] LABS: Hemoglobin 7.4 g/dL (12.0-16.0); Platelet Count 85 thou/uL (130-400)
[2020-09-25] MEDS: Cyclobenzaprine 10 MG TAB PO PRN (21:23)
[2020-09-25] MEDS: Melatonin 3 MG TAB PO PRN (21:23)
[2020-09-25] MEDS: Loratadine 10 MG TAB PO SCH (21:24)
[2020-09-26 05:01] LABS: #Eosinphils 0.4 thou/uL (0.0-0.7); #Lymphocytes 0.8 thou/uL (1.20-3.40); #Monocytes 0.6 thou/uL (0.11-0.59); #Neutrophils 2.7 thou/uL (1.40-6.50); %Basophils 0.7 % (0.0-1.0); %Eosinophils 9.7 % (0.0-10.0); %Lymphocytes 17.9 % (21.0-51.0); %Monocytes 13.5 % (0.0-10.0); %Neutrophils 58.3 % (42.0-75.0); Hemoglobin 6.5 g/dL (12.0-16.0); Mean Corpuscular HGB CONC 32.5 g/dL (32.0-36.0); Mean Corpuscular Volume 92.4 fL (78.0-98.0); Platelet Count 75 thou/uL (130-400); RBC Distribution Width 14.1 % (11.5-14.5); Red Blood Cell (RBC) Count 2.15 mill/uL (4.20-5.40); White Blood Cell (WBC) Count 4.6 thou/uL (4.8-10.8)
[2020-09-26 05:15] LABS: ALT (SGPT) 10 U/L (8-55); AST (SGOT) 19 U/L (5-34); Albumin 2.2 g/dL (3.5-5.0); Alkaline Phosphatase 56 U/L (40-110); Anion Gap 10 mmol/L (10-20); BUN (Urea Nitrogen) 32 mg/dL (9.8-20.1); Calc. Creatinine Clearance 195 mL/min (70-130); Calcium 7.5 mg/dL (7.8-10.44); Carbon Dioxide 20 mmol/L (22-29); Chloride 108 mmol/L (98-107); Glucose 160 mg/dL (70-105); Potassium 3.7 mmol/L (3.5-5.1); Protein, Total 4.2 g/dL (6.0-8.3); Sodium 134 mmol/L (136-145)
[2020-09-26] MEDS: Cefepime 2 GM in Sodium Chloride 0.9% 100 ML IVPB SCH (05:58)
[2020-09-26 06:30] LABS: Magnesium 1.7 mg/dL (1.6-2.6); Phosphorus 2.4 mg/dL (2.3-4.7)
[2020-09-26] MEDS ORDERED: Lidocaine 1% PF 5 ML VIAL ONE (09:35)
[2020-09-26] MEDS ORDERED: PROPOFOL 200 MG/20 ML VIAL ONE (09:35)
[2020-09-26] MEDS ORDERED: Ondansetron PF 4 MG/2 ML Vial ONE (10:46)
[2020-09-26] MEDS: Magnesium Oxide 250 MG TAB PO SCH (11:37)
[2020-09-26] MEDS: Multivit, Therapeutic 1 TAB PO SCH (11:38)
[2020-09-26] MEDS: Midodrine HCl 5 MG TAB PO SCH ×3 (11:38→16:07)
[2020-09-26] MEDS: Cyanocobalamin (Vitamin B-12) 1,000 MCG TAB PO SCH (11:38)
[2020-09-26] MEDS: Rifaximin 550 MG TAB PO SCH ×2 (11:39→20:56)
[2020-09-26] MEDS: Cholecalciferol 1,000 UNITS (25 MCG) TAB PO SCH ×2 (11:39→20:55)
[2020-09-26] MEDS: busPIRone HCl 10 MG TAB PO SCH ×2 (11:40→20:55)
[2020-09-26] MEDS: Spironolactone 100 MG TAB PO SCH ×2 (11:40→20:56)
[2020-09-26] MEDS: Furosemide 40 MG TAB PO SCH ×2 (11:40→14:50)
[2020-09-26] MEDS: Ferrous Sulfate 325 MG TAB PO SCH ×3 (11:40→16:07)
[2020-09-26] MEDS: Insulin Glargine 7 UNITS in Pre-Filled Syringe 1 EACH SC SCH (11:41)
[2020-09-26] MEDS: Folic Acid 1 MG TAB PO SCH (11:41)
[2020-09-26] MEDS: Fluticasone Propionate Nasal Spray 16 gm Bottle NASAL SCH (11:41)
[2020-09-26] MEDS: traMADol HCl 50 MG TAB PO PRN ×2 (11:43→20:56)
[2020-09-26] MEDS ORDERED: SODIUM CHLORIDE 0.9% FS PRN (12:24)
[2020-09-26] MEDS ORDERED: GENTAMICIN FS PRN (12:24)
[2020-09-26] MEDS ORDERED: HEPARIN FS PRN (12:24)
[2020-09-26 13:14] VITALS: BMI 70.9
[2020-09-26 17:59] LABS: Glucose 239 mg/dL (70-105)
[2020-09-26] MEDS: HumaLOG 300 UNITS/3 ML VIAL SC PRN (18:10)
[2020-09-26 18:49] LABS: Hemoglobin 7.6 g/dL (12.0-16.0); Platelet Count 80 thou/uL (130-400)
[2020-09-26] MEDS: Ciprofloxacin 500 MG TAB PO SCH (20:54)
[2020-09-26] MEDS: Cyclobenzaprine 10 MG TAB PO PRN (20:56)
[2020-09-26] MEDS: Loratadine 10 MG TAB PO SCH (20:56)
[2020-09-26 21:34] LABS: Glucose 147 mg/dL (70-105)
[2020-09-26] MEDS: Melatonin 3 MG TAB PO PRN (23:11)
[2020-09-27] MEDS: Ciprofloxacin 500 MG TAB PO SCH (05:35)
[2020-09-27] MEDS: GENTAMICIN FS PRN ×2 (05:48→16:36)
[2020-09-27] MEDS: SODIUM CHLORIDE 0.9% FS PRN ×2 (05:48→16:36)
[2020-09-27] MEDS ORDERED: Insulin Glargine 10 UNITS in Pre-Filled Syringe 1 EACH SC SCH (06:03)
[2020-09-27 06:21] LABS: #Basophils 0.1 thou/uL (0.0-0.2); #Eosinphils 0.5 thou/uL (0.0-0.7); #Lymphocytes 0.7 thou/uL (1.20-3.40); #Monocytes 0.9 thou/uL (0.11-0.59); #Neutrophils 6.5 thou/uL (1.40-6.50); %Basophils 0.6 % (0.0-1.0); %Lymphocytes 7.6 % (21.0-51.0); %Monocytes 10.6 % (0.0-10.0); %Neutrophils 75.3 % (42.0-75.0); Hemoglobin 7.2 g/dL (12.0-16.0); Mean Corpuscular HGB CONC 32.7 g/dL (32.0-36.0); Mean Corpuscular Hemoglobin 30.3 pg (27.0-31.0); Mean Corpuscular Volume 92.7 fL (78.0-98.0); Mean Platelet Volume 9.5 fL (7.4-10.4); Platelet Count 79 thou/uL (130-400); RBC Distribution Width 14.4 % (11.5-14.5); Red Blood Cell (RBC) Count 2.37 mill/uL (4.20-5.40); White Blood Cell (WBC) Count 8.6 thou/uL (4.8-10.8)
[2020-09-27 06:39] LABS: ALT (SGPT) 11 U/L (8-55); AST (SGOT) 21 U/L (5-34); Albumin 2.2 g/dL (3.5-5.0); Alkaline Phosphatase 55 U/L (40-110); Anion Gap 7 mmol/L (10-20); BUN (Urea Nitrogen) 28 mg/dL (9.8-20.1); Bilirubin, Total 1.3 mg/dL (0.2-1.2); Calc. Creatinine Clearance 87 mL/min (70-130); Calcium 7.8 mg/dL (7.8-10.44); Carbon Dioxide 21 mmol/L (22-29); Chloride 108 mmol/L (98-107); Globulin 2.1 g/dL (2.4-3.5); Glucose 121 mg/dL (70-105); Potassium 3.7 mmol/L (3.5-5.1); Protein, Total 4.3 g/dL (6.0-8.3); Sodium 132 mmol/L (136-145)
[2020-09-27] MEDS: Ferrous Sulfate 325 MG TAB PO SCH ×3 (08:33→16:35)
[2020-09-27] MEDS: Multivit, Therapeutic 1 TAB PO SCH (08:33)
[2020-09-27] MEDS: Folic Acid 1 MG TAB PO SCH (08:33)
[2020-09-27] MEDS: Rifaximin 550 MG TAB PO SCH (08:33)
[2020-09-27] MEDS: Furosemide 40 MG TAB PO SCH ×2 (08:33→14:49)
[2020-09-27] MEDS: busPIRone HCl 10 MG TAB PO SCH (08:33)
[2020-09-27] MEDS: Magnesium Oxide 250 MG TAB PO SCH (08:33)
[2020-09-27] MEDS: Cyanocobalamin (Vitamin B-12) 1,000 MCG TAB PO SCH (08:34)
[2020-09-27] MEDS: Fluticasone Propionate Nasal Spray 16 gm Bottle NASAL SCH (08:34)
[2020-09-27] MEDS: Cholecalciferol 1,000 UNITS (25 MCG) TAB PO SCH (08:34)
[2020-09-27] MEDS: Spironolactone 100 MG TAB PO SCH (08:38)
[2020-09-27] MEDS: Midodrine HCl 5 MG TAB PO SCH ×3 (08:38→16:35)
[2020-09-27] MEDS: traMADol HCl 50 MG TAB PO PRN (08:42)
[2020-09-27 16:35] VITALS: BP 116/69; TEMP 97.8
== END 2020-09-27 16:54 | disposition home or self-care (01) | DRG 314 ==
LOC: ERS 11:32 → 2NO 15:20 → T4-A 09-26 20:07
PROVIDERS: ADMIT Emergency Medicine; ATTEND Emergency Medicine
PROC: 0W9G3ZX Drainage of Peritoneal Cavity, Percutaneous Approach, Diagnostic (ICD-10-PCS; principal; 2020-09-21)
PROC: 0W9G3ZZ Drainage of Peritoneal Cavity, Percutaneous Approach (ICD-10-PCS; 2020-09-24)
PROC: 30233N1 Transfusion of Nonautologous Red Blood Cells into Peripheral Vein, Percutaneous Approach (ICD-10-PCS; 2020-09-25)
PROC: 0W3P8ZZ Control Bleeding in Gastrointestinal Tract, Via Natural or Artificial Opening Endoscopic (ICD-10-PCS; 2020-09-26)
DX: T80.211A Bloodstream infection due to central venous catheter, initial encounter (principal); A41.9 Sepsis, unspecified organism; K31.811 Angiodysplasia of stomach and duodenum with bleeding; I85.10 Secondary esophageal varices without bleeding; E87.1 Hypo-osmolality and hyponatremia; K76.6 Portal hypertension; Z20.828 Contact with and (suspected) exposure to other viral communicable diseases; K21.9 Gastro-esophageal reflux disease without esophagitis; J45.909 Unspecified asthma, uncomplicated; D50.9 Iron deficiency anemia, unspecified; F41.9 Anxiety disorder, unspecified; F32.9 Major depressive disorder, single episode, unspecified; D69.6 Thrombocytopenia, unspecified; I10 Essential (primary) hypertension; K76.0 Fatty (change of) liver, not elsewhere classified; M48.00 Spinal stenosis, site unspecified; K70.31 Alcoholic cirrhosis of liver with ascites; F10.20 Alcohol dependence, uncomplicated; Z90.49 Acquired absence of other specified parts of digestive tract; Z88.5 Allergy status to narcotic agent; Z88.0 Allergy status to penicillin; Z88.2 Allergy status to sulfonamides; Z88.8 Allergy status to other drugs, medicaments and biological substances; Z79.51 Long term (current) use of inhaled steroids; Z79.899 Other long term (current) drug therapy; Y83.8 Other surgical procedures as the cause of abnormal reaction of the patient, or of later complication, without mention of misadventure at the time of the procedure
CPT/HCPCS: 0240U; 36415; 36416; 36430; 49083; 51701; 71045; 71046; 74177; 80053; 81003; 81015; 82945; 83036; 83605; 83630; 83690; 83735; 84100; 84157; 84484; 85025; 85060; 85610; 85730; 86850; 86900; 86901; 87040; 87045; 87046; 87070; 87077; 87086; 87186; 87205; 87427; 87449; 89051; 93005; 93306; 94760; 96365; 96366; 96367; J0692; J0696; J1580; J1815; J2405; J2704; J3370; J3475; J3490; J7030; P9016; P9047

== ENCOUNTER 2020-10-01 08:52 | Day surgery (SDC) | payer OTHER ==
[2020-10-01] MEDS ORDERED: Sodium Bicarbonate 2.5 MEQ/5 ML VIAL ONE (10:49)
[2020-10-01] MEDS ORDERED: Lidocaine 1% PF 5 ML VIAL ONE ×2 (10:49→11:23)
[2020-10-01] MEDS ORDERED: Albumin 25% 200 ML ONE (10:49)
[2020-10-01] MEDS ORDERED: Sodium Chloride 0.9% 20 ML ONE (11:13)
[2020-10-01 12:23] VITALS: BP 111/63; TEMP 98.2
--- NOTE | 2020-10-01 12:50 | ULT ---
ULTRASOUND-GUIDED PARACENTESIS THERAPEUTIC: DATE: 10/01/2020 HISTORY: Symptomatic ascites: Abdominal distention. Cirrhosis. 54-year-old female. TECHNIQUE: Signed informed consent obtained. A four-quadrant survey of abdomen performed. Site selected for puncture: right lower quadrant Overlying skin prepared and draped in usual sterile fashion. 25-gauge needle used to apply buffered lidocaine superficially and deeply. 5 Indonesian Yueh catheter with stylette advanced into the pocket of free intraperitoneal fluid. After drainage, the Yueh catheter was removed. Patient tolerated the procedure well. No complications. FINDINGS: Volume of ascites prior to procedure:large. Volume of ascites fluid in the drainage pocket after drainage:moderate. Volume of ascites fluid drained:7000 mL Appearance of ascites fluid:Clear, colorless IMPRESSION: Successful therapeutic paracentesis, with drainage of 7 L of ascites fluid.
== END 2020-10-01 12:05 | disposition home or self-care (01) ==
LOC: ULT 08:52
PROVIDERS: ATTEND Internal Medicine Gastroenterology
PROC: 0W9G3ZZ Drainage of Peritoneal Cavity, Percutaneous Approach (ICD-10-PCS; principal; 2020-10-01)
DX: K74.60 Unspecified cirrhosis of liver (principal); R18.8 Other ascites; J44.9 Chronic obstructive pulmonary disease, unspecified; I12.9 Hypertensive chronic kidney disease with stage 1 through stage 4 chronic kidney disease, or unspecified chronic kidney disease; E11.22 Type 2 diabetes mellitus with diabetic chronic kidney disease; N18.9 Chronic kidney disease, unspecified; D63.1 Anemia in chronic kidney disease; F41.9 Anxiety disorder, unspecified; F32.9 Major depressive disorder, single episode, unspecified; G89.29 Other chronic pain; M54.9 Dorsalgia, unspecified; K31.819 Angiodysplasia of stomach and duodenum without bleeding; Z79.4 Long term (current) use of insulin; Z79.899 Other long term (current) drug therapy; Z87.891 Personal history of nicotine dependence; Z88.0 Allergy status to penicillin; Z88.2 Allergy status to sulfonamides; Z88.5 Allergy status to narcotic agent; Z88.6 Allergy status to analgesic agent; Z88.8 Allergy status to other drugs, medicaments and biological substances; Z91.018 Allergy to other foods
CPT/HCPCS: 49083; 96374; J1580; P9047

== ENCOUNTER 2020-10-08 09:41 | Day surgery (SDC) | payer OTHER ==
[2020-10-08] MEDS ORDERED: Sodium Bicarbonate 2.5 MEQ/5 ML VIAL ONE (10:17)
[2020-10-08] MEDS ORDERED: Lidocaine 1% PF 5 ML VIAL ONE (10:17)
[2020-10-08] MEDS ORDERED: Albumin 25% 200 ML ONE (10:17)
[2020-10-08] MEDS ORDERED: Sodium Chloride 0.9% 10 ML ONE (10:29)
[2020-10-08 11:29] LABS: #Basophils 0.1 thou/uL (0.0-0.2); #Eosinphils 0.3 thou/uL (0.0-0.7); #Lymphocytes 0.4 thou/uL (1.20-3.40); #Monocytes 0.5 thou/uL (0.11-0.59); #Neutrophils 4.4 thou/uL (1.40-6.50); %Basophils 1.4 % (0.0-1.0); %Eosinophils 4.7 % (0.0-10.0); %Monocytes 9.3 % (0.0-10.0); %Neutrophils 77.6 % (42.0-75.0); Hemoglobin 8.7 g/dL (12.0-16.0); Mean Corpuscular HGB CONC 32.7 g/dL (32.0-36.0); Mean Corpuscular Hemoglobin 31.5 pg (27.0-31.0); Mean Corpuscular Volume 96.5 fL (78.0-98.0); Platelet Count 79 thou/uL (130-400); Red Blood Cell (RBC) Count 2.75 mill/uL (4.20-5.40); White Blood Cell (WBC) Count 5.7 thou/uL (4.8-10.8)
[2020-10-08 11:34] LABS: ALT (SGPT) 15 U/L (8-55); AST (SGOT) 31 U/L (5-34); Albumin 2.7 g/dL (3.5-5.0); Alkaline Phosphatase 79 U/L (40-110); Anion Gap 12 mmol/L (10-20); BUN (Urea Nitrogen) 28 mg/dL (9.8-20.1); Bilirubin, Total 0.8 mg/dL (0.2-1.2); Calc. Creatinine Clearance 0 mL/min (70-130); Calcium 7.7 mg/dL (7.8-10.44); Carbon Dioxide 18 mmol/L (22-29); Chloride 107 mmol/L (98-107); Globulin 2.6 g/dL (2.4-3.5); Glucose 199 mg/dL (70-105); Potassium 4.1 mmol/L (3.5-5.1); Protein, Total 5.3 g/dL (6.0-8.3); Sodium 133 mmol/L (136-145)
[2020-10-08 11:43] LABS: INR-International Normal Ratio 1.3; Prothrombin Time 16.3 sec (12.0-14.7)
--- NOTE | 2020-10-08 11:47 | ULT ---
Ultrasound-guided paracentesis: HISTORY: Cirrhosis and recurrent ascites FINDINGS: Informed consent obtained prior to the procedure. Preprocedural imaging demonstrated intrap eritoneal free fluid. An area was marked in the mid axillary line right lower quadrant, and then meticulously prepped and d raped in normal sterile fashion and anesthetized with 1% buffered lidocaine. With direct sonographic guidance, a 19-gauge needle and 5 Icelandic Yueh catheter were advanced into the abdomen. After the return of fluid, the catheter was advanced, and the needle was removed. Approximately 7 L of cloudy opaque fluid was aspirated. The introducer sheath was removed, and hemost asis was achieved with direct pressure. A dry sterile dressing was placed. The patient tolerated the procedure well and without immediate complication. IMPRESSION: Technically successful ultrasound-guided paracentesis.
[2020-10-08 12:12] LABS: Follow-up Chemistry Comp? YES; Follow-up Hematology Comp? YES; Follow-up Result - Chemistry REPORT FAXED; Follow-up Result - Hematology REPORT FAXED
[2020-10-08 14:56] VITALS: BP 110/62; TEMP 98.3
== END 2020-10-08 11:50 | disposition home or self-care (01) ==
LOC: ULT 09:41
PROVIDERS: ATTEND Internal Medicine Gastroenterology
PROC: 0W9G3ZZ Drainage of Peritoneal Cavity, Percutaneous Approach (ICD-10-PCS; principal; 2020-10-08)
DX: K74.60 Unspecified cirrhosis of liver (principal); R18.8 Other ascites; K72.90 Hepatic failure, unspecified without coma; D62 Acute posthemorrhagic anemia; K31.819 Angiodysplasia of stomach and duodenum without bleeding; F41.9 Anxiety disorder, unspecified; F32.9 Major depressive disorder, single episode, unspecified; J44.9 Chronic obstructive pulmonary disease, unspecified; I12.9 Hypertensive chronic kidney disease with stage 1 through stage 4 chronic kidney disease, or unspecified chronic kidney disease; E11.22 Type 2 diabetes mellitus with diabetic chronic kidney disease; N18.9 Chronic kidney disease, unspecified; M19.90 Unspecified osteoarthritis, unspecified site; K21.9 Gastro-esophageal reflux disease without esophagitis; Z87.891 Personal history of nicotine dependence; Z79.4 Long term (current) use of insulin; Z79.899 Other long term (current) drug therapy; Z88.0 Allergy status to penicillin; Z88.2 Allergy status to sulfonamides; Z88.6 Allergy status to analgesic agent; Z88.8 Allergy status to other drugs, medicaments and biological substances; Z91.018 Allergy to other foods
CPT/HCPCS: 49083; 80053; 85025; 85610; 96374; J1580; P9047

== ENCOUNTER → 2020-10-14 | Day surgery (SDC) | payer OTHER ==
[~2020-10-14] MED LIST changes: +Albumin 25% 200 ML ONE; -FLU VACC QS2020-21(6MOS UP)/PF 60 MCG/0.5 ML SYRINGE IM ONE; +Lidocaine 1% PF 5 ML VIAL ONE; +Sodium Bicarbonate 2.5 MEQ/5 ML VIAL ONE
[2020-10-14 14:53] VITALS: BP 109/65; TEMP 98.4; BMI 31.3
== END ==
LOC: ULT 10:59
PROVIDERS: ATTEND Internal Medicine Gastroenterology
DX: K74.60 Unspecified cirrhosis of liver (principal); R18.8 Other ascites; Z53.8 Procedure and treatment not carried out for other reasons; Z79.4 Long term (current) use of insulin; Z79.899 Other long term (current) drug therapy; Z88.0 Allergy status to penicillin; Z88.2 Allergy status to sulfonamides; Z88.5 Allergy status to narcotic agent; Z88.6 Allergy status to analgesic agent; Z91.018 Allergy to other foods; Z91.048 Other nonmedicinal substance allergy status
CPT/HCPCS: J1642; P9047

== ENCOUNTER 2020-10-22 09:51 | Day surgery (SDC) | payer OTHER ==
[2020-10-22] MEDS ORDERED: Sodium Bicarbonate 2.5 MEQ/5 ML VIAL ONE (09:59)
[2020-10-22] MEDS ORDERED: Albumin 25% 200 ML ONE (09:59)
[2020-10-22] MEDS ORDERED: Lidocaine 1% PF 5 ML VIAL ONE (09:59)
[2020-10-22] MEDS ORDERED: Sodium Chloride 0.9% 20 ML ONE (10:16)
[2020-10-22 11:15] LABS: INR-International Normal Ratio 1.3; Prothrombin Time 16.9 sec (12.0-14.7)
[2020-10-22 11:16] LABS: #Eosinphils 0.3 thou/uL (0.0-0.7); #Lymphocytes 0.6 thou/uL (1.20-3.40); #Monocytes 0.6 thou/uL (0.11-0.59); #Neutrophils 2.6 thou/uL (1.40-6.50); %Basophils 0.9 % (0.0-1.0); %Lymphocytes 14.2 % (21.0-51.0); %Monocytes 13.7 % (0.0-10.0); %Neutrophils 64.3 % (42.0-75.0); Hemoglobin 8.4 g/dL (12.0-16.0); Mean Corpuscular HGB CONC 32.5 g/dL (32.0-36.0); Mean Corpuscular Hemoglobin 30.8 pg (27.0-31.0); Mean Corpuscular Volume 94.5 fL (78.0-98.0); Mean Platelet Volume 10.9 fL (7.4-10.4); Platelet Count 69 thou/uL (130-400); Red Blood Cell (RBC) Count 2.73 mill/uL (4.20-5.40)
[2020-10-22 11:26] LABS: ALT (SGPT) 13 U/L (8-55); AST (SGOT) 22 U/L (5-34); Albumin 2.7 g/dL (3.5-5.0); Alkaline Phosphatase 74 U/L (40-110); Anion Gap 10 mmol/L (10-20); BUN (Urea Nitrogen) 24 mg/dL (9.8-20.1); Calc. Creatinine Clearance 0 mL/min (70-130); Calcium 7.8 mg/dL (7.8-10.44); Carbon Dioxide 21 mmol/L (22-29); Chloride 108 mmol/L (98-107); Globulin 2.3 g/dL (2.4-3.5); Glucose 315 mg/dL (70-105); Potassium 4.1 mmol/L (3.5-5.1); Sodium 135 mmol/L (136-145)
--- NOTE | 2020-10-22 12:07 | ULT ---
Ultrasound-guided paracentesis: HISTORY: Cirrhosis and recurrent ascites FINDINGS: Informed consent obtained prior to the procedure. Preprocedural imaging demonstrated intrap eritoneal free fluid. An area was marked in the left lower quadrant, and then meticulously prepped and draped in normal [place]ren[place] rile fashion and anesthetized with 1% buffered lidocaine. With direct sonographic guidance, a 19-gauge needle and 5 [place] Yueh catheter were advanced into the abdomen. After the return of fluid, the catheter was advanced, and the needle was removed. Approximately 6.1 L of opaque fluid was aspirated. The introducer sheath was removed, and hemostasis was achieved with direct pressure. A dry sterile dressing was placed. The patient tolerated the procedure well and without immediate complication. IMPRESSION: Technically successful ultrasound-guided paracentesis.
[2020-10-22 12:19] VITALS: BMI 29.6
[2020-10-22 12:20] VITALS: BP 103/48; TEMP 98.1
[2020-10-22] MEDS ORDERED: FLU VACC QS2020-21(6MOS UP)/PF 60 MCG/0.5 ML SYRINGE IM ONE (15:30)
== END 2020-10-22 11:43 | disposition home or self-care (01) ==
LOC: ULT 09:51
PROVIDERS: ATTEND Internal Medicine Gastroenterology
PROC: BW40ZZZ Ultrasonography of Abdomen (ICD-10-PCS; principal; 2020-10-22)
PROC: 0W9G3ZZ Drainage of Peritoneal Cavity, Percutaneous Approach (ICD-10-PCS; principal; 2020-10-22)
DX: K74.60 Unspecified cirrhosis of liver (principal); R18.8 Other ascites; J44.9 Chronic obstructive pulmonary disease, unspecified; I12.9 Hypertensive chronic kidney disease with stage 1 through stage 4 chronic kidney disease, or unspecified chronic kidney disease; E11.22 Type 2 diabetes mellitus with diabetic chronic kidney disease; N18.9 Chronic kidney disease, unspecified; D63.1 Anemia in chronic kidney disease; F41.9 Anxiety disorder, unspecified; F32.9 Major depressive disorder, single episode, unspecified; K21.9 Gastro-esophageal reflux disease without esophagitis; G89.29 Other chronic pain; M54.9 Dorsalgia, unspecified; Z79.51 Long term (current) use of inhaled steroids; Z79.899 Other long term (current) drug therapy; Z88.0 Allergy status to penicillin; Z88.2 Allergy status to sulfonamides; Z88.5 Allergy status to narcotic agent; Z88.6 Allergy status to analgesic agent; Z88.8 Allergy status to other drugs, medicaments and biological substances; Z91.018 Allergy to other foods
CPT/HCPCS: 49083; 80053; 85025; 85610; 90471; 90662; G0008; J1642; P9047

== ENCOUNTER 2020-10-29 09:48 | Day surgery (SDC) | payer OTHER ==
[2020-10-29] MEDS ORDERED: Albumin 25% 200 ML ONE (10:05)
[2020-10-29] MEDS ORDERED: Sodium Bicarbonate 2.5 MEQ/5 ML VIAL ONE (10:05)
[2020-10-29] MEDS ORDERED: Lidocaine 1% PF 5 ML VIAL ONE (10:05)
[2020-10-29] MEDS ORDERED: Sodium Chloride 0.9% 10 ML ONE (10:23)
[2020-10-29 11:49] VITALS: BP 105/63; TEMP 97.9
--- NOTE | 2020-10-29 11:53 | ULT ---
ULTRASOUND-GUIDED PARACENTESIS THERAPEUTIC: DATE: 10/29/2020 HISTORY: 54-year-old female with cirrhosis with symptomatic ascites: Abdominal distention TECHNIQUE: Signed informed consent obtained. A four-quadrant survey of abdomen performed. Site selected for puncture: right lower quadrant Overlying skin prepared and draped in usual sterile fashion. 25-gauge needle used to apply buffered lidocaine superficially and deeply. 5 [place] Yueh catheter with stylette advanced into the pocket of free intraperitoneal fluid. After drainage, the Yueh catheter was removed. Patient tolerated the procedure well. No complications. FINDINGS: Volume of ascites prior to procedure:Moderately large. Volume of ascites fluid in the drainage pocket after drainage:Small to moderate. Volume of ascites fluid drained:5100 mL Appearance of ascites fluid:nonhemorrhagic, straw-colored. IMPRESSION: Successful therapeutic paracentesis, with drainage of 5.1 L of ascites fluid.
== END 2020-10-29 11:35 | disposition home or self-care (01) ==
LOC: ULT 09:48
PROVIDERS: ATTEND Internal Medicine Gastroenterology
PROC: 0W9G3ZZ Drainage of Peritoneal Cavity, Percutaneous Approach (ICD-10-PCS; principal; 2020-10-29)
PROC: BW40ZZZ Ultrasonography of Abdomen (ICD-10-PCS; principal; 2020-10-29)
DX: K74.60 Unspecified cirrhosis of liver (principal); R18.8 Other ascites; J44.9 Chronic obstructive pulmonary disease, unspecified; I12.9 Hypertensive chronic kidney disease with stage 1 through stage 4 chronic kidney disease, or unspecified chronic kidney disease; E11.22 Type 2 diabetes mellitus with diabetic chronic kidney disease; N18.9 Chronic kidney disease, unspecified; D63.1 Anemia in chronic kidney disease; F17.200 Nicotine dependence, unspecified, uncomplicated; F41.9 Anxiety disorder, unspecified; F32.9 Major depressive disorder, single episode, unspecified; G89.29 Other chronic pain; M54.9 Dorsalgia, unspecified; M19.90 Unspecified osteoarthritis, unspecified site; Z88.2 Allergy status to sulfonamides; Z88.5 Allergy status to narcotic agent; Z88.8 Allergy status to other drugs, medicaments and biological substances; Z91.018 Allergy to other foods; Z79.4 Long term (current) use of insulin; Z79.899 Other long term (current) drug therapy
CPT/HCPCS: 49083; 87040; 96523; 99211; G0463; J1642; P9047

== ENCOUNTER 2020-11-05 09:22 | Day surgery (SDC) | payer OTHER ==
[2020-11-05] MEDS ORDERED: Sodium Chloride 0.9% 10 ML ONE ×2 (09:34→11:21)
[2020-11-05] MEDS ORDERED: Albumin 25% 200 ML ONE (10:11)
[2020-11-05] MEDS ORDERED: Lidocaine 1% PF 5 ML VIAL ONE (10:11)
[2020-11-05 10:43] VITALS: BP 117/63; TEMP 98
[2020-11-05 11:07] LABS: #Eosinphils 0.3 thou/uL (0.0-0.7); #Lymphocytes 0.5 thou/uL (1.20-3.40); #Monocytes 0.6 thou/uL (0.11-0.59); #Neutrophils 3.6 thou/uL (1.40-6.50); %Basophils 0.9 % (0.0-1.0); %Eosinophils 5.2 % (0.0-10.0); %Lymphocytes 10.5 % (21.0-51.0); %Monocytes 12.6 % (0.0-10.0); %Neutrophils 70.9 % (42.0-75.0); Hemoglobin 8.5 g/dL (12.0-16.0); Mean Corpuscular HGB CONC 32.4 g/dL (32.0-36.0); Mean Corpuscular Hemoglobin 30.1 pg (27.0-31.0); Mean Corpuscular Volume 92.8 fL (78.0-98.0); Mean Platelet Volume 11.5 fL (7.4-10.4); Platelet Count 76 thou/uL (130-400); RBC Distribution Width 13.5 % (11.5-14.5); Red Blood Cell (RBC) Count 2.84 mill/uL (4.20-5.40)
[2020-11-05 11:13] LABS: INR-International Normal Ratio 1.4; Prothrombin Time 17.4 sec (12.0-14.7)
[2020-11-05 11:30] LABS: ALT (SGPT) 13 U/L (8-55); AST (SGOT) 21 U/L (5-34); Albumin 2.8 g/dL (3.5-5.0); Alkaline Phosphatase 95 U/L (40-110); Anion Gap 13 mmol/L (10-20); BUN (Urea Nitrogen) 25 mg/dL (9.8-20.1); Bilirubin, Total 1.1 mg/dL (0.2-1.2); Calc. Creatinine Clearance 0 mL/min (70-130); Calcium 8.2 mg/dL (7.8-10.44); Carbon Dioxide 20 mmol/L (22-29); Chloride 105 mmol/L (98-107); Globulin 2.4 g/dL (2.4-3.5); Glucose 315 mg/dL (70-105); Potassium 4.2 mmol/L (3.5-5.1); Protein, Total 5.2 g/dL (6.0-8.3); Sodium 134 mmol/L (136-145)
== END 2020-11-05 11:35 | disposition home or self-care (01) ==
LOC: ULT 09:22
PROVIDERS: ATTEND Internal Medicine Gastroenterology
PROC: BW40ZZZ Ultrasonography of Abdomen (ICD-10-PCS; principal; 2020-11-05)
PROC: 0W9G3ZZ Drainage of Peritoneal Cavity, Percutaneous Approach (ICD-10-PCS; principal; 2020-11-05)
DX: K74.60 Unspecified cirrhosis of liver (principal); R18.8 Other ascites; I12.9 Hypertensive chronic kidney disease with stage 1 through stage 4 chronic kidney disease, or unspecified chronic kidney disease; E11.22 Type 2 diabetes mellitus with diabetic chronic kidney disease; N18.9 Chronic kidney disease, unspecified; D63.1 Anemia in chronic kidney disease; J44.9 Chronic obstructive pulmonary disease, unspecified; F41.9 Anxiety disorder, unspecified; F32.9 Major depressive disorder, single episode, unspecified; M19.90 Unspecified osteoarthritis, unspecified site; G89.29 Other chronic pain; M54.9 Dorsalgia, unspecified; Z79.4 Long term (current) use of insulin; Z79.51 Long term (current) use of inhaled steroids; Z79.899 Other long term (current) drug therapy; Z87.891 Personal history of nicotine dependence; Z88.5 Allergy status to narcotic agent; Z88.8 Allergy status to other drugs, medicaments and biological substances; Z88.2 Allergy status to sulfonamides; Z91.018 Allergy to other foods
CPT/HCPCS: 49083; 80053; 85025; 85610; 99211; G0463; J1642; P9047

== ENCOUNTER 2020-11-12 09:49 | Day surgery (SDC) | payer OTHER ==
[2020-11-08 08:42] VITALS: BMI 33.6
[2020-11-12] MEDS ORDERED: Sodium Bicarbonate 2.5 MEQ/5 ML VIAL ONE (10:10)
[2020-11-12] MEDS ORDERED: Lidocaine 1% PF 5 ML VIAL ONE (10:10)
[2020-11-12] MEDS ORDERED: Albumin 25% 200 ML ONE (10:10)
[2020-11-12] MEDS ORDERED: Sodium Chloride 0.9% 10 ML ONE (10:27)
[2020-11-12 11:33] VITALS: BP 106/62; TEMP 98.2
== END 2020-11-12 11:34 | disposition home or self-care (01) ==
LOC: ULT 09:49
PROVIDERS: ATTEND Internal Medicine Gastroenterology
PROC: 0W9G3ZZ Drainage of Peritoneal Cavity, Percutaneous Approach (ICD-10-PCS; principal; 2020-11-12)
DX: K74.60 Unspecified cirrhosis of liver (principal); R18.8 Other ascites; I12.9 Hypertensive chronic kidney disease with stage 1 through stage 4 chronic kidney disease, or unspecified chronic kidney disease; E11.22 Type 2 diabetes mellitus with diabetic chronic kidney disease; N18.9 Chronic kidney disease, unspecified; F41.9 Anxiety disorder, unspecified; F32.9 Major depressive disorder, single episode, unspecified; J44.9 Chronic obstructive pulmonary disease, unspecified; F17.210 Nicotine dependence, cigarettes, uncomplicated; D63.1 Anemia in chronic kidney disease; M19.90 Unspecified osteoarthritis, unspecified site; G89.29 Other chronic pain; M54.9 Dorsalgia, unspecified; Z79.4 Long term (current) use of insulin; Z79.51 Long term (current) use of inhaled steroids; Z79.899 Other long term (current) drug therapy; Z88.0 Allergy status to penicillin; Z88.2 Allergy status to sulfonamides; Z88.5 Allergy status to narcotic agent; Z88.6 Allergy status to analgesic agent; Z88.8 Allergy status to other drugs, medicaments and biological substances; Z91.018 Allergy to other foods
CPT/HCPCS: 49083; 96523; 99211; G0463; J1642; P9047

== ENCOUNTER 2020-11-19 09:20 | Day surgery (SDC) | payer OTHER ==
[2020-11-19] MEDS ORDERED: Albumin 25% 200 ML ONE (10:38)
[2020-11-19] MEDS ORDERED: Lidocaine 1% PF 5 ML VIAL ONE (10:38)
[2020-11-19] MEDS ORDERED: Sodium Bicarbonate 2.5 MEQ/5 ML VIAL ONE (10:38)
[2020-11-19 11:00] LABS: #Basophils 0.1 thou/uL (0.0-0.2); #Eosinphils 0.3 thou/uL (0.0-0.7); #Lymphocytes 0.6 thou/uL (1.20-3.40); #Monocytes 0.4 thou/uL (0.11-0.59); %Basophils 1.8 % (0.0-1.0); %Eosinophils 8.9 % (0.0-10.0); %Lymphocytes 16.5 % (21.0-51.0); %Monocytes 12.9 % (0.0-10.0); %Neutrophils 59.8 % (42.0-75.0); Hemoglobin 7.8 g/dL (12.0-16.0); Mean Corpuscular HGB CONC 31.8 g/dL (32.0-36.0); Mean Corpuscular Hemoglobin 29.6 pg (27.0-31.0); Mean Platelet Volume 10.9 fL (7.4-10.4); Platelet Count 70 thou/uL (130-400); RBC Distribution Width 13.8 % (11.5-14.5); Red Blood Cell (RBC) Count 2.65 mill/uL (4.20-5.40); White Blood Cell (WBC) Count 3.4 thou/uL (4.8-10.8)
[2020-11-19 11:08] LABS: INR-International Normal Ratio 1.4
[2020-11-19] MEDS ORDERED: Sodium Chloride 0.9% 10 ML ONE (11:15)
[2020-11-19 11:54] LABS: ALT (SGPT) 13 U/L (8-55); AST (SGOT) 24 U/L (5-34); Albumin 2.8 g/dL (3.5-5.0); Alkaline Phosphatase 82 U/L (40-110); Anion Gap 10 mmol/L (10-20); BUN (Urea Nitrogen) 27 mg/dL (9.8-20.1); Calc. Creatinine Clearance 0 mL/min (70-130); Calcium 7.7 mg/dL (7.8-10.44); Carbon Dioxide 22 mmol/L (22-29); Chloride 106 mmol/L (98-107); Globulin 2.1 g/dL (2.4-3.5); Glucose 278 mg/dL (70-105); Potassium 3.9 mmol/L (3.5-5.1); Protein, Total 4.9 g/dL (6.0-8.3); Sodium 134 mmol/L (136-145)
[2020-11-19 12:13] LABS: Follow-up Coag Comp? YES; Follow-up Hematology Comp? YES; Follow-up Result - Coag REPORT FAXED; Follow-up Result - Hematology REPORT FAXED
[2020-11-19 12:44] VITALS: BP 107/61; TEMP 97.9
== END 2020-11-19 11:34 | disposition home or self-care (01) ==
LOC: ULT 09:20
PROVIDERS: ATTEND Internal Medicine Gastroenterology
PROC: 0W9G3ZZ Drainage of Peritoneal Cavity, Percutaneous Approach (ICD-10-PCS; principal; 2020-11-19)
DX: K74.60 Unspecified cirrhosis of liver (principal); R18.8 Other ascites; K72.90 Hepatic failure, unspecified without coma; J44.9 Chronic obstructive pulmonary disease, unspecified; M19.90 Unspecified osteoarthritis, unspecified site; I12.9 Hypertensive chronic kidney disease with stage 1 through stage 4 chronic kidney disease, or unspecified chronic kidney disease; E11.22 Type 2 diabetes mellitus with diabetic chronic kidney disease; N18.9 Chronic kidney disease, unspecified; D63.1 Anemia in chronic kidney disease; G89.29 Other chronic pain; M54.9 Dorsalgia, unspecified; K21.9 Gastro-esophageal reflux disease without esophagitis; Z87.891 Personal history of nicotine dependence; Z79.4 Long term (current) use of insulin; Z79.899 Other long term (current) drug therapy; Z88.2 Allergy status to sulfonamides; Z88.5 Allergy status to narcotic agent; Z88.8 Allergy status to other drugs, medicaments and biological substances; Z91.018 Allergy to other foods; Z91.048 Other nonmedicinal substance allergy status
CPT/HCPCS: 49083; 80053; 85025; 85610; 96523; 99211; G0463; J1642; P9047

== ENCOUNTER 2020-11-26 09:18 | Day surgery (SDC) | payer OTHER ==
[2020-11-25 09:16] VITALS: BMI 28.1
[2020-11-26] MEDS ORDERED: Albumin 25% 200 ML ONE (09:31)
[2020-11-26] MEDS ORDERED: Lidocaine 1% PF 5 ML VIAL ONE (09:31)
[2020-11-26] MEDS ORDERED: Sodium Bicarbonate 2.5 MEQ/5 ML VIAL ONE (09:31)
[2020-11-26] MEDS ORDERED: Sodium Chloride 0.9% 10 ML ONE (09:32)
[2020-11-26 10:11] VITALS: BP 106/68; TEMP 98.2
== END 2020-11-26 11:50 | disposition home or self-care (01) ==
LOC: ULT 09:18
PROVIDERS: ATTEND Internal Medicine Gastroenterology
PROC: BW40ZZZ Ultrasonography of Abdomen (ICD-10-PCS; principal; 2020-11-26)
PROC: 0W9G3ZZ Drainage of Peritoneal Cavity, Percutaneous Approach (ICD-10-PCS; principal; 2020-11-26)
DX: K74.60 Unspecified cirrhosis of liver (principal); R18.8 Other ascites; I12.9 Hypertensive chronic kidney disease with stage 1 through stage 4 chronic kidney disease, or unspecified chronic kidney disease; E11.22 Type 2 diabetes mellitus with diabetic chronic kidney disease; N18.9 Chronic kidney disease, unspecified; D63.1 Anemia in chronic kidney disease; F17.200 Nicotine dependence, unspecified, uncomplicated; J44.9 Chronic obstructive pulmonary disease, unspecified; K21.9 Gastro-esophageal reflux disease without esophagitis; M19.90 Unspecified osteoarthritis, unspecified site; G89.29 Other chronic pain; M54.9 Dorsalgia, unspecified; Z79.2 Long term (current) use of antibiotics; Z79.4 Long term (current) use of insulin; Z79.51 Long term (current) use of inhaled steroids; Z79.899 Other long term (current) drug therapy; Z88.0 Allergy status to penicillin; Z88.2 Allergy status to sulfonamides; Z88.5 Allergy status to narcotic agent; Z88.6 Allergy status to analgesic agent; Z88.8 Allergy status to other drugs, medicaments and biological substances; Z91.018 Allergy to other foods
CPT/HCPCS: 49083; J1642; P9047

== ENCOUNTER 2020-12-02 12:04 | Outpatient (CLI) | payer OTHER | END 2020-12-02 12:05 | disposition home or self-care (01) | LOC: BICMAMMO 12:04 | PROVIDERS: ATTEND Family Medicine | DX: Z12.31 Encounter for screening mammogram for malignant neoplasm of breast (principal) | CPT/HCPCS: 77063; 77067 ==

== ENCOUNTER 2020-12-03 10:17 | Day surgery (SDC) | payer OTHER ==
[2020-12-03] MEDS ORDERED: Sodium Chloride 0.9% 10 ML ONE ×2 (10:46→11:56)
[2020-12-03] MEDS ORDERED: Sodium Bicarbonate 2.5 MEQ/5 ML VIAL ONE (10:46)
[2020-12-03] MEDS ORDERED: Albumin 25% 200 ML ONE (10:46)
[2020-12-03] MEDS ORDERED: Lidocaine 1% PF 5 ML VIAL ONE (10:46)
[2020-12-03 11:31] LABS: Hemoglobin 7.9 g/dL (12.0-16.0); Mean Corpuscular HGB CONC 32.8 g/dL (32.0-36.0); Mean Corpuscular Hemoglobin 30.7 pg (27.0-31.0); Mean Corpuscular Volume 93.5 fL (78.0-98.0); Mean Platelet Volume 11.8 fL (7.4-10.4); Platelet Count 59 thou/uL (130-400); RBC Distribution Width 13.7 % (11.5-14.5); Red Blood Cell (RBC) Count 2.58 mill/uL (4.20-5.40); White Blood Cell (WBC) Count 2.9 thou/uL (4.8-10.8)
[2020-12-03 11:36] LABS: INR-International Normal Ratio 1.4; Prothrombin Time 17.7 sec (12.0-14.7)
[2020-12-03 12:03] LABS: ALT (SGPT) 13 U/L (8-55); AST (SGOT) 22 U/L (5-34); Albumin 2.8 g/dL (3.5-5.0); Alkaline Phosphatase 91 U/L (40-110); Anion Gap 11 mmol/L (10-20); BUN (Urea Nitrogen) 32 mg/dL (9.8-20.1); Bilirubin, Total 0.8 mg/dL (0.2-1.2); Calc. Creatinine Clearance 0 mL/min (70-130); Calcium 7.6 mg/dL (7.8-10.44); Carbon Dioxide 20 mmol/L (22-29); Chloride 108 mmol/L (98-107); Globulin 2.2 g/dL (2.4-3.5); Glucose 245 mg/dL (70-105); Sodium 135 mmol/L (136-145)
[2020-12-03 12:10] LABS: Anisocytosis SLIGHT = 6-15 cells (100X) (0-5/hpf); Eosinophils 6 % (0-10); Hypochromia SLIGHT = 6-15 cells (100X) (0-5/hpf); Lymphocytes 15 % (21-51); MDiff Complete? YES; Microcytosis SLIGHT = 6-15 cells (100X) (0-5/hpf); Monocytes 19 % (0-10); Neutrophil 58 % (42-75); Platelet Morphology Comment Appears Decreased
[2020-12-03 13:26] VITALS: BP 114/75; TEMP 98.3; BMI 29.0
== END 2020-12-03 12:20 | disposition home or self-care (01) ==
LOC: ULT 10:17
PROVIDERS: ATTEND Internal Medicine Gastroenterology
PROC: BW40ZZZ Ultrasonography of Abdomen (ICD-10-PCS; principal; 2020-12-03)
PROC: 0W9G3ZZ Drainage of Peritoneal Cavity, Percutaneous Approach (ICD-10-PCS; principal; 2020-12-03)
DX: K74.60 Unspecified cirrhosis of liver (principal); R18.8 Other ascites; K72.90 Hepatic failure, unspecified without coma; I12.9 Hypertensive chronic kidney disease with stage 1 through stage 4 chronic kidney disease, or unspecified chronic kidney disease; E11.22 Type 2 diabetes mellitus with diabetic chronic kidney disease; N18.9 Chronic kidney disease, unspecified; D63.1 Anemia in chronic kidney disease; J44.9 Chronic obstructive pulmonary disease, unspecified; F41.9 Anxiety disorder, unspecified; F32.9 Major depressive disorder, single episode, unspecified; G89.29 Other chronic pain; M54.9 Dorsalgia, unspecified; M19.90 Unspecified osteoarthritis, unspecified site; Z79.2 Long term (current) use of antibiotics; Z79.4 Long term (current) use of insulin; Z79.899 Other long term (current) drug therapy; Z88.2 Allergy status to sulfonamides; Z88.5 Allergy status to narcotic agent; Z88.8 Allergy status to other drugs, medicaments and biological substances; Z91.018 Allergy to other foods
CPT/HCPCS: 49083; 80053; 85025; 85610; 96523; 99211; G0463; J1642; P9047

== ENCOUNTER 2020-12-10 09:19 | Day surgery (SDC) | payer OTHER ==
[2020-12-10] MEDS ORDERED: Sodium Chloride 0.9% 20 ML ONE (09:30)
[2020-12-10] MEDS ORDERED: Lidocaine 1% PF 5 ML VIAL ONE (09:30)
[2020-12-10] MEDS ORDERED: Sodium Bicarbonate 2.5 MEQ/5 ML VIAL ONE (09:30)
[2020-12-10] MEDS ORDERED: Albumin 25% 200 ML ONE (09:30)
[2020-12-10 12:05] VITALS: BP 111/74; TEMP 97.7
== END 2020-12-10 11:30 | disposition home or self-care (01) ==
LOC: ULT 09:19
PROVIDERS: ATTEND Internal Medicine Gastroenterology
PROC: BW40ZZZ Ultrasonography of Abdomen (ICD-10-PCS; principal; 2020-12-10)
PROC: 0W9G3ZZ Drainage of Peritoneal Cavity, Percutaneous Approach (ICD-10-PCS; principal; 2020-12-10)
DX: K74.60 Unspecified cirrhosis of liver (principal); R18.8 Other ascites; I12.9 Hypertensive chronic kidney disease with stage 1 through stage 4 chronic kidney disease, or unspecified chronic kidney disease; E11.22 Type 2 diabetes mellitus with diabetic chronic kidney disease; N18.9 Chronic kidney disease, unspecified; J44.9 Chronic obstructive pulmonary disease, unspecified; F17.200 Nicotine dependence, unspecified, uncomplicated; D63.1 Anemia in chronic kidney disease; G89.29 Other chronic pain; M54.9 Dorsalgia, unspecified; M19.90 Unspecified osteoarthritis, unspecified site; Z79.4 Long term (current) use of insulin; Z79.899 Other long term (current) drug therapy; Z79.51 Long term (current) use of inhaled steroids; Z88.0 Allergy status to penicillin; Z88.2 Allergy status to sulfonamides; Z88.5 Allergy status to narcotic agent; Z88.6 Allergy status to analgesic agent; Z88.8 Allergy status to other drugs, medicaments and biological substances; Z91.018 Allergy to other foods
CPT/HCPCS: 49083; 76705; 96523; 99211; G0463; J1642; P9047

== ENCOUNTER 2020-12-17 09:29 | Day surgery (SDC) | payer OTHER ==
[2020-12-17] MEDS ORDERED: Sodium Bicarbonate 2.5 MEQ/5 ML VIAL ONE (09:54)
[2020-12-17] MEDS ORDERED: Sodium Chloride 0.9% 20 ML ONE (09:55)
[2020-12-17] MEDS ORDERED: Lidocaine 1% PF 5 ML VIAL ONE (09:55)
[2020-12-17] MEDS ORDERED: Albumin 25% 200 ML ONE (09:55)
[2020-12-17 10:38] LABS: #Eosinphils 0.4 thou/uL (0.0-0.7); #Lymphocytes 0.5 thou/uL (1.20-3.40); #Monocytes 0.6 thou/uL (0.11-0.59); #Neutrophils 2.7 thou/uL (1.40-6.50); %Basophils 0.8 % (0.0-1.0); %Eosinophils 8.6 % (0.0-10.0); %Lymphocytes 12.7 % (21.0-51.0); %Neutrophils 63.9 % (42.0-75.0); Hemoglobin 8.9 g/dL (12.0-16.0); Mean Corpuscular HGB CONC 32.3 g/dL (32.0-36.0); Mean Corpuscular Hemoglobin 30.4 pg (27.0-31.0); Mean Corpuscular Volume 94.3 fL (78.0-98.0); Mean Platelet Volume 9.1 fL (7.4-10.4); Platelet Count 66 thou/uL (130-400); RBC Distribution Width 13.9 % (11.5-14.5); Red Blood Cell (RBC) Count 2.91 mill/uL (4.20-5.40); White Blood Cell (WBC) Count 4.2 thou/uL (4.8-10.8)
[2020-12-17 11:23] LABS: INR-International Normal Ratio 1.4; Prothrombin Time 17.4 sec (12.0-14.7)
[2020-12-17 11:54] LABS: ALT (SGPT) 14 U/L (8-55); AST (SGOT) 25 U/L (5-34); Alkaline Phosphatase 90 U/L (40-110); Anion Gap 15 mmol/L (10-20); BUN (Urea Nitrogen) 31 mg/dL (9.8-20.1); Calc. Creatinine Clearance 0 mL/min (70-130); Calcium 7.9 mg/dL (7.8-10.44); Carbon Dioxide 19 mmol/L (22-29); Chloride 104 mmol/L (98-107); Globulin 2.4 g/dL (2.4-3.5); Glucose 295 mg/dL (70-105); Potassium 4.2 mmol/L (3.5-5.1); Protein, Total 5.4 g/dL (6.0-8.3); Sodium 134 mmol/L (136-145)
[2020-12-17 13:28] VITALS: BP 106/73; TEMP 98.1; BMI 27.3
== END 2020-12-17 11:45 | disposition home or self-care (01) ==
LOC: ULT 09:29
PROVIDERS: ATTEND Internal Medicine Gastroenterology
PROC: 0W9G3ZZ Drainage of Peritoneal Cavity, Percutaneous Approach (ICD-10-PCS; principal; 2020-12-17)
PROC: BW40ZZZ Ultrasonography of Abdomen (ICD-10-PCS; principal; 2020-12-17)
DX: K70.31 Alcoholic cirrhosis of liver with ascites (principal); I12.9 Hypertensive chronic kidney disease with stage 1 through stage 4 chronic kidney disease, or unspecified chronic kidney disease; E11.22 Type 2 diabetes mellitus with diabetic chronic kidney disease; N18.9 Chronic kidney disease, unspecified; D63.1 Anemia in chronic kidney disease; J44.9 Chronic obstructive pulmonary disease, unspecified; F17.200 Nicotine dependence, unspecified, uncomplicated; K21.9 Gastro-esophageal reflux disease without esophagitis; Z88.0 Allergy status to penicillin; Z88.2 Allergy status to sulfonamides; Z88.5 Allergy status to narcotic agent; Z88.6 Allergy status to analgesic agent; Z88.8 Allergy status to other drugs, medicaments and biological substances; Z91.018 Allergy to other foods
CPT/HCPCS: 49083; 80053; 85025; 85610; 96523; 99211; G0463; J1642; P9047

== ENCOUNTER 2020-12-22 03:38 | Inpatient (IN) | payer OTHER ==
[2020-12-22 04:48] LABS: Hemoglobin 9.1 g/dL (12.0-16.0); Mean Corpuscular HGB CONC 31.6 g/dL (32.0-36.0); Mean Corpuscular Hemoglobin 29.5 pg (27.0-31.0); Mean Corpuscular Volume 93.3 fL (78.0-98.0); Mean Platelet Volume 11.6 fL (7.4-10.4); Platelet Count 73 thou/uL (130-400); RBC Distribution Width 13.6 % (11.5-14.5); Red Blood Cell (RBC) Count 3.09 mill/uL (4.20-5.40)
[2020-12-22 04:54] LABS: Eosinophils 11 % (0-10); Lymphocytes 9 % (21-51); MDiff Complete? YES; Monocytes 15 % (0-10); Neutrophil 65 % (42-75); Platelet Morphology Comment Appears Decreased
[2020-12-22 04:57] LABS: ALT (SGPT) 12 U/L (8-55); AST (SGOT) 21 U/L (5-34); Albumin 3.3 g/dL (3.5-5.0); Alkaline Phosphatase 100 U/L (40-110); Anion Gap 12 mmol/L (10-20); BUN (Urea Nitrogen) 37 mg/dL (9.8-20.1); Bilirubin, Total 0.8 mg/dL (0.2-1.2); Calc. Creatinine Clearance 0 mL/min (70-130); Calcium 8.6 mg/dL (7.8-10.44); Carbon Dioxide 19 mmol/L (22-29); Chloride 102 mmol/L (98-107); Globulin 2.6 g/dL (2.4-3.5); Glucose 244 mg/dL (70-105); Potassium 4.4 mmol/L (3.5-5.1); Protein, Total 5.9 g/dL (6.0-8.3); Sodium 129 mmol/L (136-145)
[2020-12-22 05:14] LABS: INR-International Normal Ratio 1.2; Prothrombin Time 15.5 sec (12.0-14.7)
[2020-12-22] MEDS ORDERED: cefTRIAXone\\ROCEPHIN 1 GM VIAL ONE (05:21)
[2020-12-22 07:51] VITALS: BMI 30.2
[2020-12-22] MEDS ORDERED: HumaLOG 300 UNITS/3 ML VIAL SC PRN ×2 (07:53)
[2020-12-22] MEDS ORDERED: Dextrose 5% in Water 1,000 ML IV PRN (07:53)
[2020-12-22] MEDS ORDERED: Dextrose 50% Abboject 50 ML SYRINGE SLOW IVP PRN (07:53)
[2020-12-22] MEDS: Pantoprazole 40 MG VIAL IVP SCH ×2 (08:14→20:32)
[2020-12-22] MEDS ORDERED: Pantoprazole 40 MG VIAL IVP SCH (09:00)
[2020-12-22] MEDS ORDERED: Fluticasone Propionate Nasal Spray 16 gm Bottle NASAL PRN (10:56)
[2020-12-22] MEDS ORDERED: Cyclobenzaprine 10 MG TAB PO PRN (10:56)
[2020-12-22] MEDS ORDERED: Lantus 1000 UNITS/10 ML VIAL SC SCH (11:15)
[2020-12-22] MEDS ORDERED: Melatonin 3 MG TAB PO PRN (11:21)
[2020-12-22 12:03] LABS: SARS-CoV-2 NAA Rapid Test Not Detected (NotDetected)
[2020-12-22] MEDS: Midodrine HCl 5 MG TAB PO SCH ×2 (12:47→17:33)
[2020-12-22] MEDS: Ferrous Sulfate 325 MG TAB PO SCH ×2 (12:47→17:33)
[2020-12-22] MEDS: traMADol HCl 50 MG TAB PO PRN (12:49)
[2020-12-22 15:13] LABS: Hemoglobin 8.7 g/dL (12.0-16.0)
[2020-12-22] MEDS: Furosemide 40 MG TAB PO SCH (20:33)
[2020-12-22] MEDS: Cholecalciferol 1,000 UNITS (25 MCG) TAB PO SCH (20:33)
[2020-12-22] MEDS: Rifaximin 550 MG TAB PO SCH (20:33)
[2020-12-22] MEDS: Spironolactone 100 MG TAB PO SCH (20:35)
[2020-12-22] MEDS ORDERED: Loratadine 10 MG TAB PO SCH (21:00)
[2020-12-23 06:20] LABS: #Eosinphils 0.4 thou/uL (0.0-0.7); #Lymphocytes 0.6 thou/uL (1.20-3.40); #Monocytes 0.5 thou/uL (0.11-0.59); #Neutrophils 1.8 thou/uL (1.40-6.50); %Basophils 1.1 % (0.0-1.0); %Lymphocytes 18.8 % (21.0-51.0); %Monocytes 14.9 % (0.0-10.0); Hemoglobin 8.4 g/dL (12.0-16.0); Mean Corpuscular HGB CONC 31.7 g/dL (32.0-36.0); Mean Corpuscular Hemoglobin 29.7 pg (27.0-31.0); Mean Corpuscular Volume 93.7 fL (78.0-98.0); Mean Platelet Volume 11.4 fL (7.4-10.4); Platelet Count 64 thou/uL (130-400); RBC Distribution Width 13.7 % (11.5-14.5); Red Blood Cell (RBC) Count 2.83 mill/uL (4.20-5.40); White Blood Cell (WBC) Count 3.4 thou/uL (4.8-10.8)
[2020-12-23 06:32] LABS: ALT (SGPT) 12 U/L (8-55); AST (SGOT) 23 U/L (5-34); Albumin 2.8 g/dL (3.5-5.0); Alkaline Phosphatase 81 U/L (40-110); Anion Gap 13 mmol/L (10-20); BUN (Urea Nitrogen) 36 mg/dL (9.8-20.1); Calc. Creatinine Clearance 58 mL/min (70-130); Calcium 8.7 mg/dL (7.8-10.44); Carbon Dioxide 19 mmol/L (22-29); Chloride 108 mmol/L (98-107); Globulin 2.4 g/dL (2.4-3.5); Glucose 104 mg/dL (70-105); Potassium 3.9 mmol/L (3.5-5.1); Protein, Total 5.2 g/dL (6.0-8.3); Sodium 136 mmol/L (136-145)
[2020-12-23] MEDS ORDERED: Magnesium Oxide 400 MG TAB PO SCH (09:00)
[2020-12-23] MEDS ORDERED: Lantus 1000 UNITS/10 ML VIAL SC SCH (09:00)
[2020-12-23] MEDS ORDERED: Folic Acid 1 MG TAB PO SCH (09:00)
[2020-12-23] MEDS ORDERED: Cyanocobalamin (Vitamin B-12) 1,000 MCG TAB PO SCH (09:00)
[2020-12-23] MEDS ORDERED: Multivit, Therapeutic 1 TAB PO SCH (09:00)
[2020-12-23] MEDS ORDERED: Escitalopram Oxalate 10 mg Tablet PO SCH (09:00)
[2020-12-23] MEDS: Rifaximin 550 MG TAB PO SCH (10:35)
[2020-12-23] MEDS: Midodrine HCl 5 MG TAB PO SCH ×2 (10:35→11:03)
[2020-12-23] MEDS: traMADol HCl 50 MG TAB PO PRN (10:36)
[2020-12-23] MEDS: Ferrous Sulfate 325 MG TAB PO SCH ×2 (10:36→11:02)
[2020-12-23] MEDS: Cholecalciferol 1,000 UNITS (25 MCG) TAB PO SCH (10:37)
[2020-12-23] MEDS: Spironolactone 100 MG TAB PO SCH (10:37)
[2020-12-23] MEDS: Furosemide 40 MG TAB PO SCH (10:37)
[2020-12-23] MEDS: Pantoprazole 40 MG VIAL IVP SCH (11:03)
[2020-12-23 11:54] VITALS: BP 93/57; TEMP 97.9
== END 2020-12-23 15:23 | disposition home or self-care (01) | DRG 378 ==
LOC: ERS 03:38 → T4-B 06:14
PROVIDERS: ADMIT Family Medicine; ATTEND Family Medicine
DX: K31.811 Angiodysplasia of stomach and duodenum with bleeding (principal); K76.6 Portal hypertension; E87.1 Hypo-osmolality and hyponatremia; N17.9 Acute kidney failure, unspecified; K70.31 Alcoholic cirrhosis of liver with ascites; Z20.822 Contact with and (suspected) exposure to COVID-19; D50.9 Iron deficiency anemia, unspecified; F41.9 Anxiety disorder, unspecified; J45.909 Unspecified asthma, uncomplicated; K21.9 Gastro-esophageal reflux disease without esophagitis; K31.89 Other diseases of stomach and duodenum; F17.210 Nicotine dependence, cigarettes, uncomplicated; K59.00 Constipation, unspecified; D69.59 Other secondary thrombocytopenia; N18.9 Chronic kidney disease, unspecified; I12.9 Hypertensive chronic kidney disease with stage 1 through stage 4 chronic kidney disease, or unspecified chronic kidney disease; E11.22 Type 2 diabetes mellitus with diabetic chronic kidney disease; J30.9 Allergic rhinitis, unspecified; M48.00 Spinal stenosis, site unspecified; Z88.8 Allergy status to other drugs, medicaments and biological substances; Z88.5 Allergy status to narcotic agent; Z88.2 Allergy status to sulfonamides; Z79.51 Long term (current) use of inhaled steroids; Z79.4 Long term (current) use of insulin; Z79.899 Other long term (current) drug therapy; Z90.49 Acquired absence of other specified parts of digestive tract
CPT/HCPCS: 36415; 36416; 74176; 80053; 85025; 85610; 85730; 86850; 86900; 86901; 96365; C9113; J0696; J1815; U0002

== ENCOUNTER → 2020-12-24 | Day surgery (SDC) | payer OTHER ==
[~2020-12-24] MED LIST changes: +Sodium Chloride 0.9% 10 ML ONE
== END ==
LOC: ULT 09:37
PROVIDERS: ATTEND Internal Medicine Gastroenterology
PROC: 0W9G3ZZ Drainage of Peritoneal Cavity, Percutaneous Approach (ICD-10-PCS; principal; 2020-12-24)
DX: K74.60 Unspecified cirrhosis of liver (principal); R18.8 Other ascites; K72.90 Hepatic failure, unspecified without coma; J44.9 Chronic obstructive pulmonary disease, unspecified; M19.90 Unspecified osteoarthritis, unspecified site; I12.9 Hypertensive chronic kidney disease with stage 1 through stage 4 chronic kidney disease, or unspecified chronic kidney disease; E11.22 Type 2 diabetes mellitus with diabetic chronic kidney disease; N18.9 Chronic kidney disease, unspecified; D63.1 Anemia in chronic kidney disease; G89.29 Other chronic pain; M54.9 Dorsalgia, unspecified; K21.9 Gastro-esophageal reflux disease without esophagitis; Z87.891 Personal history of nicotine dependence; Z79.4 Long term (current) use of insulin; Z79.899 Other long term (current) drug therapy; Z88.2 Allergy status to sulfonamides; Z88.5 Allergy status to narcotic agent; Z88.8 Allergy status to other drugs, medicaments and biological substances; Z91.018 Allergy to other foods; Z91.048 Other nonmedicinal substance allergy status
CPT/HCPCS: 49083; 96523; 99211; G0463; J1642; P9047

== ENCOUNTER 2020-12-31 09:22 | Day surgery (SDC) | payer OTHER ==
[2020-12-27 10:48] VITALS: BMI 34.4
[2020-12-31] MEDS ORDERED: Lidocaine 1% PF 5 ML VIAL ONE (10:01)
[2020-12-31] MEDS ORDERED: Albumin 25% 200 ML ONE (10:01)
[2020-12-31] MEDS ORDERED: Sodium Bicarbonate 2.5 MEQ/5 ML VIAL ONE (10:01)
[2020-12-31] MEDS ORDERED: Sodium Chloride 0.9% 10 ML ONE (10:36)
[2020-12-31 11:39] VITALS: BP 124/62; TEMP 97.9
== END 2020-12-31 11:25 | disposition home or self-care (01) ==
LOC: ULT 09:22
PROVIDERS: ATTEND Internal Medicine Gastroenterology
PROC: 0W9G3ZZ Drainage of Peritoneal Cavity, Percutaneous Approach (ICD-10-PCS; principal; 2020-12-31)
DX: K74.60 Unspecified cirrhosis of liver (principal); R18.8 Other ascites; K72.90 Hepatic failure, unspecified without coma; K31.811 Angiodysplasia of stomach and duodenum with bleeding; D62 Acute posthemorrhagic anemia; I12.9 Hypertensive chronic kidney disease with stage 1 through stage 4 chronic kidney disease, or unspecified chronic kidney disease; E11.22 Type 2 diabetes mellitus with diabetic chronic kidney disease; N18.9 Chronic kidney disease, unspecified; J44.9 Chronic obstructive pulmonary disease, unspecified; M19.90 Unspecified osteoarthritis, unspecified site; Z79.4 Long term (current) use of insulin; Z79.899 Other long term (current) drug therapy; Z87.891 Personal history of nicotine dependence; Z88.0 Allergy status to penicillin; Z88.2 Allergy status to sulfonamides; Z88.5 Allergy status to narcotic agent; Z88.6 Allergy status to analgesic agent; Z88.8 Allergy status to other drugs, medicaments and biological substances; Z91.018 Allergy to other foods
CPT/HCPCS: 49083; 96523; 99211; G0463; J1642; P9047

== ENCOUNTER 2021-01-07 09:44 | Day surgery (SDC) | payer OTHER ==
[2021-01-03 11:06] VITALS: BMI 26.6
[2021-01-07] MEDS ORDERED: Sodium Chloride 0.9% 10 ML ONE (10:11)
[2021-01-07] MEDS ORDERED: Lidocaine 1% PF 5 ML VIAL ONE (10:11)
[2021-01-07] MEDS ORDERED: Sodium Bicarbonate 2.5 MEQ/5 ML VIAL ONE (10:11)
[2021-01-07] MEDS ORDERED: Albumin 25% 200 ML ONE (10:12)
[2021-01-07 10:59] LABS: ALT (SGPT) 14 U/L (8-55); AST (SGOT) 22 U/L (5-34); Albumin 3.3 g/dL (3.5-5.0); Alkaline Phosphatase 81 U/L (40-110); Anion Gap 13 mmol/L (10-20); BUN (Urea Nitrogen) 32 mg/dL (9.8-20.1); Bilirubin, Total 1.3 mg/dL (0.2-1.2); Calc. Creatinine Clearance 47 mL/min (70-130); Calcium 8.7 mg/dL (7.8-10.44); Carbon Dioxide 19 mmol/L (22-29); Chloride 108 mmol/L (98-107); Globulin 2.6 g/dL (2.4-3.5); Glucose 108 mg/dL (70-105); Potassium 3.9 mmol/L (3.5-5.1); Protein, Total 5.9 g/dL (6.0-8.3); Sodium 136 mmol/L (136-145)
[2021-01-07 11:01] LABS: INR-International Normal Ratio 1.3; PTT 40.1 sec (22.9-36.1); Prothrombin Time 16.8 sec (12.0-14.7)
[2021-01-07 11:03] LABS: Hemoglobin 9.6 g/dL (12.0-16.0); Mean Corpuscular HGB CONC 31.4 g/dL (32.0-36.0); Mean Corpuscular Hemoglobin 29.2 pg (27.0-31.0); Mean Platelet Volume 11.7 fL (7.4-10.4); Platelet Count 67 thou/uL (130-400); RBC Distribution Width 13.1 % (11.5-14.5); White Blood Cell (WBC) Count 3.8 thou/uL (4.8-10.8)
[2021-01-07 11:47] LABS: Band 2 % (5-11); Eosinophils 5 % (0-10); Hypochromia SLIGHT = 6-15 cells (100X) (0-5/hpf); Lymphocytes 15 % (21-51); MDiff Complete? YES; Monocytes 10 % (0-10); Neutrophil 67 % (42-75); Platelet Morphology Comment Appears Decreased; Polychromasia SLIGHT = 2-3 cells (100X) (0-2/hpf); Reactive Lymphocytes 1 % (0-10)
[2021-01-07 12:03] VITALS: BP 107/60; TEMP 97.9
== END 2021-01-07 11:30 | disposition home or self-care (01) ==
LOC: ULT 09:44
PROVIDERS: ATTEND Internal Medicine Gastroenterology
PROC: BW40ZZZ Ultrasonography of Abdomen (ICD-10-PCS; principal; 2021-01-07)
PROC: 0W9G3ZZ Drainage of Peritoneal Cavity, Percutaneous Approach (ICD-10-PCS; principal; 2021-01-07)
DX: K74.60 Unspecified cirrhosis of liver (principal); R18.8 Other ascites; I12.9 Hypertensive chronic kidney disease with stage 1 through stage 4 chronic kidney disease, or unspecified chronic kidney disease; E11.22 Type 2 diabetes mellitus with diabetic chronic kidney disease; N18.9 Chronic kidney disease, unspecified; D63.1 Anemia in chronic kidney disease; J44.9 Chronic obstructive pulmonary disease, unspecified; M19.90 Unspecified osteoarthritis, unspecified site; G89.29 Other chronic pain; M54.9 Dorsalgia, unspecified; Z88.2 Allergy status to sulfonamides; Z88.5 Allergy status to narcotic agent; Z91.018 Allergy to other foods; Z88.8 Allergy status to other drugs, medicaments and biological substances; Z79.4 Long term (current) use of insulin; Z79.899 Other long term (current) drug therapy; Z79.51 Long term (current) use of inhaled steroids
CPT/HCPCS: 49083; 80053; 85025; 85610; 85730; 96523; 99211; G0463; J1642; P9047

== ENCOUNTER 2021-01-14 09:42 | Day surgery (SDC) | payer OTHER ==
[2021-01-08 07:04] VITALS: BMI 26.6
[2021-01-14] MEDS ORDERED: Sodium Chloride 0.9% 10 ML ONE ×2 (09:46→10:27)
[2021-01-14] MEDS ORDERED: Sodium Bicarbonate 2.5 MEQ/5 ML VIAL ONE (10:38)
[2021-01-14] MEDS ORDERED: Albumin 25% 200 ML ONE (11:22)
[2021-01-14 11:30] VITALS: BP 103/54; TEMP 97.6
== END 2021-01-14 11:15 | disposition home or self-care (01) ==
LOC: ULT 09:42
PROVIDERS: ATTEND Internal Medicine Gastroenterology
PROC: 0W9G3ZZ Drainage of Peritoneal Cavity, Percutaneous Approach (ICD-10-PCS; principal; 2021-01-14)
DX: K74.60 Unspecified cirrhosis of liver (principal); R18.8 Other ascites; K72.90 Hepatic failure, unspecified without coma; I12.9 Hypertensive chronic kidney disease with stage 1 through stage 4 chronic kidney disease, or unspecified chronic kidney disease; E11.22 Type 2 diabetes mellitus with diabetic chronic kidney disease; N18.9 Chronic kidney disease, unspecified; D63.1 Anemia in chronic kidney disease; G89.29 Other chronic pain; M54.9 Dorsalgia, unspecified; J44.9 Chronic obstructive pulmonary disease, unspecified; M19.90 Unspecified osteoarthritis, unspecified site; Z87.891 Personal history of nicotine dependence; Z79.4 Long term (current) use of insulin; Z79.899 Other long term (current) drug therapy; Z88.0 Allergy status to penicillin; Z88.2 Allergy status to sulfonamides; Z88.5 Allergy status to narcotic agent; Z88.8 Allergy status to other drugs, medicaments and biological substances; Z91.018 Allergy to other foods; Z91.048 Other nonmedicinal substance allergy status
CPT/HCPCS: 36592; 49083; 99211; G0463; J1642; P9047

== ENCOUNTER 2021-01-21 09:57 | Day surgery (SDC) | payer OTHER ==
[2021-01-17 14:17] VITALS: BMI 25.8
[2021-01-21] MEDS ORDERED: Sodium Bicarbonate 2.5 MEQ/5 ML VIAL ONE (10:15)
[2021-01-21] MEDS ORDERED: Lidocaine 1% PF 5 ML VIAL ONE (10:15)
[2021-01-21] MEDS ORDERED: Albumin 25% 200 ML ONE (10:15)
[2021-01-21 11:12] LABS: Mean Corpuscular HGB CONC 32.6 g/dL (32.0-36.0); Mean Corpuscular Hemoglobin 30.2 pg (27.0-31.0); Mean Corpuscular Volume 92.7 fL (78.0-98.0); Mean Platelet Volume 11.1 fL (7.4-10.4); Platelet Count 69 thou/uL (130-400); RBC Distribution Width 12.6 % (11.5-14.5); Red Blood Cell (RBC) Count 3.32 mill/uL (4.20-5.40)
[2021-01-21 11:27] LABS: INR-International Normal Ratio 1.2; Prothrombin Time 15.6 sec (12.0-14.7)
[2021-01-21 11:29] LABS: ALT (SGPT) 12 U/L (8-55); AST (SGOT) 25 U/L (5-34); Albumin 3.3 g/dL (3.5-5.0); Alkaline Phosphatase 103 U/L (40-110); Anion Gap 11 mmol/L (10-20); BUN (Urea Nitrogen) 39 mg/dL (9.8-20.1); Bilirubin, Total 0.8 mg/dL (0.2-1.2); Calc. Creatinine Clearance 39 mL/min (70-130); Calcium 8.6 mg/dL (7.8-10.44); Carbon Dioxide 23 mmol/L (22-29); Chloride 103 mmol/L (98-107); Globulin 2.8 g/dL (2.4-3.5); Glucose 201 mg/dL (70-105); Potassium 4.7 mmol/L (3.5-5.1); Protein, Total 6.1 g/dL (6.0-8.3); Sodium 132 mmol/L (136-145)
[2021-01-21] MEDS ORDERED: Sodium Chloride 0.9% 10 ML ONE (11:38)
[2021-01-21 12:41] VITALS: BP 105/62; TEMP 98.6
[2021-01-21 12:57] LABS: Band 1 % (5-11); Eosinophils 8 % (0-10); Lymphocytes 9 % (21-51); MDiff Complete? YES; Monocytes 13 % (0-10); Neutrophil 67 % (42-75); Ovalocytes SLIGHT = 2-5 cells (100X) (0-1/hpf); Platelet Morphology Comment Appears Decreased; Polychromasia SLIGHT = 2-3 cells (100X) (0-2/hpf)
== END 2021-01-21 12:05 | disposition home or self-care (01) ==
LOC: ULT 09:57
PROVIDERS: ATTEND Internal Medicine Gastroenterology
PROC: 0W9G3ZZ Drainage of Peritoneal Cavity, Percutaneous Approach (ICD-10-PCS; principal; 2021-01-21)
DX: K74.60 Unspecified cirrhosis of liver (principal); R18.8 Other ascites; K72.90 Hepatic failure, unspecified without coma; I12.9 Hypertensive chronic kidney disease with stage 1 through stage 4 chronic kidney disease, or unspecified chronic kidney disease; E11.22 Type 2 diabetes mellitus with diabetic chronic kidney disease; N18.9 Chronic kidney disease, unspecified; D63.1 Anemia in chronic kidney disease; M19.90 Unspecified osteoarthritis, unspecified site; G89.29 Other chronic pain; M54.9 Dorsalgia, unspecified; J44.9 Chronic obstructive pulmonary disease, unspecified; Z87.891 Personal history of nicotine dependence; Z79.4 Long term (current) use of insulin; Z79.899 Other long term (current) drug therapy; Z88.0 Allergy status to penicillin; Z88.2 Allergy status to sulfonamides; Z88.5 Allergy status to narcotic agent; Z88.8 Allergy status to other drugs, medicaments and biological substances; Z91.018 Allergy to other foods; Z91.048 Other nonmedicinal substance allergy status
CPT/HCPCS: 49083; 80053; 85025; 85610; 99211; G0463; J1642; P9047

== ENCOUNTER 2021-01-28 09:55 | Day surgery (SDC) | payer OTHER ==
[2021-01-23 12:05] VITALS: BMI 26.6
[2021-01-28] MEDS ORDERED: Lidocaine 1% PF 5 ML VIAL ONE (11:03)
[2021-01-28] MEDS ORDERED: Sodium Bicarbonate 2.5 MEQ/5 ML VIAL ONE (11:03)
[2021-01-28] MEDS ORDERED: Albumin 25% 200 ML ONE (11:03)
[2021-01-28] MEDS ORDERED: Sodium Chloride 0.9% 10 ML ONE ×2 (11:04→11:43)
[2021-01-28 13:32] VITALS: BP 117/66; TEMP 97.6
[2021-01-28 14:21] LABS: RBC Count-Automated (BF) 60 /cu.mm; WBC/Nucleated-Auto (BF) 50 uL
[2021-01-28 15:07] LABS: BF Color Yellow; Body Fluid Source Ascites Body Fluid; Clarity Clear (Clear); Tube # EDTA
[2021-01-28 15:10] LABS: Cell Count Non Hematic 66 %; Eosinophils 1 %; Lymphocytes 33 %
== END 2021-01-28 12:15 | disposition home or self-care (01) ==
LOC: ULT 09:55
PROVIDERS: ATTEND Internal Medicine Gastroenterology
PROC: 0W9G3ZX Drainage of Peritoneal Cavity, Percutaneous Approach, Diagnostic (ICD-10-PCS; principal; 2021-01-28)
DX: K74.60 Unspecified cirrhosis of liver (principal); R18.8 Other ascites; K72.90 Hepatic failure, unspecified without coma; I12.9 Hypertensive chronic kidney disease with stage 1 through stage 4 chronic kidney disease, or unspecified chronic kidney disease; E11.22 Type 2 diabetes mellitus with diabetic chronic kidney disease; N18.9 Chronic kidney disease, unspecified; D63.1 Anemia in chronic kidney disease; J44.9 Chronic obstructive pulmonary disease, unspecified; M19.90 Unspecified osteoarthritis, unspecified site; G89.29 Other chronic pain; M54.9 Dorsalgia, unspecified; Z87.891 Personal history of nicotine dependence; Z79.4 Long term (current) use of insulin; Z79.899 Other long term (current) drug therapy; Z88.2 Allergy status to sulfonamides; Z88.5 Allergy status to narcotic agent; Z88.8 Allergy status to other drugs, medicaments and biological substances; Z91.018 Allergy to other foods; Z91.048 Other nonmedicinal substance allergy status
CPT/HCPCS: 49083; 85060; 87070; 87205; 89051; J1642; P9047

== ENCOUNTER 2021-02-04 09:58 | Day surgery (SDC) | payer OTHER ==
[2021-01-31 15:28] VITALS: BMI 26.6
[2021-02-04] MEDS ORDERED: Sodium Chloride 0.9% 20 ML ONE (10:03)
[2021-02-04] MEDS ORDERED: Lidocaine 1% PF 5 ML VIAL ONE (10:03)
[2021-02-04] MEDS ORDERED: Sodium Bicarbonate 2.5 MEQ/5 ML VIAL ONE (10:03)
[2021-02-04] MEDS ORDERED: Albumin 25% 200 ML ONE (10:03)
[2021-02-04 10:55] LABS: #Basophils 0.1 thou/uL (0.0-0.2); #Eosinphils 0.3 thou/uL (0.0-0.7); #Lymphocytes 0.5 thou/uL (1.20-3.40); #Monocytes 0.5 thou/uL (0.11-0.59); #Neutrophils 2.3 thou/uL (1.40-6.50); %Basophils 1.4 % (0.0-1.0); %Eosinophils 9.4 % (0.0-10.0); %Lymphocytes 13.5 % (21.0-51.0); %Monocytes 13.3 % (0.0-10.0); %Neutrophils 62.4 % (42.0-75.0); Hemoglobin 9.5 g/dL (12.0-16.0); Mean Corpuscular HGB CONC 33.7 g/dL (32.0-36.0); Mean Corpuscular Hemoglobin 30.9 pg (27.0-31.0); Mean Corpuscular Volume 91.6 fL (78.0-98.0); Mean Platelet Volume 11.2 fL (7.4-10.4); Platelet Count 57 thou/uL (130-400); RBC Distribution Width 13.3 % (11.5-14.5); Red Blood Cell (RBC) Count 3.08 mill/uL (4.20-5.40); White Blood Cell (WBC) Count 3.6 thou/uL (4.8-10.8)
[2021-02-04 10:59] LABS: INR-International Normal Ratio 1.3; Prothrombin Time 16.8 sec (12.0-14.7)
[2021-02-04 11:11] LABS: ALT (SGPT) 13 U/L (8-55); AST (SGOT) 23 U/L (5-34); Albumin 3.3 g/dL (3.5-5.0); Alkaline Phosphatase 84 U/L (40-110); Anion Gap 12 mmol/L (10-20); BUN (Urea Nitrogen) 27 mg/dL (9.8-20.1); Bilirubin, Total 1.2 mg/dL (0.2-1.2); Calc. Creatinine Clearance 43 mL/min (70-130); Calcium 8.6 mg/dL (7.8-10.44); Carbon Dioxide 22 mmol/L (22-29); Chloride 109 mmol/L (98-107); Globulin 2.4 g/dL (2.4-3.5); Glucose 120 mg/dL (70-105); Protein, Total 5.7 g/dL (6.0-8.3); Sodium 139 mmol/L (136-145)
[2021-02-04 11:34] VITALS: BP 92/70; TEMP 98.4
[2021-02-04 12:02] LABS: RBC Count-Automated (BF) 10 /cu.mm; WBC/Nucleated-Auto (BF) 40 uL
[2021-02-04 12:18] LABS: BF Color Yellow; Body Fluid Source Ascites Body Fluid; Clarity Hazy (Clear); Tube # EDTA
[2021-02-04 12:20] LABS: Cell Count Non Hematic 63 %; Lymphocytes 37 %
== END 2021-02-04 11:15 | disposition home or self-care (01) ==
LOC: ULT 09:58
PROVIDERS: ATTEND Internal Medicine Gastroenterology
PROC: BW40ZZZ Ultrasonography of Abdomen (ICD-10-PCS; principal; 2021-02-04)
PROC: 0W9G3ZZ Drainage of Peritoneal Cavity, Percutaneous Approach (ICD-10-PCS; principal; 2021-02-04)
DX: K74.60 Unspecified cirrhosis of liver (principal); R18.8 Other ascites; K72.90 Hepatic failure, unspecified without coma; D62 Acute posthemorrhagic anemia; I12.9 Hypertensive chronic kidney disease with stage 1 through stage 4 chronic kidney disease, or unspecified chronic kidney disease; E11.22 Type 2 diabetes mellitus with diabetic chronic kidney disease; N18.9 Chronic kidney disease, unspecified; D63.1 Anemia in chronic kidney disease; G89.29 Other chronic pain; M54.9 Dorsalgia, unspecified; M19.90 Unspecified osteoarthritis, unspecified site; J44.9 Chronic obstructive pulmonary disease, unspecified; Z79.4 Long term (current) use of insulin; Z79.899 Other long term (current) drug therapy; Z87.891 Personal history of nicotine dependence; Z88.0 Allergy status to penicillin; Z88.2 Allergy status to sulfonamides; Z88.5 Allergy status to narcotic agent; Z88.8 Allergy status to other drugs, medicaments and biological substances; Z91.018 Allergy to other foods
CPT/HCPCS: 49083; 80053; 85025; 85060; 85610; 87070; 87205; 89051; 96523; 99211; G0463; J1642; P9047

== ENCOUNTER 2021-02-11 09:49 | Day surgery (SDC) | payer OTHER ==
[2021-02-07 15:08] VITALS: BMI 26.6
[2021-02-11] MEDS ORDERED: Sodium Chloride 0.9% 20 ML ONE (09:58)
[2021-02-11] MEDS ORDERED: Sodium Bicarbonate 2.5 MEQ/5 ML VIAL ONE (09:58)
[2021-02-11] MEDS ORDERED: Albumin 25% 200 ML ONE (09:58)
[2021-02-11] MEDS ORDERED: Lidocaine 1% PF 5 ML VIAL ONE (09:58)
[2021-02-11 11:23] VITALS: BP 106/62; TEMP 97.9
[2021-02-11 12:12] LABS: RBC Count-Automated (BF) 418 /cu.mm; WBC/Nucleated-Auto (BF) 30 uL
[2021-02-11 12:19] LABS: Body Fluid Source Ascites Body Fluid
[2021-02-11 12:20] LABS: BF Color Yellow; Clarity Hazy (Clear); Tube # EDTA
[2021-02-11 12:31] LABS: Cell Count Non Hematic 73 %; Lymphocytes 27 %
== END 2021-02-11 11:05 | disposition home or self-care (01) ==
LOC: ULT 09:49
PROVIDERS: ATTEND Internal Medicine Gastroenterology
PROC: 0W9G3ZZ Drainage of Peritoneal Cavity, Percutaneous Approach (ICD-10-PCS; principal; 2021-02-11)
PROC: BW40ZZZ Ultrasonography of Abdomen (ICD-10-PCS; principal; 2021-02-11)
DX: K74.60 Unspecified cirrhosis of liver (principal); R18.8 Other ascites; I12.9 Hypertensive chronic kidney disease with stage 1 through stage 4 chronic kidney disease, or unspecified chronic kidney disease; E11.22 Type 2 diabetes mellitus with diabetic chronic kidney disease; N18.9 Chronic kidney disease, unspecified; D63.1 Anemia in chronic kidney disease; J44.9 Chronic obstructive pulmonary disease, unspecified; F17.200 Nicotine dependence, unspecified, uncomplicated; Z79.4 Long term (current) use of insulin; Z79.899 Other long term (current) drug therapy; Z88.2 Allergy status to sulfonamides; Z88.5 Allergy status to narcotic agent; Z88.8 Allergy status to other drugs, medicaments and biological substances; Z91.018 Allergy to other foods
CPT/HCPCS: 49083; 85060; 87070; 87205; 89051; 96523; 99211; G0463; J1642; P9047

== ENCOUNTER 2021-02-18 10:06 | Day surgery (SDC) | payer OTHER ==
[2021-02-18] MEDS ORDERED: Sodium Bicarbonate 2.5 MEQ/5 ML VIAL ONE (10:09)
[2021-02-18] MEDS ORDERED: Lidocaine 1% PF 5 ML VIAL ONE (10:09)
[2021-02-18] MEDS ORDERED: Albumin 25% 200 ML ONE (10:09)
[2021-02-18] MEDS ORDERED: Sodium Chloride 0.9% 20 ML ONE (10:37)
[2021-02-18 11:06] LABS: INR-International Normal Ratio 1.4; Prothrombin Time 16.7 sec (12.0-14.7)
[2021-02-18 11:11] LABS: ALT (SGPT) 12 U/L (8-55); AST (SGOT) 24 U/L (5-34); Albumin 3.1 g/dL (3.5-5.0); Alkaline Phosphatase 80 U/L (40-110); Anion Gap 11 mmol/L (10-20); BUN (Urea Nitrogen) 23 mg/dL (9.8-20.1); Bilirubin, Total 1.4 mg/dL (0.2-1.2); Calc. Creatinine Clearance 0 mL/min (70-130); Calcium 8.4 mg/dL (7.8-10.44); Carbon Dioxide 21 mmol/L (22-29); Chloride 111 mmol/L (98-107); Globulin 2.5 g/dL (2.4-3.5); Glucose 133 mg/dL (70-105); Potassium 3.4 mmol/L (3.5-5.1); Protein, Total 5.6 g/dL (6.0-8.3); Sodium 140 mmol/L (136-145)
[2021-02-18 11:27] LABS: #Eosinphils 0.3 thou/uL (0.0-0.7); #Lymphocytes 0.5 thou/uL (1.20-3.40); #Monocytes 0.5 thou/uL (0.11-0.59); #Neutrophils 2.2 thou/uL (1.40-6.50); %Eosinophils 9.4 % (0.0-10.0); %Lymphocytes 14.7 % (21.0-51.0); %Monocytes 12.8 % (0.0-10.0); %Neutrophils 62.1 % (42.0-75.0); Hemoglobin 9.6 g/dL (12.0-16.0); Mean Corpuscular HGB CONC 33.2 g/dL (32.0-36.0); Mean Corpuscular Volume 90.3 fL (78.0-98.0); Mean Platelet Volume 6.7 fL (7.4-10.4); Platelet Count 51 thou/uL (130-400); RBC Distribution Width 13.3 % (11.5-14.5); Red Blood Cell (RBC) Count 3.19 mill/uL (4.20-5.40); White Blood Cell (WBC) Count 3.5 thou/uL (4.8-10.8)
[2021-02-18 11:56] VITALS: BP 115/65; TEMP 98
[2021-02-18 12:08] LABS: RBC Count-Automated (BF) 133 /cu.mm; WBC/Nucleated-Auto (BF) 20 uL
[2021-02-18 12:09] LABS: BF Color White; Body Fluid Source Ascites Body Fluid; Clarity Hazy (Clear); Tube # EDTA
[2021-02-18 12:41] LABS: Eosinophils 1 %; Lymphocytes 28 %
[2021-02-18 12:42] LABS: BF Segmented Neutrophils 1 %; Cell Count Non Hematic 70 %
== END 2021-02-18 11:20 | disposition home or self-care (01) ==
LOC: ULT 10:06
PROVIDERS: ATTEND Internal Medicine Gastroenterology
PROC: 0W9G3ZZ Drainage of Peritoneal Cavity, Percutaneous Approach (ICD-10-PCS; principal; 2021-02-18)
DX: K74.60 Unspecified cirrhosis of liver (principal); R18.8 Other ascites; K72.90 Hepatic failure, unspecified without coma; J44.9 Chronic obstructive pulmonary disease, unspecified; I12.9 Hypertensive chronic kidney disease with stage 1 through stage 4 chronic kidney disease, or unspecified chronic kidney disease; E11.22 Type 2 diabetes mellitus with diabetic chronic kidney disease; N18.9 Chronic kidney disease, unspecified; D63.1 Anemia in chronic kidney disease; G89.29 Other chronic pain; M54.9 Dorsalgia, unspecified; Z79.4 Long term (current) use of insulin; Z79.899 Other long term (current) drug therapy; Z87.891 Personal history of nicotine dependence; Z88.2 Allergy status to sulfonamides; Z88.5 Allergy status to narcotic agent; Z88.8 Allergy status to other drugs, medicaments and biological substances; Z91.018 Allergy to other foods
CPT/HCPCS: 49083; 80053; 85025; 85060; 85610; 87070; 87205; 89051; 96523; 99211; G0463; J1642; P9047

== ENCOUNTER 2021-02-25 09:57 | Day surgery (SDC) | payer OTHER ==
[2021-02-20 12:07] VITALS: BMI 26.6
[2021-02-25] MEDS ORDERED: Sodium Bicarbonate 2.5 MEQ/5 ML VIAL ONE (10:15)
[2021-02-25] MEDS ORDERED: Lidocaine 1% PF 5 ML VIAL ONE (10:15)
[2021-02-25] MEDS ORDERED: Sodium Chloride 0.9% 20 ML ONE (10:15)
[2021-02-25] MEDS ORDERED: Albumin 25% 200 ML ONE (10:15)
[2021-02-25 12:22] VITALS: BP 108/52; TEMP 98
[2021-02-25 13:40] LABS: BF Color Yellow; BF RBC Count - Manual 60 /cu.mm; BF WBC/Nonhematics Ct.-Manual 39 /cu.mm; Body Fluid Source Paracentesis Fluid; Clarity Hazy (Clear); Tube # EDTA
[2021-02-25 13:59] LABS: BF Segmented Neutrophils 1 %; Cell Count Non Hematic 77 %; Eosinophils 1 %; Lymphocytes 21 %
== END 2021-02-25 11:15 | disposition home or self-care (01) ==
LOC: ULT 09:57
PROVIDERS: ATTEND Internal Medicine Gastroenterology
DX: K74.60 Unspecified cirrhosis of liver (principal); R18.8 Other ascites; K72.90 Hepatic failure, unspecified without coma; J44.9 Chronic obstructive pulmonary disease, unspecified; I12.9 Hypertensive chronic kidney disease with stage 1 through stage 4 chronic kidney disease, or unspecified chronic kidney disease; E11.22 Type 2 diabetes mellitus with diabetic chronic kidney disease; N18.9 Chronic kidney disease, unspecified; D63.1 Anemia in chronic kidney disease; F17.200 Nicotine dependence, unspecified, uncomplicated; G89.29 Other chronic pain; M54.9 Dorsalgia, unspecified; Z79.4 Long term (current) use of insulin; Z79.51 Long term (current) use of inhaled steroids; Z79.899 Other long term (current) drug therapy; Z88.2 Allergy status to sulfonamides; Z88.5 Allergy status to narcotic agent; Z88.8 Allergy status to other drugs, medicaments and biological substances; Z91.018 Allergy to other foods
CPT/HCPCS: 49083; 85060; 87070; 87205; 89051; 96523; 99211; G0463; J1642; P9047

== ENCOUNTER 2021-03-04 09:42 | Day surgery (SDC) | payer OTHER ==
[2021-02-27 15:18] VITALS: BMI 26.6
[2021-03-04 12:09] VITALS: BP 106/53; TEMP 97.9
[2021-03-04 12:21] LABS: INR-International Normal Ratio 1.6; Prothrombin Time 18.8 sec (12.0-14.7)
[2021-03-04 13:13] LABS: RBC Count-Automated (BF) 86 /cu.mm; WBC/Nucleated-Auto (BF) 43 uL
[2021-03-04 13:17] LABS: BF Color Yellow; Body Fluid Source Ascites Body Fluid; Clarity Hazy (Clear); Tube # EDTA
[2021-03-04 14:54] LABS: BF Segmented Neutrophils 1 %; Cell Count Non Hematic 64 %; Lymphocytes 35 %
== END 2021-03-04 11:40 | disposition home or self-care (01) ==
LOC: ULT 09:42
PROVIDERS: ATTEND Internal Medicine Gastroenterology
PROC: 0W9G3ZX Drainage of Peritoneal Cavity, Percutaneous Approach, Diagnostic (ICD-10-PCS; principal; 2021-03-04)
DX: K74.60 Unspecified cirrhosis of liver (principal); R18.8 Other ascites; K72.90 Hepatic failure, unspecified without coma; I12.9 Hypertensive chronic kidney disease with stage 1 through stage 4 chronic kidney disease, or unspecified chronic kidney disease; E11.22 Type 2 diabetes mellitus with diabetic chronic kidney disease; N18.9 Chronic kidney disease, unspecified; D63.1 Anemia in chronic kidney disease; J44.9 Chronic obstructive pulmonary disease, unspecified; M19.90 Unspecified osteoarthritis, unspecified site; G89.29 Other chronic pain; M54.9 Dorsalgia, unspecified; Z79.4 Long term (current) use of insulin; Z79.899 Other long term (current) drug therapy; Z87.891 Personal history of nicotine dependence; Z88.2 Allergy status to sulfonamides; Z88.5 Allergy status to narcotic agent; Z88.8 Allergy status to other drugs, medicaments and biological substances; Z91.018 Allergy to other foods; Z91.048 Other nonmedicinal substance allergy status
CPT/HCPCS: 49083; 85060; 87070; 87205; 89051; 96523; 99211; G0463; J1642; P9047

== ENCOUNTER 2021-03-11 10:06 | Day surgery (SDC) | payer OTHER ==
[2021-03-11] MEDS ORDERED: Lidocaine 1% PF 5 ML VIAL ONE (10:53)
[2021-03-11] MEDS ORDERED: Albumin 25% 200 ML ONE (10:53)
[2021-03-11] MEDS ORDERED: Sodium Chloride 0.9% 20 ML ONE (10:53)
[2021-03-11] MEDS ORDERED: Sodium Bicarbonate 2.5 MEQ/5 ML VIAL ONE (10:53)
[2021-03-11 11:46] LABS: #Eosinphils 0.4 thou/uL (0.0-0.7); #Lymphocytes 0.5 thou/uL (1.20-3.40); #Monocytes 0.6 thou/uL (0.11-0.59); #Neutrophils 2.7 thou/uL (1.40-6.50); %Basophils 0.9 % (0.0-1.0); %Eosinophils 9.2 % (0.0-10.0); %Lymphocytes 12.1 % (21.0-51.0); %Monocytes 14.1 % (0.0-10.0); %Neutrophils 63.6 % (42.0-75.0); Hemoglobin 9.7 g/dL (12.0-16.0); Mean Corpuscular HGB CONC 32.5 g/dL (32.0-36.0); Mean Corpuscular Hemoglobin 29.2 pg (27.0-31.0); Mean Corpuscular Volume 89.9 fL (78.0-98.0); Mean Platelet Volume 7.6 fL (7.4-10.4); Platelet Count 59 thou/uL (130-400); RBC Distribution Width 13.4 % (11.5-14.5); Red Blood Cell (RBC) Count 3.33 mill/uL (4.20-5.40); White Blood Cell (WBC) Count 4.2 thou/uL (4.8-10.8)
[2021-03-11 11:48] LABS: ALT (SGPT) 16 U/L (8-55); AST (SGOT) 26 U/L (5-34); Albumin 3.1 g/dL (3.5-5.0); Alkaline Phosphatase 102 U/L (40-110); Anion Gap 10 mmol/L (10-20); BUN (Urea Nitrogen) 25 mg/dL (9.8-20.1); Calc. Creatinine Clearance 0 mL/min (70-130); Calcium 8.5 mg/dL (7.8-10.44); Carbon Dioxide 21 mmol/L (22-29); Chloride 112 mmol/L (98-107); Globulin 2.6 g/dL (2.4-3.5); Glucose 149 mg/dL (70-105); Potassium 3.6 mmol/L (3.5-5.1); Protein, Total 5.7 g/dL (6.0-8.3); Sodium 139 mmol/L (136-145)
[2021-03-11 11:59] LABS: INR-International Normal Ratio 1.4; Prothrombin Time 16.8 sec (12.0-14.7)
[2021-03-11 13:01] VITALS: BMI 26.6
[2021-03-11 13:02] VITALS: BP 100/60; TEMP 98.2
[2021-03-11 13:24] LABS: RBC Count-Automated (BF) 280 /cu.mm; WBC/Nucleated-Auto (BF) 30 uL
[2021-03-11 13:38] LABS: Body Fluid Source Ascites Body Fluid; Clarity Cloudy/Turbid (Clear); Tube # EDTA
[2021-03-11 13:47] LABS: BF Segmented Neutrophils 1 %; Cell Count Non Hematic 68 %; Eosinophils 2 %; Lymphocytes 29 %
== END 2021-03-11 12:15 | disposition home or self-care (01) ==
LOC: ULT 10:06
PROVIDERS: ATTEND Internal Medicine Gastroenterology
PROC: 0W9G3ZX Drainage of Peritoneal Cavity, Percutaneous Approach, Diagnostic (ICD-10-PCS; principal; 2021-03-11)
DX: K74.60 Unspecified cirrhosis of liver (principal); R18.8 Other ascites; I12.9 Hypertensive chronic kidney disease with stage 1 through stage 4 chronic kidney disease, or unspecified chronic kidney disease; E11.22 Type 2 diabetes mellitus with diabetic chronic kidney disease; N18.9 Chronic kidney disease, unspecified; D63.1 Anemia in chronic kidney disease; J44.9 Chronic obstructive pulmonary disease, unspecified; G89.29 Other chronic pain; M54.9 Dorsalgia, unspecified; M19.90 Unspecified osteoarthritis, unspecified site; F17.200 Nicotine dependence, unspecified, uncomplicated; Z88.0 Allergy status to penicillin; Z88.2 Allergy status to sulfonamides; Z88.5 Allergy status to narcotic agent; Z88.6 Allergy status to analgesic agent; Z88.8 Allergy status to other drugs, medicaments and biological substances; Z91.018 Allergy to other foods; Z79.4 Long term (current) use of insulin; Z79.51 Long term (current) use of inhaled steroids; Z79.899 Other long term (current) drug therapy
CPT/HCPCS: 49083; 80053; 85025; 85060; 85610; 87070; 87205; 89051; 96523; 99211; G0463; J1642; P9047

== ENCOUNTER 2021-04-08 09:56 | Day surgery (SDC) | payer OTHER ==
[2021-04-07 14:05] VITALS: BMI 26.6
[2021-04-08] MEDS ORDERED: Sodium Chloride 0.9% 20 ML ONE ×2 (10:36→11:38)
[2021-04-08] MEDS ORDERED: Lidocaine 1% PF 5 ML VIAL ONE (10:36)
[2021-04-08] MEDS ORDERED: Albumin 25% 200 ML ONE (10:36)
[2021-04-08] MEDS ORDERED: Sodium Bicarbonate 2.5 MEQ/5 ML VIAL ONE (10:36)
[2021-04-08 11:32] LABS: INR-International Normal Ratio 1.4; Prothrombin Time 17.6 sec (12.0-14.7)
[2021-04-08 11:39] LABS: ALT (SGPT) 14 U/L (8-55); AST (SGOT) 24 U/L (5-34); Albumin 2.9 g/dL (3.5-5.0); Alkaline Phosphatase 104 U/L (40-110); Anion Gap 7 mmol/L (10-20); BUN (Urea Nitrogen) 20 mg/dL (9.8-20.1); Bilirubin, Total 1.6 mg/dL (0.2-1.2); Calc. Creatinine Clearance 60 mL/min (70-130); Calcium 8.3 mg/dL (7.8-10.44); Carbon Dioxide 24 mmol/L (22-29); Chloride 111 mmol/L (98-107); Globulin 2.3 g/dL (2.4-3.5); Glucose 116 mg/dL (70-105); Potassium 3.4 mmol/L (3.5-5.1); Protein, Total 5.2 g/dL (6.0-8.3); Sodium 139 mmol/L (136-145)
[2021-04-08 12:05] LABS: Hemoglobin 9.4 g/dL (12.0-16.0); Mean Corpuscular HGB CONC 33.1 g/dL (32.0-36.0); Mean Corpuscular Hemoglobin 29.6 pg (27.0-31.0); Mean Corpuscular Volume 89.3 fL (78.0-98.0); Mean Platelet Volume 13.3 fL (7.4-10.4); Platelet Count 54 thou/uL (130-400); RBC Distribution Width 13.7 % (11.5-14.5); Red Blood Cell (RBC) Count 3.19 mill/uL (4.20-5.40); White Blood Cell (WBC) Count 3.7 thou/uL (4.8-10.8)
[2021-04-08 12:06] LABS: Band 2 % (5-11); Eosinophils 11 % (0-10); Lymphocytes 14 % (21-51); MDiff Complete? YES; Monocytes 16 % (0-10); Neutrophil 56 % (42-75); Platelet Morphology Comment Appears Decreased; RBC Morphology Normal
[2021-04-08 13:19] LABS: RBC Count-Automated (BF) 29 /cu.mm; WBC/Nucleated-Auto (BF) 59 uL
[2021-04-08 13:36] LABS: BF Color Yellow; Body Fluid Source Ascites Body Fluid; Clarity Hazy (Clear); Tube # EDTA
[2021-04-08 13:41] LABS: BF Segmented Neutrophils 1 %; Cell Count Non Hematic 71 %; Eosinophils 2 %; Lymphocytes 26 %
== END 2021-04-08 11:47 | disposition home or self-care (01) ==
LOC: ULT 09:56
PROVIDERS: ATTEND Internal Medicine Gastroenterology
PROC: 0W9G3ZX Drainage of Peritoneal Cavity, Percutaneous Approach, Diagnostic (ICD-10-PCS; principal; 2021-04-08)
DX: K74.60 Unspecified cirrhosis of liver (principal); R18.8 Other ascites; J44.9 Chronic obstructive pulmonary disease, unspecified; M19.90 Unspecified osteoarthritis, unspecified site; I12.9 Hypertensive chronic kidney disease with stage 1 through stage 4 chronic kidney disease, or unspecified chronic kidney disease; E11.22 Type 2 diabetes mellitus with diabetic chronic kidney disease; N18.9 Chronic kidney disease, unspecified; D63.1 Anemia in chronic kidney disease; G89.29 Other chronic pain; M54.9 Dorsalgia, unspecified; Z88.2 Allergy status to sulfonamides; Z88.5 Allergy status to narcotic agent; Z88.8 Allergy status to other drugs, medicaments and biological substances; Z91.018 Allergy to other foods; Z91.048 Other nonmedicinal substance allergy status
CPT/HCPCS: 49083; 80053; 85025; 85060; 85610; 87070; 87205; 89051; 96523; 99211; G0463; J1642; P9047

== ENCOUNTER 2021-04-15 09:47 | Day surgery (SDC) | payer OTHER ==
[2021-04-14 15:42] VITALS: BMI 26.6
[2021-04-15] MEDS ORDERED: Sodium Chloride 0.9% 20 ML ONE (10:38)
[2021-04-15] MEDS ORDERED: Sodium Bicarbonate 2.5 MEQ/5 ML VIAL ONE (10:38)
[2021-04-15] MEDS ORDERED: Albumin 25% 200 ML ONE (10:38)
[2021-04-15] MEDS ORDERED: Lidocaine 1% PF 5 ML VIAL ONE (10:38)
[2021-04-15 12:01] VITALS: BP 109/61
[2021-04-15 12:34] LABS: RBC Count-Automated (BF) 118 /cu.mm; WBC/Nucleated-Auto (BF) 10 uL
[2021-04-15 12:46] LABS: BF Color Colorless; Body Fluid Source Ascites Body Fluid; Clarity Hazy (Clear); Tube # EDTA
[2021-04-15 12:48] LABS: BF Segmented Neutrophils 0 %; Cell Count Non Hematic 54 %; Lymphocytes 46 %
== END 2021-04-15 11:45 | disposition home or self-care (01) ==
LOC: ULT 09:47
PROVIDERS: ATTEND Internal Medicine Gastroenterology
PROC: 0W9G3ZX Drainage of Peritoneal Cavity, Percutaneous Approach, Diagnostic (ICD-10-PCS; principal; 2021-04-15)
DX: K74.60 Unspecified cirrhosis of liver (principal); R18.8 Other ascites; Z88.2 Allergy status to sulfonamides; Z88.5 Allergy status to narcotic agent; Z88.8 Allergy status to other drugs, medicaments and biological substances; Z91.018 Allergy to other foods; Z91.048 Other nonmedicinal substance allergy status
CPT/HCPCS: 49083; 85060; 87070; 87205; 89051; J1642; P9047

== ENCOUNTER 2021-05-06 09:50 | Day surgery (SDC) | payer OTHER ==
[2021-05-06] MEDS ORDERED: Sodium Bicarbonate 2.5 MEQ/5 ML VIAL ONE (09:58)
[2021-05-06] MEDS ORDERED: Lidocaine 1% PF 5 ML VIAL ONE (09:58)
[2021-05-06] MEDS ORDERED: Albumin 25% 200 ML ONE (09:58)
[2021-05-06] MEDS ORDERED: Sodium Chloride 0.9% 20 ML ONE (10:05)
[2021-05-06 12:32] VITALS: BP 105/63; TEMP 98.4; BMI 26.6
[2021-05-06 12:39] LABS: ALT (SGPT) 12 U/L (8-55); AST (SGOT) 23 U/L (5-34); Albumin 3.1 g/dL (3.5-5.0); Alkaline Phosphatase 102 U/L (40-110); Anion Gap 10 mmol/L (10-20); BUN (Urea Nitrogen) 24 mg/dL (9.8-20.1); Bilirubin, Total 1.6 mg/dL (0.2-1.2); Calc. Creatinine Clearance 56 mL/min (70-130); Calcium 8.3 mg/dL (7.8-10.44); Carbon Dioxide 21 mmol/L (22-29); Chloride 111 mmol/L (98-107); Globulin 2.6 g/dL (2.4-3.5); Glucose 164 mg/dL (70-105); Potassium 3.5 mmol/L (3.5-5.1); Protein, Total 5.7 g/dL (6.0-8.3); Sodium 138 mmol/L (136-145)
[2021-05-06 12:41] LABS: INR-International Normal Ratio 1.3; Prothrombin Time 16.2 sec (12.0-14.7)
[2021-05-06 12:42] LABS: PTT 45.4 sec (22.9-36.1)
[2021-05-06 12:52] LABS: RBC Count-Automated (BF) 227 /cu.mm; WBC/Nucleated-Auto (BF) 138 uL
[2021-05-06 14:00] LABS: BF Color Yellow; Body Fluid Source Ascites Body Fluid; Clarity Hazy (Clear); Tube # EDTA
[2021-05-06 14:10] LABS: BF Segmented Neutrophils 28 %; Cell Count Non Hematic 42 %; Lymphocytes 30 %
== END 2021-05-06 12:00 | disposition home or self-care (01) ==
LOC: ULT 09:50
PROVIDERS: ATTEND Internal Medicine Gastroenterology
PROC: 0W9G3ZZ Drainage of Peritoneal Cavity, Percutaneous Approach (ICD-10-PCS; principal; 2021-05-06)
DX: K74.60 Unspecified cirrhosis of liver (principal); R18.8 Other ascites; K72.90 Hepatic failure, unspecified without coma; I12.9 Hypertensive chronic kidney disease with stage 1 through stage 4 chronic kidney disease, or unspecified chronic kidney disease; E11.22 Type 2 diabetes mellitus with diabetic chronic kidney disease; N18.9 Chronic kidney disease, unspecified; D63.1 Anemia in chronic kidney disease; J44.9 Chronic obstructive pulmonary disease, unspecified; M19.90 Unspecified osteoarthritis, unspecified site; G89.29 Other chronic pain; M54.9 Dorsalgia, unspecified; Z87.891 Personal history of nicotine dependence; Z79.4 Long term (current) use of insulin; Z79.899 Other long term (current) drug therapy; Z88.2 Allergy status to sulfonamides; Z88.5 Allergy status to narcotic agent; Z88.8 Allergy status to other drugs, medicaments and biological substances; Z91.018 Allergy to other foods; Z91.048 Other nonmedicinal substance allergy status
CPT/HCPCS: 49083; 80053; 85060; 85610; 85730; 87070; 87205; 89051; J1642; P9047

== ENCOUNTER 2021-05-13 10:05 | Day surgery (SDC) | payer OTHER ==
[2021-05-12 16:31] VITALS: BMI 26.6
[2021-05-13] MEDS ORDERED: Sodium Bicarbonate 2.5 MEQ/5 ML VIAL ONE (10:35)
[2021-05-13] MEDS ORDERED: Lidocaine 1% PF 5 ML VIAL ONE (10:35)
[2021-05-13 12:37] LABS: RBC Count-Automated (BF) 40 /cu.mm; WBC/Nucleated-Auto (BF) 10 uL
[2021-05-13 12:52] VITALS: BP 121/68; TEMP 98
[2021-05-13 13:17] LABS: Body Fluid Source Paracentesis Fluid; Tube # EDTA
[2021-05-13 13:18] LABS: BF Color Yellow; Clarity Hazy (Clear)
[2021-05-13 13:20] LABS: BF Segmented Neutrophils 2 %; Cell Count Non Hematic 50 %; Eosinophils 3 %
[2021-05-13 13:21] LABS: Lymphocytes 45 %
== END 2021-05-13 11:51 | disposition home or self-care (01) ==
LOC: ULT 10:05
PROVIDERS: ATTEND Internal Medicine Gastroenterology
PROC: 0W9G3ZX Drainage of Peritoneal Cavity, Percutaneous Approach, Diagnostic (ICD-10-PCS; principal; 2021-05-13)
DX: K74.60 Unspecified cirrhosis of liver (principal); R18.8 Other ascites; K72.91 Hepatic failure, unspecified with coma; I12.9 Hypertensive chronic kidney disease with stage 1 through stage 4 chronic kidney disease, or unspecified chronic kidney disease; E11.22 Type 2 diabetes mellitus with diabetic chronic kidney disease; N18.9 Chronic kidney disease, unspecified; D63.1 Anemia in chronic kidney disease; J44.9 Chronic obstructive pulmonary disease, unspecified; M19.90 Unspecified osteoarthritis, unspecified site; G89.29 Other chronic pain; M54.9 Dorsalgia, unspecified; Z88.2 Allergy status to sulfonamides; Z88.5 Allergy status to narcotic agent; Z88.8 Allergy status to other drugs, medicaments and biological substances; Z91.018 Allergy to other foods; Z91.048 Other nonmedicinal substance allergy status
CPT/HCPCS: 49083; 85060; 87070; 87205; 89051; 96523; 99211; G0463; J1642

== ENCOUNTER 2021-05-20 09:55 | Day surgery (SDC) | payer OTHER ==
[2021-05-19 14:13] VITALS: BMI 26.6
[~2021-05-20 09:55] MED LIST changes: -Lidocaine 1% PF 5 ML VIAL ONE; -Sodium Bicarbonate 2.5 MEQ/5 ML VIAL ONE; -Sodium Chloride 0.9% 10 ML ONE
[2021-05-20] MEDS ORDERED: Sodium Bicarbonate 2.5 MEQ/5 ML VIAL ONE (10:12)
[2021-05-20] MEDS ORDERED: Albumin 25% 200 ML ONE (10:12)
[2021-05-20] MEDS ORDERED: Lidocaine 1% PF 5 ML VIAL ONE (10:12)
[2021-05-20] MEDS ORDERED: Sodium Chloride 0.9% 10 ML ONE (11:02)
[2021-05-20 11:21] VITALS: BP 103/52
[2021-05-20 11:26] LABS: Hemoglobin 9.3 g/dL (12.0-16.0); Mean Corpuscular HGB CONC 31.9 g/dL (32.0-36.0); Mean Corpuscular Hemoglobin 28.9 pg (27.0-31.0); Mean Corpuscular Volume 90.4 fL (78.0-98.0); RBC Distribution Width 14.4 % (11.5-14.5); Red Blood Cell (RBC) Count 3.22 mill/uL (4.20-5.40); White Blood Cell (WBC) Count 3.4 thou/uL (4.8-10.8)
[2021-05-20] MEDS ORDERED: Albumin 25% 25 GM/100 ML BOT IVPB SCH (11:30)
[2021-05-20 11:33] LABS: INR-International Normal Ratio 1.4; Prothrombin Time 17.5 sec (12.0-14.7)
[2021-05-20 11:41] LABS: #Eosinphils 0.3 thou/uL (0.0-0.7); #Lymphocytes 0.6 thou/uL (1.20-3.40); #Monocytes 0.5 thou/uL (0.11-0.59); #Neutrophils 1.9 thou/uL (1.40-6.50); %Basophils 1.3 % (0.0-1.0); %Eosinophils 9.8 % (0.0-10.0); %Lymphocytes 18.3 % (21.0-51.0); %Monocytes 14.8 % (0.0-10.0); %Neutrophils 55.9 % (42.0-75.0); Mean Platelet Volume 7.7 fL (7.4-10.4); Platelet Count 60 thou/uL (130-400); Platelet Morphology Comment Appears Decreased
[2021-05-20 11:45] LABS: ALT (SGPT) 13 U/L (8-55); AST (SGOT) 24 U/L (5-34); Albumin 2.8 g/dL (3.5-5.0); Alkaline Phosphatase 98 U/L (40-110); Anion Gap 11 mmol/L (10-20); BUN (Urea Nitrogen) 17 mg/dL (9.8-20.1); Bilirubin, Total 1.8 mg/dL (0.2-1.2); Calc. Creatinine Clearance 60 mL/min (70-130); Calcium 8.2 mg/dL (7.8-10.44); Carbon Dioxide 21 mmol/L (22-29); Chloride 111 mmol/L (98-107); Globulin 2.4 g/dL (2.4-3.5); Glucose 210 mg/dL (70-105); Potassium 4.1 mmol/L (3.5-5.1); Protein, Total 5.2 g/dL (6.0-8.3); Sodium 139 mmol/L (136-145)
[2021-05-20 12:25] LABS: RBC Count-Automated (BF) 69 /cu.mm; WBC/Nucleated-Auto (BF) 40 uL
[2021-05-20 12:29] LABS: Clarity Hazy (Clear); Tube # EDTA
[2021-05-20 12:30] LABS: BF Color Yellow; Body Fluid Source Ascites Body Fluid
[2021-05-20 12:33] LABS: Cell Count Non Hematic 67 %; Lymphocytes 33 %
== END 2021-05-20 11:30 | disposition home or self-care (01) ==
LOC: ULT 09:55
PROVIDERS: ATTEND Internal Medicine Gastroenterology
PROC: 0W9G3ZX Drainage of Peritoneal Cavity, Percutaneous Approach, Diagnostic (ICD-10-PCS; principal; 2021-05-20)
DX: R18.8 Other ascites (principal); Z88.2 Allergy status to sulfonamides; Z88.5 Allergy status to narcotic agent; Z88.8 Allergy status to other drugs, medicaments and biological substances; Z91.018 Allergy to other foods; Z91.048 Other nonmedicinal substance allergy status
CPT/HCPCS: 49083; 80053; 85025; 85060; 85610; 87070; 87205; 89051; 96523; 99211; G0463; J1642; P9047

== ENCOUNTER 2021-05-27 10:03 | Day surgery (SDC) | payer OTHER ==
[2021-05-27] MEDS ORDERED: Sodium Bicarbonate 2.5 MEQ/5 ML VIAL ONE (11:07)
[2021-05-27] MEDS ORDERED: Lidocaine 1% PF 5 ML VIAL ONE (11:07)
[2021-05-27] MEDS ORDERED: Albumin 25% 200 ML ONE (11:07)
[2021-05-27] MEDS ORDERED: Sodium Chloride 0.9% 10 ML ONE (11:08)
[2021-05-27] MEDS ORDERED: Albumin 25% 25 GM/100 ML BOT IVPB SCH (11:45)
[2021-05-27 11:56] VITALS: BP 101/51
== END 2021-05-27 12:00 | disposition home or self-care (01) ==
LOC: ULT 10:03
PROVIDERS: ATTEND Internal Medicine Gastroenterology
PROC: 0W9G3ZZ Drainage of Peritoneal Cavity, Percutaneous Approach (ICD-10-PCS; principal; 2021-05-27)
DX: K74.60 Unspecified cirrhosis of liver (principal); R18.8 Other ascites; K72.90 Hepatic failure, unspecified without coma; Z87.891 Personal history of nicotine dependence; Z79.4 Long term (current) use of insulin; Z79.899 Other long term (current) drug therapy; Z88.2 Allergy status to sulfonamides; Z88.5 Allergy status to narcotic agent; Z88.8 Allergy status to other drugs, medicaments and biological substances; Z91.018 Allergy to other foods; Z91.048 Other nonmedicinal substance allergy status
CPT/HCPCS: 49083; 96523; 99211; G0463; J1642; P9047

== ENCOUNTER 2021-06-03 10:20 | Day surgery (SDC) | payer OTHER ==
[2021-05-30 14:35] VITALS: BMI 25.8
[2021-06-03] MEDS ORDERED: Albumin 25% 200 ML ONE (10:36)
[2021-06-03] MEDS ORDERED: Sodium Bicarbonate 2.5 MEQ/5 ML VIAL ONE (10:36)
[2021-06-03] MEDS ORDERED: Lidocaine 1% PF 5 ML VIAL ONE (10:36)
[2021-06-03] MEDS ORDERED: Sodium Chloride 0.9% 10 ML ONE (11:20)
[2021-06-03 11:40] LABS: #Basophils 0.1 thou/uL (0.0-0.2); #Eosinphils 0.4 thou/uL (0.0-0.7); #Lymphocytes 0.6 thou/uL (1.20-3.40); #Monocytes 0.6 thou/uL (0.11-0.59); #Neutrophils 2.9 thou/uL (1.40-6.50); %Basophils 1.4 % (0.0-1.0); %Eosinophils 9.2 % (0.0-10.0); %Monocytes 12.2 % (0.0-10.0); %Neutrophils 64.3 % (42.0-75.0); Hemoglobin 10.5 g/dL (12.0-16.0); Mean Corpuscular Hemoglobin 29.6 pg (27.0-31.0); Mean Corpuscular Volume 89.7 fL (78.0-98.0); Mean Platelet Volume 10.8 fL (7.4-10.4); Platelet Count 79 thou/uL (130-400); RBC Distribution Width 14.8 % (11.5-14.5); Red Blood Cell (RBC) Count 3.53 mill/uL (4.20-5.40); White Blood Cell (WBC) Count 4.5 thou/uL (4.8-10.8)
[2021-06-03 11:43] LABS: INR-International Normal Ratio 1.3; Prothrombin Time 16.3 sec (12.0-14.7)
[2021-06-03 11:53] LABS: ALT (SGPT) 14 U/L (8-55); AST (SGOT) 27 U/L (5-34); Albumin 3.3 g/dL (3.5-5.0); Alkaline Phosphatase 99 U/L (40-110); Anion Gap 13 mmol/L (10-20); BUN (Urea Nitrogen) 25 mg/dL (9.8-20.1); Bilirubin, Total 1.6 mg/dL (0.2-1.2); Calc. Creatinine Clearance 47 mL/min (70-130); Calcium 8.7 mg/dL (7.8-10.44); Carbon Dioxide 23 mmol/L (22-29); Chloride 109 mmol/L (98-107); Globulin 2.7 g/dL (2.4-3.5); Glucose 123 mg/dL (70-105); Potassium 3.9 mmol/L (3.5-5.1); Sodium 141 mmol/L (136-145)
[2021-06-03 12:14] VITALS: BP 114/66
[2021-06-03 18:05] LABS: RBC Count-Automated (BF) 109 /cu.mm; WBC/Nucleated-Auto (BF) 99 uL
[2021-06-03 18:20] LABS: BF Color Yellow; Body Fluid Source Ascites Body Fluid; Clarity Hazy (Clear); Tube # EDTA
[2021-06-03 18:26] LABS: BF Segmented Neutrophils 2 %; Cell Count Non Hematic 62 %; Eosinophils 3 %; Lymphocytes 33 %
== END 2021-06-03 12:20 | disposition home or self-care (01) ==
LOC: ULT 10:20
PROVIDERS: ATTEND Internal Medicine Gastroenterology
PROC: 0W9G3ZX Drainage of Peritoneal Cavity, Percutaneous Approach, Diagnostic (ICD-10-PCS; principal; 2021-06-03)
DX: K74.60 Unspecified cirrhosis of liver (principal); R18.8 Other ascites; K72.90 Hepatic failure, unspecified without coma; Z87.891 Personal history of nicotine dependence; Z79.4 Long term (current) use of insulin; Z79.899 Other long term (current) drug therapy; Z88.2 Allergy status to sulfonamides; Z88.5 Allergy status to narcotic agent; Z88.8 Allergy status to other drugs, medicaments and biological substances; Z91.018 Allergy to other foods; Z91.048 Other nonmedicinal substance allergy status
CPT/HCPCS: 49083; 80053; 85025; 85060; 85610; 87070; 87205; 89051; 96523; 99211; G0463; J1642; P9047

== ENCOUNTER → 2021-06-10 | Day surgery (SDC) | payer OTHER ==
[2021-06-09 08:59] VITALS: BMI 26.6
[~2021-06-10] MED LIST changes: +Lidocaine 1% PF 5 ML VIAL ONE; +Sodium Bicarbonate 2.5 MEQ/5 ML VIAL ONE
[2021-06-10 13:07] LABS: RBC Count-Automated (BF) 198 /cu.mm; WBC/Nucleated-Auto (BF) 49 uL
[2021-06-10 13:12] LABS: BF Color White; Body Fluid Source Ascites Body Fluid; Clarity Hazy (Clear); Tube # EDTA
[2021-06-10 13:19] LABS: BF Segmented Neutrophils 3 %; Cell Count Non Hematic 69 %; Eosinophils 2 %; Lymphocytes 26 %
== END ==
LOC: ULT 09:49
PROVIDERS: ATTEND Internal Medicine Gastroenterology
PROC: 0W9G3ZX Drainage of Peritoneal Cavity, Percutaneous Approach, Diagnostic (ICD-10-PCS; principal; 2021-06-10)
DX: K74.60 Unspecified cirrhosis of liver (principal); R18.8 Other ascites; K72.91 Hepatic failure, unspecified with coma; Z79.4 Long term (current) use of insulin; Z79.899 Other long term (current) drug therapy; Z88.2 Allergy status to sulfonamides; Z88.5 Allergy status to narcotic agent; Z88.8 Allergy status to other drugs, medicaments and biological substances; Z91.018 Allergy to other foods; Z91.048 Other nonmedicinal substance allergy status
CPT/HCPCS: 49083; 85060; 87070; 87205; 89051; P9047

== ENCOUNTER → 2021-06-17 | Day surgery (SDC) | payer OTHER ==
[~2021-06-17] MED LIST changes: -Sodium Bicarbonate 2.5 MEQ/5 ML VIAL ONE; +Sodium Chloride 0.9% 10 ML ONE; +Sodium Chloride 0.9% 20 ML ONE
[2021-06-17 13:57] LABS: RBC Count-Automated (BF) 300 /cu.mm; WBC/Nucleated-Auto (BF) 45 uL
[2021-06-17 14:26] LABS: BF Color Yellow; Body Fluid Source Ascites Body Fluid; Clarity Hazy (Clear); Tube # EDTA
[2021-06-17 14:29] LABS: BF Segmented Neutrophils 2 %; Cell Count Non Hematic 74 %; Lymphocytes 22 %
[2021-06-17 14:42] LABS: Follow-up Hematology Comp? YES; Follow-up Result - Hematology REPORT FAXED
== END ==
LOC: ULT 10:04
PROVIDERS: ATTEND Internal Medicine Gastroenterology
PROC: 0W9G3ZZ Drainage of Peritoneal Cavity, Percutaneous Approach (ICD-10-PCS; principal; 2021-06-17)
DX: K74.60 Unspecified cirrhosis of liver (principal); R18.8 Other ascites; Z88.2 Allergy status to sulfonamides; Z88.5 Allergy status to narcotic agent; Z88.8 Allergy status to other drugs, medicaments and biological substances; Z91.018 Allergy to other foods; Z91.048 Other nonmedicinal substance allergy status; Z45.2 Encounter for adjustment and management of vascular access device; I87.8 Other specified disorders of veins
CPT/HCPCS: 49083; 85060; 87070; 87205; 89051; 99211; G0463; J1642; P9047

== ENCOUNTER 2021-06-18 10:10 | Outpatient (CLI) | payer OTHER ==
[2021-06-18] MEDS ORDERED: Magnevist 469MG/ML 20 ML VIAL ONE (10:43)
== END 2021-06-18 10:11 | disposition home or self-care (01) ==
LOC: BICMRI 10:10
PROVIDERS: ATTEND Internal Medicine Gastroenterology
DX: K72.90 Hepatic failure, unspecified without coma (principal); K74.69 Other cirrhosis of liver; R18.8 Other ascites; K76.6 Portal hypertension
CPT/HCPCS: 74183; 82565; A9579

== ENCOUNTER → 2021-06-24 | Day surgery (SDC) | payer OTHER ==
[2021-06-23 15:39] VITALS: BMI 26.6
[~2021-06-24] MED LIST changes: +Albumin 25% 25 GM/100 ML BOT IVPB SCH; +Sodium Bicarbonate 2.5 MEQ/5 ML VIAL ONE; -Sodium Chloride 0.9% 20 ML ONE
[2021-06-24 11:28] LABS: #Eosinphils 0.5 thou/uL (0.0-0.7); #Lymphocytes 0.6 thou/uL (1.20-3.40); #Monocytes 0.4 thou/uL (0.11-0.59); #Neutrophils 2.9 thou/uL (1.40-6.50); %Basophils 0.8 % (0.0-1.0); %Lymphocytes 13.9 % (21.0-51.0); %Monocytes 9.8 % (0.0-10.0); %Neutrophils 64.5 % (42.0-75.0); Hemoglobin 10.1 g/dL (12.0-16.0); Mean Corpuscular HGB CONC 33.5 g/dL (32.0-36.0); Mean Corpuscular Hemoglobin 30.4 pg (27.0-31.0); Mean Corpuscular Volume 90.7 fL (78.0-98.0); Mean Platelet Volume 10.6 fL (7.4-10.4); Platelet Count 77 thou/uL (130-400); RBC Distribution Width 14.6 % (11.5-14.5); Red Blood Cell (RBC) Count 3.33 mill/uL (4.20-5.40); White Blood Cell (WBC) Count 4.5 thou/uL (4.8-10.8)
[2021-06-24 11:33] LABS: INR-International Normal Ratio 1.3
[2021-06-24 11:48] LABS: ALT (SGPT) 15 U/L (8-55); AST (SGOT) 25 U/L (5-34); Albumin 3.1 g/dL (3.5-5.0); Alkaline Phosphatase 93 U/L (40-110); Anion Gap 12 mmol/L (10-20); BUN (Urea Nitrogen) 22 mg/dL (9.8-20.1); Bilirubin, Total 1.6 mg/dL (0.2-1.2); Calc. Creatinine Clearance 51 mL/min (70-130); Calcium 8.6 mg/dL (7.8-10.44); Carbon Dioxide 22 mmol/L (22-29); Chloride 112 mmol/L (98-107); Globulin 2.6 g/dL (2.4-3.5); Glucose 266 mg/dL (70-105); Potassium 3.6 mmol/L (3.5-5.1); Protein, Total 5.7 g/dL (6.0-8.3); Sodium 142 mmol/L (136-145)
[2021-06-24 11:57] VITALS: BP 106/56
[2021-06-24 12:08] LABS: Follow-up Chemistry Comp? YES; Follow-up Hematology Comp? YES; Follow-up Result - Chemistry REPORT FAXED; Follow-up Result - Hematology REPORT FAXED
[2021-06-24 12:39] LABS: RBC Count-Automated (BF) 91 /cu.mm; WBC/Nucleated-Auto (BF) 54 uL
[2021-06-24 12:41] LABS: BF Color White; Body Fluid Source Ascites Body Fluid; Clarity Hazy (Clear); Tube # EDTA
[2021-06-24 13:13] LABS: BF Segmented Neutrophils 1 %; Cell Count Non Hematic 78 %; Lymphocytes 21 %
== END ==
LOC: ULT 09:38
PROVIDERS: ATTEND Internal Medicine Gastroenterology
PROC: 0W9G3ZX Drainage of Peritoneal Cavity, Percutaneous Approach, Diagnostic (ICD-10-PCS; principal; 2021-06-24)
DX: K74.60 Unspecified cirrhosis of liver (principal); R18.8 Other ascites; Z88.2 Allergy status to sulfonamides; Z88.5 Allergy status to narcotic agent; Z88.8 Allergy status to other drugs, medicaments and biological substances; Z91.018 Allergy to other foods; Z91.048 Other nonmedicinal substance allergy status
CPT/HCPCS: 49083; 80053; 85025; 85060; 85610; 87070; 87205; 89051; J1642; P9047

== ENCOUNTER → 2021-07-01 | Day surgery (SDC) | payer OTHER ==
[2021-06-27 14:54] VITALS: BMI 26.6
[~2021-07-01] MED LIST changes: -Albumin 25% 25 GM/100 ML BOT IVPB SCH
== END ==
LOC: ULT 09:55
PROVIDERS: ATTEND Internal Medicine Gastroenterology
PROC: 0W9G3ZZ Drainage of Peritoneal Cavity, Percutaneous Approach (ICD-10-PCS; principal; 2021-07-01)
DX: K74.60 Unspecified cirrhosis of liver (principal); R18.8 Other ascites; K72.91 Hepatic failure, unspecified with coma; Z79.4 Long term (current) use of insulin; Z79.899 Other long term (current) drug therapy; Z88.0 Allergy status to penicillin; Z88.2 Allergy status to sulfonamides; Z88.5 Allergy status to narcotic agent; Z88.8 Allergy status to other drugs, medicaments and biological substances; Z91.018 Allergy to other foods; Z91.048 Other nonmedicinal substance allergy status
CPT/HCPCS: 49083; 99211; G0463; J1642; P9047

== ENCOUNTER 2021-07-08 10:07 | Day surgery (SDC) | payer OTHER ==
[2021-07-07 11:00] VITALS: BMI 26.6
[2021-07-08] MEDS ORDERED: Lidocaine 1% PF 5 ML VIAL ONE (10:22)
[2021-07-08] MEDS ORDERED: Sodium Bicarbonate 2.5 MEQ/5 ML VIAL ONE (10:22)
[2021-07-08] MEDS ORDERED: Albumin 25% 200 ML ONE (10:22)
[2021-07-08] MEDS ORDERED: Sodium Chloride 0.9% 20 ML ONE (10:34)
[2021-07-08 11:25] LABS: #Basophils 0.1 thou/uL (0.0-0.2); #Eosinphils 0.7 thou/uL (0.0-0.7); #Lymphocytes 0.5 thou/uL (1.20-3.40); #Monocytes 0.6 thou/uL (0.11-0.59); #Neutrophils 4.5 thou/uL (1.40-6.50); %Basophils 0.9 % (0.0-1.0); %Eosinophils 10.4 % (0.0-10.0); %Lymphocytes 8.1 % (21.0-51.0); %Monocytes 9.4 % (0.0-10.0); %Neutrophils 71.2 % (42.0-75.0); Mean Corpuscular HGB CONC 32.5 g/dL (32.0-36.0); Mean Corpuscular Hemoglobin 30.3 pg (27.0-31.0); Mean Corpuscular Volume 93.1 fL (78.0-98.0); Mean Platelet Volume 9.8 fL (7.4-10.4); Platelet Count 83 thou/uL (130-400); RBC Distribution Width 14.6 % (11.5-14.5); Red Blood Cell (RBC) Count 3.31 mill/uL (4.20-5.40); White Blood Cell (WBC) Count 6.3 thou/uL (4.8-10.8)
[2021-07-08 11:33] LABS: INR-International Normal Ratio 1.3; Prothrombin Time 16.7 sec (12.0-14.7)
[2021-07-08 11:40] LABS: ALT (SGPT) 20 U/L (8-55); AST (SGOT) 28 U/L (5-34); Albumin 3.2 g/dL (3.5-5.0); Alkaline Phosphatase 108 U/L (40-110); Anion Gap 12 mmol/L (10-20); BUN (Urea Nitrogen) 30 mg/dL (9.8-20.1); Bilirubin, Total 1.8 mg/dL (0.2-1.2); Calc. Creatinine Clearance 43 mL/min (70-130); Calcium 8.6 mg/dL (7.8-10.44); Carbon Dioxide 21 mmol/L (22-29); Chloride 110 mmol/L (98-107); Globulin 2.6 g/dL (2.4-3.5); Glucose 167 mg/dL (70-105); Potassium 4.2 mmol/L (3.5-5.1); Protein, Total 5.8 g/dL (6.0-8.3); Sodium 139 mmol/L (136-145)
[2021-07-08 13:20] VITALS: BP 109/63; TEMP 98.1
[2021-07-08 14:04] LABS: Body Fluid Source Ascites Body Fluid; RBC Count-Automated (BF) 55 /cu.mm; WBC/Nucleated-Auto (BF) 46 /cu.mm
[2021-07-08 14:05] LABS: BF Color Yellow; Clarity Hazy (Clear); Tube # EDTA
[2021-07-08 14:11] LABS: BF Segmented Neutrophils 3 %; Cell Count Non Hematic 89 %; Eosinophils 3 %; Lymphocytes 5 %
== END 2021-07-08 11:55 | disposition home or self-care (01) ==
LOC: ULT 10:07
PROVIDERS: ATTEND Internal Medicine Gastroenterology
PROC: 0W9G3ZX Drainage of Peritoneal Cavity, Percutaneous Approach, Diagnostic (ICD-10-PCS; principal; 2021-07-08)
DX: K74.60 Unspecified cirrhosis of liver (principal); R18.8 Other ascites; K72.91 Hepatic failure, unspecified with coma; Z79.4 Long term (current) use of insulin; Z79.899 Other long term (current) drug therapy; Z88.2 Allergy status to sulfonamides; Z88.5 Allergy status to narcotic agent; Z88.8 Allergy status to other drugs, medicaments and biological substances; Z91.018 Allergy to other foods; Z91.048 Other nonmedicinal substance allergy status; Z45.2 Encounter for adjustment and management of vascular access device; I87.8 Other specified disorders of veins
CPT/HCPCS: 49083; 80053; 85025; 85060; 85610; 87070; 87205; 89051; 99211; G0463; J1642; P9047

== ENCOUNTER 2021-07-15 11:12 | Day surgery (SDC) | payer OTHER ==
[2021-07-14 09:26] VITALS: BMI 26.6
[2021-07-15] MEDS ORDERED: Sodium Bicarbonate 2.5 MEQ/5 ML VIAL ONE (11:21)
[2021-07-15] MEDS ORDERED: Lidocaine 1% PF 5 ML VIAL ONE (11:21)
[2021-07-15] MEDS ORDERED: Albumin 25% 200 ML ONE (11:25)
[2021-07-15] MEDS ORDERED: Sodium Chloride 0.9% 20 ML ONE (11:34)
[2021-07-15 12:50] VITALS: BP 138/72; TEMP 97.9
[2021-07-16 01:26] LABS: RBC Count-Automated (BF) 265 /cu.mm; WBC/Nucleated-Auto (BF) 27 /cu.mm
[2021-07-16 01:39] LABS: BF Color White; Body Fluid Source Ascites Body Fluid; Clarity Hazy (Clear); Tube # EDTA
[2021-07-16 01:40] LABS: BF Segmented Neutrophils 1 %; Cell Count Non Hematic 14 %; Eosinophils 1 %; Lymphocytes 84 %
== END 2021-07-15 12:40 | disposition home or self-care (01) ==
LOC: ULT 11:12
PROVIDERS: ATTEND Internal Medicine Gastroenterology
PROC: 0W9G3ZX Drainage of Peritoneal Cavity, Percutaneous Approach, Diagnostic (ICD-10-PCS; principal; 2021-07-15)
DX: K74.60 Unspecified cirrhosis of liver (principal); R18.8 Other ascites; K72.91 Hepatic failure, unspecified with coma; Z79.4 Long term (current) use of insulin; Z79.899 Other long term (current) drug therapy; Z88.2 Allergy status to sulfonamides; Z88.5 Allergy status to narcotic agent; Z88.8 Allergy status to other drugs, medicaments and biological substances; Z91.018 Allergy to other foods; Z91.048 Other nonmedicinal substance allergy status
CPT/HCPCS: 49083; 85060; 87070; 87205; 89051; 96523; 99211; G0463; J1642; P9047

== ENCOUNTER 2021-07-22 10:14 | Day surgery (SDC) | payer OTHER ==
[2021-07-21 09:27] VITALS: BMI 24.9
[2021-07-22] MEDS ORDERED: Sodium Bicarbonate 2.5 MEQ/5 ML VIAL ONE (10:19)
[2021-07-22] MEDS ORDERED: Lidocaine 1% PF 5 ML VIAL ONE (10:19)
[2021-07-22] MEDS ORDERED: Sodium Chloride 0.9% 10 ML ONE (10:19)
[2021-07-22 12:10] LABS: #Basophils 0.1 thou/uL (0.0-0.2); #Eosinphils 0.6 thou/uL (0.0-0.7); #Lymphocytes 0.7 thou/uL (1.20-3.40); #Monocytes 0.6 thou/uL (0.11-0.59); %Basophils 1.2 % (0.0-1.0); %Eosinophils 12.8 % (0.0-10.0); %Lymphocytes 14.4 % (21.0-51.0); %Monocytes 12.5 % (0.0-10.0); %Neutrophils 59.2 % (42.0-75.0); Hemoglobin 9.9 g/dL (12.0-16.0); Mean Corpuscular HGB CONC 33.2 g/dL (32.0-36.0); Mean Corpuscular Hemoglobin 31.2 pg (27.0-31.0); Mean Platelet Volume 9.8 fL (7.4-10.4); Platelet Count 77 thou/uL (130-400); RBC Distribution Width 14.3 % (11.5-14.5); Red Blood Cell (RBC) Count 3.16 mill/uL (4.20-5.40)
[2021-07-22 12:16] LABS: INR-International Normal Ratio 1.3; Prothrombin Time 16.2 sec (12.0-14.7)
[2021-07-22 12:26] LABS: ALT (SGPT) 22 U/L (8-55); AST (SGOT) 27 U/L (5-34); Albumin 3.2 g/dL (3.5-5.0); Alkaline Phosphatase 102 U/L (40-110); Anion Gap 12 mmol/L (10-20); BUN (Urea Nitrogen) 21 mg/dL (9.8-20.1); Bilirubin, Total 1.6 mg/dL (0.2-1.2); Calc. Creatinine Clearance 45 mL/min (70-130); Calcium 8.6 mg/dL (7.8-10.44); Carbon Dioxide 20 mmol/L (22-29); Chloride 111 mmol/L (98-107); Globulin 2.6 g/dL (2.4-3.5); Glucose 169 mg/dL (70-105); Potassium 3.9 mmol/L (3.5-5.1); Protein, Total 5.8 g/dL (6.0-8.3); Sodium 139 mmol/L (136-145)
[2021-07-22 12:44] LABS: RBC Count-Automated (BF) 46 /cu.mm; WBC/Nucleated-Auto (BF) 36 /cu.mm
[2021-07-22 13:05] LABS: Body Fluid Source Paracentesis Fluid; Clarity Cloudy/Turbid (Clear); Tube # EDTA
[2021-07-22 13:06] LABS: BF Color Yellow
[2021-07-22 13:24] LABS: Cell Count Non Hematic 63 %; Lymphocytes 37 %
[2021-07-22 15:02] VITALS: BP 127/70; TEMP 98.6
== END 2021-07-22 11:45 | disposition home or self-care (01) ==
LOC: ULT 10:14
PROVIDERS: ATTEND Internal Medicine Gastroenterology
PROC: 0W9G3ZX Drainage of Peritoneal Cavity, Percutaneous Approach, Diagnostic (ICD-10-PCS; principal; 2021-07-22)
DX: K74.60 Unspecified cirrhosis of liver (principal); R18.8 Other ascites; K72.91 Hepatic failure, unspecified with coma; Z87.891 Personal history of nicotine dependence; Z79.4 Long term (current) use of insulin; Z79.899 Other long term (current) drug therapy; Z88.2 Allergy status to sulfonamides; Z88.5 Allergy status to narcotic agent; Z88.8 Allergy status to other drugs, medicaments and biological substances; Z91.018 Allergy to other foods; Z91.048 Other nonmedicinal substance allergy status
CPT/HCPCS: 49083; 80053; 85025; 85060; 85610; 87070; 87205; 89051; 96523; 99211; G0463; J1642

== ENCOUNTER 2021-07-29 09:43 | Day surgery (SDC) | payer OTHER ==
[2021-07-29] MEDS ORDERED: Albumin 25% 200 ML ONE (10:21)
[2021-07-29] MEDS ORDERED: Sodium Bicarbonate 2.5 MEQ/5 ML VIAL ONE (10:21)
[2021-07-29] MEDS ORDERED: Lidocaine 1% PF 5 ML VIAL ONE (10:21)
[2021-07-29 12:15] VITALS: BP 115/55
[2021-07-29] MEDS ORDERED: Albumin 25% 25 GM/100 ML BOT FS SCH (13:30)
[2021-07-29 14:25] LABS: RBC Count-Automated (BF) 128 /cu.mm; WBC/Nucleated-Auto (BF) 109 /cu.mm
[2021-07-29 14:40] LABS: BF Color Yellow; Body Fluid Source Ascites Body Fluid; Clarity Hazy (Clear); Tube # EDTA
[2021-07-29 14:48] LABS: BF Segmented Neutrophils 51 %; Cell Count Non Hematic 40 %; Lymphocytes 7 %
== END 2021-07-29 11:45 | disposition home or self-care (01) ==
LOC: ULT 09:43
PROVIDERS: ATTEND Internal Medicine Gastroenterology
PROC: 0W9G3ZX Drainage of Peritoneal Cavity, Percutaneous Approach, Diagnostic (ICD-10-PCS; principal; 2021-07-29)
DX: K74.60 Unspecified cirrhosis of liver (principal); R18.8 Other ascites; K72.90 Hepatic failure, unspecified without coma; Z88.2 Allergy status to sulfonamides; Z88.5 Allergy status to narcotic agent; Z88.8 Allergy status to other drugs, medicaments and biological substances; Z91.018 Allergy to other foods; Z91.048 Other nonmedicinal substance allergy status
CPT/HCPCS: 49083; 85060; 87070; 87077; 87205; 89051; 96523; 99211; G0463; J1642; P9047

== ENCOUNTER 2021-07-30 12:16 | Inpatient (IN) | payer OTHER ==
[2021-07-30] MEDS ORDERED: cefTRIAXone\\ROCEPHIN 1 GM VIAL ONE (14:46)
[2021-07-30 15:17] LABS: #Eosinphils 0.4 thou/uL (0.0-0.7); #Lymphocytes 0.5 thou/uL (1.20-3.40); #Monocytes 0.6 thou/uL (0.11-0.59); %Lymphocytes 10.4 % (21.0-51.0); %Monocytes 13.5 % (0.0-10.0); %Neutrophils 66.1 % (42.0-75.0); Mean Corpuscular Hemoglobin 31.8 pg (27.0-31.0); Mean Corpuscular Volume 96.4 fL (78.0-98.0); Platelet Count 51 thou/uL (130-400); RBC Distribution Width 14.3 % (11.5-14.5); Red Blood Cell (RBC) Count 2.52 mill/uL (4.20-5.40); White Blood Cell (WBC) Count 4.5 thou/uL (4.8-10.8)
[2021-07-30 15:52] LABS: Albumin 3.2 g/dL (3.5-5.0)
[2021-07-30 15:54] LABS: Calcium 8.6 mg/dL (7.8-10.44); Chloride 114 mmol/L (98-107); Potassium 4.4 mmol/L (3.5-5.1); Sodium 143 mmol/L (136-145)
[2021-07-30 15:55] LABS: Globulin 1.9 g/dL (2.4-3.5); Glucose 208 mg/dL (70-105); Protein, Total 5.1 g/dL (6.0-8.3)
[2021-07-30 15:56] LABS: Anion Gap 12 mmol/L (10-20); Carbon Dioxide 21 mmol/L (22-29)
[2021-07-30 15:57] LABS: Bilirubin, Total 1.2 mg/dL (0.2-1.2)
[2021-07-30 15:58] LABS: Alkaline Phosphatase 94 U/L (40-110); Calc. Creatinine Clearance 0 mL/min (70-130)
[2021-07-30 16:10] LABS: ALT (SGPT) 18 U/L (8-55); AST (SGOT) 19 U/L (5-34); BUN (Urea Nitrogen) 31 mg/dL (9.8-20.1); Lipase 43 U/L (8-78)
[2021-07-30 16:18] LABS: Bilirubin Negative (Negative); Blood, Urine Negative (Negative); Clarity Turbid (Clear); Glucose, Urine (Dipstick) Normal (Negative); Ketone, Urine Negative (Negative); Leukocyte 250 Leu/uL (Negative); Nitrite Negative (Negative); Protein, Urine (Dipstick) Negative (Neg-Trace); RBC/HPF None Seen HPF (0-3); Specific Gravity, Urine 1.012 (1.002-1.036); Urobilinogen Normal mg/dL (Less than 2)
[2021-07-30 16:19] LABS: Bacteria/HPF 1+ HPF (None Seen)
[2021-07-30] MEDS ORDERED: Lidocaine Viscous Sol 2% 15 ml UD Cup ONE (17:02)
[2021-07-30] MEDS ORDERED: Milk Of Magnesia 30 ML UDCUP ONE (17:02)
[2021-07-30] MEDS ORDERED: Mag-Al 1200 mg/1200 mg/30 ML UDCUP ONE (17:03)
[2021-07-30 18:43] LABS: SARS-CoV-2 NAA Rapid Test Not Detected (NotDetected)
[2021-07-30] MEDS ORDERED: Ondansetron PF 4 MG/2 ML Vial IVP PRN (19:30)
[2021-07-30] MEDS ORDERED: Ondansetron ODT 4 MG TAB SL PRN (19:30)
[2021-07-30] MEDS ORDERED: Sodium Chloride 0.9% 1,000 ML IV SCH (19:30)
[2021-07-30] MEDS ORDERED: Dextrose 5% in Water 1,000 ML IV PRN (20:14)
[2021-07-30] MEDS ORDERED: Dextrose 50% Abboject 50 ML SYRINGE SLOW IVP PRN (20:14)
[2021-07-30] MEDS ORDERED: Albuterol 200 PUFF (6.7GM INHALER) INH PRN (20:57)
[2021-07-30] MEDS ORDERED: Rifaximin 550 MG TAB PO SCH (21:00)
[2021-07-30] MEDS: Cyclobenzaprine 10 MG TAB PO SCH (21:08)
[2021-07-30] MEDS: busPIRone HCl 10 MG TAB PO SCH (21:09)
[2021-07-30] MEDS: Loratadine 10 MG TAB PO SCH (21:09)
[2021-07-30] MEDS: Cholecalciferol 1,000 UNITS (25 MCG) TAB PO SCH (21:09)
[2021-07-30] MEDS: traMADol HCl 50 MG TAB PO PRN (21:09)
[2021-07-30] MEDS: Furosemide 40 MG TAB PO SCH (21:10)
[2021-07-30] MEDS: Spironolactone 100 MG TAB PO SCH (21:35)
[2021-07-31 00:17] LABS: INR-International Normal Ratio 1.6; Prothrombin Time 19.4 sec (12.0-14.7)
[2021-07-31 00:19] LABS: PTT 43.3 sec (22.9-36.1)
[2021-07-31 03:57] LABS: Eosinophils 1 % (0-10); Hemoglobin 7.7 g/dL (12.0-16.0); Hypochromia SLIGHT = 6-15 cells (100X) (0-5/hpf); Lymphocytes 17 % (21-51); MDiff Complete? YES; Mean Corpuscular HGB CONC 31.5 g/dL (32.0-36.0); Mean Corpuscular Hemoglobin 30.7 pg (27.0-31.0); Mean Corpuscular Volume 97.4 fL (78.0-98.0); Mean Platelet Volume 10.1 fL (7.4-10.4); Monocytes 13 % (0-10); Neutrophil 69 % (42-75); Platelet Count 51 thou/uL (130-400); Platelet Morphology Comment Appears Decreased; RBC Distribution Width 14.1 % (11.5-14.5); White Blood Cell (WBC) Count 3.9 thou/uL (4.8-10.8)
[2021-07-31 03:57] LABS: ALT (SGPT) 15 U/L (8-55); AST (SGOT) 17 U/L (5-34); Albumin 2.9 g/dL (3.5-5.0); Alkaline Phosphatase 80 U/L (40-110); Anion Gap 10 mmol/L (10-20); BUN (Urea Nitrogen) 28 mg/dL (9.8-20.1); Calc. Creatinine Clearance 23 mL/min (70-130); Calcium 8.1 mg/dL (7.8-10.44); Carbon Dioxide 22 mmol/L (22-29); Chloride 113 mmol/L (98-107); Glucose 148 mg/dL (70-105); Potassium 4.1 mmol/L (3.5-5.1); Protein, Total 4.9 g/dL (6.0-8.3); Sodium 141 mmol/L (136-145)
[2021-07-31] MEDS ORDERED: HumaLOG 300 UNITS/3 ML VIAL SC SCH (08:00)
[2021-07-31] MEDS: Cholecalciferol 1,000 UNITS (25 MCG) TAB PO SCH ×2 (08:25→20:33)
[2021-07-31] MEDS: Cyanocobalamin (Vitamin B-12) 1,000 MCG TAB PO SCH (08:25)
[2021-07-31] MEDS: busPIRone HCl 10 MG TAB PO SCH ×2 (08:25→20:33)
[2021-07-31] MEDS: Folic Acid 1 MG TAB PO SCH (08:25)
[2021-07-31] MEDS: Midodrine HCl 5 MG TAB PO SCH ×3 (08:25→17:06)
[2021-07-31] MEDS: Cyclobenzaprine 10 MG TAB PO SCH ×2 (08:25→20:33)
[2021-07-31] MEDS: Ferrous Sulfate 325 MG TAB PO SCH ×3 (08:25→17:06)
[2021-07-31] MEDS: Spironolactone 100 MG TAB PO SCH (08:25)
[2021-07-31] MEDS: Furosemide 40 MG TAB PO SCH (08:25)
[2021-07-31] MEDS: Magnesium Oxide 250 MG TAB PO SCH (08:26)
[2021-07-31] MEDS: traMADol HCl 50 MG TAB PO PRN ×3 (08:36→20:33)
[2021-07-31] MEDS ORDERED: cefTRIAXone\\ROCEPHIN 1 GM in Sodium Chloride 0.9% 100 ML IVPB SCH (09:00)
[2021-07-31] MEDS ORDERED: FLU VACC QS2021-22(6MOS UP)/PF 60 MCG/0.5 ML SYRINGE IM ONE (09:00)
[2021-07-31] MEDS: Fluticasone Propionate Nasal Spray 16 gm Bottle NASAL SCH (09:06)
[2021-07-31] MEDS: Lantus 1000 UNITS/10 ML VIAL SC SCH (09:07)
[2021-07-31 10:20] VITALS: BMI 35.4
[2021-07-31] MEDS ORDERED: Bupropion 150 MG XL TAB PO SCH (11:00)
[2021-07-31] MEDS: HumaLOG 300 UNITS/3 ML VIAL SC PRN (12:42)
[2021-07-31] MEDS: HumaLOG 300 UNITS/3 ML VIAL SC SCH (17:06)
[2021-07-31] MEDS: Sodium Chloride 0.9% 1,000 ML IV SCH (19:45)
[2021-07-31] MEDS: Loratadine 10 MG TAB PO SCH (20:33)
[2021-07-31] MEDS: Albumin 25% 25 GM/100 ML BOT IVPB SCH (22:01)
[2021-08-01] MEDS: Melatonin 3 MG TAB PO PRN (00:12)
[2021-08-01 05:44] LABS: Anion Gap 11 mmol/L (10-20); BUN (Urea Nitrogen) 30 mg/dL (9.8-20.1); Calc. Creatinine Clearance 44 mL/min (70-130); Calcium 8.1 mg/dL (7.8-10.44); Carbon Dioxide 20 mmol/L (22-29); Chloride 114 mmol/L (98-107); Glucose 109 mg/dL (70-105); Potassium 3.9 mmol/L (3.5-5.1); Sodium 141 mmol/L (136-145)
[2021-08-01] MEDS: Sodium Chloride 0.9% 1,000 ML IV SCH ×2 (09:10→23:38)
[2021-08-01] MEDS: Magnesium Oxide 250 MG TAB PO SCH (09:11)
[2021-08-01] MEDS: Cyclobenzaprine 10 MG TAB PO SCH ×2 (09:12→21:05)
[2021-08-01] MEDS: Folic Acid 1 MG TAB PO SCH (09:12)
[2021-08-01] MEDS: Cyanocobalamin (Vitamin B-12) 1,000 MCG TAB PO SCH (09:12)
[2021-08-01] MEDS: busPIRone HCl 10 MG TAB PO SCH ×2 (09:12→21:05)
[2021-08-01] MEDS: Cholecalciferol 1,000 UNITS (25 MCG) TAB PO SCH ×2 (09:12→21:05)
[2021-08-01] MEDS: Bupropion 150 MG XL TAB PO SCH (09:12)
[2021-08-01] MEDS: Midodrine HCl 5 MG TAB PO SCH ×3 (09:12→16:32)
[2021-08-01] MEDS: Ferrous Sulfate 325 MG TAB PO SCH ×3 (09:12→16:32)
[2021-08-01] MEDS: HumaLOG 300 UNITS/3 ML VIAL SC SCH ×3 (09:13→16:33)
[2021-08-01] MEDS: Lantus 1000 UNITS/10 ML VIAL SC SCH (09:13)
[2021-08-01] MEDS: Fluticasone Propionate Nasal Spray 16 gm Bottle NASAL SCH (09:13)
[2021-08-01] MEDS: Albumin 25% 25 GM/100 ML BOT IVPB SCH ×3 (09:14→21:04)
[2021-08-01] MEDS: traMADol HCl 50 MG TAB PO PRN (16:32)
[2021-08-01] MEDS: Loratadine 10 MG TAB PO SCH (21:05)
[2021-08-02] MEDS: Folic Acid 1 MG TAB PO SCH (08:16)
[2021-08-02] MEDS: Cyanocobalamin (Vitamin B-12) 1,000 MCG TAB PO SCH (08:16)
[2021-08-02] MEDS: Magnesium Oxide 250 MG TAB PO SCH (08:16)
[2021-08-02] MEDS: Cyclobenzaprine 10 MG TAB PO SCH ×2 (08:16→20:04)
[2021-08-02] MEDS: Ferrous Sulfate 325 MG TAB PO SCH ×3 (08:16→16:27)
[2021-08-02] MEDS: busPIRone HCl 10 MG TAB PO SCH ×2 (08:16→20:05)
[2021-08-02] MEDS: Cholecalciferol 1,000 UNITS (25 MCG) TAB PO SCH ×2 (08:16→20:05)
[2021-08-02] MEDS: Midodrine HCl 5 MG TAB PO SCH ×3 (08:16→16:27)
[2021-08-02] MEDS: HumaLOG 300 UNITS/3 ML VIAL SC SCH ×3 (08:17→16:27)
[2021-08-02] MEDS: Fluticasone Propionate Nasal Spray 16 gm Bottle NASAL SCH (08:17)
[2021-08-02] MEDS: Lantus 1000 UNITS/10 ML VIAL SC SCH (08:18)
[2021-08-02] MEDS: Bupropion 150 MG XL TAB PO SCH (08:31)
[2021-08-02] MEDS: Sodium Chloride 0.9% 1,000 ML IV SCH ×2 (10:23→16:29)
[2021-08-02] MEDS ORDERED: Sodium Bicarbonate 2.5 MEQ/5 ML VIAL ONE (11:29)
[2021-08-02] MEDS ORDERED: Albumin 25% 200 ML ONE (11:29)
[2021-08-02] MEDS ORDERED: Lidocaine 1% PF 5 ML VIAL ONE (11:29)
[2021-08-02] MEDS: Albumin 25% 25 GM/100 ML BOT IVPB SCH (12:10)
[2021-08-02] MEDS: traMADol HCl 50 MG TAB PO PRN ×2 (13:43→20:04)
[2021-08-02 15:23] LABS: RBC Count-Automated (BF) 128 /cu.mm; WBC/Nucleated-Auto (BF) 9 /cu.mm
[2021-08-02 16:16] LABS: BF Color Colorless; Body Fluid Source Ascites Body Fluid; Clarity Hazy (Clear); Tube # EDTA
[2021-08-02 16:18] LABS: BF Segmented Neutrophils 12 %; Cell Count Non Hematic 68 %; Lymphocytes 20 %
[2021-08-02] MEDS: Loratadine 10 MG TAB PO SCH (20:04)
[2021-08-02] MEDS: Melatonin 3 MG TAB PO PRN (20:04)
[2021-08-03] MEDS: Sodium Chloride 0.9% 1,000 ML IV SCH ×3 (00:27→16:30)
[2021-08-03] MEDS: Albumin 25% 25 GM/100 ML BOT IVPB SCH (07:03)
[2021-08-03 08:10] LABS: Band 11 % (5-11); Eosinophils 2 % (0-10); Hemoglobin 6.1 g/dL (12.0-16.0); Lymphocytes 14 % (21-51); MDiff Complete? YES; Mean Corpuscular HGB CONC 32.6 g/dL (32.0-36.0); Mean Corpuscular Hemoglobin 31.6 pg (27.0-31.0); Mean Corpuscular Volume 97.1 fL (78.0-98.0); Mean Platelet Volume 10.4 fL (7.4-10.4); Monocytes 9 % (0-10); Neutrophil 64 % (42-75); Platelet Count 35 thou/uL (130-400); Platelet Morphology Comment Appears Decreased; RBC Distribution Width 13.7 % (11.5-14.5); Red Blood Cell (RBC) Count 1.93 mill/uL (4.20-5.40); White Blood Cell (WBC) Count 2.2 thou/uL (4.8-10.8)
[2021-08-03] MEDS: traMADol HCl 50 MG TAB PO PRN ×3 (08:11→20:12)
[2021-08-03] MEDS: Folic Acid 1 MG TAB PO SCH (08:12)
[2021-08-03] MEDS: Cyclobenzaprine 10 MG TAB PO SCH ×2 (08:12→20:12)
[2021-08-03] MEDS: Ferrous Sulfate 325 MG TAB PO SCH ×3 (08:12→16:29)
[2021-08-03] MEDS: Cholecalciferol 1,000 UNITS (25 MCG) TAB PO SCH ×2 (08:12→20:11)
[2021-08-03] MEDS: busPIRone HCl 10 MG TAB PO SCH ×2 (08:12→20:11)
[2021-08-03] MEDS: Bupropion 150 MG XL TAB PO SCH (08:12)
[2021-08-03] MEDS: Magnesium Oxide 250 MG TAB PO SCH (08:12)
[2021-08-03] MEDS: Cyanocobalamin (Vitamin B-12) 1,000 MCG TAB PO SCH (08:12)
[2021-08-03] MEDS: Midodrine HCl 5 MG TAB PO SCH ×3 (08:12→16:29)
[2021-08-03] MEDS: Fluticasone Propionate Nasal Spray 16 gm Bottle NASAL SCH (08:13)
[2021-08-03 08:20] LABS: Albumin 3.3 g/dL (3.5-5.0)
[2021-08-03 08:21] LABS: Chloride 114 mmol/L (98-107); Potassium 3.8 mmol/L (3.5-5.1); Sodium 139 mmol/L (136-145)
[2021-08-03 08:22] LABS: Calcium 8.3 mg/dL (7.8-10.44)
[2021-08-03 08:23] LABS: Globulin 1.6 g/dL (2.4-3.5); Glucose 81 mg/dL (70-105); Protein, Total 4.9 g/dL (6.0-8.3)
[2021-08-03 08:24] LABS: Anion Gap 12 mmol/L (10-20); Bilirubin, Total 1.6 mg/dL (0.2-1.2); Carbon Dioxide 17 mmol/L (22-29)
[2021-08-03 08:25] LABS: Alkaline Phosphatase 55 U/L (40-110)
[2021-08-03 08:26] LABS: Calc. Creatinine Clearance 61 mL/min (70-130)
[2021-08-03 08:27] LABS: BUN (Urea Nitrogen) 26 mg/dL (9.8-20.1)
[2021-08-03 08:28] LABS: ALT (SGPT) 11 U/L (8-55); AST (SGOT) 19 U/L (5-34)
[2021-08-03] MEDS ORDERED: Ciprofloxacin 500 MG TAB PO SCH (09:00)
[2021-08-03] MEDS: HumaLOG 300 UNITS/3 ML VIAL SC SCH ×3 (09:14→16:29)
[2021-08-03] MEDS: Lantus 1000 UNITS/10 ML VIAL SC SCH (09:14)
[2021-08-03] MEDS ORDERED: Lidocaine 1% w/Epinephrine 1:100K 20 ML VIAL ONE (09:48)
[2021-08-03] MEDS ORDERED: Bupivacaine 0.25% HCL 30 ML VIAL ONE (09:48)
[2021-08-03] MEDS ORDERED: Midazolam HCl 2 mg/2 ml Vial ONE (10:46)
[2021-08-03] MEDS ORDERED: Fentanyl 100 MCG/2 ML VIAL ONE (10:46)
[2021-08-03] MEDS ORDERED: PROPOFOL 200 MG/20 ML VIAL ONE (11:00)
[2021-08-03] MEDS: Furosemide 40 MG/4 ML VIAL SLOW IVP SCH ×3 (11:40→12:45)
[2021-08-03 16:35] LABS: Hemoglobin 7.9 g/dL (12.0-16.0)
[2021-08-03] MEDS: Melatonin 3 MG TAB PO PRN (20:11)
[2021-08-03] MEDS: Loratadine 10 MG TAB PO SCH (20:12)
[2021-08-03] MEDS: HumaLOG 300 UNITS/3 ML VIAL SC PRN (20:56)
[2021-08-04] MEDS: Sodium Chloride 0.9% 1,000 ML IV SCH (03:08)
[2021-08-04] MEDS: traMADol HCl 50 MG TAB PO PRN ×2 (04:01→12:58)
[2021-08-04 06:45] LABS: Hemoglobin 7.6 g/dL (12.0-16.0); Mean Corpuscular HGB CONC 33.5 g/dL (32.0-36.0); Mean Corpuscular Hemoglobin 31.5 pg (27.0-31.0); Mean Platelet Volume 10.4 fL (7.4-10.4); Platelet Count 46 thou/uL (130-400); Red Blood Cell (RBC) Count 2.41 mill/uL (4.20-5.40); White Blood Cell (WBC) Count 2.9 thou/uL (4.8-10.8)
[2021-08-04] MEDS: Ferrous Sulfate 325 MG TAB PO SCH ×2 (08:45→12:53)
[2021-08-04] MEDS: Bupropion 150 MG XL TAB PO SCH (08:46)
[2021-08-04] MEDS: Midodrine HCl 5 MG TAB PO SCH ×2 (08:46→12:53)
[2021-08-04] MEDS: busPIRone HCl 10 MG TAB PO SCH (08:46)
[2021-08-04] MEDS: Fluticasone Propionate Nasal Spray 16 gm Bottle NASAL SCH (08:47)
[2021-08-04] MEDS: Magnesium Oxide 250 MG TAB PO SCH (08:47)
[2021-08-04] MEDS: Folic Acid 1 MG TAB PO SCH (08:47)
[2021-08-04] MEDS: Cyclobenzaprine 10 MG TAB PO SCH (08:47)
[2021-08-04] MEDS: Cyanocobalamin (Vitamin B-12) 1,000 MCG TAB PO SCH (08:47)
[2021-08-04] MEDS: Cholecalciferol 1,000 UNITS (25 MCG) TAB PO SCH (08:48)
[2021-08-04] MEDS: HumaLOG 300 UNITS/3 ML VIAL SC SCH ×2 (08:56→12:53)
[2021-08-04 09:36] VITALS: BP 108/58; TEMP 98.1
[2021-08-04 10:43] LABS: Band 5 % (5-11); Eosinophils 8 % (0-10); Lymphocytes 17 % (21-51); MDiff Complete? YES; Monocytes 7 % (0-10); Neutrophil 63 % (42-75); Platelet Morphology Comment Appears Decreased; Polychromasia SLIGHT = 2-3 cells (100X) (0-2/hpf)
[2021-08-04] MEDS ORDERED: Fentanyl 100 MCG/2 ML VIAL ONE (11:30)
[2021-08-04] MEDS: Lantus 1000 UNITS/10 ML VIAL SC SCH (11:33)
== END 2021-08-04 13:36 | disposition home or self-care (01) | DRG 357 ==
LOC: ERS 12:16 → ERHOLD 16:33 → T4-A 18:53
PROVIDERS: ADMIT Family Medicine; ATTEND Family Medicine
PROC: 0W9G3ZZ Drainage of Peritoneal Cavity, Percutaneous Approach (ICD-10-PCS; 2021-08-02)
PROC: 0JH60WZ Insertion of Totally Implantable Vascular Access Device into Chest Subcutaneous Tissue and Fascia, Open Approach (ICD-10-PCS; principal; 2021-08-03)
PROC: 30233N1 Transfusion of Nonautologous Red Blood Cells into Peripheral Vein, Percutaneous Approach (ICD-10-PCS; 2021-08-03)
PROC: 02HV33Z Insertion of Infusion Device into Superior Vena Cava, Percutaneous Approach (ICD-10-PCS; 2021-08-03)
PROC: B5181ZA Fluoroscopy of Superior Vena Cava using Low Osmolar Contrast, Guidance (ICD-10-PCS; 2021-08-03)
PROC: 02PYX3Z Removal of Infusion Device from Great Vessel, External Approach (ICD-10-PCS; 2021-08-03)
DX: K65.2 Spontaneous bacterial peritonitis (principal); I85.10 Secondary esophageal varices without bleeding; D68.4 Acquired coagulation factor deficiency; Z20.822 Contact with and (suspected) exposure to COVID-19; K70.31 Alcoholic cirrhosis of liver with ascites; K21.9 Gastro-esophageal reflux disease without esophagitis; J45.909 Unspecified asthma, uncomplicated; M48.00 Spinal stenosis, site unspecified; F41.9 Anxiety disorder, unspecified; F17.210 Nicotine dependence, cigarettes, uncomplicated; E11.22 Type 2 diabetes mellitus with diabetic chronic kidney disease; I12.9 Hypertensive chronic kidney disease with stage 1 through stage 4 chronic kidney disease, or unspecified chronic kidney disease; D50.9 Iron deficiency anemia, unspecified; F32.A Depression, unspecified; Z90.49 Acquired absence of other specified parts of digestive tract; N18.30 Chronic kidney disease, stage 3 unspecified; B96.1 Klebsiella pneumoniae [K. pneumoniae] as the cause of diseases classified elsewhere; D69.6 Thrombocytopenia, unspecified; E66.9 Obesity, unspecified; Z88.5 Allergy status to narcotic agent; Z88.2 Allergy status to sulfonamides; Z88.8 Allergy status to other drugs, medicaments and biological substances; Z79.4 Long term (current) use of insulin; Z79.899 Other long term (current) drug therapy; Z90.710 Acquired absence of both cervix and uterus; Z68.35 Body mass index [BMI] 35.0-35.9, adult
CPT/HCPCS: 36415; 36416; 36430; 49083; 71045; 80048; 80053; 81003; 81015; 82042; 83605; 83690; 84484; 85007; 85025; 85027; 85060; 85610; 85730; 86850; 86900; 86901; 87070; 87086; 87205; 89051; 96365; C1788; J0696; J1642; J1815; J1940; J1956; J2250; J2704; J3010; J3490; J7050; P9016; P9047; S0020; U0002

== ENCOUNTER 2021-08-07 08:35 | Day surgery (SDC) | payer OTHER ==
[2021-08-07] MEDS ORDERED: Lidocaine 1% PF 5 ML VIAL ONE (08:37)
[2021-08-07] MEDS ORDERED: Sodium Bicarbonate 2.5 MEQ/5 ML VIAL ONE (08:37)
[2021-08-07] MEDS ORDERED: Albumin 25% 200 ML ONE (08:37)
[2021-08-07] MEDS ORDERED: Sodium Chloride 0.9% 10 ML ONE (09:57)
[2021-08-07 12:15] LABS: Body Fluid Source Paracentesis Fluid; RBC Count-Automated (BF) 984 /cu.mm; Tube # EDTA; WBC/Nucleated-Auto (BF) 64 /cu.mm
[2021-08-07 12:16] LABS: BF Color White; Clarity Hazy (Clear)
[2021-08-07 12:20] LABS: Cell Count Non Hematic 77 %; Lymphocytes 23 %
== END 2021-08-07 10:57 | disposition home or self-care (01) ==
LOC: ULT 08:35
PROVIDERS: ATTEND Internal Medicine Gastroenterology
PROC: 0W9G3ZX Drainage of Peritoneal Cavity, Percutaneous Approach, Diagnostic (ICD-10-PCS; principal; 2021-08-07)
DX: K74.60 Unspecified cirrhosis of liver (principal); R18.8 Other ascites; I85.10 Secondary esophageal varices without bleeding; J45.909 Unspecified asthma, uncomplicated; K21.9 Gastro-esophageal reflux disease without esophagitis; I12.9 Hypertensive chronic kidney disease with stage 1 through stage 4 chronic kidney disease, or unspecified chronic kidney disease; E11.22 Type 2 diabetes mellitus with diabetic chronic kidney disease; N18.9 Chronic kidney disease, unspecified; D50.9 Iron deficiency anemia, unspecified; M48.00 Spinal stenosis, site unspecified; Z87.891 Personal history of nicotine dependence; Z88.2 Allergy status to sulfonamides; Z88.5 Allergy status to narcotic agent; Z88.8 Allergy status to other drugs, medicaments and biological substances; Z91.018 Allergy to other foods; Z91.048 Other nonmedicinal substance allergy status
CPT/HCPCS: 49083; 85060; 87070; 87205; 89051; P9047

== ENCOUNTER 2021-08-12 10:15 | Day surgery (SDC) | payer OTHER ==
[2021-08-11 08:42] VITALS: BMI 26.6
[~2021-08-12 10:15] MED LIST changes: -Albumin 25% 200 ML ONE; +FLU VACC QS2021-22(6MOS UP)/PF 60 MCG/0.5 ML SYRINGE IM ONE; -Lidocaine 1% PF 5 ML VIAL ONE; -Sodium Bicarbonate 2.5 MEQ/5 ML VIAL ONE; -Sodium Chloride 0.9% 10 ML ONE
[2021-08-12] MEDS ORDERED: Lidocaine 1% PF 5 ML VIAL ONE (10:26)
[2021-08-12] MEDS ORDERED: Sodium Bicarbonate 2.5 MEQ/5 ML VIAL ONE (10:26)
[2021-08-12] MEDS ORDERED: Albumin 25% 200 ML ONE (10:26)
[2021-08-12] MEDS ORDERED: Sodium Chloride 0.9% 20 ML ONE (10:41)
[2021-08-12 12:30] VITALS: BP 100/61; TEMP 97.9
[2021-08-12 13:36] LABS: RBC Count-Automated (BF) 127 /cu.mm; WBC/Nucleated-Auto (BF) 18 /cu.mm
[2021-08-12 13:48] LABS: BF Color Yellow; Body Fluid Source Ascites Body Fluid; Clarity Hazy (Clear); Tube # EDTA
[2021-08-12 14:12] LABS: BF Segmented Neutrophils 3 %; Cell Count Non Hematic 75 %; Lymphocytes 22 %
== END 2021-08-12 12:15 | disposition home or self-care (01) ==
LOC: ULT 10:15
PROVIDERS: ATTEND Internal Medicine Gastroenterology
PROC: 0W9G3ZX Drainage of Peritoneal Cavity, Percutaneous Approach, Diagnostic (ICD-10-PCS; principal; 2021-08-12)
DX: K74.60 Unspecified cirrhosis of liver (principal); R18.8 Other ascites; I85.10 Secondary esophageal varices without bleeding; K72.90 Hepatic failure, unspecified without coma; I12.9 Hypertensive chronic kidney disease with stage 1 through stage 4 chronic kidney disease, or unspecified chronic kidney disease; E11.22 Type 2 diabetes mellitus with diabetic chronic kidney disease; N18.9 Chronic kidney disease, unspecified; D50.9 Iron deficiency anemia, unspecified; M48.00 Spinal stenosis, site unspecified; J45.909 Unspecified asthma, uncomplicated; K21.9 Gastro-esophageal reflux disease without esophagitis; Z87.891 Personal history of nicotine dependence; Z79.2 Long term (current) use of antibiotics; Z79.4 Long term (current) use of insulin; Z79.899 Other long term (current) drug therapy; Z88.2 Allergy status to sulfonamides; Z88.5 Allergy status to narcotic agent; Z88.8 Allergy status to other drugs, medicaments and biological substances; Z91.018 Allergy to other foods; Z91.048 Other nonmedicinal substance allergy status
CPT/HCPCS: 49083; 85060; 87070; 87205; 89051; J1642; P9047

== ENCOUNTER 2021-08-19 10:36 | Day surgery (SDC) | payer OTHER ==
[2021-08-19] MEDS ORDERED: Lidocaine 1% PF 5 ML VIAL ONE (11:07)
[2021-08-19] MEDS ORDERED: Sodium Bicarbonate 2.5 MEQ/5 ML VIAL ONE (11:07)
[2021-08-19] MEDS ORDERED: Albumin 25% 200 ML ONE (11:07)
[2021-08-19] MEDS ORDERED: Sodium Chloride 0.9% 20 ML ONE (11:07)
[2021-08-19 12:23] LABS: #Eosinphils 0.7 thou/uL (0.0-0.7); #Lymphocytes 0.7 thou/uL (1.20-3.40); #Monocytes 0.5 thou/uL (0.11-0.59); #Neutrophils 2.2 thou/uL (1.40-6.50); %Basophils 1.1 % (0.0-1.0); %Eosinophils 17.2 % (0.0-10.0); %Lymphocytes 16.8 % (21.0-51.0); %Monocytes 12.9 % (0.0-10.0); %Neutrophils 52.1 % (42.0-75.0); Hemoglobin 9.3 g/dL (12.0-16.0); Mean Corpuscular HGB CONC 32.5 g/dL (32.0-36.0); Mean Corpuscular Volume 95.2 fL (78.0-98.0); Mean Platelet Volume 9.3 fL (7.4-10.4); Platelet Count 90 thou/uL (130-400); RBC Distribution Width 14.4 % (11.5-14.5); White Blood Cell (WBC) Count 4.1 thou/uL (4.8-10.8)
[2021-08-19 12:47] LABS: ALT (SGPT) 11 U/L (8-55); AST (SGOT) 22 U/L (5-34); Alkaline Phosphatase 96 U/L (40-110); Anion Gap 10 mmol/L (10-20); BUN (Urea Nitrogen) 23 mg/dL (9.8-20.1); Calc. Creatinine Clearance 0 mL/min (70-130); Calcium 8.4 mg/dL (7.8-10.44); Carbon Dioxide 25 mmol/L (22-29); Chloride 109 mmol/L (98-107); Globulin 2.5 g/dL (2.4-3.5); Glucose 121 mg/dL (70-105); Potassium 4.1 mmol/L (3.5-5.1); Protein, Total 5.5 g/dL (6.0-8.3); Sodium 140 mmol/L (136-145)
[2021-08-19 12:58] LABS: INR-International Normal Ratio 1.5; Prothrombin Time 18.6 sec (12.0-14.7)
[2021-08-19 13:17] VITALS: BP 116/62; TEMP 97.9; BMI 25.3
[2021-08-19 13:21] LABS: RBC Count-Automated (BF) 9 /cu.mm; WBC/Nucleated-Auto (BF) 46 /cu.mm
[2021-08-19] MEDS ORDERED: FLU VACC QS2021-22(6MOS UP)/PF 60 MCG/0.5 ML SYRINGE IM ONE (13:30)
[2021-08-19 13:35] LABS: BF Color Yellow; Body Fluid Source Paracentesis Fluid; Clarity Hazy (Clear); Tube # EDTA
[2021-08-19 13:59] LABS: BF Segmented Neutrophils 1 %; Cell Count Non Hematic 83 %; Eosinophils 1 %; Lymphocytes 15 %
== END 2021-08-19 12:45 | disposition home or self-care (01) ==
LOC: ULT 10:36
PROVIDERS: ATTEND Internal Medicine Gastroenterology
PROC: 0W9G3ZX Drainage of Peritoneal Cavity, Percutaneous Approach, Diagnostic (ICD-10-PCS; principal; 2021-08-19)
DX: K74.60 Unspecified cirrhosis of liver (principal); R18.8 Other ascites; K72.90 Hepatic failure, unspecified without coma; D50.9 Iron deficiency anemia, unspecified; J45.909 Unspecified asthma, uncomplicated; K21.9 Gastro-esophageal reflux disease without esophagitis; I12.9 Hypertensive chronic kidney disease with stage 1 through stage 4 chronic kidney disease, or unspecified chronic kidney disease; E11.22 Type 2 diabetes mellitus with diabetic chronic kidney disease; N18.9 Chronic kidney disease, unspecified; Z87.891 Personal history of nicotine dependence; Z79.2 Long term (current) use of antibiotics; Z79.4 Long term (current) use of insulin; Z79.899 Other long term (current) drug therapy; Z88.2 Allergy status to sulfonamides; Z88.5 Allergy status to narcotic agent; Z88.8 Allergy status to other drugs, medicaments and biological substances; Z91.018 Allergy to other foods; Z91.048 Other nonmedicinal substance allergy status
CPT/HCPCS: 49083; 80053; 85025; 85060; 85610; 85730; 87070; 87205; 89051; J1642; P9047

== ENCOUNTER → 2021-08-26 | Day surgery (SDC) | payer OTHER ==
[~2021-08-26] MED LIST changes: +Albumin 25% 100 ML ONE; -FLU VACC QS2021-22(6MOS UP)/PF 60 MCG/0.5 ML SYRINGE IM ONE; +Lidocaine 1% PF 5 ML VIAL ONE; +Sodium Bicarbonate 2.5 MEQ/5 ML VIAL ONE; +Sodium Chloride 0.9% 10 ML ONE
== END | disposition home or self-care (01) ==
LOC: ULT 10:05
PROVIDERS: ATTEND Internal Medicine Gastroenterology
PROC: 0W9G3ZZ Drainage of Peritoneal Cavity, Percutaneous Approach (ICD-10-PCS; principal; 2021-08-26)
DX: K74.60 Unspecified cirrhosis of liver (principal); R18.8 Other ascites; K76.6 Portal hypertension; K31.89 Other diseases of stomach and duodenum; I85.10 Secondary esophageal varices without bleeding; I12.9 Hypertensive chronic kidney disease with stage 1 through stage 4 chronic kidney disease, or unspecified chronic kidney disease; E11.22 Type 2 diabetes mellitus with diabetic chronic kidney disease; N18.9 Chronic kidney disease, unspecified; D50.9 Iron deficiency anemia, unspecified; J45.909 Unspecified asthma, uncomplicated; K21.9 Gastro-esophageal reflux disease without esophagitis; M48.00 Spinal stenosis, site unspecified; K72.90 Hepatic failure, unspecified without coma; Z87.891 Personal history of nicotine dependence; Z79.4 Long term (current) use of insulin; Z79.899 Other long term (current) drug therapy; Z88.2 Allergy status to sulfonamides; Z88.5 Allergy status to narcotic agent; Z88.8 Allergy status to other drugs, medicaments and biological substances; Z91.018 Allergy to other foods; Z91.048 Other nonmedicinal substance allergy status
CPT/HCPCS: 49083; J1642; P9047

== ENCOUNTER 2021-09-02 09:43 | Day surgery (SDC) | payer OTHER ==
[2021-08-28 11:38] VITALS: BMI 26.6
[2021-09-02] MEDS ORDERED: Sodium Bicarbonate 2.5 MEQ/5 ML VIAL ONE (10:12)
[2021-09-02] MEDS ORDERED: Sodium Chloride 0.9% 10 ML ONE (10:12)
[2021-09-02] MEDS ORDERED: Albumin 25% 100 ML ONE (10:12)
[2021-09-02] MEDS ORDERED: Lidocaine 1% PF 5 ML VIAL ONE (10:12)
[2021-09-02 17:11] LABS: RBC Count-Automated (BF) 27 /cu.mm; WBC/Nucleated-Auto (BF) 46 /cu.mm
[2021-09-02 18:30] LABS: BF Color Colorless; Body Fluid Source Ascites Body Fluid; Clarity Hazy (Clear); Tube # EDTA
[2021-09-02 18:33] LABS: BF Segmented Neutrophils 2 %; Cell Count Non Hematic 73 %; Eosinophils 1 %; Lymphocytes 24 %
== END 2021-09-02 11:15 | disposition home or self-care (01) ==
LOC: ULT 09:43
PROVIDERS: ATTEND Internal Medicine Gastroenterology
PROC: 0W9G3ZX Drainage of Peritoneal Cavity, Percutaneous Approach, Diagnostic (ICD-10-PCS; principal; 2021-09-02)
DX: K74.60 Unspecified cirrhosis of liver (principal); R18.8 Other ascites; K72.90 Hepatic failure, unspecified without coma; Z87.891 Personal history of nicotine dependence; Z79.2 Long term (current) use of antibiotics; Z79.4 Long term (current) use of insulin; Z79.899 Other long term (current) drug therapy; Z88.2 Allergy status to sulfonamides; Z88.5 Allergy status to narcotic agent; Z88.8 Allergy status to other drugs, medicaments and biological substances; Z91.018 Allergy to other foods; Z91.048 Other nonmedicinal substance allergy status
CPT/HCPCS: 49083; 85060; 87070; 87205; 89051; J1642; P9047

== ENCOUNTER 2021-09-09 10:31 | Day surgery (SDC) | payer OTHER ==
[2021-09-08 15:18] VITALS: BMI 26.6
[2021-09-09] MEDS ORDERED: Albumin 25% 200 ML ONE (10:40)
[2021-09-09] MEDS ORDERED: Sodium Bicarbonate 2.5 MEQ/5 ML VIAL ONE (10:47)
[2021-09-09 13:53] LABS: RBC Count-Automated (BF) 69 /cu.mm; WBC/Nucleated-Auto (BF) 50 /cu.mm
[2021-09-09 13:54] LABS: BF Color Yellow; Body Fluid Source Ascites Body Fluid; Clarity Hazy (Clear); Tube # EDTA
[2021-09-09 14:19] LABS: BF Segmented Neutrophils 1 %; Cell Count Non Hematic 69 %; Eosinophils 3 %; Lymphocytes 26 %
[2021-09-09 14:34] VITALS: BP 116/74; TEMP 97.8
[2021-09-09] MEDS ORDERED: FLU VACC QS2021-22(6MOS UP)/PF 60 MCG/0.5 ML SYRINGE IM ONE (14:45)
== END 2021-09-09 14:37 | disposition home or self-care (01) ==
LOC: ULT 10:31
PROVIDERS: ATTEND Internal Medicine Gastroenterology
PROC: 0W9G3ZX Drainage of Peritoneal Cavity, Percutaneous Approach, Diagnostic (ICD-10-PCS; principal; 2021-09-09)
DX: K74.60 Unspecified cirrhosis of liver (principal); R18.8 Other ascites; Z79.2 Long term (current) use of antibiotics; Z79.4 Long term (current) use of insulin; Z79.899 Other long term (current) drug therapy; Z88.2 Allergy status to sulfonamides; Z88.5 Allergy status to narcotic agent; Z88.8 Allergy status to other drugs, medicaments and biological substances; Z91.018 Allergy to other foods; Z91.048 Other nonmedicinal substance allergy status
CPT/HCPCS: 49083; 85060; 87070; 87205; 89051; 90471; 90686; G0008; J1642; P9047

== ENCOUNTER 2021-09-16 09:53 | Day surgery (SDC) | payer OTHER ==
[2021-09-15 15:12] VITALS: BMI 26.6
[~2021-09-16 09:53] MED LIST changes: -Albumin 25% 100 ML ONE; +FLU VACC QS2021-22(6MOS UP)/PF 60 MCG/0.5 ML SYRINGE IM ONE; -Lidocaine 1% PF 5 ML VIAL ONE; -Sodium Bicarbonate 2.5 MEQ/5 ML VIAL ONE; -Sodium Chloride 0.9% 10 ML ONE
[2021-09-16] MEDS ORDERED: Albumin 25% 200 ML ONE (10:09)
[2021-09-16] MEDS ORDERED: Lidocaine 1% PF 5 ML VIAL ONE (10:09)
[2021-09-16] MEDS ORDERED: Sodium Chloride 0.9% 10 ML ONE (10:09)
[2021-09-16] MEDS ORDERED: Sodium Bicarbonate 2.5 MEQ/5 ML VIAL ONE (10:09)
[2021-09-16 11:11] LABS: #Basophils 0.1 thou/uL (0.0-0.2); #Eosinphils 0.3 thou/uL (0.0-0.7); #Lymphocytes 0.5 thou/uL (1.20-3.40); #Monocytes 0.5 thou/uL (0.11-0.59); #Neutrophils 2.1 thou/uL (1.40-6.50); %Basophils 1.6 % (0.0-1.0); %Eosinophils 8.9 % (0.0-10.0); %Monocytes 13.6 % (0.0-10.0); %Neutrophils 61.9 % (42.0-75.0); Hemoglobin 9.1 g/dL (12.0-16.0); Mean Corpuscular HGB CONC 32.2 g/dL (32.0-36.0); Mean Corpuscular Hemoglobin 30.4 pg (27.0-31.0); Mean Corpuscular Volume 94.3 fL (78.0-98.0); Mean Platelet Volume 6.4 fL (7.4-10.4); Platelet Count 61 thou/uL (130-400); RBC Distribution Width 14.2 % (11.5-14.5); Red Blood Cell (RBC) Count 2.99 mill/uL (4.20-5.40); White Blood Cell (WBC) Count 3.4 thou/uL (4.8-10.8)
[2021-09-16 11:19] LABS: INR-International Normal Ratio 1.5; Prothrombin Time 18.1 sec (12.0-14.7)
[2021-09-16 11:25] LABS: ALT (SGPT) 16 U/L (8-55); AST (SGOT) 25 U/L (5-34); Albumin 2.9 g/dL (3.5-5.0); Alkaline Phosphatase 93 U/L (40-110); Anion Gap 13 mmol/L (10-20); BUN (Urea Nitrogen) 24 mg/dL (9.8-20.1); Bilirubin, Total 1.3 mg/dL (0.2-1.2); Calc. Creatinine Clearance 44 mL/min (70-130); Calcium 8.5 mg/dL (7.8-10.44); Carbon Dioxide 20 mmol/L (22-29); Chloride 112 mmol/L (98-107); Globulin 2.5 g/dL (2.4-3.5); Glucose 268 mg/dL (70-105); Potassium 3.7 mmol/L (3.5-5.1); Protein, Total 5.4 g/dL (6.0-8.3); Sodium 141 mmol/L (136-145)
== END 2021-09-16 11:50 | disposition home or self-care (01) ==
LOC: ULT 09:53
PROVIDERS: ATTEND Internal Medicine Gastroenterology
PROC: 0W9G3ZZ Drainage of Peritoneal Cavity, Percutaneous Approach (ICD-10-PCS; principal; 2021-09-16)
DX: K74.60 Unspecified cirrhosis of liver (principal); R18.8 Other ascites; Z79.4 Long term (current) use of insulin; Z79.899 Other long term (current) drug therapy; Z88.0 Allergy status to penicillin; Z88.2 Allergy status to sulfonamides; Z88.5 Allergy status to narcotic agent; Z88.6 Allergy status to analgesic agent; Z88.8 Allergy status to other drugs, medicaments and biological substances; Z91.018 Allergy to other foods; Z91.048 Other nonmedicinal substance allergy status
CPT/HCPCS: 49083; 80053; 85025; 85610; 90471; 90686; G0008; J1642; P9047

== ENCOUNTER 2021-09-23 10:02 | Day surgery (SDC) | payer OTHER ==
[2021-09-22 08:57] VITALS: BMI 26.6
[2021-09-23] MEDS ORDERED: Sodium Bicarbonate 2.5 MEQ/5 ML VIAL ONE (10:25)
[2021-09-23] MEDS ORDERED: Albumin 25% 200 ML ONE (10:25)
[2021-09-23] MEDS ORDERED: Sodium Chloride 0.9% 10 ML ONE (10:45)
[2021-09-23] MEDS ORDERED: Albumin 25% 25 GM/100 ML BOT IVPB SCH (11:15)
[2021-09-23 13:33] VITALS: BP 126/58
[2021-09-23 14:54] LABS: RBC Count-Automated (BF) 10 /cu.mm; WBC/Nucleated-Auto (BF) 20 /cu.mm
[2021-09-23 15:20] LABS: BF Color Colorless; Body Fluid Source Ascites Body Fluid; Clarity Hazy (Clear); Tube # EDTA
[2021-09-23 15:24] LABS: Cell Count Non Hematic 70 %; Eosinophils 1 %; Lymphocytes 28 %
== END 2021-09-23 12:00 | disposition home or self-care (01) ==
LOC: ULT 10:02
PROVIDERS: ATTEND Internal Medicine Gastroenterology
PROC: 0W9G3ZX Drainage of Peritoneal Cavity, Percutaneous Approach, Diagnostic (ICD-10-PCS; principal; 2021-09-23)
DX: K74.60 Unspecified cirrhosis of liver (principal); R18.8 Other ascites; K72.91 Hepatic failure, unspecified with coma; Z79.4 Long term (current) use of insulin; Z79.899 Other long term (current) drug therapy; Z88.0 Allergy status to penicillin; Z88.2 Allergy status to sulfonamides; Z88.5 Allergy status to narcotic agent; Z88.6 Allergy status to analgesic agent; Z88.8 Allergy status to other drugs, medicaments and biological substances; Z91.018 Allergy to other foods; Z91.048 Other nonmedicinal substance allergy status
CPT/HCPCS: 49083; 85060; 87070; 87205; 89051; J1642; P9047

== ENCOUNTER 2021-09-25 20:40 | Inpatient (IN) | payer OTHER ==
[2021-09-25 22:51] LABS: Hemoglobin 8.2 g/dL (12.0-16.0); Mean Corpuscular HGB CONC 31.8 g/dL (32.0-36.0); Mean Corpuscular Hemoglobin 30.1 pg (27.0-31.0); Mean Corpuscular Volume 94.6 fL (78.0-98.0); Mean Platelet Volume 10.4 fL (7.4-10.4); Platelet Count 56 thou/uL (130-400); Red Blood Cell (RBC) Count 2.73 mill/uL (4.20-5.40); White Blood Cell (WBC) Count 4.2 thou/uL (4.8-10.8)
[2021-09-25 22:59] LABS: #Eosinphils 0.2 thou/uL (0.0-0.7); #Lymphocytes 0.4 thou/uL (1.20-3.40); #Monocytes 0.5 thou/uL (0.11-0.59); %Basophils 0.7 % (0.0-1.0); %Eosinophils 5.3 % (0.0-10.0); %Lymphocytes 10.3 % (21.0-51.0); %Monocytes 11.4 % (0.0-10.0); %Neutrophils 72.2 % (42.0-75.0); Platelet Morphology Comment Appears Decreased
[2021-09-25 23:04] LABS: ALT (SGPT) 9 U/L (8-55); AST (SGOT) 16 U/L (5-34); Albumin 1.7 g/dL (3.5-5.0); Alkaline Phosphatase 49 U/L (40-110); Anion Gap 5 mmol/L (10-20); BUN (Urea Nitrogen) 19 mg/dL (9.8-20.1); Bilirubin, Total 0.7 mg/dL (0.2-1.2); Calc. Creatinine Clearance 0 mL/min (70-130); Carbon Dioxide 14 mmol/L (22-29); Globulin 1.2 g/dL (2.4-3.5); Glucose 64 mg/dL (70-105); Lipase 25 U/L (8-78); Protein, Total 2.9 g/dL (6.0-8.3); Sodium 144 mmol/L (136-145)
[2021-09-25 23:08] LABS: Calcium 4.7 mg/dL (7.8-10.44); Chloride 127 mmol/L (98-107); Potassium 2.3 mmol/L (3.5-5.1)
[2021-09-26] MEDS ORDERED: Calcium Gluc 4.6 MEQ/10 ML (100 MG/ML) ONE (00:22)
[2021-09-26] MEDS ORDERED: Potassium Chloride 20 MEQ TAB ONE (00:22)
[2021-09-26] MEDS ORDERED: Calcium Chloride 1 GM/10 ML Abboject SYRINGE ONE (00:23)
[2021-09-26 00:30] LABS: Magnesium 1.9 mg/dL (1.6-2.6); Phosphorus 3.2 mg/dL (2.3-4.7)
[2021-09-26 00:35] LABS: Actual Bicarbonate (HCO3a) 16.7 mEq/L (22-28); Analyzer IN Cardio ER; Base Excess (BEa) -6.2 mEq/L (-2.0 to +3.0); Calcium, Ionized (arterial) 1.15 mmol/L (1.12-1.30); Carboxyhemoglobin (COHb) 0.3 gm% (0.0-3.0); Hemoglobin (Hb) 8.3 g/dL (12.0-16.0); O2 Tension (PaO2), arterial 98.4 mmHg (80.0-100.0); Potassium - ABG Lab 4.06 mmol/L (3.70-5.30); pH, Arterial 7.46 (7.35-7.45)
[2021-09-26 00:36] LABS: CO2 Tension 24.2 mmHg (35.0-45.0)
[2021-09-26 00:37] LABS: Puncture Site RRA
[2021-09-26] MEDS ORDERED: Dextrose 5% in Water 1,000 ML IV PRN (01:22)
[2021-09-26] MEDS ORDERED: Ondansetron ODT 4 MG TAB PO PRN (01:22)
[2021-09-26] MEDS ORDERED: Dextrose 50% Abboject 50 ML SYRINGE SLOW IVP PRN (01:22)
[2021-09-26] MEDS ORDERED: Calcium Carbonate 500 MG ChewTAB PO PRN (01:22)
[2021-09-26] MEDS ORDERED: HumaLOG 300 UNITS/3 ML VIAL SC PRN ×2 (01:22)
[2021-09-26] MEDS ORDERED: Ondansetron PF 4 MG/2 ML Vial IVP PRN (01:22)
[2021-09-26] MEDS ORDERED: Melatonin 3 MG TAB PO PRN (01:57)
[2021-09-26] MEDS ORDERED: Albuterol 200 PUFF (6.7GM INHALER) INH PRN (02:03)
[2021-09-26 02:19] LABS: Troponin I Less than 0.010 ng/mL (< 0.028)
[2021-09-26 03:12] LABS: ALT (SGPT) 17 U/L (8-55); AST (SGOT) 28 U/L (5-34); Alkaline Phosphatase 81 U/L (40-110); Anion Gap 10 mmol/L (10-20); BUN (Urea Nitrogen) 34 mg/dL (9.8-20.1); Bilirubin, Total 1.3 mg/dL (0.2-1.2); Calc. Creatinine Clearance 0 mL/min (70-130); Calcium 9.6 mg/dL (7.8-10.44); Carbon Dioxide 21 mmol/L (22-29); Chloride 113 mmol/L (98-107); Globulin 2.2 g/dL (2.4-3.5); Glucose 192 mg/dL (70-105); Potassium 4.3 mmol/L (3.5-5.1); Protein, Total 5.2 g/dL (6.0-8.3); Sodium 140 mmol/L (136-145)
[2021-09-26 04:42] LABS: #Eosinphils 0.2 thou/uL (0.0-0.7); #Lymphocytes 0.6 thou/uL (1.20-3.40); #Monocytes 0.5 thou/uL (0.11-0.59); #Neutrophils 2.3 thou/uL (1.40-6.50); %Basophils 0.3 % (0.0-1.0); %Eosinophils 5.9 % (0.0-10.0); %Lymphocytes 15.4 % (21.0-51.0); %Monocytes 14.7 % (0.0-10.0); %Neutrophils 63.7 % (42.0-75.0); Hemoglobin 7.2 g/dL (12.0-16.0); Mean Corpuscular HGB CONC 31.5 g/dL (32.0-36.0); Mean Corpuscular Hemoglobin 30.3 pg (27.0-31.0); Mean Corpuscular Volume 96.2 fL (78.0-98.0); Mean Platelet Volume 11.1 fL (7.4-10.4); Platelet Count 51 thou/uL (130-400); Red Blood Cell (RBC) Count 2.37 mill/uL (4.20-5.40); White Blood Cell (WBC) Count 3.5 thou/uL (4.8-10.8)
[2021-09-26 05:03] LABS: Troponin I Less than 0.010 ng/mL (< 0.028)
[2021-09-26 05:27] LABS: Thyroid Stimulating Hormone 2.3786 uIU/mL (0.35-4.94); Vitamin D, 25 Hydroxy 18.7 ng/ml (> 30.0)
[2021-09-26 07:53] VITALS: BP 102/68; TEMP 98.1
[2021-09-26] MEDS ORDERED: HumaLOG 300 UNITS/3 ML VIAL SC SCH (08:00)
[2021-09-26] MEDS ORDERED: Midodrine HCl 5 MG TAB PO SCH (08:00)
[2021-09-26 08:20] LABS: Bacteria/HPF 4+ HPF (None Seen); Bilirubin Negative (Negative); Blood, Urine Negative (Negative); Glucose, Urine (Dipstick) Normal (Negative); Ketone, Urine Negative (Negative); Leukocyte 75 Leu/uL (Negative); Nitrite Negative (Negative); Protein, Urine (Dipstick) Negative (Neg-Trace); RBC/HPF 0-3 HPF (0-3); Specific Gravity, Urine 1.016 (1.002-1.036); Urobilinogen Normal mg/dL (Less than 2); pH, Urine 5.5 (5.0-9.0)
[2021-09-26 08:21] LABS: Clarity Cloudy (Clear)
[2021-09-26] MEDS ORDERED: Cyclobenzaprine 10 MG TAB PO SCH (09:00)
[2021-09-26] MEDS ORDERED: Fluticasone Propionate Nasal Spray 16 gm Bottle NASAL SCH (09:00)
[2021-09-26] MEDS ORDERED: Lantus 1000 UNITS/10 ML VIAL SC SCH (09:00)
[2021-09-26] MEDS ORDERED: Cyanocobalamin (Vitamin B-12) 1,000 MCG TAB PO SCH (09:00)
[2021-09-26] MEDS ORDERED: Spironolactone 100 MG TAB PO SCH (09:00)
[2021-09-26] MEDS ORDERED: Magnesium Oxide 250 MG TAB PO SCH (09:00)
[2021-09-26] MEDS ORDERED: Ferrous Sulfate 325 MG TAB PO SCH (09:00)
[2021-09-26] MEDS ORDERED: Folic Acid 1 MG TAB PO SCH (09:00)
[2021-09-26] MEDS ORDERED: Cholecalciferol 1,000 UNITS (25 MCG) TAB PO SCH (09:00)
[2021-09-26] MEDS ORDERED: Bupropion 150 MG XL TAB PO SCH (09:00)
[2021-09-26] MEDS ORDERED: Furosemide 40 MG TAB PO SCH (09:00)
[2021-09-26] MEDS ORDERED: busPIRone HCl 10 MG TAB PO SCH (09:00)
[2021-09-26] MEDS ORDERED: HumaLOG 300 UNITS/3 ML VIAL ONE (09:22)
[2021-09-26] MEDS ORDERED: Folic Acid 1 MG TAB ONE (09:22)
[2021-09-26] MEDS ORDERED: Furosemide 40 MG TAB ONE (09:22)
[2021-09-26 12:10] LABS: SARS-CoV-2 PCR by NAA Not Detected (NotDetected)
[2021-09-26] MEDS ORDERED: Loratadine 10 MG TAB PO SCH (21:00)
== END 2021-09-26 11:56 | disposition home or self-care (01) | DRG 392 ==
LOC: ERS 20:40 → ERHOLD 23:59
PROVIDERS: ADMIT Student in an Organized Health Care Education/Training Program; ATTEND Student in an Organized Health Care Education/Training Program
DX: K21.9 Gastro-esophageal reflux disease without esophagitis (principal); R18.8 Other ascites; K76.6 Portal hypertension; I85.10 Secondary esophageal varices without bleeding; E83.51 Hypocalcemia; K74.60 Unspecified cirrhosis of liver; R11.2 Nausea with vomiting, unspecified; E11.22 Type 2 diabetes mellitus with diabetic chronic kidney disease; N18.30 Chronic kidney disease, stage 3 unspecified; E87.6 Hypokalemia; D63.1 Anemia in chronic kidney disease; Z20.822 Contact with and (suspected) exposure to COVID-19; E87.8 Other disorders of electrolyte and fluid balance, not elsewhere classified; D69.59 Other secondary thrombocytopenia; K31.89 Other diseases of stomach and duodenum; F41.9 Anxiety disorder, unspecified; I12.9 Hypertensive chronic kidney disease with stage 1 through stage 4 chronic kidney disease, or unspecified chronic kidney disease; J45.909 Unspecified asthma, uncomplicated; Z87.891 Personal history of nicotine dependence; Z90.49 Acquired absence of other specified parts of digestive tract; Z88.0 Allergy status to penicillin; Z88.2 Allergy status to sulfonamides; Z88.5 Allergy status to narcotic agent; Z88.8 Allergy status to other drugs, medicaments and biological substances; Z79.899 Other long term (current) drug therapy; Z90.89 Acquired absence of other organs; Z98.890 Other specified postprocedural states
CPT/HCPCS: 36416; 36600; 71045; 80053; 81003; 81015; 82140; 82306; 82652; 82805; 83690; 83735; 83880; 83970; 84100; 84443; 84484; 85025; 87804; 93005; 94760; J0610; J1642; J1815; U0003; U0005

== ENCOUNTER 2021-09-30 09:49 | Day surgery (SDC) | payer OTHER ==
[2021-09-26 15:58] VITALS: BMI 26.6
[2021-09-30] MEDS ORDERED: Sodium Bicarbonate 2.5 MEQ/5 ML VIAL ONE (10:45)
[2021-09-30] MEDS ORDERED: Albumin 25% 200 ML ONE (10:45)
[2021-09-30] MEDS ORDERED: Sodium Chloride 0.9% 10 ML ONE (10:46)
[2021-09-30] MEDS ORDERED: Albumin 25% 25 GM/100 ML BOT IVPB SCH (11:00)
[2021-09-30 12:36] VITALS: BP 109/56
[2021-09-30 13:14] LABS: RBC Count-Automated (BF) 30 /cu.mm; WBC/Nucleated-Auto (BF) 20 /cu.mm
[2021-09-30 14:01] LABS: BF Color Colorless; Body Fluid Source Ascites Body Fluid; Clarity Hazy (Clear); Tube # EDTA
[2021-09-30 14:07] LABS: BF Segmented Neutrophils 1 %; Cell Count Non Hematic 65 %; Eosinophils 1 %; Lymphocytes 33 %
== END 2021-09-30 12:15 | disposition home or self-care (01) ==
LOC: ULT 09:49
PROVIDERS: ATTEND Internal Medicine Gastroenterology
PROC: 0W9G3ZX Drainage of Peritoneal Cavity, Percutaneous Approach, Diagnostic (ICD-10-PCS; principal; 2021-09-30)
DX: K74.60 Unspecified cirrhosis of liver (principal); R18.8 Other ascites; Z79.2 Long term (current) use of antibiotics; Z79.4 Long term (current) use of insulin; Z79.899 Other long term (current) drug therapy; Z88.0 Allergy status to penicillin; Z88.2 Allergy status to sulfonamides; Z88.5 Allergy status to narcotic agent; Z88.6 Allergy status to analgesic agent; Z88.8 Allergy status to other drugs, medicaments and biological substances; Z91.018 Allergy to other foods; Z91.048 Other nonmedicinal substance allergy status
CPT/HCPCS: 49083; 85060; 87070; 87077; 87186; 87205; 89051; J1642; P9047

== ENCOUNTER 2021-10-01 14:42 | Inpatient (IN) | payer OTHER ==
[2021-10-01 16:33] LABS: Mean Corpuscular HGB CONC 32.4 g/dL (32.0-36.0); Mean Corpuscular Hemoglobin 30.8 pg (27.0-31.0); Mean Platelet Volume 10.7 fL (7.4-10.4); Platelet Count 70 thou/uL (130-400); Red Blood Cell (RBC) Count 2.59 mill/uL (4.20-5.40); White Blood Cell (WBC) Count 3.4 thou/uL (4.8-10.8)
[2021-10-01 16:53] LABS: ALT (SGPT) 19 U/L (8-55); AST (SGOT) 29 U/L (5-34); Albumin 3.3 g/dL (3.5-5.0); Alkaline Phosphatase 82 U/L (40-110); Anion Gap 11 mmol/L (10-20); BUN (Urea Nitrogen) 33 mg/dL (9.8-20.1); Bilirubin, Total 1.3 mg/dL (0.2-1.2); Calc. Creatinine Clearance 0 mL/min (70-130); Calcium 8.5 mg/dL (7.8-10.44); Carbon Dioxide 20 mmol/L (22-29); Chloride 109 mmol/L (98-107); Globulin 2.2 g/dL (2.4-3.5); Glucose 150 mg/dL (70-105); Lipase 49 U/L (8-78); Potassium 4.3 mmol/L (3.5-5.1); Protein, Total 5.5 g/dL (6.0-8.3); Sodium 136 mmol/L (136-145)
[2021-10-01 16:58] LABS: Band 1 % (5-11); Eosinophils 2 % (0-10); Lymphocytes 9 % (21-51); MDiff Complete? YES; Monocytes 13 % (0-10); Neutrophil 71 % (42-75); Nucleated RBC 1 % (0); Ovalocytes MODERATE= 6-15 cells (100X) (0-1/hpf); Platelet Morphology Comment Appears Decreased; Polychromasia SLIGHT = 2-3 cells (100X) (0-2/hpf); Reactive Lymphocytes 2 % (0-10)
[2021-10-01 17:10] LABS: INR-International Normal Ratio 1.4; PTT 38.7 sec (22.9-36.1); Prothrombin Time 17.3 sec (12.0-14.7)
[2021-10-01] MEDS ORDERED: Pantoprazole 40 MG VIAL ONE (18:53)
[2021-10-01] MEDS ORDERED: cefTRIAXone\\ROCEPHIN 2 GM VIAL ONE (19:14)
[2021-10-01] MEDS ORDERED: Ondansetron PF 4 MG/2 ML Vial IVP PRN (20:34)
[2021-10-01] MEDS ORDERED: Dextrose 50% Abboject 50 ML SYRINGE SLOW IVP PRN (20:34)
[2021-10-01] MEDS ORDERED: Dextrose 5% in Water 1,000 ML IV PRN (20:34)
[2021-10-01] MEDS ORDERED: Ondansetron ODT 4 MG TAB PO PRN (20:34)
[2021-10-01] MEDS ORDERED: HumaLOG 300 UNITS/3 ML VIAL SC PRN (20:36)
[2021-10-01] MEDS ORDERED: Ciprofloxacin 500 MG TAB PO SCH (21:00)
[2021-10-01] MEDS ORDERED: Albuterol Sulfate 2.5 mg/3 ml Neb NEB PRN (21:21)
[2021-10-01 21:35] VITALS: BMI 27.0
[2021-10-01] MEDS: Melatonin 3 MG TAB PO PRN (21:48)
[2021-10-01] MEDS: busPIRone HCl 10 MG TAB PO SCH (21:49)
[2021-10-01] MEDS: Cholecalciferol 1,000 UNITS (25 MCG) TAB PO SCH (21:49)
[2021-10-01] MEDS: Furosemide 40 MG TAB PO SCH (21:49)
[2021-10-01] MEDS: Spironolactone 100 MG TAB PO SCH (21:49)
[2021-10-01] MEDS: Cyclobenzaprine 10 MG TAB PO SCH (21:49)
[2021-10-01] MEDS: Loratadine 10 MG TAB PO SCH (21:49)
[2021-10-01] MEDS: traMADol HCl 50 MG TAB PO PRN (22:00)
[2021-10-01] MEDS: HumaLOG 300 UNITS/3 ML VIAL SC PRN (22:01)
[2021-10-02] MEDS ORDERED: Octreotide Acetate 50 MCG in Sodium Chloride 0.9% 50 ML IVPB SCH (01:30)
[2021-10-02] MEDS: Pantoprazole 80 MG in Sodium Chloride 0.9% 100 ML IVPB SCH ×2 (02:42→13:31)
[2021-10-02] MEDS: Octreotide Acetate 1,250 MCG in Sodium Chloride 0.9% 250 ML 250 ML IVPB SCH (02:48)
[2021-10-02] MEDS ORDERED: HumaLOG 300 UNITS/3 ML VIAL SC SCH (08:00)
[2021-10-02] MEDS: Cholecalciferol 1,000 UNITS (25 MCG) TAB PO SCH ×2 (08:50→21:09)
[2021-10-02] MEDS: Cyclobenzaprine 10 MG TAB PO SCH ×2 (08:50→21:08)
[2021-10-02] MEDS: Midodrine HCl 5 MG TAB PO SCH ×3 (08:50→18:26)
[2021-10-02] MEDS: Folic Acid 1 MG TAB PO SCH (08:50)
[2021-10-02] MEDS: Furosemide 40 MG TAB PO SCH ×2 (08:50→21:09)
[2021-10-02] MEDS: Ferrous Sulfate 325 MG TAB PO SCH ×3 (08:50→21:08)
[2021-10-02] MEDS: Spironolactone 100 MG TAB PO SCH ×2 (08:50→21:09)
[2021-10-02] MEDS: busPIRone HCl 10 MG TAB PO SCH ×2 (08:51→21:08)
[2021-10-02] MEDS: Cyanocobalamin (Vitamin B-12) 1,000 MCG TAB PO SCH (08:51)
[2021-10-02] MEDS: Fluticasone Propionate Nasal Spray 16 gm Bottle NASAL SCH (08:51)
[2021-10-02] MEDS: Bupropion 150 MG XL TAB PO SCH (08:51)
[2021-10-02] MEDS: Lantus 1000 UNITS/10 ML VIAL SC SCH (08:53)
[2021-10-02] MEDS ORDERED: Lantus 1000 UNITS/10 ML VIAL SC SCH (09:00)
[2021-10-02] MEDS ORDERED: MAGNESIUM OXIDE 500 MG PO SCH (09:00)
[2021-10-02] MEDS ORDERED: Pantoprazole 40 MG VIAL IVP SCH (09:00)
[2021-10-02] MEDS: traMADol HCl 50 MG TAB PO PRN ×3 (10:16→23:05)
[2021-10-02 10:23] LABS: Hemoglobin 6.5 g/dL (12.0-16.0); Mean Corpuscular HGB CONC 31.4 g/dL (32.0-36.0); Mean Corpuscular Hemoglobin 30.4 pg (27.0-31.0); Mean Corpuscular Volume 96.6 fL (78.0-98.0); Mean Platelet Volume 10.3 fL (7.4-10.4); Platelet Count 49 thou/uL (130-400); RBC Distribution Width 14.1 % (11.5-14.5); Red Blood Cell (RBC) Count 2.14 mill/uL (4.20-5.40); White Blood Cell (WBC) Count 2.3 thou/uL (4.8-10.8)
[2021-10-02 10:25] LABS: Anion Gap 9 mmol/L (10-20); BUN (Urea Nitrogen) 34 mg/dL (9.8-20.1); Calc. Creatinine Clearance 44 mL/min (70-130); Carbon Dioxide 20 mmol/L (22-29); Chloride 115 mmol/L (98-107); Glucose 129 mg/dL (70-105); Potassium 4.3 mmol/L (3.5-5.1); Sodium 140 mmol/L (136-145)
[2021-10-02 11:13] LABS: Band 6 % (5-11); Eosinophils 7 % (0-10); Hypochromia SLIGHT = 6-15 cells (100X) (0-5/hpf); Lymphocytes 20 % (21-51); MDiff Complete? YES; Monocytes 24 % (0-10); Myelocyte 1 % (0-0); Neutrophil 41 % (42-75); Ovalocytes SLIGHT = 2-5 cells (100X) (0-1/hpf); Platelet Morphology Comment Appears Decreased; Polychromasia SLIGHT = 2-3 cells (100X) (0-2/hpf)
[2021-10-02 12:29] LABS: SARS-CoV-2 PCR by NAA Not Detected (NotDetected)
[2021-10-02 17:40] LABS: Hemoglobin 7.9 g/dL (12.0-16.0)
[2021-10-02] MEDS ORDERED: cefTRIAXone\\ROCEPHIN 1 GM in Sodium Chloride 0.9% 100 ML IVPB SCH (18:00)
[2021-10-02] MEDS: Loratadine 10 MG TAB PO SCH (21:09)
[2021-10-02] MEDS: Melatonin 3 MG TAB PO PRN (23:04)
[2021-10-03] MEDS: Pantoprazole 80 MG in Sodium Chloride 0.9% 100 ML IVPB SCH (04:22)
[2021-10-03] MEDS: Octreotide Acetate 1,250 MCG in Sodium Chloride 0.9% 250 ML 250 ML IVPB SCH (04:23)
[2021-10-03 04:54] LABS: Anion Gap 9 mmol/L (10-20); BUN (Urea Nitrogen) 31 mg/dL (9.8-20.1); Calc. Creatinine Clearance 45 mL/min (70-130); Calcium 7.9 mg/dL (7.8-10.44); Carbon Dioxide 21 mmol/L (22-29); Chloride 113 mmol/L (98-107); Glucose 141 mg/dL (70-105); Magnesium 1.8 mg/dL (1.6-2.6); Potassium 3.7 mmol/L (3.5-5.1); Sodium 139 mmol/L (136-145)
[2021-10-03 05:21] LABS: Hemoglobin 7.2 g/dL (12.0-16.0); Mean Corpuscular Hemoglobin 30.7 pg (27.0-31.0); Mean Platelet Volume 9.9 fL (7.4-10.4); Platelet Count 47 thou/uL (130-400); RBC Distribution Width 14.1 % (11.5-14.5); Red Blood Cell (RBC) Count 2.34 mill/uL (4.20-5.40); White Blood Cell (WBC) Count 2.1 thou/uL (4.8-10.8)
[2021-10-03 05:22] LABS: Eosinophils 16 % (0-10); Lymphocytes 22 % (21-51); MDiff Complete? YES; Monocytes 18 % (0-10); Neutrophil 39 % (42-75); Platelet Morphology Comment Appears Decreased; Reactive Lymphocytes 5 % (0-10)
[2021-10-03] MEDS ORDERED: Lidocaine 1% PF 5 ML VIAL ONE (08:17)
[2021-10-03] MEDS ORDERED: PROPOFOL 200 MG/20 ML VIAL ONE (08:17)
[2021-10-03] MEDS: Midodrine HCl 5 MG TAB PO SCH ×3 (10:30→15:52)
[2021-10-03] MEDS: Fluticasone Propionate Nasal Spray 16 gm Bottle NASAL SCH (10:32)
[2021-10-03] MEDS: Spironolactone 100 MG TAB PO SCH ×2 (10:33→20:11)
[2021-10-03] MEDS: Magnesium Oxide 250 MG TAB PO SCH (10:33)
[2021-10-03] MEDS: busPIRone HCl 10 MG TAB PO SCH ×2 (10:34→20:10)
[2021-10-03] MEDS: Cyclobenzaprine 10 MG TAB PO SCH ×2 (10:34→20:10)
[2021-10-03] MEDS: Ferrous Sulfate 325 MG TAB PO SCH ×3 (10:34→20:10)
[2021-10-03] MEDS: Bupropion 150 MG XL TAB PO SCH (10:35)
[2021-10-03] MEDS: Cyanocobalamin (Vitamin B-12) 1,000 MCG TAB PO SCH (10:35)
[2021-10-03] MEDS: Folic Acid 1 MG TAB PO SCH (10:35)
[2021-10-03] MEDS: Lantus 1000 UNITS/10 ML VIAL SC SCH (10:35)
[2021-10-03] MEDS: Furosemide 40 MG TAB PO SCH ×2 (10:35→20:11)
[2021-10-03] MEDS: Cholecalciferol 1,000 UNITS (25 MCG) TAB PO SCH ×2 (10:35→20:10)
[2021-10-03] MEDS: traMADol HCl 50 MG TAB PO PRN ×2 (13:10→20:14)
[2021-10-03] MEDS: Clindamycin 150 MG CAP PO SCH ×2 (15:51→23:18)
[2021-10-03] MEDS: Pantoprazole 80 MG, Admixture Fee 1 EACH in Sodium Chloride 0.9% 100 ML IVPB SCH (17:06)
[2021-10-03] MEDS: Loratadine 10 MG TAB PO SCH (20:11)
[2021-10-03] MEDS: Melatonin 3 MG TAB PO PRN (20:14)
[2021-10-03] MEDS: HumaLOG 300 UNITS/3 ML VIAL SC PRN (20:16)
[2021-10-04] MEDS: Pantoprazole 80 MG, Admixture Fee 1 EACH in Sodium Chloride 0.9% 100 ML IVPB SCH ×2 (03:31→18:05)
[2021-10-04] MEDS: Clindamycin 150 MG CAP PO SCH ×3 (06:25→23:12)
[2021-10-04 06:37] LABS: #Eosinphils 0.2 thou/uL (0.0-0.7); #Lymphocytes 0.7 thou/uL (1.20-3.40); #Monocytes 0.4 thou/uL (0.11-0.59); #Neutrophils 3.6 thou/uL (1.40-6.50); %Basophils 0.7 % (0.0-1.0); %Eosinophils 4.9 % (0.0-10.0); %Lymphocytes 13.7 % (21.0-51.0); %Monocytes 8.7 % (0.0-10.0); Hemoglobin 6.9 g/dL (12.0-16.0); Mean Corpuscular HGB CONC 32.5 g/dL (32.0-36.0); Mean Corpuscular Hemoglobin 31.1 pg (27.0-31.0); Mean Corpuscular Volume 95.7 fL (78.0-98.0); Mean Platelet Volume 9.9 fL (7.4-10.4); Platelet Count 45 thou/uL (130-400); RBC Distribution Width 13.9 % (11.5-14.5); Red Blood Cell (RBC) Count 2.21 mill/uL (4.20-5.40)
[2021-10-04 06:57] LABS: Anion Gap 10 mmol/L (10-20); BUN (Urea Nitrogen) 31 mg/dL (9.8-20.1); Calc. Creatinine Clearance 40 mL/min (70-130); Calcium 7.6 mg/dL (7.8-10.44); Carbon Dioxide 20 mmol/L (22-29); Chloride 111 mmol/L (98-107); Glucose 122 mg/dL (70-105); Magnesium 1.7 mg/dL (1.6-2.6); Potassium 3.8 mmol/L (3.5-5.1); Sodium 137 mmol/L (136-145)
[2021-10-04] MEDS ORDERED: Magnesium Sulfate 2 GM in Sodium Chloride 0.9% 100 ML IVPB SCH (09:00)
[2021-10-04] MEDS ORDERED: Magnesium 2 GM/50 ML 2 GM in Premix Bag 1 BAG IVPB SCH (09:00)
[2021-10-04] MEDS: Bupropion 150 MG XL TAB PO SCH (09:51)
[2021-10-04] MEDS: Spironolactone 100 MG TAB PO SCH ×2 (09:51→21:04)
[2021-10-04] MEDS: busPIRone HCl 10 MG TAB PO SCH ×2 (09:51→21:03)
[2021-10-04] MEDS: Cholecalciferol 1,000 UNITS (25 MCG) TAB PO SCH ×2 (09:51→21:03)
[2021-10-04] MEDS: Furosemide 40 MG TAB PO SCH ×2 (09:51→21:04)
[2021-10-04] MEDS: Cyclobenzaprine 10 MG TAB PO SCH ×2 (09:51→21:03)
[2021-10-04] MEDS: Midodrine HCl 5 MG TAB PO SCH ×3 (09:51→16:55)
[2021-10-04] MEDS: Ferrous Sulfate 325 MG TAB PO SCH ×3 (09:51→21:03)
[2021-10-04] MEDS: Folic Acid 1 MG TAB PO SCH (09:51)
[2021-10-04] MEDS: Lantus 1000 UNITS/10 ML VIAL SC SCH (09:52)
[2021-10-04] MEDS: Cyanocobalamin (Vitamin B-12) 1,000 MCG TAB PO SCH (09:52)
[2021-10-04] MEDS: Fluticasone Propionate Nasal Spray 16 gm Bottle NASAL SCH (09:53)
[2021-10-04] MEDS: Magnesium Oxide 250 MG TAB PO SCH (10:21)
[2021-10-04 18:54] LABS: Hemoglobin 8.3 g/dL (12.0-16.0); Platelet Count 53 thou/uL (130-400)
[2021-10-04] MEDS: Loratadine 10 MG TAB PO SCH (21:04)
[2021-10-04] MEDS: Melatonin 3 MG TAB PO PRN (21:04)
[2021-10-04 22:38] LABS: Hemoglobin 8.3 g/dL (12.0-16.0); Platelet Count 44 thou/uL (130-400)
[2021-10-04] MEDS: traMADol HCl 50 MG TAB PO PRN (23:14)
[2021-10-05 03:33] LABS: Hemoglobin 8.3 g/dL (12.0-16.0); Platelet Count 44 thou/uL (130-400)
[2021-10-05] MEDS: Pantoprazole 80 MG, Admixture Fee 1 EACH in Sodium Chloride 0.9% 100 ML IVPB SCH (04:19)
[2021-10-05] MEDS: Clindamycin 150 MG CAP PO SCH ×2 (06:15→16:13)
[2021-10-05 07:00] LABS: #Eosinphils 0.3 thou/uL (0.0-0.7); #Lymphocytes 0.6 thou/uL (1.20-3.40); #Monocytes 0.5 thou/uL (0.11-0.59); #Neutrophils 2.8 thou/uL (1.40-6.50); %Basophils 0.9 % (0.0-1.0); %Eosinophils 7.4 % (0.0-10.0); %Lymphocytes 13.6 % (21.0-51.0); %Neutrophils 66.1 % (42.0-75.0); Hemoglobin 8.9 g/dL (12.0-16.0); Mean Corpuscular HGB CONC 33.1 g/dL (32.0-36.0); Mean Corpuscular Hemoglobin 31.4 pg (27.0-31.0); Mean Corpuscular Volume 94.8 fL (78.0-98.0); Mean Platelet Volume 10.6 fL (7.4-10.4); Platelet Count 46 thou/uL (130-400); RBC Distribution Width 14.2 % (11.5-14.5); Red Blood Cell (RBC) Count 2.83 mill/uL (4.20-5.40); White Blood Cell (WBC) Count 4.2 thou/uL (4.8-10.8)
[2021-10-05 07:11] LABS: Anion Gap 11 mmol/L (10-20); BUN (Urea Nitrogen) 28 mg/dL (9.8-20.1); Calc. Creatinine Clearance 45 mL/min (70-130); Calcium 7.8 mg/dL (7.8-10.44); Carbon Dioxide 20 mmol/L (22-29); Chloride 110 mmol/L (98-107); Glucose 124 mg/dL (70-105); Magnesium 1.9 mg/dL (1.6-2.6); Potassium 3.5 mmol/L (3.5-5.1); Sodium 137 mmol/L (136-145)
[2021-10-05 08:25] VITALS: BP 117/72; TEMP 97.2
[2021-10-05] MEDS: Magnesium Oxide 250 MG TAB PO SCH (09:51)
[2021-10-05] MEDS: Cyclobenzaprine 10 MG TAB PO SCH (09:52)
[2021-10-05] MEDS: Ferrous Sulfate 325 MG TAB PO SCH ×2 (09:52→16:11)
[2021-10-05] MEDS: busPIRone HCl 10 MG TAB PO SCH (09:53)
[2021-10-05] MEDS: Cholecalciferol 1,000 UNITS (25 MCG) TAB PO SCH (09:53)
[2021-10-05] MEDS: Bupropion 150 MG XL TAB PO SCH (09:53)
[2021-10-05] MEDS: Folic Acid 1 MG TAB PO SCH (09:53)
[2021-10-05] MEDS: Furosemide 40 MG TAB PO SCH (09:53)
[2021-10-05] MEDS: Cyanocobalamin (Vitamin B-12) 1,000 MCG TAB PO SCH (09:53)
[2021-10-05] MEDS: Spironolactone 100 MG TAB PO SCH (09:53)
[2021-10-05] MEDS: Midodrine HCl 5 MG TAB PO SCH ×3 (09:53→16:11)
[2021-10-05] MEDS: Lantus 1000 UNITS/10 ML VIAL SC SCH (09:54)
[2021-10-05] MEDS: Fluticasone Propionate Nasal Spray 16 gm Bottle NASAL SCH (09:56)
[2021-10-05] MEDS: traMADol HCl 50 MG TAB PO PRN (11:49)
[2021-10-05 14:08] LABS: Hemoglobin 8.6 g/dL (12.0-16.0); Platelet Count 49 thou/uL (130-400)
[2021-10-05 15:36] LABS: RBC Count-Automated (BF) 60 /cu.mm; WBC/Nucleated-Auto (BF) 20 /cu.mm
[2021-10-05 15:37] LABS: BF Color Yellow; Body Fluid Source Ascites Body Fluid; Clarity Hazy (Clear); Tube # EDTA
[2021-10-05 16:09] LABS: BF Segmented Neutrophils 1 %; Cell Count Non Hematic 56 %; Lymphocytes 42 %
== END 2021-10-05 18:13 | disposition home or self-care (01) | DRG 377 ==
LOC: ERS 14:42 → T4-B 18:59
PROVIDERS: ADMIT Family Medicine; ATTEND Family Medicine
PROC: 30233N1 Transfusion of Nonautologous Red Blood Cells into Peripheral Vein, Percutaneous Approach (ICD-10-PCS; principal; 2021-10-02)
PROC: 0W3P8ZZ Control Bleeding in Gastrointestinal Tract, Via Natural or Artificial Opening Endoscopic (ICD-10-PCS; 2021-10-03)
PROC: 0W9G3ZZ Drainage of Peritoneal Cavity, Percutaneous Approach (ICD-10-PCS; 2021-10-05)
DX: K31.811 Angiodysplasia of stomach and duodenum with bleeding (principal); K65.2 Spontaneous bacterial peritonitis; K76.6 Portal hypertension; N18.4 Chronic kidney disease, stage 4 (severe); K74.69 Other cirrhosis of liver; K31.89 Other diseases of stomach and duodenum; D50.9 Iron deficiency anemia, unspecified; E11.22 Type 2 diabetes mellitus with diabetic chronic kidney disease; K21.9 Gastro-esophageal reflux disease without esophagitis; F41.9 Anxiety disorder, unspecified; I12.9 Hypertensive chronic kidney disease with stage 1 through stage 4 chronic kidney disease, or unspecified chronic kidney disease; J45.909 Unspecified asthma, uncomplicated; Z79.4 Long term (current) use of insulin; Z88.8 Allergy status to other drugs, medicaments and biological substances; Z88.2 Allergy status to sulfonamides; Z88.5 Allergy status to narcotic agent; Z88.0 Allergy status to penicillin; Z79.51 Long term (current) use of inhaled steroids; Z79.899 Other long term (current) drug therapy; Z90.49 Acquired absence of other specified parts of digestive tract; Z98.890 Other specified postprocedural states; D69.59 Other secondary thrombocytopenia; I85.10 Secondary esophageal varices without bleeding; F32.A Depression, unspecified; E83.42 Hypomagnesemia
CPT/HCPCS: 36415; 36416; 36430; 80048; 80053; 82274; 83690; 83735; 84145; 85025; 85060; 85610; 85730; 86850; 86900; 86901; 87040; 87070; 87205; 89051; 94760; 96365; 96375; C9113; J0696; J1815; J2354; J2704; J3475; J3490; J7050; P9016; U0003; U0005

== ENCOUNTER 2021-10-07 09:54 | Day surgery (SDC) | payer OTHER ==
[2021-10-06 14:21] VITALS: BMI 26.6
[2021-10-07] MEDS ORDERED: Lidocaine 1% PF 5 ML VIAL ONE (09:58)
[2021-10-07] MEDS ORDERED: Sodium Bicarbonate 2.5 MEQ/5 ML VIAL ONE (09:58)
[2021-10-07] MEDS ORDERED: Albumin 25% 200 ML ONE (09:58)
[2021-10-07 13:05] LABS: RBC Count-Automated (BF) 20 /cu.mm; WBC/Nucleated-Auto (BF) 20 /cu.mm
[2021-10-07 13:46] LABS: BF Color Yellow; Body Fluid Source Ascites Body Fluid; Clarity Hazy (Clear); Tube # EDTA
[2021-10-07 13:49] LABS: BF Segmented Neutrophils 1 %; Cell Count Non Hematic 71 %; Eosinophils 1 %; Lymphocytes 25 %
== END 2021-10-07 11:30 | disposition home or self-care (01) ==
LOC: ULT 09:54
PROVIDERS: ATTEND Internal Medicine Gastroenterology
PROC: 0W9G3ZX Drainage of Peritoneal Cavity, Percutaneous Approach, Diagnostic (ICD-10-PCS; principal; 2021-10-07)
DX: K74.60 Unspecified cirrhosis of liver (principal); R18.8 Other ascites; Z88.0 Allergy status to penicillin; Z88.2 Allergy status to sulfonamides; Z88.5 Allergy status to narcotic agent; Z88.6 Allergy status to analgesic agent; Z88.8 Allergy status to other drugs, medicaments and biological substances; Z91.018 Allergy to other foods; Z91.048 Other nonmedicinal substance allergy status
CPT/HCPCS: 49083; 85060; 87070; 87205; 89051; P9047

== ENCOUNTER 2021-10-21 10:19 | Day surgery (SDC) | payer OTHER ==
[2021-10-20 14:22] VITALS: BMI 26.6
[2021-10-21] MEDS ORDERED: Lidocaine 1% PF 5 ML VIAL ONE (10:24)
[2021-10-21] MEDS ORDERED: Albumin 25% 200 ML ONE (10:24)
[2021-10-21] MEDS ORDERED: Sodium Bicarbonate 2.5 MEQ/5 ML VIAL ONE (10:24)
[2021-10-21] MEDS ORDERED: Sodium Chloride 0.9% 10 ML ONE (10:25)
[2021-10-21 12:07] VITALS: TEMP 98.1
[2021-10-21 13:14] LABS: RBC Count-Automated (BF) 22 /cu.mm; WBC/Nucleated-Auto (BF) 54 /cu.mm
[2021-10-21 13:30] LABS: BF Color Colorless; Body Fluid Source Ascites Body Fluid; Clarity Cloudy/Turbid (Clear); Tube # EDTA
[2021-10-21 13:37] LABS: BF Segmented Neutrophils 1 %; Cell Count Non Hematic 69 %; Eosinophils 2 %; Lymphocytes 27 %
[2021-10-21] MEDS ORDERED: FLU VACC QS2021-22(6MOS UP)/PF 60 MCG/0.5 ML SYRINGE IM ONE (14:45)
== END 2021-10-21 11:50 | disposition home or self-care (01) ==
LOC: ULT 10:19
PROVIDERS: ATTEND Internal Medicine Gastroenterology
PROC: 0W9G3ZX Drainage of Peritoneal Cavity, Percutaneous Approach, Diagnostic (ICD-10-PCS; principal; 2021-10-21)
DX: K74.60 Unspecified cirrhosis of liver (principal); R18.8 Other ascites; K76.6 Portal hypertension; K31.89 Other diseases of stomach and duodenum; K72.10 Chronic hepatic failure without coma; I12.9 Hypertensive chronic kidney disease with stage 1 through stage 4 chronic kidney disease, or unspecified chronic kidney disease; E11.22 Type 2 diabetes mellitus with diabetic chronic kidney disease; N18.4 Chronic kidney disease, stage 4 (severe); D63.1 Anemia in chronic kidney disease; K21.9 Gastro-esophageal reflux disease without esophagitis; Z79.4 Long term (current) use of insulin; Z79.899 Other long term (current) drug therapy; Z88.0 Allergy status to penicillin; Z88.2 Allergy status to sulfonamides; Z88.5 Allergy status to narcotic agent; Z88.6 Allergy status to analgesic agent; Z88.8 Allergy status to other drugs, medicaments and biological substances; Z91.018 Allergy to other foods; Z91.048 Other nonmedicinal substance allergy status
CPT/HCPCS: 49083; 82042; 84157; 85060; 87070; 87205; 89051; 90471; 90686; G0008; J1642; P9047

== ENCOUNTER → 2021-11-04 | Day surgery (SDC) | payer OTHER ==
[~2021-11-04] MED LIST changes: +Albumin 25% 200 ML ONE; -FLU VACC QS2021-22(6MOS UP)/PF 60 MCG/0.5 ML SYRINGE IM ONE; +Lidocaine 1% PF 5 ML VIAL ONE; +Sodium Bicarbonate 2.5 MEQ/5 ML VIAL ONE
[2021-11-04 13:44] LABS: INR-International Normal Ratio 1.5
[2021-11-04 13:52] VITALS: BP 111/56; TEMP 98.3
[2021-11-04 13:55] LABS: ALT (SGPT) 15 U/L (8-55); AST (SGOT) 25 U/L (5-34); Albumin 2.7 g/dL (3.5-5.0); Alkaline Phosphatase 93 U/L (40-110); Anion Gap 11 mmol/L (10-20); BUN (Urea Nitrogen) 21 mg/dL (9.8-20.1); Bilirubin, Total 1.1 mg/dL (0.2-1.2); Calc. Creatinine Clearance 0 mL/min (70-130); Calcium 7.9 mg/dL (7.8-10.44); Carbon Dioxide 20 mmol/L (22-29); Chloride 114 mmol/L (98-107); Globulin 2.4 g/dL (2.4-3.5); Glucose 205 mg/dL (70-105); Magnesium 1.7 mg/dL (1.6-2.6); Potassium 3.6 mmol/L (3.5-5.1); Protein, Total 5.1 g/dL (6.0-8.3); Sodium 141 mmol/L (136-145)
[2021-11-04 14:22] LABS: BF Color Colorless; Body Fluid Source Ascites Body Fluid; Clarity Hazy (Clear); RBC Count-Automated (BF) 97 /cu.mm; Tube # EDTA; WBC/Nucleated-Auto (BF) 11 /cu.mm
[2021-11-04 14:25] LABS: BF Segmented Neutrophils 6 %; Cell Count Non Hematic 53 %; Eosinophils 1 %; Lymphocytes 40 %
== END ==
LOC: ULT 09:57
PROVIDERS: ATTEND Internal Medicine Gastroenterology
PROC: 0W9G3ZX Drainage of Peritoneal Cavity, Percutaneous Approach, Diagnostic (ICD-10-PCS; principal; 2021-11-04)
DX: K74.60 Unspecified cirrhosis of liver (principal); R18.8 Other ascites; K72.90 Hepatic failure, unspecified without coma; Z88.0 Allergy status to penicillin; Z88.2 Allergy status to sulfonamides; Z88.5 Allergy status to narcotic agent; Z88.6 Allergy status to analgesic agent; Z88.8 Allergy status to other drugs, medicaments and biological substances; Z91.018 Allergy to other foods; Z91.048 Other nonmedicinal substance allergy status
CPT/HCPCS: 49083; 80053; 82042; 83735; 84157; 85060; 85610; 89051; J1642; P9047

== ENCOUNTER 2021-12-02 10:05 | Day surgery (SDC) | payer OTHER ==
[2021-12-01 15:26] VITALS: BMI 26.6
[2021-12-02] MEDS ORDERED: Sodium Bicarbonate 2.5 MEQ/5 ML VIAL ONE (10:15)
[2021-12-02] MEDS ORDERED: Lidocaine 1% PF 5 ML VIAL ONE (10:15)
[2021-12-02] MEDS ORDERED: Albumin 25% 200 ML ONE (10:15)
[2021-12-02 12:41] VITALS: BP 133/67; TEMP 98.2
[2021-12-02 12:50] LABS: #Eosinphils 0.4 thou/uL (0.0-0.7); #Lymphocytes 0.5 thou/uL (1.20-3.40); #Monocytes 0.6 thou/uL (0.11-0.59); #Neutrophils 3.2 thou/uL (1.40-6.50); %Basophils 0.8 % (0.0-1.0); %Eosinophils 7.6 % (0.0-10.0); %Lymphocytes 11.6 % (21.0-51.0); %Monocytes 12.9 % (0.0-10.0); %Neutrophils 67.1 % (42.0-75.0); Mean Corpuscular HGB CONC 31.4 g/dL (32.0-36.0); Mean Corpuscular Hemoglobin 30.8 pg (27.0-31.0); Mean Corpuscular Volume 98.1 fL (78.0-98.0); Mean Platelet Volume 11.2 fL (7.4-10.4); Platelet Count 66 thou/uL (130-400); RBC Distribution Width 13.7 % (11.5-14.5); White Blood Cell (WBC) Count 4.7 thou/uL (4.8-10.8)
[2021-12-02 12:59] LABS: INR-International Normal Ratio 1.3; PTT 39.7 sec (22.9-36.1); Prothrombin Time 16.7 sec (12.0-14.7)
[2021-12-02 13:30] LABS: ALT (SGPT) 19 U/L (8-55); AST (SGOT) 25 U/L (5-34); Albumin 3.1 g/dL (3.5-5.0); Alkaline Phosphatase 95 U/L (40-110); Anion Gap 14 mmol/L (10-20); BUN (Urea Nitrogen) 41 mg/dL (9.8-20.1); Calc. Creatinine Clearance 38 mL/min (70-130); Calcium 8.1 mg/dL (7.8-10.44); Carbon Dioxide 18 mmol/L (22-29); Chloride 109 mmol/L (98-107); Globulin 2.3 g/dL (2.4-3.5); Glucose 204 mg/dL (70-105); Magnesium 2.3 mg/dL (1.6-2.6); Potassium 3.8 mmol/L (3.5-5.1); Protein, Total 5.4 g/dL (6.0-8.3); Sodium 137 mmol/L (136-145)
[2021-12-02 13:41] LABS: RBC Count-Automated (BF) 19 /cu.mm; WBC/Nucleated-Auto (BF) 29 /cu.mm
[2021-12-02 13:55] LABS: BF Color Colorless; Body Fluid Source Ascites Body Fluid; Clarity Hazy (Clear); Tube # EDTA
[2021-12-02 14:19] LABS: BF Segmented Neutrophils 1 %; Cell Count Non Hematic 77 %; Eosinophils 1 %; Lymphocytes 21 %
== END 2021-12-02 12:05 | disposition home or self-care (01) ==
LOC: ULT 10:05
PROVIDERS: ATTEND Internal Medicine Gastroenterology
PROC: 0W9G3ZZ Drainage of Peritoneal Cavity, Percutaneous Approach (ICD-10-PCS; principal; 2021-12-02)
DX: K74.60 Unspecified cirrhosis of liver (principal); R18.8 Other ascites; K72.90 Hepatic failure, unspecified without coma; Z88.2 Allergy status to sulfonamides; Z88.5 Allergy status to narcotic agent; Z88.6 Allergy status to analgesic agent; Z88.8 Allergy status to other drugs, medicaments and biological substances; Z91.018 Allergy to other foods; Z91.048 Other nonmedicinal substance allergy status
CPT/HCPCS: 49083; 80053; 82042; 83735; 84157; 85025; 85060; 85610; 85730; 87070; 87205; 89051; J1642; P9047

== ENCOUNTER 2021-12-23 09:49 | Day surgery (SDC) | payer OTHER ==
[2021-12-22 07:23] VITALS: BMI 26.6
[2021-12-23] MEDS ORDERED: Albumin 25% 200 ML ONE (10:01)
[2021-12-23] MEDS ORDERED: Lidocaine 1% PF 5 ML VIAL ONE (10:01)
[2021-12-23] MEDS ORDERED: Sodium Bicarbonate 2.5 MEQ/5 ML VIAL ONE (10:01)
[2021-12-23 12:27] LABS: RBC Count-Automated (BF) 38 /cu.mm; WBC/Nucleated-Auto (BF) 56 /cu.mm
[2021-12-23 12:45] LABS: BF Color White; Body Fluid Source Ascites Body Fluid; Clarity Hazy (Clear); Tube # EDTA
[2021-12-23 12:47] LABS: BF Segmented Neutrophils 9 %; Cell Count Non Hematic 51 %; Lymphocytes 40 %
[2021-12-23 15:14] VITALS: BP 151/40; TEMP 97.5
== END 2021-12-23 11:42 | disposition home or self-care (01) ==
LOC: ULT 09:49
PROVIDERS: ATTEND Internal Medicine Gastroenterology
PROC: 0W9G3ZX Drainage of Peritoneal Cavity, Percutaneous Approach, Diagnostic (ICD-10-PCS; principal; 2021-12-23)
DX: K74.60 Unspecified cirrhosis of liver (principal); R18.8 Other ascites; K72.90 Hepatic failure, unspecified without coma; Z87.891 Personal history of nicotine dependence; Z79.4 Long term (current) use of insulin; Z79.899 Other long term (current) drug therapy; Z88.2 Allergy status to sulfonamides; Z88.5 Allergy status to narcotic agent; Z88.6 Allergy status to analgesic agent; Z88.8 Allergy status to other drugs, medicaments and biological substances; Z91.018 Allergy to other foods; Z91.048 Other nonmedicinal substance allergy status
CPT/HCPCS: 49083; 82042; 84157; 85060; 87070; 87205; 89051; J1642; P9047

== ENCOUNTER 2021-12-29 10:20 | Outpatient (CLI) | payer OTHER | END 2021-12-29 10:21 | disposition home or self-care (01) | LOC: BICULT 10:20 | PROVIDERS: ATTEND Physician Assistant Medical | DX: K74.60 Unspecified cirrhosis of liver (principal); K72.90 Hepatic failure, unspecified without coma; R10.33 Periumbilical pain; D62 Acute posthemorrhagic anemia; R18.8 Other ascites; K31.819 Angiodysplasia of stomach and duodenum without bleeding | CPT/HCPCS: 76705 ==

== ENCOUNTER 2021-12-30 10:25 | Day surgery (SDC) | payer OTHER ==
[2021-12-26 13:36] VITALS: BMI 26.6
[2021-12-30] MEDS ORDERED: Lidocaine 1% PF 5 ML VIAL ONE (10:26)
[2021-12-30] MEDS ORDERED: Sodium Bicarbonate 2.5 MEQ/5 ML VIAL ONE (10:26)
[2021-12-30] MEDS ORDERED: Albumin 25% 200 ML ONE (10:26)
[2021-12-30 13:33] LABS: #Eosinphils 0.2 thou/uL (0.0-0.7); #Lymphocytes 0.5 thou/uL (1.20-3.40); #Monocytes 0.6 thou/uL (0.11-0.59); %Basophils 0.9 % (0.0-1.0); %Eosinophils 4.8 % (0.0-10.0); %Lymphocytes 10.3 % (21.0-51.0); %Monocytes 13.3 % (0.0-10.0); %Neutrophils 70.7 % (42.0-75.0); Hemoglobin 8.9 g/dL (12.0-16.0); Mean Corpuscular Hemoglobin 30.4 pg (27.0-31.0); Mean Corpuscular Volume 95.1 fL (78.0-98.0); Mean Platelet Volume 6.6 fL (7.4-10.4); Platelet Count 59 thou/uL (130-400); RBC Distribution Width 13.2 % (11.5-14.5); Red Blood Cell (RBC) Count 2.91 mill/uL (4.20-5.40); White Blood Cell (WBC) Count 4.3 thou/uL (4.8-10.8)
[2021-12-30 13:48] LABS: INR-International Normal Ratio 1.4; Prothrombin Time 17.8 sec (12.0-14.7)
[2021-12-30 14:52] LABS: RBC Count-Automated (BF) 56 /cu.mm; WBC/Nucleated-Auto (BF) 9 /cu.mm
[2021-12-30 15:16] LABS: Body Fluid Source Ascites Body Fluid
[2021-12-30 15:17] LABS: Tube # EDTA
[2021-12-30 15:18] LABS: Clarity Hazy (Clear)
[2021-12-30 15:27] LABS: Cell Count Non Hematic 36 %; Eosinophils 1 %; Lymphocytes 63 %
[2021-12-30 20:53] LABS: ALT (SGPT) 18 U/L (8-55); AST (SGOT) 26 U/L (5-34); Albumin 3.2 g/dL (3.5-5.0); Alkaline Phosphatase 90 U/L (40-110); Anion Gap 14 mmol/L (10-20); BUN (Urea Nitrogen) 45 mg/dL (9.8-20.1); Calc. Creatinine Clearance 39 mL/min (70-130); Calcium 8.2 mg/dL (7.8-10.44); Carbon Dioxide 17 mmol/L (22-29); Chloride 107 mmol/L (98-107); Globulin 2.3 g/dL (2.4-3.5); Glucose 218 mg/dL (70-105); Potassium 3.7 mmol/L (3.5-5.1); Protein, Total 5.5 g/dL (6.0-8.3); Sodium 134 mmol/L (136-145)
== END 2021-12-30 12:07 | disposition home or self-care (01) ==
LOC: ULT 10:25
PROVIDERS: ATTEND Internal Medicine Gastroenterology
PROC: 0W9G3ZX Drainage of Peritoneal Cavity, Percutaneous Approach, Diagnostic (ICD-10-PCS; principal; 2021-12-30)
DX: K74.60 Unspecified cirrhosis of liver (principal); R18.8 Other ascites; K72.90 Hepatic failure, unspecified without coma; Z79.4 Long term (current) use of insulin; Z79.899 Other long term (current) drug therapy; Z88.2 Allergy status to sulfonamides; Z88.5 Allergy status to narcotic agent; Z88.6 Allergy status to analgesic agent; Z88.8 Allergy status to other drugs, medicaments and biological substances; Z91.018 Allergy to other foods; Z91.048 Other nonmedicinal substance allergy status
CPT/HCPCS: 49083; 80053; 82042; 83735; 84157; 85025; 85060; 85610; 87070; 87205; 89051; J1642; P9047

== ENCOUNTER 2022-01-06 10:00 | Day surgery (SDC) | payer OTHER ==
[2022-01-05 13:41] VITALS: BMI 25.8
[2022-01-06] MEDS ORDERED: Sodium Bicarbonate 2.5 MEQ/5 ML VIAL ONE (10:06)
[2022-01-06] MEDS ORDERED: Lidocaine 1% PF 5 ML VIAL ONE (10:06)
[2022-01-06] MEDS ORDERED: Albumin 25% 200 ML ONE (10:06)
[2022-01-06 11:45] VITALS: BP 103/54; TEMP 97.8
[2022-01-06 13:05] LABS: RBC Count-Automated (BF) 28 /cu.mm; WBC/Nucleated-Auto (BF) 9 /cu.mm
[2022-01-06 13:21] LABS: BF Color Colorless; Body Fluid Source Ascites Body Fluid; Clarity Hazy (Clear); Tube # EDTA
[2022-01-06 13:27] LABS: BF Segmented Neutrophils 5 %; Cell Count Non Hematic 72 %; Lymphocytes 23 %
== END 2022-01-06 11:40 | disposition home or self-care (01) ==
LOC: ULT 10:00
PROVIDERS: ATTEND Internal Medicine Gastroenterology
PROC: 0W9G3ZX Drainage of Peritoneal Cavity, Percutaneous Approach, Diagnostic (ICD-10-PCS; principal; 2022-01-06)
DX: K74.60 Unspecified cirrhosis of liver (principal); R18.8 Other ascites; K72.90 Hepatic failure, unspecified without coma; K65.2 Spontaneous bacterial peritonitis; Z87.891 Personal history of nicotine dependence; Z79.2 Long term (current) use of antibiotics; Z79.4 Long term (current) use of insulin; Z79.899 Other long term (current) drug therapy; Z88.2 Allergy status to sulfonamides; Z88.5 Allergy status to narcotic agent; Z88.6 Allergy status to analgesic agent; Z88.8 Allergy status to other drugs, medicaments and biological substances; Z91.018 Allergy to other foods; Z91.048 Other nonmedicinal substance allergy status
CPT/HCPCS: 49083; 82042; 84157; 85060; 87070; 87205; 89051; J1642; P9047

== ENCOUNTER 2022-01-13 09:07 | Inpatient (IN) | payer OTHER ==
[2022-01-13] MEDS ORDERED: Octreotide Acetate 100 MCG/ML VIAL ONE (09:18)
[2022-01-13] MEDS ORDERED: Pantoprazole 40 MG VIAL ONE (09:18)
[2022-01-13] MEDS ORDERED: cefTRIAXone\\ROCEPHIN 2 GM VIAL ONE (09:43)
[2022-01-13] MEDS ORDERED: Octreotide Acetate 1,250 MCG in Sodium Chloride 0.9% 250 ML 250 ML IVPB SCH (09:45)
[2022-01-13 09:57] LABS: ALT (SGPT) 20 U/L (8-55); AST (SGOT) 24 U/L (5-34); Albumin 3.2 g/dL (3.5-5.0); Alkaline Phosphatase 87 U/L (40-110); Anion Gap 12 mmol/L (10-20); BUN (Urea Nitrogen) 38 mg/dL (9.8-20.1); Bilirubin, Total 1.9 mg/dL (0.2-1.2); Calc. Creatinine Clearance 0 mL/min (70-130); Calcium 8.4 mg/dL (7.8-10.44); Carbon Dioxide 17 mmol/L (22-29); Chloride 108 mmol/L (98-107); Globulin 2.3 g/dL (2.4-3.5); Glucose 198 mg/dL (70-105); INR-International Normal Ratio 1.3; PTT 34.8 sec (22.9-36.1); Potassium 4.1 mmol/L (3.5-5.1); Protein, Total 5.5 g/dL (6.0-8.3); Prothrombin Time 16.5 sec (12.0-14.7); Sodium 133 mmol/L (136-145)
[2022-01-13 10:04] LABS: Hemoglobin 8.3 g/dL (12.0-16.0); Mean Corpuscular Volume 97.1 fL (78.0-98.0); Mean Platelet Volume 6.5 fL (7.4-10.4); Platelet Count 54 thou/uL (130-400); RBC Distribution Width 14.7 % (11.5-14.5); Red Blood Cell (RBC) Count 2.67 mill/uL (4.20-5.40)
[2022-01-13 10:15] LABS: Band 19 % (5-11); Lymphocytes 6 % (21-51); MDiff Complete? YES; Monocytes 6 % (0-10); Neutrophil 68 % (42-75); Platelet Morphology Comment Appears Decreased; Polychromasia SLIGHT = 2-3 cells (100X) (0-2/hpf); Reactive Lymphocytes 1 % (0-10); Schistocytes SLIGHT = 2-5 cells (100X) (0-1/hpf)
[2022-01-13] MEDS ORDERED: Fentanyl 100 MCG/2 ML VIAL ONE (10:29)
[2022-01-13] MEDS ORDERED: Ondansetron PF 4 MG/2 ML Vial IVP PRN (11:50)
[2022-01-13] MEDS ORDERED: Dextrose 50% Abboject 50 ML SYRINGE SLOW IVP PRN (11:50)
[2022-01-13] MEDS ORDERED: Dextrose 5% in Water 1,000 ML IV PRN (11:50)
[2022-01-13] MEDS ORDERED: Ondansetron ODT 4 MG TAB PO PRN (11:50)
[2022-01-13] MEDS ORDERED: HumaLOG 300 UNITS/3 ML VIAL SC PRN (11:54)
[2022-01-13 12:23] LABS: SARS-CoV-2 NAA Rapid Test Not Detected (NotDetected)
[2022-01-13] MEDS ORDERED: Glycopyrrolate 0.2 MG/ML 5 ML SYRINGE ONE (13:22)
[2022-01-13] MEDS ORDERED: PROPOFOL 200 MG/20 ML VIAL ONE (13:22)
[2022-01-13] MEDS ORDERED: Rocuronium Bromide 10 MG/ML (10ML VIAL) ONE (13:22)
[2022-01-13] MEDS ORDERED: Ondansetron PF 4 MG/2 ML Vial ONE (13:22)
[2022-01-13] MEDS ORDERED: Lidocaine 1% PF 5 ML VIAL ONE (13:22)
[2022-01-13] MEDS ORDERED: Esmolol 100 MG/10 ML VIAL ONE (13:22)
[2022-01-13] MEDS ORDERED: Succinylcholine 200 MG/10 ml SYRINGE FS ONE (13:22)
[2022-01-13 14:06] LABS: RBC Count-Automated (BF) 84 /cu.mm; WBC/Nucleated-Auto (BF) 19 /cu.mm
[2022-01-13 14:08] LABS: BF Color Colorless; Body Fluid Source Ascites Body Fluid; Clarity Hazy (Clear); Tube # EDTA
[2022-01-13] MEDS ORDERED: Promethazine HCl 25 MG/ML VIAL IVPB PRN (14:10)
[2022-01-13] MEDS ORDERED: Ondansetron HCl/PF 4 MG/2 ML Vial IVP PRN (14:10)
[2022-01-13] MEDS ORDERED: HYDROmorphone 2 MG/ML VIAL SLOW IVP PRN (14:10)
[2022-01-13] MEDS ORDERED: Promethazine HCl 25 MG/ML VIAL IM PRN (14:10)
[2022-01-13] MEDS ORDERED: ESTRADIOL 10 MCG VAG SCH (14:15)
[2022-01-13 14:25] LABS: BF Segmented Neutrophils 17 %; Cell Count Non Hematic 48 %; Lymphocytes 34 %
[2022-01-13 16:39] VITALS: BMI 28.8
[2022-01-13] MEDS: HumaLOG 300 UNITS/3 ML VIAL SC SCH (18:07)
[2022-01-13] MEDS: Vancomycin 25 MG/ML Oral SOLN PO SCH ×2 (18:08→23:37)
[2022-01-13] MEDS: traMADol HCl 50 MG TAB PO PRN (19:29)
[2022-01-13] MEDS: Pantoprazole 40 MG VIAL IVP SCH (21:18)
[2022-01-13] MEDS: Spironolactone 100 MG TAB PO SCH (21:18)
[2022-01-13] MEDS: Ferrous Sulfate 325 MG TAB PO SCH (21:18)
[2022-01-13] MEDS: Cholecalciferol 1,000 UNITS (25 MCG) TAB PO SCH (21:19)
[2022-01-13] MEDS: Loratadine 10 MG TAB PO SCH (21:19)
[2022-01-13] MEDS: Furosemide 40 MG TAB PO SCH (21:19)
[2022-01-13] MEDS: Cyclobenzaprine 10 MG TAB PO SCH (21:19)
[2022-01-13] MEDS: busPIRone HCl 10 MG TAB PO SCH (21:19)
[2022-01-13] MEDS: Fluticasone Propionate Nasal Spray 16 gm Bottle NASAL SCH (21:35)
[2022-01-13 21:42] LABS: Hemoglobin 7.8 g/dL (12.0-16.0); Mean Corpuscular Hemoglobin 30.3 pg (27.0-31.0); Mean Corpuscular Volume 97.6 fL (78.0-98.0); Mean Platelet Volume 11.3 fL (7.4-10.4); Platelet Count 56 thou/uL (130-400); RBC Distribution Width 14.6 % (11.5-14.5); Red Blood Cell (RBC) Count 2.59 mill/uL (4.20-5.40); White Blood Cell (WBC) Count 8.5 thou/uL (4.8-10.8)
[2022-01-13] MEDS: Melatonin 3 MG TAB PO PRN (22:19)
[2022-01-14 04:42] LABS: #Basophils 0.1 thou/uL (0.0-0.2); #Eosinphils 0.3 thou/uL (0.0-0.7); #Lymphocytes 0.6 thou/uL (1.20-3.40); #Monocytes 0.6 thou/uL (0.11-0.59); #Neutrophils 3.8 thou/uL (1.40-6.50); %Eosinophils 5.2 % (0.0-10.0); %Lymphocytes 11.3 % (21.0-51.0); %Monocytes 10.4 % (0.0-10.0); %Neutrophils 72.2 % (42.0-75.0); Hemoglobin 7.5 g/dL (12.0-16.0); Mean Corpuscular HGB CONC 31.2 g/dL (32.0-36.0); Mean Corpuscular Hemoglobin 30.4 pg (27.0-31.0); Mean Corpuscular Volume 97.5 fL (78.0-98.0); Mean Platelet Volume 11.5 fL (7.4-10.4); Platelet Count 50 thou/uL (130-400); RBC Distribution Width 14.5 % (11.5-14.5); Red Blood Cell (RBC) Count 2.47 mill/uL (4.20-5.40); White Blood Cell (WBC) Count 5.3 thou/uL (4.8-10.8)
[2022-01-14 05:03] LABS: ALT (SGPT) 19 U/L (8-55); AST (SGOT) 24 U/L (5-34); Albumin 2.8 g/dL (3.5-5.0); Alkaline Phosphatase 71 U/L (40-110); Anion Gap 12 mmol/L (10-20); BUN (Urea Nitrogen) 38 mg/dL (9.8-20.1); Bilirubin, Total 1.8 mg/dL (0.2-1.2); Calc. Creatinine Clearance 38 mL/min (70-130); Carbon Dioxide 17 mmol/L (22-29); Chloride 109 mmol/L (98-107); Globulin 2.2 g/dL (2.4-3.5); Glucose 137 mg/dL (70-105); Potassium 4.3 mmol/L (3.5-5.1); Sodium 134 mmol/L (136-145)
[2022-01-14] MEDS: Vancomycin 25 MG/ML Oral SOLN PO SCH ×3 (06:16→18:36)
[2022-01-14] MEDS: Ferrous Sulfate 325 MG TAB PO SCH ×3 (09:18→21:51)
[2022-01-14] MEDS: Magnesium Oxide 250 MG TAB PO SCH (09:18)
[2022-01-14] MEDS: busPIRone HCl 10 MG TAB PO SCH ×2 (09:18→21:51)
[2022-01-14] MEDS: Cyanocobalamin (Vitamin B-12) 1,000 MCG TAB PO SCH (09:18)
[2022-01-14] MEDS: Spironolactone 100 MG TAB PO SCH ×2 (09:18→21:51)
[2022-01-14] MEDS: Furosemide 40 MG TAB PO SCH ×2 (09:18→21:51)
[2022-01-14] MEDS: Cholecalciferol 1,000 UNITS (25 MCG) TAB PO SCH ×2 (09:18→21:51)
[2022-01-14] MEDS: Bupropion 150 MG XL TAB PO SCH (09:18)
[2022-01-14] MEDS: Pantoprazole 40 MG VIAL IVP SCH ×2 (09:19→21:50)
[2022-01-14] MEDS: Fluticasone Propionate Nasal Spray 16 gm Bottle NASAL SCH ×2 (09:19→21:51)
[2022-01-14] MEDS: HumaLOG 300 UNITS/3 ML VIAL SC SCH ×3 (09:19→17:59)
[2022-01-14] MEDS: Insulin Glargine 30 UNITS/0.3 ML VIAL SC SCH (09:19)
[2022-01-14] MEDS: Folic Acid 1 MG TAB PO SCH (09:19)
[2022-01-14] MEDS ORDERED: Lidocaine 1% PF 5 ML VIAL ONE (12:49)
[2022-01-14] MEDS ORDERED: Sodium Bicarbonate 2.5 MEQ/5 ML VIAL ONE (12:49)
[2022-01-14] MEDS: Midodrine HCl 5 MG TAB PO SCH (16:22)
[2022-01-14] MEDS: traMADol HCl 50 MG TAB PO PRN (18:36)
[2022-01-14 19:09] LABS: Hemoglobin 7.8 g/dL (12.0-16.0)
[2022-01-14] MEDS: Loratadine 10 MG TAB PO SCH (21:50)
[2022-01-14] MEDS: Rifaximin 550 MG TAB PO SCH (21:51)
[2022-01-14] MEDS: Cyclobenzaprine 10 MG TAB PO SCH (21:51)
[2022-01-14] MEDS: Melatonin 3 MG TAB PO PRN (21:51)
[2022-01-15] MEDS: traMADol HCl 50 MG TAB PO PRN ×2 (00:55→11:44)
[2022-01-15] MEDS: Vancomycin 25 MG/ML Oral SOLN PO SCH ×3 (01:09→11:44)
[2022-01-15 05:42] LABS: #Basophils 0.1 thou/uL (0.0-0.2); #Eosinphils 0.3 thou/uL (0.0-0.7); #Monocytes 0.6 thou/uL (0.11-0.59); #Neutrophils 3.2 thou/uL (1.40-6.50); %Basophils 1.1 % (0.0-1.0); %Eosinophils 6.2 % (0.0-10.0); %Lymphocytes 19.6 % (21.0-51.0); %Monocytes 10.9 % (0.0-10.0); %Neutrophils 62.1 % (42.0-75.0); Hemoglobin 7.6 g/dL (12.0-16.0); Mean Corpuscular HGB CONC 31.3 g/dL (32.0-36.0); Mean Corpuscular Hemoglobin 30.8 pg (27.0-31.0); Mean Corpuscular Volume 98.4 fL (78.0-98.0); Mean Platelet Volume 9.8 fL (7.4-10.4); Platelet Count 67 thou/uL (130-400); RBC Distribution Width 14.6 % (11.5-14.5); Red Blood Cell (RBC) Count 2.47 mill/uL (4.20-5.40); White Blood Cell (WBC) Count 5.2 thou/uL (4.8-10.8)
[2022-01-15 05:57] LABS: ALT (SGPT) 17 U/L (8-55); AST (SGOT) 23 U/L (5-34); Albumin 2.8 g/dL (3.5-5.0); Alkaline Phosphatase 78 U/L (40-110); Anion Gap 12 mmol/L (10-20); BUN (Urea Nitrogen) 37 mg/dL (9.8-20.1); Bilirubin, Total 0.8 mg/dL (0.2-1.2); Calc. Creatinine Clearance 37 mL/min (70-130); Calcium 7.7 mg/dL (7.8-10.44); Carbon Dioxide 17 mmol/L (22-29); Chloride 116 mmol/L (98-107); Globulin 2.2 g/dL (2.4-3.5); Potassium 4.5 mmol/L (3.5-5.1); Sodium 140 mmol/L (136-145)
[2022-01-15 06:03] LABS: Glucose 57 mg/dL (70-105)
[2022-01-15] MEDS: Cholecalciferol 1,000 UNITS (25 MCG) TAB PO SCH (09:20)
[2022-01-15] MEDS: Midodrine HCl 5 MG TAB PO SCH ×2 (09:20→11:12)
[2022-01-15] MEDS: busPIRone HCl 10 MG TAB PO SCH (09:20)
[2022-01-15] MEDS: Magnesium Oxide 250 MG TAB PO SCH (09:20)
[2022-01-15] MEDS: Spironolactone 100 MG TAB PO SCH (09:21)
[2022-01-15] MEDS: Cyanocobalamin (Vitamin B-12) 1,000 MCG TAB PO SCH (09:21)
[2022-01-15] MEDS: Folic Acid 1 MG TAB PO SCH (09:21)
[2022-01-15] MEDS: Ferrous Sulfate 325 MG TAB PO SCH (09:21)
[2022-01-15] MEDS: Furosemide 40 MG TAB PO SCH (09:21)
[2022-01-15] MEDS: Insulin Glargine 30 UNITS/0.3 ML VIAL SC SCH (09:21)
[2022-01-15] MEDS: Bupropion 150 MG XL TAB PO SCH (09:21)
[2022-01-15] MEDS: Fluticasone Propionate Nasal Spray 16 gm Bottle NASAL SCH (09:21)
[2022-01-15] MEDS: Rifaximin 550 MG TAB PO SCH (09:21)
[2022-01-15] MEDS: HumaLOG 300 UNITS/3 ML VIAL SC SCH ×2 (09:22→11:12)
[2022-01-15] MEDS: Pantoprazole 40 MG VIAL IVP SCH (09:37)
[2022-01-15 11:35] VITALS: BP 115/69; TEMP 98.2
== END 2022-01-15 13:50 | disposition home or self-care (01) | DRG 378 ==
LOC: ERS 09:07 → SDC 13:03 → 2NO 15:22
PROVIDERS: ADMIT Family Medicine; ATTEND Family Medicine
PROC: 0W9G3ZZ Drainage of Peritoneal Cavity, Percutaneous Approach (ICD-10-PCS; principal; 2022-01-13)
PROC: 0W3P8ZZ Control Bleeding in Gastrointestinal Tract, Via Natural or Artificial Opening Endoscopic (ICD-10-PCS; 2022-01-13)
PROC: 0W9G3ZZ Drainage of Peritoneal Cavity, Percutaneous Approach (ICD-10-PCS; 2022-01-14)
DX: K31.811 Angiodysplasia of stomach and duodenum with bleeding (principal); K76.6 Portal hypertension; N18.4 Chronic kidney disease, stage 4 (severe); D62 Acute posthemorrhagic anemia; R18.8 Other ascites; K74.60 Unspecified cirrhosis of liver; F41.9 Anxiety disorder, unspecified; J45.909 Unspecified asthma, uncomplicated; K21.9 Gastro-esophageal reflux disease without esophagitis; F32.A Depression, unspecified; E11.22 Type 2 diabetes mellitus with diabetic chronic kidney disease; I12.9 Hypertensive chronic kidney disease with stage 1 through stage 4 chronic kidney disease, or unspecified chronic kidney disease; M48.00 Spinal stenosis, site unspecified; D50.9 Iron deficiency anemia, unspecified; K31.89 Other diseases of stomach and duodenum; B96.89 Other specified bacterial agents as the cause of diseases classified elsewhere; Z20.822 Contact with and (suspected) exposure to COVID-19; Z88.2 Allergy status to sulfonamides; Z88.5 Allergy status to narcotic agent; Z88.8 Allergy status to other drugs, medicaments and biological substances; Z79.51 Long term (current) use of inhaled steroids; Z79.899 Other long term (current) drug therapy; Z79.4 Long term (current) use of insulin; Z90.49 Acquired absence of other specified parts of digestive tract
CPT/HCPCS: 36415; 36416; 49083; 80053; 83605; 85025; 85060; 85610; 85730; 86850; 86900; 86901; 87040; 87070; 87205; 89051; 93005; 96365; 96366; 96367; 96375; 96376; C9113; J0696; J1642; J1815; J2354; J2405; J2704; J3010; J7050; U0002

== ENCOUNTER 2022-01-20 09:03 | Day surgery (SDC) | payer OTHER ==
[2022-01-16 07:35] VITALS: BMI 26.6
[2022-01-20] MEDS ORDERED: Albumin 25% 200 ML ONE (09:29)
[2022-01-20] MEDS ORDERED: Sodium Bicarbonate 2.5 MEQ/5 ML VIAL ONE (09:29)
[2022-01-20] MEDS ORDERED: Lidocaine 1% PF 5 ML VIAL ONE (09:29)
[2022-01-20 12:26] VITALS: BP 109/61
[2022-01-20 12:39] LABS: #Eosinphils 0.2 thou/uL (0.0-0.7); #Lymphocytes 0.4 thou/uL (1.20-3.40); #Monocytes 0.4 thou/uL (0.11-0.59); #Neutrophils 2.2 thou/uL (1.40-6.50); %Basophils 0.6 % (0.0-1.0); %Eosinophils 5.6 % (0.0-10.0); %Lymphocytes 11.5 % (21.0-51.0); %Monocytes 13.1 % (0.0-10.0); %Neutrophils 69.3 % (42.0-75.0); Hemoglobin 6.7 g/dL (12.0-16.0); Mean Corpuscular HGB CONC 31.1 g/dL (32.0-36.0); Mean Corpuscular Volume 96.5 fL (78.0-98.0); Mean Platelet Volume 10.8 fL (7.4-10.4); Platelet Count 48 thou/uL (130-400); Red Blood Cell (RBC) Count 2.24 mill/uL (4.20-5.40); White Blood Cell (WBC) Count 3.2 thou/uL (4.8-10.8)
[2022-01-20] MEDS ORDERED: Albumin 25% 25 GM/100 ML BOT IVPB SCH (12:45)
[2022-01-20 12:57] LABS: ALT (SGPT) 11 U/L (8-55); AST (SGOT) 21 U/L (5-34); Albumin 3.4 g/dL (3.5-5.0); Alkaline Phosphatase 75 U/L (40-110); Anion Gap 10 mmol/L (10-20); BUN (Urea Nitrogen) 27 mg/dL (9.8-20.1); Bilirubin, Total 0.6 mg/dL (0.2-1.2); Calc. Creatinine Clearance 42 mL/min (70-130); Calcium 8.1 mg/dL (7.8-10.44); Carbon Dioxide 21 mmol/L (22-29); Chloride 111 mmol/L (98-107); Glucose 186 mg/dL (70-105); Magnesium 1.9 mg/dL (1.6-2.6); Potassium 3.8 mmol/L (3.5-5.1); Protein, Total 5.4 g/dL (6.0-8.3); Sodium 138 mmol/L (136-145)
[2022-01-20 13:31] LABS: INR-International Normal Ratio 1.5; Prothrombin Time 18.4 sec (12.0-14.7)
[2022-01-20 13:32] LABS: PTT 51.8 sec (22.9-36.1)
[2022-01-20 13:39] LABS: RBC Count-Automated (BF) 28 /cu.mm; WBC/Nucleated-Auto (BF) 19 /cu.mm
[2022-01-20 14:11] LABS: BF Color Colorless; Body Fluid Source Ascites Body Fluid; Clarity Hazy (Clear); Tube # EDTA
[2022-01-20 14:13] LABS: BF Segmented Neutrophils 3 %; Cell Count Non Hematic 73 %; Eosinophils 1 %; Lymphocytes 23 %
== END 2022-01-20 11:45 | disposition home or self-care (01) ==
LOC: ULT 09:03
PROVIDERS: ATTEND Internal Medicine Gastroenterology
PROC: 0W9G3ZX Drainage of Peritoneal Cavity, Percutaneous Approach, Diagnostic (ICD-10-PCS; principal; 2022-01-20)
DX: K74.60 Unspecified cirrhosis of liver (principal); R18.8 Other ascites; Z79.2 Long term (current) use of antibiotics; Z79.4 Long term (current) use of insulin; Z79.899 Other long term (current) drug therapy; Z88.2 Allergy status to sulfonamides; Z88.5 Allergy status to narcotic agent; Z88.6 Allergy status to analgesic agent; Z88.8 Allergy status to other drugs, medicaments and biological substances; Z91.018 Allergy to other foods; Z91.048 Other nonmedicinal substance allergy status
CPT/HCPCS: 49083; 80053; 82042; 83735; 85025; 85060; 85610; 85730; 87070; 87205; 89051; J1642; P9047

== ENCOUNTER 2022-01-27 09:46 | Day surgery (SDC) | payer OTHER ==
[2022-01-27] MEDS ORDERED: Albumin 25% 200 ML ONE (10:24)
[2022-01-27] MEDS ORDERED: Lidocaine 1% PF 5 ML VIAL ONE (10:26)
[2022-01-27 13:08] VITALS: BP 114/71; TEMP 97.9
[2022-01-27 14:39] LABS: RBC Count-Automated (BF) 11 /cu.mm; WBC/Nucleated-Auto (BF) 11 /cu.mm
[2022-01-27 15:46] LABS: BF Color Colorless; Body Fluid Source Ascites Body Fluid; Clarity Hazy (Clear); Tube # EDTA
[2022-01-27 16:07] LABS: Cell Count Non Hematic 62 %; Eosinophils 1 %; Lymphocytes 37 %
== END 2022-01-27 12:20 | disposition home or self-care (01) ==
LOC: ULT 09:46
PROVIDERS: ATTEND Internal Medicine Gastroenterology
PROC: 0W9G3ZX Drainage of Peritoneal Cavity, Percutaneous Approach, Diagnostic (ICD-10-PCS; principal; 2022-01-27)
DX: K74.60 Unspecified cirrhosis of liver (principal); R18.8 Other ascites; J44.9 Chronic obstructive pulmonary disease, unspecified; I12.9 Hypertensive chronic kidney disease with stage 1 through stage 4 chronic kidney disease, or unspecified chronic kidney disease; E11.22 Type 2 diabetes mellitus with diabetic chronic kidney disease; N18.9 Chronic kidney disease, unspecified; Z88.2 Allergy status to sulfonamides; Z88.5 Allergy status to narcotic agent; Z88.6 Allergy status to analgesic agent; Z88.8 Allergy status to other drugs, medicaments and biological substances; Z91.018 Allergy to other foods; Z91.048 Other nonmedicinal substance allergy status
CPT/HCPCS: 49083; 82042; 84157; 85060; 87070; 87205; 89051; J1642; P9047

== ENCOUNTER 2022-01-30 08:59 | Outpatient (CLI) | payer OTHER | END 2022-01-30 09:00 | disposition home or self-care (01) | LOC: LABBT 08:59 | PROVIDERS: ATTEND Internal Medicine Gastroenterology | DX: K31.819 Angiodysplasia of stomach and duodenum without bleeding (principal); K72.90 Hepatic failure, unspecified without coma; K74.60 Unspecified cirrhosis of liver; K65.2 Spontaneous bacterial peritonitis; Z20.822 Contact with and (suspected) exposure to COVID-19 | CPT/HCPCS: U0003; U0005 ==

== ENCOUNTER 2022-02-02 06:49 | Day surgery (SDC) | payer OTHER ==
[2022-01-30 11:19] VITALS: BMI 28.0
[2022-02-02] MEDS ORDERED: Fentanyl 100 MCG/2 ML VIAL ONE (08:37)
[2022-02-02] MEDS ORDERED: Lidocaine 1% PF 5 ML VIAL ONE (08:44)
[2022-02-02] MEDS ORDERED: PROPOFOL 200 MG/20 ML VIAL ONE (08:44)
[2022-02-02] MEDS ORDERED: Glycopyrrolate 0.2 MG/ML 5 ML SYRINGE ONE (08:44)
== END 2022-02-02 09:48 | disposition home or self-care (01) ==
LOC: SDC 06:49
PROVIDERS: ATTEND Internal Medicine Gastroenterology
PROC: 0W3P8ZZ Control Bleeding in Gastrointestinal Tract, Via Natural or Artificial Opening Endoscopic (ICD-10-PCS; principal; 2022-02-02)
DX: K31.811 Angiodysplasia of stomach and duodenum with bleeding (principal); K74.60 Unspecified cirrhosis of liver; K65.2 Spontaneous bacterial peritonitis; B96.89 Other specified bacterial agents as the cause of diseases classified elsewhere; K76.6 Portal hypertension; K31.89 Other diseases of stomach and duodenum; K72.90 Hepatic failure, unspecified without coma; D64.9 Anemia, unspecified; Z87.891 Personal history of nicotine dependence; Z79.2 Long term (current) use of antibiotics; Z79.4 Long term (current) use of insulin; Z79.899 Other long term (current) drug therapy; Z88.2 Allergy status to sulfonamides; Z88.5 Allergy status to narcotic agent; Z88.8 Allergy status to other drugs, medicaments and biological substances; Z91.048 Other nonmedicinal substance allergy status
CPT/HCPCS: J1642; J2704; J3010

== ENCOUNTER 2022-02-03 10:22 | Day surgery (SDC) | payer OTHER ==
[2022-02-03] MEDS ORDERED: Lidocaine 1% PF 5 ML VIAL ONE (10:28)
[2022-02-03] MEDS ORDERED: Albumin 25% 200 ML ONE (10:28)
[2022-02-03] MEDS ORDERED: Sodium Bicarbonate 2.5 MEQ/5 ML VIAL ONE (10:28)
[2022-02-03 12:41] LABS: INR-International Normal Ratio 1.4; Prothrombin Time 17.4 sec (12.0-14.7)
[2022-02-03 12:42] LABS: PTT 70.8 sec (22.9-36.1)
[2022-02-03 12:44] VITALS: BP 104/70; TEMP 98.1; BMI 27.3
[2022-02-03 12:45] LABS: ALT (SGPT) 14 U/L (8-55); AST (SGOT) 26 U/L (5-34); Alkaline Phosphatase 79 U/L (40-110); Anion Gap 11 mmol/L (10-20); BUN (Urea Nitrogen) 29 mg/dL (9.8-20.1); Bilirubin, Total 1.3 mg/dL (0.2-1.2); Calc. Creatinine Clearance 39 mL/min (70-130); Calcium 8.2 mg/dL (7.8-10.44); Carbon Dioxide 21 mmol/L (22-29); Chloride 113 mmol/L (98-107); Globulin 2.2 g/dL (2.4-3.5); Glucose 163 mg/dL (70-105); Magnesium 1.8 mg/dL (1.6-2.6); Potassium 3.9 mmol/L (3.5-5.1); Protein, Total 5.2 g/dL (6.0-8.3); Sodium 141 mmol/L (136-145)
[2022-02-03 13:00] LABS: Band 8 % (5-11); Eosinophils 5 % (0-10); Hemoglobin 8.2 g/dL (12.0-16.0); Lymphocytes 14 % (21-51); MDiff Complete? YES; Mean Corpuscular HGB CONC 31.5 g/dL (32.0-36.0); Mean Corpuscular Hemoglobin 30.5 pg (27.0-31.0); Mean Platelet Volume 6.6 fL (7.4-10.4); Monocytes 10 % (0-10); Neutrophil 58 % (42-75); Platelet Count 50 thou/uL (130-400); Platelet Morphology Comment Appears Decreased; Polychromasia SLIGHT = 2-3 cells (100X) (0-2/hpf); RBC Distribution Width 13.6 % (11.5-14.5); Reactive Lymphocytes 3 % (0-10); Red Blood Cell (RBC) Count 2.69 mill/uL (4.20-5.40); White Blood Cell (WBC) Count 2.9 thou/uL (4.8-10.8)
[2022-02-03 13:29] LABS: WBC/Nucleated-Auto (BF) 45 /cu.mm
[2022-02-03 13:32] LABS: BF Color Colorless; Body Fluid Source Ascites Body Fluid; Clarity Hazy (Clear); Tube # EDTA
[2022-02-03 13:34] LABS: RBC Count-Automated (BF) 0 /cu.mm
[2022-02-03 13:56] LABS: BF Segmented Neutrophils 4 %; Cell Count Non Hematic 76 %; Lymphocytes 20 %
== END 2022-02-03 12:15 | disposition home or self-care (01) ==
LOC: ULT 10:22
PROVIDERS: ATTEND Internal Medicine Gastroenterology
PROC: 0W9G3ZX Drainage of Peritoneal Cavity, Percutaneous Approach, Diagnostic (ICD-10-PCS; principal; 2022-02-03)
DX: K74.60 Unspecified cirrhosis of liver (principal); R18.8 Other ascites; K72.90 Hepatic failure, unspecified without coma; Z87.891 Personal history of nicotine dependence; Z79.899 Other long term (current) drug therapy; Z88.5 Allergy status to narcotic agent; Z88.6 Allergy status to analgesic agent; Z88.8 Allergy status to other drugs, medicaments and biological substances; Z91.018 Allergy to other foods; Z91.048 Other nonmedicinal substance allergy status
CPT/HCPCS: 49083; 80053; 82042; 83735; 85025; 85060; 85610; 85730; 87070; 87205; 89051; J1642; P9047

== ENCOUNTER → 2022-02-10 | Day surgery (SDC) | payer OTHER ==
[2022-02-09 14:21] VITALS: BMI 27.3
[2022-02-10 12:26] VITALS: BP 104/67; TEMP 97.8
[2022-02-10 14:07] LABS: RBC Count-Automated (BF) 506 /cu.mm; WBC/Nucleated-Auto (BF) 11 /cu.mm
[2022-02-10 14:08] LABS: BF Color Colorless; Body Fluid Source Ascites Body Fluid; Clarity Hazy (Clear); Tube # EDTA
[2022-02-10 14:11] LABS: BF Segmented Neutrophils 1 %; Cell Count Non Hematic 64 %; Lymphocytes 35 %
== END | disposition home or self-care (01) ==
LOC: ULT 10:16
PROVIDERS: ATTEND Internal Medicine Gastroenterology
PROC: 0W9G3ZX Drainage of Peritoneal Cavity, Percutaneous Approach, Diagnostic (ICD-10-PCS; principal; 2022-02-10)
DX: K74.60 Unspecified cirrhosis of liver (principal); R18.8 Other ascites; K72.90 Hepatic failure, unspecified without coma; K31.819 Angiodysplasia of stomach and duodenum without bleeding; K65.2 Spontaneous bacterial peritonitis; Z87.891 Personal history of nicotine dependence; Z79.4 Long term (current) use of insulin; Z79.899 Other long term (current) drug therapy; Z88.2 Allergy status to sulfonamides; Z88.5 Allergy status to narcotic agent; Z88.6 Allergy status to analgesic agent; Z88.8 Allergy status to other drugs, medicaments and biological substances; Z91.018 Allergy to other foods; Z91.048 Other nonmedicinal substance allergy status
CPT/HCPCS: 49083; 82042; 84155; 85060; 87070; 87205; 89051; J1642; P9047

== ENCOUNTER 2022-02-17 09:47 | Day surgery (SDC) | payer OTHER ==
[2022-02-16 16:20] VITALS: BMI 26.6
[2022-02-17] MEDS ORDERED: Albumin 25% 200 ML ONE (10:23)
[2022-02-17] MEDS ORDERED: Lidocaine 1% PF 5 ML VIAL ONE (10:23)
[2022-02-17] MEDS ORDERED: Sodium Bicarbonate 2.5 MEQ/5 ML VIAL ONE (10:23)
[2022-02-17 15:14] VITALS: BP 112/65; TEMP 98.2
== END 2022-02-17 12:10 | disposition home or self-care (01) ==
LOC: ULT 09:47
PROVIDERS: ATTEND Internal Medicine Gastroenterology
DX: R18.8 Other ascites (principal); Z88.2 Allergy status to sulfonamides; Z88.5 Allergy status to narcotic agent; Z88.6 Allergy status to analgesic agent; Z88.8 Allergy status to other drugs, medicaments and biological substances; Z91.018 Allergy to other foods; Z91.048 Other nonmedicinal substance allergy status
CPT/HCPCS: 49083; J1642; P9047

== ENCOUNTER 2022-02-24 10:36 | Day surgery (SDC) | payer OTHER ==
[2022-02-24] MEDS ORDERED: Albumin 25% 200 ML ONE (10:38)
[2022-02-24] MEDS ORDERED: Sodium Bicarbonate 2.5 MEQ/5 ML VIAL ONE (10:38)
[2022-02-24] MEDS ORDERED: Lidocaine 1% PF 5 ML VIAL ONE (10:38)
[2022-02-24 11:47] LABS: INR-International Normal Ratio 1.4; Prothrombin Time 17.1 sec (12.0-14.7)
[2022-02-24 11:52] LABS: ALT (SGPT) 20 U/L (8-55); AST (SGOT) 30 U/L (5-34); Albumin 3.2 g/dL (3.5-5.0); Alkaline Phosphatase 84 U/L (40-110); Anion Gap 13 mmol/L (10-20); BUN (Urea Nitrogen) 25 mg/dL (9.8-20.1); Bilirubin, Total 2.1 mg/dL (0.2-1.2); Calc. Creatinine Clearance 0 mL/min (70-130); Calcium 8.5 mg/dL (7.8-10.44); Carbon Dioxide 21 mmol/L (22-29); Chloride 113 mmol/L (98-107); Estimated GFR 40; Globulin 2.3 g/dL (2.4-3.5); Glucose 157 mg/dL (70-105); Potassium 3.7 mmol/L (3.5-5.1); Protein, Total 5.5 g/dL (6.0-8.3); Sodium 143 mmol/L (136-145)
[2022-02-24 12:32] VITALS: BP 125/74; TEMP 98.1; BMI 26.6
[2022-02-24 12:44] LABS: Mean Corpuscular HGB CONC 32.4 g/dL (32.0-36.0); Mean Corpuscular Hemoglobin 29.6 pg (27.0-31.0); Mean Corpuscular Volume 91.4 fL (78.0-98.0); Mean Platelet Volume 6.5 fL (7.4-10.4); Platelet Count 32 thou/uL (130-400); RBC Distribution Width 13.4 % (11.5-14.5); Red Blood Cell (RBC) Count 3.05 mill/uL (4.20-5.40); White Blood Cell (WBC) Count 2.5 thou/uL (4.8-10.8)
[2022-02-24 13:11] LABS: Band 5 % (5-11); Eosinophils 10 % (0-10); Lymphocytes 18 % (21-51); MDiff Complete? YES; Monocytes 9 % (0-10); Neutrophil 58 % (42-75); Ovalocytes SLIGHT = 2-5 cells (100X) (0-1/hpf); Platelet Morphology Comment Appears Decreased; Polychromasia SLIGHT = 2-3 cells (100X) (0-2/hpf); Schistocytes SLIGHT = 2-5 cells (100X) (0-1/hpf); Tear Drops SLIGHT = 2-5 cells (100X) (0-1/hpf)
[2022-02-24 17:14] LABS: RBC Count-Automated (BF) 1063 /cu.mm; WBC/Nucleated-Auto (BF) 282 /cu.mm
[2022-02-24 17:23] LABS: BF Color Yellow; Body Fluid Source Ascites Body Fluid; Clarity Hazy (Clear); Tube # EDTA
[2022-02-24 17:26] LABS: Cell Count Non Hematic 59 %; Eosinophils 1 %; Lymphocytes 40 %
== END 2022-02-24 12:30 | disposition home or self-care (01) ==
LOC: ULT 10:36
PROVIDERS: ATTEND Internal Medicine Gastroenterology
PROC: 0W9G3ZZ Drainage of Peritoneal Cavity, Percutaneous Approach (ICD-10-PCS; principal; 2022-02-24)
DX: K74.60 Unspecified cirrhosis of liver (principal); R18.8 Other ascites; K31.819 Angiodysplasia of stomach and duodenum without bleeding; K72.90 Hepatic failure, unspecified without coma; Z79.4 Long term (current) use of insulin; Z79.899 Other long term (current) drug therapy; Z88.0 Allergy status to penicillin; Z88.2 Allergy status to sulfonamides; Z88.5 Allergy status to narcotic agent; Z88.6 Allergy status to analgesic agent; Z88.8 Allergy status to other drugs, medicaments and biological substances; Z91.018 Allergy to other foods; Z91.048 Other nonmedicinal substance allergy status
CPT/HCPCS: 49083; 80053; 82042; 83735; 84157; 85025; 85060; 85610; 87070; 87205; 89051; J1642; P9047

== ENCOUNTER 2022-03-03 09:56 | Day surgery (SDC) | payer OTHER ==
[2022-03-03] MEDS ORDERED: Albumin 25% 200 ML ONE (10:08)
[2022-03-03] MEDS ORDERED: Sodium Bicarbonate 2.5 MEQ/5 ML VIAL ONE (10:08)
[2022-03-03] MEDS ORDERED: Lidocaine 1% PF 5 ML VIAL ONE (10:08)
[2022-03-03 13:16] VITALS: BP 120/62; TEMP 98.8
== END 2022-03-03 11:15 | disposition home or self-care (01) ==
LOC: ULT 09:56
PROVIDERS: ATTEND Internal Medicine Gastroenterology
PROC: 0W9G3ZZ Drainage of Peritoneal Cavity, Percutaneous Approach (ICD-10-PCS; principal; 2022-03-03)
DX: K74.60 Unspecified cirrhosis of liver (principal); R18.8 Other ascites; Z88.2 Allergy status to sulfonamides; Z88.5 Allergy status to narcotic agent; Z88.6 Allergy status to analgesic agent; Z88.8 Allergy status to other drugs, medicaments and biological substances; Z91.018 Allergy to other foods; Z91.048 Other nonmedicinal substance allergy status
CPT/HCPCS: 49083; J1642; P9047

== ENCOUNTER 2022-03-10 09:57 | Day surgery (SDC) | payer OTHER ==
[2022-03-10] MEDS ORDERED: Sodium Bicarbonate 2.5 MEQ/5 ML VIAL ONE (10:02)
[2022-03-10] MEDS ORDERED: Albumin 25% 200 ML ONE (10:02)
[2022-03-10] MEDS ORDERED: Lidocaine 1% PF 5 ML VIAL ONE (10:02)
[2022-03-10 11:00] LABS: ALT (SGPT) 22 U/L (8-55); AST (SGOT) 27 U/L (5-34); Albumin 2.9 g/dL (3.5-5.0); Alkaline Phosphatase 105 U/L (40-110); Anion Gap 11 mmol/L (10-20); BUN (Urea Nitrogen) 27 mg/dL (9.8-20.1); Bilirubin, Total 1.2 mg/dL (0.2-1.2); Calc. Creatinine Clearance 48 mL/min (70-130); Calcium 8.4 mg/dL (7.8-10.44); Carbon Dioxide 23 mmol/L (22-29); Chloride 108 mmol/L (98-107); Estimated GFR 37; Globulin 2.2 g/dL (2.4-3.5); Glucose 274 mg/dL (70-105); Protein, Total 5.1 g/dL (6.0-8.3); Sodium 138 mmol/L (136-145)
[2022-03-10 12:19] VITALS: BP 112/64; TEMP 98; BMI 25.0
[2022-03-10 12:26] LABS: #Eosinphils 0.3 thou/uL (0.0-0.7); #Lymphocytes 0.5 thou/uL (1.20-3.40); #Monocytes 0.5 thou/uL (0.11-0.59); #Neutrophils 2.7 thou/uL (1.40-6.50); %Basophils 0.9 % (0.0-1.0); %Eosinophils 8.1 % (0.0-10.0); %Lymphocytes 11.1 % (21.0-51.0); %Monocytes 12.8 % (0.0-10.0); Hemoglobin 9.4 g/dL (12.0-16.0); Mean Corpuscular HGB CONC 31.9 g/dL (32.0-36.0); Mean Corpuscular Hemoglobin 29.1 pg (27.0-31.0); Mean Corpuscular Volume 91.2 fL (78.0-98.0); Mean Platelet Volume 14.4 fL (7.4-10.4); Platelet Count 52 thou/uL (130-400); RBC Distribution Width 14.1 % (11.5-14.5); Red Blood Cell (RBC) Count 3.23 mill/uL (4.20-5.40); White Blood Cell (WBC) Count 4.1 thou/uL (4.8-10.8)
[2022-03-10 14:03] LABS: BF Color Yellow; Body Fluid Source Ascites Body Fluid; Clarity Hazy (Clear); RBC Count-Automated (BF) 43 /cu.mm; Tube # EDTA; WBC/Nucleated-Auto (BF) 22 /cu.mm
[2022-03-10 14:06] LABS: BF Segmented Neutrophils 1 %; Cell Count Non Hematic 68 %; Lymphocytes 31 %
== END 2022-03-10 11:30 | disposition home or self-care (01) ==
LOC: ULT 09:57
PROVIDERS: ATTEND Internal Medicine Gastroenterology
PROC: 0W9G3ZX Drainage of Peritoneal Cavity, Percutaneous Approach, Diagnostic (ICD-10-PCS; principal; 2022-03-10)
DX: K74.60 Unspecified cirrhosis of liver (principal); R18.8 Other ascites; Z79.2 Long term (current) use of antibiotics; Z79.4 Long term (current) use of insulin; Z79.899 Other long term (current) drug therapy; Z88.2 Allergy status to sulfonamides; Z88.5 Allergy status to narcotic agent; Z88.6 Allergy status to analgesic agent; Z88.8 Allergy status to other drugs, medicaments and biological substances; Z91.018 Allergy to other foods; Z91.048 Other nonmedicinal substance allergy status
CPT/HCPCS: 49083; 80053; 82042; 83735; 84157; 85025; 85060; 87070; 87205; 89051; J1642; P9047

== ENCOUNTER 2022-03-17 10:09 | Day surgery (SDC) | payer OTHER ==
[2022-03-16 08:52] VITALS: BMI 26.6
[2022-03-17] MEDS ORDERED: Sodium Bicarbonate 2.5 MEQ/5 ML VIAL ONE (10:16)
[2022-03-17] MEDS ORDERED: Albumin 25% 200 ML ONE (10:16)
[2022-03-17] MEDS ORDERED: Lidocaine 1% PF 5 ML VIAL ONE (10:16)
[2022-03-17] MEDS ORDERED: Albumin 25% 25 GM/100 ML BOT IVPB SCH (11:45)
[2022-03-17 12:14] VITALS: BP 106/53
[2022-03-17 13:44] LABS: RBC Count-Automated (BF) 11 /cu.mm; WBC/Nucleated-Auto (BF) 32 /cu.mm
[2022-03-17 14:07] LABS: BF Color Colorless; Body Fluid Source Ascites Body Fluid; Clarity Hazy (Clear); Tube # EDTA
[2022-03-17 14:10] LABS: BF Segmented Neutrophils 1 %; Cell Count Non Hematic 85 %; Lymphocytes 13 %
== END 2022-03-17 11:55 | disposition home or self-care (01) ==
LOC: ULT 10:09
PROVIDERS: ATTEND Internal Medicine Gastroenterology
PROC: 0W9G3ZZ Drainage of Peritoneal Cavity, Percutaneous Approach (ICD-10-PCS; principal; 2022-03-17)
DX: K74.60 Unspecified cirrhosis of liver (principal); R18.8 Other ascites; Z88.2 Allergy status to sulfonamides; Z88.5 Allergy status to narcotic agent; Z88.6 Allergy status to analgesic agent; Z88.8 Allergy status to other drugs, medicaments and biological substances; Z91.018 Allergy to other foods; Z91.048 Other nonmedicinal substance allergy status
CPT/HCPCS: 49083; 82042; 84157; 85060; 87070; 87205; 89051; J1642; P9047

== ENCOUNTER 2022-03-24 10:36 | Day surgery (SDC) | payer OTHER ==
[2022-03-23 13:57] VITALS: BMI 26.6
[2022-03-24] MEDS ORDERED: Lidocaine 1% PF 5 ML VIAL ONE (10:54)
[2022-03-24] MEDS ORDERED: Sodium Bicarbonate 2.5 MEQ/5 ML VIAL ONE (10:54)
[2022-03-24] MEDS ORDERED: Albumin 25% 200 ML ONE (10:54)
[2022-03-24 12:33] LABS: INR-International Normal Ratio 1.4; Prothrombin Time 17.4 sec (12.0-14.7)
[2022-03-24 12:45] LABS: ALT (SGPT) 18 U/L (8-55); AST (SGOT) 29 U/L (5-34); Alkaline Phosphatase 98 U/L (40-110); Anion Gap 11 mmol/L (10-20); BUN (Urea Nitrogen) 33 mg/dL (9.8-20.1); Bilirubin, Total 1.4 mg/dL (0.2-1.2); Calc. Creatinine Clearance 43 mL/min (70-130); Calcium 8.5 mg/dL (7.8-10.44); Carbon Dioxide 24 mmol/L (22-29); Chloride 107 mmol/L (98-107); Estimated GFR 32; Globulin 2.1 g/dL (2.4-3.5); Glucose 85 mg/dL (70-105); Magnesium 1.9 mg/dL (1.6-2.6); Potassium 3.5 mmol/L (3.5-5.1); Protein, Total 5.1 g/dL (6.0-8.3); Sodium 138 mmol/L (136-145)
[2022-03-24 12:47] VITALS: BP 107/56; TEMP 98.2
[2022-03-24 13:14] LABS: Anisocytosis SLIGHT = 6-15 cells (100X) (0-5/hpf); Eosinophils 6 % (0-10); Hemoglobin 8.8 g/dL (12.0-16.0); Lymphocytes 12 % (21-51); MDiff Complete? YES; Mean Corpuscular HGB CONC 32.1 g/dL (32.0-36.0); Mean Corpuscular Hemoglobin 29.7 pg (27.0-31.0); Mean Corpuscular Volume 92.4 fL (78.0-98.0); Mean Platelet Volume 6.7 fL (7.4-10.4); Monocytes 8 % (0-10); Neutrophil 72 % (42-75); Ovalocytes SLIGHT = 2-5 cells (100X) (0-1/hpf); Platelet Count 58 thou/uL (130-400); Platelet Morphology Comment Appears Decreased; Polychromasia SLIGHT = 2-3 cells (100X) (0-2/hpf); RBC Distribution Width 15.5 % (11.5-14.5); Red Blood Cell (RBC) Count 2.97 mill/uL (4.20-5.40); White Blood Cell (WBC) Count 4.5 thou/uL (4.8-10.8)
[2022-03-24 14:26] LABS: BF Color Colorless; Body Fluid Source Ascites Body Fluid; Clarity Hazy (Clear); RBC Count-Automated (BF) 65 /cu.mm; Tube # EDTA; WBC/Nucleated-Auto (BF) 43 /cu.mm
[2022-03-24 14:29] LABS: BF Segmented Neutrophils 1 %; Cell Count Non Hematic 67 %; Lymphocytes 32 %
== END 2022-03-24 12:30 | disposition home or self-care (01) ==
LOC: ULT 10:36
PROVIDERS: ATTEND Internal Medicine Gastroenterology
PROC: 0W9G3ZX Drainage of Peritoneal Cavity, Percutaneous Approach, Diagnostic (ICD-10-PCS; principal; 2022-03-24)
DX: K74.60 Unspecified cirrhosis of liver (principal); R18.8 Other ascites; K72.90 Hepatic failure, unspecified without coma; K65.2 Spontaneous bacterial peritonitis; Z79.2 Long term (current) use of antibiotics; Z79.4 Long term (current) use of insulin; Z79.899 Other long term (current) drug therapy; Z88.2 Allergy status to sulfonamides; Z88.5 Allergy status to narcotic agent; Z88.6 Allergy status to analgesic agent; Z88.8 Allergy status to other drugs, medicaments and biological substances; Z91.018 Allergy to other foods; Z91.048 Other nonmedicinal substance allergy status
CPT/HCPCS: 49083; 80053; 82042; 83735; 84157; 85025; 85060; 85610; 87070; 87205; 89051; J1642; P9047

== ENCOUNTER 2022-03-31 10:10 | Day surgery (SDC) | payer OTHER ==
[2022-03-31] MEDS ORDERED: Lidocaine 1% PF 5 ML VIAL ONE (10:17)
[2022-03-31] MEDS ORDERED: Sodium Bicarbonate 2.5 MEQ/5 ML VIAL ONE (10:17)
[2022-03-31] MEDS ORDERED: Albumin 25% 200 ML ONE (10:17)
[2022-03-31 12:37] VITALS: BP 118/64; TEMP 97.8
[2022-03-31 13:24] LABS: RBC Count-Automated (BF) 11 /cu.mm; WBC/Nucleated-Auto (BF) 22 /cu.mm
[2022-03-31 13:42] LABS: BF Color Colorless; Body Fluid Source Ascites Body Fluid; Clarity Hazy (Clear); Tube # EDTA
[2022-03-31 13:43] LABS: BF Segmented Neutrophils 1 %; Cell Count Non Hematic 80 %; Lymphocytes 19 %
== END 2022-03-31 12:10 | disposition home or self-care (01) ==
LOC: ULT 10:10
PROVIDERS: ATTEND Internal Medicine Gastroenterology
PROC: 0W9G3ZX Drainage of Peritoneal Cavity, Percutaneous Approach, Diagnostic (ICD-10-PCS; principal; 2022-03-31)
DX: K74.60 Unspecified cirrhosis of liver (principal); R18.8 Other ascites; Z88.2 Allergy status to sulfonamides; Z88.5 Allergy status to narcotic agent; Z88.8 Allergy status to other drugs, medicaments and biological substances; Z91.018 Allergy to other foods; Z91.048 Other nonmedicinal substance allergy status
CPT/HCPCS: 49083; 84155; 85060; 87070; 87205; 89051; J1642; P9047

== ENCOUNTER 2022-04-07 09:58 | Day surgery (SDC) | payer OTHER ==
[2022-04-06 08:52] VITALS: BMI 26.6
[2022-04-07] MEDS ORDERED: Lidocaine 1% PF 5 ML VIAL ONE (10:04)
[2022-04-07] MEDS ORDERED: Sodium Bicarbonate 2.5 MEQ/5 ML VIAL ONE (10:04)
[2022-04-07] MEDS ORDERED: Albumin 25% 200 ML ONE (10:04)
[2022-04-07] MEDS ORDERED: Albumin 25% 25 GM/100 ML BOT IVPB SCH (11:15)
[2022-04-07 11:55] VITALS: BP 107/60
[2022-04-07 12:30] LABS: RBC Count-Automated (BF) 0 /cu.mm; WBC/Nucleated-Auto (BF) 54 /cu.mm
[2022-04-07 12:37] LABS: Body Fluid Source Ascites Body Fluid
[2022-04-07 12:38] LABS: BF Color Colorless; Clarity Hazy (Clear); Tube # EDTA
[2022-04-07 12:40] LABS: BF Segmented Neutrophils 0 %; Cell Count Non Hematic 70 %; Lymphocytes 30 %
== END 2022-04-07 11:40 | disposition home or self-care (01) ==
LOC: ULT 09:58
PROVIDERS: ATTEND Internal Medicine Gastroenterology
PROC: 0W9G3ZX Drainage of Peritoneal Cavity, Percutaneous Approach, Diagnostic (ICD-10-PCS; principal; 2022-04-07)
DX: K74.60 Unspecified cirrhosis of liver (principal); R18.8 Other ascites; K72.90 Hepatic failure, unspecified without coma; K65.2 Spontaneous bacterial peritonitis; Z88.2 Allergy status to sulfonamides; Z88.5 Allergy status to narcotic agent; Z88.6 Allergy status to analgesic agent; Z88.8 Allergy status to other drugs, medicaments and biological substances; Z91.018 Allergy to other foods; Z91.048 Other nonmedicinal substance allergy status
CPT/HCPCS: 49083; 82042; 84157; 85060; 87070; 87205; 89051; J1642; P9047

== ENCOUNTER 2022-04-14 00:07 | Inpatient (IN) | payer OTHER ==
[2022-04-14 02:02] LABS: Hemoglobin 9.1 g/dL (12.0-16.0); Mean Corpuscular HGB CONC 32.4 g/dL (32.0-36.0); Mean Corpuscular Hemoglobin 29.7 pg (27.0-31.0); Mean Corpuscular Volume 91.9 fL (78.0-98.0); RBC Distribution Width 13.8 % (11.5-14.5); Red Blood Cell (RBC) Count 3.08 mill/uL (4.20-5.40); White Blood Cell (WBC) Count 9.6 thou/uL (4.8-10.8)
[2022-04-14 02:11] LABS: Band 3 % (5-11); Lymphocytes 4 % (21-51); MDiff Complete? YES; Mean Platelet Volume 11.8 fL (7.4-10.4); Monocytes 4 % (0-10); Neutrophil 89 % (42-75); Platelet Count 42 thou/uL (130-400); Platelet Morphology Comment Appears Decreased
[2022-04-14] MEDS ORDERED: Cefepime 2 GM VIAL ONE ×2 (02:11→08:14)
[2022-04-14 02:19] LABS: ALT (SGPT) 17 U/L (8-55); AST (SGOT) 32 U/L (5-34); Alkaline Phosphatase 72 U/L (40-110); Anion Gap 15 mmol/L (10-20); BUN (Urea Nitrogen) 34 mg/dL (9.8-20.1); Calc. Creatinine Clearance 0 mL/min (70-130); Carbon Dioxide 19 mmol/L (22-29); Chloride 107 mmol/L (98-107); Estimated GFR 27; Globulin 1.9 g/dL (2.4-3.5); Glucose 101 mg/dL (70-105); Lipase 13 U/L (8-78); Potassium 3.6 mmol/L (3.5-5.1); Protein, Total 4.9 g/dL (6.0-8.3); Sodium 137 mmol/L (136-145)
[2022-04-14 02:24] LABS: Bacteria/HPF None Seen HPF (None Seen); Bilirubin Negative (Negative); Blood, Urine 1+ (Negative); Clarity Clear (Clear); Glucose, Urine (Dipstick) Normal (Negative); Ketone, Urine Negative (Negative); Leukocyte Negative Leu/uL (Negative); Nitrite Negative (Negative); Protein, Urine (Dipstick) Negative (Neg-Trace); Specific Gravity, Urine 1.014 (1.002-1.036); Squamous Epithelial 0-3 HPF (0-3); Urobilinogen Normal mg/dL (Less than 2); WBC/HPF 0-3 HPF (0-3)
[2022-04-14] MEDS ORDERED: Vancomycin 1 GM/200 ML BAG ONE (02:45)
[2022-04-14] MEDS ORDERED: Dextrose 50% Abboject 50 ML SYRINGE SLOW IVP PRN (03:19)
[2022-04-14] MEDS ORDERED: Dextrose 5% in Water 1,000 ML IV PRN (03:19)
[2022-04-14] MEDS ORDERED: HumaLOG 300 UNITS/3 ML VIAL SC PRN (03:22)
[2022-04-14] MEDS ORDERED: Melatonin 3 MG TAB PO PRN (03:39)
[2022-04-14] MEDS ORDERED: traMADol HCl 50 MG TAB PO PRN (03:39)
[2022-04-14] MEDS ORDERED: Albuterol 200 PUFF (6.7GM INHALER) INH PRN (03:39)
[2022-04-14] MEDS ORDERED: Cyclobenzaprine 10 MG TAB PO PRN (03:39)
[2022-04-14 05:24] LABS: INR-International Normal Ratio 1.7; Prothrombin Time 20.3 sec (12.0-14.7)
[2022-04-14 05:25] LABS: PTT 63.7 sec (22.9-36.1)
[2022-04-14] MEDS ORDERED: Furosemide 40 MG TAB ONE (08:12)
[2022-04-14] MEDS ORDERED: Folic Acid 1 MG TAB ONE (08:12)
[2022-04-14] MEDS: Furosemide 40 MG TAB PO SCH ×2 (08:19→21:12)
[2022-04-14] MEDS: Folic Acid 1 MG TAB PO SCH (08:19)
[2022-04-14 08:26] LABS: Hemoglobin 8.8 g/dL (12.0-16.0)
[2022-04-14] MEDS: Ferrous Sulfate 325 MG TAB PO SCH ×3 (10:05→16:53)
[2022-04-14] MEDS: Midodrine HCl 5 MG TAB PO SCH ×3 (10:06→16:53)
[2022-04-14] MEDS: Spironolactone 100 MG TAB PO SCH ×2 (10:06→16:53)
[2022-04-14] MEDS: Bupropion 150 MG XL TAB PO SCH (10:06)
[2022-04-14] MEDS: Cyanocobalamin (Vitamin B-12) 1,000 MCG TAB PO SCH (10:07)
[2022-04-14] MEDS: Magnesium Oxide 250 MG TAB PO SCH (10:07)
[2022-04-14] MEDS: Rifaximin 550 MG TAB PO SCH ×2 (10:07→21:12)
[2022-04-14 10:57] VITALS: BMI 25.0
[2022-04-14] MEDS: Insulin Glargine 30 UNITS/0.3 ML VIAL SC SCH (12:38)
[2022-04-14] MEDS: Cholecalciferol 1,000 UNITS (25 MCG) TAB PO SCH ×2 (12:38→21:12)
[2022-04-14] MEDS ORDERED: Albumin 25% 25 GM/100 ML BOT IVPB SCH (12:45)
[2022-04-14] MEDS ORDERED: Lidocaine 1% PF 5 ML VIAL ONE (13:11)
[2022-04-14] MEDS ORDERED: Sodium Bicarbonate 2.5 MEQ/5 ML VIAL ONE (13:11)
[2022-04-14] MEDS: traMADol HCl 50 MG TAB PO PRN (14:40)
[2022-04-14] MEDS: Cefepime 1 GM in Sodium Chloride 0.9% 100 ML IVPB SCH (14:40)
[2022-04-14 15:40] LABS: RBC Count-Automated (BF) 119 /cu.mm; WBC/Nucleated-Auto (BF) 32 /cu.mm
[2022-04-14 15:42] LABS: BF Color Colorless; Body Fluid Source Ascites Body Fluid; Clarity Hazy (Clear); Tube # EDTA
[2022-04-14 15:47] LABS: Cell Count Non Hematic 84 %; Lymphocytes 16 %
[2022-04-14] MEDS: HumaLOG 300 UNITS/3 ML VIAL SC PRN (17:58)
[2022-04-14] MEDS: Loratadine 10 MG TAB PO SCH (21:12)
[2022-04-15] MEDS ORDERED: Vancomycin 25 MG/ML Oral SOLN PO SCH
[2022-04-15] MEDS: traMADol HCl 50 MG TAB PO PRN ×2 (01:46→11:06)
[2022-04-15] MEDS: Cefepime 1 GM in Sodium Chloride 0.9% 100 ML IVPB SCH (01:48)
[2022-04-15] MEDS ORDERED: Vancomycin 1 GM in Premix Bag 1 BAG IVPB SCH (03:00)
[2022-04-15 07:24] LABS: Hemoglobin 8.7 g/dL (12.0-16.0); Mean Corpuscular HGB CONC 31.9 g/dL (32.0-36.0); Mean Corpuscular Hemoglobin 28.9 pg (27.0-31.0); Mean Corpuscular Volume 90.6 fL (78.0-98.0); Mean Platelet Volume 12.3 fL (7.4-10.4); Platelet Count 35 thou/uL (130-400); RBC Distribution Width 13.6 % (11.5-14.5); Red Blood Cell (RBC) Count 2.99 mill/uL (4.20-5.40)
[2022-04-15 07:38] LABS: ALT (SGPT) 12 U/L (8-55); AST (SGOT) 24 U/L (5-34); Albumin 3.1 g/dL (3.5-5.0); Alkaline Phosphatase 63 U/L (40-110); Anion Gap 13 mmol/L (10-20); BUN (Urea Nitrogen) 34 mg/dL (9.8-20.1); Bilirubin, Total 1.5 mg/dL (0.2-1.2); Calc. Creatinine Clearance 39 mL/min (70-130); Calcium 7.6 mg/dL (7.8-10.44); Carbon Dioxide 19 mmol/L (22-29); Chloride 105 mmol/L (98-107); Estimated GFR 33; Globulin 1.8 g/dL (2.4-3.5); Glucose 136 mg/dL (70-105); Protein, Total 4.9 g/dL (6.0-8.3); Sodium 134 mmol/L (136-145)
[2022-04-15 07:41] LABS: INR-International Normal Ratio 1.5; PTT 46.1 sec (22.9-36.1); Prothrombin Time 18.4 sec (12.0-14.7)
[2022-04-15] MEDS ORDERED: diphenhydrAMINE 30 GM TUBE TOP PRN (08:34)
[2022-04-15 08:41] LABS: Magnesium 1.7 mg/dL (1.6-2.6)
[2022-04-15] MEDS: Bupropion 150 MG XL TAB PO SCH (08:46)
[2022-04-15] MEDS: Cyanocobalamin (Vitamin B-12) 1,000 MCG TAB PO SCH (08:46)
[2022-04-15] MEDS: Ferrous Sulfate 325 MG TAB PO SCH ×3 (08:46→17:14)
[2022-04-15] MEDS: Midodrine HCl 5 MG TAB PO SCH ×3 (08:46→17:14)
[2022-04-15] MEDS: Cholecalciferol 1,000 UNITS (25 MCG) TAB PO SCH ×2 (08:46→21:27)
[2022-04-15] MEDS: Spironolactone 100 MG TAB PO SCH ×2 (08:46→17:14)
[2022-04-15] MEDS: Rifaximin 550 MG TAB PO SCH ×2 (08:46→21:27)
[2022-04-15] MEDS: Furosemide 40 MG TAB PO SCH ×2 (08:46→21:27)
[2022-04-15] MEDS: Folic Acid 1 MG TAB PO SCH (08:46)
[2022-04-15] MEDS: Insulin Glargine 30 UNITS/0.3 ML VIAL SC SCH (08:46)
[2022-04-15] MEDS: Magnesium Oxide 250 MG TAB PO SCH (11:05)
[2022-04-15 11:42] LABS: Campy jejuni + coli by PCR Negative (Negative); STEC Shiga Toxin 1+2 Negative (Negative); Salmonella spp. by PCR Negative (Negative); Shigella spp + EIEC by PCR Negative (Negative)
[2022-04-15 12:13] LABS: Band 10 % (5-11); Eosinophils 4 % (0-10); Lymphocytes 11 % (21-51); MDiff Complete? YES; Monocytes 3 % (0-10); Neutrophil 71 % (42-75); Platelet Morphology Comment Appears Decreased; Polychromasia SLIGHT = 2-3 cells (100X) (0-2/hpf)
[2022-04-15] MEDS: HumaLOG 300 UNITS/3 ML VIAL SC PRN ×2 (13:08→17:20)
[2022-04-15] MEDS: Vancomycin 25 MG/ML Oral SOLN PO SCH ×3 (13:35→23:49)
[2022-04-15] MEDS: Loratadine 10 MG TAB PO SCH (21:26)
[2022-04-15] MEDS: Triamcinolone 0.1% Cream 15 GM TUBE TOP SCH (21:26)
[2022-04-16 02:41] LABS: INR-International Normal Ratio 1.3; Prothrombin Time 16.7 sec (12.0-14.7)
[2022-04-16 02:42] LABS: PTT 46.1 sec (22.9-36.1)
[2022-04-16 02:43] LABS: Hemoglobin 8.8 g/dL (12.0-16.0); Mean Corpuscular HGB CONC 32.3 g/dL (32.0-36.0); Mean Corpuscular Hemoglobin 29.2 pg (27.0-31.0); Mean Corpuscular Volume 90.5 fL (78.0-98.0); Mean Platelet Volume 12.4 fL (7.4-10.4); Platelet Count 44 thou/uL (130-400); RBC Distribution Width 13.6 % (11.5-14.5); Red Blood Cell (RBC) Count 3.02 mill/uL (4.20-5.40); White Blood Cell (WBC) Count 4.1 thou/uL (4.8-10.8)
[2022-04-16 02:44] LABS: Vancomycin, Trough 12.9 ug/mL
[2022-04-16 03:09] LABS: Band 6 % (5-11); Eosinophils 8 % (0-10); Lymphocytes 13 % (21-51); MDiff Complete? YES; Monocytes 11 % (0-10); Myelocyte 1 % (0-0); Neutrophil 61 % (42-75); Platelet Morphology Comment Appears Decreased
[2022-04-16 03:10] LABS: ALT (SGPT) 13 U/L (8-55); AST (SGOT) 22 U/L (5-34); Alkaline Phosphatase 76 U/L (40-110); Anion Gap 12 mmol/L (10-20); BUN (Urea Nitrogen) 32 mg/dL (9.8-20.1); Calc. Creatinine Clearance 43 mL/min (70-130); Calcium 7.8 mg/dL (7.8-10.44); Carbon Dioxide 21 mmol/L (22-29); Chloride 108 mmol/L (98-107); Estimated GFR 36; Globulin 1.9 g/dL (2.4-3.5); Glucose 113 mg/dL (70-105); Potassium 3.3 mmol/L (3.5-5.1); Protein, Total 4.9 g/dL (6.0-8.3); Sodium 138 mmol/L (136-145)
[2022-04-16] MEDS: Vancomycin 25 MG/ML Oral SOLN PO SCH ×2 (05:29→11:41)
[2022-04-16] MEDS: Insulin Glargine 30 UNITS/0.3 ML VIAL SC SCH (08:33)
[2022-04-16] MEDS: Cyanocobalamin (Vitamin B-12) 1,000 MCG TAB PO SCH (08:36)
[2022-04-16] MEDS: Folic Acid 1 MG TAB PO SCH (08:36)
[2022-04-16] MEDS: Spironolactone 100 MG TAB PO SCH (08:36)
[2022-04-16] MEDS: Midodrine HCl 5 MG TAB PO SCH ×2 (08:36→11:41)
[2022-04-16] MEDS: Furosemide 40 MG TAB PO SCH (08:36)
[2022-04-16] MEDS: Ferrous Sulfate 325 MG TAB PO SCH ×2 (08:36→11:41)
[2022-04-16] MEDS: Cholecalciferol 1,000 UNITS (25 MCG) TAB PO SCH (08:36)
[2022-04-16] MEDS: Bupropion 150 MG XL TAB PO SCH (08:36)
[2022-04-16] MEDS: Magnesium Oxide 250 MG TAB PO SCH (08:36)
[2022-04-16] MEDS: Rifaximin 550 MG TAB PO SCH (08:36)
[2022-04-16] MEDS: Triamcinolone 0.1% Cream 15 GM TUBE TOP SCH (08:37)
[2022-04-16] MEDS ORDERED: Potassium Chloride 20 MEQ TAB PO SCH (08:45)
[2022-04-16] MEDS ORDERED: ESTRADIOL 10 MCG VAG SCH (09:00)
[2022-04-16] MEDS: traMADol HCl 50 MG TAB PO PRN (09:34)
[2022-04-16] MEDS: HumaLOG 300 UNITS/3 ML VIAL SC PRN (11:41)
[2022-04-16 13:46] VITALS: BP 116/70; TEMP 98.1
[2022-04-16] MEDS ORDERED: Vancomycin 25 MG/ML Oral SOLN PO SCH (17:00)
[2022-04-25] MEDS ORDERED: Vancomycin 25 MG/ML Oral SOLN PO SCH (21:00)
[2022-05-04] MEDS ORDERED: Vancomycin 25 MG/ML Oral SOLN PO SCH (09:00)
== END 2022-04-16 13:49 | disposition home or self-care (01) | DRG 433 ==
LOC: ERS 00:07 → ERHOLD 02:23 → T4-B 12:09
PROVIDERS: ADMIT Student in an Organized Health Care Education/Training Program; ATTEND Student in an Organized Health Care Education/Training Program
PROC: 0W9G3ZZ Drainage of Peritoneal Cavity, Percutaneous Approach (ICD-10-PCS; principal; 2022-04-14)
DX: K74.60 Unspecified cirrhosis of liver (principal); A04.72 Enterocolitis due to Clostridium difficile, not specified as recurrent; I85.10 Secondary esophageal varices without bleeding; K76.6 Portal hypertension; R18.8 Other ascites; N18.4 Chronic kidney disease, stage 4 (severe); Z20.822 Contact with and (suspected) exposure to COVID-19; Z66 Do not resuscitate; K21.9 Gastro-esophageal reflux disease without esophagitis; J45.909 Unspecified asthma, uncomplicated; F41.9 Anxiety disorder, unspecified; F32.A Depression, unspecified; K70.9 Alcoholic liver disease, unspecified; K31.819 Angiodysplasia of stomach and duodenum without bleeding; K31.89 Other diseases of stomach and duodenum; F14.10 Cocaine abuse, uncomplicated; E11.22 Type 2 diabetes mellitus with diabetic chronic kidney disease; D50.9 Iron deficiency anemia, unspecified; K72.90 Hepatic failure, unspecified without coma; I12.9 Hypertensive chronic kidney disease with stage 1 through stage 4 chronic kidney disease, or unspecified chronic kidney disease; D69.6 Thrombocytopenia, unspecified; Z90.49 Acquired absence of other specified parts of digestive tract; Z90.09 Acquired absence of other part of head and neck; Z98.890 Other specified postprocedural states; Z87.891 Personal history of nicotine dependence; Z88.6 Allergy status to analgesic agent; Z88.5 Allergy status to narcotic agent; Z88.8 Allergy status to other drugs, medicaments and biological substances; Z88.2 Allergy status to sulfonamides; Z79.899 Other long term (current) drug therapy; Z79.51 Long term (current) use of inhaled steroids; Z79.4 Long term (current) use of insulin
CPT/HCPCS: 36415; 49083; 80053; 80202; 81003; 81015; 82140; 83605; 83630; 83690; 83735; 85025; 85060; 85610; 85730; 87040; 87070; 87205; 87324; 87449; 87505; 89051; 90471; 90732; 93005; G0009; J0692; J1642; J1815; J3370; J3490; P9047; U0003; U0005

== ENCOUNTER → 2022-04-21 | Day surgery (SDC) | payer OTHER ==
[2022-04-20 11:19] VITALS: BMI 25.8
[~2022-04-21] MED LIST changes: +Lidocaine 1% MPF 2 ML VIAL ONE; -Lidocaine 1% PF 5 ML VIAL ONE
[2022-04-21 11:03] VITALS: BP 110/54; TEMP 98.4
[2022-04-21 13:59] LABS: RBC Count-Automated (BF) 68 /cu.mm; WBC/Nucleated-Auto (BF) 23 /cu.mm
[2022-04-21 14:00] LABS: BF Color Colorless; Body Fluid Source Ascites Body Fluid; Clarity Hazy (Clear); Tube # EDTA
[2022-04-21 14:14] LABS: BF Segmented Neutrophils 4 %; Cell Count Non Hematic 68 %; Eosinophils 1 %; Lymphocytes 27 %
== END ==
LOC: ULT 09:56
PROVIDERS: ATTEND Internal Medicine Gastroenterology
DX: K74.60 Unspecified cirrhosis of liver (principal); R18.8 Other ascites; K76.6 Portal hypertension; K31.89 Other diseases of stomach and duodenum; I85.10 Secondary esophageal varices without bleeding; I12.9 Hypertensive chronic kidney disease with stage 1 through stage 4 chronic kidney disease, or unspecified chronic kidney disease; E11.22 Type 2 diabetes mellitus with diabetic chronic kidney disease; N18.4 Chronic kidney disease, stage 4 (severe); K21.9 Gastro-esophageal reflux disease without esophagitis; D69.6 Thrombocytopenia, unspecified; Z79.4 Long term (current) use of insulin; Z79.899 Other long term (current) drug therapy; Z88.2 Allergy status to sulfonamides; Z88.5 Allergy status to narcotic agent; Z88.6 Allergy status to analgesic agent; Z88.8 Allergy status to other drugs, medicaments and biological substances; Z91.048 Other nonmedicinal substance allergy status; Z91.018 Allergy to other foods; Z66 Do not resuscitate
CPT/HCPCS: 49083; 82042; 84157; 85060; 87070; 87205; 89051; J1642; P9047

== ENCOUNTER 2022-05-05 10:13 | Day surgery (SDC) | payer OTHER ==
[2022-04-29 09:20] VITALS: BMI 26.6
[2022-05-05] MEDS ORDERED: Sodium Bicarbonate 2.5 MEQ/5 ML VIAL ONE (10:16)
[2022-05-05] MEDS ORDERED: Lidocaine 1% MPF 2 ML VIAL ONE (10:16)
[2022-05-05] MEDS ORDERED: Albumin 25% 200 ML ONE (10:16)
[2022-05-05 12:22] VITALS: BP 111/61; TEMP 97.9
[2022-05-05 13:59] LABS: BF Color Colorless; Body Fluid Source Ascites Body Fluid; Clarity Cloudy/Turbid (Clear); Tube # EDTA
[2022-05-05 14:03] LABS: RBC Count-Automated (BF) 160 /cu.mm; WBC/Nucleated-Auto (BF) 103 /cu.mm
[2022-05-05 14:15] LABS: BF Segmented Neutrophils 2 %; Cell Count Non Hematic 67 %; Lymphocytes 31 %
== END 2022-05-05 11:55 | disposition home or self-care (01) ==
LOC: ULT 10:13
PROVIDERS: ATTEND Internal Medicine Gastroenterology
PROC: 0W9G3ZX Drainage of Peritoneal Cavity, Percutaneous Approach, Diagnostic (ICD-10-PCS; principal; 2022-05-05)
DX: K74.60 Unspecified cirrhosis of liver (principal); R18.8 Other ascites; K65.2 Spontaneous bacterial peritonitis; D69.6 Thrombocytopenia, unspecified; I12.9 Hypertensive chronic kidney disease with stage 1 through stage 4 chronic kidney disease, or unspecified chronic kidney disease; E11.22 Type 2 diabetes mellitus with diabetic chronic kidney disease; N18.9 Chronic kidney disease, unspecified; J45.909 Unspecified asthma, uncomplicated; K21.9 Gastro-esophageal reflux disease without esophagitis; K76.6 Portal hypertension; K31.89 Other diseases of stomach and duodenum; Z79.2 Long term (current) use of antibiotics; Z79.4 Long term (current) use of insulin; Z79.899 Other long term (current) drug therapy; Z88.2 Allergy status to sulfonamides; Z88.5 Allergy status to narcotic agent; Z88.8 Allergy status to other drugs, medicaments and biological substances; Z91.018 Allergy to other foods; Z91.048 Other nonmedicinal substance allergy status
CPT/HCPCS: 49083; 82042; 84155; 85060; 87070; 87205; 89051; J1642; P9047

== ENCOUNTER 2022-05-12 10:06 | Day surgery (SDC) | payer OTHER ==
[2022-05-07 09:53] VITALS: BMI 26.6
[2022-05-12] MEDS ORDERED: Sodium Bicarbonate 2.5 MEQ/5 ML VIAL ONE (11:18)
[2022-05-12] MEDS ORDERED: Lidocaine 2% PF 5 ML VIAL ONE (11:18)
[2022-05-12] MEDS ORDERED: Albumin 25% 200 ML ONE (11:20)
[2022-05-12 13:21] LABS: #Basophils 0.1 thou/uL (0.0-0.2); #Eosinphils 0.4 thou/uL (0.0-0.7); #Lymphocytes 0.4 thou/uL (1.20-3.40); #Monocytes 0.6 thou/uL (0.11-0.59); #Neutrophils 2.8 thou/uL (1.40-6.50); %Basophils 1.2 % (0.0-1.0); %Eosinophils 9.9 % (0.0-10.0); %Lymphocytes 10.4 % (21.0-51.0); %Monocytes 13.2 % (0.0-10.0); %Neutrophils 65.3 % (42.0-75.0); Hemoglobin 9.4 g/dL (12.0-16.0); Mean Corpuscular HGB CONC 32.2 g/dL (32.0-36.0); Mean Corpuscular Hemoglobin 30.3 pg (27.0-31.0); Mean Corpuscular Volume 94.2 fL (78.0-98.0); Mean Platelet Volume 11.5 fL (7.4-10.4); Platelet Count 68 thou/uL (130-400); RBC Distribution Width 14.7 % (11.5-14.5); Red Blood Cell (RBC) Count 3.12 mill/uL (4.20-5.40); White Blood Cell (WBC) Count 4.3 thou/uL (4.8-10.8)
[2022-05-12 13:28] LABS: INR-International Normal Ratio 1.4; PTT 39.9 sec (22.9-36.1); Prothrombin Time 17.6 sec (12.0-14.7)
[2022-05-12 13:34] LABS: RBC Count-Automated (BF) 23 /cu.mm; WBC/Nucleated-Auto (BF) 46 /cu.mm
[2022-05-12 13:36] VITALS: BP 119/66
[2022-05-12 13:53] LABS: BF Color Colorless; Body Fluid Source Ascites Body Fluid; Clarity Hazy (Clear); Tube # EDTA
[2022-05-12 13:54] LABS: ALT (SGPT) 21 U/L (8-55); AST (SGOT) 29 U/L (5-34); Albumin 3.2 g/dL (3.5-5.0); Alkaline Phosphatase 77 U/L (40-110); Anion Gap 15 mmol/L (10-20); BUN (Urea Nitrogen) 42 mg/dL (9.8-20.1); Bilirubin, Total 1.8 mg/dL (0.2-1.2); Calc. Creatinine Clearance 43 mL/min (70-130); Calcium 8.7 mg/dL (7.8-10.44); Carbon Dioxide 21 mmol/L (22-29); Chloride 111 mmol/L (98-107); Estimated GFR 32; Globulin 2.2 g/dL (2.4-3.5); Glucose 148 mg/dL (70-105); Magnesium 1.9 mg/dL (1.6-2.6); Potassium 4.2 mmol/L (3.5-5.1); Protein, Total 5.4 g/dL (6.0-8.3); Sodium 143 mmol/L (136-145)
[2022-05-12 13:54] LABS: BF Segmented Neutrophils 1 %; Cell Count Non Hematic 82 %; Lymphocytes 17 %
== END 2022-05-12 12:50 | disposition home or self-care (01) ==
LOC: ULT 10:06
PROVIDERS: ATTEND Internal Medicine Gastroenterology
PROC: 0W9G3ZX Drainage of Peritoneal Cavity, Percutaneous Approach, Diagnostic (ICD-10-PCS; principal; 2022-05-12)
DX: K74.60 Unspecified cirrhosis of liver (principal); R18.8 Other ascites; Z88.2 Allergy status to sulfonamides; Z88.5 Allergy status to narcotic agent; Z88.8 Allergy status to other drugs, medicaments and biological substances; Z91.018 Allergy to other foods; Z91.048 Other nonmedicinal substance allergy status
CPT/HCPCS: 49083; 80053; 82042; 83735; 84157; 85025; 85060; 85610; 85730; 87070; 87205; 89051; J1642; J2001; P9047

== ENCOUNTER → 2022-05-19 | Day surgery (SDC) | payer OTHER ==
[~2022-05-19] MED LIST changes: -Lidocaine 1% MPF 2 ML VIAL ONE; +Lidocaine 2% PF 5 ML VIAL ONE
[2022-05-19 10:59] VITALS: BP 116/68; TEMP 97.9; BMI 28.1
[2022-05-19 12:39] LABS: BF Color Yellow; Body Fluid Source Ascites Body Fluid; Clarity Hazy (Clear); RBC Count-Automated (BF) 22 /cu.mm; Tube # EDTA; WBC/Nucleated-Auto (BF) 67 /cu.mm
[2022-05-19 14:51] LABS: BF Segmented Neutrophils 2 %; Cell Count Non Hematic 75 %; Eosinophils 1 %; Lymphocytes 22 %
== END | disposition home or self-care (01) ==
LOC: ULT 10:25
PROVIDERS: ATTEND Internal Medicine Gastroenterology
PROC: 0W9G3ZX Drainage of Peritoneal Cavity, Percutaneous Approach, Diagnostic (ICD-10-PCS; principal; 2022-05-19)
DX: K74.60 Unspecified cirrhosis of liver (principal); R18.8 Other ascites; K72.90 Hepatic failure, unspecified without coma; K65.2 Spontaneous bacterial peritonitis; Z88.2 Allergy status to sulfonamides; Z88.5 Allergy status to narcotic agent; Z88.8 Allergy status to other drugs, medicaments and biological substances; Z91.018 Allergy to other foods; Z91.048 Other nonmedicinal substance allergy status
CPT/HCPCS: 49083; 82042; 84157; 85060; 87070; 87077; 87186; 87205; 89051; J1642; J2001; P9047

== ENCOUNTER 2022-05-20 16:45 | Inpatient (IN) | payer OTHER ==
[2022-05-20] MEDS ORDERED: Ondansetron PF 4 MG/2 ML Vial ONE (18:15)
[2022-05-20] MEDS ORDERED: Fentanyl 100 MCG/2 ML VIAL ONE (18:15)
[2022-05-20] MEDS ORDERED: cefTRIAXone\\ROCEPHIN 2 GM VIAL ONE (18:16)
[2022-05-20 18:37] LABS: Hemoglobin 8.2 g/dL (12.0-16.0); Mean Corpuscular HGB CONC 32.4 g/dL (32.0-36.0); Mean Corpuscular Hemoglobin 29.9 pg (27.0-31.0); Mean Corpuscular Volume 92.3 fL (78.0-98.0); Mean Platelet Volume 11.3 fL (7.4-10.4); Platelet Count 57 thou/uL (130-400); RBC Distribution Width 14.8 % (11.5-14.5); Red Blood Cell (RBC) Count 2.73 mill/uL (4.20-5.40); White Blood Cell (WBC) Count 3.5 thou/uL (4.8-10.8)
[2022-05-20 18:56] LABS: ALT (SGPT) 21 U/L (8-55); AST (SGOT) 32 U/L (5-34); Albumin 3.5 g/dL (3.5-5.0); Alkaline Phosphatase 77 U/L (40-110); Anion Gap 12 mmol/L (10-20); BUN (Urea Nitrogen) 41 mg/dL (9.8-20.1); Bilirubin, Total 1.5 mg/dL (0.2-1.2); Calc. Creatinine Clearance 0 mL/min (70-130); Calcium 8.8 mg/dL (7.8-10.44); Carbon Dioxide 23 mmol/L (22-29); Chloride 107 mmol/L (98-107); Estimated GFR 29; Glucose 145 mg/dL (70-105); Potassium 4.2 mmol/L (3.5-5.1); Protein, Total 5.5 g/dL (6.0-8.3); Sodium 138 mmol/L (136-145)
[2022-05-20 18:57] LABS: Anisocytosis SLIGHT = 6-15 cells (100X) (0-5/hpf); Band 4 % (5-11); Eosinophils 3 % (0-10); Lymphocytes 11 % (21-51); MDiff Complete? YES; Monocytes 11 % (0-10); Neutrophil 71 % (42-75); Ovalocytes SLIGHT = 2-5 cells (100X) (0-1/hpf); Platelet Morphology Comment Appears Decreased; Polychromasia SLIGHT = 2-3 cells (100X) (0-2/hpf); Schistocytes SLIGHT = 2-5 cells (100X) (0-1/hpf)
[2022-05-20] MEDS ORDERED: Dextrose 5% in Water 1,000 ML IV PRN (20:58)
[2022-05-20] MEDS ORDERED: HumaLOG 300 UNITS/3 ML VIAL SC PRN (20:58)
[2022-05-20] MEDS ORDERED: Dextrose 50% Abboject 50 ML SYRINGE SLOW IVP PRN (20:58)
[2022-05-20 21:37] VITALS: BMI 24.2
[2022-05-21] MEDS ORDERED: Albuterol 200 PUFF (6.7GM INHALER) INH PRN (01:25)
[2022-05-21 06:32] LABS: Hemoglobin 7.9 g/dL (12.0-16.0); Mean Corpuscular HGB CONC 32.8 g/dL (32.0-36.0); Mean Corpuscular Hemoglobin 30.4 pg (27.0-31.0); Mean Corpuscular Volume 92.5 fL (78.0-98.0); Mean Platelet Volume 11.1 fL (7.4-10.4); Platelet Count 51 thou/uL (130-400); RBC Distribution Width 14.7 % (11.5-14.5); Red Blood Cell (RBC) Count 2.61 mill/uL (4.20-5.40)
[2022-05-21 06:43] LABS: ALT (SGPT) 24 U/L (8-55); AST (SGOT) 31 U/L (5-34); Albumin 3.1 g/dL (3.5-5.0); Alkaline Phosphatase 69 U/L (40-110); Anion Gap 13 mmol/L (10-20); BUN (Urea Nitrogen) 39 mg/dL (9.8-20.1); Bilirubin, Total 0.9 mg/dL (0.2-1.2); Calc. Creatinine Clearance 37 mL/min (70-130); Calcium 8.4 mg/dL (7.8-10.44); Carbon Dioxide 23 mmol/L (22-29); Chloride 109 mmol/L (98-107); Estimated GFR 31; Globulin 1.9 g/dL (2.4-3.5); Glucose 94 mg/dL (70-105); Potassium 3.9 mmol/L (3.5-5.1); Sodium 141 mmol/L (136-145)
[2022-05-21] MEDS: Folic Acid 1 MG TAB PO SCH (08:38)
[2022-05-21] MEDS: Insulin Glargine 30 UNITS/0.3 ML VIAL SC SCH (08:38)
[2022-05-21] MEDS: Ferrous Sulfate 325 MG TAB PO SCH ×3 (08:39→17:18)
[2022-05-21] MEDS: Furosemide 40 MG TAB PO SCH ×2 (08:39→20:14)
[2022-05-21] MEDS: Cyanocobalamin (Vitamin B-12) 1,000 MCG TAB PO SCH (08:39)
[2022-05-21] MEDS: Cholecalciferol 1,000 UNITS (25 MCG) TAB PO SCH ×2 (08:39→20:14)
[2022-05-21] MEDS: Bupropion 150 MG XL TAB PO SCH (08:39)
[2022-05-21] MEDS: Spironolactone 100 MG TAB PO SCH ×2 (08:39→17:18)
[2022-05-21] MEDS: traMADol HCl 50 MG TAB PO PRN (08:39)
[2022-05-21] MEDS: Rifaximin 550 MG TAB PO SCH ×2 (08:39→20:13)
[2022-05-21] MEDS: Magnesium Oxide 250 MG TAB PO SCH (08:45)
[2022-05-21] MEDS: HumaLOG 300 UNITS/3 ML VIAL SC PRN ×2 (12:07→17:19)
[2022-05-21 12:24] LABS: Band 4 % (5-11); Eosinophils 5 % (0-10); Lymphocytes 16 % (21-51); MDiff Complete? YES; Monocytes 19 % (0-10); Neutrophil 56 % (42-75); Platelet Morphology Comment Appears Decreased; Polychromasia SLIGHT = 2-3 cells (100X) (0-2/hpf)
[2022-05-21] MEDS: Ondansetron ODT 4 MG TAB PO PRN (15:10)
[2022-05-21] MEDS: cefTRIAXone\\ROCEPHIN 2 GM in Sodium Chloride 0.9% 100 ML IVPB SCH (17:18)
[2022-05-21] MEDS: Loratadine 10 MG TAB PO SCH (20:14)
[2022-05-22 06:18] LABS: ALT (SGPT) 22 U/L (8-55); AST (SGOT) 28 U/L (5-34); Alkaline Phosphatase 73 U/L (40-110); Anion Gap 11 mmol/L (10-20); BUN (Urea Nitrogen) 40 mg/dL (9.8-20.1); Bilirubin, Total 0.8 mg/dL (0.2-1.2); Calc. Creatinine Clearance 36 mL/min (70-130); Calcium 8.4 mg/dL (7.8-10.44); Carbon Dioxide 23 mmol/L (22-29); Chloride 112 mmol/L (98-107); Estimated GFR 31; Glucose 126 mg/dL (70-105); Potassium 3.7 mmol/L (3.5-5.1); Sodium 142 mmol/L (136-145)
[2022-05-22 07:04] LABS: Band 4 % (5-11); Eosinophils 10 % (0-10); Hemoglobin 8.3 g/dL (12.0-16.0); Lymphocytes 15 % (21-51); MDiff Complete? YES; Mean Corpuscular HGB CONC 32.6 g/dL (32.0-36.0); Mean Corpuscular Hemoglobin 30.3 pg (27.0-31.0); Mean Platelet Volume 10.3 fL (7.4-10.4); Monocytes 26 % (0-10); Neutrophil 43 % (42-75); Platelet Count 62 thou/uL (130-400); Platelet Morphology Comment Appears Decreased; RBC Distribution Width 15.1 % (11.5-14.5); Red Blood Cell (RBC) Count 2.72 mill/uL (4.20-5.40)
[2022-05-22] MEDS: Furosemide 40 MG TAB PO SCH ×2 (08:53→20:10)
[2022-05-22] MEDS: Magnesium Oxide 250 MG TAB PO SCH (08:53)
[2022-05-22] MEDS: Bupropion 150 MG XL TAB PO SCH (08:53)
[2022-05-22] MEDS: traMADol HCl 50 MG TAB PO PRN (08:53)
[2022-05-22] MEDS: Folic Acid 1 MG TAB PO SCH (08:53)
[2022-05-22] MEDS: Cyanocobalamin (Vitamin B-12) 1,000 MCG TAB PO SCH (08:53)
[2022-05-22] MEDS: Cholecalciferol 1,000 UNITS (25 MCG) TAB PO SCH ×2 (08:55→20:09)
[2022-05-22] MEDS: Ferrous Sulfate 325 MG TAB PO SCH ×3 (08:55→17:37)
[2022-05-22] MEDS: Spironolactone 100 MG TAB PO SCH ×2 (08:55→17:37)
[2022-05-22] MEDS: Rifaximin 550 MG TAB PO SCH ×2 (08:55→20:10)
[2022-05-22] MEDS: Insulin Glargine 30 UNITS/0.3 ML VIAL SC SCH (08:55)
[2022-05-22] MEDS: Ondansetron ODT 4 MG TAB PO PRN (09:52)
[2022-05-22 12:07] LABS: Bacteria/HPF None Seen HPF (None Seen); Bilirubin Negative (Negative); Blood, Urine Negative (Negative); Clarity Clear (Clear); Glucose, Urine (Dipstick) Normal (Negative); Ketone, Urine Negative (Negative); Leukocyte Negative Leu/uL (Negative); Nitrite Negative (Negative); Protein, Urine (Dipstick) Negative (Neg-Trace); RBC/HPF 0-3 HPF (0-3); Specific Gravity, Urine 1.011 (1.002-1.036); Squamous Epithelial 0-3 HPF (0-3); Urobilinogen Normal mg/dL (Less than 2); WBC/HPF 0-3 HPF (0-3); pH, Urine 5.5 (5.0-9.0)
[2022-05-22 12:19] LABS: Urine Culture Reflex No No
[2022-05-22] MEDS: HumaLOG 300 UNITS/3 ML VIAL SC PRN ×2 (12:42→12:44)
[2022-05-22] MEDS: cefTRIAXone\\ROCEPHIN 2 GM in Sodium Chloride 0.9% 100 ML IVPB SCH (17:37)
[2022-05-22] MEDS: Loratadine 10 MG TAB PO SCH (20:10)
[2022-05-22] MEDS: Melatonin 3 MG TAB PO PRN (20:11)
[2022-05-23 06:40] LABS: ALT (SGPT) 21 U/L (8-55); AST (SGOT) 25 U/L (5-34); Alkaline Phosphatase 71 U/L (40-110); Anion Gap 11 mmol/L (10-20); BUN (Urea Nitrogen) 38 mg/dL (9.8-20.1); Bilirubin, Total 0.7 mg/dL (0.2-1.2); Calc. Creatinine Clearance 38 mL/min (70-130); Calcium 8.6 mg/dL (7.8-10.44); Carbon Dioxide 25 mmol/L (22-29); Chloride 110 mmol/L (98-107); Estimated GFR 32; Globulin 2.1 g/dL (2.4-3.5); Glucose 86 mg/dL (70-105); Potassium 3.7 mmol/L (3.5-5.1); Protein, Total 5.1 g/dL (6.0-8.3); Sodium 142 mmol/L (136-145)
[2022-05-23 06:44] LABS: Band 4 % (5-11); Eosinophils 10 % (0-10); Hemoglobin 8.7 g/dL (12.0-16.0); Lymphocytes 17 % (21-51); MDiff Complete? YES; Mean Corpuscular HGB CONC 31.9 g/dL (32.0-36.0); Mean Corpuscular Hemoglobin 30.3 pg (27.0-31.0); Mean Corpuscular Volume 94.9 fL (78.0-98.0); Mean Platelet Volume 10.5 fL (7.4-10.4); Monocytes 13 % (0-10); Neutrophil 56 % (42-75); Platelet Count 65 thou/uL (130-400); Platelet Morphology Comment Appears Decreased; RBC Distribution Width 15.3 % (11.5-14.5); Red Blood Cell (RBC) Count 2.87 mill/uL (4.20-5.40); White Blood Cell (WBC) Count 4.1 thou/uL (4.8-10.8)
[2022-05-23] MEDS: Ferrous Sulfate 325 MG TAB PO SCH ×3 (08:56→17:38)
[2022-05-23] MEDS: Magnesium Oxide 250 MG TAB PO SCH (08:57)
[2022-05-23] MEDS: Spironolactone 100 MG TAB PO SCH ×2 (08:57→17:38)
[2022-05-23] MEDS: Cyanocobalamin (Vitamin B-12) 1,000 MCG TAB PO SCH (08:57)
[2022-05-23] MEDS: Bupropion 150 MG XL TAB PO SCH (08:57)
[2022-05-23] MEDS: Folic Acid 1 MG TAB PO SCH (08:57)
[2022-05-23] MEDS: Cholecalciferol 1,000 UNITS (25 MCG) TAB PO SCH ×2 (08:57→20:57)
[2022-05-23] MEDS: Rifaximin 550 MG TAB PO SCH ×2 (08:57→20:57)
[2022-05-23] MEDS: Furosemide 40 MG TAB PO SCH ×2 (08:57→20:58)
[2022-05-23] MEDS: Insulin Glargine 30 UNITS/0.3 ML VIAL SC SCH (09:04)
[2022-05-23] MEDS: HumaLOG 300 UNITS/3 ML VIAL SC PRN (12:31)
[2022-05-23] MEDS: traMADol HCl 50 MG TAB PO PRN (12:38)
[2022-05-23] MEDS: cefTRIAXone\\ROCEPHIN 2 GM in Sodium Chloride 0.9% 100 ML IVPB SCH (17:38)
[2022-05-23] MEDS: Loratadine 10 MG TAB PO SCH (20:57)
[2022-05-24 07:01] LABS: #Basophils 0.1 thou/uL (0.0-0.2); #Eosinphils 0.6 thou/uL (0.0-0.7); #Monocytes 0.7 thou/uL (0.11-0.59); #Neutrophils 2.9 thou/uL (1.40-6.50); %Basophils 1.1 % (0.0-1.0); %Eosinophils 11.6 % (0.0-10.0); %Lymphocytes 18.6 % (21.0-51.0); %Monocytes 13.7 % (0.0-10.0); Hemoglobin 9.5 g/dL (12.0-16.0); Mean Corpuscular HGB CONC 31.2 g/dL (32.0-36.0); Mean Corpuscular Hemoglobin 29.8 pg (27.0-31.0); Mean Corpuscular Volume 95.5 fL (78.0-98.0); Mean Platelet Volume 9.9 fL (7.4-10.4); Platelet Count 80 thou/uL (130-400); RBC Distribution Width 15.3 % (11.5-14.5); Red Blood Cell (RBC) Count 3.19 mill/uL (4.20-5.40); White Blood Cell (WBC) Count 5.2 thou/uL (4.8-10.8)
[2022-05-24 07:21] LABS: ALT (SGPT) 20 U/L (8-55); AST (SGOT) 25 U/L (5-34); Albumin 3.1 g/dL (3.5-5.0); Alkaline Phosphatase 77 U/L (40-110); Anion Gap 13 mmol/L (10-20); BUN (Urea Nitrogen) 40 mg/dL (9.8-20.1); Bilirubin, Total 0.6 mg/dL (0.2-1.2); Calc. Creatinine Clearance 37 mL/min (70-130); Calcium 8.8 mg/dL (7.8-10.44); Carbon Dioxide 24 mmol/L (22-29); Chloride 109 mmol/L (98-107); Estimated GFR 32; Globulin 2.3 g/dL (2.4-3.5); Glucose 99 mg/dL (70-105); Potassium 3.8 mmol/L (3.5-5.1); Protein, Total 5.4 g/dL (6.0-8.3); Sodium 142 mmol/L (136-145)
[2022-05-24] MEDS: Bupropion 150 MG XL TAB PO SCH (09:03)
[2022-05-24] MEDS: Cholecalciferol 1,000 UNITS (25 MCG) TAB PO SCH ×2 (09:03→20:41)
[2022-05-24] MEDS: Insulin Glargine 30 UNITS/0.3 ML VIAL SC SCH (09:03)
[2022-05-24] MEDS: Cyanocobalamin (Vitamin B-12) 1,000 MCG TAB PO SCH (09:03)
[2022-05-24] MEDS: Ferrous Sulfate 325 MG TAB PO SCH ×3 (09:03→17:12)
[2022-05-24] MEDS: Furosemide 40 MG TAB PO SCH ×2 (09:03→20:41)
[2022-05-24] MEDS: Spironolactone 100 MG TAB PO SCH ×2 (09:03→17:12)
[2022-05-24] MEDS: Folic Acid 1 MG TAB PO SCH (09:03)
[2022-05-24] MEDS: Magnesium Oxide 250 MG TAB PO SCH (09:04)
[2022-05-24] MEDS: Rifaximin 550 MG TAB PO SCH ×2 (09:04→20:41)
[2022-05-24] MEDS: HumaLOG 300 UNITS/3 ML VIAL SC PRN ×2 (12:58→17:16)
[2022-05-24] MEDS: cefTRIAXone\\ROCEPHIN 2 GM in Sodium Chloride 0.9% 100 ML IVPB SCH (17:12)
[2022-05-24] MEDS: Loratadine 10 MG TAB PO SCH (20:41)
[2022-05-24] MEDS: traMADol HCl 50 MG TAB PO PRN (21:19)
[2022-05-24] MEDS: Melatonin 3 MG TAB PO PRN (23:44)
[2022-05-25 06:34] LABS: #Basophils 0.1 thou/uL (0.0-0.2); #Eosinphils 0.5 thou/uL (0.0-0.7); #Lymphocytes 0.8 thou/uL (1.20-3.40); #Monocytes 0.7 thou/uL (0.11-0.59); #Neutrophils 3.1 thou/uL (1.40-6.50); %Basophils 1.3 % (0.0-1.0); %Eosinophils 9.2 % (0.0-10.0); %Monocytes 12.9 % (0.0-10.0); %Neutrophils 61.6 % (42.0-75.0); Hemoglobin 8.7 g/dL (12.0-16.0); Mean Corpuscular HGB CONC 33.7 g/dL (32.0-36.0); Mean Corpuscular Volume 94.9 fL (78.0-98.0); Mean Platelet Volume 10.5 fL (7.4-10.4); Platelet Count 57 thou/uL (130-400); RBC Distribution Width 15.2 % (11.5-14.5); Red Blood Cell (RBC) Count 2.72 mill/uL (4.20-5.40)
[2022-05-25 06:58] LABS: ALT (SGPT) 15 U/L (8-55); AST (SGOT) 24 U/L (5-34); Albumin 2.9 g/dL (3.5-5.0); Alkaline Phosphatase 69 U/L (40-110); Anion Gap 11 mmol/L (10-20); BUN (Urea Nitrogen) 41 mg/dL (9.8-20.1); Bilirubin, Total 0.7 mg/dL (0.2-1.2); Calc. Creatinine Clearance 40 mL/min (70-130); Calcium 8.2 mg/dL (7.8-10.44); Carbon Dioxide 23 mmol/L (22-29); Chloride 109 mmol/L (98-107); Estimated GFR 35; Globulin 2.1 g/dL (2.4-3.5); Glucose 101 mg/dL (70-105); Potassium 3.5 mmol/L (3.5-5.1); Sodium 139 mmol/L (136-145)
[2022-05-25] MEDS: Cholecalciferol 1,000 UNITS (25 MCG) TAB PO SCH ×2 (08:53→20:14)
[2022-05-25] MEDS: Rifaximin 550 MG TAB PO SCH ×2 (08:53→20:13)
[2022-05-25] MEDS: Magnesium Oxide 250 MG TAB PO SCH (08:53)
[2022-05-25] MEDS: Folic Acid 1 MG TAB PO SCH (08:53)
[2022-05-25] MEDS: Cyanocobalamin (Vitamin B-12) 1,000 MCG TAB PO SCH (08:54)
[2022-05-25] MEDS: Ferrous Sulfate 325 MG TAB PO SCH ×3 (08:54→17:25)
[2022-05-25] MEDS: Insulin Glargine 30 UNITS/0.3 ML VIAL SC SCH (08:54)
[2022-05-25] MEDS: Spironolactone 100 MG TAB PO SCH ×2 (08:54→17:25)
[2022-05-25] MEDS: Furosemide 40 MG TAB PO SCH ×2 (08:54→20:13)
[2022-05-25] MEDS: Bupropion 150 MG XL TAB PO SCH (11:06)
[2022-05-25] MEDS: cefTRIAXone\\ROCEPHIN 2 GM in Sodium Chloride 0.9% 100 ML IVPB SCH (17:25)
[2022-05-25] MEDS: HumaLOG 300 UNITS/3 ML VIAL SC PRN (17:28)
[2022-05-25] MEDS: Loratadine 10 MG TAB PO SCH (20:13)
[2022-05-26 00:21] VITALS: TEMP 97.9
[2022-05-26 06:34] LABS: #Eosinphils 0.6 thou/uL (0.0-0.7); #Lymphocytes 0.7 thou/uL (1.20-3.40); #Monocytes 0.5 thou/uL (0.11-0.59); #Neutrophils 3.5 thou/uL (1.40-6.50); %Basophils 0.9 % (0.0-1.0); %Lymphocytes 12.5 % (21.0-51.0); %Monocytes 10.1 % (0.0-10.0); %Neutrophils 65.5 % (42.0-75.0); Hemoglobin 8.5 g/dL (12.0-16.0); Mean Corpuscular HGB CONC 32.3 g/dL (32.0-36.0); Mean Corpuscular Volume 95.9 fL (78.0-98.0); Mean Platelet Volume 10.1 fL (7.4-10.4); Platelet Count 63 thou/uL (130-400); RBC Distribution Width 15.4 % (11.5-14.5); Red Blood Cell (RBC) Count 2.75 mill/uL (4.20-5.40); White Blood Cell (WBC) Count 5.3 thou/uL (4.8-10.8)
[2022-05-26 06:44] LABS: INR-International Normal Ratio 1.5; Prothrombin Time 17.8 sec (12.0-14.7)
[2022-05-26 06:52] LABS: ALT (SGPT) 16 U/L (8-55); AST (SGOT) 29 U/L (5-34); Albumin 2.8 g/dL (3.5-5.0); Alkaline Phosphatase 67 U/L (40-110); Anion Gap 11 mmol/L (10-20); BUN (Urea Nitrogen) 39 mg/dL (9.8-20.1); Bilirubin, Total 0.7 mg/dL (0.2-1.2); Calc. Creatinine Clearance 42 mL/min (70-130); Calcium 8.3 mg/dL (7.8-10.44); Carbon Dioxide 22 mmol/L (22-29); Chloride 111 mmol/L (98-107); Estimated GFR 36; Globulin 2.2 g/dL (2.4-3.5); Glucose 92 mg/dL (70-105); Potassium 3.8 mmol/L (3.5-5.1); Sodium 140 mmol/L (136-145)
[2022-05-26] MEDS: Rifaximin 550 MG TAB PO SCH (08:36)
[2022-05-26] MEDS: Furosemide 40 MG TAB PO SCH (08:36)
[2022-05-26] MEDS: Cholecalciferol 1,000 UNITS (25 MCG) TAB PO SCH (08:37)
[2022-05-26] MEDS: Ferrous Sulfate 325 MG TAB PO SCH ×2 (08:37→12:40)
[2022-05-26] MEDS: Bupropion 150 MG XL TAB PO SCH (08:37)
[2022-05-26] MEDS: Cyanocobalamin (Vitamin B-12) 1,000 MCG TAB PO SCH (08:37)
[2022-05-26] MEDS: Magnesium Oxide 250 MG TAB PO SCH (08:37)
[2022-05-26] MEDS: Folic Acid 1 MG TAB PO SCH (08:37)
[2022-05-26] MEDS: Insulin Glargine 30 UNITS/0.3 ML VIAL SC SCH (08:37)
[2022-05-26] MEDS: Spironolactone 100 MG TAB PO SCH (08:37)
[2022-05-26] MEDS ORDERED: Sodium Bicarbonate 2.5 MEQ/5 ML VIAL ONE (09:29)
[2022-05-26] MEDS ORDERED: Lidocaine 2% PF 5 ML VIAL ONE (09:29)
[2022-05-26] MEDS ORDERED: Albumin 25% 0 ML ONE (09:29)
[2022-05-26 10:49] VITALS: BP 123/69
[2022-05-26 11:17] LABS: RBC Count-Automated (BF) 22 /cu.mm; WBC/Nucleated-Auto (BF) 78 /cu.mm
[2022-05-26 11:40] LABS: Body Fluid Source Ascites Body Fluid
[2022-05-26 11:41] LABS: BF Color Yellow; Clarity Hazy (Clear); Tube # EDTA
[2022-05-26 11:44] LABS: BF Segmented Neutrophils 3 %; Cell Count Non Hematic 73 %; Eosinophils 1 %; Lymphocytes 22 %
== END 2022-05-26 13:15 | disposition home or self-care (01) | DRG 372 ==
LOC: ERS 16:45 → T4-B 20:03
PROVIDERS: ADMIT Emergency Medicine; ATTEND Student in an Organized Health Care Education/Training Program
PROC: 0W9G3ZZ Drainage of Peritoneal Cavity, Percutaneous Approach (ICD-10-PCS; principal; 2022-05-26)
DX: K65.2 Spontaneous bacterial peritonitis (principal); D61.818 Other pancytopenia; K76.6 Portal hypertension; R18.8 Other ascites; I85.10 Secondary esophageal varices without bleeding; Z20.822 Contact with and (suspected) exposure to COVID-19; K21.9 Gastro-esophageal reflux disease without esophagitis; F41.9 Anxiety disorder, unspecified; F32.A Depression, unspecified; K76.0 Fatty (change of) liver, not elsewhere classified; I10 Essential (primary) hypertension; B96.1 Klebsiella pneumoniae [K. pneumoniae] as the cause of diseases classified elsewhere; E11.22 Type 2 diabetes mellitus with diabetic chronic kidney disease; N18.9 Chronic kidney disease, unspecified; I12.9 Hypertensive chronic kidney disease with stage 1 through stage 4 chronic kidney disease, or unspecified chronic kidney disease; F32.9 Major depressive disorder, single episode, unspecified; J45.909 Unspecified asthma, uncomplicated; M19.90 Unspecified osteoarthritis, unspecified site; K74.60 Unspecified cirrhosis of liver; H81.10 Benign paroxysmal vertigo, unspecified ear; G44.209 Tension-type headache, unspecified, not intractable; K72.10 Chronic hepatic failure without coma; R30.0 Dysuria; K31.819 Angiodysplasia of stomach and duodenum without bleeding; Z90.89 Acquired absence of other organs; Z87.891 Personal history of nicotine dependence; Z88.6 Allergy status to analgesic agent; Z88.5 Allergy status to narcotic agent; Z88.8 Allergy status to other drugs, medicaments and biological substances; Z91.09 Other allergy status, other than to drugs and biological substances; Z79.899 Other long term (current) drug therapy; Z79.4 Long term (current) use of insulin; Z90.49 Acquired absence of other specified parts of digestive tract; Z83.3 Family history of diabetes mellitus; Z82.49 Family history of ischemic heart disease and other diseases of the circulatory system; Z80.1 Family history of malignant neoplasm of trachea, bronchus and lung; Z87.442 Personal history of urinary calculi
CPT/HCPCS: 36415; 36416; 49083; 80053; 81001; 82042; 82140; 84157; 85025; 85060; 85610; 87070; 87205; 87324; 87449; 89051; 94760; 96374; 96375; J0696; J1642; J1815; J2001; J2405; J3010; J3490; P9047; Q0162; U0003; U0005

== ENCOUNTER 2022-06-09 10:00 | Day surgery (SDC) | payer OTHER ==
[2022-06-05 13:47] VITALS: BMI 26.6
[~2022-06-09 10:00] MED LIST changes: -Albumin 25% 200 ML ONE; +FLU VACC QS2022-23(6MOS UP)/PF 60 MCG/0.5 ML SYRINGE IM ONE; -Lidocaine 2% PF 5 ML VIAL ONE; -Sodium Bicarbonate 2.5 MEQ/5 ML VIAL ONE
[2022-06-09] MEDS ORDERED: Lidocaine 2% PF 5 ML VIAL ONE (10:30)
[2022-06-09] MEDS ORDERED: Albumin 25% 200 ML ONE (10:30)
[2022-06-09 11:25] LABS: ALT (SGPT) 25 U/L (8-55); AST (SGOT) 32 U/L (5-34); Albumin 2.9 g/dL (3.5-5.0); Alkaline Phosphatase 75 U/L (40-110); Anion Gap 11 mmol/L (10-20); BUN (Urea Nitrogen) 35 mg/dL (9.8-20.1); Bilirubin, Total 1.1 mg/dL (0.2-1.2); Calc. Creatinine Clearance 40 mL/min (70-130); Calcium 7.8 mg/dL (7.8-10.44); Carbon Dioxide 19 mmol/L (22-29); Chloride 111 mmol/L (98-107); Estimated GFR 30; Globulin 2.1 g/dL (2.4-3.5); Glucose 139 mg/dL (70-105); Potassium 4.1 mmol/L (3.5-5.1); Sodium 137 mmol/L (136-145)
[2022-06-09 11:52] LABS: INR-International Normal Ratio 1.4; Prothrombin Time 17.8 sec (12.0-14.7)
[2022-06-09 12:09] LABS: RBC Count-Automated (BF) 22 /cu.mm; WBC/Nucleated-Auto (BF) 22 /cu.mm
[2022-06-09 12:15] VITALS: BP 105/53
[2022-06-09] MEDS ORDERED: Albumin 25% 25 GM/100 ML BOT IVPB SCH (12:30)
[2022-06-09 13:11] LABS: BF Color Colorless; Body Fluid Source Ascites Body Fluid; Tube # EDTA
[2022-06-09 13:12] LABS: Clarity Hazy (Clear)
[2022-06-09 13:13] LABS: Cell Count Non Hematic 84 %; Lymphocytes 16 %
[2022-06-09 13:41] LABS: #Basophils 0.1 thou/uL (0.0-0.2); #Eosinphils 0.4 thou/uL (0.0-0.7); #Lymphocytes 0.6 thou/uL (1.20-3.40); #Monocytes 0.5 thou/uL (0.11-0.59); #Neutrophils 3.1 thou/uL (1.40-6.50); %Basophils 1.2 % (0.0-1.0); %Eosinophils 8.7 % (0.0-10.0); %Lymphocytes 13.1 % (21.0-51.0); %Monocytes 10.3 % (0.0-10.0); %Neutrophils 66.7 % (42.0-75.0); Hemoglobin 8.2 g/dL (12.0-16.0); Mean Corpuscular HGB CONC 31.8 g/dL (32.0-36.0); Mean Corpuscular Hemoglobin 31.4 pg (27.0-31.0); Mean Corpuscular Volume 98.7 fL (78.0-98.0); Mean Platelet Volume 10.2 fL (7.4-10.4); Platelet Count 59 thou/uL (130-400); RBC Distribution Width 14.7 % (11.5-14.5); Red Blood Cell (RBC) Count 2.61 mill/uL (4.20-5.40); White Blood Cell (WBC) Count 4.6 thou/uL (4.8-10.8)
== END 2022-06-09 12:15 | disposition home or self-care (01) ==
LOC: ULT 10:00
PROVIDERS: ATTEND Internal Medicine Gastroenterology
PROC: 0W9G30Z Drainage of Peritoneal Cavity with Drainage Device, Percutaneous Approach (ICD-10-PCS; principal; 2022-06-09)
DX: R18.8 Other ascites (principal)
CPT/HCPCS: 49083; 80053; 82042; 83735; 84157; 85025; 85060; 85610; 87070; 87205; 89051; J1642; J2001; P9047

== ENCOUNTER 2022-06-16 10:10 | Day surgery (SDC) | payer OTHER ==
[2022-06-15 14:25] VITALS: BMI 26.6
[2022-06-16] MEDS ORDERED: Albumin 25% 200 ML ONE (10:39)
[2022-06-16] MEDS ORDERED: Lidocaine 2% PF 5 ML VIAL ONE (10:39)
[2022-06-16] MEDS ORDERED: Sodium Bicarbonate 2.5 MEQ/5 ML VIAL ONE (10:39)
[2022-06-16 14:03] LABS: RBC Count-Automated (BF) 0 /cu.mm; WBC/Nucleated-Auto (BF) 54 /cu.mm
[2022-06-16 14:39] LABS: BF Color White; Body Fluid Source Ascites Body Fluid; Clarity Cloudy/Turbid (Clear); Tube # EDTA
[2022-06-16 14:49] LABS: BF Segmented Neutrophils 14 %; Cell Count Non Hematic 60 %; Lymphocytes 26 %
== END 2022-06-16 12:30 | disposition home or self-care (01) ==
LOC: ULT 10:10
PROVIDERS: ATTEND Internal Medicine Gastroenterology
PROC: 0W9G3ZX Drainage of Peritoneal Cavity, Percutaneous Approach, Diagnostic (ICD-10-PCS; principal; 2022-06-16)
DX: K74.60 Unspecified cirrhosis of liver (principal); R18.8 Other ascites; K72.90 Hepatic failure, unspecified without coma; Z88.2 Allergy status to sulfonamides; Z88.5 Allergy status to narcotic agent; Z88.8 Allergy status to other drugs, medicaments and biological substances; Z91.018 Allergy to other foods; Z91.048 Other nonmedicinal substance allergy status
CPT/HCPCS: 49083; 84157; 85060; 87070; 87205; 89051; J1642; J2001; P9047

== ENCOUNTER 2022-06-23 10:25 | Day surgery (SDC) | payer OTHER ==
[2022-06-22 13:11] VITALS: BMI 26.6
[2022-06-23] MEDS ORDERED: Albumin 25% 200 ML ONE (10:38)
[2022-06-23] MEDS ORDERED: Sodium Bicarbonate 2.5 MEQ/5 ML VIAL ONE (10:38)
[2022-06-23] MEDS ORDERED: Lidocaine 2% PF 5 ML VIAL ONE (10:39)
[2022-06-23 11:37] LABS: #Eosinphils 0.2 thou/uL (0.0-0.7); #Lymphocytes 0.4 thou/uL (1.20-3.40); #Monocytes 0.7 thou/uL (0.11-0.59); #Neutrophils 4.2 thou/uL (1.40-6.50); %Basophils 0.6 % (0.0-1.0); %Eosinophils 4.1 % (0.0-10.0); %Lymphocytes 7.7 % (21.0-51.0); %Monocytes 12.8 % (0.0-10.0); %Neutrophils 74.8 % (42.0-75.0); Mean Corpuscular HGB CONC 31.8 g/dL (32.0-36.0); Mean Corpuscular Hemoglobin 30.9 pg (27.0-31.0); Mean Corpuscular Volume 97.2 fl (78.0-98.0); Mean Platelet Volume 10.6 fL (7.4-10.4); Platelet Count 60 thou/uL (130-400); RBC Distribution Width 13.1 % (11.5-14.5); Red Blood Cell (RBC) Count 2.59 mill/uL (4.20-5.40); White Blood Cell (WBC) Count 5.7 thou/uL (4.8-10.8)
[2022-06-23 11:46] LABS: INR-International Normal Ratio 1.5; PTT 69.5 sec (22.9-36.1); Prothrombin Time 17.8 sec (12.0-14.7)
[2022-06-23 11:52] LABS: ALT (SGPT) 25 U/L (8-55); AST (SGOT) 43 U/L (5-34); Alkaline Phosphatase 84 U/L (40-110); Anion Gap 11 mmol/L (10-20); BUN (Urea Nitrogen) 36 mg/dL (9.8-20.1); Bilirubin, Total 1.1 mg/dL (0.2-1.2); Calc. Creatinine Clearance 42 mL/min (70-130); Calcium 8.3 mg/dL (7.8-10.44); Carbon Dioxide 20 mmol/L (22-29); Chloride 111 mmol/L (98-107); Estimated GFR 32; Globulin 2.1 g/dL (2.4-3.5); Glucose 182 mg/dL (70-105); Magnesium 1.8 mg/dL (1.6-2.6); Potassium 3.7 mmol/L (3.5-5.1); Protein, Total 5.1 g/dL (6.0-8.3); Sodium 138 mmol/L (136-145)
[2022-06-23 12:18] LABS: RBC Count-Automated (BF) 100 /cu.mm; WBC/Nucleated-Auto (BF) 44 /cu.mm
[2022-06-23 12:29] LABS: BF Color Colorless; Body Fluid Source Ascites Body Fluid; Clarity Hazy (Clear); Tube # EDTA
[2022-06-23 12:40] LABS: BF Segmented Neutrophils 4 %; Cell Count Non Hematic 62 %; Lymphocytes 34 %
[2022-06-23 12:46] VITALS: BP 128/79; TEMP 98
== END 2022-06-23 12:30 | disposition home or self-care (01) ==
LOC: ULT 10:25
PROVIDERS: ATTEND Internal Medicine Gastroenterology
PROC: 0W9G3ZX Drainage of Peritoneal Cavity, Percutaneous Approach, Diagnostic (ICD-10-PCS; principal; 2022-06-23)
DX: K74.60 Unspecified cirrhosis of liver (principal); R18.8 Other ascites; K76.82 Hepatic encephalopathy; Z79.2 Long term (current) use of antibiotics; Z79.4 Long term (current) use of insulin; Z79.899 Other long term (current) drug therapy; Z88.2 Allergy status to sulfonamides; Z88.5 Allergy status to narcotic agent; Z88.6 Allergy status to analgesic agent; Z88.8 Allergy status to other drugs, medicaments and biological substances; Z91.018 Allergy to other foods; Z91.048 Other nonmedicinal substance allergy status
CPT/HCPCS: 49083; 80053; 82042; 83735; 84157; 85025; 85060; 85610; 85730; 87070; 87205; 89051; 90471; 90686; 90732; G0008; G0009; J1642; J2001; P9047

== ENCOUNTER 2022-07-01 14:13 | Inpatient (IN) | payer OTHER ==
[2022-07-01] MEDS ORDERED: cefTRIAXone\\ROCEPHIN 2 GM VIAL ONE (14:55)
[2022-07-01 15:01] LABS: #Lymphocytes 0.3 thou/uL (1.20-3.40); #Monocytes 1.2 thou/uL (0.11-0.59); %Basophils 0.2 % (0.0-1.0); %Eosinophils 0.1 % (0.0-10.0); %Lymphocytes 2.3 % (21.0-51.0); %Monocytes 8.3 % (0.0-10.0); %Neutrophils 89.2 % (42.0-75.0); Hemoglobin 7.8 g/dL (12.0-16.0); Mean Corpuscular HGB CONC 31.1 g/dL (32.0-36.0); Mean Corpuscular Hemoglobin 29.2 pg (27.0-31.0); Mean Platelet Volume 6.9 fL (7.4-10.4); Platelet Count 48 thou/uL (130-400); RBC Distribution Width 12.8 % (11.5-14.5); Red Blood Cell (RBC) Count 2.67 mill/uL (4.20-5.40); White Blood Cell (WBC) Count 14.6 thou/uL (4.8-10.8)
[2022-07-01 15:33] LABS: ALT (SGPT) 17 U/L (8-55); AST (SGOT) 19 U/L (5-34); Albumin 3.3 g/dL (3.5-5.0); Alkaline Phosphatase 66 U/L (40-110); Anion Gap 13 mmol/L (10-20); BUN (Urea Nitrogen) 45 mg/dL (9.8-20.1); Calc. Creatinine Clearance 0 mL/min (70-130); Calcium 8.3 mg/dL (7.8-10.44); Carbon Dioxide 18 mmol/L (22-29); Chloride 105 mmol/L (98-107); Estimated GFR 29; Glucose 190 mg/dL (70-105); Lipase 20 U/L (8-78); Magnesium 1.7 mg/dL (1.6-2.6); Potassium 4.2 mmol/L (3.5-5.1); Protein, Total 5.3 g/dL (6.0-8.3); Sodium 132 mmol/L (136-145)
[2022-07-01 15:53] LABS: Bacteria/HPF 4+ HPF (None Seen); Bilirubin Negative (Negative); Blood, Urine 2+ (Negative); Clarity Turbid (Clear); Glucose, Urine (Dipstick) Normal (Negative); Ketone, Urine Negative (Negative); Leukocyte 500 Leu/uL (Negative); Nitrite Negative (Negative); Protein, Urine (Dipstick) Negative (Neg-Trace); Specific Gravity, Urine 1.014 (1.002-1.036); Urobilinogen Normal mg/dL (Less than 2); Yeast-Budding 1+ HPF (None Seen)
[2022-07-01] MEDS ORDERED: Acetaminophen 500 MG TAB ONE (16:06)
[2022-07-01] MEDS ORDERED: Vancomycin 1 GM/200 ML BAG ONE (16:06)
[2022-07-01] MEDS ORDERED: Dextrose 5% in Water 1,000 ML IV PRN (16:23)
[2022-07-01] MEDS ORDERED: Dextrose 50% Abboject 50 ML SYRINGE SLOW IVP PRN (16:23)
[2022-07-01] MEDS ORDERED: traMADol HCl 50 MG TAB PO PRN (16:57)
[2022-07-01] MEDS ORDERED: Ondansetron ODT 4 MG TAB PO PRN (16:57)
[2022-07-01] MEDS ORDERED: hydrOXYzine 25 MG TAB PO PRN (16:57)
[2022-07-01] MEDS ORDERED: Albuterol Sulfate 2.5 mg/0.5 ml Neb NEB PRN (17:25)
[2022-07-01 17:51] LABS: SARS-CoV-2 NAA Rapid Test Not Detected (NotDetected)
[2022-07-01 17:53] VITALS: BMI 25.9
[2022-07-01] MEDS: traMADol HCl 50 MG TAB PO PRN (19:24)
[2022-07-01] MEDS: Furosemide 40 MG TAB PO SCH (21:13)
[2022-07-01] MEDS: Loratadine 10 MG TAB PO SCH (21:14)
[2022-07-01] MEDS: busPIRone HCl 10 MG TAB PO SCH (21:14)
[2022-07-01] MEDS: Cholecalciferol 1,000 UNITS (25 MCG) TAB PO SCH (21:14)
[2022-07-01] MEDS: HumaLOG 300 UNITS/3 ML VIAL SC PRN (21:15)
[2022-07-01] MEDS: Spironolactone 100 MG TAB PO SCH (21:26)
[2022-07-02 06:09] LABS: ALT (SGPT) 14 U/L (8-55); AST (SGOT) 16 U/L (5-34); Albumin 2.8 g/dL (3.5-5.0); Alkaline Phosphatase 54 U/L (40-110); Anion Gap 11 mmol/L (10-20); BUN (Urea Nitrogen) 46 mg/dL (9.8-20.1); Bilirubin, Total 1.3 mg/dL (0.2-1.2); Calc. Creatinine Clearance 40 mL/min (70-130); Calcium 7.8 mg/dL (7.8-10.44); Carbon Dioxide 20 mmol/L (22-29); Chloride 107 mmol/L (98-107); Estimated GFR 32; Globulin 1.8 g/dL (2.4-3.5); Glucose 102 mg/dL (70-105); Protein, Total 4.6 g/dL (6.0-8.3); Sodium 134 mmol/L (136-145)
[2022-07-02 06:28] LABS: #Eosinphils 0.1 thou/uL (0.0-0.7); #Lymphocytes 0.4 thou/uL (1.20-3.40); #Monocytes 0.7 thou/uL (0.11-0.59); #Neutrophils 7.1 thou/uL (1.40-6.50); %Basophils 0.2 % (0.0-1.0); %Eosinophils 0.7 % (0.0-10.0); %Lymphocytes 4.4 % (21.0-51.0); %Monocytes 8.4 % (0.0-10.0); %Neutrophils 86.2 % (42.0-75.0); Mean Corpuscular HGB CONC 31.8 g/dL (32.0-36.0); Mean Corpuscular Hemoglobin 30.2 pg (27.0-31.0); Mean Platelet Volume 7.5 fL (7.4-10.4); Platelet Count 41 thou/uL (130-400); RBC Distribution Width 12.9 % (11.5-14.5); Red Blood Cell (RBC) Count 2.31 mill/uL (4.20-5.40); White Blood Cell (WBC) Count 8.4 thou/uL (4.8-10.8)
[2022-07-02] MEDS: Folic Acid 1 MG TAB PO SCH (08:46)
[2022-07-02] MEDS: Cholecalciferol 1,000 UNITS (25 MCG) TAB PO SCH ×2 (08:46→20:05)
[2022-07-02] MEDS: Midodrine HCl 5 MG TAB PO SCH ×3 (08:46→16:08)
[2022-07-02] MEDS: Cyanocobalamin (Vitamin B-12) 1,000 MCG TAB PO SCH (08:46)
[2022-07-02] MEDS: Magnesium Oxide 250 MG TAB PO SCH (08:46)
[2022-07-02] MEDS: Ferrous Sulfate 325 MG TAB PO SCH ×3 (08:46→16:08)
[2022-07-02] MEDS: busPIRone HCl 10 MG TAB PO SCH ×2 (08:46→20:05)
[2022-07-02] MEDS: traMADol HCl 50 MG TAB PO PRN ×2 (08:46→14:59)
[2022-07-02] MEDS: Furosemide 40 MG TAB PO SCH ×2 (08:46→20:05)
[2022-07-02] MEDS: Bupropion 150 MG XL TAB PO SCH (08:47)
[2022-07-02] MEDS: Spironolactone 100 MG TAB PO SCH ×2 (08:48→20:05)
[2022-07-02] MEDS: Hydrocortisone 1% Cream 30 GM TUBE TOP SCH (08:48)
[2022-07-02] MEDS: Insulin Glargine 30 UNITS/0.3 ML VIAL SC SCH (08:48)
[2022-07-02] MEDS ORDERED: FLU VACC QS2022-23(6MOS UP)/PF 60 MCG/0.5 ML SYRINGE IM ONE (09:00)
[2022-07-02] MEDS: HumaLOG 300 UNITS/3 ML VIAL SC PRN ×3 (11:55→20:12)
[2022-07-02] MEDS: cefTRIAXone\\ROCEPHIN 2 GM in Sodium Chloride 0.9% 100 ML IVPB SCH (15:00)
[2022-07-02] MEDS: Vancomycin 1 GM in Premix Bag 1 BAG IVPB SCH (16:08)
[2022-07-02] MEDS: Loratadine 10 MG TAB PO SCH (20:05)
[2022-07-02] MEDS: Melatonin 3 MG TAB PO PRN (22:33)
[2022-07-03] MEDS: traMADol HCl 50 MG TAB PO PRN ×3 (06:20→20:19)
[2022-07-03 06:51] LABS: Hemoglobin 7.9 g/dL (12.0-16.0); Mean Corpuscular HGB CONC 31.6 g/dL (32.0-36.0); Mean Corpuscular Hemoglobin 30.6 pg (27.0-31.0); Mean Corpuscular Volume 96.6 fl (78.0-98.0); Mean Platelet Volume 10.9 fL (7.4-10.4); Platelet Count 65 thou/uL (130-400); RBC Distribution Width 12.9 % (11.5-14.5); Red Blood Cell (RBC) Count 2.59 mill/uL (4.20-5.40); White Blood Cell (WBC) Count 4.8 thou/uL (4.8-10.8)
[2022-07-03 07:06] LABS: ALT (SGPT) 16 U/L (8-55); AST (SGOT) 21 U/L (5-34); Albumin 2.8 g/dL (3.5-5.0); Alkaline Phosphatase 60 U/L (40-110); Anion Gap 10 mmol/L (10-20); BUN (Urea Nitrogen) 41 mg/dL (9.8-20.1); Bilirubin, Total 0.8 mg/dL (0.2-1.2); Calc. Creatinine Clearance 44 mL/min (70-130); Carbon Dioxide 21 mmol/L (22-29); Chloride 108 mmol/L (98-107); Estimated GFR 36; Glucose 74 mg/dL (70-105); Potassium 3.5 mmol/L (3.5-5.1); Protein, Total 4.8 g/dL (6.0-8.3); Sodium 135 mmol/L (136-145)
[2022-07-03 07:53] LABS: Band 15 % (5-11); Eosinophils 4 % (0-10); Lymphocytes 4 % (21-51); MDiff Complete? YES; Monocytes 12 % (0-10); Neutrophil 65 % (42-75); Platelet Morphology Comment Appears Decreased; Polychromasia SLIGHT = 2-3 cells (100X) (0-2/hpf)
[2022-07-03] MEDS: Ferrous Sulfate 325 MG TAB PO SCH ×3 (08:10→15:17)
[2022-07-03] MEDS: Magnesium Oxide 250 MG TAB PO SCH (08:10)
[2022-07-03] MEDS: Midodrine HCl 5 MG TAB PO SCH ×3 (08:11→15:17)
[2022-07-03] MEDS: Folic Acid 1 MG TAB PO SCH (08:11)
[2022-07-03] MEDS: Spironolactone 100 MG TAB PO SCH ×2 (08:11→20:20)
[2022-07-03] MEDS: busPIRone HCl 10 MG TAB PO SCH ×2 (08:11→20:20)
[2022-07-03] MEDS: Cholecalciferol 1,000 UNITS (25 MCG) TAB PO SCH ×2 (08:11→20:20)
[2022-07-03] MEDS: Furosemide 40 MG TAB PO SCH ×2 (08:11→20:20)
[2022-07-03] MEDS: Hydrocortisone 1% Cream 30 GM TUBE TOP SCH (08:11)
[2022-07-03] MEDS: Cyanocobalamin (Vitamin B-12) 1,000 MCG TAB PO SCH (08:11)
[2022-07-03] MEDS: Insulin Glargine 30 UNITS/0.3 ML VIAL SC SCH (08:14)
[2022-07-03] MEDS: Bupropion 150 MG XL TAB PO SCH (09:03)
[2022-07-03] MEDS: HumaLOG 300 UNITS/3 ML VIAL SC PRN ×2 (12:51→20:46)
[2022-07-03] MEDS: cefTRIAXone\\ROCEPHIN 2 GM in Sodium Chloride 0.9% 100 ML IVPB SCH (15:17)
[2022-07-03 15:49] LABS: Vancomycin, Trough 12.8 ug/mL
[2022-07-03] MEDS: Vancomycin 1 GM in Premix Bag 1 BAG IVPB SCH (16:26)
[2022-07-03] MEDS: Loratadine 10 MG TAB PO SCH (20:20)
[2022-07-04] MEDS: Melatonin 3 MG TAB PO PRN (01:15)
[2022-07-04 06:30] LABS: #Eosinphils 0.2 thou/uL (0.0-0.7); #Lymphocytes 0.4 thou/uL (1.20-3.40); #Monocytes 0.6 thou/uL (0.11-0.59); #Neutrophils 2.8 thou/uL (1.40-6.50); %Basophils 1.2 % (0.0-1.0); %Eosinophils 5.8 % (0.0-10.0); %Lymphocytes 9.7 % (21.0-51.0); %Monocytes 14.5 % (0.0-10.0); %Neutrophils 68.9 % (42.0-75.0); Hemoglobin 7.3 g/dL (12.0-16.0); Mean Corpuscular HGB CONC 31.5 g/dL (32.0-36.0); Mean Corpuscular Volume 95.2 fl (78.0-98.0); Platelet Count 62 thou/uL (130-400); RBC Distribution Width 12.8 % (11.5-14.5); Red Blood Cell (RBC) Count 2.44 mill/uL (4.20-5.40); White Blood Cell (WBC) Count 4.1 thou/uL (4.8-10.8)
[2022-07-04 06:39] LABS: ALT (SGPT) 19 U/L (8-55); AST (SGOT) 30 U/L (5-34); Albumin 2.7 g/dL (3.5-5.0); Alkaline Phosphatase 62 U/L (40-110); Anion Gap 10 mmol/L (10-20); BUN (Urea Nitrogen) 39 mg/dL (9.8-20.1); Bilirubin, Total 0.6 mg/dL (0.2-1.2); Calc. Creatinine Clearance 45 mL/min (70-130); Calcium 8.1 mg/dL (7.8-10.44); Carbon Dioxide 19 mmol/L (22-29); Chloride 108 mmol/L (98-107); Estimated GFR 37; Glucose 133 mg/dL (70-105); Potassium 3.5 mmol/L (3.5-5.1); Protein, Total 4.7 g/dL (6.0-8.3); Sodium 133 mmol/L (136-145)
[2022-07-04] MEDS: traMADol HCl 50 MG TAB PO PRN ×2 (08:16→20:34)
[2022-07-04] MEDS: Folic Acid 1 MG TAB PO SCH (08:16)
[2022-07-04] MEDS: Spironolactone 100 MG TAB PO SCH ×2 (08:16→20:36)
[2022-07-04] MEDS: Magnesium Oxide 250 MG TAB PO SCH (08:16)
[2022-07-04] MEDS: Insulin Glargine 30 UNITS/0.3 ML VIAL SC SCH (08:16)
[2022-07-04] MEDS: Cyanocobalamin (Vitamin B-12) 1,000 MCG TAB PO SCH (08:16)
[2022-07-04] MEDS: Furosemide 40 MG TAB PO SCH ×2 (08:16→20:36)
[2022-07-04] MEDS: Ferrous Sulfate 325 MG TAB PO SCH ×3 (08:16→16:00)
[2022-07-04] MEDS: Bupropion 150 MG XL TAB PO SCH (08:17)
[2022-07-04] MEDS: busPIRone HCl 10 MG TAB PO SCH ×2 (08:17→20:35)
[2022-07-04] MEDS: Cholecalciferol 1,000 UNITS (25 MCG) TAB PO SCH ×2 (08:17→20:35)
[2022-07-04] MEDS: Midodrine HCl 5 MG TAB PO SCH ×3 (08:17→16:00)
[2022-07-04] MEDS: Hydrocortisone 1% Cream 30 GM TUBE TOP SCH (08:20)
[2022-07-04] MEDS: HumaLOG 300 UNITS/3 ML VIAL SC PRN (12:09)
[2022-07-04] MEDS: cefTRIAXone\\ROCEPHIN 2 GM in Sodium Chloride 0.9% 100 ML IVPB SCH (14:46)
[2022-07-04] MEDS: Vancomycin 1 GM in Premix Bag 1 BAG IVPB SCH (16:00)
[2022-07-04] MEDS: Loratadine 10 MG TAB PO SCH (20:36)
[2022-07-05] MEDS: Melatonin 3 MG TAB PO PRN ×2 (00:42→20:31)
[2022-07-05] MEDS: Insulin Glargine 30 UNITS/0.3 ML VIAL SC SCH (08:31)
[2022-07-05] MEDS: Ferrous Sulfate 325 MG TAB PO SCH ×3 (08:32→15:10)
[2022-07-05] MEDS: traMADol HCl 50 MG TAB PO PRN ×2 (08:32→20:30)
[2022-07-05] MEDS: Midodrine HCl 5 MG TAB PO SCH ×3 (08:32→15:11)
[2022-07-05] MEDS: busPIRone HCl 10 MG TAB PO SCH ×2 (08:32→20:30)
[2022-07-05] MEDS: Folic Acid 1 MG TAB PO SCH (08:32)
[2022-07-05] MEDS: Furosemide 40 MG TAB PO SCH ×2 (08:32→20:30)
[2022-07-05] MEDS: Cholecalciferol 1,000 UNITS (25 MCG) TAB PO SCH ×2 (08:32→20:30)
[2022-07-05] MEDS: Magnesium Oxide 250 MG TAB PO SCH (08:32)
[2022-07-05] MEDS: Cyanocobalamin (Vitamin B-12) 1,000 MCG TAB PO SCH (08:32)
[2022-07-05] MEDS: Spironolactone 100 MG TAB PO SCH ×2 (08:33→20:30)
[2022-07-05] MEDS: Hydrocortisone 1% Cream 30 GM TUBE TOP SCH (08:38)
[2022-07-05] MEDS: Bupropion 150 MG XL TAB PO SCH (08:38)
[2022-07-05 09:10] LABS: ALT (SGPT) 19 U/L (8-55); AST (SGOT) 28 U/L (5-34); Albumin 2.8 g/dL (3.5-5.0); Alkaline Phosphatase 65 U/L (40-110); Anion Gap 11 mmol/L (10-20); BUN (Urea Nitrogen) 33 mg/dL (9.8-20.1); Bilirubin, Total 0.7 mg/dL (0.2-1.2); Calc. Creatinine Clearance 45 mL/min (70-130); Calcium 8.2 mg/dL (7.8-10.44); Carbon Dioxide 20 mmol/L (22-29); Chloride 109 mmol/L (98-107); Estimated GFR 37; Globulin 2.1 g/dL (2.4-3.5); Glucose 99 mg/dL (70-105); Potassium 3.5 mmol/L (3.5-5.1); Protein, Total 4.9 g/dL (6.0-8.3); Sodium 136 mmol/L (136-145)
[2022-07-05 09:44] LABS: Band 17 % (5-11); Eosinophils 2 % (0-10); Helmet Cells SLIGHT = 2-5 cells (100X) (0-1/hpf); Hemoglobin 8.2 g/dL (12.0-16.0); Hypochromia SLIGHT = 6-15 cells (100X) (0-5/hpf); Lymphocytes 11 % (21-51); MDiff Complete? YES; Mean Corpuscular HGB CONC 31.1 g/dL (32.0-36.0); Mean Corpuscular Hemoglobin 29.8 pg (27.0-31.0); Mean Corpuscular Volume 95.9 fl (78.0-98.0); Mean Platelet Volume 10.6 fL (7.4-10.4); Monocytes 18 % (0-10); Neutrophil 49 % (42-75); Ovalocytes SLIGHT = 2-5 cells (100X) (0-1/hpf); Platelet Count 79 thou/uL (130-400); Platelet Morphology Comment Appears Decreased; Polychromasia SLIGHT = 2-3 cells (100X) (0-2/hpf); RBC Distribution Width 12.8 % (11.5-14.5); Reactive Lymphocytes 2 % (0-10); Red Blood Cell (RBC) Count 2.74 mill/uL (4.20-5.40); Schistocytes SLIGHT = 2-5 cells (100X) (0-1/hpf); Tear Drops SLIGHT = 2-5 cells (100X) (0-1/hpf); White Blood Cell (WBC) Count 4.2 thou/uL (4.8-10.8)
[2022-07-05] MEDS: cefTRIAXone\\ROCEPHIN 2 GM in Sodium Chloride 0.9% 100 ML IVPB SCH (15:10)
[2022-07-05 15:27] LABS: Vancomycin, Trough 21.1 ug/mL
[2022-07-05] MEDS ORDERED: Vancomycin HCl 750 MG in Sodium Chloride 0.9% 250 ML 250 ML IVPB SCH (16:00)
[2022-07-05] MEDS: Loratadine 10 MG TAB PO SCH (20:30)
[2022-07-06 06:25] LABS: Hemoglobin 7.7 g/dL (12.0-16.0); Mean Corpuscular Volume 93.7 fl (78.0-98.0); Mean Platelet Volume 10.3 fL (7.4-10.4); Platelet Count 94 thou/uL (130-400); RBC Distribution Width 12.9 % (11.5-14.5); Red Blood Cell (RBC) Count 2.64 mill/uL (4.20-5.40); White Blood Cell (WBC) Count 4.9 thou/uL (4.8-10.8)
[2022-07-06 06:44] LABS: ALT (SGPT) 19 U/L (8-55); AST (SGOT) 28 U/L (5-34); Albumin 2.7 g/dL (3.5-5.0); Alkaline Phosphatase 63 U/L (40-110); Anion Gap 11 mmol/L (10-20); BUN (Urea Nitrogen) 31 mg/dL (9.8-20.1); Bilirubin, Total 0.7 mg/dL (0.2-1.2); Calc. Creatinine Clearance 49 mL/min (70-130); Calcium 8.2 mg/dL (7.8-10.44); Carbon Dioxide 21 mmol/L (22-29); Chloride 110 mmol/L (98-107); Estimated GFR 41; Globulin 2.1 g/dL (2.4-3.5); Glucose 61 mg/dL (70-105); Potassium 3.5 mmol/L (3.5-5.1); Protein, Total 4.8 g/dL (6.0-8.3); Sodium 138 mmol/L (136-145)
[2022-07-06 06:45] LABS: Band 15 % (5-11); Eosinophils 5 % (0-10); Lymphocytes 12 % (21-51); MDiff Complete? YES; Monocytes 6 % (0-10); Neutrophil 62 % (42-75); Platelet Morphology Comment Appears Decreased
[2022-07-06] MEDS: Magnesium Oxide 250 MG TAB PO SCH (08:56)
[2022-07-06] MEDS: Folic Acid 1 MG TAB PO SCH (08:56)
[2022-07-06] MEDS: Furosemide 40 MG TAB PO SCH (08:56)
[2022-07-06] MEDS: busPIRone HCl 10 MG TAB PO SCH (08:56)
[2022-07-06] MEDS: Cyanocobalamin (Vitamin B-12) 1,000 MCG TAB PO SCH (08:56)
[2022-07-06] MEDS: Ferrous Sulfate 325 MG TAB PO SCH ×2 (08:56→12:21)
[2022-07-06] MEDS: Bupropion 150 MG XL TAB PO SCH (08:56)
[2022-07-06] MEDS: Spironolactone 100 MG TAB PO SCH (08:56)
[2022-07-06] MEDS: Insulin Glargine 30 UNITS/0.3 ML VIAL SC SCH (08:57)
[2022-07-06] MEDS: Midodrine HCl 5 MG TAB PO SCH ×2 (08:57→12:21)
[2022-07-06] MEDS: Cholecalciferol 1,000 UNITS (25 MCG) TAB PO SCH (08:57)
[2022-07-06] MEDS: Hydrocortisone 1% Cream 30 GM TUBE TOP SCH (08:58)
[2022-07-06] MEDS: traMADol HCl 50 MG TAB PO PRN (09:03)
[2022-07-06] MEDS ORDERED: traMADol HCl 50 MG TAB PO PRN (10:09)
[2022-07-06 11:48] VITALS: BP 141/77; TEMP 98
[2022-07-06] MEDS ORDERED: Rifaximin 550 MG TAB PO SCH (21:00)
== END 2022-07-06 14:07 | disposition home or self-care (01) | DRG 871 ==
LOC: ERS 14:13 → T4-A 16:17
PROVIDERS: ADMIT Student in an Organized Health Care Education/Training Program; ATTEND Family Medicine
DX: A41.9 Sepsis, unspecified organism (principal); Z20.822 Contact with and (suspected) exposure to COVID-19; K65.2 Spontaneous bacterial peritonitis; K76.6 Portal hypertension; E87.1 Hypo-osmolality and hyponatremia; I85.10 Secondary esophageal varices without bleeding; L03.311 Cellulitis of abdominal wall; F41.9 Anxiety disorder, unspecified; K21.9 Gastro-esophageal reflux disease without esophagitis; K76.0 Fatty (change of) liver, not elsewhere classified; J30.9 Allergic rhinitis, unspecified; D69.6 Thrombocytopenia, unspecified; D50.9 Iron deficiency anemia, unspecified; F32.9 Major depressive disorder, single episode, unspecified; K74.60 Unspecified cirrhosis of liver; K31.819 Angiodysplasia of stomach and duodenum without bleeding; N18.32 Chronic kidney disease, stage 3b; R21 Rash and other nonspecific skin eruption; E11.22 Type 2 diabetes mellitus with diabetic chronic kidney disease; Z28.21 Immunization not carried out because of patient refusal; Z88.5 Allergy status to narcotic agent; Z88.2 Allergy status to sulfonamides; Z88.8 Allergy status to other drugs, medicaments and biological substances; Z91.09 Other allergy status, other than to drugs and biological substances; Z79.899 Other long term (current) drug therapy; Z79.4 Long term (current) use of insulin; Z90.49 Acquired absence of other specified parts of digestive tract; Z87.891 Personal history of nicotine dependence; Z83.3 Family history of diabetes mellitus; Z82.49 Family history of ischemic heart disease and other diseases of the circulatory system; Z80.1 Family history of malignant neoplasm of trachea, bronchus and lung
CPT/HCPCS: 36415; 36416; 71045; 80053; 80202; 81003; 81015; 82140; 83605; 83690; 83735; 83880; 85025; 86850; 86900; 86901; 87040; 87077; 87086; 87149; 87186; 93005; 96365; 96367; J0696; J1642; J1815; J3370; J3490; J7050; U0002

== ENCOUNTER 2022-07-07 10:09 | Day surgery (SDC) | payer OTHER ==
[2022-07-07] MEDS ORDERED: Sodium Bicarbonate 2.5 MEQ/5 ML VIAL ONE (10:21)
[2022-07-07] MEDS ORDERED: Lidocaine 2% PF 5 ML VIAL ONE (10:21)
[2022-07-07] MEDS ORDERED: Albumin 25% 25 GM/100 ML BOT ONE (10:36)
[2022-07-07 12:25] LABS: RBC Count-Automated (BF) 78 /cu.mm; WBC/Nucleated-Auto (BF) 155 /cu.mm
[2022-07-07 12:32] LABS: BF Color Colorless; Body Fluid Source Ascites Body Fluid; Clarity Clear (Clear); Tube # 1
[2022-07-07 13:05] LABS: BF Segmented Neutrophils 4 %; Cell Count Non Hematic 81 %; Lymphocytes 15 %
[2022-07-07] MEDS ORDERED: FLU VACC QS2022-23(6MOS UP)/PF 60 MCG/0.5 ML SYRINGE IM ONE (14:00)
[2022-07-08 03:03] VITALS: BP 108/58; TEMP 98.1; BMI 24.7
== END 2022-07-07 12:20 | disposition home or self-care (01) ==
LOC: ULT 10:09
PROVIDERS: ATTEND Internal Medicine Gastroenterology
PROC: 0W9G3ZX Drainage of Peritoneal Cavity, Percutaneous Approach, Diagnostic (ICD-10-PCS; principal; 2022-07-07)
DX: K74.60 Unspecified cirrhosis of liver (principal); R18.8 Other ascites; K76.82 Hepatic encephalopathy; Z79.4 Long term (current) use of insulin; Z79.899 Other long term (current) drug therapy; Z88.2 Allergy status to sulfonamides; Z88.5 Allergy status to narcotic agent; Z88.6 Allergy status to analgesic agent; Z88.8 Allergy status to other drugs, medicaments and biological substances; Z91.018 Allergy to other foods; Z91.048 Other nonmedicinal substance allergy status
CPT/HCPCS: 49083; 85060; 87070; 87205; 89051; J1642; J2001

== ENCOUNTER 2022-07-14 10:06 | Day surgery (SDC) | payer OTHER ==
[2022-07-13 15:07] VITALS: BMI 26.6
[2022-07-14] MEDS ORDERED: Albumin 25% 200 ML ONE (10:58)
[2022-07-14] MEDS ORDERED: Lidocaine 2% PF 5 ML VIAL ONE (10:59)
[2022-07-14] MEDS ORDERED: Sodium Bicarbonate 2.5 MEQ/5 ML VIAL ONE (10:59)
[2022-07-14 14:00] VITALS: BP 120/67; TEMP 98.1
[2022-07-14 14:35] LABS: RBC Count-Automated (BF) 33 /cu.mm; WBC/Nucleated-Auto (BF) 33 /cu.mm
[2022-07-14 15:07] LABS: BF Color Colorless; Body Fluid Source Ascites Body Fluid; Clarity Hazy (Clear); Tube # EDTA
[2022-07-14 15:10] LABS: BF Segmented Neutrophils 1 %; Cell Count Non Hematic 57 %; Eosinophils 1 %; Lymphocytes 41 %
== END 2022-07-14 13:00 | disposition home or self-care (01) ==
LOC: ULT 10:06
PROVIDERS: ATTEND Internal Medicine Gastroenterology
PROC: 0W9G3ZX Drainage of Peritoneal Cavity, Percutaneous Approach, Diagnostic (ICD-10-PCS; principal; 2022-07-14)
DX: K74.60 Unspecified cirrhosis of liver (principal); R18.8 Other ascites; K76.82 Hepatic encephalopathy; Z88.2 Allergy status to sulfonamides; Z88.5 Allergy status to narcotic agent; Z88.6 Allergy status to analgesic agent; Z88.8 Allergy status to other drugs, medicaments and biological substances; Z91.018 Allergy to other foods; Z91.048 Other nonmedicinal substance allergy status
CPT/HCPCS: 49083; 82042; 84157; 85060; 87070; 87205; 89051; J1642; J2001; P9047

== ENCOUNTER 2022-07-21 09:50 | Day surgery (SDC) | payer OTHER ==
[2022-07-20 11:03] VITALS: BMI 26.6
[2022-07-21] MEDS ORDERED: Albumin 25% 200 ML ONE (09:55)
[2022-07-21] MEDS ORDERED: Sodium Bicarbonate 2.5 MEQ/5 ML VIAL ONE (09:55)
[2022-07-21] MEDS ORDERED: Lidocaine 2% PF 5 ML VIAL ONE (09:55)
[2022-07-21 12:02] LABS: Hemoglobin 7.4 g/dL (12.0-16.0); Mean Corpuscular HGB CONC 32.4 g/dL (32.0-36.0); Mean Corpuscular Volume 95.8 fl (78.0-98.0); Mean Platelet Volume 10.3 fL (7.4-10.4); Platelet Count 80 10x3/uL (130-400); Red Blood Cell (RBC) Count 2.37 mill/uL (4.20-5.40); White Blood Cell (WBC) Count 3.4 10x3/uL (4.8-10.8)
[2022-07-21 12:10] LABS: INR-International Normal Ratio 1.4; Prothrombin Time 17.4 sec (12.0-14.7)
[2022-07-21 12:11] LABS: PTT 84.2 sec (22.9-36.1)
[2022-07-21 12:13] VITALS: BP 119/61; TEMP 98.2
[2022-07-21 12:13] LABS: ALT (SGPT) 20 U/L (8-55); AST (SGOT) 25 U/L (5-34); Albumin 3.1 g/dL (3.5-5.0); Alkaline Phosphatase 75 U/L (40-110); Anion Gap 15 mmol/L (10-20); BUN (Urea Nitrogen) 45 mg/dL (9.8-20.1); Bilirubin, Total 1.4 mg/dL (0.2-1.2); Calc. Creatinine Clearance 40 mL/min (70-130); Calcium 7.1 mg/dL (7.8-10.44); Carbon Dioxide 19 mmol/L (22-29); Chloride 105 mmol/L (98-107); Estimated GFR 30; Globulin 2.2 g/dL (2.4-3.5); Glucose 346 mg/dL (70-105); Magnesium 2.1 mg/dL (1.6-2.6); Protein, Total 5.3 g/dL (6.0-8.3); Sodium 134 mmol/L (136-145)
[2022-07-21 12:36] LABS: RBC Count-Automated (BF) 140 /cu.mm; WBC/Nucleated-Auto (BF) 32 /cu.mm
[2022-07-21 12:43] LABS: BF Color Colorless; Body Fluid Source Ascites Body Fluid; Clarity Hazy (Clear); Tube # EDTA
[2022-07-21 13:10] LABS: BF Segmented Neutrophils 3 %; Cell Count Non Hematic 66 %; Lymphocytes 31 %
[2022-07-21] MEDS ORDERED: FLU VACC QS2022-23(6MOS UP)/PF 60 MCG/0.5 ML SYRINGE IM ONE (13:30)
== END 2022-07-21 11:55 | disposition home or self-care (01) ==
LOC: ULT 09:50
PROVIDERS: ATTEND Internal Medicine Gastroenterology
PROC: 0W9G3ZX Drainage of Peritoneal Cavity, Percutaneous Approach, Diagnostic (ICD-10-PCS; principal; 2022-07-21)
DX: K74.60 Unspecified cirrhosis of liver (principal); R18.8 Other ascites; K65.2 Spontaneous bacterial peritonitis; K72.10 Chronic hepatic failure without coma; I12.9 Hypertensive chronic kidney disease with stage 1 through stage 4 chronic kidney disease, or unspecified chronic kidney disease; E11.22 Type 2 diabetes mellitus with diabetic chronic kidney disease; N18.32 Chronic kidney disease, stage 3b; D63.1 Anemia in chronic kidney disease; D69.6 Thrombocytopenia, unspecified; J45.909 Unspecified asthma, uncomplicated; K21.9 Gastro-esophageal reflux disease without esophagitis; I85.10 Secondary esophageal varices without bleeding; K76.6 Portal hypertension; K31.89 Other diseases of stomach and duodenum; M48.00 Spinal stenosis, site unspecified; N39.46 Mixed incontinence; Z87.891 Personal history of nicotine dependence; Z79.2 Long term (current) use of antibiotics; Z79.4 Long term (current) use of insulin; Z79.899 Other long term (current) drug therapy; Z88.2 Allergy status to sulfonamides; Z88.5 Allergy status to narcotic agent; Z88.6 Allergy status to analgesic agent; Z88.8 Allergy status to other drugs, medicaments and biological substances; Z91.018 Allergy to other foods; Z91.048 Other nonmedicinal substance allergy status
CPT/HCPCS: 49083; 80053; 82042; 83735; 85025; 85060; 85610; 85730; 87070; 87205; 89051; J1642; J2001; P9047

== ENCOUNTER 2022-07-28 09:33 | Day surgery (SDC) | payer OTHER ==
[2022-07-27 14:26] VITALS: BMI 26.6
[2022-07-28] MEDS ORDERED: Albumin 25% 200 ML ONE (10:06)
[2022-07-28] MEDS ORDERED: Lidocaine 2% PF 5 ML VIAL ONE (10:07)
[2022-07-28] MEDS ORDERED: Albumin 25% 25 GM/100 ML BOT IVPB SCH (10:45)
[2022-07-28 11:30] VITALS: BP 125/59
[2022-07-28 13:21] LABS: RBC Count-Automated (BF) 65 /cu.mm; WBC/Nucleated-Auto (BF) 54 /cu.mm
[2022-07-28 13:43] LABS: BF Color Colorless; Body Fluid Source Ascites Body Fluid; Clarity Hazy (Clear); Tube # EDTA
[2022-07-28 13:48] LABS: BF Segmented Neutrophils 2 %; Cell Count Non Hematic 87 %; Lymphocytes 11 %
== END 2022-07-28 12:05 | disposition home or self-care (01) ==
LOC: ULT 09:33
PROVIDERS: ATTEND Internal Medicine Gastroenterology
PROC: 0W9G3ZX Drainage of Peritoneal Cavity, Percutaneous Approach, Diagnostic (ICD-10-PCS; principal; 2022-07-28)
DX: K74.60 Unspecified cirrhosis of liver (principal); R18.8 Other ascites; K65.2 Spontaneous bacterial peritonitis; K72.10 Chronic hepatic failure without coma; I12.9 Hypertensive chronic kidney disease with stage 1 through stage 4 chronic kidney disease, or unspecified chronic kidney disease; E11.22 Type 2 diabetes mellitus with diabetic chronic kidney disease; N18.32 Chronic kidney disease, stage 3b; D63.1 Anemia in chronic kidney disease; K21.9 Gastro-esophageal reflux disease without esophagitis; D69.6 Thrombocytopenia, unspecified; K76.6 Portal hypertension; K31.89 Other diseases of stomach and duodenum; Z87.891 Personal history of nicotine dependence; Z79.2 Long term (current) use of antibiotics; Z79.4 Long term (current) use of insulin; Z79.899 Other long term (current) drug therapy; Z88.2 Allergy status to sulfonamides; Z88.5 Allergy status to narcotic agent; Z88.6 Allergy status to analgesic agent; Z88.8 Allergy status to other drugs, medicaments and biological substances; Z91.018 Allergy to other foods; Z91.048 Other nonmedicinal substance allergy status
CPT/HCPCS: 49083; 82042; 84155; 85060; 87070; 87205; 89051; J1642; J2001; P9047

== ENCOUNTER 2022-08-04 09:33 | Day surgery (SDC) | payer OTHER ==
[2022-08-04] MEDS ORDERED: Sodium Bicarbonate 2.5 MEQ/5 ML VIAL ONE (10:08)
[2022-08-04] MEDS ORDERED: Albumin 25% 200 ML ONE (10:08)
[2022-08-04] MEDS ORDERED: Lidocaine 2% PF 5 ML VIAL ONE (10:08)
[2022-08-04] MEDS ORDERED: Albumin 25% 25 GM/100 ML BOT IVPB SCH (10:30)
[2022-08-04 11:23] LABS: #Eosinphils 0.3 thou/uL (0.0-0.7); #Lymphocytes 0.5 thou/uL (1.20-3.40); #Neutrophils 6.2 thou/uL (1.40-6.50); %Basophils 0.6 % (0.0-1.0); %Eosinophils 3.9 % (0.0-10.0); %Lymphocytes 5.9 % (21.0-51.0); %Monocytes 12.4 % (0.0-10.0); %Neutrophils 77.2 % (42.0-75.0); Hemoglobin 7.9 g/dL (12.0-16.0); Mean Corpuscular HGB CONC 30.7 g/dL (32.0-36.0); Mean Corpuscular Hemoglobin 29.7 pg (27.0-31.0); Mean Corpuscular Volume 96.7 fl (78.0-98.0); Mean Platelet Volume 9.9 fL (7.4-10.4); Platelet Count 87 10x3/uL (130-400); Red Blood Cell (RBC) Count 2.67 mill/uL (4.20-5.40)
[2022-08-04 11:29] LABS: INR-International Normal Ratio 1.3
[2022-08-04 11:30] LABS: PTT 42.8 sec (22.9-36.1)
[2022-08-04 11:36] LABS: ALT (SGPT) 27 U/L (8-55); AST (SGOT) 29 U/L (5-34); Albumin 3.3 g/dL (3.5-5.0); Alkaline Phosphatase 91 U/L (40-110); Anion Gap 15 mmol/L (10-20); BUN (Urea Nitrogen) 59 mg/dL (9.8-20.1); Bilirubin, Total 0.8 mg/dL (0.2-1.2); Calc. Creatinine Clearance 0 mL/min (70-130); Calcium 8.5 mg/dL (7.8-10.44); Carbon Dioxide 18 mmol/L (22-29); Chloride 106 mmol/L (98-107); Estimated GFR 22; Globulin 2.5 g/dL (2.4-3.5); Glucose 169 mg/dL (70-105); Magnesium 2.3 mg/dL (1.6-2.6); Potassium 4.9 mmol/L (3.5-5.1); Protein, Total 5.8 g/dL (6.0-8.3); Sodium 134 mmol/L (136-145)
[2022-08-04 12:03] LABS: RBC Count-Automated (BF) 0 /cu.mm; WBC/Nucleated-Auto (BF) 119 /cu.mm
[2022-08-04 12:26] LABS: BF Color White; Body Fluid Source Ascites Body Fluid; Clarity Hazy (Clear); Tube # EDTA
[2022-08-04 12:28] LABS: BF Segmented Neutrophils 4 %; Cell Count Non Hematic 60 %; Lymphocytes 36 %
[2022-08-04 13:00] VITALS: BP 123/50
== END 2022-08-04 12:10 | disposition home or self-care (01) ==
LOC: ULT 09:33
PROVIDERS: ATTEND Internal Medicine Gastroenterology
PROC: 0W9G3ZX Drainage of Peritoneal Cavity, Percutaneous Approach, Diagnostic (ICD-10-PCS; principal; 2022-08-04)
DX: K74.60 Unspecified cirrhosis of liver (principal); R18.8 Other ascites; K65.2 Spontaneous bacterial peritonitis; K76.82 Hepatic encephalopathy; K31.819 Angiodysplasia of stomach and duodenum without bleeding; Z87.891 Personal history of nicotine dependence; Z79.4 Long term (current) use of insulin; Z79.899 Other long term (current) drug therapy; Z88.2 Allergy status to sulfonamides; Z88.5 Allergy status to narcotic agent; Z88.6 Allergy status to analgesic agent; Z88.8 Allergy status to other drugs, medicaments and biological substances; Z91.018 Allergy to other foods; Z91.048 Other nonmedicinal substance allergy status
CPT/HCPCS: 49083; 80053; 83735; 85025; 85060; 85610; 85730; 87070; 87205; 89051; J1642; J2001; P9047

== ENCOUNTER 2022-08-09 23:39 | Inpatient (IN) | payer OTHER ==
[2022-08-10] MEDS ORDERED: Ondansetron PF 4 MG/2 ML Vial ONE (00:30)
[2022-08-10 00:35] LABS: #Basophils 0.1 thou/uL (0.0-0.2); #Eosinphils 0.5 thou/uL (0.0-0.7); #Lymphocytes 0.5 thou/uL (1.20-3.40); %Basophils 0.9 % (0.0-1.0); %Eosinophils 7.5 % (0.0-10.0); %Lymphocytes 6.5 % (21.0-51.0); %Monocytes 13.9 % (0.0-10.0); %Neutrophils 71.2 % (42.0-75.0); Hemoglobin 7.3 g/dL (12.0-16.0); Mean Corpuscular Hemoglobin 30.8 pg (27.0-31.0); Mean Corpuscular Volume 96.4 fl (78.0-98.0); Mean Platelet Volume 10.3 fL (7.4-10.4); Platelet Count 84 10x3/uL (130-400); Red Blood Cell (RBC) Count 2.37 mill/uL (4.20-5.40); White Blood Cell (WBC) Count 7.1 10x3/uL (4.8-10.8)
[2022-08-10 00:36] LABS: INR-International Normal Ratio 1.3; Prothrombin Time 17.2 sec (12.0-14.7)
[2022-08-10] MEDS ORDERED: FENTANYL 50 MCG/ML 1 ML VIAL ONE ×2 (00:43)
[2022-08-10 00:47] LABS: ALT (SGPT) 25 U/L (8-55); AST (SGOT) 31 U/L (5-34); Albumin 3.2 g/dL (3.5-5.0); Alkaline Phosphatase 77 U/L (40-110); Anion Gap 13 mmol/L (10-20); BUN (Urea Nitrogen) 73 mg/dL (9.8-20.1); Bilirubin, Total 0.7 mg/dL (0.2-1.2); Calc. Creatinine Clearance 0 mL/min (70-130); Calcium 8.6 mg/dL (7.8-10.44); Carbon Dioxide 18 mmol/L (22-29); Chloride 106 mmol/L (98-107); Estimated GFR 20; Globulin 2.3 g/dL (2.4-3.5); Glucose 288 mg/dL (70-105); Lipase 40 U/L (8-78); Magnesium 2.3 mg/dL (1.6-2.6); Potassium 4.9 mmol/L (3.5-5.1); Protein, Total 5.5 g/dL (6.0-8.3); Sodium 132 mmol/L (136-145)
[2022-08-10] MEDS ORDERED: Pantoprazole 40 MG VIAL ONE (01:24)
[2022-08-10] MEDS ORDERED: Ondansetron ODT 4 MG TAB PO PRN (02:34)
[2022-08-10] MEDS ORDERED: Ondansetron PF 4 MG/2 ML Vial IVP PRN (02:34)
[2022-08-10] MEDS ORDERED: Calcium Carbonate 500 MG ChewTAB PO PRN (02:34)
[2022-08-10] MEDS ORDERED: Octreotide Acetate 50 MCG/ML AMP SLOW IVP SCH (02:45)
[2022-08-10] MEDS ORDERED: Dextrose 5% in Water 1,000 ML IV PRN (02:50)
[2022-08-10] MEDS ORDERED: Dextrose 50% Abboject 50 ML SYRINGE SLOW IVP PRN (02:50)
[2022-08-10] MEDS ORDERED: HumaLOG 300 UNITS/3 ML VIAL SC PRN (02:50)
[2022-08-10] MEDS ORDERED: Octreotide Acetate 500 MCG/ML VIAL ONE (03:04)
[2022-08-10 04:05] LABS: #Eosinphils 0.4 thou/uL (0.0-0.7); #Lymphocytes 0.6 thou/uL (1.20-3.40); #Monocytes 0.9 thou/uL (0.11-0.59); #Neutrophils 4.8 thou/uL (1.40-6.50); %Basophils 0.6 % (0.0-1.0); %Eosinophils 6.3 % (0.0-10.0); %Lymphocytes 8.1 % (21.0-51.0); Mean Corpuscular HGB CONC 32.5 g/dL (32.0-36.0); Mean Corpuscular Volume 95.5 fl (78.0-98.0); Mean Platelet Volume 10.5 fL (7.4-10.4); Platelet Count 71 10x3/uL (130-400); RBC Distribution Width 13.9 % (11.5-14.5); Red Blood Cell (RBC) Count 2.26 mill/uL (4.20-5.40); White Blood Cell (WBC) Count 6.7 10x3/uL (4.8-10.8)
[2022-08-10 04:19] LABS: ALT (SGPT) 25 U/L (8-55); AST (SGOT) 30 U/L (5-34); Albumin 3.2 g/dL (3.5-5.0); Alkaline Phosphatase 74 U/L (40-110); Anion Gap 11 mmol/L (10-20); BUN (Urea Nitrogen) 72 mg/dL (9.8-20.1); Bilirubin, Total 0.6 mg/dL (0.2-1.2); Calc. Creatinine Clearance 29 mL/min (70-130); Calcium 8.4 mg/dL (7.8-10.44); Carbon Dioxide 19 mmol/L (22-29); Chloride 109 mmol/L (98-107); Estimated GFR 22; Glucose 163 mg/dL (70-105); Potassium 4.8 mmol/L (3.5-5.1); Protein, Total 5.2 g/dL (6.0-8.3); Sodium 134 mmol/L (136-145)
[2022-08-10 05:04] LABS: Bacteria/HPF 1+ HPF (None Seen); Bilirubin Negative (Negative); Blood, Urine Negative (Negative); Clarity Clear (Clear); Glucose, Urine (Dipstick) Normal (Negative); Ketone, Urine Negative (Negative); Leukocyte 250 Leu/uL (Negative); Nitrite Negative (Negative); Protein, Urine (Dipstick) Negative (Neg-Trace); RBC/HPF 0-3 HPF (0-3); Specific Gravity, Urine 1.013 (1.002-1.036); Urobilinogen Normal mg/dL (Less than 2); WBC/HPF 0-3 HPF (0-3)
[2022-08-10] MEDS: Octreotide Acetate 1,250 MCG in Sodium Chloride 0.9% 250 ML 250 ML IVPB SCH (05:07)
[2022-08-10] MEDS ORDERED: cefTRIAXone\\ROCEPHIN 1 GM VIAL ONE (09:56)
[2022-08-10] MEDS: cefTRIAXone\\ROCEPHIN 1 GM in Sodium Chloride 0.9% 100 ML IVPB SCH (10:10)
[2022-08-10] MEDS: Pantoprazole 40 MG VIAL IVP SCH ×2 (15:53→21:47)
[2022-08-10] MEDS ORDERED: diphenhydrAMINE 50 MG/ML VIAL IVP PRN (17:31)
[2022-08-10] MEDS: Albumin 25% 25 GM/100 ML BOT IVPB SCH (17:47)
[2022-08-10 18:06] LABS: Hemoglobin 7.3 g/dL (12.0-16.0)
[2022-08-10] MEDS: traMADol HCl 50 MG TAB PO PRN (19:54)
[2022-08-11] MEDS: Albumin 25% 25 GM/100 ML BOT IVPB SCH ×3 (00:36→13:51)
[2022-08-11] MEDS ORDERED: FENTANYL 50 MCG/ML 1 ML VIAL SLOW IVP SCH (04:00)
[2022-08-11] MEDS: Pantoprazole 40 MG VIAL IVP SCH ×2 (08:05→20:00)
[2022-08-11] MEDS: Octreotide Acetate 1,250 MCG in Sodium Chloride 0.9% 250 ML 250 ML IVPB SCH (08:05)
[2022-08-11] MEDS ORDERED: Lidocaine 2% PF 5 ML VIAL ONE (08:34)
[2022-08-11] MEDS ORDERED: Sodium Bicarbonate 2.5 MEQ/5 ML VIAL ONE (08:34)
[2022-08-11 08:41] LABS: Hemoglobin 5.8 g/dL (12.0-16.0); Mean Corpuscular Hemoglobin 30.1 pg (27.0-31.0); Mean Corpuscular Volume 97.2 fl (78.0-98.0); Mean Platelet Volume 9.2 fL (7.4-10.4); Platelet Count 54 10x3/uL (130-400); RBC Distribution Width 13.9 % (11.5-14.5); Red Blood Cell (RBC) Count 1.92 mill/uL (4.20-5.40); White Blood Cell (WBC) Count 3.4 10x3/uL (4.8-10.8)
[2022-08-11 08:51] LABS: ALT (SGPT) 19 U/L (8-55); AST (SGOT) 29 U/L (5-34); Albumin 3.5 g/dL (3.5-5.0); Alkaline Phosphatase 57 U/L (40-110); Anion Gap 12 mmol/L (10-20); BUN (Urea Nitrogen) 64 mg/dL (9.8-20.1); Bilirubin, Total 0.9 mg/dL (0.2-1.2); Calc. Creatinine Clearance 35 mL/min (70-130); Calcium 7.9 mg/dL (7.8-10.44); Carbon Dioxide 17 mmol/L (22-29); Chloride 108 mmol/L (98-107); Estimated GFR 25; Globulin 1.7 g/dL (2.4-3.5); Glucose 102 mg/dL (70-105); Potassium 4.8 mmol/L (3.5-5.1); Protein, Total 5.2 g/dL (6.0-8.3); Sodium 132 mmol/L (136-145)
[2022-08-11 09:34] LABS: Band 1 % (5-11); Eosinophils 14 % (0-10); Hypochromia SLIGHT = 6-15 cells (100X) (0-5/hpf); Lymphocytes 10 % (21-51); MDiff Complete? YES; Monocytes 13 % (0-10); Neutrophil 62 % (42-75); Platelet Morphology Comment Appears Decreased; Polychromasia SLIGHT = 2-3 cells (100X) (0-2/hpf); Tear Drops SLIGHT = 2-5 cells (100X) (0-1/hpf)
[2022-08-11] MEDS: cefTRIAXone\\ROCEPHIN 1 GM in Sodium Chloride 0.9% 100 ML IVPB SCH (12:50)
[2022-08-11 13:31] LABS: RBC Count-Automated (BF) 32 /cu.mm; WBC/Nucleated-Auto (BF) 22 /cu.mm
[2022-08-11 13:52] LABS: BF Color Colorless; Body Fluid Source Ascites Body Fluid; Clarity Hazy (Clear); Tube # EDTA
[2022-08-11 13:58] LABS: BF Segmented Neutrophils 1 %; Cell Count Non Hematic 74 %; Lymphocytes 25 %
[2022-08-11] MEDS ORDERED: PROPOFOL 200 MG/20 ML VIAL ONE (17:22)
[2022-08-12] MEDS: HumaLOG 300 UNITS/3 ML VIAL SC PRN ×3 (05:42→17:17)
[2022-08-12 05:44] LABS: #Eosinphils 0.2 thou/uL (0.0-0.7); #Lymphocytes 0.2 thou/uL (1.20-3.40); #Monocytes 0.6 thou/uL (0.11-0.59); #Neutrophils 3.2 thou/uL (1.40-6.50); %Eosinophils 5.3 % (0.0-10.0); %Lymphocytes 5.2 % (21.0-51.0); %Monocytes 13.2 % (0.0-10.0); %Neutrophils 76.3 % (42.0-75.0); Hemoglobin 8.4 g/dL (12.0-16.0); Mean Corpuscular HGB CONC 31.7 g/dL (32.0-36.0); Mean Corpuscular Hemoglobin 29.9 pg (27.0-31.0); Mean Corpuscular Volume 94.1 fl (78.0-98.0); Mean Platelet Volume 10.8 fL (7.4-10.4); Platelet Count 44 10x3/uL (130-400); RBC Distribution Width 13.9 % (11.5-14.5); White Blood Cell (WBC) Count 4.2 10x3/uL (4.8-10.8)
[2022-08-12 06:02] LABS: ALT (SGPT) 19 U/L (8-55); AST (SGOT) 29 U/L (5-34); Albumin 3.6 g/dL (3.5-5.0); Alkaline Phosphatase 55 U/L (40-110); Anion Gap 12 mmol/L (10-20); BUN (Urea Nitrogen) 55 mg/dL (9.8-20.1); Bilirubin, Total 2.7 mg/dL (0.2-1.2); Calc. Creatinine Clearance 38 mL/min (70-130); Calcium 8.1 mg/dL (7.8-10.44); Carbon Dioxide 16 mmol/L (22-29); Chloride 108 mmol/L (98-107); Estimated GFR 27; Globulin 1.7 g/dL (2.4-3.5); Glucose 260 mg/dL (70-105); Potassium 4.4 mmol/L (3.5-5.1); Protein, Total 5.3 g/dL (6.0-8.3); Sodium 132 mmol/L (136-145)
[2022-08-12] MEDS: cefTRIAXone\\ROCEPHIN 1 GM in Sodium Chloride 0.9% 100 ML IVPB SCH (08:11)
[2022-08-12] MEDS: Pantoprazole 40 MG VIAL IVP SCH ×2 (08:12→20:37)
[2022-08-12] MEDS: traMADol HCl 50 MG TAB PO PRN (08:23)
[2022-08-12] MEDS: Octreotide Acetate 1,250 MCG in Sodium Chloride 0.9% 250 ML 250 ML IVPB SCH (09:15)
[2022-08-12] MEDS ORDERED: Non-Formulary Item 1 EACH (Insulin Aspart [Novolog] 100 UNIT/ML Vial) SC PRN (10:34)
[2022-08-12] MEDS ORDERED: Insulin Glargine 30 UNITS/0.3 ML VIAL SC SCH ×2 (11:00→12:15)
[2022-08-12] MEDS: Midodrine HCl 5 MG TAB PO SCH ×2 (15:05→20:37)
[2022-08-12 15:42] LABS: Hemoglobin 8.2 g/dL (12.0-16.0); Platelet Count 40 10x3/uL (130-400)
[2022-08-12] MEDS: Albumin 25% 25 GM/100 ML BOT IVPB SCH ×2 (17:18→23:50)
[2022-08-12] MEDS: Rifaximin 550 MG TAB PO SCH (20:37)
[2022-08-13] MEDS: Albumin 25% 25 GM/100 ML BOT IVPB SCH ×2 (05:33→12:30)
[2022-08-13 05:43] VITALS: BMI 28.5
[2022-08-13 05:45] LABS: Mean Corpuscular HGB CONC 31.9 g/dL (32.0-36.0); Mean Corpuscular Hemoglobin 30.6 pg (27.0-31.0); Platelet Count 39 10x3/uL (130-400); RBC Distribution Width 13.7 % (11.5-14.5); Red Blood Cell (RBC) Count 2.63 mill/uL (4.20-5.40); White Blood Cell (WBC) Count 3.8 10x3/uL (4.8-10.8)
[2022-08-13 06:07] LABS: ALT (SGPT) 15 U/L (8-55); AST (SGOT) 24 U/L (5-34); Albumin 3.6 g/dL (3.5-5.0); Alkaline Phosphatase 50 U/L (40-110); Anion Gap 12 mmol/L (10-20); BUN (Urea Nitrogen) 45 mg/dL (9.8-20.1); Band 1 % (5-11); Calc. Creatinine Clearance 41 mL/min (70-130); Carbon Dioxide 17 mmol/L (22-29); Chloride 109 mmol/L (98-107); Eosinophils 11 % (0-10); Estimated GFR 31; Globulin 1.6 g/dL (2.4-3.5); Glucose 224 mg/dL (70-105); Lymphocytes 7 % (21-51); MDiff Complete? YES; Monocytes 11 % (0-10); Neutrophil 66 % (42-75); Platelet Morphology Comment Appears Decreased; Protein, Total 5.2 g/dL (6.0-8.3); RBC Morphology Normal; Sodium 134 mmol/L (136-145)
[2022-08-13] MEDS: HumaLOG 300 UNITS/3 ML VIAL SC PRN ×2 (06:10→12:29)
[2022-08-13] MEDS ORDERED: Cyclobenzaprine 10 MG TAB PO PRN (07:11)
[2022-08-13] MEDS ORDERED: Ondansetron ODT 4 MG TAB PO PRN (07:11)
[2022-08-13] MEDS ORDERED: Melatonin 3 MG TAB PO PRN (07:29)
[2022-08-13] MEDS ORDERED: Albuterol Sulfate 2.5 mg/3 ml Neb NEB PRN (07:31)
[2022-08-13] MEDS: cefTRIAXone\\ROCEPHIN 1 GM in Sodium Chloride 0.9% 100 ML IVPB SCH (08:05)
[2022-08-13] MEDS: Pantoprazole 40 MG VIAL IVP SCH (08:05)
[2022-08-13] MEDS: Rifaximin 550 MG TAB PO SCH (08:06)
[2022-08-13] MEDS: Midodrine HCl 5 MG TAB PO SCH ×2 (08:06→15:15)
[2022-08-13] MEDS: Ferrous Sulfate 325 MG TAB PO SCH ×2 (08:07→15:15)
[2022-08-13] MEDS ORDERED: Folic Acid 1 MG TAB PO SCH (09:00)
[2022-08-13] MEDS ORDERED: Spironolactone 100 MG TAB PO SCH (09:00)
[2022-08-13] MEDS ORDERED: Cholecalciferol 1,000 UNITS (25 MCG) TAB PO SCH (09:00)
[2022-08-13] MEDS ORDERED: Cyanocobalamin (Vitamin B-12) 1,000 MCG TAB PO SCH (09:00)
[2022-08-13] MEDS ORDERED: busPIRone HCl 10 MG TAB PO SCH (09:00)
[2022-08-13] MEDS ORDERED: Furosemide 40 MG TAB PO SCH (09:00)
[2022-08-13] MEDS ORDERED: Magnesium Oxide 250 MG TAB PO SCH (09:00)
[2022-08-13] MEDS ORDERED: Bupropion 150 MG XL TAB PO SCH (09:00)
[2022-08-13] MEDS ORDERED: Insulin Glargine 30 UNITS/0.3 ML VIAL SC SCH ×2 (09:00)
[2022-08-13 12:42] LABS: Hemoglobin 8.2 g/dL (12.0-16.0); Platelet Count 41 10x3/uL (130-400)
[2022-08-13 15:15] VITALS: BP 116/79; TEMP 97.6
[2022-08-13] MEDS ORDERED: Loratadine 10 MG TAB PO SCH (21:00)
[2022-08-13] MEDS ORDERED: hydrOXYzine 25 MG TAB PO SCH (21:00)
== END 2022-08-13 15:36 | disposition home or self-care (01) | DRG 441 ==
LOC: ERS 23:39 → ERHOLD 08-10 01:32 → T4-A 08-10 12:43
PROVIDERS: ADMIT Student in an Organized Health Care Education/Training Program; ATTEND Family Medicine
PROC: 0W3P8ZZ Control Bleeding in Gastrointestinal Tract, Via Natural or Artificial Opening Endoscopic (ICD-10-PCS; principal; 2022-08-11)
PROC: 30233N1 Transfusion of Nonautologous Red Blood Cells into Peripheral Vein, Percutaneous Approach (ICD-10-PCS; 2022-08-11)
PROC: 0W9G3ZZ Drainage of Peritoneal Cavity, Percutaneous Approach (ICD-10-PCS; 2022-08-11)
DX: K76.6 Portal hypertension (principal); K31.811 Angiodysplasia of stomach and duodenum with bleeding; D62 Acute posthemorrhagic anemia; R18.8 Other ascites; N17.9 Acute kidney failure, unspecified; I85.10 Secondary esophageal varices without bleeding; Z20.822 Contact with and (suspected) exposure to COVID-19; K31.89 Other diseases of stomach and duodenum; N18.32 Chronic kidney disease, stage 3b; E11.22 Type 2 diabetes mellitus with diabetic chronic kidney disease; D63.1 Anemia in chronic kidney disease; F41.9 Anxiety disorder, unspecified; K72.10 Chronic hepatic failure without coma; K21.9 Gastro-esophageal reflux disease without esophagitis; D69.6 Thrombocytopenia, unspecified; F17.210 Nicotine dependence, cigarettes, uncomplicated; K74.60 Unspecified cirrhosis of liver; R30.0 Dysuria; Z88.5 Allergy status to narcotic agent; Z88.8 Allergy status to other drugs, medicaments and biological substances; Z79.899 Other long term (current) drug therapy; Z79.4 Long term (current) use of insulin; Z90.49 Acquired absence of other specified parts of digestive tract; Z83.3 Family history of diabetes mellitus; Z82.3 Family history of stroke; Z84.89 Family history of other specified conditions; Z82.49 Family history of ischemic heart disease and other diseases of the circulatory system; Z80.1 Family history of malignant neoplasm of trachea, bronchus and lung
CPT/HCPCS: 36415; 36416; 36430; 49083; 74176; 80053; 81003; 81015; 82140; 83690; 83735; 85025; 85060; 85610; 85730; 86850; 86900; 86901; 87070; 87086; 87205; 89051; 93005; 96374; 96375; C9113; J0696; J1200; J1642; J1815; J2001; J2354; J2405; J2704; J3010; J3490; J7050; P9016; P9047; U0003; U0005

== ENCOUNTER 2022-08-18 09:47 | Day surgery (SDC) | payer OTHER ==
[2022-08-17 12:47] VITALS: BMI 26.6
[2022-08-18] MEDS ORDERED: Sodium Bicarbonate 2.5 MEQ/5 ML VIAL ONE (10:05)
[2022-08-18] MEDS ORDERED: Lidocaine 1% PF 5 ML VIAL ONE (10:05)
[2022-08-18] MEDS ORDERED: Albumin 25% 200 ML ONE (10:05)
[2022-08-18 12:38] VITALS: BP 109/61; TEMP 98.1
[2022-08-18 14:05] LABS: BF Color Colorless; Body Fluid Source Ascites Body Fluid; Clarity Hazy (Clear); RBC Count-Automated (BF) 0 /cu.mm; Tube # EDTA; WBC/Nucleated-Auto (BF) 47 /cu.mm
[2022-08-18 14:45] LABS: BF Segmented Neutrophils 4 %; Cell Count Non Hematic 72 %; Eosinophils 1 %; Lymphocytes 23 %
== END 2022-08-18 11:55 | disposition home or self-care (01) ==
LOC: ULT 09:47
PROVIDERS: ATTEND Internal Medicine Gastroenterology
PROC: 0W9G3ZX Drainage of Peritoneal Cavity, Percutaneous Approach, Diagnostic (ICD-10-PCS; principal; 2022-08-18)
DX: K74.60 Unspecified cirrhosis of liver (principal); R18.8 Other ascites; K76.82 Hepatic encephalopathy; K65.2 Spontaneous bacterial peritonitis; Z79.2 Long term (current) use of antibiotics; Z79.4 Long term (current) use of insulin; Z79.899 Other long term (current) drug therapy; Z88.2 Allergy status to sulfonamides; Z88.5 Allergy status to narcotic agent; Z88.8 Allergy status to other drugs, medicaments and biological substances; Z91.018 Allergy to other foods; Z91.048 Other nonmedicinal substance allergy status
CPT/HCPCS: 49083; 82042; 84155; 85060; 87070; 87205; 89051; J1642; P9047

== ENCOUNTER 2022-08-25 09:55 | Day surgery (SDC) | payer OTHER ==
[2022-08-20 11:20] VITALS: BMI 26.6
[2022-08-25] MEDS ORDERED: Sodium Bicarbonate 2.5 MEQ/5 ML VIAL ONE (10:18)
[2022-08-25] MEDS ORDERED: Albumin 25% 200 ML ONE (10:18)
[2022-08-25] MEDS ORDERED: Lidocaine 1% PF 5 ML VIAL ONE (10:18)
[2022-08-25 12:39] VITALS: BP 110/51
[2022-08-25] MEDS ORDERED: Albumin 25% 25 GM/100 ML BOT IVPB SCH (12:45)
[2022-08-25 13:35] LABS: #Eosinphils 0.3 thou/uL (0.0-0.7); #Lymphocytes 0.4 thou/uL (1.20-3.40); #Monocytes 0.4 thou/uL (0.11-0.59); #Neutrophils 2.2 thou/uL (1.40-6.50); %Basophils 1.2 % (0.0-1.0); %Eosinophils 9.3 % (0.0-10.0); %Lymphocytes 12.6 % (21.0-51.0); %Monocytes 12.6 % (0.0-10.0); %Neutrophils 64.4 % (42.0-75.0); Hemoglobin 8.5 g/dL (12.0-16.0); Mean Corpuscular HGB CONC 31.2 g/dL (32.0-36.0); Mean Corpuscular Hemoglobin 29.8 pg (27.0-31.0); Mean Corpuscular Volume 95.8 fl (78.0-98.0); Mean Platelet Volume 11.3 fL (7.4-10.4); Platelet Count 58 10x3/uL (130-400); RBC Distribution Width 14.3 % (11.5-14.5); Red Blood Cell (RBC) Count 2.85 mill/uL (4.20-5.40); White Blood Cell (WBC) Count 3.4 10x3/uL (4.8-10.8)
[2022-08-25 13:47] LABS: ALT (SGPT) 19 U/L (8-55); AST (SGOT) 28 U/L (5-34); Albumin 3.4 g/dL (3.5-5.0); Alkaline Phosphatase 70 U/L (40-110); Anion Gap 14 mmol/L (10-20); BUN (Urea Nitrogen) 49 mg/dL (9.8-20.1); Bilirubin, Total 1.1 mg/dL (0.2-1.2); Calc. Creatinine Clearance 46 mL/min (70-130); Calcium 8.1 mg/dL (7.8-10.44); Carbon Dioxide 17 mmol/L (22-29); Chloride 111 mmol/L (98-107); Estimated GFR 36; Globulin 2.1 g/dL (2.4-3.5); Glucose 225 mg/dL (70-105); Magnesium 1.9 mg/dL (1.6-2.6); Potassium 3.7 mmol/L (3.5-5.1); Protein, Total 5.5 g/dL (6.0-8.3); Sodium 138 mmol/L (136-145)
[2022-08-25 13:57] LABS: INR-International Normal Ratio 1.4
[2022-08-25 13:58] LABS: PTT 71.2 sec (22.9-36.1)
[2022-08-25 14:12] LABS: RBC Count-Automated (BF) 12 /cu.mm; WBC/Nucleated-Auto (BF) 59 /cu.mm
[2022-08-25 14:38] LABS: BF Color Yellow; Body Fluid Source Ascites Body Fluid; Clarity Hazy (Clear); Tube # EDTA
[2022-08-25 14:42] LABS: Cell Count Non Hematic 73 %; Lymphocytes 27 %
== END 2022-08-25 12:15 | disposition home or self-care (01) ==
LOC: ULT 09:55
PROVIDERS: ATTEND Internal Medicine Gastroenterology
PROC: 0W9G3ZX Drainage of Peritoneal Cavity, Percutaneous Approach, Diagnostic (ICD-10-PCS; principal; 2022-08-25)
DX: K74.60 Unspecified cirrhosis of liver (principal); R18.8 Other ascites; K76.82 Hepatic encephalopathy; K65.2 Spontaneous bacterial peritonitis; Z88.2 Allergy status to sulfonamides; Z88.5 Allergy status to narcotic agent; Z88.8 Allergy status to other drugs, medicaments and biological substances; Z91.018 Allergy to other foods; Z91.048 Other nonmedicinal substance allergy status
CPT/HCPCS: 49083; 80053; 82042; 83735; 84155; 85025; 85060; 85610; 85730; 87070; 87205; 89051; J1642; P9047

== ENCOUNTER 2022-09-01 09:49 | Day surgery (SDC) | payer OTHER ==
[2022-09-01 07:55] VITALS: BMI 26.6
[2022-09-01] MEDS ORDERED: Lidocaine 1% PF 5 ML VIAL ONE (10:19)
[2022-09-01] MEDS ORDERED: Albumin 25% 200 ML ONE (10:19)
[2022-09-01] MEDS ORDERED: Sodium Bicarbonate 2.5 MEQ/5 ML VIAL ONE (10:19)
[2022-09-01 12:49] VITALS: BP 124/72; TEMP 98.4
[2022-09-01 23:18] LABS: RBC Count-Automated (BF) 35 /cu.mm; WBC/Nucleated-Auto (BF) 12 /cu.mm
[2022-09-01 23:21] LABS: Body Fluid Source Ascites Body Fluid; Tube # EDTA
[2022-09-01 23:22] LABS: BF Color Colorless; Clarity Hazy (Clear)
== END 2022-09-01 12:20 | disposition home or self-care (01) ==
LOC: ULT 09:49
PROVIDERS: ATTEND Internal Medicine Gastroenterology
PROC: 0W9G3ZX Drainage of Peritoneal Cavity, Percutaneous Approach, Diagnostic (ICD-10-PCS; principal; 2022-09-01)
DX: K74.60 Unspecified cirrhosis of liver (principal); R18.8 Other ascites; K76.82 Hepatic encephalopathy; K65.2 Spontaneous bacterial peritonitis; Z79.2 Long term (current) use of antibiotics; Z79.4 Long term (current) use of insulin; Z79.899 Other long term (current) drug therapy; Z88.2 Allergy status to sulfonamides; Z88.5 Allergy status to narcotic agent; Z88.6 Allergy status to analgesic agent; Z88.8 Allergy status to other drugs, medicaments and biological substances; Z91.018 Allergy to other foods; Z91.048 Other nonmedicinal substance allergy status
CPT/HCPCS: 49083; 82042; 84157; 85060; 87070; 87205; 89051; J1642; P9047

== ENCOUNTER 2022-09-08 09:52 | Day surgery (SDC) | payer OTHER ==
[2022-09-08] MEDS ORDERED: Sodium Bicarbonate 2.5 MEQ/5 ML VIAL ONE (10:14)
[2022-09-08] MEDS ORDERED: Lidocaine 1% PF 5 ML VIAL ONE (10:14)
[2022-09-08] MEDS ORDERED: Albumin 25% 200 ML ONE (10:14)
[2022-09-08 12:40] LABS: Mean Corpuscular HGB CONC 31.5 g/dL (32.0-36.0); Mean Corpuscular Hemoglobin 29.1 pg (27.0-31.0); Mean Corpuscular Volume 92.5 fl (78.0-98.0); Platelet Count 50 10x3/uL (130-400); RBC Distribution Width 13.5 % (11.5-14.5); Red Blood Cell (RBC) Count 3.07 mill/uL (4.20-5.40); White Blood Cell (WBC) Count 2.1 10x3/uL (4.8-10.8)
[2022-09-08 12:43] LABS: INR-International Normal Ratio 1.3; Prothrombin Time 17.1 sec (12.0-14.7)
[2022-09-08 12:50] LABS: ALT (SGPT) 18 U/L (8-55); AST (SGOT) 38 U/L (5-34); Albumin 3.3 g/dL (3.5-5.0); Alkaline Phosphatase 72 U/L (40-110); Anion Gap 10 mmol/L (10-20); BUN (Urea Nitrogen) 27 mg/dL (9.8-20.1); Bilirubin, Total 0.8 mg/dL (0.2-1.2); Calc. Creatinine Clearance 0 mL/min (70-130); Calcium 8.6 mg/dL (7.8-10.44); Carbon Dioxide 20 mmol/L (22-29); Chloride 113 mmol/L (98-107); Estimated GFR 35; Globulin 2.3 g/dL (2.4-3.5); Glucose 119 mg/dL (70-105); Magnesium 1.6 mg/dL (1.6-2.6); Potassium 3.7 mmol/L (3.5-5.1); Protein, Total 5.6 g/dL (6.0-8.3); Sodium 139 mmol/L (136-145)
[2022-09-08 13:03] LABS: PTT 129.2 sec (22.9-36.1)
[2022-09-08 13:28] LABS: RBC Count-Automated (BF) 95 /cu.mm; WBC/Nucleated-Auto (BF) 71 /cu.mm
[2022-09-08 13:41] LABS: BF Color Yellow; Body Fluid Source Ascites Body Fluid; Clarity Hazy (Clear); Tube # EDTA
[2022-09-08 13:46] LABS: Band 4 % (5-11); Eosinophils 6 % (0-10); Lymphocytes 21 % (21-51); MDiff Complete? YES; Monocytes 9 % (0-10); Neutrophil 58 % (42-75); Ovalocytes SLIGHT = 2-5 cells (100X) (0-1/hpf); Platelet Morphology Comment Appears Decreased; Polychromasia SLIGHT = 2-3 cells (100X) (0-2/hpf); Schistocytes SLIGHT = 2-5 cells (100X) (0-1/hpf); Tear Drops SLIGHT = 2-5 cells (100X) (0-1/hpf)
[2022-09-08 14:00] LABS: Cell Count Non Hematic 70 %; Lymphocytes 30 %
[2022-09-08 14:05] VITALS: BP 121/70; TEMP 98.8
== END 2022-09-08 12:02 | disposition home or self-care (01) ==
LOC: ULT 09:52
PROVIDERS: ATTEND Internal Medicine Gastroenterology
PROC: 0W9G3ZX Drainage of Peritoneal Cavity, Percutaneous Approach, Diagnostic (ICD-10-PCS; principal; 2022-09-08)
DX: K74.60 Unspecified cirrhosis of liver (principal); R18.8 Other ascites; K76.82 Hepatic encephalopathy; Z88.2 Allergy status to sulfonamides; Z88.5 Allergy status to narcotic agent; Z88.6 Allergy status to analgesic agent; Z88.8 Allergy status to other drugs, medicaments and biological substances; Z91.018 Allergy to other foods; Z91.048 Other nonmedicinal substance allergy status
CPT/HCPCS: 49083; 80053; 82042; 83735; 84157; 85025; 85060; 85610; 85730; 87070; 87205; 89051; J1642; P9047

== ENCOUNTER 2022-09-15 10:04 | Day surgery (SDC) | payer OTHER ==
[2022-09-14 14:04] VITALS: BMI 26.6
[2022-09-15] MEDS ORDERED: Albumin 25% 0 ML ONE (10:12)
[2022-09-15 15:05] LABS: RBC Count-Automated (BF) 12 /cu.mm; WBC/Nucleated-Auto (BF) 23 /cu.mm
[2022-09-15 15:12] LABS: BF Color Yellow; Body Fluid Source Ascites Body Fluid; Clarity Hazy (Clear); Tube # EDTA
[2022-09-15 15:23] LABS: BF Segmented Neutrophils 1 %; Cell Count Non Hematic 85 %; Lymphocytes 14 %
== END 2022-09-15 10:55 | disposition home or self-care (01) ==
LOC: ULT 10:04
PROVIDERS: ATTEND Internal Medicine Gastroenterology
PROC: 0W9G3ZX Drainage of Peritoneal Cavity, Percutaneous Approach, Diagnostic (ICD-10-PCS; principal; 2022-09-15)
DX: K74.60 Unspecified cirrhosis of liver (principal); R18.8 Other ascites; K76.82 Hepatic encephalopathy; K65.2 Spontaneous bacterial peritonitis; Z79.2 Long term (current) use of antibiotics; Z79.4 Long term (current) use of insulin; Z79.899 Other long term (current) drug therapy; Z88.2 Allergy status to sulfonamides; Z88.5 Allergy status to narcotic agent; Z88.6 Allergy status to analgesic agent; Z88.8 Allergy status to other drugs, medicaments and biological substances; Z91.018 Allergy to other foods; Z91.048 Other nonmedicinal substance allergy status
CPT/HCPCS: 49083; 84157; 85060; 87070; 87205; 89051; J1642; P9047

== ENCOUNTER → 2022-09-22 | Day surgery (SDC) | payer OTHER ==
[~2022-09-22] MED LIST changes: +Albumin 25% 200 ML ONE; -FLU VACC QS2022-23(6MOS UP)/PF 60 MCG/0.5 ML SYRINGE IM ONE; +Lidocaine 1% PF 5 ML VIAL ONE; +Sodium Bicarbonate 2.5 MEQ/5 ML VIAL ONE
[2022-09-22 12:00] LABS: ALT (SGPT) 24 U/L (8-55); AST (SGOT) 31 U/L (5-34); Albumin 3.2 g/dL (3.5-5.0); Alkaline Phosphatase 95 U/L (40-110); Anion Gap 14 mmol/L (10-20); BUN (Urea Nitrogen) 25 mg/dL (9.8-20.1); Bilirubin, Total 1.3 mg/dL (0.2-1.2); Calc. Creatinine Clearance 0 mL/min (70-130); Calcium 8.7 mg/dL (7.8-10.44); Carbon Dioxide 18 mmol/L (22-29); Chloride 112 mmol/L (98-107); Estimated GFR 31; Globulin 2.9 g/dL (2.4-3.5); Glucose 146 mg/dL (70-105); Magnesium 1.9 mg/dL (1.6-2.6); Potassium 3.6 mmol/L (3.5-5.1); Protein, Total 6.1 g/dL (6.0-8.3); Sodium 140 mmol/L (136-145)
[2022-09-22 12:03] LABS: INR-International Normal Ratio 1.3; Prothrombin Time 16.3 sec (12.0-14.7)
[2022-09-22 12:15] LABS: Band 2 % (5-11); Eosinophils 2 % (0-10); Hemoglobin 10.3 g/dL (12.0-16.0); Lymphocytes 13 % (21-51); MDiff Complete? YES; Mean Corpuscular Volume 90.5 fl (78.0-98.0); Mean Platelet Volume 6.7 fL (7.4-10.4); Monocytes 12 % (0-10); Neutrophil 70 % (42-75); Ovalocytes MODERATE= 6-15 cells (100X) (0-1/hpf); Platelet Count 53 10x3/uL (130-400); Platelet Morphology Comment Appears Decreased; RBC Distribution Width 13.3 % (11.5-14.5); Reactive Lymphocytes 1 % (0-10); Red Blood Cell (RBC) Count 3.54 mill/uL (4.20-5.40); Schistocytes SLIGHT = 2-5 cells (100X) (0-1/hpf); Tear Drops SLIGHT = 2-5 cells (100X) (0-1/hpf); White Blood Cell (WBC) Count 4.8 10x3/uL (4.8-10.8)
[2022-09-22 13:42] LABS: RBC Count-Automated (BF) 46 /cu.mm; WBC/Nucleated-Auto (BF) 35 /cu.mm
[2022-09-22 13:47] LABS: Body Fluid Source Ascites Body Fluid
[2022-09-22 13:48] LABS: BF Color Yellow; Clarity Hazy (Clear); Tube # EDTA
[2022-09-22 13:54] LABS: BF Segmented Neutrophils 1 %; Cell Count Non Hematic 62 %; Lymphocytes 37 %
== END | disposition home or self-care (01) ==
LOC: ULT 09:39
PROVIDERS: ATTEND Internal Medicine Gastroenterology
PROC: 0W9G3ZX Drainage of Peritoneal Cavity, Percutaneous Approach, Diagnostic (ICD-10-PCS; principal; 2022-09-22)
DX: K74.60 Unspecified cirrhosis of liver (principal); R18.8 Other ascites; K76.82 Hepatic encephalopathy; Z88.2 Allergy status to sulfonamides; Z88.5 Allergy status to narcotic agent; Z88.6 Allergy status to analgesic agent; Z91.018 Allergy to other foods; Z91.048 Other nonmedicinal substance allergy status
CPT/HCPCS: 36416; 49083; 80053; 83735; 85025; 85060; 85610; 87070; 87205; 89051; J1642; P9047

== ENCOUNTER 2022-09-29 09:51 | Day surgery (SDC) | payer OTHER ==
[2022-09-25 15:51] VITALS: BMI 26.6
[2022-09-29] MEDS ORDERED: Albumin 25% 200 ML ONE (10:06)
[2022-09-29] MEDS ORDERED: Sodium Bicarbonate 2.5 MEQ/5 ML VIAL ONE (10:06)
[2022-09-29] MEDS ORDERED: Lidocaine 1% PF 5 ML VIAL ONE (10:06)
[2022-09-29 13:03] VITALS: BP 161/74; TEMP 98.4
[2022-09-29 13:08] LABS: RBC Count-Automated (BF) 23 /cu.mm; WBC/Nucleated-Auto (BF) 81 /cu.mm
[2022-09-29 13:51] LABS: BF Color Colorless; Body Fluid Source Ascites Body Fluid; Clarity Hazy (Clear); Tube # EDTA
[2022-09-29 13:54] LABS: Cell Count Non Hematic 78 %; Lymphocytes 22 %
== END 2022-09-29 12:50 | disposition home or self-care (01) ==
LOC: ULT 09:51
PROVIDERS: ATTEND Internal Medicine Gastroenterology
PROC: 0W9G3ZX Drainage of Peritoneal Cavity, Percutaneous Approach, Diagnostic (ICD-10-PCS; principal; 2022-09-29)
DX: K74.60 Unspecified cirrhosis of liver (principal); R18.8 Other ascites; Z88.2 Allergy status to sulfonamides; Z88.5 Allergy status to narcotic agent; Z88.6 Allergy status to analgesic agent; Z88.8 Allergy status to other drugs, medicaments and biological substances; Z91.018 Allergy to other foods; Z91.048 Other nonmedicinal substance allergy status
CPT/HCPCS: 49083; 82042; 84157; 85060; 87070; 87205; 89051; J1642; P9047

== ENCOUNTER 2022-10-06 09:59 | Day surgery (SDC) | payer OTHER ==
[2022-10-02 14:04] VITALS: BMI 26.6
[2022-10-06] MEDS ORDERED: Albumin 25% 0 ML ONE (10:08)
[2022-10-06] MEDS ORDERED: Lidocaine 1% PF 5 ML VIAL ONE (10:08)
[2022-10-06] MEDS ORDERED: Sodium Bicarbonate 2.5 MEQ/5 ML VIAL ONE (10:08)
== END 2022-10-06 10:20 | disposition home or self-care (01) ==
LOC: ULT 09:59
PROVIDERS: ATTEND Internal Medicine Gastroenterology
DX: R18.8 Other ascites (principal); Z53.8 Procedure and treatment not carried out for other reasons; Z88.2 Allergy status to sulfonamides; Z88.5 Allergy status to narcotic agent; Z88.6 Allergy status to analgesic agent; Z91.018 Allergy to other foods; Z91.048 Other nonmedicinal substance allergy status
CPT/HCPCS: 49083; 76705; J1642; P9047

== ENCOUNTER → 2022-10-13 | Day surgery (SDC) | payer OTHER ==
[2022-10-09 14:12] VITALS: BMI 26.6
[2022-10-13 13:35] LABS: Magnesium 1.6 mg/dL (1.6-2.6); Protein, Total Less than 1.0 g/dL (6.0-8.3)
[2022-10-13 13:36] LABS: RBC Count-Automated (BF) 0 /cu.mm; WBC/Nucleated-Auto (BF) 45 /cu.mm
[2022-10-13 14:07] LABS: BF Color Colorless; Body Fluid Source Ascites Body Fluid; Clarity Hazy (Clear); Tube # EDTA
[2022-10-13 14:09] LABS: Cell Count Non Hematic 74 %; Lymphocytes 26 %
== END | disposition home or self-care (01) ==
LOC: ULT 10:00
PROVIDERS: ATTEND Internal Medicine Gastroenterology
PROC: 0W9G3ZX Drainage of Peritoneal Cavity, Percutaneous Approach, Diagnostic (ICD-10-PCS; principal; 2022-10-13)
DX: K74.60 Unspecified cirrhosis of liver (principal); R18.8 Other ascites; K76.82 Hepatic encephalopathy; Z88.2 Allergy status to sulfonamides; Z88.5 Allergy status to narcotic agent; Z88.6 Allergy status to analgesic agent; Z88.8 Allergy status to other drugs, medicaments and biological substances; Z91.018 Allergy to other foods; Z91.048 Other nonmedicinal substance allergy status
CPT/HCPCS: 49083; 82042; 83735; 84155; 85060; 87070; 87205; 89051; J1642; P9047

== ENCOUNTER 2022-10-20 09:39 | Day surgery (SDC) | payer OTHER ==
[2022-10-16 09:05] VITALS: BMI 27.3
[~2022-10-20 09:39] MED LIST changes: -Albumin 25% 200 ML ONE; +FLU VACC QS2022-23(6MOS UP)/PF 60 MCG/0.5 ML SYRINGE IM ONE; -Lidocaine 1% PF 5 ML VIAL ONE; -Sodium Bicarbonate 2.5 MEQ/5 ML VIAL ONE
[2022-10-20] MEDS ORDERED: Sodium Bicarbonate 2.5 MEQ/5 ML VIAL ONE (10:04)
[2022-10-20] MEDS ORDERED: Albumin 25% 200 ML ONE (10:04)
[2022-10-20] MEDS ORDERED: Lidocaine 1% PF 5 ML VIAL ONE (10:04)
[2022-10-20 12:19] LABS: #Eosinphils 0.5 thou/uL (0.0-0.7); #Lymphocytes 0.7 thou/uL (1.20-3.40); #Monocytes 0.6 thou/uL (0.11-0.59); #Neutrophils 2.5 thou/uL (1.40-6.50); %Basophils 1.1 % (0.0-1.0); %Eosinophils 11.5 % (0.0-10.0); %Lymphocytes 15.6 % (21.0-51.0); %Monocytes 13.3 % (0.0-10.0); %Neutrophils 58.4 % (42.0-75.0); Hemoglobin 9.6 g/dL (12.0-16.0); Mean Corpuscular HGB CONC 33.6 g/dL (32.0-36.0); Mean Corpuscular Hemoglobin 30.2 pg (27.0-31.0); Mean Corpuscular Volume 89.9 fl (78.0-98.0); Mean Platelet Volume 7.3 fL (7.4-10.4); Platelet Count 60 10x3/uL (130-400); RBC Distribution Width 14.8 % (11.5-14.5); Red Blood Cell (RBC) Count 3.17 mill/uL (4.20-5.40); White Blood Cell (WBC) Count 4.3 10x3/uL (4.8-10.8)
[2022-10-20 12:29] LABS: ALT (SGPT) 20 U/L (8-55); AST (SGOT) 29 U/L (5-34); Albumin 3.1 g/dL (3.5-5.0); Alkaline Phosphatase 75 U/L (40-110); Anion Gap 11 mmol/L (10-20); BUN (Urea Nitrogen) 31 mg/dL (9.8-20.1); Bilirubin, Total 1.7 mg/dL (0.2-1.2); Calc. Creatinine Clearance 50 mL/min (70-130); Calcium 8.3 mg/dL (7.8-10.44); Carbon Dioxide 18 mmol/L (22-29); Chloride 115 mmol/L (98-107); Estimated GFR 38; Globulin 2.6 g/dL (2.4-3.5); Glucose 179 mg/dL (70-105); Magnesium 2.1 mg/dL (1.6-2.6); Potassium 3.5 mmol/L (3.5-5.1); Protein, Total 5.7 g/dL (6.0-8.3); Sodium 140 mmol/L (136-145)
[2022-10-20 12:39] LABS: INR-International Normal Ratio 1.3; Prothrombin Time 16.8 sec (12.0-14.7)
[2022-10-20 12:40] LABS: PTT 53.9 sec (22.9-36.1)
[2022-10-20 13:25] VITALS: BP 136/55
[2022-10-20 13:52] LABS: RBC Count-Automated (BF) 34 /cu.mm; WBC/Nucleated-Auto (BF) 79 /cu.mm
[2022-10-20 13:56] LABS: BF Color Yellow; Body Fluid Source Ascites Body Fluid; Clarity Hazy (Clear); Tube # EDTA
[2022-10-20 14:34] LABS: Cell Count Non Hematic 67 %; Lymphocytes 33 %
== END 2022-10-20 11:45 | disposition home or self-care (01) ==
LOC: ULT 09:39
PROVIDERS: ATTEND Internal Medicine Gastroenterology
PROC: 0W9G3ZX Drainage of Peritoneal Cavity, Percutaneous Approach, Diagnostic (ICD-10-PCS; principal; 2022-10-20)
DX: R18.8 Other ascites (principal); Z88.2 Allergy status to sulfonamides; Z88.5 Allergy status to narcotic agent; Z88.6 Allergy status to analgesic agent; Z88.8 Allergy status to other drugs, medicaments and biological substances; Z91.018 Allergy to other foods; Z91.048 Other nonmedicinal substance allergy status
CPT/HCPCS: 49083; 82042; 83735; 84155; 85025; 85060; 85610; 85730; 87070; 87205; 89051; J1642; P9047

== ENCOUNTER 2022-10-27 09:48 | Day surgery (SDC) | payer OTHER ==
[2022-10-27] MEDS ORDERED: Albumin 25% 200 ML ONE (11:12)
[2022-10-27] MEDS ORDERED: Lidocaine 1% PF 5 ML VIAL ONE (11:13)
[2022-10-27] MEDS ORDERED: Sodium Bicarbonate 2.5 MEQ/5 ML VIAL ONE (11:13)
[2022-10-27 12:58] VITALS: BP 134/57
[2022-10-27 13:18] LABS: RBC Count-Automated (BF) 11 /cu.mm; WBC/Nucleated-Auto (BF) 23 /cu.mm
[2022-10-27 14:58] LABS: BF Color Colorless; Body Fluid Source Ascites Body Fluid; Clarity Hazy (Clear); Tube # EDTA
[2022-10-27 15:00] LABS: Cell Count Non Hematic 75 %; Lymphocytes 25 %
== END 2022-10-27 12:45 | disposition home or self-care (01) ==
LOC: ULT 09:48
PROVIDERS: ATTEND Internal Medicine Gastroenterology
PROC: 0W9G3ZZ Drainage of Peritoneal Cavity, Percutaneous Approach (ICD-10-PCS; principal; 2022-10-27)
DX: K74.60 Unspecified cirrhosis of liver (principal); R18.8 Other ascites; Z88.2 Allergy status to sulfonamides; Z88.5 Allergy status to narcotic agent; Z88.6 Allergy status to analgesic agent; Z88.8 Allergy status to other drugs, medicaments and biological substances; Z91.018 Allergy to other foods; Z91.048 Other nonmedicinal substance allergy status
CPT/HCPCS: 49083; 82042; 84155; 85060; 87070; 87205; 89051; J1642; P9047

== ENCOUNTER 2022-11-03 09:59 | Day surgery (SDC) | payer OTHER ==
[2022-11-02 10:19] VITALS: BMI 26.6
[2022-11-03] MEDS ORDERED: Albumin 25% 200 ML ONE (10:08)
[2022-11-03] MEDS ORDERED: Lidocaine 1% PF 5 ML VIAL ONE (10:08)
[2022-11-03] MEDS ORDERED: Sodium Bicarbonate 2.5 MEQ/5 ML VIAL ONE (10:08)
[2022-11-03 10:54] VITALS: BP 138/70
== END 2022-11-03 10:50 | disposition home or self-care (01) ==
LOC: ULT 09:59
PROVIDERS: ATTEND Internal Medicine Gastroenterology
DX: R18.8 Other ascites (principal); Z88.2 Allergy status to sulfonamides; Z88.5 Allergy status to narcotic agent; Z88.6 Allergy status to analgesic agent; Z88.8 Allergy status to other drugs, medicaments and biological substances; Z91.048 Other nonmedicinal substance allergy status; Z91.018 Allergy to other foods
CPT/HCPCS: 76705; J1642; P9047

== ENCOUNTER → 2022-11-10 | Day surgery (SDC) | payer OTHER ==
[~2022-11-10] MED LIST changes: +Albumin 25% 200 ML ONE; +Lidocaine 1% PF 5 ML VIAL ONE; +Sodium Bicarbonate 2.5 MEQ/5 ML VIAL ONE
[2022-11-10 12:34] VITALS: BMI 26.6
[2022-11-10 13:14] LABS: #Eosinphils 0.3 thou/uL (0.0-0.7); #Lymphocytes 0.5 thou/uL (1.20-3.40); #Monocytes 0.6 thou/uL (0.11-0.59); #Neutrophils 3.2 thou/uL (1.40-6.50); %Eosinophils 5.7 % (0.0-10.0); %Lymphocytes 10.6 % (21.0-51.0); %Monocytes 13.1 % (0.0-10.0); %Neutrophils 69.5 % (42.0-75.0); Hemoglobin 8.8 g/dL (12.0-16.0); Mean Corpuscular Hemoglobin 29.9 pg (27.0-31.0); Mean Corpuscular Volume 90.5 fl (78.0-98.0); Mean Platelet Volume 7.7 fL (7.4-10.4); Platelet Count 53 10x3/uL (130-400); RBC Distribution Width 14.6 % (11.5-14.5); Red Blood Cell (RBC) Count 2.96 mill/uL (4.20-5.40); White Blood Cell (WBC) Count 4.7 10x3/uL (4.8-10.8)
[2022-11-10 13:18] LABS: INR-International Normal Ratio 1.3; Prothrombin Time 17.1 sec (12.0-14.7)
[2022-11-10 14:39] LABS: RBC Count-Automated (BF) 37 /cu.mm; WBC/Nucleated-Auto (BF) 12 /cu.mm
[2022-11-10 14:43] LABS: BF Color Colorless; Body Fluid Source Ascites Body Fluid; Clarity Hazy (Clear); Tube # EDTA
[2022-11-10 14:49] LABS: BF Segmented Neutrophils 3 %; Cell Count Non Hematic 75 %; Lymphocytes 22 %
== END | disposition home or self-care (01) ==
LOC: ULT 10:17
PROVIDERS: ATTEND Internal Medicine Gastroenterology
PROC: 0W9G3ZX Drainage of Peritoneal Cavity, Percutaneous Approach, Diagnostic (ICD-10-PCS; principal; 2022-11-10)
DX: K74.60 Unspecified cirrhosis of liver (principal); R18.8 Other ascites; K76.82 Hepatic encephalopathy; Z88.2 Allergy status to sulfonamides; Z88.5 Allergy status to narcotic agent; Z88.6 Allergy status to analgesic agent; Z88.8 Allergy status to other drugs, medicaments and biological substances; Z91.018 Allergy to other foods; Z91.048 Other nonmedicinal substance allergy status
CPT/HCPCS: 49083; 82042; 83735; 84157; 85025; 85060; 85610; 87070; 87205; 89051; J1642; P9047

== ENCOUNTER 2022-11-24 10:00 | Day surgery (SDC) | payer OTHER ==
[2022-11-23 08:23] VITALS: BMI 24.2
[2022-11-24] MEDS ORDERED: Sodium Bicarbonate 2.5 MEQ/5 ML VIAL ONE (11:07)
[2022-11-24] MEDS ORDERED: Lidocaine 1% PF 5 ML VIAL ONE (11:07)
[2022-11-24] MEDS ORDERED: Albumin 25% 200 ML ONE (11:07)
[2022-11-24 13:08] LABS: #Eosinphils 0.5 thou/uL (0.0-0.7); #Lymphocytes 0.6 thou/uL (1.20-3.40); #Monocytes 0.8 thou/uL (0.11-0.59); #Neutrophils 3.5 thou/uL (1.40-6.50); %Basophils 0.7 % (0.0-1.0); %Eosinophils 9.3 % (0.0-10.0); %Lymphocytes 10.4 % (21.0-51.0); %Monocytes 14.3 % (0.0-10.0); %Neutrophils 65.3 % (42.0-75.0); Mean Corpuscular HGB CONC 31.6 g/dL (32.0-36.0); Mean Corpuscular Hemoglobin 28.8 pg (27.0-31.0); Mean Corpuscular Volume 90.9 fl (78.0-98.0); Mean Platelet Volume 11.6 fL (7.4-10.4); Platelet Count 68 10x3/uL (130-400); RBC Distribution Width 14.4 % (11.5-14.5); Red Blood Cell (RBC) Count 3.48 mill/uL (4.20-5.40); White Blood Cell (WBC) Count 5.3 10x3/uL (4.8-10.8)
[2022-11-24 13:16] LABS: ALT (SGPT) 33 U/L (8-55); AST (SGOT) 37 U/L (5-34); Albumin 3.4 g/dL (3.5-5.0); Alkaline Phosphatase 74 U/L (40-110); Anion Gap 12 mmol/L (10-20); BUN (Urea Nitrogen) 41 mg/dL (9.8-20.1); Bilirubin, Total 1.1 mg/dL (0.2-1.2); Calc. Creatinine Clearance 34 mL/min (70-130); Calcium 8.3 mg/dL (7.8-10.44); Carbon Dioxide 18 mmol/L (22-29); Chloride 113 mmol/L (98-107); Estimated GFR 28; Globulin 2.5 g/dL (2.4-3.5); Glucose 194 mg/dL (70-105); Magnesium 1.8 mg/dL (1.6-2.6); Potassium 3.7 mmol/L (3.5-5.1); Protein, Total 5.9 g/dL (6.0-8.3); Sodium 139 mmol/L (136-145)
[2022-11-24 13:45] LABS: INR-International Normal Ratio 1.3; Prothrombin Time 16.4 sec (12.0-14.7)
[2022-11-24 15:41] LABS: RBC Count-Automated (BF) 0 /cu.mm; WBC/Nucleated-Auto (BF) 37 /cu.mm
[2022-11-24 15:45] LABS: BF Color Colorless; Body Fluid Source Ascites Body Fluid; Clarity Clear (Clear); Tube # 1
[2022-11-24 16:22] LABS: Cell Count Non Hematic 56 %; Lymphocytes 44 %
== END 2022-11-24 12:25 | disposition home or self-care (01) ==
LOC: ULT 10:00
PROVIDERS: ATTEND Internal Medicine Gastroenterology
PROC: 0W9G3ZX Drainage of Peritoneal Cavity, Percutaneous Approach, Diagnostic (ICD-10-PCS; principal; 2022-11-24)
DX: K74.60 Unspecified cirrhosis of liver (principal); R18.8 Other ascites; K76.82 Hepatic encephalopathy; Z79.2 Long term (current) use of antibiotics; Z79.4 Long term (current) use of insulin; Z79.899 Other long term (current) drug therapy; Z88.2 Allergy status to sulfonamides; Z88.5 Allergy status to narcotic agent; Z88.6 Allergy status to analgesic agent; Z88.8 Allergy status to other drugs, medicaments and biological substances; Z91.018 Allergy to other foods; Z91.048 Other nonmedicinal substance allergy status
CPT/HCPCS: 49083; 80053; 82042; 83735; 84155; 85025; 85060; 85610; 87070; 87205; 89051; P9047

== ENCOUNTER 2022-11-25 16:49 | Emergency (ER) | payer OTHER ==
[2022-11-25] MEDS ORDERED: Ondansetron PF 4 MG/2 ML Vial ONE (19:12)
[2022-11-25 19:46] LABS: #Lymphocytes 0.4 thou/uL (1.20-3.40); #Monocytes 0.9 thou/uL (0.11-0.59); #Neutrophils 7.2 thou/uL (1.40-6.50); %Basophils 0.3 % (0.0-1.0); %Eosinophils 0.5 % (0.0-10.0); %Lymphocytes 5.1 % (21.0-51.0); %Monocytes 10.6 % (0.0-10.0); %Neutrophils 83.5 % (42.0-75.0); Hemoglobin 9.3 g/dL (12.0-16.0); Mean Corpuscular HGB CONC 33.9 g/dL (32.0-36.0); Mean Corpuscular Hemoglobin 30.4 pg (27.0-31.0); Mean Corpuscular Volume 89.5 fl (78.0-98.0); Mean Platelet Volume 6.4 fL (7.4-10.4); Platelet Count 43 10x3/uL (130-400); RBC Distribution Width 13.8 % (11.5-14.5); Red Blood Cell (RBC) Count 3.06 mill/uL (4.20-5.40); White Blood Cell (WBC) Count 8.6 10x3/uL (4.8-10.8)
[2022-11-25 20:16] LABS: ALT (SGPT) 27 U/L (8-55); AST (SGOT) 31 U/L (5-34); Albumin 3.2 g/dL (3.5-5.0); Alkaline Phosphatase 62 U/L (40-110); Anion Gap 13 mmol/L (10-20); BUN (Urea Nitrogen) 37 mg/dL (9.8-20.1); Bilirubin, Total 2.5 mg/dL (0.2-1.2); Calc. Creatinine Clearance 0 mL/min (70-130); Calcium 8.3 mg/dL (7.8-10.44); Carbon Dioxide 17 mmol/L (22-29); Chloride 108 mmol/L (98-107); Estimated GFR 30; Globulin 2.3 g/dL (2.4-3.5); Glucose 110 mg/dL (70-105); Potassium 3.8 mmol/L (3.5-5.1); Protein, Total 5.5 g/dL (6.0-8.3); Sodium 134 mmol/L (136-145)
[2022-11-25 22:20] LABS: Bilirubin Negative (Negative); Blood, Urine 1+ (Negative); Clarity Clear (Clear); Glucose, Urine (Dipstick) Normal (Negative); Ketone, Urine Negative (Negative); Leukocyte Negative Leu/uL (Negative); Nitrite Negative (Negative); Protein, Urine (Dipstick) 10 mg/dL (Neg-Trace); Specific Gravity, Urine 1.013 (1.002-1.036); Urobilinogen Normal mg/dL (Less than 2); WBC/HPF 0-3 HPF (0-3); pH, Urine 5.5 (5.0-9.0)
[2022-11-25 22:21] LABS: Bacteria/HPF 1+ HPF (None Seen)
== END 2022-11-25 23:25 | disposition home or self-care (01) ==
LOC: ERS 16:49
DX: R35.0 Frequency of micturition (principal); E11.9 Type 2 diabetes mellitus without complications; K21.9 Gastro-esophageal reflux disease without esophagitis; Z87.891 Personal history of nicotine dependence
CPT/HCPCS: 36415; 80053; 81003; 81015; 85025; 86850; 86900; 86901; 87086; 96374; J2405

== ENCOUNTER 2022-12-01 09:49 | Day surgery (SDC) | payer OTHER ==
[2022-12-01] MEDS ORDERED: Albumin 25% 200 ML ONE (10:26)
[2022-12-01] MEDS ORDERED: Lidocaine 1% PF 5 ML VIAL ONE (10:26)
[2022-12-01] MEDS ORDERED: Sodium Bicarbonate 2.5 MEQ/5 ML VIAL ONE (10:26)
[2022-12-01 11:44] VITALS: BP 134/64; TEMP 98.7; BMI 24.8
[2022-12-01 13:47] LABS: RBC Count-Automated (BF) 22 /cu.mm; WBC/Nucleated-Auto (BF) 22 /cu.mm
[2022-12-01 14:53] LABS: BF Color Colorless; Body Fluid Source Ascites Body Fluid; Clarity Cloudy/Turbid (Clear); Tube # EDTA
[2022-12-01 15:02] LABS: BF Segmented Neutrophils 1 %; Cell Count Non Hematic 67 %; Eosinophils 2 %; Lymphocytes 30 %
== END 2022-12-01 12:50 | disposition home or self-care (01) ==
LOC: ULT 09:49
PROVIDERS: ATTEND Internal Medicine Gastroenterology
PROC: 0W9G3ZZ Drainage of Peritoneal Cavity, Percutaneous Approach (ICD-10-PCS; principal; 2022-12-01)
DX: K74.60 Unspecified cirrhosis of liver (principal); R18.8 Other ascites; K31.819 Angiodysplasia of stomach and duodenum without bleeding; K72.90 Hepatic failure, unspecified without coma; K76.82 Hepatic encephalopathy; K65.2 Spontaneous bacterial peritonitis; Z88.0 Allergy status to penicillin; Z88.2 Allergy status to sulfonamides; Z88.5 Allergy status to narcotic agent; Z88.8 Allergy status to other drugs, medicaments and biological substances; Z91.048 Other nonmedicinal substance allergy status; Z91.018 Allergy to other foods; Z91.09 Other allergy status, other than to drugs and biological substances; Z79.890 Hormone replacement therapy; Z79.4 Long term (current) use of insulin; Z79.2 Long term (current) use of antibiotics; Z79.899 Other long term (current) drug therapy
CPT/HCPCS: 49083; 82042; 84157; 85060; 87070; 87205; 89051; J1642; P9047

== ENCOUNTER 2022-12-08 09:43 | Day surgery (SDC) | payer OTHER ==
[2022-12-07 09:01] VITALS: BMI 24.2
[2022-12-08] MEDS ORDERED: Lidocaine 1% PF 5 ML VIAL ONE (10:01)
[2022-12-08] MEDS ORDERED: Albumin 25% 200 ML ONE (10:01)
[2022-12-08] MEDS ORDERED: Sodium Bicarbonate 2.5 MEQ/5 ML VIAL ONE (10:01)
[2022-12-08 12:39] VITALS: BP 138/68; TEMP 98.4
[2022-12-08 13:11] LABS: #Basophils 0.1 thou/uL (0.0-0.2); #Eosinphils 0.3 thou/uL (0.0-0.7); #Lymphocytes 0.4 thou/uL (1.20-3.40); #Monocytes 0.5 thou/uL (0.11-0.59); #Neutrophils 2.6 thou/uL (1.40-6.50); %Basophils 1.6 % (0.0-1.0); %Eosinophils 8.4 % (0.0-10.0); %Lymphocytes 11.1 % (21.0-51.0); %Monocytes 13.2 % (0.0-10.0); %Neutrophils 65.7 % (42.0-75.0); Hemoglobin 9.4 g/dL (12.0-16.0); Mean Corpuscular HGB CONC 32.1 g/dL (32.0-36.0); Mean Corpuscular Hemoglobin 28.9 pg (27.0-31.0); Mean Corpuscular Volume 90.1 fl (78.0-98.0); Mean Platelet Volume 10.7 fL (7.4-10.4); Platelet Count 84 10x3/uL (130-400); RBC Distribution Width 14.1 % (11.5-14.5); Red Blood Cell (RBC) Count 3.23 mill/uL (4.20-5.40)
[2022-12-08 13:21] LABS: ALT (SGPT) 19 U/L (8-55); AST (SGOT) 25 U/L (5-34); Albumin 3.1 g/dL (3.5-5.0); Alkaline Phosphatase 70 U/L (40-110); Anion Gap 15 mmol/L (10-20); BUN (Urea Nitrogen) 38 mg/dL (9.8-20.1); Calc. Creatinine Clearance 33 mL/min (70-130); Calcium 8.6 mg/dL (7.8-10.44); Carbon Dioxide 16 mmol/L (22-29); Chloride 115 mmol/L (98-107); Estimated GFR 28; Globulin 2.3 g/dL (2.4-3.5); Glucose 224 mg/dL (70-105); Potassium 3.8 mmol/L (3.5-5.1); Protein, Total 5.4 g/dL (6.0-8.3); Sodium 142 mmol/L (136-145)
[2022-12-08 13:23] LABS: INR-International Normal Ratio 1.4; Prothrombin Time 17.5 sec (12.0-14.7)
[2022-12-08 13:35] LABS: RBC Count-Automated (BF) 22 /cu.mm; WBC/Nucleated-Auto (BF) 11 /cu.mm
[2022-12-08 14:03] LABS: BF Color Colorless; Body Fluid Source Ascites Body Fluid; Clarity Hazy (Clear); Tube # EDTA
[2022-12-08 14:06] LABS: BF Segmented Neutrophils 4 %; Cell Count Non Hematic 79 %; Lymphocytes 17 %
== END 2022-12-08 12:38 | disposition home or self-care (01) ==
LOC: ULT 09:43
PROVIDERS: ATTEND Internal Medicine Gastroenterology
PROC: 0W9G3ZX Drainage of Peritoneal Cavity, Percutaneous Approach, Diagnostic (ICD-10-PCS; principal; 2022-12-08)
DX: R18.8 Other ascites (principal); Z88.2 Allergy status to sulfonamides; Z88.5 Allergy status to narcotic agent; Z88.8 Allergy status to other drugs, medicaments and biological substances; Z91.018 Allergy to other foods; Z91.048 Other nonmedicinal substance allergy status
CPT/HCPCS: 49083; 80053; 82042; 83735; 85025; 85060; 85610; 87070; 87205; 89051; J1642; P9047

== ENCOUNTER → 2022-12-15 | Day surgery (SDC) | payer OTHER ==
[~2022-12-15] MED LIST changes: -FLU VACC QS2022-23(6MOS UP)/PF 60 MCG/0.5 ML SYRINGE IM ONE
[2022-12-15 13:38] VITALS: BMI 27.4
[2022-12-15 13:43] LABS: RBC Count-Automated (BF) 45 /cu.mm; WBC/Nucleated-Auto (BF) 22 /cu.mm
[2022-12-15 14:51] LABS: BF Color Colorless; Body Fluid Source Ascites Body Fluid; Clarity Hazy (Clear); Tube # EDTA
[2022-12-15 14:55] LABS: Cell Count Non Hematic 66 %; Lymphocytes 34 %
== END | disposition home or self-care (01) ==
LOC: ULT 10:20
PROVIDERS: ATTEND Internal Medicine Gastroenterology
PROC: 0W9G3ZX Drainage of Peritoneal Cavity, Percutaneous Approach, Diagnostic (ICD-10-PCS; principal; 2022-12-15)
DX: R18.8 Other ascites (principal); Z88.2 Allergy status to sulfonamides; Z88.5 Allergy status to narcotic agent; Z88.6 Allergy status to analgesic agent; Z88.8 Allergy status to other drugs, medicaments and biological substances; Z91.018 Allergy to other foods; Z91.048 Other nonmedicinal substance allergy status
CPT/HCPCS: 49083; 82042; 84157; 85060; 87070; 87205; 89051; J1642; P9047

== ENCOUNTER 2022-12-17 11:34 | Emergency (ER) | payer OTHER | END 2022-12-17 14:11 | disposition home or self-care (01) | LOC: ERS 11:34 | DX: M79.621 Pain in right upper arm (principal); E11.9 Type 2 diabetes mellitus without complications; K21.9 Gastro-esophageal reflux disease without esophagitis; Z87.891 Personal history of nicotine dependence; Z79.899 Other long term (current) drug therapy; Z79.84 Long term (current) use of oral hypoglycemic drugs | CPT/HCPCS: 99283 ==

== ENCOUNTER 2022-12-22 09:19 | Day surgery (SDC) | payer OTHER ==
[2022-12-22] MEDS ORDERED: Albumin 25% 200 ML ONE (10:15)
[2022-12-22] MEDS ORDERED: Lidocaine 1% PF 5 ML VIAL ONE (10:15)
[2022-12-22] MEDS ORDERED: Sodium Bicarbonate 2.5 MEQ/5 ML VIAL ONE (10:15)
[2022-12-22 10:56] LABS: #Basophils 0.1 thou/uL (0.0-0.2); #Eosinphils 0.4 thou/uL (0.0-0.7); #Lymphocytes 0.6 thou/uL (1.20-3.40); #Monocytes 0.6 thou/uL (0.11-0.59); %Basophils 1.2 % (0.0-1.0); %Eosinophils 9.2 % (0.0-10.0); %Lymphocytes 11.9 % (21.0-51.0); %Neutrophils 64.7 % (42.0-75.0); Hemoglobin 10.1 g/dL (12.0-16.0); Mean Corpuscular Hemoglobin 29.7 pg (27.0-31.0); Mean Corpuscular Volume 87.6 fl (78.0-98.0); Mean Platelet Volume 11.3 fL (7.4-10.4); Platelet Count 58 10x3/uL (130-400); RBC Distribution Width 13.3 % (11.5-14.5); Red Blood Cell (RBC) Count 3.41 mill/uL (4.20-5.40); White Blood Cell (WBC) Count 4.6 10x3/uL (4.8-10.8)
[2022-12-22 11:05] LABS: INR-International Normal Ratio 1.4; Prothrombin Time 17.9 sec (12.0-14.7)
[2022-12-22 11:12] LABS: ALT (SGPT) 21 U/L (8-55); AST (SGOT) 28 U/L (5-34); Albumin 3.4 g/dL (3.5-5.0); Alkaline Phosphatase 79 U/L (40-110); Anion Gap 14 mmol/L (10-20); BUN (Urea Nitrogen) 36 mg/dL (9.8-20.1); Bilirubin, Total 1.4 mg/dL (0.2-1.2); Calc. Creatinine Clearance 0 mL/min (70-130); Calcium 8.7 mg/dL (7.8-10.44); Carbon Dioxide 19 mmol/L (22-29); Chloride 115 mmol/L (98-107); Estimated GFR 25; Globulin 2.3 g/dL (2.4-3.5); Glucose 138 mg/dL (70-105); Potassium 3.9 mmol/L (3.5-5.1); Protein, Total 5.7 g/dL (6.0-8.3); Sodium 144 mmol/L (136-145)
[2022-12-22 12:36] VITALS: BP 161/75
[2022-12-22 14:03] LABS: Albumin Less than 1.0 g/dL (3.5-5.0); Protein, Total Less than 1.0 g/dL (6.0-8.3)
[2022-12-22 14:30] LABS: RBC Count-Automated (BF) 1071 /cu.mm; WBC/Nucleated-Auto (BF) 56 /cu.mm
[2022-12-22 14:31] LABS: Body Fluid Source Ascites Body Fluid; Clarity Hazy (Clear); Tube # EDTA
[2022-12-22 14:32] LABS: BF Color Yellow
[2022-12-22 14:34] LABS: Cell Count Non Hematic 60 %; Lymphocytes 40 %
== END 2022-12-22 11:46 | disposition home or self-care (01) ==
LOC: ULT 09:19
PROVIDERS: ATTEND Internal Medicine Gastroenterology
PROC: 0W9G3ZX Drainage of Peritoneal Cavity, Percutaneous Approach, Diagnostic (ICD-10-PCS; principal; 2022-12-22)
DX: K74.60 Unspecified cirrhosis of liver (principal); R18.8 Other ascites; K76.82 Hepatic encephalopathy; Z88.2 Allergy status to sulfonamides; Z88.5 Allergy status to narcotic agent; Z88.6 Allergy status to analgesic agent; Z88.8 Allergy status to other drugs, medicaments and biological substances; Z91.048 Other nonmedicinal substance allergy status
CPT/HCPCS: 49083; 80053; 82042; 83735; 84155; 85025; 85060; 85610; 87070; 87205; 89051; J1642; P9047

== ENCOUNTER → 2022-12-29 | Day surgery (SDC) | payer OTHER ==
[~2022-12-29] MED LIST changes: +Albumin 25% 100 ML ONE; -Albumin 25% 200 ML ONE
[2022-12-29 12:21] LABS: Body Fluid Source Ascites Body Fluid; RBC Count-Automated (BF) 22 /cu.mm; Tube # EDTA; WBC/Nucleated-Auto (BF) 33 /cu.mm
[2022-12-29 12:22] LABS: BF Color Yellow; Clarity Hazy (Clear)
[2022-12-29 13:42] LABS: BF Segmented Neutrophils 3 %; Cell Count Non Hematic 82 %; Lymphocytes 15 %
== END | disposition home or self-care (01) ==
LOC: ULT 09:45
PROVIDERS: ATTEND Internal Medicine Gastroenterology
PROC: 0W9G3ZX Drainage of Peritoneal Cavity, Percutaneous Approach, Diagnostic (ICD-10-PCS; principal; 2022-12-29)
DX: R18.8 Other ascites (principal); Z88.2 Allergy status to sulfonamides; Z88.5 Allergy status to narcotic agent; Z88.6 Allergy status to analgesic agent; Z88.8 Allergy status to other drugs, medicaments and biological substances; Z91.018 Allergy to other foods; Z91.048 Other nonmedicinal substance allergy status
CPT/HCPCS: 49083; 82042; 84157; 85060; 87070; 87205; 89051; J1642; P9047

== ENCOUNTER → 2023-01-05 | Day surgery (SDC) | payer OTHER ==
[~2023-01-05] MED LIST changes: -Albumin 25% 100 ML ONE; +Albumin 25% 200 ML ONE; +Albumin 25% 25 GM/100 ML BOT IVPB SCH
[2023-01-05 12:56] VITALS: BP 126/66
[2023-01-05 13:19] LABS: #Basophils 0.1 thou/uL (0.0-0.2); #Eosinphils 0.7 thou/uL (0.0-0.7); #Monocytes 0.8 thou/uL (0.11-0.59); #Neutrophils 3.7 thou/uL (1.40-6.50); %Basophils 1.5 % (0.0-1.0); %Eosinophils 11.4 % (0.0-10.0); %Lymphocytes 9.7 % (21.0-51.0); %Monocytes 13.5 % (0.0-10.0); %Neutrophils 63.4 % (42.0-75.0); Hemoglobin 8.4 g/dL (12.0-16.0); Mean Corpuscular HGB CONC 31.5 g/dL (32.0-36.0); Mean Corpuscular Hemoglobin 27.9 pg (27.0-31.0); Mean Corpuscular Volume 88.7 fl (78.0-98.0); Mean Platelet Volume 12.8 fL (7.4-10.4); RBC Distribution Width 15.6 % (11.5-14.5); Red Blood Cell (RBC) Count 3.01 mill/uL (4.20-5.40); White Blood Cell (WBC) Count 5.9 10x3/uL (4.8-10.8)
[2023-01-05 13:21] LABS: Platelet Count 70 10x3/uL (130-400)
[2023-01-05 13:32] LABS: INR-International Normal Ratio 1.3; Prothrombin Time 16.7 sec (12.0-14.7)
[2023-01-05 13:41] LABS: ALT (SGPT) 22 U/L (8-55); AST (SGOT) 28 U/L (5-34); Alkaline Phosphatase 75 U/L (40-110); Anion Gap 10 mmol/L (10-20); BUN (Urea Nitrogen) 42 mg/dL (9.8-20.1); Calc. Creatinine Clearance 0 mL/min (70-130); Calcium 8.2 mg/dL (7.8-10.44); Carbon Dioxide 18 mmol/L (22-29); Chloride 111 mmol/L (98-107); Estimated GFR 28; Globulin 2.4 g/dL (2.4-3.5); Glucose 134 mg/dL (70-105); Magnesium 2.2 mg/dL (1.6-2.6); Potassium 3.9 mmol/L (3.5-5.1); Protein, Total 5.4 g/dL (6.0-8.3); Sodium 135 mmol/L (136-145)
[2023-01-05 14:58] LABS: RBC Count-Automated (BF) 0 /cu.mm; WBC/Nucleated-Auto (BF) 47 /cu.mm
[2023-01-05 15:10] LABS: BF Color Colorless; Body Fluid Source Ascites Body Fluid; Clarity Hazy (Clear); Tube # EDTA
[2023-01-05 15:12] LABS: BF Segmented Neutrophils 2 %; Cell Count Non Hematic 65 %; Lymphocytes 33 %
== END | disposition home or self-care (01) ==
LOC: ULT 10:30
PROVIDERS: ATTEND Internal Medicine Gastroenterology
PROC: 0W9G3ZX Drainage of Peritoneal Cavity, Percutaneous Approach, Diagnostic (ICD-10-PCS; principal; 2023-01-05)
DX: K74.60 Unspecified cirrhosis of liver (principal); R18.8 Other ascites; Z88.2 Allergy status to sulfonamides; Z88.5 Allergy status to narcotic agent; Z88.6 Allergy status to analgesic agent; Z88.8 Allergy status to other drugs, medicaments and biological substances; Z91.018 Allergy to other foods; Z91.048 Other nonmedicinal substance allergy status
CPT/HCPCS: 49083; 80053; 82042; 83735; 84157; 85025; 85060; 85610; 87070; 87205; 89051; J1642; P9047

== ENCOUNTER 2023-01-07 19:33 | Emergency (ER) | payer OTHER ==
[2023-01-07 20:34] LABS: #Basophils 0.1 thou/uL (0.0-0.2); #Eosinphils 0.3 thou/uL (0.0-0.7); #Monocytes 0.7 thou/uL (0.11-0.59); #Neutrophils 3.5 thou/uL (1.40-6.50); %Basophils 1.2 % (0.0-1.0); %Eosinophils 6.5 % (0.0-10.0); %Lymphocytes 7.1 % (21.0-51.0); %Monocytes 14.5 % (0.0-10.0); %Neutrophils 70.1 % (42.0-75.0); Mean Corpuscular Hemoglobin 27.4 pg (27.0-31.0); Mean Corpuscular Volume 91.2 fl (78.0-98.0); RBC Distribution Width 16.2 % (11.5-14.5); Red Blood Cell (RBC) Count 3.29 mill/uL (4.20-5.40)
[2023-01-07 20:42] LABS: Platelet Count 83 10x3/uL (130-400)
[2023-01-07 20:57] LABS: ALT (SGPT) 21 U/L (8-55); AST (SGOT) 33 U/L (5-34); Albumin 3.7 g/dL (3.5-5.0); Alkaline Phosphatase 76 U/L (40-110); Anion Gap 13 mmol/L (10-20); BUN (Urea Nitrogen) 40 mg/dL (9.8-20.1); Bilirubin, Total 1.4 mg/dL (0.2-1.2); Calc. Creatinine Clearance 0 mL/min (70-130); Calcium 8.8 mg/dL (7.8-10.44); Carbon Dioxide 18 mmol/L (22-29); Chloride 115 mmol/L (98-107); Estimated GFR 25; Globulin 2.4 g/dL (2.4-3.5); Glucose 69 mg/dL (70-105); Lipase 49 U/L (8-78); Potassium 4.2 mmol/L (3.5-5.1); Protein, Total 6.1 g/dL (6.0-8.3); Sodium 142 mmol/L (136-145)
[2023-01-07 21:53] LABS: Bilirubin Negative (Negative); Blood, Urine Trace (Negative); Clarity Clear (Clear); Glucose, Urine (Dipstick) Normal (Negative); Ketone, Urine Negative (Negative); Leukocyte Negative Leu/uL (Negative); Nitrite Negative (Negative); Protein, Urine (Dipstick) Negative (Neg-Trace); RBC/HPF 0-3 HPF (0-3); Specific Gravity, Urine 1.014 (1.002-1.036); Squamous Epithelial 0-3 HPF (0-3); Urobilinogen Normal mg/dL (Less than 2); WBC/HPF 0-3 HPF (0-3)
[2023-01-07 21:55] LABS: Pregnancy Test - Urine (BHCG) Negative (Negative); Pregu Control Background? CLEAR/WHITE (CLR/WHITE); Pregu Control Bar Appear? YES (CONTROL BAR); Specific Gravity 1.014 (1.002-1.036)
[2023-01-07 22:05] LABS: Bacteria/HPF Rare-Few HPF (None Seen)
== END 2023-01-08 02:57 | disposition home or self-care (01) ==
LOC: ERS 19:33
DX: R19.7 Diarrhea, unspecified (principal); R11.2 Nausea with vomiting, unspecified; E11.9 Type 2 diabetes mellitus without complications; D64.9 Anemia, unspecified; F17.210 Nicotine dependence, cigarettes, uncomplicated
CPT/HCPCS: 36415; 36416; 80053; 81003; 81015; 81025; 82140; 83690; 84484; 85025; 93005

== ENCOUNTER 2023-01-12 09:57 | Day surgery (SDC) | payer OTHER ==
[2023-01-12] MEDS ORDERED: Lidocaine 1% PF 5 ML VIAL ONE (10:29)
[2023-01-12] MEDS ORDERED: Sodium Bicarbonate 2.5 MEQ/5 ML VIAL ONE (10:29)
[2023-01-12] MEDS ORDERED: Albumin 25% 200 ML ONE (10:29)
[2023-01-12 13:24] VITALS: BP 113/46
[2023-01-12 14:00] LABS: RBC Count-Automated (BF) 12 /cu.mm; WBC/Nucleated-Auto (BF) 35 /cu.mm
[2023-01-12 14:24] LABS: BF Color Colorless; Body Fluid Source Ascites Body Fluid; Clarity Clear (Clear); Tube # EDTA
[2023-01-12 14:30] LABS: BF Segmented Neutrophils 1 %; Cell Count Non Hematic 72 %; Lymphocytes 27 %
[2023-01-12] MEDS ORDERED: Albumin 25% 25 GM/100 ML BOT IVPB SCH (14:30)
== END 2023-01-12 12:15 | disposition home or self-care (01) ==
LOC: ULT 09:57
PROVIDERS: ATTEND Internal Medicine Gastroenterology
PROC: 0W9G3ZX Drainage of Peritoneal Cavity, Percutaneous Approach, Diagnostic (ICD-10-PCS; principal; 2023-01-12)
DX: K74.60 Unspecified cirrhosis of liver (principal); R18.8 Other ascites; K76.82 Hepatic encephalopathy; Z88.2 Allergy status to sulfonamides; Z88.5 Allergy status to narcotic agent; Z88.6 Allergy status to analgesic agent; Z88.8 Allergy status to other drugs, medicaments and biological substances; Z91.018 Allergy to other foods; Z91.048 Other nonmedicinal substance allergy status
CPT/HCPCS: 49083; 82042; 84157; 85060; 87070; 87205; 89051; J1642; P9047

== ENCOUNTER → 2023-02-09 | Day surgery (SDC) | payer OTHER ==
[~2023-02-09] MED LIST changes: -Albumin 25% 25 GM/100 ML BOT IVPB SCH
[2023-02-09 12:27] LABS: ALT (SGPT) 20 U/L (8-55); AST (SGOT) 30 U/L (5-34); Albumin 3.3 g/dL (3.5-5.0); Alkaline Phosphatase 87 U/L (40-110); Anion Gap 11 mmol/L (10-20); BUN (Urea Nitrogen) 48 mg/dL (9.8-20.1); Bilirubin, Total 0.9 mg/dL (0.2-1.2); Calc. Creatinine Clearance 31 mL/min (70-130); Calcium 8.4 mg/dL (7.8-10.44); Carbon Dioxide 17 mmol/L (22-29); Chloride 110 mmol/L (98-107); Estimated GFR 26; Glucose 183 mg/dL (70-105); Magnesium 1.9 mg/dL (1.6-2.6); Potassium 4.5 mmol/L (3.5-5.1); Protein, Total 5.3 g/dL (6.0-8.3); Sodium 133 mmol/L (136-145)
[2023-02-09 13:42] LABS: BF Color Colorless; Body Fluid Source Ascites Body Fluid; Clarity Hazy (Clear); RBC Count-Automated (BF) 68 /cu.mm; Tube # EDTA; WBC/Nucleated-Auto (BF) 34 /cu.mm
[2023-02-09 13:48] LABS: Lymphocytes 33 %
[2023-02-09 13:49] LABS: BF Segmented Neutrophils 1 %; Cell Count Non Hematic 66 %
== END ==
LOC: ULT 09:54
PROVIDERS: ATTEND Internal Medicine Gastroenterology
DX: R18.8 Other ascites (principal); K74.60 Unspecified cirrhosis of liver; K65.2 Spontaneous bacterial peritonitis; K72.90 Hepatic failure, unspecified without coma; K31.819 Angiodysplasia of stomach and duodenum without bleeding; Z88.0 Allergy status to penicillin; Z88.2 Allergy status to sulfonamides; Z88.8 Allergy status to other drugs, medicaments and biological substances; Z88.6 Allergy status to analgesic agent
CPT/HCPCS: 49083; 80053; 82042; 83735; 84157; 85060; 87070; 87205; 89051; J1642; P9047

== ENCOUNTER 2023-02-10 10:16 | Outpatient (CLI) | payer OTHER ==
[~2023-02-10 10:16] MED LIST changes: -Albumin 25% 200 ML ONE; -Lidocaine 1% PF 5 ML VIAL ONE; +Magnevist 469MG/ML 20 ML VIAL ONE; -Sodium Bicarbonate 2.5 MEQ/5 ML VIAL ONE
== END 2023-02-10 10:17 | disposition home or self-care (01) ==
LOC: BICMRI 10:16
PROVIDERS: ATTEND Physician Assistant Medical
DX: K74.60 Unspecified cirrhosis of liver (principal)
CPT/HCPCS: 74183; A9579

== ENCOUNTER 2023-02-16 10:03 | Day surgery (SDC) | payer OTHER ==
[2023-02-16] MEDS ORDERED: Albumin 25% 200 ML ONE (10:20)
[2023-02-16] MEDS ORDERED: Lidocaine 1% PF 5 ML VIAL ONE (10:20)
[2023-02-16] MEDS ORDERED: Sodium Bicarbonate 2.5 MEQ/5 ML VIAL ONE (10:36)
[2023-02-16] MEDS ORDERED: Albumin 25% 25 GM/100 ML BOT IVPB SCH (10:45)
[2023-02-16 11:13] LABS: #Basophils 0.1 thou/uL (0.0-0.2); #Eosinphils 0.2 thou/uL (0.0-0.7); #Monocytes 0.9 thou/uL (0.11-0.59); #Neutrophils 3.9 thou/uL (1.40-6.50); %Basophils 1.3 % (0.0-1.0); %Eosinophils 3.6 % (0.0-10.0); %Lymphocytes 8.8 % (21.0-51.0); %Monocytes 16.6 % (0.0-10.0); %Neutrophils 69.3 % (42.0-75.0); Hemoglobin 8.1 g/dL (12.0-16.0); Mean Corpuscular HGB CONC 32.8 g/dL (32.0-36.0); Mean Corpuscular Hemoglobin 28.4 pg (27.0-31.0); Mean Corpuscular Volume 86.7 fl (78.0-98.0); RBC Distribution Width 15.6 % (11.5-14.5); Red Blood Cell (RBC) Count 2.85 mill/uL (4.20-5.40); White Blood Cell (WBC) Count 5.6 10x3/uL (4.8-10.8)
[2023-02-16 11:19] LABS: Platelet Count 68 10x3/uL (130-400)
[2023-02-16 11:32] LABS: INR-International Normal Ratio 1.4; Prothrombin Time 17.7 sec (12.0-14.7)
[2023-02-16 11:33] LABS: PTT 52.6 sec (22.9-36.1)
[2023-02-16 11:39] LABS: ALT (SGPT) 22 U/L (8-55); AST (SGOT) 28 U/L (5-34); Albumin 3.3 g/dL (3.5-5.0); Alkaline Phosphatase 86 U/L (40-110); Anion Gap 15 mmol/L (10-20); BUN (Urea Nitrogen) 58 mg/dL (9.8-20.1); Bilirubin, Total 1.2 mg/dL (0.2-1.2); Calc. Creatinine Clearance 0 mL/min (70-130); Calcium 9.1 mg/dL (7.8-10.44); Carbon Dioxide 14 mmol/L (22-29); Chloride 108 mmol/L (98-107); Estimated GFR 23; Globulin 2.2 g/dL (2.4-3.5); Glucose 240 mg/dL (70-105); Potassium 4.4 mmol/L (3.5-5.1); Protein, Total 5.5 g/dL (6.0-8.3); Sodium 133 mmol/L (136-145)
[2023-02-16 12:34] LABS: BF Color Colorless; Body Fluid Source Ascites Body Fluid; Clarity Hazy (Clear)
[2023-02-16 12:35] LABS: Tube # EDTA
[2023-02-16 12:53] LABS: BF RBC Count - Manual 20 /cu.mm; BF WBC/Nonhematics Ct.-Manual 6 /cu.mm
[2023-02-16 15:25] VITALS: BP 120/61
== END 2023-02-16 12:45 | disposition home or self-care (01) ==
LOC: ULT 10:03
PROVIDERS: ATTEND Internal Medicine Gastroenterology
DX: R18.8 Other ascites (principal)
CPT/HCPCS: 49083; 80053; 82042; 83735; 84157; 85025; 85610; 85730; 87070; 87205; 89051; J1642; P9047

== ENCOUNTER 2023-02-28 13:24 | Emergency (ER) | payer OTHER ==
[2023-02-28] MEDS ORDERED: Ondansetron PF 4 MG/2 ML Vial ONE (13:48)
[2023-02-28 14:30] LABS: #Basophils 0.1 thou/uL (0.0-0.2); #Eosinphils 0.3 thou/uL (0.0-0.7); #Monocytes 0.7 thou/uL (0.11-0.59); #Neutrophils 3.7 thou/uL (1.40-6.50); %Basophils 1.2 % (0.0-1.0); %Eosinophils 5.3 % (0.0-10.0); %Lymphocytes 8.8 % (21.0-51.0); %Monocytes 12.7 % (0.0-10.0); %Neutrophils 71.6 % (42.0-75.0); Hemoglobin 6.9 g/dL (12.0-16.0); Mean Corpuscular HGB CONC 31.7 g/dL (32.0-36.0); Mean Corpuscular Volume 91.6 fl (78.0-98.0); Mean Platelet Volume 13.3 fL (7.4-10.4); RBC Distribution Width 18.1 % (11.5-14.5); Red Blood Cell (RBC) Count 2.38 mill/uL (4.20-5.40); White Blood Cell (WBC) Count 5.1 10x3/uL (4.8-10.8)
[2023-02-28 14:31] LABS: Critical Call w/ Read Back Y; Platelet Count 78 10x3/uL (130-400)
[2023-02-28 14:41] LABS: INR-International Normal Ratio 1.4; PTT 37.2 sec (22.9-36.1); Prothrombin Time 17.6 sec (12.0-14.7)
[2023-02-28 14:53] LABS: ALT (SGPT) 20 U/L (8-55); AST (SGOT) 23 U/L (5-34); Albumin 3.4 g/dL (3.5-5.0); Alkaline Phosphatase 68 U/L (40-110); Anion Gap 16 mmol/L (10-20); BUN (Urea Nitrogen) 61 mg/dL (9.8-20.1); Bilirubin, Total 0.9 mg/dL (0.2-1.2); Calc. Creatinine Clearance 0 mL/min (70-130); Calcium 8.7 mg/dL (7.8-10.44); Carbon Dioxide 14 mmol/L (22-29); Chloride 115 mmol/L (98-107); Estimated GFR 22; Glucose 202 mg/dL (70-105); Potassium 4.5 mmol/L (3.5-5.1); Protein, Total 5.4 g/dL (6.0-8.3); Sodium 140 mmol/L (136-145)
[2023-02-28] MEDS ORDERED: Ondansetron ODT 4 MG TAB SL PRN (15:00)
[2023-02-28] MEDS ORDERED: Sodium Chloride 0.9% 1,000 ML IV SCH (15:00)
[2023-02-28] MEDS ORDERED: Ondansetron PF 4 MG/2 ML Vial IVP PRN (15:00)
[2023-02-28] MEDS ORDERED: Calcium Carbonate 500 MG ChewTAB PO PRN (15:47)
[2023-02-28] MEDS ORDERED: Lactated Ringer's 1,000 ML IV SCH (16:00)
[2023-02-28] MEDS ORDERED: Glucagon 1 MG/ML KIT IM PRN (17:10)
[2023-02-28] MEDS ORDERED: Dextrose 5% in Water 1,000 ML IV PRN (17:10)
[2023-02-28] MEDS ORDERED: Dextrose 50% Abboject 50 ML SYRINGE SLOW IVP PRN (17:10)
[2023-02-28 17:11] VITALS: BMI 29.3
[2023-02-28] MEDS ORDERED: Albuterol 200 PUFF (6.7GM INHALER) INH PRN (18:37)
[2023-02-28] MEDS: busPIRone HCl 10 MG TAB PO SCH (20:40)
[2023-02-28] MEDS: Cholecalciferol 1,000 UNITS (25 MCG) TAB PO SCH (20:40)
[2023-02-28] MEDS: Furosemide 40 MG TAB PO SCH (20:40)
[2023-02-28] MEDS: Loratadine 10 MG TAB PO SCH (20:43)
[2023-02-28] MEDS: Spironolactone 100 MG TAB PO SCH (20:43)
[2023-02-28] MEDS: Midodrine HCl 5 MG TAB PO SCH (20:43)
[2023-02-28] MEDS: Rifaximin 550 MG TAB PO SCH (20:49)
[2023-02-28] MEDS: HumaLOG 300 UNITS/3 ML VIAL SC PRN (20:54)
[2023-03-01 04:41] LABS: #Basophils 0.1 thou/uL (0.0-0.2); #Eosinphils 0.5 thou/uL (0.0-0.7); #Monocytes 0.8 thou/uL (0.11-0.59); #Neutrophils 2.8 thou/uL (1.40-6.50); %Basophils 1.3 % (0.0-1.0); %Eosinophils 9.6 % (0.0-10.0); %Lymphocytes 12.2 % (21.0-51.0); %Monocytes 16.3 % (0.0-10.0); %Neutrophils 60.4 % (42.0-75.0); Hemoglobin 8.7 g/dL (12.0-16.0); Mean Corpuscular HGB CONC 33.2 g/dL (32.0-36.0); Mean Corpuscular Hemoglobin 29.5 pg (27.0-31.0); Mean Platelet Volume 11.9 fL (7.4-10.4); RBC Distribution Width 17.1 % (11.5-14.5); Red Blood Cell (RBC) Count 2.95 mill/uL (4.20-5.40); White Blood Cell (WBC) Count 4.7 10x3/uL (4.8-10.8)
[2023-03-01 04:48] LABS: Platelet Count 65 10x3/uL (130-400)
[2023-03-01 04:49] LABS: Mean Corpuscular Volume 88.8 fl (78.0-98.0)
[2023-03-01 05:04] LABS: Anion Gap 14 mmol/L (10-20); BUN (Urea Nitrogen) 60 mg/dL (9.8-20.1); Calc. Creatinine Clearance 34 mL/min (70-130); Calcium 8.6 mg/dL (7.8-10.44); Carbon Dioxide 17 mmol/L (22-29); Chloride 115 mmol/L (98-107); Estimated GFR 23; Glucose 112 mg/dL (70-105); Potassium 3.9 mmol/L (3.5-5.1); Sodium 142 mmol/L (136-145)
[2023-03-01] MEDS: Magnesium Oxide 250 MG TAB PO SCH (08:30)
[2023-03-01] MEDS: medroxyPROGESTERone Acetate 2.5 MG TAB PO SCH (08:31)
[2023-03-01] MEDS: Midodrine HCl 5 MG TAB PO SCH ×3 (08:31→19:52)
[2023-03-01] MEDS: Spironolactone 100 MG TAB PO SCH ×2 (08:31→19:52)
[2023-03-01] MEDS: Cholecalciferol 1,000 UNITS (25 MCG) TAB PO SCH ×2 (08:31→19:52)
[2023-03-01] MEDS: Atorvastatin Calcium 10 MG TAB PO SCH (08:32)
[2023-03-01] MEDS: Ferrous Sulfate 325 MG TAB PO SCH ×3 (08:32→17:59)
[2023-03-01] MEDS: Furosemide 40 MG TAB PO SCH ×3 (08:32→19:52)
[2023-03-01] MEDS: busPIRone HCl 10 MG TAB PO SCH ×2 (08:33→19:52)
[2023-03-01] MEDS: Cyanocobalamin (Vitamin B-12) 1,000 MCG TAB PO SCH (08:33)
[2023-03-01] MEDS: Folic Acid 1 MG TAB PO SCH (08:33)
[2023-03-01] MEDS: Rifaximin 550 MG TAB PO SCH ×2 (08:39→19:52)
[2023-03-01] MEDS: Bupropion 150 MG XL TAB PO SCH (08:44)
[2023-03-01] MEDS: traMADol HCl 50 MG TAB PO PRN ×3 (08:53→23:28)
[2023-03-01] MEDS ORDERED: Sodium Bicarbonate 2.5 MEQ/5 ML VIAL ONE (11:37)
[2023-03-01] MEDS ORDERED: Lidocaine 1% PF 5 ML VIAL ONE (11:37)
[2023-03-01 13:22] LABS: RBC Count-Automated (BF) 11 /cu.mm; WBC/Nucleated-Auto (BF) 11 /cu.mm
[2023-03-01 13:43] LABS: BF Color Colorless; Body Fluid Source Peritoneal Fluid; Clarity Clear (Clear); Tube # EDTA
[2023-03-01 13:44] LABS: BF Segmented Neutrophils 1 %; Cell Count Non Hematic 77 %; Lymphocytes 22 %
[2023-03-01] MEDS: HumaLOG 300 UNITS/3 ML VIAL SC PRN (17:59)
[2023-03-01] MEDS: Mometasone Furoate 30 PUFF 220 MCG INH SCH (19:30)
[2023-03-01] MEDS: Loratadine 10 MG TAB PO SCH (19:52)
[2023-03-01] MEDS: Melatonin 3 MG TAB PO PRN (23:25)
[2023-03-02] MEDS: HumaLOG 300 UNITS/3 ML VIAL SC PRN ×3 (06:22→18:04)
[2023-03-02 06:26] LABS: #Basophils 0.1 thou/uL (0.0-0.2); #Eosinphils 0.3 thou/uL (0.0-0.7); #Monocytes 0.8 thou/uL (0.11-0.59); %Basophils 1.1 % (0.0-1.0); %Eosinophils 5.2 % (0.0-10.0); %Lymphocytes 7.2 % (21.0-51.0); %Monocytes 14.5 % (0.0-10.0); %Neutrophils 71.6 % (42.0-75.0); Hemoglobin 9.1 g/dL (12.0-16.0); Mean Corpuscular HGB CONC 32.6 g/dL (32.0-36.0); Mean Corpuscular Hemoglobin 29.3 pg (27.0-31.0); Mean Corpuscular Volume 89.7 fl (78.0-98.0); Mean Platelet Volume 13.9 fL (7.4-10.4); RBC Distribution Width 16.8 % (11.5-14.5); Red Blood Cell (RBC) Count 3.11 mill/uL (4.20-5.40); White Blood Cell (WBC) Count 5.6 10x3/uL (4.8-10.8)
[2023-03-02 06:36] LABS: Platelet Count 56 10x3/uL (130-400)
[2023-03-02 06:54] LABS: Anion Gap 11 mmol/L (10-20); BUN (Urea Nitrogen) 56 mg/dL (9.8-20.1); Calc. Creatinine Clearance 33 mL/min (70-130); Calcium 8.6 mg/dL (7.8-10.44); Carbon Dioxide 17 mmol/L (22-29); Chloride 110 mmol/L (98-107); Estimated GFR 22; Glucose 171 mg/dL (70-105); Potassium 4.2 mmol/L (3.5-5.1); Sodium 134 mmol/L (136-145)
[2023-03-02] MEDS: traMADol HCl 50 MG TAB PO PRN ×2 (08:24→16:01)
[2023-03-02] MEDS: Cholecalciferol 1,000 UNITS (25 MCG) TAB PO SCH ×2 (08:25→20:31)
[2023-03-02] MEDS: Bupropion 150 MG XL TAB PO SCH (08:25)
[2023-03-02] MEDS: Atorvastatin Calcium 10 MG TAB PO SCH (08:25)
[2023-03-02] MEDS: Magnesium Oxide 250 MG TAB PO SCH (08:26)
[2023-03-02] MEDS: Ferrous Sulfate 325 MG TAB PO SCH ×3 (08:26→16:01)
[2023-03-02] MEDS: medroxyPROGESTERone Acetate 2.5 MG TAB PO SCH (08:27)
[2023-03-02] MEDS: Folic Acid 1 MG TAB PO SCH (08:27)
[2023-03-02] MEDS: Rifaximin 550 MG TAB PO SCH ×2 (08:27→20:31)
[2023-03-02] MEDS: Spironolactone 100 MG TAB PO SCH (08:27)
[2023-03-02] MEDS: Cyanocobalamin (Vitamin B-12) 1,000 MCG TAB PO SCH (08:27)
[2023-03-02] MEDS: Midodrine HCl 5 MG TAB PO SCH ×3 (08:27→20:31)
[2023-03-02] MEDS: busPIRone HCl 10 MG TAB PO SCH ×2 (08:27→20:31)
[2023-03-02] MEDS: Mometasone Furoate 30 PUFF 220 MCG INH SCH (18:53)
[2023-03-02] MEDS: Melatonin 3 MG TAB PO PRN (20:30)
[2023-03-02] MEDS: Loratadine 10 MG TAB PO SCH (20:30)
[2023-03-03 02:10] LABS: Campy jejuni + coli by PCR Negative (Negative); STEC Shiga Toxin 1+2 Negative (Negative); Salmonella spp. by PCR Negative (Negative); Shigella spp + EIEC by PCR Negative (Negative)
[2023-03-03 05:00] LABS: #Basophils 0.1 thou/uL (0.0-0.2); #Eosinphils 0.4 thou/uL (0.0-0.7); #Monocytes 0.9 thou/uL (0.11-0.59); %Basophils 1.3 % (0.0-1.0); %Eosinophils 6.8 % (0.0-10.0); %Lymphocytes 11.7 % (21.0-51.0); %Monocytes 14.3 % (0.0-10.0); %Neutrophils 65.4 % (42.0-75.0); Hemoglobin 9.4 g/dL (12.0-16.0); Mean Corpuscular HGB CONC 32.9 g/dL (32.0-36.0); Mean Corpuscular Hemoglobin 29.3 pg (27.0-31.0); Mean Corpuscular Volume 89.1 fl (78.0-98.0); Mean Platelet Volume 11.4 fL (7.4-10.4); RBC Distribution Width 16.5 % (11.5-14.5); Red Blood Cell (RBC) Count 3.21 mill/uL (4.20-5.40); White Blood Cell (WBC) Count 6.2 10x3/uL (4.8-10.8)
[2023-03-03 05:15] LABS: Platelet Count 60 10x3/uL (130-400)
[2023-03-03 05:20] LABS: Anion Gap 12 mmol/L (10-20); BUN (Urea Nitrogen) 58 mg/dL (9.8-20.1); Calc. Creatinine Clearance 25 mL/min (70-130); Calcium 8.7 mg/dL (7.8-10.44); Carbon Dioxide 17 mmol/L (22-29); Chloride 112 mmol/L (98-107); Estimated GFR 21; Glucose 150 mg/dL (70-105); Sodium 137 mmol/L (136-145)
[2023-03-03] MEDS: Midodrine HCl 5 MG TAB PO SCH ×3 (08:48→20:49)
[2023-03-03] MEDS: Atorvastatin Calcium 10 MG TAB PO SCH (08:48)
[2023-03-03] MEDS: busPIRone HCl 10 MG TAB PO SCH ×2 (08:48→20:48)
[2023-03-03] MEDS: Cholecalciferol 1,000 UNITS (25 MCG) TAB PO SCH ×2 (08:48→20:48)
[2023-03-03] MEDS: medroxyPROGESTERone Acetate 2.5 MG TAB PO SCH (08:48)
[2023-03-03] MEDS: Bupropion 150 MG XL TAB PO SCH (08:48)
[2023-03-03] MEDS: Ferrous Sulfate 325 MG TAB PO SCH ×3 (08:49→17:27)
[2023-03-03] MEDS: Folic Acid 1 MG TAB PO SCH (08:49)
[2023-03-03] MEDS: Rifaximin 550 MG TAB PO SCH ×2 (08:49→20:49)
[2023-03-03] MEDS: Magnesium Oxide 250 MG TAB PO SCH (08:49)
[2023-03-03] MEDS: Cyanocobalamin (Vitamin B-12) 1,000 MCG TAB PO SCH (08:49)
[2023-03-03] MEDS: Albumin 25% 25 GM/100 ML BOT IVPB SCH ×2 (14:20→17:27)
[2023-03-03] MEDS: traMADol HCl 50 MG TAB PO PRN (14:27)
[2023-03-03] MEDS: Mometasone Furoate 30 PUFF 220 MCG INH SCH (19:12)
[2023-03-03] MEDS: Loratadine 10 MG TAB PO SCH (20:48)
[2023-03-03] MEDS: Melatonin 3 MG TAB PO PRN (20:49)
[2023-03-03] MEDS: HumaLOG 300 UNITS/3 ML VIAL SC PRN (20:49)
[2023-03-04] MEDS: Albumin 25% 25 GM/100 ML BOT IVPB SCH ×2 (00:52→06:07)
[2023-03-04 06:34] LABS: Hemoglobin 9.1 g/dL (12.0-16.0); Mean Corpuscular HGB CONC 33.7 g/dL (32.0-36.0); Mean Corpuscular Hemoglobin 30.1 pg (27.0-31.0); Mean Corpuscular Volume 89.4 fl (78.0-98.0); RBC Distribution Width 16.7 % (11.5-14.5); Red Blood Cell (RBC) Count 3.02 mill/uL (4.20-5.40); White Blood Cell (WBC) Count 4.1 10x3/uL (4.8-10.8)
[2023-03-04 06:49] LABS: Manual Diff?? YES
[2023-03-04 06:50] LABS: Delete Auto Diff?? YES; Platelet Count 47 10x3/uL (130-400)
[2023-03-04 06:55] LABS: Anion Gap 15 mmol/L (10-20); BUN (Urea Nitrogen) 61 mg/dL (9.8-20.1); Calc. Creatinine Clearance 25 mL/min (70-130); Calcium 9.1 mg/dL (7.8-10.44); Carbon Dioxide 17 mmol/L (22-29); Chloride 109 mmol/L (98-107); Estimated GFR 21; Glucose 121 mg/dL (70-105); Potassium 4.2 mmol/L (3.5-5.1); Sodium 137 mmol/L (136-145)
[2023-03-04 07:32] LABS: Band 4 % (5-11); Eosinophils 4 % (0-10); Lymphocytes 12 % (21-51); Monocytes 5 % (0-10); Neutrophil 75 % (42-75); Platelet Adequacy Comment Platelets Decreased; Polychromasia SLIGHT = 2-3 cells HPF (0-2); Total Cell Count 100
[2023-03-04] MEDS: Cholecalciferol 1,000 UNITS (25 MCG) TAB PO SCH (08:51)
[2023-03-04] MEDS: medroxyPROGESTERone Acetate 2.5 MG TAB PO SCH (08:51)
[2023-03-04] MEDS: busPIRone HCl 10 MG TAB PO SCH (08:51)
[2023-03-04] MEDS: Bupropion 150 MG XL TAB PO SCH (08:51)
[2023-03-04] MEDS: Magnesium Oxide 250 MG TAB PO SCH (08:52)
[2023-03-04] MEDS: Cyanocobalamin (Vitamin B-12) 1,000 MCG TAB PO SCH (08:52)
[2023-03-04] MEDS: Ferrous Sulfate 325 MG TAB PO SCH ×3 (08:52→16:27)
[2023-03-04] MEDS: Folic Acid 1 MG TAB PO SCH (08:52)
[2023-03-04] MEDS: Midodrine HCl 5 MG TAB PO SCH ×2 (08:52→16:27)
[2023-03-04] MEDS: Atorvastatin Calcium 10 MG TAB PO SCH (08:52)
[2023-03-04] MEDS ORDERED: Rifaximin 200 MG TAB PO SCH (09:00)
[2023-03-04] MEDS: traMADol HCl 50 MG TAB PO PRN (13:33)
[2023-03-04 15:45] VITALS: TEMP 97.8
[2023-03-04 15:51] VITALS: BP 115/70
== END 2023-02-28 16:29 | disposition short-term general hospital (02) ==
LOC: ERS 13:24 → 2NO 15:05 → UNDOADMIN 15:05 → UNDODISIN 03-04 17:20
DX: K92.2 Gastrointestinal hemorrhage, unspecified (principal); D64.9 Anemia, unspecified; K72.90 Hepatic failure, unspecified without coma; E11.9 Type 2 diabetes mellitus without complications; Z87.891 Personal history of nicotine dependence; K21.9 Gastro-esophageal reflux disease without esophagitis; Z79.899 Other long term (current) drug therapy
CPT/HCPCS: 36416; 36430; 49083; 80048; 80053; 82042; 84157; 85025; 85060; 85610; 85730; 86850; 86900; 86901; 87070; 87205; 87505; 89051; 93005; 96374; J1642; J1815; J2405; P9016; P9047; Q0162

== ENCOUNTER 2023-03-09 10:34 | Day surgery (SDC) | payer OTHER ==
[2023-03-09] MEDS ORDERED: Sodium Bicarbonate 2.5 MEQ/5 ML VIAL ONE (10:45)
[2023-03-09] MEDS ORDERED: Lidocaine 1% PF 5 ML VIAL ONE (10:45)
[2023-03-09] MEDS ORDERED: Albumin 25% 200 ML ONE (10:45)
[2023-03-09] MEDS ORDERED: Albumin 25% 25 GM/100 ML BOT IVPB SCH (11:00)
[2023-03-09 13:04] VITALS: BP 127/54
[2023-03-09 15:51] LABS: RBC Count-Automated (BF) 33 /cu.mm; WBC/Nucleated-Auto (BF) 22 /cu.mm
[2023-03-09 16:05] LABS: BF Color Colorless; Body Fluid Source Ascites Body Fluid; Clarity Hazy (Clear); Tube # EDTA
[2023-03-09 16:16] LABS: BF Segmented Neutrophils 5 %; Cell Count Non Hematic 74 %; Lymphocytes 21 %
== END 2023-03-09 12:30 | disposition home or self-care (01) ==
LOC: ULT 10:34
PROVIDERS: ATTEND Internal Medicine Gastroenterology
DX: R18.8 Other ascites (principal); K76.0 Fatty (change of) liver, not elsewhere classified; K65.2 Spontaneous bacterial peritonitis; K72.90 Hepatic failure, unspecified without coma; K31.89 Other diseases of stomach and duodenum; Z88.0 Allergy status to penicillin; Z88.2 Allergy status to sulfonamides; Z88.6 Allergy status to analgesic agent; Z88.8 Allergy status to other drugs, medicaments and biological substances
CPT/HCPCS: 49083; 82042; 84157; 85060; 87070; 87205; 89051; J1642; P9047

== ENCOUNTER → 2023-03-23 | Day surgery (SDC) | payer OTHER ==
[~2023-03-23] MED LIST changes: +Albumin 25% 200 ML ONE; +Lidocaine 1% PF 5 ML VIAL ONE; -Magnevist 469MG/ML 20 ML VIAL ONE; +Sodium Bicarbonate 2.5 MEQ/5 ML VIAL ONE
[2023-03-23 11:29] VITALS: BP 139/72; TEMP 97.7
[2023-03-23 13:24] LABS: BF Color Colorless; BF RBC Count - Manual 9 /cu.mm; BF WBC/Nonhematics Ct.-Manual 12 /cu.mm; Body Fluid Source Ascites Body Fluid; Clarity Hazy (Clear); Tube # EDTA
[2023-03-23 13:55] LABS: BF Segmented Neutrophils 2 %; Cell Count Non Hematic 75 %; Lymphocytes 23 %
== END ==
LOC: ULT 09:42
PROVIDERS: ATTEND Internal Medicine Gastroenterology
DX: R18.8 Other ascites (principal)
CPT/HCPCS: 49083; 82042; 84157; 85060; 89051; J1642; P9047

== ENCOUNTER 2023-03-30 10:24 | Day surgery (SDC) | payer OTHER ==
[2023-03-30] MEDS ORDERED: Albumin 25% 200 ML ONE (10:31)
[2023-03-30] MEDS ORDERED: Sodium Bicarbonate 2.5 MEQ/5 ML VIAL ONE (10:31)
[2023-03-30] MEDS ORDERED: Lidocaine 1% PF 5 ML VIAL ONE (10:31)
[2023-03-30 11:19] LABS: #Basophils 0.1 thou/uL (0.0-0.2); #Eosinphils 0.3 thou/uL (0.0-0.7); #Monocytes 0.8 thou/uL (0.11-0.59); #Neutrophils 5.9 thou/uL (1.40-6.50); %Basophils 0.8 % (0.0-1.0); %Eosinophils 4.2 % (0.0-10.0); %Lymphocytes 5.6 % (21.0-51.0); %Monocytes 10.6 % (0.0-10.0); Hemoglobin 6.9 g/dL (12.0-16.0); Mean Corpuscular HGB CONC 32.1 g/dL (32.0-36.0); Mean Corpuscular Hemoglobin 30.1 pg (27.0-31.0); Mean Corpuscular Volume 93.9 fl (78.0-98.0); Mean Platelet Volume 11.6 fL (7.4-10.4); RBC Distribution Width 16.1 % (11.5-14.5); Red Blood Cell (RBC) Count 2.29 mill/uL (4.20-5.40); White Blood Cell (WBC) Count 7.6 10x3/uL (4.8-10.8)
[2023-03-30 11:21] LABS: Platelet Count 68 10x3/uL (130-400)
[2023-03-30] MEDS ORDERED: Albumin 25% 25 GM/100 ML BOT IVPB SCH (11:30)
[2023-03-30 11:31] LABS: INR-International Normal Ratio 1.4; Prothrombin Time 17.9 sec (12.0-14.7)
[2023-03-30 12:02] LABS: ALT (SGPT) 31 U/L (8-55); AST (SGOT) 35 U/L (5-34); Albumin 3.4 g/dL (3.5-5.0); Alkaline Phosphatase 78 U/L (40-110); Anion Gap 15 mmol/L (10-20); BUN (Urea Nitrogen) 85 mg/dL (9.8-20.1); Bilirubin, Total 0.9 mg/dL (0.2-1.2); Calc. Creatinine Clearance 0 mL/min (70-130); Calcium 8.4 mg/dL (7.8-10.44); Carbon Dioxide 12 mmol/L (22-29); Chloride 103 mmol/L (98-107); Estimated GFR 24; Globulin 2.2 g/dL (2.4-3.5); Glucose 213 mg/dL (70-105); Magnesium 2.4 mg/dL (1.6-2.6); Potassium 4.7 mmol/L (3.5-5.1); Protein, Total 5.6 g/dL (6.0-8.3); Sodium 125 mmol/L (136-145)
[2023-03-30 14:13] VITALS: BP 135/55
[2023-03-30 14:32] LABS: BF Color Yellow; Body Fluid Source Ascites Body Fluid; Clarity Hazy (Clear); Tube # EDTA
[2023-03-30 14:45] LABS: BF WBC/Nonhematics Ct.-Manual 32 /cu.mm
[2023-03-30 14:50] LABS: BF RBC Count - Manual 2 /cu.mm
[2023-03-30 15:10] LABS: Cell Count Non Hematic 88 %; Lymphocytes 12 %
== END 2023-03-30 13:00 | disposition short-term general hospital (02) ==
LOC: ULT 10:24
PROVIDERS: ATTEND Internal Medicine Gastroenterology
PROC: 0W9G30Z Drainage of Peritoneal Cavity with Drainage Device, Percutaneous Approach (ICD-10-PCS; principal; 2023-03-30)
DX: K74.60 Unspecified cirrhosis of liver (principal); R18.8 Other ascites
CPT/HCPCS: 49083; 80053; 82042; 83735; 84157; 85025; 85060; 85610; 87070; 87205; 89051; J1642; P9047

== ENCOUNTER 2023-03-30 13:02 | Inpatient (IN) | payer OTHER ==
[2023-03-30 14:52] LABS: #Eosinphils 0.4 thou/uL (0.0-0.7); #Monocytes 0.8 thou/uL (0.11-0.59); #Neutrophils 4.1 thou/uL (1.40-6.50); %Basophils 0.7 % (0.0-1.0); %Lymphocytes 6.5 % (21.0-51.0); %Monocytes 13.5 % (0.0-10.0); %Neutrophils 71.8 % (42.0-75.0); Critical Call w/ Read Back Y; Hemoglobin 6.6 g/dL (12.0-16.0); Mean Corpuscular HGB CONC 32.5 g/dL (32.0-36.0); Mean Corpuscular Volume 95.3 fl (78.0-98.0); Mean Platelet Volume 12.2 fL (7.4-10.4); Platelet Count 53 10x3/uL (130-400); RBC Distribution Width 16.1 % (11.5-14.5); Red Blood Cell (RBC) Count 2.13 mill/uL (4.20-5.40); White Blood Cell (WBC) Count 5.7 10x3/uL (4.8-10.8)
[2023-03-30 15:03] LABS: INR-International Normal Ratio 1.5; PTT 37.4 sec (22.9-36.1); Prothrombin Time 18.5 sec (12.0-14.7)
[2023-03-30 15:30] LABS: ALT (SGPT) 26 U/L (8-55); AST (SGOT) 32 U/L (5-34); Albumin 4.1 g/dL (3.5-5.0); Alkaline Phosphatase 69 U/L (40-110); Anion Gap 17 mmol/L (10-20); BUN (Urea Nitrogen) 84 mg/dL (9.8-20.1); Bilirubin, Total 0.9 mg/dL (0.2-1.2); Calc. Creatinine Clearance 0 mL/min (70-130); Calcium 8.6 mg/dL (7.8-10.44); Carbon Dioxide 11 mmol/L (22-29); Chloride 104 mmol/L (98-107); Estimated GFR 25; Globulin 1.9 g/dL (2.4-3.5); Glucose 142 mg/dL (70-105); Potassium 5.1 mmol/L (3.5-5.1); Sodium 127 mmol/L (136-145)
[2023-03-30] MEDS ORDERED: Dextrose 5% in Water 1,000 ML IV PRN (17:14)
[2023-03-30] MEDS ORDERED: Dextrose 50% Abboject 50 ML SYRINGE SLOW IVP PRN (17:14)
[2023-03-30] MEDS ORDERED: Glucagon 1 MG/ML KIT IM PRN (17:14)
[2023-03-30] MEDS ORDERED: Ondansetron ODT 4 MG TAB PO PRN (17:22)
[2023-03-30] MEDS ORDERED: Albuterol 200 PUFF (6.7GM INHALER) INH PRN (17:37)
[2023-03-30] MEDS ORDERED: Melatonin 3 MG TAB PO PRN (17:40)
[2023-03-30] MEDS ORDERED: Pantoprazole 80 MG in Sodium Chloride 0.9% 100 ML IVPB SCH (18:30)
[2023-03-30] MEDS ORDERED: Lactated Ringer's 1,000 ML IV SCH (18:45)
[2023-03-30] MEDS ORDERED: Pantoprazole 40 MG VIAL IVP SCH (18:45)
[2023-03-30] MEDS: Sodium Chloride 0.9% 1,000 ML IV SCH (20:29)
[2023-03-30 20:32] VITALS: BMI 27.0
[2023-03-30] MEDS ORDERED: Pantoprazole 40 MG VIAL ONE (20:40)
[2023-03-30] MEDS ORDERED: cefTRIAXone (ROCEPHIN) 1 GM VIAL ONE (20:54)
[2023-03-30] MEDS: cefTRIAXone\\ROCEPHIN 1 GM in Sodium Chloride 0.9% 100 ML IVPB SCH (21:06)
[2023-03-30 22:13] LABS: Hemoglobin 8.1 g/dL (12.0-16.0)
[2023-03-30] MEDS: Midodrine HCl 5 MG TAB PO SCH (22:30)
[2023-03-30] MEDS: Rifaximin 200 MG TAB PO SCH (22:30)
[2023-03-30] MEDS: busPIRone HCl 10 MG TAB PO SCH (22:31)
[2023-03-30] MEDS: Ferrous Sulfate 325 MG TAB PO SCH (22:31)
[2023-03-30] MEDS: Cholecalciferol 1,000 UNITS (25 MCG) TAB PO SCH (22:35)
[2023-03-30] MEDS ORDERED: traMADol HCl 50 MG TAB ONE (22:51)
[2023-03-30] MEDS: traMADol HCl 50 MG TAB PO PRN (22:53)
[2023-03-30] MEDS ORDERED: Cholecalciferol 1,000 UNITS (25 MCG) TAB ONE (22:59)
[2023-03-31] MEDS: Loratadine 10 MG TAB PO SCH ×2 (01:30→20:15)
[2023-03-31] MEDS: Sodium Chloride 0.9% 1,000 ML IV SCH ×4 (05:36→23:17)
[2023-03-31 06:38] LABS: #Basophils 0.1 thou/uL (0.0-0.2); #Eosinphils 0.6 thou/uL (0.0-0.7); #Monocytes 0.7 thou/uL (0.11-0.59); #Neutrophils 3.4 thou/uL (1.40-6.50); %Eosinophils 11.6 % (0.0-10.0); %Lymphocytes 7.3 % (21.0-51.0); %Monocytes 13.1 % (0.0-10.0); %Neutrophils 66.2 % (42.0-75.0); Hemoglobin 7.9 g/dL (12.0-16.0); Mean Corpuscular HGB CONC 32.8 g/dL (32.0-36.0); Mean Corpuscular Hemoglobin 29.8 pg (27.0-31.0); Mean Platelet Volume 12.1 fL (7.4-10.4); RBC Distribution Width 17.1 % (11.5-14.5); Red Blood Cell (RBC) Count 2.65 mill/uL (4.20-5.40); White Blood Cell (WBC) Count 5.2 10x3/uL (4.8-10.8)
[2023-03-31 06:40] LABS: Platelet Count 46 10x3/uL (130-400)
[2023-03-31 06:41] LABS: Mean Corpuscular Volume 90.9 fl (78.0-98.0)
[2023-03-31 07:38] LABS: ALT (SGPT) 23 U/L (8-55); AST (SGOT) 33 U/L (5-34); Albumin 3.5 g/dL (3.5-5.0); Alkaline Phosphatase 65 U/L (40-110); Anion Gap 11 mmol/L (10-20); BUN (Urea Nitrogen) 77 mg/dL (9.8-20.1); Bilirubin, Total 3.2 mg/dL (0.2-1.2); Calc. Creatinine Clearance 38 mL/min (70-130); Calcium 8.2 mg/dL (7.8-10.44); Carbon Dioxide 15 mmol/L (22-29); Chloride 107 mmol/L (98-107); Estimated GFR 29; Globulin 1.8 g/dL (2.4-3.5); Glucose 115 mg/dL (70-105); Potassium 4.7 mmol/L (3.5-5.1); Protein, Total 5.3 g/dL (6.0-8.3); Sodium 128 mmol/L (136-145)
[2023-03-31] MEDS ORDERED: Pantoprazole 80 MG, Admixture Fee 1 EACH in Sodium Chloride 0.9% 100 ML IVPB SCH (08:00)
[2023-03-31] MEDS ORDERED: PROPOFOL 200 MG/20 ML VIAL ONE (10:50)
[2023-03-31] MEDS ORDERED: Succinylcholine 200 MG/10 ml SYRINGE FS ONE (10:50)
[2023-03-31] MEDS ORDERED: Lidocaine 1% PF 5 ML VIAL ONE (10:50)
[2023-03-31 10:51] LABS: Creatinine, Urine 63.74 mg/dL (47-110); Sodium, Urine Less than 20 mmol/L (Not Available)
[2023-03-31] MEDS: Cholecalciferol 1,000 UNITS (25 MCG) TAB PO SCH ×2 (12:20→20:15)
[2023-03-31] MEDS: Atorvastatin Calcium 10 MG TAB PO SCH (12:21)
[2023-03-31] MEDS: Magnesium Oxide 250 MG TAB PO SCH (12:21)
[2023-03-31] MEDS: busPIRone HCl 10 MG TAB PO SCH ×2 (12:21→20:15)
[2023-03-31] MEDS: Folic Acid 1 MG TAB PO SCH (12:21)
[2023-03-31] MEDS: Cyanocobalamin (Vitamin B-12) 1,000 MCG TAB PO SCH (12:21)
[2023-03-31] MEDS: Ferrous Sulfate 325 MG TAB PO SCH ×3 (12:21→20:16)
[2023-03-31] MEDS: Midodrine HCl 5 MG TAB PO SCH ×3 (12:21→20:17)
[2023-03-31] MEDS: Rifaximin 200 MG TAB PO SCH ×2 (12:21→20:13)
[2023-03-31] MEDS: Bupropion 150 MG XL TAB PO SCH (12:22)
[2023-03-31] MEDS: Insulin Glargine 30 UNITS/0.3 ML VIAL SC SCH (12:22)
[2023-03-31] MEDS: Fluticasone Propionate Nasal Spray 16 gm Bottle NASAL SCH (12:25)
[2023-03-31] MEDS: Cyclobenzaprine 10 MG TAB PO PRN ×2 (12:31→20:14)
[2023-03-31] MEDS: traMADol HCl 50 MG TAB PO PRN ×2 (12:31→20:14)
[2023-03-31] MEDS ORDERED: Sodium Chloride 0.9% 1,000 ML IV SCH (15:51)
[2023-03-31] MEDS: HumaLOG 300 UNITS/3 ML VIAL SC PRN ×2 (16:38→20:19)
[2023-03-31] MEDS: cefTRIAXone\\ROCEPHIN 1 GM in Sodium Chloride 0.9% 100 ML IVPB SCH (20:12)
[2023-04-01] MEDS: HumaLOG 300 UNITS/3 ML VIAL SC PRN ×3 (05:26→20:45)
[2023-04-01 07:39] LABS: #Basophils 0.1 thou/uL (0.0-0.2); #Eosinphils 0.5 thou/uL (0.0-0.7); #Monocytes 0.9 thou/uL (0.11-0.59); #Neutrophils 5.2 thou/uL (1.40-6.50); %Basophils 0.8 % (0.0-1.0); %Eosinophils 6.9 % (0.0-10.0); %Lymphocytes 5.4 % (21.0-51.0); %Monocytes 12.7 % (0.0-10.0); %Neutrophils 73.6 % (42.0-75.0); Hemoglobin 7.6 g/dL (12.0-16.0); Mean Corpuscular HGB CONC 32.2 g/dL (32.0-36.0); Mean Corpuscular Hemoglobin 30.4 pg (27.0-31.0); Mean Corpuscular Volume 94.4 fl (78.0-98.0); Mean Platelet Volume 11.9 fL (7.4-10.4); RBC Distribution Width 17.1 % (11.5-14.5); White Blood Cell (WBC) Count 7.1 10x3/uL (4.8-10.8)
[2023-04-01 07:43] LABS: Platelet Count 45 10x3/uL (130-400)
[2023-04-01 08:10] LABS: ALT (SGPT) 25 U/L (8-55); AST (SGOT) 32 U/L (5-34); Albumin 3.2 g/dL (3.5-5.0); Alkaline Phosphatase 65 U/L (40-110); Anion Gap 14 mmol/L (10-20); BUN (Urea Nitrogen) 66 mg/dL (9.8-20.1); Bilirubin, Total 1.3 mg/dL (0.2-1.2); Calc. Creatinine Clearance 42 mL/min (70-130); Calcium 7.7 mg/dL (7.8-10.44); Carbon Dioxide 11 mmol/L (22-29); Chloride 112 mmol/L (98-107); Estimated GFR 32; Globulin 1.9 g/dL (2.4-3.5); Glucose 210 mg/dL (70-105); Potassium 4.2 mmol/L (3.5-5.1); Protein, Total 5.1 g/dL (6.0-8.3); Sodium 133 mmol/L (136-145)
[2023-04-01] MEDS: Bupropion 150 MG XL TAB PO SCH (08:47)
[2023-04-01] MEDS: Insulin Glargine 30 UNITS/0.3 ML VIAL SC SCH (08:47)
[2023-04-01] MEDS: Magnesium Oxide 250 MG TAB PO SCH (08:48)
[2023-04-01] MEDS: Cyclobenzaprine 10 MG TAB PO PRN ×3 (08:48→20:37)
[2023-04-01] MEDS: Folic Acid 1 MG TAB PO SCH (08:48)
[2023-04-01] MEDS: Rifaximin 200 MG TAB PO SCH ×2 (08:48→20:37)
[2023-04-01] MEDS: traMADol HCl 50 MG TAB PO PRN ×3 (08:48→20:37)
[2023-04-01] MEDS: Cholecalciferol 1,000 UNITS (25 MCG) TAB PO SCH ×2 (08:49→20:37)
[2023-04-01] MEDS: Midodrine HCl 5 MG TAB PO SCH ×3 (08:49→20:37)
[2023-04-01] MEDS: Fluticasone Propionate Nasal Spray 16 gm Bottle NASAL SCH (08:49)
[2023-04-01] MEDS: Cyanocobalamin (Vitamin B-12) 1,000 MCG TAB PO SCH (08:49)
[2023-04-01] MEDS: busPIRone HCl 10 MG TAB PO SCH ×2 (08:49→20:37)
[2023-04-01] MEDS: Atorvastatin Calcium 10 MG TAB PO SCH (08:49)
[2023-04-01] MEDS: Ferrous Sulfate 325 MG TAB PO SCH ×3 (08:49→20:36)
[2023-04-01] MEDS: Sodium Chloride 0.9% 1,000 ML IV SCH (11:41)
[2023-04-01] MEDS ORDERED: Lidocaine 4% Patch TD PRN (15:17)
[2023-04-01] MEDS: cefTRIAXone\\ROCEPHIN 1 GM in Sodium Chloride 0.9% 100 ML IVPB SCH (20:34)
[2023-04-01] MEDS: Loratadine 10 MG TAB PO SCH (20:37)
[2023-04-01] MEDS ORDERED: cefTRIAXone\\ROCEPHIN 1 GM in Sodium Chloride 0.9% 100 ML IVPB SCH (21:00)
[2023-04-02] MEDS: Sodium Chloride 0.9% 1,000 ML IV SCH ×2 (00:06→09:32)
[2023-04-02 07:07] LABS: #Basophils 0.1 thou/uL (0.0-0.2); #Eosinphils 0.8 thou/uL (0.0-0.7); #Monocytes 0.9 thou/uL (0.11-0.59); #Neutrophils 5.5 thou/uL (1.40-6.50); %Basophils 1.2 % (0.0-1.0); %Eosinophils 10.5 % (0.0-10.0); %Lymphocytes 5.8 % (21.0-51.0); %Monocytes 11.4 % (0.0-10.0); %Neutrophils 70.6 % (42.0-75.0); Hemoglobin 7.7 g/dL (12.0-16.0); Mean Corpuscular Hemoglobin 30.2 pg (27.0-31.0); Mean Corpuscular Volume 94.5 fl (78.0-98.0); Mean Platelet Volume 11.7 fL (7.4-10.4); RBC Distribution Width 17.2 % (11.5-14.5); Red Blood Cell (RBC) Count 2.55 mill/uL (4.20-5.40); White Blood Cell (WBC) Count 7.8 10x3/uL (4.8-10.8)
[2023-04-02 07:10] LABS: Platelet Count 51 10x3/uL (130-400)
[2023-04-02 07:32] LABS: ALT (SGPT) 24 U/L (8-55); AST (SGOT) 29 U/L (5-34); Albumin 3.3 g/dL (3.5-5.0); Alkaline Phosphatase 68 U/L (40-110); Anion Gap 12 mmol/L (10-20); BUN (Urea Nitrogen) 62 mg/dL (9.8-20.1); Bilirubin, Total 0.9 mg/dL (0.2-1.2); Calc. Creatinine Clearance 41 mL/min (70-130); Carbon Dioxide 12 mmol/L (22-29); Chloride 113 mmol/L (98-107); Estimated GFR 32; Globulin 1.9 g/dL (2.4-3.5); Glucose 138 mg/dL (70-105); Potassium 4.6 mmol/L (3.5-5.1); Protein, Total 5.2 g/dL (6.0-8.3); Sodium 132 mmol/L (136-145)
[2023-04-02 07:49] VITALS: BP 132/72; TEMP 98.1
[2023-04-02] MEDS: Cholecalciferol 1,000 UNITS (25 MCG) TAB PO SCH (08:35)
[2023-04-02] MEDS: Insulin Glargine 30 UNITS/0.3 ML VIAL SC SCH (08:35)
[2023-04-02] MEDS: Magnesium Oxide 250 MG TAB PO SCH (08:35)
[2023-04-02] MEDS: Bupropion 150 MG XL TAB PO SCH (08:35)
[2023-04-02] MEDS: Cyclobenzaprine 10 MG TAB PO PRN (08:35)
[2023-04-02] MEDS: Atorvastatin Calcium 10 MG TAB PO SCH (08:36)
[2023-04-02] MEDS: Folic Acid 1 MG TAB PO SCH (08:36)
[2023-04-02] MEDS: Midodrine HCl 5 MG TAB PO SCH (08:36)
[2023-04-02] MEDS: Fluticasone Propionate Nasal Spray 16 gm Bottle NASAL SCH (08:36)
[2023-04-02] MEDS: Ferrous Sulfate 325 MG TAB PO SCH (08:36)
[2023-04-02] MEDS: Cyanocobalamin (Vitamin B-12) 1,000 MCG TAB PO SCH (08:36)
[2023-04-02] MEDS: busPIRone HCl 10 MG TAB PO SCH (08:36)
[2023-04-02] MEDS: Rifaximin 200 MG TAB PO SCH (08:46)
[2023-04-02] MEDS ORDERED: Lidocaine 4% Patch TD SCH (09:00)
[2023-04-02] MEDS: traMADol HCl 50 MG TAB PO PRN (10:27)
[2023-04-02] MEDS ORDERED: Transdermal Patch Removal TOP SCH (21:00)
== END 2023-04-02 11:04 | disposition home or self-care (01) | DRG 432 ==
LOC: ERS 13:02 → ERHOLD 16:42 → T4-A 23:31
PROVIDERS: ADMIT Family Medicine; ATTEND Family Medicine
PROC: 30233N0 Transfusion of Autologous Red Blood Cells into Peripheral Vein, Percutaneous Approach (ICD-10-PCS; 2023-03-30)
PROC: 0W3P8ZZ Control Bleeding in Gastrointestinal Tract, Via Natural or Artificial Opening Endoscopic (ICD-10-PCS; principal; 2023-03-31)
DX: K74.60 Unspecified cirrhosis of liver (principal); I85.11 Secondary esophageal varices with bleeding; K31.811 Angiodysplasia of stomach and duodenum with bleeding; E87.1 Hypo-osmolality and hyponatremia; R18.8 Other ascites; N17.9 Acute kidney failure, unspecified; N18.31 Chronic kidney disease, stage 3a; E11.22 Type 2 diabetes mellitus with diabetic chronic kidney disease; D63.1 Anemia in chronic kidney disease; D69.6 Thrombocytopenia, unspecified; K31.89 Other diseases of stomach and duodenum; K31.819 Angiodysplasia of stomach and duodenum without bleeding; I12.9 Hypertensive chronic kidney disease with stage 1 through stage 4 chronic kidney disease, or unspecified chronic kidney disease; N18.32 Chronic kidney disease, stage 3b; K76.82 Hepatic encephalopathy; J45.909 Unspecified asthma, uncomplicated; K76.0 Fatty (change of) liver, not elsewhere classified; Z90.49 Acquired absence of other specified parts of digestive tract; Z82.49 Family history of ischemic heart disease and other diseases of the circulatory system; Z88.8 Allergy status to other drugs, medicaments and biological substances; Z88.2 Allergy status to sulfonamides; Z88.5 Allergy status to narcotic agent; Z98.890 Other specified postprocedural states; Z88.6 Allergy status to analgesic agent; Z91.048 Other nonmedicinal substance allergy status; Z79.899 Other long term (current) drug therapy; Z83.3 Family history of diabetes mellitus; Z87.891 Personal history of nicotine dependence; Z90.89 Acquired absence of other organs
CPT/HCPCS: 36415; 36416; 36430; 49083; 80053; 82042; 82140; 82570; 83735; 83930; 83935; 84157; 84300; 85025; 85060; 85610; 85730; 86850; 86900; 86901; 87070; 87205; 89051; 93005; C9113; J0696; J1642; J1815; J2704; J3490; J7050; P9016; P9047

== ENCOUNTER 2023-04-06 10:00 | Day surgery (SDC) | payer OTHER ==
[2023-04-06] MEDS ORDERED: Lidocaine 1% PF 5 ML VIAL ONE (10:32)
[2023-04-06] MEDS ORDERED: Albumin 25% 200 ML ONE (10:32)
[2023-04-06] MEDS ORDERED: Sodium Bicarbonate 2.5 MEQ/5 ML VIAL ONE (10:32)
[2023-04-06 12:53] VITALS: BMI 24.2
[2023-04-06 13:01] VITALS: BP 129/79; TEMP 98.6
[2023-04-06 14:05] LABS: RBC Count-Automated (BF) 11 /cu.mm; WBC/Nucleated-Auto (BF) 53 /cu.mm
[2023-04-06 14:24] LABS: BF Color Colorless; Body Fluid Source Ascites Body Fluid; Clarity Hazy (Clear); Tube # EDTA
[2023-04-06 14:27] LABS: BF Segmented Neutrophils 3 %; Cell Count Non Hematic 71 %; Eosinophils 2 %; Lymphocytes 24 %
== END 2023-04-06 12:30 | disposition home or self-care (01) ==
LOC: ULT 10:00
PROVIDERS: ATTEND Internal Medicine Gastroenterology
PROC: 0W9G30Z Drainage of Peritoneal Cavity with Drainage Device, Percutaneous Approach (ICD-10-PCS; principal; 2023-04-06)
DX: R18.8 Other ascites (principal)
CPT/HCPCS: 49083; 82042; 84157; 85060; 87070; 87205; 88112; 89051; P9047

== ENCOUNTER → 2023-04-13 | Day surgery (SDC) | payer OTHER ==
[~2023-04-13] MED LIST changes: +Albumin 25% 25 GM/100 ML BOT IVPB SCH
[2023-04-13 12:34] VITALS: BP 116/68
[2023-04-13 12:54] LABS: RBC Count-Automated (BF) 21 /cu.mm; WBC/Nucleated-Auto (BF) 32 /cu.mm
[2023-04-13 12:58] LABS: #Basophils 0.1 thou/uL (0.0-0.2); #Eosinphils 1.6 thou/uL (0.0-0.7); #Monocytes 0.9 thou/uL (0.11-0.59); #Neutrophils 4.5 thou/uL (1.40-6.50); %Basophils 1.7 % (0.0-1.0); %Eosinophils 21.3 % (0.0-10.0); %Lymphocytes 7.1 % (21.0-51.0); %Monocytes 11.2 % (0.0-10.0); %Neutrophils 58.2 % (42.0-75.0); Hematocrit 24.5 % (36.0-47.0); Hemoglobin 7.8 g/dL (12.0-16.0); Mean Corpuscular HGB CONC 31.8 g/dL (32.0-36.0); Mean Corpuscular Hemoglobin 30.6 pg (27.0-31.0); Mean Corpuscular Volume 96.1 fl (78.0-98.0); Mean Platelet Volume 10.6 fL (7.4-10.4); RBC Distribution Width 16.1 % (11.5-14.5); Red Blood Cell (RBC) Count 2.55 mill/uL (4.20-5.40); White Blood Cell (WBC) Count 7.7 10x3/uL (4.8-10.8)
[2023-04-13 12:59] LABS: Platelet Count 73 10x3/uL (130-400)
[2023-04-13 13:17] LABS: INR-International Normal Ratio 1.4
[2023-04-13 13:23] LABS: BF Color Colorless; Body Fluid Source Ascites Body Fluid; Clarity Hazy (Clear); Tube # EDTA
[2023-04-13 13:24] LABS: BF Segmented Neutrophils 1 %; Cell Count Non Hematic 68 %; Eosinophils 3 %; Lymphocytes 26 %
[2023-04-13 23:12] LABS: ALT (SGPT) 26 U/L (8-55); AST (SGOT) 30 U/L (5-34); Albumin 3.3 g/dL (3.5-5.0); Alkaline Phosphatase 92 U/L (40-110); Anion Gap 15 mmol/L (10-20); BUN (Urea Nitrogen) 48 mg/dL (9.8-20.1); Bilirubin, Total 0.7 mg/dL (0.2-1.2); Calc. Creatinine Clearance 41 mL/min (70-130); Calcium 8.3 mg/dL (7.8-10.44); Carbon Dioxide 13 mmol/L (22-29); Chloride 110 mmol/L (98-107); Estimated GFR 31; Glucose 142 mg/dL (70-105); Magnesium 1.8 mg/dL (1.6-2.6); Potassium 5.2 mmol/L (3.5-5.1); Protein, Total 5.3 g/dL (6.0-8.3); Sodium 133 mmol/L (136-145)
== END ==
LOC: ULT 10:07
PROVIDERS: ATTEND Internal Medicine Gastroenterology
PROC: 0W9G30Z Drainage of Peritoneal Cavity with Drainage Device, Percutaneous Approach (ICD-10-PCS; principal; 2023-04-13)
DX: R18.8 Other ascites (principal)
CPT/HCPCS: 49083; 80053; 82042; 83735; 84157; 85025; 85060; 85610; 85730; 87070; 87205; 89051; J1642; P9047

== ENCOUNTER → 2023-04-20 | Day surgery (SDC) | payer OTHER ==
[~2023-04-20] MED LIST changes: -Albumin 25% 25 GM/100 ML BOT IVPB SCH
[2023-04-20 13:53] LABS: RBC Count-Automated (BF) 128 /cu.mm; WBC/Nucleated-Auto (BF) 64 /cu.mm
[2023-04-20 14:02] LABS: Body Fluid Source Ascites Body Fluid; Tube # EDTA
[2023-04-20 14:03] LABS: BF Color Colorless; Clarity Clear (Clear)
[2023-04-20 14:37] LABS: Cell Count Non Hematic 81 %; Eosinophils 5 %; Lymphocytes 14 %
== END ==
LOC: ULT 10:02
PROVIDERS: ATTEND Internal Medicine Gastroenterology
PROC: 0W9G3ZZ Drainage of Peritoneal Cavity, Percutaneous Approach (ICD-10-PCS; principal; 2023-04-20)
DX: R18.8 Other ascites (principal); K74.60 Unspecified cirrhosis of liver
CPT/HCPCS: 49083; 84157; 85060; 87070; 87205; 89051; J1642; P9047

== ENCOUNTER 2023-04-27 10:12 | Day surgery (SDC) | payer OTHER ==
[2023-04-27] MEDS ORDERED: Albumin 25% 200 ML ONE (10:55)
[2023-04-27] MEDS ORDERED: Lidocaine 1% PF 5 ML VIAL ONE (10:55)
[2023-04-27] MEDS ORDERED: Sodium Bicarbonate 2.5 MEQ/5 ML VIAL ONE (10:55)
[2023-04-27] MEDS ORDERED: Albumin 25% 25 GM/100 ML BOT IVPB SCH (11:15)
[2023-04-27 12:10] LABS: #Eosinphils 5.5 thou/uL (0.0-0.7); #Monocytes 0.9 thou/uL (0.11-0.59); %Basophils 1.6 % (0.0-1.0); %Eosinophils 44.7 % (0.0-10.0); %Lymphocytes 5.9 % (21.0-51.0); %Monocytes 7.2 % (0.0-10.0); %Neutrophils 40.4 % (42.0-75.0); Hematocrit 26.9 % (36.0-47.0); Hemoglobin 8.7 g/dL (12.0-16.0); Manual Diff?? YES; Mean Corpuscular HGB CONC 32.3 g/dL (32.0-36.0); Mean Corpuscular Volume 92.8 fl (78.0-98.0); Mean Platelet Volume 11.5 fL (7.4-10.4); RBC Distribution Width 14.8 % (11.5-14.5); White Blood Cell (WBC) Count 12.4 10x3/uL (4.8-10.8)
[2023-04-27 12:11] LABS: #Basophils 0.2 thou/uL (0.0-0.2)
[2023-04-27 12:16] LABS: Platelet Count 80 10x3/uL (130-400)
[2023-04-27 12:33] LABS: INR-International Normal Ratio 1.5; Prothrombin Time 19.1 sec (12.0-14.7)
[2023-04-27 12:45] LABS: WBC/Nucleated-Auto (BF) 21 /cu.mm
[2023-04-27 12:51] LABS: Band 4 % (5-11); Burr Cells SLIGHT = 2-5 cells HPF (0-1); CellaVision Operator ID LAB.KB; Eosinophils 35 % (0-10); Lymphocytes 6 % (21-51); Monocytes 3 % (0-10); Neutrophil 52 % (42-75); Ovalocytes SLIGHT = 2-5 cells HPF (0-1); Platelet Adequacy Comment Platelets Decreased; Polychromasia SLIGHT = 2-3 cells HPF (0-2); Total Cell Count 100
[2023-04-27 13:28] VITALS: BP 112/58
[2023-04-27 13:34] LABS: ALT (SGPT) 20 U/L (8-55); AST (SGOT) 28 U/L (5-34); Albumin 3.5 g/dL (3.5-5.0); Alkaline Phosphatase 142 U/L (40-110); Anion Gap 12 mmol/L (10-20); BUN (Urea Nitrogen) 48 mg/dL (9.8-20.1); Bilirubin, Total 1.4 mg/dL (0.2-1.2); Calc. Creatinine Clearance 36 mL/min (70-130); Calcium 8.6 mg/dL (7.8-10.44); Carbon Dioxide 19 mmol/L (22-29); Chloride 108 mmol/L (98-107); Estimated GFR 26; Globulin 2.4 g/dL (2.4-3.5); Glucose 213 mg/dL (70-105); Magnesium 2.1 mg/dL (1.6-2.6); Protein, Total 5.9 g/dL (6.0-8.3); Sodium 134 mmol/L (136-145)
[2023-04-27 14:59] LABS: BF Color Colorless; Body Fluid Source Ascites Body Fluid; Clarity Clear (Clear); RBC Count-Automated (BF) 2 /cu.mm; Tube # EDTA
[2023-04-27 15:03] LABS: Cell Count Non Hematic 76 %; Eosinophils 7 %; Lymphocytes 17 %
== END 2023-04-27 12:30 | disposition home or self-care (01) ==
LOC: ULT 10:12
PROVIDERS: ATTEND Internal Medicine Gastroenterology
PROC: 0W9G3ZZ Drainage of Peritoneal Cavity, Percutaneous Approach (ICD-10-PCS; principal; 2023-04-27)
DX: R18.8 Other ascites (principal); K72.90 Hepatic failure, unspecified without coma; K65.2 Spontaneous bacterial peritonitis; K74.60 Unspecified cirrhosis of liver; K31.819 Angiodysplasia of stomach and duodenum without bleeding; Z88.0 Allergy status to penicillin; Z88.2 Allergy status to sulfonamides; Z88.6 Allergy status to analgesic agent; Z88.8 Allergy status to other drugs, medicaments and biological substances
CPT/HCPCS: 49083; 80053; 82042; 83735; 84157; 85025; 85060; 85610; 87070; 87205; 89051; J1642; P9047

== ENCOUNTER 2023-05-04 09:58 | Day surgery (SDC) | payer OTHER ==
[2023-05-04] MEDS ORDERED: Lidocaine 1% PF 5 ML VIAL ONE (10:05)
[2023-05-04] MEDS ORDERED: Albumin 25% 200 ML ONE (10:05)
[2023-05-04] MEDS ORDERED: Sodium Bicarbonate 2.5 MEQ/5 ML VIAL ONE (10:05)
[2023-05-04 14:31] LABS: RBC Count-Automated (BF) 175 /cu.mm; WBC/Nucleated-Auto (BF) 88 /cu.mm
[2023-05-04 14:41] LABS: BF Color Colorless; Body Fluid Source Ascites Body Fluid; Clarity Hazy (Clear); Tube # EDTA
[2023-05-04 14:53] LABS: BF Segmented Neutrophils 3 %; Cell Count Non Hematic 56 %; Eosinophils 11 %; Lymphocytes 29 %
== END 2023-05-04 11:50 | disposition home or self-care (01) ==
LOC: ULT 09:58
PROVIDERS: ATTEND Internal Medicine Gastroenterology
PROC: 0W9G3ZZ Drainage of Peritoneal Cavity, Percutaneous Approach (ICD-10-PCS; principal; 2023-05-04)
DX: K74.60 Unspecified cirrhosis of liver (principal); R18.8 Other ascites
CPT/HCPCS: 49083; 82042; 84157; 85060; 87070; 87205; 89051; J1642; P9047

== ENCOUNTER 2023-05-11 11:11 | Inpatient (IN) | payer OTHER ==
[2023-05-11 12:14] LABS: Bacteria/HPF None Seen HPF (None Seen); Bilirubin Negative (Negative); Blood, Urine Negative (Negative); CAUTI Indications for Culture Alt mental st,lethar; Clarity Clear (Clear); Glucose, Urine (Dipstick) Normal (Negative); Ketone, Urine Negative (Negative); Leukocyte Negative Leu/uL (Negative); Nitrite Negative (Negative); Protein, Urine (Dipstick) Negative (Neg-Trace); RBC/HPF 0-3 HPF (0-3); Specific Gravity, Urine 1.016 (1.002-1.036); Squamous Epithelial 0-3 HPF (0-3); Urobilinogen Normal mg/dL (Less than 2); WBC/HPF 0-3 HPF (0-3); pH, Urine 5.5 (5.0-9.0)
[2023-05-11 12:16] LABS: Hematocrit 27.3 % (36.0-47.0); Hemoglobin 8.8 g/dL (12.0-16.0); Manual Diff?? YES; Mean Corpuscular HGB CONC 32.2 g/dL (32.0-36.0); Mean Corpuscular Hemoglobin 28.8 pg (27.0-31.0); Mean Corpuscular Volume 89.2 fl (78.0-98.0); RBC Distribution Width 14.3 % (11.5-14.5); Red Blood Cell (RBC) Count 3.06 mill/uL (4.20-5.40); White Blood Cell (WBC) Count 9.8 10x3/uL (4.8-10.8)
[2023-05-11 12:17] LABS: Delete Auto Diff?? YES; Platelet Count 66 10x3/uL (130-400)
[2023-05-11 12:24] LABS: Urine Culture Reflex No No
[2023-05-11 12:37] LABS: CellaVision Operator ID LAB.GE; Eosinophils 48 % (0-10); Lymphocytes 7 % (21-51); Monocytes 3 % (0-10); Neutrophil 39 % (42-75); Platelet Adequacy Comment Platelets Decreased; Polychromasia SLIGHT = 2-3 cells HPF (0-2); Schistocytes SLIGHT = 2-5 cells HPF (0-1); Total Cell Count 104
[2023-05-11 12:38] LABS: ALT (SGPT) 21 U/L (8-55); AST (SGOT) 27 U/L (5-34); Albumin 3.4 g/dL (3.5-5.0); Alkaline Phosphatase 114 U/L (40-110); Anion Gap 12 mmol/L (10-20); BUN (Urea Nitrogen) 54 mg/dL (9.8-20.1); Calc. Creatinine Clearance 0 mL/min (70-130); Calcium 8.7 mg/dL (7.8-10.44); Carbon Dioxide 20 mmol/L (22-29); Chloride 108 mmol/L (98-107); Estimated GFR 24; Globulin 2.5 g/dL (2.4-3.5); Glucose 271 mg/dL (70-105); Potassium 4.3 mmol/L (3.5-5.1); Protein, Total 5.9 g/dL (6.0-8.3); Sodium 136 mmol/L (136-145)
[2023-05-11 12:39] LABS: Acetaminophen Less than 10 mcg/mL (10.0-30.0); Alcohol Less than 10.0 mg/dL (Less than 10); Salicylate Less than 8.0 mg/dL (15.0-30.0)
[2023-05-11] MEDS ORDERED: Dextrose 5% in Water 1,000 ML IV PRN (13:57)
[2023-05-11] MEDS ORDERED: Glucagon 1 MG/ML KIT IM PRN (13:57)
[2023-05-11] MEDS ORDERED: Dextrose 50% Abboject 50 ML SYRINGE SLOW IVP PRN (13:57)
[2023-05-11 15:30] LABS: INR-International Normal Ratio 1.3; Prothrombin Time 17.1 sec (12.0-14.7)
[2023-05-11] MEDS ORDERED: Melatonin 3 MG TAB PO PRN (15:31)
[2023-05-11] MEDS ORDERED: Albuterol 200 PUFF (6.7GM INHALER) INH PRN (15:32)
[2023-05-11 15:39] LABS: Magnesium 2.2 mg/dL (1.6-2.6); Phosphorus 3.3 mg/dL (2.3-4.7)
[2023-05-11] MEDS ORDERED: HumaLOG 300 UNITS/3 ML VIAL ONE (15:47)
[2023-05-11] MEDS: Lactated Ringer's 1,000 ML IV SCH ×2 (16:08→20:48)
[2023-05-11] MEDS: HumaLOG 300 UNITS/3 ML VIAL SC SCH (16:32)
[2023-05-11] MEDS: HumaLOG 300 UNITS/3 ML VIAL SC PRN (16:33)
[2023-05-11] MEDS: Midodrine HCl 5 MG TAB PO SCH ×2 (17:34→20:22)
[2023-05-11] MEDS: Mometasone Furoate 30 PUFF 220 MCG INH SCH (17:34)
[2023-05-11 19:40] LABS: Amphetamine Not Detected (NotDetected); Barbiturates Screen Not Detected (NotDetected); Benzodiazepine Screen Not Detected (NotDetected); Cocaine Metabolite Screen Not Detected (NotDetected); Methadone Not Detected (NotDetected); Methamphetamine Not Detected (NotDetected); Opiate Screen Not Detected (NotDetected); Oxycodone Screen Not Detected (NotDetected); Phencyclidine (PCP) Not Detected (NotDetected); THC/Cannabinoid Screen Not Detected (NotDetected); Tricyclic Screen Not Detected (NotDetected)
[2023-05-11] MEDS: Spironolactone 100 MG TAB PO SCH (20:22)
[2023-05-11] MEDS: Furosemide 40 MG TAB PO SCH (20:22)
[2023-05-11] MEDS: Ferrous Sulfate 325 MG TAB PO SCH (20:23)
[2023-05-11] MEDS: busPIRone HCl 10 MG TAB PO SCH (20:23)
[2023-05-11] MEDS: Cholecalciferol 1,000 UNITS (25 MCG) TAB PO SCH (20:23)
[2023-05-11] MEDS: Rifaximin 200 MG TAB PO SCH (20:40)
[2023-05-11] MEDS ORDERED: Rifaximin 550 MG TAB PO SCH (21:00)
[2023-05-12 03:54] LABS: Hematocrit 26.2 % (36.0-47.0); Hemoglobin 8.3 g/dL (12.0-16.0); Manual Diff?? YES; Mean Corpuscular HGB CONC 31.7 g/dL (32.0-36.0); Mean Corpuscular Hemoglobin 28.6 pg (27.0-31.0); Mean Corpuscular Volume 90.3 fl (78.0-98.0); Mean Platelet Volume 11.7 fL (7.4-10.4); RBC Distribution Width 14.3 % (11.5-14.5); White Blood Cell (WBC) Count 10.1 10x3/uL (4.8-10.8)
[2023-05-12 04:13] LABS: ALT (SGPT) 21 U/L (8-55); AST (SGOT) 28 U/L (5-34); Albumin 2.9 g/dL (3.5-5.0); Alkaline Phosphatase 101 U/L (40-110); Anion Gap 12 mmol/L (10-20); BUN (Urea Nitrogen) 52 mg/dL (9.8-20.1); Bilirubin, Total 1.2 mg/dL (0.2-1.2); Calc. Creatinine Clearance 30 mL/min (70-130); Calcium 8.6 mg/dL (7.8-10.44); Carbon Dioxide 18 mmol/L (22-29); Chloride 113 mmol/L (98-107); Estimated GFR 27; Globulin 2.4 g/dL (2.4-3.5); Glucose 150 mg/dL (70-105); Potassium 3.6 mmol/L (3.5-5.1); Protein, Total 5.3 g/dL (6.0-8.3); Sodium 139 mmol/L (136-145)
[2023-05-12 04:50] LABS: Platelet Count 51 10x3/uL (130-400)
[2023-05-12 04:51] LABS: Delete Auto Diff?? YES
[2023-05-12 05:25] LABS: Anisocytosis SLIGHT = 6-15 cells HPF (0-5); Band 6 % (5-11); CellaVision Operator ID LAB.JMM; Eosinophils 46 % (0-10); Hypochromia MODERATE=16-30 cells HPF (0-5); Lymphocytes 2 % (21-51); Macrocytosis SLIGHT = 6-15 cells HPF (0-5); Monocytes 2 % (0-10); Neutrophil 43 % (42-75); Platelet Adequacy Comment Platelets Decreased; Smudge Cells 27.3 %; Total Cell Count 99
[2023-05-12] MEDS: HumaLOG 300 UNITS/3 ML VIAL SC PRN ×3 (06:36→12:39)
[2023-05-12] MEDS: Lactated Ringer's 1,000 ML IV SCH (08:35)
[2023-05-12] MEDS: busPIRone HCl 10 MG TAB PO SCH ×2 (08:41→20:40)
[2023-05-12] MEDS: Bupropion 150 MG XL TAB PO SCH (08:42)
[2023-05-12] MEDS: Rifaximin 200 MG TAB PO SCH ×2 (08:43→20:39)
[2023-05-12] MEDS: Spironolactone 100 MG TAB PO SCH ×2 (08:43→20:40)
[2023-05-12] MEDS: Ferrous Sulfate 325 MG TAB PO SCH ×3 (08:43→20:40)
[2023-05-12] MEDS: Cyanocobalamin (Vitamin B-12) 1,000 MCG TAB PO SCH (08:44)
[2023-05-12] MEDS: Cholecalciferol 1,000 UNITS (25 MCG) TAB PO SCH ×2 (08:44→20:40)
[2023-05-12] MEDS: Atorvastatin Calcium 10 MG TAB PO SCH (08:44)
[2023-05-12] MEDS: Furosemide 40 MG TAB PO SCH ×2 (08:45→20:40)
[2023-05-12] MEDS: Folic Acid 1 MG TAB PO SCH (08:45)
[2023-05-12] MEDS: Midodrine HCl 5 MG TAB PO SCH ×3 (08:45→20:40)
[2023-05-12] MEDS: Magnesium Oxide 250 MG TAB PO SCH (08:45)
[2023-05-12] MEDS: Insulin Glargine 30 UNITS/0.3 ML VIAL SC SCH (09:06)
[2023-05-12] MEDS: HumaLOG 300 UNITS/3 ML VIAL SC SCH ×3 (09:07→18:07)
[2023-05-12] MEDS ORDERED: Ciprofloxacin 500 MG TAB PO SCH (10:00)
[2023-05-12] MEDS ORDERED: traMADol HCl 50 MG TAB PO PRN (10:51)
[2023-05-12 13:30] VITALS: BMI 22.4
[2023-05-12] MEDS ORDERED: Ondansetron ODT 4 MG TAB PO PRN (14:50)
[2023-05-12] MEDS: Mometasone Furoate 30 PUFF 220 MCG INH SCH (19:46)
[2023-05-12] MEDS ORDERED: Loratadine 10 MG TAB PO SCH (21:00)
[2023-05-13 06:58] LABS: Hematocrit 28.8 % (36.0-47.0); Hemoglobin 9.2 g/dL (12.0-16.0); Manual Diff?? YES; Mean Corpuscular HGB CONC 31.9 g/dL (32.0-36.0); Mean Corpuscular Volume 90.9 fl (78.0-98.0); Red Blood Cell (RBC) Count 3.17 mill/uL (4.20-5.40); White Blood Cell (WBC) Count 10.3 10x3/uL (4.8-10.8)
[2023-05-13 07:20] LABS: ALT (SGPT) 20 U/L (8-55); AST (SGOT) 28 U/L (5-34); Albumin 3.1 g/dL (3.5-5.0); Alkaline Phosphatase 107 U/L (40-110); Anion Gap 10 mmol/L (10-20); BUN (Urea Nitrogen) 50 mg/dL (9.8-20.1); Bilirubin, Total 0.7 mg/dL (0.2-1.2); Calcium 8.8 mg/dL (7.8-10.44); Carbon Dioxide 19 mmol/L (22-29); Chloride 112 mmol/L (98-107); Globulin 2.4 g/dL (2.4-3.5); Glucose 120 mg/dL (70-105); Potassium 3.7 mmol/L (3.5-5.1); Protein, Total 5.5 g/dL (6.0-8.3); Sodium 137 mmol/L (136-145)
[2023-05-13 07:44] LABS: Platelet Count 54 10x3/uL (130-400)
[2023-05-13 07:45] LABS: Delete Auto Diff?? YES
[2023-05-13 08:26] VITALS: BP 125/79; TEMP 98.2
[2023-05-13 08:53] LABS: Band 2 % (5-11); Burr Cells MODERATE= 6-15 cells HPF (0-1); CellaVision Operator ID LAB.GE; Eosinophils 45 % (0-10); Lymphocytes 9 % (21-51); Monocytes 3 % (0-10); Neutrophil 36 % (42-75); Platelet Adequacy Comment Platelets Decreased; Polychromasia SLIGHT = 2-3 cells HPF (0-2); Total Cell Count 106
[2023-05-13] MEDS: HumaLOG 300 UNITS/3 ML VIAL SC SCH ×2 (08:58→13:36)
[2023-05-13] MEDS: Insulin Glargine 30 UNITS/0.3 ML VIAL SC SCH (08:59)
[2023-05-13] MEDS ORDERED: Ciprofloxacin 500 MG TAB PO SCH ×2 (09:00)
[2023-05-13] MEDS: Furosemide 40 MG TAB PO SCH (09:00)
[2023-05-13] MEDS: Spironolactone 100 MG TAB PO SCH (09:00)
[2023-05-13] MEDS: Cyanocobalamin (Vitamin B-12) 1,000 MCG TAB PO SCH (09:01)
[2023-05-13] MEDS: Ferrous Sulfate 325 MG TAB PO SCH (09:01)
[2023-05-13] MEDS: Midodrine HCl 5 MG TAB PO SCH (09:01)
[2023-05-13] MEDS: Rifaximin 200 MG TAB PO SCH (09:01)
[2023-05-13] MEDS: Atorvastatin Calcium 10 MG TAB PO SCH (09:01)
[2023-05-13] MEDS: Magnesium Oxide 250 MG TAB PO SCH (09:01)
[2023-05-13] MEDS: Folic Acid 1 MG TAB PO SCH (09:01)
[2023-05-13] MEDS: busPIRone HCl 10 MG TAB PO SCH (09:01)
[2023-05-13] MEDS: Cholecalciferol 1,000 UNITS (25 MCG) TAB PO SCH (09:02)
[2023-05-13] MEDS: Bupropion 150 MG XL TAB PO SCH (09:02)
[2023-05-13 09:41] LABS: Calc. Creatinine Clearance 26 mL/min (70-130); Estimated GFR 23
== END 2023-05-13 13:53 | disposition home or self-care (01) | DRG 441 ==
LOC: ERS 11:11 → ERHOLD 13:48 → 2NO 19:30 → T4-B 05-12 14:51
PROVIDERS: ADMIT Family Medicine; ATTEND Family Medicine
PROC: 0W9G3ZZ Drainage of Peritoneal Cavity, Percutaneous Approach (ICD-10-PCS; principal; 2023-05-11)
DX: K76.82 Hepatic encephalopathy (principal); G93.41 Metabolic encephalopathy; K76.6 Portal hypertension; N17.9 Acute kidney failure, unspecified; R18.8 Other ascites; K72.10 Chronic hepatic failure without coma; K74.60 Unspecified cirrhosis of liver; N18.32 Chronic kidney disease, stage 3b; D63.1 Anemia in chronic kidney disease; D69.6 Thrombocytopenia, unspecified; E11.22 Type 2 diabetes mellitus with diabetic chronic kidney disease; I10 Essential (primary) hypertension; J45.909 Unspecified asthma, uncomplicated; K21.9 Gastro-esophageal reflux disease without esophagitis; F32.9 Major depressive disorder, single episode, unspecified; F41.1 Generalized anxiety disorder; D64.9 Anemia, unspecified; K76.0 Fatty (change of) liver, not elsewhere classified; Z88.2 Allergy status to sulfonamides; Z88.8 Allergy status to other drugs, medicaments and biological substances; Z88.5 Allergy status to narcotic agent; Z79.899 Other long term (current) drug therapy; Z79.51 Long term (current) use of inhaled steroids; Z79.4 Long term (current) use of insulin; Z90.49 Acquired absence of other specified parts of digestive tract; Z98.890 Other specified postprocedural states; Z87.891 Personal history of nicotine dependence
CPT/HCPCS: 36415; 36416; 51701; 80053; 80306; 80307; 81001; 82140; 83735; 84100; 85025; 85610; 87070; 87205; 93005; J1815; J7120; Q0162

== ENCOUNTER → 2023-05-11 | Day surgery (SDC) | payer OTHER ==
[~2023-05-11] MED LIST changes: +Albumin 25% 0 ML ONE; -Albumin 25% 200 ML ONE
== END ==
LOC: ULT 10:19
PROVIDERS: ATTEND Internal Medicine Gastroenterology
DX: R18.8 Other ascites (principal); Z53.9 Procedure and treatment not carried out, unspecified reason
CPT/HCPCS: P9047

== ENCOUNTER 2023-05-18 10:06 | Day surgery (SDC) | payer OTHER ==
[2023-05-18] MEDS ORDERED: Albumin 25% 25 GM/100 ML BOT IVPB SCH (10:45)
[2023-05-18 13:09] VITALS: BP 133/73
== END 2023-05-18 12:30 | disposition home or self-care (01) ==
LOC: ULT 10:06
PROVIDERS: ATTEND Internal Medicine Gastroenterology
PROC: 0W9G30Z Drainage of Peritoneal Cavity with Drainage Device, Percutaneous Approach (ICD-10-PCS; principal; 2023-05-18)
DX: R18.8 Other ascites (principal)
CPT/HCPCS: 49083; 76770

== ENCOUNTER 2023-05-18 10:07 | Outpatient (CLI) | payer OTHER ==
[2023-05-18] MEDS ORDERED: Sodium Bicarbonate 2.5 MEQ/5 ML VIAL ONE (10:23)
[2023-05-18] MEDS ORDERED: Albumin 25% 200 ML ONE (10:23)
[2023-05-18] MEDS ORDERED: Lidocaine 1% PF 5 ML VIAL ONE (10:23)
== END 2023-05-18 10:08 | disposition home or self-care (01) ==
LOC: ULT 10:07
PROVIDERS: ATTEND Internal Medicine Nephrology
DX: N18.30 Chronic kidney disease, stage 3 unspecified (principal); N13.30 Unspecified hydronephrosis
CPT/HCPCS: J1642; P9047

== ENCOUNTER → 2023-06-01 | Day surgery (SDC) | payer OTHER ==
[~2023-06-01] MED LIST changes: -Albumin 25% 0 ML ONE; +Albumin 25% 200 ML ONE; +FLU VACC QS2023-24(6MOS UP)/PF 60 MCG/0.5 ML SYRINGE IM ONE
[2023-06-01 12:55] LABS: Hematocrit 25.9 % (36.0-47.0); Hemoglobin 8.5 g/dL (12.0-16.0); Manual Diff?? YES; Mean Corpuscular HGB CONC 32.8 g/dL (32.0-36.0); Mean Corpuscular Hemoglobin 29.4 pg (27.0-31.0); Mean Corpuscular Volume 89.6 fl (78.0-98.0); Mean Platelet Volume 13.5 fL (7.4-10.4); RBC Distribution Width 15.9 % (11.5-14.5); Red Blood Cell (RBC) Count 2.89 mill/uL (4.20-5.40); White Blood Cell (WBC) Count 8.7 10x3/uL (4.8-10.8)
[2023-06-01 13:03] LABS: Delete Auto Diff?? YES; Platelet Count 62 10x3/uL (130-400)
[2023-06-01 13:08] LABS: INR-International Normal Ratio 1.5; Prothrombin Time 18.5 sec (12.0-14.7)
[2023-06-01 13:09] LABS: PTT 54.8 sec (22.9-36.1)
[2023-06-01 13:26] LABS: Anisocytosis SLIGHT = 6-15 cells HPF (0-5); Band 4 % (5-11); CellaVision Operator ID LAB.MJL; Eosinophils 34 % (0-10); Large Platelets 1.1 % (0-5); Lymphocytes 2 % (21-51); Monocytes 9 % (0-10); Neutrophil 48 % (42-75); Ovalocytes SLIGHT = 2-5 cells HPF (0-1); Platelet Adequacy Comment Platelets Decreased; Poikilocytosis SLIGHT = 6-15 cells HPF (0-5); Polychromasia SLIGHT = 2-3 cells HPF (0-2); Reactive Lymphocytes 1 % (0-10); Schistocytes SLIGHT = 2-5 cells HPF (0-1); Tear Drops SLIGHT = 2-5 cells HPF (0-1); Total Cell Count 93
[2023-06-01 13:27] LABS: ALT (SGPT) 17 U/L (8-55); AST (SGOT) 23 U/L (5-34); Albumin 3.2 g/dL (3.5-5.0); Alkaline Phosphatase 89 U/L (40-110); Anion Gap 11 mmol/L (10-20); BUN (Urea Nitrogen) 64 mg/dL (9.8-20.1); Bilirubin, Total 0.9 mg/dL (0.2-1.2); Calc. Creatinine Clearance 29 mL/min (70-130); Calcium 8.7 mg/dL (7.8-10.44); Carbon Dioxide 19 mmol/L (22-29); Chloride 108 mmol/L (98-107); Estimated GFR 24; Globulin 2.3 g/dL (2.4-3.5); Glucose 267 mg/dL (70-105); Magnesium 2.2 mg/dL (1.6-2.6); Potassium 3.3 mmol/L (3.5-5.1); Protein, Total 5.5 g/dL (6.0-8.3); Sodium 135 mmol/L (136-145)
[2023-06-01 13:50] LABS: RBC Count-Automated (BF) 11 /cu.mm; WBC/Nucleated-Auto (BF) 44 /cu.mm
[2023-06-01 14:16] LABS: BF Color Colorless; Body Fluid Source Ascites Body Fluid; Clarity Hazy (Clear); Tube # EDTA
[2023-06-01 14:21] LABS: BF Segmented Neutrophils 1 %; Cell Count Non Hematic 60 %; Eosinophils 14 %; Lymphocytes 24 %
== END ==
LOC: ULT 09:43
PROVIDERS: ATTEND Internal Medicine Gastroenterology
PROC: 0W9G30Z Drainage of Peritoneal Cavity with Drainage Device, Percutaneous Approach (ICD-10-PCS; principal; 2023-06-01)
DX: K74.60 Unspecified cirrhosis of liver (principal); R18.8 Other ascites; K31.819 Angiodysplasia of stomach and duodenum without bleeding; K72.90 Hepatic failure, unspecified without coma; K65.2 Spontaneous bacterial peritonitis
CPT/HCPCS: 49083; 80053; 82042; 83735; 85025; 85060; 85610; 85730; 87070; 87205; 89051; J1642; P9047

== ENCOUNTER → 2023-06-08 | Day surgery (SDC) | payer OTHER ==
[~2023-06-08] MED LIST changes: +Albumin 25% 25 GM/100 ML BOT IVPB SCH; -FLU VACC QS2023-24(6MOS UP)/PF 60 MCG/0.5 ML SYRINGE IM ONE
[2023-06-08 13:37] VITALS: BP 127/73
[2023-06-08 15:24] LABS: RBC Count-Automated (BF) 0 /cu.mm; WBC/Nucleated-Auto (BF) 10 /cu.mm
[2023-06-08 15:25] LABS: BF Color Colorless; Body Fluid Source Ascites Body Fluid; Clarity Hazy (Clear); Tube # EDTA
[2023-06-08 15:27] LABS: BF Segmented Neutrophils 8 %; Cell Count Non Hematic 78 %; Lymphocytes 13 %
== END ==
LOC: ULT 10:46
PROVIDERS: ATTEND Internal Medicine Gastroenterology
PROC: 0W9G3ZZ Drainage of Peritoneal Cavity, Percutaneous Approach (ICD-10-PCS; principal; 2023-06-08)
DX: K74.60 Unspecified cirrhosis of liver (principal); R18.8 Other ascites
CPT/HCPCS: 49083; 82042; 84155; 85060; 87070; 87205; 89051; J1642; P9047

== ENCOUNTER → 2023-06-15 | Day surgery (SDC) | payer OTHER ==
[~2023-06-15] MED LIST changes: -Albumin 25% 25 GM/100 ML BOT IVPB SCH; +FLU VACC QS2023-24(6MOS UP)/PF 60 MCG/0.5 ML SYRINGE IM ONE
[2023-06-15 12:47] VITALS: BMI 24.2
[2023-06-15 12:52] VITALS: BP 116/78
[2023-06-15 13:29] LABS: Hematocrit 25.7 % (36.0-47.0); Hemoglobin 8.3 g/dL (12.0-16.0); Manual Diff?? YES; Mean Corpuscular HGB CONC 32.3 g/dL (32.0-36.0); Mean Corpuscular Volume 89.9 fl (78.0-98.0); Mean Platelet Volume 13.4 fL (7.4-10.4); Red Blood Cell (RBC) Count 2.86 mill/uL (4.20-5.40); White Blood Cell (WBC) Count 9.5 10x3/uL (4.8-10.8)
[2023-06-15 13:31] LABS: Delete Auto Diff?? YES; Platelet Count 53 10x3/uL (130-400)
[2023-06-15 13:38] LABS: INR-International Normal Ratio 1.7; Prothrombin Time 20.2 sec (12.0-14.7)
[2023-06-15 13:50] LABS: ALT (SGPT) 13 U/L (8-55); AST (SGOT) 23 U/L (5-34); Alkaline Phosphatase 84 U/L (40-110); Anion Gap 15 mmol/L (10-20); BUN (Urea Nitrogen) 46 mg/dL (9.8-20.1); Bilirubin, Total 0.9 mg/dL (0.2-1.2); Calc. Creatinine Clearance 36 mL/min (70-130); Calcium 8.8 mg/dL (7.8-10.44); Carbon Dioxide 18 mmol/L (22-29); Chloride 108 mmol/L (98-107); Estimated GFR 31; Globulin 1.8 g/dL (2.4-3.5); Glucose 250 mg/dL (70-105); Magnesium 1.8 mg/dL (1.6-2.6); Potassium 3.5 mmol/L (3.5-5.1); Protein, Total 5.8 g/dL (6.0-8.3); Sodium 137 mmol/L (136-145)
[2023-06-15 14:15] LABS: Anisocytosis SLIGHT = 6-15 cells HPF (0-5); Band 2 % (5-11); CellaVision Operator ID LAB.MJL; Eosinophils 58 % (0-10); Large Platelets 2.1 % (0-5); Lymphocytes 4 % (21-51); Monocytes 3 % (0-10); Neutrophil 32 % (42-75); Ovalocytes SLIGHT = 2-5 cells HPF (0-1); Platelet Adequacy Comment Platelets Decreased; Poikilocytosis SLIGHT = 6-15 cells HPF (0-5); Polychromasia SLIGHT = 2-3 cells HPF (0-2); Tear Drops SLIGHT = 2-5 cells HPF (0-1); Total Cell Count 95
[2023-06-15 14:51] LABS: Body Fluid Source Ascites Body Fluid; Clarity Hazy (Clear); Tube # EDTA
[2023-06-15 14:52] LABS: BF Color Colorless; BF RBC Count - Manual 172 /cu.mm; BF WBC/Nonhematics Ct.-Manual 21 /cu.mm
[2023-06-15 15:16] LABS: Cell Count Non Hematic 60 %; Eosinophils 18 %; Lymphocytes 20 %
== END ==
LOC: ULT 10:23
PROVIDERS: ATTEND Internal Medicine Gastroenterology
PROC: 0W9G30Z Drainage of Peritoneal Cavity with Drainage Device, Percutaneous Approach (ICD-10-PCS; principal; 2023-06-15)
DX: R18.8 Other ascites (principal)
CPT/HCPCS: 49083; 80053; 82042; 83735; 84157; 85025; 85060; 85610; 87070; 87205; 89051; J1642; P9047

== ENCOUNTER 2023-06-22 10:26 | Day surgery (SDC) | payer OTHER ==
[2023-06-22] MEDS ORDERED: Lidocaine 1% PF 5 ML VIAL ONE (10:38)
[2023-06-22] MEDS ORDERED: Albumin 25% 200 ML ONE (10:38)
[2023-06-22] MEDS ORDERED: Sodium Bicarbonate 2.5 MEQ/5 ML VIAL ONE (10:38)
[2023-06-22] MEDS ORDERED: Albumin 25% 25 GM/100 ML BOT IVPB SCH (11:15)
[2023-06-22 12:44] VITALS: BP 121/77
[2023-06-22 13:57] LABS: WBC/Nucleated-Auto (BF) 81 /cu.mm
[2023-06-22 15:26] LABS: Body Fluid Source Ascites Body Fluid; Tube # EDTA
[2023-06-22 15:27] LABS: BF Color Colorless; Clarity Hazy (Clear); RBC Count-Automated (BF) 12 /cu.mm
[2023-06-22 15:28] LABS: BF Segmented Neutrophils 17 %; Cell Count Non Hematic 45 %; Lymphocytes 38 %
== END 2023-06-22 12:30 | disposition home or self-care (01) ==
LOC: ULT 10:26
PROVIDERS: ATTEND Internal Medicine Gastroenterology
PROC: 0W9G3ZZ Drainage of Peritoneal Cavity, Percutaneous Approach (ICD-10-PCS; principal; 2023-06-22)
DX: K74.60 Unspecified cirrhosis of liver (principal); R18.8 Other ascites; K31.89 Other diseases of stomach and duodenum; K72.90 Hepatic failure, unspecified without coma; K65.2 Spontaneous bacterial peritonitis; Z88.5 Allergy status to narcotic agent; Z88.0 Allergy status to penicillin; Z88.2 Allergy status to sulfonamides; Z88.8 Allergy status to other drugs, medicaments and biological substances
CPT/HCPCS: 49083; 82042; 84155; 85060; 87070; 87205; 89051; J1642; P9047

== ENCOUNTER → 2023-06-29 | Day surgery (SDC) | payer OTHER ==
[~2023-06-29] MED LIST changes: +Albumin 25% 25 GM/100 ML BOT IVPB SCH; -FLU VACC QS2023-24(6MOS UP)/PF 60 MCG/0.5 ML SYRINGE IM ONE
[2023-06-29 11:28] LABS: Hematocrit 27.5 % (36.0-47.0); Hemoglobin 8.8 g/dL (12.0-16.0); Manual Diff?? YES; Mean Corpuscular Hemoglobin 28.1 pg (27.0-31.0); Mean Corpuscular Volume 87.9 fl (78.0-98.0); Mean Platelet Volume 11.1 fL (7.4-10.4); RBC Distribution Width 17.4 % (11.5-14.5); Red Blood Cell (RBC) Count 3.13 mill/uL (4.20-5.40); White Blood Cell (WBC) Count 9.4 10x3/uL (4.8-10.8)
[2023-06-29 11:30] LABS: Delete Auto Diff?? YES; Platelet Count 63 10x3/uL (130-400)
[2023-06-29 11:40] LABS: INR-International Normal Ratio 1.8; Prothrombin Time 21.5 sec (12.0-14.7)
[2023-06-29 11:41] LABS: PTT 75.8 sec (22.9-36.1)
[2023-06-29 11:48] LABS: Anion Gap 14 mmol/L (10-20); BUN (Urea Nitrogen) 49 mg/dL (9.8-20.1); Calc. Creatinine Clearance 0 mL/min (70-130); Calcium 8.4 mg/dL (7.8-10.44); Carbon Dioxide 18 mmol/L (22-29); Chloride 109 mmol/L (98-107); Estimated GFR 29; Glucose 206 mg/dL (70-105); Magnesium 1.8 mg/dL (1.6-2.6); Potassium 3.3 mmol/L (3.5-5.1); Sodium 138 mmol/L (136-145)
[2023-06-29 11:57] LABS: Anisocytosis SLIGHT = 6-15 cells HPF (0-5); Band 1 % (5-11); CellaVision Operator ID lab.dlt; Eosinophils 51 % (0-10); Hypochromia SLIGHT = 6-15 cells HPF (0-5); Lymphocytes 7 % (21-51); Monocytes 3 % (0-10); Neutrophil 37 % (42-75); Ovalocytes SLIGHT = 2-5 cells HPF (0-1); Platelet Adequacy Comment Platelets Decreased; Poikilocytosis SLIGHT = 6-15 cells HPF (0-5); Polychromasia SLIGHT = 2-3 cells HPF (0-2); Reactive Lymphocytes 1 % (0-10); Schistocytes SLIGHT = 2-5 cells HPF (0-1); Total Cell Count 99
[2023-06-29 14:28] VITALS: BP 113/68
[2023-06-29 14:39] LABS: RBC Count-Automated (BF) 1571 /cu.mm; WBC/Nucleated-Auto (BF) 70 /cu.mm
[2023-06-29 14:52] LABS: BF Color Yellow; Body Fluid Source Ascites Body Fluid; Clarity Hazy (Clear); Tube # EDTA
[2023-06-29 15:04] LABS: BF Segmented Neutrophils 3 %; Cell Count Non Hematic 44 %; Eosinophils 31 %; Lymphocytes 19 %
== END ==
LOC: ULT 10:19
PROVIDERS: ATTEND Internal Medicine Gastroenterology
PROC: 0W9G30Z Drainage of Peritoneal Cavity with Drainage Device, Percutaneous Approach (ICD-10-PCS; principal; 2023-06-29)
DX: R18.8 Other ascites (principal)
CPT/HCPCS: 49083; 80048; 82042; 83735; 84157; 85025; 85060; 85610; 85730; 87070; 87205; 89051; J1642; P9047

== ENCOUNTER → 2023-07-06 | Day surgery (SDC) | payer OTHER ==
[~2023-07-06] MED LIST changes: -Albumin 25% 25 GM/100 ML BOT IVPB SCH; +FLU VACC QS2023-24(6MOS UP)/PF 60 MCG/0.5 ML SYRINGE IM ONE
[2023-07-06 14:14] LABS: RBC Count-Automated (BF) 81 /cu.mm; WBC/Nucleated-Auto (BF) 12 /cu.mm
[2023-07-06 14:30] LABS: BF Color Yellow; Body Fluid Source Ascites Body Fluid; Clarity Clear (Clear); Tube # EDTA
[2023-07-06 14:31] LABS: BF Segmented Neutrophils 31 %; Cell Count Non Hematic 40 %; Lymphocytes 28 %
== END ==
LOC: ULT 10:37
PROVIDERS: ATTEND Internal Medicine Gastroenterology
PROC: 0W9G30Z Drainage of Peritoneal Cavity with Drainage Device, Percutaneous Approach (ICD-10-PCS; principal; 2023-07-06)
DX: R18.8 Other ascites (principal); K31.819 Angiodysplasia of stomach and duodenum without bleeding; K72.90 Hepatic failure, unspecified without coma; K65.2 Spontaneous bacterial peritonitis; K74.60 Unspecified cirrhosis of liver
CPT/HCPCS: 49083; 84155; 85060; 87070; 87205; 89051; 90471; 90686; G0008; J1642; P9047

== ENCOUNTER 2023-07-09 11:15 | Inpatient (IN) | payer OTHER ==
[2023-07-09] MEDS ORDERED: Ondansetron PF 4 MG/2 ML Vial ONE (12:16)
[2023-07-09 12:33] LABS: #Basophils 0.2 thou/uL (0.0-0.2); #Monocytes 1.5 thou/uL (0.11-0.59); #Neutrophils 17.2 thou/uL (1.40-6.50); %Basophils 0.9 % (0.0-1.0); %Eosinophils 9.1 % (0.0-10.0); %Monocytes 7.2 % (0.0-10.0); %Neutrophils 79.9 % (42.0-75.0); Hematocrit 29.6 % (36.0-47.0); Hemoglobin 9.4 g/dL (12.0-16.0); Mean Corpuscular HGB CONC 31.8 g/dL (32.0-36.0); Mean Corpuscular Hemoglobin 27.6 pg (27.0-31.0); Mean Corpuscular Volume 87.1 fl (78.0-98.0); Platelet Count 53 10x3/uL (130-400); RBC Distribution Width 16.7 % (11.5-14.5); White Blood Cell (WBC) Count 21.5 10x3/uL (4.8-10.8)
[2023-07-09 12:55] LABS: INR-International Normal Ratio 1.8; Prothrombin Time 21.6 sec (12.0-14.7)
[2023-07-09 12:55] LABS: ALT (SGPT) 14 U/L (8-55); AST (SGOT) 19 U/L (5-34); Albumin 3.7 g/dL (3.5-5.0); Alkaline Phosphatase 106 U/L (40-110); Anion Gap 14 mmol/L (10-20); BUN (Urea Nitrogen) 50 mg/dL (9.8-20.1); Bilirubin, Total 1.9 mg/dL (0.2-1.2); Calc. Creatinine Clearance 0 mL/min (70-130); Calcium 8.8 mg/dL (7.8-10.44); Carbon Dioxide 17 mmol/L (22-29); Chloride 108 mmol/L (98-107); Estimated GFR 23; Globulin 1.9 g/dL (2.4-3.5); Glucose 152 mg/dL (70-105); Lipase 23 U/L (8-78); Potassium 3.7 mmol/L (3.5-5.1); Protein, Total 5.6 g/dL (6.0-8.3); Sodium 135 mmol/L (136-145)
[2023-07-09 12:57] LABS: PTT 82.5 sec (22.9-36.1)
[2023-07-09 12:58] LABS: Troponin I Less than 0.010 ng/mL (< 0.028)
[2023-07-09] MEDS ORDERED: traMADol HCl 50 MG TAB ONE (13:44)
[2023-07-09] MEDS ORDERED: cefTRIAXone (ROCEPHIN) 2 GM VIAL ONE (15:13)
[2023-07-09] MEDS ORDERED: Sodium Chloride 0.9% 100 ML ONE (15:14)
[2023-07-09 15:47] LABS: Bilirubin Negative (Negative); Blood, Urine Negative (Negative); Clarity Clear (Clear); Glucose, Urine (Dipstick) Normal (Negative); Ketone, Urine Negative (Negative); Leukocyte Negative Leu/uL (Negative); Nitrite Negative (Negative); Protein, Urine (Dipstick) Negative (Neg-Trace); Specific Gravity, Urine 1.016 (1.002-1.036); Urobilinogen Normal mg/dL (Less than 2)
[2023-07-09] MEDS ORDERED: Lidocaine 1% PF 5 ML VIAL ONE ×2 (15:51→16:53)
[2023-07-09 15:59] LABS: CAUTI Indications for Culture Pelvic or flank pain; RBC/HPF None Seen HPF (0-3); Squamous Epithelial 0-3 HPF (0-3); WBC/HPF 0-3 HPF (0-3)
[2023-07-09 16:00] LABS: Urine Culture Reflex No No
[2023-07-09] MEDS ORDERED: Calcium Carbonate 500 MG ChewTAB PO PRN (16:39)
[2023-07-09] MEDS ORDERED: Ondansetron ODT 4 MG TAB PO PRN ×2 (16:39→18:58)
[2023-07-09] MEDS ORDERED: Guaifenesin DM 100-10/5 ML UDCUP PO PRN (16:39)
[2023-07-09] MEDS ORDERED: Ondansetron PF 4 MG/2 ML Vial IVP PRN (16:39)
[2023-07-09] MEDS ORDERED: Albumin 25% 25 GM/100 ML BOT IVPB SCH (17:15)
[2023-07-09 18:31] LABS: BF Color Yellow; BF WBC/Nonhematics Ct.-Manual 33 /cu.mm; Body Fluid Source Ascites Body Fluid; Clarity Hazy (Clear); Tube # 3
[2023-07-09 18:32] LABS: BF RBC Count - Manual 276 /cu.mm
[2023-07-09 18:50] LABS: BF Segmented Neutrophils 4 %; Cell Count Non Hematic 24 %; Eosinophils 33 %; Lymphocytes 37 %
[2023-07-09] MEDS ORDERED: Albuterol 200 PUFF (6.7GM INHALER) INH PRN (19:10)
[2023-07-09 19:44] VITALS: BMI 25.3
[2023-07-09] MEDS ORDERED: Rifaximin 550 MG TAB PO SCH (21:00)
[2023-07-09] MEDS: Melatonin 3 MG TAB PO SCH (21:04)
[2023-07-09] MEDS: Spironolactone 100 MG TAB PO SCH (21:05)
[2023-07-09] MEDS: busPIRone HCl 10 MG TAB PO SCH (21:06)
[2023-07-09] MEDS: Midodrine HCl 5 MG TAB PO SCH (21:06)
[2023-07-09] MEDS: Cholecalciferol 1,000 UNITS (25 MCG) TAB PO SCH (21:06)
[2023-07-09] MEDS: Loratadine 10 MG TAB PO SCH (21:06)
[2023-07-09] MEDS: Rifaximin 200 MG TAB PO SCH (21:15)
[2023-07-10 06:04] LABS: Hematocrit 24.8 % (36.0-47.0); Hemoglobin 7.8 g/dL (12.0-16.0); Manual Diff?? YES; Mean Corpuscular HGB CONC 31.5 g/dL (32.0-36.0); Mean Corpuscular Hemoglobin 27.5 pg (27.0-31.0); Mean Corpuscular Volume 87.3 fl (78.0-98.0); Platelet Count 41 10x3/uL (130-400); RBC Distribution Width 16.8 % (11.5-14.5); Red Blood Cell (RBC) Count 2.84 mill/uL (4.20-5.40); White Blood Cell (WBC) Count 10.9 10x3/uL (4.8-10.8)
[2023-07-10 06:05] LABS: Delete Auto Diff?? YES
[2023-07-10 06:23] LABS: ALT (SGPT) 12 U/L (8-55); AST (SGOT) 18 U/L (5-34); Albumin 3.4 g/dL (3.5-5.0); Alkaline Phosphatase 85 U/L (40-110); Anion Gap 10 mmol/L (10-20); BUN (Urea Nitrogen) 54 mg/dL (9.8-20.1); Calc. Creatinine Clearance 30 mL/min (70-130); Calcium 8.4 mg/dL (7.8-10.44); Carbon Dioxide 21 mmol/L (22-29); Chloride 109 mmol/L (98-107); Estimated GFR 23; Globulin 1.6 g/dL (2.4-3.5); Glucose 107 mg/dL (70-105); Potassium 3.3 mmol/L (3.5-5.1); Sodium 137 mmol/L (136-145)
[2023-07-10 06:28] LABS: Anisocytosis SLIGHT = 6-15 cells HPF (0-5); Band 2 % (5-11); CellaVision Operator ID lab.sh2; Eosinophils 45 % (0-10); Hypochromia MODERATE=16-30 cells HPF (0-5); Lymphocytes 2 % (21-51); Macrocytosis SLIGHT = 6-15 cells HPF (0-5); Monocytes 3 % (0-10); Neutrophil 49 % (42-75); Ovalocytes SLIGHT = 2-5 cells HPF (0-1); Platelet Adequacy Comment Platelets Decreased; Polychromasia SLIGHT = 2-3 cells HPF (0-2); Smudge Cells 10.9 %; Total Cell Count 101
[2023-07-10] MEDS: Cyanocobalamin (Vitamin B-12) 1,000 MCG TAB PO SCH (08:32)
[2023-07-10] MEDS: Magnesium Oxide 250 MG TAB PO SCH (08:32)
[2023-07-10] MEDS: BuPROPion XL 150 MG ER.TAB PO SCH (08:32)
[2023-07-10] MEDS: HumaLOG 300 UNITS/3 ML VIAL SC SCH ×3 (08:33→16:49)
[2023-07-10] MEDS: busPIRone HCl 10 MG TAB PO SCH ×2 (08:33→21:07)
[2023-07-10] MEDS: Folic Acid 1 MG TAB PO SCH (08:33)
[2023-07-10] MEDS: Midodrine HCl 5 MG TAB PO SCH ×3 (08:33→21:08)
[2023-07-10] MEDS: Rifaximin 200 MG TAB PO SCH ×2 (08:33→21:08)
[2023-07-10] MEDS: Furosemide 40 MG TAB PO SCH ×2 (08:33→14:16)
[2023-07-10] MEDS: Ferrous Sulfate 325 MG TAB PO SCH ×2 (08:33→15:58)
[2023-07-10] MEDS: Atorvastatin Calcium 10 MG TAB PO SCH (08:33)
[2023-07-10] MEDS: Spironolactone 100 MG TAB PO SCH (08:33)
[2023-07-10] MEDS: Insulin Glargine 30 UNITS/0.3 ML VIAL SC SCH (08:34)
[2023-07-10] MEDS: Cholecalciferol 1,000 UNITS (25 MCG) TAB PO SCH ×2 (08:41→21:09)
[2023-07-10] MEDS ORDERED: Potassium Chloride 20 MEQ TAB PO SCH (09:30)
[2023-07-10] MEDS ORDERED: cefTRIAXone\\ROCEPHIN 2 GM in Sodium Chloride 0.9% 100 ML IVPB SCH (16:00)
[2023-07-10] MEDS: Mometasone Furoate 30 PUFF 220 MCG INH SCH (18:19)
[2023-07-10] MEDS: Fidaxomicin 200 MG TAB PO SCH (21:07)
[2023-07-10] MEDS: traMADol HCl 50 MG TAB PO PRN (21:07)
[2023-07-10] MEDS: Loratadine 10 MG TAB PO SCH (21:07)
[2023-07-10] MEDS: Sodium Bicarbonate Tab 325 MG TAB PO SCH (21:08)
[2023-07-10] MEDS: Melatonin 3 MG TAB PO SCH (21:08)
[2023-07-11 05:48] LABS: Hematocrit 21.9 % (36.0-47.0); Hemoglobin 6.8 g/dL (12.0-16.0); Manual Diff?? YES; Mean Corpuscular HGB CONC 31.1 g/dL (32.0-36.0); Mean Corpuscular Hemoglobin 27.2 pg (27.0-31.0); Mean Corpuscular Volume 87.6 fl (78.0-98.0); Mean Platelet Volume 12.4 fL (7.4-10.4); RBC Distribution Width 16.8 % (11.5-14.5)
[2023-07-11 05:49] LABS: Platelet Count 42 10x3/uL (130-400)
[2023-07-11 05:50] LABS: Delete Auto Diff?? YES
[2023-07-11 06:27] LABS: ALT (SGPT) 9 U/L (8-55); AST (SGOT) 13 U/L (5-34); Albumin 2.5 g/dL (3.5-5.0); Alkaline Phosphatase 71 U/L (40-110); Anion Gap 8 mmol/L (10-20); BUN (Urea Nitrogen) 43 mg/dL (9.8-20.1); Bilirubin, Total 0.5 mg/dL (0.2-1.2); Calc. Creatinine Clearance 42 mL/min (70-130); Calcium 6.4 mg/dL (7.8-10.44); Carbon Dioxide 16 mmol/L (22-29); Chloride 117 mmol/L (98-107); Estimated GFR 35; Globulin 1.3 g/dL (2.4-3.5); Glucose 95 mg/dL (70-105); Potassium 2.9 mmol/L (3.5-5.1); Protein, Total 3.8 g/dL (6.0-8.3); Sodium 138 mmol/L (136-145)
[2023-07-11 06:30] LABS: Band 4 % (5-11); CellaVision Operator ID LAB.CLH1; Eosinophils 51 % (0-10); Hypochromia MODERATE=16-30 cells HPF (0-5); Lymphocytes 7 % (21-51); Monocytes 2 % (0-10); Neutrophil 35 % (42-75); Platelet Adequacy Comment Platelets Decreased; Polychromasia MODERATE = 3-4 cells HPF (0-2); Total Cell Count 99
[2023-07-11] MEDS: Rifaximin 200 MG TAB PO SCH ×2 (09:58→21:19)
[2023-07-11] MEDS: Atorvastatin Calcium 10 MG TAB PO SCH (09:59)
[2023-07-11] MEDS: busPIRone HCl 10 MG TAB PO SCH ×2 (09:59→21:20)
[2023-07-11] MEDS: traMADol HCl 50 MG TAB PO PRN (09:59)
[2023-07-11] MEDS: BuPROPion XL 150 MG ER.TAB PO SCH (09:59)
[2023-07-11] MEDS: Sodium Bicarbonate Tab 325 MG TAB PO SCH ×2 (09:59→21:19)
[2023-07-11] MEDS: Ferrous Sulfate 325 MG TAB PO SCH ×2 (09:59→17:41)
[2023-07-11] MEDS: Cyanocobalamin (Vitamin B-12) 1,000 MCG TAB PO SCH (10:00)
[2023-07-11] MEDS: Magnesium Oxide 250 MG TAB PO SCH (10:00)
[2023-07-11] MEDS: Cholecalciferol 1,000 UNITS (25 MCG) TAB PO SCH ×2 (10:00→21:19)
[2023-07-11] MEDS ORDERED: Potassium Chloride 10 MEQ in Premix 1 BAG IVPB SCH (10:00)
[2023-07-11] MEDS ORDERED: Potassium Chloride 40 MEQ in Premix 1 BAG IVPB SCH (10:00)
[2023-07-11] MEDS: Fidaxomicin 200 MG TAB PO SCH ×2 (10:00→21:19)
[2023-07-11] MEDS ORDERED: Potassium Chloride 20 MEQ TAB PO SCH (10:00)
[2023-07-11] MEDS: Insulin Glargine 30 UNITS/0.3 ML VIAL SC SCH (10:01)
[2023-07-11] MEDS: Midodrine HCl 5 MG TAB PO SCH ×3 (10:01→21:19)
[2023-07-11] MEDS: Folic Acid 1 MG TAB PO SCH (10:01)
[2023-07-11] MEDS: HumaLOG 300 UNITS/3 ML VIAL SC SCH ×3 (10:01→17:40)
[2023-07-11] MEDS: Potassium Chloride 20 MEQ in Premix 1 BAG IVPB SCH ×2 (12:31→14:42)
[2023-07-11 14:13] LABS: Hematocrit 31.4 % (36.0-47.0)
[2023-07-11 16:47] LABS: Anion Gap 15 mmol/L (10-20); BUN (Urea Nitrogen) 51 mg/dL (9.8-20.1); Calc. Creatinine Clearance 32 mL/min (70-130); Calcium 7.9 mg/dL (7.8-10.44); Carbon Dioxide 17 mmol/L (22-29); Chloride 111 mmol/L (98-107); Estimated GFR 25; Glucose 128 mg/dL (70-105); Potassium 5.1 mmol/L (3.5-5.1); Sodium 138 mmol/L (136-145)
[2023-07-11] MEDS: Mometasone Furoate 30 PUFF 220 MCG INH SCH (18:33)
[2023-07-11] MEDS: Loratadine 10 MG TAB PO SCH (21:19)
[2023-07-11] MEDS: Melatonin 3 MG TAB PO SCH (21:20)
[2023-07-12 05:50] LABS: Hematocrit 26.9 % (36.0-47.0); Hemoglobin 8.6 g/dL (12.0-16.0); Manual Diff?? YES; Mean Corpuscular Hemoglobin 27.9 pg (27.0-31.0); Mean Corpuscular Volume 87.3 fl (78.0-98.0); Mean Platelet Volume 12.3 fL (7.4-10.4); Red Blood Cell (RBC) Count 3.08 mill/uL (4.20-5.40); White Blood Cell (WBC) Count 10.1 10x3/uL (4.8-10.8)
[2023-07-12 05:52] LABS: Delete Auto Diff?? YES; Platelet Count 45 10x3/uL (130-400)
[2023-07-12 06:20] LABS: ALT (SGPT) 13 U/L (8-55); AST (SGOT) 21 U/L (5-34); Albumin 3.2 g/dL (3.5-5.0); Alkaline Phosphatase 88 U/L (40-110); Anion Gap 13 mmol/L (10-20); BUN (Urea Nitrogen) 52 mg/dL (9.8-20.1); Bilirubin, Total 0.8 mg/dL (0.2-1.2); Calc. Creatinine Clearance 34 mL/min (70-130); Calcium 7.9 mg/dL (7.8-10.44); Carbon Dioxide 18 mmol/L (22-29); Chloride 112 mmol/L (98-107); Estimated GFR 27; Globulin 1.9 g/dL (2.4-3.5); Glucose 163 mg/dL (70-105); Potassium 4.7 mmol/L (3.5-5.1); Protein, Total 5.1 g/dL (6.0-8.3); Sodium 138 mmol/L (136-145)
[2023-07-12 06:21] LABS: Anisocytosis MODERATE=16-30 cells HPF (0-5); CellaVision Operator ID lab.sh2; Eosinophils 54 % (0-10); Hypochromia SLIGHT = 6-15 cells HPF (0-5); Lymphocytes 2 % (21-51); Macrocytosis SLIGHT = 6-15 cells HPF (0-5); Monocytes 3 % (0-10); Neutrophil 41 % (42-75); Ovalocytes SLIGHT = 2-5 cells HPF (0-1); Platelet Adequacy Comment Significant decrease; Polychromasia SLIGHT = 2-3 cells HPF (0-2); Tear Drops SLIGHT = 2-5 cells HPF (0-1); Total Cell Count 100
[2023-07-12 07:17] VITALS: TEMP 98
[2023-07-12] MEDS: Atorvastatin Calcium 10 MG TAB PO SCH (09:04)
[2023-07-12] MEDS: Sodium Bicarbonate Tab 325 MG TAB PO SCH (09:04)
[2023-07-12] MEDS: BuPROPion XL 150 MG ER.TAB PO SCH (09:04)
[2023-07-12] MEDS: Magnesium Oxide 250 MG TAB PO SCH (09:04)
[2023-07-12] MEDS: Cholecalciferol 1,000 UNITS (25 MCG) TAB PO SCH (09:05)
[2023-07-12] MEDS: Rifaximin 200 MG TAB PO SCH (09:05)
[2023-07-12] MEDS: Cyanocobalamin (Vitamin B-12) 1,000 MCG TAB PO SCH (09:05)
[2023-07-12] MEDS: Midodrine HCl 5 MG TAB PO SCH ×2 (09:05→14:22)
[2023-07-12] MEDS: Fidaxomicin 200 MG TAB PO SCH (09:05)
[2023-07-12] MEDS: Folic Acid 1 MG TAB PO SCH (09:05)
[2023-07-12] MEDS: Insulin Glargine 30 UNITS/0.3 ML VIAL SC SCH (09:05)
[2023-07-12] MEDS: Ferrous Sulfate 325 MG TAB PO SCH ×2 (09:05→16:35)
[2023-07-12] MEDS: busPIRone HCl 10 MG TAB PO SCH (09:05)
[2023-07-12] MEDS: HumaLOG 300 UNITS/3 ML VIAL SC SCH ×3 (09:06→16:27)
[2023-07-12 16:02] VITALS: BP 122/80
== END 2023-07-12 17:23 | disposition home or self-care (01) | DRG 372 ==
LOC: ERS 11:15 → T4-B 19:30
PROVIDERS: ADMIT Student in an Organized Health Care Education/Training Program; ATTEND Student in an Organized Health Care Education/Training Program
PROC: 0W9G3ZX Drainage of Peritoneal Cavity, Percutaneous Approach, Diagnostic (ICD-10-PCS; principal; 2023-07-09)
PROC: 30233J1 Transfusion of Nonautologous Serum Albumin into Peripheral Vein, Percutaneous Approach (ICD-10-PCS; 2023-07-09)
PROC: 30233N1 Transfusion of Nonautologous Red Blood Cells into Peripheral Vein, Percutaneous Approach (ICD-10-PCS; 2023-07-11)
DX: A04.72 Enterocolitis due to Clostridium difficile, not specified as recurrent (principal); N18.4 Chronic kidney disease, stage 4 (severe); K70.31 Alcoholic cirrhosis of liver with ascites; D63.1 Anemia in chronic kidney disease; E11.22 Type 2 diabetes mellitus with diabetic chronic kidney disease; K21.9 Gastro-esophageal reflux disease without esophagitis; I12.9 Hypertensive chronic kidney disease with stage 1 through stage 4 chronic kidney disease, or unspecified chronic kidney disease; J30.9 Allergic rhinitis, unspecified; F32.9 Major depressive disorder, single episode, unspecified; Z88.8 Allergy status to other drugs, medicaments and biological substances; Z91.048 Other nonmedicinal substance allergy status; Z88.2 Allergy status to sulfonamides; Z88.5 Allergy status to narcotic agent; Z79.899 Other long term (current) drug therapy; Z79.4 Long term (current) use of insulin; Z90.89 Acquired absence of other organs; Z98.890 Other specified postprocedural states; Z87.891 Personal history of nicotine dependence; E87.6 Hypokalemia; Z83.3 Family history of diabetes mellitus; Z82.49 Family history of ischemic heart disease and other diseases of the circulatory system; D72.829 Elevated white blood cell count, unspecified; D72.10 Eosinophilia, unspecified
CPT/HCPCS: 36415; 36416; 36430; 49083; 74176; 80053; 81001; 82150; 83605; 83630; 83690; 84157; 84484; 85025; 85060; 85610; 85730; 86850; 86900; 86901; 87040; 87070; 87086; 87205; 87324; 87449; 89051; 93005; 96365; 96375; J0696; J1815; J2405; J3480; J3490; P9016; P9047

== ENCOUNTER 2023-07-13 10:19 | Day surgery (SDC) | payer OTHER ==
[2023-07-13] MEDS ORDERED: Sodium Bicarbonate 2.5 MEQ/5 ML VIAL ONE (10:30)
[2023-07-13] MEDS ORDERED: Albumin 25% 200 ML ONE (10:30)
[2023-07-13] MEDS ORDERED: Lidocaine 1% PF 5 ML VIAL ONE (10:31)
[2023-07-13 13:01] LABS: Hematocrit 30.9 % (36.0-47.0); Hemoglobin 9.5 g/dL (12.0-16.0); Manual Diff?? YES; Mean Corpuscular HGB CONC 30.7 g/dL (32.0-36.0); Mean Corpuscular Hemoglobin 27.1 pg (27.0-31.0); Mean Corpuscular Volume 88.3 fl (78.0-98.0); RBC Distribution Width 17.1 % (11.5-14.5); White Blood Cell (WBC) Count 10.7 10x3/uL (4.8-10.8)
[2023-07-13 13:03] LABS: Delete Auto Diff?? YES; Platelet Count 56 10x3/uL (130-400)
[2023-07-13] MEDS ORDERED: Albumin 25% 25 GM/100 ML BOT IVPB SCH (13:15)
[2023-07-13 13:24] LABS: INR-International Normal Ratio 1.4; Prothrombin Time 17.7 sec (12.0-14.7)
[2023-07-13 13:26] LABS: ALT (SGPT) 15 U/L (8-55); AST (SGOT) 28 U/L (5-34); Albumin 3.8 g/dL (3.5-5.0); Alkaline Phosphatase 104 U/L (40-110); Anion Gap 13 mmol/L (10-20); BUN (Urea Nitrogen) 50 mg/dL (9.8-20.1); Bilirubin, Total 1.1 mg/dL (0.2-1.2); Calc. Creatinine Clearance 0 mL/min (70-130); Calcium 8.4 mg/dL (7.8-10.44); Carbon Dioxide 19 mmol/L (22-29); Chloride 108 mmol/L (98-107); Estimated GFR 29; Globulin 2.2 g/dL (2.4-3.5); Glucose 104 mg/dL (70-105); Magnesium 1.8 mg/dL (1.6-2.6); Potassium 4.5 mmol/L (3.5-5.1); Sodium 135 mmol/L (136-145)
[2023-07-13 13:27] LABS: Anisocytosis SLIGHT = 6-15 cells HPF (0-5); Band 6 % (5-11); Burr Cells SLIGHT = 2-5 cells HPF (0-1); CellaVision Operator ID LAB.MJL; Elliptocytes SLIGHT = 2-5 cells HPF (0-1); Eosinophils 39 % (0-10); Hypochromia SLIGHT = 6-15 cells HPF (0-5); Lymphocytes 4 % (21-51); Microcytosis SLIGHT = 6-15 cells HPF (0-5); Monocytes 3 % (0-10); Neutrophil 45 % (42-75); Ovalocytes SLIGHT = 2-5 cells HPF (0-1); Platelet Adequacy Comment Platelets Decreased; Poikilocytosis SLIGHT = 6-15 cells HPF (0-5); Polychromasia MODERATE = 3-4 cells HPF (0-2); Total Cell Count 94
[2023-07-13 13:51] LABS: RBC Count-Automated (BF) 151 /cu.mm; WBC/Nucleated-Auto (BF) 93 /cu.mm
[2023-07-13 13:54] LABS: BF Color Yellow; Body Fluid Source Ascites Body Fluid; Clarity Hazy (Clear); Tube # EDTA
[2023-07-13 14:20] LABS: BF Segmented Neutrophils 1 %; Cell Count Non Hematic 30 %; Eosinophils 25 %; Lymphocytes 40 %
[2023-07-13 15:38] VITALS: BP 138/76
== END 2023-07-13 12:18 | disposition home or self-care (01) ==
LOC: ULT 10:19
PROVIDERS: ATTEND Internal Medicine Gastroenterology
PROC: 0W9G3ZZ Drainage of Peritoneal Cavity, Percutaneous Approach (ICD-10-PCS; principal; 2023-07-13)
DX: K74.60 Unspecified cirrhosis of liver (principal); R18.8 Other ascites; K72.90 Hepatic failure, unspecified without coma; K65.2 Spontaneous bacterial peritonitis; K31.89 Other diseases of stomach and duodenum; Z88.0 Allergy status to penicillin; Z88.2 Allergy status to sulfonamides; Z88.5 Allergy status to narcotic agent; Z88.8 Allergy status to other drugs, medicaments and biological substances
CPT/HCPCS: 49083; 80053; 82042; 83735; 84157; 85025; 85060; 85610; 87070; 87205; 89051; J1642; P9047

== ENCOUNTER 2023-07-20 10:41 | Day surgery (SDC) | payer OTHER ==
[2023-07-20] MEDS ORDERED: Albumin 25% 200 ML ONE (10:47)
[2023-07-20] MEDS ORDERED: Sodium Bicarbonate 2.5 MEQ/5 ML VIAL ONE (10:47)
[2023-07-20] MEDS ORDERED: Lidocaine 1% PF 5 ML VIAL ONE (10:47)
[2023-07-20 13:29] VITALS: BP 129/83; TEMP 98.6
[2023-07-20 15:38] LABS: RBC Count-Automated (BF) 0 /cu.mm; WBC/Nucleated-Auto (BF) 47 /cu.mm
[2023-07-20 15:55] LABS: BF Color Colorless; Body Fluid Source Ascites Body Fluid; Clarity Hazy (Clear); Tube # EDTA
[2023-07-20 15:56] LABS: BF Segmented Neutrophils 6 %; Cell Count Non Hematic 62 %; Eosinophils 9 %; Lymphocytes 22 %
== END 2023-07-20 12:45 | disposition home or self-care (01) ==
LOC: ULT 10:41
PROVIDERS: ATTEND Internal Medicine Gastroenterology
PROC: 0W9G3ZZ Drainage of Peritoneal Cavity, Percutaneous Approach (ICD-10-PCS; principal; 2023-07-20)
DX: R18.8 Other ascites (principal)
CPT/HCPCS: 49083; 82042; 84155; 85060; 87070; 87205; 89051; J1642; P9047

== ENCOUNTER → 2023-07-27 | Day surgery (SDC) | payer OTHER ==
[~2023-07-27] MED LIST changes: -FLU VACC QS2023-24(6MOS UP)/PF 60 MCG/0.5 ML SYRINGE IM ONE
[2023-07-27 11:36] LABS: Hematocrit 30.4 % (36.0-47.0); Hemoglobin 9.6 g/dL (12.0-16.0); Manual Diff?? YES; Mean Corpuscular HGB CONC 31.6 g/dL (32.0-36.0); Mean Corpuscular Hemoglobin 27.6 pg (27.0-31.0); Mean Corpuscular Volume 87.4 fl (78.0-98.0); RBC Distribution Width 19.1 % (11.5-14.5); Red Blood Cell (RBC) Count 3.48 mill/uL (4.20-5.40); White Blood Cell (WBC) Count 12.1 10x3/uL (4.8-10.8)
[2023-07-27 11:42] LABS: Platelet Count 57 10x3/uL (130-400)
[2023-07-27 11:43] LABS: Delete Auto Diff?? YES
[2023-07-27 12:01] LABS: ALT (SGPT) 15 U/L (8-55); AST (SGOT) 24 U/L (5-34); Albumin 3.3 g/dL (3.5-5.0); Alkaline Phosphatase 120 U/L (40-110); Anion Gap 12 mmol/L (10-20); BUN (Urea Nitrogen) 62 mg/dL (9.8-20.1); Bilirubin, Total 1.1 mg/dL (0.2-1.2); Calc. Creatinine Clearance 0 mL/min (70-130); Calcium 8.4 mg/dL (7.8-10.44); Carbon Dioxide 18 mmol/L (22-29); Chloride 112 mmol/L (98-107); Estimated GFR 22; Globulin 2.5 g/dL (2.4-3.5); Glucose 216 mg/dL (70-105); INR-International Normal Ratio 1.5; Magnesium 1.7 mg/dL (1.6-2.6); Protein, Total 5.8 g/dL (6.0-8.3); Prothrombin Time 18.3 sec (12.0-14.7); Sodium 138 mmol/L (136-145)
[2023-07-27 12:23] LABS: Band 2 % (5-11); Burr Cells SLIGHT = 2-5 cells HPF (0-1); CellaVision Operator ID LAB.GE; Eosinophils 61 % (0-10); Lymphocytes 3 % (21-51); Monocytes 7 % (0-10); Neutrophil 26 % (42-75); Platelet Adequacy Comment Platelets Decreased; Polychromasia SLIGHT = 2-3 cells HPF (0-2); Schistocytes SLIGHT = 2-5 cells HPF (0-1); Total Cell Count 112
[2023-07-27 17:25] LABS: RBC Count-Automated (BF) 59 /cu.mm; WBC/Nucleated-Auto (BF) 24 /cu.mm
[2023-07-27 17:26] LABS: BF Color Colorless; Body Fluid Source Ascites Body Fluid; Clarity Hazy (Clear); Tube # EDTA
[2023-07-27 18:26] LABS: Cell Count Non Hematic 36 %; Eosinophils 26 %; Lymphocytes 35 %
== END ==
LOC: ULT 10:43
PROVIDERS: ATTEND Internal Medicine Gastroenterology
PROC: 0W9G30Z Drainage of Peritoneal Cavity with Drainage Device, Percutaneous Approach (ICD-10-PCS; principal; 2023-07-27)
DX: R18.8 Other ascites (principal)
CPT/HCPCS: 49083; 80053; 82042; 83735; 84157; 85025; 85060; 85610; 87070; 87205; 89051; J1642; P9047

== ENCOUNTER 2023-07-28 10:15 | Inpatient (IN) | payer OTHER ==
[2023-07-28 12:47] LABS: #Basophils 0.1 thou/uL (0.0-0.2); #Eosinphils 0.6 thou/uL (0.0-0.7); #Monocytes 0.4 thou/uL (0.11-0.59); #Neutrophils 2.9 thou/uL (1.40-6.50); %Basophils 1.6 % (0.0-1.0); %Eosinophils 13.8 % (0.0-10.0); %Lymphocytes 6.5 % (21.0-51.0); %Monocytes 9.3 % (0.0-10.0); %Neutrophils 68.6 % (42.0-75.0); Hemoglobin 9.5 g/dL (12.0-16.0); Mean Corpuscular HGB CONC 31.7 g/dL (32.0-36.0); Mean Corpuscular Hemoglobin 27.7 pg (27.0-31.0); Mean Corpuscular Volume 87.5 fl (78.0-98.0); RBC Distribution Width 19.1 % (11.5-14.5); Red Blood Cell (RBC) Count 3.43 mill/uL (4.20-5.40); White Blood Cell (WBC) Count 4.3 10x3/uL (4.8-10.8)
[2023-07-28 12:58] LABS: Platelet Count 54 10x3/uL (130-400)
[2023-07-28 13:03] LABS: ALT (SGPT) 16 U/L (8-55); AST (SGOT) 23 U/L (5-34); Albumin 3.3 g/dL (3.5-5.0); Alkaline Phosphatase 99 U/L (40-110); Anion Gap 14 mmol/L (10-20); BUN (Urea Nitrogen) 55 mg/dL (9.8-20.1); Calc. Creatinine Clearance 0 mL/min (70-130); Calcium 8.6 mg/dL (7.8-10.44); Carbon Dioxide 16 mmol/L (22-29); Chloride 113 mmol/L (98-107); Estimated GFR 27; Globulin 2.3 g/dL (2.4-3.5); Glucose 241 mg/dL (70-105); Potassium 4.3 mmol/L (3.5-5.1); Protein, Total 5.6 g/dL (6.0-8.3); Sodium 139 mmol/L (136-145)
[2023-07-28] MEDS ORDERED: Ondansetron ODT 4 MG TAB PO PRN (15:56)
[2023-07-28] MEDS ORDERED: traMADol HCl 50 MG TAB PO PRN (15:56)
[2023-07-28] MEDS ORDERED: Lactated Ringer's 500 ML IV SCH (16:00)
[2023-07-28 16:21] VITALS: BMI 26.1
[2023-07-28] MEDS ORDERED: Glucagon 1 MG/ML KIT IM PRN (17:00)
[2023-07-28] MEDS ORDERED: HumaLOG 300 UNITS/3 ML VIAL SC SCH (17:00)
[2023-07-28] MEDS ORDERED: Dextrose 5% in Water 1,000 ML IV PRN (17:00)
[2023-07-28] MEDS ORDERED: Dextrose 50% Abboject 50 ML SYRINGE IVP PRN (17:00)
[2023-07-28] MEDS: Ferrous Sulfate 325 MG TAB PO SCH (17:28)
[2023-07-28] MEDS: HumaLOG 300 UNITS/3 ML VIAL SC SCH (17:28)
[2023-07-28] MEDS: Rifaximin 200 MG TAB PO SCH (20:32)
[2023-07-28] MEDS: Sodium Bicarbonate Tab 325 MG TAB PO SCH (20:32)
[2023-07-28] MEDS: Vancomycin HCl 125 MG Capsule PO SCH (20:33)
[2023-07-28] MEDS: Cholecalciferol 1,000 UNITS (25 MCG) TAB PO SCH (20:33)
[2023-07-28] MEDS: busPIRone HCl 10 MG TAB PO SCH (20:33)
[2023-07-28] MEDS: Midodrine HCl 5 MG TAB PO SCH (20:34)
[2023-07-28] MEDS ORDERED: Melatonin 3 MG TAB PO SCH (21:00)
[2023-07-28] MEDS ORDERED: Famotidine 20 MG TAB PO SCH (21:00)
[2023-07-28] MEDS ORDERED: Loratadine 10 MG TAB PO SCH (21:00)
[2023-07-29] MEDS ORDERED: Ciprofloxacin 500 MG TAB PO SCH (06:00)
[2023-07-29 06:11] LABS: #Basophils 0.2 thou/uL (0.0-0.2); #Eosinphils 6.6 thou/uL (0.0-0.7); #Monocytes 0.6 thou/uL (0.11-0.59); #Neutrophils 1.8 thou/uL (1.40-6.50); %Basophils 1.6 % (0.0-1.0); %Lymphocytes 6.2 % (21.0-51.0); %Monocytes 6.1 % (0.0-10.0); Hematocrit 28.6 % (36.0-47.0); Hemoglobin 9.1 g/dL (12.0-16.0); Manual Diff?? YES; Mean Corpuscular HGB CONC 31.8 g/dL (32.0-36.0); Mean Corpuscular Hemoglobin 27.6 pg (27.0-31.0); Mean Corpuscular Volume 86.7 fl (78.0-98.0); RBC Distribution Width 19.4 % (11.5-14.5); White Blood Cell (WBC) Count 9.7 10x3/uL (4.8-10.8)
[2023-07-29 06:15] LABS: Platelet Count 44 10x3/uL (130-400)
[2023-07-29] MEDS ORDERED: Mometasone 100 MCG/PUFF (1 INHALER) INH SCH (06:30)
[2023-07-29 06:35] LABS: ALT (SGPT) 13 U/L (8-55); AST (SGOT) 28 U/L (5-34); Albumin 2.8 g/dL (3.5-5.0); Alkaline Phosphatase 88 U/L (40-110); Anion Gap 12 mmol/L (10-20); BUN (Urea Nitrogen) 57 mg/dL (9.8-20.1); Bilirubin, Total 2.3 mg/dL (0.2-1.2); Calc. Creatinine Clearance 36 mL/min (70-130); Calcium 8.5 mg/dL (7.8-10.44); Carbon Dioxide 18 mmol/L (22-29); Chloride 116 mmol/L (98-107); Estimated GFR 30; Globulin 2.2 g/dL (2.4-3.5); Glucose 86 mg/dL (70-105); Potassium 3.7 mmol/L (3.5-5.1); Sodium 142 mmol/L (136-145)
[2023-07-29 06:46] LABS: Anisocytosis MODERATE=16-30 cells HPF (0-5); CellaVision Operator ID lab.sh2; Eosinophils 56 % (0-10); Lymphocytes 4 % (21-51); Macrocytosis SLIGHT = 6-15 cells HPF (0-5); Monocytes 3 % (0-10); Neutrophil 34 % (42-75); Ovalocytes SLIGHT = 2-5 cells HPF (0-1); Platelet Adequacy Comment Significant decrease; Polychromasia SLIGHT = 2-3 cells HPF (0-2); Smudge Cells 39.4 %; Total Cell Count 99
[2023-07-29] MEDS ORDERED: Benzocaine/Menthol 1 LOZ LOZ PO PRN (08:30)
[2023-07-29 08:32] VITALS: BP 122/76; TEMP 98.3
[2023-07-29] MEDS: Rifaximin 200 MG TAB PO SCH (08:47)
[2023-07-29] MEDS: Sodium Bicarbonate Tab 325 MG TAB PO SCH (08:47)
[2023-07-29] MEDS: Ferrous Sulfate 325 MG TAB PO SCH (08:48)
[2023-07-29] MEDS: Cholecalciferol 1,000 UNITS (25 MCG) TAB PO SCH (08:48)
[2023-07-29] MEDS: Vancomycin HCl 125 MG Capsule PO SCH (08:48)
[2023-07-29] MEDS: busPIRone HCl 10 MG TAB PO SCH (08:48)
[2023-07-29] MEDS: HumaLOG 300 UNITS/3 ML VIAL SC SCH ×2 (08:48→14:06)
[2023-07-29] MEDS: Midodrine HCl 5 MG TAB PO SCH ×2 (08:48→14:05)
[2023-07-29] MEDS ORDERED: Cyanocobalamin (Vitamin B-12) 1,000 MCG TAB PO SCH (09:00)
[2023-07-29] MEDS ORDERED: Atorvastatin Calcium 10 MG TAB PO SCH (09:00)
[2023-07-29] MEDS ORDERED: BuPROPion XL 150 MG ER.TAB PO SCH (09:00)
[2023-07-29] MEDS ORDERED: Insulin Glargine 30 UNITS/0.3 ML VIAL SC SCH (09:00)
[2023-07-29] MEDS ORDERED: Magnesium Oxide 250 MG TAB PO SCH (09:00)
[2023-07-29] MEDS ORDERED: Folic Acid 1 MG TAB PO SCH (09:00)
[2023-08-03] MEDS ORDERED: Vancomycin HCl 125 MG Capsule PO SCH (09:00)
[2023-08-08] MEDS ORDERED: Vancomycin HCl 125 MG Capsule PO SCH (09:00)
== END 2023-07-29 15:33 | disposition home or self-care (01) | DRG 442 ==
LOC: ERS 10:15 → T4-A 16:02
PROVIDERS: ADMIT Family Medicine; ATTEND Family Medicine
DX: K76.82 Hepatic encephalopathy (principal); D61.818 Other pancytopenia; K72.10 Chronic hepatic failure without coma; K70.31 Alcoholic cirrhosis of liver with ascites; E11.22 Type 2 diabetes mellitus with diabetic chronic kidney disease; N18.30 Chronic kidney disease, stage 3 unspecified; Z88.2 Allergy status to sulfonamides; Z91.048 Other nonmedicinal substance allergy status; Z88.8 Allergy status to other drugs, medicaments and biological substances; Z79.899 Other long term (current) drug therapy; K21.9 Gastro-esophageal reflux disease without esophagitis; F32.A Depression, unspecified; B96.89 Other specified bacterial agents as the cause of diseases classified elsewhere; F41.9 Anxiety disorder, unspecified; Z90.49 Acquired absence of other specified parts of digestive tract; Z90.89 Acquired absence of other organs; Z98.890 Other specified postprocedural states; Z87.891 Personal history of nicotine dependence; J02.9 Acute pharyngitis, unspecified
CPT/HCPCS: 36416; 49083; 70450; 71045; 80053; 82042; 82140; 83735; 84157; 85025; 85060; 85610; 87070; 87205; 89051; 93005; J1642; J1815; J7120; P9047

== ENCOUNTER → 2023-08-03 | Day surgery (SDC) | payer OTHER ==
[~2023-08-03] MED LIST changes: +Albumin 25% 25 GM/100 ML BOT IVPB SCH; -Sodium Bicarbonate 2.5 MEQ/5 ML VIAL ONE
[2023-08-03 13:29] VITALS: BP 142/87
[2023-08-03 14:09] LABS: RBC Count-Automated (BF) 0 /cu.mm; WBC/Nucleated-Auto (BF) 35 /cu.mm
[2023-08-03 14:18] LABS: BF Color Colorless; Body Fluid Source Ascites Body Fluid; Clarity Hazy (Clear); Tube # EDTA
[2023-08-03 14:21] LABS: BF Segmented Neutrophils 2 %; Cell Count Non Hematic 48 %; Eosinophils 17 %; Lymphocytes 33 %
== END ==
LOC: ULT 10:25
PROVIDERS: ATTEND Internal Medicine Gastroenterology
PROC: 0W9G3ZZ Drainage of Peritoneal Cavity, Percutaneous Approach (ICD-10-PCS; principal; 2023-08-03)
DX: K74.60 Unspecified cirrhosis of liver (principal); R18.8 Other ascites; K72.90 Hepatic failure, unspecified without coma; K65.2 Spontaneous bacterial peritonitis; K31.819 Angiodysplasia of stomach and duodenum without bleeding; Z88.5 Allergy status to narcotic agent; Z88.0 Allergy status to penicillin; Z88.2 Allergy status to sulfonamides; Z88.8 Allergy status to other drugs, medicaments and biological substances
CPT/HCPCS: 49083; 82042; 84157; 85060; 87070; 87205; 89051; J1642; P9047

== ENCOUNTER 2023-08-08 18:31 | Inpatient (IN) | payer OTHER ==
[2023-08-08 19:14] LABS: Hematocrit 31.7 % (36.0-47.0); Hemoglobin 10.3 g/dL (12.0-16.0); Manual Diff?? YES; Mean Corpuscular HGB CONC 32.5 g/dL (32.0-36.0); Mean Corpuscular Hemoglobin 27.8 pg (27.0-31.0); Mean Corpuscular Volume 85.4 fl (78.0-98.0); RBC Distribution Width 18.1 % (11.5-14.5); Red Blood Cell (RBC) Count 3.71 mill/uL (4.20-5.40); White Blood Cell (WBC) Count 4.9 10x3/uL (4.8-10.8)
[2023-08-08 19:18] LABS: Platelet Count 43 10x3/uL (130-400)
[2023-08-08 19:19] LABS: Delete Auto Diff?? YES
[2023-08-08 19:23] LABS: BHCG - Serum Negative (NEGATIVE); Pregs Control Background? CLEAR/WHITE (CLR/WHITE); Pregs Control Bar Appear? YES (CONTROL BAR)
[2023-08-08 19:32] LABS: Troponin I Less than 0.010 ng/mL (< 0.028)
[2023-08-08 19:40] LABS: Anisocytosis SLIGHT = 6-15 cells HPF (0-5); Band 9 % (5-11); CellaVision Operator ID LAB.MJL; Eosinophils 21 % (0-10); Hypochromia SLIGHT = 6-15 cells HPF (0-5); Lymphocytes 5 % (21-51); Monocytes 5 % (0-10); Neutrophil 52 % (42-75); Ovalocytes SLIGHT = 2-5 cells HPF (0-1); Platelet Adequacy Comment Platelets Decreased; Poikilocytosis SLIGHT = 6-15 cells HPF (0-5); Polychromasia SLIGHT = 2-3 cells HPF (0-2); Reactive Lymphocytes 4 % (0-10); Schistocytes SLIGHT = 2-5 cells HPF (0-1); Tear Drops SLIGHT = 2-5 cells HPF (0-1); Total Cell Count 100
[2023-08-08 19:42] LABS: ALT (SGPT) 14 U/L (8-55); AST (SGOT) 25 U/L (5-34); Acetaminophen Less than 10 mcg/mL (10.0-30.0); Albumin 3.3 g/dL (3.5-5.0); Alcohol Less than 10.0 mg/dL (Less than 10); Alkaline Phosphatase 127 U/L (40-110); Anion Gap 12 mmol/L (10-20); BUN (Urea Nitrogen) 50 mg/dL (9.8-20.1); Bilirubin, Total 1.5 mg/dL (0.2-1.2); CK (CPK) 42 U/L (29-168); Calc. Creatinine Clearance 0 mL/min (70-130); Calcium 8.8 mg/dL (7.8-10.44); Carbon Dioxide 20 mmol/L (22-29); Chloride 118 mmol/L (98-107); Estimated GFR 28; Globulin 2.4 g/dL (2.4-3.5); Glucose 165 mg/dL (70-105); Potassium 3.9 mmol/L (3.5-5.1); Protein, Total 5.7 g/dL (6.0-8.3); Salicylate Less than 8.0 mg/dL (15.0-30.0); Sodium 146 mmol/L (136-145)
[2023-08-08] MEDS ORDERED: Lactulose 10 GM/15 ML Oral Solution PR SCH (21:00)
[2023-08-08 21:07] LABS: Amphetamine Not Detected (NotDetected); Barbiturates Screen Not Detected (NotDetected); Benzodiazepine Screen Not Detected (NotDetected); Cocaine Metabolite Screen Not Detected (NotDetected); Methadone Not Detected (NotDetected); Methamphetamine Not Detected (NotDetected); Opiate Screen Not Detected (NotDetected); Oxycodone Screen Not Detected (NotDetected); Phencyclidine (PCP) Not Detected (NotDetected); THC/Cannabinoid Screen Not Detected (NotDetected); Tricyclic Screen Not Detected (NotDetected)
[2023-08-08 21:08] LABS: Bilirubin Negative (Negative); Blood, Urine Trace (Negative); CAUTI Indications for Culture Alt mental st,lethar; Clarity Clear (Clear); Glucose, Urine (Dipstick) Normal (Negative); Ketone, Urine Negative (Negative); Leukocyte 250 Leu/uL (Negative); Nitrite Negative (Negative); Protein, Urine (Dipstick) Negative (Neg-Trace); Renal Epithelial 0-3 HPF (None Seen); Squamous Epithelial 0-3 HPF (0-3); Transitional Epithelial 0-3 HPF (None Seen); Urobilinogen Normal mg/dL (Less than 2); pH, Urine 5.5 (5.0-9.0)
[2023-08-08 21:17] LABS: Bacteria/HPF Rare-Few HPF (None Seen)
[2023-08-08 21:26] LABS: Calcium Oxalate Crystals Rare HPF (None Seen); Urine Culture Reflex No No
[2023-08-08 23:37] LABS: RBC Count-Automated (BF) 224 /cu.mm; WBC/Nucleated-Auto (BF) 0 /cu.mm
[2023-08-09 00:10] LABS: Body Fluid Source Ascites Body Fluid; Tube # EDTA
[2023-08-09 00:11] LABS: BF Color Yellow; Clarity Clear (Clear)
[2023-08-09] MEDS ORDERED: Albumin 25% 25 GM/100 ML BOT IVPB SCH (00:45)
[2023-08-09] MEDS ORDERED: Albuterol 200 PUFF (6.7GM INHALER) INH PRN (01:34)
[2023-08-09] MEDS ORDERED: Dextrose 50% Abboject 50 ML SYRINGE SLOW IVP PRN (01:39)
[2023-08-09] MEDS ORDERED: Glucagon 1 MG/ML KIT IM PRN (01:39)
[2023-08-09] MEDS ORDERED: HumaLOG 300 UNITS/3 ML VIAL SC PRN ×2 (01:39)
[2023-08-09] MEDS ORDERED: Dextrose 5% in Water 1,000 ML IV PRN (01:39)
[2023-08-09] MEDS ORDERED: Ondansetron ODT 4 MG TAB PO PRN (02:30)
[2023-08-09 04:48] LABS: Hematocrit 29.1 % (36.0-47.0); Hemoglobin 9.3 g/dL (12.0-16.0); Manual Diff?? YES; Mean Corpuscular Hemoglobin 27.5 pg (27.0-31.0); Mean Corpuscular Volume 86.1 fl (78.0-98.0); RBC Distribution Width 18.2 % (11.5-14.5); Red Blood Cell (RBC) Count 3.38 mill/uL (4.20-5.40); White Blood Cell (WBC) Count 4.9 10x3/uL (4.8-10.8)
[2023-08-09 04:59] LABS: Delete Auto Diff?? YES; Platelet Count 35 10x3/uL (130-400)
[2023-08-09 05:10] LABS: Phosphorus 3.7 mg/dL (2.3-4.7)
[2023-08-09 05:14] LABS: ALT (SGPT) 14 U/L (8-55); AST (SGOT) 22 U/L (5-34); Alkaline Phosphatase 102 U/L (40-110); Anion Gap 13 mmol/L (10-20); BUN (Urea Nitrogen) 49 mg/dL (9.8-20.1); Bilirubin, Total 1.8 mg/dL (0.2-1.2); Calc. Creatinine Clearance 35 mL/min (70-130); Calcium 8.7 mg/dL (7.8-10.44); Carbon Dioxide 19 mmol/L (22-29); Chloride 120 mmol/L (98-107); Estimated GFR 31; Globulin 2.2 g/dL (2.4-3.5); Glucose 131 mg/dL (70-105); Magnesium 1.7 mg/dL (1.6-2.6); Potassium 3.1 mmol/L (3.5-5.1); Protein, Total 5.2 g/dL (6.0-8.3); Sodium 149 mmol/L (136-145)
[2023-08-09] MEDS ORDERED: Lactulose 10 GM/15 ML Oral Solution PR SCH (06:00)
[2023-08-09] MEDS ORDERED: Vancomycin HCl 125 MG Capsule PO SCH (09:00)
[2023-08-09] MEDS ORDERED: Sodium Bicarbonate Tab 325 MG TAB PO SCH (09:00)
[2023-08-09] MEDS: BuPROPion XL 150 MG ER.TAB PO SCH (09:02)
[2023-08-09] MEDS: Midodrine HCl 5 MG TAB PO SCH ×3 (09:02→21:36)
[2023-08-09] MEDS: Rifaximin 200 MG TAB PO SCH ×2 (09:02→21:36)
[2023-08-09] MEDS: Cyanocobalamin (Vitamin B-12) 1,000 MCG TAB PO SCH (09:03)
[2023-08-09] MEDS: Magnesium Oxide 250 MG TAB PO SCH (09:03)
[2023-08-09] MEDS: busPIRone HCl 10 MG TAB PO SCH ×2 (09:03→21:36)
[2023-08-09] MEDS: Atorvastatin Calcium 10 MG TAB PO SCH (09:03)
[2023-08-09] MEDS: Folic Acid 1 MG TAB PO SCH (09:03)
[2023-08-09] MEDS: Ciprofloxacin 500 MG TAB PO SCH (09:03)
[2023-08-09] MEDS: Insulin Glargine 30 UNITS/0.3 ML VIAL SC SCH ×2 (09:03→09:14)
[2023-08-09] MEDS: Cholecalciferol 1,000 UNITS (25 MCG) TAB PO SCH ×2 (09:03→21:36)
[2023-08-09] MEDS: Ferrous Sulfate 325 MG TAB PO SCH ×2 (09:03→21:35)
[2023-08-09] MEDS: Pantoprazole 40 MG VIAL IVP SCH ×2 (09:06→21:36)
[2023-08-09] MEDS ORDERED: Potassium Chloride 20 MEQ TAB PO SCH (09:30)
[2023-08-09 11:30] LABS: Band 1 % (5-11); Eosinophils 28 % (0-10); Lymphocytes 14 % (21-51); Monocytes 2 % (0-10); Neutrophil 54 % (42-75)
[2023-08-09 11:31] LABS: Hypochromia SLIGHT = 6-15 cells (100X) (0-5/hpf); Polychromasia SLIGHT = 2-3 cells (100X) (0-2/hpf)
[2023-08-09 11:32] LABS: Platelet Adequacy Comment Significant decrease
[2023-08-09 13:47] VITALS: BMI 25.0
[2023-08-09 14:07] LABS: Anion Gap 15 mmol/L (10-20); BUN (Urea Nitrogen) 48 mg/dL (9.8-20.1); Calc. Creatinine Clearance 34 mL/min (70-130); Calcium 8.8 mg/dL (7.8-10.44); Carbon Dioxide 17 mmol/L (22-29); Chloride 122 mmol/L (98-107); Estimated GFR 30; Glucose 137 mg/dL (70-105); Potassium 3.5 mmol/L (3.5-5.1); Sodium 150 mmol/L (136-145)
[2023-08-09] MEDS ORDERED: Mometasone Furoate 30 PUFF 220 MCG INH SCH (18:30)
[2023-08-09] MEDS: Dextrose 5% in Water 1,000 ML IV SCH (19:04)
[2023-08-09] MEDS ORDERED: Melatonin 3 MG TAB PO SCH (21:00)
[2023-08-09] MEDS: traMADol HCl 50 MG TAB PO PRN (21:35)
[2023-08-10 07:44] VITALS: BP 132/65; TEMP 98.4
[2023-08-10] MEDS: Rifaximin 200 MG TAB PO SCH (08:12)
[2023-08-10] MEDS: BuPROPion XL 150 MG ER.TAB PO SCH (08:13)
[2023-08-10] MEDS: Cyanocobalamin (Vitamin B-12) 1,000 MCG TAB PO SCH (08:13)
[2023-08-10] MEDS: busPIRone HCl 10 MG TAB PO SCH (08:13)
[2023-08-10] MEDS: Cholecalciferol 1,000 UNITS (25 MCG) TAB PO SCH (08:13)
[2023-08-10] MEDS: Ferrous Sulfate 325 MG TAB PO SCH (08:13)
[2023-08-10] MEDS: Ciprofloxacin 500 MG TAB PO SCH (08:13)
[2023-08-10] MEDS: Folic Acid 1 MG TAB PO SCH (08:13)
[2023-08-10] MEDS: Atorvastatin Calcium 10 MG TAB PO SCH (08:13)
[2023-08-10] MEDS: Midodrine HCl 5 MG TAB PO SCH (08:13)
[2023-08-10] MEDS: Pantoprazole 40 MG VIAL IVP SCH (08:14)
[2023-08-10] MEDS: Magnesium Oxide 250 MG TAB PO SCH (08:14)
[2023-08-10] MEDS: Insulin Glargine 30 UNITS/0.3 ML VIAL SC SCH (08:15)
[2023-08-10] MEDS: traMADol HCl 50 MG TAB PO PRN (08:15)
[2023-08-10 08:36] LABS: Hematocrit 28.1 % (36.0-47.0); Hemoglobin 8.9 g/dL (12.0-16.0); Manual Diff?? YES; Mean Corpuscular HGB CONC 31.7 g/dL (32.0-36.0); Mean Corpuscular Hemoglobin 27.6 pg (27.0-31.0); Mean Corpuscular Volume 87.3 fl (78.0-98.0); RBC Distribution Width 17.8 % (11.5-14.5); Red Blood Cell (RBC) Count 3.22 mill/uL (4.20-5.40); White Blood Cell (WBC) Count 5.9 10x3/uL (4.8-10.8)
[2023-08-10] MEDS: Dextrose 5% in Water 1,000 ML IV SCH (08:45)
[2023-08-10 08:59] LABS: ALT (SGPT) 12 U/L (8-55); AST (SGOT) 24 U/L (5-34); Albumin 2.9 g/dL (3.5-5.0); Alkaline Phosphatase 108 U/L (40-110); Anion Gap 9 mmol/L (10-20); BUN (Urea Nitrogen) 46 mg/dL (9.8-20.1); Bilirubin, Total 1.7 mg/dL (0.2-1.2); Calc. Creatinine Clearance 31 mL/min (70-130); Carbon Dioxide 20 mmol/L (22-29); Chloride 114 mmol/L (98-107); Estimated GFR 27; Globulin 2.1 g/dL (2.4-3.5); Glucose 172 mg/dL (70-105); Potassium 3.2 mmol/L (3.5-5.1); Sodium 140 mmol/L (136-145)
[2023-08-10 09:04] LABS: Delete Auto Diff?? YES; Platelet Count 41 10x3/uL (130-400)
[2023-08-10] MEDS ORDERED: Potassium Chloride 20 MEQ TAB PO SCH (09:30)
[2023-08-10 09:36] LABS: Band 3 % (5-11); CellaVision Operator ID LAB.GE; Eosinophils 42 % (0-10); Large Platelets 3.9 % (0-5); Lymphocytes 9 % (21-51); Macrocytosis SLIGHT = 6-15 cells HPF (0-5); Monocytes 7 % (0-10); Neutrophil 37 % (42-75); Platelet Adequacy Comment Platelets Decreased; Polychromasia SLIGHT = 2-3 cells HPF (0-2); Total Cell Count 102
[2023-08-12] MEDS ORDERED: FLU VACC QS2023(65UP)/MF59C/PF 60 MCG/0.5 ML SYRINGE IM ONE (09:00)
== END 2023-08-10 11:00 | disposition home or self-care (01) | DRG 442 ==
LOC: ERS 18:31 → T4-A 20:50
PROVIDERS: ADMIT Student in an Organized Health Care Education/Training Program; ATTEND Student in an Organized Health Care Education/Training Program
PROC: 0W9G3ZZ Drainage of Peritoneal Cavity, Percutaneous Approach (ICD-10-PCS; principal; 2023-08-08)
PROC: 30233J1 Transfusion of Nonautologous Serum Albumin into Peripheral Vein, Percutaneous Approach (ICD-10-PCS; 2023-08-08)
DX: K76.82 Hepatic encephalopathy (principal); D61.818 Other pancytopenia; E87.0 Hyperosmolality and hypernatremia; N18.4 Chronic kidney disease, stage 4 (severe); N17.9 Acute kidney failure, unspecified; E87.20 Acidosis, unspecified; E87.1 Hypo-osmolality and hyponatremia; K21.9 Gastro-esophageal reflux disease without esophagitis; J45.909 Unspecified asthma, uncomplicated; F32.A Depression, unspecified; E11.22 Type 2 diabetes mellitus with diabetic chronic kidney disease; F41.9 Anxiety disorder, unspecified; E78.5 Hyperlipidemia, unspecified; K72.10 Chronic hepatic failure without coma; E87.8 Other disorders of electrolyte and fluid balance, not elsewhere classified; K70.31 Alcoholic cirrhosis of liver with ascites; B96.89 Other specified bacterial agents as the cause of diseases classified elsewhere; E87.6 Hypokalemia; Z88.2 Allergy status to sulfonamides; Z88.5 Allergy status to narcotic agent; Z98.890 Other specified postprocedural states; Z90.49 Acquired absence of other specified parts of digestive tract; Z79.51 Long term (current) use of inhaled steroids; Z79.4 Long term (current) use of insulin; Z87.891 Personal history of nicotine dependence
CPT/HCPCS: 36415; 36416; 70450; 71045; 72125; 80053; 80306; 80307; 81001; 82042; 82140; 82550; 83690; 83735; 84100; 84484; 84703; 85025; 87040; 87070; 87205; 89051; 93005; J1815; J7070; P9047

== ENCOUNTER 2023-08-24 10:33 | Day surgery (SDC) | payer OTHER ==
[2023-08-24] MEDS ORDERED: Sodium Bicarbonate 2.5 MEQ/5 ML VIAL ONE (10:41)
[2023-08-24] MEDS ORDERED: Lidocaine 1% PF 5 ML VIAL ONE (10:41)
[2023-08-24] MEDS ORDERED: Albumin 25% 200 ML ONE (10:41)
[2023-08-24 11:39] LABS: #Basophils 0.1 thou/uL (0.0-0.2); #Eosinphils 0.9 thou/uL (0.0-0.7); #Monocytes 0.4 thou/uL (0.11-0.59); %Basophils 1.6 % (0.0-1.0); %Lymphocytes 11.4 % (21.0-51.0); %Monocytes 11.1 % (0.0-10.0); %Neutrophils 52.6 % (42.0-75.0); Hematocrit 28.2 % (36.0-47.0); Hemoglobin 8.9 g/dL (12.0-16.0); Mean Corpuscular HGB CONC 31.6 g/dL (32.0-36.0); Mean Corpuscular Volume 88.7 fl (78.0-98.0); RBC Distribution Width 17.8 % (11.5-14.5); Red Blood Cell (RBC) Count 3.18 mill/uL (4.20-5.40); White Blood Cell (WBC) Count 3.9 10x3/uL (4.8-10.8)
[2023-08-24 11:41] LABS: Platelet Count 46 10x3/uL (130-400)
[2023-08-24 11:49] LABS: INR-International Normal Ratio 1.4; Prothrombin Time 17.7 sec (12.0-14.7)
[2023-08-24 11:53] LABS: ALT (SGPT) 21 U/L (8-55); AST (SGOT) 38 U/L (5-34); Alkaline Phosphatase 132 U/L (40-110); Anion Gap 12 mmol/L (10-20); BUN (Urea Nitrogen) 43 mg/dL (9.8-20.1); Bilirubin, Total 1.3 mg/dL (0.2-1.2); Calc. Creatinine Clearance 0 mL/min (70-130); Carbon Dioxide 18 mmol/L (22-29); Chloride 113 mmol/L (98-107); Estimated GFR 30; Globulin 2.6 g/dL (2.4-3.5); Glucose 157 mg/dL (70-105); Magnesium 1.7 mg/dL (1.6-2.6); Potassium 3.7 mmol/L (3.5-5.1); Protein, Total 5.6 g/dL (6.0-8.3); Sodium 139 mmol/L (136-145)
[2023-08-24 12:52] VITALS: BP 141/81
[2023-08-24 13:25] LABS: RBC Count-Automated (BF) 84 /cu.mm; WBC/Nucleated-Auto (BF) 36 /cu.mm
[2023-08-24 13:37] LABS: BF Color Yellow; Body Fluid Source Ascites Body Fluid; Clarity Hazy (Clear); Tube # EDTA
[2023-08-24 13:48] LABS: BF Segmented Neutrophils 1 %; Cell Count Non Hematic 72 %; Lymphocytes 27 %
== END 2023-08-24 12:22 | disposition home or self-care (01) ==
LOC: ULT 10:33
PROVIDERS: ATTEND Internal Medicine Gastroenterology
PROC: 0W9G30Z Drainage of Peritoneal Cavity with Drainage Device, Percutaneous Approach (ICD-10-PCS; principal; 2023-08-24)
DX: R18.8 Other ascites (principal); M79.671 Pain in right foot; M79.642 Pain in left hand
CPT/HCPCS: 49083; 80053; 82042; 83735; 84157; 85025; 85060; 85610; 87070; 87205; 89051; J1642; P9047

== ENCOUNTER 2023-08-31 10:43 | Day surgery (SDC) | payer OTHER ==
[2023-08-31] MEDS ORDERED: Lidocaine 1% PF 5 ML VIAL ONE (11:20)
[2023-08-31] MEDS ORDERED: Albumin 25% 200 ML ONE (11:21)
[2023-08-31] MEDS ORDERED: Sodium Bicarbonate 2.5 MEQ/5 ML SDV ONE (11:21)
[2023-08-31 14:55] LABS: RBC Count-Automated (BF) 0 /cu.mm; WBC/Nucleated-Auto (BF) 108 /cu.mm
[2023-08-31 15:38] LABS: BF Color Colorless; Body Fluid Source Ascites Body Fluid; Clarity Hazy (Clear); Tube # EDTA
[2023-08-31 15:40] LABS: Cell Count Non Hematic 67 %; Lymphocytes 31 %
[2023-08-31 15:53] VITALS: BP 150/77; TEMP 97.4
== END 2023-08-31 13:00 | disposition home or self-care (01) ==
LOC: ULT 10:43
PROVIDERS: ATTEND Internal Medicine Gastroenterology
PROC: 0W9G30Z Drainage of Peritoneal Cavity with Drainage Device, Percutaneous Approach (ICD-10-PCS; principal; 2023-08-31)
DX: R18.8 Other ascites (principal)
CPT/HCPCS: 49083; 82042; 84157; 85060; 87070; 87205; 89051; J1642; P9047

== ENCOUNTER 2023-09-01 02:44 | Inpatient (IN) | payer OTHER ==
[2023-09-01] MEDS ORDERED: Lactulose 20 GM (30 mL) UDCUP ONE (03:47)
[2023-09-01 03:59] LABS: SARS-CoV-2 NAA Rapid Test Not Detected (NotDetected)
[2023-09-01 04:22] LABS: #Eosinphils 0.3 thou/uL (0.0-0.7); #Monocytes 0.3 thou/uL (0.11-0.59); #Neutrophils 1.4 thou/uL (1.40-6.50); %Basophils 1.6 % (0.0-1.0); %Eosinophils 13.6 % (0.0-10.0); %Lymphocytes 15.6 % (21.0-51.0); %Monocytes 12.8 % (0.0-10.0); %Neutrophils 56.4 % (42.0-75.0); Hematocrit 30.2 % (36.0-47.0); Hemoglobin 9.3 g/dL (12.0-16.0); Mean Corpuscular HGB CONC 30.8 g/dL (32.0-36.0); Mean Corpuscular Hemoglobin 27.9 pg (27.0-31.0); Mean Corpuscular Volume 90.7 fl (78.0-98.0); RBC Distribution Width 17.2 % (11.5-14.5); Red Blood Cell (RBC) Count 3.33 mill/uL (4.20-5.40); White Blood Cell (WBC) Count 2.4 10x3/uL (4.8-10.8)
[2023-09-01 04:59] LABS: Platelet Count 26 10x3/uL (130-400)
[2023-09-01 05:08] LABS: ALT (SGPT) 18 U/L (8-55); AST (SGOT) 31 U/L (5-34); Acetaminophen Less than 10 mcg/mL (10.0-30.0); Albumin 3.3 g/dL (3.5-5.0); Alcohol Less than 10.0 mg/dL (Less than 10); Alkaline Phosphatase 113 U/L (40-110); Anion Gap 15 mmol/L (10-20); BUN (Urea Nitrogen) 39 mg/dL (9.8-20.1); Bilirubin, Total 1.4 mg/dL (0.2-1.2); CK (CPK) 91 U/L (29-168); Calc. Creatinine Clearance 0 mL/min (70-130); Calcium 8.5 mg/dL (7.8-10.44); Carbon Dioxide 19 mmol/L (22-29); Chloride 116 mmol/L (98-107); Estimated GFR 32; Globulin 2.3 g/dL (2.4-3.5); Glucose 199 mg/dL (70-105); Lipase 68 U/L (8-78); Magnesium 1.7 mg/dL (1.6-2.6); Potassium 3.5 mmol/L (3.5-5.1); Protein, Total 5.6 g/dL (6.0-8.3); Salicylate Less than 8.0 mg/dL (15.0-30.0); Sodium 146 mmol/L (136-145)
[2023-09-01 05:12] LABS: Troponin I Less than 0.010 ng/mL (< 0.028)
[2023-09-01 05:23] LABS: Bilirubin Negative (Negative); Blood, Urine 2+ (Negative); CAUTI Indications for Culture Alt mental st,lethar; Clarity Clear (Clear); Glucose, Urine (Dipstick) Normal (Negative); Ketone, Urine Negative (Negative); Leukocyte 250 Leu/uL (Negative); Nitrite Negative (Negative); Protein, Urine (Dipstick) 20 mg/dL (Neg-Trace); Specific Gravity, Urine 1.013 (1.002-1.036); Urobilinogen Normal mg/dL (Less than 2); pH, Urine 5.5 (5.0-9.0)
[2023-09-01 05:24] LABS: Bacteria/HPF 1+ HPF (None Seen)
[2023-09-01 05:25] LABS: Urine Culture Reflex Yes Yes
[2023-09-01 05:27] LABS: Amphetamine Not Detected (NotDetected); Barbiturates Screen Not Detected (NotDetected); Benzodiazepine Screen Not Detected (NotDetected); Cocaine Metabolite Screen Not Detected (NotDetected); Methadone Not Detected (NotDetected); Methamphetamine Not Detected (NotDetected); Opiate Screen Not Detected (NotDetected); Oxycodone Screen Not Detected (NotDetected); Phencyclidine (PCP) Not Detected (NotDetected); THC/Cannabinoid Screen Not Detected (NotDetected); Tricyclic Screen Not Detected (NotDetected)
[2023-09-01 05:59] LABS: Anisocytosis SLIGHT = 6-15 cells (100X) (0-5/hpf); Ovalocytes MODERATE= 6-15 cells (100X) (0-1/hpf); Platelet Adequacy Comment Appears Decreased
[2023-09-01] MEDS ORDERED: cefTRIAXone (ROCEPHIN) 1 GM VIAL ONE (06:26)
[2023-09-01] MEDS ORDERED: Sodium Chloride 0.9% 100 ML ONE (06:26)
[2023-09-01] MEDS ORDERED: Dextrose 50% Abboject 50 ML SYRINGE SLOW IVP PRN (08:36)
[2023-09-01] MEDS ORDERED: Glucagon 1 MG/ML KIT IM PRN (08:36)
[2023-09-01] MEDS ORDERED: Dextrose 5% in Water 1,000 ML IV PRN (08:36)
[2023-09-01] MEDS ORDERED: HumaLOG 300 UNITS/3 ML VIAL SC PRN ×2 (08:36)
[2023-09-01 08:40] VITALS: BMI 25.5
[2023-09-01] MEDS ORDERED: Dextrose 5 % And 0.9 % NaCl 1,000 ML IV SCH (08:45)
[2023-09-01] MEDS ORDERED: Ondansetron ODT 4 MG TAB PO PRN (08:48)
[2023-09-01] MEDS ORDERED: Ciprofloxacin 500 MG TAB PO SCH (09:00)
[2023-09-01] MEDS ORDERED: Albuterol 2.5 MG (3 mL) NEB NEB PRN (09:19)
[2023-09-01] MEDS ORDERED: Potassium Chloride 20 MEQ TAB PO SCH (09:30)
[2023-09-01] MEDS: busPIRone HCl 10 MG TAB PO SCH ×2 (11:04→21:13)
[2023-09-01] MEDS: Insulin Glargine 30 UNITS/0.3 ML VIAL SC SCH (11:05)
[2023-09-01] MEDS: Magnesium Oxide 250 MG TAB PO SCH (11:05)
[2023-09-01] MEDS: Folic Acid 1 MG TAB PO SCH (11:05)
[2023-09-01] MEDS: Midodrine HCl 5 MG TAB PO SCH ×3 (11:05→21:13)
[2023-09-01] MEDS: HumaLOG 300 UNITS/3 ML VIAL SC SCH ×2 (13:14→18:53)
[2023-09-01] MEDS: Lactulose 10 GM/15 ML Oral Solution PR SCH ×2 (15:19→23:38)
[2023-09-01] MEDS: Mometasone 100 MCG/PUFF (1 INHALER) INH SCH (19:45)
[2023-09-01] MEDS: Atorvastatin Calcium 10 MG TAB PO SCH (21:13)
[2023-09-01] MEDS: Loratadine 10 MG TAB PO SCH (21:13)
[2023-09-01] MEDS: Sodium Bicarbonate Tab 325 MG TAB PO SCH (21:13)
[2023-09-01] MEDS: Rifaximin 550 MG TAB PO SCH (21:13)
[2023-09-01] MEDS: Cholecalciferol 1,000 UNITS (25 MCG) TAB PO SCH (21:13)
[2023-09-01] MEDS ORDERED: Lactulose 20 GM (30 mL) UDCUP PO SCH (21:30)
[2023-09-02] MEDS: cefTRIAXone\\ROCEPHIN 1 GM in Sodium Chloride 0.9% 100 ML IVPB SCH (05:32)
[2023-09-02 05:39] LABS: #Basophils 0.1 thou/uL (0.0-0.2); #Eosinphils 0.5 thou/uL (0.0-0.7); #Monocytes 0.4 thou/uL (0.11-0.59); #Neutrophils 1.6 thou/uL (1.40-6.50); %Eosinophils 16.2 % (0.0-10.0); %Lymphocytes 15.9 % (21.0-51.0); %Monocytes 14.2 % (0.0-10.0); %Neutrophils 51.4 % (42.0-75.0); Hematocrit 29.5 % (36.0-47.0); Hemoglobin 9.4 g/dL (12.0-16.0); Mean Corpuscular HGB CONC 31.9 g/dL (32.0-36.0); Mean Corpuscular Hemoglobin 27.9 pg (27.0-31.0); Mean Corpuscular Volume 87.5 fl (78.0-98.0); Mean Platelet Volume 10.3 fL (7.4-10.4); RBC Distribution Width 17.2 % (11.5-14.5); Red Blood Cell (RBC) Count 3.37 mill/uL (4.20-5.40)
[2023-09-02 05:56] LABS: Platelet Count 37 10x3/uL (130-400)
[2023-09-02 06:08] LABS: ALT (SGPT) 17 U/L (8-55); AST (SGOT) 30 U/L (5-34); Albumin 2.7 g/dL (3.5-5.0); Alkaline Phosphatase 96 U/L (40-110); Anion Gap 9 mmol/L (10-20); BUN (Urea Nitrogen) 33 mg/dL (9.8-20.1); Bilirubin, Total 1.8 mg/dL (0.2-1.2); Calc. Creatinine Clearance 47 mL/min (70-130); Carbon Dioxide 24 mmol/L (22-29); Chloride 120 mmol/L (98-107); Estimated GFR 43; Glucose 138 mg/dL (70-105); Potassium 2.9 mmol/L (3.5-5.1); Protein, Total 4.7 g/dL (6.0-8.3); Sodium 150 mmol/L (136-145)
[2023-09-02] MEDS: Mometasone 100 MCG/PUFF (1 INHALER) INH SCH ×2 (07:36→19:20)
[2023-09-02] MEDS: Sodium Bicarbonate Tab 325 MG TAB PO SCH ×2 (08:49→22:06)
[2023-09-02] MEDS: Magnesium Oxide 250 MG TAB PO SCH (08:49)
[2023-09-02] MEDS: Rifaximin 550 MG TAB PO SCH ×2 (08:49→22:06)
[2023-09-02] MEDS: Midodrine HCl 5 MG TAB PO SCH ×3 (08:50→22:05)
[2023-09-02] MEDS: busPIRone HCl 10 MG TAB PO SCH ×2 (08:50→22:06)
[2023-09-02] MEDS: Ferrous Sulfate 325 MG TAB PO SCH ×2 (08:50→16:46)
[2023-09-02] MEDS: BuPROPion XL 150 MG ER.TAB PO SCH (08:50)
[2023-09-02] MEDS: Folic Acid 1 MG TAB PO SCH (08:50)
[2023-09-02] MEDS: Lactulose 20 GM (30 mL) UDCUP PO SCH ×3 (08:51→22:06)
[2023-09-02] MEDS: Cyanocobalamin (Vitamin B-12) 1,000 MCG TAB PO SCH (08:51)
[2023-09-02] MEDS: Cholecalciferol 1,000 UNITS (25 MCG) TAB PO SCH ×2 (08:51→22:04)
[2023-09-02] MEDS: traMADol HCl 50 MG TAB PO PRN ×2 (08:58→22:05)
[2023-09-02] MEDS ORDERED: FLU VACC QS2023-24(6MOS UP)/PF 60 MCG/0.5 ML SYRINGE IM ONE (09:00)
[2023-09-02] MEDS: HumaLOG 300 UNITS/3 ML VIAL SC SCH ×3 (09:03→17:31)
[2023-09-02] MEDS: Insulin Glargine 30 UNITS/0.3 ML VIAL SC SCH (12:23)
[2023-09-02] MEDS ORDERED: Potassium Chloride 20 MEQ TAB PO SCH (14:15)
[2023-09-02 14:46] LABS: Anion Gap 10 mmol/L (10-20); BUN (Urea Nitrogen) 34 mg/dL (9.8-20.1); Calc. Creatinine Clearance 42 mL/min (70-130); Calcium 8.2 mg/dL (7.8-10.44); Carbon Dioxide 21 mmol/L (22-29); Chloride 118 mmol/L (98-107); Estimated GFR 37; Glucose 218 mg/dL (70-105); Potassium 3.1 mmol/L (3.5-5.1); Sodium 146 mmol/L (136-145)
[2023-09-02] MEDS: Loratadine 10 MG TAB PO SCH (22:06)
[2023-09-02] MEDS: Atorvastatin Calcium 10 MG TAB PO SCH (22:06)
[2023-09-03 05:37] LABS: #Basophils 0.1 thou/uL (0.0-0.2); #Eosinphils 0.7 thou/uL (0.0-0.7); #Monocytes 0.6 thou/uL (0.11-0.59); #Neutrophils 2.8 thou/uL (1.40-6.50); %Basophils 1.3 % (0.0-1.0); %Eosinophils 15.3 % (0.0-10.0); %Lymphocytes 11.7 % (21.0-51.0); %Neutrophils 58.3 % (42.0-75.0); Hematocrit 29.9 % (36.0-47.0); Hemoglobin 9.5 g/dL (12.0-16.0); Mean Corpuscular HGB CONC 31.8 g/dL (32.0-36.0); Mean Corpuscular Volume 88.2 fl (78.0-98.0); Mean Platelet Volume 12.8 fL (7.4-10.4); RBC Distribution Width 17.3 % (11.5-14.5); Red Blood Cell (RBC) Count 3.39 mill/uL (4.20-5.40); White Blood Cell (WBC) Count 4.7 10x3/uL (4.8-10.8)
[2023-09-03 05:41] LABS: Platelet Count 55 10x3/uL (130-400)
[2023-09-03 06:08] LABS: ALT (SGPT) 17 U/L (8-55); AST (SGOT) 32 U/L (5-34); Albumin 2.9 g/dL (3.5-5.0); Alkaline Phosphatase 109 U/L (40-110); Anion Gap 11 mmol/L (10-20); BUN (Urea Nitrogen) 34 mg/dL (9.8-20.1); Bilirubin, Total 1.5 mg/dL (0.2-1.2); Calc. Creatinine Clearance 40 mL/min (70-130); Carbon Dioxide 17 mmol/L (22-29); Chloride 116 mmol/L (98-107); Estimated GFR 35; Globulin 2.1 g/dL (2.4-3.5); Glucose 125 mg/dL (70-105); Potassium 4.2 mmol/L (3.5-5.1); Sodium 140 mmol/L (136-145)
[2023-09-03] MEDS: Mometasone 100 MCG/PUFF (1 INHALER) INH SCH (07:19)
[2023-09-03] MEDS: cefTRIAXone\\ROCEPHIN 1 GM in Sodium Chloride 0.9% 100 ML IVPB SCH (07:21)
[2023-09-03] MEDS: Insulin Glargine 30 UNITS/0.3 ML VIAL SC SCH (07:41)
[2023-09-03] MEDS: HumaLOG 300 UNITS/3 ML VIAL SC SCH (07:41)
[2023-09-03] MEDS: Sodium Bicarbonate Tab 325 MG TAB PO SCH (09:05)
[2023-09-03] MEDS: Ferrous Sulfate 325 MG TAB PO SCH (09:05)
[2023-09-03] MEDS: Cyanocobalamin (Vitamin B-12) 1,000 MCG TAB PO SCH (09:05)
[2023-09-03] MEDS: Lactulose 20 GM (30 mL) UDCUP PO SCH (09:06)
[2023-09-03] MEDS: busPIRone HCl 10 MG TAB PO SCH (09:06)
[2023-09-03] MEDS: BuPROPion XL 150 MG ER.TAB PO SCH (09:06)
[2023-09-03] MEDS: Rifaximin 550 MG TAB PO SCH (09:06)
[2023-09-03] MEDS: Magnesium Oxide 250 MG TAB PO SCH (09:06)
[2023-09-03] MEDS: Folic Acid 1 MG TAB PO SCH (09:06)
[2023-09-03] MEDS: Cholecalciferol 1,000 UNITS (25 MCG) TAB PO SCH (09:06)
[2023-09-03 09:07] VITALS: BP 124/57; TEMP 98.2
[2023-09-03] MEDS: Midodrine HCl 5 MG TAB PO SCH (09:09)
== END 2023-09-03 11:48 | disposition home or self-care (01) | DRG 442 ==
LOC: ERS 02:44 → MSONC 07:07
PROVIDERS: ADMIT Student in an Organized Health Care Education/Training Program; ATTEND Student in an Organized Health Care Education/Training Program
DX: K76.82 Hepatic encephalopathy (principal); E87.0 Hyperosmolality and hypernatremia; N39.0 Urinary tract infection, site not specified; N18.4 Chronic kidney disease, stage 4 (severe); K70.31 Alcoholic cirrhosis of liver with ascites; E11.22 Type 2 diabetes mellitus with diabetic chronic kidney disease; K72.10 Chronic hepatic failure without coma; K21.9 Gastro-esophageal reflux disease without esophagitis; Z79.82 Long term (current) use of aspirin; Z91.048 Other nonmedicinal substance allergy status; Z88.5 Allergy status to narcotic agent; Z88.2 Allergy status to sulfonamides; Z88.8 Allergy status to other drugs, medicaments and biological substances; F41.9 Anxiety disorder, unspecified; F32.A Depression, unspecified; Z90.49 Acquired absence of other specified parts of digestive tract; Z90.89 Acquired absence of other organs; Z83.3 Family history of diabetes mellitus; Z82.49 Family history of ischemic heart disease and other diseases of the circulatory system; Z87.891 Personal history of nicotine dependence; Z11.52 Encounter for screening for COVID-19; D69.59 Other secondary thrombocytopenia
CPT/HCPCS: 36415; 36416; 70450; 71045; 80053; 80306; 80307; 81001; 82140; 82550; 83605; 83690; 83735; 84443; 84484; 85025; 87040; 87077; 87086; 87149; 87186; 93005; 94760; J0696; J1815; J3490; J7042

== ENCOUNTER 2023-09-14 10:01 | Day surgery (SDC) | payer OTHER ==
[2023-09-14] MEDS ORDERED: Sodium Bicarbonate 0.5 MEQ/ML SDV 10 ML ONE (10:16)
[2023-09-14] MEDS ORDERED: Lidocaine 1% PF 5 ML VIAL ONE (10:16)
[2023-09-14] MEDS ORDERED: Albumin 25% 200 ML ONE (10:16)
[2023-09-14 13:45] LABS: WBC/Nucleated-Auto (BF) 78 /cu.mm
[2023-09-14 14:03] LABS: BF Color Colorless; Body Fluid Source Ascites Body Fluid; Clarity Hazy (Clear); RBC Count-Automated (BF) 24 /cu.mm; Tube # EDTA
[2023-09-14 14:05] LABS: BF Segmented Neutrophils 1 %; Cell Count Non Hematic 68 %; Lymphocytes 31 %
== END 2023-09-14 12:20 | disposition home or self-care (01) ==
LOC: ULT 10:01
PROVIDERS: ATTEND Internal Medicine Gastroenterology
PROC: 0W9G30Z Drainage of Peritoneal Cavity with Drainage Device, Percutaneous Approach (ICD-10-PCS; principal; 2023-09-14)
DX: R18.8 Other ascites (principal)
CPT/HCPCS: 49083; 82042; 84157; 85060; 87070; 87205; 89051; J1642; P9047

== ENCOUNTER 2023-09-21 10:35 | Day surgery (SDC) | payer OTHER ==
[2023-09-21] MEDS ORDERED: Albumin 25% 200 ML ONE (10:48)
[2023-09-21] MEDS ORDERED: Lidocaine 1% PF 5 ML VIAL ONE (10:49)
[2023-09-21 13:12] LABS: #Basophils 0.1 thou/uL (0.0-0.2); #Eosinphils 0.4 thou/uL (0.0-0.7); #Monocytes 0.5 thou/uL (0.11-0.59); %Basophils 1.2 % (0.0-1.0); %Eosinophils 9.8 % (0.0-10.0); %Lymphocytes 8.6 % (21.0-51.0); %Monocytes 11.4 % (0.0-10.0); %Neutrophils 68.8 % (42.0-75.0); Hematocrit 29.7 % (36.0-47.0); Hemoglobin 9.2 g/dL (12.0-16.0); Mean Corpuscular Hemoglobin 28.4 pg (27.0-31.0); Mean Corpuscular Volume 91.7 fl (78.0-98.0); Mean Platelet Volume 13.2 fL (7.4-10.4); RBC Distribution Width 17.5 % (11.5-14.5); Red Blood Cell (RBC) Count 3.24 mill/uL (4.20-5.40); White Blood Cell (WBC) Count 4.3 10x3/uL (4.8-10.8)
[2023-09-21 13:16] LABS: Platelet Count 39 10x3/uL (130-400)
[2023-09-21 13:24] LABS: INR-International Normal Ratio 1.5; Prothrombin Time 18.6 sec (12.0-14.7)
[2023-09-21 13:25] LABS: PTT 77.6 sec (22.9-36.1)
[2023-09-21 13:41] LABS: ALT (SGPT) 22 U/L (8-55); AST (SGOT) 28 U/L (5-34); Albumin 3.3 g/dL (3.5-5.0); Alkaline Phosphatase 122 U/L (40-110); Anion Gap 12 mmol/L (10-20); BUN (Urea Nitrogen) 61 mg/dL (9.8-20.1); Calc. Creatinine Clearance 0 mL/min (70-130); Calcium 8.3 mg/dL (7.8-10.44); Carbon Dioxide 14 mmol/L (22-29); Chloride 116 mmol/L (98-107); Estimated GFR 21; Globulin 2.2 g/dL (2.4-3.5); Glucose 247 mg/dL (70-105); Magnesium 1.8 mg/dL (1.6-2.6); Protein, Total 5.5 g/dL (6.0-8.3); Sodium 137 mmol/L (136-145)
[2023-09-21 15:07] LABS: RBC Count-Automated (BF) 62 /cu.mm; WBC/Nucleated-Auto (BF) 37 /cu.mm
[2023-09-21 15:47] LABS: BF Color Colorless; Body Fluid Source Ascites Body Fluid; Clarity Hazy (Clear); Tube # EDTA
[2023-09-21 15:52] LABS: Cell Count Non Hematic 66 %; Lymphocytes 33 %
== END 2023-09-21 12:35 | disposition home or self-care (01) ==
LOC: ULT 10:35
PROVIDERS: ATTEND Internal Medicine Gastroenterology
PROC: 0W9G30Z Drainage of Peritoneal Cavity with Drainage Device, Percutaneous Approach (ICD-10-PCS; principal; 2023-09-21)
DX: K74.60 Unspecified cirrhosis of liver (principal); R18.8 Other ascites; K31.819 Angiodysplasia of stomach and duodenum without bleeding; K72.90 Hepatic failure, unspecified without coma; K65.2 Spontaneous bacterial peritonitis
CPT/HCPCS: 49083; 80053; 83735; 85025; 85060; 85610; 85730; 89051; J1642; P9047

== ENCOUNTER 2023-09-28 10:16 | Day surgery (SDC) | payer OTHER ==
[2023-09-28] MEDS ORDERED: Albumin 25% 200 ML ONE (10:34)
[2023-09-28] MEDS ORDERED: Sodium Bicarbonate 0.5 MEQ/ML SDV 10 ML ONE (10:34)
[2023-09-28] MEDS ORDERED: Lidocaine 1% PF 5 ML VIAL ONE (10:34)
[2023-09-28 16:30] LABS: RBC Count-Automated (BF) 520 /cu.mm; WBC/Nucleated-Auto (BF) 12 /cu.mm
[2023-09-28 17:19] LABS: BF Color Yellow; Body Fluid Source Ascites Body Fluid; Clarity Clear (Clear); Tube # EDTA
[2023-09-28 17:22] LABS: BF Segmented Neutrophils 4 %; Cell Count Non Hematic 81 %; Lymphocytes 16 %
== END 2023-09-28 12:10 | disposition home or self-care (01) ==
LOC: ULT 10:16
PROVIDERS: ATTEND Internal Medicine Gastroenterology
PROC: 0W9G3ZZ Drainage of Peritoneal Cavity, Percutaneous Approach (ICD-10-PCS; principal; 2023-09-28)
DX: R18.8 Other ascites (principal); Z88.5 Allergy status to narcotic agent; Z88.2 Allergy status to sulfonamides; Z88.6 Allergy status to analgesic agent; Z91.048 Other nonmedicinal substance allergy status
CPT/HCPCS: 49083; 82042; 84157; 85060; 87070; 87205; 89051; J1642; P9047

== ENCOUNTER → 2023-10-05 | Day surgery (SDC) | payer OTHER ==
[~2023-10-05] MED LIST changes: -Albumin 25% 25 GM/100 ML BOT IVPB SCH
[2023-10-05 12:01] LABS: #Basophils 0.1 thou/uL (0.0-0.2); #Eosinphils 0.5 thou/uL (0.0-0.7); #Monocytes 0.4 thou/uL (0.11-0.59); #Neutrophils 2.3 thou/uL (1.40-6.50); %Basophils 2.3 % (0.0-1.0); %Eosinophils 13.5 % (0.0-10.0); %Monocytes 10.9 % (0.0-10.0); Hematocrit 28.8 % (36.0-47.0); Hemoglobin 9.2 g/dL (12.0-16.0); Mean Corpuscular HGB CONC 31.9 g/dL (32.0-36.0); Mean Corpuscular Hemoglobin 28.8 pg (27.0-31.0); RBC Distribution Width 16.1 % (11.5-14.5); White Blood Cell (WBC) Count 3.9 10x3/uL (4.8-10.8)
[2023-10-05 12:04] LABS: Platelet Count 45 10x3/uL (130-400)
[2023-10-05 12:13] LABS: INR-International Normal Ratio 1.3; Prothrombin Time 16.6 sec (12.0-14.7)
[2023-10-05 12:27] LABS: ALT (SGPT) 34 U/L (8-55); AST (SGOT) 42 U/L (5-34); Albumin 3.3 g/dL (3.5-5.0); Alkaline Phosphatase 154 U/L (40-110); Anion Gap 10 mmol/L (10-20); BUN (Urea Nitrogen) 51 mg/dL (9.8-20.1); Bilirubin, Total 0.8 mg/dL (0.2-1.2); Calc. Creatinine Clearance 0 mL/min (70-130); Calcium 8.6 mg/dL (7.8-10.44); Carbon Dioxide 18 mmol/L (22-29); Chloride 115 mmol/L (98-107); Estimated GFR 26; Globulin 2.2 g/dL (2.4-3.5); Glucose 266 mg/dL (70-105); Magnesium 1.8 mg/dL (1.6-2.6); Potassium 4.1 mmol/L (3.5-5.1); Protein, Total 5.5 g/dL (6.0-8.3); Sodium 139 mmol/L (136-145)
[2023-10-05 13:11] LABS: RBC Count-Automated (BF) 37 /cu.mm; WBC/Nucleated-Auto (BF) 62 /cu.mm
[2023-10-05 13:32] LABS: Body Fluid Source Ascites Body Fluid
[2023-10-05 13:33] LABS: BF Color Colorless; Clarity Hazy (Clear); Tube # EDTA
[2023-10-05 14:20] LABS: Cell Count Non Hematic 82 %; Eosinophils 1 %; Lymphocytes 17 %
== END ==
LOC: ULT 10:22
PROVIDERS: ATTEND Internal Medicine Gastroenterology
PROC: 0W9G3ZZ Drainage of Peritoneal Cavity, Percutaneous Approach (ICD-10-PCS; principal; 2023-10-05)
DX: K74.60 Unspecified cirrhosis of liver (principal); R18.8 Other ascites; K31.819 Angiodysplasia of stomach and duodenum without bleeding; K72.90 Hepatic failure, unspecified without coma; K65.2 Spontaneous bacterial peritonitis; Z88.0 Allergy status to penicillin; Z88.2 Allergy status to sulfonamides; Z88.5 Allergy status to narcotic agent; Z88.8 Allergy status to other drugs, medicaments and biological substances
CPT/HCPCS: 49083; 80053; 82042; 83735; 84157; 85025; 85060; 85610; 87070; 87205; 89051; J1642; P9047

== ENCOUNTER 2023-10-12 10:25 | Day surgery (SDC) | payer OTHER ==
[2023-10-12] MEDS ORDERED: Albumin 25% 100 ML ONE (10:53)
[2023-10-12] MEDS ORDERED: Lidocaine 1% PF 5 ML VIAL ONE (10:54)
[2023-10-12] MEDS ORDERED: Sodium Bicarbonate 2.5 MEQ/5 ML SDV ONE (10:54)
[2023-10-12 14:22] LABS: RBC Count-Automated (BF) 173 /cu.mm; WBC/Nucleated-Auto (BF) 37 /cu.mm
[2023-10-12 14:44] LABS: BF Color Colorless; Body Fluid Source Ascites Body Fluid; Clarity Hazy (Clear); Tube # EDTA
[2023-10-12 14:45] LABS: Cell Count Non Hematic 69 %; Lymphocytes 30 %
== END 2023-10-12 12:45 | disposition home or self-care (01) ==
LOC: ULT 10:25
PROVIDERS: ATTEND Internal Medicine Gastroenterology
PROC: 0W9G30Z Drainage of Peritoneal Cavity with Drainage Device, Percutaneous Approach (ICD-10-PCS; principal; 2023-10-12)
DX: R18.8 Other ascites (principal); K31.819 Angiodysplasia of stomach and duodenum without bleeding; K72.90 Hepatic failure, unspecified without coma; K65.2 Spontaneous bacterial peritonitis; K74.60 Unspecified cirrhosis of liver; Z88.5 Allergy status to narcotic agent; Z88.8 Allergy status to other drugs, medicaments and biological substances; Z88.0 Allergy status to penicillin; Z88.2 Allergy status to sulfonamides
CPT/HCPCS: 49083; 82043; 84155; 85060; 87070; 87205; 89051; J1642; P9047

== ENCOUNTER 2023-10-25 23:12 | Inpatient (IN) | payer OTHER ==
[2023-10-26] MEDS ORDERED: Lactulose 20 GM (30 mL) UDCUP ONE ×2 (00:03→08:42)
[2023-10-26 00:08] LABS: #Basophils 0.1 thou/uL (0.0-0.2); #Eosinphils 0.5 thou/uL (0.0-0.7); #Monocytes 0.8 thou/uL (0.11-0.59); #Neutrophils 7.1 thou/uL (1.40-6.50); %Basophils 0.6 % (0.0-1.0); %Eosinophils 5.2 % (0.0-10.0); %Lymphocytes 4.2 % (21.0-51.0); %Monocytes 8.8 % (0.0-10.0); %Neutrophils 80.9 % (42.0-75.0); Hematocrit 31.4 % (36.0-47.0); Hemoglobin 10.2 g/dL (12.0-16.0); Mean Corpuscular HGB CONC 32.5 g/dL (32.0-36.0); Mean Corpuscular Hemoglobin 29.1 pg (27.0-31.0); Mean Corpuscular Volume 89.7 fl (78.0-98.0); RBC Distribution Width 17.1 % (11.5-14.5); White Blood Cell (WBC) Count 8.8 10x3/uL (4.8-10.8)
[2023-10-26 00:14] LABS: Platelet Count 34 10x3/uL (130-400)
[2023-10-26 00:36] LABS: Anisocytosis SLIGHT = 6-15 cells HPF (0-5); CellaVision Operator ID lab.abc; Platelet Adequacy Comment Platelets Decreased; Polychromasia SLIGHT = 2-3 cells HPF (0-2)
[2023-10-26 01:11] LABS: ALT (SGPT) 24 U/L (8-55); AST (SGOT) 37 U/L (5-34); Albumin 3.4 g/dL (3.5-5.0); Alkaline Phosphatase 124 U/L (40-110); Anion Gap 15 mmol/L (10-20); BUN (Urea Nitrogen) 44 mg/dL (9.8-20.1); CK (CPK) 69 U/L (29-168); Calc. Creatinine Clearance 0 mL/min (70-130); Calcium 8.5 mg/dL (7.8-10.44); Carbon Dioxide 17 mmol/L (22-29); Chloride 118 mmol/L (98-107); Estimated GFR 26; Globulin 2.3 g/dL (2.4-3.5); Glucose 146 mg/dL (70-105); Potassium 4.1 mmol/L (3.5-5.1); Protein, Total 5.7 g/dL (6.0-8.3); Sodium 146 mmol/L (136-145)
[2023-10-26 01:22] LABS: Bilirubin, Total 1.4 mg/dL (0.2-1.2)
[2023-10-26 01:24] LABS: Acetaminophen Less than 10 mcg/mL (10.0-30.0); Alcohol Less than 10.0 mg/dL (Less than 10); Lipase 53 U/L (8-78); Salicylate Less than 8.0 mg/dL (15.0-30.0)
[2023-10-26] MEDS ORDERED: Thiamine HCl 200 MG/2 ML VIAL ONE (01:26)
[2023-10-26] MEDS ORDERED: Magnesium 2 GM/50 ML BAG (IN WATER) ONE (01:27)
[2023-10-26 01:29] LABS: Troponin I Less than 0.010 ng/mL (< 0.028)
[2023-10-26 02:20] LABS: Amphetamine Not Detected (NotDetected); Barbiturates Screen Not Detected (NotDetected); Benzodiazepine Screen Not Detected (NotDetected); Cocaine Metabolite Screen Not Detected (NotDetected); Methadone Not Detected (NotDetected); Methamphetamine Not Detected (NotDetected); Opiate Screen Not Detected (NotDetected); Oxycodone Screen Not Detected (NotDetected); Phencyclidine (PCP) Not Detected (NotDetected); THC/Cannabinoid Screen Not Detected (NotDetected); Tricyclic Screen Not Detected (NotDetected)
[2023-10-26 02:21] LABS: Bacteria/HPF None Seen HPF (None Seen); Bilirubin Negative (Negative); Blood, Urine 2+ (Negative); CAUTI Indications for Culture Alt mental st,lethar; Clarity Clear (Clear); Glucose, Urine (Dipstick) Normal (Negative); Ketone, Urine Negative (Negative); Leukocyte 75 Leu/uL (Negative); Nitrite Negative (Negative); Protein, Urine (Dipstick) Negative (Neg-Trace); Specific Gravity, Urine 1.014 (1.002-1.036); Squamous Epithelial 0-3 HPF (0-3); Urobilinogen Normal mg/dL (Less than 2); pH, Urine 5.5 (5.0-9.0)
[2023-10-26] MEDS ORDERED: Dextrose 5% in Water 1,000 ML IV PRN (02:24)
[2023-10-26] MEDS ORDERED: Ondansetron ODT 4 MG TAB PO PRN (02:24)
[2023-10-26] MEDS ORDERED: Dextrose 50% Abboject 50 ML SYRINGE SLOW IVP PRN (02:24)
[2023-10-26] MEDS ORDERED: Glucagon 1 MG/ML KIT IM PRN (02:24)
[2023-10-26] MEDS ORDERED: HumaLOG 300 UNITS/3 ML VIAL SC PRN ×2 (02:26)
[2023-10-26] MEDS ORDERED: Ondansetron ODT 4 MG TAB SL PRN (02:30)
[2023-10-26] MEDS ORDERED: D5 1/2 NS w/20 mEq KCL 1,000 ML IV SCH (02:30)
[2023-10-26] MEDS ORDERED: Ondansetron PF 4 MG/2 ML Vial IVP PRN (02:30)
[2023-10-26 02:32] LABS: Urine Culture Reflex No No
[2023-10-26] MEDS ORDERED: cefTRIAXone (ROCEPHIN) 1 GM VIAL ONE (03:05)
[2023-10-26 03:07] VITALS: BMI 26.6
[2023-10-26] MEDS ORDERED: Sodium Chloride 0.9% 100 ML ONE (03:07)
[2023-10-26] MEDS ORDERED: Albuterol 200 PUFF (6.7GM INHALER) INH PRN (03:08)
[2023-10-26] MEDS: cefTRIAXone\\ROCEPHIN 1 GM in Sodium Chloride 0.9% 100 ML IVPB SCH (03:08)
[2023-10-26 03:13] LABS: Influenza A by NAA Not Detected (NotDetected); Influenza B by NAA Not Detected (NotDetected); SARS-CoV-2 NAA Rapid Test Not Detected (NotDetected)
[2023-10-26] MEDS: Potassium Chloride 20 MEQ TAB PO SCH (03:36)
[2023-10-26] MEDS: Lactated Ringer's 1,000 ML IV SCH (03:53)
[2023-10-26 04:44] LABS: #Basophils 0.1 thou/uL (0.0-0.2); #Eosinphils 0.1 thou/uL (0.0-0.7); #Neutrophils 10.4 thou/uL (1.40-6.50); %Basophils 0.5 % (0.0-1.0); %Eosinophils 0.8 % (0.0-10.0); %Lymphocytes 3.5 % (21.0-51.0); %Monocytes 8.5 % (0.0-10.0); %Neutrophils 86.3 % (42.0-75.0); Hematocrit 32.3 % (36.0-47.0); Hemoglobin 10.2 g/dL (12.0-16.0); Mean Corpuscular HGB CONC 31.6 g/dL (32.0-36.0); Mean Corpuscular Hemoglobin 29.1 pg (27.0-31.0); Mean Corpuscular Volume 92.3 fl (78.0-98.0); RBC Distribution Width 17.2 % (11.5-14.5); White Blood Cell (WBC) Count 12.1 10x3/uL (4.8-10.8)
[2023-10-26 04:45] LABS: Platelet Count 34 10x3/uL (130-400)
[2023-10-26 05:10] LABS: ALT (SGPT) 23 U/L (8-55); AST (SGOT) 32 U/L (5-34); Albumin 3.2 g/dL (3.5-5.0); Alkaline Phosphatase 113 U/L (40-110); Anion Gap 15 mmol/L (10-20); BUN (Urea Nitrogen) 43 mg/dL (9.8-20.1); Bilirubin, Total 1.7 mg/dL (0.2-1.2); Calc. Creatinine Clearance 36 mL/min (70-130); Calcium 8.3 mg/dL (7.8-10.44); Carbon Dioxide 15 mmol/L (22-29); Chloride 119 mmol/L (98-107); Estimated GFR 31; Globulin 2.3 g/dL (2.4-3.5); Glucose 173 mg/dL (70-105); Potassium 4.4 mmol/L (3.5-5.1); Protein, Total 5.5 g/dL (6.0-8.3); Sodium 145 mmol/L (136-145)
[2023-10-26 08:15] LABS: INR-International Normal Ratio 1.4; Prothrombin Time 17.1 sec (12.0-14.7)
[2023-10-26] MEDS ORDERED: Pantoprazole 40 MG VIAL ONE (08:42)
[2023-10-26] MEDS ORDERED: Lactulose 20 GM (30 mL) UDCUP PR SCH (09:00)
[2023-10-26] MEDS: Cholecalciferol 1,000 UNITS (25 MCG) TAB PO SCH (12:37)
[2023-10-26] MEDS: Insulin Glargine 30 UNITS/0.3 ML VIAL SC SCH (12:37)
[2023-10-26] MEDS: Lactulose 20 GM (30 mL) UDCUP PR SCH (12:38)
[2023-10-26] MEDS: Sodium Bicarbonate Tab 325 MG TAB PO SCH (12:38)
[2023-10-26] MEDS: Rifaximin 550 MG TAB PO SCH (12:38)
[2023-10-26] MEDS: Lactulose 20 GM (30 mL) UDCUP PO SCH (12:38)
[2023-10-26] MEDS: Midodrine HCl 5 MG TAB PO SCH (12:38)
[2023-10-26] MEDS: HumaLOG 300 UNITS/3 ML VIAL SC SCH (12:39)
[2023-10-26] MEDS: Pantoprazole 40 MG VIAL IVP SCH (12:39)
[2023-10-26] MEDS: Ferrous Sulfate 325 MG TAB PO SCH (12:39)
[2023-10-26] MEDS: Cyanocobalamin (Vitamin B-12) 1,000 MCG TAB PO SCH (13:19)
[2023-10-26] MEDS: Folic Acid 1 MG TAB PO SCH (13:19)
[2023-10-26] MEDS: Ciprofloxacin 500 MG TAB PO SCH (13:19)
[2023-10-26] MEDS: Magnesium Oxide 250 MG TAB PO SCH (13:19)
[2023-10-26] MEDS: Atorvastatin Calcium 10 MG TAB PO SCH (13:22)
[2023-10-26] MEDS: FLU VACC QS2023-24(6MOS UP)/PF 60 MCG/0.5 ML SYRINGE IM ONE (17:15)
[2023-10-26] MEDS: Mometasone Furoate 120 PUFF 220 MCG INH SCH (19:48)
[2023-10-26] MEDS: traMADol HCl 50 MG TAB PO PRN (21:26)
[2023-10-27 07:12] LABS: #Basophils 0.1 thou/uL (0.0-0.2); #Eosinphils 0.7 thou/uL (0.0-0.7); #Monocytes 0.6 thou/uL (0.11-0.59); #Neutrophils 4.4 thou/uL (1.40-6.50); %Basophils 1.1 % (0.0-1.0); %Eosinophils 11.2 % (0.0-10.0); %Lymphocytes 11.2 % (21.0-51.0); %Monocytes 8.9 % (0.0-10.0); %Neutrophils 67.3 % (42.0-75.0); Hemoglobin 9.3 g/dL (12.0-16.0); Mean Corpuscular HGB CONC 32.1 g/dL (32.0-36.0); Mean Corpuscular Hemoglobin 29.2 pg (27.0-31.0); Mean Corpuscular Volume 90.9 fl (78.0-98.0); RBC Distribution Width 17.1 % (11.5-14.5); Red Blood Cell (RBC) Count 3.19 mill/uL (4.20-5.40); White Blood Cell (WBC) Count 6.5 10x3/uL (4.8-10.8)
[2023-10-27 07:15] LABS: Platelet Count 35 10x3/uL (130-400)
[2023-10-27 07:54] LABS: ALT (SGPT) 21 U/L (8-55); AST (SGOT) 38 U/L (5-34); Albumin 2.9 g/dL (3.5-5.0); Alkaline Phosphatase 102 U/L (40-110); Anion Gap 12 mmol/L (10-20); BUN (Urea Nitrogen) 46 mg/dL (9.8-20.1); Calc. Creatinine Clearance 32 mL/min (70-130); Calcium 8.2 mg/dL (7.8-10.44); Carbon Dioxide 17 mmol/L (22-29); Chloride 117 mmol/L (98-107); Estimated GFR 27; Globulin 1.8 g/dL (2.4-3.5); Glucose 115 mg/dL (70-105); Potassium 3.6 mmol/L (3.5-5.1); Protein, Total 4.7 g/dL (6.0-8.3); Sodium 142 mmol/L (136-145)
[2023-10-27] MEDS ORDERED: Lidocaine 1% PF 5 ML VIAL ONE (07:59)
[2023-10-27] MEDS ORDERED: Sodium Bicarbonate 2.5 MEQ/5 ML SDV ONE (08:00)
[2023-10-27] MEDS: Ciprofloxacin 500 MG TAB PO SCH (09:47)
[2023-10-27] MEDS: Albumin 25% 25 GM (100 mL) BOT IVPB SCH (09:50)
[2023-10-27 09:53] LABS: RBC Count-Automated (BF) 0 /cu.mm; WBC/Nucleated-Auto (BF) 36 /cu.mm
[2023-10-27 10:40] LABS: BF Color Yellow; Body Fluid Source Ascites Body Fluid; Clarity Hazy (Clear); Tube # EDTA
[2023-10-27] MEDS ORDERED: Albuterol 2.5 MG (3 mL) NEB NEB PRN (10:46)
[2023-10-27 10:57] LABS: BF Segmented Neutrophils 14 %; Cell Count Non Hematic 63 %; Lymphocytes 23 %
[2023-10-27 12:26] VITALS: BP 114/57; TEMP 98.3
== END 2023-10-27 15:30 | disposition home or self-care (01) | DRG 442 ==
LOC: ERS 23:12 → ERHOLD 10-26 02:16 → 2NO 10-26 11:26
PROVIDERS: ADMIT Family Medicine; ATTEND Family Medicine
PROC: 0W9G3ZZ Drainage of Peritoneal Cavity, Percutaneous Approach (ICD-10-PCS; principal; 2023-10-27)
PROC: 30233J1 Transfusion of Nonautologous Serum Albumin into Peripheral Vein, Percutaneous Approach (ICD-10-PCS; 2023-10-27)
DX: K76.82 Hepatic encephalopathy (principal); E87.1 Hypo-osmolality and hyponatremia; R18.8 Other ascites; K72.10 Chronic hepatic failure without coma; K74.60 Unspecified cirrhosis of liver; E11.22 Type 2 diabetes mellitus with diabetic chronic kidney disease; D69.6 Thrombocytopenia, unspecified; K21.9 Gastro-esophageal reflux disease without esophagitis; F32.A Depression, unspecified; F41.9 Anxiety disorder, unspecified; E78.5 Hyperlipidemia, unspecified; N18.32 Chronic kidney disease, stage 3b; J30.9 Allergic rhinitis, unspecified; F17.210 Nicotine dependence, cigarettes, uncomplicated; Z79.82 Long term (current) use of aspirin; Z88.2 Allergy status to sulfonamides; Z88.5 Allergy status to narcotic agent; Z79.4 Long term (current) use of insulin; Z79.899 Other long term (current) drug therapy; Z90.49 Acquired absence of other specified parts of digestive tract; Z98.891 History of uterine scar from previous surgery; Z90.89 Acquired absence of other organs; Z98.890 Other specified postprocedural states; Z82.49 Family history of ischemic heart disease and other diseases of the circulatory system; Z83.3 Family history of diabetes mellitus; Z71.6 Tobacco abuse counseling
CPT/HCPCS: 36415; 36416; 49083; 70450; 71045; 80053; 80306; 80307; 81001; 82140; 82550; 83690; 84484; 85025; 85060; 85610; 85730; 87040; 87070; 87205; 89051; 93005; C9113; J0696; J1642; J1815; J3411; J3475; J3490; J7120; P9047

== ENCOUNTER → 2023-11-02 | Day surgery (SDC) | payer OTHER ==
[~2023-11-02] MED LIST changes: +Sodium Bicarbonate 2.5 MEQ/5 ML SDV ONE
[2023-11-02 12:04] LABS: #Basophils 0.1 thou/uL (0.0-0.2); #Eosinphils 0.5 thou/uL (0.0-0.7); #Monocytes 0.7 thou/uL (0.11-0.59); #Neutrophils 2.5 thou/uL (1.40-6.50); %Basophils 1.6 % (0.0-1.0); %Eosinophils 11.7 % (0.0-10.0); %Lymphocytes 11.7 % (21.0-51.0); %Monocytes 16.7 % (0.0-10.0); %Neutrophils 57.8 % (42.0-75.0); Hematocrit 25.9 % (36.0-47.0); Hemoglobin 8.1 g/dL (12.0-16.0); Mean Corpuscular HGB CONC 31.3 g/dL (32.0-36.0); Mean Corpuscular Hemoglobin 28.7 pg (27.0-31.0); Mean Corpuscular Volume 91.8 fl (78.0-98.0); Mean Platelet Volume 12.6 fL (7.4-10.4); RBC Distribution Width 16.4 % (11.5-14.5); Red Blood Cell (RBC) Count 2.82 mill/uL (4.20-5.40); White Blood Cell (WBC) Count 4.3 10x3/uL (4.8-10.8)
[2023-11-02 12:05] LABS: Platelet Count 61 10x3/uL (130-400)
[2023-11-02 12:19] LABS: INR-International Normal Ratio 1.4; Prothrombin Time 17.1 sec (12.0-14.7)
[2023-11-02 12:29] LABS: ALT (SGPT) 19 U/L (8-55); AST (SGOT) 34 U/L (5-34); Albumin 3.1 g/dL (3.5-5.0); Alkaline Phosphatase 132 U/L (40-110); Anion Gap 10 mmol/L (10-20); BUN (Urea Nitrogen) 53 mg/dL (9.8-20.1); Bilirubin, Total 1.1 mg/dL (0.2-1.2); Calc. Creatinine Clearance 0 mL/min (70-130); Calcium 8.5 mg/dL (7.8-10.44); Carbon Dioxide 15 mmol/L (22-29); Chloride 116 mmol/L (98-107); Estimated GFR 34; Globulin 2.1 g/dL (2.4-3.5); Glucose 91 mg/dL (70-105); Potassium 5.4 mmol/L (3.5-5.1); Protein, Total 5.2 g/dL (6.0-8.3); Sodium 136 mmol/L (136-145)
[2023-11-02 13:15] LABS: RBC Count-Automated (BF) 61 /cu.mm; WBC/Nucleated-Auto (BF) 36 /cu.mm
[2023-11-02 13:18] LABS: BF Color Colorless; Body Fluid Source Ascites Body Fluid; Clarity Hazy (Clear); Tube # EDTA
[2023-11-02 13:46] LABS: BF Segmented Neutrophils 2 %; Cell Count Non Hematic 68 %; Lymphocytes 30 %
== END ==
LOC: ULT 10:32
PROVIDERS: ATTEND Internal Medicine Gastroenterology
PROC: 0W9G30Z Drainage of Peritoneal Cavity with Drainage Device, Percutaneous Approach (ICD-10-PCS; principal; 2023-11-02)
DX: K74.60 Unspecified cirrhosis of liver (principal); R18.8 Other ascites; I10 Essential (primary) hypertension; D64.9 Anemia, unspecified; F41.9 Anxiety disorder, unspecified; E78.00 Pure hypercholesterolemia, unspecified; Z87.891 Personal history of nicotine dependence; Z79.899 Other long term (current) drug therapy; Z91.09 Other allergy status, other than to drugs and biological substances; Z88.5 Allergy status to narcotic agent; Z88.2 Allergy status to sulfonamides; Z88.0 Allergy status to penicillin; Z88.6 Allergy status to analgesic agent
CPT/HCPCS: 49083; 80053; 82042; 83735; 84157; 85025; 85060; 85610; 87070; 87205; 89051; J1642; P9047

== ENCOUNTER 2023-11-09 09:51 | Day surgery (SDC) | payer OTHER ==
[2023-11-09] MEDS ORDERED: Albumin 25% 200 ML ONE (11:01)
[2023-11-09] MEDS ORDERED: Lidocaine 1% PF 5 ML VIAL ONE (11:02)
[2023-11-09] MEDS ORDERED: Sodium Bicarbonate 2.5 MEQ/5 ML SDV ONE (11:02)
[2023-11-09 11:47] VITALS: BMI 24.2
[2023-11-09 13:23] LABS: RBC Count-Automated (BF) 134 /cu.mm; WBC/Nucleated-Auto (BF) 12 /cu.mm
[2023-11-09 13:28] LABS: BF Color Colorless; Body Fluid Source Ascites Body Fluid; Clarity Clear (Clear); Tube # EDTA
[2023-11-09 14:36] LABS: BF Segmented Neutrophils 23 %; Cell Count Non Hematic 53 %; Lymphocytes 25 %
== END 2023-11-09 12:20 | disposition home or self-care (01) ==
LOC: ULT 09:51
PROVIDERS: ATTEND Internal Medicine Gastroenterology
PROC: 0W9G3ZZ Drainage of Peritoneal Cavity, Percutaneous Approach (ICD-10-PCS; principal; 2023-11-09)
DX: K74.60 Unspecified cirrhosis of liver (principal); R18.8 Other ascites; I10 Essential (primary) hypertension; E78.5 Hyperlipidemia, unspecified; F41.9 Anxiety disorder, unspecified; Z88.0 Allergy status to penicillin; Z88.5 Allergy status to narcotic agent; Z88.2 Allergy status to sulfonamides; Z88.8 Allergy status to other drugs, medicaments and biological substances; Z87.891 Personal history of nicotine dependence; Z79.899 Other long term (current) drug therapy
CPT/HCPCS: 49083; 82042; 84155; 85060; 87070; 87205; 89051; J1642; P9047

== ENCOUNTER 2024-01-04 10:15 | Day surgery (SDC) | payer OTHER ==
[2024-01-04 13:44] LABS: #Basophils 0.06 10x3/uL (0.0-0.2); %Basophils 1.7 % (0.0-1.0); %Eosinophils 16.2 % (0.0-10.0); %Lymphocytes 13.1 % (21.0-51.0); %Monocytes 14.5 % (0.0-10.0); %Neutrophils 54.2 % (42.0-75.0); Hematocrit 30.5 % (36.0-47.0); Hemoglobin 9.8 g/dL (12.0-16.0); Mean Corpuscular HGB CONC 32.1 g/dL (32.0-36.0); Mean Corpuscular Hemoglobin 28.7 pg (27.0-31.0); Mean Corpuscular Volume 89.4 fL (78.0-98.0); Platelet Count 34 10x3/uL (130-400); RBC Distribution Width 16.6 % (11.5-14.5); Red Blood Cell (RBC) Count 3.41 mill/uL (4.20-5.40)
[2024-01-04 14:01] LABS: PTT 58.1 sec (22.9-36.1); Prothrombin Time 19.3 sec (12.0-14.7)
[2024-01-04 14:12] LABS: Platelet Adequacy Comment Significant Decrease; RBC Morphology Within Normal Limits
[2024-01-04 14:16] LABS: RBC Count-Automated (BF) 13 /cu.mm; WBC/Nucleated-Auto (BF) 0 /cu.mm
[2024-01-04 14:19] LABS: BF Color Colorless; Body Fluid Source Ascites Body Fluid; Clarity Hazy (Clear); Tube # EDTA
[2024-01-04 14:33] LABS: INR-International Normal Ratio 1.6
[2024-01-04 15:34] LABS: Globulin 1.9 g/dL (2.4-3.5)
[2024-01-04 15:39] LABS: ALT (SGPT) 20 U/L (8-55); AST (SGOT) 31 U/L (5-34); Albumin 3.9 g/dL (3.5-5.0); Alkaline Phosphatase 126 U/L (40-110); Anion Gap 17 mmol/L (10-20); BUN (Urea Nitrogen) 61 mg/dL (9.8-20.1); Bilirubin, Total 1.6 mg/dL (0.2-1.2); Calc. Creatinine Clearance 34 mL/min (70-130); Calcium 8.9 mg/dL (7.8-10.44); Carbon Dioxide 19 mmol/L (22-29); Chloride 111 mmol/L (98-107); Estimated GFR 29; Glucose 131 mg/dL (70-105); Magnesium 2.3 mg/dL (1.6-2.6); Potassium 3.5 mmol/L (3.5-5.1); Protein, Total 5.8 g/dL (6.0-8.3); Sodium 143 mmol/L (136-145)
== END 2024-01-04 12:45 | disposition home or self-care (01) ==
LOC: ULT 10:15
PROVIDERS: ATTEND Internal Medicine Gastroenterology
PROC: 0W9G30Z Drainage of Peritoneal Cavity with Drainage Device, Percutaneous Approach (ICD-10-PCS; principal; 2024-01-04)
DX: K74.60 Unspecified cirrhosis of liver (principal); R18.8 Other ascites; Z88.5 Allergy status to narcotic agent; Z88.2 Allergy status to sulfonamides; Z88.0 Allergy status to penicillin; Z88.8 Allergy status to other drugs, medicaments and biological substances
CPT/HCPCS: 49083; 80053; 82042; 83735; 84157; 85025; 85610; 85730; 87070; 87205; 89051; J1642; P9047

== ENCOUNTER 2024-01-18 10:17 | Day surgery (SDC) | payer OTHER ==
[2024-01-18] MEDS ORDERED: Albumin 25% 200 ML ONE (10:49)
[2024-01-18] MEDS ORDERED: Lidocaine 1% PF 5 ML VIAL ONE (10:49)
[2024-01-18] MEDS ORDERED: Sodium Bicarbonate 2.5 MEQ/5 ML SDV ONE (10:50)
[2024-01-18 12:03] LABS: INR-International Normal Ratio 1.4; Prothrombin Time 17.6 sec (12.0-14.7)
[2024-01-18 12:13] LABS: #Basophils 0.07 10x3/uL (0.0-0.2); %Basophils 1.5 % (0.0-1.0); %Eosinophils 16.6 % (0.0-10.0); %Lymphocytes 12.3 % (21.0-51.0); %Monocytes 11.9 % (0.0-10.0); %Neutrophils 57.5 % (42.0-75.0); Mean Corpuscular HGB CONC 32.3 g/dL (32.0-36.0); Mean Corpuscular Hemoglobin 28.7 pg (27.0-31.0); Mean Corpuscular Volume 89.1 fL (78.0-98.0); Platelet Count 44 10x3/uL (130-400); RBC Distribution Width 16.7 % (11.5-14.5); Red Blood Cell (RBC) Count 3.48 mill/uL (4.20-5.40)
[2024-01-18 12:25] LABS: ALT (SGPT) 22 U/L (8-55); AST (SGOT) 35 U/L (5-34); Albumin 2.7 g/dL (3.5-5.0); Alkaline Phosphatase 110 U/L (40-110); Anion Gap 12 mmol/L (10-20); BUN (Urea Nitrogen) 56 mg/dL (9.8-20.1); Bilirubin, Total 1.2 mg/dL (0.2-1.2); Calc. Creatinine Clearance 35 mL/min (70-130); Calcium 7.5 mg/dL (7.8-10.44); Carbon Dioxide 17 mmol/L (22-29); Chloride 118 mmol/L (98-107); Estimated GFR 30; Glucose 118 mg/dL (70-105); Magnesium 1.9 mg/dL (1.6-2.6); Protein, Total 4.7 g/dL (6.0-8.3); Sodium 143 mmol/L (136-145)
[2024-01-18 12:48] LABS: Band 2 % (5-11); Eosinophils 15 % (0-10); Lymphocytes 7 % (21-51); Metamyelocyte 1 % (0-0); Monocytes 6 % (0-10); Neutrophil 68 % (42-75); Platelet Adequacy Comment Platelets Decreased; Polychromasia SLIGHT = 2-3 cells HPF (0-2); Schistocytes SLIGHT = 2-5 cells HPF (0-1)
[2024-01-18 14:55] LABS: RBC Count-Automated (BF) 170 /cu.mm; WBC/Nucleated-Auto (BF) 39 /cu.mm
[2024-01-18 15:01] LABS: BF Color Colorless; Body Fluid Source Ascites Body Fluid; Clarity Hazy (Clear); Tube # EDTA
[2024-01-18 16:02] LABS: Cell Count Non Hematic 73 %; Lymphocytes 27 %
== END 2024-01-18 12:45 | disposition home or self-care (01) ==
LOC: ULT 10:17
PROVIDERS: ATTEND Internal Medicine Gastroenterology
PROC: 0W9G3ZZ Drainage of Peritoneal Cavity, Percutaneous Approach (ICD-10-PCS; principal; 2024-01-18)
DX: R18.8 Other ascites (principal); K74.60 Unspecified cirrhosis of liver; Z88.5 Allergy status to narcotic agent; Z88.0 Allergy status to penicillin; Z88.2 Allergy status to sulfonamides; Z88.8 Allergy status to other drugs, medicaments and biological substances
CPT/HCPCS: 49083; 80053; 82042; 83735; 84157; 85025; 85060; 85610; 87070; 87205; 89051; J1642; P9047

== ENCOUNTER 2024-01-25 09:56 | Day surgery (SDC) | payer OTHER ==
[2024-01-25] MEDS ORDERED: Albumin 25% 100 ML ONE (10:02)
[2024-01-25] MEDS ORDERED: Lidocaine 1% PF 5 ML VIAL ONE (10:03)
[2024-01-25] MEDS ORDERED: Sodium Bicarbonate 2.5 MEQ/5 ML SDV ONE (10:03)
[2024-01-25 11:59] VITALS: BP 131/87
[2024-01-25 12:45] LABS: RBC Count-Automated (BF) 877 /cu.mm; WBC/Nucleated-Auto (BF) 26 /cu.mm
[2024-01-25 12:51] LABS: BF Color Yellow; Body Fluid Source Ascites Body Fluid; Clarity Hazy (Clear); Tube # EDTA
[2024-01-25 14:51] LABS: BF Segmented Neutrophils 2 %; Cell Count Non Hematic 63 %; Lymphocytes 35 %
== END 2024-01-25 11:40 | disposition home or self-care (01) ==
LOC: ULT 09:56
PROVIDERS: ATTEND Internal Medicine Gastroenterology
PROC: 0W9G30Z Drainage of Peritoneal Cavity with Drainage Device, Percutaneous Approach (ICD-10-PCS; principal; 2024-01-25)
DX: K74.60 Unspecified cirrhosis of liver (principal); R18.8 Other ascites; D64.9 Anemia, unspecified; F41.9 Anxiety disorder, unspecified; K31.819 Angiodysplasia of stomach and duodenum without bleeding; Z98.890 Other specified postprocedural states; Z87.891 Personal history of nicotine dependence; Z79.899 Other long term (current) drug therapy; Z88.5 Allergy status to narcotic agent; Z88.2 Allergy status to sulfonamides; Z88.0 Allergy status to penicillin; Z88.8 Allergy status to other drugs, medicaments and biological substances
CPT/HCPCS: 49083; 82042; 84157; 85060; 87070; 87205; 89051; J1642; P9047

== ENCOUNTER → 2024-02-01 | Day surgery (SDC) | payer OTHER ==
[2024-02-01 12:57] LABS: #Basophils 0.06 10x3/uL (0.0-0.2); %Basophils 1.9 % (0.0-1.0); %Eosinophils 18.3 % (0.0-10.0); %Lymphocytes 14.8 % (21.0-51.0); %Monocytes 14.8 % (0.0-10.0); %Neutrophils 50.2 % (42.0-75.0); Hematocrit 33.3 % (36.0-47.0); Hemoglobin 10.7 g/dL (12.0-16.0); Mean Corpuscular HGB CONC 32.1 g/dL (32.0-36.0); Mean Corpuscular Volume 90.2 fL (78.0-98.0); Platelet Count 37 10x3/uL (130-400); Red Blood Cell (RBC) Count 3.69 mill/uL (4.20-5.40)
[2024-02-01 13:11] LABS: ALT (SGPT) 22 U/L (8-55); AST (SGOT) 39 U/L (5-34); Albumin 3.1 g/dL (3.5-5.0); Alkaline Phosphatase 115 U/L (40-110); Anion Gap 13 mmol/L (10-20); BUN (Urea Nitrogen) 52 mg/dL (9.8-20.1); Bilirubin, Total 1.9 mg/dL (0.2-1.2); Calc. Creatinine Clearance 0 mL/min (70-130); Calcium 8.6 mg/dL (7.8-10.44); Carbon Dioxide 18 mmol/L (22-29); Chloride 116 mmol/L (98-107); Estimated GFR 25; Globulin 2.3 g/dL (2.4-3.5); Glucose 166 mg/dL (70-105); Magnesium 2.1 mg/dL (1.6-2.6); Potassium 3.7 mmol/L (3.5-5.1); Protein, Total 5.4 g/dL (6.0-8.3); Sodium 143 mmol/L (136-145)
[2024-02-01 13:18] LABS: INR-International Normal Ratio 1.5; Prothrombin Time 18.5 sec (12.0-14.7)
[2024-02-01 15:05] LABS: RBC Count-Automated (BF) 92 /cu.mm; WBC/Nucleated-Auto (BF) 78 /cu.mm
[2024-02-01 15:33] LABS: BF Color Yellow; Body Fluid Source Ascites Body Fluid; Clarity Hazy (Clear); Tube # EDTA
[2024-02-01 15:37] LABS: BF Segmented Neutrophils 1 %; Cell Count Non Hematic 76 %; Eosinophils 1 %; Lymphocytes 22 %
== END ==
LOC: ULT 10:04
PROVIDERS: ATTEND Internal Medicine Gastroenterology
PROC: 0W9G30Z Drainage of Peritoneal Cavity with Drainage Device, Percutaneous Approach (ICD-10-PCS; principal; 2024-02-01)
DX: K74.60 Unspecified cirrhosis of liver (principal); R18.8 Other ascites; D64.9 Anemia, unspecified; F41.9 Anxiety disorder, unspecified; E78.00 Pure hypercholesterolemia, unspecified; K31.819 Angiodysplasia of stomach and duodenum without bleeding; I10 Essential (primary) hypertension; Z79.4 Long term (current) use of insulin; Z79.899 Other long term (current) drug therapy; Z88.5 Allergy status to narcotic agent; Z88.2 Allergy status to sulfonamides; Z88.8 Allergy status to other drugs, medicaments and biological substances; Z87.891 Personal history of nicotine dependence
CPT/HCPCS: 49083; 80053; 82042; 83735; 84157; 85025; 85060; 85610; 87070; 87205; 89051; J1642; P9047

== ENCOUNTER 2024-02-11 02:37 | Inpatient (IN) | payer OTHER ==
[2024-02-11 03:23] LABS: Bacteria/HPF 4+ HPF (None Seen); Bilirubin Negative (Negative); Blood, Urine 2+ (Negative); CAUTI Indications for Culture Alt mental st,lethar; Clarity Turbid (Clear); Glucose, Urine (Dipstick) Normal (Negative); Ketone, Urine Negative (Negative); Leukocyte 500 Leu/uL (Negative); Nitrite Negative (Negative); Protein, Urine (Dipstick) 30 mg/dL (Neg-Trace); RBC/HPF 0-3 HPF (0-3); Specific Gravity, Urine 1.012 (1.002-1.036); Urobilinogen Normal mg/dL (Less than 2); WBC/HPF Greater than 50 HPF (0-3); pH, Urine 6.5 (5.0-9.0)
[2024-02-11 03:24] LABS: Urine Culture Reflex Yes Yes
[2024-02-11 03:52] LABS: INR-International Normal Ratio 1.3; Prothrombin Time 15.9 sec (12.0-14.7)
[2024-02-11 03:53] LABS: PTT 40.9 sec (22.9-36.1)
[2024-02-11 03:54] LABS: #Basophils 0.04 10x3/uL (0.0-0.2); %Basophils 1.4 % (0.0-1.0); %Eosinophils 9.4 % (0.0-10.0); %Lymphocytes 10.8 % (21.0-51.0); %Monocytes 12.6 % (0.0-10.0); %Neutrophils 65.4 % (42.0-75.0); Hematocrit 33.2 % (36.0-47.0); Hemoglobin 10.8 g/dL (12.0-16.0); Mean Corpuscular HGB CONC 32.5 g/dL (32.0-36.0); Mean Corpuscular Hemoglobin 28.1 pg (27.0-31.0); Mean Corpuscular Volume 86.5 fL (78.0-98.0); Platelet Count 44 10x3/uL (130-400); Red Blood Cell (RBC) Count 3.84 mill/uL (4.20-5.40)
[2024-02-11 03:59] LABS: ALT (SGPT) 18 U/L (8-55); AST (SGOT) 38 U/L (5-34); Albumin 3.2 g/dL (3.5-5.0); Alkaline Phosphatase 102 U/L (40-110); Anion Gap 12 mmol/L (10-20); BUN (Urea Nitrogen) 61 mg/dL (9.8-20.1); Bilirubin, Total 1.1 mg/dL (0.2-1.2); Calc. Creatinine Clearance 0 mL/min (70-130); Calcium 8.7 mg/dL (7.8-10.44); Carbon Dioxide 19 mmol/L (22-29); Chloride 115 mmol/L (98-107); Estimated GFR 31; Globulin 2.3 g/dL (2.4-3.5); Glucose 126 mg/dL (70-105); Lipase 28 U/L (8-78); Magnesium 2.1 mg/dL (1.6-2.6); Potassium 4.4 mmol/L (3.5-5.1); Protein, Total 5.5 g/dL (6.0-8.3); Sodium 142 mmol/L (136-145)
[2024-02-11 04:03] LABS: Troponin I Less than 0.010 ng/mL (< 0.028)
[2024-02-11] MEDS ORDERED: Sodium Chloride 0.9% 100 ML ONE (04:31)
[2024-02-11] MEDS ORDERED: cefTRIAXone (ROCEPHIN) 2 GM VIAL ONE (04:31)
[2024-02-11] MEDS ORDERED: Lactulose 20 GM (30 mL) UDCUP ONE ×2 (04:31→04:53)
[2024-02-11] MEDS ORDERED: Dextrose 5% in Water 1,000 ML IV PRN (05:10)
[2024-02-11] MEDS ORDERED: Glucagon 1 MG/ML KIT IM PRN (05:10)
[2024-02-11] MEDS ORDERED: Dextrose 50% Abboject 50 ML SYRINGE SLOW IVP PRN (05:10)
[2024-02-11] MEDS ORDERED: HumaLOG 300 UNITS/3 ML VIAL SC PRN (05:10)
[2024-02-11] MEDS ORDERED: Lactulose 20 GM (30 mL) UDCUP PR SCH (09:00)
[2024-02-11] MEDS: Lactated Ringer's 1,000 ML IV SCH (09:43)
[2024-02-11] MEDS: Pantoprazole 40 MG VIAL IVP SCH (09:46)
[2024-02-11] MEDS: Lactulose 10 GM/15 ML Oral Solution PR SCH (10:51)
[2024-02-11] MEDS ORDERED: Albuterol 200 PUFF INH INH PRN (11:20)
[2024-02-11] MEDS ORDERED: Cyclobenzaprine 10 MG TAB PO PRN (11:20)
[2024-02-11] MEDS ORDERED: Calcitriol 0.25 MCG CAP PO SCH (11:30)
[2024-02-11] MEDS: Lactulose 20 GM (30 mL) UDCUP PO SCH ×2 (12:25→20:39)
[2024-02-11] MEDS: Midodrine HCl 5 MG TAB PO SCH (12:27)
[2024-02-11] MEDS ORDERED: HumaLOG 300 UNITS/3 ML VIAL SC SCH (12:30)
[2024-02-11] MEDS ORDERED: Non-Formulary Item 1 EACH (Sodium Bicarbonate [Sodium Bicarbonate] 650 MG Tablet) PO SCH (15:00)
[2024-02-11] MEDS ORDERED: Non-Formulary Item 1 EACH (Ferrous Sulfate [Ferrous Sulfate] 325 MG Tablet) PO SCH (15:00)
[2024-02-11] MEDS: Sodium Bicarbonate Tab 325 MG TAB PO SCH (15:32)
[2024-02-11] MEDS: Ferrous Sulfate 325 MG TAB PO SCH (15:32)
[2024-02-11] MEDS: Mometasone 100 MCG HFA INHALER (RT USE) INH SCH (19:24)
[2024-02-11] MEDS: Rifaximin 550 MG TAB PO SCH (20:39)
[2024-02-11] MEDS: busPIRone HCl 10 MG TAB PO SCH (20:39)
[2024-02-11] MEDS: Pantoprazole DR 40 MG TAB PO SCH (20:39)
[2024-02-11] MEDS: Loratadine 10 MG TAB PO SCH (20:39)
[2024-02-11] MEDS: Cholecalciferol 1,000 UNITS (25 MCG) TAB PO SCH (20:59)
[2024-02-11] MEDS ORDERED: Non-Formulary Item 1 EACH (Cholecalciferol (Vitamin D3) [Vitamin D3] 1000 UNIT Capsule) PO SCH (21:00)
[2024-02-11] MEDS ORDERED: Mometasone 100 MCG HFA INHALER (RT USE) INH SCH (21:00)
[2024-02-11] MEDS: Ondansetron ODT 4 MG TAB PO PRN (23:59)
[2024-02-12] MEDS ORDERED: cefTRIAXone\\ROCEPHIN 1 GM in Sodium Chloride 0.9% 100 ML IVPB SCH (05:00)
[2024-02-12 05:44] LABS: ALT (SGPT) 18 U/L (8-55); AST (SGOT) 39 U/L (5-34); Albumin 2.7 g/dL (3.5-5.0); Alkaline Phosphatase 90 U/L (40-110); Anion Gap 10 mmol/L (10-20); BUN (Urea Nitrogen) 55 mg/dL (9.8-20.1); Bilirubin, Total 1.4 mg/dL (0.2-1.2); Calc. Creatinine Clearance 36 mL/min (70-130); Calcium 8.2 mg/dL (7.8-10.44); Carbon Dioxide 18 mmol/L (22-29); Chloride 117 mmol/L (98-107); Estimated GFR 31; Globulin 2.1 g/dL (2.4-3.5); Glucose 169 mg/dL (70-105); Protein, Total 4.8 g/dL (6.0-8.3); Sodium 141 mmol/L (136-145)
[2024-02-12 06:36] LABS: #Basophils 0.09 10x3/uL (0.0-0.2); %Basophils 1.5 % (0.0-1.0); %Eosinophils 12.2 % (0.0-10.0); %Lymphocytes 9.9 % (21.0-51.0); %Monocytes 13.9 % (0.0-10.0); %Neutrophils 62.3 % (42.0-75.0); Hemoglobin 9.7 g/dL (12.0-16.0); Mean Corpuscular HGB CONC 32.3 g/dL (32.0-36.0); Mean Corpuscular Hemoglobin 28.6 pg (27.0-31.0); Mean Corpuscular Volume 88.5 fL (78.0-98.0); Platelet Count 50 10x3/uL (130-400); RBC Distribution Width 15.9 % (11.5-14.5); Red Blood Cell (RBC) Count 3.39 mill/uL (4.20-5.40)
[2024-02-12] MEDS: Magnesium Oxide 250 MG TAB PO SCH (08:06)
[2024-02-12] MEDS: Folic Acid 1 MG TAB PO SCH (08:07)
[2024-02-12] MEDS: Ciprofloxacin 500 MG TAB PO SCH (08:07)
[2024-02-12] MEDS: Atorvastatin Calcium 10 MG TAB PO SCH (08:07)
[2024-02-12] MEDS: BuPROPion XL 150 MG ER.TAB PO SCH (08:07)
[2024-02-12] MEDS: Insulin Glargine 30 UNITS/0.3 ML VIAL SC SCH (08:07)
[2024-02-12] MEDS: Cyanocobalamin (Vitamin B-12) 1,000 MCG TAB PO SCH (08:07)
[2024-02-12] MEDS ORDERED: CYANOCOBALAMIN 2000 MCG PO SCH (09:00)
[2024-02-12] MEDS ORDERED: Non-Formulary Item 1 EACH (Bupropion Hcl [Wellbutrin Xl] 300 MG Tab.Er.24h) PO SCH (09:00)
[2024-02-12] MEDS ORDERED: [UNRECOGNIZED DRUG - OTHER] PO SCH (09:00)
[2024-02-12] MEDS: traMADol HCl 50 MG TAB PO PRN (10:38)
[2024-02-12 12:07] VITALS: BMI 26.5
[2024-02-13 05:48] LABS: Hematocrit 33.5 % (36.0-47.0); Hemoglobin 10.7 g/dL (12.0-16.0); Mean Corpuscular HGB CONC 31.9 g/dL (32.0-36.0); Mean Corpuscular Hemoglobin 28.1 pg (27.0-31.0); Mean Corpuscular Volume 87.9 fL (78.0-98.0); Mean Platelet Volume 12.8 fL (7.4-10.4); Platelet Count 67 10x3/uL (130-400); RBC Distribution Width 15.9 % (11.5-14.5); Red Blood Cell (RBC) Count 3.81 mill/uL (4.20-5.40)
[2024-02-13 06:19] LABS: ALT (SGPT) 26 U/L (8-55); AST (SGOT) 49 U/L (5-34); Alkaline Phosphatase 110 U/L (40-110); Anion Gap 15 mmol/L (10-20); BUN (Urea Nitrogen) 53 mg/dL (9.8-20.1); Calc. Creatinine Clearance 34 mL/min (70-130); Calcium 8.4 mg/dL (7.8-10.44); Carbon Dioxide 17 mmol/L (22-29); Chloride 114 mmol/L (98-107); Estimated GFR 29; Globulin 2.6 g/dL (2.4-3.5); Glucose 96 mg/dL (70-105); Potassium 3.7 mmol/L (3.5-5.1); Protein, Total 5.6 g/dL (6.0-8.3); Sodium 142 mmol/L (136-145)
[2024-02-13 06:36] LABS: Eosinophils 15 % (0-10); Lymphocytes 6 % (21-51); Monocytes 13 % (0-10); Neutrophil 64 % (42-75); Platelet Adequacy Comment Platelets Decreased; RBC Morphology Within Normal Limits
[2024-02-13 08:13] VITALS: BP 116/61; TEMP 98.1
[2024-02-14] MEDS ORDERED: Calcitriol 0.25 MCG CAP PO SCH (09:00)
== END 2024-02-13 10:31 | disposition home or self-care (01) | DRG 442 ==
LOC: ERS 02:37 → T4-A 06:29
PROVIDERS: ADMIT Family Medicine; ATTEND Family Medicine
PROC: 0W9G3ZX Drainage of Peritoneal Cavity, Percutaneous Approach, Diagnostic (ICD-10-PCS; principal; 2024-02-12)
DX: K72.10 Chronic hepatic failure without coma (principal); D61.818 Other pancytopenia; N13.2 Hydronephrosis with renal and ureteral calculous obstruction; R18.8 Other ascites; N39.0 Urinary tract infection, site not specified; N18.32 Chronic kidney disease, stage 3b; E11.22 Type 2 diabetes mellitus with diabetic chronic kidney disease; K21.9 Gastro-esophageal reflux disease without esophagitis; F41.9 Anxiety disorder, unspecified; F32.9 Major depressive disorder, single episode, unspecified; K74.60 Unspecified cirrhosis of liver; I95.1 Orthostatic hypotension; R33.9 Retention of urine, unspecified; Z87.891 Personal history of nicotine dependence; Z88.8 Allergy status to other drugs, medicaments and biological substances; Z88.5 Allergy status to narcotic agent; Z88.2 Allergy status to sulfonamides; Z88.6 Allergy status to analgesic agent; Z91.048 Other nonmedicinal substance allergy status; Z79.899 Other long term (current) drug therapy; Z79.4 Long term (current) use of insulin; Z90.49 Acquired absence of other specified parts of digestive tract
CPT/HCPCS: 36415; 36416; 49083; 51701; 70450; 71045; 72125; 76705; 80053; 81001; 82140; 83605; 83690; 83735; 83880; 84443; 84484; 85025; 85610; 85730; 87040; 87077; 87086; 87149; 87186; 93005; 96365; C9113; J0696; J1815; J3490; J7120; Q0162

== ENCOUNTER 2024-02-14 22:21 | Emergency (ER) | payer OTHER ==
[2024-02-15] MEDS ORDERED: traMADol HCl 50 MG TAB ONE (00:40)
[2024-02-15 02:46] LABS: #Basophils 0.06 10x3/uL (0.0-0.2); %Basophils 1.2 % (0.0-1.0); %Eosinophils 10.5 % (0.0-10.0); %Lymphocytes 9.3 % (21.0-51.0); %Monocytes 13.7 % (0.0-10.0); %Neutrophils 64.9 % (42.0-75.0); Hematocrit 30.3 % (36.0-47.0); Hemoglobin 9.7 g/dL (12.0-16.0); Mean Corpuscular Hemoglobin 28.8 pg (27.0-31.0); Mean Corpuscular Volume 89.9 fL (78.0-98.0); Platelet Count 50 10x3/uL (130-400); RBC Distribution Width 15.6 % (11.5-14.5); Red Blood Cell (RBC) Count 3.37 mill/uL (4.20-5.40)
[2024-02-15 03:04] LABS: Bilirubin Negative (Negative); Blood, Urine 1+ (Negative); CAUTI Indications for Culture Dysuria,urgency,freq; Clarity Clear (Clear); Glucose, Urine (Dipstick) Normal (Negative); Ketone, Urine Negative (Negative); Leukocyte 250 Leu/uL (Negative); Nitrite Negative (Negative); Protein, Urine (Dipstick) Negative (Neg-Trace); Specific Gravity, Urine 1.013 (1.002-1.036); Squamous Epithelial 0-3 HPF (0-3); Urobilinogen Normal mg/dL (Less than 2); WBC/HPF 21-50 HPF (0-3); pH, Urine 5.5 (5.0-9.0)
[2024-02-15 03:05] LABS: Bacteria/HPF Rare-Few HPF (None Seen)
[2024-02-15 03:06] LABS: Urine Culture Reflex Yes Yes
[2024-02-15 03:09] LABS: Platelet Adequacy Comment Platelets Decreased; RBC Morphology Within Normal Limits
[2024-02-15 06:14] LABS: Albumin 3.2 g/dL (3.5-5.0); Chloride 113 mmol/L (98-107); Potassium 4.6 mmol/L (3.5-5.1); Sodium 137 mmol/L (136-145)
[2024-02-15 06:15] LABS: Calcium 8.3 mg/dL (7.8-10.44); Glucose 136 mg/dL (70-105)
[2024-02-15 06:16] LABS: Globulin 2.2 g/dL (2.4-3.5); Protein, Total 5.4 g/dL (6.0-8.3)
[2024-02-15 06:17] LABS: Anion Gap 10 mmol/L (10-20); Carbon Dioxide 19 mmol/L (22-29)
[2024-02-15 06:18] LABS: Alkaline Phosphatase 109 U/L (40-110); Bilirubin, Total 0.8 mg/dL (0.2-1.2)
[2024-02-15 06:19] LABS: BUN (Urea Nitrogen) 54 mg/dL (9.8-20.1); Calc. Creatinine Clearance 0 mL/min (70-130); Estimated GFR 30
[2024-02-15 06:21] LABS: ALT (SGPT) 22 U/L (8-55); AST (SGOT) 45 U/L (5-34)
== END 2024-02-15 03:50 | disposition home or self-care (01) ==
LOC: ERS 22:21
DX: N39.0 Urinary tract infection, site not specified (principal); E11.9 Type 2 diabetes mellitus without complications; K21.9 Gastro-esophageal reflux disease without esophagitis; Z87.891 Personal history of nicotine dependence; Z79.4 Long term (current) use of insulin; Z79.899 Other long term (current) drug therapy
CPT/HCPCS: 36415; 51702; 74176; 80053; 81001; 83690; 85025; 87086

== ENCOUNTER 2024-02-15 17:28 | Inpatient (IN) | payer OTHER ==
[2024-02-15] MEDS ORDERED: fentaNYL 50 mcg/mL 1 mL Vial ONE ×2 (18:34→20:42)
[2024-02-15 20:51] LABS: #Basophils 0.05 10x3/uL (0.0-0.2); %Basophils 0.6 % (0.0-1.0); %Eosinophils 2.1 % (0.0-10.0); %Lymphocytes 3.7 % (21.0-51.0); %Neutrophils 84.8 % (42.0-75.0); Hematocrit 25.5 % (36.0-47.0); Hemoglobin 8.2 g/dL (12.0-16.0); Mean Corpuscular HGB CONC 32.2 g/dL (32.0-36.0); Mean Corpuscular Hemoglobin 28.8 pg (27.0-31.0); Mean Corpuscular Volume 89.5 fL (78.0-98.0); Mean Platelet Volume 12.2 fL (7.4-10.4); Platelet Count 50 10x3/uL (130-400); RBC Distribution Width 15.6 % (11.5-14.5); Red Blood Cell (RBC) Count 2.85 mill/uL (4.20-5.40)
[2024-02-15 21:00] LABS: ALT (SGPT) 26 U/L (8-55); AST (SGOT) 45 U/L (5-34); Albumin 3.3 g/dL (3.5-5.0); Alkaline Phosphatase 92 U/L (40-110); Anion Gap 15 mmol/L (10-20); BUN (Urea Nitrogen) 54 mg/dL (9.8-20.1); Bilirubin, Total 1.1 mg/dL (0.2-1.2); Calc. Creatinine Clearance 0 mL/min (70-130); Calcium 8.5 mg/dL (7.8-10.44); Carbon Dioxide 14 mmol/L (22-29); Chloride 110 mmol/L (98-107); Estimated GFR 34; Globulin 1.9 g/dL (2.4-3.5); Glucose 89 mg/dL (70-105); Lipase 43 U/L (8-78); Magnesium 1.8 mg/dL (1.6-2.6); Protein, Total 5.2 g/dL (6.0-8.3); Sodium 134 mmol/L (136-145)
[2024-02-15 21:01] LABS: Troponin I Less than 0.010 ng/mL (< 0.028)
[2024-02-15 21:09] LABS: Bacteria/HPF None Seen HPF (None Seen); Bilirubin Negative (Negative); Blood, Urine 2+ (Negative); CAUTI Indications for Culture Alt mental st,lethar; Clarity Clear (Clear); Glucose, Urine (Dipstick) Normal (Negative); Ketone, Urine Negative (Negative); Leukocyte Negative Leu/uL (Negative); Nitrite Negative (Negative); Protein, Urine (Dipstick) 10 mg/dL (Neg-Trace); Specific Gravity, Urine 1.014 (1.002-1.036); Squamous Epithelial 0-3 HPF (0-3); Urobilinogen Normal mg/dL (Less than 2); WBC/HPF 0-3 HPF (0-3); pH, Urine 5.5 (5.0-9.0)
[2024-02-15 21:13] LABS: Urine Culture Reflex No No
[2024-02-15] MEDS ORDERED: Ipratropium/Albuterol 3 ML NEB NEB PRN (23:54)
[2024-02-16] MEDS ORDERED: Dextrose 50% Abboject 50 ML SYRINGE SLOW IVP PRN
[2024-02-16] MEDS ORDERED: Dextrose 5% in Water 1,000 ML IV PRN
[2024-02-16] MEDS ORDERED: Glucagon 1 MG/ML KIT IM PRN
[2024-02-16 00:03] LABS: Lactic Acid 3.8 mmol/L (0.5-2.2)
[2024-02-16] MEDS ORDERED: Piperacillin/Tazobactam 3.375 GM in Sodium Chloride 0.9% 100 ML IVPB SCH (00:30)
[2024-02-16] MEDS ORDERED: Albuterol 200 PUFF (6.7GM INHALER) INH PRN (00:51)
[2024-02-16] MEDS: Sodium Chloride 0.9% 1,000 ML IV SCH ×2 (02:24→05:53)
[2024-02-16] MEDS: Albumin 5% 25 GM (500 mL) BOT IVPB SCH (02:25)
[2024-02-16 03:17] VITALS: BMI 23.4
[2024-02-16 04:52] LABS: Bilirubin Negative (Negative); Blood, Urine 2+ (Negative); CAUTI Indications for Culture Alt mental st,lethar; Clarity Clear (Clear); Glucose, Urine (Dipstick) Normal (Negative); Ketone, Urine Negative (Negative); Leukocyte 25 Leu/uL (Negative); Nitrite Negative (Negative); Protein, Urine (Dipstick) Negative (Neg-Trace); Specific Gravity, Urine 1.013 (1.002-1.036); Squamous Epithelial 0-3 HPF (0-3); Urobilinogen Normal mg/dL (Less than 2); pH, Urine 5.5 (5.0-9.0)
[2024-02-16] MEDS: fentaNYL 50 mcg/mL 1 mL Vial SLOW IVP SCH (04:56)
[2024-02-16 04:58] LABS: Bacteria/HPF 1+ HPF (None Seen); Urine Culture Reflex No No
[2024-02-16 06:03] LABS: #Basophils Less than 0.03 10x3/uL (0.0-0.2); #Eosinphils Less than 0.03 10x3/uL (0.0-0.7); %Basophils 0.2 % (0.0-1.0); %Lymphocytes 3.5 % (21.0-51.0); %Monocytes 9.3 % (0.0-10.0); %Neutrophils 86.2 % (42.0-75.0); Hematocrit 21.1 % (36.0-47.0); Mean Corpuscular HGB CONC 33.2 g/dL (32.0-36.0); Mean Corpuscular Hemoglobin 29.2 pg (27.0-31.0); Mean Corpuscular Volume 87.9 fL (78.0-98.0); Mean Platelet Volume 12.7 fL (7.4-10.4); Platelet Count 54 10x3/uL (130-400); RBC Distribution Width 15.6 % (11.5-14.5)
[2024-02-16 06:04] LABS: INR-International Normal Ratio 1.7; Prothrombin Time 19.6 sec (12.0-14.7)
[2024-02-16 06:05] LABS: Anion Gap 12 mmol/L (10-20); BUN (Urea Nitrogen) 54 mg/dL (9.8-20.1); Calc. Creatinine Clearance 38 mL/min (70-130); Calcium 8.6 mg/dL (7.8-10.44); Carbon Dioxide 16 mmol/L (22-29); Chloride 112 mmol/L (98-107); Estimated GFR 37; Glucose 68 mg/dL (70-105); PTT 49.5 sec (22.9-36.1); Potassium 5.7 mmol/L (3.5-5.1); Sodium 134 mmol/L (136-145)
[2024-02-16 07:37] LABS: #Basophils 0.03 10x3/uL (0.0-0.2); #Eosinphils Less than 0.03 10x3/uL (0.0-0.7); %Basophils 0.4 % (0.0-1.0); %Monocytes 10.1 % (0.0-10.0); %Neutrophils 84.9 % (42.0-75.0); Hematocrit 20.9 % (36.0-47.0); Hemoglobin 6.9 g/dL (12.0-16.0); Mean Corpuscular Hemoglobin 29.1 pg (27.0-31.0); Mean Corpuscular Volume 88.2 fL (78.0-98.0); Mean Platelet Volume 12.7 fL (7.4-10.4); Platelet Count 54 10x3/uL (130-400); RBC Distribution Width 15.8 % (11.5-14.5); Red Blood Cell (RBC) Count 2.37 mill/uL (4.20-5.40)
[2024-02-16 07:51] LABS: Anion Gap 13 mmol/L (10-20); BUN (Urea Nitrogen) 54 mg/dL (9.8-20.1); Calc. Creatinine Clearance 37 mL/min (70-130); Calcium 8.5 mg/dL (7.8-10.44); Carbon Dioxide 16 mmol/L (22-29); Chloride 112 mmol/L (98-107); Estimated GFR 36; Glucose 64 mg/dL (70-105); Potassium 5.8 mmol/L (3.5-5.1); Sodium 135 mmol/L (136-145)
[2024-02-16] MEDS: Polyethylene Glycol 3350 17 GM Packet PO SCH (10:12)
[2024-02-16] MEDS: Lactulose 20 GM (30 mL) UDCUP PO SCH (10:14)
[2024-02-16] MEDS: Magnesium Oxide 250 MG TAB PO SCH (10:15)
[2024-02-16] MEDS: Ferrous Sulfate 325 MG TAB PO SCH (10:15)
[2024-02-16] MEDS: Senokot S 8.6-50 MG TAB PO SCH (10:15)
[2024-02-16] MEDS: Sodium Bicarbonate Tab 325 MG TAB PO SCH (10:15)
[2024-02-16] MEDS: BuPROPion XL 150 MG ER.TAB PO SCH (10:16)
[2024-02-16] MEDS: Ciprofloxacin 500 MG TAB PO SCH (10:16)
[2024-02-16] MEDS: Atorvastatin Calcium 10 MG TAB PO SCH (10:17)
[2024-02-16] MEDS: Famotidine/PF 20 mg/2ml Vial SLOW IVP SCH (10:17)
[2024-02-16] MEDS: Morphine 2 MG/ML VIAL SLOW IVP PRN (10:17)
[2024-02-16] MEDS: Pantoprazole DR 40 MG TAB PO SCH (10:17)
[2024-02-16] MEDS: Midodrine HCl 5 MG TAB PO SCH (10:19)
[2024-02-16] MEDS: busPIRone HCl 10 MG TAB PO SCH (10:19)
[2024-02-16] MEDS ORDERED: Iopamidol-370 76% 500 ML MDV (1 ML CHARGE) ONE (10:22)
[2024-02-16] MEDS: Ondansetron PF 4 MG/2 ML Vial IVP PRN (10:47)
[2024-02-16] MEDS: Rifaximin 550 MG TAB PO SCH (12:07)
[2024-02-16] MEDS ORDERED: Dextrose 25% Abboject 10 ML SYRINGE SLOW IVP SCH (18:15)
[2024-02-16 18:26] LABS: Actual Bicarbonate (HCO3a) 15.6 mEq/L (22-28); Base Excess (BEa) -10.4 mEq/L (-2.0 to +3.0); CO2 Tension 34.8 mmHg (35.0-45.0); Calcium, Ionized (arterial) 1.34 mmol/L (1.12-1.30); Carboxyhemoglobin (COHb) 0.6 gm% (0.0-3.0); Hematocrit-ABG 24 % (36.0-47.0); Hemoglobin (Hb) 8.3 g/dL (12.0-16.0); Potassium - ABG Lab 4.53 mmol/L (3.70-5.30)
[2024-02-16 18:31] LABS: Puncture Site RBA
[2024-02-16] MEDS ORDERED: Propofol BOLUS 1,000 MG/100 ML VIAL IV PRN (18:45)
[2024-02-16] MEDS ORDERED: Fentanyl BOLUS 250 ML IVPB PRN (18:45)
[2024-02-16] MEDS ORDERED: Morphine 2 MG/ML VIAL SLOW IVP PRN (18:45)
[2024-02-16] MEDS ORDERED: DISCONTINUE PREVIOUS NARCOTIC PAIN MEDICATIONS AND BENZODIAZEPINES FS SCH (18:45)
[2024-02-16] MEDS ORDERED: Lorazepam 2 MG/ML VIAL SLOW IVP PRN (18:45)
[2024-02-16 18:54] LABS: #Basophils 0.06 10x3/uL (0.0-0.2); %Basophils 0.6 % (0.0-1.0); %Eosinophils 1.3 % (0.0-10.0); %Lymphocytes 6.7 % (21.0-51.0); %Monocytes 14.6 % (0.0-10.0); Hematocrit 25.2 % (36.0-47.0); Hemoglobin 8.1 g/dL (12.0-16.0); Mean Corpuscular HGB CONC 32.1 g/dL (32.0-36.0); Mean Corpuscular Hemoglobin 29.1 pg (27.0-31.0); Mean Corpuscular Volume 90.6 fL (78.0-98.0); Mean Platelet Volume 11.4 fL (7.4-10.4); Platelet Count 57 10x3/uL (130-400); RBC Distribution Width 15.5 % (11.5-14.5); Red Blood Cell (RBC) Count 2.78 mill/uL (4.20-5.40)
[2024-02-16] MEDS: Metoprolol Tartrate 5 MG (5 mL) VIAL IVP SCH (18:54)
[2024-02-16] MEDS: Insulin Regular, Human 100 UNIT/ML 10 ML VIAL IVP SCH (18:55)
[2024-02-16] MEDS: Dextrose 50% Abboject 50 ML SYRINGE SLOW IVP SCH (18:55)
[2024-02-16] MEDS: Propofol 1,000 MG/100 ML VIAL IV PRN (18:56)
[2024-02-16] MEDS: Propofol 1,000 MG/100 ML VIAL IV ONE (18:57)
[2024-02-16] MEDS: Dextrose 50% Abboject 50 ML SYRINGE ONE (18:57)
[2024-02-16] MEDS: Insulin Regular, Human 100 UNIT/ML 10 ML VIAL ONE (18:57)
[2024-02-16] MEDS: Calcium Chloride 1 GM/10 ML Abboject SYRINGE ONE (18:58)
[2024-02-16 19:00] LABS: Lactic Acid 2.7 mmol/L (0.5-2.2)
[2024-02-16 19:03] LABS: Anion Gap 12 mmol/L (10-20); BUN (Urea Nitrogen) 53 mg/dL (9.8-20.1); Calc. Creatinine Clearance 34 mL/min (70-130); Calcium 9.1 mg/dL (7.8-10.44); Carbon Dioxide 15 mmol/L (22-29); Chloride 112 mmol/L (98-107); Estimated GFR 32; Glucose 142 mg/dL (70-105); Potassium 4.6 mmol/L (3.5-5.1); Sodium 134 mmol/L (136-145)
[2024-02-16 19:09] LABS: Troponin I 0.017 ng/mL (< 0.028)
[2024-02-16 19:11] LABS: INR-International Normal Ratio 1.7; PTT 47.4 sec (22.9-36.1); Prothrombin Time 19.8 sec (12.0-14.7)
[2024-02-16 19:18] LABS: D-Dimer Test 9.72 mcg/mL (0.27-0.43)
[2024-02-16] MEDS: Fentanyl CADD 100 ML IV SCH (19:58)
[2024-02-16 20:06] LABS: Amphetamine Not Detected (NotDetected); Barbiturates Screen Not Detected (NotDetected); Benzodiazepine Screen Not Detected (NotDetected); Cocaine Metabolite Screen Not Detected (NotDetected); Methadone Not Detected (NotDetected); Methamphetamine Not Detected (NotDetected); Opiate Screen Detected (NotDetected); Oxycodone Screen Not Detected (NotDetected); Phencyclidine (PCP) Not Detected (NotDetected); THC/Cannabinoid Screen Not Detected (NotDetected); Tricyclic Screen Not Detected (NotDetected)
[2024-02-16] MEDS: Sodium Bicarbonate 75 MEQ in Sodium Chloride 0.45% 1,000 ML IV SCH (20:29)
[2024-02-16] MEDS ORDERED: Midodrine HCl 5 MG TAB PER TUBE SCH (21:41)
[2024-02-16] MEDS: Cefepime 1 GM in Sodium Chloride 0.9% 100 ML IVPB SCH (22:01)
[2024-02-17 04:46] LABS: #Basophils 0.04 10x3/uL (0.0-0.2); %Basophils 0.7 % (0.0-1.0); %Eosinophils 4.5 % (0.0-10.0); %Lymphocytes 6.1 % (21.0-51.0); %Monocytes 16.2 % (0.0-10.0); Hematocrit 22.8 % (36.0-47.0); Hemoglobin 7.6 g/dL (12.0-16.0); Mean Corpuscular HGB CONC 33.3 g/dL (32.0-36.0); Mean Corpuscular Hemoglobin 28.9 pg (27.0-31.0); Mean Corpuscular Volume 86.7 fL (78.0-98.0); Mean Platelet Volume 11.6 fL (7.4-10.4); Platelet Count 38 10x3/uL (130-400); RBC Distribution Width 15.7 % (11.5-14.5); Red Blood Cell (RBC) Count 2.63 mill/uL (4.20-5.40)
[2024-02-17 04:52] LABS: INR-International Normal Ratio 1.5; Prothrombin Time 18.1 sec (12.0-14.7)
[2024-02-17 05:04] LABS: ALT (SGPT) 17 U/L (8-55); AST (SGOT) 36 U/L (5-34); Albumin 2.9 g/dL (3.5-5.0); Alkaline Phosphatase 62 U/L (40-110); Anion Gap 10 mmol/L (10-20); BUN (Urea Nitrogen) 56 mg/dL (9.8-20.1); Bilirubin, Total 2.1 mg/dL (0.2-1.2); Calc. Creatinine Clearance 36 mL/min (70-130); Calcium 8.4 mg/dL (7.8-10.44); Carbon Dioxide 17 mmol/L (22-29); Chloride 111 mmol/L (98-107); Estimated GFR 34; Globulin 1.7 g/dL (2.4-3.5); Glucose 138 mg/dL (70-105); Potassium 4.4 mmol/L (3.5-5.1); Protein, Total 4.6 g/dL (6.0-8.3); Sodium 134 mmol/L (136-145)
[2024-02-17] MEDS ORDERED: DOBUTamine 500 mg/250 ml 250 ML IVPB SCH (09:30)
[2024-02-17 09:38] LABS: Actual Bicarbonate (HCO3a) 17.5 mEq/L (22-28); Base Excess (BEa) -6.2 mEq/L (-2.0 to +3.0); CO2 Tension 28.3 mmHg (35.0-45.0); Calcium, Ionized (arterial) 1.13 mmol/L (1.12-1.30); Carboxyhemoglobin (COHb) 1.1 gm% (0.0-3.0); Hematocrit-ABG 24 % (36.0-47.0); Hemoglobin (Hb) 8.3 g/dL (12.0-16.0); Potassium - ABG Lab 4.12 mmol/L (3.70-5.30)
[2024-02-17 09:44] LABS: Puncture Site RRA
[2024-02-17 09:45] LABS: ALV-art Gradient 84.525 mmHg (0-20)
[2024-02-17] MEDS: Rifaximin 550 MG TAB PER TUBE SCH (09:55)
[2024-02-17] MEDS: Magnesium Oxide 250 MG TAB PER TUBE SCH (09:58)
[2024-02-17] MEDS: Lactulose 20 GM (30 mL) UDCUP PER TUBE SCH (09:59)
[2024-02-17] MEDS: Atorvastatin Calcium 10 MG TAB PER TUBE SCH (09:59)
[2024-02-17] MEDS: Senokot S 8.6-50 MG TAB PER TUBE SCH (09:59)
[2024-02-17] MEDS: Famotidine/PF 20 mg/2ml Vial SLOW IVP SCH (10:00)
[2024-02-17] MEDS: Piperacillin/Tazobactam 3.375 GM in Sodium Chloride 0.9% 100 ML IVPB SCH ×2 (11:30→16:00)
[2024-02-17] MEDS: busPIRone HCl 10 MG TAB PER TUBE SCH (11:31)
[2024-02-17] MEDS ORDERED: Piperacillin/Tazobactam 4.5 GM in Sodium Chloride 0.9% 100 ML IVPB SCH (12:00)
[2024-02-17 16:56] LABS: #Basophils 0.04 10x3/uL (0.0-0.2); %Basophils 0.7 % (0.0-1.0); %Eosinophils 6.9 % (0.0-10.0); %Lymphocytes 4.6 % (21.0-51.0); %Monocytes 11.3 % (0.0-10.0); %Neutrophils 76.2 % (42.0-75.0); Hematocrit 22.9 % (36.0-47.0); Hemoglobin 7.7 g/dL (12.0-16.0); Mean Corpuscular HGB CONC 33.6 g/dL (32.0-36.0); Mean Corpuscular Volume 89.1 fL (78.0-98.0); Mean Platelet Volume 13.1 fL (7.4-10.4); Platelet Count 37 10x3/uL (130-400); RBC Distribution Width 15.9 % (11.5-14.5); Red Blood Cell (RBC) Count 2.57 mill/uL (4.20-5.40)
[2024-02-17] MEDS: Albumin 5% 12.5 GM (250 mL) BOT IVPB SCH (17:51)
[2024-02-18 05:05] LABS: #Basophils 0.05 10x3/uL (0.0-0.2); %Basophils 0.7 % (0.0-1.0); %Eosinophils 6.9 % (0.0-10.0); %Lymphocytes 2.9 % (21.0-51.0); %Neutrophils 80.9 % (42.0-75.0); Hematocrit 22.6 % (36.0-47.0); Hemoglobin 7.5 g/dL (12.0-16.0); Mean Corpuscular HGB CONC 33.2 g/dL (32.0-36.0); Mean Corpuscular Hemoglobin 29.2 pg (27.0-31.0); Mean Corpuscular Volume 87.9 fL (78.0-98.0); Mean Platelet Volume 11.3 fL (7.4-10.4); Platelet Count 45 10x3/uL (130-400); RBC Distribution Width 16.1 % (11.5-14.5); Red Blood Cell (RBC) Count 2.57 mill/uL (4.20-5.40)
[2024-02-18 05:12] LABS: INR-International Normal Ratio 1.6
[2024-02-18 05:24] LABS: ALT (SGPT) 20 U/L (8-55); AST (SGOT) 32 U/L (5-34); Albumin 2.8 g/dL (3.5-5.0); Alkaline Phosphatase 65 U/L (40-110); Anion Gap 12 mmol/L (10-20); BUN (Urea Nitrogen) 55 mg/dL (9.8-20.1); Bilirubin, Total 1.6 mg/dL (0.2-1.2); Calc. Creatinine Clearance 30 mL/min (70-130); Calcium 8.1 mg/dL (7.8-10.44); Carbon Dioxide 19 mmol/L (22-29); Chloride 110 mmol/L (98-107); Estimated GFR 28; Globulin 1.6 g/dL (2.4-3.5); Glucose 102 mg/dL (70-105); Potassium 3.6 mmol/L (3.5-5.1); Protein, Total 4.4 g/dL (6.0-8.3); Sodium 137 mmol/L (136-145)
[2024-02-18] MEDS: DC Sedation Protocol FS ONE (10:45)
[2024-02-18] MEDS ORDERED: CEFAZOLIN 2 GM in Sodium Chloride 0.9% 100 ML IVPB SCH (11:30)
[2024-02-18] MEDS: Midodrine HCl 5 MG TAB PO SCH (21:06)
[2024-02-18 21:11] LABS: #Basophils 0.08 10x3/uL (0.0-0.2); %Basophils 0.7 % (0.0-1.0); %Eosinophils 4.4 % (0.0-10.0); %Lymphocytes 4.1 % (21.0-51.0); %Monocytes 9.4 % (0.0-10.0); Hematocrit 24.7 % (36.0-47.0); Hemoglobin 8.1 g/dL (12.0-16.0); Mean Corpuscular HGB CONC 32.8 g/dL (32.0-36.0); Mean Corpuscular Hemoglobin 29.6 pg (27.0-31.0); Mean Corpuscular Volume 90.1 fL (78.0-98.0); Mean Platelet Volume 12.2 fL (7.4-10.4); Platelet Count 67 10x3/uL (130-400); RBC Distribution Width 16.1 % (11.5-14.5); Red Blood Cell (RBC) Count 2.74 mill/uL (4.20-5.40)
[2024-02-18] MEDS: Morphine 2 MG/ML VIAL SLOW IVP PRN (22:09)
[2024-02-19 06:01] LABS: #Basophils 0.05 10x3/uL (0.0-0.2); %Basophils 0.4 % (0.0-1.0); %Eosinophils 3.5 % (0.0-10.0); %Lymphocytes 3.8 % (21.0-51.0); %Neutrophils 80.8 % (42.0-75.0); Hematocrit 22.4 % (36.0-47.0); Hemoglobin 7.4 g/dL (12.0-16.0); Mean Corpuscular Hemoglobin 29.1 pg (27.0-31.0); Mean Corpuscular Volume 88.2 fL (78.0-98.0); Mean Platelet Volume 11.5 fL (7.4-10.4); Platelet Count 76 10x3/uL (130-400); RBC Distribution Width 15.9 % (11.5-14.5); Red Blood Cell (RBC) Count 2.54 mill/uL (4.20-5.40)
[2024-02-19 06:10] LABS: INR-International Normal Ratio 1.6; Prothrombin Time 19.3 sec (12.0-14.7)
[2024-02-19 06:20] LABS: ALT (SGPT) 20 U/L (8-55); AST (SGOT) 29 U/L (5-34); Albumin 2.7 g/dL (3.5-5.0); Alkaline Phosphatase 83 U/L (40-110); Anion Gap 14 mmol/L (10-20); BUN (Urea Nitrogen) 57 mg/dL (9.8-20.1); Bilirubin, Total 2.3 mg/dL (0.2-1.2); Calc. Creatinine Clearance 29 mL/min (70-130); Calcium 7.6 mg/dL (7.8-10.44); Carbon Dioxide 19 mmol/L (22-29); Chloride 107 mmol/L (98-107); Estimated GFR 21; Globulin 1.8 g/dL (2.4-3.5); Glucose 106 mg/dL (70-105); Potassium 3.8 mmol/L (3.5-5.1); Protein, Total 4.5 g/dL (6.0-8.3); Sodium 136 mmol/L (136-145)
[2024-02-19] MEDS: Midodrine HCl 5 MG TAB PO SCH (09:21)
[2024-02-19] MEDS: Lactated Ringer's 1,000 ML IV SCH (09:25)
[2024-02-19] MEDS ORDERED: Lidocaine 1% PF 5 ML VIAL ONE (11:05)
[2024-02-19] MEDS ORDERED: PROPOFOL 200 MG/20 ML VIAL ONE (11:05)
[2024-02-19] MEDS: Lactulose 20 GM (30 mL) UDCUP PO SCH ×2 (11:31→13:58)
[2024-02-19] MEDS: Magnesium Oxide 250 MG TAB PO SCH (11:32)
[2024-02-19] MEDS ORDERED: Ondansetron HCl/PF 4 MG/2 ML Vial IVP PRN (11:57)
[2024-02-19] MEDS: HumaLOG 300 UNITS/3 ML VIAL SC PRN (18:24)
[2024-02-19] MEDS: CEFAZOLIN 2 GM in Sodium Chloride 0.9% 100 ML IVPB SCH (21:17)
[2024-02-19 21:53] LABS: #Basophils 0.09 10x3/uL (0.0-0.2); %Basophils 0.6 % (0.0-1.0); %Eosinophils 1.7 % (0.0-10.0); %Lymphocytes 3.1 % (21.0-51.0); %Monocytes 11.4 % (0.0-10.0); %Neutrophils 82.5 % (42.0-75.0); Hematocrit 21.9 % (36.0-47.0); Hemoglobin 7.3 g/dL (12.0-16.0); Mean Corpuscular HGB CONC 33.3 g/dL (32.0-36.0); Mean Corpuscular Hemoglobin 29.3 pg (27.0-31.0); Mean Platelet Volume 11.1 fL (7.4-10.4); Platelet Count 113 10x3/uL (130-400); RBC Distribution Width 16.2 % (11.5-14.5); Red Blood Cell (RBC) Count 2.49 mill/uL (4.20-5.40)
[2024-02-20 06:25] LABS: Anion Gap 17 mmol/L (10-20); BUN (Urea Nitrogen) 58 mg/dL (9.8-20.1); Calc. Creatinine Clearance 28 mL/min (70-130); Calcium 7.7 mg/dL (7.8-10.44); Carbon Dioxide 17 mmol/L (22-29); Chloride 106 mmol/L (98-107); Estimated GFR 21; Glucose 149 mg/dL (70-105); Magnesium 1.8 mg/dL (1.6-2.6); Phosphorus 3.8 mg/dL (2.3-4.7); Potassium 3.8 mmol/L (3.5-5.1); Sodium 136 mmol/L (136-145)
[2024-02-20 06:30] LABS: #Basophils 0.08 10x3/uL (0.0-0.2); %Basophils 0.7 % (0.0-1.0); %Lymphocytes 4.5 % (21.0-51.0); %Monocytes 13.9 % (0.0-10.0); %Neutrophils 76.4 % (42.0-75.0); Hematocrit 21.1 % (36.0-47.0); Mean Corpuscular HGB CONC 33.2 g/dL (32.0-36.0); Mean Corpuscular Hemoglobin 29.3 pg (27.0-31.0); Mean Corpuscular Volume 88.3 fL (78.0-98.0); Mean Platelet Volume 11.1 fL (7.4-10.4); Platelet Count 103 10x3/uL (130-400); RBC Distribution Width 16.7 % (11.5-14.5); Red Blood Cell (RBC) Count 2.39 mill/uL (4.20-5.40)
[2024-02-20] MEDS ORDERED: Lactated Ringer's 1,000 ML IV SCH (09:15)
[2024-02-20] MEDS: Magnesium Oxide 250 MG TAB PO SCH (10:00)
[2024-02-20] MEDS: Ascorbic Acid 500 mg Chewable Tablet PO SCH (10:02)
[2024-02-20] MEDS: Albumin 25% 25 GM (100 mL) BOT IVPB SCH (12:02)
[2024-02-20] MEDS: Octreotide Acetate 100 MCG/ML VIAL SC SCH (15:47)
[2024-02-20] MEDS: Midodrine HCl 5 MG TAB PO SCH (21:59)
[2024-02-21 07:29] LABS: #Basophils 0.05 10x3/uL (0.0-0.2); %Basophils 0.6 % (0.0-1.0); %Eosinophils 6.6 % (0.0-10.0); %Lymphocytes 5.5 % (21.0-51.0); %Monocytes 15.3 % (0.0-10.0); %Neutrophils 71.3 % (42.0-75.0); Hematocrit 20.8 % (36.0-47.0); Hemoglobin 6.7 g/dL (12.0-16.0); Mean Corpuscular HGB CONC 32.2 g/dL (32.0-36.0); Mean Corpuscular Hemoglobin 29.8 pg (27.0-31.0); Mean Corpuscular Volume 92.4 fL (78.0-98.0); Mean Platelet Volume 10.8 fL (7.4-10.4); Platelet Count 90 10x3/uL (130-400); RBC Distribution Width 17.2 % (11.5-14.5); Red Blood Cell (RBC) Count 2.25 mill/uL (4.20-5.40)
[2024-02-21 09:17] LABS: Anion Gap 17 mmol/L (10-20); BUN (Urea Nitrogen) 60 mg/dL (9.8-20.1); Calc. Creatinine Clearance 29 mL/min (70-130); Calcium 8.2 mg/dL (7.8-10.44); Carbon Dioxide 16 mmol/L (22-29); Chloride 103 mmol/L (98-107); Estimated GFR 19; Glucose 204 mg/dL (70-105); Potassium 3.5 mmol/L (3.5-5.1); Sodium 132 mmol/L (136-145)
[2024-02-21 18:46] LABS: Hematocrit 25.2 % (36.0-47.0); Hemoglobin 8.5 g/dL (12.0-16.0)
[2024-02-21] MEDS: Pantoprazole DR 40 MG TAB PO SCH (22:59)
[2024-02-21] MEDS: Cholecalciferol 1,000 UNITS (25 MCG) TAB PO SCH (22:59)
[2024-02-22 05:40] LABS: %Eosinophils 3.7 % (0.0-10.0); %Monocytes 15.5 % (0.0-10.0); %Neutrophils 74.1 % (42.0-75.0); Hematocrit 25.6 % (36.0-47.0); Hemoglobin 8.5 g/dL (12.0-16.0); Mean Corpuscular HGB CONC 33.2 g/dL (32.0-36.0); Mean Corpuscular Hemoglobin 29.7 pg (27.0-31.0); Mean Corpuscular Volume 89.5 fL (78.0-98.0); Mean Platelet Volume 10.4 fL (7.4-10.4); Platelet Count 104 10x3/uL (130-400); RBC Distribution Width 17.2 % (11.5-14.5); Red Blood Cell (RBC) Count 2.86 mill/uL (4.20-5.40)
[2024-02-22 05:54] LABS: ALT (SGPT) Less than 5 U/L (8-55); AST (SGOT) 19 U/L (5-34); Alkaline Phosphatase 82 U/L (40-110); Anion Gap 18 mmol/L (10-20); BUN (Urea Nitrogen) 62 mg/dL (9.8-20.1); Bilirubin, Total 3.4 mg/dL (0.2-1.2); Calc. Creatinine Clearance 29 mL/min (70-130); Calcium 8.1 mg/dL (7.8-10.44); Carbon Dioxide 17 mmol/L (22-29); Chloride 103 mmol/L (98-107); Estimated GFR 19; Globulin 1.9 g/dL (2.4-3.5); Glucose 190 mg/dL (70-105); Potassium 3.5 mmol/L (3.5-5.1); Protein, Total 4.9 g/dL (6.0-8.3); Sodium 134 mmol/L (136-145)
[2024-02-22] MEDS ORDERED: Ciprofloxacin 500 MG TAB PO SCH (09:00)
[2024-02-22] MEDS: Lactulose 20 GM (30 mL) UDCUP PO SCH (09:18)
[2024-02-22] MEDS: Cipro 250 MG TAB PO SCH (09:24)
[2024-02-23] MEDS: Albumin 25% 25 GM (100 mL) BOT IVPB SCH (00:33)
[2024-02-23] MEDS: Bisacodyl 5 MG TAB PO SCH (09:11)
[2024-02-23 10:05] LABS: #Basophils 0.07 10x3/uL (0.0-0.2); %Basophils 0.7 % (0.0-1.0); %Eosinophils 4.6 % (0.0-10.0); %Lymphocytes 3.6 % (21.0-51.0); %Monocytes 12.2 % (0.0-10.0); %Neutrophils 78.3 % (42.0-75.0); Hematocrit 27.5 % (36.0-47.0); Mean Corpuscular HGB CONC 32.7 g/dL (32.0-36.0); Mean Corpuscular Hemoglobin 29.8 pg (27.0-31.0); Mean Corpuscular Volume 91.1 fL (78.0-98.0); Mean Platelet Volume 10.5 fL (7.4-10.4); Platelet Count 112 10x3/uL (130-400); RBC Distribution Width 18.6 % (11.5-14.5); Red Blood Cell (RBC) Count 3.02 mill/uL (4.20-5.40)
[2024-02-23 10:20] LABS: ALT (SGPT) Less than 5 U/L (8-55); AST (SGOT) 20 U/L (5-34); Albumin 3.7 g/dL (3.5-5.0); Alkaline Phosphatase 85 U/L (40-110); Anion Gap 19 mmol/L (10-20); BUN (Urea Nitrogen) 67 mg/dL (9.8-20.1); Bilirubin, Total 3.6 mg/dL (0.2-1.2); Calc. Creatinine Clearance 29 mL/min (70-130); Calcium 8.8 mg/dL (7.8-10.44); Carbon Dioxide 18 mmol/L (22-29); Chloride 101 mmol/L (98-107); Estimated GFR 18; Glucose 193 mg/dL (70-105); Potassium 3.2 mmol/L (3.5-5.1); Protein, Total 5.7 g/dL (6.0-8.3); Sodium 135 mmol/L (136-145)
[2024-02-23] MEDS: Potassium Chloride 20 MEQ TAB PO SCH (12:48)
[2024-02-23 16:38] VITALS: BMI 32.1
[2024-02-23] MEDS: Pentazocine HCl/Naloxone HCl 50/0.5 MG TAB PO PRN (16:41)
[2024-02-23] MEDS: Insulin Lispro 100 UNIT/ML 10 ML VIAL SC PRN (18:31)
[2024-02-24] MEDS: Albumin 25% 25 GM (100 mL) BOT IVPB SCH (00:22)
[2024-02-24 08:11] LABS: ALT (SGPT) Less than 5 U/L (8-55); AST (SGOT) 15 U/L (5-34); Albumin 4.1 g/dL (3.5-5.0); Alkaline Phosphatase 71 U/L (40-110); Anion Gap 15 mmol/L (10-20); BUN (Urea Nitrogen) 69 mg/dL (9.8-20.1); Bilirubin, Total 3.9 mg/dL (0.2-1.2); Calc. Creatinine Clearance 29 mL/min (70-130); Calcium 8.8 mg/dL (7.8-10.44); Carbon Dioxide 19 mmol/L (22-29); Chloride 102 mmol/L (98-107); Estimated GFR 19; Globulin 1.5 g/dL (2.4-3.5); Glucose 164 mg/dL (70-105); Potassium 3.3 mmol/L (3.5-5.1); Protein, Total 5.6 g/dL (6.0-8.3); Sodium 133 mmol/L (136-145)
[2024-02-24 08:16] LABS: #Basophils 0.05 10x3/uL (0.0-0.2); %Basophils 0.6 % (0.0-1.0); %Eosinophils 7.2 % (0.0-10.0); %Lymphocytes 4.6 % (21.0-51.0); %Monocytes 12.8 % (0.0-10.0); %Neutrophils 74.4 % (42.0-75.0); Hemoglobin 7.8 g/dL (12.0-16.0); Mean Corpuscular HGB CONC 32.5 g/dL (32.0-36.0); Mean Corpuscular Hemoglobin 30.6 pg (27.0-31.0); Mean Corpuscular Volume 94.1 fL (78.0-98.0); Mean Platelet Volume 11.1 fL (7.4-10.4); Platelet Count 81 10x3/uL (130-400); RBC Distribution Width 19.5 % (11.5-14.5); Red Blood Cell (RBC) Count 2.55 mill/uL (4.20-5.40)
[2024-02-24] MEDS: Acetaminophen 325 MG TAB PO SCH (09:04)
[2024-02-24] MEDS: Gabapentin 100 MG CAP PO SCH (09:15)
[2024-02-24] MEDS: Potassium Chloride 20 MEQ TAB PO SCH (09:16)
[2024-02-24] MEDS: traMADol HCl 50 MG TAB PO PRN (21:44)
[2024-02-25 07:00] LABS: ALT (SGPT) Less than 5 U/L (8-55); AST (SGOT) 14 U/L (5-34); Albumin 3.8 g/dL (3.5-5.0); Alkaline Phosphatase 69 U/L (40-110); Anion Gap 17 mmol/L (10-20); BUN (Urea Nitrogen) 74 mg/dL (9.8-20.1); Bilirubin, Total 3.9 mg/dL (0.2-1.2); Calc. Creatinine Clearance 31 mL/min (70-130); Calcium 8.7 mg/dL (7.8-10.44); Carbon Dioxide 17 mmol/L (22-29); Chloride 103 mmol/L (98-107); Estimated GFR 20; Globulin 1.4 g/dL (2.4-3.5); Glucose 150 mg/dL (70-105); Potassium 3.1 mmol/L (3.5-5.1); Protein, Total 5.2 g/dL (6.0-8.3); Sodium 134 mmol/L (136-145)
[2024-02-25 07:43] LABS: #Basophils 0.05 10x3/uL (0.0-0.2); %Basophils 0.8 % (0.0-1.0); %Lymphocytes 4.9 % (21.0-51.0); %Monocytes 14.3 % (0.0-10.0); %Neutrophils 69.5 % (42.0-75.0); Hematocrit 26.3 % (36.0-47.0); Hemoglobin 8.3 g/dL (12.0-16.0); Mean Corpuscular HGB CONC 31.6 g/dL (32.0-36.0); Mean Corpuscular Hemoglobin 29.7 pg (27.0-31.0); Mean Corpuscular Volume 94.3 fL (78.0-98.0); Platelet Count 85 10x3/uL (130-400); RBC Distribution Width 20.6 % (11.5-14.5); Red Blood Cell (RBC) Count 2.79 mill/uL (4.20-5.40)
[2024-02-25] MEDS: Potassium Chloride 20 MEQ TAB PO SCH (10:39)
[2024-02-26 09:51] LABS: Anisocytosis MODERATE=16-30 cells HPF (0-5); Band 4 % (5-11); Eosinophils 5 % (0-10); Lymphocytes 6 % (21-51); Macrocytosis SLIGHT = 6-15 cells HPF (0-5); Monocytes 17 % (0-10); Neutrophil 67 % (42-75); Ovalocytes MODERATE= 6-15 cells HPF (0-1); Platelet Adequacy Comment Platelets Decreased; Polychromasia SLIGHT = 2-3 cells HPF (0-2); RBC Morphology 2
[2024-02-26 09:57] LABS: Hematocrit 27.7 % (36.0-47.0); Hemoglobin 8.7 g/dL (12.0-16.0); Mean Corpuscular HGB CONC 31.9 g/dL (32.0-36.0); Mean Corpuscular Hemoglobin 30.7 pg (27.0-31.0); Mean Corpuscular Volume 96.5 fL (78.0-98.0); Mean Platelet Volume 10.5 fL (7.4-10.4); Platelet Count 100 10x3/uL (130-400); RBC Distribution Width 21.6 % (11.5-14.5); Red Blood Cell (RBC) Count 2.83 mill/uL (4.20-5.40)
[2024-02-26 10:41] LABS: ALT (SGPT) Less than 5 U/L (8-55); AST (SGOT) 16 U/L (5-34); Albumin 3.5 g/dL (3.5-5.0); Alkaline Phosphatase 76 U/L (40-110); Anion Gap 16 mmol/L (10-20); BUN (Urea Nitrogen) 71 mg/dL (9.8-20.1); Bilirubin, Total 3.5 mg/dL (0.2-1.2); Calc. Creatinine Clearance 34 mL/min (70-130); Calcium 8.5 mg/dL (7.8-10.44); Carbon Dioxide 19 mmol/L (22-29); Chloride 108 mmol/L (98-107); Estimated GFR 22; Globulin 1.6 g/dL (2.4-3.5); Glucose 140 mg/dL (70-105); Potassium 3.5 mmol/L (3.5-5.1); Protein, Total 5.1 g/dL (6.0-8.3); Sodium 139 mmol/L (136-145)
[2024-02-26] MEDS: traMADol HCl 50 MG TAB PO SCH (16:58)
[2024-02-27 06:29] LABS: ALT (SGPT) Less than 5 U/L (8-55); AST (SGOT) 17 U/L (5-34); Albumin 3.4 g/dL (3.5-5.0); Alkaline Phosphatase 85 U/L (40-110); Anion Gap 15 mmol/L (10-20); BUN (Urea Nitrogen) 70 mg/dL (9.8-20.1); Bilirubin, Total 3.1 mg/dL (0.2-1.2); Calc. Creatinine Clearance 40 mL/min (70-130); Calcium 8.3 mg/dL (7.8-10.44); Carbon Dioxide 19 mmol/L (22-29); Chloride 108 mmol/L (98-107); Estimated GFR 27; Globulin 1.7 g/dL (2.4-3.5); Glucose 185 mg/dL (70-105); Potassium 3.2 mmol/L (3.5-5.1); Protein, Total 5.1 g/dL (6.0-8.3); Sodium 139 mmol/L (136-145)
[2024-02-27 06:37] LABS: #Basophils 0.05 10x3/uL (0.0-0.2); %Basophils 0.9 % (0.0-1.0); %Eosinophils 5.7 % (0.0-10.0); %Lymphocytes 9.1 % (21.0-51.0); %Monocytes 18.8 % (0.0-10.0); %Neutrophils 64.8 % (42.0-75.0); Hematocrit 27.1 % (36.0-47.0); Hemoglobin 8.7 g/dL (12.0-16.0); Mean Corpuscular HGB CONC 32.1 g/dL (32.0-36.0); Mean Corpuscular Hemoglobin 30.5 pg (27.0-31.0); Mean Corpuscular Volume 95.1 fL (78.0-98.0); Mean Platelet Volume 10.9 fL (7.4-10.4); Platelet Count 98 10x3/uL (130-400); RBC Distribution Width 21.8 % (11.5-14.5); Red Blood Cell (RBC) Count 2.85 mill/uL (4.20-5.40)
[2024-02-27] MEDS: Folic Acid 1 MG TAB PO SCH (09:18)
[2024-02-27] MEDS: Potassium Chloride 20 MEQ TAB PO SCH (09:21)
[2024-02-27] MEDS: Lidocaine 4% Patch TD SCH (09:21)
[2024-02-27] MEDS: traMADol HCl 50 MG TAB PO PRN (19:34)
[2024-02-27] MEDS: Transdermal Patch Removal TOP SCH (21:53)
[2024-02-28 06:37] LABS: #Basophils 0.07 10x3/uL (0.0-0.2); %Basophils 1.3 % (0.0-1.0); %Eosinophils 6.8 % (0.0-10.0); %Lymphocytes 9.4 % (21.0-51.0); %Monocytes 16.5 % (0.0-10.0); %Neutrophils 65.3 % (42.0-75.0); Hematocrit 28.9 % (36.0-47.0); Hemoglobin 9.2 g/dL (12.0-16.0); Mean Corpuscular HGB CONC 31.8 g/dL (32.0-36.0); Mean Corpuscular Hemoglobin 31.5 pg (27.0-31.0); Mean Platelet Volume 9.9 fL (7.4-10.4); Platelet Count 110 10x3/uL (130-400); RBC Distribution Width 22.3 % (11.5-14.5); Red Blood Cell (RBC) Count 2.92 mill/uL (4.20-5.40)
[2024-02-28 07:05] LABS: ALT (SGPT) Less than 5 U/L (8-55); AST (SGOT) 20 U/L (5-34); Albumin 3.5 g/dL (3.5-5.0); Alkaline Phosphatase 96 U/L (40-110); Anion Gap 14 mmol/L (10-20); BUN (Urea Nitrogen) 71 mg/dL (9.8-20.1); Calc. Creatinine Clearance 40 mL/min (70-130); Calcium 8.4 mg/dL (7.8-10.44); Carbon Dioxide 20 mmol/L (22-29); Chloride 108 mmol/L (98-107); Estimated GFR 26; Glucose 177 mg/dL (70-105); Potassium 3.6 mmol/L (3.5-5.1); Protein, Total 5.5 g/dL (6.0-8.3); Sodium 138 mmol/L (136-145)
[2024-02-28] MEDS ORDERED: Sodium Bicarbonate 2.5 MEQ/5 ML SDV ONE (09:11)
[2024-02-28] MEDS ORDERED: Lidocaine 1% PF 5 ML VIAL ONE (09:11)
[2024-02-28] MEDS ORDERED: Albumin 25% 200 ML ONE (09:45)
[2024-02-28] MEDS: traMADol HCl 50 MG TAB PO PRN (12:09)
[2024-02-28 13:20] LABS: RBC Count-Automated (BF) 0 /cu.mm; WBC/Nucleated-Auto (BF) 50 /cu.mm
[2024-02-28 13:29] LABS: BF Color Yellow; Body Fluid Source Ascites Body Fluid; Clarity Clear (Clear); Tube # EDTA
[2024-02-28 14:02] LABS: BF Segmented Neutrophils 28 %; Cell Count Non Hematic 59 %; Lymphocytes 13 %
[2024-02-28 16:46] VITALS: BP 121/68; TEMP 97.8
== END 2024-02-28 18:50 | DRG 981 ==
LOC: ERS 17:28 → SURG B 23:54 → CCU 02-16 17:51 → SURG B 02-18 16:17
PROVIDERS: ADMIT Surgery; ATTEND Surgery
PROC: 30233N1 Transfusion of Nonautologous Red Blood Cells into Peripheral Vein, Percutaneous Approach (ICD-10-PCS; 2024-02-16)
PROC: 30233K1 Transfusion of Nonautologous Frozen Plasma into Peripheral Vein, Percutaneous Approach (ICD-10-PCS; 2024-02-16)
PROC: 4A133R1 Monitoring of Arterial Saturation, Peripheral, Percutaneous Approach (ICD-10-PCS; 2024-02-16)
PROC: 30233J1 Transfusion of Nonautologous Serum Albumin into Peripheral Vein, Percutaneous Approach (ICD-10-PCS; 2024-02-16)
PROC: 0QS706Z Reposition Left Upper Femur with Intramedullary Internal Fixation Device, Open Approach (ICD-10-PCS; principal; 2024-02-19)
PROC: 0W9G3ZZ Drainage of Peritoneal Cavity, Percutaneous Approach (ICD-10-PCS; 2024-02-28)
DX: I95.1 Orthostatic hypotension (principal); G93.41 Metabolic encephalopathy; J96.00 Acute respiratory failure, unspecified whether with hypoxia or hypercapnia; S72.142A Displaced intertrochanteric fracture of left femur, initial encounter for closed fracture; J69.0 Pneumonitis due to inhalation of food and vomit; E87.20 Acidosis, unspecified; N17.9 Acute kidney failure, unspecified; E87.1 Hypo-osmolality and hyponatremia; N39.0 Urinary tract infection, site not specified; D61.818 Other pancytopenia; W18.30XA Fall on same level, unspecified, initial encounter; Z88.8 Allergy status to other drugs, medicaments and biological substances; Z91.048 Other nonmedicinal substance allergy status; Z88.5 Allergy status to narcotic agent; Z88.2 Allergy status to sulfonamides; Z79.899 Other long term (current) drug therapy; Z79.4 Long term (current) use of insulin; K21.9 Gastro-esophageal reflux disease without esophagitis; Z90.49 Acquired absence of other specified parts of digestive tract; Z90.89 Acquired absence of other organs; E11.22 Type 2 diabetes mellitus with diabetic chronic kidney disease; D63.1 Anemia in chronic kidney disease; D69.6 Thrombocytopenia, unspecified; K76.82 Hepatic encephalopathy; K72.10 Chronic hepatic failure without coma; K70.31 Alcoholic cirrhosis of liver with ascites; N18.32 Chronic kidney disease, stage 3b; F41.9 Anxiety disorder, unspecified; K59.00 Constipation, unspecified
CPT/HCPCS: 36415; 36416; 36430; 36600; 49083; 51702; 70450; 71045; 71275; 72125; 74018; 74019; 74176; 80048; 80053; 80306; 81001; 82042; 82140; 82805; 83605; 83690; 83735; 83880; 84100; 84145; 84157; 84484; 85025; 85060; 85379; 85610; 85730; 86850; 86900; 86901; 87040; 87070; 87077; 87086; 87186; 87205; 89051; 93005; 93010; 93306; 94002; 94003; 96374; 96376; C1713; J0692; J1642; J1815; J2272; J2354; J2405; J2543; J2704; J3010; J3490; J7050; J7120; J7999; P9016; P9045; P9047; P9059; Q9967; S0028

== ENCOUNTER → 2024-02-15 | Day surgery (SDC) | payer OTHER ==
[2024-02-15 11:15] LABS: #Basophils 0.06 10x3/uL (0.0-0.2); %Eosinophils 10.3 % (0.0-10.0); %Lymphocytes 7.3 % (21.0-51.0); %Monocytes 14.8 % (0.0-10.0); %Neutrophils 66.3 % (42.0-75.0); ALT (SGPT) 23 U/L (8-55); AST (SGOT) 48 U/L (5-34); Albumin 3.1 g/dL (3.5-5.0); Alkaline Phosphatase 109 U/L (40-110); Anion Gap 10 mmol/L (10-20); BUN (Urea Nitrogen) 54 mg/dL (9.8-20.1); Bilirubin, Total 1.1 mg/dL (0.2-1.2); Calc. Creatinine Clearance 0 mL/min (70-130); Calcium 8.4 mg/dL (7.8-10.44); Carbon Dioxide 19 mmol/L (22-29); Chloride 114 mmol/L (98-107); Estimated GFR 32; Globulin 2.6 g/dL (2.4-3.5); Glucose 69 mg/dL (70-105); Hematocrit 30.5 % (36.0-47.0); Hemoglobin 10.1 g/dL (12.0-16.0); INR-International Normal Ratio 1.3; Magnesium 1.9 mg/dL (1.6-2.6); Mean Corpuscular HGB CONC 33.1 g/dL (32.0-36.0); Mean Corpuscular Hemoglobin 29.2 pg (27.0-31.0); Mean Corpuscular Volume 88.2 fL (78.0-98.0); Mean Platelet Volume 12.7 fL (7.4-10.4); Platelet Count 62 10x3/uL (130-400); Potassium 4.8 mmol/L (3.5-5.1); Protein, Total 5.7 g/dL (6.0-8.3); Prothrombin Time 16.3 sec (12.0-14.7); RBC Distribution Width 15.7 % (11.5-14.5); Red Blood Cell (RBC) Count 3.46 mill/uL (4.20-5.40); Sodium 138 mmol/L (136-145)
[2024-02-15 15:29] LABS: RBC Count-Automated (BF) 13 /cu.mm; WBC/Nucleated-Auto (BF) 38 /cu.mm
[2024-02-15 15:31] LABS: BF Color Colorless; Body Fluid Source Ascites Body Fluid; Clarity Hazy (Clear); Tube # EDTA
[2024-02-15 17:00] LABS: BF Segmented Neutrophils 22 %; Cell Count Non Hematic 63 %; Lymphocytes 15 %
== END ==
LOC: ULT 10:11
PROVIDERS: ATTEND Internal Medicine Gastroenterology
PROC: 0W9G30Z Drainage of Peritoneal Cavity with Drainage Device, Percutaneous Approach (ICD-10-PCS; principal; 2024-02-15)
DX: K74.60 Unspecified cirrhosis of liver (principal); R18.8 Other ascites; D64.9 Anemia, unspecified; F41.9 Anxiety disorder, unspecified; E78.00 Pure hypercholesterolemia, unspecified; I10 Essential (primary) hypertension; Z98.890 Other specified postprocedural states; Z87.891 Personal history of nicotine dependence; Z79.899 Other long term (current) drug therapy; Z88.5 Allergy status to narcotic agent; Z88.0 Allergy status to penicillin; Z88.2 Allergy status to sulfonamides; Z88.8 Allergy status to other drugs, medicaments and biological substances
CPT/HCPCS: 49083; 82042; 83735; 84157; 85060; 85610; 87070; 87205; 89051; J1642; P9047

== ENCOUNTER → 2024-03-07 | Day surgery (SDC) | payer OTHER ==
[~2024-03-07] MED LIST changes: -Sodium Bicarbonate 2.5 MEQ/5 ML SDV ONE
[2024-03-07 13:40] LABS: RBC Count-Automated (BF) 0 /cu.mm; WBC/Nucleated-Auto (BF) 23 /cu.mm
[2024-03-07 14:15] LABS: BF Color Yellow; Body Fluid Source Ascites Body Fluid; Clarity Clear (Clear); Tube # EDTA
[2024-03-07 15:20] LABS: BF Segmented Neutrophils 6 %; Cell Count Non Hematic 66 %; Eosinophils 1 %; Lymphocytes 27 %
== END ==
LOC: ULT 09:53
PROVIDERS: ATTEND Internal Medicine Gastroenterology
PROC: 0W9G30Z Drainage of Peritoneal Cavity with Drainage Device, Percutaneous Approach (ICD-10-PCS; principal; 2024-03-07)
DX: K74.60 Unspecified cirrhosis of liver (principal); R18.8 Other ascites; Z88.5 Allergy status to narcotic agent; Z88.0 Allergy status to penicillin; Z88.8 Allergy status to other drugs, medicaments and biological substances; Z88.2 Allergy status to sulfonamides
CPT/HCPCS: 49083; 82042; 84157; 85060; 87070; 87205; 89051; J1642; P9047

== ENCOUNTER 2024-03-14 10:06 | Day surgery (SDC) | payer OTHER ==
[2024-03-14] MEDS ORDERED: Sodium Bicarbonate 2.5 MEQ/5 ML SDV ONE (10:39)
[2024-03-14] MEDS ORDERED: Albumin 25% 200 ML ONE (10:39)
[2024-03-14 13:16] LABS: #Basophils 0.05 10x3/uL (0.0-0.2); %Basophils 1.2 % (0.0-1.0); %Eosinophils 10.6 % (0.0-10.0); %Lymphocytes 9.9 % (21.0-51.0); %Monocytes 18.2 % (0.0-10.0); %Neutrophils 59.9 % (42.0-75.0); Hemoglobin 9.4 g/dL (12.0-16.0); Mean Corpuscular HGB CONC 31.3 g/dL (32.0-36.0); Mean Corpuscular Hemoglobin 31.1 pg (27.0-31.0); Mean Corpuscular Volume 99.3 fL (78.0-98.0); Mean Platelet Volume 12.6 fL (7.4-10.4); Platelet Count 46 10x3/uL (130-400); RBC Distribution Width 19.5 % (11.5-14.5); Red Blood Cell (RBC) Count 3.02 mill/uL (4.20-5.40)
[2024-03-14 13:23] LABS: ALT (SGPT) 13 U/L (8-55); AST (SGOT) 26 U/L (5-34); Albumin 3.1 g/dL (3.5-5.0); Alkaline Phosphatase 159 U/L (40-110); Anion Gap 12 mmol/L (10-20); BUN (Urea Nitrogen) 40 mg/dL (9.8-20.1); Bilirubin, Total 2.6 mg/dL (0.2-1.2); Calc. Creatinine Clearance 0 mL/min (70-130); Calcium 8.5 mg/dL (7.8-10.44); Carbon Dioxide 25 mmol/L (22-29); Chloride 107 mmol/L (98-107); Estimated GFR 37; Globulin 2.1 g/dL (2.4-3.5); Glucose 247 mg/dL (70-105); Magnesium 1.9 mg/dL (1.6-2.6); Potassium 3.5 mmol/L (3.5-5.1); Protein, Total 5.2 g/dL (6.0-8.3); Sodium 140 mmol/L (136-145)
[2024-03-14 13:25] LABS: RBC Count-Automated (BF) 23 /cu.mm; WBC/Nucleated-Auto (BF) 46 /cu.mm
[2024-03-14 13:26] LABS: Body Fluid Source Ascites Body Fluid
[2024-03-14 13:27] LABS: BF Color Yellow; Clarity Clear (Clear); Tube # EDTA
[2024-03-14 13:40] LABS: INR-International Normal Ratio 1.8; Prothrombin Time 20.7 sec (12.0-14.7)
[2024-03-14 14:02] LABS: BF Segmented Neutrophils 19 %; Cell Count Non Hematic 30 %; Lymphocytes 51 %
== END 2024-03-14 12:50 | disposition home or self-care (01) ==
LOC: ULT 10:06
PROVIDERS: ATTEND Internal Medicine Gastroenterology
PROC: 0W9G3ZZ Drainage of Peritoneal Cavity, Percutaneous Approach (ICD-10-PCS; principal; 2024-03-14)
DX: K74.60 Unspecified cirrhosis of liver (principal); R18.8 Other ascites; Z88.0 Allergy status to penicillin; Z88.2 Allergy status to sulfonamides; Z88.5 Allergy status to narcotic agent; Z88.8 Allergy status to other drugs, medicaments and biological substances
CPT/HCPCS: 49083; 80053; 82042; 83735; 84157; 85025; 85060; 85610; 87070; 87205; 89051; J1642; P9047

== ENCOUNTER 2024-03-15 14:06 | Emergency (ER) | payer OTHER ==
[2024-03-15 14:34] LABS: #Basophils 0.04 10x3/uL (0.0-0.2); %Basophils 0.9 % (0.0-1.0); %Eosinophils 8.3 % (0.0-10.0); %Lymphocytes 6.9 % (21.0-51.0); %Monocytes 15.4 % (0.0-10.0); %Neutrophils 68.3 % (42.0-75.0); Hematocrit 29.3 % (36.0-47.0); Hemoglobin 9.5 g/dL (12.0-16.0); Mean Corpuscular HGB CONC 32.4 g/dL (32.0-36.0); Mean Corpuscular Hemoglobin 31.3 pg (27.0-31.0); Mean Corpuscular Volume 96.4 fL (78.0-98.0); Mean Platelet Volume 11.7 fL (7.4-10.4); Platelet Count 44 10x3/uL (130-400); Red Blood Cell (RBC) Count 3.04 mill/uL (4.20-5.40)
[2024-03-15 14:48] LABS: ALT (SGPT) 13 U/L (8-55); AST (SGOT) 28 U/L (5-34); Albumin 3.5 g/dL (3.5-5.0); Alkaline Phosphatase 149 U/L (40-110); Anion Gap 14 mmol/L (10-20); BUN (Urea Nitrogen) 38 mg/dL (9.8-20.1); Bilirubin, Total 2.8 mg/dL (0.2-1.2); Calc. Creatinine Clearance 0 mL/min (70-130); Calcium 8.9 mg/dL (7.8-10.44); Carbon Dioxide 25 mmol/L (22-29); Chloride 109 mmol/L (98-107); Estimated GFR 37; Glucose 174 mg/dL (70-105); Potassium 3.7 mmol/L (3.5-5.1); Protein, Total 5.5 g/dL (6.0-8.3); Sodium 144 mmol/L (136-145)
[2024-03-15] MEDS ORDERED: Lactulose 20 GM (30 mL) UDCUP ONE (14:57)
[2024-03-15 15:25] LABS: Magnesium 1.8 mg/dL (1.6-2.6)
[2024-03-15 15:32] LABS: Troponin I Less than 0.010 ng/mL (< 0.028)
[2024-03-15 15:44] LABS: Bacteria/HPF None Seen HPF (None Seen); Bilirubin Negative (Negative); Blood, Urine 1+ (Negative); CAUTI Indications for Culture Alt mental st,lethar; Clarity Clear (Clear); Glucose, Urine (Dipstick) Normal (Negative); Ketone, Urine Negative (Negative); Leukocyte Negative Leu/uL (Negative); Nitrite Negative (Negative); Protein, Urine (Dipstick) 10 mg/dL (Neg-Trace); Specific Gravity, Urine 1.014 (1.002-1.036); Squamous Epithelial 0-3 HPF (0-3); Urobilinogen Normal mg/dL (Less than 2); WBC/HPF 0-3 HPF (0-3); pH, Urine 5.5 (5.0-9.0)
[2024-03-15 15:55] LABS: Yeast-Budding 1+ HPF (None Seen)
[2024-03-15 15:57] LABS: Urine Culture Reflex No No
== END 2024-03-15 17:50 ==
LOC: ERS 14:06
DX: E72.20 Disorder of urea cycle metabolism, unspecified (principal); N18.9 Chronic kidney disease, unspecified; D64.9 Anemia, unspecified; E11.22 Type 2 diabetes mellitus with diabetic chronic kidney disease; J44.9 Chronic obstructive pulmonary disease, unspecified
CPT/HCPCS: 51701; 80053; 81001; 82140; 83735; 84484; 85025; 93005

== ENCOUNTER → 2024-03-21 | Day surgery (SDC) | payer OTHER ==
[2024-03-21 13:27] LABS: RBC Count-Automated (BF) 46 /cu.mm; WBC/Nucleated-Auto (BF) 35 /cu.mm
[2024-03-21 13:38] LABS: BF Color Yellow; Body Fluid Source Ascites Body Fluid; Clarity Clear (Clear); Tube # EDTA
[2024-03-21 13:46] LABS: BF Segmented Neutrophils 4 %; Cell Count Non Hematic 90 %; Lymphocytes 6 %
== END ==
LOC: ULT 10:10
PROVIDERS: ATTEND Internal Medicine Gastroenterology
PROC: 0W9G30Z Drainage of Peritoneal Cavity with Drainage Device, Percutaneous Approach (ICD-10-PCS; principal; 2024-03-21)
DX: K74.60 Unspecified cirrhosis of liver (principal); R18.8 Other ascites; Z88.5 Allergy status to narcotic agent; Z88.8 Allergy status to other drugs, medicaments and biological substances; Z88.2 Allergy status to sulfonamides
CPT/HCPCS: 49083; 82042; 84157; 85060; 87070; 87205; 89051; J1642; P9047

== ENCOUNTER 2024-03-23 07:29 | Inpatient (IN) | payer OTHER ==
[2024-03-23 08:13] LABS: #Basophils 0.04 10x3/uL (0.0-0.2); %Basophils 1.2 % (0.0-1.0); %Eosinophils 9.8 % (0.0-10.0); %Lymphocytes 9.8 % (21.0-51.0); %Monocytes 15.4 % (0.0-10.0); %Neutrophils 63.5 % (42.0-75.0); Hematocrit 31.5 % (36.0-47.0); Hemoglobin 10.2 g/dL (12.0-16.0); Mean Corpuscular HGB CONC 32.4 g/dL (32.0-36.0); Mean Corpuscular Hemoglobin 31.6 pg (27.0-31.0); Mean Corpuscular Volume 97.5 fL (78.0-98.0); Mean Platelet Volume 11.6 fL (7.4-10.4); Platelet Count 39 10x3/uL (130-400); RBC Distribution Width 17.1 % (11.5-14.5); Red Blood Cell (RBC) Count 3.23 mill/uL (4.20-5.40)
[2024-03-23 08:29] LABS: ALT (SGPT) 12 U/L (8-55); AST (SGOT) 27 U/L (5-34); Albumin 3.6 g/dL (3.5-5.0); Alkaline Phosphatase 160 U/L (40-110); Anion Gap 12 mmol/L (10-20); BUN (Urea Nitrogen) 32 mg/dL (9.8-20.1); Bilirubin, Total 2.8 mg/dL (0.2-1.2); Calc. Creatinine Clearance 0 mL/min (70-130); Carbon Dioxide 24 mmol/L (22-29); Chloride 109 mmol/L (98-107); Estimated GFR 38; Glucose 213 mg/dL (70-105); Magnesium 1.8 mg/dL (1.6-2.6); Potassium 3.2 mmol/L (3.5-5.1); Protein, Total 5.6 g/dL (6.0-8.3); Sodium 142 mmol/L (136-145)
[2024-03-23] MEDS ORDERED: Lactulose 20 GM (30 mL) UDCUP ONE (08:53)
[2024-03-23 09:04] LABS: Bilirubin Negative (Negative); Blood, Urine 2+ (Negative); CAUTI Indications for Culture Alt mental st,lethar; Clarity Clear (Clear); Glucose, Urine (Dipstick) Normal (Negative); Ketone, Urine Negative (Negative); Leukocyte Negative Leu/uL (Negative); Nitrite Negative (Negative); Protein, Urine (Dipstick) 70 mg/dL (Neg-Trace); Specific Gravity, Urine 1.015 (1.002-1.036); Squamous Epithelial 0-3 HPF (0-3); Urobilinogen Normal mg/dL (Less than 2); WBC/HPF 0-3 HPF (0-3); pH, Urine 5.5 (5.0-9.0)
[2024-03-23 09:05] LABS: Bacteria/HPF 1+ HPF (None Seen)
[2024-03-23 09:07] LABS: Urine Culture Reflex No No
[2024-03-23] MEDS ORDERED: Dextrose 5% in Water 1,000 ML IV PRN (09:55)
[2024-03-23] MEDS ORDERED: Glucagon 1 MG/ML KIT IM PRN (09:55)
[2024-03-23] MEDS ORDERED: Dextrose 50% Abboject 50 ML SYRINGE SLOW IVP PRN (09:55)
[2024-03-23] MEDS ORDERED: Insulin Regular, Human 100 UNIT/ML 10 ML VIAL SC PRN (09:58)
[2024-03-23] MEDS ORDERED: Albuterol 200 PUFF (6.7GM INHALER) INH PRN (10:11)
[2024-03-23 11:05] LABS: INR-International Normal Ratio 1.6; Prothrombin Time 18.9 sec (12.0-14.7)
[2024-03-23 11:06] LABS: PTT 46.3 sec (22.9-36.1)
[2024-03-23] MEDS ORDERED: traMADol HCl 50 MG TAB PO PRN (11:35)
[2024-03-23] MEDS ORDERED: Loratadine 10 MG TAB PO PRN (11:35)
[2024-03-23] MEDS ORDERED: Ondansetron ODT 4 MG TAB PO PRN (11:35)
[2024-03-23] MEDS ORDERED: Calcitriol 0.25 MCG CAP PO SCH (11:45)
[2024-03-23] MEDS ORDERED: Non-Formulary Item 1 EACH (Bupropion Hcl [Wellbutrin Xl] 300 MG Tab.Er.24h) PO SCH (11:45)
[2024-03-23] MEDS: Potassium Chloride 20 MEQ TAB PO SCH (12:33)
[2024-03-23] MEDS: Nicotine 21 MG PATCH TD SCH (12:33)
[2024-03-23] MEDS: Pantoprazole 40 MG VIAL IVP SCH (12:34)
[2024-03-23] MEDS ORDERED: BuPROPion XL 150 MG ER.TAB PO SCH (12:45)
[2024-03-23] MEDS: Insulin Regular, Human 100 UNIT/ML 10 ML VIAL SC PRN (13:43)
[2024-03-23] MEDS: Ferrous Sulfate 325 MG TAB PO SCH (14:10)
[2024-03-23] MEDS: Sodium Bicarbonate Tab 325 MG TAB PO SCH (14:11)
[2024-03-23] MEDS: Midodrine HCl 5 MG TAB PO SCH (14:53)
[2024-03-23] MEDS: Lactulose 20 GM (30 mL) UDCUP PO SCH (14:53)
[2024-03-23] MEDS ORDERED: Non-Formulary Item 1 EACH (Sodium Bicarbonate [Sodium Bicarbonate] 650 MG Tablet) PO SCH (15:00)
[2024-03-23] MEDS ORDERED: Non-Formulary Item 1 EACH (Ferrous Sulfate [Ferrous Sulfate] 325 MG Tablet) PO SCH (15:00)
[2024-03-23] MEDS: Mometasone 100 MCG HFA INHALER (RT USE) INH SCH (19:23)
[2024-03-23] MEDS ORDERED: Pantoprazole 40 MG VIAL IVP SCH (21:00)
[2024-03-23] MEDS ORDERED: Mometasone 100 MCG HFA INHALER (RT USE) INH SCH (21:00)
[2024-03-23] MEDS ORDERED: Non-Formulary Item 1 EACH (Cholecalciferol (Vitamin D3) [Vitamin D3] 1000 UNIT Capsule) PO SCH (21:00)
[2024-03-23] MEDS ORDERED: Magnesium Oxide 400 MG TAB PO SCH (21:00)
[2024-03-23] MEDS: Pantoprazole DR 40 MG TAB PO SCH (22:05)
[2024-03-23] MEDS: Gabapentin 100 MG CAP PO SCH (22:05)
[2024-03-23] MEDS: busPIRone HCl 10 MG TAB PO SCH (22:05)
[2024-03-23] MEDS: Cholecalciferol 1,000 UNITS (25 MCG) TAB PO SCH (22:05)
[2024-03-24 05:51] LABS: ALT (SGPT) 11 U/L (8-55); AST (SGOT) 23 U/L (5-34); Alkaline Phosphatase 136 U/L (40-110); Anion Gap 14 mmol/L (10-20); BUN (Urea Nitrogen) 31 mg/dL (9.8-20.1); Bilirubin, Total 2.8 mg/dL (0.2-1.2); Calc. Creatinine Clearance 0 mL/min (70-130); Calcium 8.6 mg/dL (7.8-10.44); Carbon Dioxide 26 mmol/L (22-29); Chloride 111 mmol/L (98-107); Estimated GFR 44; Globulin 1.9 g/dL (2.4-3.5); Glucose 141 mg/dL (70-105); Magnesium 1.6 mg/dL (1.6-2.6); Potassium 3.2 mmol/L (3.5-5.1); Protein, Total 4.9 g/dL (6.0-8.3); Sodium 148 mmol/L (136-145)
[2024-03-24 05:52] LABS: #Basophils 0.04 10x3/uL (0.0-0.2); %Basophils 1.3 % (0.0-1.0); %Eosinophils 9.9 % (0.0-10.0); %Lymphocytes 16.2 % (21.0-51.0); %Monocytes 15.9 % (0.0-10.0); %Neutrophils 56.4 % (42.0-75.0); Hematocrit 30.6 % (36.0-47.0); Hemoglobin 9.9 g/dL (12.0-16.0); Mean Corpuscular HGB CONC 32.4 g/dL (32.0-36.0); Mean Corpuscular Hemoglobin 30.6 pg (27.0-31.0); Mean Corpuscular Volume 94.4 fL (78.0-98.0); Mean Platelet Volume 12.3 fL (7.4-10.4); Platelet Count 38 10x3/uL (130-400); RBC Distribution Width 16.9 % (11.5-14.5); Red Blood Cell (RBC) Count 3.24 mill/uL (4.20-5.40)
[2024-03-24 07:39] VITALS: BP 147/84; TEMP 98.2
[2024-03-24] MEDS: Ascorbic Acid 500 mg Chewable Tablet PO SCH (07:56)
[2024-03-24] MEDS: Atorvastatin Calcium 10 MG TAB PO SCH (07:56)
[2024-03-24] MEDS: Magnesium Oxide 250 MG TAB PO SCH (07:56)
[2024-03-24] MEDS: Folic Acid 1 MG TAB PO SCH (07:56)
[2024-03-24] MEDS: Cyanocobalamin (Vitamin B-12) 1,000 MCG TAB PO SCH (07:56)
[2024-03-24] MEDS: Insulin Glargine 30 UNITS/0.3 ML VIAL SC SCH (07:57)
[2024-03-24] MEDS ORDERED: [UNRECOGNIZED DRUG - OTHER] PO SCH (09:00)
[2024-03-24] MEDS ORDERED: Ciprofloxacin 500 MG TAB PO SCH (09:00)
[2024-03-24] MEDS ORDERED: CYANOCOBALAMIN 2000 MCG PO SCH (09:00)
[2024-03-24] MEDS: Potassium Chloride 20 MEQ TAB PO SCH (10:20)
[2024-03-24] MEDS: Lidocaine 4% Patch TD SCH (10:21)
[2024-03-24] MEDS: Cipro 250 MG TAB PO SCH (11:58)
[2024-03-24] MEDS ORDERED: Transdermal Patch Removal TOP SCH (21:00)
== END 2024-03-24 12:07 | DRG 441 ==
LOC: ERS 07:29 → T4-B 09:07
PROVIDERS: ADMIT Family Medicine; ATTEND Family Medicine
DX: K72.10 Chronic hepatic failure without coma (principal); G93.41 Metabolic encephalopathy; R18.8 Other ascites; K74.60 Unspecified cirrhosis of liver; K21.9 Gastro-esophageal reflux disease without esophagitis; F41.9 Anxiety disorder, unspecified; F32.9 Major depressive disorder, single episode, unspecified; J45.909 Unspecified asthma, uncomplicated; E87.6 Hypokalemia; F17.210 Nicotine dependence, cigarettes, uncomplicated; I95.9 Hypotension, unspecified; D69.6 Thrombocytopenia, unspecified; N18.32 Chronic kidney disease, stage 3b; E11.22 Type 2 diabetes mellitus with diabetic chronic kidney disease; K76.82 Hepatic encephalopathy; Z79.2 Long term (current) use of antibiotics; Z88.2 Allergy status to sulfonamides; Z88.5 Allergy status to narcotic agent; Z79.899 Other long term (current) drug therapy; Z90.89 Acquired absence of other organs; Z98.891 History of uterine scar from previous surgery
CPT/HCPCS: 36415; 36416; 51701; 70450; 80053; 81001; 82140; 83735; 85025; 85610; 85730; 93005; J1815; J2470

== ENCOUNTER → 2024-04-18 | Day surgery (SDC) | payer OTHER ==
[~2024-04-18] MED LIST changes: +Sodium Bicarbonate 2.5 MEQ/5 ML SDV ONE
[2024-04-18 16:10] LABS: RBC Count-Automated (BF) 0 /cu.mm; WBC/Nucleated-Auto (BF) 0 /cu.mm
[2024-04-18 16:12] LABS: BF Color Yellow; Body Fluid Source Ascites Body Fluid; Clarity Clear (Clear); Tube # EDTA
== END ==
LOC: ULT 10:24
PROVIDERS: ATTEND Internal Medicine Gastroenterology
PROC: 0W9G30Z Drainage of Peritoneal Cavity with Drainage Device, Percutaneous Approach (ICD-10-PCS; principal; 2024-04-18)
DX: K74.60 Unspecified cirrhosis of liver (principal); R18.8 Other ascites; D64.9 Anemia, unspecified; F41.9 Anxiety disorder, unspecified; G93.40 Encephalopathy, unspecified; I10 Essential (primary) hypertension; K31.819 Angiodysplasia of stomach and duodenum without bleeding; Z98.890 Other specified postprocedural states; Z88.5 Allergy status to narcotic agent; Z88.8 Allergy status to other drugs, medicaments and biological substances; Z88.0 Allergy status to penicillin; Z88.2 Allergy status to sulfonamides; Z87.891 Personal history of nicotine dependence; Z79.899 Other long term (current) drug therapy
CPT/HCPCS: 49083; 82042; 84157; 87070; 87205; 89051; J1642; P9047

== ENCOUNTER 2024-04-19 09:51 | Observation (INO) | payer OTHER ==
[2024-04-19 11:04] LABS: #Basophils 0.04 10x3/uL (0.0-0.2); %Basophils 1.8 % (0.0-1.0); %Eosinophils 6.1 % (0.0-10.0); %Lymphocytes 19.3 % (21.0-51.0); %Monocytes 16.7 % (0.0-10.0); %Neutrophils 56.1 % (42.0-75.0); Hematocrit 26.9 % (36.0-47.0); Mean Corpuscular HGB CONC 33.5 g/dL (32.0-36.0); Mean Corpuscular Volume 92.8 fL (78.0-98.0); Mean Platelet Volume 10.4 fL (7.4-10.4); Platelet Count 42 10x3/uL (130-400); RBC Distribution Width 15.3 % (11.5-14.5)
[2024-04-19 11:09] LABS: Lipase 46 U/L (8-78); Magnesium 2.2 mg/dL (1.6-2.6)
[2024-04-19 11:10] LABS: Acetaminophen Less than 10 mcg/mL (Less than 10); Alcohol Less than 10.0 mg/dL (Less than 10); Salicylate Less than 8.0 mg/dL (Less than 8.0)
[2024-04-19 11:36] LABS: ALT (SGPT) 15 U/L (8-55); AST (SGOT) 25 U/L (5-34); Albumin 3.5 g/dL (3.5-5.0); Alkaline Phosphatase 124 U/L (40-110); Anion Gap 13 mmol/L (10-20); BUN (Urea Nitrogen) 34 mg/dL (9.8-20.1); Bilirubin, Total 2.2 mg/dL (0.2-1.2); Calc. Creatinine Clearance 0 mL/min (70-130); Calcium 8.8 mg/dL (7.8-10.44); Carbon Dioxide 22 mmol/L (22-29); Chloride 110 mmol/L (98-107); Estimated GFR 38; Globulin 2.1 g/dL (2.4-3.5); Glucose 206 mg/dL (70-105); Potassium 3.5 mmol/L (3.5-5.1); Protein, Total 5.6 g/dL (6.0-8.3); Sodium 141 mmol/L (136-145)
[2024-04-19 11:47] LABS: Troponin I Less than 0.010 ng/mL (< 0.028)
[2024-04-19] MEDS ORDERED: Dextrose 50% Abboject 50 ML SYRINGE SLOW IVP PRN (12:22)
[2024-04-19] MEDS ORDERED: Glucagon 1 MG/ML KIT IM PRN (12:22)
[2024-04-19] MEDS ORDERED: Dextrose 5% in Water 1,000 ML IV PRN (12:22)
[2024-04-19] MEDS ORDERED: Insulin Lispro 100 UNIT/ML 10 ML VIAL SC PRN (12:22)
[2024-04-19] MEDS ORDERED: Lactulose 20 GM (30 mL) UDCUP PR PRN (12:43)
[2024-04-19] MEDS ORDERED: Cyclobenzaprine 10 MG TAB PO PRN (12:48)
[2024-04-19 13:42] LABS: INR-International Normal Ratio 1.7; Prothrombin Time 19.6 sec (12.0-14.7)
[2024-04-19] MEDS ORDERED: Albuterol 2.5 MG (3 mL) NEB NEB PRN (14:04)
[2024-04-19 14:12] LABS: PTT 43.6 sec (22.9-36.1)
[2024-04-19 14:24] VITALS: BMI 23.8
[2024-04-19 14:47] LABS: Bacteria/HPF None Seen HPF (None Seen); Bilirubin Negative (Negative); Blood, Urine Negative (Negative); CAUTI Indications for Culture Alt mental st,lethar; Clarity Clear (Clear); Glucose, Urine (Dipstick) Normal (Negative); Ketone, Urine Negative (Negative); Leukocyte Negative Leu/uL (Negative); Nitrite Negative (Negative); Protein, Urine (Dipstick) 10 mg/dL (Neg-Trace); Specific Gravity, Urine 1.015 (1.002-1.036); Squamous Epithelial 0-3 HPF (0-3); Urobilinogen Normal mg/dL (Less than 2); WBC/HPF 0-3 HPF (0-3); pH, Urine 5.5 (5.0-9.0)
[2024-04-19 14:48] LABS: Phosphorus 2.6 mg/dL (2.3-4.7)
[2024-04-19 14:53] LABS: Urine Culture Reflex No No
[2024-04-19 14:54] LABS: Amphetamine Not Detected (NotDetected); Barbiturates Screen Not Detected (NotDetected); Benzodiazepine Screen Not Detected (NotDetected); Cocaine Metabolite Screen Not Detected (NotDetected); Methadone Not Detected (NotDetected); Methamphetamine Not Detected (NotDetected); Opiate Screen Not Detected (NotDetected); Oxycodone Screen Not Detected (NotDetected); Phencyclidine (PCP) Not Detected (NotDetected); THC/Cannabinoid Screen Not Detected (NotDetected); Tricyclic Screen Not Detected (NotDetected)
[2024-04-19] MEDS: Lactated Ringer's 1,000 ML IV SCH (15:34)
[2024-04-19] MEDS: Lactulose 20 GM (30 mL) UDCUP PO SCH (15:37)
[2024-04-19] MEDS: Sodium Bicarbonate Tab 325 MG TAB PO SCH (15:37)
[2024-04-19] MEDS: Midodrine HCl 5 MG TAB PO SCH (15:37)
[2024-04-19] MEDS: Lactulose 20 GM (30 mL) UDCUP PR SCH (16:58)
[2024-04-19] MEDS: Mometasone 100 MCG HFA INHALER (RT USE) INH SCH (18:41)
[2024-04-19] MEDS: Melatonin 3 MG TAB PO SCH (21:37)
[2024-04-19] MEDS: Rifaximin 550 MG TAB PO SCH (21:37)
[2024-04-19] MEDS: Atorvastatin Calcium 10 MG TAB PO SCH (21:37)
[2024-04-19] MEDS: Gabapentin 100 MG CAP PO SCH (21:37)
[2024-04-19] MEDS: Cholecalciferol 1,000 UNITS (25 MCG) TAB PO SCH (21:38)
[2024-04-19] MEDS: busPIRone HCl 10 MG TAB PO SCH (21:38)
[2024-04-19] MEDS: Loratadine 10 MG TAB PO PRN (21:48)
[2024-04-20 05:07] LABS: #Basophils 0.06 10x3/uL (0.0-0.2); %Basophils 2.6 % (0.0-1.0); %Eosinophils 10.3 % (0.0-10.0); %Lymphocytes 21.6 % (21.0-51.0); %Monocytes 14.7 % (0.0-10.0); %Neutrophils 50.4 % (42.0-75.0); Hematocrit 26.7 % (36.0-47.0); Hemoglobin 8.9 g/dL (12.0-16.0); Mean Corpuscular HGB CONC 33.3 g/dL (32.0-36.0); Mean Platelet Volume 11.3 fL (7.4-10.4); Platelet Count 41 10x3/uL (130-400); Red Blood Cell (RBC) Count 2.87 mill/uL (4.20-5.40)
[2024-04-20 05:21] LABS: ALT (SGPT) 13 U/L (8-55); AST (SGOT) 25 U/L (5-34); Albumin 2.9 g/dL (3.5-5.0); Alkaline Phosphatase 104 U/L (40-110); Anion Gap 12 mmol/L (10-20); BUN (Urea Nitrogen) 31 mg/dL (9.8-20.1); Bilirubin, Total 2.3 mg/dL (0.2-1.2); Calc. Creatinine Clearance 42 mL/min (70-130); Calcium 8.4 mg/dL (7.8-10.44); Carbon Dioxide 22 mmol/L (22-29); Chloride 114 mmol/L (98-107); Estimated GFR 39; Globulin 1.8 g/dL (2.4-3.5); Glucose 160 mg/dL (70-105); Potassium 3.4 mmol/L (3.5-5.1); Protein, Total 4.7 g/dL (6.0-8.3); Sodium 145 mmol/L (136-145)
[2024-04-20] MEDS: Ciprofloxacin 500 MG TAB PO SCH (06:09)
[2024-04-20] MEDS: BuPROPion XL 150 MG ER.TAB PO SCH (08:31)
[2024-04-20] MEDS: Magnesium Oxide 250 MG TAB PO SCH (08:32)
[2024-04-20] MEDS: Lidocaine 4% Patch TD SCH (08:33)
[2024-04-20] MEDS: traMADol HCl 50 MG TAB PO PRN (08:36)
[2024-04-20] MEDS: Insulin Lispro 100 UNIT/ML 10 ML VIAL SC PRN (12:37)
[2024-04-20] MEDS: Ondansetron ODT 4 MG TAB PO PRN (20:19)
[2024-04-20] MEDS: Transdermal Patch Removal TOP SCH (22:06)
[2024-04-21 11:24] VITALS: BP 121/79; TEMP 98.2
== END 2024-04-21 12:10 | disposition home or self-care (01) ==
LOC: ERS 09:51 → ERHOLD 11:45 → INTOOBSV 11:45 → T4-A 14:00
PROVIDERS: ADMIT Family Medicine; ATTEND Family Medicine
DX: G93.41 Metabolic encephalopathy (principal); E11.9 Type 2 diabetes mellitus without complications; K21.9 Gastro-esophageal reflux disease without esophagitis; J45.909 Unspecified asthma, uncomplicated; K74.60 Unspecified cirrhosis of liver; Z79.899 Other long term (current) drug therapy; Z88.2 Allergy status to sulfonamides; Z88.5 Allergy status to narcotic agent
CPT/HCPCS: 36415; 36416; 70450; 71045; 80053; 80306; 80307; 81001; 82140; 83605; 83690; 83735; 84100; 84484; 85025; 85610; 85730; 93005; 93010; 94664; G0378; J1642; J1815; J7120; Q0162

== ENCOUNTER → 2024-06-06 | Day surgery (SDC) | payer OTHER ==
[2024-06-06 12:12] LABS: #Basophils 0.11 10x3/uL (0.0-0.2); %Basophils 2.4 % (0.0-1.0); %Eosinophils 12.3 % (0.0-10.0); %Lymphocytes 12.7 % (21.0-51.0); %Monocytes 11.9 % (0.0-10.0); %Neutrophils 60.5 % (42.0-75.0); Hematocrit 27.3 % (36.0-47.0); Hemoglobin 8.6 g/dL (12.0-16.0); Mean Corpuscular HGB CONC 31.5 g/dL (32.0-36.0); Mean Corpuscular Hemoglobin 29.1 pg (27.0-31.0); Mean Corpuscular Volume 92.2 fL (78.0-98.0); Mean Platelet Volume 12.5 fL (7.4-10.4); Platelet Count 59 10x3/uL (130-400); RBC Distribution Width 16.7 % (11.5-14.5); Red Blood Cell (RBC) Count 2.96 mill/uL (4.20-5.40)
[2024-06-06 12:19] LABS: INR-International Normal Ratio 1.5; Prothrombin Time 18.2 sec (12.0-14.7)
[2024-06-06 12:50] LABS: ALT (SGPT) 17 U/L (8-55); AST (SGOT) 27 U/L (5-34); Alkaline Phosphatase 103 U/L (40-110); Anion Gap 12 mmol/L (10-20); BUN (Urea Nitrogen) 54 mg/dL (9.8-20.1); Bilirubin, Total 1.3 mg/dL (0.2-1.2); Calc. Creatinine Clearance 0 mL/min (70-130); Calcium 8.3 mg/dL (7.8-10.44); Carbon Dioxide 18 mmol/L (22-29); Chloride 113 mmol/L (98-107); Estimated GFR 29; Glucose 244 mg/dL (70-105); Magnesium 1.8 mg/dL (1.6-2.6); Sodium 139 mmol/L (136-145)
[2024-06-06 13:42] LABS: WBC/Nucleated-Auto (BF) 300 /cu.mm
[2024-06-06 13:49] LABS: Body Fluid Source Ascites Body Fluid; Clarity Cloudy/Turbid (Clear); Tube # EDTA
[2024-06-06 13:50] LABS: BF Color Yellow
[2024-06-06 13:52] LABS: RBC Count-Automated (BF) 970 /cu.mm
[2024-06-06 13:55] LABS: BF Segmented Neutrophils 32 %; Cell Count Non Hematic 38 %; Lymphocytes 30 %
== END ==
LOC: ULT 10:21
PROVIDERS: ATTEND Internal Medicine Gastroenterology
PROC: 0W9G30Z Drainage of Peritoneal Cavity with Drainage Device, Percutaneous Approach (ICD-10-PCS; principal; 2024-06-06)
DX: K74.60 Unspecified cirrhosis of liver (principal); R18.8 Other ascites; Z88.5 Allergy status to narcotic agent; Z88.0 Allergy status to penicillin; Z88.2 Allergy status to sulfonamides; Z88.8 Allergy status to other drugs, medicaments and biological substances; D64.9 Anemia, unspecified; F41.9 Anxiety disorder, unspecified; E78.00 Pure hypercholesterolemia, unspecified; I10 Essential (primary) hypertension; K31.819 Angiodysplasia of stomach and duodenum without bleeding; Z79.899 Other long term (current) drug therapy; Z87.891 Personal history of nicotine dependence
CPT/HCPCS: 49083; 80053; 82042; 83735; 84157; 85025; 85060; 85610; 87070; 87205; 89051; J1642; P9047

== ENCOUNTER 2024-06-13 10:16 | Day surgery (SDC) | payer OTHER ==
[2024-06-13] MEDS ORDERED: Lidocaine 1% PF 5 ML VIAL ONE (10:59)
[2024-06-13] MEDS ORDERED: Albumin 25% 200 ML ONE (10:59)
[2024-06-13] MEDS ORDERED: Sodium Bicarbonate 2.5 MEQ/5 ML SDV ONE (10:59)
[2024-06-13 14:09] LABS: RBC Count-Automated (BF) 144 /cu.mm; WBC/Nucleated-Auto (BF) 277 /cu.mm
[2024-06-13 14:12] LABS: BF Color Yellow; Body Fluid Source Ascites Body Fluid; Clarity Hazy (Clear); Tube # EDTA
[2024-06-13 17:19] LABS: BF Segmented Neutrophils 1 %; Cell Count Non Hematic 90 %; Lymphocytes 9 %
== END 2024-06-13 13:03 | disposition home or self-care (01) ==
LOC: ULT 10:16
PROVIDERS: ATTEND Internal Medicine Gastroenterology
DX: R18.8 Other ascites (principal); K74.60 Unspecified cirrhosis of liver; Z88.0 Allergy status to penicillin; Z88.2 Allergy status to sulfonamides
CPT/HCPCS: 49083; 82042; 84157; 85060; 87070; 87205; 89051; J1642; P9047

== ENCOUNTER 2024-06-18 18:04 | Inpatient (IN) | payer OTHER ==
[2024-06-18 19:08] LABS: #Basophils 0.09 10x3/uL (0.0-0.2); %Basophils 1.7 % (0.0-1.0); %Eosinophils 8.7 % (0.0-10.0); %Lymphocytes 12.2 % (21.0-51.0); %Neutrophils 66.2 % (42.0-75.0); Hematocrit 32.8 % (36.0-47.0); Hemoglobin 10.5 g/dL (12.0-16.0); Mean Corpuscular Hemoglobin 28.5 pg (27.0-31.0); Mean Corpuscular Volume 89.1 fL (78.0-98.0); Platelet Count 52 10x3/uL (130-400); RBC Distribution Width 15.7 % (11.5-14.5); Red Blood Cell (RBC) Count 3.68 mill/uL (4.20-5.40)
[2024-06-18 19:23] LABS: ALT (SGPT) 18 U/L (8-55); AST (SGOT) 29 U/L (5-34); Albumin 3.3 g/dL (3.5-5.0); Alkaline Phosphatase 107 U/L (40-110); Anion Gap 12 mmol/L (10-20); BUN (Urea Nitrogen) 45 mg/dL (9.8-20.1); Bilirubin, Total 2.3 mg/dL (0.2-1.2); Calc. Creatinine Clearance 0 mL/min (70-130); Calcium 8.8 mg/dL (7.8-10.44); Carbon Dioxide 21 mmol/L (22-29); Chloride 114 mmol/L (98-107); Estimated GFR 24; Globulin 2.4 g/dL (2.4-3.5); Glucose 142 mg/dL (70-105); Lipase 18 U/L (8-78); Magnesium 2.1 mg/dL (1.6-2.6); Potassium 4.3 mmol/L (3.5-5.1); Protein, Total 5.7 g/dL (6.0-8.3); Sodium 143 mmol/L (136-145)
[2024-06-18 19:29] LABS: Bacteria/HPF None Seen HPF (None Seen); Bilirubin Negative (Negative); Blood, Urine 1+ (Negative); CAUTI Indications for Culture Alt mental st,lethar; Clarity Clear (Clear); Glucose, Urine (Dipstick) Normal (Negative); Ketone, Urine Negative (Negative); Leukocyte 25 Leu/uL (Negative); Nitrite Negative (Negative); Protein, Urine (Dipstick) Negative (Neg-Trace); Squamous Epithelial 0-3 HPF (0-3); Urobilinogen Normal mg/dL (Less than 2); pH, Urine 6.5 (5.0-9.0)
[2024-06-18 19:31] LABS: Amphetamine Not Detected (NotDetected); Barbiturates Screen Not Detected (NotDetected); Benzodiazepine Screen Not Detected (NotDetected); Cocaine Metabolite Screen Not Detected (NotDetected); Methadone Not Detected (NotDetected); Methamphetamine Not Detected (NotDetected); Opiate Screen Not Detected (NotDetected); Oxycodone Screen Not Detected (NotDetected); Phencyclidine (PCP) Not Detected (NotDetected); THC/Cannabinoid Screen Not Detected (NotDetected); Tricyclic Screen Not Detected (NotDetected); Urine Culture Reflex No No
[2024-06-18 19:40] LABS: Actual Bicarbonate (HCO3v) 18.5 mEq/L (22-28); Analyzer IN Cardio ER; Base Excess -4.3 mEq/L (-2.0 to +3.0); Calcium, Ionized (venous) 1.18 mmol/L (1.16-1.32); Chloride (VBG) 109 mmol/L (98-106); Hematocrit-VBG 34 % (36.0-47.0); Hemoglobin (Hb) 11.7 g/dL (11.7-16.0); Potassium (VBG) 4.12 mmol/L (3.70-5.30); Sodium 142 mmol/L (133-146); pH (venous) 7.449 (7.32-7.43)
[2024-06-18] MEDS ORDERED: Sodium Chloride 0.9% 100 ML ONE (20:41)
[2024-06-18] MEDS ORDERED: cefTRIAXone (ROCEPHIN) 1 GM VIAL ONE (20:41)
[2024-06-18] MEDS ORDERED: Lactulose 20 GM (30 mL) UDCUP ONE (21:52)
[2024-06-18] MEDS ORDERED: Sodium Chloride 0.9% 1,000 ML IV SCH (22:00)
[2024-06-18] MEDS ORDERED: Dextrose 5% in Water 1,000 ML IV PRN (22:42)
[2024-06-18] MEDS ORDERED: Glucagon 1 MG/ML KIT IM PRN (22:42)
[2024-06-18] MEDS ORDERED: Dextrose 50% Abboject 50 ML SYRINGE SLOW IVP PRN (22:42)
[2024-06-18] MEDS: Lactated Ringer's 1,000 ML IV SCH (23:48)
[2024-06-18] MEDS: Lactulose 10 GM/15 ML Oral Solution PR SCH (23:49)
[2024-06-19 05:56] LABS: ALT (SGPT) 17 U/L (8-55); AST (SGOT) 27 U/L (5-34); Albumin 2.8 g/dL (3.5-5.0); Alkaline Phosphatase 85 U/L (40-110); Anion Gap 13 mmol/L (10-20); BUN (Urea Nitrogen) 46 mg/dL (9.8-20.1); Bilirubin, Total 1.9 mg/dL (0.2-1.2); Calc. Creatinine Clearance 34 mL/min (70-130); Calcium 8.4 mg/dL (7.8-10.44); Carbon Dioxide 21 mmol/L (22-29); Chloride 114 mmol/L (98-107); Estimated GFR 30; Globulin 1.9 g/dL (2.4-3.5); Glucose 133 mg/dL (70-105); Potassium 3.6 mmol/L (3.5-5.1); Protein, Total 4.7 g/dL (6.0-8.3); Sodium 144 mmol/L (136-145)
[2024-06-19 06:02] LABS: #Basophils 0.06 10x3/uL (0.0-0.2); %Basophils 1.6 % (0.0-1.0); %Eosinophils 11.3 % (0.0-10.0); %Lymphocytes 13.7 % (21.0-51.0); %Neutrophils 59.1 % (42.0-75.0); Hematocrit 29.2 % (36.0-47.0); Hemoglobin 9.2 g/dL (12.0-16.0); Mean Corpuscular HGB CONC 31.5 g/dL (32.0-36.0); Mean Corpuscular Hemoglobin 28.5 pg (27.0-31.0); Mean Corpuscular Volume 90.4 fL (78.0-98.0); Platelet Count 53 10x3/uL (130-400); RBC Distribution Width 15.7 % (11.5-14.5); Red Blood Cell (RBC) Count 3.23 mill/uL (4.20-5.40)
[2024-06-19] MEDS: Lactulose 20 GM (30 mL) UDCUP PR SCH (07:30)
[2024-06-19] MEDS ORDERED: Lactulose 10 GM/15 ML Oral Solution PR SCH (09:00)
[2024-06-19] MEDS ORDERED: Loratadine 10 MG TAB PO PRN (12:03)
[2024-06-19] MEDS ORDERED: Ondansetron ODT 4 MG TAB PO PRN (12:03)
[2024-06-19] MEDS ORDERED: Albuterol 200 PUFF (6.7GM INHALER) INH PRN (12:03)
[2024-06-19] MEDS ORDERED: Diclofenac 1% 50 GM TOPICAL GEL TP PRN (12:03)
[2024-06-19] MEDS: Lactulose 20 GM (30 mL) UDCUP PO SCH ×2 (12:53→16:15)
[2024-06-19] MEDS: BuPROPion XL 150 MG ER.TAB PO SCH (12:57)
[2024-06-19] MEDS: Midodrine HCl 5 MG TAB PO SCH (14:22)
[2024-06-19] MEDS: Sodium Bicarbonate Tab 325 MG TAB PO SCH (14:22)
[2024-06-19] MEDS ORDERED: Non-Formulary Item 1 EACH (Sodium Bicarbonate [Sodium Bicarbonate] 650 MG Tablet) PO SCH (15:00)
[2024-06-19] MEDS: Insulin Lispro 100 UNIT/ML 10 ML VIAL SC PRN ×2 (16:19→21:17)
[2024-06-19] MEDS: Rifaximin 550 MG TAB PO SCH (19:50)
[2024-06-19] MEDS: Cholecalciferol 1,000 UNITS (25 MCG) TAB PO SCH (19:50)
[2024-06-19] MEDS: Ferrous Sulfate 325 MG TAB PO SCH (19:50)
[2024-06-19] MEDS: Melatonin 3 MG TAB PO SCH (19:52)
[2024-06-19] MEDS ORDERED: Non-Formulary Item 1 EACH (Ferrous Sulfate [Ferrous Sulfate] 325 MG Tablet) PO SCH (21:00)
[2024-06-19] MEDS ORDERED: Non-Formulary Item 1 EACH (Melatonin/Pyridoxine [Melatonin 5 Mg Tablet] 1 EACH Tablet) PO SCH (21:00)
[2024-06-19] MEDS ORDERED: Non-Formulary Item 1 EACH (Cholecalciferol (Vitamin D3) [Vitamin D3] 1000 UNIT Capsule) PO SCH (21:00)
[2024-06-20 05:15] LABS: ALT (SGPT) 14 U/L (8-55); AST (SGOT) 24 U/L (5-34); Albumin 2.6 g/dL (3.5-5.0); Alkaline Phosphatase 80 U/L (40-110); Anion Gap 13 mmol/L (10-20); BUN (Urea Nitrogen) 41 mg/dL (9.8-20.1); Bilirubin, Total 1.8 mg/dL (0.2-1.2); Calc. Creatinine Clearance 30 mL/min (70-130); Calcium 7.9 mg/dL (7.8-10.44); Carbon Dioxide 20 mmol/L (22-29); Chloride 114 mmol/L (98-107); Estimated GFR 26; Globulin 1.8 g/dL (2.4-3.5); Glucose 112 mg/dL (70-105); Potassium 3.3 mmol/L (3.5-5.1); Protein, Total 4.4 g/dL (6.0-8.3); Sodium 144 mmol/L (136-145)
[2024-06-20 05:25] LABS: #Basophils 0.06 10x3/uL (0.0-0.2); %Basophils 1.5 % (0.0-1.0); %Eosinophils 12.1 % (0.0-10.0); %Lymphocytes 15.5 % (21.0-51.0); %Monocytes 11.2 % (0.0-10.0); %Neutrophils 59.5 % (42.0-75.0); Hematocrit 27.6 % (36.0-47.0); Hemoglobin 8.8 g/dL (12.0-16.0); Mean Corpuscular HGB CONC 31.9 g/dL (32.0-36.0); Mean Corpuscular Hemoglobin 28.7 pg (27.0-31.0); Mean Corpuscular Volume 89.9 fL (78.0-98.0); Platelet Count 37 10x3/uL (130-400); RBC Distribution Width 15.5 % (11.5-14.5); Red Blood Cell (RBC) Count 3.07 mill/uL (4.20-5.40)
[2024-06-20 07:41] VITALS: TEMP 97.8
[2024-06-20] MEDS ORDERED: [UNRECOGNIZED DRUG - OTHER] PO SCH (09:00)
[2024-06-20] MEDS ORDERED: CYANOCOBALAMIN 2000 MCG PO SCH (09:00)
[2024-06-20] MEDS: Pantoprazole DR 40 MG TAB PO SCH (09:04)
[2024-06-20] MEDS: Folic Acid 1 MG TAB PO SCH (09:04)
[2024-06-20] MEDS: Ascorbic Acid 500 mg Chewable Tablet PO SCH (09:04)
[2024-06-20] MEDS: Atorvastatin Calcium 10 MG TAB PO SCH (09:05)
[2024-06-20] MEDS: Cyanocobalamin (Vitamin B-12) 1,000 MCG TAB PO SCH (09:05)
[2024-06-20] MEDS: Magnesium Oxide 250 MG TAB PO SCH (09:05)
[2024-06-20] MEDS: Insulin Glargine 30 UNITS/0.3 ML VIAL SC SCH (09:05)
[2024-06-20] MEDS: Calcitriol 0.25 MCG CAP PO SCH (09:10)
[2024-06-20] MEDS ORDERED: Lidocaine 1% PF 5 ML VIAL ONE (09:42)
[2024-06-20] MEDS ORDERED: Sodium Bicarbonate 2.5 MEQ/5 ML SDV ONE (09:43)
[2024-06-20] MEDS: Potassium Chloride 20 MEQ TAB PO SCH (11:58)
[2024-06-20 12:24] VITALS: BMI 23.3
[2024-06-20] MEDS: Albumin 25% 25 GM (100 mL) BOT IVPB SCH (14:41)
[2024-06-20 16:26] VITALS: BP 125/74
[2024-06-21] MEDS ORDERED: FLU (Fluarix Triv) TS24-25(6MOS UP)/PF 45 MCG/0.5 ML Syringe IM ONE (09:00)
== END 2024-06-20 19:19 | disposition home or self-care (01) | DRG 441 ==
LOC: ERS 18:04 → T4-B 21:23
PROVIDERS: ADMIT Family Medicine; ATTEND Family Medicine
PROC: 0W9G3ZZ Drainage of Peritoneal Cavity, Percutaneous Approach (ICD-10-PCS; principal; 2024-06-20)
PROC: 30233J1 Transfusion of Nonautologous Serum Albumin into Peripheral Vein, Percutaneous Approach (ICD-10-PCS; 2024-06-20)
DX: K76.82 Hepatic encephalopathy (principal); K65.2 Spontaneous bacterial peritonitis; N17.9 Acute kidney failure, unspecified; I85.10 Secondary esophageal varices without bleeding; K70.31 Alcoholic cirrhosis of liver with ascites; D69.6 Thrombocytopenia, unspecified; K21.9 Gastro-esophageal reflux disease without esophagitis; N18.32 Chronic kidney disease, stage 3b; E11.22 Type 2 diabetes mellitus with diabetic chronic kidney disease; Z90.49 Acquired absence of other specified parts of digestive tract; Z90.89 Acquired absence of other organs; Z98.890 Other specified postprocedural states; Z91.048 Other nonmedicinal substance allergy status; Z88.2 Allergy status to sulfonamides; Z88.8 Allergy status to other drugs, medicaments and biological substances; Z88.5 Allergy status to narcotic agent; Z79.899 Other long term (current) drug therapy; Z79.4 Long term (current) use of insulin
CPT/HCPCS: 36415; 36416; 49083; 51701; 70450; 71045; 80053; 80306; 81001; 82140; 82805; 83605; 83690; 83735; 85025; 93005; 94760; 96365; 96366; J0696; J1642; J1815; J7120; P9047

== ENCOUNTER → 2024-06-27 | Day surgery (SDC) | payer OTHER ==
[~2024-06-27] MED LIST changes: -Lidocaine 1% PF 5 ML VIAL ONE; -Sodium Bicarbonate 2.5 MEQ/5 ML SDV ONE
[2024-06-27 15:56] LABS: RBC Count-Automated (BF) 0 /cu.mm; WBC/Nucleated-Auto (BF) 22 /cu.mm
[2024-06-27 16:46] LABS: Body Fluid Source Ascites Body Fluid; Clarity Clear (Clear); Tube # EDTA
[2024-06-27 16:47] LABS: BF Color Colorless
[2024-06-27 16:57] LABS: Cell Count Non Hematic 84 %; Lymphocytes 16 %
== END ==
LOC: ULT 10:01
PROVIDERS: ATTEND Internal Medicine Gastroenterology
PROC: 0W9G30Z Drainage of Peritoneal Cavity with Drainage Device, Percutaneous Approach (ICD-10-PCS; principal; 2024-06-27)
DX: K74.60 Unspecified cirrhosis of liver (principal); R18.8 Other ascites; D64.9 Anemia, unspecified; F41.9 Anxiety disorder, unspecified; E78.00 Pure hypercholesterolemia, unspecified; I10 Essential (primary) hypertension; Z87.891 Personal history of nicotine dependence; Z88.5 Allergy status to narcotic agent; Z88.0 Allergy status to penicillin; Z88.8 Allergy status to other drugs, medicaments and biological substances; Z79.899 Other long term (current) drug therapy
CPT/HCPCS: 49083; 82042; 84157; 85060; 87070; 87205; 89051; J1642; P9047

== ENCOUNTER 2024-06-29 10:09 | Inpatient (IN) | payer OTHER ==
[2024-06-29 10:56] LABS: #Basophils 0.06 10x3/uL (0.0-0.2); %Basophils 1.5 % (0.0-1.0); %Eosinophils 8.6 % (0.0-10.0); %Lymphocytes 12.6 % (21.0-51.0); %Monocytes 13.3 % (0.0-10.0); %Neutrophils 63.8 % (42.0-75.0); Hematocrit 32.3 % (36.0-47.0); Hemoglobin 10.3 g/dL (12.0-16.0); Mean Corpuscular HGB CONC 31.9 g/dL (32.0-36.0); Mean Corpuscular Hemoglobin 28.1 pg (27.0-31.0); Mean Corpuscular Volume 88.3 fL (78.0-98.0); Platelet Count 40 10x3/uL (130-400); RBC Distribution Width 15.3 % (11.5-14.5); Red Blood Cell (RBC) Count 3.66 mill/uL (4.20-5.40)
[2024-06-29 11:01] LABS: Troponin I Less than 0.010 ng/mL (< 0.028)
[2024-06-29 11:05] LABS: ALT (SGPT) 19 U/L (8-55); AST (SGOT) 29 U/L (5-34); Albumin 3.9 g/dL (3.5-5.0); Alkaline Phosphatase 106 U/L (40-110); Anion Gap 16 mmol/L (10-20); BUN (Urea Nitrogen) 49 mg/dL (9.8-20.1); Bilirubin, Total 2.1 mg/dL (0.2-1.2); Calc. Creatinine Clearance 0 mL/min (70-130); Calcium 8.9 mg/dL (7.8-10.44); Carbon Dioxide 15 mmol/L (22-29); Chloride 112 mmol/L (98-107); Estimated GFR 23; Globulin 2.1 g/dL (2.4-3.5); Glucose 249 mg/dL (70-105); Potassium 4.5 mmol/L (3.5-5.1); Sodium 138 mmol/L (136-145)
[2024-06-29 11:14] LABS: Bilirubin Negative (Negative); Blood, Urine Trace (Negative); CAUTI Indications for Culture Alt mental st,lethar; Clarity Clear (Clear); Glucose, Urine (Dipstick) Normal (Negative); Ketone, Urine Negative (Negative); Leukocyte 75 Leu/uL (Negative); Nitrite Negative (Negative); Protein, Urine (Dipstick) Negative (Neg-Trace); Urobilinogen Normal mg/dL (Less than 2); Yeast-Budding Rare HPF (None Seen); pH, Urine 5.5 (5.0-9.0)
[2024-06-29] MEDS ORDERED: Lactulose 20 GM (30 mL) UDCUP ONE (11:14)
[2024-06-29 11:23] LABS: Bacteria/HPF Rare-Few HPF (None Seen); Squamous Epithelial 0-3 HPF (0-3)
[2024-06-29 11:24] LABS: Urine Culture Reflex No No
[2024-06-29 11:25] LABS: INR-International Normal Ratio 1.3; PTT 40.5 sec (22.9-36.1); Prothrombin Time 16.6 sec (12.0-14.7)
[2024-06-29] MEDS ORDERED: Dextrose 50% Abboject 50 ML SYRINGE SLOW IVP PRN (14:12)
[2024-06-29] MEDS ORDERED: Glucagon 1 MG/ML KIT IM PRN (14:12)
[2024-06-29] MEDS ORDERED: Dextrose 5% in Water 1,000 ML IV PRN (14:12)
[2024-06-29] MEDS ORDERED: Insulin Lispro 100 UNIT/ML 10 ML VIAL SC PRN (14:12)
[2024-06-29] MEDS: Lactulose 20 GM (30 mL) UDCUP PO SCH (16:16)
[2024-06-30 05:19] LABS: ALT (SGPT) 16 U/L (8-55); AST (SGOT) 25 U/L (5-34); Albumin 3.2 g/dL (3.5-5.0); Alkaline Phosphatase 83 U/L (40-110); Anion Gap 14 mmol/L (10-20); BUN (Urea Nitrogen) 47 mg/dL (9.8-20.1); Bilirubin, Total 2.2 mg/dL (0.2-1.2); Calc. Creatinine Clearance 27 mL/min (70-130); Calcium 8.6 mg/dL (7.8-10.44); Carbon Dioxide 16 mmol/L (22-29); Chloride 117 mmol/L (98-107); Estimated GFR 26; Globulin 1.9 g/dL (2.4-3.5); Glucose 173 mg/dL (70-105); Potassium 4.2 mmol/L (3.5-5.1); Protein, Total 5.1 g/dL (6.0-8.3); Sodium 143 mmol/L (136-145)
[2024-06-30 05:20] LABS: #Basophils 0.09 10x3/uL (0.0-0.2); %Basophils 2.1 % (0.0-1.0); %Eosinophils 11.9 % (0.0-10.0); %Lymphocytes 14.3 % (21.0-51.0); %Monocytes 12.6 % (0.0-10.0); %Neutrophils 58.9 % (42.0-75.0); Hematocrit 29.1 % (36.0-47.0); Hemoglobin 9.5 g/dL (12.0-16.0); Mean Corpuscular HGB CONC 32.6 g/dL (32.0-36.0); Mean Corpuscular Hemoglobin 28.2 pg (27.0-31.0); Mean Corpuscular Volume 86.4 fL (78.0-98.0); Platelet Count 40 10x3/uL (130-400); RBC Distribution Width 15.2 % (11.5-14.5); Red Blood Cell (RBC) Count 3.37 mill/uL (4.20-5.40)
[2024-06-30] MEDS ORDERED: Insulin Lispro 100 UNIT/ML 10 ML VIAL SC PRN (06:20)
[2024-06-30] MEDS ORDERED: Albuterol 200 PUFF (6.7GM INHALER) INH PRN (08:12)
[2024-06-30] MEDS: Sodium Bicarbonate Tab 325 MG TAB PO SCH (08:36)
[2024-06-30] MEDS: Magnesium Oxide 250 MG TAB PO SCH (08:36)
[2024-06-30] MEDS: Ascorbic Acid 500 mg Chewable Tablet PO SCH (08:36)
[2024-06-30] MEDS: Midodrine HCl 5 MG TAB PO SCH (08:36)
[2024-06-30] MEDS: Atorvastatin Calcium 10 MG TAB PO SCH (08:36)
[2024-06-30] MEDS: BuPROPion XL 150 MG ER.TAB PO SCH (08:36)
[2024-06-30] MEDS: Cholecalciferol 1,000 UNITS (25 MCG) TAB PO SCH (08:37)
[2024-06-30] MEDS: Folic Acid 1 MG TAB PO SCH (08:37)
[2024-06-30] MEDS: Cyanocobalamin (Vitamin B-12) 1,000 MCG TAB PO SCH (08:37)
[2024-06-30] MEDS: Pantoprazole DR 40 MG TAB PO SCH (08:37)
[2024-06-30] MEDS ORDERED: [UNRECOGNIZED DRUG - OTHER] PO SCH (09:00)
[2024-06-30] MEDS ORDERED: CYANOCOBALAMIN 2000 MCG PO SCH (09:00)
[2024-06-30] MEDS ORDERED: Non-Formulary Item 1 EACH (Ferrous Sulfate [Ferrous Sulfate] 325 MG Tablet) PO SCH (09:00)
[2024-06-30] MEDS ORDERED: Non-Formulary Item 1 EACH (Sodium Bicarbonate [Sodium Bicarbonate] 650 MG Tablet) PO SCH (09:00)
[2024-06-30] MEDS ORDERED: Non-Formulary Item 1 EACH (Cholecalciferol (Vitamin D3) [Vitamin D3] 1000 UNIT Capsule) PO SCH (09:00)
[2024-06-30 10:29] VITALS: BMI 21.3
[2024-06-30] MEDS: Insulin Lispro 100 UNIT/ML 10 ML VIAL SC PRN (12:04)
[2024-06-30 12:35] VITALS: BP 133/67; TEMP 98.1
[2024-06-30] MEDS: Bisacodyl 10 MG SUPP PR SCH (12:38)
[2024-06-30] MEDS ORDERED: Ferrous Sulfate 325 MG TAB PO SCH (17:00)
[2024-07-02] MEDS ORDERED: Calcitriol 0.25 MCG CAP PO SCH (09:00)
[2024-07-02] MEDS ORDERED: FLU (Fluarix Triv) TS24-25(6MOS UP)/PF 45 MCG/0.5 ML Syringe IM ONE (16:45)
== END 2024-06-30 15:24 | disposition home or self-care (01) | DRG 442 ==
LOC: ERS 10:09 → ERHOLD 11:42 → 2SE 15:56
PROVIDERS: ADMIT Student in an Organized Health Care Education/Training Program; ATTEND Student in an Organized Health Care Education/Training Program
DX: K76.82 Hepatic encephalopathy (principal); E72.20 Disorder of urea cycle metabolism, unspecified; E87.20 Acidosis, unspecified; N17.9 Acute kidney failure, unspecified; I85.10 Secondary esophageal varices without bleeding; J45.909 Unspecified asthma, uncomplicated; D64.9 Anemia, unspecified; K21.9 Gastro-esophageal reflux disease without esophagitis; D69.6 Thrombocytopenia, unspecified; N18.9 Chronic kidney disease, unspecified; E11.22 Type 2 diabetes mellitus with diabetic chronic kidney disease; I12.9 Hypertensive chronic kidney disease with stage 1 through stage 4 chronic kidney disease, or unspecified chronic kidney disease; Z88.8 Allergy status to other drugs, medicaments and biological substances; Z88.2 Allergy status to sulfonamides; Z79.899 Other long term (current) drug therapy; K70.31 Alcoholic cirrhosis of liver with ascites; E11.65 Type 2 diabetes mellitus with hyperglycemia
CPT/HCPCS: 36415; 36416; 70450; 80053; 81001; 82140; 83605; 83880; 84484; 85025; 85610; 85730; 93005

== ENCOUNTER 2024-06-29 11:58 | Emergency (ER) | payer OTHER | END 2024-06-29 15:10 | disposition short-term general hospital (02) | LOC: ERS 11:58 | DX: K76.82 Hepatic encephalopathy (principal); K70.30 Alcoholic cirrhosis of liver without ascites | CPT/HCPCS: 51701 ==

== ENCOUNTER 2024-07-03 03:00 | Inpatient (IN) | payer OTHER ==
[2024-07-03 04:05] LABS: ALT (SGPT) 19 U/L (8-55); AST (SGOT) 25 U/L (5-34); Albumin 3.3 g/dL (3.5-5.0); Alkaline Phosphatase 103 U/L (40-110); Anion Gap 14 mmol/L (10-20); BUN (Urea Nitrogen) 43 mg/dL (9.8-20.1); Bilirubin, Total 1.7 mg/dL (0.2-1.2); Calc. Creatinine Clearance 0 mL/min (70-130); Calcium 8.6 mg/dL (7.8-10.44); Carbon Dioxide 18 mmol/L (22-29); Chloride 109 mmol/L (98-107); Estimated GFR 24; Globulin 2.2 g/dL (2.4-3.5); Glucose 235 mg/dL (70-105); Lipase 20 U/L (8-78); Potassium 4.1 mmol/L (3.5-5.1); Protein, Total 5.5 g/dL (6.0-8.3); Sodium 137 mmol/L (136-145)
[2024-07-03 04:06] LABS: #Basophils 0.08 10x3/uL (0.0-0.2); %Eosinophils 8.1 % (0.0-10.0); %Lymphocytes 15.7 % (21.0-51.0); %Monocytes 10.8 % (0.0-10.0); %Neutrophils 63.4 % (42.0-75.0); Hematocrit 30.6 % (36.0-47.0); Hemoglobin 9.9 g/dL (12.0-16.0); Mean Corpuscular HGB CONC 32.4 g/dL (32.0-36.0); Mean Corpuscular Hemoglobin 27.8 pg (27.0-31.0); Platelet Count 45 10x3/uL (130-400); RBC Distribution Width 15.3 % (11.5-14.5); Red Blood Cell (RBC) Count 3.56 mill/uL (4.20-5.40)
[2024-07-03 04:08] LABS: Troponin I Less than 0.010 ng/mL (< 0.028)
[2024-07-03 04:14] LABS: INR-International Normal Ratio 1.4; Prothrombin Time 17.3 sec (12.0-14.7)
[2024-07-03 04:15] LABS: PTT 42.9 sec (22.9-36.1)
[2024-07-03] MEDS ORDERED: Lactulose 20 GM (30 mL) UDCUP ONE (04:58)
[2024-07-03] MEDS ORDERED: Dextrose 5% in Water 1,000 ML IV PRN (05:09)
[2024-07-03] MEDS ORDERED: Dextrose 50% Abboject 50 ML SYRINGE SLOW IVP PRN (05:09)
[2024-07-03] MEDS ORDERED: Glucagon 1 MG/ML KIT IM PRN (05:09)
[2024-07-03] MEDS ORDERED: Insulin Lispro 100 UNIT/ML 10 ML VIAL SC PRN (05:10)
[2024-07-03] MEDS ORDERED: Albuterol 200 PUFF (6.7GM INHALER) INH PRN (05:18)
[2024-07-03] MEDS ORDERED: Ondansetron ODT 4 MG TAB PO PRN (05:18)
[2024-07-03] MEDS ORDERED: Loratadine 10 MG TAB PO PRN (05:18)
[2024-07-03] MEDS ORDERED: Diclofenac 1% 50 GM TOPICAL GEL TP PRN (05:18)
[2024-07-03 05:58] VITALS: BMI 21.1
[2024-07-03] MEDS: Sodium Bicarbonate Tab 325 MG TAB PO SCH (10:33)
[2024-07-03] MEDS: Ferrous Sulfate 325 MG TAB PO SCH (10:34)
[2024-07-03] MEDS: Atorvastatin Calcium 10 MG TAB PO SCH (10:34)
[2024-07-03] MEDS: Lactulose 20 GM (30 mL) UDCUP PO SCH (10:34)
[2024-07-03] MEDS: Pantoprazole DR 40 MG TAB PO SCH (10:34)
[2024-07-03] MEDS: Midodrine HCl 5 MG TAB PO SCH (10:34)
[2024-07-03] MEDS: Ascorbic Acid 500 mg Chewable Tablet PO SCH (10:34)
[2024-07-03] MEDS: BuPROPion XL 150 MG ER.TAB PO SCH (10:35)
[2024-07-03] MEDS: Cholecalciferol 1,000 UNITS (25 MCG) TAB PO SCH (10:35)
[2024-07-03] MEDS: Cyanocobalamin (Vitamin B-12) 1,000 MCG TAB PO SCH (10:35)
[2024-07-03] MEDS: Folic Acid 1 MG TAB PO SCH (10:35)
[2024-07-03] MEDS: Rifaximin 550 MG TAB PO SCH (10:35)
[2024-07-03] MEDS: Magnesium Oxide 250 MG TAB PO SCH (10:35)
[2024-07-03] MEDS: Insulin Glargine 30 UNITS/0.3 ML VIAL SC SCH (10:42)
[2024-07-03] MEDS ORDERED: FLU (Fluarix Triv) TS24-25(6MOS UP)/PF 45 MCG/0.5 ML Syringe IM ONE (12:00)
[2024-07-03] MEDS: Melatonin 3 MG TAB PO SCH (20:57)
[2024-07-04] MEDS: Lactulose 20 GM (30 mL) UDCUP PR ONE (01:26)
[2024-07-04] MEDS: Lactulose 10 GM/15 ML Oral Solution PR SCH ×3 (02:11→14:30)
[2024-07-04] MEDS: Calcitriol 0.25 MCG CAP PO SCH (05:11)
[2024-07-04 05:39] LABS: #Basophils 0.05 10x3/uL (0.0-0.2); %Basophils 0.9 % (0.0-1.0); %Eosinophils 3.6 % (0.0-10.0); %Lymphocytes 7.8 % (21.0-51.0); %Monocytes 10.7 % (0.0-10.0); %Neutrophils 76.8 % (42.0-75.0); Hematocrit 31.9 % (36.0-47.0); Hemoglobin 10.5 g/dL (12.0-16.0); Mean Corpuscular HGB CONC 32.9 g/dL (32.0-36.0); Mean Corpuscular Hemoglobin 27.8 pg (27.0-31.0); Mean Corpuscular Volume 84.4 fL (78.0-98.0); Mean Platelet Volume 11.8 fL (7.4-10.4); Platelet Count 47 10x3/uL (130-400); RBC Distribution Width 15.2 % (11.5-14.5); Red Blood Cell (RBC) Count 3.78 mill/uL (4.20-5.40)
[2024-07-04 06:14] LABS: Anion Gap 15 mmol/L (10-20); BUN (Urea Nitrogen) 43 mg/dL (9.8-20.1); Calc. Creatinine Clearance 24 mL/min (70-130); Calcium 8.7 mg/dL (7.8-10.44); Carbon Dioxide 18 mmol/L (22-29); Chloride 110 mmol/L (98-107); Estimated GFR 21; Glucose 192 mg/dL (70-105); Potassium 4.4 mmol/L (3.5-5.1); Sodium 139 mmol/L (136-145)
[2024-07-04 09:03] LABS: ALV-art Gradient 14.155 mmHg (0-20); Actual Bicarbonate (HCO3a) 20.3 mEq/L (22-28); Base Excess (BEa) -1.7 mEq/L (-2.0 to +3.0); CO2 Tension 26.3 mmHg (35.0-45.0); Calcium, Ionized (arterial) 1.18 mmol/L (1.12-1.30); Carboxyhemoglobin (COHb) 0.3 gm% (0.0-3.0); Hematocrit-ABG 33 % (36.0-47.0); Hemoglobin (Hb) 11.3 g/dL (12.0-16.0); O2 Tension (PaO2), arterial 102.7 mmHg (80.0-100.0); Potassium - ABG Lab 4.13 mmol/L (3.70-5.30); Puncture Site Right Radial artery; pH, Arterial 7.505 (7.35-7.45)
[2024-07-04] MEDS: Albumin 25% 25 GM (100 mL) BOT IVPB SCH (12:50)
[2024-07-04] MEDS ORDERED: Lactulose 10 GM/15 ML Oral Solution PR SCH (14:00)
[2024-07-05 05:15] LABS: Anion Gap 15 mmol/L (10-20); BUN (Urea Nitrogen) 46 mg/dL (9.8-20.1); Calc. Creatinine Clearance 30 mL/min (70-130); Calcium 8.8 mg/dL (7.8-10.44); Carbon Dioxide 16 mmol/L (22-29); Chloride 116 mmol/L (98-107); Estimated GFR 27; Glucose 164 mg/dL (70-105); Sodium 143 mmol/L (136-145)
[2024-07-05 06:11] LABS: #Basophils 0.08 10x3/uL (0.0-0.2); %Basophils 1.4 % (0.0-1.0); %Eosinophils 10.7 % (0.0-10.0); %Lymphocytes 12.8 % (21.0-51.0); %Monocytes 11.1 % (0.0-10.0); %Neutrophils 63.6 % (42.0-75.0); Hematocrit 30.1 % (36.0-47.0); Hemoglobin 9.9 g/dL (12.0-16.0); Mean Corpuscular HGB CONC 32.9 g/dL (32.0-36.0); Mean Corpuscular Hemoglobin 28.4 pg (27.0-31.0); Mean Corpuscular Volume 86.2 fL (78.0-98.0); Platelet Count 39 10x3/uL (130-400); RBC Distribution Width 15.5 % (11.5-14.5); Red Blood Cell (RBC) Count 3.49 mill/uL (4.20-5.40)
[2024-07-05] MEDS: Insulin Lispro 100 UNIT/ML 10 ML VIAL SC PRN (17:04)
[2024-07-06 05:40] LABS: #Basophils 0.09 10x3/uL (0.0-0.2); %Basophils 1.7 % (0.0-1.0); %Eosinophils 12.7 % (0.0-10.0); %Lymphocytes 14.2 % (21.0-51.0); %Monocytes 11.5 % (0.0-10.0); %Neutrophils 59.5 % (42.0-75.0); Hematocrit 29.2 % (36.0-47.0); Hemoglobin 9.6 g/dL (12.0-16.0); Mean Corpuscular HGB CONC 32.9 g/dL (32.0-36.0); Mean Corpuscular Hemoglobin 28.1 pg (27.0-31.0); Mean Corpuscular Volume 85.4 fL (78.0-98.0); Platelet Count 43 10x3/uL (130-400); RBC Distribution Width 15.3 % (11.5-14.5); Red Blood Cell (RBC) Count 3.42 mill/uL (4.20-5.40)
[2024-07-06 06:06] LABS: Anion Gap 15 mmol/L (10-20); BUN (Urea Nitrogen) 44 mg/dL (9.8-20.1); Calc. Creatinine Clearance 29 mL/min (70-130); Calcium 8.5 mg/dL (7.8-10.44); Carbon Dioxide 19 mmol/L (22-29); Chloride 112 mmol/L (98-107); Estimated GFR 25; Glucose 97 mg/dL (70-105); Potassium 3.5 mmol/L (3.5-5.1); Sodium 142 mmol/L (136-145)
[2024-07-06] MEDS ORDERED: Albumin 25% 100 ML ONE ×2 (10:51→11:27)
[2024-07-06] MEDS ORDERED: Lidocaine 1% PF 5 ML VIAL ONE (10:51)
[2024-07-06 13:34] VITALS: BP 126/69; TEMP 98.4
== END 2024-07-06 13:05 | disposition home or self-care (01) | DRG 442 ==
LOC: ERS 03:00 → T4-B 05:55 → IMCU/EMU 07-04 10:52 → OBSVTOIN 07-04 12:21 → MSONC 07-05 09:11
PROVIDERS: ADMIT Student in an Organized Health Care Education/Training Program; ATTEND Student in an Organized Health Care Education/Training Program
PROC: 0W9G3ZZ Drainage of Peritoneal Cavity, Percutaneous Approach (ICD-10-PCS; principal; 2024-07-04)
PROC: 30233J1 Transfusion of Nonautologous Serum Albumin into Peripheral Vein, Percutaneous Approach (ICD-10-PCS; 2024-07-04)
PROC: 0W9G3ZZ Drainage of Peritoneal Cavity, Percutaneous Approach (ICD-10-PCS; 2024-07-06)
DX: K76.82 Hepatic encephalopathy (principal); E87.20 Acidosis, unspecified; N17.9 Acute kidney failure, unspecified; I85.00 Esophageal varices without bleeding; K72.10 Chronic hepatic failure without coma; K21.9 Gastro-esophageal reflux disease without esophagitis; K74.60 Unspecified cirrhosis of liver; D64.9 Anemia, unspecified; E11.22 Type 2 diabetes mellitus with diabetic chronic kidney disease; D69.6 Thrombocytopenia, unspecified; N18.9 Chronic kidney disease, unspecified; Z88.5 Allergy status to narcotic agent; Z88.4 Allergy status to anesthetic agent; Z88.2 Allergy status to sulfonamides; Z88.8 Allergy status to other drugs, medicaments and biological substances; Z79.4 Long term (current) use of insulin; Z79.899 Other long term (current) drug therapy; Z79.02 Long term (current) use of antithrombotics/antiplatelets; Z79.51 Long term (current) use of inhaled steroids; Z90.49 Acquired absence of other specified parts of digestive tract; Z90.89 Acquired absence of other organs; Z91.199 Patient's noncompliance with other medical treatment and regimen due to unspecified reason
CPT/HCPCS: 36415; 36416; 36600; 49083; 71045; 80048; 80053; 82140; 82805; 83690; 84484; 85025; 85610; 85730; 93005; 93010; J1642; J1815; P9047

== ENCOUNTER 2024-07-07 00:42 | Inpatient (IN) | payer OTHER ==
[2024-07-07 01:45] LABS: #Basophils 0.03 10x3/uL (0.0-0.2); %Basophils 0.8 % (0.0-1.0); %Eosinophils 1.9 % (0.0-10.0); %Lymphocytes 3.3 % (21.0-51.0); %Monocytes 9.5 % (0.0-10.0); %Neutrophils 83.7 % (42.0-75.0); Hematocrit 32.4 % (36.0-47.0); Hemoglobin 10.8 g/dL (12.0-16.0); Mean Corpuscular HGB CONC 33.3 g/dL (32.0-36.0); Mean Corpuscular Hemoglobin 28.2 pg (27.0-31.0); Mean Corpuscular Volume 84.6 fL (78.0-98.0); Platelet Count 26 10x3/uL (130-400); RBC Distribution Width 14.8 % (11.5-14.5); Red Blood Cell (RBC) Count 3.83 mill/uL (4.20-5.40)
[2024-07-07 01:46] LABS: Bacteria/HPF 1+ HPF (None Seen); Bilirubin Negative (Negative); Blood, Urine 1+ (Negative); CAUTI Indications for Culture Alt mental st,lethar; Clarity Clear (Clear); Glucose, Urine (Dipstick) Normal (Negative); Ketone, Urine Negative (Negative); Leukocyte 250 Leu/uL (Negative); Nitrite Negative (Negative); Protein, Urine (Dipstick) 10 mg/dL (Neg-Trace); Renal Epithelial 0-3 HPF (None Seen); Specific Gravity, Urine 1.012 (1.002-1.036); Urobilinogen Normal mg/dL (Less than 2); pH, Urine 5.5 (5.0-9.0)
[2024-07-07 01:47] LABS: Urine Culture Reflex Yes Yes
[2024-07-07 01:55] LABS: INR-International Normal Ratio 1.5; PTT 38.6 sec (22.9-36.1); Prothrombin Time 18.3 sec (12.0-14.7)
[2024-07-07 02:04] LABS: ALT (SGPT) 19 U/L (8-55); AST (SGOT) 29 U/L (5-34); Albumin 4.1 g/dL (3.5-5.0); Alkaline Phosphatase 84 U/L (40-110); Anion Gap 15 mmol/L (10-20); BUN (Urea Nitrogen) 46 mg/dL (9.8-20.1); Bilirubin, Total 2.4 mg/dL (0.2-1.2); Calc. Creatinine Clearance 0 mL/min (70-130); Calcium 9.3 mg/dL (7.8-10.44); Carbon Dioxide 21 mmol/L (22-29); Chloride 107 mmol/L (98-107); Estimated GFR 24; Glucose 152 mg/dL (70-105); Lipase 17 U/L (8-78); Potassium 3.9 mmol/L (3.5-5.1); Protein, Total 6.1 g/dL (6.0-8.3); Sodium 139 mmol/L (136-145)
[2024-07-07 02:07] LABS: Troponin I Less than 0.010 ng/mL (< 0.028)
[2024-07-07] MEDS ORDERED: Dextrose 50% Abboject 50 ML SYRINGE SLOW IVP PRN (02:50)
[2024-07-07] MEDS ORDERED: Glucagon 1 MG/ML KIT IM PRN (02:50)
[2024-07-07] MEDS ORDERED: Dextrose 5% in Water 1,000 ML IV PRN (02:50)
[2024-07-07] MEDS ORDERED: Insulin Lispro 100 UNIT/ML 10 ML VIAL SC PRN (02:51)
[2024-07-07] MEDS ORDERED: Albuterol 200 PUFF (6.7GM INHALER) INH PRN (02:56)
[2024-07-07] MEDS ORDERED: Diclofenac 1% 50 GM TOPICAL GEL TP PRN (02:56)
[2024-07-07] MEDS ORDERED: Lactulose 20 GM (30 mL) UDCUP ONE (03:34)
[2024-07-07] MEDS: Ondansetron ODT 4 MG TAB PO SCH (06:05)
[2024-07-07] MEDS: cefTRIAXone\\ROCEPHIN 1 GM in Sodium Chloride 0.9% 100 ML IVPB SCH (06:12)
[2024-07-07] MEDS: Lactated Ringer's 1,000 ML IV SCH (07:06)
[2024-07-07] MEDS: BuPROPion XL 150 MG ER.TAB PO SCH (08:37)
[2024-07-07] MEDS: Ascorbic Acid 500 mg Chewable Tablet PO SCH (08:37)
[2024-07-07] MEDS: Ferrous Sulfate 325 MG TAB PO SCH (08:37)
[2024-07-07] MEDS: Atorvastatin Calcium 10 MG TAB PO SCH (08:37)
[2024-07-07] MEDS: Cholecalciferol 1,000 UNITS (25 MCG) TAB PO SCH (08:38)
[2024-07-07] MEDS: Pantoprazole DR 40 MG TAB PO SCH (08:38)
[2024-07-07] MEDS: Midodrine HCl 5 MG TAB PO SCH (08:38)
[2024-07-07] MEDS: Cyanocobalamin (Vitamin B-12) 1,000 MCG TAB PO SCH (08:38)
[2024-07-07] MEDS: Magnesium Oxide 250 MG TAB PO SCH (08:38)
[2024-07-07] MEDS: Cipro 250 MG TAB PO SCH (08:38)
[2024-07-07] MEDS: busPIRone HCl 10 MG TAB PO SCH (08:38)
[2024-07-07] MEDS: Lactulose 10 GM/15 ML Oral Solution PR SCH (08:38)
[2024-07-07] MEDS: Loratadine 10 MG TAB PO SCH (08:38)
[2024-07-07] MEDS: Folic Acid 1 MG TAB PO SCH (08:38)
[2024-07-07] MEDS: Sodium Bicarbonate Tab 325 MG TAB PO SCH (08:38)
[2024-07-07] MEDS: Rifaximin 550 MG TAB PO SCH (08:38)
[2024-07-07] MEDS ORDERED: Insulin Glargine 30 UNITS/0.3 ML VIAL SC SCH (09:00)
[2024-07-07] MEDS: Insulin Lispro 100 UNIT/ML 10 ML VIAL SC PRN (16:37)
[2024-07-07] MEDS: traMADol HCl 50 MG TAB PO PRN (17:26)
[2024-07-07] MEDS: Melatonin 3 MG TAB PO SCH (21:21)
[2024-07-07] MEDS: Lactulose 20 GM (30 mL) UDCUP PO SCH (21:22)
[2024-07-08 05:28] VITALS: BMI 21.6
[2024-07-08 06:36] LABS: #Basophils 0.04 10x3/uL (0.0-0.2); %Basophils 1.1 % (0.0-1.0); %Eosinophils 9.7 % (0.0-10.0); %Monocytes 17.3 % (0.0-10.0); %Neutrophils 61.6 % (42.0-75.0); Hematocrit 27.7 % (36.0-47.0); Hemoglobin 9.2 g/dL (12.0-16.0); Mean Corpuscular HGB CONC 33.2 g/dL (32.0-36.0); Mean Corpuscular Hemoglobin 28.1 pg (27.0-31.0); Mean Corpuscular Volume 84.7 fL (78.0-98.0); Platelet Count 31 10x3/uL (130-400); RBC Distribution Width 14.9 % (11.5-14.5); Red Blood Cell (RBC) Count 3.27 mill/uL (4.20-5.40)
[2024-07-08 06:57] LABS: Anion Gap 13 mmol/L (10-20); BUN (Urea Nitrogen) 45 mg/dL (9.8-20.1); Calc. Creatinine Clearance 35 mL/min (70-130); Calcium 8.2 mg/dL (7.8-10.44); Carbon Dioxide 20 mmol/L (22-29); Chloride 108 mmol/L (98-107); Estimated GFR 33; Glucose 142 mg/dL (70-105); Potassium 3.3 mmol/L (3.5-5.1); Sodium 138 mmol/L (136-145)
[2024-07-08] MEDS: Lidocaine 4% Patch TD SCH (08:53)
[2024-07-08] MEDS: Potassium Chloride 20 MEQ TAB PO SCH (09:37)
[2024-07-08 11:07] VITALS: BMI 21.6
[2024-07-08] MEDS: Transdermal Patch Removal TOP SCH (21:30)
[2024-07-09 05:56] LABS: #Basophils 0.07 10x3/uL (0.0-0.2); %Basophils 1.5 % (0.0-1.0); %Eosinophils 13.1 % (0.0-10.0); %Lymphocytes 12.9 % (21.0-51.0); %Monocytes 16.5 % (0.0-10.0); %Neutrophils 55.4 % (42.0-75.0); Hematocrit 28.6 % (36.0-47.0); Hemoglobin 9.4 g/dL (12.0-16.0); Mean Corpuscular HGB CONC 32.9 g/dL (32.0-36.0); Mean Corpuscular Volume 85.1 fL (78.0-98.0); Platelet Count 44 10x3/uL (130-400); RBC Distribution Width 15.2 % (11.5-14.5); Red Blood Cell (RBC) Count 3.36 mill/uL (4.20-5.40)
[2024-07-09 06:20] LABS: Anion Gap 13 mmol/L (10-20); BUN (Urea Nitrogen) 53 mg/dL (9.8-20.1); Calc. Creatinine Clearance 28 mL/min (70-130); Calcium 7.8 mg/dL (7.8-10.44); Carbon Dioxide 21 mmol/L (22-29); Chloride 107 mmol/L (98-107); Estimated GFR 26; Glucose 282 mg/dL (70-105); Potassium 3.5 mmol/L (3.5-5.1); Sodium 137 mmol/L (136-145)
[2024-07-09] MEDS: Cipro 250 MG TAB PO SCH (10:34)
[2024-07-09] MEDS: Calcitriol 0.25 MCG CAP PO SCH (10:35)
[2024-07-09 16:44] LABS: Anion Gap 14 mmol/L (10-20); BUN (Urea Nitrogen) 51 mg/dL (9.8-20.1); Calc. Creatinine Clearance 28 mL/min (70-130); Carbon Dioxide 19 mmol/L (22-29); Chloride 107 mmol/L (98-107); Estimated GFR 26; Glucose 217 mg/dL (70-105); Potassium 3.3 mmol/L (3.5-5.1); Sodium 137 mmol/L (136-145)
[2024-07-10 04:12] LABS: #Basophils 0.06 10x3/uL (0.0-0.2); %Basophils 1.4 % (0.0-1.0); %Eosinophils 14.6 % (0.0-10.0); %Monocytes 16.2 % (0.0-10.0); %Neutrophils 51.6 % (42.0-75.0); Hematocrit 27.5 % (36.0-47.0); Hemoglobin 8.9 g/dL (12.0-16.0); Mean Corpuscular HGB CONC 32.4 g/dL (32.0-36.0); Mean Corpuscular Hemoglobin 27.7 pg (27.0-31.0); Mean Corpuscular Volume 85.7 fL (78.0-98.0); Platelet Count 43 10x3/uL (130-400); RBC Distribution Width 15.1 % (11.5-14.5); Red Blood Cell (RBC) Count 3.21 mill/uL (4.20-5.40)
[2024-07-10 04:20] LABS: Anion Gap 12 mmol/L (10-20); BUN (Urea Nitrogen) 49 mg/dL (9.8-20.1); Calc. Creatinine Clearance 33 mL/min (70-130); Calcium 7.8 mg/dL (7.8-10.44); Carbon Dioxide 19 mmol/L (22-29); Chloride 106 mmol/L (98-107); Estimated GFR 31; Glucose 219 mg/dL (70-105); Potassium 2.8 mmol/L (3.5-5.1); Sodium 134 mmol/L (136-145)
[2024-07-10] MEDS: Potassium Chloride 20 MEQ TAB PO SCH (08:48)
[2024-07-10] MEDS: Potassium Chloride 20 MEQ in Premix 1 BAG IVPB SCH (08:49)
[2024-07-10] MEDS: Insulin Glargine 30 UNITS/0.3 ML VIAL SC SCH (08:49)
[2024-07-10] MEDS: FLU (Fluarix Triv) TS24-25(6MOS UP)/PF 45 MCG/0.5 ML Syringe IM ONE (08:57)
[2024-07-10 09:32] LABS: Magnesium 1.8 mg/dL (1.6-2.6)
[2024-07-10 15:59] LABS: Anion Gap 11 mmol/L (10-20); BUN (Urea Nitrogen) 49 mg/dL (9.8-20.1); Calc. Creatinine Clearance 30 mL/min (70-130); Calcium 8.2 mg/dL (7.8-10.44); Carbon Dioxide 18 mmol/L (22-29); Chloride 107 mmol/L (98-107); Estimated GFR 27; Glucose 204 mg/dL (70-105); Potassium 4.5 mmol/L (3.5-5.1); Sodium 131 mmol/L (136-145)
[2024-07-10 17:00] VITALS: BP 129/81; TEMP 98.7
== END 2024-07-10 17:55 | disposition home or self-care (01) | DRG 442 ==
LOC: ERS 00:42 → MSONC 02:50 → INTOOBSV 02:50 → OBSVTOIN 07-09 13:17
PROVIDERS: ADMIT Student in an Organized Health Care Education/Training Program; ATTEND Student in an Organized Health Care Education/Training Program
DX: K76.82 Hepatic encephalopathy (principal); D61.818 Other pancytopenia; E72.20 Disorder of urea cycle metabolism, unspecified; N17.9 Acute kidney failure, unspecified; I85.00 Esophageal varices without bleeding; K72.10 Chronic hepatic failure without coma; R82.71 Bacteriuria; E87.6 Hypokalemia; D64.9 Anemia, unspecified; D69.6 Thrombocytopenia, unspecified; K74.60 Unspecified cirrhosis of liver; I49.3 Ventricular premature depolarization; B95.2 Enterococcus as the cause of diseases classified elsewhere; E11.9 Type 2 diabetes mellitus without complications; F41.9 Anxiety disorder, unspecified; F32.A Depression, unspecified; Z90.49 Acquired absence of other specified parts of digestive tract; Z98.891 History of uterine scar from previous surgery; Z79.899 Other long term (current) drug therapy; Z79.4 Long term (current) use of insulin; Z88.5 Allergy status to narcotic agent; Z88.8 Allergy status to other drugs, medicaments and biological substances; Z91.09 Other allergy status, other than to drugs and biological substances; Z88.2 Allergy status to sulfonamides; K21.9 Gastro-esophageal reflux disease without esophagitis; Z23 Encounter for immunization
CPT/HCPCS: 36415; 36416; 51701; 70450; 71045; 72040; 80048; 80053; 81001; 82140; 83690; 83735; 84443; 84484; 85025; 85610; 85730; 87077; 87086; 87186; 93005; 94760; 96376; G0378; J0696; J1815; J3480; J7120; Q0162

== ENCOUNTER 2024-07-11 11:12 | Day surgery (SDC) | payer OTHER ==
[2024-07-11] MEDS ORDERED: Lidocaine 1% PF 5 ML VIAL ONE (11:13)
[2024-07-11] MEDS ORDERED: Albumin 25% 200 ML ONE (11:13)
[2024-07-11 15:32] LABS: RBC Count-Automated (BF) 0 /cu.mm; WBC/Nucleated-Auto (BF) 0 /cu.mm
[2024-07-11 15:34] LABS: BF Color Yellow; Body Fluid Source Ascites Body Fluid; Clarity Clear (Clear); Tube # EDTA
== END 2024-07-11 13:00 | disposition home or self-care (01) ==
LOC: ULT 11:12
PROVIDERS: ATTEND Internal Medicine Gastroenterology
PROC: 0W9G30Z Drainage of Peritoneal Cavity with Drainage Device, Percutaneous Approach (ICD-10-PCS; principal; 2024-07-11)
DX: R18.8 Other ascites (principal)
CPT/HCPCS: 49083; 82042; 84157; 87070; 87205; 89051; J1642; P9047

== ENCOUNTER → 2024-07-18 | Day surgery (SDC) | payer OTHER ==
[~2024-07-18] MED LIST changes: +Lidocaine 1% PF 5 ML VIAL ONE; +Sodium Bicarbonate 2.5 MEQ/5 ML SDV ONE
[2024-07-18 16:29] LABS: BF Color Yellow; BF RBC Count - Manual 178 /cu.mm; BF WBC/Nonhematics Ct.-Manual 60 /cu.mm; Body Fluid Source Ascites Body Fluid; Clarity Hazy (Clear); Tube # EDTA
[2024-07-18 16:34] LABS: BF Segmented Neutrophils 4 %; Cell Count Non Hematic 67 %; Lymphocytes 29 %
== END ==
LOC: ULT 12:48
PROVIDERS: ATTEND Internal Medicine Gastroenterology
PROC: 0W9G3ZZ Drainage of Peritoneal Cavity, Percutaneous Approach (ICD-10-PCS; principal; 2024-07-18)
DX: R18.8 Other ascites (principal)
CPT/HCPCS: 49083; 82042; 84157; 85060; 87070; 87205; 89051; J1642; P9047

== ENCOUNTER → 2024-07-25 | Day surgery (SDC) | payer OTHER ==
[2024-07-25 13:27] LABS: INR-International Normal Ratio 1.4; Prothrombin Time 17.1 sec (12.0-14.7)
[2024-07-25 13:31] LABS: ALT (SGPT) 18 U/L (8-55); AST (SGOT) 27 U/L (5-34); Albumin 2.8 g/dL (3.5-5.0); Alkaline Phosphatase 109 U/L (40-110); Anion Gap 14 mmol/L (10-20); BUN (Urea Nitrogen) 73 mg/dL (9.8-20.1); Bilirubin, Total 0.7 mg/dL (0.2-1.2); Calc. Creatinine Clearance 0 mL/min (70-130); Carbon Dioxide 15 mmol/L (22-29); Chloride 106 mmol/L (98-107); Estimated GFR 21; Globulin 2.2 g/dL (2.4-3.5); Glucose 280 mg/dL (70-105); Magnesium 2.2 mg/dL (1.6-2.6); Potassium 4.7 mmol/L (3.5-5.1); Sodium 130 mmol/L (136-145)
[2024-07-25 14:14] LABS: #Basophils 0.11 10x3/uL (0.0-0.2); %Basophils 1.7 % (0.0-1.0); %Eosinophils 7.9 % (0.0-10.0); %Lymphocytes 9.7 % (21.0-51.0); %Monocytes 9.5 % (0.0-10.0); %Neutrophils 70.7 % (42.0-75.0); Hemoglobin 6.2 g/dL (12.0-16.0); Mean Corpuscular Hemoglobin 28.8 pg (27.0-31.0); Mean Platelet Volume 10.9 fL (7.4-10.4); Platelet Count 109 10x3/uL (130-400); Red Blood Cell (RBC) Count 2.15 mill/uL (4.20-5.40)
[2024-07-25 14:39] LABS: RBC Count-Automated (BF) 0 /cu.mm; WBC/Nucleated-Auto (BF) 34 /cu.mm
[2024-07-25 15:25] LABS: Anisocytosis MARKED = >30 cells HPF (0-5); Hypochromia SLIGHT = 6-15 cells HPF (0-5); Macrocytosis SLIGHT = 6-15 cells HPF (0-5); Ovalocytes SLIGHT = 2-5 cells HPF (0-1); Platelet Adequacy Comment Platelets Decreased; Polychromasia SLIGHT = 2-3 cells HPF (0-2); Schistocytes SLIGHT = 2-5 cells HPF (0-1)
[2024-07-25 15:50] LABS: BF Color Colorless; Body Fluid Source Ascites Body Fluid; Clarity Hazy (Clear); Tube # EDTA
[2024-07-25 15:59] LABS: BF Segmented Neutrophils 3 %; Cell Count Non Hematic 72 %; Lymphocytes 25 %
== END ==
LOC: ULT 10:58
PROVIDERS: ATTEND Internal Medicine Gastroenterology
PROC: 0W9G30Z Drainage of Peritoneal Cavity with Drainage Device, Percutaneous Approach (ICD-10-PCS; principal; 2024-07-25)
DX: K74.60 Unspecified cirrhosis of liver (principal); R18.8 Other ascites; Z88.5 Allergy status to narcotic agent; Z88.0 Allergy status to penicillin; Z88.2 Allergy status to sulfonamides
CPT/HCPCS: 49083; 80053; 82042; 83735; 84157; 85025; 85060; 85610; 87070; 87205; 89051; J1642; P9047

== ENCOUNTER 2024-08-01 10:47 | Day surgery (SDC) | payer OTHER ==
[2024-08-01] MEDS ORDERED: Albumin 25% 200 ML ONE (11:50)
[2024-08-01] MEDS ORDERED: Lidocaine 1% PF 5 ML VIAL ONE (11:50)
[2024-08-01 12:36] VITALS: BP 136/80; TEMP 97.9
[2024-08-01 13:31] LABS: RBC Count-Automated (BF) 11 /cu.mm; WBC/Nucleated-Auto (BF) 46 /cu.mm
[2024-08-01 13:54] LABS: BF Color Yellow; Body Fluid Source Ascites Body Fluid; Clarity Hazy (Clear); Tube # EDTA
[2024-08-01 14:00] LABS: BF Segmented Neutrophils 6 %; Cell Count Non Hematic 62 %; Lymphocytes 32 %
== END 2024-08-01 13:20 | disposition home or self-care (01) ==
LOC: ULT 10:47
PROVIDERS: ATTEND Internal Medicine Gastroenterology
PROC: 0W9G30Z Drainage of Peritoneal Cavity with Drainage Device, Percutaneous Approach (ICD-10-PCS; principal; 2024-08-01)
DX: K74.60 Unspecified cirrhosis of liver (principal); R18.8 Other ascites; D64.9 Anemia, unspecified; F41.9 Anxiety disorder, unspecified; E78.00 Pure hypercholesterolemia, unspecified; I10 Essential (primary) hypertension; K31.819 Angiodysplasia of stomach and duodenum without bleeding; Z88.5 Allergy status to narcotic agent; Z88.0 Allergy status to penicillin; Z88.2 Allergy status to sulfonamides; Z88.8 Allergy status to other drugs, medicaments and biological substances; Z87.891 Personal history of nicotine dependence; Z79.899 Other long term (current) drug therapy
CPT/HCPCS: 49083; 82042; 84157; 85060; 87070; 87205; 89051; J1642; P9047

== ENCOUNTER 2024-08-04 11:49 | Emergency (ER) | payer OTHER ==
[2024-08-04 12:43] LABS: #Basophils 0.07 10x3/uL (0.0-0.2); %Basophils 1.7 % (0.0-1.0); %Eosinophils 10.6 % (0.0-10.0); %Lymphocytes 10.4 % (21.0-51.0); %Monocytes 13.6 % (0.0-10.0); %Neutrophils 63.2 % (42.0-75.0); Hematocrit 21.8 % (36.0-47.0); Hemoglobin 6.7 g/dL (12.0-16.0); Mean Corpuscular HGB CONC 30.7 g/dL (32.0-36.0); Mean Corpuscular Volume 94.4 fL (78.0-98.0); Mean Platelet Volume 11.7 fL (7.4-10.4); Platelet Count 61 10x3/uL (130-400); RBC Distribution Width 16.9 % (11.5-14.5); Red Blood Cell (RBC) Count 2.31 mill/uL (4.20-5.40)
[2024-08-04 12:49] LABS: INR-International Normal Ratio 1.5; Prothrombin Time 18.4 sec (12.0-14.7)
[2024-08-04 12:50] LABS: PTT 41.1 sec (22.9-36.1)
[2024-08-04 13:17] LABS: ALT (SGPT) 22 U/L (8-55); AST (SGOT) 27 U/L (5-34); Albumin 3.2 g/dL (3.5-5.0); Alkaline Phosphatase 116 U/L (40-110); Anion Gap 14 mmol/L (10-20); BUN (Urea Nitrogen) 62 mg/dL (9.8-20.1); Bilirubin, Total 0.9 mg/dL (0.2-1.2); Calc. Creatinine Clearance 0 mL/min (70-130); Calcium 8.1 mg/dL (7.8-10.44); Carbon Dioxide 14 mmol/L (22-29); Chloride 102 mmol/L (98-107); Estimated GFR 17; Globulin 2.2 g/dL (2.4-3.5); Glucose 567 mg/dL (70-105); Lipase 46 U/L (8-78); Potassium 3.8 mmol/L (3.5-5.1); Protein, Total 5.4 g/dL (6.0-8.3); Sodium 126 mmol/L (136-145)
[2024-08-04 13:25] LABS: Anisocytosis MODERATE=16-30 cells HPF (0-5); Helmet Cells SLIGHT = 2-5 cells HPF (0-1); Hypochromia SLIGHT = 6-15 cells HPF (0-5); Microcytosis SLIGHT = 6-15 cells HPF (0-5); Ovalocytes SLIGHT = 2-5 cells HPF (0-1); Platelet Adequacy Comment Significant Decrease; Polychromasia SLIGHT = 2-3 cells HPF (0-2); Tear Drops SLIGHT = 2-5 cells HPF (0-1)
[2024-08-04] MEDS ORDERED: Insulin Lispro 100 UNIT/ML 10 ML VIAL ONE (15:03)
[2024-08-04 18:05] LABS: HBsAg Index 0.29 S/CO (0-0.99); HIV (1/2) Antibody/Antigen NONREACTIVE (NonReactive); HIV 1/2 INDEX 0.09 S/CO (<1.00); Hep B Surf Ag NONREACTIVE S/CO (NonReactive); Hep C IgG Ab NONREACTIVE S/CO (NonReactive); Hep C Index 0.15 S/CO (0-0.79)
== END 2024-08-04 16:40 | disposition home or self-care (01) ==
LOC: ERS 11:49
DX: D64.9 Anemia, unspecified (principal); K74.60 Unspecified cirrhosis of liver; E11.9 Type 2 diabetes mellitus without complications
CPT/HCPCS: 36415; 36430; 80053; 82140; 83690; 85025; 85610; 85730; 86803; 86850; 86900; 86901; 87340; 87389; 93005; 96374; J1642; J1815; P9016

== ENCOUNTER → 2024-08-08 | Day surgery (SDC) | payer OTHER ==
[~2024-08-08] MED LIST changes: +Albumin 25% 100 ML ONE; -Albumin 25% 200 ML ONE; -Sodium Bicarbonate 2.5 MEQ/5 ML SDV ONE
[2024-08-08 12:09] LABS: INR-International Normal Ratio 1.4; Prothrombin Time 17.5 sec (12.0-14.7)
[2024-08-08 12:10] LABS: PTT 55.5 sec (22.9-36.1)
[2024-08-08 12:34] LABS: %Basophils 1.7 % (0.0-1.0); %Eosinophils 13.8 % (0.0-10.0); %Lymphocytes 10.8 % (21.0-51.0); %Monocytes 13.4 % (0.0-10.0); %Neutrophils 60.1 % (42.0-75.0); Hemoglobin 8.4 g/dL (12.0-16.0); Mean Corpuscular HGB CONC 32.3 g/dL (32.0-36.0); Mean Corpuscular Hemoglobin 29.6 pg (27.0-31.0); Mean Corpuscular Volume 91.5 fL (78.0-98.0); Mean Platelet Volume 12.2 fL (7.4-10.4); Platelet Count 63 10x3/uL (130-400); Red Blood Cell (RBC) Count 2.84 mill/uL (4.20-5.40)
[2024-08-08 14:10] LABS: ALT (SGPT) 20 U/L (8-55); AST (SGOT) 30 U/L (5-34); Alkaline Phosphatase 117 U/L (40-110); Anion Gap 13 mmol/L (10-20); BUN (Urea Nitrogen) 64 mg/dL (9.8-20.1); Bilirubin, Total 0.8 mg/dL (0.2-1.2); Calc. Creatinine Clearance 0 mL/min (70-130); Carbon Dioxide 15 mmol/L (22-29); Chloride 108 mmol/L (98-107); Estimated GFR 23; Globulin 2.2 g/dL (2.4-3.5); Glucose 366 mg/dL (70-105); Potassium 4.3 mmol/L (3.5-5.1); Protein, Total 5.2 g/dL (6.0-8.3); Sodium 132 mmol/L (136-145)
[2024-08-08 14:43] LABS: RBC Count-Automated (BF) 11 /cu.mm; WBC/Nucleated-Auto (BF) 11 /cu.mm
[2024-08-08 15:00] LABS: Anisocytosis SLIGHT = 6-15 cells HPF (0-5); Burr Cells SLIGHT = 2-5 cells HPF (0-1); Macrocytosis SLIGHT = 6-15 cells HPF (0-5); Ovalocytes SLIGHT = 2-5 cells HPF (0-1); Platelet Adequacy Comment Platelets Decreased
[2024-08-08 15:24] LABS: Body Fluid Source Ascites Body Fluid; Tube # EDTA
[2024-08-08 15:25] LABS: BF Color Colorless; Clarity Hazy (Clear)
[2024-08-08 15:42] LABS: Cell Count Non Hematic 96 %; Lymphocytes 4 %
== END ==
LOC: ULT 11:00
PROVIDERS: ATTEND Internal Medicine Gastroenterology
PROC: 0W9G3ZZ Drainage of Peritoneal Cavity, Percutaneous Approach (ICD-10-PCS; principal; 2024-08-08)
DX: R18.8 Other ascites (principal); Z88.2 Allergy status to sulfonamides; Z88.5 Allergy status to narcotic agent; Z88.8 Allergy status to other drugs, medicaments and biological substances; Z91.048 Other nonmedicinal substance allergy status
CPT/HCPCS: 49083; 80053; 82042; 83735; 84157; 85025; 85060; 85610; 85730; 87070; 87205; 89051; J1642; P9047

== ENCOUNTER 2024-08-15 10:06 | Day surgery (SDC) | payer OTHER ==
[2024-08-15] MEDS ORDERED: Lidocaine 1% PF 5 ML VIAL ONE (10:14)
[2024-08-15] MEDS ORDERED: Sodium Bicarbonate 2.5 MEQ/5 ML SDV ONE (10:14)
[2024-08-15] MEDS ORDERED: Albumin 25% 200 ML ONE (10:14)
[2024-08-15 12:59] LABS: #Basophils 0.04 10x3/uL (0.0-0.2); %Basophils 0.6 % (0.0-1.0); %Eosinophils 8.8 % (0.0-10.0); %Lymphocytes 5.3 % (21.0-51.0); %Monocytes 11.3 % (0.0-10.0); %Neutrophils 73.7 % (42.0-75.0); Hematocrit 20.6 % (36.0-47.0); Hemoglobin 6.5 g/dL (12.0-16.0); Mean Corpuscular HGB CONC 31.6 g/dL (32.0-36.0); Mean Corpuscular Hemoglobin 28.8 pg (27.0-31.0); Mean Corpuscular Volume 91.2 fL (78.0-98.0); Mean Platelet Volume 10.7 fL (7.4-10.4); Platelet Count 56 10x3/uL (130-400); RBC Distribution Width 15.5 % (11.5-14.5); Red Blood Cell (RBC) Count 2.26 mill/uL (4.20-5.40)
[2024-08-15 13:18] LABS: RBC Count-Automated (BF) 91187 /cu.mm; WBC/Nucleated-Auto (BF) 111 /cu.mm
[2024-08-15 14:40] LABS: Body Fluid Source Ascites Body Fluid
[2024-08-15 14:41] LABS: BF Color Red; Clarity Cloudy/Turbid (Clear); Tube # EDTA
[2024-08-15 14:46] LABS: BF Segmented Neutrophils 12 %; Cell Count Non Hematic 35 %; Eosinophils 3 %; Lymphocytes 50 %
== END 2024-08-15 13:50 | disposition short-term general hospital (02) ==
LOC: ULT 10:06
PROVIDERS: ATTEND Internal Medicine Gastroenterology
PROC: 0W9G30Z Drainage of Peritoneal Cavity with Drainage Device, Percutaneous Approach (ICD-10-PCS; principal; 2024-08-15)
DX: K74.60 Unspecified cirrhosis of liver (principal); R18.0 Malignant ascites; D64.9 Anemia, unspecified; F41.9 Anxiety disorder, unspecified; E78.00 Pure hypercholesterolemia, unspecified; I10 Essential (primary) hypertension; Z98.890 Other specified postprocedural states; Z88.5 Allergy status to narcotic agent; Z88.0 Allergy status to penicillin; Z88.2 Allergy status to sulfonamides; Z88.8 Allergy status to other drugs, medicaments and biological substances; Z79.899 Other long term (current) drug therapy; Z87.891 Personal history of nicotine dependence
CPT/HCPCS: 36415; 36430; 49083; 80053; 82042; 84157; 84484; 85025; 85060; 85610; 85730; 86850; 86900; 86901; 87070; 87205; 89051; 93005; 99284; J1642; P9016; P9047

== ENCOUNTER 2024-08-15 13:59 | Emergency (ER) | payer OTHER ==
[2024-08-15 20:29] LABS: #Basophils 0.04 10x3/uL (0.0-0.2); %Basophils 0.8 % (0.0-1.0); %Eosinophils 9.1 % (0.0-10.0); %Lymphocytes 7.4 % (21.0-51.0); %Monocytes 12.1 % (0.0-10.0); %Neutrophils 70.4 % (42.0-75.0); Hematocrit 21.9 % (36.0-47.0); Hemoglobin 6.9 g/dL (12.0-16.0); Mean Corpuscular HGB CONC 31.5 g/dL (32.0-36.0); Mean Corpuscular Hemoglobin 28.9 pg (27.0-31.0); Mean Corpuscular Volume 91.6 fL (78.0-98.0); Mean Platelet Volume 9.9 fL (7.4-10.4); Platelet Count 50 10x3/uL (130-400); RBC Distribution Width 15.1 % (11.5-14.5); Red Blood Cell (RBC) Count 2.39 mill/uL (4.20-5.40)
[2024-08-15 20:36] LABS: INR-International Normal Ratio 1.5; PTT 50.4 sec (22.9-36.1)
[2024-08-15 20:38] LABS: ALT (SGPT) 12 U/L (8-55); AST (SGOT) 15 U/L (5-34); Albumin 3.3 g/dL (3.5-5.0); Alkaline Phosphatase 82 U/L (40-110); Anion Gap 13 mmol/L (10-20); BUN (Urea Nitrogen) 66 mg/dL (9.8-20.1); Bilirubin, Total 0.9 mg/dL (0.2-1.2); Calc. Creatinine Clearance 0 mL/min (70-130); Calcium 8.2 mg/dL (7.8-10.44); Carbon Dioxide 13 mmol/L (22-29); Chloride 108 mmol/L (98-107); Estimated GFR 21; Globulin 2.1 g/dL (2.4-3.5); Glucose 353 mg/dL (70-105); Potassium 4.4 mmol/L (3.5-5.1); Protein, Total 5.4 g/dL (6.0-8.3); Sodium 130 mmol/L (136-145)
[2024-08-15 20:43] LABS: Troponin I Less than 0.010 ng/mL (< 0.028)
== END 2024-08-16 02:07 | disposition home or self-care (01) ==
LOC: ERS 13:59
DX: D64.9 Anemia, unspecified (principal); E87.22 Chronic metabolic acidosis; E11.65 Type 2 diabetes mellitus with hyperglycemia; E11.22 Type 2 diabetes mellitus with diabetic chronic kidney disease; N18.9 Chronic kidney disease, unspecified
CPT/HCPCS: 36415; 36430; 80053; 84484; 85610; 85730; 86850; 86900; 86901; 93005

== ENCOUNTER 2024-08-28 10:13 | Day surgery (SDC) | payer OTHER ==
[2024-08-28 11:57] LABS: INR-International Normal Ratio 1.4; Prothrombin Time 17.4 sec (12.0-14.7)
[2024-08-28 12:04] LABS: ALT (SGPT) 12 U/L (8-55); AST (SGOT) 17 U/L (5-34); Albumin 2.8 g/dL (3.5-5.0); Alkaline Phosphatase 89 U/L (40-110); Anion Gap 14 mmol/L (10-20); BUN (Urea Nitrogen) 70 mg/dL (9.8-20.1); Bilirubin, Total 0.8 mg/dL (0.2-1.2); Calc. Creatinine Clearance 0 mL/min (70-130); Calcium 8.3 mg/dL (7.8-10.44); Carbon Dioxide 16 mmol/L (22-29); Chloride 107 mmol/L (98-107); Estimated GFR 26; Globulin 2.5 g/dL (2.4-3.5); Glucose 373 mg/dL (70-105); Magnesium 1.8 mg/dL (1.6-2.6); Potassium 5.1 mmol/L (3.5-5.1); Protein, Total 5.3 g/dL (6.0-8.3); Sodium 132 mmol/L (136-145)
[2024-08-28 12:33] LABS: #Basophils 0.11 10x3/uL (0.0-0.2); %Basophils 1.3 % (0.0-1.0); %Eosinophils 6.9 % (0.0-10.0); %Lymphocytes 5.2 % (21.0-51.0); %Monocytes 10.9 % (0.0-10.0); %Neutrophils 75.3 % (42.0-75.0); Hematocrit 28.2 % (36.0-47.0); Hemoglobin 9.1 g/dL (12.0-16.0); Mean Corpuscular HGB CONC 32.3 g/dL (32.0-36.0); Mean Corpuscular Hemoglobin 27.2 pg (27.0-31.0); Mean Corpuscular Volume 84.4 fL (78.0-98.0); Platelet Count 67 10x3/uL (130-400); Red Blood Cell (RBC) Count 3.34 mill/uL (4.20-5.40)
[2024-08-28 13:07] LABS: RBC Count-Automated (BF) 987 /cu.mm; WBC/Nucleated-Auto (BF) 4075 /cu.mm
[2024-08-28 13:19] LABS: BF Color Yellow; Body Fluid Source Ascites Body Fluid; Clarity Hazy (Clear); Tube # EDTA
[2024-08-28 13:34] LABS: BF Segmented Neutrophils 24 %; Cell Count Non Hematic 63 %; Lymphocytes 13 %
== END 2024-08-28 11:50 | disposition home or self-care (01) ==
LOC: ULT 10:13
PROVIDERS: ATTEND Internal Medicine Gastroenterology
PROC: 0W9G3ZZ Drainage of Peritoneal Cavity, Percutaneous Approach (ICD-10-PCS; principal; 2024-08-28)
DX: R18.8 Other ascites (principal)
CPT/HCPCS: 49083; 80053; 83735; 85025; 85060; 85610; 87070; 87205; 89051

== ENCOUNTER 2024-09-05 10:31 | Day surgery (SDC) | payer OTHER ==
[2024-09-05] MEDS ORDERED: Albumin 25% 200 ML ONE (10:36)
[2024-09-05 16:46] LABS: RBC Count-Automated (BF) 0 /cu.mm; WBC/Nucleated-Auto (BF) 260 /cu.mm
[2024-09-05 17:44] LABS: Body Fluid Source Ascites Body Fluid; Clarity Hazy (Clear); Tube # EDTA
[2024-09-05 17:45] LABS: BF Color Yellow
[2024-09-05 17:54] LABS: BF Segmented Neutrophils 5 %
[2024-09-05 17:55] LABS: Cell Count Non Hematic 77 %; Eosinophils 1 %; Lymphocytes 17 %
== END 2024-09-05 12:20 | disposition home or self-care (01) ==
LOC: ULT 10:31
PROVIDERS: ATTEND Internal Medicine Gastroenterology
PROC: 0W9G3ZZ Drainage of Peritoneal Cavity, Percutaneous Approach (ICD-10-PCS; principal; 2024-09-05)
DX: R18.8 Other ascites (principal); Z88.2 Allergy status to sulfonamides; Z88.5 Allergy status to narcotic agent; Z88.8 Allergy status to other drugs, medicaments and biological substances
CPT/HCPCS: 49083; 82042; 84157; 85060; 87070; 87205; 89051; J1642; P9047

== ENCOUNTER → 2024-09-12 | Day surgery (SDC) | payer MEDICAID, OTHER ==
[~2024-09-12] MED LIST changes: -Albumin 25% 100 ML ONE; +Albumin 25% 200 ML ONE; -Lidocaine 1% PF 5 ML VIAL ONE; +Sodium Bicarbonate 2.5 MEQ/5 ML SDV ONE
[2024-09-12 14:05] LABS: RBC Count-Automated (BF) 45 /cu.mm; WBC/Nucleated-Auto (BF) 11 /cu.mm
[2024-09-12 14:09] LABS: Hematocrit 23.1 % (36.0-47.0); Hemoglobin 7.2 g/dL (12.0-16.0); INR-International Normal Ratio 1.5; Mean Corpuscular HGB CONC 31.2 g/dL (32.0-36.0); Mean Corpuscular Hemoglobin 27.1 pg (27.0-31.0); Mean Corpuscular Volume 86.8 fL (78.0-98.0); Mean Platelet Volume 11.3 fL (7.4-10.4); Platelet Count 107 10x3/uL (130-400); Prothrombin Time 18.1 sec (12.0-14.7); RBC Distribution Width 17.9 % (11.5-14.5); Red Blood Cell (RBC) Count 2.66 mill/uL (4.20-5.40)
[2024-09-12 14:16] LABS: ALT (SGPT) 20 U/L (8-55); AST (SGOT) 29 U/L (5-34); Albumin 2.5 g/dL (3.5-5.0); Alkaline Phosphatase 95 U/L (40-110); Anion Gap 13 mmol/L (10-20); BUN (Urea Nitrogen) 64 mg/dL (9.8-20.1); Bilirubin, Total 0.6 mg/dL (0.2-1.2); Calc. Creatinine Clearance 0 mL/min (70-130); Calcium 8.2 mg/dL (7.8-10.44); Carbon Dioxide 17 mmol/L (22-29); Chloride 108 mmol/L (98-107); Estimated GFR 26; Globulin 3.1 g/dL (2.4-3.5); Glucose 372 mg/dL (70-105); Magnesium 1.9 mg/dL (1.6-2.6); Potassium 5.2 mmol/L (3.5-5.1); Protein, Total 5.6 g/dL (6.0-8.3); Sodium 133 mmol/L (136-145)
[2024-09-12 14:33] LABS: Anisocytosis SLIGHT = 6-15 cells HPF (0-5); Band 5 % (5-11); Eosinophils 13 % (0-10); Large Platelets 5.1 % (0-5); Lymphocytes 6 % (21-51); Monocytes 10 % (0-10); Neutrophil 64 % (42-75); Platelet Adequacy Comment Platelets Decreased; Polychromasia SLIGHT = 2-3 cells HPF (0-2); Schistocytes SLIGHT = 2-5 cells HPF (0-1); Smudge Cells 10.1 %
[2024-09-12 14:37] LABS: BF Color White; Body Fluid Source Ascites Body Fluid; Clarity Hazy (Clear); Tube # EDTA
[2024-09-12 14:39] LABS: BF Segmented Neutrophils 10 %; Cell Count Non Hematic 70 %; Lymphocytes 20 %
== END ==
LOC: ULT 10:26
PROVIDERS: ATTEND Internal Medicine Gastroenterology
PROC: 0W9G3ZZ Drainage of Peritoneal Cavity, Percutaneous Approach (ICD-10-PCS; principal; 2024-09-12)
DX: R18.8 Other ascites (principal); Z88.2 Allergy status to sulfonamides; Z88.5 Allergy status to narcotic agent; Z88.8 Allergy status to other drugs, medicaments and biological substances
CPT/HCPCS: 49083; 80053; 82042; 83735; 84157; 85025; 85060; 85610; 87070; 87205; 89051; J1642; P9047

== ENCOUNTER 2024-09-18 10:21 | Day surgery (SDC) | payer MEDICAID, OTHER ==
[2024-09-18] MEDS ORDERED: Lidocaine 1% w/Epinephrine 1:100K 20 ML VIAL ONE (10:26)
[2024-09-18] MEDS ORDERED: Albumin 25% 200 ML ONE (10:26)
[2024-09-18] MEDS ORDERED: Sodium Bicarbonate 2.5 MEQ/5 ML SDV ONE (10:26)
[2024-09-18 14:29] LABS: RBC Count-Automated (BF) 0 /cu.mm; WBC/Nucleated-Auto (BF) 0 /cu.mm
[2024-09-18 15:12] LABS: Body Fluid Source Ascites Body Fluid; Tube # EDTA
[2024-09-18 15:13] LABS: BF Color White; Clarity Hazy (Clear)
== END 2024-09-18 12:15 | disposition home or self-care (01) ==
LOC: ULT 10:21
PROVIDERS: ATTEND Internal Medicine Gastroenterology
PROC: 0W9G30Z Drainage of Peritoneal Cavity with Drainage Device, Percutaneous Approach (ICD-10-PCS; principal; 2024-09-18)
DX: R18.8 Other ascites (principal); Z88.2 Allergy status to sulfonamides; Z88.0 Allergy status to penicillin; Z79.899 Other long term (current) drug therapy
CPT/HCPCS: 49083; 82042; 84157; 87070; 87205; 89051; J1642; P9047

== ENCOUNTER 2024-09-26 13:14 | Emergency (ER) | payer OTHER ==
[2024-09-26 14:44] LABS: INR-International Normal Ratio 1.5; PTT 44.6 sec (22.9-36.1); Prothrombin Time 18.5 sec (12.0-14.7)
[2024-09-26 14:45] LABS: #Basophils 0.05 10x3/uL (0.0-0.2); %Basophils 0.9 % (0.0-1.0); %Eosinophils 11.3 % (0.0-10.0); %Lymphocytes 7.2 % (21.0-51.0); %Monocytes 12.9 % (0.0-10.0); %Neutrophils 67.1 % (42.0-75.0); Hematocrit 19.6 % (36.0-47.0); Hemoglobin 6.3 g/dL (12.0-16.0); Mean Corpuscular HGB CONC 32.1 g/dL (32.0-36.0); Mean Corpuscular Volume 87.1 fL (78.0-98.0); Mean Platelet Volume 10.8 fL (7.4-10.4); Platelet Count 86 10x3/uL (130-400); RBC Distribution Width 17.3 % (11.5-14.5); Red Blood Cell (RBC) Count 2.25 mill/uL (4.20-5.40)
[2024-09-26 14:56] LABS: Anion Gap 15 mmol/L (10-20); BUN (Urea Nitrogen) 55 mg/dL (9.8-20.1); Carbon Dioxide 17 mmol/L (22-29); Chloride 102 mmol/L (98-107); Sodium 130 mmol/L (136-145)
[2024-09-26 14:57] LABS: Calc. Creatinine Clearance 0 mL/min (70-130); Estimated GFR 28
[2024-09-26 14:58] LABS: Albumin 3.6 g/dL (3.1-4.5); Bilirubin, Total 0.8 mg/dL (0.3-1.2); Calcium 8.6 mg/dL (7.8-10.44); Protein, Total 6.3 g/dL (6.0-8.3)
[2024-09-26 14:59] LABS: ALT (SGPT) 21 U/L (Less than 34); AST (SGOT) 26 U/L (11-34); Alkaline Phosphatase 98 U/L (40-110); Globulin 2.7 g/dL (2.4-3.5)
[2024-09-26 15:00] LABS: Glucose 436 mg/dL (70-105)
[2024-09-26] MEDS ORDERED: Insulin Lispro 100 UNIT/ML 10 ML VIAL ONE (17:53)
== END 2024-09-26 21:09 | disposition home or self-care (01) ==
LOC: ERS 13:14
DX: D64.9 Anemia, unspecified (principal); E11.65 Type 2 diabetes mellitus with hyperglycemia; E11.40 Type 2 diabetes mellitus with diabetic neuropathy, unspecified; K21.9 Gastro-esophageal reflux disease without esophagitis; Z87.891 Personal history of nicotine dependence; Z79.899 Other long term (current) drug therapy
CPT/HCPCS: 36415; 36416; 36430; 85730; 86850; 86900; 86901; J1642; J1815; P9016

== ENCOUNTER → 2024-09-26 | Day surgery (SDC) | payer MEDICAID, OTHER ==
[~2024-09-26] MED LIST changes: +Lidocaine 1% PF 5 ML VIAL ONE
[2024-09-26 12:21] LABS: #Basophils 0.06 10x3/uL (0.0-0.2); %Eosinophils 10.5 % (0.0-10.0); %Lymphocytes 6.8 % (21.0-51.0); %Monocytes 12.8 % (0.0-10.0); %Neutrophils 68.6 % (42.0-75.0); Hematocrit 20.1 % (36.0-47.0); Hemoglobin 6.4 g/dL (12.0-16.0); Mean Corpuscular HGB CONC 31.8 g/dL (32.0-36.0); Mean Corpuscular Hemoglobin 27.8 pg (27.0-31.0); Mean Corpuscular Volume 87.4 fL (78.0-98.0); Mean Platelet Volume 11.2 fL (7.4-10.4); Platelet Count 103 10x3/uL (130-400); RBC Distribution Width 17.3 % (11.5-14.5)
[2024-09-26 12:45] LABS: INR-International Normal Ratio 1.5; Prothrombin Time 17.7 sec (12.0-14.7)
[2024-09-26 13:46] LABS: ALT (SGPT) 22 U/L (Less than 34); AST (SGOT) 32 U/L (11-34); Albumin 2.5 g/dL (3.1-4.5); Alkaline Phosphatase 99 U/L (40-110); Anion Gap 13 mmol/L (10-20); BUN (Urea Nitrogen) 58 mg/dL (9.8-20.1); Bilirubin, Total 0.6 mg/dL (0.3-1.2); Calc. Creatinine Clearance 0 mL/min (70-130); Calcium 8.2 mg/dL (7.8-10.44); Carbon Dioxide 18 mmol/L (22-29); Chloride 103 mmol/L (98-107); Estimated GFR 27; Glucose 554 mg/dL (70-105); Potassium 4.6 mmol/L (3.5-5.1); Protein, Total 5.5 g/dL (6.0-8.3); Sodium 129 mmol/L (136-145)
[2024-09-26 15:04] LABS: RBC Count-Automated (BF) 50394 /cu.mm; WBC/Nucleated-Auto (BF) 27 /cu.mm
[2024-09-26 16:10] LABS: BF Color Red; Body Fluid Source Ascites Body Fluid; Clarity Cloudy/Turbid (Clear); Tube # EDTA
[2024-09-26 16:20] LABS: BF Segmented Neutrophils 9 %; Cell Count Non Hematic 58 %; Eosinophils 3 %; Lymphocytes 30 %
== END ==
LOC: ULT 10:12
PROVIDERS: ATTEND Internal Medicine Gastroenterology
PROC: 0W9G30Z Drainage of Peritoneal Cavity with Drainage Device, Percutaneous Approach (ICD-10-PCS; principal; 2024-09-26)
DX: K74.60 Unspecified cirrhosis of liver (principal); R18.8 Other ascites; Z88.5 Allergy status to narcotic agent; Z88.0 Allergy status to penicillin; Z88.2 Allergy status to sulfonamides; Z88.6 Allergy status to analgesic agent; Z91.09 Other allergy status, other than to drugs and biological substances; Z88.8 Allergy status to other drugs, medicaments and biological substances; D64.9 Anemia, unspecified; E11.65 Type 2 diabetes mellitus with hyperglycemia; E11.40 Type 2 diabetes mellitus with diabetic neuropathy, unspecified; K21.9 Gastro-esophageal reflux disease without esophagitis; Z87.891 Personal history of nicotine dependence; Z79.899 Other long term (current) drug therapy
CPT/HCPCS: 36415; 36416; 36430; 49083; 80053; 82042; 83735; 84157; 85025; 85060; 85610; 85730; 86850; 86900; 86901; 87070; 87205; 89051; 99284; J1642; J1815; P9016; P9047

== ENCOUNTER 2024-10-03 10:26 | Day surgery (SDC) | payer MEDICAID, OTHER ==
[2024-10-03] MEDS ORDERED: Lidocaine 1% w/Epinephrine 1:100K 20 ML VIAL ONE (10:41)
[2024-10-03] MEDS ORDERED: Albumin 25% 200 ML ONE (10:41)
[2024-10-03 13:22] LABS: Body Fluid Source Ascites Body Fluid; RBC Count-Automated (BF) 7481 /cu.mm; Tube # EDTA; WBC/Nucleated-Auto (BF) 0 /cu.mm
[2024-10-03 13:23] LABS: BF Color Pink; Clarity Hazy (Clear)
== END 2024-10-03 12:35 | disposition home or self-care (01) ==
LOC: ULT 10:26
PROVIDERS: ATTEND Internal Medicine Gastroenterology
PROC: 0W9G3ZZ Drainage of Peritoneal Cavity, Percutaneous Approach (ICD-10-PCS; principal; 2024-10-03)
DX: K74.60 Unspecified cirrhosis of liver (principal); R18.8 Other ascites; Z88.5 Allergy status to narcotic agent; Z88.2 Allergy status to sulfonamides; Z88.8 Allergy status to other drugs, medicaments and biological substances; Z88.0 Allergy status to penicillin; Z91.048 Other nonmedicinal substance allergy status
CPT/HCPCS: 49083; 82042; 84157; 87070; 87205; 89051; J1642; P9047

== ENCOUNTER 2024-10-10 10:15 | Day surgery (SDC) | payer OTHER ==
[2024-10-10] MEDS ORDERED: Lidocaine 1% PF 5 ML VIAL ONE (10:34)
[2024-10-10] MEDS ORDERED: Sodium Bicarbonate 2.5 MEQ/5 ML SDV ONE (10:34)
[2024-10-10] MEDS ORDERED: Albumin 25% 200 ML ONE (10:34)
[2024-10-10 11:52] VITALS: BMI 20.9
[2024-10-10 13:52] LABS: #Basophils 0.06 10x3/uL (0.0-0.2); %Basophils 1.3 % (0.0-1.0); %Eosinophils 11.5 % (0.0-10.0); %Lymphocytes 8.8 % (21.0-51.0); %Monocytes 13.3 % (0.0-10.0); %Neutrophils 64.7 % (42.0-75.0); Hematocrit 23.2 % (36.0-47.0); Hemoglobin 7.5 g/dL (12.0-16.0); Mean Corpuscular HGB CONC 32.3 g/dL (32.0-36.0); Mean Corpuscular Hemoglobin 28.1 pg (27.0-31.0); Mean Corpuscular Volume 86.9 fL (78.0-98.0); Mean Platelet Volume 10.8 fL (7.4-10.4); Platelet Count 60 10x3/uL (130-400); RBC Distribution Width 14.9 % (11.5-14.5); Red Blood Cell (RBC) Count 2.67 mill/uL (4.20-5.40)
[2024-10-10 14:06] LABS: ALT (SGPT) 12 U/L (Less than 34); AST (SGOT) 22 U/L (11-34); Albumin 3.5 g/dL (3.1-4.5); Alkaline Phosphatase 89 U/L (40-110); Anion Gap 14 mmol/L (10-20); BUN (Urea Nitrogen) 57 mg/dL (9.8-20.1); Calc. Creatinine Clearance 25 mL/min (70-130); Calcium 8.5 mg/dL (7.8-10.44); Carbon Dioxide 19 mmol/L (22-29); Chloride 101 mmol/L (98-107); Estimated GFR 24; Globulin 2.6 g/dL (2.4-3.5); Glucose 613 mg/dL (70-105); Protein, Total 6.1 g/dL (6.0-8.3); Sodium 130 mmol/L (136-145)
[2024-10-10 14:10] LABS: INR-International Normal Ratio 1.5; Prothrombin Time 18.3 sec (12.0-14.7)
[2024-10-10 14:59] LABS: RBC Count-Automated (BF) 118 /cu.mm; WBC/Nucleated-Auto (BF) 12 /cu.mm
[2024-10-10 15:21] LABS: BF Color Yellow; Body Fluid Source Paracentesis Fluid; Clarity Hazy (Clear); Tube # EDTA
[2024-10-10 15:40] LABS: BF Segmented Neutrophils 7 %; Cell Count Non Hematic 83 %; Lymphocytes 10 %
== END 2024-10-10 12:45 | disposition home or self-care (01) ==
LOC: ULT 10:15
PROVIDERS: ATTEND Internal Medicine Gastroenterology
PROC: 0W9G3ZZ Drainage of Peritoneal Cavity, Percutaneous Approach (ICD-10-PCS; principal; 2024-10-10)
DX: K74.60 Unspecified cirrhosis of liver (principal); R18.8 Other ascites; Z88.5 Allergy status to narcotic agent; Z88.8 Allergy status to other drugs, medicaments and biological substances; Z88.0 Allergy status to penicillin; Z88.2 Allergy status to sulfonamides
CPT/HCPCS: 49083; 80053; 82042; 83735; 84157; 85025; 85060; 85610; 85730; 87070; 87205; 89051; J1642; P9047

== ENCOUNTER → 2025-03-27 | Day surgery (SDC) | payer OTHER ==
[~2025-03-27] MED LIST changes: -Albumin 25% 200 ML ONE; -Sodium Bicarbonate 2.5 MEQ/5 ML SDV ONE
[2025-03-27 12:55] LABS: ALT (SGPT) 10 U/L (Less than 34); AST (SGOT) 23 U/L (11-34); Albumin 2.9 g/dL (3.1-4.5); Alkaline Phosphatase 109 U/L (40-110); Anion Gap 13 mmol/L (10-20); BUN (Urea Nitrogen) 65 mg/dL (9.8-20.1); Bilirubin, Total 1.1 mg/dL (0.3-1.2); Calc. Creatinine Clearance 0 mL/min (70-130); Calcium 8.3 mg/dL (7.8-10.44); Carbon Dioxide 16 mmol/L (22-29); Chloride 107 mmol/L (98-107); Globulin 3.1 g/dL (2.4-3.5); Glucose 258 mg/dL (70-105); Magnesium 1.7 mg/dL (1.6-2.6); Potassium 4.0 mmol/L (3.5-5.1); Sodium 132 mmol/L (136-145)
[2025-03-27 13:48] LABS: #Basophils 0.08 10x3/uL (0.0-0.2); #Eosinophils 0.69 10x3/uL (0.0-0.7); #Monocytes 0.70 10x3/uL (0.11-0.59); #Neutrophils 3.60 10x3/uL (1.40-6.50); %Basophils 1.4 % (0.0-1.0); %Eosinophils 12.2 % (0.0-10.0); %Lymphocytes 10.1 % (21.0-51.0); %Monocytes 12.4 % (0.0-10.0); %Neutrophils 63.5 % (42.0-75.0); Hematocrit 26.2 % (36.0-47.0); Hemoglobin 8.5 g/dL (12.0-16.0); Mean Corpuscular Hemoglobin 27.2 pg (27.0-31.0); Mean Corpuscular Volume 84.0 fL (78.0-98.0); Platelet Count 78 10x3/uL (130-400); Red Blood Cell (RBC) Count 3.12 mill/uL (4.20-5.40); White Blood Cell (WBC) Count 5.66 10x3/uL (4.8-10.8)
[2025-03-27 14:01] LABS: INR-International Normal Ratio 1.5; Prothrombin Time 18.2 sec (12.0-14.7)
[2025-03-27 14:02] LABS: PTT 50.1 sec (22.9-36.1)
[2025-03-27 14:28] LABS: Ovalocytes SLIGHT = 2-5 cells HPF (0-1); Platelet Adequacy Comment Platelets Decreased; Polychromasia SLIGHT = 2-3 cells HPF (0-2)
[2025-03-27 14:31] VITALS: BP 113/61
[2025-03-27 17:18] LABS: RBC Count-Automated (BF) 10 /cu.mm
[2025-03-27 17:22] LABS: WBC/Nucleated-Auto (BF) 12 /cu.mm
[2025-03-27 17:49] LABS: BF Segmented Neutrophils 0 %; Cell Count Non Hematic 80 %
== END ==
LOC: ULT 10:50
PROVIDERS: ATTEND Internal Medicine Gastroenterology
PROC: 0W9G3ZX Drainage of Peritoneal Cavity, Percutaneous Approach, Diagnostic (ICD-10-PCS; principal; 2025-03-27)
DX: K74.60 Unspecified cirrhosis of liver (principal); R18.8 Other ascites; Z88.5 Allergy status to narcotic agent; Z88.1 Allergy status to other antibiotic agents; Z88.2 Allergy status to sulfonamides; Z88.8 Allergy status to other drugs, medicaments and biological substances; Z91.048 Other nonmedicinal substance allergy status
CPT/HCPCS: 36592; 49083; 80053; 82042; 83735; 84157; 85025; 85060; 85610; 85730; 87070; 87205; 89051; J1642; P9047

== ENCOUNTER 2025-04-10 10:16 | Day surgery (SDC) | payer OTHER ==
[2025-04-10] MEDS ORDERED: Sodium Bicarbonate 2.5 MEQ/5 ML SDV ONE (11:09)
[2025-04-10] MEDS ORDERED: Lidocaine 1% PF 5 ML VIAL ONE (11:09)
[2025-04-10 13:40] LABS: #Basophils 0.10 10x3/uL (0.0-0.2); #Eosinophils 0.46 10x3/uL (0.0-0.7); #Monocytes 0.93 10x3/uL (0.11-0.59); #Neutrophils 6.35 10x3/uL (1.40-6.50); %Basophils 1.2 % (0.0-1.0); %Eosinophils 5.4 % (0.0-10.0); %Lymphocytes 6.7 % (21.0-51.0); %Monocytes 11.0 % (0.0-10.0); %Neutrophils 75.1 % (42.0-75.0); Hematocrit 23.8 % (36.0-47.0); Hemoglobin 7.6 g/dL (12.0-16.0); Mean Corpuscular Hemoglobin 26.7 pg (27.0-31.0); Mean Corpuscular Volume 83.5 fL (78.0-98.0); Platelet Count 83 10x3/uL (130-400); Red Blood Cell (RBC) Count 2.85 mill/uL (4.20-5.40); White Blood Cell (WBC) Count 8.46 10x3/uL (4.8-10.8)
[2025-04-10 14:00] LABS: INR-International Normal Ratio 1.5; Prothrombin Time 17.9 sec (12.0-14.7)
[2025-04-10 14:01] LABS: PTT 44.4 sec (22.9-36.1)
[2025-04-10 14:23] LABS: ALT (SGPT) 11 U/L (Less than 34); AST (SGOT) 21 U/L (11-34); Albumin 2.8 g/dL (3.1-4.5); Alkaline Phosphatase 113 U/L (40-110); Anion Gap 12 mmol/L (10-20); BUN (Urea Nitrogen) 76 mg/dL (9.8-20.1); Bilirubin, Total 1.1 mg/dL (0.3-1.2); Calc. Creatinine Clearance 0 mL/min (70-130); Calcium 7.8 mg/dL (7.8-10.44); Carbon Dioxide 19 mmol/L (22-29); Chloride 101 mmol/L (98-107); Globulin 3.0 g/dL (2.4-3.5); Glucose 466 mg/dL (70-105); Magnesium 1.8 mg/dL (1.6-2.6); Potassium 3.7 mmol/L (3.5-5.1); Sodium 128 mmol/L (136-145)
[2025-04-10 14:49] LABS: RBC Count-Automated (BF) 20 /cu.mm; WBC/Nucleated-Auto (BF) 10 /cu.mm
[2025-04-10 17:02] LABS: BF Segmented Neutrophils 3 %; Cell Count Non Hematic 77 %
== END 2025-04-10 13:35 | disposition short-term general hospital (02) ==
LOC: ULT 10:16
PROVIDERS: ATTEND Internal Medicine Gastroenterology
PROC: 0W9G3ZZ Drainage of Peritoneal Cavity, Percutaneous Approach (ICD-10-PCS; principal; 2025-04-10)
DX: K74.60 Unspecified cirrhosis of liver (principal); R18.8 Other ascites; Z88.5 Allergy status to narcotic agent; Z88.8 Allergy status to other drugs, medicaments and biological substances; Z88.1 Allergy status to other antibiotic agents; Z88.2 Allergy status to sulfonamides
CPT/HCPCS: 36592; 49083; 80053; 82042; 83735; 84157; 85025; 85060; 85610; 85730; 87070; 87205; 89051; P9047

== ENCOUNTER 2025-04-10 13:30 | Inpatient (IN) | payer OTHER ==
[2025-04-10 15:55] LABS: #Basophils 0.06 10x3/uL (0.0-0.2); #Eosinophils 0.27 10x3/uL (0.0-0.7); #Monocytes 0.65 10x3/uL (0.11-0.59); #Neutrophils 4.42 10x3/uL (1.40-6.50); %Basophils 1.0 % (0.0-1.0); %Eosinophils 4.6 % (0.0-10.0); %Lymphocytes 6.9 % (21.0-51.0); %Monocytes 11.2 % (0.0-10.0); %Neutrophils 76.0 % (42.0-75.0); ALT (SGPT) 10 U/L (Less than 34); AST (SGOT) 18 U/L (11-34); Albumin 3.3 g/dL (3.1-4.5); Alkaline Phosphatase 94 U/L (40-110); Anion Gap 13 mmol/L (10-20); BUN (Urea Nitrogen) 75 mg/dL (9.8-20.1); Bilirubin, Total 1.3 mg/dL (0.3-1.2); Calc. Creatinine Clearance 0 mL/min (70-130); Calcium 8.1 mg/dL (7.8-10.44); Carbon Dioxide 18 mmol/L (22-29); Chloride 102 mmol/L (98-107); Globulin 2.5 g/dL (2.4-3.5); Glucose 486 mg/dL (70-105); Hematocrit 21.7 % (36.0-47.0); Hemoglobin 6.8 g/dL (12.0-16.0); Lipase 26 U/L (8-78); Mean Corpuscular Hemoglobin 26.5 pg (27.0-31.0); Mean Corpuscular Volume 84.4 fL (78.0-98.0); Platelet Count 59 10x3/uL (130-400); Potassium 3.6 mmol/L (3.5-5.1); Red Blood Cell (RBC) Count 2.57 mill/uL (4.20-5.40); Sodium 129 mmol/L (136-145); White Blood Cell (WBC) Count 5.82 10x3/uL (4.8-10.8)
[2025-04-10 15:56] LABS: INR-International Normal Ratio 1.6; Prothrombin Time 18.9 sec (12.0-14.7)
[2025-04-10 15:57] LABS: PTT 45.2 sec (22.9-36.1)
[2025-04-10 15:59] LABS: Bacteria/HPF 4+ HPF (None Seen); CAUTI Indications for Culture Pelvic or flank pain; Glucose, Urine (Dipstick) 300 mg/dL (Negative); Leukocyte 500 Leu/uL (Negative); Protein, Urine (Dipstick) Negative (Neg-Trace); Specific Gravity, Urine 1.013 (1.002-1.036); WBC/HPF Greater than 50 HPF (0-3); Yeast-Budding 1+ HPF (None Seen)
[2025-04-10 16:00] LABS: Urine Culture Reflex Yes Yes
[2025-04-10] MEDS ORDERED: cefTRIAXone (ROCEPHIN) 1 GM VIAL ONE (16:03)
[2025-04-10] MEDS ORDERED: Pantoprazole 40 MG VIAL ONE (16:03)
[2025-04-10] MEDS ORDERED: Ondansetron PF 4 MG/2 ML Vial ONE ×2 (16:12→17:56)
[2025-04-10] MEDS ORDERED: SUCCINYLCHOLINE/SOD CL,ISO/PF 200 MG/10 ML SYRINGE FS ONE (17:18)
[2025-04-10] MEDS ORDERED: Lidocaine 1% PF 5 ML VIAL ONE (17:18)
[2025-04-10] MEDS ORDERED: PROPOFOL 20 ML ONE (17:18)
[2025-04-10] MEDS ORDERED: Dextrose 50% Abboject 50 ML SYRINGE SLOW IVP PRN (18:39)
[2025-04-10] MEDS ORDERED: Glucagon 1 MG/ML KIT IM PRN (18:39)
[2025-04-10 21:08] VITALS: BMI 24.9
[2025-04-10] MEDS: Octreotide Acetate 1,250 MCG in Sodium Chloride 0.9% 250 ML 250 ML IVPB SCH (21:30)
[2025-04-10 22:15] LABS: Hematocrit 25.6 % (36.0-47.0); Hemoglobin 8.1 g/dL (12.0-16.0); Platelet Count 72 10x3/uL (130-400)
[2025-04-10 22:46] LABS: Actual Bicarbonate (HCO3v) 15.8 mEq/L (22-28); Base Excess -6.6 mEq/L (-2.0 to +3.0); Calcium, Ionized (venous) 1.01 mmol/L (1.16-1.32); Chloride (VBG) 103 mmol/L (98-106); Hematocrit-VBG 27 % (36.0-47.0); Hemoglobin (Hb) 9.3 g/dL (11.7-16.0); Potassium (VBG) 3.94 mmol/L (3.70-5.30); Sodium 129 mmol/L (133-146)
[2025-04-10] MEDS: Pantoprazole 40 MG VIAL IVP SCH (23:06)
[2025-04-11 03:33] LABS: #Basophils Less than 0.03 10x3/uL (0.0-0.2); #Eosinophils Less than 0.03 10x3/uL (0.0-0.7); #Monocytes 0.07 10x3/uL (0.11-0.59); #Neutrophils 4.13 10x3/uL (1.40-6.50); %Basophils 0.5 % (0.0-1.0); %Eosinophils 0.0 % (0.0-10.0); %Lymphocytes 3.8 % (21.0-51.0); %Monocytes 1.6 % (0.0-10.0); %Neutrophils 93.2 % (42.0-75.0); Hematocrit 24.0 % (36.0-47.0); Hemoglobin 7.8 g/dL (12.0-16.0); Mean Corpuscular Hemoglobin 27.3 pg (27.0-31.0); Mean Corpuscular Volume 83.9 fL (78.0-98.0); Platelet Count 61 10x3/uL (130-400); Red Blood Cell (RBC) Count 2.86 mill/uL (4.20-5.40); White Blood Cell (WBC) Count 4.43 10x3/uL (4.8-10.8)
[2025-04-11 04:21] LABS: ALT (SGPT) 10 U/L (Less than 34); AST (SGOT) 22 U/L (11-34); Albumin 3.0 g/dL (3.1-4.5); Alkaline Phosphatase 89 U/L (40-110); Anion Gap 12 mmol/L (10-20); BUN (Urea Nitrogen) 68 mg/dL (9.8-20.1); Bilirubin, Total 3.2 mg/dL (0.3-1.2); Calc. Creatinine Clearance 32 mL/min (70-130); Calcium 8.1 mg/dL (7.8-10.44); Carbon Dioxide 20 mmol/L (22-29); Chloride 104 mmol/L (98-107); Globulin 2.5 g/dL (2.4-3.5); Glucose 349 mg/dL (70-105); Potassium 4.3 mmol/L (3.5-5.1); Sodium 132 mmol/L (136-145)
[2025-04-11] MEDS: Magnesium 2 GM/50 ML(in water) 2 GM in Premix 1 BAG IVPB SCH (12:58)
[2025-04-11] MEDS: Insulin Glargine 30 UNITS/0.3 ML VIAL SC SCH (12:58)
[2025-04-11] MEDS ORDERED: cefTRIAXone\\ROCEPHIN 1 GM in Sodium Chloride 0.9% 100 ML IVPB SCH (17:45)
[2025-04-11] MEDS: cefTRIAXone\\ROCEPHIN 1 GM in Sodium Chloride 0.9% 100 ML IVPB SCH (17:53)
[2025-04-11] MEDS: Lactulose 10 GM/15 ML Oral Solution PR SCH ×2 (21:08)
[2025-04-12 05:56] LABS: #Basophils 0.04 10x3/uL (0.0-0.2); #Eosinophils 0.15 10x3/uL (0.0-0.7); #Monocytes 0.45 10x3/uL (0.11-0.59); #Neutrophils 4.71 10x3/uL (1.40-6.50); %Basophils 0.7 % (0.0-1.0); %Eosinophils 2.6 % (0.0-10.0); %Lymphocytes 6.3 % (21.0-51.0); %Monocytes 7.9 % (0.0-10.0); %Neutrophils 82.2 % (42.0-75.0); Hematocrit 22.9 % (36.0-47.0); Hemoglobin 7.2 g/dL (12.0-16.0); Mean Corpuscular Hemoglobin 27.4 pg (27.0-31.0); Mean Corpuscular Volume 87.1 fL (78.0-98.0); Platelet Count 65 10x3/uL (130-400); Red Blood Cell (RBC) Count 2.63 mill/uL (4.20-5.40); White Blood Cell (WBC) Count 5.73 10x3/uL (4.8-10.8)
[2025-04-12 06:06] LABS: ALT (SGPT) 10 U/L (Less than 34); AST (SGOT) 23 U/L (11-34); Albumin 2.9 g/dL (3.1-4.5); Alkaline Phosphatase 80 U/L (40-110); Anion Gap 13 mmol/L (10-20); BUN (Urea Nitrogen) 82 mg/dL (9.8-20.1); Bilirubin, Total 0.9 mg/dL (0.3-1.2); Calc. Creatinine Clearance 27 mL/min (70-130); Calcium 8.0 mg/dL (7.8-10.44); Carbon Dioxide 17 mmol/L (22-29); Chloride 104 mmol/L (98-107); Globulin 2.5 g/dL (2.4-3.5); Glucose 151 mg/dL (70-105); Magnesium 1.8 mg/dL (1.6-2.6); Potassium 4.9 mmol/L (3.5-5.1); Sodium 129 mmol/L (136-145)
[2025-04-12] MEDS: Pantoprazole 80 MG, Admixture Fee 1 EACH in Sodium Chloride 0.9% 100 ML IVPB SCH (06:37)
[2025-04-12] MEDS: Octreotide Acetate 1,250 MCG in Sodium Chloride 0.9% 250 ML 250 ML IVPB SCH (09:26)
[2025-04-12] MEDS: Insulin Glargine 30 UNITS/0.3 ML VIAL SC SCH (09:31)
[2025-04-13] MEDS: Acetaminophen 325 MG TAB PO SCH (01:56)
[2025-04-13 03:57] LABS: #Basophils 0.04 10x3/uL (0.0-0.2); #Eosinophils 0.20 10x3/uL (0.0-0.7); #Monocytes 0.51 10x3/uL (0.11-0.59); #Neutrophils 3.35 10x3/uL (1.40-6.50); %Basophils 0.9 % (0.0-1.0); %Eosinophils 4.5 % (0.0-10.0); %Lymphocytes 6.8 % (21.0-51.0); %Monocytes 11.5 % (0.0-10.0); %Neutrophils 75.8 % (42.0-75.0); Hematocrit 23.5 % (36.0-47.0); Hemoglobin 7.4 g/dL (12.0-16.0); Mean Corpuscular Hemoglobin 27.4 pg (27.0-31.0); Mean Corpuscular Volume 87.0 fL (78.0-98.0); Platelet Count 66 10x3/uL (130-400); Red Blood Cell (RBC) Count 2.70 mill/uL (4.20-5.40); White Blood Cell (WBC) Count 4.42 10x3/uL (4.8-10.8)
[2025-04-13 04:33] LABS: ALT (SGPT) 13 U/L (Less than 34); AST (SGOT) 30 U/L (11-34); Albumin 2.8 g/dL (3.1-4.5); Alkaline Phosphatase 78 U/L (40-110); Anion Gap 12 mmol/L (10-20); BUN (Urea Nitrogen) 72 mg/dL (9.8-20.1); Bilirubin, Total 0.7 mg/dL (0.3-1.2); Calc. Creatinine Clearance 34 mL/min (70-130); Calcium 7.5 mg/dL (7.8-10.44); Carbon Dioxide 18 mmol/L (22-29); Chloride 106 mmol/L (98-107); Globulin 2.5 g/dL (2.4-3.5); Glucose 92 mg/dL (70-105); Potassium 4.7 mmol/L (3.5-5.1); Sodium 131 mmol/L (136-145)
[2025-04-13] MEDS: Lactulose 20 GM (30 mL) UDCUP PO SCH (09:13)
[2025-04-13] MEDS: Pantoprazole 40 MG VIAL IVP SCH (09:14)
[2025-04-13] MEDS: BuPROPion XL 150 MG ER.TAB PO SCH (14:18)
[2025-04-13] MEDS: Transdermal Patch Removal TOP SCH (14:39)
[2025-04-13] MEDS: Ferrous Sulfate 325 MG TAB PO SCH (16:51)
[2025-04-13] MEDS: Mometasone 100 MCG HFA INHALER (RT USE) INH SCH (18:53)
[2025-04-13] MEDS: Rifaximin 550 MG TAB PO SCH (21:49)
[2025-04-14] MEDS: Baclofen 10 MG TAB PO PRN (00:32)
[2025-04-14] MEDS: Acetaminophen 325 MG TAB PO SCH (00:32)
[2025-04-14 04:56] LABS: #Basophils 0.07 10x3/uL (0.0-0.2); #Eosinophils 0.43 10x3/uL (0.0-0.7); #Monocytes 0.68 10x3/uL (0.11-0.59); #Neutrophils 3.08 10x3/uL (1.40-6.50); %Basophils 1.4 % (0.0-1.0); %Eosinophils 8.8 % (0.0-10.0); %Lymphocytes 12.1 % (21.0-51.0); %Monocytes 14.0 % (0.0-10.0); %Neutrophils 63.3 % (42.0-75.0); Hematocrit 26.3 % (36.0-47.0); Hemoglobin 8.3 g/dL (12.0-16.0); Mean Corpuscular Hemoglobin 27.2 pg (27.0-31.0); Mean Corpuscular Volume 86.2 fL (78.0-98.0); Platelet Count 68 10x3/uL (130-400); Red Blood Cell (RBC) Count 3.05 mill/uL (4.20-5.40); White Blood Cell (WBC) Count 4.87 10x3/uL (4.8-10.8)
[2025-04-14 05:18] LABS: ALT (SGPT) 14 U/L (Less than 34); AST (SGOT) 35 U/L (11-34); Albumin 2.9 g/dL (3.1-4.5); Alkaline Phosphatase 86 U/L (40-110); Anion Gap 10 mmol/L (10-20); BUN (Urea Nitrogen) 61 mg/dL (9.8-20.1); Bilirubin, Total 0.6 mg/dL (0.3-1.2); Calc. Creatinine Clearance 34 mL/min (70-130); Calcium 7.7 mg/dL (7.8-10.44); Carbon Dioxide 19 mmol/L (22-29); Chloride 106 mmol/L (98-107); Globulin 2.5 g/dL (2.4-3.5); Glucose 93 mg/dL (70-105); Potassium 5.1 mmol/L (3.5-5.1); Sodium 130 mmol/L (136-145)
[2025-04-14] MEDS: Fosfomycin 3 GM/Packet PO SCH (09:05)
[2025-04-14] MEDS: Sodium Bicarbonate Tab 325 MG TAB PO SCH (09:08)
[2025-04-14] MEDS: Cyanocobalamin (Vitamin B-12) 1,000 MCG TAB PO SCH (09:08)
[2025-04-14] MEDS: Folic Acid 1 MG TAB PO SCH (09:08)
[2025-04-14] MEDS: Cholecalciferol 1,000 UNITS (25 MCG) TAB PO SCH (09:09)
[2025-04-14] MEDS: Acetaminophen 500 MG TAB PO PRN (12:43)
[2025-04-14] MEDS: cefTRIAXone\\ROCEPHIN 1 GM in Sodium Chloride 0.9% 100 ML IVPB SCH (13:40)
[2025-04-14 15:31] VITALS: BP 136/66; TEMP 97.7
[2025-04-15] MEDS ORDERED: BuPROPion XL 150 MG ER.TAB PO SCH (09:00)
[2025-04-15] MEDS ORDERED: Calcitriol 0.25 MCG CAP PO SCH (09:00)
== END 2025-04-14 14:50 | disposition home or self-care (01) | DRG 300 ==
LOC: ERS 13:30 → SDC/OP 16:59 → 2NO 17:01 → IMCU/EMU 22:36 → MSONC 04-12 14:03
PROVIDERS: ADMIT Student in an Organized Health Care Education/Training Program; ATTEND Student in an Organized Health Care Education/Training Program
PROC: 6A550Z2 Pheresis of Platelets, Single (ICD-10-PCS; principal; 2025-04-10)
PROC: 30233N1 Transfusion of Nonautologous Red Blood Cells into Peripheral Vein, Percutaneous Approach (ICD-10-PCS; 2025-04-10)
PROC: 3E03329 Introduction of Other Anti-infective into Peripheral Vein, Percutaneous Approach (ICD-10-PCS; 2025-04-10)
PROC: XW0DXF5 Introduction of Other New Technology Therapeutic Substance into Mouth and Pharynx, External Approach, New Technology Group 5 (ICD-10-PCS; 2025-04-14)
DX: I86.4 Gastric varices (principal); B15.9 Hepatitis A without hepatic coma; D62 Acute posthemorrhagic anemia; K76.6 Portal hypertension; D68.9 Coagulation defect, unspecified; E87.1 Hypo-osmolality and hyponatremia; N39.0 Urinary tract infection, site not specified; N18.4 Chronic kidney disease, stage 4 (severe); D68.8 Other specified coagulation defects; I85.10 Secondary esophageal varices without bleeding; K31.819 Angiodysplasia of stomach and duodenum without bleeding; K31.89 Other diseases of stomach and duodenum; D69.6 Thrombocytopenia, unspecified; D63.1 Anemia in chronic kidney disease; K21.9 Gastro-esophageal reflux disease without esophagitis; E11.65 Type 2 diabetes mellitus with hyperglycemia; Z91.048 Other nonmedicinal substance allergy status; Z88.8 Allergy status to other drugs, medicaments and biological substances; Z88.5 Allergy status to narcotic agent; Z88.2 Allergy status to sulfonamides; Z79.899 Other long term (current) drug therapy; Z79.4 Long term (current) use of insulin; Z79.891 Long term (current) use of opiate analgesic; K70.31 Alcoholic cirrhosis of liver with ascites; J45.909 Unspecified asthma, uncomplicated; Z88.1 Allergy status to other antibiotic agents
CPT/HCPCS: 36415; 36416; 36430; 36592; 49083; 71045; 80053; 81001; 82010; 82042; 82805; 83605; 83690; 83735; 84157; 85025; 85060; 85610; 85730; 86850; 86900; 86901; 87070; 87077; 87086; 87186; 87205; 89051; 93005; 94664; 96365; 96375; 96376; J0696; J1100; J1815; J2270; J2354; J2405; J2470; J2704; J3010; J3475; J7050; J7120; P9016; P9035; P9047

== ENCOUNTER 2025-04-17 10:25 | Day surgery (SDC) | payer OTHER ==
[2025-04-17] MEDS ORDERED: Lidocaine 1% PF 5 ML VIAL ONE (10:31)
[2025-04-17] MEDS ORDERED: Sodium Bicarbonate 2.5 MEQ/5 ML SDV ONE (10:32)
[2025-04-17 14:33] LABS: RBC Count-Automated (BF) 0 /cu.mm; WBC/Nucleated-Auto (BF) 29 /cu.mm
[2025-04-17 15:44] LABS: BF Segmented Neutrophils 3 %; Cell Count Non Hematic 77 %
== END 2025-04-17 12:45 | disposition home or self-care (01) ==
LOC: ULT 10:25
PROVIDERS: ATTEND Internal Medicine Gastroenterology
PROC: 0W9G3ZZ Drainage of Peritoneal Cavity, Percutaneous Approach (ICD-10-PCS; principal; 2025-04-17)
DX: K74.60 Unspecified cirrhosis of liver (principal); R18.8 Other ascites; Z88.5 Allergy status to narcotic agent; Z88.2 Allergy status to sulfonamides; Z88.8 Allergy status to other drugs, medicaments and biological substances; Z91.048 Other nonmedicinal substance allergy status
CPT/HCPCS: 49083; 82042; 85060; 87070; 87205; 89051; J1642; P9047

== ENCOUNTER → 2025-05-01 | Day surgery (SDC) | payer OTHER ==
[~2025-05-01] MED LIST changes: +Sodium Bicarbonate 2.5 MEQ/5 ML SDV ONE
[2025-05-01] MEDS: Albumin 25% 25 GM (100 mL) BOT IVPB SCH (11:40)
[2025-05-01 12:14] LABS: ALT (SGPT) 16 U/L (Less than 34); AST (SGOT) 30 U/L (11-34); Albumin 3.0 g/dL (3.1-4.5); Alkaline Phosphatase 130 U/L (40-110); Anion Gap 18 mmol/L (10-20); BUN (Urea Nitrogen) 69 mg/dL (9.8-20.1); Bilirubin, Total 1.2 mg/dL (0.3-1.2); Calc. Creatinine Clearance 0 mL/min (70-130); Calcium 8.1 mg/dL (7.8-10.44); Carbon Dioxide 18 mmol/L (22-29); Chloride 104 mmol/L (98-107); Globulin 2.5 g/dL (2.4-3.5); Glucose 300 mg/dL (70-105); Magnesium 1.9 mg/dL (1.6-2.6); Potassium 3.6 mmol/L (3.5-5.1); Sodium 136 mmol/L (136-145)
[2025-05-01 12:29] LABS: #Basophils 0.08 10x3/uL (0.0-0.2); #Eosinophils 0.62 10x3/uL (0.0-0.7); #Monocytes 0.75 10x3/uL (0.11-0.59); #Neutrophils 4.05 10x3/uL (1.40-6.50); %Basophils 1.3 % (0.0-1.0); %Eosinophils 10.0 % (0.0-10.0); %Lymphocytes 10.7 % (21.0-51.0); %Monocytes 12.2 % (0.0-10.0); %Neutrophils 65.6 % (42.0-75.0); Hematocrit 26.9 % (36.0-47.0); Hemoglobin 8.5 g/dL (12.0-16.0); Mean Corpuscular Hemoglobin 27.3 pg (27.0-31.0); Mean Corpuscular Volume 86.5 fL (78.0-98.0); Platelet Count 63 10x3/uL (130-400); Red Blood Cell (RBC) Count 3.11 mill/uL (4.20-5.40); White Blood Cell (WBC) Count 6.17 10x3/uL (4.8-10.8)
[2025-05-01 12:33] LABS: INR-International Normal Ratio 1.5; Prothrombin Time 17.8 sec (12.0-14.7)
[2025-05-01 12:37] LABS: RBC Count-Automated (BF) 0 /cu.mm; WBC/Nucleated-Auto (BF) 57 /cu.mm
[2025-05-01 13:59] LABS: Platelet Adequacy Comment Platelets Decreased; Polychromasia SLIGHT = 2-3 cells HPF (0-2)
[2025-05-01 14:40] LABS: BF Segmented Neutrophils 8 %; Cell Count Non Hematic 62 %
[2025-05-01 15:07] VITALS: BP 115/58
== END ==
LOC: ULT 10:25
PROVIDERS: ATTEND Internal Medicine Gastroenterology
PROC: 0W9G3ZZ Drainage of Peritoneal Cavity, Percutaneous Approach (ICD-10-PCS; principal; 2025-05-01)
DX: K74.60 Unspecified cirrhosis of liver (principal); R18.8 Other ascites; Z88.5 Allergy status to narcotic agent; Z88.1 Allergy status to other antibiotic agents; Z88.2 Allergy status to sulfonamides; Z88.8 Allergy status to other drugs, medicaments and biological substances
CPT/HCPCS: 36592; 49083; 80053; 82042; 83735; 84157; 85025; 85060; 85610; 87070; 87205; 89051; J1642; P9047